=== PATIENT | male | born 1945 | race Caucasian/White ===

== ENCOUNTER 2021-10-31 16:24 | Emergency (ER) | payer MEDICARE, SELFPAY ==
[2021-10-31 16:51] VITALS: BP 149/97; PULSE 82; RESP 18; TEMP 37.7; O2SAT 97; BMI 28.5
--- NOTE | 2021-10-31 17:09 | ED.ABDPAIN ---
HPI - Abdominal Pain General Time Seen by Provider: 17:09 Date Seen: 10/31/21 Chief Complaint: Abdominal Pain Stated Complaint: LOWER LEFT ABDOMINAL PAIN Time Seen by Provider: 10/31/21 17:09 Source: patient, RN notes reviewed and old records reviewed Mode of arrival: ambulatory Limitations: no limitations History of Present Illness HPI narrative: Patient is a very pleasant 76-year-old male with history of polyp removal, most recent colonoscopy 2019, hypertension who comes to the emergency room with left lower quadrant pain. Patient notes the onset of this last evening. It is associated with mild nausea but no vomiting and no change in stools. Patient notes the pain definitely increase if he presses over this area. He does note that movement increases the discomfort as well. He has not taken any medications at this point. He denies fever or chills. He does know that he has a history of diverticulosis. No fever chills or COVID symptoms. Upon further discussion he also notes that he has had discomfort in his left low back and flank for approximately 1 week. He thought this was secondary to back problems as he has dealt with this for many years. MD elicited complaint: abdominal pain Pertinent past history: gastrointestinal bleeding (History of duodenal ulcer with hemorrhage) Onset (ago): hour(s) Pain Consistency: constant (Becoming constant.) Location: LLQ Severity: moderate Related Data Home Medications Medication Instructions Recorded Confirmed doxazosin 4 mg tablet 4 mg PO QDAY 08/02/21 10/31/21 losartan 50 mg tablet 50 mg PO QDAY 08/02/21 10/31/21 omeprazole 40 mg capsule,delayed 40 mg PO QDAY 08/02/21 10/31/21 release simvastatin 20 mg tablet 20 mg PO QDAY 08/02/21 10/31/21 Previous Rx's Medication Instructions Recorded ciprofloxacin HCl 500 mg tablet 500 mg PO BID #14 tabs 10/31/21 (Cipro) metronidazole 500 mg tablet 500 mg PO Q8H 7 days #21 tabs 10/31/21 Allergies Allergy/AdvReac Type Severity Reaction Status Date / Time clindamycin Allergy Mild rash Verified 08/06/21 11:14 Review of Systems Status of ROS Reports: 10 or more systems reviewed and unremarkable except as noted in History and below Const Denies: fever, chills or change in weight Eyes Denies: change in vision ENMT Denies: throat pain or difficulty swallowing Cardio Denies: chest pain or shortness of breath with exertion Resp Denies: shortness of breath or cough GI Reports: abdominal pain and nausea; Denies: vomiting, diarrhea, constipation, difficulty swallowing or blood in stool Denies: painful urination, urinary frequency, urinary urgency or blood in urine Musculo Reports: back pain; Denies: extremity pain Integ/Breast Denies: rash Neuro Denies: headache, numbness in extremities or weakness in extremities Endo Denies: excessive urination Pascual/Lymph Denies: easy bruising PFSH PFSH Social History Smoking Status: Never smoker Do you use any of these nicotine containing products: None Second hand tobacco smoke exposure: No How often do you have a drink containing alcohol: monthly or less How often do you have six or more drinks on one occasion: Never AUDIT-C Alcohol total score: 1 Non-prescribed substance use: denies use Exam Narrative: Exam Narrative: History of duodenal ulcer w/ hemorrhage. Abstracted [place] record. BPH (benign prostatic hyperplasia) w/ LUTS. Managed w/ doxazosin. Abstracted [place] record. Essential hypertension Uncontrolled in past. See scanned 03/29/18 [place] ED note. Hyperlipidemia Abstracted [place] record. Pulmonary nodule See scanned CT Chest. Tiny L upper lobe benign process. Abstracted [place] record. Allergic rhinitis Abstracted [place] record. GERD (gastroesophageal reflux disease) Abstracted [place] record. History of adenomatous polyp of colon 08/05/18 & prior. 3Y repeat surveillance. See scanned [place] report. Dysphonia See scanned [place] Videostroboscopy note. MORENITA (obstructive sleep apnea) Does not use CPAP. See scanned 07/24/05 [place] Sleep Study. Const: Vital Signs, click to edit/add: Vital Signs - 24 hr 10/31/21 16:51 Temperature 100 F H Pulse Rate [Pulse Oximeter] 82 Respiratory Rate 18 Blood Pressure [Ri ght Upper Arm] 149/97 H Pulse Oximetry 97 Oxygen Delivery Me thod Room Air Documenting provider has reviewed patient's vital signs: yes Common normals: no apparent distress, average body habitus, oriented x3, no limitations, healthy appearing and alert General appearance: cooperative, comfortable and well kempt HENMT: Common normals: normocephalic and head/scalp atraumatic Head and scalp: normocephalic and atraumatic Mouth: oral and palatal mucosa normal Throat: posterior oropharynx normal Eye: Common normals: PERRL General eye: normal appearance of both eyes Pupil: PERRL Neck & C-Spine: Common normals: full ROM and supple Resp: Common normals: normal respiratory effort and clear to auscultation bilaterally Effort & inspection: able to speak in complete sentences Auscultation: clear to auscultation bilaterally Cardio: Common normals: regular rate and regular rhythm Rate: regular rate Rhythm: regular rhythm GI: Common normals: soft to palpation Palpation: soft and tender Details: LLQ; no mass : Common normals: no CVA tenderness Bladder/kidney exam: no CVA tenderness Back & Pelvis: Common normals: no CVA tenderness Extremity: Common normals: normal to inspection Neuro: Common normals: oriented x3 Sensorium/orientation: alert Speech: speech normal Psych: Common normals: mental status grossly normal and thought process normal Appearance: well kempt Thought process: normal thought process Skin: Common normals: no rashes or lesions noted General skin exam: no rashes or lesions noted Course Course Hospital Course: Patient notes that since last evening he is experiencing left lower quadrant pain. Differential diagnosis does include hernia, kidney stone, diverticulitis, colitis, UTI. We will obtain CBC, comprehensive panel, CRP, urinalysis. Will plan on CT but will await urinalysis to ascertain if the use of contrast or not is appropriate. Reevaluation(s) Reevaluation #1: Patient notes that he is feeling better after Toradol. He is informed that he has a normal white count but an elevated CRP and that his urine is reassuring. We will proceed with the abdominal CT with contrast. Vital Signs Vital signs: Initial Vital Signs Temperature 100 F H 10/31/21 16:51 Temperature Source Temporal Artery Scan 10/31/21 16:51 Pulse Rate 82 10/31/21 16:51 Respiratory Rate 18 10/31/21 16:51 Blood Pressure 149/97 H 10/31/21 16:51 Blood Pressure Mean 114 10/31/21 16:51 Blood Pressure Position Supine 10/31/21 16:51 Pulse Oximetry 97 10/31/21 16:51 Oxygen Delivery Method 10/31/21 16:51 Vital Signs Temperature 100 F H 10/31/21 16:51 Pulse Rate 82 10/31/21 16:51 Respiratory Rate 18 10/31/21 16:51 Blood Pressure 149/97 H 10/31/21 16:51 Pulse Oximetry 97 10/31/21 16:51 Oxygen Delivery Method 10/31/21 16:51 Temperature 100 F H 10/31/21 16:51 Pulse Rate 82 10/31/21 16:51 Respiratory Rate 18 10/31/21 16:51 Blood Pressure 149/97 H 10/31/21 16:51 Pulse Oximetry 97 10/31/21 16:51 Oxygen Delivery Method 10/31/21 16:51 MDM - Abdominal Pain MDM Narrative Medical decision making narrative: 1. Diverticulitis-CT confirmed diverticulitis without evidence of perforation or fluid collection. Patient be treated Cipro 500 mg p.o. b.i.d. and Flagyl 500 mg p.o. t.i.d.. First dose of both medications given here tonight as are instant meds doses not have Flagyl. Recommend bland foods and recheck with primary clinic nearing the end of antibiotic regimen for 7 days. If patient has ongoing pain may wish to extend that to 10-14 days of antibiotics. 2. Abdominal pain-very responsive to Toradol. Patient's pain is coming back at this time. Will suggest the use of ibuprofen as needed at home. Will also give him small amount of Vicodin 5/325, 1-2 tabs p.o. q.4-6 hours p.r.n. number 12 with no refills out of instant meds. Suggest the use of a stool softener as this is a constipating medication. 3. Disposition-home with . Patient is able to take p.o. without difficulty. Return to the ER for further evaluation for vomiting, fever, increasing pain and as needed. Medical Records Attestation: I reviewed the patient's medical records. Lab Data Attestation: I reviewed the patient's lab results. Labs: Lab Results 10/31/21 10/31/21 10/31/21 Range/Units 17:10 17:42 17:42 WBC 8.62 (4.50-11.00) K/uL RBC 4.65 (4.30-5.90) m/uL Hgb 13.6 (13.5-17.5) gm/dL Hct 40.5 (37.0-53.0) % MCV 87 (80-100) fL MCH 29 (26-34) pg MCHC 34 (32-36) gm/dL RDW Coeff of Orion 13.0 (11.5-15.5) % Plt Count 140 (140-440) K/uL Neut % (Auto) 75.9 H (42.0-72.0) % Lymph % (Auto) 14.3 L (20-44) % [place] % (Auto) 8.9 (0.0-11.0) % Eos % (Auto) 0.5 (0.0-7.0) % Baso % (Auto) 0.3 (0.0-3.0) % Neut # (Auto) 6.50 (1.7-7.0) K/uL Lymph # (Auto) 1.20 (0.90-2.90) K/uL [place] # (Auto) 0.80 (0.00-0.90) K/UL Eos # (Auto) 0.04 (0.00-0.50) K/uL Baso # (Auto) 0.03 (0.00-0.30) K/uL Abs Immat Gran (auto) 0.01 (0.00-0.30) K/uL Sodium 137 (135-149) mmol/L Potassium 3.8 (3.6-5.1) mmol/L Chloride 104 (96-114) mmol/L Carbon Dioxide 24 (20-32) mmol/L BUN 13 (7-30) mg/dL Creatinine 1.1 (0.5-1.5) mg/dL Estimated Creat Clear 57.13 Estimated GFR 70 ml/min Glucose 101 (60-115) mg/dL Calcium 9.1 (8.4-10.6) mg/dL Total Bilirubin 0.7 (0.1-1.5) mg/dL AST 27 (12-35) U/L ALT 21 (4-50) U/L Alkaline Phosphatase 118 (40-150) U/L C-Reactive Protein 3.2 H (0.5-1.0) mg/dL Total Protein 7.8 (6.0-8.3) g/dL Albumin 4.7 (3.3-5.0) g/dL Urine Color Yellow (Yellow) Urine Appearance Clear (Clear) Urine pH 5.5 (5.0-8.5) Ur Specific [place] 1.010 (1.000-1.030) Urine Protein Negative (Negative) Urine Glucose (UA) Negative (Negative) Urine Ketones Negative (Negative) Urine Blood 1+ A (Negative) Urine Nitrite Negative (Negative) Urine Bilirubin Negative (Negative) Urine Urobilinogen 0.2 (0.2-1.0) Ur Leukocyte Esterase Negative (Negative) Urine RBC 2-5 A (0-2) Urine WBC 0-2 (0-5) Ur Squamous Epith Cells None (None-Few) Urine Bacteria None (None) Imaging Data CT scan - abdomen: Attestation: I have reviewed the pertinent imaging results. My impression: Thickening of the sigmoid colon. No free air. Radiologist's impression: ?Diverticulitis of the distal descending and proximal sigmoid colon. No drainable fluid collection or extraluminal air. Discharge Plan Discharge Clinical Impression: Diverticulitis Patient Disposition: Home, Self-Care Condition: Improved Additional Instructions: For pain: You may use ibuprofen as needed. For pain not relieved by ibuprofen you may use [place] also known as hydrocodone or Vicodin. This may cause constipation so you may want to take it with a stool softener. For antibiotics we will have a use Flagyl 500 mg 3 times a day. Cipro 500 mg twice a day. Return to the emergency room for worsening symptoms. Follow up with primary MD or 1 of his partners for recheck at the end of your antibiotic dosing. Make sure to schedule for colonoscopy in the near future to have this area checked out. Prescriptions: New metronidazole 500 mg tablet 500 mg PO Q8H 7 Days Qty: 21 0RF ciprofloxacin HCl [Cipro] 500 mg tablet 500 mg PO BID Qty: 14 0RF No Action losartan 50 mg tablet 50 mg PO QDAY omeprazole 40 mg capsule,delayed release(DR/EC) 40 mg PO QDAY doxazosin 4 mg tablet 4 mg PO QDAY simvastatin 20 mg tablet 20 mg PO QDAY Follow Up/Referrals: Mauri Aragon MD [Primary Care Provider] - Stand Alone Forms: [facility] Info Instructions
[2021-10-31] MEDS: KETOROLAC 15 MG/ML inj IVP (17:46)
[2021-10-31] MEDS: 0.9 % SODIUM CHLORIDE 1000 ml 1,000 ML IV (17:46)
[2021-10-31 17:54] LABS: Basophils Absolute Auto 0.03 K/uL (0.00-0.30); Basophils Percent Auto 0.3 % (0.0-3.0); Eosinophils Absolute Auto 0.04 K/uL (0.00-0.50); Eosinophils Percent Auto 0.5 % (0.0-7.0); Hematocrit 40.5 % (37.0-53.0); Hemoglobin* 13.6 gm/dL (13.5-17.5); Immature Granulocytes Abs Auto 0.01 K/uL (0.00-0.30); Lymphocytes Percent Auto 14.3 % (20-44); Mean Corpuscular HGB Conc 34 gm/dL (32-36); Mean Corpuscular Hemoglobin 29 pg (26-34); Mean Corpuscular Volume 87 fL (80-100); Monocytes Percent Auto 8.9 % (0.0-11.0); Neutrophils Percent Auto 75.9 % (42.0-72.0); Platelet Count* 140 K/uL (140-440); Red Blood Count 4.65 m/uL (4.30-5.90); White Blood Count* 8.62 K/uL (4.50-11.00)
[2021-10-31 18:04] LABS: Appearance Urine Clear (Clear); Bilirubin Urine Negative (Negative); Blood Urine 1+ (Negative); Color Urine Yellow (Yellow); Glucose Urine Negative (Negative); Ketones Urine Negative (Negative); Leukocyte Esterase Urine Negative (Negative); Nitrite Urine Negative (Negative); Protein Urine Negative (Negative); Urobilinogen Urine 0.2 (0.2-1.0); pH Urine 5.5 (5.0-8.5)
[2021-10-31 18:09] LABS: Albumin* 4.7 g/dL (3.3-5.0); Chloride* 104 mmol/L (96-114)
[2021-10-31 18:10] LABS: Potassium* 3.8 mmol/L (3.6-5.1); Slide Review Reflex No; Sodium* 137 mmol/L (135-149)
[2021-10-31 18:12] LABS: Creatinine* 1.1 mg/dL (0.5-1.5); Est. Creatinine Clearance* 57.13; Estimated Glomerular Filt Rate 70 ml/min
[2021-10-31 18:13] LABS: Alanine Aminotransferase* 21 U/L (4-50); Alkaline Phosphatase* 118 U/L (40-150); Aspartate Amino Transferase* 27 U/L (12-35); Bilirubin Total* 0.7 mg/dL (0.1-1.5); Blood Urea Nitrogen* 13 mg/dL (7-30); Calcium* 9.1 mg/dL (8.4-10.6); Carbon Dioxide* 24 mmol/L (20-32); Glucose* 101 mg/dL (60-115); Total Protein* 7.8 g/dL (6.0-8.3)
[2021-10-31 18:15] LABS: WBC Urine 0-2 (0-5)
[2021-10-31 18:16] LABS: C Reactive Protein* 3.2 mg/dL (0.5-1.0)
--- NOTE | 2021-10-31 18:22 | CRLHL7_ITS ---
For Patients: As a result of the Century Cures Act, medical imaging exams and procedure reports are released immediately into your electronic medical record. You may view this report before your referring provider. If you have questions, please contact your health care provider. INDICATION: Left lower quadrant pain. TECHNIQUE: CT abdomen and pelvis acquired with 95 mL Isovue 370 IV contrast. Coronal and sagittal reformats were generated. COMPARISON: None. FINDINGS: Lower chest: Linear bibasilar opacities are suggestive of scarring. Small sliding hiatal hernia. Liver: Mildly decreased attenuation could indicate steatosis. Gallbladder and bile ducts: Unremarkable. No stones or inflammation. No biliary dilation. Spleen: Unremarkable. Splenule in the hilum. Pancreas: Unremarkable. Adrenal glands: Unremarkable. No nodules. Kidneys and Ureters: Unremarkable. No suspicious masses, stones, or hydronephrosis. Lymph Nodes and Retroperitoneum: Unremarkable. Vasculature: Small amount of scattered atherosclerotic calcifications. No aneurysmal dilation. GI tract: Numerous diverticula project from the colon. A short segment of distal descending and proximal sigmoid colon shows mucosal thickening, with adjacent mesenteric stranding. Bowel loops are normal in caliber. Normal appendix. Peritoneum/Abdominal Wall: Unremarkable. No mass or infiltration. No free air or free fluid. Fat containing left inguinal hernia. Pelvic Viscera: Unremarkable. Bladder: Unremarkable. 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 Multilevel degenerative changes. No aggressive appearing lytic or blastic lesions. IMPRESSION: 1. Diverticulitis of the distal descending and proximal sigmoid colon. No drainable fluid collection or extraluminal air. 2. Chronic changes as above. Please note that all CT scans at this facility use dose modulation, iterative reconstruction, and/or weight-based dosing when appropriate to reduce radiation dose to as low as reasonably achievable. Dictated by Hugo So MD @ 10/31/2021 7:40:12 PM (Electronically Signed)
--- NOTE | 2021-10-31 18:24 | ED.NURSE ---
after given the toradol 15 mg IVP patient is feeling better rated 1/10 scale if no pressure to abdomen and if pressure to LLQ would rate 3/10 scale pain is much better.
[2021-10-31] MEDS: CIPROFLOXACIN 500 MG TABLET PO (20:09)
[2021-10-31] MEDS: metroNIDAZOLE 500 MG TABLET PO (20:09)
[2021-10-31 20:14] VITALS: BP 136/88; PULSE 76; RESP 16; TEMP 37.2
--- OUTSIDE RECORDS SUMMARY | 2021-11-04 10:34 | XMS_ITS | Encounter Summary ---
:1945 Author Organization [facility] Address Formerly [facility] [place] [address] Care Team Providers Name Role Phone Raghavendra Deras MD Primary Care Provider Unavailable Raghavendra Deras MD Unavailable Unavailable Reason for Visit Reason Onset Date Comments Refill Request 03/16/2019 Encounter Details Date Type Department Care Team Description 03/16/2019 MyC Refill [facility] Raghavendra Deras Ra, MD Refill Request [address] [phone] Social History Tobacco Use Types Packs/Day Years Used Date Former Smoker Cigarettes 0.5 20 Quit: 02/05/18 85 Smokeless Tobacco: Never Used Alcohol Use Standard Drinks/Week Comments Yes 1.7 (1 standard drink = 0.6 oz pure alco hol) occasional Alcohol Habits Answer Date Recorded How often do you have a drink containing alcohol? Not asked How many drinks containing alcohol do you have on a typical Not asked day when you are drinking? How often do you have six or more drinks on one occasion? 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
--- OUTSIDE RECORDS SUMMARY | 2021-11-04 10:34 | XMS_ITS | Encounter Summary ---
:1945 Author Organization [facility] Address Pending sale to [facility] 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 losartan (COZAAR) 50 MG tablet [Pharmacy Med Name: LOSARTAN POTASSIUM 50 MG Tablet] Last Written Prescription Date: 04/15/2018 Last Fill Quantity: 90 tablet, # refills: 1 Last office visit: 05/13/2018 with prescribing provider: Braeden Future Office Visit: 90 tablet 1 Sig: TAKE 1 TABLET EVERY DAY Angiotensin-II Receptors Failed - 09/26/2018 4:20 PM Failed - Last blood pressure under 140/90 in past 12 months BP Readings from Last 3 Encounters: 09/04/18 (!) 140/82 08/05/18 104/69 05/13/18 112/72 Passed - Recent (12 mo) or future (30 days) visit within the authorizing provider's specialty Patient had office visit in the last 12 months or has a visit in the next 30 days with authorizing provider or within the authorizing provider's specialty. See Patient Info tab in inbasket, or Choose Columns in Meds & Orders section of the refill encounter. Passed - Medication is active on med list Passed - Patient is age 18 or older Passed - Normal serum creatinine on file in past 12 months Recent Labs Lab Test 05/13/18 1532 05/26/16 1446 CR 1.12 < > -- CREAT -- -- 1.0 < > = values in this interval not displayed. Passed - Normal serum potassium on file in past 12 months Recent Labs Lab Test 05/13/18 1532 POTASSIUM 4.2 documented in this encounter Plan of Treatment Not on filedocumented as of this encounter Visit Diagnoses Diagnosis Essential hypertension Unspecified essential hypertension documented in this encounter Care Teams Marketing Agent Relationship Specialty Start Date End Date Raghavendra Deras MD PCP - General Family Practice 10/07/13 Raghavendra Deras MD Assigned PCP 01/23/16 05/14/21 documented as of this encounter
--- OUTSIDE RECORDS SUMMARY | 2021-11-04 10:34 | XMS_ITS | Encounter Summary ---
:1945 Author Organization [place] Address [address] [facility] 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
--- OUTSIDE RECORDS SUMMARY | 2021-11-04 10:34 | XMS_ITS | Encounter Summary ---
:1945 Author Organization [place] Address [address] 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
--- OUTSIDE RECORDS SUMMARY | 2021-11-04 10:34 | XMS_ITS | Encounter Summary ---
:1945 Author Organization [facility] Address [address] [place] [address]. 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 Initial BP: There were no vitals taken for this visit. Data Unavailable K SANDER documented in this encounter Plan of Treatment Not on filedocumented as of this encounter Visit Diagnoses Diagnosis BP check - Primary Screening for hypertension documented in this encounter Care Teams Hand Thermal Cutter Relationship Specialty Start Date End Date Raghavendra Deras MD PCP - General Family Practice 10/07/13 Raghavendra Deras MD Assigned PCP 01/23/16 05/14/21 documented as of this encounter
--- OUTSIDE RECORDS SUMMARY | 2021-11-04 10:34 | XMS_ITS | Encounter Summary ---
:1945 Author Organization [place] Address [address] [facility] [address] Care Team Providers Name Role Phone Raghavendra Deras MD Primary Care Provider Unavailable Raghavendra Deras MD Unavailable Unavailable Reason for Visit Auth/Cert Specialty Diagnoses / Procedures Referred By Contact Refer red To Contact Gastroenterology Diagnoses PERSONAL HISTORY OF POLYPS Endoscopy Procedures COLONOSCOPY [address] [place] [phone] Phone: Referral ID Status Reason Start Date Expiration Date Visits Requ ested Visits Authorized [id number] 1 1 Encounter Details Date Type Department Care Team Description 08/05/2018 Surgery [facility] Arthur Fajardo MD COLONOSCOPY, FLEXIBLE, [facility] Endoscopy COLON RECTAL SURG WITH LESION REMOVAL [address] [facility] [address] [place] [place] [phone] [address] [phone] [address] [place] [id number] (Wo rk) Surgery Details Date/Time Status Location OR Service Patient Class Case Case Trauma Class Type Case? 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 documented as of this encounter Last Filed Vital Signs Vital Sign Reading Time Taken Comments Blood Pressure 135/66 08/05/2018 11:23 AM CDT Pulse 67 08/05/2018 11:23 AM CDT Temperature - - Respiratory Rate 18 08/05/2018 11:23 AM CDT Oxygen Saturation 97% 08/05/2018 11:23 AM CDT Inhaled Oxygen Concentration - - Weight 90.7 kg (200 lb) 08/05/2018 11:23 AM CDT Height 175.3 cm (5' 9) 08/05/2018 11:23 AM CDT Body Mass Index 29.53 08/05/2018 11:23 AM CDT documented in this encounter Medications at Time of Discharge Medication Sig Dispensed Refills Start Date End Date doxazosin (CARDURA) 4 MG Take 1 tablet (4 90 tablet 3 06/14 tabletIndications: Essential mg) by mouth At hypertension Bedtime fish oil-omega-3 fatty acids Take 2 capsules 90 capsule 0 1000 MG capsule (2 g) by mouth daily PT IS NOW TAKING 1 TAB PER DAY hydrochlorothiazide Take 1 tablet 30 tablet 0 05/13/2018 (HYDRODIURIL) 12.5 MG (12.5 mg) by tabletIndications: Essential mouth daily hypertension Multiple Vitamins-Minerals Take 1 tablet by 0 (CENTRUM SILVER ULTRA MENS mouth daily PO) omeprazole (PRILOSEC) 40 MG Take 1 capsule 90 capsule 2 07/07 capsuleIndications: (40 mg) by mouth History of peptic ulcer daily disease, Gastroesophageal reflux disease, esophagitis presence not specified losartan (COZAAR) 50 MG Take 1 tablet 90 tablet 1 9 09/26/2018 tabletIndications: Essential (50 mg) by mouth hypertension daily simvastatin (ZOCOR) 20 MG Take 1 tablet 90 tablet 3 2 019 03/17/2019 tabletIndications: (20 mg) by mouth Hyperlipidemia LDL goal <130 At Bedtime documented as of this encounter H&P Notes Arthur Fajardo MD - 08/05/2018 11:57 AM CDT Pre-Endoscopy History and Physical Lo Neumann Date of : 1945 Age: [age] year old Date of Procedure: 08/05/2018 Primary care provider: Raghavendra Deras Type of Endoscopy: colonoscopy Reason for Procedure: screening Type of Anesthesia Anticipated: Moderate Sedation HPI: Lo is a 73 year old male who will be undergoing the above procedure. A history and physical has been performed. The patient's medications and allergies have been reviewed. The risks and benefits of the procedure including the risk of bleeding, perforation, and missed lesions as well as the sedation options and risks were discussed with the patient. All questions were answered and informed consent was obtained. Allergies Allergen Reactions ??? Mometasone Furoate Monohydrate gets bloody noses from Nasonex ??? Quinazolines get bloody noses from Flomax No current facility-administered medications for this encounter. Medications Prior to Admission Medication Sig Dispense Refill Last Dose ??? doxazosin (CARDURA) 4 MG tablet Take 1 tablet (4 mg) by mouth At Bedtime 90 tablet 3 08/04/2018 at Unknown time ??? fish oil-omega-3 fatty acids 1000 MG capsule Take 2 capsules (2 g) by mouth daily PT IS NOW TAKING 1 TAB PER DAY 90 capsule 08/04/2018 at Unknown time ??? hydrochlorothiazide (HYDRODIURIL) 12.5 MG tablet Take 1 tablet (12.5 mg) by mouth daily 30 tablet 0 08/04/2018 at Unknown time ??? losartan (COZAAR) 50 MG tablet Take 1 tablet (50 mg) by mouth daily 90 tablet 1 08/05/2018 at Unknown time ??? Multiple Vitamins-Minerals (CENTRUM SILVER ULTRA MENS PO) Take 1 tablet by mouth daily Past Weekat Unknown time ??? omeprazole (PRILOSEC) [address] capsule Take 1 capsule (40 mg) by mouth daily 90 capsule 2 08/04/2018 at Unknown time ??? simvastatin (ZOCOR) 20 MG tablet Take 1 tablet (20 mg) by mouth At Bedtime 90 tablet 3 08/04/2018at Unknown time Patient Active Problem List Diagnosis ??? Actinic keratosis ??? Allergic rhinitis ??? Esophageal reflux ??? SCC (squamous cell carcinoma), face ??? History of peptic ulcer disease ??? Essential hypertension ??? Advanced directives, counseling/discussion ??? Adenomatous polyp of colon ??? Benign prostatic hyperplasia with lower urinary tract symptoms ? ? Hyperlipidemia LDL goal <130 Past Medical History: Diagnosis Date ??? Acute duodenal ulcer with hemorrhage, without mention of obstruction 1997 ??? Arthritis ??? BPH (benign prostatic hyperplasia) ??? Essential hypertension, benign 12/30/2002 ? ? Hyperlipidemia LDL goal < 130 04/15/2014 ? ? Hypertension goal BP (blood pressure) < 140/90 06/24/2010 ??? Pulmonary nodule CT reassuring 2008 ??? SCC (squamous cell carcinoma), face 03/16/2008 Past Surgical History: Procedure Laterality Date ??? COLONOSCOPY 06/05/2013 Procedure: COLONOSCOPY; Surgeon: Matthew Richardson MD; Location: [facility] ??? [facility] COLONOSCOPY THRU STOMA, DIAGNOSTIC 2002 Social History Tobacco Use ??? Smoking status: Former Smoker Packs/day: 0.50 Years: 20.00 Pack years: 10.00 Types: Cigarettes Last attempt to quit: 02/06/1984 Years since quittin.5 ??? Smokeless tobacco: Never Used Substance Use Topics ??? Alcohol use: Yes Alcohol/week: 1.0 oz Comment: occasional Family History Problem Relation Age of Onset ??? Diabetes Maternal Grandmother ??? Cerebrovascular Disease Maternal Grandmother older, 70's or 80's ??? Prostate Cancer Paternal Grandfather not sure ??? Heart Disease Brother stent - 66 ??? Prostate Cancer Brother no cancer, but a produre due reduce the prostate ??? Cancer Sister bone caner/lung cancer ??? Family History Negative Mother ??? Family History Negative Father ??? C.A.D. Maternal Uncle [place] ??? Cancer - colorectal Maternal Uncle ??? Prostate Cancer Other Cousin PHYSICAL EXAM: BP 135/66 Pulse 67 Resp 18 Ht 1.753 m (5' 9) Wt 90.7 kg (200 lb) SpO2 97% BMI 29.53 kg/m?? Estimated body mass index is 29.53 kg/m?? as calculated from the following: Height as of this encounter: 1.753 m (5' 9). Weight as of this encounter: 90.7 kg (200 lb). Mental status - alert and oriented RESP: lungs clear CV: RRR AIRWAY EXAM: Mallampatti Class II (visualization of the soft palate, fauces, and uvula) IMPRESSION ASA Class 2 - Mild systemic disease Signed Electronically by: Arthur Fajardo August 05, 2018 Colorectal Surgery [phone] (office) [phone] (pager) [email or web address] documented in this encounter Plan of Treatment Not on filedocumented as of this encounter Procedures Procedure Name Priority Date/Time Associated Comments Diagnosis SURGICAL PATHOLOGY Routine 08/05/2018 12:05 Resul ts for this EXAM PM CDT procedure are i n the results section. COLONOSCOPY, 08/05/2018 11:53 PERSONAL HISTORY OF FLEXIBLE, WITH LESION AM CDT POLYPS REMOVAL USING SNARE COLONOSCOPY Routine 08/05/2018 11:51 Results for this AM CDT procedure are i n the results section. documented in this encounter Results Surgical pathology exam (08/05/2018 12:05 PM CDT) Component Value Ref Test Analysis Performed At [facility] Range Method Time Signature Copath Report Patient Name: LO NEUMANN MR#: [id number] Specimen #: [id number] Collected: 08/05/2018 Received: 08/05/2018 Reported: 08/06/2018 15:02 Ordering Phy(s): ARTHUR FAJARDO For improved result formatting, select 'View Enhanced Report Format' under Linked Documents section. SPECIMEN(S): A: Colon polyp, ascending B: Rectal polyp FINAL DIAGNOSIS: A: Colon, ascending, polypectomy - Tubular adenomas, no evidence of high-grade dysplasia or i nvasive malignancy B: Rectum, polypectomy - Tubular adenoma - No evidence of high-grade dysplasia or invasive malignancy Electronically signed out by: Yunior Parikh M.D. CLINICAL HISTORY: Personal history of polyps GROSS: A: The specimen is received in formalin with proper patient identification labeled ascending colon polyps x2. ??The specimen consists of two purvis tissue fragments william suring up to 0.2 cm each. ??The specimen is entirely submitted in one cassette. B: The specimen is received in formalin with proper patient identification labeled rectum polyp. ??The specimen consists of purvis polyp measuring up to 0.3 cm. ??The specimen is entirely submitted in one cassette. (Dictated by: Alireza Gordon 08/05/2018 02:23 PM) MICROSCOPIC: Felicity Galeana Microscopic performed The technical component of this testing was completed at the [facility], with the professional compo nent performed at the [facility], [address] [place] [address] ??[phone] ([phone]) CPT Codes: A: 88595-VW6 B: 86597-GM4 COLLECTION SITE: Client: [facility] Location: [place] (S) Specimen (Source) Anatomical Collection Method Collection Time Re ceived Time Location / / Volume Laterality Polyp LARGE INTESTINE 08/05/2018 12:05 (morphologic PART / Unknown PM CDT abnormality) Comment: Cold snare Polyp (morphologic RECTUM STRUCTURE / Unknown 08/06/19 19 12:11 PM CDT abnormality) Comment: Cold snare Arthur MOLINA - SOHAIL Performing Organization Address City/State/ZIP Code Phon e Number [place] COLONOSCOPY (08/05/2018 11:51 AM CDT) Component Value Ref Test Analysis Performed At [facility] Range Method Time Signature COLONOSCOPY [facility] RADIOLOGY [facility] Endoscopy Department RESULTS Patient Name: Lo Neumann ?Procedure Date: 08/05 11:51 AM ? Accou nt Number: [id number] Date of : 1945 ?Admit Type: Out patient Age: 73 ? Room: 1 ? Note Status: Finalized ?Attending MD: Arthur Fajardo MD Total Sedation Time: ?I nstrument Name: [id number] AdultColonoscope Procedure: ?Colonoscopy Indications: ?High ri sk colon cancer surveillance: Personal ?history of colonic po lyps Providers: ?Arthur Fajardo MD, Alana Jose RN Referring MD: ? Raghavendra Deras MD Medicines: ?Midazolam 2 mg IV, Fentanyl 100 micrograms IV. The ? provided 15 minutes of 1:1 continuous bedside ?monitoring. Complications: ?No immediate complications. Procedure: ?Pre-Anesthesia Assessment: ?- Prior to the procedure, a History and Physical ?was performed, and patient medications and ?allergies were reviewed. The patient is competent. ?The risks and benefits of the procedure and the ?sedation options and risks were discussed with the ?patient. All questions were answered and informed ?consent was obtained. Patient identification and ?proposed procedure were verified by the physician ?in the endoscopy suite. Mental Status Examination: ?alert and oriented. Airway Examination: normal ?oropharyngeal airway and neck mobility. Respiratory ?Examination: clear to auscultation. CV Examination: ?normal. Prophylactic Antibiotics: The patient does ?not require prophylactic antibiotics. Prior ?Anticoagulants: The patient has taken no previous ?anticoagulant or antiplatelet agents. ASA Grade ?Assessment: II - A patient with mild systemic ?disease. After reviewing the risks and benefits, ?the patient was deemed in satisfactory condition to ?undergo the procedure. The anesthesia plan was to ?use moderate sedation / analgesia (conscious ?sedation). Immediately prior to administration of ?medications, the patient was re-assessed for ?adequacy to receive sedatives. The heart rate, ?respiratory rate, oxygen saturations, blood ?pressure, adequacy of pulmonary ventilation, and ?response to care were monitored throughout the ?procedure. The physical status of the patient was ?re-assessed after the procedure. ?After obtaining informed consent, the colonoscope ?was passed under direct vision. Throughout the ?procedure, the patient's blood pressure, pulse, and ?oxygen saturations were monitored continuously. The ?Colonoscope was introduced through the anus and ?advanced to the cecum, identified by appendiceal ?orifice and ileocecal valve. The colonoscopy was ?performed without difficulty. The patient tolerated ?the procedure well. The quality of the bowel ?preparation was excellent and adequate to identify ?polyps. ? Findings: ? The perianal and digital rectal examinations were nor mal. Pertinent ? negatives include normal sphincte r tone and no palpable rectal lesions. ? Two sessile polyps were found in the ascending colon. The polyps were 3 ? to 4 mm in size. These polyps wer e removed with a cold snare. Resection ? and retrieval were complete. ? A 4 mm polyp was found in the rectum. The polyp was pedunculated. The ? polyp was removed with a cold snare. Resection and re trieval were ? complete. ? Multiple small and large-mouthed divertic peyton were found in the sigmoid ? colon. There was no evidence of diverticular bleeding . ? The exam was otherwise without abnormality on d irect and retroflexion ? views. ? Impression: ? - Two 3 to 4 mm polyps in the ascending colon, ?removed with a cold snare. Resected and retrieved. ?- One 4 mm polyp (adenomatous) in the rectum, ?removed with a cold snare. Resected and retrieved. ?- Diverticulosis in the sigmoid colon. There was no ?evidence of diverticu lar bleeding. ?- The examination was otherwise normal on direct ?and retroflexion view s. Recommendation: ? - Patient has a contact num jenna available for ?emergencies. The signs and symptoms of potential ?delayed complications were discussed with the ?patient. Return to normal activities tomorrow. ?Written discharge instructions were provided to the ?patient. ?- Resume previous t. ?- Continue present me dications. ?- Await pathology res ults. ?- Repeat colonoscopy in 3 years for surveillance. ? Procedure Code(s): ? --- Professional --- ? 87255, Colonoscopy, flexible; with removal of tumor (s), polyp(s), or ? other lesion(s) by snare technique Diagnosis Code(s): ? --- Professional --- ? K57.30, Diverticulosi s of large intestine without perforation or abscess ? without bleeding ? D12.8, Benign neoplasm of rectum ? D12.2, Benign neoplasm of ascending colon ? Z86.010, Personal history of colonic polyps CPT copyright 2017 [employer]. All rights reserved. The codes documented in this report are prelimin sanaz and upon pre coder review may be revised to meet current compliance requirements. Arthur Fajardo MD 08/05/2018 12:14:14 PM I was physically present for the entire viewing portion of t he exam. Arthur Fajardo MD Number of Addenda: 0 Note Initiated On: 08/05/2018 11:51 AM MRN: ?[id number] Procedure Date: ? 08/05/2018 11:51:36 AM Scope Withdrawal Time: 0 hours 8 minutes 2 seconds Total Procedure Duration: 0 hours 9 minutes 58 seconds Estimated Blood Loss: ? Scope In: 11:58:46 AM Scope Out: 12:08:44 PM Specimen (Source) Anatomical Collection Method Collection Time Re ceived Time Location / / Volume Laterality 08/05/2018 11:51 AM CDT Raghavendra Deras MD PROCEDURES Performing Organization Address City/State/ZIP Code Phon e Number RADIOLOGY RESULTS documented in this encounter Visit Diagnoses Not on filedocumented in this encounter Administered Medications Inactive Administered Medications - up to 3 most recent administrations Medication Order MAR Action Action Date Dose Rate Site diphenhydrAMINE (BENADRYL) capsule 25 mg 25 mg, Oral, EVERY 4 HOURS PRN, itching, Starting on M on 08/05/18 at 1246, Post-procedure diphenhydrAMINE (BENADRYL) injection 25 mg 25 mg, Intravenous, EVERY 4 HOURS PRN, i tching, Starting on 08/05/18 at 1246, Use only if patient cannot take oral. For ordered IV doses 1-50 mg, give IV Push undiluted. Give each 25mg over a minimum of 1 minute. Extend in non-emergency, Post-procedure fentaNYL (PF) (SUBLIMAZE) injection Given 08/05/2018 11:57 AM CDT 100 mcg PRN, Administer over 3-5 Minutes, Starting on Sun08/05/18 at 1157, Intra-procedure lidocaine (LMX4) cream Topical, EVERY 1 HOUR PRN, pain, with VA D insertion or accessing implanted port., Starting on Sun08/05/18 at 1211, Do NOT g deepa if patient has a history of allergy to any local anesthetic or any anupam prod uct. Apply at least 30 minutes prior to VAD insertion or port access. In divided dos es as needed for size of site for insertion with MAX Dose: 2.5 g (?? of 5 g tube), Pre-procedure lidocaine 1 % 0.1-1 mL 0.1-1 mL, Other, EVERY 1 HOUR PRN, mild pain with VAD insertion., Starting on Sun08/05/18 at 1211, Do NOT give if patient has a history o f allergy to any local anesthetic or any anupam product. MAX dose 1 mL subcu taneous OR intradermal in divided doses as needed for VAD insertion., Pre-proced ure midazolam (VERSED) injection Given 08/05/2018 11:59 AM CDT 1 mg Administer over 2 Minutes, PRN, Starting on Sun08/05/18 at 1157, Intra-procedure Given 08/05/2018 11:57 AM CDT 1 mg ondansetron (ZOFRAN) injection 4 mg 4 mg, Intravenous, ONCE PRN, nausea, vomiting, Adminis ter over 2-5 Minutes, Starting on Sun08/05/18 at 1211, For 1 do se, Give in ENDO pre procedure prep area. Irritant. For ordered IV doses 0.1-4 mg, give IV Push undiluted over 2-5 minutes., Pre-procedure ondansetron (ZOFRAN) injection 4 mg 4 mg, Intravenous, EVERY 6 HOURS PRN, nausea, vomiting , Administer over 2-5 Minutes, Starting on Sun08/05/18 at 1246, This is Step 1 of nausea and vomiting management. If nausea not resolved in 15 minutes, go t o Step 2 prochlorperazine (COMPAZINE). Irritant. For ordered IV do ses 0.1-4 mg, give IV Push undiluted over 2-5 minutes., Post-procedure ondansetron (ZOFRAN-ODT) ODT tab 4 mg 4 mg, Oral, EVERY 6 HOURS PRN, nausea, v omiting, Starting on Sun08/05/18 at 1246, This is Step 1 of nausea and vomiting management. If n ausea not resolved in 15 minutes, go to Step 2 prochlorperazine (COMPAZINE). Do not push through foil backing. Peel back foil and gently remove. Place on to ngue immediately. Administration with liquid unnecessary W ith dry hands, peel back foil backing and gently remove tablet; do not push oral d isintegrating tablet through foil backing; administer immediately on tongue and oral disintegrati ng tablet dissolves in seconds; then swallow with saliva; liquid not required ., Post-procedure prochlorperazine (COMPAZINE) injection 5 mg 5 mg, Intravenous, EVERY 6 HOURS PRN, nausea, vomiting , Administer over 1-2 Minutes, Starting on Sun08/05/18 at 1246, This is Step 2 of nausea and vomiting management. If nausea not resolved in 15 minutes, give metoclopramide (REGLAN) if ordered (step 3 of nausea and vomiting m anagement) For ordered IV doses 0.1-10 mg, give IV Push undiluted. Each 5mg over 1 minute., Post- procedure prochlorperazine (COMPAZINE) tablet 5 mg 5 mg, Oral, EVERY 6 HOURS PRN, nausea, v omiting, Starting on Sun08/05/18 at 1246, This is Step 2 of nausea and vomiting management. If n ausea not resolved in 15 minutes, give metoclopramide (REGLAN) if ordered (step 3 of nausea and vomiting management), Post-procedure simethicone 133mg/2mL oral suspension Given 08/05/2018 12:02 PM CDT 1 mL PRN, Starting on Sun08/05/18 at 1202, Intra-procedure sodium chloride (PF) 0.9% PF flush 3 mL 3 mL, Intracatheter, EVERY 1 MIN PRN, li ne flush, for peripheral IV flush post IV meds, Starting on Sun08/05/18 at 1211, Pre-procedure sodium chloride (PF) 0.9% PF flush 3 mL 3 mL, Intracatheter, EVERY 8 HOURS, Firs t dose on Sun08/05/18 at 1215, And Q1H PRN, to lock peripheral IV dormant line., Pre-procedure documented in this encounter Active and Recently Administered Medications Times are shown in CDT. Scheduled Medication Order 08/03/2018 08/04/2018 08/05/2018 0.9% sodium chloride BOLUS 1300 (Canceled Entry - Provider: Orders Generic Provider - Comment: Automatically canceled at discontinue of medication order) Intravenous, 250 mL, ONCE, at 250 mL/hr, Administer over 1 Hours, Sun08/05/18 at 1300, For 1 dose, If systolic blood pressure less than 100 or patient has a headache, Post-procedure sodium chloride (PF) 0.9% PF flush 3 mL 1215 (Canceled Entry - Provider: Orders Generic Provider - Comment: Automatically canceled at discontinue of medication order) 3 mL, Intracatheter, EVERY 8 HOURS, Firs t dose on Sun08/05/18 at 1215, And Q1H PRN, to lock peripheral IV dormant line., Pre-procedure PRN Medication Order 08/03/2018 08/04/2018 08/05/2018 diphenhydrAMINE (BENADRYL) capsule 25 mg(Linked Group 1) 25 mg, Oral, EVERY 4 HOURS PRN, itching, Starting Sun08/05/18 at 1246, Post-procedure diphenhydrAMINE (BENADRYL) injection 25 mg(Linked Group 1) 25 mg, Intravenous, EVERY 4 HOURS PRN, i tching, Starting Sun08/05/18 at 1246, Use only if patient cannot take oral. For ordered IV doses 1-50 mg, give IV Push undiluted. Give each 25mg over a minimum of 1 minute. Extend in non-emergency, Post-procedure fentaNYL (PF) (SUBLIMAZE) injection 1157 (Given - Provider: Alana Jose RN) Administer over 3-5 Minutes, PRN, Starting Sun08/05/18 at 115 7, Intra-procedure flumazenil (ROMAZICON) injection 0.2 mg 0.2 mg, Intravenous, EVERY 1 MIN PRN, be nzodiazepine reversal, over sedation, Administer over 1 Minutes, Starting Sun08/05/18 at 1246, For 12 hours, Give over 15 seconds. If inadequate response after 45 seconds, may repeat up to a MAX total do se of 1 mg. Continue monitoring until discharge criteria are met for a minimum of 2 hours Irritant. For ordered IV doses 0.1-1 mg, give IV Push undiluted. Administer each 0.2mg over 15 seconds., Post-procedure lidocaine (LMX4) cream Topical, EVERY 1 HOUR PRN, pain, with VA D insertion or accessing implanted port., Starting Sun08/05/18 at 1211, Do NOT give if patient has a history of allergy to any local anesthetic or any anupam prod uct. Apply at least 30 minutes prior to VAD insertion or port access. In divided doses as needed for size of site for insertion with MAX Dose: 2.5 g (?? of 5 g tube), Pre-procedure lidocaine 1 % 0.1-1 mL 0.1-1 mL, Other, EVERY 1 HOUR PRN, mild pain with VAD insertion., Starting Sun08/05/18 at 1211, Do NOT give if patient has a history of allergy to any local anesthetic or any anupam product. MAX dose 1 mL subcutaneous OR intradermal in divide d doses as needed for VAD insertion., Pre-procedure May continue current IV fluid if patient has IV fluids infusing until discharge. CONTINUOUS PRN, Starting Sun08/05/18 at 1 246, Until Sun08/05/18 at 1447, Post-procedure midazolam (VERSED) injection 115 7 (Given - Provider: Alana Jose, RN)1159 (Given - Provider: Alana Jose RN) Administer over 2 Minutes, PRN, Starting Sun08/05/18 at 1157, Int ra-procedure naloxone (NARCAN) injection 0.1-0.4 mg 0.1-0.4 mg, Intravenous, EVERY 2 MIN PRN , opioid reversal, Starting Sun08/05/18 at 1246, For 24 hours, For apnea or imminent respiratory arrest: give 0.4 mg IV undiluted Q 2 minutes PRN until desired deg ree of reversal is obtained, stop opioid and notify provider. Continue monitoring until discharge criteria are met for a minimum of 2 hours. For severe sedation, decrease in respiratory depth, quality o r Respiratory Rate less than 8: give 0.1 mg IV Q 2 minutes x 3 doses, stop opioid and notify provider. Try to minimize reversal of analgesia especially in end-of-life patients. Continue monitoring until discharge criteria are met for a minimu m of 2 hours For ordered IV doses 0.1- 2mg give IVP. Give each 0.4mg over 15 seconds in emergency situations. For non- emergent situations further dilute in 9mL of NS to facilitate titration of response., Post-procedure ondansetron (ZOFRAN) injection 4 mg 4 mg, Intravenous, ONCE PRN, nausea, vom iting, Administer over 2-5 Minutes, Starting 08/05/18 at 1211, For 1 dose, Give in ENDO pre procedure prep area. Irritant. For ordered IV doses 0.1-4 mg, give I V Push undiluted over 2-5 minutes., Pre-procedure ondansetron (ZOFRAN) injection 4 mg(Linked Group 2) 4 mg, Intravenous, EVERY 6 HOURS PRN, na usea, vomiting, Administer over 2-5 Minutes, Starting Sun08/05/18 at 1246, This is Step 1 of nausea and vomiting management. If nausea not resolved in 15 minutes, go to Step 2 prochlorperazine (COMPAZINE ). Irritant. For ordered IV doses 0.1-4 mg, give IV Push undiluted over 2-5 minutes., Post-procedure ondansetron (ZOFRAN-ODT) ODT tab 4 mg(Linked Group 2) 4 mg, Oral, EVERY 6 HOURS PRN, nausea, v omiting, Starting 08/05/18 at 1246, This is Step 1 of nausea and vomiting management. If nausea not resolved in 15 minutes, go to Step 2 prochlorperazine (DAVID ZINE). Do not push through foil backing. Peel back foil and gently remove. Place on tongue immediately. Administration with liquid unnecessary With dry hands, peel back foil backing and gently remove ta blet; do not push oral disintegrating ta blet through foil backing; administer immediately on tongue and oral disintegrating tablet dissolves in seconds; then swallow with saliva; liquid not required., Post-procedure prochlorperazine (COMPAZINE) injection 5 mg(Linked Group 3) 5 mg, Intravenous, EVERY 6 HOURS PRN, na usea, vomiting, Administer over 1-2 Minutes, Starting 08/05/18 at 1246, This is Step 2 of nausea and vomiting management. If nausea not resolved in 15 minutes, give metoclopramide (REGLAN) if ordered (step 3 of nausea and vomiting management) For ordered IV doses 0.1-10 mg, give IV Push undiluted. Each 5mg over 1 minute., Post-procedure prochlorperazine (COMPAZINE) tablet 5 mg(Linked Group 3) 5 mg, Oral, EVERY 6 HOURS PRN, nausea, v omiting, Starting 08/05/18 at 1246, This is Step 2 of nausea and vomiting management. If nausea not resolved in 15 minutes, give metoclopramide (REGLAN) if orde red (step 3 of nausea and vomiting management), Post-procedure simethicone 133mg/2mL oral suspension 1202 (Given - Provider: Arthur Fajardo MD - Comment: in scope) PRN, Starting 08/05/18 at 1202, Intra-procedure sodium chloride (PF) 0.9% PF flush 3 mL 3 mL, Intracatheter, EVERY 1 MIN PRN, li ne flush, for peripheral IV flush post IV meds, Starting 08/05/18 at 1211, Pre-procedure sodium chloride (PF) 0.9% PF flush 3 mL 3 mL, Intravenous, EVERY 1 MIN PRN, line flush, after medication administration. For peripheral IV flush post IV meds, Starting 08/05/18 at 1246, Post-procedure Linked Groups Order Group 1: diphenhydrAMINE (BENADRYL) injection 25 mgJump to med 25 mg, Intravenous, EVERY 4 HOURS PRN, i tching, Starting 08/05/18 at 1246
Use only if patient cannot take oral. For ordered IV doses 1-50 mg, give IV Push undiluted. Give each 25mg o gwendolyn a minimum of 1 minute. Extend in non -emergency
Post-procedure Or diphenhydrAMINE (BENADRYL) capsule 25 mgJump to med 25 mg, Oral, EVERY 4 HOURS PRN, itching, Starting 08/05/18 at 1246, Post-procedure Group 2: ondansetron (ZOFRAN-ODT) ODT tab 4 mgJump to med 4 mg, Oral, EVERY 6 HOURS PRN, nausea, v omiting, Starting 08/05/18 at 1246
This is Step 1 of nausea and vomiting management. If nausea not resolved in 15 minutes, go to Manish p 2 prochlorperazine (COMPAZINE). Do not push through foil backing. Peel back foil and gently remove. Place on tongue immediately. Administration with liquid unnecessary With dry hands, peel ba ck foil backing and gently remove tablet ; do not push oral disintegrating tablet through foil backing; administer immediately on tongue and oral disintegrating tablet dissolves in seconds; then swallow with saliva; liquid not required.
Pos t-procedure Or ondansetron (ZOFRAN) injection 4 mgJump to med 4 mg, Intravenous, EVERY 6 HOURS PRN, na usea, vomiting, Administer over 2-5 Minutes, Starting Sun08/05/18 at 1246
This is Step 1 of nausea and vomiting management. If nausea n ot resolved in 15 minutes, go to Step 2 prochlorperazine (COMPAZINE). Irritant. For ordered IV doses 0.1-4 mg, give IV Push undiluted over 2-5 minutes.
Post-procedure Group 3: prochlorperazine (COMPAZINE) injection 5 mgJump to med 5 mg, Intravenous, EVERY 6 HOURS PRN, na usea, vomiting, Administer over 1-2 Minutes, Starting 08/05/18 at 1246
This is Step 2 of nausea and vomiting management. If nausea not resolv ed in 15 minutes, give metoclopramide (R EGLAN) if ordered (step 3 of nausea and vomiting management) For ordered IV doses 0.1-10 mg, give IV Push undiluted. Each 5mg over 1 minute.
Post-procedure Or prochlorperazine (COMPAZINE) tablet 5 mgJump to med 5 mg, Oral, EVERY 6 HOURS PRN, nausea, v omiting, Starting 08/05/18 at 1246
This is Step 2 of nausea and vomiting management. If nausea not resolved in 15 minutes, give metoclopramid e (REGLAN) if ordered (step 3 of nausea and vomiting management)
Post-procedure documented in this encounter Care Teams Perinatal Director Relationship Specialty Start Date End Date Raghavendra Deras MD PCP - General Family Practice 10/07/13 Raghavendra Deras MD Assigned PCP 01/23/16 05/14/21 documented as of this encounter
--- OUTSIDE RECORDS SUMMARY | 2021-11-04 10:34 | XMS_ITS | Encounter Summary ---
:1945 Author Organization [place] Address [address] [facility] [place] [address] Care Team Providers Name Role Phone Raghavendra Deras MD Primary Care Provider Unavailable Raghavendra Deras MD Unavailable Unavailable Reason for Visit Auth/Cert Specialty Diagnoses / Procedures Referred By Contact Refer red To Contact Gastroenterology Diagnoses PERSONAL HISTORY OF POLYPS Sh Endoscopy Procedures COLONOSCOPY [address] [place] [phone] Phone: Referral ID Status Reason Start Date Expiration Date Visits Requ ested Visits Authorized [id number] 1 1 Encounter Details Date Type Department Care Team Description 08/05/2018 Hospital Encounter [facility] Gerry Fajardo MD [facility] Endoscopy COLON RECTAL SURG [address] [place] [id number] [address] [phone] [place] [address] [place] [id number] (Wo rk) Social History Tobacco Use Types Packs/Day Years [...] at Date Recorded 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 C.A.D. Maternal Uncle [place] ??? Cancer - colorectal Maternal Uncle ??? [...] Arthur Fajardo August 05, 2018 Colorectal Surgery [phone] (office) [phone] (pager) [email or web address] documented in this encounter Plan [...] Component Value Ref Test Analysis Performed At [facility] Method Time Signature Copath Report Patient Name: LO NEUMANN MR#: [id number] Specimen #: [id number] Collected: 08/05/2018 Received: 08/05/2018 Reported: 08/06/2018 15:02 [...] by: Alireza Gordon 08/05/2018 02:23 PM) MICROSCOPIC: A, B. Microscopic performed The technical component of this testing was completed at the [facility], with the professional compo nent performed at the [facility], [address] [place] [address] ??[phone] ([phone]) CPT Codes: A: 97734-XD9 B: 44745-TA2 COLLECTION SITE: Client: [facility] Location: [place] (S) Specimen (Source) Anatomical Collection Method Collection Time Re ceived Time Location / / Volume Laterality Polyp LARGE INTESTINE 08/05/2018 12:05 (morphologic PART / Unknown PM CDT abnormality) Comment: Cold snare Polyp (morphologic RECTUM STRUCTURE / Unknown 08/06/19 19 12:11 PM CDT abnormality) Comment: Cold snare Arthur SAUCEDA Performing Organization Address City/State/ZIP Code Phon e Number [place] COLONOSCOPY (08/05/2018 11:51 AM CDT) Component Value Ref Test Analysis Performed At [facility] Method Time Signature COLONOSCOPY [facility] RADIOLOGY [facility] Endoscopy Department RESULTS Patient Name: Lo Neumann ?Procedure Date: 08/05 11:51 AM ? Accou nt Number: [id number] Date of : 1945 ?Admit Type: Out patient Age: 73 ? Room: 1 ? Note Status: Finalized ?Attending MD: Arthur Fajardo MD Total Sedation Time: ?I nstrument Name: Nathaniel -[id number] AdultColonoscope Procedure: ?Colonoscopy Indications: ?High ri sk colon cancer surveillance: Personal ?history of colonic po lyps Providers: ?Arthur Fajardo MD, Alana Jose RN Referring MD: ? Raghavendra Deras MD Medicines: ?Midazolam 2 mg IV, Fentanyl 100 micrograms IV. The ?MD provided 15 minutes of 1:1 continuous bedside [...] Procedure Code(s): ? --- Professional --- ? 82681, Colonoscopy, flexible; with removal of tumor (s), polyp(s), or ? other lesion(s) by snare technique Diagnosis Code(s): ? --- Professional --- ? K57.30, Diverticulosi s of large intestine without perforation or abscess ? without bleeding ? D12.8, Benign neoplasm of rectum ? D12.2, Benign neoplasm of ascending colon ? Z86.010, Personal history of colonic polyps CPT copyright 2017 [employer]. All rights reserved. The codes documented in this report are prelimin sanaz and upon filler sifter machine review may be revised to meet current compliance requirements. Arthur Fajardo MD 08/05/2018 12:14:14 PM I was physically present for the entire viewing portion of t he exam. Arthur Fajardo MD Number of Addenda: 0 Note Initiated On: 08/05/2018 11:51 AM MRN: ?[id number] Procedure Date: ? 08/05/2018 11:51:36 AM Scope [...] 4 HOURS PRN, i tching, Starting on Sun08/05/18 at 1246, Use only if patient [...] (SUBLIMAZE) injection 1157 (Given - Provider: Alana Jose, RN) Administer over 3-5 Minutes, PRN, Starting [...] Alana Jose, RN)1159 (Given - Provider: Alana Jose, RN) Administer over 2 Minutes, PRN, Starting [...] usea, vomiting, Administer over 2-5 Minutes, Starting 08/05/18 at 1246, This is [...] peripheral IV flush post IV meds, Starting Sun08/05/18 at 1246, Post-procedure Linked Groups Order Group [...] usea, vomiting, Administer over 2-5 Minutes, Starting 08/05/18 at 1246
This is [...]
Post-procedure documented in this encounter Care Teams Elementary Vocal Music Teacher Relationship Specialty Start Date End Date Raghavendra Deras MD PCP - General Family Practice 10/07/13 Raghavendra Deras MD Assigned PCP 01/23/16 05/14/21 documented as of this encounter
--- OUTSIDE RECORDS SUMMARY | 2021-11-04 10:34 | XMS_ITS | Encounter Summary ---
:1945 Author Organization [place] Address [address] [facility] 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 We just got our shipment in and would like to know if they would like to come in now to get it. 1st shot was done 05/13 so he can come in anytime. Ariella Davidson Tool Technician documented in this encounter Plan of Treatment Not on filedocumented as of this encounter Visit Diagnoses Not on filedocumented in this encounter Care Teams Resource Efficiency Manager Relationship Specialty Start Date End Date Raghavendra Deras MD PCP - General Family Practice 10/07/13 Raghavendra Deras MD Assigned PCP 01/23/16 05/14/21 documented as of this encounter
--- OUTSIDE RECORDS SUMMARY | 2021-11-04 10:34 | XMS_ITS | Encounter Summary ---
:1945 Author Organization [place] Address [facility] 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 Myriam Barrett RN, BSN LSTERY SEWER documented in this encounter Plan of Treatment Not on filedocumented as of this encounter Visit Diagnoses Diagnosis Hyperlipidemia LDL goal <130 Other and unspecified hyperlipidemia documented in this encounter Care Teams Ditcher Relationship Specialty Start Date End Date Raghavendra Deras MD PCP - General Family Practice 10/07/13 Raghavendra Deras MD Assigned PCP 01/23/16 05/14/21 documented as of this encounter
--- OUTSIDE RECORDS SUMMARY | 2021-11-04 10:34 | XMS_ITS | Encounter Summary ---
:1945 Author Organization [place] Address [address] 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
--- OUTSIDE RECORDS SUMMARY | 2021-11-04 10:34 | XMS_ITS | Clinical Summary ---
:1945 Author Organization [place] Address [facility] [place] [address] Care Team Providers Name Role Phone Raghavnedra Deras MD Primary Care Provider Unavailable Allergies Active Allergy Reactions Severity Noted Date Comments Mometasone Furoate Monohydrate 06/11/2000 gets bloody noses from Nasonex Quinazolines 06/11/2000 get bloody nose s from Flomax Medications Medication Sig Dispensed Refills Start Date End Date Status Multiple Take 1 tablet 0 Active Vitamins-Minerals by mouth daily (CENTRUM SILVER ULTRA MENS PO) fish oil-omega-3 fatty Take 2 90 capsule 0 10/07/2013 Active acids 1000 MG capsule capsules (2 g) by mouth daily PT IS NOW TAKING 1 TAB PER DAY hydrochlorothiazide Take 1 tablet 30 tablet 0 05/13/2018 Active (HYDRODIURIL) 12.5 MG (12.5 mg) by tabletIndications: mouth daily Essential hypertension doxazosin (CARDURA) 4 MG Take 1 tablet 90 tablet 3 06/14/2018 Active tabletIndications: (4 mg) by Essential hypertension mouth At Bedtime omeprazole (PRILOSEC) 40 Take 1 capsule 90 capsule [address] capsuleIndications: (40 mg) by History of peptic ulcer mouth daily disease, Gastroesophageal reflux disease, esophagitis presence not specified losartan (COZAAR) 50 MG TAKE 1 TABLET 90 tablet 1 09/27/2018 Active tabletIndications: EVERY DAY Essential hypertension simvastatin (ZOCOR) 20 MG TAKE 1 TABLET 90 tablet 0 03/17/2019 Active tabletIndications: AT BEDTIME Hyperlipidemia LDL goal <130 Active Problems Patient Care Coordination Note Formatting of this note might be differe nt from the original. [email or web address] Problem Noted Date Hyperlipidemia LDL goal <130 01/12/2016 Benign prostatic hyperplasia with lower urinary tract symptoms 10/01/2014 Advanced directives, counseling/discussion 07/08/2010 Overview: Formatting of this note is dif ferent from the original. Advance Directive Problem List Overview: Name Relationship Phone Primary Health Care Agent Karen Ferro iejayson [phone] Alternative Health Care Agent Discussed advance care planning with rafal suarez; information given to patient to review. 07/08/2010 07/18/10 Left message for patient to call back to arrange facilitation if desired for completion of Advanced Care Directive. Rosibel Steele LPN/Advanced Healthcare Planning Tab Cutting Machine Operator Advance Care Planning 01/12/2016: ACP Rev iew of Chart / Resources Provided: Reviewed chart for advance care plan. Terry Neumann has no plan or code status on file. Discussed available resources an d provided with information. Confirmed c ode status reflects current choices pending further ACP discussions. Confirmed/documented legally designated decision makers. Added by Fatemeh Camacho, MINDY Essential hypertension 06/24/2010 History of peptic ulcer disease 03/21/2010 SCC (squamous cell carcinoma), face 03/16/2008 Overview: Right neck Adenomatous polyp of colon 02/05/2002 Allergic rhinitis Actinic keratosis Esophageal reflux Overview: Hx of ulcer Resolved Problems Problem Noted Date Resolved Date Acute left-sided low back pain without sciatica 10/08/2015 01/06/2016 Hyperlipidemia with target LDL less than 130 04/15/2014 01/12/2016 Gastroenteritis 01/10/2013 01/12/2016 Low back pain 04/03/2012 04/17/2012 Overview: Diagnosis updated by automated process. Provider to review and confirm. Thumb pain 01/22/2012 02/22/2012 Neck pain 01/15/2012 02/14/2012 Hyperlipidemia LDL goal <130 12/05/2009 04/15/2014 Hypertension 04/30/2009 06/24/2010 MORENITA (obstructive sleep apnea) 04/30/2009 03/20/2018 Overview: Unable to tolerate LIPOMA SKIN- trunk & legs 08/05/2004 07/04/2006 Essential hypertension, benign 12/30/2002 0 Trigger finger, acquired 08/11/2002 07/04/2006 Overview: Problem list name updated by automated p rocess. Provider to review Bunion 09/26/2000 07/04/2006 Acute duodenal ulcer with hemorrhage Overview: Problem list name updated by automated p rocess. Provider to review Hypertrophy of prostate without urinary obstruction 01/12/2016 Immunizations Name Administration Dates Next Due Influenza Vaccine IM > 6 months Valent IIV4 01/01/2018 (Alfuria,Fluzone) Influenza Vaccine, 6+MO IM (QUADRIVALENT 09/26/2016 W/PRESERVATIVES) Pneumo Conj 13-V (2010&after) 10/01/2014 Pneumococcal 23 valent 07/08/2010 TD (ADULT, 7+) 04/13/1998 04/13/2008 TDAP Vaccine (Adacel) 09/04/2018 TDAP Vaccine (Boostrix) 10/19/2008 Zoster vaccine recombinant adjuvanted (SHINGRIX) 05/13/2018 Zoster vaccine, live 01/18/2016 Family History Medical History Relation Comments Heart Disease Brother stent - 66 Prostate Cancer Brother no cancer, but a pro dure due reduce the prostate Family History Negative Father Cerebrovascular Disease Maternal Grandmother older, 70's or 80's Diabetes Maternal Grandmother C.A.D. Maternal Uncle [place] Cancer - colorectal Maternal Uncle Family History Negative Mother Prostate Cancer Other Cousin Prostate Cancer Paternal Grandfather not sure Cancer Sister 1 bone caner/lung canc er Relation Status Comments Brother Alive Father (Age 84) Renal failure Maternal Grandfather Maternal Grandmother Maternal Uncle Mother Other Paternal Grandfather Paternal Grandmother Sister 1 Sister 2 Alive Social History Tobacco Use Types Packs/Day Years Used Date Former Smoker Cigarettes 0.5 20 Quit: 02/05/18 85 Smokeless Tobacco: Never Used Tobacco Cessation: Counseling Given: No Alcohol Use Standard Drinks/Week Comments Yes 1.7 [...] at Date Recorded 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 Last Filed Vital Signs Vital Sign Reading Time Taken Comments Blood Pressure 144/82 03/19/2019 9:57 AM 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 Pulse 74 09/04/2018 8:59 PM CDT Temperature 36.9 ??C (98.4 ??F) 09/04/2018 8:59 PM CDT Respiratory Rate 16 09/04/2018 8:59 PM CDT Oxygen Saturation 96% 09/04/2018 8:59 PM CDT Inhaled Oxygen Concentration - - Weight 94.3 kg (208 lb) 09/04/2018 8:59 PM CDT Height 175.3 cm (5' 9) 09/04/2018 8:59 PM CDT Body Mass Index 30.72 09/04/2018 8:59 PM CDT Plan of Treatment Health Maintenance Due Date Last Done Comments ANNUAL REVIEW OF HM ORDERS 1945 CT COLONOGRAPHY 1945 FIT-DNA (Cologuard) 1945 FLEX SIG 1945 COVID-19 Vaccine (#1) 1945 LUNG CANCER SCREENING 03/20/2009 03/20/2008, 04/11/2007, 01/14/2007, Additional history exists FIT 08/20/2013 08/20/2012 FALL RISK ASSESSMENT 03/19/2019 03/19/2018, 01/09/2018, 01/12/2016, Additional history exists LIPID 03/19/2019 03/19/2018, 01/31/2017, 01/12/2016, Additional history exists MEDICARE ANNUAL WELLNESS 03/19/2019 03/19/2018, 03/19/2018, VISIT 01/31/2017, Additional history exists ADVANCE CARE PLANNING 01/11/2021 01/12/2016, 07/08/2010, 07/08/2010 PHQ-2 (once per calendar 02/05/2021 03/19/2018, 01/31/2017, year) 01/12/2016 COLONOSCOPY 08/06/2023 08/05/2018, 06/05/2013, 06/05/2013, Additional history exists COLORECTAL CANCER 08/06/2023 SCREENING DTAP/TDAP/TD IMMUNIZATION 09/04/2028 09/04/2018, 10/19/2008 , (4 - Td or Tdap) 04/13/1998 Pneumococcal Vaccine: 65+ Completed 10/01/2014, 07/08/2010 Years HEPATITIS C SCREENING Completed 01/12/2016 ZOSTER IMMUNIZATION Completed 10/16/2018, 05/13/2018, 01/18/2016 INFLUENZA VACCINE Discontinued 12/05/2018, 01/01/2018, 09/26/2016 HEPATITIS B IMMUNIZATION Aged Out No long er eligible based on patient 's age to complete this topic IPV IMMUNIZATION Aged Out No longer eligi ble based on patient 's age to complete this topic MENINGITIS IMMUNIZATION Aged Out No longe r eligible based on patient 's age to complete this topic Insurance Payer Benefit Plan / Subscriber ID Effective Dates Phone Addre ss Type Group HUMANA HUMANA MEDICARE [id number] [facility] [phone] [address] [address] Medicare [place]ANT[place] [address] Replaced by [facility] [place]-[phone] ([address]) [address] [phone] [address] (Work) [phone] Greta Neumann Personal/Family Self 1945 Replaced by [facility] [place]-[phone] ([address]) [place] [id number] Greta Neumann Medicare Self 1945 Replaced by [facility] [phone] (Home) [place] [phone] Advance Directives For more information, please contact: [phone] Latest Code Status on File Code Status Date Activated Date Inactivated Comments Full Code 01/10/2013 6:23 AM 01/10/2013 10:37 PM Care Teams Social Service Director Relationship Specialty Start Date End Date Raghavendra Deras MD PCP - General Family Practice 10/07/13
--- OUTSIDE RECORDS SUMMARY | 2021-11-04 10:34 | XMS_ITS | Encounter Summary ---
:1945 Author Organization [place] Address [address] [facility] 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
--- OUTSIDE RECORDS SUMMARY | 2021-11-04 10:34 | XMS_ITS | Encounter Summary ---
:1945 Author Organization [place] Address [facility]0 [facility] [place] [address] Care Team Providers Name Role Phone Raghavendra Deras MD Primary Care Provider Unavailable Raghavendra Deras MD Unavailable Unavailable Encounter Details Date Type Department Care Team Description 03/04/[address] 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
--- OUTSIDE RECORDS SUMMARY | 2021-11-04 10:35 | XMS_ITS | Encounter Summary ---
:1945 Author Organization [place] Address [address] [facility] [place] [address] Care Team Providers Name Role Phone Raghavendra Deras MD Primary Care Provider Unavailable Raghavendra Deras MD Unavailable Unavailable Reason for Visit Rehab Therapy Integrated Services - Closed Specialty Diagnoses / Procedures Referred By Contact Refer red To Contact Diagnoses Hoarseness R49.0 [facility] Procedures [facility] [address] [place] [phone] Phone: Fax: Referral ID Status Reason Start Date Expiration Date Visits Requ ested Visits Authorized [id number] Closed 04/05/2018 02/04/2019 365 365 Encounter Details Date Type Department Care Team Description 04/10/2018 Hospital Encounter [facility] Mckay Aguilar MD [facility] [address] [place] [id number] Rehabilitation Jyoti Blevins, PLATE FITTER [address] [place], [place] [id number] [address] [place] [address] [address] [place] [phone] Social History Tobacco Use Types Packs/Day Years [...] at Date Recorded Male 01/15/2018 11:39 PM REHAB NURSE documented as of this encounter Medications at Time of Discharge Medication Sig Dispensed Refills Start Date End Date fish oil-omega-3 fatty Take 2 capsules 90 capsule 0 10/08/19 14 acids 1000 MG capsule (2 g) by mouth daily PT IS NOW TAKING 1 TAB PER DAY Multiple Vitamins-Minerals Take 1 tablet by 0 (CENTRUM SILVER ULTRA MENS mouth daily PO) albuterol (PROAIR Inhale 2 puffs 1 Inhaler 0 03/27/201802/2018 HFA/PROVENTIL HFA/VENTOLIN into the lungs HFA) 108 (90 Base) MCG/ACT every 6 hours as inhalerIndications: Acute needed for bronchitis, unspecified shortness of organism breath / dyspnea or wheezing doxazosin (CARDURA) 8 MG Take 1 tablet (8 90 tablet 3 03/1904/15/2018 tabletIndications: Benign mg) by mouth At prostatic hyperplasia with Bedtime nocturia fluticasone (FLONASE) 50 [place] 1-2 sprays 1 Bottle 3 01/1108/05/2018 MCG/ACT sprayIndications: into both Seasonal allergic rhinitis, nostrils daily unspecified allergic rhinitis trigger hydrochlorothiazide Take 1 tablet (25 30 tablet 1 9 04/15/2018 (HYDRODIURIL) 25 MG mg) by mouth tabletIndications: daily Essential hypertension losartan (COZAAR) 25 MG Take 2 tablets 90 tablet 3 04/02/19 19 04/15/2018 tabletIndications: (50 mg) by mouth Essential hypertension daily omeprazole (PRILOSEC) 20 MG Take 1 capsule 90 capsule 3 03/0807/31/2018 capsuleIndications: (20 mg) by mouth History of peptic ulcer daily disease, Gastroesophageal reflux disease, esophagitis presence not specified simvastatin (ZOCOR) 20 MG Take 1 tablet (20 90 tablet 3 01/201903/17/2019 tabletIndications: mg) by mouth At Hyperlipidemia LDL goal Bedtime <130 documented as of this encounter Progress Notes Jyoti Robert, PLATE FITTER - 04/10/2018 11:59 PM CST Images from the original note were not included. [facility] PLATE FITTER Voice Evaluation with Videostroboscopy 04/10/18 1115 General Information Type Of Visit Initial Start Of Care Date 04/10/18 Referring Physician Mckay Aguilar MD (ENT) Orders Evaluate And Treat;Other (Videostroboscopy) Medical Diagnosis Dysphonia Onset Of Illness/injury Or Date Of Surgery 03/07/18 (order date) Precautions/Limitations no known precautions/limitations Hearing WFL for 1:1 conversation in session Surgical/Medical history reviewed Yes Pertinent History Of Current Problem 73yo male presenting with 1+ year of dysphonia. Pt reports thathe had a chronic cough with talking for 1-2 years prior to onset of dysphonia, noting that the coughwent away on its own and shortly afterward he began developing hoarseness. Voice quality is raspy and variable, typically improving somewhat with voice use. He has some extra effort and strain to produce voice, but no discomfort or soreness. Pt reports that his voice quality was almost a whisper a fewmonths ago, possibly due to uncontrolled allergies, but that his voice has improved somewhat since that time. He occasionally has throat dryness. He denies swallowing or breathing difficulty. PMH significant for reflux (well managed with medications), HTN, skin CA, recent bronchitis. Prior Level of Functioning No previous problems. Patient Role/employment History Retired General Observations Pt reports that today is a typical voice day for the morning, noting that his voice typically sounds worse in the mornings. He notes that he is still recovering from bronchitis, with some continued productive coughing and throat clearing. Patient/family Goals To improve his voice as much as possible Personal Rating / Voice Use Rating Describe the amount of typical non-work voice use Moderate Describe the intensity of typical non-work voice use Moderate Comments Vocal demands consist primarily of conversational speech. People frequently have difficultyhearing him because of his voice, especially in background noise. He sometimes feels that he has to strain to produce voice. Voice quality is occasionally unpredictable. Voice problems are occasionally upsetting and make him feel handicapped. VHI-10: . Evaluation Results Voice Observations COUGH/THROAT CLEAR: intermittent throat clearing and brief coughs observed throughout the session, mostly productive and likely residual from recent bronchitis. Voice Profile during conversation, 1 min monologue and paragraph reading Voice Quality Raspy;Airy Voice quality comments SPEECH: Consistent moderate strain, consistent mild breathiness, and consistent but variable mild to mild-moderate roughness with occasional bursts of secretion noise. SINGING: consistent with speech at lower pitches, with less breathiness and roughness at higher pitches. VOWEL P ROLONGATION: comfortable pitch /a/: Bb2, breathy and rough with strain at end of prolongation; high pitch /a/: C#3, breathy and mildly rough, with less strain; low pitch /a/: F#2, increased breathiness, roughness, and strain. THERAPY PROBES: good improvement in voice quality with diaphragmatic engagement and semi-occluded vocal tract probes. Voice quality severity rating continuum (1=Severe, 7=WNL) 4 (CAPE-V Overall Severity: 43/100) Breath control Irregular Breath Control comments Appropriate abdominal muscle use pattern, with frequent inspirations and poor breath flow with phonation. Poor respiratory/phonatory coordination. Breath control severity rating continuum (1=Severe, 7=WNL) 5 Voice Use / Effort Pinched / squeezed larynx;Throat push Voice Use / Effort comments Pt rates his current phonatory effort for speech as 3-4/10 (10 is maximum effort). Voice use / Effort severity rating continuum (1=Severe, 7=WNL) 5 Fundamental frequency (Hz) (Centered around C3) Pitch / Frequency comments Increased dysphonia at lower pitches. Pitch / Frequency severity rating continuum (1=Severe, 7=WNL) 6 Volume comments Volume for conversational speech is WFL and appropriate. A whisper is normal. Soft phonation is mildly strained and rough. Loud phonation is less rough, breathy, and strained with good volume increase. Volume severity rating continuum (1=Severe, 7=WNL) 6 Neuromuscular Control WNL Neuromuscular Control severity rating continuum (1=Severe, 7=WNL) 7 Resonance WNL Resonance severity rating continuum (1=Severe, 7=WNL) 7 Comments Moderate dysphonia characterized by strain, roughness, breathiness, poor respiratory/phonatory coordination, increased dysphonia at lower pitches, and tight laryngeal musculature during phonation. Adduction /Abduction Function Laryngeal diadokinetic speed (Mildly slow) Laryngeal diadokinetic strength Sluggish (Breathy and strained) Laryngeal diadokinetic consistency Regular Adduction / Abduction function scale Age 66+, norm per sec: 4 Function of Lengtheners / Shorteners (CT and TA Muscles) Pitch glides Lower pitches more dysphonic (Lowest: F#2; Highest: F#4) Videostroboscopy / Endoscopy Scope Serial Number [employer]ax [id number] Tissue description Red medial aspect of arytenoid cartilages;Interarytenoid cobblestoning;Smooth pink larynx tissues;White vocal fold tissues;Inflamed Comment Areas of erythema observed on the medial aspect of the arytenoids and superior aspect of thetrue vocal folds, may be secondary to coughing from recent bronchitis. Vocal processes are prominentat times, with a suble spindle shape glottic gap. Fullness of the right vocal fold is also observed which is at once diffuse and somewhat more prominant at the anterior 1/3 junction of the vocal folds,resulting in a subtle hourglass configuration of glottic closure. No specific lesions observed. Laryngeal movements Adduction / abduction full range of motion (ROM);Lengthening / shortening of true vocal folds (TFV) full ROM Vibratory characteristics Full mucosal wave right;Full mucosal wave left (Occasional mildly open phase predominant) Vocal fold edges Smooth Glottal closure characteristics Hourglass shape;Spindle gap (Mild) Supraglottic activity Anterior-posterior compression;Medial-lateral compression (Mild-moderate, improves with probes) Other observations Flexible laryngoscopy with videostroboscopy completed following application of topical anesthetic (3% Lidocaine HCL, 0.25% Phenylephrine HCL) and after obtaining informed verbal consent. Scope was inserted via the left nostril. Pt tolerated the procedure well. General Therapy Interventions Planned Therapy Interventions Voice Voice Breath flow to sound flow;Voice quality/pitch or volume tasks;Resonant voice techniques;Larynxstrengthening;Larynx and TVF flexibility;Larynx movement/coordination Impressions and Recommendations Communication Diagnosis Dysphonia Summary Mr. Montero presents with moderate dysphonia characterized by strain, roughness, breathiness, poor respiratory/phonatory coordination, increased dysphonia at lower pitches, and tight laryngeal musculature during phonation. Based on today's evaluation and videostroboscopy, dysphonia is accounted for by a combination of true vocal fold edema with resulting aberrations in vibratory characteristics and mucosal wave, poor glottic closure, laryngeal irritation, and supraglottic hyperfunction. Recommendations A course of skilled speech therapy is recommended in order to optimize vocal technique, improve voice quality, and promote reduced laryngeal effort and irritation so that patient is able to meet his vocal demands. Frequency and Duration 1x/week for 7 weeks with 2-3 monthly follow-ups Prognosis Good with intervention Risks and Benefits of Treatment have been explained. Yes Patient & /or Caregiver in agreement with plan of care Yes Patient Education PLATE FITTER provided education regarding evaluation and videostroboscopy findings and treatment options. Pt verbalized understanding. Educational Assessment Barriers to Learning No barriers Preferred Learning Style Listening;Reading;Demonstration;Pictures / Video Voice Goals Voice Goals 1;2;3;4 Voice Goal 1 Goal Identifier Generalization Goal Description Patient will report a week of typical activities in which dysphonia and effort do not exceed a level of 2 out of 10, 90% of the time, so that patient is able to meet his vocal demands. Target Date 10/11/18 Voice Goal 2 Goal Identifier Voice quality Goal Description In a 20-minute speech task, patient will demonstrate roughness, breathiness, and strain that do not exceed a level of 2 out of 10, 90% of the time by PLATE FITTER judgment, so that patient is able to meet his voice quality demands. Target Date 10/11/18 Voice Goal 3 Goal Identifier Vocal function Goal Description In order to improve laryngeal strength, flexibility, and coordination for daily vocal tasks, patient will extend average maximum phonation time in exercise 4 of modified Vocal FunctionExercises to 15 seconds without strain when given min assist. Target Date 10/11/18 Voice Goal 4 Goal Identifier Hygiene Goal Description Patient will learn, demonstrate, and implement use of 2-3 vocal hygiene strategies (e.g. hydration, nasal lavage, alternative cough/throat clear techniques), to promote reduced laryngeal irritation. Target Date 07/11/18 Total Session Time Voice Minutes (67134) 35 Laryngoscopy W/Stroboscopy Minutes (11406) 30 Total Evaluation Time 65 Thank you for the referral of this patient. Jyoti Luo B.A. (lissette)Leo, [facility]-PLATE FITTER Speech-Language Pathologist Certificate of Vocology [facility] [phone] documented in this encounter Miscellaneous Notes Addendum Note - Jyoti Robert SLP - 04/10/2018 11:59 PM REHAB NURSE Encounter addended by: Jyoti Luo SLP on: 04/23/2018 8:59 AM Actions taken: Sign clinical note, Flowsheet accepted Addendum Note - Jyoti Robert SLP - 04/10/2018 11:59 PM REHAB NURSE Encounter addended by: Jyoti Luo SLP on: 05/01/2019 9:33 AM Actions taken: Episode resolved documented in this encounter Plan of Treatment Not on filedocumented as of this encounter Visit Diagnoses Not on filedocumented in this encounter Care Teams Emergency Room Registered Nurse Relationship Specialty Start Date End Date Raghavendra Deras MD PCP - General Family Practice 10/07/13 Raghavendra Deras MD Assigned PCP 01/23/16 05/14/21 documented as of this encounter
--- OUTSIDE RECORDS SUMMARY | 2021-11-04 10:35 | XMS_ITS | Encounter Summary ---
:1945 Author Organization [place] Address [address] [facility] [place] [address] Care Team Providers Name Role Phone Raghavendra Deras MD Primary Care Provider Unavailable Raghavendra Deras MD Unavailable Unavailable Raghavendra Deras MD Unavailable Unavailable Encounter Details Date Type Department Care Team Description 02/07/2018 Therapy Visit [facility] Naya Faust Midl ine low back Rehabilitation Services PT pain without [place] [address] sciatica (Primary [address]) [place] [address] [id number] Social History Tobacco Use Types Packs/Day Years [...] at Date Recorded Male 01/15/2018 11:39 PM ANESTHESIOLOGY PHYSICIAN documented as of this encounter Progress Notes Naya Faust, PT - 02/07/2018 1:00 PM CST Subjective: HPI Objective: System Physical Exam General ROS Assessment/Plan: DISCHARGE REPORT Progress reporting period is from 01/16/2018 to 02/07/2018. SUBJECTIVE Subjective: Patient reports some sore days if he does too many exercises, or sometimes wakes with sore back Current Pain level: 2/10 Initial Pain level: 5/10 Changes in function: Yes, see goal flow sheet for change in function OBJECTIVE Objective: Reviewed all exercises and decreased ROM with prone extension exercises. Right hip was tight therefore added home stretches and manual hip mobilizations ASSESSMENT/PLAN STG/LTGs have been met or progress has been made towards goals: Yes (See Goal flow sheet completed today.) Assessment of Progress: The patient's condition is improving. The patient's condition has potential to improve. Self Management Plans: Patient is independent in a home treatment program. Patient is independent in self management of symptoms. Terry continues to require the following intervention to meet STG and LTG's: PT intervention is no longer required to meet STG/LTG. Recommendations: This patient is ready to be discharged from therapy and continue their home treatment program. Please refer to the daily flowsheet for treatment today, total treatment time and time spent performing 1:1 timed codes. THESIOLOGY PHYSICIAN documented in this encounter Miscellaneous Notes Addendum Note - Naya Faust PT - 02/07/2018 1:00 PM ANESTHESIOLOGY PHYSICIAN Addended by: NAYA FAUST on: 03/27/2018 12:04 PM Modules accepted: Orders THESIOLOGY PHYSICIAN documented in this encounter Plan of Treatment Not on filedocumented as of this encounter Procedures Procedure Name Priority Date/Time Associated Diagnosis Comme nts ZC MANUAL THER Routine 02/07/2018 3:42 PM Midline low back pa in TECH,1+REGIONS,EA 15 MIN ANESTHESIOLOGY PHYSICIAN without sciatica ZZC THERAPEUTIC Routine 02/07/2018 3:42 PM Midline low back pa in EXERCISES ANESTHESIOLOGY PHYSICIAN without sciatica documented in this encounter Visit Diagnoses Diagnosis Midline low back pain without sciatica - Primary documented in this encounter Care Teams Maintenance Representative Relationship Specialty Start Date End Date Raghavendra Deras MD PCP - General Family Practice 10/07/13 Raghavendra Deras MD PCP - Assigned PCP 01/23/16 04/09/18 Raghavendra Deras MD Assigned PCP 01/23/16 05/14/21 documented as of this encounter
--- OUTSIDE RECORDS SUMMARY | 2021-11-04 10:35 | XMS_ITS | Encounter Summary ---
:1945 Author Organization [place] Address [facility] [place] [address] Care Team Providers Name Role Phone Raghavendra Deras MD Primary Care Provider Unavailable Raghavendra Deras MD Unavailable Unavailable Raghavendra Deras MD Unavailable Unavailable Reason for Visit Diagnostic Imaging XR - Closed Specialty Diagnoses / Procedures Referred By Contact Refer red To Contact Diagnoses Cough Raghavendra Deras MD Procedures XR Chest 2 Views [address] [place] [address] Referral ID Status Reason Start Date Expiration Date Visits Requ ested Visits Authorized [id number] Closed 03/27/2018 03/27/2019 1 1 Encounter Details Date Type Department Care Team Description 03/27/2018 Ancillary Procedure [facility] Raghavendra Deras Ra y, [facility] [address] [place] [phone] Social History Tobacco Use Types Packs/Day Years [...] at Date Recorded Male 01/15/2018 11:39 PM ENGLISH LANGUAGE LEARNER TUTOR documented as of this encounter Plan of Treatment Not on filedocumented as of this encounter Procedures Procedure Name Priority Date/Time Associated Diagnosis Comme nts XR CHEST 2 VIEWS Routine 03/27/2018 2:27 PM Cough Resul ts for this ENGLISH LANGUAGE LEARNER TUTOR procedure are i n the results section. documented in this encounter Results XR Chest 2 Views (03/27/2018 2:27 PM ENGLISH LANGUAGE LEARNER TUTOR) Anatomical Region Laterality Modality Chest Computed Radiography Specimen (Source) Anatomical Location Collection Method / Collectio n Time Received Time / Laterality Volume Impressions 03/27/2018 2:35 PM ENGLISH LANGUAGE LEARNER TUTOR IMPRESSION: Negative. VAHE GILLIAM MD Narrative 03/27/2018 2:35 PM ENGLISH LANGUAGE LEARNER TUTOR XR CHEST 2 VW 03/27/2018 2:34 PM HISTORY: Cough, bilateral wheezing; Coug h Procedure Note Vahe Gilliam MD - 03/27/2018Formatt ing of this note might be different from the original. XR CHEST 2 VW 03/27/2018 2:34 PM HISTORY: Cough, bilateral wheezing; Coug h IMPRESSION: Negative. VAHE GILLIAM MD Raghavendra Deras MD IMG DIAGNOSTIC IMAGING ORDER MICHELLE documented in this encounter Visit Diagnoses Not on filedocumented in this encounter Care Teams Broiler Chef Or Cook Relationship Specialty Start Date End Date Raghavendra Deras MD PCP - General Family Practice 10/07/13 Raghavendra Deras MD PCP - Assigned PCP 01/23/16 04/09/18 Raghavendra Deras MD Assigned PCP 01/23/16 05/14/21 documented as of this encounter
--- OUTSIDE RECORDS SUMMARY | 2021-11-04 10:35 | XMS_ITS | Encounter Summary ---
:1945 Author Organization [place] Address [facility] 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 documented as of this encounter Last Filed Vital Signs Vital Sign Reading Time Taken Comments Blood Pressure 168/88 04/02/2018 11:58 AM DIRECTOR MBA Pulse 92 04/02/2018 11:03 AM DIRECTOR MBA Temperature 37 ??C (98.6 ??F) 04/02/2018 11:03 AM DIRECTOR MBA Respiratory Rate 18 04/02/2018 11:03 AM DIRECTOR MBA Oxygen Saturation 96% 04/02/2018 11:03 AM DIRECTOR MBA Inhaled Oxygen Concentration - - Weight 96.6 kg (213 lb) 04/02/2018 11:03 AM DIRECTOR MBA Height 175.3 cm (5' 9) 04/02/2018 11:03 AM DIRECTOR MBA Body Mass Index 31.45 04/02/2018 11:03 AM DIRECTOR MBA documented in this encounter Progress Notes Raghavendra Deras MD - 04/02/2018 11:00 AM CST SUBJECTIVE: Terry Montero is a 72 year old male who presents to clinic today for the following health issues: Patient here for follow-up of emergency room visit on 03/29/2018 due to uncontrolled hypertension andatypical chest pain. The workup in the emergency room was unremarkable, including EKG and chest x-ray. His blood pressure is uncontrolled with the losartan and doxazosin. Denies chest pain, heart palpit ations, peripheral edema, shortness of breath, lightheadedness, or vision changes. Patient with recent history of acute bronchitis, treated with the albuterol inhaler. He continues tohave a cough. Patient is not using any OTC cold medications. Problem list and histories reviewed & adjusted, as indicated. Additional history: as documented Patient Active Problem List Diagnosis ??? Actinic keratosis ??? Allergic rhinitis ??? Esophageal reflux ??? SCC (squamous cell carcinoma), face ??? History of peptic ulcer disease ??? Essential hypertension ??? Advanced directives, counseling/discussion ??? Adenomatous polyp of colon ??? Benign prostatic hyperplasia with lower urinary tract symptoms ? ? Hyperlipidemia LDL goal <130 Past Surgical History: Procedure Laterality Date ??? COLONOSCOPY 06/05/2013 Procedure: COLONOSCOPY; Surgeon: Matthew Rihcardson MD; Location: [facility] ??? HC COLONOSCOPY THRU STOMA, DIAGNOSTIC 2002 Social History Tobacco Use ??? Smoking status: Former Smoker Packs/day: 0.50 Years: 20.00 Pack years: 10.00 Types: Cigarettes Last attempt to quit: 02/06/1984 Years since quittin.1 ??? Smokeless tobacco: Never Used Substance Use [...] History Negative Father ??? C.A.D. Maternal Uncle [place] ??? Cancer - colorectal Maternal Uncle ??? Prostate Cancer Other Cousin Reviewed and updated as needed this visit by clinical staff Tobacco Allergies Meds Reviewed and updated as needed this visit by Provider ROS: RESP: POSITIVE for cough, NEGATIVE for SOB CV: POSITIVE for Hx of Hypertension, NEGATIVE for chest pain, palpitations or peripheral edema This document serves as a record of the services and decisions personally performed and made by Raghavendra Deras MD. It was created on his behalf by Radha Mobley, a trained medical laboratory assistant. The creation of this document is based on the provider's statements to the medical laboratory assistant. Radha Mobley 11:51 AM April 02, 2018 OBJECTIVE: BP 168/88 (BP Location: Right arm, Patient Position: Chair) Pulse 92 Temp 98.6 ??F (37 ??C) (Oral) Resp 18 Ht 1.753 m (5' 9) Wt 96.6 kg (213 lb) SpO2 96% BMI 31.45 kg/m?? Body mass index is 31.45 kg/m??. GENERAL: healthy, alert and no distress RESP: lungs clear to auscultation - no rales, rhonchi or wheezes CV: regular rate and rhythm, normal S1 S2, no S3 or S4, no murmur, click or rub, no peripheral edemaand peripheral pulses strong ASSESSMENT/PLAN: 1. Essential hypertension Unclear of etiology of rising blood pressure which was well controlled at his recent physical. Agreewith increasing losartan to 50 mg though he is still not controlled and I would increase regimen with adding hydrochlorothiazide 25 mg daily which he has previously been on in the past. Unclear if thisis just recent illness that is raising blood pressure or other issue. Recommend nurse recheck blood pressure in 3 days. - hydrochlorothiazide (HYDRODIURIL) 25 MG tablet; Take 1 tablet (25 mg) by mouth daily Dispense: 30 tablet; Refill: 1 - losartan (COZAAR) 25 MG tablet; Take 2 tablets (50 mg) by mouth daily Dispense: 90 tablet; Refill:3 The information in this document, created by the medical laboratory assistant for me, accurately reflects the services I personally performed and the decisions made by me. I have reviewed and approved this document for accuracy prior to leaving the patient care area. April 02, 2018 12:05 PM Raghavendra Deras MD [facility] MBA documented in this encounter Plan of Treatment Not on filedocumented as of this encounter Visit Diagnoses Diagnosis Essential hypertension - Primary Unspecified essential hypertension documented in this encounter Care Teams Handle Lathe Operator Relationship Specialty Start Date End Date Raghavendra Deras MD PCP - General Family Practice 10/07/13 Raghavendra Deras MD PCP - Assigned PCP 01/23/16 04/09/18 Raghavendra Deras MD Assigned PCP 01/23/16 05/14/21 documented as of this encounter
--- OUTSIDE RECORDS SUMMARY | 2021-11-04 10:35 | XMS_ITS | Encounter Summary ---
:1945 Author Organization [place] Address [facility] [place] [address] Care Team Providers Name Role Phone Raghavendra Deras MD Primary Care Provider Unavailable Raghavendra Deras MD Unavailable Unavailable Raghavendra Deras MD Unavailable Unavailable Reason for Visit Reason Comments Medication Refill omeprazole (PRILOSEC) 40 MG capsule Encounter Details Date Type Department Care Team Description 02/07/2018 Refill [facility] Raghavendra Deras Ra, Medication Refill Candy SALDIVAR (omeprazole (PRILOSEC) [id number] [facility] 40 MG capsule ) [place] [address] Social History Tobacco Use [...] at Date Recorded Male 01/15/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 omeprazole (PRILOSEC) [address] capsule [Pharmacy Med Name: OMEPRAZOLE 40 MG Capsule Delayed Release] Last Written Prescription Date: 01/31/2017 Last Fill Quantity: 90, # refills: 3 Last office visit: 01/09/2018 with prescribing provider: 01/09/2018 Future Office Visit: 90 capsule 3 Sig: TAKE 1 CAPSULE (40 MG) BY MOUTH DAILY TAKE 30-60 MINUTES BEFORE A MEAL. PPI Protocol Passed - 02/07/2018 3:42 PM Passed - Not on Clopidogrel (unless Pantoprazole ordered) Passed - No diagnosis of osteoporosis on record Passed - Recent (12 mo) or future (30 days) visit within the authorizing provider's specialty Patient had office visit in the last 12 months or has a visit in the next 30 days with authorizing provider or within the authorizing provider's specialty. See Patient Info tab in inbasket, or Choose Columns in Meds & Orders section of the refill encounter. Passed - Patient is age 18 or older IT CONTROL OFFICER documented in this encounter Plan of Treatment Not on filedocumented as of this encounter Visit Diagnoses Diagnosis History of peptic ulcer disease Personal history of peptic ulcer disease documented in this encounter Care Teams Tar Pot Worker Relationship Specialty Start Date End Date Raghavendra Deras MD PCP - General Family Practice 10/07/13 Raghavendra Deras MD PCP - Assigned PCP 01/23/16 04/09/18 Raghavendra Deras MD Assigned PCP 01/23/16 05/14/21 documented as of this encounter
--- OUTSIDE RECORDS SUMMARY | 2021-11-04 10:35 | XMS_ITS | Encounter Summary ---
:1945 Author Organization [place] Address [facility] [place] [address] Care Team Providers Name Role Phone Raghavendra Deras MD Primary Care Provider Unavailable Raghavendra Deras MD Unavailable Unavailable Raghavendra Deras MD Unavailable Unavailable Reason for Visit Diagnostic Imaging XR - Closed Specialty Diagnoses / Procedures Referred By Contact Refer red To Contact Diagnoses Midline low back pain without sciatica, unspecified chronicity Raghavendra Deras MD Procedures XR Lumbar Spine 2/3 Views [id number] [place] [address] Referral ID Status Reason Start Date Expiration Date Visits Requ ested Visits Authorized [id number] Closed 01/09/2018 01/09/2019 1 1 Encounter Details Date Type Department Care Team Description 01/09/2018 Radiant Appointment [facility] Raghavendra Deras low back Clinic Candy Alan MD pain without [address] sciatica, [place] unspecified [id number] chronicity [phone] Social History Tobacco Use Types Packs/Day Years [...] at Date Recorded Male 01/15/2018 11:39 PM CONSTRUCTION GRIP documented as of this encounter Plan of Treatment Not on filedocumented as of this encounter Procedures Procedure Name Priority Date/Time Associated Diagnosis Comme nts XR LUMBAR SPINE 2/3 Routine 01/09/2018 11:11 AM Midline low ba ck Results for this VIEWS CONSTRUCTION GRIP pain without procedure are i n sciatica, the results unspecified section. chronicity documented in this encounter Results XR Lumbar Spine 2/3 Views (01/09/2018 11:11 AM CONSTRUCTION GRIP) Anatomical Region Laterality Modality Spine, T-spine, L-spine, Abdomen/Pelvis Computed Radiography Specimen (Source) Anatomical Location Collection Method / Collectio n Time Received Time / Laterality Volume Impressions 01/10/2018 7:37 AM CONSTRUCTION GRIP IMPRESSION: Degenerative change, stable in comparison with 2016. AWAIS PRATHER MD Narrative 01/10/2018 7:37 AM CONSTRUCTION GRIP XR LUMBAR SPINE 2-3 VIEWS 01/09/2018 11:11 AM HISTORY: Ongoing back pain. COMPARISON: 10/06/2015 FINDINGS: Anterolisthesis at L5-S1 appea rs stable in comparison with 2016. Alignment is otherwise anatomic. V ertebral body heights and disc spaces are otherwise preserved. Small ma rginal osteophytes in the mid lumbar spine reflect mild degenerative c hange. Procedure Note Awais Prather MD - 01/10/2018For matting of this note might be different from the original. XR LUMBAR SPINE 2-3 VIEWS 01/09/2018 11:1 1 AM HISTORY: Ongoing back pain. COMPARISON: 10/06/2015 FINDINGS: Anterolisthesis at L5-S1 appea rs stable in comparison with 2016. Alignment is otherwise anatomic. V ertebral body heights and disc spaces are otherwise preserved. Small ma rginal osteophytes in the mid lumbar spine reflect mild degenerative c hange. IMPRESSION: Degenerative change, stable in comparison with 2016. AWAIS PRATHER MD Raghavendra Deras MD IMG DIAGNOSTIC IMAGING ORDER MICHELLE documented in this encounter Visit Diagnoses Diagnosis Midline low back pain without sciatica, unspecified chronicity documented in this encounter Care Teams Pot Operator Relationship Specialty Start Date End Date Raghavendra Deras MD PCP - General Family Practice 10/07/13 Raghavendra Deras MD PCP - Assigned PCP 01/23/16 04/09/18 Raghavendra Deras MD Assigned PCP 01/23/16 05/14/21 documented as of this encounter
--- OUTSIDE RECORDS SUMMARY | 2021-11-04 10:35 | XMS_ITS | Encounter Summary ---
:1945 Author Organization [place] Address [address] [facility] [place] [address] Care Team Providers Name Role Phone Raghavendra Deras MD Primary Care Provider Unavailable Raghavendra Deras MD Unavailable Unavailable Raghavendra Deras MD Unavailable Unavailable Reason for Visit Reason Comments Hypertension Encounter Details Date Type Department Care Team Description 03/29/2018 Emergency [facility] Mary Weber MD Hypertension, unspecified type; [facility] Emergency Dep t EMERGENCY PHYSICIANS Atypical chest pain [address] [place], [place] [address] [facility] [id number] [place], [place] [id number] (Wo rk) Social History Tobacco Use Types [...] at Date Recorded Male 01/15/2018 11:39 PM WELDER EXPERIMENTAL documented as of this encounter Last Filed Vital Signs Vital Sign Reading Time Taken Comments Blood Pressure 177/96 03/29/2018 4:15 PM WELDER EXPERIMENTAL Pulse 70 03/29/2018 4:15 PM WELDER EXPERIMENTAL Temperature 37.1 ??C (98.8 ??F) 03/29/2018 2:45 PM WELDER EXPERIMENTAL Respiratory Rate 16 03/29/2018 4:15 PM WELDER EXPERIMENTAL Oxygen Saturation 95% 03/29/2018 4:15 PM WELDER EXPERIMENTAL Inhaled Oxygen Concentration - - Weight - - Height - - Body Mass Index - - documented in this encounter Discharge Instructions Discharge InstructionsTiffany Anaya RN - 03/29/2018 4:06 PM CST Return to the ED for any changing or worsening symptoms, recurrent chest pain, shortness of breath, nausea or vomiting, sweaty sensation, new concerns. Check your pressure 3 times a day tomorrow and Sunday and record these results. Bring them to your primary care office on Sunday for recheck. Continueyour daily medications as prescribed. Discharge Instructions Hypertension - High Blood Pressure During you visit to the Emergency Department, your blood pressure was higher than the recommended blood pressure. This may be related to stress, pain, medication or other temporary conditions. In thesecases, your blood pressure may return to normal on its own. If you have a history of high blood pressure, you may need to have your doctor adjust your medications. Sometimes, your high measurement heremay indicate that you have developed high blood pressure that will stay high unless it is treated. Sudden very high blood pressure can cause problems, but usually high blood pressure causes problems over months to years. Blood pressure is almost never lowered in the Emergency Department, because studies have shown that lowering blood pressure too quickly is much more dangerous than leaving it alone. You need to follow up with your doctor in 1-3 days to get your blood pressure rechecked. Return to the Emergency Department if you start to have: ??? A severe headache. ??? Chest pain. ??? Shortness of breath. ??? Weakness or numbness that affects one part of the body. ??? Confusion. ??? Vision changes. ??? Significant swelling of legs and/or eyes. ??? A reaction to any medication started in the Emergency Department. What can I do to help myself? Avoid alcohol. ??? Take any blood pressure medicine that you are prescribed. ??? Get a good night???s sleep. ??? Lower your salt intake. ??? Exercise. ??? Lose weight. ??? Manage stress. If blood pressure medication was started in the Emergency Department: ??? The medicine may not have an immediate effect. The body and brain determine what blood pressure you have. The medicine???s job is to retrain the body???s ???thermostat?? to a lower blood pressure. ??? You will need to follow up with your doctor to see how this medicine is working for you. If you were given a prescription for medicine here today, be sure to read all of the information (including the package insert) that comes with your prescription. This will include important information about the medicine, its side effects, and any warnings that you need to know about. The pharmacist who fills the prescription can provide more information and answer questions you may have about the medicine. If you have questions or concerns that the pharmacist cannot address, please call or return to the Emergency Department. Remember that you can always come back to the Emergency Department if you are not able to see your regular doctor in the amount of time listed above, if you get any new symptoms, or if there is anything that worries you. ER EXPERIMENTAL documented in this encounter Medications at Time of Discharge Medication Sig Dispensed Refills Start Date End Date fish oil-omega-3 fatty Take 2 capsules (2 90 capsule 0 10/07 acids 1000 MG capsule g) by mouth daily PT IS NOW [...] hyperplasia with Bedtime nocturia fluticasone (FLONASE) [address] 1-2 sprays 1 Bottle 3 01/1108/05/2018 MCG/ACT sprayIndications: into both nostrils Seasonal allergic daily rhinitis, unspecified allergic rhinitis trigger losartan (COZAAR) 25 MG TAKE 1 TABLET 90 tablet 3 9 04/02/2018 tabletIndications: EVERY DAY Essential hypertension omeprazole (PRILOSEC) 20 Take 1 capsule (20 90 capsule 3 01/201907/31/[address] capsuleIndications: mg) by mouth daily History of peptic ulcer disease, Gastroesophageal reflux disease, esophagitis presence not specified simvastatin (ZOCOR) 20 MG Take 1 tablet (20 90 tablet 3 01/201903/17/2019 tabletIndications: mg) by mouth At Hyperlipidemia LDL goal Bedtime <130 documented as of this encounter ED Notes Tiffany Anaya RN - 03/29/2018 2:57 PM CST Pt to radiology ER EXPERIMENTAL Nunu French RN - 03/29/2018 1:36 PM CST Was seen 2 days ago and diagnosed with bronchiolitis. Pain in right upper chest today for about 20 seconds. Pain free now. Cough has improved since. Patient has been taking BP at home and having high readings. ER EXPERIMENTAL Ebony Armstrong PA - 03/29/2018 1:19 PM CST History Chief Complaint: Hypertension HPI Terry Montero is a 72 year old male who presents with hypertension and chest pain. Details ofthe patient's history can be noted in the HPI. The patient states that for the past few days he has had a persistent cough. He presented to his primary care office on 03/27 and an x-ray was completed. This returned showing no signs of pneumonia, results below. He was diagnosed with bronchitis and placed on albuterol inhaler. At his doctor's office, his blood pressure was at normal range. For the past 2 days he has been checking his blood pressure on his home monitor. He notes that it has gradually increased throughout the time. Readings were as high as 160/90. He went back to his clinic yesterday, 03/28/18 for a RN visit for BP check. Pressures were elevated and a provider that was not his primary advised to double his dose of losartan. He has not started this as he wishes to talk to his primary before completing this. He called his primary today and as he was doing so, had a 10-second episode of left sided chest pain that was sharp and nonradiating in nature. He denies any associated shortness of breath, diaphoresis, nausea or vomiting, left arm involvement. He was at rest when the symptoms began. It was not pleuritic. It has since resolved and he has not had any additional episodes of pain. This happened at approximately 1230. After calling and nurse triage line, they suggested that he come to the ED for further evaluation. He states that he has a history of hypertension and borderline hyperlipidemia. He takes medications for both. He has never had a cardiac event in the past. He had a stress test completed 10 years ago which was normal. He has no significant family history for cardiac disease. Denies any prior history of DVT or PE, no clotting disorder, no calf pain or swelling, no recent travel, no hospitalizations or surgeries. No recent medication changes. However, the patient has been using the albuterol inhaler approximately every 6 hours. He notes that his cough has improved. Hehas not had any fevers, cough has not been productive, no nasal congestion, no nausea or vomiting, no urinary complaints. Patient does not have a history of kidney disorder. The patient is chest pain free here, no other symptoms noted. Chest Xray 03/27/18 HISTORY: Cough, bilateral wheezing; Cough IMPRESSION: Negative. VAHE HOPSON MD Allergies: Mometasone furoate monohydrate Quinazolines Medications: Albuterol inhaler Cardura Losartan Prilosec Simvastatin Past Medical History: Arthitis BPH HTN Hyperlipidemia Past Surgical History: The patient does not have any pertinent past surgical history. Family History: Cancer Heart disease Prostate cancer Social History: Former smoker. Positive for alcohol use. Comment: 1 oz per week. Presents the ED by himself PCP: Raghavendra Deras Review of Systems Constitutional: Negative for fever. Respiratory: Negative for shortness of breath. Cardiovascular: Positive for chest pain. Negative for palpitations and leg swelling. Gastrointestinal: Negative for abdominal pain, nausea and vomiting. Skin: Negative for rash. Neurological: Negative for dizziness, weakness, numbness and headaches. All other systems reviewed and are negative. Physical Exam Patient Vitals for the past 24 hrs: BP Temp Temp src Pulse Heart Rate Resp SpO2 03/29/18 1615 (!) 177/96 -- -- 70 68 16 95 % 03/29/18 1600 (!) 179/111 -- -- 71 69 17 97 % 03/29/18 1530 (!) 165/94 -- -- 69 73 -- 95 % 03/29/18 1515 (!) 175/94 -- -- 68 70 18 94 % 03/29/18 1445 (!) 194/114 98.8 ??F (37.1 ??C) Oral 75 68 (!) 5 97 % 03/29/18 1420 (!) 198/115 -- -- 74 74 15 -- 03/29/18 1338 (!) 200/119 -- -- -- -- -- -- Physical Exam General: Well appearing, well nourished. Mildly anxious appearing. Skin: Good turgor, no rash, no unusual bruising or prominent lesions. HEENT: Head: Normocephalic, atraumatic, no visible masses. Eyes: Conjunctiva clear. Throat/pharynx: Mucous membranes moist, no mucosal lesions. Neck: Supple, without lymphadenopathy. Cardiac: Normal rate and regular rhythm, no murmur or gallop. Lungs: Clear to auscultation. Abdomen: Abdomen soft, non-tender. No rebound tenderness of guarding. Musculoskeletal: Normal gait and station. No calf tenderness or swelling. Neurologic: Oriented x 3. GCS: 15. Normal sensation throughout bilateral lower extremities. Normal finger to nose and rapid hand movements. Psychiatric: Intact recent and remote memory, judgment and insight, normal mood and affect. Emergency Department Course ECG: Indication: HTN Time: 1345 Vent. Rate 73 bpm. AL interval 138. QRS duration 96. QT/QTc 394/434. P-R-T axis -16 -8 13. Normal sinus rhythm. Minimal voltage criteria for LVH, may be normal variant. Borderline ECG. Read time: [address] Weber. Imaging: XR Chest 2 Views Final Result IMPRESSION: No acute cardiopulmonary abnormality. EDGARDO PRATHER MD Laboratory: Labs Ordered and Resulted from Time of ED Arrival Up to the Time of Departure from the ED CBC WITH PLATELETS DIFFERENTIAL COMPREHENSIVE METABOLIC PANEL LIPASE TROPONIN I PERIPHERAL IV CATHETER CARDIAC CONTINUOUS MONITORING Procedures: None Interventions: None Emergency Department Course: Past medical records, nursing notes, and vitals reviewed. I performed an exam of the patient and obtained history, as documented above. 1530 I reevaluated the patient and updated him as to the results of his workup thus far. The patientcontinues to feel well. No additional episodes of chest pain. Blood pressures have decreased. Treatment plan discussed. All questions answered prior to discharge. Patient in agreement with discharge and the treatment plan. Impression & Plan Medical Decision Making: Terry Montero is a 72 year old male who presented the ED today for evaluation of elevated blood pressure and momentary chest discomfort. Details the patient's history can be noted in the HPI. Patient does have a history of hypertension. It was my greatest suspicion that due to the patient's recent illness, use of albuterol, age-related changes, that these caused increase in his underlying hypertension. Due to the patient's episode of chest discomfort, workup for cardiac pathology was completed here today. Differentials considered included ACS, PE, costochondritis, dissection, pneumothorax, gastritis, gallbladder pathology, pericarditis, myocarditis, etc. Workup here today was largely unremarkable. Normal ECG. Troponin within normal limits. Patient's heart score is 3, low risk. Patient's story of chest pain was not significantly concerning here today his pain lasted 10 seconds, there is noassociated symptoms, no recurrence of the pain since initial event. Patient is also low risk for PE.Patient was not tachycardic or hypoxic, pain was not pleuritic, he has no other risk factors. I do not feel that additional workup for PE was necessary. Throughout the patient's stay, blood pressure decreased. The patient has no other signs on workup orexam here today for signs of end-organ dysfunction. There are also no signs of hypertensive emergency or urgency. Again, I suspect that his recent illness and albuterol inhaler are contributing to the increase in blood pressure. He has been taking albuterol consistently every 6 hours. As his cough hasimproved, I advised him to avoid using this for the weekend if possible. He will take his blood pressure 3 times a day for Sunday and Sunday. He will then follow-up with his primary care provider on Sunday for recheck, and bring his blood pressure readings from the weekend. Due to his persistently el evated pressures, he will also double his losartan, now taking 50 mg/day. The patient will return tot ED for any recurrence or worsening chest pain, shortness of breath, diaphoresis, nausea or vomiting, abdominal pain, new concerns. Follow-up with primary on Sunday for recheck. All questions were an swered per the patient's discharge. He appears well here and is vitally stable, wishing to be discharged. He was in agreement with the treatment plan as stated above. Diagnosis: ICD-10-CM 1. Hypertension, unspecified type I10 2. Atypical chest pain R07.89 Discharge Medications: None ION Reagan This was created at least in part with a voice recognition software. Mistakes/typos may be present. Ebony Armstrong PA 03/30/18 1329 ER EXPERIMENTAL Mary Weber MD - 03/29/2018 1:19 PM CST Emergency Department Attending Supervision Note 03/29/2018 3:36 PM I evaluated this patient in conjunction with ION Sommer. Briefly, the patient presented with hypertension. He is on losartan for HTN and was told to monitor BP. It was elevated to 160s systolic yesterday and he was told to take an extra dose of losartan. Today it was still elevated at home prompting his concern. He then developed left upper chest pain lasting <30 seconds and was told to come to the ER for evaluation. Chest pain resolved spontaneously and he has had no recurrence. He is being treated for bronchitis with albuterol and is very concerned his HTN is related to this medication. He denies current chest pain. He never had headache, vision changes, or confusion. On my exam, patient appears well. He is moderately hypertensive to 170s systolic/90s diastolic, improved without intervention from 200/119 upon arrival. Results: Patient's EKG is reassuring without acute ST change arrhythmia. CBC, BMP, and lipase unremarkable. See details in results review. Undetectable troponin. Negative CXR. ED course: As above patient had no recurrence of chest pain and no other symptoms. His BP, while still elevated, improved spontaneously while in the ER. There is no evidence of end organ damage relatedto this HTN without kidney injury or NSTEMI and, without headache, vision changes, or confusion there is no indication for brain imaging. Workup today is unremarkable including EKG. Patient's CP is unlikely to be due to worrisome pathology, lasting only seconds. It is unlikely to be cardiac in etiology and not consistent with angina, PE, or aortic dissection. I find it unlikely that HTN is related toalbuterol though I have discussed he can use this medication as needed rather than scheduled if thisis concerning to him. I have recommended continued monitoring of BP and follow up with PCP. I believe it to be reasonable to take an additional dose of losartan should he remain hypertensive. APC and Molina discussed with patient follow up and return precautions and answered all the his questions. He v erbalized understanding and is amenable to discharge with primary follow up. My impression is: 1. Uncontrolled hypertension 2. Atypical chest pain, resolved Diagnosis ICD-10-CM 1. Hypertension, unspecified type I10 2. Atypical chest pain R07.89 Mary Weber MD 04/01/182033 ER EXPERIMENTAL documented in this encounter Plan of Treatment Not on filedocumented as of this encounter Procedures Procedure Name Priority Date/Time Associated Comments Diagnosis XR CHEST 2 VIEWS STAT 03/29/2018 2:57 PM Resul ts for this WELDER EXPERIMENTAL procedure are i n the results section. CBC WITH PLATELETS & STAT 03/29/2018 2:40 PM R esults for this DIFFERENTIAL WELDER EXPERIMENTAL procedure are i n the results section. TROPONIN I STAT 03/29/2018 2:40 PM Results f or this WELDER EXPERIMENTAL procedure are i n the results section. LIPASE STAT 03/29/2018 2:40 PM Results f or this WELDER EXPERIMENTAL procedure are i n the results section. COMPREHENSIVE STAT 03/29/2018 2:40 PM Results for this METABOLIC PANEL WELDER EXPERIMENTAL procedure ar e in the results section. EKG 12-LEAD, TRACING STAT 03/29/2018 1:45 PM R esults for this ONLY WELDER EXPERIMENTAL procedure are i n the results section. documented in this encounter Results XR Chest 2 Views (03/29/2018 2:57 PM WELDER EXPERIMENTAL) Anatomical Region Laterality Modality Chest Digital Radiography Specimen (Source) Anatomical Location Collection Method / Collectio n Time Received Time / Laterality Volume Impressions 03/29/2018 2:59 PM WELDER EXPERIMENTAL IMPRESSION: No acute cardiopulmonary abnormality. EDGARDO PRATHER MD Narrative 03/29/2018 2:59 PM WELDER EXPERIMENTAL XR CHEST 2 VW 03/29/2018 2:57 PM HISTORY: Chest pain, HTN COMPARISON: 03/27/2018 FINDINGS: No airspace consolidation, ple ural effusion or pneumothorax. Normal heart size. Procedure Note Edgardo Prather MD - 03/29/2018For matting of this note might be different from the original. XR CHEST 2 VW 03/29/2018 2:57 PM HISTORY: Chest pain, HTN COMPARISON: 03/27/2018 FINDINGS: No airspace consolidation, ple ural effusion or pneumothorax. Normal heart size. IMPRESSION: No acute cardiopulmonary abn ormality. EDGARDO PRATHER MD Ebony [facility] IMG DIAGNOSTIC IMAGING ORDER MICHELLE Troponin I (03/29/2018 2:40 PM WELDER EXPERIMENTAL) athologist Signature Troponin I ES <0.015 0.000 - 03/29/2018 [facility] 0.045 ug/L 3:16 PM [facility] Comment: The 99th percentile for upper reference range is 0.045 ug/L. ??Troponin values in the range of 0.045 - 0.120 ug/L may b e associated with risks of adverse clinical events. Specimen Anatomical Collection Method Collection Time Receive d Time (Source) Location / / Volume Laterality Blood specimen 03/29/2018 2:40 PM 019 2:47 (specimen) WELDER EXPERIMENTAL PM WELDER EXPERIMENTAL Ebony [facility] LAB - BLOOD ORDERABLES Performing Organization Address City/State/ZIP Code Phon e Number M [facility] [address] [address] [facility] [address] [phone] Lipase (03/29/2018 2:40 PM WELDER EXPERIMENTAL) athologist Signature Lipase 192 73 - 393 03/29/2018 [facility] U/L 3:14 PM [facility] Specimen Anatomical Collection Method Collection Time Receive d Time (Source) Location / / Volume Laterality Blood specimen 03/29/2018 2:40 PM 019 2:47 (specimen) WELDER EXPERIMENTAL PM WELDER EXPERIMENTAL Ebony LEM[facility] LAB - BLOOD ORDERABLES Performing Organization Address City/State/ZIP Code Phon e Number M [facility] [address] [place], [place] [address] [facility] [address] [place], [place] [address] [place] [address] Comprehensive metabolic panel (03/29/2018 2:40 PM WELDER EXPERIMENTAL) athologist Signature Sodium 140 133 - 144 03/29/2018 [facility] mmol/L 3:06 PM [facility] Potassium 4.0 3.4 - 5.3 03/29/2018 [facility] mmol/L 3:06 PM [facility] Chloride 109 94 - 109 03/29/2018 [facility] mmol/L 3:06 PM [facility] Carbon Dioxide 25 20 - 32 03/29/2018 [place] mmol/L 3:11 PM [facility] Anion Gap 6 3 - 14 03/29/2018 [facility] mmol/L 3:11 PM [facility] Glucose 85 70 - 99 03/29/2018 [place] mg/dL 3:11 PM [facility] Urea Nitrogen 13 7 - 30 03/29/2018 [place] mg/dL 3:11 PM [facility] Creatinine 0.98 0.66 - 03/29/2018 [facility] 1.25 mg/dL 3:11 PM [facility] GFR Estimate 76 >60 03/29/2018 [place] mL/min/{1. 3:11 PM [facility] 73_m2} HOSPITAL Comment: Non GFR Calc Starting 01/22/2018, serum creatinine ba sed estimated GFR (eGFR) will be calculated using the Chronic Kidney Dise [facility] Epidemiology Collaboration (CKD-EPI) equation. GFR Estimate If 88 >60 mL/min/{1.73_m2} 03/29/2018 3: [address] [facility] Comment: GFR Calc Starting 01/22/2018, serum creatinine ba sed estimated GFR (eGFR) will be calculated using the Chronic Kidney Dise [facility] Epidemiology Collaboration (CKD-EPI) equation. Calcium 8.6 8.5 - 10.1 mg/dL 03/29/2018 3:11 PM [facility] Bilirubin Total 0.4 0.2 - 1.3 mg/dL 03/29/2018 3:14 PM [facility] Albumin 4.0 3.4 - 5.0 g/dL 03/29/2018 3:[address] [facility] Protein Total 7.8 6.8 - 8.8 g/dL 03/29/2018 3:14 PM [facility] Alkaline Phosphatase 128 40 - 150 U/L 03/29/2018 3:14 PM [facility] ALT 39 0 - 70 U/L 03/29/2018 3:14 PM [facility] AST 30 0 - 45 U/L 03/29/2018 3:14 PM [facility] Specimen Anatomical Collection Method Collection Time Receive d Time (Source) Location / / Volume Laterality Blood specimen 03/29/2018 2:40 PM 019 2:47 (specimen) WELDER EXPERIMENTAL PM WELDER EXPERIMENTAL Ebony LEM[facility] LAB - BLOOD ORDERABLES Performing Organization Address City/State/ZIP Code Phon e Number M [facility] [address] [address] [facility] [address] [phone] CBC with platelets differential (03/29/2018 2:40 PM WELDER EXPERIMENTAL) [facility] Method Time Signature WBC 4.9 4.0 - 03/29/2018 [facility] 11.0 2:53 PM [facility] 10e9/L [facility] RBC Count 4.63 4.4 - 5.9 03/29/2018 [facility] 10e12/L 2:53 PM [facility] Hemoglobin 13.4 13.3 - 03/29/2018 [facility] 17.7 g/dL 2:53 PM [facility] Hematocrit 40.7 40.0 - 03/29/2018 [facility] 53.0 % 2:53 PM [facility] MCV 88 78 - 100 03/29/2018 [facility] fl 2:53 PM [facility] MCH 28.9 26.5 - 03/29/2018 [facility] 33.0 pg 2:53 PM [facility] 32.9 31.5 - 03/29/2018 [facility] 36.5 g/dL 2:53 PM [facility] RDW 13.2 10.0 - 03/29/2018 [facility] 15.0 % 2:53 PM [facility] Platelet Count 168 150 - 450 03/29/2018 [facility] 10e9/L 2:53 PM [facility] Diff Method Automated 03/29/2018 [facility] Method 2:53 PM [facility] % Neutrophils 60.5 % 03/29/2018 [facility] 2:53 PM [facility] % Lymphocytes 31.4 % 03/29/2018 [facility] 2:53 PM [facility] % Monocytes 6.3 % 03/29/2018 [facility] 2:53 PM [facility] % Eosinophils 0.8 % 03/29/2018 [facility] 2:53 PM [facility] % Basophils 0.8 % 03/29/2018 [facility] 2:53 PM [facility] % Immature 0.2 % 03/29/2018 [facility] Granulocytes 2:53 PM [facility] Nucleated RBCs 0 0 /100 03/29/2018 [facility] 2:53 PM [facility] Absolute 3.0 1.6 - 8.3 03/29/2018 [facility] Neutrophil 10e9/L 2:53 PM [facility] Absolute 1.5 0.8 - 5.3 03/29/2018 [facility] Lymphocytes 10e9/L 2:53 PM [facility] Absolute 0.3 0.0 - 1.3 03/29/2018 [facility] Monocytes 10e9/L 2:53 PM [facility] Absolute 0.0 0.0 - 0.7 03/29/2018 [facility] Eosinophils 10e9/L 2:53 PM [facility] Absolute 0.0 0.0 - 0.2 03/29/2018 [facility] Basophils 10e9/L 2:53 PM [facility] Abs Immature 0.0 0 - 0.4 03/29/2018 [facility] Granulocytes 10e9/L 2:53 PM [facility] Absolute 0.0 03/29/2018 [facility] Nucleated RBC 2:53 PM [facility] Specimen Anatomical Collection Method Collection Time Receive d Time (Source) Location / / Volume Laterality Blood specimen 03/29/2018 2:40 PM 019 2:47 (specimen) WELDER EXPERIMENTAL PM [facility] - BLOOD ORDERABLES Performing Organization Address City/State/ZIP Code Phon e Number [facility] [address], [place] [address] [facility] [address], [place] [address] [facility] [phone] EKG 12 lead (03/29/2018 1:45 PM WELDER EXPERIMENTAL) [place] gist Method Time Signature Interpretation ECG Click View RADIOLOGY Image link RESULTS to view waveform and result Specimen (Source) Anatomical Collection Method Collection Time Re ceived Time Location / / Volume Laterality 03/29/2018 1:45 PM WELDER EXPERIMENTAL Mary Weber MD ECG ORDERABLES Performing Organization Address City/State/ZIP Code Phon e Number RADIOLOGY RESULTS documented in this encounter Visit Diagnoses Diagnosis Hypertension, unspecified type Atypical chest pain Other chest pain documented in this encounter Care Teams End Polisher Relationship Specialty Start Date End Date Raghavendra Deras MD PCP - General Family Practice 10/07/13 Raghavendra Deras MD PCP - Assigned PCP 01/23/16 04/09/18 Raghavendra Deras MD Assigned PCP 01/23/16 05/14/21 documented as of this encounter
--- OUTSIDE RECORDS SUMMARY | 2021-11-04 10:35 | XMS_ITS | Encounter Summary ---
:1945 Author Organization [place] Address [address] [facility] [place] [address] Care Team Providers Name Role Phone Raghavendra Deras MD Primary Care Provider Unavailable Raghavendra Deras MD Unavailable Unavailable Raghavendra Deras MD Unavailable Unavailable Reason for Referral Diagnostic Procedure Outpatient - Closed Specialty Diagnoses / Procedures Referred By Contact Refer red To Contact Diagnoses Colon cancer screening Raghavendra Deras MD [facility] [address] [place] [address] [address] [place] [address] Phone: Fax: Referral ID Status Reason Start Date Expiration Date Visits Requ ested Visits Authorized [id number] Closed 03/19/2018 03/19/2019 1 1 D SPEC Reason for Visit Reason Comments Wellness Visit Encounter Details Date Type Department Care Team Description 03/19/2018 Office Visit [facility] BraedenRaghavendra g eneral medical examination at a health care facility (Primary Dx); Clinic Candy Alan MD History of peptic ulcer dise ase; [address] [facility] Gastroesophageal reflux dise ase, esophagitis presence not specified; [place], [place] Essential hype rtension; [id number] Hyperlipidemia LDL goal <130 ; [phone] Hypertension go al BP (blood pressure) < 140/90; Benign prostati c hyperplasia with nocturia; Colon cancer sc reening Social History Tobacco Use Types Packs/Day Years [...] Date Recorded Male 01/15/2018 11:39 PM FIELD SPEC documented as of this encounter Last Filed Vital Signs Vital Sign Reading Time Taken Comments Blood Pressure 132/82 03/19/2018 10:01 AM FIELD SPEC Pulse 95 03/19/2018 10:01 AM FIELD SPEC Temperature 36.7 ??C (98.1 ??F) 03/19/2018 10:01 AM FIELD SPEC Respiratory Rate - - Oxygen Saturation 95% 03/19/2018 10:01 AM FIELD SPEC Inhaled Oxygen Concentration - - Weight 97.5 kg (215 lb) 03/19/2018 10:01 AM FIELD SPEC Height 175.3 cm (5' 9) 03/19/2018 10:01 AM FIELD SPEC Body Mass Index 31.75 03/19/2018 10:01 AM FIELD SPEC documented in this encounter Patient Instructions Patient Fatemeh Tubbs CMA - 03/19/2018 10:00 AM CST Preventive Health Recommendations: See your health care provider every year to ?? Review health changes. ?? Discuss preventive care. ?? Review your medicines if your doctor has prescribed any. ??? Talk with your health care provider about whether you should have a test to screen for prostate cancer (PSA). ??? Every 3 years, have a diabetes test (fasting glucose). If you are at risk for diabetes, you should have this test more often. ??? Every 5 years, have a cholesterol test. Have this test more often if you are at risk for high cholesterol or heart disease. ??? Every 10 years, have a colonoscopy. Or, have a yearly FIT test (stool test). These exams will check for colon cancer. ??? Talk to with your health care provider about screening for Abdominal Aortic Aneurysm if you havea family history of AAA or have a history of smoking. Shots: ??? Get a flu shot each year. ??? Get a tetanus shot every 10 years. ??? Talk to your doctor about your pneumonia vaccines. There are now two you should receive - Pneumovax (PPSV 23) and Prevnar (PCV 13). ??? Talk to your pharmacist about a shingles vaccine. ??? Talk to your doctor about the hepatitis B vaccine. Nutrition: ??? Eat at least 5 servings of fruits and vegetables each day. ??? Eat whole-grain bread, whole-wheat pasta and brown rice instead of white grains and rice. ??? Get adequate Calcium and Vitamin D. Lifestyle ??? Exercise for at least 150 minutes a week (30 minutes a day, 5 days a week). This will help you control your weight and prevent disease. ??? Limit alcohol to one drink per day. ??? No smoking. ??? Wear sunscreen to prevent skin cancer. ??? See your dentist every six months for an exam and cleaning. ??? See your eye doctor every 1 to 2 years to screen for conditions such as glaucoma, macular degeneration and cataracts. Personalized Prevention Plan You are due for the preventive services outlined below. Your care team is available to assist you inscheduling these services. If you have already completed any of these items, please share that information with your care team to update in your medical record. Health Maintenance Due Topic Date Due ??? Zoster (Shingles) Vaccine (2 of 3) 03/14/2016 ??? Cholesterol Lab - yearly 01/31/2018 D SPEC documented in this encounter Progress Notes Raghavendra Deras MD - 03/19/2018 10:00 AM CST SUBJECTIVE: Terry Montero is a 72 year old male who presents for Preventive Visit. Are you in the first 12 months of your Medicare coverage? No Annual Wellness Visit In general, how would you rate your overall health? Good Frequency of exercise: 2-3 days/week Duration of exercise: 15-30 minutes Do you usually eat at least 4 servings of fruit and vegetables a day, include whole grains & fiber and avoid regularly eating high fat or junk foods? No Taking medications regularly: Yes Medication side effects: Other Ability to successfully perform activities of daily living: No assistance needed Home Safety: No safety concerns identified Hearing Impairment: No hearing concerns In the past 6 months, have you been bothered by leaking of urine? No In general, how would you rate your overall mental or emotional health? Excellent PHQ-2 Total Score: 0 Additional concerns today: Yes Patient with ongoing raspy voice for the past year. On exam, ENT found mild thickening of the vocal cords. He was scheduled for a videostroboscopy and referred to speech therapy. History of hypertension. Controlled with losartan and doxazosin. Denies chest pain, heart palpitations, peripheral edema, shortness of breath, lightheadedness, or vision changes. History of hyperlipidemia, on statin. Patient is concerned the statin is causing abdominal pain. Denies myalgias. History of GERD and peptic ulcer disease. Managed with daily omeprazole. Has breakthrough symptoms while off of the medication. Patient is concerned about potential side effects including low bone density. Patient reports right knee pain. He thinks the pain is related to arthritis. Patient takes ibuprofenas needed. History of BPH with LUTS. Managed with doxazosin. He continues to have urinary frequency and nocturia X2-3. Do you feel safe in your environment? Yes Do you have a Health Care Directive? No: Advance care planning was reviewed with patient; patient declined at this time. Fall risk Cognitive Screening 1) Repeat 3 items (Leader, Season, Table) 2) Clock draw: NORMAL 3) 3 item recall: Recalls 3 objects Results: 3 items recalled: COGNITIVE IMPAIRMENT LESS LIKELY Mini-CogTM Copyright Murali Lenz. Licensed by the author for use in [facility]; reprintedwith permission (sherif@[facility]). All rights reserved. Do you have sleep apnea, excessive snoring or daytime drowsiness?: no Reviewed and updated as needed this visit by clinical staff Tobacco Allergies Meds Med Hx Surg Hx Fam Hx Soc Hx Reviewed and updated as needed this visit by Provider Social History Tobacco Use ??? Smoking status: Former Smoker Packs/day: 0.50 Years: 20.00 Pack years: 10.00 Types: Cigarettes Last attempt to quit: 02/06/1984 Years since quittin.1 ??? Smokeless tobacco: Never Used Substance Use Topics ??? Alcohol use: Yes Alcohol/week: 1.0 oz Comment: occasional Alcohol Use 03/18/2018 If you drink alcohol do you typically have greater than 3 drinks per day OR greater than 7 drinks per week? No No flowsheet data found. Current providers sharing in care for this patient include: Patient Care Team: Raghavendra Deras MD as PCP - General (Family Practice) Raghavendra Deras MD as PCP - Assigned PCP The following health maintenance items are reviewed in Epic and correct as of today: Health Maintenance Topic Date Due ??? ZOSTER IMMUNIZATION (2 of 3) 03/14/2016 ??? LIPID MONITORING Q1 YEAR 01/31/2018 ??? COLONOSCOPY Q5 YR 06/05/2018 ??? DTAP/TDAP/TD IMMUNIZATION (3 - Td) 10/19/2018 ??? FALL RISK ASSESSMENT 01/09/2019 ??? PHQ-2 Q1 YR 03/19/2019 ??? ADVANCE DIRECTIVE PLANNING Q5 YRS 01/11/2021 ??? AORTIC ANEURYSM SCREENING (SYSTEM ASSIGNED) Completed ??? HEPATITIS C SCREENING Completed ??? IPV IMMUNIZATION Aged Out ??? MENINGITIS IMMUNIZATION Aged Out Patient Active Problem List Diagnosis ??? Actinic keratosis ??? Allergic rhinitis ??? Esophageal reflux ??? SCC (squamous cell carcinoma), face ??? MORENITA (obstructive sleep apnea) ??? History of peptic ulcer disease ??? [...] History Negative Father ??? C.A.D. Maternal Uncle [place] ??? Cancer - colorectal Maternal Uncle ??? Prostate Cancer Other Cousin Review of Systems HENT: Positive for congestion. Gastrointestinal: Positive for abdominal pain. CONSTITUTIONAL: NEGATIVE for fever, chills, change in weight INTEGUMENTARY/SKIN: NEGATIVE for worrisome rashes, moles or lesions EYES: NEGATIVE for vision changes or irritation ENT/MOUTH: NEGATIVE for ear, mouth and throat problems RESP: NEGATIVE for significant cough or SOB CV: NEGATIVE for chest pain, palpitations or peripheral edema GI: POSITIVE for Hx of GERD and abdominal pain as noted above NEGATIVE for nausea or change in bowelhabits : POSITIVE for frequency and nocturia NEGATIVE for dysuria or hematuria MUSCULOSKELETAL: POSITIVE for knee pain as noted above NEURO: NEGATIVE for weakness, dizziness or paresthesias PSYCHIATRIC: NEGATIVE for changes in mood or affect This document serves as a record of the services and decisions personally performed and made by Raghavendra Deras MD. It was created on his behalf by Radha Mobley, a trained medical superintendent. The creation of this document is based on the provider's statements to the medical superintendent. Radha Mobley 10:08 AM March 19, 2018 OBJECTIVE: BP 132/82 (BP Location: Right arm, Patient Position: Chair, Cuff Size: Adult Regular) Pulse 95 Temp 98.1 ??F (36.7 ??C) (Oral) Ht 1.753 m (5' 9) Wt 97.5 kg (215 lb) SpO2 95% BMI 31.75 kg/m?? Estimated body mass index is 31.75 kg/m?? as calculated from the following: Height as of this encounter: 1.753 m (5' 9). Weight as of this encounter: 97.5 kg (215 lb). Physical Exam GENERAL: healthy, alert and no distress EYES: Eyes grossly normal to inspection, PERRL and conjunctivae and sclerae normal HENT: ear canals and TM's normal, nose and mouth without ulcers or lesions NECK: no adenopathy, no asymmetry, masses, or scars and thyroid normal to palpation RESP: lungs clear to auscultation - no rales, rhonchi or wheezes CV: regular rate and rhythm, normal S1 S2, no S3 or S4, no murmur, click or rub, no peripheral edemaand peripheral pulses strong ABDOMEN: soft, nontender, no hepatosplenomegaly, no masses and bowel sounds normal (male): normal male genitalia without lesions or urethral discharge, no hernia MS: no gross musculoskeletal defects noted, no edema SKIN: no suspicious lesions or rashes NEURO: Normal strength and tone, mentation intact and speech normal PSYCH: mentation appears normal, affect normal/bright Diagnostic Test Results: No results found for this or any previous visit (from the past 24 hour(s)). ASSESSMENT / PLAN: 1. Routine general medical examination at a health care facility 2. History of peptic ulcer disease - omeprazole (PRILOSEC) [address] capsule; Take 1 capsule (20 mg) by mouth daily Dispense: 90 capsule; Refill: 3 3. Gastroesophageal reflux disease, esophagitis presence not specified - omeprazole (PRILOSEC) [address] capsule; Take 1 capsule (20 mg) by mouth daily Dispense: 90 capsule; Refill: 3 - Vitamin B12 - Magnesium 4. Essential hypertension - Basic metabolic panel - losartan (COZAAR) 25 MG tablet; TAKE 1 TABLET EVERY DAY Dispense: 90 tablet; Refill: 3 5. Hyperlipidemia LDL goal <130 - Lipid panel reflex to direct LDL Fasting - ALT - simvastatin (ZOCOR) 20 MG tablet; Take 1 tablet (20 mg) by mouth At Bedtime Dispense: 90 tablet; Refill: 3 6. Hypertension goal BP (blood pressure) < 140/90 7. Benign prostatic hyperplasia with nocturia - doxazosin (CARDURA) 8 MG tablet; Take 1 tablet (8 mg) by mouth At Bedtime Dispense: 90 tablet; Refill: 3 8. Colon cancer screening - GASTROENTEROLOGY ADULT REF PROCEDURE ONLY Mayur Crump ; No Provider Preference End of Life Planning: Patient currently has an advanced directive: No. I have verified the patient's ablity to prepare an advanced directive/make health care decisions. Patient declined at this time. COUNSELING: Reviewed preventive health counseling, as reflected in patient instructions BP Readings from Last 1 Encounters: 03/19/18 132/82 Estimated body mass index is 31.75 kg/m?? as calculated from the following: Height as of this encounter: 1.753 m (5' 9). Weight as of this encounter: 97.5 kg (215 lb). Weight management plan: Discussed healthy diet and exercise guidelines reports that he quit smoking about 34 years ago. His smoking use included cigarettes. He has a 10.00 pack-year smoking history. he has never used smokeless tobacco. Appropriate preventive services were discussed with this patient, including applicable screening as appropriate for cardiovascular disease, diabetes, osteopenia/osteoporosis, and glaucoma. As appropriate for age/gender, discussed screening for colorectal cancer, prostate cancer, breast cancer, and cervical cancer. Checklist reviewing preventive services available has been given to the patient. Reviewed patients plan of care and provided an AVS. The Basic Care Plan (routine screening as documented in Health Maintenance) for Terry meets the Care Plan requirement. This Care Plan has been established and reviewed with the Patient. Counseling Resources: ATP IV Guidelines Pooled Cohorts Equation Calculator Breast Cancer Risk Calculator FRAX Risk Assessment ICSI Preventive Guidelines Dietary Guidelines for Americans, 2009 USDA's MyPlate ASA Prophylaxis Lung CA Screening The information in this document, created by the medical superintendent for me, accurately reflects the services I personally performed and the decisions made by me. I have reviewed and approved this document for accuracy prior to leaving the patient care area. March 19, 2018 10:41 AM Raghavendra Deras MD [facility] D SPEC documented in this encounter Plan of Treatment Scheduled Referrals Name Type Priority Associated Diagnoses Order S [facility] GASTROENTEROLOGY ADULT REF Referral Routine Colon cancer O rdered: 03/19/2018 PROCEDURE ONLY [place] screening Director Financial Services ; No Provider Preference documented as of this encounter Procedures Procedure Name Priority Date/Time Associated Diagnosis Comme nts MAGNESIUM Routine 03/19/2018 10:43 Gastroesophageal reflux Results for this AM FIELD SPEC disease, esophagitis procedu re are in presence not specified the r esults section. LIPID REFLEX TO Routine 03/19/2018 10:43 Hyperlipidemia LDL go al Results for this DIRECT LDL PANEL AM FIELD SPEC <130 procedure a re in the results section. ALT Routine 03/19/2018 10:43 Hyperlipidemia LDL goal Results for this AM FIELD SPEC <130 procedure are i n the results section. VITAMIN B12 Routine 03/19/2018 10:43 Gastroesophageal reflux Results for this AM FIELD SPEC disease, esophagitis procedu re are in presence not specified the r esults section. BASIC METABOLIC Routine 03/19/2018 10:43 Essential hypertensio n Results for this PANEL AM FIELD SPEC procedure are i n the results section. documented in this encounter Results Magnesium (03/19/2018 10:43 AM FIELD SPEC) athologist Signature Magnesium 2.1 1.6 - 2.3 03/20/2018 [facility] mg/dL 9:57 AM FIELD SPEC [facility] Specimen Anatomical Collection Method Collection Time Receive d Time (Source) Location / / Volume Laterality Blood specimen 03/19/2018 10:43 9 (specimen) AM FIELD SPEC 10:44 AM FIELD SPEC Raghavendra Deras MD LAB - BLOOD ORDERABLES Performing Organization Address City/[facility]/ZIP Code Phon e Number [facility] [address], [place] [address] Vitamin B12 (03/19/2018 10:43 AM FIELD SPEC) athologist Signature Vitamin B12 592 193 - 986 03/19/2018 [facility] pg/mL 6:24 PM [facility] Specimen Anatomical Collection Method Collection Time Receive d Time (Source) Location / / Volume Laterality Blood specimen 03/19/2018 10:43 9 (specimen) AM FIELD SPEC 10:44 AM FIELD SPEC Raghavendra Deras MD LAB - BLOOD ORDERABLES Performing Organization Address City/State/ZIP Code Phon e Number [facility] [address] [place] [address] [facility] ALT (03/19/2018 10:43 AM FIELD SPEC) athologist Signature ALT 41 0 - 70 U/L 03/20/2018 [facility] 9:[address] [facility] Specimen Anatomical Collection Method Collection Time Receive d Time (Source) Location / / Volume Laterality Blood specimen 03/19/2018 10:43 9 (specimen) AM FIELD SPEC 10:44 AM FIELD SPEC Raghavendra Deras MD LAB - BLOOD ORDERABLES Performing Organization Address City/State/ZIP Code Phon e Number [facility] [address] [place] [address] Basic metabolic panel (03/19/2018 10:43 AM FIELD SPEC) athologist Signature Sodium 140 133 - 144 03/20/2018 [facility] mmol/L 9:46 AM [facility] Potassium 4.0 3.4 - 5.3 03/20/2018 [facility] mmol/L 9:46 AM [facility] Chloride 109 94 - 109 03/20/2018 [facility] mmol/L 9:46 AM [facility] Carbon Dioxide 26 20 - 32 03/20/2018 [facility] mmol/L 9:57 AM [facility] Anion Gap 5 3 - 14 03/20/2018 [facility] mmol/L 9:57 AM [facility] Glucose 97 70 - 99 03/20/2018 [facility] mg/dL 9:57 AM [facility] Urea Nitrogen 12 7 - 30 03/20/2018 [facility] mg/dL 9:57 AM [facility] Creatinine 1.00 0.66 - 03/20/2018 [facility] 1.25 mg/dL 9:57 AM [facility] GFR Estimate 74 >60 03/20/2018 [place] mL/min/{1. 9:57 AM [facility] 73_m2} [facility] Comment: Non GFR Calc Starting 01/22/2018, serum creatinine ba sed estimated GFR (eGFR) will be calculated using the Chronic Kidney Dise [facility] Epidemiology Collaboration (CKD-EPI) equation. GFR Estimate If 86 >60 mL/min/{1.73_m2} 03/20/2018 9: 57 AM [facility] Comment: GFR Calc Starting 01/22/2018, serum creatinine ba sed estimated GFR (eGFR) will be calculated using the Chronic Kidney Dise [facility] Epidemiology Collaboration (CKD-EPI) equation. Calcium 8.9 8.5 - 10.1 mg/dL 03/20/2018 9:57 AM [facility] Specimen Anatomical Collection Method Collection Time Receive d Time (Source) Location / / Volume Laterality Blood specimen 03/19/2018 10:43 9 (specimen) AM FIELD SPEC 10:44 AM FIELD SPEC Raghavendra Ray Braeden MD LAB - BLOOD ORDERABLES Performing Organization Address City/[facility]/ZIP Code Phon e Number [facility] [address] [place] [phone] Lipid panel reflex to direct LDL Fasting (03/19/2018 10:43 AM FIELD SPEC) [facility] gist Method Time Signature Cholesterol 150 <200 03/20/2018 [facility] mg/dL 9:57 AM FIELD SPEC [facility] Triglycerides 144 <150 03/20/2018 [facility] mg/dL 9:57 AM FIELD SPEC [facility] HDL Cholesterol 47 >39 mg/dL 03/20/2018 [facility] 9:57 AM [facility] LDL Cholesterol 74 <100 03/20/2018 [place] Calculated mg/dL 9:57 AM [facility] Comment: Desirable: <100 mg/dl Non HDL Cholesterol 103 <130 mg/dL 03/20/2018 9:[address] [facility] Specimen Anatomical Collection Method Collection Time Receive d Time (Source) Location / / Volume Laterality Blood specimen 03/19/2018 10:43 9 (specimen) AM FIELD SPEC 10:44 AM FIELD SPEC Raghavendra Deras MD LAB - BLOOD ORDERABLES Performing Organization Address City/[facility]/ZIP Code Phon e Number [facility] [address] [place] [phone] documented in this encounter Visit Diagnoses Diagnosis Routine general medical examination at a health care facility - Primary History of peptic ulcer disease Personal history of peptic ulcer disease Gastroesophageal reflux disease, esophag itis presence not specified Essential hypertension Unspecified essential hypertension Hyperlipidemia LDL goal <130 Other and unspecified hyperlipidemia Hypertension goal BP (blood pressure) < 140/90 Unspecified essential hypertension Benign prostatic hyperplasia with noctur ia Colon cancer screening Special screening for malignant neoplasm s, colon documented in this encounter Care Teams Bill Board Poster Relationship Specialty Start Date End Date Raghavendra Deras MD PCP - General Family Practice 10/07/13 Raghavendra Deras MD PCP - Assigned PCP 01/23/16 04/09/18 Raghavendra Deras MD Assigned PCP 01/23/16 05/14/21 documented as of this encounter
--- OUTSIDE RECORDS SUMMARY | 2021-11-04 10:35 | XMS_ITS | Encounter Summary ---
:1945 Author Organization [place] Address [address] [facility] 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
--- OUTSIDE RECORDS SUMMARY | 2021-11-04 10:35 | XMS_ITS | Encounter Summary ---
:1945 Author Organization [place] Address [facility] 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 documented as of this encounter Last Filed Vital Signs Vital Sign Reading Time Taken Comments Blood Pressure 132/84 04/05/2018 3:43 PM SHOE TREER Pulse 80 04/05/2018 3:43 PM SHOE TREER Temperature - - Respiratory Rate - - Oxygen Saturation - - Inhaled Oxygen Concentration - - Weight - - Height - - Body Mass Index - - documented in this encounter Plan of Treatment Not on filedocumented as of this encounter Visit Diagnoses Diagnosis BP check - Primary Screening for hypertension documented in this encounter Care Teams Solids Control Technician Relationship Specialty Start Date End Date Raghavendra Deras MD PCP - General Family Practice 10/07/13 Raghavendra Deras MD PCP - Assigned PCP 01/23/16 04/09/18 Raghavendra Deras MD Assigned PCP 01/23/16 05/14/21 documented as of this encounter
--- OUTSIDE RECORDS SUMMARY | 2021-11-04 10:35 | XMS_ITS | Encounter Summary ---
:1945 Author Organization [place] Address [facility] 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 For corrected amounts Janny Rodriguez, RN OLOGIC AIDE Telephone Encounter - Ariella Davidson - 02/08/2018 11:34 AM CST [email or web address] message was sent to patient on 02/07/18. Ariella Davidson Sas Clinical Programmer OLOGIC AIDE Telephone Encounter - Myriam Barrett RN - 02/07/2018 2:59 PM CST Pt due for a wellness visit and labs. Please advise on how to proceed with request for mail order and local pharmacy Pt was seen for an acute issue only Myriam Barrett RN, BSN OLOGIC AIDE Telephone Encounter - Mag Garcia - 02/07/2018 11:15 AM CST Requested Prescriptions Pending Prescriptions Disp Refills ??? doxazosin (CARDURA) 8 MG tablet 45 tablet 3 Sig: Take 0.5 tablets (4 mg) by mouth At Bedtime There is no refill protocol information for this order Last Written Prescription Date: 01/31/17-pt wants to change from 8mg to 4 mg-no longer needs to cut in half, pt will also need 1 week prescription sent to [facility] in [place] as mail order wont arrivebefore he runs out. Last Fill Quantity: 45, # refills: 3 Last office visit: 01/09/2018 with prescribing provider: Dr Deras Future Office Visit: Requested Prescriptions Pending Prescriptions Disp Refills ??? doxazosin (CARDURA) 8 MG tablet 45 tablet 3 Sig: Take 0.5 tablets (4 mg) by mouth At Bedtime Alpha Blockers Passed - 02/07/2018 11:19 AM Passed - Blood pressure under 140/90 in past 12 months BP Readings from Last 3 Encounters: 01/09/18 124/74 07/07/17 142/90 02/12/17 136/82 Passed - Recent (12 mo) or future (30 days) visit within the authorizing provider's specialty Patient had office visit in the last 12 months or has a visit in the next 30 days with authorizing provider or within the authorizing provider's specialty. See Patient Info tab in inbasket, or Choose Columns in Meds & Orders section of the refill encounter. Passed - Patient does not have Tadalafil, Vardenafil, or Sildenafil on their medication list Passed - Patient is 18 years of age or older OLOGIC AIDE Addendum Note - Janny Rodriguez RN - 02/07/2018 11:11 AM HISTOLOGIC AIDE Addended by: JANNY RODRIGUEZ on: 02/09/2018 10:57 AM Modules accepted: Orders OLOGIC AIDE documented in this encounter Plan of Treatment Not on filedocumented as of this encounter Visit Diagnoses Diagnosis Hypertension goal BP (blood pressure) < 140/90 Unspecified essential hypertension documented in this encounter Care Teams Manager Image Relationship Specialty Start Date End Date Raghavendra Deras MD PCP - General Family Practice 10/07/13 Raghavendra Deras MD PCP - Assigned PCP 01/23/16 04/09/18 Raghavendra Deras MD Assigned PCP 01/23/16 05/14/21 documented as of this encounter
--- OUTSIDE RECORDS SUMMARY | 2021-11-04 10:35 | XMS_ITS | Encounter Summary ---
:1945 Author Organization [place] Address [facility]0 [facility] 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
--- OUTSIDE RECORDS SUMMARY | 2021-11-04 10:35 | XMS_ITS | Encounter Summary ---
:1945 Author Organization [place] Address [facility] [place] [address] Care Team Providers Name Role Phone Raghavendra Deras MD Primary Care Provider Unavailable Raghavendra Deras MD Unavailable Unavailable Reason for Visit Reason Comments Hypertension Encounter Details Date Type Department Care Team Description 04/15/[address] 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 documented as of this encounter Last Filed Vital Signs Vital Sign Reading Time Taken Comments Blood Pressure 126/70 04/15/2018 10:03 AM CDT Pulse 60 04/15/2018 10:03 AM CDT Temperature 37 ??C (98.6 ??F) 04/15/2018 10:03 AM CDT Respiratory Rate 16 04/15/2018 10:03 AM CDT Oxygen Saturation 96% 04/15/2018 10:03 AM CDT Inhaled Oxygen Concentration - - Weight 95.7 kg (211 lb) 04/15/2018 10:03 AM CDT Height 175.3 cm (5' 9) 04/15/2018 10:03 AM CDT Body Mass Index 31.16 04/15/2018 10:03 AM CDT documented in this encounter Progress Notes Raghavendra Deras MD - 04/15/2018 10:00 AM CDT SUBJECTIVE: Terry Montero is a 72 year old male who presents to clinic today for the following health issues: Patient here for follow-up of hypertension. Well controlled with losartan, hydrochlorothiazide, and doxazosin. Denies chest pain, heart palpitations, peripheral edema, shortness of breath, lightheadedness, or vision changes. BP Readings from Last 3 Encounters: 04/15/18 126/70 04/05/18 132/84 04/02/18 168/88 Problem list and histories reviewed & adjusted, [...] Last attempt to quit: 02/06/1984 Years since quittin.2 ??? Smokeless tobacco: Never Used Substance Use [...] History Negative Father ??? C.A.D. Maternal Uncle MD ??? Cancer - colorectal Maternal Uncle ??? Prostate Cancer Other Cousin Reviewed and updated as needed this visit by clinical staff Tobacco Allergies Meds Med Hx Surg Hx Fam Hx Soc Hx Reviewed and updated as needed this visit by Provider ROS: RESP: NEGATIVE for significant cough or SOB CV: NEGATIVE for chest pain, palpitations or peripheral edema This document serves as a record of the services and decisions personally performed and made by Raghavendra Deras MD. It was created on his behalf by Rdaha Mobley, a trained paramedical aide. The creation of this document is based on the provider's statements to the paramedical aide. Radha Mobley 10:17 AM April 15, 2018 OBJECTIVE: BP 126/70 (BP Location: Right arm, Patient Position: Chair, Cuff Size: Adult Regular) Pulse 60 Temp 98.6 ??F (37 ??C) (Oral) Resp 16 Ht 1.753 m (5' 9) Wt 95.7 kg (211 lb) SpO2 96% BMI 31.16 kg/m?? Body mass index is 31.16 kg/m??. GENERAL: healthy, alert and no distress ASSESSMENT/PLAN: 1. Essential hypertension Most recent blood pressures have been very good. Continue current medications below. If he has lowerblood pressures at home then we could consider decreasing hydrochlorothiazide to 12.5 mg daily. Follow-up in 1 year for medication check. - doxazosin (CARDURA) 4 MG tablet; Take 1 tablet (4 mg) by mouth At Bedtime Dispense: 90 tablet; Refill: 3 - hydrochlorothiazide (HYDRODIURIL) 25 MG tablet; Take 1 tablet (25 mg) by mouth daily Dispense: 90 tablet; Refill: 1 - losartan (COZAAR) 50 MG tablet; Take 1 tablet (50 mg) by mouth daily Dispense: 90 tablet; Refill: 1 The information in this document, created by the paramedical aide for me, accurately reflects the services I personally performed and the decisions made by me. I have reviewed and approved this document for accuracy prior to leaving the patient care area. April 15, 2018 10:30 AM Raghavendra Deras MD [facility] documented in this encounter Plan of Treatment Not on filedocumented as of this encounter Visit Diagnoses Diagnosis Essential hypertension Unspecified essential hypertension documented in this encounter Care Teams Alley Tender Relationship Specialty Start Date End Date Raghavendra Deras MD PCP - General Family Practice 10/07/13 Raghavendra Deras MD Assigned PCP 01/23/16 05/14/21 documented as of this encounter
--- OUTSIDE RECORDS SUMMARY | 2021-11-04 10:35 | XMS_ITS | Encounter Summary ---
:1945 Author Organization [place] Address [address] [facility] [place] [address] Care Team Providers Name Role Phone Raghavendra Deras MD Primary Care Provider Unavailable Raghavendra Deras MD Unavailable Unavailable Raghavendra Deras MD Unavailable Unavailable Encounter Details Date Type Department Care Team Description 01/24/2018 Therapy Visit [facility] N[facility] Faust Bila teral low back Rehabilitation Services PT pain without Rea [address] sciatica (Primary 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 encounter Plan of Treatment Not on filedocumented as of this encounter Procedures Procedure Name Priority Date/Time Associated Diagnosis Comme nts [facility] NEUROMUSCULAR Routine 01/24/2018 1:58 PM Bilateral low jaciel k RE-EDUCATION BENDER HELPER pain without sciatica [facility] THERAPEUTIC EXERCISES Routine 01/24/2018 1:58 PM Bilateral low back BENDER HELPER pain without sciatica documented in this encounter Visit Diagnoses Diagnosis Bilateral low back pain without sciatica - Primary documented in this encounter Care Teams Personal Care Worker Relationship Specialty Start Date End Date Raghavendra Deras MD PCP - General Family Practice 10/07/13 Raghavendra Deras MD PCP - Assigned PCP 01/23/16 04/09/18 Raghavendra Deras MD Assigned PCP 01/23/16 05/14/21 documented as of this encounter
--- OUTSIDE RECORDS SUMMARY | 2021-11-04 10:35 | XMS_ITS | Encounter Summary ---
:1945 Author Organization [place] Address [facility] 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 Patient denies any HTn symptoms. Pt rechecked his BP with his home monitor on left arm and got 179/110 initially and then 162/101. MA got 160/90 and informed patient that his machine mostly likely not reading accurately. Dr Cueto recommended doubling losartan for the next week and recheck BP. Pt informed and will take losartan 50mg and scheduled a BP check next week. Myriam Barrett RN, BSN STOP CHECKER documented in this encounter Plan of Treatment Not on filedocumented as of this encounter Visit Diagnoses Diagnosis BP check - Primary Screening for hypertension documented in this encounter Care Teams Internal Sales Engineer Relationship Specialty Start Date End Date Raghavendra Deras MD PCP - General Family Practice 10/07/13 Raghavendra Deras MD PCP - Assigned PCP 01/23/16 04/09/18 Raghavendra Deras MD Assigned PCP 01/23/16 05/14/21 documented as of this encounter
--- OUTSIDE RECORDS SUMMARY | 2021-11-04 10:35 | XMS_ITS | Encounter Summary ---
:1945 Author Organization [place] Address [facility] 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 Ariella Davidson Crime Scene Analyst TH ADMINISTRATOR Telephone Encounter - Myriam Barrett RN - 02/07/2018 7:32 AM CST Routing refill request to provider for review/approval because: Labs not current: CR (thi was last ordered by a different provider) Myriam Barrett RN, BSN TH ADMINISTRATOR Telephone Encounter - Wade Wiggins - 02/07/2018 7:09 AM CST Requested Prescriptions Pending Prescriptions Disp Refills ??? losartan (COZAAR) 25 MG tablet [Pharmacy Med Name: LOSARTAN POTASSIUM 25 MG Tablet] 90 tablet 3 Last Written Prescription Date: 01/31/2017 Last Fill Quantity: 90 TABLET, # refills: 3 Last office visit: 01/09/2018 with prescribing provider: 01/09/2018 Future Office Visit: Sig: TAKE 1 TABLET EVERY DAY Angiotensin-II Receptors Failed - 02/07/2018 6:39 AM Failed - Normal serum creatinine on file in past 12 months Recent Labs Lab Test 02/09/17 0917 05/26/16 1446 CR 1.30* < > -- CREAT -- -- 1.0 < > = values in this interval not displayed. Passed - Blood pressure under 140/90 in [...] 18 or older Passed - Normal serum potassium on file in past 12 months Recent Labs Lab Test 02/09/17 0917 POTASSIUM 3.5 Wade Wiggins XRT TH ADMINISTRATOR documented in this encounter Plan of Treatment Not on filedocumented as of this encounter Visit Diagnoses Diagnosis Hypertension goal BP (blood pressure) < 140/90 Unspecified essential hypertension documented in this encounter Care Teams Certified Professional Ergonomist Relationship Specialty Start Date End Date Raghavendra Deras MD PCP - General Family Practice 10/07/13 Raghavendra Deras MD PCP - Assigned PCP 01/23/16 04/09/18 Raghavendra Deras MD Assigned PCP 01/23/16 05/14/21 documented as of this encounter
--- OUTSIDE RECORDS SUMMARY | 2021-11-04 10:35 | XMS_ITS | Encounter Summary ---
:1945 Author Organization [place] Address [facility] 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
--- OUTSIDE RECORDS SUMMARY | 2021-11-04 10:35 | XMS_ITS | Encounter Summary ---
:1945 Author Organization [place] Address [address] [facility] [place] [address] Care Team Providers Name Role Phone Raghavendra Deras MD Primary Care Provider Unavailable Raghavendra Deras MD Unavailable Unavailable Raghavendra Deras MD Unavailable Unavailable Reason for Visit [facility] Physical Therapy - Closed Specialty Diagnoses / Procedures Referred By Contact Refer red To Contact Diagnoses Midline low back pain without sciatica, [place] [address] [place] [address] Referral ID Status Reason Start Date Expiration Date Visits Requ ested Visits Authorized [id number] Closed 01/09/2018 01/09/2019 1 1 Encounter Details Date Type Department Care Team Description 01/16/2018 Therapy Visit [facility] Raghavendra Deras MD Bilateral low back pain without sciatica (Primary Dx); Rehabilitation Services Naya Faust, PT [address] 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 Terry Montero is a 72 year old male with a lumbar (mid lumbar pain, L>R) condition. This is a new condition Patient has chief complaint of intermittent low lumbar pain which started approximately 12/17/2017. Patient reports pain: Mid lumbar spine. Radiates to: No radiation. Pain is described as sharp and isintermittent and reported as 5/10. Worse during: no pattern. Symptoms are exacerbated by sitting, bending and lying down (rolling in bed ) and relieved by activity/movement. Since onset symptoms are gradually improving. Special tests: X-ray (no changes in x-ray from 2 years ago). Previous treatment includes physical therapy (low back pain 2 years ago). There was significant improvement following previous treatment. General health as reported by patient is good. Pertinent medical history includes: High blood pressure. Medical allergies: no. Other surgeries include: Cancer surgery (skin). Current medications: High blood pressure medication. Current occupation is retired. Primary job tasks include: Driving and lifting. Barriers include: None as reported by the patient. Red flags: None as reported by the patient. Objective: Standing Alignment: Lumbar deviations alignment: slumped sitting posture. Lumbar/SI Evaluation ROM: AROM Lumbar: Flexion: To ankles Ext: 70% Side Bend: Left: 75% Right: 75% Rotation: Left: 60% pain Right: 80% Side [place]: Left: Right: Strength: lumbar=4/5; core strength=4+/5 Lumbar Myotomes: normal Lumbar Dermtomes: normal Neural Tension/Mobility: Lumbar: Normal Lumbar Palpation: Tenderness present at Left: Vertebral Tenderness not present at Left: Erector Spinae Tenderness present at Right: Vertebral Tenderness not present at Right: Erector Spinae Lumbar Provocation: Left positive with: PROM hip Right positive with: PROM hip General ROS Assessment/Plan: Patient is a 72 year old male with lumbar complaints. Patient has the following significant findings with corresponding treatment plan. Diagnosis 1: Low back pain Pain - education Decreased ROM/flexibility - manual therapy, therapeutic exercise and home program Decreased strength - therapeutic exercise, therapeutic activities and home program Impaired posture - neuro re-education and home program Therapy Evaluation Codes: 1) History comprised of: Personal factors that impact the plan of care: None. Comorbidity factors that impact the plan of care are: None. Medications impacting care: None. 2) Examination of Body Systems comprised of: Body structures and functions that impact the plan of care: Lumbar spine. Activity limitations that impact the plan of care are: Sitting and Sleeping. 3) Clinical presentation characteristics are: Stable/Uncomplicated. 4) Decision-Making Low complexity using standardized patient assessment instrument and/or measureable assessment of functional outcome. Cumulative Therapy Evaluation is: Low complexity. Previous and current functional limitations: (See Goal Flow Sheet for this information) Short term and detention goals: (See Goal Flow Sheet for this information) Communication ability: Patient appears to be able to clearly communicate and understand verbal and written communication and follow directions correctly. Treatment Explanation - The following has been discussed with the patient: RX ordered/plan of care Anticipated outcomes Possible risks and side effects This patient would benefit from PT intervention to resume normal activities. Rehab potential is excellent. Frequency: 1 X week, once daily Duration: for 4 weeks Discharge Plan: Achieve all LTG. Independent in home treatment program. Reach maximal therapeutic benefit. Please refer to the daily flowsheet for treatment today, total treatment time and time spent performing 1:1 timed codes. OR BIOSTATISTICIAN Pily Bell - 01/16/2018 10:50 AM CST [facility] Initial Evaluation Subjective: Pertinent medical history includes: High blood pressure and osteoarthritis. Current medications: High blood pressure medication. Current occupation is retired. Primary job tasks include: Lifting and prolonged sitting (computer work, carrying, pushing, pullling). Objective: System Physical Exam General ROS Assessment/Plan: OR BIOSTATISTICIAN documented in this encounter Plan of Treatment Not on filedocumented as of this encounter Procedures Procedure Name Priority Date/Time Associated Diagnosis [facility] NEUROMUSCULAR Routine 01/16/2018 12:31 PM Midline low back pain RE-EDUCATION SENIOR BIOSTATISTICIAN without sciatica, unspecified chronicity [facility] THERAPEUTIC EXERCISES Routine 01/16/2018 12:31 PM Midline low back pain SENIOR BIOSTATISTICIAN without sciatica, unspecified chronicity documented in this encounter Visit Diagnoses Diagnosis Midline low back pain without sciatica, unspecified chronicity documented in this encounter Care Teams Doctor Of Dental Medicine Relationship Specialty Start Date End Date Raghavendra Deras MD PCP - General Family Practice 10/07/13 Raghavendra Deras MD PCP - Assigned PCP 01/23/16 04/09/18 Raghavendra Deras MD Assigned PCP 01/23/16 05/14/21 documented as of this encounter
--- OUTSIDE RECORDS SUMMARY | 2021-11-04 10:35 | XMS_ITS | Encounter Summary ---
:1945 Author Organization [place] Address [facility] [facility] 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
--- OUTSIDE RECORDS SUMMARY | 2021-11-04 10:35 | XMS_ITS | Encounter Summary ---
:1945 Author Organization [place] Address [facility] 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
--- OUTSIDE RECORDS SUMMARY | 2021-11-04 10:35 | XMS_ITS | Encounter Summary ---
:1945 Author Organization [place] Address [facility] [place] [address] Care Team Providers Name Role Phone Raghavendra Deras MD Primary Care Provider Unavailable Raghavendra Deras MD Unavailable Unavailable Raghavendra Deras MD Unavailable Unavailable Reason for Referral Diagnostic Imaging XR - Closed Specialty Diagnoses / Procedures Referred By Contact Refer red To Contact Diagnoses Cough Raghavendra Deras MD Procedures XR Chest 2 Views [address] [place] [address] Referral ID Status Reason Start Date Expiration Date Visits Requ ested Visits Authorized [id number] Closed 03/27/2018 03/27/2019 1 1 EMENT MACHINE MECHANIC Reason for Visit Reason Comments Fever Encounter Details Date Type Department Care Team Description 03/27/2018 Office Visit [facility] Raghavendra Deras bro nchitis, unspecified organism (Primary Dx); Clinic Candy Alan MD Cough [id number] [place] [address] Social History Tobacco Use Types [...] at Date Recorded Male 01/15/2018 11:39 PM AMUSEMENT MACHINE MECHANIC documented as of this encounter Last Filed Vital Signs Vital Sign Reading Time Taken Comments Blood Pressure 144/90 03/27/2018 1:50 PM AMUSEMENT MACHINE MECHANIC Pulse 99 03/27/2018 1:50 PM AMUSEMENT MACHINE MECHANIC Temperature 37.4 ??C (99.4 ??F) 03/27/2018 1:50 PM AMUSEMENT MACHINE MECHANIC Respiratory Rate 19 03/27/2018 1:50 PM AMUSEMENT MACHINE MECHANIC Oxygen Saturation 96% 03/27/2018 1:50 PM AMUSEMENT MACHINE MECHANIC Inhaled Oxygen Concentration - - Weight 97.5 kg (215 lb) 03/27/2018 1:50 PM AMUSEMENT MACHINE MECHANIC Height 175.3 cm (5' 9) 03/27/2018 1:50 PM AMUSEMENT MACHINE MECHANIC Body Mass Index 31.75 03/27/2018 1:50 PM AMUSEMENT MACHINE MECHANIC documented in this encounter Patient Instructions Patient InstructionsQuade, Raghavendra Alan MD - 03/27/2018 1:40 PM CST Images from the original note were not included. Patient Education Acute Bronchitis Your healthcare provider has told you that you have acute bronchitis. Bronchitis is infection or inflammation of the bronchial tubes (airways in the lungs). Normally, air moves easily in and out of theairways. Bronchitis narrows the airways, making it harder for air to flow in and out of the lungs. This causes symptoms such as shortness of breath, coughing up yellow or green mucus, and wheezing. Bronchitis can be acute or chronic. Acute means the condition comes on quickly and goes away in a short time, usually within 3 to 10 days. Chronic means a condition lasts a long time and often comes back. What causes acute bronchitis? Acute bronchitis almost always starts as a viral respiratory infection, such as a cold or the flu. Certain factors make it more likely for a cold or flu to turn into bronchitis. These include being very young, being elderly, having a heart or lung problem, or having a weak immune system. Cigarette smoking also makes bronchitis more likely. When bronchitis develops, the airways become swollen. The airways may also become infected with bacteria. This is known as a secondary infection. Diagnosing acute bronchitis Your healthcare provider will examine you and ask about your symptoms and health history. You may also have a sputum culture to test the fluid in your lungs. Chest X-rays may be done to look for infection in the lungs. Treating acute bronchitis Bronchitis usually clears up as the cold or flu goes away. You can help feel better faster by doing the following: ?? Take medicine as directed. You may be told to take ibuprofen or other xilh-omp-nbbaacx medicines.These help relieve inflammation in your bronchial tubes. Your healthcare provider may prescribe an inhaler to help open up the bronchial tubes. Most of the time,??acute bronchitis??is caused by a viral infection. Antibiotics are usually not prescribed for viral infections. ?? Drink plenty of fluids, such as water, juice, or warm soup. Fluids loosen mucus so that you can cough it up. This helps you breathe more easily. Fluids also prevent dehydration. ?? Make sure you get plenty of rest. ?? Do not smoke. Do not allow anyone else to smoke in your home. Recovery and follow-up Follow up with your doctor as you are told. You will likely feel better in a week or two. But a dry cough can linger beyond that time. Let your doctor know if you still have symptoms (other than a dry cough) after 2 weeks, or if you???re prone to getting bronchial infections. Take steps to protect yourself from future infections. These steps include stopping smoking and avoiding tobacco smoke, washing your hands often, and getting a yearly flu shot. When to call your healthcare provider Call the healthcare provider if you have any of the following: ?? Fever of 100.4??F (38.0??C) or higher, or as advised ?? Symptoms that get worse, or new symptoms ?? Trouble breathing ?? Symptoms that don???t start to improve within a week, or within 3 days of taking antibiotics Date Last Reviewed: 01/06/2016 ?? [id number] [employer]. [address] [place] [address], [place] [address]. All rights reserved. This information is not intended as a substitute for professional medical care. Always follow your healthcare professional's instructions. EMENT MACHINE MECHANIC documented in this encounter Progress Notes Raghavendra Deras MD - 03/27/2018 1:40 PM CST SUBJECTIVE: Terry Montero is a 72 year old male who presents to clinic today for the following health issues: Patient presents to the clinic with his . Patient reports a productive cough for the past week. He also reports nasal drainage and a sore throat. Yesterday, his ribs were irritated from coughing. He is taking Nyquil at night. Denies fever, sinus pain, ear pain. History of hypertension. Unontrolled today with losartan and doxazosin. Denies chest pain, heart palpitations, peripheral edema, shortness of breath, lightheadedness, or vision changes. Problem list and histories reviewed & adjusted, [...] ??? COLONOSCOPY 06/05/2013 Procedure: COLONOSCOPY; Surgeon: Matthew Richarsdon MD; Location: [facility] ??? HC COLONOSCOPY [...] History Negative Father ??? C.A.D. Maternal Uncle [place] ??? Cancer - colorectal Maternal Uncle ??? Prostate Cancer Other Cousin Reviewed and updated as needed this visit by clinical staff Tobacco Allergies Meds Med Hx Surg Hx Fam Hx Soc Hx Reviewed and updated as needed this visit by Provider ROS: CONSTITUTIONAL: NEGATIVE for fever ENT/MOUTH: as noted above RESP: as noted above CV: NEGATIVE for chest pain, palpitations or peripheral edema MUSCULOSKELETAL: as noted above This document serves as a record of the services and decisions personally performed and made by Raghavendra Deras MD. It was created on his behalf by Radha Mobley, a trained medical coding specialist. The creation of this document is based on the provider's statements to the medical coding specialist. Radha Mobley 2:00 PM March 27, 2018 OBJECTIVE: BP 144/90 (BP Location: Right arm, Patient Position: Chair, Cuff Size: Adult Regular) Pulse 99 Temp 99.4 ??F (37.4 ??C) (Oral) Resp 19 Ht 1.753 m (5' 9) Wt 97.5 kg (215 lb) SpO2 96% BMI 31.75 kg/m?? Body mass index is 31.75 kg/m??. GENERAL: healthy, alert and no distress EYES: Eyes grossly normal to inspection, PERRL and conjunctivae and sclerae normal HENT: ear canals and TM's normal, nose and mouth without ulcers or lesions NECK: no adenopathy, no asymmetry, masses, or scars and thyroid normal to palpation RESP: Coarse breath sounds throughout with wheezing CV: regular rate and rhythm, normal S1 S2, no S3 or S4, no murmur, click or rub, no peripheral edemaand peripheral pulses strong X-ray chest ordered and interpreted in the office today. X-ray shows: clear. Radiology read pending. ASSESSMENT/PLAN: 1. Acute bronchitis, unspecified organism Discussed etiology and natural course of bronchitis and that most do not improve with antibiotics. Symptomatic management for bronchitis - albuterol inhaler for cough, acetaminophen or ibuprofen for pain or fever, use robitussin for cough. Return if worsening or develops fever. As his has a mild early pneumonia he will call back if he has fever or worsening symptoms. - albuterol (PROAIR HFA/PROVENTIL HFA/VENTOLIN HFA) 108 (90 Base) MCG/ACT inhaler; Inhale 2 puffs into the lungs every 6 hours as needed for shortness of breath / dyspnea or wheezing Dispense: 1 Inhaler; Refill: 0 2. Cough - XR Chest 2 Views The information in this document, created by the medical coding specialist for me, accurately reflects the services I personally performed and the decisions made by me. I have reviewed and approved this document for accuracy prior to leaving the patient care area. March 27, 2018 3:07 PM Raghavendra Deras MD [facility] EMENT MACHINE MECHANIC documented in this encounter Plan of Treatment Not on filedocumented as of this encounter Procedures Procedure Name Priority Date/Time Associated Diagnosis Comme nts XR CHEST 2 VIEWS Routine 03/27/2018 2:27 PM Cough Resul ts for this AMUSEMENT MACHINE MECHANIC procedure are i n the results section. documented in this encounter Results XR Chest 2 Views (03/27/2018 2:27 PM AMUSEMENT MACHINE MECHANIC) Anatomical Region Laterality Modality Chest Computed Radiography Specimen (Source) Anatomical Location Collection Method / Collectio n Time Received Time / Laterality Volume Impressions 03/27/2018 2:35 PM AMUSEMENT MACHINE MECHANIC IMPRESSION: Negative. VAHE GILLIAM MD Narrative 03/27/2018 2:35 PM AMUSEMENT MACHINE MECHANIC XR CHEST 2 VW 03/27/2018 2:34 PM HISTORY: Cough, bilateral wheezing; Coug h Procedure Note Vahe Gilliam MD - 03/27/2018Formatt ing of this note might be different from the original. XR CHEST 2 VW 03/27/2018 2:34 PM HISTORY: Cough, bilateral wheezing; Coug h IMPRESSION: Negative. VAHE GILLIAM MD Raghavendra Deras MD IMG DIAGNOSTIC IMAGING ORDER MICHELLE documented in this encounter Visit Diagnoses Diagnosis Acute bronchitis, unspecified organism - Primary Cough documented in this encounter Care Teams Industrial Truck Driver Relationship Specialty Start Date End Date Raghavendra Deras MD PCP - General Family Practice 10/07/13 Raghavendra Deras MD PCP - Assigned PCP 01/23/16 04/09/18 Raghavendra Deras MD Assigned PCP 01/23/16 05/14/21 documented as of this encounter
--- OUTSIDE RECORDS SUMMARY | 2021-11-04 10:35 | XMS_ITS | Encounter Summary ---
:1945 Author Organization [place] Address [facility] [place] [address] Care Team Providers Name Role Phone Raghavendra Deras MD Primary Care Provider Unavailable Raghavendra Deras MD Unavailable Unavailable Raghavendra Deras MD Unavailable Unavailable Encounter Details Date Type Department Care Team Description 03/28/2018 Travel Social History Tobacco Use Types Packs/Day [...] Date Recorded Male 01/15/2018 11:39 PM DIRECTOR SYSTEMS documented as of this encounter Plan of Treatment Not on filedocumented as of this encounter Visit Diagnoses Not on filedocumented in this encounter Care Teams Cabin Furnishings Installer Relationship Specialty Start Date End Date Raghavendra Deras MD PCP - General Family Practice 10/07/13 Raghavendra Deras MD PCP - Assigned PCP 01/23/16 04/09/18 Raghavendra Deras MD Assigned PCP 01/23/16 05/14/21 documented as of this encounter
--- OUTSIDE RECORDS SUMMARY | 2021-11-04 10:35 | XMS_ITS | Encounter Summary ---
:1945 Author Organization [place] Address [address] [place] [address] Care Team Providers Name Role Phone Raghavendra Deras MD Primary Care Provider Unavailable Raghavendra Deras MD Unavailable Unavailable Raghavendra Deras MD Unavailable Unavailable Reason for Visit Reason Onset Date Comments Nurse Advice Line 03/29/2018 BP Encounter Details Date Type Department Care Team Description 03/29/2018 Telephone [facility] Raghavendra Deras Nurs e Advice Line (BP) Clinic [facility] [address] [place] [address] Social History Tobacco Use Types [...] at Date Recorded Male 01/15/2018 11:39 PM CLAY PUDDLER documented as of this encounter Miscellaneous Notes Telephone Encounter - Myriam Barrett RN - 03/29/2018 11:41 AM CST Pt called back to talk about chest pain that he had just a little bit ago. Pt has been having elevated blood pressure readings and now chest pain. Advised that he be evaluated in the ED with onset of chest pain. Pt expressed understanding and acceptance of the plan. Pt had no further questions at this time. Advised can call back to clinic at any time with concerns. Myriam Barrett RN, BSN PUDDLER Telephone Encounter - Barbie Amaro - 03/29/2018 11:28 AM CST BP was high during his visit earlier in the week. Checked from home and his BP is still high and would like to talk to a nurse. Barbie Amaro [facility] - TC/FD 03/29/2018 11:29 AM PUDDLER documented in this encounter Plan of Treatment Not on filedocumented as of this encounter Visit Diagnoses Not on filedocumented in this encounter Care Teams Serology Teacher Relationship Specialty Start Date End Date Raghavendra Deras MD PCP - General Family Practice 10/07/13 Raghavendra Deras MD PCP - Assigned PCP 01/23/16 04/09/18 Raghavendra Deras MD Assigned PCP 01/23/16 05/14/21 documented as of this encounter
--- OUTSIDE RECORDS SUMMARY | 2021-11-04 10:35 | XMS_ITS | Encounter Summary ---
:1945 Author Organization [place] Address [facility] [place] [address] Care Team Providers Name Role Phone Raghavendra Deras MD Primary Care Provider Unavailable Raghavendra Deras MD Unavailable Unavailable Raghavendra Deras MD Unavailable Unavailable Encounter Details Date Type Department Care Team Description 04/05/2018 Travel Social History Tobacco Use Types Packs/Day [...] at Date Recorded Male 01/15/2018 11:39 PM BMET documented as of this encounter Plan of Treatment Not on filedocumented as of this encounter Visit Diagnoses Not on filedocumented in this encounter Care Teams Woodenware Assembler Relationship Specialty Start Date End Date Raghavendra Deras MD PCP - General Family Practice 10/07/13 Raghavendra Deras MD PCP - Assigned PCP 01/23/16 04/09/18 Raghavendra Deras MD Assigned PCP 01/23/16 05/14/21 documented as of this encounter
--- OUTSIDE RECORDS SUMMARY | 2021-11-04 10:36 | XMS_ITS | Encounter Summary ---
:1945 Author Organization [place] Address 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 States he will call back to schedule when he has his calendar. Myriam Barrett RN, BSN OIDERY WORKER Telephone Encounter - Wade Wiggins - 01/22/2017 1:17 PM CST KALA 11/01/2016 OIDERY WORKER Telephone Encounter - Janny Rodriguez RN - 01/22/2017 1:14 PM CST LM needs yearly PX Janny Rodriguez RN OIDERY WORKER documented in this encounter Plan of Treatment Not on filedocumented as of this encounter Visit Diagnoses Diagnosis Hypertension goal BP (blood pressure) < 140/90 Unspecified essential hypertension documented in this encounter Care Teams Optical Effects Camera Operator Relationship Specialty Start Date End Date Raghavendra Deras MD PCP - General Family Practice 10/07/13 Raghavendra Deras MD PCP - Assigned PCP 01/23/16 04/09/18 Raghavendra Deras MD Assigned PCP 01/23/16 05/14/21 documented as of this encounter
--- OUTSIDE RECORDS SUMMARY | 2021-11-04 10:36 | XMS_ITS | Encounter Summary ---
:1945 Author Organization [place] Address [address] [place] [address] Care Team Providers Name Role Phone Raghavendra Deras MD Primary Care Provider Unavailable Reason for Visit SOTO Physical Therapy (Routine) - Closed Specialty Diagnoses / Procedures Referred By Contact Refer red To Contact Artis Thrasher DO [facility] [address] [place] [address] [place] [address] [facility] [address] [place], [place] [address] Phone: Fax: Referral ID Status Reason Start Date Expiration Date Visits Requ ested Visits Authorized SOTO/HP/LBP Closed 10/06/2015 02/05/2016 20 18 Encounter Details Date Type Department Care Team Description 10/08/2015 Therapy Visit [facility] Vernon Steel, Acute left-sided low Rehabilitation Services PT back pain without [facility] sci[facility]a (Primary [id number] [facility]IC[facility] Dx) [place] [address] [address] [place], [place] [phone] Social History Tobacco Use Types Packs/Day Years [...] at Date Recorded Male 01/15/2018 11:39 PM RIPSAW OPERATOR documented as of this encounter Progress Notes Vernon Steel, PT - 01/06/2016 2:46 PM CST Subjective: HPI Oswestry Score: 4 % Objective: System Physical Exam General ROS Assessment/Plan: DISCHARGE REPORT Progress reporting period is from 10/08/15 to 01/06/16 (1 visit). SUBJECTIVE Subjective changes noted by patient: Carlos did not attend further PT following his initial visit on 10/08/15. His current status is unknown. Current pain level is Current Pain level: 2/10. Previous pain level was NA . Changes in function: Unknown. Adverse reaction to treatment or activity: None OBJECTIVE Changes noted in objective findings: Patient has failed to return to therapy so current objective findings are unknown. ASSESSMENT/PLAN Updated problem list and treatment plan: Diagnosis 1: LBP STG/LTGs have been met or progress has been made towards goals: Unknown. Assessment of Progress: The patient has not returned to therapy. Current status is unknown. Self Management Plans: Patient has been instructed in a home treatment program. Terry continues to require the following intervention to meet STG and LTG's: PT intervention is no longer required to meet STG/LTG. Recommendations: This patient is ready to be discharged from therapy and continue their home treatment program. Please refer to the daily flowsheet for treatment today, total treatment time and time spent performing 1:1 timed codes. AW OPERATOR Isidra Gerber PTA - 10/12/2015 8:55 AM CDT Subjective: Pertinent medical history includes: High blood pressure, cancer and implanted device (enlarged prostate, acid reflux). Other surgeries include: Cancer surgery (skin). Current medications: Anti-inflammatory and high blood pressure medication. Current occupation is retired. Employment tasks: normal daily. Objective: System Physical Exam General ROS Assessment/Plan: Vernon Steel, PT - 10/08/2015 4:00 PM CDT Subjective: Pt reports an insidious onset of left LBP 2-3 weeks ago. The pain was severe and constant for a fewdays, but is now 95% better. He currently reports intermittent LBP with transitional movmements, bending, prolonged sitting, standing, and twisting. 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 Patient reports pain: Lumbar spine left. Radiates to: No radiation. Pain is described as sharp (tightness) and is intermittent Associated symptoms: Loss of motion/stiffness. Pain is the same all the time. Symptoms are exacerbated by bending, twisting, lifting and standing (transitional movements) and relieved by heat. Since onset symptoms are gradually improving. Special tests: X-ray. Previous treatment includes physical therapy (2013). There was significant improvement following previous treatment. Barriers include: None as reported by the patient. Red flags: None as reported by the patient. Objective: Standing Alignment: Lumbar: Lordosis decr Lumbar/SI Evaluation Lumbar Myotomes: normal Lumbar Palpation: Palpation (lumbar): Hypertonic left> right QL, PVM's. Natasha Lumbar Evaluation Posture: Sitting: fair Standing: fair Lordosis: Reduced Lateral Shift: no Correction of Posture: no effect Movement Loss: Flexion (Flex): pain and min Extension (EXT): pain and min Side [place] R (SG R): nil and pain Side [place] L (SG L): nil and pain Test Movements: MILI: During: increases After: no worse Repeat MILI: During: increases After: worse EIL: During: no effect After: no worse Repeat EIL: During: decreases After: better Mechanical Response: IncROM Conclusion: derangement Principle of Treatment: Extension: with back stabilization ROS Assessment/Plan: Patient is a 70 year old male with lumbar complaints. Patient has the following significant findings with corresponding treatment plan. Diagnosis 1: Lumbar derangement Pain - hot/cold therapy, self management, education and home program Decreased ROM/flexibility - therapeutic exercise and home program Decreased strength - therapeutic exercise, therapeutic activities and home program Previous and current functional limitations: (See Goal Flow Sheet for this information) Short term and [facility] goals: (See Goal Flow Sheet for this [...] to resume normal activities. Rehab potential is good. Frequency: 1 X week, once daily Duration: 1-4 visits Discharge Plan: Achieve all LTG. Independent in home treatment program. Reach maximal therapeutic benefit. Please refer to the daily flowsheet for treatment today, total treatment time and time spent performing 1:1 timed codes. documented in this encounter Miscellaneous Notes Addendum Note - Vernon Steel PT - 01/06/2016 2:50 PM RIPSAW OPERATOR Addended by: VERNON STEEL on: 01/06/2016 02:50 PM Modules accepted: Orders AW OPERATOR documented in this encounter Plan of Treatment Not on filedocumented as of this encounter Procedures Procedure Name Priority Date/Time Associated Diagnosis Comme [facility] THERAPEUTIC Routine 10/08/2015 4:11 PM Acute left-sided lo w EXERCISES CDT back pain without sciatica documented in this encounter Visit Diagnoses Diagnosis Acute left-sided low back pain without s ciatica - Primary documented in this encounter Care Teams Line Tender Flakeboard Relationship Specialty Start Date End Date Raghavendra Deras MD PCP - General Family Practice 10/07/13 documented as of this encounter
--- OUTSIDE RECORDS SUMMARY | 2021-11-04 10:36 | XMS_ITS | Encounter Summary ---
:1945 Author Organization [place] Address [facility] 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 documented as of this encounter Last Filed Vital Signs Vital Sign Reading Time Taken Comments Blood Pressure 115/80 04/05/2015 2:40 PM FURNITURE SHAMPOOER Pulse 74 04/05/2015 2:40 PM FURNITURE SHAMPOOER Temperature 36.4 ??C (97.5 ??F) 04/05/2015 2:40 PM FURNITURE SHAMPOOER Respiratory Rate 16 04/05/2015 2:40 PM FURNITURE SHAMPOOER Oxygen Saturation 96% 04/05/2015 2:40 PM FURNITURE SHAMPOOER Inhaled Oxygen Concentration - - Weight 93.8 kg (206 lb 14.4 oz) 04/05/2015 2:40 PM FURNITURE SHAMPOOER Height 175.3 cm (5' 9) 04/05/2015 2:40 PM FURNITURE SHAMPOOER Body Mass Index 30.55 04/05/2015 2:40 PM FURNITURE SHAMPOOER documented in this encounter Progress Notes Tyler Calderon MD - 04/05/2015 2:34 PM CST SUBJECTIVE: Terry Montero is a 69 year old male who presents to clinic today for the following health issues: Patient states that he thinks he may have banged his right hand on something on Sunday morning. Patient sates that he is unable to use the hand at all PROBLEMS TO ADD ON... Problem list and histories reviewed & adjusted, as indicated. Additional history: as documented Patient Active Problem List Diagnosis ??? Actinic keratosis ??? Allergic rhinitis ??? Hypertrophy of prostate without urinary obstruction ??? ESOPHAGEAL REFLUX ??? SCC (squamous cell carcinoma), face ??? MORENITA (Obstructive Sleep Apnea) ??? History of peptic ulcer disease ? ? Hypertension goal BP (blood pressure) < 140/90 ??? Advanced directives, counseling/discussion ??? Gastroenteritis ??? Adenomatous polyp of colon ??? Hyperlipidemia with target LDL less than 130 ??? Benign prostatic hypertrophy with lower urinary tract symptoms (LUTS) Past Surgical History Procedure Laterality Date ??? Hc colonoscopy thru stoma, diagnostic 2002 ??? Colonoscopy 06/05/2013 Procedure: COLONOSCOPY; Surgeon: Matthew Richardson MD; Location: GI History Substance Use Topics ??? Smoking status: Former Smoker -- 0.50 packs/day for 20 years Types: Cigarettes Quit date: 02/06/1984 ??? Smokeless tobacco: Never Used ??? Alcohol Use: 1.0 oz/week Comment: occasional Family History Problem Relation Age of Onset ??? Diabetes Maternal Grandmother ??? C.A.D. Maternal Uncle MD ??? Cancer - colorectal Maternal Uncle ??? Prostate Cancer Other Cousin ??? Heart Disease Brother stent - 66 ??? Prostate Cancer Brother no cancer, but a produre due reduce the prostate ??? Cancer Sister bone caner/lung cancer ??? Prostate Cancer Paternal Grandfather not sure ??? Cerebrovascular Accident Maternal Grandmother older, 70's or 80's ROS: Constitutional, HEENT, cardiovascular, pulmonary, gi and gu systems are negative, except as otherwise noted. OBJECTIVE: BP 115/80 mmHg Pulse 74 Temp(Src) 97.5 ??F (36.4 ??C) (Oral) Resp 16 Ht 5' 9 (1.753 m) Wt206 lb 14.4 oz (93.849 kg) BMI 30.54 kg/m2 SpO2 96% Body mass index is 30.54 kg/(m^2). GENERAL: healthy, alert and no distress NECK: no adenopathy, no asymmetry, masses, or scars and thyroid normal to palpation RESP: lungs clear to auscultation - no rales, rhonchi or wheezes CV: regular rate and rhythm, normal S1 S2, no S3 or S4, no murmur, click or rub, no peripheral edemaand peripheral pulses strong ABDOMEN: soft, nontender, no hepatosplenomegaly, no masses and bowel sounds normal MS: The affected hand on the right shows hypo-thenar swelling and tenderness. There are no skin changes other than the swelling there is no redness or erythema pain is located to one small spot cord that toward the center of the palm. He cannot fully extend his fingers. Diagnostic Test Results: none ASSESSMENT/PLAN: ICD-10-CM 1. Pain of right upper extremity M79.601 Lipid panel reflex to direct LDL HYDROcodone-acetaminophen (NORCO) 5-325 MG per tablet predniSONE (DELTASONE) 20 MG tablet 2. Mixed hyperlipidemia E78.2 Lipid panel reflex to direct LDL HYDROcodone-acetaminophen (NORCO) 5-325 MG per tablet He appears to have swelling of the hypo-thenar muscle could be a tendinitis under the area or inflammatory process of the muscle. It does not appear to be systemic. I do not feel that this is an infection. He does relates no history of overuse and no injury. Has had bursitis in the past See the above medications which do include prednisone. I suspect that he should improve tomorrow with the high-dose medication that he was given and his pain should be relieved significantly. If he arises tomorrow and there is significant swelling that has increased he should be seen [facility] Tyler Calderon MD [facility] ITURE SHAMPOOER documented in this encounter Nursing Notes Gladys Montesinos MA - 04/05/2015 2:40 PM CST Chief Complaint Patient presents with ??? Trauma Right hand Initial BP 115/80 mmHg Pulse 74 Temp(Src) 97.5 ??F (36.4 ??C) (Oral) Resp 16 Ht 5' 9 (1.753m) Wt 206 lb 14.4 oz (93.849 kg) BMI 30.54 kg/m2 SpO2 96% Estimated body mass index is 30.54 kg/(m^2) as calculated from the following: Height as of this encounter: 5' 9 (1.753 m). Weight as of this encounter: 206 lb 14.4 oz (93.849 kg). BP completed using cuff size: large rt arm Gladys Montesinos MA Health Maintenance has been reviewed. ITURE SHAMPOOER documented in this encounter Miscellaneous Notes Addendum Note - Dwain Catalan - 04/05/2015 5:13 PM FURNITURE SHAMPOOER Addended by: DWAIN CATALAN on: 04/05/2015 05:13 PM Modules accepted: Orders ITURE SHAMPOOER documented in this encounter Plan of Treatment Not on filedocumented as of this encounter Visit Diagnoses Diagnosis Pain of right upper extremity - Primary Mixed hyperlipidemia documented in this encounter Care Teams Post Acute Care Nurse Relationship Specialty Start Date End Date Raghavendra Deras MD PCP - General Family Practice 10/07/13 documented as of this encounter
--- OUTSIDE RECORDS SUMMARY | 2021-11-04 10:36 | XMS_ITS | Encounter Summary ---
:1945 Author Organization [place] Address [address] [facility] [place] [address] Care Team Providers Name Role Phone Raghavendra Deras MD Primary Care Provider Unavailable Raghavendra Deras MD Unavailable Unavailable Raghavendra Deras MD Unavailable Unavailable Reason for Visit Reason Comments Urgent Care URI Cough x1 week- severe cough, coughing up phlegm, nasal discharge, having lateral abdominal soreness f rom coughing, sinus pain and pressure, low grade fever Encounter Details Date Type Department Care Team Description 07/07/2017 Office Visit [facility] Urgent Tyler Calderon, Cough (Primary Dx) Care Candy SALDIVAR [address] 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 Afrin Nasal Reg 2. Flonase 3. Kyree AC 4. Omnicef documented in this encounter Progress Notes Tyler Calderon MD - 07/07/2017 10:20 AM CDT Tyler Calderon MD - 07/07/2017 10:20 AM CDT SUBJECTIVE: Terry Montero is a 72 year old male presenting with a chief complaint of Chief Complaint Patient presents with ??? Urgent Care ??? URI Cough x1 week- severe cough, coughing up phlegm, nasal discharge, having lateral abdominal sorenessfrom coughing, sinus pain and pressure, low grade fever Now with nausea and diarrhea. No fever and no chills. Cough so bad that his ribs hurt. He is an established patient of [facility]. Review of Systems Past Medical History: Diagnosis Date ??? Acute duodenal ulcer with hemorrhage, without mention of obstruction 1997 ??? Arthritis ??? BPH (benign prostatic hyperplasia) ??? Essential hypertension, benign 12/30/2002 ? ? Hyperlipidemia LDL goal < 130 04/15/2014 ? ? Hypertension goal BP (blood pressure) < 140/90 06/24/2010 ??? Pulmonary nodule CT reassuring 2008 ??? SCC (squamous cell carcinoma), face 03/16/2008 Family History Problem Relation Age of Onset ??? DIABETES Maternal Grandmother ??? CEREBROVASCULAR DISEASE Maternal Grandmother older, 70's or 80's ??? Prostate Cancer Paternal Grandfather not sure ??? HEART DISEASE Brother stent - 66 ??? Prostate Cancer Brother no cancer, but a produre due reduce the prostate ??? CANCER Sister bone caner/lung cancer ??? Family History Negative Mother ??? Family History Negative Father ??? C.A.D. Maternal Uncle [place] ??? Cancer - colorectal Maternal Uncle ??? Prostate Cancer Other Cousin Current Outpatient Prescriptions Medication Sig Dispense Refill ??? cefdinir (OMNICEF) 300 MG capsule Take 1 capsule (300 mg) by mouth 2 times daily 20 capsule 0 ??? doxazosin (CARDURA) 8 MG tablet Take 0.5 tablets (4 mg) by mouth At Bedtime 45 tablet 3 ??? fish oil-omega-3 fatty acids 1000 MG capsule Take 2 capsules (2 g) by mouth daily PT IS NOW TAKING 1 TAB PER DAY 90 capsule ??? fluticasone (FLONASE) 50 MCG/ACT spray Points 1-2 sprays into both nostrils daily 1 Bottle 3 ??? guaiFENesin-codeine (ROBITUSSIN AC) 100-10 MG/5ML SOLN solution Take 5 mLs by mouth every 4 hours as needed for cough 120 mL 0 ??? losartan (COZAAR) 25 MG tablet Take 1 tablet (25 mg) by mouth daily 90 tablet 3 ??? Multiple Vitamins-Minerals (CENTRUM SILVER ULTRA MENS PO) Take 1 tablet by mouth daily ??? omeprazole (PRILOSEC) 40 MG capsule Take 1 capsule (40 mg) by mouth daily Take 30-60 minutes before a meal. 90 capsule 3 ??? simvastatin (ZOCOR) 40 MG tablet Take 0.5 tablets (20 mg) by mouth At Bedtime 45 tablet 3 Social History Substance Use Topics ??? Smoking status: Former Smoker Packs/day: 0.50 Years: 20.00 Types: Cigarettes Quit date: 02/06/1984 ??? Smokeless tobacco: Never Used ??? Alcohol use 1.0 oz/week Comment: occasional OBJECTIVE BP 142/90 (BP Location: Right arm, Patient Position: Chair, Cuff Size: Adult Regular) Pulse 96 Temp 98.6 ??F (37 ??C) (Oral) Wt 208 lb (94.3 kg) SpO2 97% BMI 30.72 kg/m2 Physical Exam Constitutional: He appears well-developed. HENT: Tympanic membranes are clear inferior turbinates are enlarged bilaterally with drainage. Oropharynx is erythematous. Eyes: Pupils are equal, round, and reactive to light. Neck: Normal range of motion. Cardiovascular: Normal rate and regular rhythm. Pulmonary/Chest: Effort normal. Abdominal: Soft. Musculoskeletal: Normal range of motion. Lymphadenopathy: He has cervical adenopathy. Neurological: He is alert. Skin: Skin is warm. Nursing note and vitals reviewed. Labs: No results found for this or any previous visit (from the past 24 hour(s)). X-Ray was not done. ASSESSMENT: ICD-10-CM 1. Cough R05 guaiFENesin-codeine (ROBITUSSIN AC) 100-10 MG/5ML SOLN solution cefdinir (OMNICEF) 300 MG capsule 2. Diarrhea 3. Cough 4. Rib pain. 72-year-old male with what appears to be sinusitis, bronchitis and probably some gastroenteritis caused by this respiratory infection he had it for a week and was doing a little bit better then all of a sudden seemed to get worse over the last 1-2 days. In addition he is coughing so much that he is having severe rib pain bilaterally in the lower ribs. Auscultation of his lungs today did reveal that he is moving air well but there is coarse breath sounds bilaterally. Medical Decision Making: Differential Diagnosis: URI Adult/Peds: Allergic rhinitis, Bronchospasm, Croup, Pneumonia, Sinusitis, Strep pharyngitis, Viral pharyngitis, Viral syndrome and Viral upper respiratory illness Serious Comorbid Conditions: Adult: None PLAN: URI Adult: Tylenol and Ibuprofen Followup: If not improving or if condition worsens, follow up with your Primary Care Provider Patient Instructions 1. Afrin Nasal Reg 2. Flonase 3. Kyree AC 4. Omnicef documented in this encounter Plan of Treatment Not on filedocumented as of this encounter Visit Diagnoses Diagnosis Cough - Primary documented in this encounter Care Teams Legal Officer Relationship Specialty Start Date End Date Braeden, Raghavendra Ray, MD PCP - General Family Practice 10/07/13 Raghavendra Deras MD PCP - Assigned PCP 01/23/16 04/09/18 Raghavendra Deras MD Assigned PCP 01/23/16 05/14/21 documented as of this encounter
--- OUTSIDE RECORDS SUMMARY | 2021-11-04 10:36 | XMS_ITS | Encounter Summary ---
:1945 Author Organization [place] Address [facility] 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 Few RBC in urine but normal CT abdomen fairly recently. Recheck urine in 1 month. Call if any further abdominal symptoms. documented in this encounter Plan of Treatment Not on filedocumented as of this encounter Visit Diagnoses Diagnosis Microscopic hematuria - Primary documented in this encounter Care Teams Director Group Sales Relationship Specialty Start Date End Date Raghavendra Deras MD PCP - General Family Practice 10/07/13 Raghavendra Deras MD PCP - Assigned PCP 01/23/16 04/09/18 Raghavendra Deras MD Assigned PCP 01/23/16 05/14/21 documented as of this encounter
--- OUTSIDE RECORDS SUMMARY | 2021-11-04 10:36 | XMS_ITS | Encounter Summary ---
:1945 Author Organization [place] Address [facility] [facility] 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 documented as of this encounter Last Filed Vital Signs Vital Sign Reading Time Taken Comments Blood Pressure 136/82 02/12/2017 2:48 PM MAT REPAIRER Pulse 74 02/12/2017 2:48 PM MAT REPAIRER Temperature 37 ??C (98.6 ??F) 02/12/2017 2:48 PM MAT REPAIRER Respiratory Rate - - Oxygen Saturation - - Inhaled Oxygen Concentration - - Weight 93.4 kg (206 lb) 02/12/2017 2:48 PM MAT REPAIRER Height 175.3 cm (5' 9) 02/12/2017 2:48 PM MAT REPAIRER Body Mass Index 30.42 02/12/2017 2:48 PM MAT REPAIRER documented in this encounter Progress Notes Raghavendra Deras MD - 02/12/2017 2:40 PM CST SUBJECTIVE: Terry Montero is a 71 year old male who presents to clinic today for the following health issues: Patient here for ER follow-up 02/09/2017. He reports improvement. The last time he vomited was Sunday and the last time he had diarrhea was three days ago. He has abdominal pain when standing up and walking around. Eating jam and toast relieves the abdominal pain. He has been drinking Gatorade. Patient reports having similar symptoms in the past. Denies blood in stools, urinary symptoms. CT ABDOMEN AND PELVIS WITH CONTRAST 02/09/2017 IMPRESSION: 1. No acute findings in abdomen or pelvis. 2. Sigmoid diverticulosis without evidence of diverticulitis. 3. Mildly enlarged prostate, unchanged. Problem list and histories reviewed & adjusted, as indicated. Additional history: as documented Patient Active Problem List Diagnosis ??? Actinic keratosis ??? Allergic rhinitis ??? Esophageal reflux ??? SCC (squamous cell carcinoma), face ??? MORENITA (obstructive sleep apnea) ??? History of peptic ulcer disease ? ? Hypertension goal BP (blood pressure) < 140/90 ??? Advanced directives, counseling/discussion ??? Adenomatous polyp of colon ??? Benign prostatic hypertrophy with lower urinary tract symptoms (LUTS) ? ? Hyperlipidemia LDL goal <130 Past Surgical History: Procedure Laterality Date ??? COLONOSCOPY 06/05/2013 Procedure: COLONOSCOPY; Surgeon: Matthew Richardson MD; Location: [facility] ??? HC COLONOSCOPY THRU STOMA, DIAGNOSTIC 2002 Social History Substance Use Topics ??? Smoking status: Former Smoker Packs/day: 0.50 Years: 20.00 Types: Cigarettes Quit date: 02/06/1984 ??? Smokeless tobacco: Never Used ??? Alcohol use 1.0 oz/week Comment: occasional Family History Problem [...] History Negative Father ??? C.A.D. Maternal Uncle [place] ??? Cancer - colorectal Maternal Uncle ??? Prostate Cancer Other Cousin Reviewed and updated as needed this visit by clinical staffTobacco Allergies Meds Med Hx Surg Hx Fam Hx Soc Hx Reviewed and updated as needed this visit by Provider ROS: GI: as above : negative for dysuria, hematuria, decreased urinary stream This document serves as a record of the services and decisions personally performed and made by Raghavendra Deras MD. It was created on his behalf by Radha Mobley, a trained back office medical assistant. The creation of this document is based on the provider's statements to the back office medical assistant. Radha Mobley 3:11 PM February 12, 2017 OBJECTIVE: BP 136/82 (BP Location: Right arm, Patient Position: Chair, Cuff Size: Adult Regular) Pulse 74 Temp 98.6 ??F (37 ??C) (Oral) Ht 1.753 m (5' 9) Wt 93.4 kg (206 lb) BMI 30.42 kg/m2 Body mass index is 30.42 kg/(m^2). GENERAL: healthy, alert and no distress ABDOMEN: soft, nontender, no hepatosplenomegaly, no masses and bowel sounds normal ASSESSMENT/PLAN: 1. Abdominal pain, generalized Improved at this time. No issues noted on labs or imaging. Follow-up if further symptoms occur. The information in this document, created by the back office medical assistant for me, accurately reflects the services I personally performed and the decisions made by me. I have reviewed and approved this document for accuracy prior to leaving the patient care area. February 12, 2017 3:35 PM Raghavendra Deras MD [facility] REPAIRER documented in this encounter Nursing Notes Fatemeh Camacho, MINDY - 02/12/2017 2:40 PM CST Chief Complaint Patient presents with ??? ER F/U Initial BP 136/82 (BP Location: Right arm, Patient Position: Chair, Cuff Size: Adult Regular) Pulse 74 Temp 98.6 ??F (37 ??C) (Oral) Ht 5' 9 (1.753 m) Wt 206 lb (93.4 kg) BMI 30.42 kg/m2 Estimated body mass index is 30.42 kg/(m^2) as calculated from the following: Height as of this encounter: 5' 9 (1.753 m). Weight as of this encounter: 206 lb (93.4 kg). Medication Reconciliation: complete Health Maintenance addressed: NONE n/a Fatemeh Camacho CMA REPAIRER documented in this encounter Plan of Treatment Not on filedocumented as of this encounter Visit Diagnoses Diagnosis Abdominal pain, generalized - Primary documented in this encounter Care Teams Veneer Sheet Repairer Relationship Specialty Start Date End Date Raghavendra Deras MD PCP - General Family Practice 10/07/13 Raghavendra Deras MD PCP - Assigned PCP 01/23/16 04/09/18 Raghavendra Deras MD Assigned PCP 01/23/16 05/14/21 documented as of this encounter
--- OUTSIDE RECORDS SUMMARY | 2021-11-04 10:36 | XMS_ITS | Encounter Summary ---
:1945 Author Organization [place] Address [address] [facility] 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 documented in this encounter Results XR Lumbar Spine G/E 4 Views (10/06/2015 11:34 AM CDT) Anatomical Region Laterality Modality Spine Computed Radiography Specimen (Source) Anatomical Location Collection Method / Collectio n Time Received Time / Laterality Volume Impressions 10/06/2015 11:42 AM CDT IMPRESSION: L5-S1 1.0 cm grade 1-2 spondylolisthesis, most likely on the basis of bilateral L5 pars interarti cularis defects. The degree of spondylolisthesis is minimally if at all changed with flexion and extension. Mild to moderate degenerative loss of disc height is noted at L5-S1. Disc heights in the remainder of the lumbar spine appear within normal limits with mild anterior spurring noted in the mid lumbar spine. Vertebral body heights maurice ear within normal limits. ELIZABETH PIRES MD Narrative 10/06/2015 11:42 AM CDT XR LUMBAR SPINE G/E 4 VW 10/06/2015 11:34 AM HISTORY: Low back pain Procedure Note Trixie Pires MD - 10/06/2015Formatt ing of this note might be different from the original. XR LUMBAR SPINE G/E 4 VW 10/06/2015 11:34 AM HISTORY: Low back pain IMPRESSION: L5-S1 1.0 cm grade 1-2 spond ylolisthesis, most likely on the basis of bilateral L5 pars interarti cularis defects. The degree of spondylolisthesis is minimally if at all changed with flexion and extension. Mild to moderate degenerative loss of disc height is noted at L5-S1. Disc heights in the remainder of the lumbar spine appear within normal limits with mild anterior spurring noted in the mid lumbar spine. Vertebral body heights maurice ear within normal limits. ELIZABETH PIRES MD Artis Thrasher DO [facility] MICHELLE documented in this encounter Visit Diagnoses Diagnosis Chronic left-sided low back pain without sciatica documented in this encounter Care Teams Health Education Specialist Relationship Specialty Start Date End Date Raghavendra Deras MD PCP - General Family Practice 10/07/13 documented as of this encounter
--- OUTSIDE RECORDS SUMMARY | 2021-11-04 10:36 | XMS_ITS | Encounter Summary ---
:1945 Author Organization [place] Address [address] [facility] [place] [address] Care Team Providers Name Role Phone Raghavendra Deras MD Primary Care Provider Unavailable Raghavendra Deras MD Unavailable Unavailable Raghavendra Deras MD Unavailable Unavailable Reason for Visit Reason Comments Abdominal Pain Nausea, Vomiting, & Diarrhea Encounter Details Date Type Department Care Team Description 02/09/2017 Emergency [facility] Dillan Faulkner V omiting and diarrhea; [facility] Emergency Dep t Abdominal pain, generalized [address] [facility] [place], [place] [id number] [id number] [facility] [phone] [place], [place] [address] (Wo rk) Social History Tobacco Use Types [...] at Date Recorded Male 01/15/2018 11:39 PM CONTRACT ADMINISTRATIVE ASSISTANT documented as of this encounter Last Filed Vital Signs Vital Sign Reading Time Taken Comments Blood Pressure 109/78 02/09/2017 1:51 PM CONTRACT ADMINISTRATIVE ASSISTANT Pulse - - Temperature 36.6 ??C (97.9 ??F) 02/09/2017 8:46 AM CONTRACT ADMINISTRATIVE ASSISTANT Respiratory Rate 18 02/09/2017 8:46 AM CONTRACT ADMINISTRATIVE ASSISTANT Oxygen Saturation 98% 02/09/2017 1:51 PM CONTRACT ADMINISTRATIVE ASSISTANT Inhaled Oxygen Concentration - - Weight 90.7 kg (200 lb) 02/09/2017 8:46 AM CONTRACT ADMINISTRATIVE ASSISTANT Height 175.3 cm (5' 9) 02/09/2017 8:46 AM CONTRACT ADMINISTRATIVE ASSISTANT Body Mass Index 29.53 02/09/2017 8:46 AM CONTRACT ADMINISTRATIVE ASSISTANT documented in this encounter Discharge Instructions Discharge InstructionsAniya Caputo PA-C - 02/09/2017 12:50 PM CONTRACT ADMINISTRATIVE ASSISTANT *Drink plenty of fluids and advance diet slowly. *Take medications as prescribed. Zofran for nausea. [place] for abdominal pain. Continue your current medications. *Follow-up with your doctor for a recheck in 2-3 days. *Return if you are unable to keep fluids down, develop severe abdominal pain, faint or feel like youwill faint or become worse in any way. Discharge Instructions Gastroenteritis You have been seen today for vomiting and diarrhea, called gastroenteritis or the stomach flu. This is usually caused by a virus, but some bacteria, parasites, medicines or other medical conditions cancause similar symptoms. At this time your doctor does not find that your vomiting and diarrhea is a sign of anything dangerous or life-threatening. However, sometimes the signs of serious illness do not show up right away. If you have new or worse symptoms, you may need to be seen again in the emergency department or by your primary doctor. Remember that serious problems like appendicitis can look like gastroenteritis at first. Return to the Emergency Department if: ??? You keep throwing up and you are not able to keep liquids down. ??? You feel you are getting dehydrated, such as being very thirsty, not urinating at least every 8-12 hours, or feeling faint or lightheaded. ??? You develop a new fever, or your fever continues for more than 2 days. ??? You have belly pain that seems worse than cramps, is in one spot, or is getting worse over time. ??? You have blood in your vomit or in your diarrhea. ??? You feel very weak ??? You are not starting to improve within 24 hours of your visit here What can I do to help myself? The most important thing to do is to drink clear liquids. If you have been vomiting a lot, it isbest to have only small, frequent sips of liquids. Drinking too much at once may cause more vomiting. If you are vomiting often, you must replace minerals, sodium and potassium lost with your illness. Pedialyte?? and sports drinks can help you replace these minerals. You can also drink clear liquids such as water, weak tea, apple juice, and 7-up. Avoid acid liquids (orange), caffeine (coffee) or alcohol. Do not drink milk until you no longer have diarrhea. ??? After liquids are staying down, you may start eating mild foods. Soda crackers, toast, plain noodles, gelatin, applesauce and bananas are good first choices. Avoid foods that have acid, are spicy, fatty or fibrous (such as meats, coarse grains, vegetables). You may start eating these foods again in about 3 days when you are better. ??? Sometimes treatment includes prescription medicine to prevent nausea and vomiting and to preventdiarrhea. If your doctor prescribes these for you, take them as directed. ??? Nonprescription medicine is available for the treatment of diarrhea and can be very effective. If you use it, make sure you use the dose recommended on the package. Avoid Lomotil. Check with your healthcare provider before you use any medicine for diarrhea. ??? Don???t take ibuprofen, or other nonsteroidal anti-inflammatory medicines without checking with your healthcare provider. Remember that you can always come back to the Emergency Department if you are not able to see your regular doctor in the amount of time listed above, if you get any new symptoms, or if there is anything that worries you. Opioid Medication Information You have been given a prescription for an opioid (narcotic) pain medicine and/or have received a pain medicine while here in the Emergency Department. These medicines can make you drowsy or impaired. You must not drive, operate dangerous equipment, or engage in any other dangerous activities while taking these medications. If you drive while taking these medications, you could be arrested for drivingunder the influence (DUI). Do not drink any alcohol while you are taking these medications. Opioid pain medications can cause addiction. If you have a history of chemical dependency of any type, you are at a higher risk of becoming addicted to pain medications. Only take these prescribed medications to treat your pain when all other options have been tried. Take it for as short a time and asfew doses as possible. Store your pain pills in a secure place, as they are frequently stolen and provide a dangerous opportunity for children or visitors in your house to start abusing these powerful medications. We will not replace any lost or stolen medicine. If you do not finish your medication, please dispose of the remaining medication as recommended by your pharmacist. The [place] [employer] has additional information on medication disposal: https://www .bioinformatics software engineer.[facility].ak.us/living-green/qfewykky-wnkkxhaz-ksoaggowwdl. Many prescription pain medications contain Tylenol?? (acetaminophen), including Vicodin??, Tylenol #3??, [place]??, Lortab??, and Percocet??. You should not take any extra pills of Tylenol?? if you are using these prescription medications or you can get very sick. Do not ever take more than 3000 mg of acetaminophen in any 24 hour period. All opioids tend to cause constipation. Drink plenty of water and eat foods that have a lot of fiber, such as fruits, vegetables, prune juice, apple juice and high fiber cereal. Take a laxative if you don???t move your bowels at least every other day. Miralax??, Milk of Magnesia, Colace??, or Senna?? can be used to keep you regular. RACT ADMINISTRATIVE ASSISTANT documented in this encounter Medications at Time of Discharge Medication Sig Dispensed Refills Start Date End Date fish oil-omega-3 fatty Take 2 capsules (2 90 capsule 0 10/07 acids 1000 MG capsule g) by mouth daily PT IS NOW TAKING 1 TAB PER DAY Multiple Take 1 tablet by 0 Vitamins-Minerals mouth daily (CENTRUM SILVER ULTRA MENS PO) ondansetron (ZOFRAN ODT) Take 1 tablet (4 10 tablet 0 02/0902/12/2017 4 MG ODT tab mg) by mouth every 8 hours as needed for nausea doxazosin (CARDURA) 8 MG Take 0.5 tablets (4 45 tablet 3 02/08/2018 tabletIndications: mg) by mouth At Hypertension goal BP Bedtime (blood pressure) < 140/90 fluticasone (FLONASE) 50 [place] 1-2 sprays 1 Bottle 3 01/1108/05/2018 MCG/ACT sprayIndications: into both nostrils Seasonal allergic daily rhinitis, unspecified allergic rhinitis trigger HYDROcodone-acetaminophen Take 1 tablet by 10 tablet 0 06/201702/12/2017 (NORCO) 5-325 MG per mouth every 4 hours tablet as needed for moderate to severe pain losartan (COZAAR) 25 MG Take 1 tablet (25 90 tablet 3 01/3102/07/2018 tabletIndications: mg) by mouth daily Hypertension goal BP (blood pressure) < 140/90 omeprazole (PRILOSEC) 40 Take 1 capsule (40 90 capsule 3 02/07/2018 MG capsuleIndications: mg) by mouth daily History of peptic ulcer Take 30-60 minutes disease before a meal. simvastatin (ZOCOR) 40 MG Take 0.5 tablets 45 tablet 3 01/0603/19/2018 tabletIndications: (20 mg) by mouth At Hyperlipidemia LDL goal Bedtime <130 documented as of this encounter ED Notes Dalia Manuel RN - 02/09/2017 2:12 PM CST Patient stated felt dizzy upon getting up at bedside, was walking around the room and became nauseous. Vomited small amount. States feels better after being up for a while. Oral zofran provided along with water given per PA request. Patient sitting at bedside. Ailyn Mccollum RN - 02/09/2017 8:48 AM CST A&Ox4. ABC's intact. Pt c/o N/V/D and abdominal pain since Sunday. 2 other family members also had similar symptoms. Pain 10/10. Took Tylenol 500mg AUTOMOTIVE UPHOLSTERER. Aniya Apple PA-C - 02/09/2017 8:38 AM CST History Chief Complaint: Abdominal pain, nausea, vomiting, and diarrhea [place] Montero is a 71 year old male with a history of GERD who presents with abdominal pain, nausea, vomiting, and diarrhea. The patient reports that he began experiencing severe abdominal pain in the setting of nausea, vomiting, and diarrhea two days ago, beginning at 2100 in the evening. He has experienced chills intermittently as well. He notes that two other family members have had similarsymptoms to a lesser degree. Abdominal pain seemed to subside until last night when it returned. Pain localized to his lower abdomen described. He has taken tylenol for his pain with no symptomatic relief. Of note the patient was seen in October of this year for similar abdominal pain and was admitted over night, ultimately being diagnosed with gastroenteritis. He denies having any history of abdominal surgery. The patient denies having had any recorded fevers. Allergies: Mometasone furoate monohydrate Quinazolines Medications: Zocor Cardura Omeprazole Losartan Flonase Past Medical History: GERD Acute duodenal ulcer with hemorrhage Arthritis Hypertension Hyperlipidemia Pulmonary nodule Squamous cell carcinoma face Past Surgical History: Colonoscopy Family History: Heart disease Prostate cancer Social History: The patient was accompanied to the ED by his . Smoking Status: Former Smokeless Tobacco: No Alcohol Use: Yes Marital Status: [2] Review of Systems Constitutional: Positive for chills. Negative for fever. Gastrointestinal: Positive for abdominal pain, diarrhea, nausea and vomiting. All other systems reviewed and are negative. Physical Exam Vitals: Patient Vitals for the past 24 hrs: BP Temp Temp src Heart Rate Resp SpO2 Height Weight 02/09/17 1243 - - - - - 100 % - - 02/09/17 1202 135/82 - - - - 96 % - - 02/09/17 1059 - - - - - 97 % - - 02/09/17 1053 135/88 - - - - - - - 02/09/17 1042 - - - - - 94 % - - 02/09/17 1016 144/85 - - - - 96 % - - 02/09/17 1000 - - - - - 96 % - - 02/09/17 0952 131/89 - - - - 99 % - - 02/09/17 0941 - - - - - 99 % - - 02/09/17 0908 140/84 - - - - - - - 02/09/17 0906 - - - - - 98 % - - 02/09/17 0846 (!) 127/101 97.9 ??F (36.6 ??C) Temporal 85 18 99 % 1.753 m (5' 9) 90.7 kg (200 lb) Physical Exam General: Alert, interactive in mild distress. Head: Scalp is atraumatic. Eyes: EOM intact. The pupils are equal, round, and reactive to light. No scleral icterus. ENT: Ears: The external ears are normal. Nose: The external nose is normal. Throat: The oropharynx is normal. Mucus membranes are dry. Neck: Normal range of motion. There is no rigidity. CV: Regular rate and rhythm. No murmur. 2+ radial and DP pulses Resp: Breath sounds are clear bilaterally. Non-labored, no retractions or accessory muscle use. GI: Abdomen is soft, no distension, tenderness to epigastric area. No rebound or guarding. Negative Morrison's sign. No McBurney's point tenderness. MS: Normal strength in all 4 extremities. Skin: Warm and dry, No rash or lesions noted. Neuro: Strength 5/5 x4. Sensation intact in all 4 extremities. GCS: 15 Psych: Awake. Alert. Appropriate interactions. Emergency Department Course Imaging: Radiology findings were communicated with the patient who voiced understanding of the findings. CT abdomen pelvis w contrast: IMPRESSION: 1. No acute findings in abdomen or pelvis. 2. Sigmoid diverticulosis without evidence of diverticulitis. 3. Mildly enlarged prostate, unchanged. Reading per radiology. Laboratory: Laboratory findings were communicated with the patient who voiced understanding of the findings. CBC: Lymphocytes: 0.7(L), o/w WNL (WBC 7.1, HGB 14.9, PLT 164) CMP: Glucose: 114(H), BUN: 31(H), Creatinine: 1.30(H), GFR: 54(L), o/w WNL Interventions: 0924 Normal Saline 1000 mL IV 0925 Zofran 4 mg IV 1015 Morphine 4 mg IV 1200 [place] 5-325 mg 2 tablets oral 1205 Zofran 4 mg IV Emergency Department Course: Nursing notes and vitals reviewed. I performed an exam of the patient as documented above. IV was inserted and blood was drawn for laboratory testing, results above. Supervising provider, Dr. Faulkner, also interviewed and examined the patient at bedside and agreeswith the plan. The patient was sent for a CT while in the emergency department, results above. 1149 I rechecked with the patient. Repeat abdominal exam benign without marked tenderness. 1258: I personally reviewed the laboratory results with the patient and daughter and answered all related questions prior to discharge. Impression & Plan Medical Decision Making: Terry Montero is a 71 year old male who presents with 2 days of nausea, vomiting, diarrhea, and abdominal pain. Patient reports today worsening lower abdominal pain that waxed and waved in severity. On exam has epigastric tenderness. No rebound or guarding. Vitals normal on arrival. I considered a broad differential diagnosis for this patient including viral gastroenteritis, bacterial infection of the large intestine including c diff, bowel obstruction, intra-abdominal infection such as colitis, food poisoning, cholecystitis, appendicitis, diverticulitis, etc. There are no signs of worrisome intra-abdominal emergencies detected during the visit today. CT showed diverticulosis without acute infection, no other acute findings. On initial eval, patient had mild epigastric tenderness, though on repeat had a completely benign abdominal exam without rebound, guarding, or marked tenderness to palpation. Patient passed PO challenge and supportive outpatient management is indicated. Recommended drinking plenty fluids and eating a bland diet throughout the day. Return precautions discussed including blood in stool, increasing pain, or fevers more than 101. Feels much improved after interventions in ED. Discharged home with short course of [place] for pain and Zofran. Opioid precautions discussed and handout given. All questions/concerns addressed prior to discharge home. Diagnosis: ICD-10-CM 1. Vomiting and diarrhea R11.10 R19.7 2. Abdominal pain, generalized R10.84 Disposition: Discharge to home Discharge Medications: New Prescriptions HYDROCODONE-ACETAMINOPHEN (NORCO) 5-325 MG PER TABLET Take 1 tablet by mouth every 4 hours as needed for moderate to severe pain ONDANSETRON (ZOFRAN ODT) 4 MG ODT TAB Take 1 tablet (4 mg) by mouth every 8 hours as needed for nausea Scribe Disclosure: Jermaine Miles, am serving as a scribe at 9:10 AM on 02/09/2017 to document services personally performed by Aniya Caputo PA-C based on my observations and the provider's statements to me. [facility] EMERGENCY DEPARTMENT Aniya Caputo PA-C 02/09/17 1308 RACT ADMINISTRATIVE ASSISTANT Associated attestation - Dillan Faulkner MD - 02/09/2017 3:53 PM CONTRACT ADMINISTRATIVE ASSISTANT The documentation recorded by the scribe accurately reflects the services I personally performed andthe decisions made by me. Emergency Department Attending Supervision Note 07/03/2015 8:44 AM I evaluated this patient with Patito NOEL. Briefly, the patient presented with vomiting and diarrhea abdominal pain. There have been sick contacts with his pain appeared to recur, concerning for possible alternative etiology to gastroenteritis.He does have a night abdominal exam. Given advanced age and the above, CT was performed and is negative. On recheck is feeling significant better. He is tolerating p.o.'s without difficulty and has improved pain. Plan primary care follow-up in 2-3 days and strict return precautions for worse pain, fever, vomiting, or any other concerns. In summary, my impression is: Visit Diagnosis, Associated Orders, and Comments ICD-10-CM 1. Vomiting and diarrhea R11.10 R19.7 2. Abdominal pain, generalized R10.84 Dillan Faulkner MD [facility] Emergency Department documented in this encounter Plan of Treatment Not on filedocumented as of this encounter Procedures Procedure Name Priority Date/Time Associated Comments Diagnosis CT ABDOMEN PELVIS W STAT 02/09/2017 11:29 Resu lts for this CONTRAST AM CONTRACT ADMINISTRATIVE ASSISTANT procedure are i n the results section. CBC WITH PLATELETS & STAT 02/09/2017 9:17 AM R esults for this DIFFERENTIAL CONTRACT ADMINISTRATIVE ASSISTANT procedure are i n the results section. COMPREHENSIVE STAT 02/09/2017 9:17 AM Results for this METABOLIC PANEL CONTRACT ADMINISTRATIVE ASSISTANT procedure ar e in the results section. documented in this encounter Results CT Abdomen Pelvis w Contrast (02/09/2017 11:29 AM CONTRACT ADMINISTRATIVE ASSISTANT) Anatomical Region Laterality Modality Abdomen/Pelvis, SUBRAD CT BODY, UMP CT ABDOMEN PELVIS, Computed Tomography RAD CT Specimen (Source) Anatomical Location Collection Method / Collectio n Time Received Time / Laterality Volume Impressions 02/09/2017 11:47 AM CONTRACT ADMINISTRATIVE ASSISTANT IMPRESSION: 1. No acute findings in abdomen or pelvi s. 2. Sigmoid diverticulosis without eviden ce of diverticulitis. 3. Mildly enlarged prostate, unchanged. ELLY TRACY DO Narrative 02/09/2017 11:47 AM CONTRACT ADMINISTRATIVE ASSISTANT CT ABDOMEN AND PELVIS WITH CONTRAST ?? 02/09/2017 11:29 AM HISTORY: Diffuse abdominal pain, vomitin g. TECHNIQUE: ??CT abdomen and pelvis with 100 mL Isovue-370 IV. Radiation dose for this scan was reduced using aut omated exposure control, adjustment of the mA and/or kV according to patient size, or iterative reconstruction technique. COMPARISON: 05/26/2016. FINDINGS: Lung bases: Lung bases are clear. No ple ural effusion or pericardial effusion. Abdomen: Small splenule. The spleen, kid neys, adrenal glands, liver, gallbladder and pancreas show no focal a bnormality. No intrahepatic or extrahepatic biliary dilatation. No intr aperitoneal free air or free fluid. Hepatic and portal veins are thompson nt. Small and large bowel are normal in cricket jenna without evidence of obstruction. Sigmoid diverticulosis with out evidence of diverticulitis. The appendix is normal. Bladder is normal. Prostate is enlarged with central calcification. No abdominal or pelvic lymphadenopathy. No abdominal aortic ane urysm. Bones: No suspicious bony lesions. No ch evaristo in bilateral L5 spondylolysis. Procedure Note Elly Tracy, - 2017 CT ABDOMEN AND PELVIS WITH CONTRAST 2017 11:29 AM HISTORY: Diffuse abdominal pain, vomitin g. TECHNIQUE: CT abdomen and pelvis with 10 0 mL Isovue-370 IV. Radiation dose for this scan was reduced using aut omated exposure control, adjustment of the mA and/or kV according to patient size, or iterative reconstruction technique. COMPARISON: 05/26/2016. FINDINGS: Lung bases: Lung bases are clear. No ple ural effusion or pericardial effusion. Abdomen: Small splenule. The spleen, kid neys, adrenal glands, liver, gallbladder and pancreas show no focal a bnormality. No intrahepatic or extrahepatic biliary dilatation. No intr aperitoneal free air or free fluid. Hepatic and portal veins are thompson nt. Small and large bowel are normal in cricket jenna without evidence of obstruction. Sigmoid diverticulosis with out evidence of diverticulitis. The appendix is normal. Bladder is normal. Prostate is enlarged with central calcification. No abdominal or pelvic lymphadenopathy. No abdominal aortic ane urysm. Bones: No suspicious bony lesions. No ch evaristo in bilateral L5 spondylolysis. IMPRESSION: 1. No acute findings in abdomen or pelvi s. 2. Sigmoid diverticulosis without eviden ce of diverticulitis. 3. Mildly enlarged prostate, unchanged. ELLY TRACY DO Dillan Faulkner MD IMG CT ORDERABLES (ABNORMAL) Comprehensive metabolic panel (02/09/2017 9:17 AM [facility]) Analysis Performed At Patho logist Time Signature Sodium 139 133 - 144 02/09/2017 [facility] mmol/L 10:03 AM [facility] Potassium 3.5 3.4 - 5.3 02/09/2017 [facility] mmol/L 10:03 AM [facility] Chloride 106 94 - 109 02/09/2017 [facility] mmol/L 10:03 AM [facility] Carbon Dioxide 24 20 - 32 02/09/[facility] mmol/L 10:03 AM [facility] Anion Gap 9 3 - 14 02/09/2017 [facility] mmol/L 10:03 AM [facility] Glucose 114 (H) 70 - 99 02/09/2017 [facility] mg/dL 10:03 AM [facility] Urea Nitrogen 31 (H) 7 - 30 02/09/2017 [facility] mg/dL 10:03 AM [facility] Creatinine 1.30 (H) 0.66 - 02/09/2017 [facility] 1.25 mg/dL 10:03 AM [facility] GFR Estimate 54 (L) >60 02/09/2017 [facility] mL/min/1.7 10:[address] Comment: Non GFR Calc GFR Estimate If 66 >60 mL/min/1.7m2 02/09/2017 10:[address] [facility] Comment: GFR Calc Calcium 9.0 8.5 - 10.1 mg/dL 02/09/2017 10:03 AM LEANDRA BENAVIDES [facility] Bilirubin Total 1.1 0.2 - 1.3 mg/dL 02/09/2017 10:03 A [facility] Albumin 4.1 3.4 - 5.0 g/dL 02/09/2017 10:03 AM YULIANA IEPatience [facility] Protein Total 7.8 6.8 - 8.8 g/dL 02/09/2017 10:03 AM [facility] Alkaline Phosphatase 108 40 - 150 U/L 02/09/2017 10:03 AM [facility] ALT 56 0 - 70 U/L 02/09/2017 10:03 AM [facility] AST 42 0 - 45 U/L 02/09/2017 10:03 AM [facility] Specimen Anatomical Collection Method Collection Time Receive d Time (Source) Location / / Volume Laterality Blood specimen 02/09/2017 9:17 AM 018 9:33 (specimen) CONTRACT ADMINISTRATIVE ASSISTANT [facility] Aniya Carrasquillo PA-C LAB - BLOOD ORDERABLES Performing Organization Address City/State/ZIP Code Phon e Number M [place] [address] [place] [address] [facility] [address] [phone] (ABNORMAL) CBC + differential (02/09/2017 9:17 AM [facility]) [employer] gist Method Time Signature WBC 7.1 4.0 - 02/09/2017 [facility] 11.0 9:38 AM [facility] 10e9/L [facility] RBC Count 5.05 4.4 - 5.9 02/09/2017 [facility] 10e12/L 9:38 AM [facility] Hemoglobin 14.9 13.3 - 02/09/2017 [facility] 17.7 g/dL 9:38 AM [facility] Hematocrit 44.1 40.0 - 02/09/2017 [facility] 53.0 % 9:38 AM [facility] MCV 87 78 - 100 02/09/2017 [facility] fl 9:38 AM [facility] MCH 29.5 26.5 - 02/09/2017 [facility] 33.0 pg 9:38 AM [facility] MCHC 33.8 31.5 - 02/09/2017 [facility] 36.5 g/dL 9:38 AM [facility] RDW 13.2 10.0 - 02/09/2017 [facility] 15.0 % 9:38 AM [facility] Platelet Count 164 150 - 450 02/09/2017 [facility] 10e9/L 9:38 AM [facility] Diff Method Automated 02/09/2017 [facility] Method 9:38 AM [facility] % Neutrophils 76.7 % 02/09/2017 [facility] 9:38 AM [facility] % Lymphocytes 9.4 % 02/09/2017 [facility] 9:38 AM [facility] % Monocytes 12.4 % 02/09/2017 [facility] 9:38 AM [facility] % Eosinophils 0.8 % 02/09/2017 [facility] 9:38 AM [facility] % Basophils 0.1 % 02/09/2017 [facility] 9:38 AM [facility] % Immature 0.6 % 02/09/2017 [facility] Granulocytes 9:38 AM [facility] Nucleated RBCs 0 0 /100 02/09/2017 [facility] 9:38 AM [facility] Absolute 5.5 1.6 - 8.3 02/09/2017 [facility] Neutrophil 10e9/L 9:38 AM [facility] Absolute 0.7 (L) 0.8 - 5.3 02/09/2017 [facility] Lymphocytes 10e9/L 9:38 AM [facility] Absolute 0.9 0.0 - 1.3 02/09/2017 [facility] Monocytes 10e9/L 9:38 AM [facility] Absolute 0.1 0.0 - 0.7 02/09/2017 [facility] Eosinophils 10e9/L 9:38 AM [facility] Absolute 0.0 0.0 - 0.2 02/09/2017 [facility] Basophils 10e9/L 9:38 AM [facility] Abs Immature 0.0 0 - 0.4 02/09/2017 [facility] Granulocytes 10e9/L 9:38 AM [facility] Absolute 0.0 02/09/2017 [facility] Nucleated RBC 9:38 AM [facility] Specimen Anatomical Collection Method Collection Time Receive d Time (Source) Location / / Volume Laterality Blood specimen 02/09/2017 9:17 AM 018 9:33 (specimen) CONTRACT ADMINISTRATIVE ASSISTANT AM CONTRACT ADMINISTRATIVE ASSISTANT Aniya Carrasquillo PA-C LAB - BLOOD ORDERABLES Performing Organization Address City/State/ZIP Code Phon e Number M [facility] [address], [place] [address] [facility] [address], [place] [address] [facility] [phone] documented in this encounter Visit Diagnoses Diagnosis Vomiting and diarrhea Vomiting alone Abdominal pain, generalized documented in this encounter Administered Medications Inactive Administered Medications - up to 3 most recent administrations Medication Order MAR Action Action Date Dose Rate Site 0.9% sodium chloride BOLUS New Bag 02/09/2017 9:24 AM CONTRACT ADMINISTRATIVE ASSISTANT 1,000 mLs 999 mL/hr Intravenous, 1,000 mL, ONCE, On Sun02/09/17 at 0917, For 1 dose 0.9% sodium chloride BOLUS New Bag 02/09/2017 11:23 AM CONTRACT ADMINISTRATIVE ASSISTANT 65 mLs Intravenous, 1,000 mL, ONCE, On Sun02/09/17 at 1123, For 1 dose HYDROcodone-acetaminophen (NORCO) 5-325 Given 02/09/2017 12: 00 PM CONTRACT ADMINISTRATIVE ASSISTANT 2 tablets MG per tablet 2 tablet 2 tablet, Oral, ONCE, On Sun02/09/17 at 1154, For 1 dose, Maximum acetaminophen dose from all sources= 75 mg/kg/day not to exceed 4 grams iopamidol (ISOVUE-370) solution 500 mL Given 02/09/2017 11:23 AM CONTRACT ADMINISTRATIVE ASSISTANT 100 mLs 500 mL, Intravenous, ONCE, On Sun02/09/17 at 1123, For 1 dose morphine (PF) injection 4 mg Given 02/09/2017 10:53 AM CONTRACT ADMINISTRATIVE ASSISTANT 4 mg 4 mg, Intravenous, EVERY 15 MIN PRN, moderate to severe pain, Starting on Sun02/09/17 at 0931, For 3 doses, For ordered doses up to 15 mg give IV Push undiluted over 4-5 minutes. Given 02/09/2017 10:15 AM CONTRACT ADMINISTRATIVE ASSISTANT 4 mg Given 02/09/2017 9:51 AM CONTRACT ADMINISTRATIVE ASSISTANT 4 mg ondansetron (ZOFRAN) 2 MG/ML injection Starting on Sun02/09/17 at 1203, For 1 dose, Analia Flores : cabinet override Irritant. For ordered doses up to 4 mg, give IV Push undiluted over 2-5 minutes. ondansetron (ZOFRAN) injection 4 mg Given 02/09/2017 9:25 AM CONTRACT ADMINISTRATIVE ASSISTANT 4 mg 4 mg, Intravenous, ONCE, Administer over 2-5 Minutes, On Sun02/09/17 at 0917, For 1 dose, Irritant. For ordered doses up to 4 mg, give IV Push undiluted over 2-5 minutes. ondansetron (ZOFRAN) injection 4 mg Given 02/09/2017 12:05 PM CONTRACT ADMINISTRATIVE ASSISTANT 4 mg 4 mg, Intravenous, EVERY 30 MIN PRN, nausea, vomiting, Administer over 2-5 Minutes, Starting on Sun02/09/17 at 1204, For 3 doses, May repeat in 30 minutes as needed, up to 3 doses. Irritant. For ordered doses up to 4 mg, give IV Push undiluted over 2-5 minutes. ondansetron (ZOFRAN-ODT) ODT tab 4 mg Given 02/09/2017 2:05 PM CONTRACT ADMINISTRATIVE ASSISTANT 4 mg 4 mg, Oral, ONCE, On Sun02/09/17 at 1354, For 1 dose, With dry hands, peel back foil backing and gently remove tablet; do not push oral disintegrating tablet through foil backing; administer immediately on tongue and oral disintegrating tablet dissolves in seconds; then swallow with saliva; liquid not required. documented in this encounter Active and Recently Administered Medications Times are shown in CONTRACT ADMINISTRATIVE ASSISTANT. Scheduled Medication Order 02/07/2017 02/08/2017 02/09/2017 0.9% sodium chloride BOLUS (COMPLETED) 0924 (New Bag - Provider: Dalia Manuel RN)1009 (Stopped - Provider: Dalia Manuel RN) Intravenous, 1,000 mL, ONCE, Sun02/09/17 at 0917, For 1 dose 0.9% sodium chloride BOLUS (COMPLETED) 1123 (New Bag - Provider: Laura Cherry - Comment: bulk)1127 (Stopped - Provider: Laura Cherry) Intravenous, 1,000 mL, ONCE, Sun02/09/17 at 1123, For 1 dose HYDROcodone-acetaminophen (NORCO) 5-325 MG per tablet 2 tablet ( COMPLETED) 1200 (Given - Provider: Dalia Manuel RN) 2 tablet, Oral, ONCE, Sun02/09/17 at 1154 , For 1 dose, Maximum acetaminophen dose from all sources= 75 mg/kg/day not to exceed 4 grams iopamidol (ISOVUE-370) solution 500 mL (COMPLETED) 1123 (Given - Provider: Laura Cherry - Comment: bulk) 500 mL, Intravenous, ONCE, 02/09/17 at 1123, For 1 dose ondansetron (ZOFRAN) injection 4 mg (COMPLETED) 0925 (Given - Provider: Dalia Manuel RN) 4 mg, Intravenous, ONCE, Administer over 2-5 Minutes, Sun02/09/17 at 0917, For 1 dose, Irritant. For ordered doses up to 4 mg, give IV Push undiluted over 2-5 minutes. ondansetron (ZOFRAN-ODT) ODT tab 4 mg (COMPLETED) 1405 (Given - Provider: Dalia Manuel RN) 4 mg, Oral, ONCE, Sun02/09/17 at 1354, Fo r 1 dose, With dry hands, peel back foil backing and gently remove tablet; do not push oral disintegrating tablet through foil backing; administer immediately on tongue and oral disintegrating tablet di ssolves in seconds; then swallow with saliva; liquid not required. PRN Medication Order 02/07/2017 02/08/2017 02/09/2017 morphine (PF) injection 4 mg (COMPLETED) 0951 (Given - Provider: Dalia Manuel RN)1015 (Given - Provider: Dalia Manuel, ALVERTO)1053 (Given - Provider: Dalia Manuel, ALVERTO) 4 mg, Intravenous, EVERY 15 MIN PRN, mod erate to severe pain, Starting Sun02/09/17 at 0931, For 3 doses, For ordered doses up to 15 mg give IV Push undiluted over 4-5 minutes. ondansetron (ZOFRAN) injection 4 mg 1205 (Given - Provider: Dalia Manuel RN) 4 mg, Intravenous, EVERY 30 MIN PRN, suha sea, vomiting, Administer over 2-5 Minutes, Starting 02/09/17 at 1204, For 3 doses, May repeat in 30 minutes as needed, up to 3 doses. Irritant. For ordered dos es up to 4 mg, give IV Push undiluted over 2-5 minutes. documented in this encounter Care Teams Modeling Instructor Relationship Specialty Start Date End Date Raghavendra Deras MD PCP - General Family Practice 10/07/13 Raghavendra Deras MD PCP - Assigned PCP 01/23/16 04/09/18 Raghavendra Deras MD Assigned PCP 01/23/16 05/14/21 documented as of this encounter
--- OUTSIDE RECORDS SUMMARY | 2021-11-04 10:36 | XMS_ITS | Encounter Summary ---
:1945 Author Organization [place] Address [facility] [place] [address] Care Team Providers Name Role Phone Raghavendra Deras MD Primary Care Provider Unavailable Raghavendra Deras MD Unavailable Unavailable Raghavendra Deras MD Unavailable Unavailable Reason for Referral Consultation - Closed Specialty Diagnoses / Procedures Referred By Contact Refer red To Contact Diagnoses Hoarseness of voice Raghavendra Deras MD MULTIPLE LOCATIONS [address] [place] [address] Referral ID Status Reason Start Date Expiration Date Visits Requ ested Visits Authorized [id number] Closed 01/09/2018 01/09/2019 1 1 AM Physical Therapy - Closed Specialty Diagnoses / Procedures Referred By Contact Refer red To Contact Diagnoses Midline low back pain without sciatica, [place] [address] [place] [address] Referral ID Status Reason Start Date Expiration Date Visits Requ ested Visits Authorized [id number] Closed 01/09/2018 01/09/2019 1 1 MAKER PAPERBOARD Diagnostic Imaging XR - Closed Specialty Diagnoses / Procedures Referred By Contact Refer red To Contact Diagnoses Midline low back pain without sciatica, unspecified chronicity Raghavendra Deras MD Procedures XR Lumbar Spine 2/3 Views [address] [place] [address] Referral ID Status Reason Start Date Expiration Date Visits Requ ested Visits Authorized [id number] Closed 01/09/2018 01/09/2019 1 1 MAKER PAPERBOARD Reason for Visit Reason Comments Pain neck pain is new and back pa in is chronic, have sharp pain, taking Ibuprofen Encounter Details Date Type Department Care Team Description 01/09/2018 Office Visit [facility] [place] Raghavendra Midline l ow back pain without sciatica, unspecified chronicity (Primary Dx); Clinic Candy Alan MD Hoarseness of voice [address] [place] [address] Social History Tobacco Use Types [...] at Date Recorded Male 01/15/2018 11:39 PM BOX MAKER PAPERBOARD documented as of this encounter Last Filed Vital Signs Vital Sign Reading Time Taken Comments Blood Pressure 124/74 01/09/2018 10:41 AM BOX MAKER PAPERBOARD Pulse 69 01/09/2018 10:41 AM BOX MAKER PAPERBOARD Temperature 36.6 ??C (97.9 ??F) 01/09/2018 10:41 AM BOX MAKER PAPERBOARD Respiratory Rate 16 01/09/2018 10:41 AM BOX MAKER PAPERBOARD Oxygen Saturation 96% 01/09/2018 10:41 AM BOX MAKER PAPERBOARD Inhaled Oxygen Concentration - - Weight 95.7 kg (211 lb) 01/09/2018 10:41 AM BOX MAKER PAPERBOARD Height 175.3 cm (5' 9) 01/09/2018 10:41 AM BOX MAKER PAPERBOARD Body Mass Index 31.16 01/09/2018 10:41 AM BOX MAKER PAPERBOARD documented in this encounter Progress Notes Raghavendra Deras MD - 01/09/2018 10:40 AM CST SUBJECTIVE: Terry Motnero is a 72 year old male who presents to clinic today for the following health issues: Patient with history of spondylolisthesis. He reports intermittent low back pain, which started . Occasionally, he feels an electric shock lasting for seconds located at that same area. He has concerns because his sister due to bone cancer and initially had symptoms of low back pain. Patient takes ibuprofen occasionally. Denies radiating leg pain or numbness. XR LUMBAR SPINE G/E 4 VW 10/06/2015 11:34 AM IMPRESSION: L5-S1 1.0 cm grade 1-2 spondylolisthesis, most likely on the basis of bilateral L5 pars interarticularis defects. The degree of spondylolisthesis is minimally if at all changed with flexion and extension. Mild to moderate degenerative loss of disc height is noted at L5-S1. Disc heights in the remainder of the lumbar spine appear within normal limits with mild anterior spurring noted in the mid lumbar spine. Vertebral body heights appear within normal limits. Patient reports his voice has changed and consistently sounded raspy for the past year. Denies difficulties swallowing. Former smoker. Esophageal reflux is well controlled with Prilosec. History of allergic rhinitis. Problem list and histories reviewed & adjusted, [...] this visit by clinical staff Tobacco Allergies Med Hx Surg Hx Fam Hx Soc Hx Reviewed and updated as needed this visit by Provider ROS: ENT/MOUTH: as noted above MUSCULOSKELETAL: as noted above NEURO: as noted above This document serves as a record of the services and decisions personally performed and made by Raghavendra Deras MD. It was created on his behalf by Radha Mobley, a trained medical insurance coder. The creation of this document is based on the provider's statements to the medical insurance coder. Radha Mobley 10:51 AM January 09, 2018 OBJECTIVE: BP 124/74 (BP Location: Right arm, Patient Position: Chair, Cuff Size: Adult Regular) Pulse 69 Temp 97.9 ??F (36.6 ??C) (Oral) Resp 16 Ht 1.753 m (5' 9) Wt 95.7 kg (211 lb) SpO2 96% BMI 31.16 kg/m2 Body mass index is 31.16 kg/(m^2). GENERAL: healthy, alert and no distress MS: normal back exam: no tenderness to palpation, negative straight leg raise X-ray lumbar spine ordered and interpreted in the office today. X-ray shows: Mild degenerative changes, spondylolisthesis stable from prior. Radiology read pending. ASSESSMENT/PLAN: 1. Midline low back pain without sciatica, unspecified chronicity Conservative treatment for non-specific low back pain without radiculopathy. Discussed active recovery - maintain routine activity with attention to correct posture; stop aggravating activities. [id number] pain medications for short term symptom control - NSAIDs or tylenol. Cold packs or heat based upon your preference. Return if not improving or if new symptoms of radiculopathy past knee or fever. Consider PT with [facility]. - XR Lumbar Spine 2/3 Views; Future - [facility] PT, HAND, AND CHIROPRACTIC REFERRAL; Future 2. Hoarseness of voice Persistent voice hoarseness possibly from postnasal drainage/allergy or potentially from reflux. As this has not changed to recommend ENT for laryngoscope. - OTOLARYNGOLOGY REFERRAL The information in this document, created by the medical insurance coder for me, accurately reflects the services I personally performed and the decisions made by me. I have reviewed and approved this document for accuracy prior to leaving the patient care area. January 09, 2018 11:33 AM Raghavendra Deras MD [facility] MAKER PAPERBOARD documented in this encounter Plan of Treatment Scheduled Referrals Name Type Priority Associated Diagnoses Order S chedule [facility] PT, HAND, AND Referral Routine Midline low back pain 1 Occurrences CHIROPRACTIC REFERRAL without sciatica, s tarting 01/09/2018 unspecified until 9 chronicity OTOLARYNGOLOGY REFERRAL Referral Routine Hoarseness of voi ce Ordered: 01/09/2018 documented as of this encounter Results XR Lumbar Spine 2/3 Views (01/09/2018 11:11 AM BOX MAKER PAPERBOARD) Anatomical Region Laterality Modality Spine, T-spine, L-spine, Abdomen/Pelvis Computed Radiography Specimen (Source) Anatomical Location Collection Method / Collectio n Time Received Time / Laterality Volume Impressions 01/10/2018 7:37 AM BOX MAKER PAPERBOARD IMPRESSION: Degenerative change, stable in comparison with 2016. AWAIS PRATHER MD Narrative 01/10/2018 7:37 AM BOX MAKER PAPERBOARD XR LUMBAR SPINE 2-3 VIEWS 01/09/2018 11:11 [...] low back pain without sciatica, unspecified chronicity - Primary Hoarseness of voice Dysphonia Midline low back pain without sciatica, unspecified chronicity documented in this encounter Care Teams Punch Machine Hand Relationship Specialty Start Date End Date Raghavendra Deras MD PCP - General Family Practice 10/07/13 Raghavendra Deras MD PCP - Assigned PCP 01/23/16 04/09/18 Raghavendra Deras MD Assigned PCP 01/23/16 05/14/21 documented as of this encounter
--- OUTSIDE RECORDS SUMMARY | 2021-11-04 10:36 | XMS_ITS | Encounter Summary ---
:1945 Author Organization [place] Address [facility] 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 Mryiam Barrett RN, BSN Telephone Encounter - Wade Wiggins - 11/05/2015 2:17 PM CDT Pending Prescriptions: Disp Refills simvastatin (ZOCOR) 40 MG tablet 45 tab*4 Sig: Take 0.5 tablets (20 mg) by mouth At Bedtime omeprazole (PRILOSEC) 40 MG capsule 90 cap*4 Sig: Take 1 capsule (40 mg) by mouth daily Take 30-60 minutes before a meal. hydrochlorothiazide (HYDRODIURIL) 25 MG t*90 tab*4 Sig: Take 1 tablet (25 mg) by mouth daily doxazosin (CARDURA) 8 MG tablet 45 tab*4 Sig: Take 0.5 tablets (4 mg) by mouth At Bedtime Simvastatin Last Written Prescription Date: 10/01/2014 Last Fill Quantity: 45, # refills: 4 Last Office Visit with [facility] or Health prescribing provider: 03/11/2015 CHOL 150 11/13/2013 HDL 58 11/13/2013 LDL 70 11/13/2013 TRIG 111 11/13/2013 CHOLHDLRATIO 2.6 11/13/2013 Omeprazole Last Written Prescription Date: 10/01/2014 Last Fill Quantity: 90, # refills: 4 Last Office Visit with [facility], [facility] or Health prescribing provider: Hydrochlorothiazide Last Written Prescription Date: 10/01/2014 Last Fill Quantity: 90, # refills: 4 Last Office Visit with [facility], [facility] or Health prescribing provider: POTASSIUM Date Value Ref Range Status 10/01/2014 3.5 3.4 - 5.3 mmol/L Final CREATININE Date Value Ref Range Status 10/01/2014 0.92 0.66 - 1.25 mg/dL Final BP Readings from Last 3 Encounters: 10/06/15 118/68 04/05/15 115/80 03/11/15 151/88 Doxazosin Last Written Prescription Date: 10/01/2014 Last Fill Quantity: 45, # refills: 4 Last Office Visit with [facility], [facility] or Health prescribing provider: Future Office Visit: BP Readings from Last 3 Encounters: 10/06/15 118/68 04/05/15 115/80 03/11/15 151/88 Wade Wiggins XRT documented in this encounter Plan of Treatment Not on filedocumented as of this encounter Visit Diagnoses Diagnosis Hyperlipidemia LDL goal <130 - Primary Other and unspecified hyperlipidemia History of peptic ulcer disease Personal history of peptic ulcer disease Hypertension goal BP (blood pressure) < 140/90 Unspecified essential hypertension documented in this encounter Care Teams Ditch Repairer Relationship Specialty Start Date End Date Raghavendra Deras MD PCP - General Family Practice 10/07/13 documented as of this encounter
--- OUTSIDE RECORDS SUMMARY | 2021-11-04 10:36 | XMS_ITS | Encounter Summary ---
:1945 Author Organization [place] Address [facility] [address] Care Team Providers Name Role Phone Raghavendra Deras MD Primary Care Provider Unavailable Reason for Visit Reason Onset Date Comments URI 04/07/2015 Encounter Details Date Type Department Care Team Description 04/07/[address] 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 If develops fever, worsening cough, SOB or other respiratory symptoms be seen in clinic. Pt expressed understanding and acceptance of the plan. Pt had no further questions at this time. Advised can call back to clinic at any time with concerns. Janny Rodriguez, RN ER ROLLER documented in this encounter Plan of Treatment Not on filedocumented as of this encounter Visit Diagnoses Not on filedocumented in this encounter Care Teams Cook House Supervisor Relationship Specialty Start Date End Date Raghavendra Deras MD PCP - General Family Practice 10/07/13 documented as of this encounter
--- OUTSIDE RECORDS SUMMARY | 2021-11-04 10:36 | XMS_ITS | Encounter Summary ---
:1945 Author Organization [place] Address [address] [facility] [place] [address] Care Team Providers Name Role Phone Raghavendra Deras MD Primary Care Provider Unavailable Reason for Visit Reason Comments Wellness Visit Encounter Details Date Type Department Care Team Description 01/12/2016 Office Visit [facility] Raghavendra Deras Encounter for routine adult health examination without abnormal findings (Primary Dx); Clinic Candy Alan MD Hypertension goal BP (blood pressure) < 140/90; [id number] [facility] Chronic cough; [place], [place] Benign non-nod ular prostatic hyperplasia with lower urinary tract symptoms; [id number] History of peptic ulcer dise ase; [phone] MORENITA (obstructiv e sleep apnea); Advanced direct julian, counseling/discussion; Hyperlipidemia LDL goal <130; Seasonal allerg ic rhinitis, unspecified allergic rhinitis trigger; Gastroesophagea l reflux disease, esophagitis presence not specified; Need for hepati tis C screening test; Screening for p rostate cancer Social History Tobacco Use Types Packs/Day Years [...] at Date Recorded Male 01/15/2018 11:39 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 documented as of this encounter Last Filed Vital Signs Vital Sign Reading Time Taken Comments Blood Pressure 120/68 01/12/2016 9:38 AM HVAC FIELD SERVICE TECHNICIAN Pulse 67 01/12/2016 9:38 AM HVAC FIELD SERVICE TECHNICIAN Temperature 36.6 ??C (97.9 ??F) 01/12/2016 9:38 AM HVAC FIELD SERVICE TECHNICIAN Respiratory Rate - - Oxygen Saturation - - Inhaled Oxygen Concentration - - Weight 96.4 kg (212 lb 8 oz) 01/12/2016 9:38 AM HVAC FIELD SERVICE TECHNICIAN Height 175.3 cm (5' 9) 01/12/2016 9:38 AM HVAC FIELD SERVICE TECHNICIAN Body Mass Index 31.38 01/12/2016 9:38 AM HVAC FIELD SERVICE TECHNICIAN documented in this encounter Patient Instructions Patient InstructionsFatemeh Camacho CMA - 01/12/2016 9:37 AM CST Preventive Health Recommendations: Male Ages 65 and over Yearly exam: ?? See your health care provider every year in order to o Review health changes. o Discuss preventive care. o Review your medicines if your doctor has [...] Prevnar (PCV 13). ??? Talk to your doctor about a shingles vaccine. ??? Talk to your doctor about the hepatitis B vaccine. Nutrition: ??? Eat at least 5 servings of fruits and vegetables each day. ??? Eat whole-grain bread, whole-wheat pasta and brown rice instead of white grains and rice. ??? Talk to your doctor about Calcium and Vitamin D. Lifestyle ??? Exercise [...] such as glaucoma, macular degeneration and cataracts. FIELD SERVICE TECHNICIAN documented in this encounter Progress Notes Raghavendra Deras MD - 01/12/2016 9:37 AM CST SUBJECTIVE: Terry Montero is a 70 year old male who presents for Preventive Visit. Are you in the first 12 months of your Medicare Part B coverage? No Healthy Habits: Answers for HPI/ROS submitted by the patient on 01/12/2016 Annual Exam: Getting at least 3 servings of Calcium per day:: Yes Bi-annual eye exam:: Yes Dental care twice a year:: Yes Sleep apnea or symptoms of sleep apnea:: Excessive snoring Diet:: Regular (no restrictions) Frequency of exercise:: 2-3 days/week Duration of exercise:: 30-45 minutes Taking medications regularly:: Yes Medication side effects:: Not applicable Additional concerns today:: YES PHQ-2 Depressed: Not at all, Not at all PHQ-2 Score: 0 COGNITIVE SCREEN 1) Repeat 3 items (Banana, [place], Chair) 2) Clock draw: NORMAL 3) 3 item recall: Recalls 2 objects Results: NORMAL clock, 1-2 items recalled: COGNITIVE IMPAIRMENT LESS LIKELY Mini-CogTM Copyright Murali Lenz. Licensed by the author for use in [place] [employer]; reprintedwith permission ([email or web address]). All rights reserved. Patient with history of GERD with previous peptic ulcer disease and bleeding ulcer. Stable on PPI. History of hypertension currently well controlled. Denies shortness or breath, chest pain, headache,vision change, or lower extremity edema. Having very frequent urination during the day and patient on diuretic. History of BPH with LUTS stable on doxazosin. History of hyperlipidemia on statin, denies myalgias. Patient with ongoing cough intermittently that seems seasonal. Has had allergic rhinitis in the past. All Histories reviewed and updated in [facility] as appropriate. Social History Substance Use Topics ??? Smoking status: Former Smoker -- 0.50 packs/day for 20 years Types: Cigarettes Quit date: 02/06/1984 ??? Smokeless tobacco: Never Used ??? Alcohol Use: 1.0 oz/week Comment: occasional The patient does not drink >3 drinks per day nor >7 drinks per week. Today's PHQ-2 Score: PHQ-2 (??1999 Pfizer) 01/12/2016 04/13/2014 Q1: Little interest or pleasure in doing things - - Q2: Feeling down, depressed or hopeless - - PHQ-2 Score - - Little interest or pleasure in doing things Not at all Not at all Feeling down, depressed or hopeless Not at all Not at all PHQ-2 Score 0 0 Do you feel safe in your environment - Yes Do you have a Health Care Directive?: No: Advance care planning reviewed with patient; information given to patient to review. Current providers sharing in care for this patient include: Patient Care Team: Raghavendra Deras MD as PCP - General (Family Practice) ?? Hearing impairment: No ?? Ability to successfully perform activities of daily living: Yes, no assistance needed ?? Fall risk: Fallen 2 or more times in the past year?: No Any fall with injury in the past year?: No ?? Home safety: none identified The following health maintenance items are reviewed in [facility] and correct as of today: Health Maintenance Topic Date Due ??? HEPATITIS C SCREENING 04/23/1963 ??? LIPID MONITORING Q1 YEAR( NO INBASKET) 11/13/2014 ??? FALL RISK ASSESSMENT 10/02/2015 ??? COLONOSCOPY Q5 YR INBAInfobloxET MESSAGE 06/05/2018 ??? TETANUS IMMUNIZATION (SYSTEM ASSIGNED) 10/19/2018 ??? ADVANCE DIRECTIVE PLANNING Q5 YRS (NO INBASKET) 01/11/2021 ??? PNEUMOCOCCAL Completed ??? AORTIC ANEURYSM SCREENING (SYSTEM ASSIGNED) Completed ROS: Constitutional, HEENT, cardiovascular, pulmonary, gi and gu systems are negative, except as otherwise noted. Problem list, Medication list, Allergies, and Medical/Social/Surgical histories reviewed in [facility] andupdated as appropriate. OBJECTIVE: BP 120/68 mmHg Pulse 67 Temp(Src) 97.9 ??F (36.6 ??C) (Oral) Ht 5' 9 (1.753 m) Wt 212 lb 8 oz (96.389 kg) BMI 31.37 kg/m2 Estimated body mass index is 31.37 kg/(m^2) as calculated from the following: Height as of this encounter: 5' 9 (1.753 m). Weight as of this encounter: 212 lb 8 oz (96.389 kg). EXAM: GENERAL: healthy, alert and no distress EYES: [...] without lesions or urethral discharge, no hernia RECTAL: normal sphincter tone, no rectal masses, prostate 2+ enlarged, smooth, nontender without nodules or masses MS: no gross musculoskeletal defects noted, no edema SKIN: no suspicious lesions or rashes NEURO: Normal strength and tone, mentation intact and speech normal PSYCH: mentation appears normal, affect normal/bright ASSESSMENT / PLAN: 1. Encounter for routine adult health examination without abnormal findings 2. Hypertension goal BP (blood pressure) < 140/90 Discussed stopping HCTZ with urinary symptoms and consider other medication. Had swelling with amlodipine, was tried on lisinopril in the past but stopped possibly secondary to cough but he is unsure. Discussed trial of losartan along with doxazosin for blood pressure. Recheck blood pressure in 2 weeks or check at home. - doxazosin (CARDURA) 8 MG tablet; Take 0.5 tablets (4 mg) by mouth At Bedtime Dispense: 45 tablet; Refill: 3 - Basic metabolic panel - losartan (COZAAR) 25 MG tablet; Take 1 tablet (25 mg) by mouth daily Dispense: 90 tablet; Refill: 3 3. Chronic cough Discussed common causes of chronic cough including postnasal drip, allergies, asthma, laryngopharyngeal reflux, as well as other potential causes. Discussed using OTC cetirizine and fluticasone nasal spray initially, recheck in 1 month if not improving. 4. Benign non-nodular prostatic hyperplasia with lower urinary tract symptoms - UA reflex to Microscopic and Culture 5. History of peptic ulcer disease - omeprazole (PRILOSEC) 40 MG capsule; Take 1 capsule (40 mg) by mouth daily Take 30-60 minutes before a meal. Dispense: 90 capsule; Refill: 3 6. MORENITA (obstructive sleep apnea) 7. Advanced directives, counseling/discussion 8. Hyperlipidemia LDL goal <130 - simvastatin (ZOCOR) 40 MG tablet; Take 0.5 tablets (20 mg) by mouth At Bedtime Dispense: 45 tablet; Refill: 3 - Lipid panel reflex to direct LDL 9. Seasonal allergic rhinitis, unspecified allergic rhinitis trigger - fluticasone (FLONASE) 50 MCG/ACT spray; [place] 1-2 sprays into both nostrils daily Dispense: 1 Bottle; Refill: 3 10. Gastroesophageal reflux disease, esophagitis presence not specified 11. Need for hepatitis C screening test - Hepatitis C antibody 12. Screening for prostate cancer Discussed risk and benefit of prostate cancer screening with PSA testing including benefit of early detection and risk of unnecessary biopsy and patient anxiety and complications of treatment on cancerthat may not have affected patient's health. Patient desires PSA testing at this time. Continue annual digital rectal exam for screening. - Prostate spec antigen screen End of Life Planning: Patient currently has an advanced directive: No. I have verified the patient's ablity to prepare an advanced directive/make health care decisions. Literature was provided to assist patient in preparingan advanced directive. COUNSELING: Reviewed preventive health counseling, as reflected in patient instructions Special attention given to: Regular exercise Healthy diet/nutrition Colon cancer screening Prostate cancer screening Discussed risk and benefit of prostate cancer screening with PSA testing including benefit of early detection and risk of unnecessary biopsy and patient anxiety and complications of treatment on cancerthat may not have affected patient's health. Patient desires PSA testing at this time. Continue annual digital rectal exam for screening. Estimated body mass index is 31.37 kg/(m^2) as calculated from the following: Height as of this encounter: 5' 9 (1.753 m). Weight as of this encounter: 212 lb 8 oz (96.389 kg). Weight management plan: Discussed healthy diet and exercise guidelines and patient will follow up in12 months in clinic to re-evaluate. reports that he quit smoking about 31 years ago. His smoking use included Cigarettes. He has a 10 pack-year smoking history. He has never used smokeless tobacco. Appropriate preventive [...] USDA's MyPlate ASA Prophylaxis Lung CA Screening Raghavendra Deras MD [facility] FIELD SERVICE TECHNICIAN documented in this encounter Nursing Notes Fatemeh Camacho CMA - 01/12/2016 9:42 AM CST Chief Complaint Patient presents with ??? Wellness Visit Initial BP 120/68 mmHg Pulse 67 Temp(Src) 97.9 ??F (36.6 ??C) (Oral) Ht 5' 9 (1.753 m) Wt 212 lb 8 oz (96.389 kg) BMI 31.37 kg/m2 Estimated body mass index is 31.37 kg/(m^2) as calculated from the following: Height as of this encounter: 5' 9 (1.753 m). Weight as of this encounter: 212 lb 8 oz (96.389 kg). Fatemeh Camacho CMA Health Maintenance- Reviewed. FIELD SERVICE TECHNICIAN documented in this encounter Plan of Treatment Not on filedocumented as of this encounter Procedures Procedure Name Priority Date/Time Associated Diagnosis Comme nts URINE MICROSCOPIC Routine 01/12/2016 10:16 Encounter for [place] ne Results for this AM HVAC FIELD SERVICE TECHNICIAN adult health procedure are i n examination without the resu lts abnormal findings section. UA MACROSCOPIC WITH Routine 01/12/2016 10:16 Benign non-nodula r Results for this REFLEX TO AM HVAC FIELD SERVICE TECHNICIAN prostatic hyperplasia proced ure are in MICROSCOPIC AND with lower urinary the re sults CULTURE tract symptoms section. PROSTATE SPECIFIC Routine 01/12/2016 10:16 Screening for prost ate Results for this ANTIGEN SCREEN AM HVAC FIELD SERVICE TECHNICIAN cancer procedure are in the results section. LIPID REFLEX TO Routine 01/12/2016 10:16 Hyperlipidemia LDL Re sults for this DIRECT LDL PANEL AM HVAC FIELD SERVICE TECHNICIAN goal <130 procedure a re in the results section. HEPATITIS C ANTIBODY Routine 01/12/2016 10:16 Need for hepatit is C Results for this AM HVAC FIELD SERVICE TECHNICIAN screening test procedure are in the results section. BASIC METABOLIC Routine 01/12/2016 10:16 Hypertension goal BP Results for this PANEL AM HVAC FIELD SERVICE TECHNICIAN (blood pressure) < procedure are in 140/90 the results section. documented in this encounter Results (ABNORMAL) Urine Microscopic (01/12/2016 10:16 AM HVAC FIELD SERVICE TECHNICIAN) [facility] Method Time Signature WBC Urine O - 2 0 - 2 [place] /HPF [facility] RBC Urine 2-5 (A) 0 - 2 [place] /HPF [facility] Squamous Few FEW /LPF [place] Epithelial /LPF [facility] Urine [place] Bacteria Urine Few (A) NEG /HPF [facility] Mucous Urine Present (A) NEG /LPF [facility] Specimen Anatomical Collection Method Collection Time Receive d Time (Source) Location / / Volume Laterality 01/12/2016 10:16 01/12/2016 AM HVAC FIELD SERVICE TECHNICIAN 10:21 AM HVAC FIELD SERVICE TECHNICIAN Raghavendra Deras MD LAB - URINE ORDERABLES Performing Organization Address City/State/ZIP Code Phon e Number [facility] [id number] [place] [address] (ABNORMAL) UA reflex to Microscopic and Culture (01/12/2016 10:16 AM HVAC FIELD SERVICE TECHNICIAN) [facility] gist Method Time Signature Color Urine Yellow [facility] Appearance Urine Clear [facility] Glucose Urine Negative NEG mg/dL [facility] Bilirubin Urine Negative NEG [facility] Ketones Urine Negative NEG mg/dL [facility] Specific [place] 1.025 1.003 - [place] Urine 1.035 [facility] Blood Urine Trace (A) NEG [facility] pH Urine 7.0 5.0 - 7.0 [place] pH [facility] Protein Albumin Negative NEG mg/dL [place] Urine [facility] Urobilinogen 0.2 0.2 - 1.0 [place] Urine EU/dL [facility] Nitrite Urine Negative NEG [facility] Leukocyte Negative NEG [place] Esterase Urine [facility] Source Midstream [place] Urine [facility] Specimen Anatomical Collection Method Collection Time Receive d Time (Source) Location / / Volume Laterality Urine specimen 01/12/2016 10:16 6 (specimen) AM HVAC FIELD SERVICE TECHNICIAN 10:21 AM HVAC FIELD SERVICE TECHNICIAN Raghavendra Deras MD LAB - URINE ORDERABLES Performing Organization Address City/[facility]/ZIP Code Phon e Number [facility] [id number] [place] [address] Prostate spec antigen screen (01/12/2016 10:16 AM HVAC FIELD SERVICE TECHNICIAN) P athologist Signature PSA 0.64 0 - 4 ug/L [facility] Comment: Assay Method: Chemiluminescence using Siemens Dumont analyzer Specimen Anatomical Collection Method Collection Time Receive d Time (Source) Location / / Volume Laterality Blood specimen 01/12/2016 10:16 6 (specimen) AM HVAC FIELD SERVICE TECHNICIAN 10:21 AM HVAC FIELD SERVICE TECHNICIAN Raghavendra Deras MD LAB - BLOOD ORDERABLES Performing Organization Address City/[facility]/ZIP Code Phon e Number [facility] [address] [place] [address] H[facility] [address] [place] [address], U [phone] Hepatitis C antibody (01/12/2016 10:16 AM HVAC FIELD SERVICE TECHNICIAN) Component Value Ref Test Analysis Performed At [facility] Range Method Time Signature Hepatitis C Nonreactive NR [facility] Antibody Assay performance character istics have not been established for newborns, [place] [facility] infants, and children [facility] Specimen Anatomical Collection Method Collection Time Receive d Time (Source) Location / / Volume Laterality Blood specimen 01/12/2016 10:16 6 (specimen) AM HVAC FIELD SERVICE TECHNICIAN 10:21 AM HVAC FIELD SERVICE TECHNICIAN Raghavendra Deras MD LAB - BLOOD ORDERABLES Performing Organization Address City/State/ZIP Code Phon e Number [facility] [address] [place] [address] [facility] (ABNORMAL) Lipid panel reflex to direct LDL (01/12/2016 10:16 AM HVAC FIELD SERVICE TECHNICIAN) Analysis Performed At [facility] logist Time Signature Cholesterol 154 <200 mg/dL [facility] Triglycerides 182 (H) <150 mg/dL [facility] Comment: Borderline high: ??150-199 mg/dl High: ? 200-499 mg/dl Very high: ? >499 mg/dl HDL Cholesterol 44 >39 mg/dL [place] [facility] LDL Cholesterol Calculated 74 <100 mg/dL [facility] Comment: Desirable: <100 mg/dl Non HDL Cholesterol 110 <130 mg/dL [facility] Specimen Anatomical Collection Method Collection Time Receive d Time (Source) Location / / Volume Laterality Blood specimen 01/12/2016 10:16 6 (specimen) AM HVAC FIELD SERVICE TECHNICIAN 10:21 AM HVAC FIELD SERVICE TECHNICIAN Raghavendra Deras MD LAB - BLOOD ORDERABLES Performing Organization Address City/[facility]/ZIP Code Phon e Number [facility] [address] [place] [address] (ABNORMAL) Basic metabolic panel (01/12/2016 10:16 AM HVAC FIELD SERVICE TECHNICIAN) [facility] gist Method Time Signature Sodium 143 133 - 144 [place] mmol/L [facility] Potassium 3.6 3.4 - 5.3 [place] mmol/L [facility] Chloride 106 94 - 109 [place] mmol/L [facility] Carbon Dioxide 29 20 - 32 [place] mmol/L [facility] Anion Gap 8 3 - 14 [place] mmol/L [facility] Glucose 103 (H) 70 - 99 [place] mg/dL [facility] Urea Nitrogen 20 7 - 30 [place] mg/dL [facility] Creatinine 1.12 0.66 - [place] 1.25 mg/dL [facility] GFR Estimate 65 >60 [place] mL/min/1.7 CLINICS m2 [facility] Comment: Non GFR Calc GFR Estimate If Black 78 >60 mL/min/1.7m2 F [facility] Comment: GFR Calc Calcium 9.2 8.5 - 10.1 mg/dL [place] [facility] ICS [facility] Specimen Anatomical Collection Method Collection Time Receive d Time (Source) Location / / Volume Laterality Blood specimen 01/12/2016 10:16 6 (specimen) AM HVAC FIELD SERVICE TECHNICIAN 10:21 AM HVAC FIELD SERVICE TECHNICIAN Raghavendra Deras MD LAB - BLOOD ORDERABLES Performing Organization Address City/State/ZIP Code Phon e Number [facility] [address] [place] [address] documented in this encounter Visit Diagnoses Diagnosis Encounter for routine adult health exami nation without abnormal findings - Primary Hypertension goal BP (blood pressure) < 140/90 Unspecified essential hypertension Chronic cough Cough Benign non-nodular prostatic hyperplasia with lower urinary tract symptoms History of peptic ulcer disease Personal history of peptic ulcer disease MORENITA (obstructive sleep apnea) Obstructive sleep apnea (adult) (pediatr ic) Advanced directives, counseling/discussi on Other specified counseling Hyperlipidemia LDL goal <130 Other and unspecified hyperlipidemia Seasonal allergic rhinitis, unspecified allergic rhinitis trigger Gastroesophageal reflux disease, esophag itis presence not specified Need for hepatitis C screening test Special screening examination for other specified viral diseases Screening for prostate cancer Special screening for malignant neoplasm of prostate documented in this encounter Care Teams Washcoat Wiper Relationship Specialty Start Date End Date Raghavendra Deras MD PCP - General Family Practice 10/07/13 documented as of this encounter
--- OUTSIDE RECORDS SUMMARY | 2021-11-04 10:36 | XMS_ITS | Encounter Summary ---
:1945 Author Organization [place] Address [facility] [place] [address] Care Team Providers Name Role Phone Raghavendra Deras MD Primary Care Provider Unavailable Raghavendra Deras MD Unavailable Unavailable Raghavendra Deras MD Unavailable Unavailable Reason for Visit Reason Onset Date Comments CT Results 06/01/2016 Encounter Details Date Type Department Care Team Description 06/01/[address] 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 No cause for abdominal symptoms noted, which is reassuring. I would have him take fiber supplement daily to help with possible irritable bowel symptoms. If any blood in stool or black stool or other GI symptoms we could consider repeat colonoscopy. IMPRESSION: 1. Colonic diverticulosis, without convincing evidence for diverticulitis. 2. Mild prostatic enlargement. 3. No definite cause for abdominal pain is identified. Telephone Encounter - Myriam Barrett RN - 06/01/2016 4:25 PM CDT Please advise Myriam Barrett RN, BSN Telephone Encounter - Letitia Muhammad - 06/01/2016 4:22 PM CDT Pt calling to check status of CT results, read pt impression from Dr. Morillo. Pt would like call ormychart message from Dr. Deras to further explain results and treatment plan if any. Pt's Number: [phone] Bhavin Muhammad Insurance Agency Sales Manager 06/01/16 documented in this encounter Plan of Treatment Not on filedocumented as of this encounter Visit Diagnoses Not on filedocumented in this encounter Care Teams Offset Printer Relationship Specialty Start Date End Date Raghavendra Deras MD PCP - General Family Practice 10/07/13 Raghavendra Deras MD PCP - Assigned PCP 01/23/16 04/09/18 Raghavendra Deras MD Assigned PCP 01/23/16 05/14/21 documented as of this encounter
--- OUTSIDE RECORDS SUMMARY | 2021-11-04 10:36 | XMS_ITS | Encounter Summary ---
:1945 Author Organization [place] Address [facility] [place] [address] Care Team Providers Name Role Phone Raghavendra Deras MD Primary Care Provider Unavailable Raghavendra Deras MD Unavailable Unavailable Raghavendra Deras MD Unavailable Unavailable Reason for Visit (Routine) - Closed Specialty Diagnoses / Procedures Referred By Contact Refer red To Contact Radiology / Radiology. Diagnoses Epic Order, sb pt. 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 documented as of this encounter Medications at Time of Discharge Medication Sig Dispensed Refills Start Date End Date fish oil-omega-3 fatty Take 2 capsules (2 90 capsule 0 10/07 acids 1000 MG capsule g) by mouth daily PT IS NOW TAKING 1 TAB PER DAY Multiple Take 1 tablet by 0 Vitamins-Minerals mouth daily (CENTRUM SILVER ULTRA MENS PO) doxazosin (CARDURA) 8 MG Take 0.5 tablets (4 45 tablet 3 11/08/2016 tabletIndications: mg) by mouth At Hypertension goal BP Bedtime (blood pressure) < 140/90 fluticasone (FLONASE) 50 [place] 1-2 sprays 1 Bottle 3 01/1108/05/2018 MCG/ACT sprayIndications: into both nostrils Seasonal allergic daily rhinitis, unspecified allergic rhinitis trigger losartan (COZAAR) 25 MG Take 1 tablet (25 90 tablet 3 01/1101/22/2017 tabletIndications: mg) by mouth daily Hypertension goal BP (blood pressure) < 140/90 omeprazole (PRILOSEC) 40 Take 1 capsule (40 90 capsule 3 08/201511/08/2016 MG capsuleIndications: mg) by mouth daily History of peptic ulcer Take 30-60 minutes disease before a meal. simvastatin (ZOCOR) 40 MG Take 0.5 tablets 45 tablet 3 08/201501/31/2017 tabletIndications: (20 mg) by mouth At Hyperlipidemia LDL goal Bedtime <130 documented as of this encounter Plan of Treatment Not on filedocumented as of this encounter Procedures Procedure Name Priority Date/Time Associated Diagnosis Comme nts CT ABDOMEN PELVIS W Routine 05/26/2016 3:03 PM Abdominal pain, Results for this CONTRAST CDT generalized procedure are i n the results section. ISTAT CREATININE Routine 05/26/2016 2:46 PM Abdominal pain, Re sults for this POCT CDT generalized procedure are i n the results section. documented in this encounter Results CT Abdomen Pelvis w Contrast (05/26/2016 3:03 PM CDT) Anatomical Region Laterality Modality Abdomen/Pelvis, SUBRAD CT BODY, UMP CT ABDOMEN PELVIS Computed Tomography Specimen (Source) Anatomical Location Collection Method / Collectio n Time Received Time / Laterality Volume Impressions 05/26/2016 3:57 PM CDT IMPRESSION: 1. Colonic diverticulosis, without convi ncing evidence for diverticulitis. 2. Mild prostatic enlargement. 3. No definite cause for abdominal pain is identified. TONY MORILLO MD Narrative 05/26/2016 3:[address] ABDOMEN AND PELVIS WITH CONTRAST ?? 05/26/2016 3:03 PM HISTORY: Generalized abdominal pain. TECHNIQUE: 100mL Isovue-370 IV were admi nistered. After contrast administration, volumetric helical secti ons were acquired from the lung bases to the ischial tuberosities. Coronal images were also reconstructed. Radiation dose for this s can was reduced using automated exposure control, adjustment o f the mA and/or kV according to patient size, or iterative reconstruc tion technique. COMPARISON: CT of the abdomen and pelvis performed 05/26/2016. FINDINGS: Colonic diverticulosis, withou t convincing evidence for diverticulitis. No bowel obstruction. Un remarkable appendix. No free fluid in the pelvis. Mild prostatic enla rgement and central calcification. Mild atherosclerotic aort oiliac calcification. The liver, gallbladder, spleen, adrenal glan ds, pancreas, and kidneys are unremarkable. No hydronephrosis. ??The v isualized lung bases are clear. 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 Procedure Note Tony Morillo MD - 05/26/2016Forma tting of this note might be different from the original. CT ABDOMEN AND PELVIS WITH CONTRAST 05/26 3:03 PM HISTORY: Generalized abdominal pain. TECHNIQUE: 100mL Isovue-370 IV were admi nistered. After contrast administration, volumetric helical secti ons were acquired from the lung bases to the ischial tuberosities. Coronal images were also reconstructed. Radiation dose for this s can was reduced using automated exposure control, adjustment o f the mA and/or kV according to patient size, or iterative reconstruc tion technique. COMPARISON: CT of the abdomen and pelvis performed 05/26/2016. FINDINGS: Colonic diverticulosis, withou t convincing evidence for diverticulitis. No bowel obstruction. Un remarkable appendix. No free fluid in the pelvis. Mild prostatic enla rgement and central calcification. Mild atherosclerotic aort oiliac calcification. The liver, gallbladder, spleen, adrenal glan ds, pancreas, and kidneys are unremarkable. No hydronephrosis. The vis ualized lung bases are clear. 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 IMPRESSION: 1. Colonic diverticulosis, without convi ncing evidence for diverticulitis. 2. Mild prostatic enlargement. 3. No definite cause for abdominal pain is identified. TONY MORILLO MD Raghavendra Deras MD IMG CT ORDERABLES Creatinine POCT (05/26/2016 2:46 PM CDT) P athologist Signature Creatinine 1.0 0.66 - POINT OF CARE 1.25 mg/dL TEST, HANDHELD METER GFR Estimate 74 >60 POINT OF CARE mL/min/1.7 TEST, HANDHELD m2 METER GFR Estimate If 89 >60 POINT OF CARE Black mL/min/1.7 TEST, HANDHELD m2 METER Specimen Anatomical Collection Method Collection Time Receive d Time (Source) Location / / Volume Laterality 05/26/2016 2:46 PM 7 2:50 CDT PM CDT Raghavendra Deras MD LAB - BEAKER POCT Performing Organization Address City/State/ZIP Code Phon e Number [place] POINT OF CARE TEST, HANDHELD METER POINT OF CARE TEST, HANDHELD METER documented in this encounter Visit Diagnoses Diagnosis Abdominal pain, generalized documented in this encounter Administered Medications Inactive Administered Medications - up to 3 most recent administrations Medication Order MAR Action Action Date Dose Rate Site 0.9% sodium chloride BOLUS New Bag 05/26/2016 2:46 PM CDT 65 mLs Intravenous, 1,000 mL, ONCE, On Sun05/26/16 at 1500, For 1 dose iopamidol (ISOVUE-370) solution 500 mL Given 05/26/2016 2:46 PM CDT 100 mLs 500 mL, Intravenous, ONCE, On Sun05/26/16 at 1500, For 1 dose documented in this encounter Care Teams Project Buyer Relationship Specialty Start Date End Date Raghavendra Deras MD PCP - General Family Practice 10/07/13 Raghavendra Deras MD PCP - Assigned PCP 01/23/16 04/09/18 Raghavendra Deras MD Assigned PCP 01/23/16 05/14/21 documented as of this encounter
--- OUTSIDE RECORDS SUMMARY | 2021-11-04 10:36 | XMS_ITS | Encounter Summary ---
:1945 Author Organization [place] Address [facility] 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 Pulse today 83. meds reviewed. Pt states feeling good. Energy level is good. Pt to record home readings over the weekend and come in again early next week for nurseonly check. Pt agreed. Phoenix Dubois CMA IRATORY DIRECTOR documented in this encounter Plan of Treatment Not on filedocumented as of this encounter Visit Diagnoses Diagnosis BP check - Primary Screening for hypertension documented in this encounter Care Teams Veterans Rehabilitation Counselor Relationship Specialty Start Date End Date Raghavendra Deras MD PCP - General Family Practice 10/07/13 Raghavendra Deras MD PCP - Assigned PCP 01/23/16 04/09/18 Raghavendra Deras MD Assigned PCP 01/23/16 05/14/21 documented as of this encounter
--- OUTSIDE RECORDS SUMMARY | 2021-11-04 10:36 | XMS_ITS | Encounter Summary ---
:1945 Author Organization [place] Address [facility] [place] [address] Care Team Providers Name Role Phone Raghavendra Deras MD Primary Care Provider Unavailable Raghavendra Deras MD Unavailable Unavailable Raghavendra Deras MD Unavailable Unavailable Reason for Visit Reason Onset Date Comments Nurse Advice Line 03/23/2016 Encounter Details Date Type Department Care Team Description 03/23/[address] 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 Per DR Deras this might not be from the medication but could be viral or seasonal due to weather. Recommends pt continue for a couple more months and if still having the symptoms or if it gets worse he will need to follow up in the clinic. Pt informed Pt expressed understanding and acceptance of the plan. Pt had no further questions at this time. Advised can call back to clinic at any time with concerns. Myriam Barrett RN, BSN EILLANCE OPERATOR Telephone Encounter - Raghavendra Deras MD - 03/24/2016 11:08 AM CST Hydrochlorothiazide was stopped as this theoretically could have worsened urinary frequency issues. If he has not noticed a change in urinary habits then we could have him go back on that. BP Readings from Last 1 Encounters: 01/12/16 120/68 EILLANCE OPERATOR Telephone Encounter - Myriam Barrett RN - 03/23/2016 4:28 PM CST Pt calling with concerns about voice hoarseness as a side effect from his losartan. He is wondering if he should stop this medication and go back to the HCTZ but states that he read the hoarseness could be a side effect from that as well. He is going on vacation next week and is wondering if she should continue with losartan as he needs a refill or change. Please advise Myriam Barrett RN, BSN EILLANCE OPERATOR documented in this encounter Plan of Treatment Not on filedocumented as of this encounter Visit Diagnoses Diagnosis Hypertension goal BP (blood pressure) < 140/90 Unspecified essential hypertension documented in this encounter Care Teams Flavor Tank Tender Relationship Specialty Start Date End Date Raghavendra Deras MD PCP - General Family Practice 10/07/13 Raghavendra Deras MD PCP - Assigned PCP 01/23/16 04/09/18 Raghavendra Deras MD Assigned PCP 01/23/16 05/14/21 documented as of this encounter
--- OUTSIDE RECORDS SUMMARY | 2021-11-04 10:36 | XMS_ITS | Encounter Summary ---
:1945 Author Organization [place] Address [facility] 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 Informed patient that he should be see in the ER with that severe of abdominal pain and severe diarrhea as the clinic level doesn't have the capability of doing advanced imaging ifneeded. Pt expressed understanding and acceptance of the plan. Pt had no further questions at this time. Advised can call back to clinic at any time with concerns. Myriam Barrett RN, BSN NSION ASSOCIATE documented in this encounter Plan of Treatment Not on filedocumented as of this encounter Visit Diagnoses Not on filedocumented in this encounter Care Teams Project Asst Relationship Specialty Start Date End Date Raghavendra Deras MD PCP - General Family Practice 10/07/13 Raghavendra Deras MD PCP - Assigned PCP 01/23/16 04/09/18 Raghavendra Deras MD Assigned PCP 01/23/16 05/14/21 documented as of this encounter
--- OUTSIDE RECORDS SUMMARY | 2021-11-04 10:36 | XMS_ITS | Encounter Summary ---
:1945 Author Organization [place] Address [facility] 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 Myriam Barrett RN, BSN Telephone Encounter - Wade Wiggins - 11/08/2016 7:05 AM CDT Pending Prescriptions: Disp Refills doxazosin (CARDURA) 8 MG tablet 45 tab*3 Sig: Take 0.5 tablets (4 mg) by mouth At Bedtime omeprazole (PRILOSEC) 40 MG capsule 90 cap*3 Sig: Take 1 capsule (40 mg) by mouth daily Take 30-60 minutes before a meal. Doxazosin Last Written Prescription Date: 01/12/2016 Last Fill Quantity: 45, # refills: 3 Last Office Visit with [facility], [facility] or [facility] prescribing provider: 11/01/2016 Potassium Date Value Ref Range Status 01/12/2016 3.6 3.4 - 5.3 mmol/L Final Creatinine Date Value Ref Range Status 01/12/2016 1.12 0.66 - 1.25 mg/dL Final BP Readings from Last 3 Encounters: 11/01/16 120/72 05/22/16 120/70 04/20/16 130/80 Omeprazole Last Written Prescription Date: 01/12/2016 Last Fill Quantity: 90, # refills: 3 Last Office Visit with [facility] or [facility] prescribing provider: Wade Wiggins XRT documented in this encounter Plan of Treatment Not on filedocumented as of this encounter Visit Diagnoses Diagnosis Hypertension goal BP (blood pressure) < 140/90 Unspecified essential hypertension History of peptic ulcer disease Personal history of peptic ulcer disease documented in this encounter Care Teams Scroll Machine Operator Relationship Specialty Start Date End Date Raghavendra Deras MD PCP - General Family Practice 10/07/13 Raghavendra Deras MD PCP - Assigned PCP 01/23/16 04/09/18 Raghavendra Deras MD Assigned PCP 01/23/16 05/14/21 documented as of this encounter
--- OUTSIDE RECORDS SUMMARY | 2021-11-04 10:36 | XMS_ITS | Encounter Summary ---
:1945 Author Organization [place] Address [address] 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 as of 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 encounter Last Filed Vital Signs Vital Sign Reading Time Taken Comments Blood Pressure 120/70 05/22/2016 11:14 AM CDT Pulse 68 05/22/2016 11:14 AM CDT Temperature 36.8 ??C (98.3 ??F) 05/22/2016 11:14 AM CDT Respiratory Rate - - Oxygen Saturation 96% 05/22/2016 11:14 AM CDT Inhaled Oxygen Concentration - - Weight 93.7 kg (206 lb 9.6 oz) 05/22/2016 11:14 AM CDT Height 175.3 cm (5' 9) 05/22/2016 11:14 AM CDT Body Mass Index 30.51 05/22/2016 11:14 AM CDT documented in this encounter Progress Notes Raghavendra Deras MD - 05/22/2016 11:15 AM CDT SUBJECTIVE: Terry Montero is a 71 year old male who presents to clinic today for the following health issues: Patient presents with: RECHECK: abdominal pain/discomfort Patient here for follow up of abdominal issues. Continues to have lower abdominal pain primarily in the left lower quadrant. This is relieved somewhat with bowel movements at times. Denies worsening pain with meals. No alleviating factors. Denies fever, sweats, or chills. Denies urinary symptoms. No he matochezia or melena. No previous similar abdominal pain. See previous notes for further detail. Discussed further imaging if not improving with ongoing abdominal pain. ROS: CONSTITUTIONAL: no fever or unexpected weight loss GI: As noted above OBJECTIVE: BP 120/70 (BP Location: Right arm, Patient Position: Chair, Cuff Size: Adult Large) Pulse 68 Temp 98.3 ??F (36.8 ??C) (Oral) Ht 5' 9 (1.753 m) Wt 206 lb 9.6 oz (93.7 kg) SpO2 96% BMI 30.51kg/m2Body mass index is 30.51 kg/(m^2). GENERAL APPEARANCE: healthy, alert and no distress ABDOMEN: soft, nontender, without hepatosplenomegaly or masses and bowel sounds normal ASSESSMENT/PLAN: 1. Abdominal pain, generalized Recommend imaging with ongoing abdominal pain with unclear etiology. Possibly secondary to irritablebowel but would need to rule out structural cause and consider repeat colonoscopy if ongoing pain. - CT Abdomen Pelvis w Contrast; Future - UA reflex to Microscopic and Culture Raghavendra Deras MD [facility] documented in this encounter Nursing Notes Ivone Burrell - 05/22/2016 11:15 AM CDT Chief Complaint Patient presents with ??? RECHECK abdominal pain/discomfort Initial BP 120/70 (BP Location: Right arm, Patient Position: Chair, Cuff Size: Adult Large) Pulse 68 Temp 98.3 ??F (36.8 ??C) (Oral) Ht 5' 9 (1.753 m) Wt 206 lb 9.6 oz (93.7 kg) SpO2 96% BMI 30.51 kg/m2 Estimated body mass index is 30.51 kg/(m^2) as calculated from the following: Height as of this encounter: 5' 9 (1.753 m). Weight as of this encounter: 206 lb 9.6 oz (93.7 kg). Medication Reconciliation: CELESTINO Adamson documented in this encounter Plan of Treatment Not on filedocumented as of this encounter Procedures Procedure Name Priority Date/Time Associated Diagnosis Comme nts UA MACROSCOPIC WITH Routine 05/22/2016 11:55 Abdominal pain, R esults for this REFLEX TO AM CDT generalized procedure are i n MICROSCOPIC AND the results CULTURE section. documented in this encounter Results CT [...] MD Raghavendra Deras MD IMG CT ORDERABLES UA reflex to Microscopic and Culture (05/22/2016 11:55 AM CDT) [facility] Method Time Signature Color Urine Yellow [facility] Appearance Urine Clear [facility] Glucose Urine Negative NEG mg/dL [facility] Bilirubin Urine Negative NEG [facility] Ketones Urine Negative NEG mg/dL [facility] Specific [place] 1.015 1.003 - [place] Urine 1.035 [facility] Blood Urine Negative NEG [facility] pH Urine 5.5 5.0 - 7.0 [place] pH [facility] Protein Albumin Negative NEG mg/dL [facility] Urobilinogen 0.2 0.2 - 1.0 [place] Urine EU/dL [facility] Nitrite Urine Negative NEG [facility] Leukocyte Negative NEG [place] Esterase Urine [facility] Source Midstream [place] Urine [facility] Specimen Anatomical Collection Method Collection Time Receive d Time (Source) Location / / Volume Laterality Urine specimen 05/22/2016 11:55 7 (specimen) AM CDT 12:00 PM CDT Raghavendra Deras MD LAB - URINE ORDERABLES Performing Organization Address City/State/ZIP Code Phon e Number [facility] [id number] [place] [address] documented in this encounter Visit Diagnoses Diagnosis Abdominal pain, generalized - Primary Abdominal pain, generalized documented in this encounter Care Teams Director Of Institutional Giving Relationship Specialty Start Date End Date Raghavendra Deras MD PCP - General Family Practice 10/07/13 Raghavendra Deras MD PCP - Assigned PCP 01/23/16 04/09/18 Raghavendra Deras MD Assigned PCP 01/23/16 05/14/21 documented as of this encounter
--- OUTSIDE RECORDS SUMMARY | 2021-11-04 10:36 | XMS_ITS | Encounter Summary ---
:1945 Author Organization [place] Address [facility] 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 Janny Rodriguez RN documented in this encounter Plan of Treatment Not on filedocumented as of this encounter Visit Diagnoses Diagnosis History of peptic ulcer disease Personal history of peptic ulcer disease Hypertension goal BP (blood pressure) < 140/90 Unspecified essential hypertension documented in this encounter Care Teams Human Resources Coordinator Relationship Specialty Start Date End Date Raghavendra Deras MD PCP - General Family Practice 10/07/13 Raghavendra Deras MD PCP - Assigned PCP 01/23/16 04/09/18 Raghavendra Deras MD Assigned PCP 01/23/16 05/14/21 documented as of this encounter
--- OUTSIDE RECORDS SUMMARY | 2021-11-04 10:36 | XMS_ITS | Encounter Summary ---
:1945 Author Organization [place] Address [address] [facility] 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 Today it's been watery diarrhea almost every hour Pt has been doing water since last night. Advised clear liquids for the next 12-24 hours, avoid anything red. Then advance diet as tolerated dry toast, crackers, and BRAT diet. Progress to regular diet as tolerated. No dairy for 24 hours. No citrus, raw fruit/vegtables, or fried/spicy foods for 2-5 days. Be seen if symptoms do not improve or worsen. Pt expressed understanding and acceptance of the plan. Pt had no further questions at this time. Advised can call back to clinic at any time with concerns. Janny Rodriguez, RN RAMMER ANALYST Telephone Encounter - Ariella Davidson - 02/08/2017 2:06 PM CST Patient believes he has food poisoning and would like to speak with a nurse. Please call him at [phone]. Ariella Davidson Nurse'S Companion RAMMER ANALYST documented in this encounter Plan of Treatment Not on filedocumented as of this encounter Visit Diagnoses Not on filedocumented in this encounter Care Teams Flight Manager Relationship Specialty Start Date End Date Raghavendra Deras MD PCP - General Family Practice 10/07/13 Raghavendra Deras MD PCP - Assigned PCP 01/23/16 04/09/18 Raghavendra Deras MD Assigned PCP 01/23/16 05/14/21 documented as of this encounter
--- OUTSIDE RECORDS SUMMARY | 2021-11-04 10:36 | XMS_ITS | Encounter Summary ---
:1945 Author Organization [place] Address [facility] 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 Is the person to be vaccinated sick today? No 2. Does the person to be vaccinated have an allergy to a component of the vaccine? No Egg Allergy Algorithm Link 3. Has the person to be vaccinated ever had a serious reaction to influenza vaccine in the past? No 4. Has the person to be vaccinated ever had Guillain-Gonzalez?? syndrome? No Form completed by Phoenix Dubois CMA Injectable Influenza Immunization Documentation 1. Is the person to be vaccinated sick today? No 2. Does the person to be vaccinated have an allergy to a component of the vaccine? No Egg Allergy Algorithm Link 3. Has the person to be vaccinated ever had a serious reaction to influenza vaccine in the past? No 4. Has the person to be vaccinated ever had Guillain-Gonzalez?? syndrome? No Form completed by Phoenix Dubois CMA TICE SPECIALIST documented in this encounter Plan of Treatment Not on filedocumented as of this encounter Visit Diagnoses Diagnosis Need for prophylactic vaccination and in oculation against influenza - Primary documented in this encounter Care Teams Grinder Machine Setter Relationship Specialty Start Date End Date Raghavendra Deras MD PCP - General Family Practice 10/07/13 Raghavendra Deras MD PCP - Assigned PCP 01/23/16 04/09/18 Raghavendra Deras MD Assigned PCP 01/23/16 05/14/21 documented as of this encounter
--- OUTSIDE RECORDS SUMMARY | 2021-11-04 10:36 | XMS_ITS | Encounter Summary ---
:1945 Author Organization [place] Address [address] [facility] [place] [address] Care Team Providers Name Role Phone Raghavendra Deras MD Primary Care Provider Unavailable Raghavendra Deras MD Unavailable Unavailable Raghavendra Deras MD Unavailable Unavailable Reason for Referral Consultation - Closed Specialty Diagnoses / Procedures Referred By Contact Refer red To Contact Diagnoses Hoarseness of voice Raghavendra Deras MD [facility] [address] [address] [place] [address] [place], [place] [phone] Phone: Fax: Referral ID Status Reason Start Date Expiration Date Visits Requ ested Visits Authorized [id number] Closed 01/31/2017 01/31/2018 1 1 EE SHOP MANAGER Reason for Visit Reason Comments Wellness Visit Encounter Details Date Type Department Care Team Description 01/31/2017 Office Visit [facility] Raghavendra Deras g eneral medical examination at a health care facility (Primary Dx); Clinic Candy Alan MD Hyperlipidemia LDL goal <130 ; [address] [address] Hypertension goal BP (blood pressure) < 140/90; [place], [place] History of pep tic ulcer disease; [address] MORENITA (obstructive sleep apnea ); [phone] Hoarseness of v oice Social History Tobacco Use Types Packs/Day Years [...] at Date Recorded Male 01/15/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 documented as of this encounter Last Filed Vital Signs Vital Sign Reading Time Taken Comments Blood Pressure 148/90 01/31/2017 11:02 AM COFFEE SHOP MANAGER Pulse 71 01/31/2017 10:42 AM COFFEE SHOP MANAGER Temperature 36.8 ??C (98.2 ??F) 01/31/2017 10:42 AM COFFEE SHOP MANAGER Respiratory Rate - - Oxygen Saturation 98% 01/31/2017 10:42 AM COFFEE SHOP MANAGER Inhaled Oxygen Concentration - - Weight 95.8 kg (211 lb 4.8 oz) 01/31/2017 10:42 AM COFFEE SHOP MANAGER Height 175.3 cm (5' 9) 01/31/2017 10:42 AM COFFEE SHOP MANAGER Body Mass Index 31.2 01/31/2017 10:42 AM COFFEE SHOP MANAGER documented in this encounter Patient Instructions Patient InstructionsFatemeh Camacho CMA - 01/31/2017 10:43 AM CST Preventive Health Recommendations: Male Ages [...] such as glaucoma, macular degeneration and cataracts. EE SHOP MANAGER documented in this encounter Progress Notes Fatemeh Camacho CMA - 01/31/2017 10:40 AM CST SUBJECTIVE: Terry Montero is a 71 year old male who presents for Preventive Visit. Annual Exam: Getting at least 3 servings of Calcium per day:: Yes Bi-annual eye exam:: Yes Dental care twice a year:: Yes Sleep apnea or symptoms of sleep apnea:: None Diet:: Regular (no restrictions) Frequency of exercise:: 2-3 days/week Taking medications regularly:: Yes Additional concerns today:: YES Activities of Daily Living: no assistance needed Home safety: no safety concerns identified Hearing Impairment:: no hearing concerns PHQ-2 Score: 0 Duration of exercise:: 15-30 minutes Patient reports his voice has changed and consistently sounded raspy for the past six months. Deniesdifficulties swallowing. Former smoker. Esophageal reflux is well controlled with Prilosec. History of allergic rhinitis. Patient does not use Flonase regularly. Patient currently has a cold. COGNITIVE SCREEN 1) Repeat 3 items (Banana, [place], Chair) 2) Clock draw: NORMAL 3) 3 item recall: Recalls 3 objects Results: 3 items recalled: COGNITIVE IMPAIRMENT LESS LIKELY Mini-CogTM Copyright Murali Lenz. Licensed by the author for use in [facility]; reprintedwith permission (sherif@[facility]). All rights reserved. Reviewed and updated as needed this visit by clinical staffTobacco Allergies Meds Med Hx Surg Hx Fam Hx Soc Hx Reviewed and updated as needed this visit by Provider Tobacco Social History Substance Use Topics ??? Smoking status: Former Smoker Packs/day: 0.50 Years: 20.00 Types: Cigarettes Quit date: 02/06/1984 ??? Smokeless tobacco: Never Used ??? Alcohol use 1.0 oz/week Comment: occasional If you drink alcohol do you typically have >3 drinks per day or >7 drinks per week? No Today's PHQ-2 Score: PHQ-2 (??1998 Pfizer) 01/25/2017 01/12/2016 Q1: Little interest or pleasure in doing things 0 - Q2: Feeling down, depressed or hopeless 0 - PHQ-2 Score 0 - Q1: Little interest or pleasure in doing things Not at all Not at all Q2: Feeling down, depressed or hopeless Not at all Not at all PHQ-2 Score 0 0 Do you have a Health Care Directive?: No: Advance care planning was reviewed with patient; patient declined at this time. Current providers sharing in care for this patient include: Patient Care Team: Raghavendra Deras MD as PCP - General (Family Practice) The following health maintenance items are reviewed in [facility] and correct as of today: Health Maintenance Topic Date Due ??? LIPID MONITORING Q1 YEAR 01/11/2017 ??? FALL RISK ASSESSMENT 01/11/2017 ??? COLONOSCOPY Q5 YR 06/05/2018 ??? TETANUS IMMUNIZATION (SYSTEM ASSIGNED) 10/19/2018 ??? ADVANCE DIRECTIVE PLANNING Q5 YRS 01/11/2021 ??? PNEUMOCOCCAL Completed ??? AORTIC ANEURYSM SCREENING (SYSTEM ASSIGNED) Completed ??? HEPATITIS C SCREENING Completed Patient Active Problem List Diagnosis ??? Actinic [...] History Negative Father ??? C.A.D. Maternal Uncle [place] ??? Cancer - colorectal Maternal Uncle ??? Prostate Cancer Other Cousin ROS: C: NEGATIVE for fever, chills, change in weight I: NEGATIVE for worrisome rashes, moles or lesions E: NEGATIVE for vision changes or irritation E/M: as above R: NEGATIVE for significant cough or SOB CV: NEGATIVE for chest pain, palpitations or peripheral edema GI: NEGATIVE for nausea, abdominal pain, heartburn, or change in bowel habits : NEGATIVE for frequency, dysuria, or hematuria M: NEGATIVE for significant arthralgias or myalgia N: NEGATIVE for weakness, dizziness or paresthesias P: NEGATIVE for changes in mood or affect This document serves as a record of the services and decisions personally performed and made by Raghavendra Deras MD. It was created on his behalf by Radha Mobley, a trained medical aides teacher. The creation of this document is based on the provider's statements to the medical aides teacher. Radha Mobley 10:59 AM January 31, 2017 OBJECTIVE: BP 148/90 Pulse 71 Temp 98.2 ??F (36.8 ??C) (Oral) Ht 1.753 m (5' 9) Wt 95.8 kg (211 lb 4.8oz) SpO2 98% BMI 31.2 kg/m2 Estimated body mass index is 31.2 kg/(m^2) as calculated from the following: Height as of this encounter: 1.753 m (5' 9). Weight as of this encounter: 95.8 kg (211 lb 4.8 oz). EXAM: GENERAL: healthy, alert and no distress [...] normal, affect normal/bright ASSESSMENT / PLAN: 1. Routine general medical examination at a health care facility 2. Hyperlipidemia LDL goal <130 - simvastatin (ZOCOR) 40 MG tablet; Take 0.5 tablets (20 mg) by mouth At Bedtime Dispense: 45 tablet; Refill: 3 - Lipid panel reflex to direct LDL Fasting 3. Hypertension goal BP (blood pressure) < 140/90 - doxazosin (CARDURA) 8 MG tablet; Take 0.5 tablets (4 mg) by mouth At Bedtime Dispense: 45 tablet; Refill: 3 - losartan (COZAAR) 25 MG tablet; Take 1 tablet (25 mg) by mouth daily Dispense: 90 tablet; Refill: 3 - UA reflex to Microscopic and Culture - Basic metabolic panel 4. History of peptic ulcer disease - omeprazole (PRILOSEC) 40 MG capsule; Take 1 capsule (40 mg) by mouth daily Take 30-60 minutes before a meal. Dispense: 90 capsule; Refill: 3 5. MORENITA (obstructive sleep apnea) 6. Hoarseness of voice - OTOLARYNGOLOGY REFERRAL End of Life Planning: Patient currently has an advanced directive: No. I have verified the patient's ablity to prepare an advanced directive/make health care decisions. Patient declined at this time COUNSELING: Reviewed preventive health counseling, as reflected in patient instructions Special attention given to: Regular exercise Healthy diet/nutrition Estimated body mass index is 31.2 kg/(m^2) as calculated from the following: Height as of this encounter: 1.753 m (5' 9). Weight as of this encounter: 95.8 kg (211 lb 4.8 oz). Weight management plan: Discussed healthy diet and exercise guidelines and patient will follow up in12 months in clinic to re-evaluate. reports that he quit smoking about 33 years ago. His smoking use included Cigarettes. He has a 10.00 pack-year smoking history. He has never used [...] in this document, created by the medical aides teacher for me, accurately reflects the services I personally performed and the decisions made by me. I have reviewed and approved this document for accuracy prior to leaving the patient care area. January 31, 2017 11:44 AM Raghavendra Deras MD [facility] EE SHOP MANAGER documented in this encounter Nursing Notes Fatemeh Camacho CMA - 01/31/2017 10:40 AM CST Chief Complaint Patient presents with ??? Wellness Visit Initial BP 154/80 (BP Location: Right arm, Patient Position: Chair, Cuff Size: Adult Regular) Pulse 71 Temp 98.2 ??F (36.8 ??C) (Oral) Ht 5' 9 (1.753 m) Wt 211 lb 4.8 oz (95.8 kg) SpO2 98% BMI 31.2 kg/m2 Estimated body mass index is 31.2 kg/(m^2) as calculated from the following: Height as of this encounter: 5' 9 (1.753 m). Weight as of this encounter: 211 lb 4.8 oz (95.8 kg). Medication Reconciliation: complete Health Maintenance addressed: NONE n/a Fatemeh Camacho CMA EE SHOP MANAGER documented in this encounter Plan of Treatment Scheduled Referrals Name Type Priority Associated Diagnoses Order S chedule OTOLARYNGOLOGY REFERRAL Referral Routine Hoarseness of voi ce Ordered: 01/31/2017 documented as of this encounter Procedures Procedure Name Priority Date/Time Associated Diagnosis Comme nts UA MACROSCOPIC WITH Routine 01/31/2017 11:30 Hypertension goal BP Results for this REFLEX TO AM COFFEE SHOP MANAGER (blood pressure) < procedure are in MICROSCOPIC AND 140/90 the results CULTURE section. LIPID REFLEX TO Routine 01/31/2017 11:21 Hyperlipidemia LDL Re sults for this DIRECT LDL PANEL AM COFFEE SHOP MANAGER goal <130 procedure a re in the results section. BASIC METABOLIC Routine 01/31/2017 11:21 Hypertension goal BP Results for this PANEL AM COFFEE SHOP MANAGER (blood pressure) < procedure are in 140/90 the results section. documented in this encounter Results UA reflex to Microscopic and Culture (01/31/2017 11:30 AM COFFEE SHOP MANAGER) [facility] Method Time Signature Color Urine Yellow 01/31/2017 [place] 11:34 AM [facility] Appearance Urine Clear 01/31/2017 [place] 11:34 AM [facility] Glucose Urine Negative NEG^Negat 01/31/2017 [place]a mg/dL 11:34 AM [facility] Bilirubin Urine Negative NEG^Negat 01/31/2017 [place] 11:34 AM [facility] Ketones Urine Negative NEG^Negat 01/31/2017 [place] deepa mg/dL 11:34 AM [facility] Specific [place] 1.015 1.003 - 01/31/2017 [place] Urine 1.035 11:34 AM [facility] Blood Urine Negative NEG^Negat 01/31/2017 [place] 11:34 AM [facility] pH Urine 7.0 5.0 - 7.0 01/31/2017 [place] pH 11:34 AM [facility] Protein Albumin Negative NEG^Negat 01/31/2017 [place] Urine deepa mg/dL 11:34 AM [facility] Urobilinogen 0.2 0.2 - 1.0 01/31/2017 [place] Urine EU/dL 11:34 AM [facility] Nitrite Urine Negative NEG^Negat 01/31/2017 [place] 11:34 AM [facility] Leukocyte Negative NEG^Negat 01/31/2017 [place] Esterase Urine [place]a 11:34 AM [facility] Source Midstream 01/31/2017 [place] Urine 11:34 AM [facility] Specimen (Source) Anatomical Collection Method Collection Time Re ceived Time Location / / Volume Laterality Examination of 01/31/2017 11:30 7 midstream urine AM COFFEE SHOP MANAGER 11:31 AM COFFEE SHOP MANAGER specimen (procedure) Raghavendra Deras MD LAB - URINE ORDERABLES Performing Organization Address City/State/ZIP Code Phon e Number [facility] [id number] [place] [address] Basic metabolic panel (01/31/2017 11:21 AM COFFEE SHOP MANAGER) P athologist Signature Sodium 143 133 - 144 02/01/2017 [facility] mmol/L 9:07 AM [facility] Potassium 4.4 3.4 - 5.3 02/01/2017 [facility] mmol/L 9:07 AM [facility] [place] Chloride 108 94 - 109 02/01/2017 [facility] mmol/L 9:07 AM [facility] Carbon Dioxide 27 20 - 32 02/01/2017 [place] [facility] mmol/L 9:07 AM [facility] Anion Gap 8 3 - 14 02/01/2017 [facility] mmol/L 9:07 AM [facility] Glucose 85 70 - 99 02/01/2017 [facility] mg/dL 9:07 AM [facility] Comment: Fasting specimen Urea Nitrogen 11 7 - 30 mg/dL 02/01/2017 9:07 AM [facility] Creatinine 0.98 0.66 - 1.25 mg/dL 02/01/2017 9:07 AM CS T [facility] GFR Estimate 75 >60 mL/min/1.7m2 02/01/2017 9:[address] [facility] Comment: Non GFR Calc GFR Estimate If >90 >60 mL/min/1.7m2 02/01/2017 9:07 A M [facility] Black [facility] Comment: GFR Calc Calcium 8.9 8.5 - 10.1 mg/dL 02/01/2017 9:07 AM [facility] Specimen Anatomical Collection Method Collection Time Receive d Time (Source) Location / / Volume Laterality Blood specimen 01/31/2017 11:21 7 (specimen) AM COFFEE SHOP MANAGER 11:22 AM COFFEE SHOP MANAGER Raghavendra Deras MD LAB - BLOOD ORDERABLES Performing Organization Address City/State/ZIP Code Phon e Number [facility] [address] [place] [address] (ABNORMAL) Lipid panel reflex to direct LDL Fasting (01/31/2017 11:21 AM COFFEE SHOP MANAGER) Analysis Performed At Patho logist Time Signature Cholesterol 149 <200 mg/dL 02/01/2017 [place] 9:07 AM [facility] Triglycerides 171 (H) <150 mg/dL 02/01/2017 [place] 9:10 AM [facility] Comment: Borderline high: ??150-199 mg/dl High: ? 200-499 mg/dl Very high: ? >499 mg/dl Fasting specimen HDL Cholesterol 49 >39 mg/dL 02/01/2017 9:10 AM [facility] LDL Cholesterol 66 <100 mg/dL 02/01/2017 9:10 AM [facility] Comment: Desirable: <100 mg/dl Non HDL Cholesterol 100 <130 mg/dL 02/01/2017 9:10 AM [facility] Specimen Anatomical Collection Method Collection Time Receive d Time (Source) Location / / Volume Laterality Blood specimen 01/31/2017 11:21 7 (specimen) AM COFFEE SHOP MANAGER 11:22 AM COFFEE SHOP MANAGER Raghavendra Deras MD LAB - BLOOD ORDERABLES Performing Organization Address City/State/ZIP Code Phon e Number M [facility] [address] [place] [address] [facility] [address] [place], [place] [address] [facility] [address] [address], [place] [phone] documented in this encounter Visit Diagnoses Diagnosis Routine general medical examination at a health care facility - Primary Hyperlipidemia LDL goal <130 Other and unspecified hyperlipidemia Hypertension goal BP (blood pressure) < 140/90 Unspecified essential hypertension History of peptic ulcer disease Personal history of peptic ulcer disease MORENITA (obstructive sleep apnea) Obstructive sleep apnea (adult) (pediatr ic) Hoarseness of voice Dysphonia documented in this encounter Care Teams Bounty Hunter Relationship Specialty Start Date End Date Raghavendra Deras MD PCP - General Family Practice 10/07/13 Raghavendra Deras MD PCP - Assigned PCP 01/23/16 04/09/18 Raghavendra Deras MD Assigned PCP 01/23/16 05/14/21 documented as of this encounter
--- OUTSIDE RECORDS SUMMARY | 2021-11-04 10:36 | XMS_ITS | Encounter Summary ---
:1945 Author Organization [place] Address [facility] 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 documented as of this encounter Last Filed Vital Signs Vital Sign Reading Time Taken Comments Blood Pressure 151/88 03/11/2015 3:27 PM MICROWAVE ENGINEER Pulse 68 03/11/2015 3:27 PM MICROWAVE ENGINEER Temperature 36.8 ??C (98.2 ??F) 03/11/2015 3:27 PM MICROWAVE ENGINEER Respiratory Rate - - Oxygen Saturation - - Inhaled Oxygen Concentration - - Weight 92.5 kg (204 lb) 03/11/2015 3:27 PM MICROWAVE ENGINEER Height 175.3 cm (5' 9) 03/11/2015 3:27 PM MICROWAVE ENGINEER Body Mass Index 30.13 03/11/2015 3:27 PM MICROWAVE ENGINEER documented in this encounter Patient Instructions Patient InstructionsElly Cueto MD - 03/11/2015 3:51 PM CST Images from the original note were not included. Coricidin for cough Rib Contusion A rib contusion is a bruise to one or more rib bones. It may cause pain, tenderness, swelling and a purplish discoloration. There may be a sharp pain while breathing You will be assessed for other injuries. You will likely be given medication for pain. Rib contusions heal on their own, without further treatment. However, pain may take weeks to months to go away.?? Note that a small crack (fracture) in the rib may cause the same symptoms as a rib contusion. The small crack may not be seen on a chest x-ray. However, the two conditions are managed in the same way. Home care ?? Rest. Avoid heavy lifting, strenuous exertion, or any activity that causes pain. ?? Ice the area to reduce pain and swelling. Put ice cubes in a plastic bag or use a cold pack. (Wrap the cold source in a thin towel. Do not place it directly on your skin.) Ice the injured area for 20 minutes every 1-2 hours the first day. Continue with ice packs 3-4 times a day for the next two days, then as needed for the relief of pain and swelling. ?? Take any prescribed pain medication. If none was prescribed, take acetaminophen,??ibuprofen,??or naproxen??to control pain. Follow-up care Follow up with your healthcare provider during the next week or as directed. When to seek medical advice Call your healthcare provider for any of the following: ?? Shortness of breath or trouble breathing ?? Increasing chest pain with breathing ?? Coughing ?? Dizziness, weakness, or fainting ?? New or worsening??pain ?? Fever of 100.4??F (38??C) or higher, or as directed by your healthcare provider ?? [id number] [employer]. [address] [place] [address], [place] [address]. All rights reserved. This information is not intended as a substitute for professional medical care. Always follow your healthcare professional's instructions. OWAVE ENGINEER documented in this encounter Progress Notes Elly Cueto MD - 03/11/2015 3:22 PM CST SUBJECTIVE: Terry Montero is a 69 year old male who presents to clinic today for the following health issues: Musculoskeletal problem/pain ?? Duration: 2 days ago ?? Description Location: left side rib area ?? Intensity: 10/10 with a cough ?? Accompanying signs and symptoms: none ?? History Previous similar problem: no Previous evaluation: none ?? Precipitating or alleviating factors: Trauma or overuse: YES fall on the ice. Aggravating factors include: coughing ?? Therapies tried and outcome: ice Slipped on the ice 2 days ago, hit his left hip and left rib area. Did not strike his head. Since then, he's had pain in his left ribs but not the left hip. He hasn't noted any bruising or swelling in the left rib area. He's not able to reproduce the pain with pushing on his ribs. However, he notes a chronic cough that kicks up every couple weeks. This is occurring currently, and - when he coughs - he has extreme pain in his left ribs. No dyspnea. No pain with deep breathing. He has taken 4-5 tabs of ibuprofen daily, which helps some. He has also used ice. Problem list and histories reviewed & adjusted, as indicated. Additional history: none Patient Active Problem List Diagnosis ??? Actinic [...] Diabetes Maternal Grandmother ??? C.A.D. Maternal Uncle [place] ??? Cancer - colorectal Maternal Uncle ??? Prostate Cancer Other Cousin ??? Heart Disease Brother stent - 66 ??? Prostate Cancer Brother no cancer, but a produre due reduce the prostate ??? Cancer Sister bone caner/lung cancer ??? Prostate Cancer Paternal Grandfather not sure ??? Cerebrovascular Accident Maternal Grandmother older, 70's or 80's Current Outpatient Prescriptions Medication Sig Dispense Refill ??? hydrochlorothiazide (HYDRODIURIL) 25 MG tablet Take 1 tablet (25 mg) by mouth daily 90 tablet 4 ??? simvastatin (ZOCOR) 40 MG tablet Take 0.5 tablets (20 mg) by mouth At Bedtime 45 tablet 4 ??? doxazosin (CARDURA) 8 MG tablet Take 0.5 tablets (4 mg) by mouth At Bedtime 45 tablet 4 ??? omeprazole (PRILOSEC) 40 MG capsule Take 1 capsule (40 mg) by mouth daily Take 30-60 minutes before a meal. 90 capsule 4 ??? fluticasone (FLONASE) 50 MCG/ACT nasal spray [place] 1-2 sprays into both nostrils daily 1 [id number] ??? fish oil-omega-3 fatty acids 1000 MG capsule Take 2 capsules (2 g) by mouth daily PT IS NOW TAKING 1 TAB PER DAY 90 capsule ??? Multiple Vitamins-Minerals (CENTRUM SILVER ULTRA MENS PO) Take 1 tablet by mouth daily ROS: Constitutional, HEENT, cardiovascular, pulmonary, gi and gu systems are negative, except as otherwise noted. OBJECTIVE: BP 151/88 mmHg Pulse 68 Temp(Src) 98.2 ??F (36.8 ??C) (Oral) Ht 5' 9 (1.753 m) Wt 204 lb (92.534 kg) BMI 30.11 kg/m2 Body mass index is 30.11 kg/(m^2). GENERAL: healthy, alert and no distress RESP: symmetric lung sounds, good air entry, no pain with deep inspiration, lungs clear to auscultation - no rales, rhonchi or wheezes CV: regular rate and rhythm, normal S1 S2, no S3 or S4, no murmur, click or rub MS: left chest with no bruising or swelling, not able to reproduce significant pain with palpation, negative rib squeeze Diagnostic Test Results: none ASSESSMENT/PLAN: 1. Contusion of rib, left, initial encounter: Exam is not consistent with rib fracture. Advised appropriate use of ibuprofen with hx of HTN, BPH on Cardura. Advised heat. Advised safe anti-tussives, which will in turn help rib pain. 2. Hypertension goal BP (blood pressure) < 140/90: Elevated today, likely related to pain. Previous BPs have been well within range. Advised follow up in 2 weeks for rib check, or sooner if symptoms are not improving. Elly Cueto MD [facility] OWAVE ENGINEER documented in this encounter Nursing Notes Phoenix Dubois CMA - 03/11/2015 3:29 PM CST Chief Complaint Patient presents with ??? Musculoskeletal Problem Initial BP 151/88 mmHg Pulse 68 Temp(Src) 98.2 ??F (36.8 ??C) (Oral) Ht 5' 9 (1.753 m) Wt 204 lb (92.534 kg) BMI 30.11 kg/m2 Estimated body mass index is 30.11 kg/(m^2) as calculated from the following: Height as of this encounter: 5' 9 (1.753 m). Weight as of this encounter: 204 lb (92.534 kg). BP completed using cuff size: temo Dubois CMA OWAVE ENGINEER documented in this encounter Plan of Treatment Not on filedocumented as of this encounter Visit Diagnoses Diagnosis Contusion of rib, left, initial encounte r - Primary Hypertension goal BP (blood pressure) < 140/90 Unspecified essential hypertension documented in this encounter Care Teams Glass Tube Bender Relationship Specialty Start Date End Date Raghavendra Deras MD PCP - General Family Practice 10/07/13 documented as of this encounter
--- OUTSIDE RECORDS SUMMARY | 2021-11-04 10:36 | XMS_ITS | Encounter Summary ---
:1945 Author Organization [place] Address [address] [facility] 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 documented as of this encounter Last Filed Vital Signs Vital Sign Reading Time Taken Comments Blood Pressure 130/80 04/20/2016 10:46 AM CDT Pulse 70 04/20/2016 10:46 AM CDT Temperature 36.9 ??C (98.4 ??F) 04/20/2016 10:46 AM CDT Respiratory Rate - - Oxygen Saturation 95% 04/20/2016 10:46 AM CDT Inhaled Oxygen Concentration - - Weight 92.7 kg (204 lb 6.4 oz) 04/20/2016 10:46 AM CDT Height 175.3 cm (5' 9) 04/20/2016 10:46 AM CDT Body Mass Index 30.18 04/20/2016 10:46 AM CDT documented in this encounter Progress Notes Raghavendra Deras MD - 04/20/2016 10:45 AM CDT SUBJECTIVE: Terry Montero is a 70 year old male who presents to clinic today for the following health issues: Patient presents with: Abdominal Pain: cramping Patient with ongoing left lower abdominal pain over about 1 month duration. Denies any fever, sweats, or chills. Denies significant diarrhea or constipation. No hematochezia or melena. No nausea or vomiting. Pain will be several minutes at a time with discomfort but some dull aching throughout the day. No other health changes. Patient does have history of diverticulosis without diverticulitis in the past. Patient Active Problem List Diagnosis ??? Actinic [...] ? Hyperlipidemia LDL goal <130 Past Surgical History Procedure Laterality Date ??? Hc colonoscopy thru stoma, diagnostic 2002 ??? Colonoscopy 06/05/2013 Procedure: COLONOSCOPY; Surgeon: Matthew Richardson MD; Location: GI Social History Substance Use Topics ??? Smoking [...] History Negative Father ??? C.A.D. Maternal Uncle [place] ??? Cancer - colorectal Maternal Uncle ??? Prostate Cancer Other Cousin ROS: CONSTITUTIONAL:NEGATIVE for fever, chills, change in weight GI: as above OBJECTIVE: BP 130/80 (BP Location: Right arm, Patient Position: Chair, Cuff Size: Adult Large) Pulse 70 Temp 98.4 ??F (36.9 ??C) (Oral) Ht 5' 9 (1.753 m) Wt 204 lb 6.4 oz (92.7 kg) SpO2 95% BMI 30.18 kg/m2Body mass index is 30.18 kg/(m^2). GENERAL APPEARANCE: healthy, alert and no distress ABDOMEN: soft, nontender, without hepatosplenomegaly or masses and bowel sounds normal ASSESSMENT/PLAN: 1. Abdominal pain, left lower quadrant Check labs below. If not improving consider CT abdomen/pelvis to rule out diverticulitis or potentially colitis versus other. - UA reflex to Microscopic and Culture - CBC with platelets differential - Tissue transglutaminase antibody IgA - Erythrocyte sedimentation rate auto - CRP inflammation - Urine Microscopic Raghavendra Deras MD [facility] documented in this encounter Nursing Notes Yanelis Kessler, REHABILITATION TECH - 04/20/2016 10:45 AM CDT Chief Complaint Patient presents with ??? Abdominal Pain cramping Initial BP 130/80 (BP Location: Right arm, Patient Position: Chair, Cuff Size: Adult Large) Pulse 70Temp 98.4 ??F (36.9 ??C) (Oral) Ht 5' 9 (1.753 m) Wt 204 lb 6.4 oz (92.7 kg) SpO2 95% BMI 30.18 kg/m2 Estimated body mass index is 30.18 kg/(m^2) as calculated from the following: Height as of this encounter: 5' 9 (1.753 m). Weight as of this encounter: 204 lb 6.4 oz (92.7 kg). Medication Reconciliation: complete Yanelis Kessler CMA documented in this encounter Plan of Treatment Not on filedocumented as of this encounter Procedures Procedure Name Priority Date/Time Associated Comments Diagnosis URINE MICROSCOPIC Routine 04/20/2016 11:07 Abdominal pain, Res ults for this AM CDT left lower procedure are i n quadrant the results section. UA MACROSCOPIC WITH Routine 04/20/2016 11:07 Abdominal pain, R esults for this REFLEX TO MICROSCOPIC AM CDT left lower proced ure are in AND CULTURE quadrant the results section. CBC WITH PLATELETS & Routine 04/20/2016 11:07 Abdominal pain, Results for this DIFFERENTIAL AM CDT left lower procedure are i n quadrant the results section. TISSUE TRANSGLUTAMINASE Routine 04/20/2016 11:07 Abdominal bruce n, Results for this ANTIBODY IGA AM CDT left lower procedure are i n quadrant the results section. ERYTHROCYTE Routine 04/20/2016 11:07 Abdominal pain, Results for this SEDIMENTATION RATE AUTO AM CDT left lower proc edure are in quadrant the results section. CRP INFLAMMATION Routine 04/20/2016 11:07 Abdominal pain, Resu lts for this AM CDT left lower procedure are i n quadrant the results section. documented in this encounter Results (ABNORMAL) Urine Microscopic (04/20/2016 11:07 AM CDT) [facility] gist Method Time Signature WBC Urine O - 2 0 - 2 [place] /HPF [facility] RBC Urine 2-5 (A) 0 - 2 [place] /HPF [facility] Bacteria Urine Few (A) NEG /HPF [facility] Mucous Urine Present (A) NEG /LPF [facility] Specimen Anatomical Collection Method Collection Time Receive d Time (Source) Location / / Volume Laterality 04/20/2016 11:07 04/20/2016 AM CDT 11:12 AM CDT Raghavendra Deras MD LAB - URINE ORDERABLES Performing Organization Address City/State/ZIP Code Phon e Number [facility] [id number] [place] [address] CRP inflammation (04/20/2016 11:07 AM CDT) Analysis Performed At Patho logist Time Signature CRP Inflammation 3.5 0.0 - 8.0 [facility] mg/L [facility] Specimen Anatomical Collection Method Collection Time Receive d Time (Source) Location / / Volume Laterality Blood specimen 04/20/2016 11:07 7 (specimen) AM CDT 11:12 AM CDT Raghavendra Deras MD LAB - BLOOD ORDERABLES Performing Organization Address City/[facility]/ZIP Code Phon e Number [facility] [address] [place], [place] [id number] [place] [address] Erythrocyte sedimentation rate auto (04/20/2016 11:07 AM CDT) athologist Signature Sed Rate 13 0 - 20 mm/h [facility] Specimen Anatomical Collection Method Collection Time Receive d Time (Source) Location / / Volume Laterality Blood specimen 04/20/2016 11:07 7 (specimen) AM CDT 11:12 AM CDT Raghavendra Deras MD LAB - BLOOD ORDERABLES Performing Organization Address City/[facility]/ZIP Code Phon e Number [facility] [id number] [place] [address] Tissue transglutaminase antibody IgA (04/20/2016 11:07 AM CDT) [facility] Method Time Signature Tissue 1 <7 U/mL [facility] Transglutaminase [facility] Comment: Negative The tTG-IgA assay has limited utility f or patients with decreased levels of IgA. Screening for celiac disease shoul d include IgA testing to rule out selective IgA deficiency and to guide s election and interpretation of serological testing. tTG-IgG testing ma y be positive in celiac disease patients with IgA deficiency. Specimen Anatomical Collection Method Collection Time Receive d Time (Source) Location / / Volume Laterality Blood specimen 04/20/2016 11:07 7 (specimen) AM CDT 11:12 AM CDT Raghavendra Deras MD LAB - BLOOD ORDERABLES Performing Organization Address City/[facility]/ZIP Code Phon e Number [facility] [address] [place] [address] [facility] (ABNORMAL) CBC with platelets differential (04/20/2016 11:07 AM CDT) [facility] Method Time Signature WBC 4.3 4.0 - [place] 11.0 [facility] 10e9/L [facility] RBC Count 4.53 4.4 - 5.9 [place] 10e12/L [facility] Hemoglobin 13.3 13.3 - [place] 17.7 g/dL [facility] Hematocrit 39.4 (L) 40.0 - [place] 53.0 % [facility] MCV 87 78 - 100 [place] fl [facility] MCH 29.4 26.5 - [place] 33.0 pg [facility] MCHC 33.8 31.5 - [place] 36.5 g/dL [facility] RDW 13.4 10.0 - [place] 15.0 % [facility] Platelet Count 154 150 - 450 [place] 10e9/L [facility] Diff Method Automated [facility] % Neutrophils 66.0 % [facility] % Lymphocytes 24.0 % [facility] % Monocytes 8.3 % [facility] % Eosinophils 1.2 % [facility] % Basophils 0.5 % [facility] Absolute 2.9 1.6 - 8.3 [place] Neutrophil 10e9/L [facility] Absolute 1.0 0.8 - 5.3 [place] Lymphocytes 10e9/L [facility] Absolute 0.4 0.0 - 1.3 [place] Monocytes 10e9/L [facility] Absolute 0.1 0.0 - 0.7 [place] Eosinophils 10e9/L [facility] Absolute 0.0 0.0 - 0.2 [place] Basophils 10e9/L [facility] Specimen Anatomical Collection Method Collection Time Receive d Time (Source) Location / / Volume Laterality Blood specimen 04/20/2016 11:07 7 (specimen) AM CDT 11:12 AM CDT Raghavendra Deras MD LAB - BLOOD ORDERABLES Performing Organization Address City/State/ZIP Code Phon e Number [facility] [id number] [place] [address] (ABNORMAL) UA reflex to Microscopic and Culture (04/20/2016 11:07 AM CDT) [facility] Method Time Signature Color Urine Yellow [facility] Appearance Urine Clear [facility] Glucose Urine Negative NEG mg/dL [facility] Bilirubin Urine Negative NEG [facility] Ketones Urine Negative NEG mg/dL [facility] Specific [place] 1.015 1.003 - [place] Urine 1.035 [facility] Blood Urine Trace (A) NEG [facility] pH Urine 6.5 5.0 - 7.0 [place] pH [facility] Protein Albumin Negative NEG mg/dL [place] Urine [facility] Urobilinogen 0.2 0.2 - 1.0 [place] Urine EU/dL [facility] Nitrite Urine Negative NEG [facility] Leukocyte Negative NEG [place] Esterase Urine [facility] Source Midstream [place] Urine [facility] Specimen Anatomical Collection Method Collection Time Receive d Time (Source) Location / / Volume Laterality Urine specimen 04/20/2016 11:07 7 (specimen) AM CDT 11:12 AM CDT Raghavendra Deras MD LAB - URINE ORDERABLES Performing Organization Address City/State/ZIP Code Phon e Number [facility] [id number] [place] [address] documented in this encounter Visit Diagnoses Diagnosis Abdominal pain, left lower quadrant - Pr imary documented in this encounter Care Teams Branch Manager Trainee Relationship Specialty Start Date End Date Raghavendra Deras MD PCP - General Family Practice 10/07/13 Raghavendra Deras MD PCP - Assigned PCP 01/23/16 04/09/18 Raghavendra Deras MD Assigned PCP 01/23/16 05/14/21 documented as of this encounter
--- OUTSIDE RECORDS SUMMARY | 2021-11-04 10:36 | XMS_ITS | Encounter Summary ---
:1945 Author Organization [place] Address [address] [facility] [place] [address] Care Team Providers Name Role Phone Raghavendra Deras MD Primary Care Provider Unavailable Raghavendra Deras MD Unavailable Unavailable Raghavendra Deras MD Unavailable Unavailable Reason for Visit Reason Comments Hoarse Ear Problem Left Encounter Details Date Type Department Care Team Description 11/01/2016 Office Visit [facility] Raghavendra Deras Viral URI (Primary Dx); Clinic Candy Alan MD PND (post-nasal drip); [id number] [facility] Trauma of ear canal, [place] [address] Social History Tobacco Use Types [...] at Date Recorded 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 documented as of this encounter Last Filed Vital Signs Vital Sign Reading Time Taken Comments Blood Pressure 120/72 11/01/2016 1:46 PM CDT Pulse 64 11/01/2016 1:46 PM CDT Temperature 37.1 ??C (98.7 ??F) 11/01/2016 1:46 PM CDT Respiratory Rate 18 11/01/2016 1:46 PM CDT Oxygen Saturation 95% 11/01/2016 1:46 PM CDT Inhaled Oxygen Concentration - - Weight 92.2 kg (203 lb 4.8 oz) 11/01/2016 1:46 PM CDT Height 175.3 cm (5' 9) 11/01/2016 1:46 PM CDT Body Mass Index 30.02 11/01/2016 1:46 PM CDT documented in this encounter Patient Instructions Patient InstructionsRaghavendra Deras MD - 11/01/2016 1:45 PM CDT Flonase Claritin documented in this encounter Progress Notes Raghavendra Deras MD - 11/01/2016 1:45 PM CDT SUBJECTIVE: Terry Montero is a 71 year old male who presents to clinic today for the following health issues: Patient presents with: Hoarse Ear Problem: Left Patient with nasal drainage and clearing throat in the morning over the past 3 weeks. He has had a change in his voice with hoarse voice and more quiet voice over that time. Denies significant sore throat. Denies ear pain but had blood from the left ear canal today. Denies fever. Denies significant sinus pain or bloody nasal drainage. History of allergic rhinitis and just getting back on Flonase and Claritin. ROS: CONSTITUTIONAL: No fever ENT/MOUTH: As noted above OBJECTIVE: BP 120/72 (BP Location: Right arm, Patient Position: Chair, Cuff Size: Adult Regular) Pulse 64 Temp 98.7 ??F (37.1 ??C) (Oral) Resp 18 Ht 5' 9 (1.753 m) Wt 203 lb 4.8 oz (92.2 kg) SpO2 95% BMI 30.02 kg/m2Body mass index is 30.02 kg/(m^2). GENERAL APPEARANCE: healthy, alert and no distress EYES: Eyes grossly normal to inspection and conjunctivae and sclerae normal HENT: Right canal and TM normal, left canal with trauma to skin and bleeding in canal, TM normal NECK: no adenopathy RESP: lungs clear to auscultation - no rales, rhonchi or wheezes ASSESSMENT/PLAN: 1. Viral URI Symptomatic management for viral upper respiratory illness. Acetaminophen or ibuprofen for pain or fever. Use robitussin DM for cough. Return if worsening. 2. PND (post-nasal drip) Discussed PND issues can occur for weeks after a viral illness or with allergies. Recommend using robitussin for cough, nasal saline spray, consider antihistamine or intranasal corticosteroid spray if history of allergies. Return if worsening or develops fever or SOB or cough not improving in 2 weeks. 3. Trauma of ear canal, initial encounter Raghavendra Deras MD [facility] documented in this encounter Nursing Notes Fatemeh Camacho CMA - 11/01/2016 1:45 PM CDT Chief Complaint Patient presents with ??? Hoarse ??? Ear Problem Left Initial BP 120/72 (BP Location: Right arm, Patient Position: Chair, Cuff Size: Adult Regular) Pulse 64 Temp 98.7 ??F (37.1 ??C) (Oral) Resp 18 Ht 5' 9 (1.753 m) Wt 203 lb 4.8 oz (92.2 kg) SpO2 95% BMI 30.02 kg/m2 Estimated body mass index is 30.02 kg/(m^2) as calculated from the following: Height as of this encounter: 5' 9 (1.753 m). Weight as of this encounter: 203 lb 4.8 oz (92.2 kg). Medication Reconciliation: complete Fatemeh Camacho CMA Health Maintenance- Has Been Reviewed. documented in this encounter Plan of Treatment Not on filedocumented as of this encounter Visit Diagnoses Diagnosis Viral URI - Primary Acute upper respiratory infections of un specified site PND (post-nasal drip) Postnasal drip Trauma of ear canal, initial encounter documented in this encounter Care Teams Carpet Binder Relationship Specialty Start Date End Date Raghavendra Deras MD PCP - General Family Practice 10/07/13 Raghavendra Deras MD PCP - Assigned PCP 01/23/16 04/09/18 Raghavendra Deras MD Assigned PCP 01/23/16 05/14/21 documented as of this encounter
--- OUTSIDE RECORDS SUMMARY | 2021-11-04 10:36 | XMS_ITS | Encounter Summary ---
:1945 Author Organization [place] Address [address] [facility] [place] [address] Care Team Providers Name Role Phone Raghavendra Deras MD Primary Care Provider Unavailable Reason for Referral SOTO Physical Therapy - Closed Specialty Diagnoses / Procedures Referred By Contact Refer red To Contact Diagnoses Chronic left-sided low back pain without sciatica Artis Thrasher DO [facility] [address] [place] [address] [address] [facility] [place] [address] Phone: [phone] Referral ID Status Reason Start Date Expiration Date Visits Requ ested Visits Authorized [id number] Closed 10/08/2015 10/07/2016 1 1 Reason for Visit Reason Comments Musculoskeletal Problem low back pain Encounter Details Date Type Department Care Team Description [facility] ft-sided low back pain without sciatica (Primary Dx); Sports Medicine DO Javier Spondylolisthesis of lumbar region; Clinic [place] [address] [place] [address] Lumbar degenerative disc disease [address] [place], [place] [phone] [place] [address] Social History Tobacco Use Types [...] at Date Recorded 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 Left low back pain without radiation 2. Lumbar spondylolisthesis Activity modification as discussed Physical therapy: [facility] - [phone] Topical Treatments: Ice or heat Over the counter medication: Acetaminophen (Tylenol) maximum of 3000 mg per day Follow-up as needed for further evaluation/medical care. Instructed to follow-up if change of symptoms arise (sooner if needed; call direct clinic number [[phone]] at any time with questions or concerns). documented in this encounter Progress Notes Artis Thrasher DO - 10/06/2015 10:46 AM CDT [facility] Visit s Oct 06, 2015 Subjective: Terry Montero is a 70 year old male who is seen as self referral for evaluation of low back pain. Symptoms began 2 weeks ago. Reports insidious onset without acute precipitating event. Reports aching and sharp left-sided low back pain with radiation absent. Symptoms are generally worse with daily activities and with lying on his stomach and better with bending forward. Other treatment has consisted of ice, heat, and Ibuprofen with good relief. Has not been completing home exercise program as previously prescribed during formal physical therapy. Associated symptoms include denies any bowel/bladder dysfunction or saddle anesthesia. Denies any weakness/numbness/tingling of the lower extremities. Patient's past medical, surgical, social, and family histories are reviewed today. There are no significant contributory medical issues Past Medical History Diagnosis Date ??? Essential hypertension, benign 12/30/2002 ??? Acute duodenal ulcer with hemorrhage, without mention of obstruction 1997 ??? Pulmonary nodule CT reassuring 2008 ??? Arthritis ??? SCC (squamous cell carcinoma), face 03/16/2008 ? ? Hypertension goal BP (blood pressure) < 140/90 06/24/2010 ? ? Hyperlipidemia LDL goal < 130 04/15/2014 Review of Systems: Constitutional: NEGATIVE for fever, chills, or change in weight Skin: NEGATIVE for worrisome rashes, moles or lesions Neuro: NEGATIVE for weakness of the lower extermities MSK: see HPI Additional 10 point ROS is negative other than symptoms noted above and in HPI Objective: BP 118/68 mmHg Ht 5' 9 (1.753 m) Wt 206 lb (93.441 kg) BMI 30.41 kg/m2 General: healthy, alert, obese, and in no distress Skin: no suspicious lesions or rashes Psych: mentation appears normal and affect normal/bright HEENT: no scleral icterus CV: no pedal edema Resp: normal respiratory effort without conversational dyspnea Neuro: sensory exam is within normal limits. Motor strength as noted below Lymph: no palpable lymphadenopathy MSK: THORACIC/LUMBAR SPINE Inspection: No redness, swelling, overlying skin change, or gross deformity/asymmetry Palpation: Tender about the paralumbar musculature (left) No tenderness over the lumbar spinous processes, lumbar facet joints, paralumbar musculature (rightl), SI joints (bilateral), or sciatic notches (bilateral) Range of Motion: Lumbar flexion limited slightly by pain Lumbar extension limited slightly by pain Strength: Quadriceps/hamstrings - 5/5 Dorsiflexion/plantarflexion/great toe extension - 5/5 Special Tests: Positive: ALEXANDER - posterior (left) Negative: Facet compression test (bilateral), straight leg raise (left), and Gaenslen's (left) Imaging: Lumbar spine x-rays were ordered, independent visualization of images was performed, and interpretedin the office today Impression: 1. L5-S1 1.0 cm grade 1-2 spondylolisthesis, most likely on the basis of bilateral L5 pars interarticularis defects. 2. Degree of spondylolisthesis is minimally if at all changed with flexion and extension. 3. Mild to moderate degenerative loss of disc height is noted at L5-S1. 4. Disc heights in the remainder of the lumbar spine appear within normal limits with mild anterior spurring noted in the mid lumbar spine. 5. Vertebral body heights appear within normal limits. ASSESSMENT: 1. Acute left low back without radiation 2. Lumbar spondylolisthesis 3. Lumbar degenerative disc disease PLAN: 1. Acetaminophen/Ibuprofen/ice/heat as needed for improved pain control. 2. Activity modification as discussed, including limitation of activities that cause pain/discomfort. 3. Formal physical therapy - exercises to include abdominal strengthening, lumbar spine strengthening/stabilization/endurance/motor control, and muscle- length balancing with avoidance of extension activities with use of modalities as needed with home exercise prescription. 4. Follow-up as needed for further evaluation/medical care. Instructed to follow-up if change of symptoms arise. Patient's conditions were thoroughly discussed during today's visit with greater than 50% of the visit spent counseling the patient with total time spent [id number] with the patient being 15 minutes. Artis Thrasher DO, [facility] Disclaimer: This note consists of symbols derived from keyboarding, dictation and/or voice recognition software. As a result, there may be errors in the script that have gone undetected. Please consider this when interpreting information found in this chart. This document serves as a record of the services and decisions personally performed and made by Shreyas Thrasher DO. It was created on his behalf by Cornell Montejo, a trained emergency medical service manager. The creation ofthis record is based on the provider's personal observations and the statements of the patient. Thisdocument has been checked and approved by the attending provider. Cornell Montejo 11:04 AM October 06, 2015 documented in this encounter Nursing Notes Raffi Steele ATC - 10/06/2015 10:49 AM CDT Chief Complaint Patient presents with ??? Musculoskeletal Problem low back pain Initial BP 118/68 mmHg Ht 5' 9 (1.753 m) Wt 206 lb (93.441 kg) BMI 30.41 kg/m2 Estimated bodymass index is 30.41 kg/(m^2) as calculated from the following: Height as of this encounter: 5' 9 (1.753 m). Weight as of this encounter: 206 lb (93.441 kg). BP completed using cuff size: kenzie Steele ATC/R documented in this encounter Plan of Treatment Scheduled Referrals Name Type Priority Associated Diagnoses Order S chedule SOTO PT, HAND, AND Referral Routine Chronic left-sided low Ordered: 10/08/2015 CHIROPRACTIC REFERRAL back pain without sciatica documented as of this encounter Results XR Lumbar Spine G/E [...] limits. ELIZABETH PIRES MD Artis Thrasher DO [facility] ORDER MICHELLE documented in this encounter Visit Diagnoses Diagnosis Chronic left-sided low back pain without sciatica - Primary Spondylolisthesis of lumbar region Acquired spondylolisthesis Lumbar degenerative disc disease Degeneration of lumbar or lumbosacral in tervertebral disc Chronic left-sided low back pain without sciatica documented in this encounter Care Teams Office Services Coordinator Relationship Specialty Start Date End Date Raghavendra Deras MD PCP - General Family Practice 10/07/13 documented as of this encounter
--- OUTSIDE RECORDS SUMMARY | 2021-11-04 10:37 | XMS_ITS | Encounter Summary ---
:1945 Author Organization [place] Address [facility] [facility] [place] [address] Care Team Providers Name Role Phone Nasir Velazquez MD Primary Care Provider [phone] Reason for Referral Diagnostic Procedure Outpatient - Closed Specialty Diagnoses / Procedures Referred By Contact Refer red To Contact Diagnoses Special screening for malignant neoplasms, colon Nasir Velazquez [facility] [address] [place], [place] [phone] Fax: Referral ID Status Reason Start Date Expiration Date Visits Requ ested Visits Authorized [id number] Closed 04/23/2013 10/20/2013 1 1 Reason for Visit Reason Comments Recheck Medication Encounter Details Date Type Department Care Team Description 04/23/[address] [facility] Nasir Velazquez l screening for malignant neoplasms, colon (Primary Dx); Clinic Candy Chow MD Adenomatous polyp of colon; [address] [facility] Esophageal reflux; [place], [place] CLINIC Hypertension goal BP (blood pressure) < 140/90 [id number] [address] [facility] [phone] [place] [address] Social History Tobacco Use Types Packs/Day Years Used Date Former Smoker Quit: 02/05/18 85 Smokeless Tobacco: Never Used Alcohol Use Standard Drinks/Week Comments Yes 1.7 (1 standard drink = 0.6 oz pure alco hol) moderate Alcohol Habits Answer Date Recorded How often do you have a drink containing alcohol? Not asked How many drinks containing alcohol do you have on a typical Not asked day when you are drinking? How often do you have six or more drinks on one occasion? 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 documented as of this encounter Last Filed Vital Signs Vital Sign Reading Time Taken Comments Blood Pressure 119/78 04/23/2013 11:00 AM CDT Pulse 71 04/23/2013 11:00 AM CDT Temperature 36.7 ??C (98 ??F) 04/23/2013 11:00 AM CDT Respiratory Rate - - Oxygen Saturation 96% 04/23/2013 11:00 AM CDT Inhaled Oxygen Concentration - - Weight 91.6 kg (202 lb) 04/23/2013 11:00 AM CDT Height 175.3 cm (5' 9) 04/23/2013 11:00 AM CDT Body Mass Index 29.83 04/23/2013 11:00 AM CDT documented in this encounter Patient Instructions Patient InstructionsNasir Velazquez MD - 04/23/2013 11:56 AM CDT Increase pantoprazole to 80mg daily. If no improvement in symptoms over the next 1-2 weeks, then call for prescription for omeprazole. documented in this encounter Progress Notes Nasir Velazquez MD - 04/23/2013 10:51 AM CDT SUBJECTIVE: Terry Montero is a 68 year old male who presents to clinic today for the following health issues: Hypertension Follow-up ?? Outpatient blood pressures are not being checked. ?? Low Salt Diet: low salt ?? Amount of exercise or physical activity: daily ?? Problems taking medications regularly: No ?? Medication side effects: none ?? Diet: low salt History Substance Use Topics ??? Smoking status: Former Smoker Quit date: 02/06/1984 ??? Smokeless tobacco: Never Used ??? Alcohol Use: 1.0 oz/week Comment: moderate GERD/Heartburn. ?? Duration: chronic issue ?? Description (location/character/radiation): stomach ?? Intensity: moderate ?? Accompanying signs and symptoms: food getting stuck: no nausea/vomiting/blood: no abdominal pain: YES black/tarry or bloody stools: no: ?? History (similar episodes/previous evaluation): pt states chronic issue ?? Precipitating or alleviating factors: worse with no particular food or drink. current NSAID/Aspirin use: no ?? Therapies tried and outcome: Omeprazole (Prilosec) and Protonix. Pt states 40 mg omeprazole worksbest. 3. chest pain- patient reports occasional left sided chest pain. Last only a few seconds. He has no radiation of the pain, no diaphoresis, no dyspnea, and no nausea or vomiting associated with the pain. It is not made worse by exertion. Problems list, allergies, social and family history, and past medical history, are all reviewed and updated in [facility]. Current Outpatient Prescriptions Medication Sig ??? fish oil-omega-3 fatty acids (FISH OIL) 1000 MG capsule Take 2 g by mouth daily ??? pantoprazole (PROTONIX) 40 MG enteric coated tablet Take 2 tablets (80 mg) by mouth daily Take 30-60 minutes before a meal. ??? Multiple Vitamins-Minerals (CENTRUM SILVER ULTRA MENS PO) Take 1 tablet by mouth daily ??? ibuprofen (ADVIL,MOTRIN) 600 MG tablet Take 1 tablet (600 mg) by mouth every 6 hours as needed for pain ??? hydrochlorothiazide (HYDRODIURIL) 25 MG tablet Take 1 tablet by mouth daily. ??? doxazosin (CARDURA) 4 MG tablet Take 1 tablet by mouth At Bedtime. ??? simvastatin (ZOCOR) 40 MG tablet Take 0.5 tablets by mouth At Bedtime. OBJECTIVE: BP 119/78 Pulse 71 Temp 98 ??F (36.7 ??C) (Oral) Ht 5' 9 (1.753 m) Wt 202 lb (91.627 kg) BMI 29.82 kg/m2 SpO2 96% GENERAL APPEARANCE: healthy, alert and no distress NECK: no adenopathy, no asymmetry, masses, or scars and thyroid normal to palpation. No carotid bruits. RESP: lungs clear to auscultation - no rales, rhonchi or wheezes CV: regular rates and rhythm, normal S1 S2, no S3 or S4 and no murmur, click or rub - ABD: soft, nontender, no hepatosplenomegaly. No abdominal bruits. EXT: No cyanosis, clubbing, swelling or edema in lower extremities. Assessment/Plan: V76.51 Special screening for malignant neoplasms, colon (primary encounter diagnosis) Comment: Plan: GASTROENTEROLOGY ADULT REFERRAL +/- PROCEDURE Due for colonoscopy -- last was clean but 10 years ago had adenomatous polyp of colon. 211.3 Adenomatous polyp of colon Comment: Plan: as above 401.9 Hypertension goal BP (blood pressure) < 140/90 Comment: Plan: well controlled, continue current regimen. Due for recheck of creatinine in June. Creatinine Date Value Range Status 01/10/2013 1.23 0.66 - 1.25 mg/dL Final ] 530.81 Esophageal reflux Comment: Plan: pantoprazole (PROTONIX) 40 MG enteric coated tablet patient did not feel that pantoprazole controls symptoms as well as omeprazole. If not improved on 80mg of pantoprazole, then change back to omeprazole. If still symptomatic, then would recommend EGD. Patient Instructions Increase pantoprazole to 80mg daily. If no improvement in symptoms over the next 1-2 weeks, then call for prescription for omeprazole. documented in this encounter Nursing Notes 04/23/2013 11:00 AM CDT >> Phoenix Dubois CMA SunApr 23, 2013 11:04 AM Patient presents with: Recheck Medication Initial BP 119/78 Pulse 71 Temp 98 ??F (36.7 ??C) (Oral) Ht 5' 9 (1.753 m) Wt 202 lb (91.627 kg) BMI 29.82 kg/m2 SpO2 96% Estimated Body mass index is 29.82 kg/(m^2) as calculated from thefollowing: Height as of this encounter: 5' 9(1.753 m). Weight as of this encounter: 202 lb(91.627 kg). BP completed using cuff size: large Health maintenance- colonoscopy due and order pending. Phoenix Dubois CMA documented in this encounter Plan of Treatment Scheduled Referrals Name Type Priority Associated Diagnoses Order S [facility] GASTROENTEROLOGY ADULT Referral Routine Special screening for Ordered: 04/23/2013 REFERRAL +/- PROCEDURE malignant neoplasm s, colon documented as of this encounter Visit Diagnoses Diagnosis Special screening for malignant neoplasm s, colon - Primary Adenomatous polyp of colon Benign neoplasm of colon Esophageal reflux Hypertension goal BP (blood pressure) < 140/90 Unspecified essential hypertension documented in this encounter Care Teams Flux Core Welder Relationship Specialty Start Date End Date Nasir Velazquez MD PCP - General 02/18/99 10/06/13 [place] [id number] [place] [address] documented as of this encounter
--- OUTSIDE RECORDS SUMMARY | 2021-11-04 10:37 | XMS_ITS | Encounter Summary ---
:1945 Author Organization [place] Address [address] [facility] [place] [address] Care Team Providers Name Role Phone Raghavendra Deras MD Primary Care Provider Unavailable Reason for Visit Reason Comments Urgent Care Hand Injury left hand ring finger. cut o n window glass about 30 min ago Encounter Details Date Type Department Care Team Description 11/23/[address] 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 Happened today accident at home. OBJECTIVE: Blood pressure 127/81, pulse 72, resp. rate 16, SpO2 100 %. Skin; finger lt hand ring lateral medial aspect of the finger . There is a laceration 2 cm . It is well approximated. ASSESSMENT: 1. Laceration; PLAN: 1. Taken to the procedure room there the area was cleaned. Steri strips were placed. Wound closed. Dressing placed. 2. Told to keep clean and dry and strips would fall off. documented in this encounter Plan of Treatment Not on filedocumented as of this encounter Visit Diagnoses Diagnosis Laceration of finger, initial encounter - Primary documented in this encounter Care Teams Kiln Burner Relationship Specialty Start Date End Date Raghavendra Deras MD PCP - General Family Practice 10/07/13 documented as of this encounter
--- OUTSIDE RECORDS SUMMARY | 2021-11-04 10:37 | XMS_ITS | Encounter Summary ---
:1945 Author Organization [place] Address [facility] [place] [address] Care Team Providers Name Role Phone Nasir Velazquez MD Primary Care Provider [phone] Reason for Visit Reason Comments ER F/U Encounter Details Date Type Department Care Team Description 01/15/[address] [facility] Nasir Velazquez Abdomi nal pain, other specified site (Primary Dx); Clinic [place] MD Geraldo Gastroenteritis [address] 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 documented as of this encounter Last Filed Vital Signs Vital Sign Reading Time Taken Comments Blood Pressure 130/86 01/15/2013 11:15 AM EXTRUSION SUPERVISOR Pulse 71 01/15/2013 11:15 AM EXTRUSION SUPERVISOR Temperature 37.1 ??C (98.7 ??F) 01/15/2013 11:15 AM EXTRUSION SUPERVISOR Respiratory Rate - - Oxygen Saturation 95% 01/15/2013 11:15 AM EXTRUSION SUPERVISOR Inhaled Oxygen Concentration - - Weight 90.7 kg (200 lb) 01/15/2013 11:15 AM EXTRUSION SUPERVISOR Height 175.3 cm (5' 9) 01/15/2013 11:15 AM EXTRUSION SUPERVISOR Body Mass Index 29.53 01/15/2013 11:15 AM EXTRUSION SUPERVISOR documented in this encounter Progress Notes Nasir Velazquez MD - 01/15/2013 11:07 AM CST SUBJECTIVE: Terry Montero is a 67 year old male who presents to clinic today for the following health issues: ED/UC Followup: Facility: [facility] Date of visit: 01-09-13 Reason for visit: abdominal pain Current Status: no cramping since. hydrate control tender. symptoms most consistent with viral gastroenteritis vs food poisoning. Improving, has tolerated full diet recently. Problems list, allergies, social and family history, and past medical history, are all reviewed and updated in [facility]. Current Outpatient Prescriptions Medication Status Sig ??? [place]-3 Fatty Acids (FISH OIL PO) Active Take 300 mg by mouth daily ??? Multiple Vitamins-Minerals (CENTRUM SILVER ULTRA MENS PO) Active Take 1 tablet by mouth daily ??? ibuprofen (ADVIL,MOTRIN) 600 MG tablet Active Take 1 tablet (600 mg) by mouth every 6 hours as needed for pain ??? HYDROcodone-acetaminophen (NORCO) 5-325 MG per tablet Active Take 1-2 tablets by mouth every 4 hours as needed for pain ??? hydrochlorothiazide (HYDRODIURIL) 25 MG tablet Active Take 1 tablet by mouth daily. ??? doxazosin (CARDURA) 4 MG tablet Active Take 1 tablet by mouth At Bedtime. ??? simvastatin (ZOCOR) 40 MG tablet Active Take 0.5 tablets by mouth At Bedtime. ??? pantoprazole (PROTONIX) 40 MG enteric coated tablet Active Take 1 tablet (40 mg) by mouth daily Take 30-60 minutes before a meal. OBJECTIVE: BP 130/86 Pulse 71 Temp 98.7 ??F (37.1 ??C) (Oral) Ht 5' 9 (1.753 m) Wt 200 lb (90.719 kg) BMI 29.53 kg/m2 SpO2 95% GENERAL APPEARANCE: healthy, alert and no distress CV: regular rate and rhythm, normal S1 S2. no murmur, rub or gallop. RESP: Chest is clear, no wheezing or rales. GI: Abdomen reveals mild tenderness in the epigastric area, without rebound, guarding, mass or organomegaly. Abdomen is soft and bowel sounds are normal. Assessment/Plan: 789.09 Abdominal pain, other specified site (primary encounter diagnosis) Comment: Plan: 558.9 Gastroenteritis Comment: Plan: follow up hospitalization. symptoms continue to improve, though still some residual tenderness. As long as he completely recovers, I don't feel that further workup is needed at this time. follow up PRN. USION SUPERVISOR documented in this encounter Nursing Notes 01/15/2013 11:00 AM CST >> PHOENIX DUBOIS Wed Jan 15, 2013 11:16 AM Patient presents with: ER F/U Initial BP 130/86 Pulse 71 Temp 98.7 ??F (37.1 ??C) (Oral) Ht 5' 9 (1.753 m) Wt 200 lb (90.719 kg) BMI 29.53 kg/m2 SpO2 95% Estimated Body mass index is 29.53 kg/(m^2) as calculated from the following: Height as of this encounter: 5' 9(1.753 m). Weight as of this encounter: 200 lb(90.719 kg). BP completed using cuff size: large Phoenix Dubois PLANT CONTROLLER documented in this encounter Plan of Treatment Not on filedocumented as of this encounter Visit Diagnoses Diagnosis Abdominal pain, other specified site - P rimary Gastroenteritis Other and unspecified noninfectious dee roenteritis and colitis documented in this encounter Care Teams Tool Clerk Relationship Specialty Start Date End Date Nasir Velazquez MD PCP - General 02/18/99 10/06/13 [id number] [place] [address] documented as of this encounter
--- OUTSIDE RECORDS SUMMARY | 2021-11-04 10:37 | XMS_ITS | Encounter Summary ---
:1945 Author Organization [facility] Address [address] [facility] [place] [address] Care Team Providers Name Role Phone Nasir Velazquez MD Primary Care Provider [phone] Reason for Visit Reason Comments Abdominal Pain Encounter Details Date Type Department Care Team Description 01/09/2013 Emergency [facility] Mckay Lizama Abdomina l pain, other [facility] t MD [place] specified site [address] [facility] EMERGENCY PHYSICIANS (Primary Dx) [place], [place] [address] [address] [facility] [phone] [place], [place] [address] (Wo rk) Social History [...] at Date Recorded Male 01/15/2018 11:39 PM WELL SERVICE FLOORPERSON documented as of this encounter Last Filed Vital Signs Vital Sign Reading Time Taken Comments Blood Pressure 141/84 01/09/2013 8:15 PM WELL SERVICE FLOORPERSON Pulse - - Temperature 36.2 ??C (97.1 ??F) 01/09/2013 5:34 PM WELL SERVICE FLOORPERSON Respiratory Rate 18 01/09/2013 6:30 PM WELL SERVICE FLOORPERSON Oxygen Saturation 97% 01/09/2013 7:00 PM WELL SERVICE FLOORPERSON Inhaled Oxygen Concentration - - Weight - - Height - - Body Mass Index - - documented in this encounter Discharge Instructions Discharge InstructionsMckay Lizama MD - 01/09/2013 8:24 PM WELL SERVICE FLOORPERSON Discharge Instructions Abdominal Pain Abdominal pain can be caused by many things. Your evaluation today does not show the exact cause foryour pain. Your doctor today has decided that it is unlikely your pain is due to a life threatening problem, or a problem requiring surgery or hospital admission. Sometimes those problems cannot be found right away, so it is very important that you follow up as directed. Sometimes only the changes which occur over time allow the cause of your pain to be found. Return to the Emergency Department for a recheck in 8-12 hours if your pain continues. If your pain gets worse, changes in location, or feels different, return to the Emergency Department right away. ADULTS: Return to the Emergency Department right away if: You get an oral temperature above 102oF or as directed by your doctor. You have blood in your stools (bright red or black, tarry stools). You keep throwing up or can???t drink liquids. You see blood when you throw up. You can???t have a bowel movement or you can???t pass gas. Your stomach gets bloated or bigger. Your skin or the whites of your eyes look yellow. You faint. You have bloody, frequent or painful urination. You have new symptoms or anything that worries you. CHILDREN: Return to the Emergency Department right away if your child has any of the above-listed symptoms or the following: Pushes your hand away or screams/cries when his/her belly is touched. You notice your child is very fussy or weak. Your child is very tired and is too tired to eat or drink. Your child is dehydrated. Signs of dehydration can be: o Your has had no wet diapers in 4-5 hours. o Your older child has not passed urine in 6-8 hours. o Your or child starts to have dry mouth and lips, or no saliva or tears. WOMEN: Return to the Emergency Department right away if you have any of the above-listed symptoms or the following: You have bleeding, leaking fluid or passing tissue from the vagina You have worse pain or cramping, or pain in your shoulder or back. You have vomiting that will not stop. You have painful or bloody urination. You have a temperature of 100oF or more. Your baby is not moving as much as usual. You faint. You get a bad headache with or without eye problems and abdominal pain. You have a convulsion or seizure. You have unusual discharge from your vagina and abdominal pain. Abdominal pain is pretty common during . Your pain may or may not be related to your . You should follow-up closely with your OB doctor so they can evaluate you and your baby. Until you follow-up with your regular doctor, do the following: Avoid sex and do not put anything in your vagina. Drink clear fluids. Only take medications approved by your doctor. MORE INFORMATION: Appendicitis: A possible cause of abdominal pain in any person who still has their appendix is acuteappendicitis. Appendicitis is often hard to diagnose. Testing does not always rule out early appendicitis or other causes of abdominal pain. Close follow-up with your doctor and re-evaluations may be needed to figure out the reason for your abdominal pain. Follow-up: It is very important that you make an appointment with your clinic and go to the appointment. If you do not follow-up with your primary doctor, it may result in missing an important development which could result in permanent injury or disability and/or lasting pain. If there is any problemkeeping your appointment, call your doctor or return to the Emergency Department. Medications: Take your medications as directed by your doctor today. Before using [id number] medications, ask your doctor and make sure to take the medications as directed. If you have any questions about medications, ask your doctor. Diet: Resume your normal diet as much as possible, but do not eat fried, fatty or spicy foods while you have pain. Do not drink alcohol or have caffeine. Do not smoke tobacco. Remember that you can always come back to the Emergency Department if you are not able to see your normal doctor in the amount of time listed above, if you get any new symptoms, or if there is anythingthat worries you. SERVICE FLOORPERSON documented in this encounter Medications at Time of Discharge Medication Sig Dispensed Refills Start Date End Date ondansetron (ZOFRAN ODT) 4 Take 1 tablet (4 10 tablet 0 06/201201/12/2013 MG disintegrating tablet mg) by mouth every 8 hours as needed for nausea doxazosin (CARDURA) 4 MG Take 1 tablet by 90 tablet 3 08/0710/07/2013 tabletIndications: mouth At Hypertrophy of prostate Bedtime. without urinary obstruction and other lower urinary tract symptoms (LUTS) fish oil-omega-3 fatty Take 1 capsule 180 capsule 4 08/12/19 11 01/10/2013 acids (FISH OIL) 1000 MG by mouth 2 times capsuleIndications: daily. Hyperlipidemia LDL goal <130 fluticasone (FLONASE) 50 [place] 1-2 sprays 1 Package 3 03/2101/10/2013 MCG/ACT nasal into both sprayIndications: Chronic nostrils daily rhinitis as needed for rhinitis. Glucosamine HCl 1000 MG Take by mouth 2 0 01/15/2013 TABS times daily. hydrochlorothiazide Take 1 tablet by 90 tablet 3 08/07/2012 10/07/2013 (HYDRODIURIL) 25 MG mouth daily. tabletIndications: Hypertension goal BP (blood pressure) < 140/90 HYDROcodone-acetaminophen Take 1-2 tablets 15 tablet 0 06/201204/23/2013 (NORCO) 5-325 MG per tablet by mouth every 4 hours as needed for pain ibuprofen (ADVIL,MOTRIN) Take 1 tablet 30 tablet 1 01/10/20 13 10/07/2013 600 MG tablet (600 mg) by mouth every 6 hours as needed for pain Multiple Vitamin (ONE-A-DAY Take 1 tablet by 30 tablet 11 01/10/2013 MENS) TABSIndications: mouth daily. Preventative health care omeprazole (PRILOSEC) 40 MG Take 1 capsule 90 capsule 3 04/201201/16/2013 capsuleIndications: by mouth daily. Esophageal reflux simvastatin (ZOCOR) 40 MG Take 0.5 tablets 45 tablet 4 04/201209/08/2013 tabletIndications: by mouth At Hyperlipidemia LDL goal Bedtime. <130 documented as of this encounter ED Notes Keily Cates RN - 01/09/2013 7:56 PM CST Bladder scan 214ml post void. SERVICE FLOORPERSON Mckay Lizama MD - 01/09/2013 5:38 PM CST History Chief Complaint:' Abdominal Pain HPI Terry Montero is a 67 year old male who presents with his for evaluation of abdominal pain. He reports experiencing intermittent abdominal pain since last night which acutely worsened this afternoon to 9/10 severity. He states the pain is cramping-like in nature with episodes occuring every 2-3 minutes and lasting for approximately 5 seconds. The pain has no exacerbating or alleviating factors. He has not taken anything for his pain yet. His last bowel movement was 2-3 hours ago and was normal with no diarrhea or blood in stool. He denies chills, diaphoresis, fever, chest pain, nausea, vomiting, urinary symptoms, testicular pain or scrotal swelling, or back pain. Allergies: Mometasone Furoate Monohydrate Quinazolines Medications: Hydrochlorothiazide Omeprazole Doxazosin Simvastatin Fluticasone Glucosamine Fish oil Multivitamin Past Medical History: Hypertension Acute duodenal ulcer with hemorrhage Hyperlipidemia GERD Pulmonary nodule Past Surgical History: Colonoscopy Family History: Heart complications - Brothers Cancer - Sister, Brother Social History: The patient was accompanied to the ED by his . Smoking Status: Former Smoker - Quit date 02/06/1984 Smokeless Tobacco: Never Used Alcohol Use: Yes - moderately Marital Status: Review of Systems Constitutional: Negative for fever, chills and diaphoresis. Cardiovascular: Negative for chest pain. Gastrointestinal: Positive for abdominal pain. Negative for nausea, vomiting, diarrhea, constipationand blood in stool. Genitourinary: Negative for dysuria, urgency, frequency, hematuria, scrotal swelling, difficulty urinating and testicular pain. Musculoskeletal: Negative for back pain. All other systems reviewed and are negative. Physical Exam First Vitals: BP: 183/94 mmHg Heart Rate: 76 Temp: 97.1 ??F (36.2 ??C) Resp: 18 SpO2: 97 % Physical Exam Nursing note and vitals reviewed. Constitutional: He is oriented to person, place, and time. He appears well-developed. HENT: Head: Normocephalic and atraumatic. Right Ear: External ear normal. Mouth/Throat: Oropharynx is clear and moist. Eyes: Conjunctivae normal and EOM are normal. Pupils are equal, round, and reactive to light. Neck: Normal range of motion. Neck supple. No JVD present. Cardiovascular: Normal rate, regular rhythm and normal heart sounds. Pulmonary/Chest: Effort normal and breath sounds normal. Abdominal: Soft. Bowel sounds are normal. He exhibits no distension. There is no hepatosplenomegaly.There is generalized tenderness. There is no rebound and no CVA tenderness. No hernia. Musculoskeletal: Normal range of motion. Lymphadenopathy: He has no cervical adenopathy. Neurological: He is alert and oriented to person, place, and time. He displays normal reflexes. No cranial nerve deficit. He exhibits normal muscle tone. Coordination normal. Skin: Skin is warm and dry. Psychiatric: He has a normal mood and affect. His behavior is normal. Judgment normal. Emergency Department Course Imaging: Radiographic findings were communicated with the patient and his who voiced understanding of the findings. CT Abdomen Pelvis w contrast: Colonic diverticulosis with no evidence of diverticulitis. Per radiology. Laboratory: CBC: All WNL (WBC 8.0, HGB 13.6, PLT 168) BMP: Potassium 3.3 low, o/w WNL (Creatinine 1.02) Hepatic panel: All WNL Lactic acid: 0.9 Lipase: 159 CRP inflammation: 8.4 high UA: All negative Interventions: 1757 NS 1000 mL IV 1758 Zofran 4 mg IV 1759 Toradol 15 mg IV 1800 Morphine 4 mg IV 1920 NS 64 mL IV 1921 Isovue 94 mL IV Emergency Department Course: 5:40 PM: Nursing notes and vitals reviewed. I performed an exam of the patient as documented above. IV inserted and blood drawn. The patient was placed on continuous blood pressure monitoring and pulse oximetry. The patient provided a urine sample here in the emergency department. This was sent for laboratory testing, findings above. The patient was sent for an abdomen/pelvis CT scan while in the emergency department, results above. The patient reported good relief after the above interventions. The patient was discharged with prescriptions for Ibuprofen, [place], and Zofran. Findings and plan explained to the Patient and spouse. Patient discharged home, status improved, with instructions regarding supportive care, medications, and reasons to return as well as the importance of close follow-up was reviewed. Impression & Plan Medical Decision Making: The patient presents with abdominal pain. The description of pain is cramp-like due to colicky pain.The pain is atypical. Due to his age, however, extensive evaluation was undertaken for abdominal pain including CT which shows no signs of bowel obstruction, no signs of renal colic, no signs of colitis or diverticulitis. The patient was discussed the results of the CT and the patient was offered medication for pain as a bridge to followup with his regular doctor. No clear cause for abdominal pain was found. The patient did retain about 200 ccs of urine after urinalysis and I wonder about bladder spasm ad urinary retention. The patient was recommended followup with his primary doctor to start and possible referral to urology as needed Discharge diagnosis: 1. Abdominal pain of unclear etiology ITiffanie, am serving as a scribe on 01/09/2013 at 5:40 PM to personally document services performed by Dr. Lizama based on my observations and the provider's statements to me. Mckay Lizama MD 01/12/13 1417 SERVICE FLOORPERSON documented in this encounter Miscellaneous Notes Initial Assessments - Bebeto, Non-Provider - 01/15/2013 1:12 PM CST SERVICE FLOORPERSON documented in this encounter Plan of Treatment Not on filedocumented as of this encounter Procedures Procedure Name Priority Date/Time Associated Comments Diagnosis ROUTINE UA WITH STAT 01/09/2013 7:33 PM Result s for this MICROSCOPIC WELL SERVICE FLOORPERSON procedure are i n the results section. CT ABDOMEN PELVIS W STAT 01/09/2013 7:23 PM Re sults for this CONTRAST WELL SERVICE FLOORPERSON procedure are i n the results section. CBC WITH PLATELETS & STAT 01/09/2013 5:55 PM R esults for this DIFFERENTIAL WELL SERVICE FLOORPERSON procedure are i n the results section. LIPASE STAT 01/09/2013 5:55 PM Results f or this WELL SERVICE FLOORPERSON procedure are i n the results section. LACTIC ACID STAT 01/09/2013 5:55 PM Results f or this WELL SERVICE FLOORPERSON procedure are i n the results section. HEPATIC FUNCTION STAT 01/09/2013 5:55 PM Resul ts for this PANEL WELL SERVICE FLOORPERSON procedure are i n the results section. CRP INFLAMMATION STAT 01/09/2013 5:55 PM Resul ts for this WELL SERVICE FLOORPERSON procedure are i n the results section. BASIC METABOLIC PANEL STAT 01/09/2013 5:55 PM Results for this WELL SERVICE FLOORPERSON procedure are i n the results section. documented in this encounter Results UA with Microscopic (01/09/2013 7:33 PM WELL SERVICE FLOORPERSON) [facility] Method Time Signature Color Urine Light Yellow [facility] Appearance Urine Clear [facility] Glucose Urine Negative NEG mg/dL [facility] Bilirubin Urine Negative NEG [facility] Ketones Urine Negative NEG mg/dL [facility] Specific [place] 1.018 1.003 - [place] Urine 1.035 [facility] Blood Urine Negative NEG [facility] pH Urine 6.5 5.0 - 7.0 [place] pH [facility] Protein Albumin Negative NEG mg/dL [facility] Urobilinogen Normal 0.0 - 2.0 [place] mg/dL mg/dL [facility] Nitrite Urine Negative NEG [facility] Leukocyte Negative NEG [place] Esterase Urine [facility] Source Midstream [facility] WBC Urine <1 0 - 2 [facility] RBC Urine 2 0 - 2 [facility] Specimen Anatomical Collection Method Collection Time Receive d Time (Source) Location / / Volume Laterality Urine specimen URINE SPECIMEN 01/09/2013 7:33 PM 01/09 7:35 (specimen) OBTAINED BY CLEAN WELL SERVICE FLOORPERSON PM WELL SERVICE FLOORPERSON CATCH PROCEDURE / Unknown Mckay Lizama MD LAB - URINE ORDERABLES Performing Organization Address City/State/ZIP Code Phon e Number [facility] [address], [place] [address] [facility] [address] Abdomen Pelvis w Contrast (01/09/2013 7:23 PM WELL SERVICE FLOORPERSON) Anatomical Region Laterality Modality Abdomen/Pelvis, SUBRAD CT BODY, UMP CT ABDOMEN PELVIS Computed Tomography Specimen (Source) Anatomical Location Collection Method / Collectio n Time Received Time / Laterality Volume Impressions 01/09/2013 7:40 PM WELL SERVICE FLOORPERSON IMPRESSION: Colonic diverticulosis with no evidence of diverticulitis. ?? LC JIMÉNEZ MD Narrative 01/09/2013 7:40 [address]ICE FLOORPERSON [address] ABDOMEN AND PELVIS WITH CONTRAST ??01/09/2013 7:23 PM HISTORY: Abdominal pain. COMPARISON: None. TECHNIQUE: Routine transverse CT imaging of the abdomen and pelvis was performed following the uneventful admin istration of oral and 94 mL Isovue 370 intravenous contrast. FINDINGS: The visualized lung bases are clear. The liver, spleen, pancreas, gallbladder, adrenal glands, k idneys, and bladder are normal. No enlarged lymph node or other abnormal mass is demonstrated. No free fluid is seen. No free intraperi toneal gas is identified. There are numerous diverticula throughou t the colon, especially the sigmoid colon. There is no evidence of d iverticulitis or other gastrointestinal tract pathology. There is a normal-appearing appendix. There is mild calcification in the vascular structures. There are degenerative changes of the sp ine. The osseous structures are otherwise unremarkable. No abdominal or pelvic wall pathology is demonstrated. Procedure Note Lc Jiménez MD - 01/09/2013Fo rmatting of this note might be different from the original. CT ABDOMEN AND PELVIS WITH CONTRAST 01/09 7:23 PM HISTORY: Abdominal pain. COMPARISON: None. TECHNIQUE: Routine transverse CT imaging of the abdomen and pelvis was performed following the uneventful admin istration of oral and 94 mL Isovue 370 intravenous contrast. FINDINGS: The visualized lung bases are clear. The liver, spleen, pancreas, gallbladder, adrenal glands, k idneys, and bladder are normal. No enlarged lymph node or other abnormal mass is demonstrated. No free fluid is seen. No free intraperi toneal gas is identified. There are numerous diverticula throughou t the colon, especially the sigmoid colon. There is no evidence of d iverticulitis or other gastrointestinal tract pathology. There is a normal-appearing appendix. There is mild calcification in the vascular structures. There are degenerative changes of the sp ine. The osseous structures are otherwise unremarkable. No abdominal or pelvic wall pathology is demonstrated. IMPRESSION IMPRESSION: Colonic diverticulosis with no evidence of diverticulitis. LC JIMÉNEZ MD Mckay Lizama MD IMG CT ORDERABLES (ABNORMAL) CRP inflammation (01/09/2013 5:55 PM WELL SERVICE FLOORPERSON) Patholo gist Method Time Signature CRP Inflammation 8.4 (H) 0.0 - 8.0 [place] mg/L [facility] Specimen Anatomical Collection Method Collection Time Receive d Time (Source) Location / / Volume Laterality Blood specimen 01/09/2013 5:55 PM 013 6:03 (specimen) WELL SERVICE FLOORPERSON PM WELL SERVICE FLOORPERSON Mckay Lizama MD LAB - BLOOD ORDERABLES Performing Organization Address City/[facility]/ZIP Code Phon e Number [facility] [address], [place] [phone] LAB Lipase (01/09/2013 5:55 PM WELL SERVICE FLOORPERSON) athologist Signature Lipase 159 20 - 250 [facility] U/L [facility] Specimen Anatomical Collection Method Collection Time Receive d Time (Source) Location / / Volume Laterality Blood specimen 01/09/2013 5:55 PM 013 6:03 (specimen) WELL SERVICE FLOORPERSON PM WELL SERVICE FLOORPERSON Mckay Lizama MD LAB - BLOOD ORDERABLES Performing Organization Address City/[facility]/ZIP [facility] Phon e Number [facility] [address], [place] [address] [phone] [place] [address] LAB Lactic acid (01/09/2013 5:55 PM WELL SERVICE FLOORPERSON) athologist Signature Lactic Acid 0.9 0.7 - 2.1 [place] mmol/L [facility] Specimen Anatomical Collection Method Collection Time Receive d Time (Source) Location / / Volume Laterality Blood specimen 01/09/2013 5:55 PM 013 6:03 (specimen) WELL SERVICE FLOORPERSON PM WELL SERVICE FLOORPERSON Mckay Lizama MD LAB - BLOOD ORDERABLES Performing Organization Address City/[facility] Phon e Number [facility] [address], [place] [address] [phone] [place] [address] LAB Hepatic panel (01/09/2013 5:55 PM WELL SERVICE FLOORPERSON) athologist Signature Bilirubin 0.0 0.0 - 0.3 [place] Conjugated mg/dL [facility] Bilirubin Delta 0.1 0.0 - 0.4 [place] mg/dL [facility] Bilirubin Total 0.7 0.2 - 1.3 [place] mg/dL [facility] Albumin 4.5 3.3 - 4.9 [place] g/dL [facility] Protein Total 7.8 6.8 - 8.8 [place] g/dL [facility] Alkaline 102 40 - 150 [place] Phosphatase U/L [facility] ALT 49 0 - 70 U/L [facility] AST 34 0 - 45 U/L [facility] Specimen Anatomical Collection Method Collection Time Receive d Time (Source) Location / / Volume Laterality Blood specimen 01/09/2013 5:55 PM 013 6:03 (specimen) WELL SERVICE FLOORPERSON PM WELL SERVICE FLOORPERSON Mckay Lizama MD LAB - BLOOD ORDERABLES Performing Organization Address City/State/ZIP Code Phon e Number [facility] [address], [place] [address] [facility] (ABNORMAL) Basic metabolic panel (01/09/2013 5:55 PM WELL SERVICE FLOORPERSON) P athologist Signature Sodium 138 133 - 144 [place] mmol/L [facility] Potassium 3.3 (L) 3.4 - 5.3 [place] mmol/L [facility] Chloride 100 94 - 109 [place] mmol/L [facility] Carbon Dioxide 28 20 - 32 [place] mmol/L [facility] Anion Gap 11 6 - 17 [place] mmol/L [facility] Glucose 96 60 - 99 [place] mg/dL [facility] Urea Nitrogen 15 7 - 30 [place] mg/dL [facility] Creatinine 1.02 0.66 - [facility] 1.25 mg/dL [facility] GFR Estimate 73 >60 [place] mL/min/[address] [place] [address] LAB GFR Estimate If 88 >60 [place] Black mL/min/1.[address] [place] [address] LAB Calcium 9.3 8.5 - 10.4 [place] mg/dL [facility] Specimen Anatomical Collection Method Collection Time Receive d Time (Source) Location / / Volume Laterality Blood specimen 01/09/2013 5:55 PM 013 6:03 (specimen) WELL SERVICE FLOORPERSON PM WELL SERVICE FLOORPERSON Mckay Lizama MD LAB - BLOOD ORDERABLES Performing Organization Address City/State/ZIP Code Phon e Number [facility] [address] [place], [place] [address] [facility] (ABNORMAL) CBC with platelets differential (01/09/2013 5:55 PM WELL SERVICE FLOORPERSON) [facility] gist Method Time Signature WBC 8.0 4.0 - [place] 11.0 [facility] 10e9[facility] RBC Count 4.61 4.4 - 5.9 [place] 10e12/L [facility] Hemoglobin 13.6 13.3 - [place] 17.7 g/dL [facility] Hematocrit 39.4 (L) 40.0 - [place] 53.0 % [facility] MCV 86 78 - 100 [place] fl [facility] MCH 29.5 26.5 - [place] 33.0 pg [facility] MCHC 34.5 31.5 - [place] 36.5 g/dL [facility] RDW 13.4 10.0 - [place] 15.0 % [facility] Platelet Count 168 150 - 450 [place] 10e9[facility] Diff Method Automated [facility] % Neutrophils 74.1 % [facility] % Lymphocytes 17.2 % [facility] % Monocytes 7.5 % [facility] % Eosinophils 0.6 % [facility] % Basophils 0.3 % [facility] % Immature 0.3 % [place] Granulocytes [facility] Absolute 5.9 1.6 - 8.3 [place] Neutrophil 10e9/L [facility] Absolute 1.4 0.8 - 5.3 [place] Lymphocytes 10e9/L [facility] Absolute 0.6 0.0 - 1.3 [place] Monocytes 10e9/[facility] Absolute 0.1 0.0 - 0.7 [place] Eosinophils [address] [place] [address] LAB Absolute 0.0 0.0 - 0.2 [place] Basophils [address] [place] [address] LAB Abs Immature 0.0 0 - 0.4 [place] Granulocytes [address] [place] [address] LAB Specimen Anatomical Collection Method Collection Time Receive d Time (Source) Location / / Volume Laterality Blood specimen 01/09/2013 5:55 PM 013 6:03 (specimen) WELL SERVICE FLOORPERSON PM WELL SERVICE FLOORPERSON Mkcay Lziama MD LAB - BLOOD ORDERABLES Performing Organization Address City/State/ZIP Code Phon e Number [facility] [address] [place], [place] [address] [facility] documented in this encounter Visit Diagnoses Diagnosis Abdominal pain, other specified site - P rimary documented in this encounter Administered Medications Inactive Administered Medications - up to 3 most recent administrations Medication Order MAR Action Action Date Dose Rate Site iohexol (OMNIPAQUE) 140 mg/mL Given 01/09/2013 6:39 PM WELL SERVICE FLOORPERSON 25 mL s solution 25 mL 25 mL, Oral, EVERY 30 MIN, First dose on Jenn 01/09/13 at 1800, For 2 doses Given 01/09/2013 5:52 PM WELL SERVICE FLOORPERSON 25 mLs iopamidol (ISOVUE-370) 76% solution 500 mL Given 01/09/2013 7:21 PM WELL SERVICE FLOORPERSON 94 mLs 500 mL, Intravenous, ONCE, On Jenn 01/09/13 at 1915, For 1 dose ketorolac (TORADOL) injection 15 mg Given 01/09/2013 5:59 PM WELL SERVICE FLOORPERSON 15 mg 15 mg, Intravenous, ONCE, On Jenn 01/09/13 at 1800, For 1 dose, Do not give within 6 hours of Ibuprofen. 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 sodium chloride 0.9 % BOLUS New Bag 01/09/2013 5:57 PM WELL SERVICE FLOORPERSON 1,000 m Ls 1000 mL/hr 1,000 mL Intravenous, 1,000 mL, ONCE, at 1,000 mL/hr, Administer over 1 Hours, On Jenn 01/09/13 at 1800, For 1 dose sodium chloride 0.9 % BOLUS 1,000 mL New Bag 01/09/2013 7:20 PM WELL SERVICE FLOORPERSON 64 mLs Intravenous, 1,000 mL, ONCE, On Jenn 01/09/13 at 1915, For 1 dose documented in this encounter Active and Recently Administered Medications Times are shown in WELL SERVICE FLOORPERSON. Scheduled Medication Order 01/07/2013 01/08/2013 01/09/2013 iohexol (OMNIPAQUE) 140 mg/mL solution 25 mL (COMPLETED) 175 (Given - Provider: Janel Devi RN)183 (Given - Provider: Janel Devi RN) 25 mL, Oral, EVERY 30 MIN, First dose on Jenn 01/09/13 at 1800, Fo r 2 doses iopamidol (ISOVUE-370) 76% solution 500 mL (COMPLETED) 192 (Given - Provider: Arin Pandya - Comment: bulk) 500 mL, Intravenous, ONCE, Jenn 01/09/13 at 1915, For 1 dose ketorolac (TORADOL) injection 15 mg (COMPLETED) 175 (Given - Provider: Janel Devi RN) 15 mg, Intravenous, ONCE, Jenn 01/09/13 at 1800, For 1 dose, Do not give within 6 hours of Ibuprofen. sodium chloride 0.9 % BOLUS 1,000 mL (COMPLETED) 175 (New Bag - Provider: Janel Devi RN)191 (Stopped - Provider: Janel Devi RN) Intravenous, 1,000 mL, ONCE, at 1,000 mL /hr, for 1 Hours, Jenn 01/09/13 at 1800, For 1 dose sodium chloride 0.9 % BOLUS 1,000 mL (COMPLETED) 192 (New Bag - Provider: Arin Pandya - Comment: bulk)192 (Stopped - Provider: Arin Pandya) Intravenous, 1,000 mL, ONCE, Jenn 13 at 1915, For 1 dose PRN Medication Order 01/07/2013 01/08/2013 01/09/2013 morphine (PF) injection 4 mg (CANCELED) 1800 (Given - Provider: Janel Devi RN) 4 mg, Intravenous, EVERY 15 MIN PRN, mod erate to severe pain, Starting Jenn 12/5/13 at 1745, For 3 doses ondansetron (ZOFRAN) injection 4 mg (CANCELED) 1758 (Given - Provider: Janel Rouse V, RN) 4 mg, Intravenous, EVERY 30 MIN PRN, suha sea, vomiting, for 2 Minutes, Starting Jenn 01/09/13 at 1745, For 3 doses, May repeat in 30 minutes as needed, up to 3 doses. documented in this encounter Care Teams Electronics Engineer Relationship Specialty Start Date End Date Nasir Velazquez MD PCP - General 02/18/99 10/06/13 [facility] [address] [place] [address] documented as of this encounter
--- OUTSIDE RECORDS SUMMARY | 2021-11-04 10:37 | XMS_ITS | Encounter Summary ---
:1945 Author Organization [facility] Address [address] [facility] [place] [address] Care Team Providers Name Role Phone Raghavendra Deras MD Primary Care Provider Unavailable Reason for Visit Reason Comments Edema swollen ankles x 4-6 weeks Refill Request would like [facility] Encounter Details Date Type Department Care Team Description 10/01/2014 Office Visit [facility] Raghavendra Deras Hypertens ion goal BP (blood pressure) < 140/90 (Primary Dx); Clinic Candy Alan MD Hyperlipidemia LDL goal <130 ; [id number] [facility] History of peptic ulcer dise ase; [place], [place] Benign prostat ic hypertrophy with lower urinary tract symptoms (LUTS); [id number] Need for vaccination against Streptococcus pneumoniae [phone] Social History Tobacco Use Types Packs/Day Years [...] at Date Recorded 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[employer] documented as of this encounter Last Filed Vital Signs Vital Sign Reading Time Taken Comments Blood Pressure 122/74 10/01/2014 10:48 AM CDT Pulse 61 10/01/2014 10:48 AM CDT Temperature 36.8 ??C (98.2 ??F) 10/01/2014 10:48 AM CDT Respiratory Rate - - Oxygen Saturation 97% 10/01/2014 10:48 AM CDT Inhaled Oxygen Concentration - - Weight 91.2 kg (201 lb) 10/01/2014 10:48 AM CDT Height 175.3 cm (5' 9) 10/01/2014 10:48 AM CDT Body Mass Index 29.68 10/01/2014 10:48 AM CDT documented in this encounter Progress Notes Raghavendra Deras MD - 10/12/2014 10:19 AM CDT SUBJECTIVE: Terry Montero is a 69 year old male who presents to clinic today for the following health issues: Patient presents with: Edema: swollen ankles x 4-6 weeks Refill Request: would like [facility] Patient here for recheck on medications. He is otherwise doing well. Has had increase in peripheral edema bilaterally on amlodipine which has worsened in the last few months with the hot weather. Bloodpressure is controlled when checked outside of clinic. Denies shortness or breath, chest pain, headache, vision change, or lower extremity edema. History of LUTS symptoms that are stable and improved with doxazosin. Denies any dysuria, hematuria,or groin pain. [facility] PSA Date Value Ref Range Status 12/31/2002 0.4 <0R=4.0 NG/ML Final Comment: PSA VALUES FROM DIFFERENT ASSAY METHODS CANNOT BE USED INTERCHANGEABLY. THIS ASSAY WAS PERFORMED USING THE COREY CHEMILUMINESCENT METHOD. PSA Date Value Ref Range Status 04/15/2014 0.85 0 - 4 ug/L Final History of peptic ulcer disease on PPI with previous issues. Denies any epigastric pain, hematochezia, or melena. Patient Active Problem List Diagnosis ??? Actinic keratosis ??? ALLERGIC RHINITIS NOS ??? HYPERTROPHY of PROSTATE ??? ESOPHAGEAL REFLUX ??? SCC (squamous cell carcinoma), face ??? MORENITA (Obstructive Sleep Apnea) ??? History of peptic ulcer disease ? ? Hypertension goal BP (blood pressure) < 140/90 ??? Advanced directives, counseling/discussion ??? Gastroenteritis ??? Adenomatous polyp of colon ? ? Hyperlipidemia LDL goal < 130 ??? Benign prostatic hypertrophy with lower [...] Diabetes Maternal Grandmother ??? C.A.D. Maternal Uncle [place] ??? Cancer - colorectal Maternal Uncle ??? Prostate Cancer Other Cousin ??? Heart Disease Brother stent - 66 ??? Prostate Cancer Brother no cancer, but a produre due reduce the prostate ??? Cancer Sister bone caner/lung cancer ??? Prostate Cancer Paternal Grandfather not sure ??? Cerebrovascular Accident Maternal Grandmother older, 70's or 80's ROS: CV: NEGATIVE for chest pain, palpitations or peripheral edema GI: NEGATIVE for nausea, abdominal pain, heartburn, or change in bowel habits OBJECTIVE: BP 122/74 mmHg Pulse 61 Temp(Src) 98.2 ??F (36.8 ??C) (Oral) Ht 5' 9 (1.753 m) Wt 201 lb (91.173 kg) BMI 29.67 kg/m2 SpO2 97%Body mass index is 29.67 kg/(m^2). GENERAL APPEARANCE: healthy, alert and no distress RESP: lungs clear to auscultation - no rales, rhonchi or wheezes CV: regular rates and rhythm, normal S1 S2, no S3 or S4, no murmur, click or rub and pitting B/L LE edema to mid kirby 1+ ASSESSMENT/PLAN: 1. Hypertension goal BP (blood pressure) < 140/90 Currently well controlled. Recommend change medication from amlodipine as he is having significant peripheral edema. Patient previously did well with diuretic. Has BPH with urinary symptoms but states this did not significantly alter the symptoms in the past that he remembers. Will try diuretic again as this will improve swelling and hopefully control blood pressure. Recommend recheck blood pressure in 1 month with nurse blood pressure check. - hydrochlorothiazide (HYDRODIURIL) 25 MG tablet; Take 1 tablet (25 mg) by mouth daily Dispense: 90 tablet; Refill: 4 - doxazosin (CARDURA) 8 MG tablet; Take 0.5 tablets (4 mg) by mouth At Bedtime Dispense: 45 tablet; Refill: 4 2. Hyperlipidemia LDL goal <130 Continue statin. Patient elects to continue half tab daily as it is cost effective for him. - simvastatin (ZOCOR) 40 MG tablet; Take 0.5 tablets (20 mg) by mouth At Bedtime Dispense: 45 tablet; Refill: 4 3. History of peptic ulcer disease - omeprazole (PRILOSEC) 40 MG capsule; Take 1 capsule (40 mg) by mouth daily Take 30-60 minutes before a meal. Dispense: 90 capsule; Refill: 4 4. Benign prostatic hypertrophy with lower urinary tract symptoms (LUTS) - UA reflex to Microscopic and Culture - Basic metabolic panel 5. Need for vaccination against Streptococcus pneumoniae - PNEUMOCOCCAL CONJ VACCINE 13 VALENT IM Raghavendra Deras MD [facility] documented in this encounter Nursing Notes Raudel Garcia CMA - 10/01/2014 10:49 AM CDT Chief Complaint Patient presents with ??? Edema swollen ankles x 4-6 weeks ??? Refill Request would like [facility] Initial BP 122/74 mmHg Pulse 61 Temp(Src) 98.2 ??F (36.8 ??C) (Oral) Ht 5' 9 (1.753 m) Wt 201 lb (91.173 kg) BMI 29.67 kg/m2 SpO2 97% Estimated body mass index is 29.67 kg/(m^2) as calculated from the following: Height as of this encounter: 5' 9 (1.753 m). Weight as of this encounter: 201 lb (91.173 kg). BP completed using cuff size: kenzie Garcia CMA documented in this encounter Plan of Treatment Not on filedocumented as of this encounter Procedures Procedure Name Priority Date/Time Associated Diagnosis Comme nts UA MACROSCOPIC WITH Routine 10/01/2014 11:49 Benign prostatic Results for this REFLEX TO AM CDT hypertrophy with procedure a re in MICROSCOPIC AND lower urinary tract the r esults CULTURE symptoms (LUTS) section. BASIC METABOLIC Routine 10/01/2014 11:49 Benign prostatic Resu lts for this PANEL AM CDT hypertrophy with procedure a re in lower urinary tract the resu lts symptoms (LUTS) section. documented in this encounter Results (ABNORMAL) Basic metabolic panel (10/01/2014 11:49 AM CDT) [facility] Method Time Signature Sodium 141 133 - 144 [place] mmol/L [facility] Potassium 3.5 3.4 - 5.3 [place] mmol/L [facility] Chloride 106 94 - 109 [place] mmol/L [facility] Carbon Dioxide 24 20 - 32 [place] mmol/L [facility] Anion Gap 11 3 - 14 [place] mmol/L [facility] Glucose 119 (H) 70 - 99 [place] mg/dL [facility] Urea Nitrogen 15 7 - 30 [place] mg/dL [facility] Creatinine 0.92 0.66 - [place] 1.25 mg/dL [facility] GFR Estimate 81 >60 [place] mL/min/1.7 CLINICS m2 [facility] Comment: Non GFR Calc GFR Estimate If >90 >60 mL/min/1.7m2 [facility] Black GFR Calc BLOO [facility] Calcium 9.2 8.5 - 10.1 mg/dL [place] CLIN ICS [facility] Specimen Anatomical Collection Method Collection Time Receive d Time (Source) Location / / Volume Laterality Blood specimen 10/01/2014 11:49 5 (specimen) AM CDT 11:50 AM CDT Raghavendra Deras MD LAB - BLOOD ORDERABLES Performing Organization Address City/State/ZIP Code Phon e Number [facility] [address] [place] [address] UA reflex to Microscopic and Culture (10/01/2014 11:49 AM CDT) [facility] Method Time Signature Color Urine Yellow [facility] Appearance Urine Clear [facility] Glucose Urine Negative NEG mg/dL [facility] Bilirubin Urine Negative NEG [facility] Ketones Urine Negative NEG mg/dL [facility] Specific [place] 1.020 1.003 - [place] Urine 1.035 [facility] Blood Urine Negative NEG [facility] pH Urine 6.0 5.0 - 7.0 [place] pH [facility] Protein Albumin Negative NEG mg/dL [facility] Urobilinogen 0.2 0.2 - 1.0 [place] Urine EU/dL [facility] Nitrite Urine Negative NEG [facility] Leukocyte Negative NEG [place] Esterase Urine [facility] Source Midstream [place] Urine [facility] Specimen Anatomical Collection Method Collection Time Receive d Time (Source) Location / / Volume Laterality Urine specimen 10/01/2014 11:49 5 (specimen) AM CDT 11:50 AM CDT Raghavendra Deras MD LAB - URINE ORDERABLES Performing Organization Address City/State/ZIP Code Phon e Number [facility] [id number] [place] [address] documented in this encounter Visit Diagnoses Diagnosis Hypertension goal BP (blood pressure) < 140/90 - Primary Unspecified essential hypertension Hyperlipidemia LDL goal <130 Other and unspecified hyperlipidemia History of peptic ulcer disease Personal history of peptic ulcer disease Benign prostatic hypertrophy with lower urinary tract symptoms (LUTS) Hypertrophy of prostate with urinary obs truction and other lower urinary tract symptoms (LUTS) Need for vaccination against Streptococc us pneumoniae Need for prophylactic vaccination agains t streptococcus pneumoniae (pneumococcus) documented in this encounter Care Teams Chairman Emeritus Relationship Specialty Start Date End Date Raghavendra Deras MD PCP - General Family Practice 10/07/13 documented as of this encounter
--- OUTSIDE RECORDS SUMMARY | 2021-11-04 10:37 | XMS_ITS | Encounter Summary ---
:1945 Author Organization [place] Address [address] [facility] [place] [address] Care Team Providers Name Role Phone Nasir Velazquez MD Primary Care Provider [phone] Reason for Visit Reason Onset Date Comments Panel Management 05/09/2013 GI Dispatcher Ship Pilot- Colono scopy Encounter Details Date Type Department Care Team Description 05/09/2013 Telephone [facility] Nasir Velazquez Panel Management ([facility] [place] MD Alisia Chow- [id number] [facility] Colonoscopy) [place] [address] [place] [phone] [facility] [phone] [place] [address] (Wo rk) Social History Tobacco Use Types [...] at Date Recorded 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 Unable to reach patient. Not scheduled. documented in this encounter Plan of Treatment Not on filedocumented as of this encounter Visit Diagnoses Not on filedocumented in this encounter Care Teams Forging Die Finisher Relationship Specialty Start Date End Date Nasir Velazquez MD PCP - General 02/18/99 10/06/13 [facility] [address] [place] [address] documented as of this encounter
--- OUTSIDE RECORDS SUMMARY | 2021-11-04 10:37 | XMS_ITS | Encounter Summary ---
:1945 Author Organization [facility] Address [address] [facility] [place] [address] Care Team Providers Name Role Phone Raghavendra Deras MD Primary Care Provider Unavailable Reason for Visit Reason Comments Physical Pre Visit Planning - Done Encounter Details Date Type Department Care Team Description 04/15/2014 Office Visit [facility] Raghavendra Deras Routine g eneral medical examination at a health care facility (Primary Dx); Clinic Candy Alan MD Hypertension goal BP (blood pressure) < 140/90; [address] [facility] Hyperlipidemia LDL goal < 13 0; [place], [place] History of ane jolynn; [id number] Adenomatous polyp of colon; [phone] HYPERTROPHY of PROSTATE ; Special screeni ng for malignant neoplasm of prostate Social History Tobacco Use Types Packs/Day Years [...] at Date Recorded 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 Last Filed Vital Signs Vital Sign Reading Time Taken Comments Blood Pressure 130/80 04/15/2014 9:08 AM CDT Pulse 72 04/15/2014 9:08 AM CDT Temperature 36.8 ??C (98.3 ??F) 04/15/2014 9:08 AM CDT Respiratory Rate 16 04/15/2014 9:08 AM CDT Oxygen Saturation 95% 04/15/2014 9:08 AM CDT Inhaled Oxygen Concentration - - Weight 91.7 kg (202 lb 2 oz) 04/15/2014 9:08 AM CDT Height 175.3 cm (5' 9) 04/15/2014 9:08 AM CDT Body Mass Index 29.85 04/15/2014 9:08 AM CDT documented in this encounter Patient Instructions Patient InstructionsQuade, Raghavendra Alan MD - 04/15/2014 9:54 AM CDT Preventive Health Recommendations: Male Ages 65 and [...] a tetanus shot every 10 years. ??? Get a one-time shot to prevent pneumonia (Pneumovax). ??? Talk to your doctor about a shingles vaccine. ??? Talk to your doctor about the hepatitis B vaccine. Nutrition: ??? Eat at least 5 servings of fruits and vegetables each day. ??? Eat whole-grain bread, whole-wheat pasta and brown rice instead of white grains and rice. ??? For bone health: Eat calcium-rich foods or take calcium pills (500 to 600 mg) twice a day with food. Also take vitamin D (1000 IU) each day. Lifestyle ??? Exercise for at least 150 [...] screen for conditions such as glaucoma, macular degeneration, cataracts, etc??? documented in this encounter Progress Notes Raghavendra Deras MD - 04/14/2014 11:23 AM CDT SUBJECTIVE: CC: Terry Montero is an 68 year old male who presents for preventative health visit. Physical Annual: Getting at least 3 servings of Calcium per day:: Yes Bi-annual eye exam:: Yes Dental care twice a year:: Yes Sleep apnea or symptoms of sleep apnea:: Excessive snoring Diet:: Regular (no restrictions) Frequency of exercise:: 2-3 days/week Duration of exercise:: 15-30 minutes Taking medications regularly:: Yes Medication side effects:: None Additional concerns today:: YES Today's PHQ-2 Score: Abuse: Current or Past(Physical, Sexual or Emotional)- No Do you feel safe in your environment - Yes History Substance Use Topics ??? Smoking status: Former Smoker -- 0.50 packs/day for 20 years Types: Cigarettes Quit date: 02/06/1984 ??? Smokeless tobacco: Never Used ??? Alcohol Use: 1.0 oz/week Comment: occasional The patient does not drink >3 drinks per day nor >7 drinks per week. Last PSA: San[facility] PSA Date Value Ref Range Status 12/31/2002 0.4 <0R=4.0 NG/ML Final PSA VALUES FROM DIFFERENT ASSAY METHODS CANNOT BE USED INTERCHANGEABLY. THIS ASSAY WAS PERFORMED USING THE COREY CHEMILUMINESCENT METHOD. PSA Date Value Ref Range Status 08/07/2012 0.52 0 - 4 ug/L Final Recent Labs Lab Test 11/13/13 0956 08/02/12 1025 CHOL 150 164 HDL 58 40 LDL 70 82 TRIG 111 209* CHOLHDLRATIO 2.6 4.1 Reviewed orders with patient. Reviewed health maintenance and updated orders accordingly - Yes All Histories reviewed and updated in [facility]. Past Medical History Diagnosis Date ??? Essential hypertension, benign 12/30/2002 ??? Acute duodenal ulcer with hemorrhage, without mention of obstruction 1997 ??? Pulmonary nodule CT reassuring 2008 ??? Arthritis ??? SCC (squamous cell carcinoma), face 03/16/2008 ? ? Hypertension goal BP (blood pressure) < 140/90 06/24/2010 ? ? Hyperlipidemia LDL goal < 130 04/15/2014 Past Surgical History Procedure Laterality Date ??? Hc colonoscopy thru stoma, diagnostic 2002 ??? Colonoscopy 06/05/2013 Procedure: COLONOSCOPY; Surgeon: Matthew Richardson MD; Location: GI ROS: C: NEGATIVE for fever, chills, change in weight I: NEGATIVE for worrisome rashes, moles or lesions E: NEGATIVE for vision changes or irritation ENT: NEGATIVE for ear, mouth and throat problems R: NEGATIVE for significant cough or SOB CV: NEGATIVE for chest pain, palpitations or peripheral edema GI: NEGATIVE for nausea, abdominal pain, heartburn, or change in bowel habits male: negative for dysuria, hematuria, decreased urinary stream, erectile dysfunction, urethral discharge M: NEGATIVE for significant arthralgias or myalgia N: NEGATIVE for weakness, dizziness or paresthesias P: NEGATIVE for changes in mood or affect Problem list, Medication list, Allergies, and Medical/Social/Surgical histories reviewed in [facility] andupdated as appropriate. OBJECTIVE: BP 130/80 Pulse 72 Temp(Src) 98.3 ??F (36.8 ??C) (Oral) Resp 16 Ht 5' 9 (1.753 m) Wt 202 lb 2 oz (91.683 kg) BMI 29.83 kg/m2 SpO2 95% GENERAL APPEARANCE: healthy, alert and no distress EYES: Eyes grossly normal to inspection, PERRL and conjunctivae and sclerae normal HENT: ear canals and TM's normal, nose and mouth without ulcers or lesions, oropharynx clear and oral mucous membranes moist NECK: no adenopathy, no asymmetry, masses, or scars and thyroid normal to palpation RESP: lungs clear to auscultation - no rales, rhonchi or wheezes CV: regular rates and rhythm, normal S1 S2, no S3 or S4, no murmur, click or rub, no peripheral edema and peripheral pulses strong ABDOMEN: soft, nontender, no hepatosplenomegaly, no masses and bowel sounds normal (male): normal male genitalia without lesions or urethral discharge, no hernia RECTAL: deferred MS: no musculoskeletal defects are noted and gait is age appropriate without ataxia SKIN: no suspicious lesions or rashes NEURO: Normal strength and tone, sensory exam grossly normal, mentation intact and speech normal PSYCH: mentation appears normal and affect normal/bright ASSESSMENT/PLAN: 1. Routine general medical examination at a health care facility 2. Hypertension goal BP (blood pressure) < 140/90 - amLODIPine (NORVASC) 10 MG tablet; Take 1 tablet (10 mg) by mouth daily Dispense: 90 tablet; Refill: 1 - Basic metabolic panel 3. Hyperlipidemia LDL goal < 130 4. History of anemia - CBC with platelets - Ferritin 5. Adenomatous polyp of colon 6. HYPERTROPHY of PROSTATE - Prostate spec antigen screen 7. Special screening for malignant neoplasm of prostate Discussed risk and benefit of prostate cancer screening with PSA testing including benefit of early detection and risk of unnecessary biopsy and patient anxiety and complications of treatment on cancerthat may not have affected patient's health. Patient desires PSA testing at this time. Continue annual digital rectal exam for screening. - Prostate spec antigen screen Counseling Resources: ATP IV Guidelines Pooled Cohorts Equation Calculator FRAX Risk Assessment ICSI Preventive Guidelines Dietary Guidelines for Americans, 2010 USDA's MyPlate regular exercise healthy diet/nutrition vision screening hearing screening prostate cancer screening reports that he quit smoking about 30 years ago. His smoking use included Cigarettes. He has a 10 pack-year smoking history. He has never used smokeless tobacco. Estimated body mass index is 29.83 kg/(m^2) as calculated from the following: Height as of this encounter: 5' 9 (1.753 m). Weight as of this encounter: 202 lb 2 oz (91.683 kg). Weight management plan: Established an exercise regimen with the patient. Activity goal: 30 minutes 5 days a week. New exercise routine: walking. Diet regimen was discussed and plan is self-directed dieting: reduce calories. Raghavendra Deras MD [employer] Answers for HPI/ROS submitted by the patient on 04/13/2014 PHQ-2 Depressed: Not at all, Not at all PHQ-2 Score: 0 documented in this encounter Nursing Notes Pablo Leon MA - 04/15/2014 9:09 AM CDT Chief Complaint Patient presents with ??? Physical ??? Pre Visit Planning - Done Initial BP 130/80 Pulse 72 Temp(Src) 98.3 ??F (36.8 ??C) (Oral) Resp 16 Ht 5' 9 (1.753 m) Wt 202 lb 2 oz (91.683 kg) BMI 29.83 kg/m2 SpO2 95% Estimated body mass index is 29.83 kg/(m^2) as calculated from the following: Height as of this encounter: 5' 9 (1.753 m). Weight as of this encounter: 202 lb 2 oz (91.683 kg). 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 PROSTATE FERRITIN Routine 04/15/2014 10:07 History of anemia Result s for this AM CDT procedure are i n the results section. BASIC METABOLIC Routine 04/15/2014 10:07 Hypertension goal BP Results for this PANEL AM CDT (blood pressure) < procedure are in 140/90 the results section. CBC WITH PLATELETS Routine 04/15/2014 10:07 History of anemia Results for this AM CDT procedure are i n the results section. documented in this encounter Results Prostate spec antigen screen (04/15/2014 10:07 AM CDT) P athologist Signature PSA 0.85 0 - 4 ug/L [facility] Specimen Anatomical Collection Method Collection Time Receive d Time (Source) Location / / Volume Laterality Blood specimen 04/15/2014 10:07 5 (specimen) AM CDT 10:08 AM CDT Raghavendra Deras MD LAB - BLOOD ORDERABLES Performing Organization Address City/[facility]/ZIP Code Phon e Number [facility] [address] [place] [address] Ferritin (04/15/2014 10:07 AM CDT) athologist Signature Ferritin 117 26 - 388 [facility] ng/mL [facility] Specimen Anatomical Collection Method Collection Time Receive d Time (Source) Location / / Volume Laterality Blood specimen 04/15/2014 10:07 5 (specimen) AM CDT 10:08 AM CDT Raghavendra Deras MD LAB - BLOOD ORDERABLES Performing Organization Address City/[facility] Code Phon e Number [facility] [address] [place] [address] Basic metabolic panel (04/15/2014 10:07 AM CDT) athologist Signature Sodium 140 133 - 144 [place] mmol/L [facility] Potassium 3.6 3.4 - 5.3 [place] mmol/L [facility] Chloride 106 94 - 109 [place] mmol/L [facility] Carbon Dioxide 28 20 - 32 [place] mmol/L [facility] Anion Gap 6 3 - 14 [place] mmol/L [facility] Glucose 96 70 - 99 [place] mg/dL [facility] Comment: Effective 09/03/2013, the reference range for this assay has changed to reflect new instrumentation/methodology. Urea Nitrogen 16 7 - 30 mg/dL [facility] Comment: Effective 09/03/2013, the reference range for this assay has changed to reflect new instrumentation/methodology. Creatinine 0.97 0.66 - 1.25 mg/dL [facility] GFR Estimate 77 >60 mL/min/1.7m2 [facility] Comment: Non GFR Calc GFR Estimate If Black >90 >60 mL/min/1.7m2 [facility] GFR Calc HOSP ITAL Calcium 8.9 8.5 - 10.1 mg/dL [facility] Comment: Effective 09/03/2013, the reference range for this assay has changed to reflect new instrumentation/methodology. Specimen Anatomical Collection Method Collection Time Receive d Time (Source) Location / / Volume Laterality Blood specimen 04/15/2014 10:07 5 (specimen) AM CDT 10:08 AM CDT Raghavendra Deras MD LAB - BLOOD ORDERABLES Performing Organization Address City/[facility]/ZIP Code Phon e Number [facility] [address] [phone] [facility] [address] [phone] (ABNORMAL) CBC with platelets (04/15/2014 10:07 AM CDT) Analysis Performed At Patho logist Time Signature WBC 5.3 4.0 - 11.0 [place] 10e9/L [facility] RBC Count 4.56 4.4 - 5.9 [place] 10e12/L [facility] Hemoglobin 13.3 13.3 - [place] 17.7 g/dL [facility] Hematocrit 38.6 (L) 40.0 - [place] 53.0 % [facility] MCV 85 78 - 100 [facility] MCH 29.2 26.5 - [place] 33.0 pg [facility] MCHC 34.5 31.5 - [place] 36.5 g/dL [facility] RDW 13.0 10.0 - [place] 15.0 % [facility] Platelet Count 147 (L) 150 - 450 [place] 10e9/L [facility] Specimen Anatomical Collection Method Collection Time Receive d Time (Source) Location / / Volume Laterality Blood specimen 04/15/2014 10:07 5 (specimen) AM CDT 10:08 AM CDT Raghavendra Deras MD LAB - BLOOD ORDERABLES Performing Organization Address City/[facility]/ZIP Code Phon e Number [employer] [id number] [place] [address] documented in this encounter Visit Diagnoses Diagnosis Routine general medical examination at a health care facility - Primary Hypertension goal BP (blood pressure) < 140/90 Unspecified essential hypertension Hyperlipidemia LDL goal < 130 Other and unspecified hyperlipidemia History of anemia Personal history of diseases of blood an d blood-forming organs Adenomatous polyp of colon Benign neoplasm of colon HYPERTROPHY of PROSTATE Hypertrophy of prostate without urinary obstruction and other lower urinary tract symptoms (LUTS) Special screening for malignant neoplasm of prostate Special screening for malignant neoplasm of prostate documented in this encounter Care Teams Shot Bagger Relationship Specialty Start Date End Date Raghavendra Deras MD PCP - General Family Practice 10/07/13 documented as of this encounter
--- OUTSIDE RECORDS SUMMARY | 2021-11-04 10:37 | XMS_ITS | Encounter Summary ---
:1945 Author Organization [place] Address [facility] 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 Last Filed Vital Signs Vital Sign Reading Time Taken Comments Blood Pressure 130/70 05/22/2014 2:59 PM CDT Pulse 77 05/22/2014 2:59 PM CDT Temperature 36.9 ??C (98.5 ??F) 05/22/2014 2:59 PM CDT Respiratory Rate 16 05/22/2014 2:59 PM CDT Oxygen Saturation 96% 05/22/2014 2:59 PM CDT Inhaled Oxygen Concentration - - Weight 91.5 kg (201 lb 11.2 oz) 05/22/2014 2:59 PM CDT Height 175.3 cm (5' 9) 05/22/2014 2:59 PM CDT Body Mass Index 29.79 05/22/2014 2:59 PM CDT documented in this encounter Patient Instructions Patient InstructionsAnnette Rodarte, SHANNA WINDOW AND DOOR INSTALLER - 05/22/2014 3:22 PM CDT Images from the original note were not included. Nasal Allergy Nasal Allergy, also called ???Allergic Rhinitis?? occurs after exposure to pollen, molds, mildew, animal ???dander?? (scales from animal skin, hair and feathers), dust, smoke and fumes. (These are called ???allergens?? ). When pollen causes a nasal allergy it is commonly called ???Hay Fever?? . When these particles contact the lining of the nose, eyes, eyelids, sinuses or throat, they cause the cells to release a chemical called ?? histamine?? . Histamine may cause a watery discharge from theeyes or nose. It may also cause violent sneezing, nasal congestion, itching of the eyes, nose, throat and mouth. Prevention: Nasal allergy cannot be cured but symptoms can be reduced. Avoid or reduce exposure to the allergen when possible, by the following measures: POLLEN ?? Stay indoors on hot windy days during pollen season ?? Keep windows and doors closed ?? Use an air conditioner with an electrostatic filter DUST, MOLD & MILDEW Follow these measures, especially in the bedroom: ?? When cleaning use vacuum review trainer, oiled mops and damp cloths; don???t stir up the dust. ?? Once a week clean the villatoro, woodwork and floors with a damp mop and vacuum carpets. ?? Once a year clean the bed frame and springs (do this outside). ?? Cover the box springs with plastic. Do not use mattress pads. ?? Remove stuffed chairs and rugs from the bedroom. ?? Discard old moldy books, furniture and bedding. ?? Use synthetic fabrics for furniture, curtains and bedding. Avoid quilts, comforters, and stuffed toys. ANIMAL DANDER ?? Remove all indoor pets (except fish and reptiles). ?? Avoid all contact with furry animals. ?? Avoid down-stuffed pillows and coats. ?? Some persons are also sensitive to wool and should avoid it. OTHER IRRITANTS ?? Do not smoke and avoid the smoke of others. ?? Some persons are sensitive to cosmetic powder, baby powder and powdered laundry detergents. Therefore, these powders should be avoided. Home Care: ?? DECONGESTANT pills and sprays (Sudafed, NeoSynephrine, Afrin), reduce tissue swelling and watery discharge. Overuse of nasal decongestant sprays may make symptoms worse. Do not use these more often than recommended. ?? ANTIHISTAMINES block the release of histamine during the allergic response. Antihistamines are more effective when taken BEFORE symptoms develop. Unless a prescription antihistamine was prescribed, you may take CLARITIN (loratadine). (Claritin is an pjrv-tbb-smcmzee antihistamine that does not cause drowsiness.) ?? STEROID nasal sprays (Beconase, Vancenase, Nasalide) or oral steroids (Prednisone) may also be prescribed for more severe symptoms. These help to reduce the local inflammation which adds to the allergic response. ?? If you have ASTHMA, pollen season may make your asthma symptoms worse. It is important that you use your asthma medicines as directed during this time to prevent or treat attacks. Some persons with asthma have a worsening of their asthma symptoms when taking antihistamines. If you notice this, stopthe antihistamines and notify your doctor. Follow Up with your doctor or as directed by our staff if your symptoms are not improving with the treatment advised. Get Prompt Medical Attention if any of the following occur: ?? Facial or sinus pain or colored drainage from the nose ?? Severe headache or ear pain ?? Fever of 100.4??F (38??C) or higher, or as directed by your healthcare provider ?? Wheezing or trouble breathing (If you already know you have asthma, return if your asthma symptoms do not respond to the usual doses of your medicine) ?? Cough with lots of colored sputum (mucus) ?? [id number] [employer]. [address] [place] [address], [place] [address]. All rights reserved. This information is not intended as a substitute for professional medical care. Always follow your healthcare professional's instructions. Patient Education ?? Fluticasone Furoate Nasal spray, suspension ?? Fluticasone Propionate Inhalation powder ?? Fluticasone Propionate Nasal spray, solution ?? Fluticasone Propionate Pressurized inhalation, suspension ?? Fluticasone Propionate Topical cream ?? Fluticasone Propionate Topical lotion ?? Fluticasone Propionate Topical ointment Fluticasone Propionate Nasal spray, solution What is this medicine? FLUTICASONE (floo TIK a sone) is a corticosteroid. It helps decrease inflammation in your nose. Thismedicine is used to treat the symptoms of allergies like sneezing, itching, and runny or stuffy nose. This medicine may be used for other purposes; ask your health care provider or pharmacist if you have questions. What should I tell my health care provider before I take this medicine? They need to know if you have any of these conditions: ?? infection, like tuberculosis, herpes, or fungal infection ?? recent surgery on nose or sinuses ?? taking corticosteroid by mouth ?? an unusual or allergic reaction to fluticasone, steroids, other medicines, foods, dyes, or preservatives ?? or trying to get ?? breast-feeding How should I use this medicine? This medicine is for use in the nose. Follow the directions on your prescription label. This medicine works best if used regularly. Do not use more often than directed. Make sure that you are using your nasal spray correctly. Ask you doctor or health care provider if you have any questions. Talk to your picture copyist regarding the use of this medicine in children. While this drug may be prescribed for children as young as 4 years old for selected conditions, precautions do apply. Overdosage: If you think you have taken too much of this medicine contact a poison control center [facility] room at once. NOTE: This medicine is only for you. Do not share this medicine with others. What if I miss a dose? If you miss a dose, use it as soon as you remember. If it is almost time for your next dose, use only that dose and continue with your regular schedule. Do not use double or extra doses. What may interact with this medicine? ?? ketoconazole ?? metyrapone ?? some medicines for HIV ?? vaccines This list may not describe all possible interactions. Give your health care provider a list of all the medicines, herbs, non-prescription drugs, or dietary supplements you use. Also tell them if you smoke, drink alcohol, or use illegal drugs. Some items may interact with your medicine. What should I watch for while using this medicine? Visit your doctor or health resident care provider for regular checks on your progress. Some symptoms mayimprove within 12 hours after starting use. Check with your doctor or health resident care provider if there is no improvement in your condition after 3 weeks of use. Do not come in contact with people who have chickenpox or the measles while you are taking this medicine. If you do, call your doctor right away. What side effects may I notice from receiving this medicine? Side effects that you should report to your doctor or health resident care provider as soon as possible: ?? allergic reactions like skin rash, itching or hives, swelling of the face, lips, or tongue ?? changes in vision ?? flu-like symptoms ?? white patches or sores in the mouth or nose Side effects that usually do not require medical attention (report to your doctor or health resident care provider if they continue or are bothersome): ?? burning or irritation inside the nose or throat ?? cough ?? headache ?? nosebleed ?? unusual taste or smell This list may not describe all possible side effects. Call your doctor for medical advice about sideeffects. You may report side effects to FDA at 7-021-DBH-9835. Where should I keep my medicine? Keep out of the reach of children. Store at room temperature between 15 and 30 degrees C (59 and 86 degrees F). Throw away any unused medicine after the expiration date. NOTE:This sheet is a summary. It may not cover all possible information. If you have questions aboutthis medicine, talk to your doctor, pharmacist, or health care provider. Copyright?? 2014 [employer] documented in this encounter Progress Notes Annette Rodarte APRN CNP - 05/22/2014 2:52 PM CDT Images from the original note were not included. SUBJECTIVE: Terry Montero is a 69 year old male who presents to clinic today for the following health issues: . Acute Illness Acute illness concerns?- Cough Onset: one week ago ?? Fever: no ?? Chills/Sweats: no ?? Headache (location?): no ?? Sinus Pressure:YES ?? Conjunctivitis: YES: bilateral ?? Ear Pain: no ?? Rhinorrhea: YES ?? Congestion: YES ?? Sore Throat: no ?? Cough: YES-productive of green sputum ?? Wheeze: no ?? Decreased Appetite: no ?? Nausea: no ?? Vomiting: no ?? Diarrhea: YES ?? Dysuria/Freq.: no ?? Fatigue/Achiness: YES ?? Sick/Strep Exposure: no Therapies Tried and outcome: Leanna seltzer cough and cold plus - didn't help Problem list and histories reviewed & adjusted, [...] ? ? Hyperlipidemia LDL goal < 130 Past Surgical History Procedure Laterality Date ??? [...] Diabetes Maternal Grandmother ??? C.A.D. Maternal Uncle [place] ??? Cancer - Colorectal Maternal Uncle ??? Cancer - Prostate Other Cousin ??? Heart Brother stent - 66 ??? Cancer - Prostate Brother no cancer, but a produre due reduce the prostate ??? Cancer Sister bone caner/lung cancer ??? Cancer - Prostate Paternal Grandfather not sure ??? Stroke Maternal Grandmother older, 70's or 80's ROS: Constitutional, HEENT, cardiovascular, pulmonary, gi and gu systems are negative, except as otherwise noted. OBJECTIVE: BP 130/70 Pulse 77 Temp(Src) 98.5 ??F (36.9 ??C) (Oral) Resp 16 Ht 5' 9 (1.753 m) Wt 201 lb 11.2 oz (91.491 kg) BMI 29.77 kg/m2 SpO2 96% Body mass index is 29.77 kg/(m^2). GENERAL: healthy, alert and no distress EYES: Eyes grossly normal to inspection HENT: normal cephalic/atraumatic, ear canals and TM's normal, nose and mouth without ulcers or lesions, nasal mucosa edematous , rhinorrhea clear, oropharynx clear, oral mucous membranes moist and sinuses: not tender NECK: no adenopathy, no asymmetry, masses, or scars and thyroid normal to palpation RESP: lungs clear to auscultation - no rales, rhonchi or wheezes CV: regular rate and rhythm, normal S1 S2, no S3 or S4, no murmur, click or rub, no peripheral edemaand peripheral pulses strong SKIN: no suspicious lesions or rashes Diagnostic Test Results: none ASSESSMENT/PLAN: ICD-9-CM 1. Seasonal allergic rhinitis 477.9 fluticasone (FLONASE) 50 MCG/ACT nasal spray Patient Instructions Nasal Allergy Nasal Allergy, also called ???Allergic Rhinitis?? occurs after exposure to pollen, molds, mildew, animal ???dander?? (scales from animal skin, hair and feathers), dust, smoke and fumes. (These are called ???allergens?? ). When pollen causes a nasal allergy it is commonly called ???Hay Fever?? . When these particles contact the lining of the nose, eyes, eyelids, sinuses or throat, they cause the cells to release a chemical called ?? histamine?? . Histamine may cause a watery discharge from theeyes or nose. It may also cause violent sneezing, nasal congestion, itching of the eyes, nose, throat and mouth. Prevention: Nasal allergy cannot be cured but symptoms can be reduced. Avoid or reduce exposure to the allergen when possible, by the following measures: POLLEN ?? Stay indoors on hot windy days during pollen season ?? Keep windows and doors closed ?? Use an air conditioner with an electrostatic filter DUST, MOLD & MILDEW Follow these measures, especially in the bedroom: ?? When cleaning use vacuum review trainer, oiled mops and damp cloths; don???t stir up the dust. ?? Once a week clean the villatoro, woodwork and floors with a damp mop and vacuum carpets. ?? Once a year clean the bed frame and springs (do this outside). ?? Cover the box springs with plastic. Do not use mattress pads. ?? Remove stuffed chairs and rugs from the bedroom. ?? Discard old moldy books, furniture and bedding. ?? Use synthetic fabrics for furniture, curtains and bedding. Avoid quilts, comforters, and stuffed toys. ANIMAL DANDER ?? Remove all indoor pets (except fish and reptiles). ?? Avoid all contact with furry animals. ?? Avoid down-stuffed pillows and coats. ?? Some persons are also sensitive to wool and should avoid it. OTHER IRRITANTS ?? Do not smoke and avoid the smoke of others. ?? Some persons are sensitive to cosmetic powder, baby powder and powdered laundry detergents. Therefore, these powders should be avoided. Home Care: ?? DECONGESTANT pills and sprays (Sudafed, NeoSynephrine, Afrin), reduce tissue swelling and watery discharge. Overuse of nasal decongestant sprays may make symptoms worse. Do not use these more often than recommended. ?? ANTIHISTAMINES block the release of histamine during the allergic response. Antihistamines are more effective when taken BEFORE symptoms develop. Unless a prescription antihistamine was prescribed, you may take CLARITIN (loratadine). (Claritin is an yxrk-een-bdrglxs antihistamine that does not cause drowsiness.) ?? STEROID nasal sprays (Beconase, Vancenase, Nasalide) or oral steroids (Prednisone) may also be prescribed for more severe symptoms. These help to reduce the local inflammation which adds to the allergic response. ?? If you have ASTHMA, pollen season may make your asthma symptoms worse. It is important that you use your asthma medicines as directed during this time to prevent or treat attacks. Some persons with asthma have a worsening of their asthma symptoms when taking antihistamines. If you notice this, stopthe antihistamines and notify your doctor. Follow Up with your doctor or as directed by our staff if your symptoms are not improving with the treatment advised. Get Prompt Medical Attention if any of the following occur: ?? Facial or sinus pain or colored drainage from the nose ?? Severe headache or ear pain ?? Fever of 100.4??F (38??C) or higher, or as directed by your healthcare provider ?? Wheezing or trouble breathing (If you already know you have asthma, return if your asthma symptoms do not respond to the usual doses of your medicine) ?? Cough with lots of colored sputum (mucus) ?? [id number] [employer]. [address] [place] [address]. All rights reserved. This information is not intended as a substitute for professional medical care. Always follow your healthcare professional's instructions. Patient Education ?? Fluticasone Furoate Nasal spray, suspension ?? Fluticasone Propionate Inhalation powder ?? Fluticasone Propionate Nasal spray, solution ?? Fluticasone Propionate Pressurized inhalation, suspension ?? Fluticasone Propionate Topical cream ?? Fluticasone Propionate Topical lotion ?? Fluticasone Propionate Topical ointment Fluticasone Propionate Nasal spray, solution What is this medicine? FLUTICASONE (floo TIK a sone) is a corticosteroid. It helps decrease inflammation in your nose. Thismedicine is used to treat the symptoms of allergies like sneezing, itching, and runny or stuffy nose. This medicine may be used for other purposes; ask your health care provider or pharmacist if you have questions. What should I tell my health care provider before I take this medicine? They need to know if you have any of these conditions: ?? infection, like tuberculosis, herpes, or fungal infection ?? recent surgery on nose or sinuses ?? taking corticosteroid by mouth ?? an unusual or allergic reaction to fluticasone, steroids, other medicines, foods, dyes, or preservatives ?? or trying to get ?? breast-feeding How should I use this medicine? This medicine is for use in the nose. Follow the directions on your prescription label. This medicine works best if used regularly. Do not use more often than directed. Make sure that you are using your nasal spray correctly. Ask you doctor or health care provider if you have any questions. Talk to your picture copyist regarding the use of this medicine in children. While this drug may be prescribed for children as young as 4 years old for selected conditions, precautions do apply. Overdosage: If you think you have taken too much of this medicine contact a poison control center [facility] room at once. NOTE: This medicine is only for you. Do not share this medicine with others. What if I miss a dose? If you miss a dose, use it as soon as you remember. If it is almost time for your next dose, use only that dose and continue with your regular schedule. Do not use double or extra doses. What may interact with this medicine? ?? ketoconazole ?? metyrapone ?? some medicines for HIV ?? vaccines This list may not describe all possible interactions. Give your health care provider a list of all the medicines, herbs, non-prescription drugs, or dietary supplements you use. Also tell them if you smoke, drink alcohol, or use illegal drugs. Some items may interact with your medicine. What should I watch for while using this medicine? Visit your doctor or health resident care provider for regular checks on your progress. Some symptoms mayimprove within 12 hours after starting use. Check with your doctor or health resident care provider if there is no improvement in your condition after 3 weeks of use. Do not come in contact with people who have chickenpox or the measles while you are taking this medicine. If you do, call your doctor right away. What side effects may I notice from receiving this medicine? Side effects that you should report to your doctor or health resident care provider as soon as possible: ?? allergic reactions like skin rash, itching or hives, swelling of the face, lips, or tongue ?? changes in vision ?? flu-like symptoms ?? white patches or sores in the mouth or nose Side effects that usually do not require medical attention (report to your doctor or health resident care provider if they continue or are bothersome): ?? burning or irritation inside the nose or throat ?? cough ?? headache ?? nosebleed ?? unusual taste or smell This list may not describe all possible side effects. Call your doctor for medical advice about sideeffects. You may report side effects to FDA at 7-732-GDL-6432. Where should I keep my medicine? Keep out of the reach of children. Store at room temperature between 15 and 30 degrees C (59 and 86 degrees F). Throw away any unused medicine after the expiration date. NOTE:This sheet is a summary. It may not cover all possible information. If you have questions aboutthis medicine, talk to your doctor, pharmacist, or health care provider. Copyright?? 2014 [employer] Annette Rodarte APRN CNP [facility] documented in this encounter Nursing Notes Ban Flaherty CMA - 05/22/2014 3:04 PM CDT Chief Complaint Patient presents with ??? Cough Initial BP 130/70 Pulse 77 Temp(Src) 98.5 ??F (36.9 ??C) (Oral) Resp 16 Ht 5' 9 (1.753 m) Wt 201 lb 11.2 oz (91.491 kg) BMI 29.77 kg/m2 SpO2 96% Estimated body mass index is 29.77 kg/(m^2) as calculated from the following: Height as of this encounter: 5' 9 (1.753 m). Weight as of this encounter: 201 lb 11.2 oz (91.491 kg). BP completed using cuff size: regular, rt documented in this encounter Plan of Treatment Not on filedocumented as of this encounter Visit Diagnoses Diagnosis Seasonal allergic rhinitis - Primary Allergic rhinitis, cause unspecified documented in this encounter Care Teams Shop Tailor Apprentice Relationship Specialty Start Date End Date Raghavendra Deras MD PCP - General Family Practice 10/07/13 documented as of this encounter
--- OUTSIDE RECORDS SUMMARY | 2021-11-04 10:37 | XMS_ITS | Encounter Summary ---
:1945 Author Organization [place] Address [facility] 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
--- OUTSIDE RECORDS SUMMARY | 2021-11-04 10:37 | XMS_ITS | Encounter Summary ---
:1945 Author Organization [facility] Address [address] [facility] [place] [address] Care Team Providers Name Role Phone Nasir Velazquez MD Primary Care Provider [phone] Reason for Visit Reason Comments Abdominal Pain Auth/Cert - Closed Specialty Diagnoses / Procedures Referred By Contact Refer red To Contact Med Surg Diagnoses Nausea with vomiting [id number] [facility] Observation Dept [address] [place], [place] [phone] Phone: Referral ID Status Reason Start Date Expiration Date Visits Requ ested Visits Authorized Closed 01/10/2013 07/09/2013 Encounter Details Date Type Department Care Team Description 01/10/2013 Emergency [facility] Preston Paulson MD [facility] [address] [place] [address] Nausea with vomiting (Primary Dx); [facility] Aftab Lomeli MD [address] [place] [address] Abdominal pain, generalized; Dept Hypokalemia; [address] HYPERTROPHY of PROSTATE ; [place], [place] Esophageal re flux; [id number] Hyperlipidemia LDL goal <130 Social History Tobacco Use Types Packs/Day Years [...] at Date Recorded Male 01/15/2018 11:39 PM CHIEF CREATIVE OFFICER documented as of this encounter Last Filed Vital Signs Vital Sign Reading Time Taken Comments Blood Pressure 130/71 01/10/2013 8:27 PM CHIEF CREATIVE OFFICER Pulse 69 01/10/2013 8:27 PM CHIEF CREATIVE OFFICER Temperature 35.8 ??C (96.5 ??F) 01/10/2013 8:22 PM CHIEF CREATIVE OFFICER Respiratory Rate 16 01/10/2013 8:27 PM CHIEF CREATIVE OFFICER Oxygen Saturation 96% 01/10/2013 8:27 PM CHIEF CREATIVE OFFICER Inhaled Oxygen Concentration - - Weight 96 kg (211 lb 10.3 oz) 01/10/2013 6:16 AM CHIEF CREATIVE OFFICER Height 175.3 cm (5' 9.02) 01/10/2013 6:16 AM CHIEF CREATIVE OFFICER Body Mass Index 31.24 01/10/2013 6:16 AM CHIEF CREATIVE OFFICER documented in this encounter Discharge Summaries Deedee Poole PA-C - 01/10/2013 4:19 PM CST [facility] Discharge Summary Terry Montero Date of : 1945 Age: [age] year old Date of Admission: 01/10/2013 Date of Discharge: 01/10/2013 Admitting Physician: Aftab Givens MD Discharge Physician: Deedee Poole PA-C Discharging Service: Hospitalist Primary Provider: Nasir Velazquez Primary Care Physician Primary Discharge Diagnoses: Terry Montero was admitted on 01/10/2013 for concerns of nausea, vomiting and diarrhea. Consistent with acute gastroenteritis. 1. Acute Gastroenteritis: suspect viral causes, symptoms improved with anti- emetics & pain meds prn. Secondary Discharge Diagnoses: Past Medical History Diagnosis Date ??? Essential hypertension, benign 12/30/2002 ??? Acute duodenal ulcer with hemorrhage, without mention of obstruction 1997 ??? Pulmonary nodule CT reassuring 2008 Code Status: Full Code Brief Hospital Summary: Summary of Visit Brief summary of hospitalization Comments: Terry Montero is a relatively healthy 67-year-old man who presented to the emergency room twice on 01/10/2013 with diffuse abdominal pain and recurrent vomiting, he had a negative workup includinga CT scan of the abdomen, CBC, liver function tests, lipase, urinalysis. Patient was admitted to theobservation unit for further management. Abdominal pain nausea and vomiting likely from viral gastritis; no evidence of pancreatitis, no bowel ischemia with normal lactate and no risk factor, unlikely it is biliary pain with normal liver function test and no tenderness on exam, no evidence of aortic aneurysm. Record shows history of peptic ulcer with bleed however patient reports only GERD, either way there is no evidence of GI bleed. Patient was treated with IVF, mild hypokalemia was corrected withoral replacement, symptoms improved with anti-emetics and pain medications as needed. Patient was discharged home in stable condition with prescription for pain & anti-emetic medications. Significant Lab During Hospitalization: Lab 01/10/13 0400 01/09/13 1755 WBC 6.5 8.0 HGB 13.0* 13.6 HCT 37.7* 39.4* MCV 86 86 PLT 150 168 Lab 01/10/13 0714 01/10/13 0400 01/09/13 1755 NA -- 139 138 POTASSIUM 3.4 3.0* 3.3* CHLORIDE -- 100 100 CO2 -- 26 28 ANIONGAP -- 13 11 GLC -- 127* 96 BUN -- 16 15 CR -- 1.23 1.02 GFRESTIMATED -- 59* 73 GFRESTBLACK -- 71 88 LION -- 9.2 9.3 MAG -- -- -- PHOS -- -- -- PROTTOTAL -- -- 7.8 ALBUMIN -- -- 4.5 BILITOTAL -- -- 0.7 ALKPHOS -- -- 102 AST -- -- 34 ALT -- -- 49 Significant Imaging During Hospitalization: Recent Results (from the past 48 hour(s)) -CT ABDOMEN PELVIS W CONTRAST Narrative: CT ABDOMEN AND PELVIS WITH CONTRAST 01/09/2013 7:23 PM HISTORY: Abdominal pain. COMPARISON: None. TECHNIQUE: Routine transverse CT imaging of the abdomen and pelvis was performed following the uneventful administration of oral and 94 mL Isovue 370 intravenous contrast. FINDINGS: The visualized lung bases are clear. The liver, spleen, pancreas, gallbladder, adrenal glands, kidneys, and bladder are normal. No enlarged lymph node or other abnormal mass is demonstrated. No free fluid is seen. No free intraperitoneal gas is identified. There are numerous diverticula throughout the colon, especially the sigmoid colon. There is no evidence of diverticulitis or other gastrointestinal tract pathology. There is a normal-appearing appendix. There is mild calcification in the vascular structures. There are degenerative changes of the spine. The osseous structures are otherwise unremarkable. No abdominal or pelvic wall pathology is demonstrated. Impression: IMPRESSION: Colonic diverticulosis with no evidence of diverticulitis. LC ANGEL MD Pending Results: Unresulted Labs Ordered in the Past 30 Days of this Admission No orders found from 12/12/2012 to 01/11/2013. Consultations This Hospital Stay: No consultations were requested during this admission Discharge Instructions and Follow-Up: Follow-Up Appointment Instructions Follow-up and recommended labs and tests Comments: Follow up with primary care provider in 3 days if symptoms have not resolved. No follow up labs or test are needed. Discharge Disposition: Discharged to home Discharge Medications: Current Discharge Medication List CONTINUE these medications which have NOT CHANGED Details Holladay-3 Fatty Acids (FISH OIL PO) Take 300 mg by mouth daily Multiple Vitamins-Minerals (CENTRUM SILVER ULTRA MENS PO) Take 1 tablet by mouth daily ibuprofen (ADVIL,MOTRIN) 600 MG tablet Take 1 tablet (600 mg) by mouth every 6 hours as needed for pain Qty: 30 tablet, Refills: 1 HYDROcodone-acetaminophen (NORCO) 5-325 MG per tablet Take 1-2 tablets by mouth every 4 hours as needed for pain Qty: 15 tablet, Refills: 0 ondansetron (ZOFRAN ODT) 4 MG disintegrating tablet Take 1 tablet (4 mg) by mouth every 8 hours as needed for nausea Qty: 10 tablet, Refills: 0 hydrochlorothiazide (HYDRODIURIL) 25 MG tablet Take 1 tablet by mouth daily. Qty: 90 tablet, Refills: 3 Associated Diagnoses: Hypertension goal BP (blood pressure) < 140/90 omeprazole (PRILOSEC) 40 MG capsule Take 1 capsule by mouth daily. Qty: 90 capsule, Refills: 3 Associated Diagnoses: Esophageal reflux doxazosin (CARDURA) 4 MG tablet Take 1 tablet by mouth At Bedtime. Qty: 90 tablet, Refills: 3 Associated Diagnoses: Hypertrophy of prostate without urinary obstruction and other lower urinary tract symptoms (LUTS) simvastatin (ZOCOR) 40 MG tablet Take 0.5 tablets by mouth At Bedtime. Qty: 45 tablet, Refills: 4 Associated Diagnoses: Hyperlipidemia LDL goal <130 Glucosamine HCl 1000 MG TABS Take by mouth 2 times daily. Allergies: Allergies Allergen Reactions ??? Mometasone Furoate Monohydrate gets bloody noses from Nasonex ??? Quinazolines get bloody noses from Flomax Condition and Physical on Discharge: Discharge condition: Stable Vitals: Blood pressure 142/80, pulse 60, temperature 97 ??F (36.1 ??C), temperature source Oral, resp. rate 16, height 1.753 m (5' 9.02), weight 96 kg (211 lb 10.3 oz), SpO2 96.00%. 211 lbs 10.27 oz GENERAL: Comfortable, no acute distress PSYCH: pleasant, oriented. HEENT: Normal conjunctiva, normal hearing, nasal mucosa and Oropharynx are normal. HEART: Normal S1, S2 with no murmur, no pericardial rub, gallops or S3 or S4. LUNGS: Clear to auscultation, normal Respiratory effort. No wheezing, rales or ronchi. ABDOMEN: Soft, normal bowel sounds. Non-tender, non distended. EXTREMITIES: No pedal edema, +2 pulses bilateral and equal. SKIN: Dry to touch, No rash, wound or ulcerations. NEUROLOGIC: CN II-XII intact, BL 5/5 symmetric upper and lower extremity strength, sensation is intact with no focal deficits. Deedee Poole PA-C F CREATIVE OFFICER Charlie Alexander MD - 01/10/2013 4:19 PM CST Patient seen and examined by me independently .Medical records reviewed and plan of care was discussed with Deedee Poole PA-C I agree with discharge summary F CREATIVE OFFICER documented in this encounter Medications at Time of Discharge Medication Sig Dispensed Refills Start Date End Date Multiple Vitamins-Minerals Take 1 tablet by 0 (CENTRUM SILVER ULTRA MENS mouth daily PO) ondansetron (ZOFRAN ODT) 4 Take 1 tablet (4 10 tablet 0 06/201201/12/2013 MG disintegrating tablet mg) by mouth every 8 hours as needed for nausea doxazosin (CARDURA) 4 MG Take 1 tablet by 90 tablet 3 08/0710/07/2013 tabletIndications: mouth At Hypertrophy of prostate Bedtime. without urinary obstruction and other lower urinary tract symptoms (LUTS) Glucosamine HCl 1000 MG TABS Take by mouth 2 0 01/15/2013 times daily. hydrochlorothiazide Take 1 tablet by 90 tablet 3 08/07/2012 10/07/2013 (HYDRODIURIL) 25 MG mouth daily. tabletIndications: Hypertension goal BP (blood pressure) < 140/90 HYDROcodone-acetaminophen Take 1-2 tablets 15 tablet 0 06/201204/23/2013 (NORCO) 5-325 MG per tablet by mouth every 4 hours as needed for pain ibuprofen (ADVIL,MOTRIN) 600 Take 1 tablet 30 tablet 1 06/201210/07/2013 MG tablet (600 mg) by mouth every 6 hours as needed for pain Holladay-3 Fatty Acids (FISH Take 300 mg by 0 04/23/2013 OIL PO) mouth daily omeprazole (PRILOSEC) 40 MG Take 1 capsule 90 capsule 3 04/201201/16/2013 capsuleIndications: by mouth daily. Esophageal reflux oxyCODONE (ROXICODONE) 5 MG Take 1-2 tablets 15 tablet 0 01/15/2013 immediate release (5-10 mg) by tabletIndications: Abdominal mouth every 4 pain, generalized hours as needed Take 1-2 tablets (5-10 mg) by mouth every 4 hours as needed for moderate to severe pain simvastatin (ZOCOR) 40 MG Take 0.5 tablets 45 tablet 4 04/201209/08/2013 tabletIndications: by mouth At Hyperlipidemia LDL goal <130 Bedtime. documented as of this encounter Progress Notes Charlie Alexander MD - 01/10/2013 12:48 PM CST Patient seen and examined.Medical records reviewed and plan of care from the previous attending physician earlier today was discussed with the patient and ION Adamson Patient has intermittent abdominal pain but no diarrhea or flu like symptoms Studies reviewed and was unremarkable for acute pathology Plan to monitor him closely ADAT Pain medication-oral.iv May discharge later today or in am if he improves May need re-imaging if symptoms get worse F CREATIVE OFFICER Ivone Montero CM - 01/10/2013 9:30 AM CST Care Transitions Assessment: Spoke with the patient at the bedside. Confirmed demographics and that Dr. Velazquez is pts PCP. Pt agreeable for d/c appt facilitation. Appt scheduled for 01/15 at 1100. Pt updated and denies any further needs for discharge. Ivone Montero RN, BSN Care Callisthenics Instructor [phone] F CREATIVE OFFICER Snow Allen PA-C - 01/10/2013 9:20 AM CST Patient seen and examined. Abdominal pain mostly resolved. He is no longer nauseous and is requesting PO trial. No diarrhea. Potassium has been replaced and is now 3.4. Abdominal exam benign. Will decrease rate of IVF to 75cc/hr, start clear liquids and PO analgesics. Switch IV analgesic to morphine PRN as dilaudid caused nausea. Snow Allen PA-C F CREATIVE OFFICER documented in this encounter H&P Notes Aftab Givens MD - 01/10/2013 6:24 AM CST [facility] Hospitalist Admission Note Name: Terry Montero Date of : 1945 Age: [age] year old Date of admission: 01/10/2013 Primary care provider: Nasir Velazquez Assessment and Plan: Relatively healthy 67-year-old man who presented to the emergency room twice last evening with diffuse abdominal pain and recurrent vomiting, he had a negative workup including a CT scan of the abdomen, CBC, liver function tests, lipase, urinalysis. At this stage it is prudent to manage patient's symptom under observation and do a serial abdominal exam and if needed repeat a CBC 1. Abdominal pain nausea and vomiting likely from viral gastritis, there is no evidence of pancreatitis, there is no bowel ischemia with normal lactate and no risk factor, unlikely it is biliary pain with normal liver function test and no tenderness on exam, no evidence of aortic aneurysm 2. Record shows history of peptic ulcer with bleed however patient reports only GERD, anyway at thisstage there is no evidence of bleeding 3. Hypokalemia Keep on observation IV fluid and electrolyte replacement IV antiemetic and morphine if needed intravenously for pain Serial abdominal exam Depending on symptom control likely can be home in the next 24 hours Chief Complaint: Abdominal pain and vomiting for last 24 hours History of Present Illness: Terry Montero is a 67 year old male who presents with Abdominal Pain this is his second visit tonight to the emergency room he was diagnosed with viral gastritis earlier and sent home with Vicodin, he vomited at home and felt that he cannot control his symptom at home taken back to the emergency room. Symptoms started the night before last with nausea and recurrent vomiting, diffuse abdominal pain mostly in the epigastrium. His is not sick his only one sick at home and he does not suspect any food poisoning. He has not had any previous abdominal surgery nor history of pancreatitis. He denies any fever chills, lightheadedness, he denies any chest pain or shortness of breath, he did have a normal bowel movement during the day, denies any bleeding in the vomitus any melena or blood in stool. Rest of the review of systems negative Past Medical History: Past Medical History Diagnosis Date ??? Essential hypertension, benign 12/30/2002 ??? Acute duodenal ulcer with hemorrhage, without mention of obstruction 1997 ??? Pulmonary nodule CT reassuring 2008 BPH Past Surgical History: Past Surgical History Procedure Date ??? Hc colonoscopy thru stoma, diagnostic 2002 Social History: History Substance Use Topics ??? Smoking status: Former Smoker Quit date: 02/06/1984 ??? Smokeless tobacco: Never Used ??? Alcohol Use: 1.0 oz/week Comment: moderate Patient lives with his , he is retired he used to work for [employer] in the [email or web address] Family History: Family History Problem Relation Age of Onset ??? Diabetes Maternal Grandmother ??? Stroke Maternal Grandmother in old age ??? C.A.D. Maternal Uncle [place] ??? Colon CA Maternal Uncle ??? Prostatic CA Paternal Grandfather 84 ??? Prostatic CA Other Cousin ??? Heart Brother stent - 66 ??? Prostatic CA Brother no cancer, but a produre due reduce the prostate ??? Cancer Sister bone caner/lung cancer Allergies: Allergies Allergen Reactions ??? Mometasone Furoate Monohydrate gets bloody noses from Nasonex ??? Quinazolines get bloody noses from Flomax Medications: Prior to Admission medications Medication Sig Last Dose Taking? Auth Provider ibuprofen (ADVIL,MOTRIN) 600 MG tablet Take 1 tablet (600 mg) by mouth every 6 hours as needed for pain Yes Mckay Lizama MD HYDROcodone-acetaminophen (NORCO) 5-325 MG per tablet Take 1-2 tablets by mouth every 4 hours as needed for pain Yes Mckay Lizama MD ondansetron (ZOFRAN ODT) 4 MG disintegrating tablet Take 1 tablet (4 mg) by mouth every 8 hours as needed for nausea Yes Mckay Lizama MD hydrochlorothiazide (HYDRODIURIL) 25 MG tablet Take 1 tablet by mouth daily. Yes Nasir Velazquez MD omeprazole (PRILOSEC) 40 MG capsule Take 1 capsule by mouth daily. Yes Nasir Velazquez MD doxazosin (CARDURA) 4 MG tablet Take 1 tablet by mouth At Bedtime. Yes Nasir Velazquez MD simvastatin (ZOCOR) 40 MG tablet Take 0.5 tablets by mouth At Bedtime. Yes Nasir Velazquez MD Glucosamine HCl 1000 MG TABS Take by mouth 2 times daily. Yes Reported, Patient fish oil-omega-3 fatty acids (FISH OIL) 1000 MG capsule Take 1 capsule by mouth 2 times daily. Yes Nasir Velazquez MD Multiple Vitamin (ONE-A-DAY MENS) TABS Take 1 tablet by mouth daily. Yes Nasir Velazquez MD Review of Systems: A Comprehensive greater than 10 system review of systems was carried out. Pertinent positives and negatives are noted. Otherwise negative for contributory information. Physical Exam: Blood pressure 128/68, temperature 95.8 ??F (35.4 ??C), temperature source Oral, resp. rate 20, height 1.753 m (5' 9.02), weight 96 kg (211 lb 10.3 oz), SpO2 95.00%. Wt Readings from Last 1 Encounters: 01/10/13 96 kg (211 lb 10.3 oz) EXAM: General Appearance: Comfortable. NAD HEENT: Normal HEENT exam. PERRLA, Normal Conjunctiva Psychiatric: mentation appears normal, affect normal and patient appearance is normal Neck: Neck supple. No adenopathy. Thyroid symmetric, normal size Lungs: Normal effort. Breath sounds clear to auscultation. No wheezes, rhonchi or decreased breath sounds. Heart: Regular rhythm. S1 normal and S2 normal. No murmur or friction rub. No edema Chest: symmetric chest wall expansion. No chest wall tenderness. Skin: Warm and dry. No rash or ulceration. Abdomen: Bowel sounds are normal. There is mild diffuse abdominal tenderness. There is no splenomegaly. There is no hepatomegaly. Neuro: non focal with normal sensation, motor power and reflexes. Data: Imaging: CT scan of the abdomen done earlier in the emergency room showed evidence of diverticulosiswith no diverticulitis NA 139 01/10/2013 CHLORIDE 100 01/10/2013 BUN 16 01/10/2013 BUN 14 08/14/2003 POTASSIUM 3.0 01/10/2013 CO2 26 01/10/2013 CR 1.23 01/10/2013 Lab Results Component Value Date WBC 6.5 01/10/2013 HGB 13.0* 01/10/2013 HCT 37.7* 01/10/2013 MCV 86 01/10/2013 PLT 150 01/10/2013 F CREATIVE OFFICER documented in this encounter ED Notes Kae Snow RN - 01/10/2013 2:42 PM CST Up walking the halls. States nausea improved with ambulating. Wants to try eating in a few hours andthen go home F CREATIVE OFFICER Volodymyr Paulson MD - 01/10/2013 4:03 AM CST History Chief Complaint: Abdominal Pain HPI Terry Montero is a 67 year old male who presents for the second time in 24 hours for evaluation of abdominal pain. The patient reports that two nights ago he developed mild lower abdominal pain,and yesterday afternoon his pain became intermittently severe occurring every couple of minutes, prompting him to come to the ED last night. He was discharged after having a normal CT scan with a prescription for Vicodin and Zofran. He continues that his abdominal pain returned has become constant, not alleviated with his prescribed Vicodin most recently taken 1 hour ago, prompting him to return to the ED. The pain is primarily periumbilical, cramping and non-radiating. Here, the patient states thathe vomited just prior to arrival. The pain has no exacerbating or alleviating factors. He denies diarrhea, bloody stools, fevers or chills, dysuria, frequency, or any other complaints. Allergies: Mometasone Furoate Monohydrate Quinazolines Medications: Advil Vicodin Zofran Hydrochlorothiazide Omeprazole Doxazosin Simvastatin Fluticasone Glucosamine Fish oil Multivitamin Past Medical History: Hypertension Acute duodenal ulcer with hemorrhage Hyperlipidemia GERD Pulmonary nodule Past Surgical History: Colonoscopy Family History: The patient reports a maternal history of diabetes, stroke, and GA. The patient reports a paternal history of prostatic caner. The patient denies any other relevant family history. Social History: The patient is . The patient is a former smoker, quitting in 1984, and reports moderate alcohol use. Review of Systems Constitutional: Negative for fever and chills. Respiratory: Negative for shortness of breath. Cardiovascular: Negative for chest pain. Gastrointestinal: Positive for nausea, vomiting and abdominal pain (lower). Negative for diarrhea. Genitourinary: Negative for dysuria and frequency. All other systems reviewed and are negative. Physical Exam First Vitals: BP: 133/81 mmHg Heart Rate: 59 Resp: 20 Height: 175.3 cm (5' 9) Weight: 90.719 kg (200 lb) Physical Exam Constitutional: Non-toxic appearance. Pleasant, mildly ill appearing male. HENT: Mouth/Throat: Oropharynx is clear and moist. Eyes: Conjunctivae normal are normal. Neck: Trachea normal. Neck supple. Cardiovascular: Normal rate, regular rhythm and normal heart sounds. No murmur heard. Pulmonary/Chest: Effort normal and breath sounds normal. No respiratory distress. Abdominal: Soft. Normal appearance. He exhibits no distension. There is no rebound, no guarding and no CVA tenderness. Mild umbilical tenderness. No rebound or guarding. No pulsatile mass. Musculoskeletal: No gross deformity to all four extremities. Lymphadenopathy: He has no cervical adenopathy. Neurological: He is alert. He exhibits normal muscle tone. Skin: Skin is warm, dry and intact. Psychiatric: He has a normal mood and affect. His speech is normal and behavior is normal. Emergency Department Course Laboratory: CBC: HGB 13.0 (low), HCT 37.7 (low), o/w WNL (WBC 6.5, PLT 150) Lactic acid: 1.1 BMP: Potassium 3.0 (low), Glucose 127 (high), GFR estimate 59 (low), o/w WNL (Creatinine 1.23) ED Interventions: Normal Saline 1L IV injection Dilaudid 1mg IV injection Zofran 4mg IV injection Reglan 10 mg IV injection K-dur 40mEq tablet PO Morphine 4mg IV injection Emergency Department Course: I examined the patient. Plan of care discussed. The patient agrees with this plan. IV inserted and blood drawn. The patient was placed on continuous pulse oximetry and cardiac monitoring. 5:23 AM I discussed the patient with the admitting hospitalist, Dr. Givens. Findings and plan explained to the Patient who consents to admission. [facility] for further observation, evaluation, and treatment. Impression & Plan Medical Decision Making: Terry Montero is a 67 year old male who presents to the emergency department with abdominal pain and vomiting after recent negative CT scan. Clinically the patient appears well but did have significant recurrent vomiting in the emergency department, and abdominal pain requiring morphine. The patient has no developing leukocytosis to signal developing significant intra-abdominal abscess. He hasno significant electrolyte disturbance other than mild hypokalemia with no significant evidence of intravascular volume depletion. Lactic is not elevated and other than advanced age, he does not have risk factors for mesenteric ischemia. I feel that his symptoms are most likely secondary to an enteritis and likely viral in nature. The patient's symptoms did improve in the ED, but did require recurrent anti emetics and analgesics. The patient feels uncomfortable going home. The patient will be admitted to the observation unit for further symptomatic treatment of suspected viral enteritis. Diagnosis: 1. Abdominal pain 2. Hypokalemia 3. Vomiting I Alfredo Beal, am serving as a scribe at 4:03 AM on 01/10/2013 to document services personally performed by Volodymyr Paulson MD, based on my observations and the provider's statements to me. Volodymyr Paulson MD 01/10/13 0528 F CREATIVE OFFICER Nunu Carmen RN - 01/10/2013 3:56 AM CST Pt was seen earlier return of lower abdominal pain 11/14. F CREATIVE OFFICER documented in this encounter Miscellaneous Notes Plan of Care - Pablo Dias RN - 01/10/2013 8:00 PM CST Problem: IP GENERAL POC-ADULT,OB,BEHAVIORAL FVCPM Goal: Individualization/Patient-Specific Goal (Adult,OB,Behavioral The patient and/or their outside medical sales representative will achieve their patient-specific goals related to the plan of care. The patient-specific goals include: 1. Decrease Nausea, vomiting and abd pain 2. Tolerate PO intake Outcome: Improving PRIMARY DIAGNOSIS: GASTROENTERITIS Primary Symptoms: nausea, ab pain OUTPATIENT/OBSERVATION GOALS TO BE MET BEFORE DISCHARGE: 1. No orthostatic symptoms (BP decrease or HR increase with patient upright): Yes 2. Documented urine output: Yes 3. Tolerating PO fluid: Yes 4. Nausea/Vomiting/Diarrhea (if present) symptoms improved: Yes Please review provider orders for any additional goals. Goal: Discharge Planning (Adult, OB, Behavioral, Peds) Pt. Ate oatmeal, pudding, and toast. Pt. Waited to tolerate food prior to discharge. Pt. Able to tolerate food. Pt. Will go home with oxycodone prescription. F CREATIVE OFFICER Plan of Care - Pablo Dias RN - 01/10/2013 6:50 PM CST Problem: IP GENERAL POC-ADULT,OB,BEHAVIORAL [facility]CPM Goal: Individualization/Patient-Specific Goal (Adult,OB,Behavioral The patient and/or their outside medical sales representative will achieve their patient-specific goals related to the plan of care. The patient-specific goals include: 1. Decrease Nausea, vomiting and abd pain 2. Tolerate PO intake Outcome: Improving PRIMARY DIAGNOSIS: GASTRO ENTERITIS Primary Symptoms: nausea, abdominal pain OUTPATIENT/OBSERVATION GOALS TO BE MET BEFORE DISCHARGE: 1. No orthostatic symptoms (BP decrease or HR increase with patient upright): Yes 2. Documented urine output: Yes 3. Tolerating PO fluid: Yes 4. Nausea/Vomiting/Diarrhea (if present) symptoms improved: Yes Pt. Expressed interest in trying more solid food prior to discharge. Pt. Thinks nausea related to pain medication, but wants to ensure he does not have anymore abdominal pain Please review provider orders for any additional goals. F CREATIVE OFFICER Plan of Care - Lynette Arshad RN - 01/10/2013 12:41 PM CST Problem: IP GENERAL POC-ADULT,OB,BEHAVIORAL [facility]CPM Goal: Discharge Planning (Adult, OB, Behavioral, Peds) .PRIMARY DIAGNOSIS: GASTROENTERITIS Primary Symptoms: nausea OUTPATIENT/OBSERVATION GOALS TO BE MET BEFORE DISCHARGE: 1. No orthostatic symptoms (BP decrease or HR increase with patient upright): Yes 2. Documented urine output: Yes 3. Tolerating PO fluid: No 4. Nausea/Vomiting/Diarrhea (if present) symptoms improved: No Please review provider orders for any additional goals. F CREATIVE OFFICER Pharmacy-Admission Medication History - Chelsie Patino RPH - 01/10/2013 9:14 AM CST Admission medication history interview status for this observation patient is complete. See [facility] admission navigator for allergy information, prior to admission medications and immunization status. Medication history interview source(s): Patient Medication history resources (including written lists, pill bottles, clinic record): None Primary pharmacy: [facility] in [place], Changes made to SECURITY SYSTEMS MANAGER medication list: Added: none Deleted: no longer taking glucosamine Changed: updated doses/directions for all SECURITY SYSTEMS MANAGER medications Actions taken by pharmacist (provider contacted, etc): None Home medications brought in with patient: Patient does not currently have any home medications with him, except the prescriptions for [place], Zofran, and Motrin which were filled here yesterday after patient's ED visit. Prior to Admission medications Medication Sig Last Dose Taking? Auth Provider [place]-3 Fatty Acids (FISH OIL PO) Take 300 mg by mouth daily 01/09/2013 at PM Yes Dummy, Bfp User Multiple Vitamins-Minerals (CENTRUM SILVER ULTRA MENS PO) Take 1 tablet by mouth daily 01/09/2013 at AM Yes Dummy, Bfp User ibuprofen (ADVIL,MOTRIN) 600 MG tablet Take 1 tablet (600 mg) by mouth every 6 hours as needed for pain 01/09/2013 at PM Yes Mckay Lizama MD HYDROcodone-acetaminophen (NORCO) 5-325 MG per tablet Take 1-2 tablets by mouth every 4 hours as needed for pain ER visit 01/09/13 Yes Mckay Lizama MD ondansetron (ZOFRAN ODT) 4 MG disintegrating tablet Take 1 tablet (4 mg) by mouth every 8 hours as needed for nausea ER visit 01/09/13 Yes Mckay Lizama MD hydrochlorothiazide (HYDRODIURIL) 25 MG tablet Take 1 tablet by mouth daily. 01/09/2013 at AM Yes Nasir Velazquez MD omeprazole (PRILOSEC) 40 MG capsule Take 1 capsule by mouth daily. 01/09/2013 at PM Yes Nasir Velazquez MD doxazosin (CARDURA) 4 MG tablet Take 1 tablet by mouth At Bedtime. 01/09/2013 at PM Yes Nasir Velazquez MD simvastatin (ZOCOR) 40 MG tablet Take 0.5 tablets by mouth At Bedtime. 01/09/2013 at PM Yes Nasir Velazquez MD Glucosamine HCl 1000 MG TABS Take by mouth 2 times daily. More than a month No Reported, Patient F CREATIVE OFFICER Plan of Lynette Liang RN - 01/10/2013 8:58 AM CST Problem: IP GENERAL POC-ADULT,OB,BEHAVIORAL [facility]CPM Goal: Discharge Planning (Adult, OB, Behavioral, Peds) PRIMARY DIAGNOSIS: GASTROENTERITIS Primary Symptoms: nausea OUTPATIENT/OBSERVATION GOALS TO BE MET BEFORE DISCHARGE: 1. No orthostatic symptoms (BP decrease or HR increase with patient upright): No 2. Documented urine output: Yes 3. Tolerating PO fluid: No 4. Nausea/Vomiting/Diarrhea (if present) symptoms improved: No Please review provider orders for any additional goals. F CREATIVE OFFICER Plan of Lynette Liang RN - 01/10/2013 8:11 AM CST Problem: IP GENERAL POC-ADULT,OB,BEHAVIORAL [facility]VCPM Goal: Discharge Planning (Adult, OB, Behavioral, Peds) PRIMARY DIAGNOSIS: GASTROENTERITIS Primary Symptoms: nausea OUTPATIENT/OBSERVATION GOALS TO BE MET BEFORE DISCHARGE: 1. No orthostatic symptoms (BP decrease or HR increase with patient upright): Yes 2. Documented urine output: Yes 3. Tolerating PO fluid: No 4. Nausea/Vomiting/Diarrhea (if present) symptoms improved: no Please review provider orders for any additional goals. F CREATIVE OFFICER Plan of [place] - Suze Carranza RN - 01/10/2013 7:09 AM CST Problem: IP GENERAL POC-ADULT,OB,BEHAVIORAL [facility]VCPM Goal: Discharge Planning (Adult, OB, Behavioral, Peds) PRIMARY DIAGNOSIS: GASTROENTERITIS Primary Symptoms: nausea and vomiting OUTPATIENT/OBSERVATION GOALS TO BE MET BEFORE DISCHARGE: 1. No orthostatic symptoms (BP decrease or HR increase with patient upright): Yes 2. Documented urine output: Yes 3. Tolerating PO fluid: Yes 4. Nausea/Vomiting/Diarrhea (if present) symptoms improved: No Please review provider orders for any additional goals. F CREATIVE OFFICER documented in this encounter Plan of Treatment Not on filedocumented as of this encounter Procedures Procedure Name Priority Date/Time Associated Diagnosis Comme nts POTASSIUM STAT 01/10/2013 7:14 AM Results f or this CHIEF CREATIVE OFFICER procedure are i n the results section. LACTIC ACID STAT 01/10/2013 4:00 AM Results f or this CHIEF CREATIVE OFFICER procedure are i n the results section. BASIC METABOLIC Routine 01/10/2013 4:00 AM Result s for this PANEL CHIEF CREATIVE OFFICER procedure are i n the results section. CBC WITH PLATELETS STAT 01/10/2013 4:00 AM Res ults for this CHIEF CREATIVE OFFICER procedure are i n the results section. documented in this encounter Results Potassium (01/10/2013 7:14 AM CHIEF CREATIVE OFFICER) athologist Signature Potassium 3.4 3.4 - 5.3 [facility] mmol/L [facility] Specimen Anatomical Collection Method Collection Time Receive d Time (Source) Location / / Volume Laterality Blood specimen 01/10/2013 7:14 AM 013 7:20 (specimen) CHIEF CREATIVE OFFICER AM CHIEF CREATIVE OFFICER Charlie Alexander MD LAB - BLOOD ORDERABLES Performing Organization Address City/State/ZIP Code Phon e Number M [place] [id number] [address] [facility] (ABNORMAL) Basic metabolic panel (01/10/2013 4:00 AM CHIEF CREATIVE OFFICER) athologist Signature Sodium 139 133 - 144 [place] mmol/L [facility] Potassium 3.0 (L) 3.4 - 5.3 [place] mmol/L [facility] Chloride 100 94 - 109 [place] mmol/L [facility] Carbon Dioxide 26 20 - 32 [place] mmol/L [facility] Anion Gap 13 6 - 17 [place] mmol/L [facility] Glucose 127 (H) 60 - 99 [place] mg/dL [facility] Urea Nitrogen 16 7 - 30 [place] mg/dL [facility] Creatinine 1.23 0.66 [facility] 1.25 mg/dL [facility] GFR Estimate 59 (L) >60 [place] mL/min/1.7 [facility] m2 [facility] GFR Estimate If 71 >60 [place] Black mL/min/1.[address] LAB Calcium 9.2 8.5 - 10.4 [place] mg/dL [facility] Specimen Anatomical Collection Method Collection Time Receive d Time (Source) Location / / Volume Laterality 01/10/2013 4:00 AM 3 4:13 CHIEF CREATIVE OFFICER AM CHIEF CREATIVE OFFICER Volodymyr Paulson MD LAB - BLOOD ORDERABLES Performing Organization Address City/[facility]/ZIP Code Phon e Number M [facility] [address] [place], [place] [address] [facility] (ABNORMAL) CBC (platelets, no diff) (01/10/2013 4:00 AM CHIEF CREATIVE OFFICER) Analysis Performed At Patho logist Time Signature WBC 6.5 4.0 - 11.0 [place] 10e9/L [facility] RBC Count 4.40 4.4 - 5.9 [place] 10e12/L [facility] Hemoglobin 13.0 (L) 13.3 - [place] 17.7 g/dL [facility] Hematocrit 37.7 (L) 40.0 - [place] 53.0 % [facility] MCV 86 78 - 100 [facility] MCH 29.5 26.5 - [place] 33.0 pg [facility] MCHC 34.5 31.5 - [place] 36.5 g/dL [facility] RDW 13.5 10.0 - [place] 15.0 % [facility] Platelet Count 150 150 - 450 [place] 10e9L [facility] Specimen Anatomical Collection Method Collection Time Receive d Time (Source) Location / / Volume Laterality Blood specimen 01/10/2013 4:00 AM 013 4:13 (specimen) CHIEF CREATIVE OFFICER AM CHIEF CREATIVE OFFICER Volodymyr Paulson MD LAB - BLOOD ORDERABLES Performing Organization Address City/[facility]/ZIP Code Phon e Number [facility] [address], [place] [address] [facility] Lactic acid (01/10/2013 4:00 AM CHIEF CREATIVE OFFICER) P athologist Signature Lactic Acid 1.1 0.7 - 2.1 [place] mmol/L [facility] Specimen Anatomical Collection Method Collection Time Receive d Time (Source) Location / / Volume Laterality Blood specimen 01/10/2013 4:00 AM 013 4:13 (specimen) CHIEF CREATIVE OFFICER AM CHIEF CREATIVE OFFICER Volodymyr Paulson MD LAB - BLOOD ORDERABLES Performing Organization Address City/State/ZIP Code Phon e Number M [facility] [address] [place], [place] [address] [facility] documented in this encounter Visit Diagnoses Diagnosis Nausea with vomiting - Primary Abdominal pain, generalized Hypokalemia Hypopotassemia HYPERTROPHY of PROSTATE Hypertrophy of prostate without urinary obstruction and other lower urinary tract symptoms (LUTS) Esophageal reflux Hyperlipidemia LDL goal <130 Other and unspecified hyperlipidemia Gastroenteritis Other and unspecified noninfectious dee roenteritis and colitis documented in this encounter Administered Medications Inactive Administered Medications - up to 3 most recent administrations Medication Order MAR Action Action Date Dose Rate Site dextrose 5 % and 0.45 % NaCl + New Bag 01/10/2013 5:30 PM CHIEF CREATIVE OFFICER 75 mL/hr KCl 20 mEq/L at 75 mL/hr, Intravenous, CONTINUOUS, Change to saline lock when PO well tolerated., Starting on Sun01/10/13 at 0630, Until Sun01/10/13 at 2237 Rate/Dose Change 01/10/2013 10:16 AM CHIEF CREATIVE OFFICER 75 mL/hr Rate/Dose Verify 01/10/2013 7:31 AM CHIEF CREATIVE OFFICER 125 mL/hr HYDROmorphone (PF) (DILAUDID) injection 0.5 Given 01/10/2013 4:16 AM CHIEF CREATIVE OFFICER 0.5 mg mg 0.5 mg, Intravenous, ONCE, On Sun01/10/13 at 0415, For 1 dose metoclopramide (REGLAN) injection 10 mg Given 01/10/2013 4:30 AM CHIEF CREATIVE OFFICER 10 mg 10 mg, Intravenous, ONCE, On Sun01/10/13 at 0430, For 1 dose, Avoid use if patient has full bowel obstruction or perforation. morphine (PF) injection 4 mg Given 01/10/2013 5:09 AM CHIEF CREATIVE OFFICER 4 mg 4 mg, Intravenous, ONCE, On Sun01/10/13 at 0515, For 1 dose omeprazole (priLOSEC) capsule 40 mg Given 01/10/2013 12:35 PM CHIEF CREATIVE OFFICER 40 mg 40 mg, Oral, DAILY, First dose on Sun01/10/13 at 0800 ondansetron (ZOFRAN) injection 4 mg Given 01/10/2013 4:16 AM CHIEF CREATIVE OFFICER 4 mg 4 mg, Intravenous, ONCE, Administer over 2-5 Minutes, On Sun01/10/13 at 0415, For 1 dose potassium chloride SA (K-DUR,KLOR-CON M) CR Given 01/10/2013 5:07 AM CHIEF CREATIVE OFFICER 40 mEq tablet 40 mEq 40 mEq, Oral, ONCE, On Sun01/10/13 at 0500, For 1 dose, DO NOT CRUSH. sodium chloride (PF) 0.9% PF flush 3 mL Given 01/10/2013 6:49 AM CHIEF CREATIVE OFFICER 3 mLs 3 mL, Intravenous, EVERY 8 HOURS, First dose on Sun01/10/13 at 0630, And Q1H PRN, to lock peripheral IV dormant line. sodium chloride 0.9 % BOLUS New Bag 01/10/2013 4:15 AM CHIEF CREATIVE OFFICER 1,000 m Ls 1000 mL/hr 1,000 mL Intravenous, 1,000 mL, ONCE, at 1,000 mL/hr, Administer over 1 Hours, On Sun01/10/13 at 0415, For 1 dose documented in this encounter Active and Recently Administered Medications Times are shown in CHIEF CREATIVE OFFICER. Scheduled Medication Order 01/08/2013 01/09/2013 01/10/2013 HYDROmorphone (PF) (DILAUDID) injection 0.5 mg (COMPLETED) 0416 (Given - Provider: Ally Leon RN) 0.5 mg, Intravenous, ONCE, 1 dose, Sun01/10/13 at 0415 metoclopramide (REGLAN) injection 10 mg (COMPLETED) 0430 (Given - Provider: Ally Leon RN) 10 mg, Intravenous, ONCE, Sun01/10/13 at 0430, For 1 dose, Avoid use if patient has full bowel obstruction or perforation. morphine (PF) injection 4 mg (COMPLETED) 0509 (Given - Provider: Ally Leon RN) 4 mg, Intravenous, ONCE, Sun01/10/13 at 0515, For 1 dose omeprazole (priLOSEC) capsule 40 mg (CANCELED) 1016 (Not Given - Provider: Lynette Arshad RN - Reason: Patient/family refused - Comment: wants to wait and may ask for this med later.)1235 (Given - Provider: Lynette Arshad RN) 40 mg, Oral, DAILY, First dose on Sun01/10/13 at 0800 ondansetron (ZOFRAN) injection 4 mg (COMPLETED) 0416 (Given - Provider: Ally Leon, ALVERTO) 4 mg, Intravenous, ONCE, for 2 Minutes, Sun01/10/13 at 0415, For 1 dose potassium chloride SA (K-DUR,KLOR-CON M) CR tablet 40 mEq (COMPL ETED) 0507 (Given - Provider: Ally Leon, RN) 40 mEq, Oral, ONCE, Sun01/10/13 at 0500, For 1 dose, DO NOT THIEN H. sodium chloride (PF) 0.9% PF flush 3 mL (CANCELED) 0649 (Given - Provider: Suze Carranza RN)1427 (Not Given - Provider: Lynette Arshad RN - Reason: IV Infusing) 3 mL, Intravenous, EVERY 8 HOURS, First dose on Sun01/10/13 at 0630, And Q1H PRN, to lock peripheral IV dormant line. sodium chloride 0.9 % BOLUS 1,000 mL (COMPLETED) 041 (New Bag - Provider: Ally Leon RN) Intravenous, 1,000 mL, ONCE, at 1,000 mL /hr, for 1 Hours, Sun01/10/13 at 0415, For 1 dose Continuous Medication Order 01/08/2013 01/09/2013 01/10/2013 dextrose 5 % and 0.45 % NaCl + KCl 20 mEq/L (CANCELED) 0657 (Started - Provider: Suze Carranza RN)0731 (Rate/Dose Verify - Provider: Lynette Arshad RN)1016 (Rate/Dose Change - Provider: Lynette Arshad, ALVERTO)1730 (New Bag - Provider: George Lantigua, RN)1823 (Stopped - Provider: Pablo Dias, RN) at 75 mL/hr, Intravenous, CONTINUOUS, Ch evaristo to saline lock when PO well tolerated. PRN Medication Order 01/08/2013 01/09/2013 01/10/2013 oxyCODONE (ROXICODONE) immediate release tablet 5-10 mg 5-10 mg, Oral, EVERY 3 HOURS PRN, modera te to severe pain, Starting Sun01/10/13 at 0621 documented in this encounter Care Teams Siebel Consultant Relationship Specialty Start Date End Date Nasir Velazquez MD PCP - General 02/18/99 10/06/13 [place] [id number] [place] [address] documented as of this encounter
--- OUTSIDE RECORDS SUMMARY | 2021-11-04 10:37 | XMS_ITS | Encounter Summary ---
:1945 Author Organization [place] Address [address] [place] [address] Care Team Providers Name Role Phone Sctotie Nicole MD Primary Care Provider [phone] Reason for Visit Auth/Cert - Closed Specialty Diagnoses / Procedures Referred By Contact Refer red To Contact Gastroenterology Diagnoses HX OF POLYPS Rh Endoscopy Procedures COLONOSCOPY [address] [place] [address] Phone: Fax: Referral ID Status Reason Start Date Expiration Date Visits Requ ested Visits Authorized [id number] Closed 1 1 Encounter Details Date Type Department Care Team Description 06/05/2013 Hospital Encounter [facility] Matthew Richardson , Endoscopy [facility] [address] [place], [place] GASTROINTESTINAL [phone] [phone] [place], [place] [id number] (Wo rk) Social History Tobacco Use Types [...] at Date Recorded 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 Understanding Diverticulosis and Diverticulitis Pouches or diverticula usually occur in the lower part of the colon called the sigmoid. Diverticulitis occurs when the pouches become inflamed. The colon (large intestine) is the last part of the digestive tract. It absorbs water from stool andchanges it from a liquid to a solid. In certain cases, small pouches called diverticula can form in the colon wall. This condition is called diverticulosis. The pouches can become infected. If this happens, it becomes a more serious problem called diverticulitis. These problems can be painful. But they can be managed. Managing Your Condition Diet changes or taking medications are often tried first. These may be enough to bring relief. If the case is bad, surgery may be done. You and your doctor can discuss the plan that is best for you. If You Have Diverticulosis Diet changes are often enough to control symptoms. The main changes are adding fiber (roughage) and drinking more water. Fiber absorbs water as it travels through your colon. This helps your stool staysoft and move smoothly. Water helps this process. If needed, you may be told to take [id number] stool softeners. To help relieve pain, antispasmodic medications may be prescribed. If You Have Diverticulitis Treatment depends on how bad your symptoms are. For mild symptoms: You may be put on a liquid diet for a short time. You may also be prescribed antibiotics. If these two steps relieve your symptoms, you may then be prescribed a high-fiber diet. If you still have symptoms, your doctor will discuss further treatment options with you. For severe symptoms: You may need to be admitted to the hospital. There, you can be given IV antibiotics and fluids. Once symptoms are under control, the above treatments may be tried. If these don???tcontrol your condition, your doctor may discuss the option of having surgery with you. [place] to Colon Health Help keep your colon healthy with a diet that includes plenty of high-fiber fruits, vegetables, and whole grains. Drink plenty of liquids like water and juice. Your doctor may also recommend avoiding seeds and nuts. ?? [id number] [facility], [address] [place] [address]. All rights reserved. This information is not intended as a substitute for professional medical care. Always follow your healthcare professional's instructions. documented in this encounter Medications at Time of Discharge Medication Sig Dispensed Refills Start Date End Date Multiple Vitamins-Minerals Take 1 tablet by 0 (CENTRUM SILVER ULTRA MENS mouth daily PO) doxazosin (CARDURA) 4 MG Take 1 tablet by 90 tablet 3 08/0710/07/2013 tabletIndications: mouth At Hypertrophy of prostate Bedtime. without urinary obstruction and other lower urinary tract symptoms (LUTS) doxazosin (CARDURA) 8 MG Take 0.5 tablets 45 tablet 3 05/0910/07/2013 tabletIndications: (4 mg) by mouth Hypertrophy of prostate At Bedtime without urinary obstruction and other lower urinary tract symptoms (LUTS) fish oil-omega-3 fatty acids Take 2 g by 0 10/07/2013 (FISH OIL) 1000 MG capsule mouth daily hydrochlorothiazide Take 1 tablet by 90 tablet 3 08/07/2012 10/07/2013 (HYDRODIURIL) 25 MG mouth daily. tabletIndications: Hypertension goal BP (blood pressure) < 140/90 ibuprofen (ADVIL,MOTRIN) 600 Take 1 tablet 30 tablet 1 12/06/201210/07/2013 MG tablet (600 mg) by mouth every 6 hours as needed for pain omeprazole (PRILOSEC) 40 MG Take 1 capsule 90 capsule 4 05/0610/07/2013 capsuleIndications: (40 mg) by mouth Esophageal reflux daily Take 30-60 minutes before a meal. simvastatin (ZOCOR) 40 MG Take 0.5 tablets 45 tablet 4 04/201209/08/2013 tabletIndications: by mouth At Hyperlipidemia LDL goal <130 Bedtime. documented as of this encounter H&P Notes Matthew Richardson MD - 06/05/2013 9:16 AM CDT Pre-Endoscopy History and Physical Terry Montero Date of : 1945 Age: [age] year old Date of Procedure: 06/05/2013 Primary care provider: Scottie Nicole Type of Endoscopy: Colonoscopy with possible biopsy, possible polypectomy Reason for Procedure: screen Type of Anesthesia Anticipated: Conscious Sedation HPI: Terry is a 68 year old male who will be undergoing the above procedure. A history and physical has been performed. The patient's medications and allergies have been reviewed. The risks and benefits of the procedure and the sedation options and risks were discussed with thepatient. All questions were answered and informed consent was obtained. He denies a personal or family history of anesthesia complications or bleeding disorders. Patient Active Problem List Diagnosis ??? Actinic keratosis ??? ALLERGIC RHINITIS NOS ??? HYPERTROPHY of PROSTATE ??? ESOPHAGEAL REFLUX ??? SCC (Squamous Cell Carcinoma), Face ??? MORENITA (Obstructive Sleep Apnea) ? ? HYPERLIPIDEMIA LDL GOAL <130 ??? History of peptic ulcer disease ? ? Hypertension goal BP (blood pressure) < 140/90 ??? Advanced directives, counseling/discussion ??? Gastroenteritis ??? Adenomatous polyp of colon Past Medical History Diagnosis Date ??? Essential hypertension, benign 12/30/2002 ??? Acute duodenal ulcer with hemorrhage, without mention of obstruction 1997 ??? Pulmonary nodule CT reassuring 2008 Past Surgical History Procedure Laterality Date ??? Hc colonoscopy thru stoma, diagnostic 2002 History Substance Use Topics ??? Smoking status: Former Smoker Quit date: 02/06/1984 ??? Smokeless tobacco: Never Used ??? Alcohol Use: 1.0 oz/week Comment: moderate Family History Problem Relation Age of Onset ??? Diabetes Maternal Grandmother ??? Stroke Maternal Grandmother in old age ??? C.A.D. Maternal Uncle [place] ??? Colon CA Maternal Uncle ??? Prostatic CA Paternal Grandfather 84 ??? Prostatic CA Other Cousin ??? Heart Brother stent - 66 ??? Prostatic CA Brother no cancer, but a produre due reduce the prostate ??? Cancer Sister bone caner/lung cancer Prior to Admission medications Medication Sig Start Date End Date Taking? Authorizing Provider omeprazole (PRILOSEC) 40 MG capsule Take 1 capsule (40 mg) by mouth daily Take 30-60 minutes before a meal. 05/16/13 Yes Scottie Nicole MD doxazosin (CARDURA) 8 MG tablet Take 0.5 tablets (4 mg) by mouth At Bedtime 05/09/13 Yes Marlene Carreno MD fish oil-omega-3 fatty acids (FISH OIL) 1000 MG capsule Take 2 g by mouth daily Yes Reported, Patient Multiple Vitamins-Minerals (CENTRUM SILVER ULTRA MENS PO) Take 1 tablet by mouth daily Yes Dummy, Bfp User hydrochlorothiazide (HYDRODIURIL) 25 MG tablet Take 1 tablet by mouth daily. 08/07/12 Yes Scottie Nicole MD doxazosin (CARDURA) 4 MG tablet Take 1 tablet by mouth At Bedtime. 08/07/12 Yes Scottie Nicole MD simvastatin (ZOCOR) 40 MG tablet Take 0.5 tablets by mouth At Bedtime. 08/07/12 Yes Scottie Nicole MD ibuprofen (ADVIL,MOTRIN) 600 MG tablet Take 1 tablet (600 mg) by mouth every 6 hours as needed for pain 01/09/13 Mckay Lizama MD Allergies Allergen Reactions ??? Mometasone Furoate Monohydrate gets bloody noses from Nasonex ??? Quinazolines get bloody noses from Flomax REVIEW OF SYSTEMS: 5 point ROS negative except as noted above in HPI, including Gen., Resp., CV, GI & system review. PHYSICAL EXAM: Ht 1.753 m (5' 9) Wt 88.451 kg (195 lb) BMI 28.78 kg/m2 Estimated body mass index is 28.78 kg/(m^2) as calculated from the following: Height as of this encounter: 1.753 m (5' 9). Weight as of this encounter: 88.451 kg (195 lb). GENERAL APPEARANCE: alert, and oriented MENTAL STATUS: alert AIRWAY EXAM: Mallampatti Class I (visualization of the soft palate, fauces, uvula, anterior and posterior pillars) RESP: lungs clear to auscultation - no rales, rhonchi or wheezes CV: regular rates and rhythm DIAGNOSTICS: Not indicated IMPRESSION ASA Class 1 - Healthy patient, no medical problems PLAN: Plan for Colonoscopy with possible biopsy, possible polypectomy. We discussed the risks, benefits and alternatives and the patient wished to proceed. The above has been forwarded to the consulting provider. Signed Electronically by: Matthew Richardson MD June 05, 2013 documented in this encounter Plan of Treatment Not on filedocumented as of this encounter Procedures Procedure Name Priority Date/Time Associated Diagnosis Comme nts COLONOSCOPY Routine 06/05/2013 9:28 AM Results f or this CDT procedure are i n the results section . COLONOSCOPY 06/05/2013 9:22 AM screen CDT Special Needs DR. SCOTTIE NICOLE documented in this encounter Results COLONOSCOPY (06/05/2013 9:28 AM CDT) [facility] Method Time Signature COLONOSCOPY [facility] RAD IOLOGY RESULTS Patient Name: Terry sher ?Procedure Date: 06/05/2013 9:28:52 AM ? Date of : 1945 ?Admit Type: Outpatient ? Age: 68 ? Gender: Male ? Attending MD: Matthew Quarles MD ? Procedure: ?Colonoscopy Indications: ?High ri sk colon cancer surveillance: Personal ?history of colonic po lyps Providers: ?Matthew Richardson MD Referring : ? Scottie Nicole MD Medicines: ?Midazolam 2 mg IV, Fentanyl 100 micrograms IV Complications: ?No immediate complications Procedure: ?Pre-Anesthesia Assessment: ?- Prior to the procedure, a History and Physical ?was performed, and patient medications and ?allergies were reviewed. The patient is competent. ?The risks and benefits of the procedure and the ?sedation options and risks were discussed with the ?patient. All questions were answered and informed ?consent was obtained. Patient identification and ?proposed procedure were verified by in the ?procedure room. Mental Status Examination: alert ?and oriented. Airway Examination: normal ?oropharyngeal airway and [...] and ?oxygen saturations were monitored continuously. The ?PCF-[id number] [id number] was introduced through the anus ?and advanced to the cecum, identified by ?appendiceal orifice & ileocecal valve. The ?colonoscopy was performed without difficulty. The ?patient tolerated the procedure well. The quality ?of the bowel preparat ion was good. ? Findings: ? The perianal and digi cristo rectal examinations were normal. Multiple small ? and large-mouthed diverticula wer e found in the sigmoid colon. The exam ? was otherwise without abnormality.The retroflexed v iew of the distal ? rectum was normal and showed no anal or rectal abnorm alities. ? Impression: ? - Diverticulosis sigmoid co gaye. ?- The examination was otherwise normal. Recommendation: ? - Repeat colonoscopy in 5 years for surveillance. ? Electronically signed by Matthew Richardson MD Matthew Richardson MD Signed Date: 06/05/2013 9:42:18 AM Number of Addenda: 0 I was physically present for the entire viewing portion of t he exam. Note Initiated On: 06/05/2013 9:28:52 AM Scope Withdrawal Time: 0 hours 5 minutes 49 seconds Scope Withdrawal Time: 0 hours 5 minutes 49 seconds Total Procedure Duration: 0 hours 7 minutes 55 seconds Total Procedure Duration: 0 hours 7 minutes 55 seconds Specimen (Source) Anatomical Collection Method Collection Time Re ceived Time Location / / Volume Laterality 06/05/2013 9:28 AM CDT Scottie Nicole MD PROCEDURES Performing Organization Address City/State/ZIP Code Phon e Number RADIOLOGY RESULTS documented in this encounter Visit Diagnoses Not on filedocumented in this encounter Active and Recently Administered Medications Times are shown in CDT. PRN Medication Order 06/03/2013 06/04/2013 06/05/2013 fentaNYL (SUBLIMAZE) injection (CANCELED) 0927 (Given - Provider: Matthew Richardson MD) PRN, Starting [facility] 06/05/13 at 0927, moderate to severe pain, Intra -procedure midazolam (VERSED) injection (CANCELED) 0927 (Given - Provider: Matthew Richardson MD) PRN, Starting [facility] 06/05/13 at 0927, anxiety, Intra-procedure documented in this encounter Care Teams Biomass Production Manager Relationship Specialty Start Date End Date Scottie Nicole MD PCP - General 02/18/99 10/06/13 [place] [id number] [place] [address] documented as of this encounter
--- OUTSIDE RECORDS SUMMARY | 2021-11-04 10:37 | XMS_ITS | Encounter Summary ---
:1945 Author Organization [place] Address [address] [facility] 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 Triage Note: Guideline Title: Abrasions, Lacerations, Puncture Wounds Recommended Disposition: See Provider within 4 hours Original Inclination: Wanted to speak with a nurse Override Disposition: Intended Action: Go to Urgent Care Center Physician Contacted: No Laceration longer than 1 in (2.5 cm) or deeper than 1/2 in (1.25 cm) ? YES Tetanus immunization not up to date ? NO Human bite OR animal bite ? NO Wound not healed after 14 days ? NO Prolonged bleeding from minor cuts, nicks, etc. ? NO New or worsening signs and symptoms that may indicate shock ? NO Injury to eye other than laceration or abrasion on skin around eye ? NO Bleeding not controlled with 10 minutes of direct pressure or controlled with pressure but starts again when pressure released ? NO Injury of finger/fingernail, including amputation, other than abrasion, laceration or puncture wound ? NO Injury of toe/toenail, including amputation, other than abrasion, laceration or puncture wound ? NO Wound is on or near joint AND gapes when joint is bent ? NO Grossly dirty wound or unable to clean ? NO New onset numbness/tingling, weakness/paralysis, or inability to purposely move at or below the site of injury ? NO Accidental needle stick (not known to be unused) ? NO Blood spurting from wound despite firm pressure or large amount of blood loss (such as soaked hand towel) ? NO Tika of fish hook is embedded in skin (follows unsuccessful removal attempt) ? NO New onset of swollen glands nearest to recent laceration/puncture wound ? NO Penetrating full thickness injury (an injury that passes through the skin layers of epidermis and dermis and penetrates into the underlying subcutaneous tissue) ? NO Head injury with associated laceration(s) ? NO New signs and symptoms of local infection ? NO Any signs and symptoms of worsening soft tissue infection ? NO Obvious new deformity (bone is visibly out of place or misshapen) ? NO Unbearable pain since injury ? NO Severe traumatic injury likely to cause damage to underlying structures/organs of torso, head, neck or face or a complete/partial amputation of an extremity (other than single finger or toe) ? NO Known or suspected foreign body imbedded or impaled deep in wound ? NO Laceration 1/2 inch (1.25cm) or longer on scalp, face, lip vermillon border or goes all the way through the lip or cheek ? NO Wound is jagged, irregular, has missing skin, or there is visible muscle or fat. ? NO Any full thickness puncture wound (passes through the skin layers of epidermis and dermis and penetrates into the underlying subcutaneous tissue) OR a puncture wound where the bottom of wound is not visible (even when wound edges are ) ? NO Four or more lacerations ? NO Physician Instructions: Care Advice: Another adult should drive. Support injured part in position of comfort to reduce pain and prevent further damage avoid unnecessary movement. Thoroughly wash hands with soap and water before and after touching the site. Go to ED immediately if unable to control bleeding with 10 minutes of direct pressure or if foreign body deep in the wound. While in transit, if bleeding cannot be controlled after 10 minutes of firm pressure, elevate the injured part, if possible, and apply firm pressure with flat fingers to the artery between the heart and the affected area. IMMEDIATE ACTION CAUTIONS HEALTH PROMOTION / MAINTENANCE Write down provider's name. List or place the following in a bag for transport with the patient: current prescription and/or nonprescription medications alternative treatments, therapies and medications and street drugs. Tetanus immunization must be given as soon as possible after injury, usually within 72 hours, IF: - immunization status is unknown, never immunized, or fewer than 3 doses given, - it has been 10 years or more since last immunization - OR if it has been 5 years or more since last booster, AND wound is a deep, is a puncture wound, or is a tetanus-prone wound. Keep an up-to-date record of your immunizations so unnecessary repeat doses are not given. Injuries from high pressurized tools need to be medically evaluated. Initially symptoms may be minimal but over time may cause severe pain, swelling and discoloration of tissue. Control Bleeding: - Cover wound with a clean cloth and apply firm pressure to control bleeding. - If bleeding continues through dressing, add more material. - DO NOT remove old dressing. - Continue to apply direct pressure. DO NOT remove impaling objects until injury is medically evaluated. - If there is an object in a bleeding wound, apply pressure around the area not directly over it. Cleanse wound by flushing with cool water or normal saline, if available, and let it bleed to remove as much foreign material as possible. Do not use hydrogen peroxide, iodine or rubbing alcohol when cleaning the wound as these products may cause more tissue damage. documented in this encounter Plan of Treatment Not on filedocumented as of this encounter Visit Diagnoses Not on filedocumented in this encounter Care Teams Demolition Expert Relationship Specialty Start Date End Date Raghavendra Deras MD PCP - General Family Practice 10/07/13 documented as of this encounter
--- OUTSIDE RECORDS SUMMARY | 2021-11-04 10:37 | XMS_ITS | Encounter Summary ---
:1945 Author Organization [place] Address [address] [facility] [place] [address] Care Team Providers Name Role Phone Raghavendra Deras MD Primary Care Provider Unavailable Reason for Visit Reason Comments Refill Request on BP medication, PT is not FASTING Encounter Details Date Type Department Care Team Description 10/07/2013 Office Visit [facility] Raghavendra Deras Hypertens ion goal BP (blood pressure) < 140/90 (Primary Dx); Clinic Candy Alan MD Hyperlipidemia LDL goal <130 ; [id number] [facility] At risk for falling; [place], [place] Esophageal ref [facility] [id number] Social History Tobacco Use Types Packs/Day Years [...] at Date Recorded 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 Last Filed Vital Signs Vital Sign Reading Time Taken Comments Blood Pressure 128/72 10/07/2013 3:21 PM CDT Pulse 68 10/07/2013 3:21 PM CDT Temperature 36.7 ??C (98.1 ??F) 10/07/2013 3:21 PM CDT Respiratory Rate - - Oxygen Saturation 96% 10/07/2013 3:21 PM CDT Inhaled Oxygen Concentration - - Weight 88 kg (194 lb) 10/07/2013 3:21 PM CDT Height 175.3 cm (5' 9) 10/07/2013 3:21 PM CDT Body Mass Index 28.65 10/07/2013 3:21 PM CDT documented in this encounter Progress Notes Raghavendra Deras MD - 10/12/2013 9:02 PM CDT SUBJECTIVE: Terry Montero is a 68 year old male who presents to clinic today for the following health issues: Hyperlipidemia Follow-Up ?? Rate your low fat/cholesterol diet?: good ?? Taking statin? Yes, no muscle aches from statin ?? Other lipid medications/supplements?: none Hypertension Follow-up ?? Outpatient blood pressures are not being checked. ?? Low Salt Diet: no added salt History Substance Use Topics ??? Smoking status: Former Smoker Quit date: 02/06/1984 ??? Smokeless tobacco: Never Used ??? Alcohol Use: 1.0 oz/week Comment: moderate Problem list and histories reviewed & adjusted, as indicated. Additional history: as documented. History of GERD with peptic ulcer in the past as well. Doing wellon PPI. History of obstructive sleep apnea. Patient Active Problem List Diagnosis ??? Actinic keratosis ??? ALLERGIC RHINITIS NOS ??? HYPERTROPHY of PROSTATE ??? ESOPHAGEAL REFLUX ??? SCC (squamous cell carcinoma), face ??? MORENITA (Obstructive Sleep Apnea) ? ? HYPERLIPIDEMIA LDL GOAL <130 ??? History of peptic ulcer disease ? ? Hypertension goal BP (blood pressure) < 140/90 ??? Advanced directives, counseling/discussion ??? Gastroenteritis ??? Adenomatous polyp of colon Past Surgical History Procedure Laterality Date ??? [...] in old age ??? C.A.D. Maternal Uncle [place] ??? Colon CA Maternal Uncle ??? Prostatic CA Paternal Grandfather 84 ??? Prostatic CA Other Cousin ??? Heart Brother stent - 66 ??? Prostatic CA Brother no cancer, but a produre due reduce the prostate ??? Cancer Sister bone caner/lung cancer ROS: RESP:NEGATIVE for significant cough or SOB CV: NEGATIVE for chest pain, palpitations or peripheral edema OBJECTIVE: BP 128/72 Pulse 68 Temp(Src) 98.1 ??F (36.7 ??C) (Oral) Ht 5' 9 (1.753 m) Wt 194 lb (87.998kg) BMI 28.64 kg/m2 SpO2 96% Body mass index is 28.64 kg/(m^2). GENERAL APPEARANCE: alert and no distress RESP: lungs clear to auscultation - no rales, rhonchi or wheezes CV: regular rates and rhythm and no murmur, click or rub MS: no edema ASSESSMENT/PLAN: (401.9) Hypertension goal BP (blood pressure) < 140/90 (primary encounter diagnosis) Comment: Plan: hydrochlorothiazide (HYDRODIURIL) 25 MG tablet, Basic metabolic panel Continue current medications. (272.4) Hyperlipidemia LDL goal <130 Comment: Plan: simvastatin (ZOCOR) 40 MG tablet, Lipid panel reflex to direct LDL Controlled, continue statin. (V15.88) At risk for falling Comment: Plan: (530.81) Esophageal reflux Comment: Plan: omeprazole (PRILOSEC) 40 MG capsule Continue PPI. Raghavendra Deras MD [facility] documented in this encounter Nursing Notes Raudel Garcia, RN PATIENT SERVICES - 10/07/2013 3:24 PM CDT Chief Complaint Patient presents with ??? Refill Request on BP medication, PT is not FASTING Initial BP 128/72 Pulse 68 Temp(Src) 98.1 ??F (36.7 ??C) (Oral) Ht 5' 9 (1.753 m) Wt 194 lb(87.998 kg) BMI 28.64 kg/m2 SpO2 96% Estimated body mass index is 28.64 kg/(m^2) as calculated from the following: Height as of this encounter: 5' 9 (1.753 m). Weight as of this encounter: 194 lb (87.998 kg). BP completed using cuff size: temo Garcia CMA documented in this encounter Plan of Treatment Not on filedocumented as of this encounter Visit Diagnoses Diagnosis Hypertension goal BP (blood pressure) < 140/90 - Primary Unspecified essential hypertension Hyperlipidemia LDL goal <130 Other and unspecified hyperlipidemia At risk for falling Personal history of fall Esophageal reflux documented in this encounter Care Teams Resp Therapist Relationship Specialty Start Date End Date Raghavendra Deras MD PCP - General Family Practice 10/07/13 documented as of this encounter
--- OUTSIDE RECORDS SUMMARY | 2021-11-04 10:37 | XMS_ITS | Encounter Summary ---
:1945 Author Organization [place] Address [address] [place] [address] Care Team Providers Name Role Phone Nasir Velazquez MD Primary Care Provider [phone] Reason for Visit Reason Comments Physical labs done last week. Encounter Details Date Type Department Care Team Description 08/07/2012 Office Visit [facility] Nasir Velazquez Hypert ension goal BP (blood pressure) < 140/90 (Primary Dx); Clinic [place] MD Geraldo Esophageal reflux; [address] [facility] NIC[place]Y HYPERTROPHY of PROSTATE ; [place], [place] CLINIC Routine general medical examination at a health care facility; [id number] Anemia; [phone] Special screening for malignant neoplasm of prostate; [place], [place] Hyperlipid emia LDL goal <130; [address] Trochanteric bursitis Social History Tobacco Use Types Packs/Day Years [...] at Date Recorded 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 Last Filed Vital Signs Vital Sign Reading Time Taken Comments Blood Pressure 137/79 08/07/2012 10:39 AM CDT Pulse 68 08/07/2012 10:39 AM CDT Temperature 36.6 ??C (97.9 ??F) 08/07/2012 10:39 AM CDT Respiratory Rate - - Oxygen Saturation 97% 08/07/2012 10:39 AM CDT Inhaled Oxygen Concentration - - Weight 88.6 kg (195 lb 5 oz) 08/07/2012 10:39 AM CDT Height 174 cm (5' 8.5) 08/07/2012 10:39 AM CDT Body Mass Index 29.27 08/07/2012 10:39 AM CDT documented in this encounter Patient Instructions Patient InstructionsPhoenix Dubois - 08/07/2012 10:49 AM CDT Preventive Health Recommendations: Male Ages 65 and over Yearly exam: ?? See your health care provider every year in order to o Review health changes. o Discuss preventive care. o Review your medicines if your doctor has prescribed any. Talk with your health care provider about whether you should have a test to screen for prostate cancer (PSA). Every 3 years, have a diabetes test (fasting glucose). If you are at risk for diabetes, you should have this test more often. Every 5 years, have a cholesterol test. Have this test more often if you are at risk for high cholesterol or heart disease. Every 10 years, have a colonoscopy. Or, have a yearly FIT test (stool test). These exams will checkfor colon cancer. Shots: Get a flu shot each year. Get a tetanus shot every 10 years. Get a one-time shot to prevent pneumonia (Pneumovax). Talk to your doctor about a shingles vaccine. Nutrition: Eat at least 5 servings of fruits and vegetables each day. Eat whole-grain bread, whole-wheat pasta and brown rice instead of white grains and rice. For bone health: Eat calcium-rich foods or take calcium pills (500 to 600 mg) twice a day with food. Also take vitamin D (1000 IU) each day. Lifestyle Exercise for at least 150 minutes a week (30 minutes a day, 5 days a week). This will help you control your weight and prevent disease. Limit alcohol to one drink per day. No smoking. Wear sunscreen to prevent skin cancer. See your dentist every six months for an exam and cleaning. See your eye doctor every 1 to 2 years. documented in this encounter Progress Notes Nasir Velazquez MD - 08/09/2012 11:20 AM CDT Quick Note: Your recent lab tests were reassuring, but did not show any clear cause for your anemia. You do nothave iron deficiency anemia. As your hemoglobin has been stable for the past several years, I would not recommend further workup at this time, as long as the stool test comes back negative. Your PSA level, a screening test for prostate cancer, was normal. There is considerable controversyregarding the decision to screen asymptomatic men for prostate cancer. I usually recommend that the decision to screen be made on a [id number] basis once yearly. Please contact the clinic if you have further questions or concerns. Sincerely, Nasir Velazquez MD Nasir Velazquez MD - 08/07/2012 10:49 AM CDT SUBJECTIVE: CC: Terry Montero is an 67 year old male who presents for preventative health visit. Healthy Habits: ?? Do you get at least three servings of calcium containing foods daily (dairy, green leafy vegetables, etc.)? yes ?? Amount of exercise or daily activities, outside of work: 2-3 day(s) per week ?? Problems taking medications regularly No ?? Medication side effects: No ?? Have you had an eye exam in the past two years? yes ?? Do you see a dentist twice per year? yes ?? Do you have sleep apnea, excessive snoring or daytime drowsiness? Possible apnea Other concerns to address: Iron levels. Hyperlipidemia Follow-Up ?? Following low fat/cholesterol diet?: good ?? Taking statin? No ?? Taking Niaspan/niacin? No ?? Other medications/supplements?: Fish oil/[place] 3, dose 1000mg without side effects Hypertension Follow-up ?? Outpatient blood pressures are not being checked. ?? Low Salt Diet: no added salt ?? History Substance Use Topics ??? Smoking status: Former Smoker Quit date: 02/06/1984 ??? Smokeless tobacco: Never Used ??? Alcohol Use: 1.0 oz/week moderate Problem list and histories reviewed & adjusted, as indicated. Additional history: as documented Today's PHQ-2 Score: 0 Abuse: Current or Past(Physical, Sexual or Emotional)- No Do you feel safe in your environment - Yes History Substance Use Topics ??? Smoking status: Former Smoker Quit date: 02/06/1984 ??? Smokeless tobacco: Never Used ??? Alcohol Use: 1.0 oz/week moderate The patient does not drink >3 drinks per day nor >7 drinks per week. Last PSA: [employer] PSA Date Value Range Status 12/31/2002 0.4 <0R=4.0 NG/ML Final PSA VALUES FROM DIFFERENT ASSAY METHODS CANNOT BE USED INTERCHANGEABLY. THIS ASSAY WAS PERFORMED USING THE [employer] CHEMILUMINESCENT METHOD. PSA Date Value Range Status 06/30/2010 0.59 0 - 4 ug/L Final Recent Labs Lab Test 08/02/12 1025 06/06/11 1115 CHOL 164 187 HDL 40 43 LDL 82 98 TRIG 209* 232* CHOLHDLRATIO 4.1 4.3 Reviewed orders with patient. Reviewed health maintenance and updated orders accordingly - Yes All Histories reviewed and updated in [facility]. ROS: C: NEGATIVE for fever, chills, change [...] list, Allergies, and Medical/Social/Surgical histories reviewed in [facility] andupdated as appropriate. OBJECTIVE: BP 137/79 Pulse 68 Temp 97.9 ??F (36.6 ??C) (Oral) Ht 5' 8.5 (1.74 m) Wt 195 lb 5 oz (88.593 kg) BMI 29.27 kg/m2 SpO2 97% Estimated Body mass index is 29.27 kg/(m^2) as calculated from thefollowing: Height as of this encounter: 5' 8.5(1.74 m). Weight as of this encounter: 195 lb 5 oz(88.593 kg). GENERAL APPEARANCE: healthy, alert and no distress [...] normal sphincter tone, no rectal masses, prostate of normal size, smooth, nontender without nodules or masses MS: no musculoskeletal defects are noted and gait is age appropriate without ataxia SKIN: no suspicious lesions or rashes NEURO: Normal strength and tone, sensory exam grossly normal, mentation intact and speech normal PSYCH: mentation appears normal and affect normal/bright ATP III Guidelines FRAX Risk Assessment ICSI Preventive Guidelines ASSESSMENT/PLAN: 401.9 Hypertension goal BP (blood pressure) < 140/90 (primary encounter diagnosis) Comment: Plan: hydrochlorothiazide (HYDRODIURIL) 25 MG tablet 530.81 Esophageal reflux Comment: Plan: omeprazole (PRILOSEC) 40 MG capsule 600.00 HYPERTROPHY of PROSTATE Comment: Plan: doxazosin (CARDURA) 4 MG tablet, Prostate spec antigen screen V70.0 Routine general medical examination at a health care facility Comment: Plan: Discussed diet and aerobic exercise. See other preventative health recommendations in orders. 285.9 Anemia Comment: Plan: RETICULOCYTE COUNT, Vitamin B12, Folate, Ferritin, Iron and iron binding capacity, Fecal colorectal cancer screen FIT, CBC WITH PLATELETS DIFFERENTIAL, HCL TECH SLIDE REVIEW NO CHARGE I will contact the patient regarding his results and determine the follow up plan at that time. V76.44 Special screening for malignant neoplasm of prostate Comment: Plan: Prostate spec antigen screen 272.4 Hyperlipidemia LDL goal <130 Comment: Plan: simvastatin (ZOCOR) 40 MG tablet 726.5 Trochanteric bursitis Comment: Plan: Handout given with care instructions.. Call for referral to Physical Therapy if not improving. Counseling: Dietary Guidelines for Americans, 2010 USDA's MyPlate regular exercise healthy diet/nutrition vision screening hearing screening prostate cancer screening reports that he quit smoking about 28 years ago. He has never used smokeless tobacco. Estimated Body mass index is 29.27 kg/(m^2) as calculated from the following: Height as of this encounter: 5' 8.5(1.74 m). Weight as of this encounter: 195 lb 5 oz(88.593 kg). Weight management plan: Current exercise routine: walking. Diet regimen was discussed and plan is self-directed dieting: reduce calories, reduce portions, reduce carbs, increase fruits/vegetables and avoid sweets. Nasir Velazquez MD [facility] documented in this encounter Nursing Notes 08/07/2012 10:30 AM CDT >> PHOENIX DUBOIS Wed Aug 07, 2012 10:49 AM Patient presents with: Physical - labs done last week. Initial BP 137/79 Pulse 68 Temp 97.9 ??F (36.6 ??C) (Oral) Ht 5' 8.5 (1.74 m) Wt 195 lb 5 oz (88.593 kg) BMI 29.27 kg/m2 SpO2 97% Estimated Body mass index is 29.27 kg/(m^2) as calculated from the following: Height as of this encounter: 5' 8.5(1.74 m). Weight as of this encounter: 195 lb 5 oz(88.593 kg). BP completed using cuff size: large Health maintenance- up to date Phoenix Dubois HUMAN RESOURCES SUPERVISOR q documented in this encounter Plan of Treatment Scheduled Orders Name Type Priority Associated Diagnoses Order S chedule HCL TECH SLIDE REVIEW NO Lab Routine Anemia Ord ered: 08/07/2012 CHARGE documented as of this encounter Procedures Procedure Name Priority Date/Time Associated Diagnosis Comme nts CBC WITH PLATELETS & Routine 08/07/2012 11:45 Anemia Res ults for this DIFFERENTIAL AM CDT procedure are i n the results section. RETICULOCYTE COUNT Routine 08/07/2012 11:45 Anemia Resul ts for this AM CDT procedure are i n the results section. PROSTATE SPECIFIC Routine 08/07/2012 11:45 HYPERTROPHY of Resu lts for this ANTIGEN SCREEN AM CDT PROSTATE procedure are in Special screening the result s for malignant section. neoplasm of prostate IRON AND IRON BINDING Routine 08/07/2012 11:45 Anemia Re sults for this CAPACITY AM CDT procedure are i n the results section. FOLATE Routine 08/07/2012 11:45 Anemia Results for this AM CDT procedure are i n the results section. FERRITIN Routine 08/07/2012 11:45 Anemia Results for this AM CDT procedure are i n the results section. VITAMIN B12 Routine 08/07/2012 11:45 Anemia Results for this AM CDT procedure are i n the results section. documented in this encounter Results (ABNORMAL) CBC WITH PLATELETS DIFFERENTIAL (08/07/2012 11:45 AM CDT) [facility] gist Method Time Signature WBC Mycobiotic 4.0 - [place] Slant 11.0 [place] 10e9/L CLINIC LAB RBC Count 4.38 (L) 4.4 - 5.9 [place] 10e12/L [facility] Hemoglobin 13.1 (L) 13.3 - [place] 17.7 g/dL [facility] Comment: SLIDE REVIEW PERFORMED. RBC'S SHOWED SLI GHT ANISOCYTOSIS.PLATELETS ANF WBC'S LOOKED NORMAL. ??K.K. Hematocrit 37.4 (L) 40.0 - 53.0 % [facility] MCV 85 78 - 100 fl [facility] MCH 29.9 26.5 - 33.0 pg [facility] MCHC 35.0 31.5 - 36.5 g/dL [facility] RDW 13.1 10.0 - 15.0 % [facility] Platelet Count 156 150 - 450 10e9/L [facility] Diff Method Automated Method [facility] % Neutrophils 53.3 % [facility] % Lymphocytes 35.4 % [facility] % Monocytes 9.6 % [facility] % Eosinophils 1.3 % [facility] % Basophils 0.4 % [facility] Absolute Neutrophil 2.4 1.6 - 8.3 10e9/L [place]AN[place]IEW [facility] Absolute Lymphocytes 1.6 0.8 - 5.3 10e9/L [facility] Absolute Monocytes 0.4 0.0 - 1.3 10e9/L [facility] Absolute Eosinophils 0.1 0.0 - 0.7 10e9/L [facility] Absolute Basophils 0.0 0.0 - 0.2 10e9/L [facility] Specimen Anatomical Collection Method Collection Time Receive d Time (Source) Location / / Volume Laterality Blood specimen 08/07/2012 11:45 3 (specimen) AM CDT 12:21 PM CDT Nasir Velazquez MD LAB - BLOOD ORDERABLES Performing Organization Address City/State/[facility] Code Phon e Number [facility] [id number] [facility] [place] [address] [facility] [address] [place], [place] [address] Prostate spec antigen screen (08/07/2012 11:45 AM CDT) P athologist Signature PSA 0.52 0 - 4 ug/L [facility] Specimen Anatomical Collection Method Collection Time Receive d Time (Source) Location / / Volume Laterality Blood specimen 08/07/2012 11:45 3 (specimen) AM CDT 11:47 AM CDT Nasir Velazquez MD LAB - BLOOD ORDERABLES Performing Organization Address City/[facility] Code Phon e Number [facility] [address] [place] [address] [facility] [address] [place] [address] Iron and iron binding capacity (08/07/2012 11:45 AM CDT) athologist Signature Iron 57 35 - 180 [place] ug/dL [facility] Iron Binding 301 240 - 430 [place] Cap ug/dL [facility] Iron Saturation 19 15 - 46 % [place] Index [facility] Specimen Anatomical Collection Method Collection Time Receive d Time (Source) Location / / Volume Laterality Blood specimen 08/07/2012 11:45 3 (specimen) AM CDT 11:47 AM CDT Nasir Velazquez MD LAB - BLOOD ORDERABLES Performing Organization Address [facility] Phon e Number [facility] [address] [place] [id number] [facility] [address] [place] [address] Ferritin (08/07/2012 11:45 AM CDT) athologist Signature Ferritin 116 20 - 300 [facility] ng/mL CLINIC LAB Specimen Anatomical Collection Method Collection Time Receive d Time (Source) Location / / Volume Laterality Blood specimen 08/07/2012 11:45 3 (specimen) AM CDT 11:47 AM CDT Nasir Velazquez MD LAB - BLOOD ORDERABLES Performing Organization Address [facility] Phon e Number [facility] [address] [place] [address] [facility] [address] [place] [address] Folate (08/07/2012 11:45 AM CDT) athologist Signature Folate >24.0 >3.3 ng/mL [facility] Interp: ??>5.4 ng/mL = Normal CAMPUS LABS Specimen Anatomical Collection Method Collection Time Receive d Time (Source) Location / / Volume Laterality Blood specimen 08/07/2012 11:45 3 (specimen) AM CDT 11:47 AM CDT Nasir Velazquez MD LAB - BLOOD ORDERABLES Performing Organization Address City/[facility] Code Phon e Number [facility] [address] [place] [address] [facility] Vitamin B12 (08/07/2012 11:45 AM CDT) P athologist Signature Vitamin B12 647 >210 pg/mL [facility] Comment: Interp: [phone] = Normal Specimen Anatomical Collection Method Collection Time Receive d Time (Source) Location / / Volume Laterality Blood specimen 08/07/2012 11:45 3 (specimen) AM CDT 11:47 AM CDT Nasir Velazquez MD LAB - BLOOD ORDERABLES Performing Organization Address City/State/ZIP Code Phon e Number [facility] [address] [place] [address] [facility] RETICULOCYTE COUNT (08/07/2012 11:45 AM CDT) Patholo gist Method Time Signature % Retic 0.9 0.5 - 2.0 [place] % [facility] Absolute 39.6 25 - 95 [place] Retic 10e9/L [facility] Retic Method Automated [facility] Specimen Anatomical Collection Method Collection Time Receive d Time (Source) Location / / Volume Laterality Blood specimen 08/07/2012 11:45 3 (specimen) AM CDT 11:47 AM CDT Nasir Velazquez MD LAB - BLOOD ORDERABLES Performing Organization Address City/State/ZIP Code Phon e Number [place] [address] [address] [place], [place] [address] [facility] documented in this encounter Visit Diagnoses Diagnosis Hypertension goal BP (blood pressure) < 140/90 - Primary Unspecified essential hypertension Esophageal reflux HYPERTROPHY of PROSTATE Hypertrophy of prostate without urinary obstruction and other lower urinary tract symptoms (LUTS) Routine general medical examination at a health care facility Anemia Anemia, unspecified Special screening for malignant neoplasm of prostate Hyperlipidemia LDL goal <130 Other and unspecified hyperlipidemia Trochanteric bursitis Enthesopathy of hip region documented in this encounter Care Teams Co Supervisor Grounds And Landscape Relationship Specialty Start Date End Date Nasir Velazquez MD PCP - General 02/18/99 10/06/[address] [facility] [address] [place] [address] documented as of this encounter
--- OUTSIDE RECORDS SUMMARY | 2021-11-04 10:37 | XMS_ITS | Encounter Summary ---
:1945 Author Organization [place] Address [facility] 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 LIPID REFLEX TO Routine 08/02/2012 10:25 Hyperlipidemia LDL Re sults for this DIRECT LDL PANEL AM CDT goal <130 procedure a re in the results section. BASIC METABOLIC Routine 08/02/2012 10:25 Hypertension goal BP Results for this PANEL AM CDT (blood pressure) < procedure are in 140/90 the results section. CBC WITH PLATELETS Routine 08/02/2012 10:25 Hypertension goal BP Results for this AM CDT (blood pressure) < procedure are in 140/90 the results section. documented in this encounter Results Microalbumin quantitative random urine (08/02/2012 10:31 AM CDT) Component Value Ref Test Analysis Performed At Patholo gist Range Method Time Signature Creatinine 143 mg/dL [facility] Urine [facility] Albumin Urine <5 mg/L [facility] mg/L Urine Microalbumin lowest re portable value has been changed from 2 mg/L to 5 [facility] mg/L due to a methodology change on May. [place] [facility] Albumin Urine Unable to 0 - 17 [facility] mg/g Cr calculate mg/g Cr [facility] Specimen Anatomical Collection Method Collection Time Receive d Time (Source) Location / / Volume Laterality Urine specimen 08/02/2012 10:31 3 (specimen) AM CDT 10:32 AM CDT Nasir Velazquez MD LAB - URINE ORDERABLES Performing Organization Address City/State/ZIP Code Phon e Number [facility] [address] [place], [place] [id number] [place] [address] LABS (ABNORMAL) Lipid panel reflex to direct LDL (08/02/2012 10:25 AM CDT) P athologist Signature Cholesterol 164 0 - 200 [facility] [place] mg/dL CLINIC LAB Comment: LDL Cholesterol is the primary guide to therapy. The NCEP recommends further evaluation of: patients with cholesterol greater than 200 mg/dL if additional risk facto rs are present, cholesterol greater than 240 mg/dL, triglycerides greater than 1 50 mg/dL, or HDL less than 40 mg/dL. Triglycerides 209 (H) 0 - 150 mg/dL [facility] [place] [facility] HDL Cholesterol 40 40 - 110 mg/dL [facility] [place] [facility] LDL Cholesterol Calculated 82 0 - 129 mg/dL [facility] Comment: LDL Cholesterol is the primary guide to therapy: LDL-cholesterol goal in high risk patients is <100 mg/dL and in very high risk patients is <70 mg/dL. VLDL-Cholesterol 42 (H) 0 - 30 mg/dL [facility] Cholesterol/HDL Ratio 4.1 0.0 - 5.0 [facility] Specimen Anatomical Collection Method Collection Time Receive d Time (Source) Location / / Volume Laterality Blood specimen 08/02/2012 10: 3 (specimen) AM CDT 10:26 AM CDT Nasir Velazquez MD LAB - BLOOD ORDERABLES Performing Organization Address City/[facility] Code Phon e Number [facility] [place] [address] [place] [address] [phone] [facility] [address] [facility] [place] [address] Basic metabolic panel (08/02/2012 10:25 AM CDT) P athologist Signature Sodium 142 133 - 144 [place] mmol/L [facility]INIC [facility] Potassium 3.7 3.4 - 5.3 [facility] [place] mmol/L [facility] Chloride 103 94 - 109 [facility] [place] mmol/L [facility] Carbon Dioxide 26 20 - 32 [facility] [place] mmol/L [facility] Anion Gap 13 6 - 17 [facility] [place] mmol/L [facility] Glucose 94 60 - 99 [facility] [place] mg/dL [facility]INIC LAB Urea Nitrogen 19 7 - 30 [facility] [place] mg/dL [facility] LAB Creatinine 1.02 0.66 - [facility] [place] 1.25 mg/dL CLINIC LAB GFR Estimate 73 >60 [facility] [place] mL/min/1.7 CLINIC LAB m2 GFR Estimate If 88 >60 [facility] Black mL/min/1.7 [facility] m2 Calcium 9.2 8.5 - 10.4 [facility] [place] mg/dL CLINIC LAB Specimen Anatomical Collection Method Collection Time Receive d Time (Source) Location / / Volume Laterality Blood specimen 08/02/2012 10: 3 (specimen) AM CDT 10:26 AM CDT Nasir Velazquez MD LAB - BLOOD ORDERABLES Performing Organization Address City/[facility]/ZIP [facility] Phon e Number [facility] [address] [facility] [place] [address] [phone] [facility] [address] [facility] [place] [address] [phone] (ABNORMAL) CBC with platelets (08/02/2012 10:25 AM CDT) Analysis Performed At Patho logist Time Signature WBC 5.2 4.0 - 11.0 D LO 10e9/L [facility] RBC Count 4.45 4.4 - 5.9 D LO 10e12/L [facility] Hemoglobin 13.2 (L) 13.3 - D LO 17.7 g/dL [facility] Hematocrit 38.1 (L) 40.0 - D LO 53.0 % [facility] MCV 86 78 - 100 [facility] LAB MCH 29.7 26.5 - D LO 33.0 pg [facility] MCHC 34.6 31.5 - D LO 36.5 g/dL [facility] RDW 13.2 10.0 - D LO 15.0 % [facility] Platelet Count 159 150 - 450 D LO 10e9/L [facility] Specimen Anatomical Collection Method Collection Time Receive d Time (Source) Location / / Volume Laterality Blood specimen 08/02/2012 10:25 3 (specimen) AM CDT 10:26 AM CDT Nasir Velazquez MD LAB - BLOOD ORDERABLES Performing Organization Address City/State/ZIP Code Phon e Number [facility] [address] [facility] [address] [facility] [address] [place], [place] [address] documented in this encounter Visit Diagnoses Diagnosis Hypertension goal BP (blood pressure) < 140/90 Unspecified essential hypertension Hyperlipidemia LDL goal <130 Other and unspecified hyperlipidemia documented in this encounter Care Teams Allergy Physician Relationship Specialty Start Date End Date Nasir Velazquez MD PCP - General 02/18/99 10/06/13 [facility] [address] [place] [address] documented as of this encounter
--- OUTSIDE RECORDS SUMMARY | 2021-11-04 10:37 | XMS_ITS | Encounter Summary ---
:1945 Author Organization [place] Address [address] [facility] [place] [address] Care Team Providers Name Role Phone Scottie Nicole MD Primary Care Provider [phone] Reason for Visit Auth/Cert - Closed Specialty Diagnoses / Procedures Referred By Contact Refer red To Contact Gastroenterology Diagnoses HX OF POLYPS Rh Endoscopy Procedures COLONOSCOPY [address] [place] [address] Phone: Fax: Referral ID Status Reason Start Date Expiration Date Visits Requ ested Visits Authorized [id number] Closed 1 1 Encounter Details Date Type Department Care Team Description 06/05/2013 Surgery [facility] Matthew Dubose MD COLONOSCOPY Alfred [facility] [address] [facility] [address] [place] [address] [place], [place] [address] [phone] (Wo rk) Surgery Details Date/Time Status Location OR Service Patient Class Case Case Trauma Class Type Case? 06/05/13 9:00 Posted GI GI A Gastroenterology Outpatient AM Panel 1 Procedure LRB Anes Op Region Wound Class Commen ts COLONOSCOPY N/A Conscious Sedation Rectum II-Clean Contami nated COLONOSCOPY Surgeon Surgeon Role Service Panel Matthew Richardson MD Primary Gastroenterology [address] 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 To help relieve pain, antispasmodic [...] the option of having surgery with you. [place] [facility] Help keep your colon healthy with a diet that includes plenty of high-fiber fruits, vegetables, and whole grains. Drink plenty of liquids like water and juice. Your doctor may also recommend avoiding seeds and nuts. ?? [phone] Formerly [facility], [address] [place] [address], [place] [address]. All rights reserved. This information is not [...] in old age ??? C.A.D. Maternal Uncle [place] ??? Colon [place] Maternal Uncle ??? Prostatic [...] encounter Results COLONOSCOPY (06/05/2013 9:28 AM CDT) [facility] Method Time Signature COLONOSCOPY [facility] RAD IOLOGY RESULTS Patient Name: Terry sher [...] ?oxygen saturations were monitored continuously. The ?[id number] was introduced through the anus ?and advanced [...] MAR Action Action Date Dose Rate Site fentaNYL (SUBLIMAZE) injection Given 06/05/2013 9:27 AM CDT 100 mcg PRN, moderate to severe pain, Starting on Jenn 06/05/13 at 0927, Intra-procedure midazolam (VERSED) injection Given 06/05/2013 9:27 AM CDT 2 mg PRN, anxiety, Starting on Jenn 06/05/13 at 0927, Intra-procedure documented in this encounter Active and Recently Administered Medications Times are shown in CDT. PRN Medication Order 06/03/2013 06/04/2013 06/05/2013 fentaNYL (SUBLIMAZE) injection (CANCELED) 09 (Given - Provider: Matthew Richardson MD) PRN, Starting Jenn 06/05/13 at 0927, moderate to severe pain, Intra -procedure midazolam (VERSED) injection (CANCELED) 926 (Given - Provider: Matthew Richardson MD) PRN, Starting Jenn 06/05/13 at 0927, anxiety, Intra-procedure documented in this encounter Care Teams Strip Winder Relationship Specialty Start Date End Date Scottie Nicole MD PCP - General 02/18/99 10/06/[address] [address] documented as of this encounter
--- OUTSIDE RECORDS SUMMARY | 2021-11-04 10:37 | XMS_ITS | Encounter Summary ---
:1945 Author Organization [place] Address [facility] 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 ajc Telephone Encounter - Ricky Barnhart RN - 10/07/2013 11:28 AM CDT Carlos requests hctz refills without visit. RN cannot refill PSO, last BMP >6 mos. When is next HTN visit/labs due? BP Readings from Last 2 Encounters: 08/21/13 138/84 06/05/13 107/64 CR 1.23 01/10/2013 POTASSIUM 3.4 01/10/2013 Ricky Barnhart RN Telephone Encounter - Janny Rodriguez RN - 10/07/2013 11:03 AM CDT LM for call back. Pt needs f/u in clinic. He has not returned calls or read my chart. Will send f/u letter today. BP Readings from Last 1 Encounters: 08/21/13 138/84 Potassium Date Value Range Status 01/10/2013 3.4 3.4 - 5.3 mmol/L Final ] Creatinine Date Value Range Status 01/10/2013 1.23 0.66 - 1.25 mg/dL Final OK for 30 day refill? Janny Rodriguez RN Telephone Encounter - Janny Rodriguez RN - 10/02/2013 4:13 PM CDT Request from [facility] to refill HCTZ pt needs appt to est care and labs. LM for call back. KALA 08/21/13 Last refill 07/13/13 # 90 Janny Rodriguez RN documented in this encounter Plan of Treatment Not on filedocumented as of this encounter Visit Diagnoses Diagnosis Hypertension goal BP (blood pressure) < 140/90 Unspecified essential hypertension documented in this encounter Care Teams Housekeeping Attendant Relationship Specialty Start Date End Date Nasir Velazquez MD PCP - General 02/18/99 10/06/13 [facility] [address] [place] [address] Raghavendra Deras MD PCP - General Family Practice 10/07/13 documented as of this encounter
--- OUTSIDE RECORDS SUMMARY | 2021-11-04 10:37 | XMS_ITS | Encounter Summary ---
:1945 Author Organization [place] Address [address] [place] [address]. [place] [address] Care Team Providers Name Role Phone Nasir Velazquez MD Primary Care Provider [phone] Reason for Visit Reason Onset Date Comments Refill Request 09/08/2013 simvastatin Encounter Details Date Type Department Care Team Description 09/08/2013 [facility] - [place] [facility], Refill Request 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 One time refill as pt needs to est care and labs. Marya burgosrandal KALA: 08/21/13 Myriam Barrett RN BP Readings from Last 1 Encounters: 08/21/13 138/84 Recent Labs Lab Test 08/02/12 1025 06/06/11 1115 CHOL 164 187 HDL 40 43 LDL 82 98 TRIG 209* 232* CHOLHDLRATIO 4.1 4.3 AST 34 01/09/2013 ALT 49 01/09/2013 -OV every 6 months -FLP, AST &/or ALT every 6 months if LDL >100 -FLP, AST &/or ALT every 12 months if LDL <100 -Repeat labs 6-8wks after dosage change -May do RF's until date of scheduled future orders Category: Cholesterol/Statin documented in this encounter Plan of Treatment Not on filedocumented as of this encounter Visit Diagnoses Diagnosis Hyperlipidemia LDL goal <130 Other and unspecified hyperlipidemia documented in this encounter Care Teams Benefits Analyst Relationship Specialty Start Date End Date Nasir Velazquez MD PCP - General 02/18/99 10/06/[address] [address] documented as of this encounter
--- OUTSIDE RECORDS SUMMARY | 2021-11-04 10:37 | XMS_ITS | Encounter Summary ---
:1945 Author Organization [place] Address [facility] 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 Pt in for BP check, brought his machine in to compare. I took his bp after 8 minutes of rest in the room. My machine was at 134/76 p-63. His machine was reading high, in the 140's over 90's. Did his Bp without a machine and got 130/80. Pt may have to send in his machine for calibration. Pt states no symptoms at this time and also states he has yet to start the amlodipine as his numbers at home are mostly in normal range. Pt can be reached at [phone] for further plan. [place] Dubois CMA documented in this encounter Plan of Treatment Not on filedocumented as of this encounter Visit Diagnoses Diagnosis BP check - Primary Screening for hypertension documented in this encounter Care Teams Cartography Supervisor Relationship Specialty Start Date End Date Raghavendra Deras MD PCP - General Family Practice 10/07/13 documented as of this encounter
--- OUTSIDE RECORDS SUMMARY | 2021-11-04 10:37 | XMS_ITS | Encounter Summary ---
:1945 Author Organization [place] Address [facility] 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 BASIC METABOLIC Routine 11/13/2013 9:56 AM Hypertension goal B P Results for this PANEL CDT (blood pressure) < procedure are in 140/90 the results section. documented in this encounter Results (ABNORMAL) Basic metabolic panel (11/13/2013 9:56 AM CDT) P athologist Signature Sodium 141 133 - 144 [place] mmol/L [facility] Potassium 3.6 3.4 - 5.3 [place] mmol/L [facility] Chloride 107 94 - 109 [place] mmol/L [facility] Carbon Dioxide 27 20 - 32 [place] mmol/L [facility] Anion Gap 7 6 - 17 [place] mmol/L [facility] Glucose 100 (H) 70 - 99 [place] mg/dL [facility] Comment: Effective 09/03/2013, the reference range for this assay has changed to reflect new instrumentation/methodology. Urea Nitrogen 16 7 - 30 mg/dL [facility] Comment: Effective 09/03/2013, the reference range for this assay has changed to reflect new instrumentation/methodology. Creatinine 1.04 0.66 - 1.25 mg/dL [facility] GFR Estimate 71 >60 mL/min/1.7m2 [facility] Comment: Non GFR Calc GFR Estimate If Black 86 >60 mL/min/1.7m2 [facility] Comment: GFR Calc Calcium 9.3 8.5 - 10.1 mg/dL [facility] Comment: Effective 09/03/2013, the reference range for this assay has changed to reflect new instrumentation/methodology. Specimen Anatomical Collection Method Collection Time Receive d Time (Source) Location / / Volume Laterality Blood specimen 11/13/2013 9:56 AM 014 9:57 (specimen) CDT AM CDT Raghavendra Deras MD LAB - BLOOD ORDERABLES Performing Organization Address City/State/ZIP Code Phon e Number [facility] [address] [phone] [facility] Lipid panel reflex to direct LDL (11/13/2013 9:56 AM CDT) athologist Signature Cholesterol 150 <200 mg/dL [facility] Comment: LDL Cholesterol is the primary guide to therapy. The NCEP recommends further evaluation of: patients with cholesterol greater than 200 mg/dL if additional risk facto rs are present, cholesterol greater than 240 mg/dL, triglycerides greater than 1 50 mg/dL, or HDL less than 40 mg/dL. Triglycerides 111 0 - 150 mg/dL [facility] Comment: Fasting specimen HDL Cholesterol 58 >40 mg/dL [facility] LDL Cholesterol Calculated 70 0 - 129 mg/dL [facility] Comment: LDL Cholesterol is the primary guide to therapy: LDL-cholesterol goal in high risk patients is <100 mg/dL and in very high risk patients is <70 mg/dL. VLDL-Cholesterol 22 0 - 30 mg/dL [facility] Cholesterol/HDL Ratio 2.6 0.0 - 5.0 [facility] Specimen Anatomical Collection Method Collection Time Receive d Time (Source) Location / / Volume Laterality Blood specimen 11/13/2013 9:56 AM 014 9:57 (specimen) CDT AM CDT Raghavendra Deras MD LAB - BLOOD ORDERABLES Performing Organization Address City/State/ZIP Code Phon e Number [facility] [address] [address] [facility] documented in this encounter Visit Diagnoses Diagnosis Hyperlipidemia LDL goal <130 Other and unspecified hyperlipidemia Hypertension goal BP (blood pressure) < 140/90 Unspecified essential hypertension documented in this encounter Care Teams District Adviser Relationship Specialty Start Date End Date Raghavendra Deras MD PCP - General Family Practice 10/07/13 documented as of this encounter
--- OUTSIDE RECORDS SUMMARY | 2021-11-04 10:37 | XMS_ITS | Encounter Summary ---
:1945 Author Organization [place] Address [facility] 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 Current recommendations are to repeatthe stool test once yearly to improve your chance of detecting colon cancer early. Please contact the clinic if you have further questions or concerns. Sincerely, Nasir Velazquez MD documented in this encounter Plan of Treatment Not on filedocumented as of this encounter Procedures Procedure Name Priority Date/Time Associated Comments Diagnosis FECAL COLORECTAL Routine 08/20/2012 10:20 AM Anemia Resu lts for this CANCER SCREEN FIT CDT procedure are in the results section. documented in this encounter Results Fecal colorectal cancer screen FIT (08/20/2012 10:20 AM CDT) Analysis Performed At Patho logist Time Signature Occult Blood Negative NEG [facility] Specimen Anatomical Collection Method Collection Time Receive d Time (Source) Location / / Volume Laterality Stool specimen 08/20/2012 10:20 3 (specimen) AM CDT 10:21 AM CDT Nasir Velazquez MD LAB - STOOLS ORDERABLES Performing Organization Address City/State/ZIP Code Phon e Number [facility] [address] LABS documented in this encounter Visit Diagnoses Diagnosis Anemia Anemia, unspecified documented in this encounter Care Teams Licensing Worker Relationship Specialty Start Date End Date Nasir Velazquez MD PCP - General 02/18/99 10/06/13 [place] [id number] [place] [address] documented as of this encounter
--- OUTSIDE RECORDS SUMMARY | 2021-11-04 10:37 | XMS_ITS | Encounter Summary ---
:1945 Author Organization [place] Address [facility] 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 Reports abdominal pain, spasms every 2 minutes at umbilicus since lastevening. Symptoms progressively worsening. Denies fever, vomiting, diarrhea, blood in stool. Pain rated 9. We advised eval in ER. Pt agrees to plan, spouse will drive him there now. Ricky Barnhart, RN ORATOR TYPIST documented in this encounter Plan of Treatment Not on filedocumented as of this encounter Visit Diagnoses Not on filedocumented in this encounter Care Teams Information Consultant Relationship Specialty Start Date End Date Nasir Velazquez MD PCP - General 02/18/99 10/06/[address] [address] documented as of this encounter
--- OUTSIDE RECORDS SUMMARY | 2021-11-04 10:37 | XMS_ITS | Encounter Summary ---
:1945 Author Organization [place] Address [facility] 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 Martha Dias Job Analysis Manager Telephone Encounter - Ariella Davidson - 04/21/2014 2:04 PM CDT LVM asking patient to call the clinic, please inform him the message below. Ariella Davidson Job Analysis Manager Telephone Encounter - Raghavendra Deras MD - 04/21/2014 12:56 PM CDT Continue current meds. Follow-up annually or as needed. Telephone Encounter - [place] Dubois CMA - 04/21/2014 9:35 AM CDT BP Readings from Last 3 [...] normal range. Pt can be reached at [phone] for further plan. [place] Dubois CMA documented in this encounter Plan of Treatment Not on filedocumented as of this encounter Visit Diagnoses Not on filedocumented in this encounter Care Teams [employer] Principal Relationship Specialty Start Date End Date Raghavendra Deras MD PCP - General Family Practice 10/07/13 documented as of this encounter
--- OUTSIDE RECORDS SUMMARY | 2021-11-04 10:38 | XMS_ITS | Encounter Summary ---
:1945 Author Organization [place] Address [facility] 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 Thanks! Telephone Encounter - Martha Dias - 07/30/2012 3:59 PM CDT Could you please place future lab orders for patient? Patient scheduled future lab and px. Thanks! Martha Dias Plate Finisher documented in this encounter Plan of Treatment Not on filedocumented as of this encounter Visit Diagnoses Diagnosis Hyperlipidemia LDL goal <130 - Primary Other and unspecified hyperlipidemia Hypertension goal BP (blood pressure) < 140/90 Unspecified essential hypertension documented in this encounter Care Teams Trim Stencil Maker Relationship Specialty Start Date End Date Nasir Velazquez MD PCP - General 02/18/99 10/06/13 [place] [id number] [place] [address] documented as of this encounter
--- OUTSIDE RECORDS SUMMARY | 2021-11-04 10:38 | XMS_ITS | Encounter Summary ---
:1945 Author Organization [place] Address [facility] [place] [address] Care Team Providers Name Role Phone Nasir Velazquez MD Primary Care Provider [phone] Encounter Details Date Type Department Care Team Description 03/14/2012 Medical [place] [facility] Tony Brizuela Home Medical Correspondence And Orthopedic MD Geoff Equipment Order Care [facility] [id number] [facility] [address] [facility] [address] [place] [phone] Social History Tobacco Use Types Packs/Day Years [...] at Date Recorded Male 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
--- OUTSIDE RECORDS SUMMARY | 2021-11-04 10:38 | XMS_ITS | Encounter Summary ---
:1945 Author Organization [place] Address [address] [facility] [place] [address] Care Team Providers Name Role Phone Nasir Velazquez MD Primary Care Provider [phone] Reason for Visit Reason Onset Date Comments Physical Pre Visit Planning - Done 06/29/10 HJ Erroneous encounter-disregard 07/05/2010 Encounter Details Date Type Department Care Team Description 07/01/2010 Office Visit [facility] Nasir Velazquez general medical examination at a health care facility (Primary Dx); Clinic [place] MD Geraldo ERRONEOUS ENCOUNTER--DISREGARD [address] [place], [place] CLINIC [address] [address] [facility] [phone] [place] [address] (Wo rk) Social History Tobacco [...] at Date Recorded Male 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 Please disregard. documented in this encounter Plan of Treatment Not on filedocumented as of this encounter Visit Diagnoses Diagnosis Routine general medical examination at a [facility] care facility - Primary ERRONEOUS ENCOUNTER--DISREGARD documented in this encounter Care Teams Double Reamer Operator Relationship Specialty Start Date End Date Nasir Velazquez MD PCP - General 02/18/99 10/06/[address] [address] documented as of this encounter
--- OUTSIDE RECORDS SUMMARY | 2021-11-04 10:38 | XMS_ITS | Encounter Summary ---
:1945 Author Organization [place] Address [facility] 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 Can you refill? Last OV:08/24/11 Last Refill:08/24/11 doxazosin (CARDURA) 4 MG tablet Allergy/Contraindication:Quinazolines Take 1 tablet by mouth At Bedtime., 4 mg, Oral, AT BEDTIME starting 09/27/2011, Disp-90 tablet, R-2, E-Prescribe hydrochlorothiazide (HYDRODIURIL) 25 MG tablet Take 1 tablet by mouth daily., 25 mg, Oral, DAILY starting 09/27/2011, Disp-90 tablet, R-4, E-Prescribe omeprazole (PRILOSEC) 40 MG capsule Take 1 capsule by mouth daily., 40 mg, Oral, DAILY starting 09/27/2011, Disp-90 capsule, R-4, E-Prescribe documented in this encounter Plan of Treatment Not on filedocumented as of this encounter Visit Diagnoses Diagnosis Esophageal reflux - Primary Hypertension goal BP (blood pressure) < 140/90 Unspecified essential hypertension HYPERTROPHY of PROSTATE Hypertrophy of prostate without urinary obstruction and other lower urinary tract symptoms (LUTS) documented in this encounter Care Teams Head Of Strategy Relationship Specialty Start Date End Date Nasir Velazquez MD PCP - General 02/18/99 10/06/13 [facility] [address] [place] [address] documented as of this encounter
--- OUTSIDE RECORDS SUMMARY | 2021-11-04 10:38 | XMS_ITS | Encounter Summary ---
:1945 Author Organization [place] Address [address] [facility] [place] [address] Care Team Providers Name Role Phone Nasir Velazquez MD Primary Care Provider Reason for Visit Referral not Required - Closed Specialty Diagnoses / Procedures Referred By Contact Refer red To Contact Diagnoses Back injury Nasir Velazquez, [facility] [address] [facility] [address] [place] [address] [place], [place] [address] Phone: [phone] Referral ID Status Reason Start Date Expiration Date Visits Requ ested Visits Authorized [id number] Closed 04/02/2012 09/29/2012 1 1 Encounter Details Date Type Department Care Team Description 04/03/2012 Therapy Visit [facility] Vernon Steel, LBP ( low back pain) Rehabilitation Services PT (Primary Dx) [address] ATHLETIC MEDICINE [place], [place] [id number] [place] [address] [place], [place] [phone] [address] Social History Tobacco Use Types Packs/Day [...] at Date Recorded Male 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 Medical allergies: yes (Flucatazone nasal spray). Current medications: High blood pressure medication and other (Enlarged Prostate, Reflux, Cholesterol). Current occupation is Retired. Barriers include: None as reported by patient. Red flags: None as reported by patient. Objective: System Physical Exam General ROS Assessment/Plan: Please refer to the daily flowsheet for treatment today, total treatment time and time spent performing 1:1 timed codes. NISTRATIVE OFFICE SPECIALIST [place], PT - 04/03/2012 3:42 PM CST Subjective: Terry Montero is a 66 year old male with a lumbar condition. Condition occurred with: Bending. Condition occurred: at home. Pt experienced sudden onset of left LBP as he was bending over a sink on 03/31/12. The pain has slightly improved since then. . Patient reports pain: Lumbar spine left. Radiates to: No radiation. Pain is described as sharp and is constant and reported as 9/10 (Range from 6-9/10). Pain is the same all the time. Symptoms are exacerbated by bending and lifting (transitional movements) and relieved by NSAID's and ice. Since onset symptoms are gradually improving. General health as reported by patient is good. Objective: Standing Alignment: Lumbar: Lordosis decr Pelvic: Normal Lumbar/SI Evaluation ROM: AROM Lumbar: Flexion: 75% with increased LBP Ext: 50% with no effect Side Bend: Left: 25% with increased LBP Right: 75% with no effect Rotation: Left: Right: Side [place]: Left: Right: Lumbar Myotomes: not assessed Lumbar DTR's: not assessed Lumbar Dermtomes: not assessed Neural Tension/Mobility: Lumbar: Normal Lumbar Palpation: Palpation (lumbar): Tender left L3-L5. General ROS Assessment/Plan: Patient is a 66 year old male with lumbar complaints. Patient has the following significant findings with corresponding treatment plan. 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 Independent in home treatment program. Reach maximal therapeutic benefit. Please refer to the daily flowsheet for treatment today, total treatment time and time spent performing 1:1 timed codes. NISTRATIVE OFFICE SPECIALIST documented in this encounter Plan of Treatment Not on filedocumented as of this encounter Procedures Procedure Name Priority Date/Time Associated Diagnosis Comme [facility] ZZ THERAPEUTIC Routine 04/03/2012 3:52 PM ADMINISTRATIVE OFFICE SPECIALIST LBP (low back p ain) EXERCISES documented in this encounter Visit Diagnoses Diagnosis LBP (low back pain) - Primary Lumbago documented in this encounter Care Teams Hydrotreater Operator Relationship Specialty Start Date End Date Nasir Velazquez MD PCP - General 02/18/99 10/06/13 [facility] [address] [place] [address] documented as of this encounter
--- OUTSIDE RECORDS SUMMARY | 2021-11-04 10:38 | XMS_ITS | Encounter Summary ---
:1945 Author Organization [place] Address [facility] [place] [address] Care Team Providers Name Role Phone Nasir Velazquez MD Primary Care Provider [phone] Reason for Visit SOTO Physical Therapy (Routine) - Closed Specialty Diagnoses / Procedures Referred By Contact Refer red To Contact Tony Brizuela MD ZZ [facility] [address] [place], [place] [phone] [place] [address] Phone: Fax: Referral ID Status Reason Start Date Expiration Date Visits V isits Requested Authorized SOTO/HP/SPINE Closed 01/15/2012 02/05/2012 10 8 Encounter Details Date Type Department Care Team Description 01/15/2012 Therapy Visit [place] for Enrique Blum PT Neck pain (Primary Athletic Medicine - SOTO SHANEL LE Dx) [facility] [phone] [place] [facility] [address] 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 Medical allergies: yes (nasal spray - Flonase). Other surgeries include: None reported. Current medications: High blood pressure medication. Current occupation is Retired . Barriers include: None as reported by patient. Objective: System Physical Exam General ROS Assessment/Plan: GN AGENT Enrique Blum, PT - 01/15/2012 9:59 AM CST Subjective: Terry Montero is a 66 year old male with a cervical spine condition. This is a chronic condition Terry notes many years of progressive neck pain and arthritic change. Recently sought MD 01/2012 to address the pain. Primarily left sided pain along the top of the shoulder. He denies any head, face, upper or lower arm pains. He denies any left ar or hand paraesthesias, some left thumb arthritis. Denies positive cough/sneeze/vision changes/swallow pain. He has a history of trying an over the door weighted traction bag with temporary relief.. and is constant Pain Scale: 7/10 worst, 2/10 baseline, occasionally gets to 0/10 but not lasting. Pain is worse during the day. Symptoms are exacerbated by rotating head and sitting and relieved by NSAID's. Objective: Flexibility/Screens: Positive screens: Cervical (mild forward head position. notes Sx relief with trial of manual and mechanical cervical traction) Spine: Decreased left spine flexibility: Upper Trap Decreased right spine flexibility: Upper Trap Cervical/Thoracic Evaluation AROM: AROM Cervical: Flexion: NL Extension: 75% Rotation: Left: 75% Right: 75% Side Bend: Left: 75% Right: 75% Headaches: none Cervical Myotomes: C1-2 (Neck Flex): Left: 5 Right: 5 C3 (neck side bend): Left: 5 Right: 5 C4 (shrug): Left: 5 Right: 5 C5 (Deltoid): Left: 5 Right: 5 C6 (Biceps): Left: 5 Right: 5 C7 (Triceps): Left: 5 Right: 5 C8 (Thumb Ext): Left: 5 Right: 5 T1 (Intrinsics): Left: 5 Right: 5 DTR's: C5 (Biceps): Left: 2 Right: 2 C6 (Brachioradialis): Left: 2 Right: 2 C7 (Triceps): Left: 2 Right: 2 Cervical Dermatomes: C5 left: Normal-light touch C5 right: Normal-light touch C6 left: Normal-light touch C6 right: Normal-light touch C7 left: Normal-light touch C7 right: Normal-light touch C8 left: Normal-light touch C8 right: Normal-light touch T1 left: Normal-light touch T1 right: Normal-light touch Cervical Palpation: Tenderness present at Left: Upper Trap and Erector Spinae Cervical Stability/Joint Clearing: Left positive at:Provocation (spurlings positive bilaterally) Right positive at: Provocation General ROS Assessment/Plan: Patient is a 66 year old male with cervical complaints. Patient has the following significant findings with corresponding treatment plan. Diagnosis 1: DJD Pain - hot/cold therapy, mechanical traction, manual therapy, education and home program, Issue andinstruct home traction Decreased ROM/flexibility - manual therapy and therapeutic exercise Decreased joint mobility - manual therapy and therapeutic exercise Impaired muscle performance - neuro re-education Decreased function - therapeutic activities Impaired posture - neuro re-education Previous and current functional limitations: (See Goal Flow Sheet for this information) Short term and correction goals: (See Goal Flow Sheet for this [...] 1 X week, once daily Duration: for 6 weeks Discharge Plan: Achieve all LTG. Independent in home treatment program. Reach maximal therapeutic benefit. Please refer to the daily flowsheet for treatment today, total treatment time and time spent performing 1:1 timed codes. GN AGENT documented in this encounter Plan of Treatment Not on filedocumented as of this encounter Procedures Procedure Name Priority Date/Time Associated Diagnosis Comme nts ZZC MECHANICAL TRACTION Routine 01/15/2012 8:21 PM DESIGN AGENT Neck pa in THERAPY documented in this encounter Visit Diagnoses Diagnosis Neck pain - Primary Cervicalgia documented in this encounter Care Teams Millstone Cleaner Relationship Specialty Start Date End Date Nasir Velazquez MD PCP - General 02/18/99 10/06/[address] [address] documented as of this encounter
--- OUTSIDE RECORDS SUMMARY | 2021-11-04 10:38 | XMS_ITS | Encounter Summary ---
:1945 Author Organization [place] Address [facility] [place] [address] Care Team Providers Name Role Phone Nasir Velazquez MD Primary Care Provider Reason for Referral Specialty Diagnoses / Procedures Referred By Contact Refer red To Contact Nasir Velazquez And MD zarina [facility] [address] [place], [place] [address] Referral ID Status Reason Start Date Expiration Date Visits Requ ested Visits Authorized Reason for Visit Reason Comments Physical pt Pre Visit Planning - Done 07/01/10 HJ Encounter Details Date Type Department Care Team Description 07/08/2010 Office Visit [facility] Nasir Velazquez general medical examination at a health care facility (Primary Dx); Clinic Candy Chow MD HYPERTROPHY of PROSTATE ; [address] [facility] SHAHEED NUÑEZ ESOPHAGEAL REFLUX; [place], [place] CLINIC Vaccin strep pneumoniae; [id number] [place] [address] [place] Hypertension goal BP (blood pressure) < 140/90; [phone] Trochanteric bursitis; [place], [place] Advance ca re planning; [address] Hyperlipidemia LDL goal <130 Social History Tobacco [...] at Date Recorded 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 documented as of this encounter Last Filed Vital Signs Vital Sign Reading Time Taken Comments Blood Pressure 134/84 07/08/2010 10:37 AM CDT Pulse 61 07/08/2010 10:37 AM CDT Temperature 36.8 ??C (98.3 ??F) 07/08/2010 10:37 AM CDT Respiratory Rate - - Oxygen Saturation 96% 07/08/2010 10:37 AM CDT Inhaled Oxygen Concentration - - Weight 87.3 kg (192 lb 6 oz) 07/08/2010 10:37 AM CDT Height 174.6 cm (5' 8.75) 07/08/2010 10:37 AM CDT shoe s off Body Mass Index 28.62 07/08/2010 10:37 AM CDT documented in this encounter Progress Notes Pily Colmenares - 07/01/2010 2:01 PM CDT CC: Terry Montero is an 65 year old male who presents for preventative health visit. Besides routine health maintenance, he would like to discuss left hip pain when laying down. Healthy Habits: Do you get at least three servings of calcium containing foods daily (dairy, green leafy vegetables,etc.)? yes Outside of work or daily activities, how many days per week do you exercise for 30 minutes or longer? 0 Estimated Body mass index is 28.62 kg/(m^2) as calculated from the following: Height as of this encounter: 5' 8.75[shoes off[(1.746 m). Weight as of this encounter: 192 lb 6 oz(87.261 kg). Have you had an eye exam in the past two years? yes Do you see a dentist twice per year? yes Staff Signature Pily Leon PHQ-2 Over the last two weeks- Have you been bothered by little interest or pleasure in doing things? No Over the last two weeks- Have you been feeling down, depressed, or hopeless? No ABUSE: Current or Past(Physical, Sexual or Emotional)- No Do you feel safe in your environment - Yes History Substance Use Topics ??? Smoking status: Former Smoker Quit date: 02/06/1984 ??? Smokeless tobacco: Never Used ??? Alcohol Use: 1.0 oz/week moderate The patient does not drink >3 drinks per day nor >7 drinks per week. Reviewed orders with patient. Reviewed health maintenance and updated orders accordingly - Yes Staff Signature Phoenix Dubois CMA All Histories reviewed and updated in [facility]. ROS: C: NEGATIVE for fever, chills, change [...] discharge M: NEGATIVE for significant arthralgias or myalgia. Hip pain when laying on that side - consistent with trochanteric bursitis N: NEGATIVE for weakness, dizziness or paresthesias P: NEGATIVE for changes in mood or affect OBJECTIVE: BP 134/84 Pulse 61 Temp(Src) 98.3 ??F (36.8 ??C) (Oral) Ht 5' 8.75 (1.746 m) Wt 192 lb 6 oz(87.261 kg) BMI 28.62 kg/m2 SpO2 96% GENERAL APPEARANCE: health, alert and no distress EYES: Eyes grossly [...] PSYCH: mentation appears normal and affect normal/bright COUNSELING: regular exercise weight management healthy diet/nutrition vision screening hearing screening prostate cancer screening Obesity Action Plan: Current exercise routine: cardiovascular workout on exercise equipment. Established an exercise regimen with the patient. Diet regimen was discussed. self-directed dieting ATP III Guidelines ICSI Preventive Guidelines ASSESSMENT/PLAN: V70.0 Routine general medical examination at a health care facility (primary encounter diagnosis) Comment: Plan: Discussed diet and aerobic exercise. See other preventative health recommendations in orders. 272.2 Mixed hyperlipidemia Comment: Plan: simvastatin (ZOCOR) 40 MG tablet, fish oil-omega-3 fatty acids (FISH OIL) 1000 MG capsule Recent Labs Lab Test 06/30/10 0901 06/30/09 1021 ??? CHOL 164 185 ??? HDL 40 35* ??? LDL 87 108 ??? TRIG 187* 212* ??? CHOLHDLRATIO 4.2 5.3* LDL at goal. continue current regimen. recheck 12 months. 600.00 HYPERTROPHY of PROSTATE Comment: Plan: doxazosin (CARDURA) 4 MG tablet 401.9AH Hypertension Comment: Plan: hydrochlorothiazide (HYDRODIURIL) 25 MG tablet BP Readings from Last 3 Encounters: 07/08/10 134/84 07/01/10 142/90 04/30/09 124/78 well controlled, continue current regimen. recheck 6 months 530.81 ESOPHAGEAL REFLUX Comment: Plan: omeprazole (PRILOSEC) 40 MG capsule V03.82 Vaccin strep pneumoniae Comment: Plan: PNEUMOCOCCAL VACCINE,ADULT,SQ OR IM V65.49AK Advance care planning Comment: Plan: HONORING CHOICES REFERRAL documented in this encounter Nursing Notes 07/08/2010 10:30 AM CDT >> [place] Jul 08, 2010 10:43 AM Patient presents with: Physical - pt Pre Visit Planning - Done - 07/01/10 HJ Initial BP 134/84 Pulse 61 Temp(Src) 98.3 ??F (36.8 ??C) (Oral) Ht 5' 8.75 (1.746 m) Wt 192lb 6 oz (87.261 kg) BMI 28.62 kg/m2 SpO2 96% Estimated Body mass index is 28.62 kg/(m^2) as calculated from the following: Height as of this encounter: 5' 8.75[shoes off[(1.746 m). Weight as of this encounter: 192 lb 6 oz(87.261 kg).. BP completed using cuff size: large Health maintenance- pneumovax, and ad. Phoenix Dubois CMA documented in this encounter Plan of Treatment Scheduled Referrals Name Type Priority Associated Diagnoses Order S chedujudi HONORING CHOICES REFERRAL Referral Routine Advance care pl anning Ordered: 07/08/2010 documented as of this encounter Visit Diagnoses Diagnosis Routine general medical examination at a health care facility - Primary HYPERTROPHY of PROSTATE Hypertrophy of prostate without urinary obstruction and other lower urinary tract symptoms (LUTS) Esophageal reflux Need for prophylactic vaccination agains t Streptococcus pneumoniae (pneumococcus) Need for prophylactic vaccination agains t streptococcus pneumoniae (pneumococcus) Hypertension goal BP (blood pressure) < 140/90 Unspecified essential hypertension Trochanteric bursitis Enthesopathy of hip region Advance care planning Other specified counseling Hyperlipidemia LDL goal <130 Other and unspecified hyperlipidemia documented in this encounter Care Teams Package Liner Relationship Specialty Start Date End Date Nasir Velazquez MD PCP - General 02/18/99 10/06/13 [facility] [address] [place] [address] documented as of this encounter
--- OUTSIDE RECORDS SUMMARY | 2021-11-04 10:38 | XMS_ITS | Encounter Summary ---
:1945 Author Organization [place] Address [address] [facility] 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 Poly Ibrahim RN. Telephone Encounter - Martha Dias - 08/10/2010 11:39 AM CDT Patient needs all refills from 07/08/2010 sent to [facility]. Patient can be reached at [phone]. Martha Dias Line Up Machine Operator documented in this encounter Plan of Treatment Not on filedocumented as of this encounter Visit Diagnoses Diagnosis HYPERTROPHY of PROSTATE Hypertrophy of prostate without urinary obstruction and other lower urinary tract symptoms (LUTS) Hypertension goal BP (blood pressure) < 140/90 Unspecified essential hypertension Esophageal reflux Hyperlipidemia LDL goal <130 Other and unspecified hyperlipidemia Preventative health care Routine general medical examination at a health care facility documented in this encounter Care Teams Candy Catcher Relationship Specialty Start Date End Date Nasir Velazquez MD PCP - General 02/18/99 10/06/13 [place] [id number] [place] [address] documented as of this encounter
--- OUTSIDE RECORDS SUMMARY | 2021-11-04 10:38 | XMS_ITS | Encounter Summary ---
:1945 Author Organization [place] Address [facility] [place] [address] Care Team Providers Name Role Phone Nasir Velazquez MD Primary Care Provider [phone] Reason for Referral - Closed Specialty Diagnoses / Procedures Referred By Contact Refer red To Contact Diagnoses Pain of left thumb Tony Brizuela MD [facility] [place] [address] [facility] [address] [place], [place] [phone] Referral ID Status Reason Start Date Expiration Date Visits Requ ested Visits Authorized [id number] Closed 01/12/2012 07/10/2012 1 1 CTOR OF CATERING SALES - Closed Specialty Diagnoses / Procedures Referred By Contact Refer red To Contact Diagnoses Neck pain Tony Brizuela MD [facility] [address] [facility] [address] [place], [place] [phone] Referral ID Status Reason Start Date Expiration Date Visits Requ ested Visits Authorized [id number] Closed 01/12/2012 07/10/2012 1 1 CTOR OF CATERING SALES Reason for Visit Reason Comments Musculoskeletal Problem left hand pain Encounter Details Date Type Department Care Team Description 01/12/2012 Office Visit Ef[facility] Lee And Tony Brizuela Neck pain (Primary Dx); Orthopedic Care Stew Tellez MD Pain of left thumb [place] [facility] [address] [facility] [address] [place] [address] [address] [place], [place] [id number] [place] [address] [phone] (Wo rk) Social History Tobacco Use Types [...] Date Recorded 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 documented as of this encounter Last Filed Vital Signs Vital Sign Reading Time Taken Comments Blood Pressure 132/82 01/12/2012 12:55 PM DIRECTOR OF CATERING SALES Pulse - - Temperature - - Respiratory Rate - - Oxygen Saturation - - Inhaled Oxygen Concentration - - Weight 88.9 kg (196 lb) 01/12/2012 12:55 PM DIRECTOR OF CATERING SALES Height 176.5 cm (5' 9.5) 01/12/2012 12:55 PM DIRECTOR OF CATERING SALES Body Mass Index 28.53 01/12/2012 12:55 PM DIRECTOR OF CATERING SALES documented in this encounter Patient Instructions Patient InstructionsClem Fan - 01/12/2012 1:15 PM CST Please call [facility], to schedule your appointment if you have not heard from them in two business days Arrive 15 minutes early. If you need to cancel or change the appointment please call [facility], Please follow up in clinic as needed *Follow up as needed or as discussed with your care provider *See Chart Note for specific details CTOR OF CATERING SALES documented in this encounter Progress Notes Tony Brizuela MD - 01/12/2012 12:56 PM CST HISTORY OF PRESENT ILLNESS: Terry Montero is a 66 year old male who is seen in consultation at the request of Dr. Velazquezfor left hand pain. Present symptoms: Pt has pain in his thumb with ADLs. He states he has some weakens with his thumb when grabbing items. Treatments tried to this point: nothing. Orthopedic PMH: surgery for left trigger thumb [address] 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 Past Medical History Diagnosis Date ??? Essential hypertension, benign 12/30/2002 ??? Acute duodenal ulcer with hemorrhage, without mention of obstruction 1997 ??? Pulmonary nodule CT reassuring 2008 Past Surgical History Procedure Date ??? Hc colonoscopy thru stoma, diagnostic 2002 Family History Problem Relation Age of Onset ??? Diabetes Maternal Grandmother ??? Stroke Maternal Grandmother in old age ??? C.A.D. Maternal Uncle [place] ??? Colon CA Maternal Uncle ??? Prostatic CA Paternal Grandfather 84 ??? Prostatic CA Other Cousin ??? Heart Brother stent - 66 ??? Prostatic CA Brother no cancer, but a produre due reduce the prostate History Social History ??? Marital Status: Spouse Name: Karen Number of Children: 1 ??? Years of Education: 15 Occupational History ??? [employer],[address] [place] [address] Social History Main Topics ??? Smoking status: Former Smoker Quit date: 02/06/1984 ??? Smokeless tobacco: Never Used ??? Alcohol Use: 1.0 oz/week moderate ??? Drug Use: No ??? Sexually Active: Yes -- Female partner(s) Other Topics Concern ??? Exercise No ??? Seat Belt Yes ??? Parent/Sibling W/ Cabg, Mi Or Angioplasty Before 65f 55m? No Social History Narrative ??? No narrative on file Current Outpatient Prescriptions Medication Sig ??? hydrochlorothiazide (HYDRODIURIL) 25 MG tablet Take 1 tablet by mouth daily. ??? omeprazole (PRILOSEC) 40 MG capsule Take 1 capsule by mouth daily. ??? doxazosin (CARDURA) 4 MG tablet Take 1 tablet by mouth At Bedtime. ??? simvastatin (ZOCOR) 40 MG tablet Take 0.5 tablets by mouth At Bedtime. ??? fluticasone (FLONASE) 50 MCG/ACT nasal spray 1-2 sprays by Both Nostrils route daily. ??? fish oil-omega-3 fatty acids (FISH OIL) 1000 MG capsule Take 1 capsule by mouth 2 times daily. ??? Multiple Vitamin (ONE-A-DAY MENS) TABS Take 1 tablet by mouth daily. Allergies Allergen Reactions ??? Mometasone Furoate Monohydrate gets bloody noses from Nasonex ??? Quinazolines get bloody noses from Flomax REVIEW OF SYSTEMS: CONSTITUTIONAL: NEGATIVE for fever, chills, change in weight INTEGUMENTARY/SKIN: NEGATIVE for worrisome rashes, moles or lesions EYES: NEGATIVE for vision changes or irritation ENT/MOUTH: NEGATIVE for ear, mouth and throat problems RESP: NEGATIVE for significant cough or SOB BREAST: NEGATIVE for masses, tenderness or discharge CV: NEGATIVE for chest pain, palpitations or peripheral edema GI: NEGATIVE for nausea, abdominal pain, heartburn, or change in bowel habits : Negative MUSCULOSKELETAL: See HPI above NEURO: NEGATIVE for weakness, dizziness or paresthesias ENDOCRINE: NEGATIVE for temperature intolerance, skin/hair changes HEME/ALLERGY/IMMUNE: NEGATIVE for bleeding problems PSYCHIATRIC: NEGATIVE for changes in mood or affect PHYSICAL EXAM: BP 132/82 Ht 5' 9.5 (1.765 m) Wt 196 lb (88.905 kg) BMI 28.53 kg/m2 Body mass index is 28.53 kg/(m^2). GENERAL APPEARANCE: healthy, alert and no distress SKIN: no suspicious lesions or rashes NEURO: Normal strength and tone, mentation intact and speech normal VASCULAR: Good pulses, and capillary refill LYMPH: no lymphadenopathy PSYCH: mentation appears normal and affect normal/bright MSK: Examination of his neck and shoulder girdle musculature reveals no asymmetry or atrophy to the muscle masses. He has a normal fluid motion to the cervical spine. He has normal motion to the shoulder elbow wrist and fingers. His thumb has slight prominence to the MCP joint. He has 5/5 manual muscle testing and reflexes are symmetric. There is no atrophy or asymmetry to the hand or arm musculature. 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 We'll treat the thumb arthritis symptomatically with nonsteroidal anti-inflammatories and possibly the use of glucosamine and sent him for some therapy. Imaging Interpretation: None today James Brizuela MD Department of Orthopedic Surgery CTOR OF CATERING SALES documented in this encounter Nursing Notes 01/12/2012 1:00 PM CST >> CLEM FAN SunJan 12, 2012 12:59 PM Patient presents with: Musculoskeletal Problem - left hand pain Initial BP 132/82 Ht 5' 9.5 (1.765 m) Wt 196 lb (88.905 kg) BMI 28.53 kg/m2 Estimated Body mass index is 28.53 kg/(m^2) as calculated from the following: Height as of this encounter: 5' 9.5(1.765 m). Weight as of this encounter: 196 lb(88.905 kg).. BP completed using cuff size: regular Julisa ArriazaEd, ATC documented in this encounter Plan of Treatment Scheduled Referrals Name Type Priority Associated Diagnoses Order S chedule SOTO PT, HAND, AND Referral Routine Neck pain Ordered: 1 03/14/2011 CHIROPRACTIC REFERRAL SOTO PT, HAND, AND Referral Routine Pain of left thumb Orde red: 01/12/2012 CHIROPRACTIC REFERRAL documented as of this encounter Visit Diagnoses Diagnosis Neck pain - Primary Cervicalgia Pain of left thumb Pain in limb documented in this encounter Care Teams Crop And Soil Technician Relationship Specialty Start Date End Date Nasir Velazquez MD PCP - General 02/18/99 10/06/13 [facility] [address] [place] [address] documented as of this encounter
--- OUTSIDE RECORDS SUMMARY | 2021-11-04 10:38 | XMS_ITS | Encounter Summary ---
:1945 Author Organization [place] Address [facility], [id number] [facility] [place] [address] Care Team Providers Name Role Phone Nasir Velazquez MD Primary Care Provider [phone] Reason for Visit SOTO Physical Therapy (Routine) - Closed Specialty Diagnoses / Procedures Referred By Contact Refer red To Contact Tony Brizuela MD [facility] [address] [place], [place] [phone] [place] [address] Phone: Fax: Referral ID Status Reason Start Date Expiration Date Visits V isits Requested Authorized SOTO/HP/SPINE Closed 02/12/2012 02/04/2013 20 18 Encounter Details Date Type Department Care Team Description 02/14/2012 Therapy Visit [place] for Enrique Blum PT Neck pain (Primary Athletic Medicine - SOTO SHANEL LE Dx) [facility] [address] [facility] [address] 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 SUBJECTIVE Subjective changes noted by patient: Terry notes benefit of traction, researched cost burden of ahome Tx unit and wishes to proceed with issuing it. Changes in function: Yes (See Goal flowsheet attached for changes in current functional level) Adverse reaction to treatment or activity: None OBJECTIVE Changes noted in objective findings: None ASSESSMENT/PLAN Updated problem list and treatment plan: Diagnosis 1: Neck pain STG/LTGs have been met or progress has been made towards goals: Yes (See Goal flow sheet completed today.) Assessment of Progress: The patient's condition has potential to improve. Self Management Plans: Patient is independent in a home treatment program. Terry continues to require the following intervention to meet STG and LTG's: PT intervention is no longer required to meet STG/LTG. Recommendations: This patient is ready to be discharged from therapy and continue their home treatment program. Continue with HEP Please refer to the daily flowsheet for treatment today, total treatment time and time spent performing 1:1 timed codes. POLISHER HAND documented in this encounter Plan of Treatment Not on filedocumented as of this encounter Procedures Procedure Name Priority Date/Time Associated Diagnosis Comme [facility] THERAPEUTIC Routine 02/14/2012 2:12 PM LENS POLISHER HAND Neck pain ACTIVITIES documented in this encounter Visit Diagnoses Diagnosis Neck pain - Primary Cervicalgia documented in this encounter Care Teams Trust Administrative Assistant Relationship Specialty Start Date End Date Nasir Velazquez MD PCP - General 02/18/99 10[facility]06/13 [facility] [address] [place] [address] documented as of this encounter
--- OUTSIDE RECORDS SUMMARY | 2021-11-04 10:38 | XMS_ITS | Encounter Summary ---
:1945 Author Organization [place] Address [facility] [place] [address] Care Team Providers Name Role Phone Nasir Velazquez MD Primary Care Provider [phone] Reason for Visit Auth/Cert - Closed Specialty Diagnoses / Procedures Referred By Contact Refer red To Contact Radiology Rh Xray [address] [place], [place] [address] Phone: Fax: Referral ID Status Reason Start Date Expiration Date Visits Requ ested Visits Authorized [id number] Closed 06/13/2011 12/10/2011 1 1 Encounter Details Date Type Department Care Team Description 06/14/2011 Hospital Encounter [facility] [place], Arth[facility] DPM [address] [facility] [address] [address] [place], [place] [id number] (Wo rk) Social History Tobacco Use Types [...] at Date Recorded Male 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 Last Filed Vital Signs Vital Sign Reading Time Taken Comments Blood Pressure 135/84 06/14/2011 10:48 AM CDT Pulse 68 06/14/2011 10:48 AM CDT Temperature - - Respiratory Rate - - Oxygen Saturation - - Inhaled Oxygen Concentration - - Weight - - Height - - Body Mass Index - - documented in this encounter Discharge Instructions Discharge InstructionsErnie Lott RN - 06/14/2011 11:25 AM CDT Verbal and written instructions given and pt verbalized understanding documented in this encounter Medications at Time of Discharge Medication Sig Dispensed Refills Start Date End Date doxazosin (CARDURA) 4 MG Take 1 tablet by 90 tablet 4 08/1108/24/2011 tabletIndications: mouth At Hypertrophy of prostate Bedtime. without urinary obstruction and other lower urinary tract symptoms (LUTS) fish oil-omega-3 fatty Take 1 capsule 180 capsule 4 08/12/19 11 01/10/2013 acids (FISH OIL) 1000 MG by mouth 2 times capsuleIndications: daily. Hyperlipidemia LDL goal <130 fluticasone (FLONASE) 50 1-2 sprays by 1 Package 3 06/06/19 12 03/21/2012 MCG/ACT nasal Both Nostrils sprayIndications: Chronic route daily. rhinitis hydrochlorothiazide Take 1 tablet by 90 tablet 4 08/11/2010 09/27/2011 (HYDRODIURIL) 25 MG mouth daily. tabletIndications: Hypertension goal BP (blood pressure) < 140/90 Multiple Vitamin (ONE-A-DAY Take 1 tablet by 30 tablet 11 01/10/2013 MENS) TABSIndications: mouth daily. Preventative health care omeprazole (PRILOSEC) 40 MG Take 1 capsule 90 capsule 4 08/201009/27/2011 capsuleIndications: by mouth daily. Esophageal reflux simvastatin (ZOCOR) 40 MG Take 0.5 tablets 45 tablet 4 08/201008/18/2011 tabletIndications: by mouth At Hyperlipidemia LDL goal Bedtime. <130 documented as of this encounter Procedure Notes Kory Lang PA-C - 06/14/2011 11:19 AM CDT RADIOLOGY PROCEDURE NOTE Patient name: Terry Montero : 1945 Pre-procedure diagnosis: Bilateral foot pain Post-procedure diagnosis: Same Procedure Date/Time: June 14, 2011 11:19 AM Procedure: Bilateral 2nd and 3rd TMT joint steroid injection Estimated blood loss: None Specimen(s) collected with description: none The patient tolerated the procedure well with no immediate complications. See imaging dictation for procedural details and findings. Provider name: Kory Lang Button Breaker Operator(s):None documented in this encounter Plan of Treatment Not on filedocumented as of this encounter Procedures Procedure Name Priority Date/Time Associated Diagnosis Comme nts XR JOINT INJECTION Routine 06/14/2011 11:37 AM Re sults for this INTERMED RIGHT CDT procedure are in the results section. XR JOINT INJECTION Routine 06/14/2011 11:35 AM Arthralgia Re sults for this INTERMED RIGHT CDT procedure are in the results section. 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 PROCEDURE: The risks (including bleedin g, infection, and allergy to contrast and medications) and benefits of the procedure were explained to the patient and consent was obtained . 4 mL of 1% lidocaine was used for local anesthesia. Using steril e technique and fluoroscopic guidance, a #25 gauge needle was placed into the second TMT joints bilaterally using a dorsal approach. 0. 5 mL of Omnipaque 180 contrast was injected to confirm intraarticular location of the needle tips on each side. There was apparent communica tion from the 2nd TMT joints to the 3rd TMT joints. 40 mg of Kenalog an d 1 mL of Marcaine 0.5% was injected into each foot. No initial com plications. Total fluoro time: 39 seconds The patients pain level (0-10 scale) we re as follows: PRE INJECTION Right foot 3 Left foot 3 POST INJECTION Right foot 0 Left foot 0 IMPRESSION: Technically successful bila teral foot steroid/anesthetic injection with favorable initial pain r elief. Long-term results pending. [place] DPM IMG DIAGNOSTIC IMAGING ORDER MICHELLE X-ray Joint injection/aspiration intermediate (06/14/2011 11:35 AM CDT) Anatomical Region Laterality Modality Lower Extremity Right Other Specimen (Source) Anatomical Collection Method Collection Time Re ceived Time Location / / Volume Laterality 06/14/2011 11:35 AM CDT Impressions 06/14/2011 3:59 PM CDT JOINT INJECT/ASP INTERMEDIATE ??June 13 11:35:00 AM History: ??Midfoot arthralgia with secon d and third tarsometatarsal osteoarthritis. PROCEDURE: The risks (including bleeding , infection, and allergy to contrast and medications) and benefits o f the procedure were explained to the patient and consent was obtained. ??4 mL of 1% lidocaine was used for local anesthesia. Using sterile technique and fluoroscopic guidance, a #25 gauge needle was placed into the second TMT joints bilaterally using a dorsal approach. ??0 .5 mL of Omnipaque 180 contrast was injected to confirm intraarticular l ocation of the needle tips on each side. There was apparent communicat ion from the 2nd TMT joints to the 3rd TMT joints. ??40 mg of Kenalog a nd 1 mL of Marcaine 0.5% was injected into each foot. ??No initial co mplications. Total fluoro time: 39 seconds The patients pain level (0-10 scale) wer e as follows: PRE INJECTION ?? Right foot ?3 Left foot ? 3 POST INJECTION Right foot ?0 Left foot ? 0 IMPRESSION: ??Technically successful jane ateral foot steroid/anesthetic injection with favorable ??initial pain relief. ??Long-term results pending. [place] DPM [facility] DIAGNOSTIC IMAGING ORDER MICHELLE documented in this encounter Visit Diagnoses Diagnosis Arthralgia Pain in joint, site unspecified documented in this encounter Administered Medications Inactive Administered Medications - up to 3 most recent administrations Medication Order MAR Action Action Date Dose Rate Site bupivacaine (MARCAINE) 0.5 % injection Starting on Sun06/14/11 at 1056, For 1 dose, ERNIE LOTT: Cabinet Override BUPivacaine (MARCAINE) injection Given by Other 06/14/2011 12:14 PM C DT 10 mg 0.5% (PF) 20 mg (4 mL), INTRA-ARTICULAR, ONCE, On Sun06/14/11 at 1100, For 1 dose iopamidol ([id number]) 41% solution Given by Other 06/14/2011 12:15 PM CDT 1 mL 1 mL 1 mL, INTRA-ARTICULAR, ONCE, On Sun06/14/11 at 1100, For 1 dose Lidocaine 1% injection 5 mL Given by Other 06/14/2011 11:16 AM CDT 2 mLs 5 mL, Subcutaneous, ONCE, On Sun06/14/11 at 1100, For 1 dose triamcinolone acetonide (KENALOG-40) 40 MG/ML injection Starting on Sun06/14/11 at 1056, For 1 dose, ERNIE LOTT: Cabinet Override triamcinolone acetonide (KENALOG-40) Given by Other 06/14/2011 12:15 PM CDT 80 mg injection 80 mg 80 mg, INTRA-ARTICULAR, ONCE, On Sun06/14/11 at 1100, For 1 dose documented in this encounter Care Teams Maintenance Service Technician Relationship Specialty Start Date End Date Nasir Velazquez MD PCP - General 02/18/99 10/06/13 [facility] [address] [place] [address] documented as of this encounter
--- OUTSIDE RECORDS SUMMARY | 2021-11-04 10:38 | XMS_ITS | Encounter Summary ---
:1945 Author Organization [place] Address [address] 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 XR JOINT INJECTION Routine 07/13/2010 11:33 AM INTERMED RIGHT CDT XR JOINT INJECTION Routine 07/13/2010 11:32 AM Re sults for this INTERMED RIGHT CDT procedure are in the results section. XR JOINT INJECTION Routine 07/13/2010 11:32 AM INTERMED RIGHT CDT documented in this encounter Results X-ray Joint injection/aspiration intermediate (07/13/2010 11:33 AM CDT) Specimen (Source) Anatomical Collection Method Collection Time Re ceived Time Location / / Volume Laterality 07/13/2010 11:33 AM CDT Impressions RADIOLOGY RESULTS - 07/13/2010 2:39 PM C DT JOINT INJECT/ASP INTERMEDIATE ??Jul 13, 11:32:00 AM History: ??Left foot pain and osteoarthr itis. ?? PROCEDURE: The risks (including bleeding , infection, and allergy to contrast and medications) and benefits o f the procedure were explained to the patient and consent was obtained. ??Using sterile technique and fluoroscopic guidance, a #25 gauge needl e was placed into the bilateral second and third tarsometatars al joint using a dorsal approach. ??1 ml omnipaque 180 injected to confirm intraarticular location of the needle tip. ??40mg of Ke nalog and 1 mL Marcaine 0.5% were injected. ??No initial complication s. Fluoro: 1.32 minutes The patients pain level (0-10 scale) wer e as follows: PRE INJECTION ?? Right foot ?1 Left foot ? 1 POST INJECTION Right foot ?0 Left foot ? 0 IMPRESSION: ??Technically successful jane ateral second and third tarsometatarsal foot steroid/anesthetic injection with favorable initial pain relief. ??Long-term results pending. [place] DPM IMG DIAGNOSTIC IMAGING ORDER MICHELLE Performing Organization Address City/State/ZIP Code Phon e Number RADIOLOGY RESULTS X-ray Joint injection/aspiration intermediate (07/13/2010 11:32 AM CDT) Specimen (Source) Anatomical Collection Method Collection Time Re ceived Time Location / / Volume Laterality 07/13/2010 11:32 AM CDT Impressions RADIOLOGY RESULTS - 07/13/2010 2:39 PM C DT JOINT INJECT/ASP INTERMEDIATE ??Ar[place] 8, 2 011 11:32:00 AM History: ??Left foot pain and osteoarthr itis. ?? PROCEDURE: The risks (including bleeding , infection, and allergy to contrast and medications) and benefits o f the procedure were explained to the patient and consent was obtained. ??Using sterile technique and fluoroscopic guidance, a #25 gauge needl e was placed into the bilateral second and third tarsometatars al joint using a dorsal approach. ??1 ml omnipaque 180 injected to confirm intraarticular location of the needle tip. ??40mg of Ke nalog and 1 mL Marcaine 0.5% were injected. ??No initial complication s. Fluoro: 1.32 minutes The patients pain level (0-10 scale) wer e as follows: PRE INJECTION ?? Right foot ?1 Left foot ? 1 POST INJECTION Right foot ?0 Left foot ? 0 IMPRESSION: ??Technically successful jane ateral second and third tarsometatarsal foot steroid/anesthetic injection with favorable initial pain relief. ??Long-term results pending. [place] DPM IMG DIAGNOSTIC IMAGING ORDER MICHELLE Performing Organization Address City/State/ZIP Code Phon e Number RADIOLOGY RESULTS documented in this encounter Visit Diagnoses Not on filedocumented in this encounter Care Teams Live Study Manager Relationship Specialty Start Date End Date Nasir Velazquez MD PCP - General 02/18/99 10/06/13 [facility] [address] [place] [address] documented as of this encounter
--- OUTSIDE RECORDS SUMMARY | 2021-11-04 10:38 | XMS_ITS | Encounter Summary ---
:1945 Author Organization [place] Address [address] [facility] [place] [address] Care Team Providers Name Role Phone Nasir Velazquez MD Primary Care Provider [phone] Reason for Referral Referral not Required - Closed Specialty Diagnoses / Procedures Referred By Contact Refer red To Contact Diagnoses Hand pain Nasir Velazquez [facility] [address] [place] [address] [address] [facility] Phone: [phone] [place], [place] [address] Referral ID Status Reason Start Date Expiration Date Visits Requ ested Visits Authorized [id number] Closed 03/21/2012 09/17/2012 1 1 CONSULTANT Reason for Visit Reason Comments RECHECK right elbow. 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 documented as of this encounter Last Filed Vital Signs Vital Sign Reading Time Taken Comments Blood Pressure 137/84 03/21/2012 11:04 AM GIFT CONSULTANT Pulse 75 03/21/2012 11:04 AM GIFT CONSULTANT Temperature 36.7 ??C (98 ??F) 03/21/2012 11:04 AM GIFT CONSULTANT Respiratory Rate - - Oxygen Saturation 96% 03/21/2012 11:04 AM GIFT CONSULTANT Inhaled Oxygen Concentration - - Weight 93.1 kg (205 lb 3 oz) 03/21/2012 11:04 AM GIFT CONSULTANT Height 175.3 cm (5' 9) 03/21/2012 11:04 AM GIFT CONSULTANT Body Mass Index 30.3 03/21/2012 11:04 AM GIFT CONSULTANT documented in this encounter Patient Instructions Patient InstructionsNasir Velazquez MD - 03/21/2012 11:37 AM GIFT CONSULTANT If the elbow is not improving over the next several weeks (or worsening), call for referral to Sports Medicine or Orthopedics for drainage of the olecranon bursitis. For exercises: Stretching - do stretching exercises every day. Hold stretches for 15 seconds, then repeat x 5. Strengthening - do strengthening exercises every other day. Do exercises until muscle fatigue/burn. CONSULTANT documented in this encounter Progress Notes Nasir Velazquez MD - 03/30/2012 4:33 PM CST Terry Montero is a 66 year old male who presents for evaluation of: 1. olecranon bursitis - patient seen for olecranon bursitis 2 weeks ago. Has not resolved, however, he has not modified his activity, done exercises, or used elbow protection. He has no symptoms of erythema, warmth. Not painful or tender to palpation. Problems list, allergies, social and family history, and past medical history, are all reviewed and updated in [facility]. Current Outpatient Prescriptions Medication Sig ??? fluticasone (FLONASE) 50 MCG/ACT nasal spray [place] 1-2 sprays into both nostrils daily as neededfor rhinitis. ??? Glucosamine HCl 1000 MG TABS Take by mouth 2 times daily. ??? hydrochlorothiazide (HYDRODIURIL) 25 MG tablet Take 1 tablet by mouth daily. ??? omeprazole (PRILOSEC) 40 MG capsule Take 1 capsule by mouth daily. ??? doxazosin (CARDURA) 4 MG tablet Take 1 tablet by mouth At Bedtime. ??? simvastatin (ZOCOR) 40 MG tablet Take 0.5 tablets by mouth At Bedtime. ??? fish oil-omega-3 fatty acids (FISH OIL) 1000 MG capsule Take 1 capsule by mouth 2 times daily. ??? Multiple Vitamin (ONE-A-DAY MENS) TABS Take 1 tablet by mouth daily. OBJECTIVE: BP 137/84 Pulse 75 Temp(Src) 98 ??F (36.7 ??C) (Oral) Ht 5' 9 (1.753 m) Wt 205 lb 3 oz (93.072 kg) BMI 30.30 kg/m2 SpO2 96% GENERAL APPEARANCE: healthy, alert and no distress CV: regular rate and rhythm, normal S1 S2. no murmur, rub or gallop. RESP: Chest is clear, no wheezing or rales. MSK: olecranon bursitis over right elbow. No erythema, warmth. Nontender. Assessment/Plan: Olecranon bursitis (primary encounter diagnosis) Comment: Plan: recommended he start conservative cares, if still no improvement then referral to Sports Medicine or Orthopedics for drainage. Chronic rhinitis Comment: Plan: fluticasone (FLONASE) 50 MCG/ACT nasal spray well controlled, continue current regimen. Hand pain Comment: Plan: ORTHO ULTIMATE HOOPS REFEREE REFERRAL Ongoing issues with hand arthritis. patient saw Dr. Brizuela who recommended conservative therapy including NSAIDs and Physical Therapy. patient did not have relief with the therapy and would like a second opinion. Screening for AAA (abdominal aortic aneurysm) Comment: Plan: US abdominal aorta limited patient requested screening for AAA. Patient Instructions If the elbow is not improving over the next several weeks (or worsening), call for referral to Sports Medicine or Orthopedics for drainage of the olecranon bursitis. For exercises: Stretching - do stretching exercises every day. Hold stretches for 15 seconds, then repeat x 5. Strengthening - do strengthening exercises every other day. Do exercises until muscle fatigue/burn. CONSULTANT documented in this encounter Nursing Notes 03/21/2012 11:00 AM CST >> [facility] Mar 21, 2012 11:08 AM Patient presents with: RECHECK - right elbow. Initial BP 137/84 Pulse 75 Temp(Src) 98 ??F (36.7 ??C) (Oral) Ht 5' 9 (1.753 m) Wt 205 lb 3oz (93.072 kg) BMI 30.30 kg/m2 SpO2 96% Estimated Body mass index is 30.30 kg/(m^2) as calculated from the following: Height as of this encounter: 5' 9(1.753 m). Weight as of this encounter: 205 lb 3 oz(93.072 kg).. BP completed using cuff size: large Health maintenance- up to date [place] MINDY documented in this encounter Plan of Treatment Pending Results Name Type Priority Associated Diagnoses Date/Ti dc ORTHO ULTIMATE HOOPS REFEREE REFERRAL Referral Routine Hand pain 08/2012 documented as of this encounter Visit Diagnoses Diagnosis Olecranon bursitis - Primary Chronic rhinitis Hand pain Pain in limb Screening for AAA (abdominal aortic aneu rysm) Screening for other and unspecified card iovascular conditions documented in this encounter Care Teams Bariatric Coordinator Relationship Specialty Start Date End Date Nasir Velazquez MD PCP - General 02/18/99 10/06/13 [facility] [address] [place] [address] documented as of this encounter
--- OUTSIDE RECORDS SUMMARY | 2021-11-04 10:38 | XMS_ITS | Encounter Summary ---
:1945 Author Organization [place] Address [facility] 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 Velazquez today. Advised he was full and offered appt tomorrow pt asked if there was another MD he could see today What if it is infected, How will I know? Advised would have a fever and pain in that area with redness and heat to the area. Pt said no just a fluid sac Appt at 4:[address] Deras. Poly Ibrahim, RN. NESS DIRECTOR documented in this encounter Plan of Treatment Not on filedocumented as of this encounter Visit Diagnoses Not on filedocumented in this encounter Care Teams Audiology Assistant Relationship Specialty Start Date End Date Nasir Velazquez MD PCP - General 02/18/99 10/06/13 [place] [id number] [place] [address] documented as of this encounter
--- OUTSIDE RECORDS SUMMARY | 2021-11-04 10:38 | XMS_ITS | Encounter Summary ---
:1945 Author Organization [place] Address [address] [facility] [place] [address] Care Team Providers Name Role Phone Nasir Velazquez MD Primary Care Provider Reason for Visit Reason Comments Musculoskeletal Problem bilateral foot pain. pt had injections at [facility] November of 2008. Encounter Details Date Type Department Care Team Description 07/01/2010 Office Visit [facility] [place] (Primary Dx); Ludivina Ward DPM Pain in soft tissues of limb [address] [facility] [place] [address] E [phone] 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 Most painful upon rising in a.m. or after prolonged sitting. Denies history of recent trauma. Has tried changing shoewear and OTC inserts without much success. Pain persisitng over the past several yrs and significant pain reduction w/ pastinjection under image intensification @ [facility]. Pt is requesting a re-peat of injections. 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 Sensation to light touch is intact. Muscle strength and ROM is within normal limits. No sign of ulceration, infection, or drainage noted. Upon weightbearing there is an increase in the medial longitudinal arch. Pain upon palpation to the 2nd/3rd tarsometatarsal joints rt foot. X-rays were reviewed which show joint space narrowing and multiple osteophytes dorsally. 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 Recommended modifying activities, supportive shoes, ice, stretching, and not going barefoot. Schedule fluro guided injection 2nd/3rd TMTjoint w/ [facility]. Also discussed if injection fail to improve symptoms, pt may require surgical arthrodesis. documented in this encounter Nursing Notes 07/01/2010 11:15 AM CDT >> ANGELIA GRAFF SunJuly 01, 2010 11:35 AM Patient presents with: Musculoskeletal Problem - bilateral foot pain. pt had injections at [facility]. November of 2008. Initial BP 142/90 Estimated Body mass index is 28.81 kg/(m^2) as calculated from the following: Height as of 04/30/09: 5' 8.5(1.74 m). Weight as of 04/30/09: 192 lb 4 oz(87.204 kg). bp completed using cuff size: large right Angelia Graff CMA documented in this encounter Plan of Treatment Not on filedocumented as of this encounter Visit Diagnoses Diagnosis Arthralgia - Primary Pain in joint, site unspecified Pain in limb documented in this encounter Care Teams Ios Software Engineer Relationship Specialty Start Date End Date Nasir Velazquez MD PCP - General 02/18/99 10/06/[address] [address] documented as of this encounter
--- OUTSIDE RECORDS SUMMARY | 2021-11-04 10:38 | XMS_ITS | Encounter Summary ---
:1945 Author Organization [place] Address [facility] 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 KALA: 06/06/2011 Poly Ibrahim RN BP Readings from Last 1 Encounters: 06/14/11 135/84 -Encounter/OV: every 12 months -Max RF's until next office visit related to diagnosis: 12 months Category: Urinary Medications/BPH documented in this encounter Plan of Treatment Not on filedocumented as of this encounter Visit Diagnoses Diagnosis HYPERTROPHY of PROSTATE - Primary Hypertrophy of prostate without urinary obstruction and other lower urinary tract symptoms (LUTS) documented in this encounter Care Teams It Training Specialist Relationship Specialty Start Date End Date Nasir Velazquez MD PCP - General 02/18/99 10/06/13 [facility] [address] [place] [address] documented as of this encounter
--- OUTSIDE RECORDS SUMMARY | 2021-11-04 10:38 | XMS_ITS | Encounter Summary ---
:1945 Author Organization [place] Address [facility]. 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 documented as of this encounter Miscellaneous Notes Telephone Encounter - Janny Loya - 09/28/2011 10:00 AM CDT RF request for Cardura Ok per RN Protocol x 9 mos KALA 06/06/11 Janny Loya RN BP Readings from Last 1 Encounters: 06/14/11 135/84 Potassium Date Value Range Status 06/06/2011 3.9 3.4 - 5.3 mmol/L Final ] Creatinine Date Value Range Status 06/06/2011 1.02 0.66 - 1.25 mg/dL Final ] -OV every 6 months (review last provider visit notes) -BP <140/90 for Diabetics -BP <130/80 for Vascular Disease -K+ or Basic Metabolic, Creatinine every 6 months & after dosage change -Re-check BP 1-2 months after dosage change -If patient has diagnosis of BPH, may refill every 12 months Category: Hypertension/Alpha Blockers RF request for Hydrochlorothiazide Ok per RN Protocol x 9 mos Potassium Date Value Range Status 06/06/2011 3.9 3.4 - 5.3 mmol/L Final ] Creatinine Date Value Range Status 06/06/2011 1.02 0.66 - 1.25 mg/dL Final ] -OV every 6 months (review last provider visit notes) -BP <140/90 for Diabetics -BP <130/80 for Vascular Disease -K+ or Basic Metabolic, Creatinine every 6 months & after dosage change -Re-check BP 1-2 months after dosage change Category: Hypertension/Diuretics RF request for omeprazole Ok per RN protocol x 9 mos. -Encounter/OV: every 12 months -Max RF's until next office visit related to diagnosis: every 12 months Category: Gastrointestinal/Proton Pump Inhibitors Telephone Encounter - Martha Dias - 09/27/2011 2:21 PM CDT Refill request for: hydrochlorothiazide (HYDRODIURIL) 25 MG tablet 90 tablet 4 08/11/2010 Sig: Take 1 tablet by mouth daily. Class: Fax Route: Oral And Last fill: 08/11/2010 omeprazole (PRILOSEC) 40 MG capsule 90 capsule 4 08/11/2010 Sig: Take 1 capsule by mouth daily. Class:Fax Route: Oral Last refill: 08/11/2010 And doxazosin (CARDURA) 4 MG tablet 90 tablet 2 08/24/2011 Sig: Take 1 tablet by mouth At Bedtime. Class:Fax Route: Oral Last refill: 08/24/2011 Can you refill? Last OV:06/06/2011 Martha Dias Safety Spec Telephone Encounter - Martha Dias - 09/27/2011 2:20 PM CDT Message from Paktor: Original authorizing provider: MD Terry Grubbs would like a refill of the following medications: hydrochlorothiazide (HYDRODIURIL) 25 MG tablet [Nasir Velazquez MD] omeprazole (PRILOSEC) 40 MG capsule [Nasir Velazquez MD] doxazosin (CARDURA) 4 MG tablet [Nasir Velazquez MD] Preferred pharmacy: [facility] Comment: documented in this encounter Plan of Treatment Not on filedocumented as of this encounter Visit Diagnoses Diagnosis Hypertension goal BP (blood pressure) < 140/90 Unspecified essential hypertension Esophageal reflux HYPERTROPHY of PROSTATE Hypertrophy of prostate without urinary obstruction and other lower urinary tract symptoms (LUTS) documented in this encounter Care Teams Admitting Manager Relationship Specialty Start Date End Date Nasir Velazquez MD PCP - General 02/18/99 10/06/13 [facility] [address] [place] [address] documented as of this encounter
--- OUTSIDE RECORDS SUMMARY | 2021-11-04 10:38 | XMS_ITS | Encounter Summary ---
:1945 Author Organization [place] Address [address] [place] [address] Care Team Providers Name Role Phone Nasir Velazquez MD Primary Care Provider [phone] Reason for Visit SOTO Physical Therapy (Routine) - Closed Specialty Diagnoses / Procedures Referred By Contact Refer red To Contact Tony Brizuela MD [facility] [address] [facility] [address] [facility] [address] [place], [place] [phone] [place] [address] Phone: Fax: Referral ID Status Reason Start Date Expiration Date Visits V isits Requested Authorized SOTO/HP/SPINE Closed 02/12/2012 02/04/2013 20 18 Encounter Details Date Type Department Care Team Description 04/17/2012 Therapy Visit [facility] Vernon Steel, LBP ( low back pain) Rehabilitation Services PT (Primary Dx) [address] ATHLETIC MEDICINE [place], [place] [id number] [place] [address] [place], [place] [phone] Social History Tobacco Use Types Packs/Day [...] at Date Recorded 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 SUBJECTIVE Subjective changes noted by patient: Carlos reports no LBP presently. He does feel a weakness in his back occasionally, but is otherwise painfree and doing well. Current pain level is Current Pain level: 0/10. Previous pain level was Initial Pain level: 9/10. Changes in function: Yes (See Goal flowsheet attached for changes in current functional level) Adverse reaction to treatment or activity: None OBJECTIVE Changes noted in objective findings: Full ROM of the back without pain. ASSESSMENT/PLAN Updated problem list and treatment plan: Diagnosis 1: LBP STG/LTGs have been met or progress has been made towards goals: Yes (See Goal flow sheet completed today.) Assessment of Progress: The patient's condition is improving. Self Management Plans: Patient has been instructed [...] 1:1 timed codes. documented in this encounter Plan of Treatment Not on filedocumented as of this encounter Procedures Procedure Name Priority Date/Time Associated Diagnosis Comme [facility] THERAPEUTIC Routine 04/17/2012 2:44 PM CDT LBP (low back p ain) EXERCISES documented in this encounter Visit Diagnoses Diagnosis LBP (low back pain) - Primary Lumbago documented in this encounter Care Teams Biometrics Instructor Relationship Specialty Start Date End Date Nasir Velazquez MD PCP - General 02/18/99 10/06/13 [facility] [address] [place] [address] documented as of this encounter
--- OUTSIDE RECORDS SUMMARY | 2021-11-04 10:38 | XMS_ITS | Encounter Summary ---
:1945 Author Organization [place] Address [address] [facility] 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 documented as of this encounter Last Filed Vital Signs Vital Sign Reading Time Taken Comments Blood Pressure 130/86 03/05/2012 3:52 PM UNLOADER OPERATOR Pulse 75 03/05/2012 3:52 PM UNLOADER OPERATOR Temperature 37.2 ??C (98.9 ??F) 03/05/2012 3:52 PM UNLOADER OPERATOR Respiratory Rate - - Oxygen Saturation 96% 03/05/2012 3:52 PM UNLOADER OPERATOR Inhaled Oxygen Concentration - - Weight 92.1 kg (203 lb) 03/05/2012 3:52 PM UNLOADER OPERATOR Height 175.3 cm (5' 9) 03/05/2012 3:52 PM UNLOADER OPERATOR Body Mass Index 29.98 03/05/2012 3:52 PM UNLOADER OPERATOR documented in this encounter Progress Notes Raghavendra Deras MD - 03/05/2012 4:05 PM CST SUBJECTIVE: Terry Montero is a 66 year old male presenting for Elbow Pain Patient concerned of right elbow swelling over the past few hours. Denies any pain, redness, warmth.Swelling over the olecranon process. Denies any fever, sweats or chills. Denies any repetitive trauma. No history of gout but states his father has had gout and patient has had history of foot pain requiring injections. His foot pain is consistent with arthritis on x-ray, however. Patient reports that he quit smoking about 28 years ago. He has never used smokeless tobacco. Past medical and surgical history reviewed. Patient Active Problem List Diagnosis ??? Actinic keratosis ??? ALLERGIC RHINITIS NOS ??? HYPERTROPHY of PROSTATE ??? ESOPHAGEAL REFLUX ??? SCC (Squamous Cell Carcinoma), Face ??? MORENITA (Obstructive Sleep Apnea) ? ? HYPERLIPIDEMIA LDL GOAL <130 ??? History of peptic ulcer disease ? ? Hypertension goal BP (blood pressure) < 140/90 ??? Advanced directives, counseling/discussion Allergies Allergen Reactions ??? Mometasone Furoate Monohydrate gets bloody noses from Nasonex ??? Quinazolines get bloody noses from Flomax Review of systems: As above otherwise negative OBJECTIVE: BP 130/86 Pulse 75 Temp(Src) 98.9 ??F (37.2 ??C) (Oral) Ht 5' 9 (1.753 m) Wt 203 lb (92.08 kg) BMI 29.98 kg/m2 SpO2 96% GENERAL APPEARANCE: healthy, alert, no distress MS: Right elbow with significant swelling over olecranon process, non-tender, no warmth, no erythema, normal range of motion SKIN: Skin without any erythema ASSESSMENT/PLAN: Olecranon bursitis (primary encounter diagnosis) Comment: Plan: Discussed conservative management initially as this just occurred for him. Continue to watch for warmth, redness, or other signs of infection. Return if not improving with ice, NSAIDs, protectingelbow with an elbow pad. Return for aspiration and consideration of steroid injection if not improving. Consider testing for gout if not improving. ADER OPERATOR documented in this encounter Nursing Notes 03/05/2012 4:30 PM CST >> ALEXANDRIA GARCIA Zara Mar 05, 2012 3:55 PM Patient presents with: Elbow Pain - right elbow pain, appears has fluid Initial BP 130/86 Pulse 75 Temp(Src) 98.9 ??F (37.2 ??C) (Oral) Ht 5' 9 (1.753 m) Wt 203 lb(92.08 kg) BMI 29.98 kg/m2 SpO2 96% Estimated Body mass index is 29.98 kg/(m^2) as calculated from the following: Height as of this encounter: 5' 9(1.753 m). Weight as of this encounter: 203 lb(92.08 kg).. BP completed using cuff size: large Alexandria Garcia REAL ESTATE OFFICER documented in this encounter Plan of Treatment Not on filedocumented as of this encounter Visit Diagnoses Diagnosis Olecranon bursitis - Primary documented in this encounter Care Teams Mold Filler And Drainer Relationship Specialty Start Date End Date Nasir Velazquez MD PCP - General 02/18/99 10/06/13 [facility] [address] [place] [address] documented as of this encounter
--- OUTSIDE RECORDS SUMMARY | 2021-11-04 10:38 | XMS_ITS | Encounter Summary ---
:1945 Author Organization [place] Address [address] [facility] [place] [address] Care Team Providers Name Role Phone Nasir Velazquez MD Primary Care Provider [phone] Reason for Referral - Closed Specialty Diagnoses / Procedures Referred By Contact Refer red To Contact Diagnoses Hand pain Nasir Velazquez MD [facility] [address] [place], [place] [address] Referral ID Status Reason Start Date Expiration Date Visits Requ ested Visits Authorized [id number] Closed 06/06/2011 12/03/2011 1 1 Reason for Visit Reason Comments Physical pt is fasting for labs. Encounter Details Date Type Department Care Team Description 06/06/2011 Office Visit [facility] Nasir Velazquez general medical examination at a health care facility (Primary Dx); Clinic Candy Chow MD Hand pain; [address] [facility] [address] Chronic rhinitis; [place], [place] CLINIC SCC (squamous cell carcinoma), face; [id number] [address] MORENITA (obstructive sleep apnea ); [phone] Hyperlipidemia LDL goal <130; [place], [place] Hypertensi on goal BP (blood pressure) < 140/90; [id number] Screening for AAA (abdominal aortic aneu rysm) Social History Tobacco Use Types Packs/Day Years [...] at Date Recorded 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 documented as of this encounter Last Filed Vital Signs Vital Sign Reading Time Taken Comments Blood Pressure 116/76 06/06/2011 10:37 AM CDT Pulse 71 06/06/2011 10:37 AM CDT Temperature 37.5 ??C (99.5 ??F) 06/06/2011 10:37 AM CDT Respiratory Rate - - Oxygen Saturation 95% 06/06/2011 10:37 AM CDT Inhaled Oxygen Concentration - - Weight 89 kg (196 lb 5 oz) 06/06/2011 10:37 AM CDT Height 174.6 cm (5' 8.75) 06/06/2011 10:37 AM CDT Body Mass Index 29.2 06/06/2011 10:37 AM CDT documented in this encounter Patient Instructions Patient InstructionsPhoenix Dubois - 06/06/2011 10:43 AM CDT PREVENTIVE HEALTH RECOMMENDATIONS: Have a colonoscopy every 10 years, or have a yearly FIT test (stool test). These exams will check for colon cancer. Have a cholesterol test every 5 years, or more frequently if you are at risk for high cholesterol/heart disease. Have a diabetes test (fasting glucose) every three years. If you are at risk for diabetes, you should have this test more often. Talk with your health care provider about whether or not a prostate cancer screening test (PSA) is right for you. Vaccines: Get a flu shot each year. Get a tetanus shot every 10 years. Get a one-time shot to prevent pneumonia (Pneumovax). Talk to your doctor about a shingles vaccine. Eat at least 5 servings of fruits and vegetables daily. Eat whole-grain bread, whole-wheat pasta and brown rice instead of white grains and rice. For bone health: Eat calcium-rich foods or take calcium pills (500 to 600 mg) twice a day with food.Also take vitamin D (1000 IUs) each day. Exercise for at least 150 minutes a week (an average of 30 minutes a day, 5 days of the week). This will help you control your weight and prevent disease. Limit alcohol to one drink per day. No smoking. Wear sunscreen to prevent skin cancer. See your dentist twice a year for an exam and cleaning. See your eye doctor ever 1 to 2 years. documented in this encounter Progress Notes Nasir Velazquez MD - 06/06/2011 10:43 AM CDT SUBJECTIVE: CC: Terry Montero is an 66 year old male who presents for preventative health visit. Besides routine health maintenance, he would like to discuss 1. foot injections. Has had 2 previous injections - has an upcoming appointment with Dr. Martinez. 2. Left hand pain. Had trigger finger and tendon sheath surgery 3. Sinus problems a lot.. nasal congestion every morning. Year round. Tried nasal steroids and had nosebleeds. Healthy Habits: Do you get at least three servings of dairy daily (milk, cheese, yogurt, etc.)? yes Outside of work or daily activities, how many days per week do you exercise for 30 minutes or longer? 0 Dietary Guidelines for Americans, 2010 USDA's MyPlate Estimated Body mass index is 29.20 kg/(m^2) as calculated from the following: Height as of this encounter: 5' 8.75(1.746 m). Weight as of this encounter: 196 lb 5 oz(89.047 kg). Have you had an eye exam in the past two years? yes Do you see a dentist twice per year? yes Staff Signature Phoenix Dubois CMA Today's PHQ-2 Score: 0 Abuse: Current or Past(Physical, Sexual or Emotional)- No Do you feel safe in your environment - Yes History Substance Use Topics ??? Smoking status: Former Smoker Quit date: 02/06/1984 ??? Smokeless tobacco: Never Used ??? Alcohol Use: 1.0 oz/week moderate The patient does not drink >3 drinks per day nor >7 drinks per week. Last PSA: [place] PSA Date Value Range Status 12/31/2002 0.4 <0R=4.0- (NG/ML) Final PSA VALUES FROM DIFFERENT ASSAY METHODS CANNOT BE USED INTERCHANGEABLY. THIS ASSAY WAS PERFORMED USING THE COREY CHEMILUMINESCENT METHOD. PSA Date Value Range Status 06/30/2010 0.59 0-4 (ug/L) Final Last lipid profile: Total Cholesterol: Cholesterol Date Value Range Status 06/30/2010 164 0-200 (mg/dL) Final LDL Cholesterol is the primary guide to therapy. The NCEP recommends further evaluation of: patients with cholesterol greater than 200 mg/dL if additional risk factors are present, cholesterol greater than 240 mg/dL, triglycerides greater than 150 mg/dL, or HDL less than 40 mg/dL. LDL Cholesterol: LDL Cholesterol Calculated Date Value Range Status 06/30/2010 87 0-129 (mg/dL) Final LDL Cholesterol is the primary guide to therapy: LDL-cholesterol goal in high risk patients is <100 mg/dL and in very high risk patients is <70 mg/dL. HDL Cholesterol: HDL Cholesterol Date Value Range Status 06/30/2010 40 40-110 (mg/dL) Final Reviewed orders with patient. Reviewed health maintenance and updated orders accordingly - Yes Staff Signature Phoenix Dubois CMA All Histories reviewed and updated in [facility]. ROS: C: NEGATIVE for fever, chills, change [...] decreased urinary stream, erectile dysfunction, urethral discharge MUSCULOSKELETAL:left hand and thumb joint pain. Neck pain and stiffness. N: NEGATIVE for weakness, dizziness or paresthesias P: NEGATIVE for changes in mood or affect OBJECTIVE: BP 116/76 Pulse 71 Temp(Src) 99.5 ??F (37.5 ??C) (Oral) Ht 5' 8.75 (1.746 m) Wt 196 lb 5 oz(89.047 kg) BMI 29.20 kg/m2 SpO2 95% GENERAL APPEARANCE: health, alert and no distress [...] no masses and bowel sounds normal (male): deferred at patient request after discussing advantages/disadvantages of prostate cancer screening MS: no musculoskeletal defects are noted and gait is age appropriate without ataxia SKIN: no suspicious lesions or rashes NEURO: Normal strength and tone, sensory exam grossly normal, mentation intact and speech normal PSYCH: mentation appears normal and affect normal/bright ATP III Guidelines FRAX Risk Assessment ICSI Preventive Guidelines ASSESSMENT/PLAN: V70.0 Routine general medical examination at a health care facility (primary encounter diagnosis) Comment: Plan: Discussed diet and aerobic exercise. See other preventative health recommendations in orders. AAA screening ordered. 729.5AD Hand pain Comment: Plan: ORTHO LOTUS NOTES DEVELOPER REFERRAL Referral to hand orthopedics for further evaluation and management. We also discussed options for next pain management. I suspect that he has some neck arthritis as well as muscle spasm. I recommended physical therapy, he'll contact the clinic if he decides to pursue this. 472.0 Chronic rhinitis Comment: Plan: fluticasone (FLONASE) 50 MCG/ACT nasal spray Trial of fluticasone nasal spray. Patient did have problems with nosebleeds with Nasonex in the past. If this does not fix his problem or if he develops nosebleeds, I would have him see Otolaryngology 173.32B SCC (squamous cell carcinoma), face Comment: Plan: patient has followup with dermatology scheduled for tomorrow. 327.23H MORENITA (obstructive sleep apnea) Comment: Plan: patient does not use his CPAP machine, however, he has changed his sleeping position to side sleeping and does not feel he has continued issues. He has no daytime fatigue and his snoring has diminished. We did discuss alternative options for sleep apnea treatment. He will contact the clinic if he wishes to pursue further evaluation 272.4CK Hyperlipidemia LDL goal <130 Comment: Plan: Lipid panel reflex to direct LDL Recent Labs Lab Test 06/30/10 0901 06/30/09 1021 ??? CHOL 164 185 ??? HDL 40 35* ??? LDL 87 108 ??? TRIG 187* 212* ??? CHOLHDLRATIO 4.2 5.3* I will contact the patient regarding his results and determine the follow up plan at that time. 401.9BS Hypertension goal BP (blood pressure) < 140/90 Comment: Plan: CBC with platelets, Lipid panel reflex to direct LDL, Basic metabolic panel, Microalbumin quantitative random urine well controlled, continue current regimen. Counseling: Consider AAA screening for ages 65-75 and smoking history regular exercise healthy diet/nutrition vision screening hearing screening prostate cancer screening reports that he quit smoking about 27 years ago. He has never used smokeless tobacco. Body mass index is 29.20 kg/(m^2). Weight management plan: Current exercise routine: no regular exercise. Established an exercise regimen with the patient. and Diet regimen was discussed. self-directed dieting documented in this encounter Nursing Notes 06/06/2011 10:30 AM CDT >> PHOENIX Zuñiga June 06, 2011 10:43 AM Patient presents with: Physical - pt is fasting for labs. Initial BP 116/76 Pulse 71 Temp(Src) 99.5 ??F (37.5 ??C) (Oral) Ht 5' 8.75 (1.746 m) Wt 196lb 5 oz (89.047 kg) BMI 29.20 kg/m2 SpO2 95% Estimated Body mass index is 29.20 kg/(m^2) as calculated from the following: Height as of this encounter: 5' 8.75(1.746 m). Weight as of this encounter: 196 lb 5 oz(89.047 kg).. BP completed using cuff size: large Health maintenance- labs today. Phoenix Dubois CMA documented in this encounter Plan of Treatment Not on filedocumented as of this encounter Procedures Procedure Name Priority Date/Time Associated Diagnosis Comme nts ALBUMIN RANDOM URINE Routine 06/06/2011 11:20 Hypertension goa l BP Results for this QUANTITATIVE AM CDT (blood pressure) < procedure are in 140/90 the results section. LIPID REFLEX TO Routine 06/06/2011 11:15 Hyperlipidemia LDL Re sults for this DIRECT LDL PANEL AM CDT goal <130 procedure are in Hypertension goal BP the res ults (blood pressure) < section. 140/90 BASIC METABOLIC Routine 06/06/2011 11:15 Hypertension goal BP Results for this PANEL AM CDT (blood pressure) < procedure are in 140/90 the results section. CBC WITH PLATELETS Routine 06/06/2011 11:15 Hypertension goal BP Results for this AM CDT (blood pressure) < procedure are in 140/90 the results section. documented in this encounter Results Microalbumin quantitative random urine (06/06/2011 11:20 AM CDT) Component Value Ref Test Analysis Performed At Patholo gist Range Method Time Signature Creatinine 196 mg/dL [facility] Urine [facility] Albumin Urine <5 mg/L [facility] mg/L Urine Microalbumin lowest re portable value has been changed from 2 mg/L to 5 [facility] mg/L due to a methodology change on May. [facility] Albumin Urine Unable to 0 - 17 [facility] mg/g Cr calculate mg/g Cr [facility] Specimen Anatomical Collection Method Collection Time Receive d Time (Source) Location / / Volume Laterality Urine specimen 06/06/2011 11:20 2 (specimen) AM CDT 11:22 AM CDT Nasir Velazquez MD LAB - URINE ORDERABLES Performing Organization Address City/State/ZIP Code Phon e Number [facility] [address] [place], [place] [id number] [place] [address] LABS Basic metabolic panel (06/06/2011 11:15 AM CDT) P athologist Signature Sodium 142 133 - 144 [facility] [place] mmol/L CLINIC LAB Potassium 3.9 3.4 - 5.3 [facility] [place] mmol/L CL[facility]IC LAB Chloride 102 94 - 109 [facility] [place] mmol/L CLINIC LAB Carbon Dioxide 26 20 - 32 [facility] [place] mmol/L [facility]IC LAB Anion Gap 14 6 - 17 [facility] [place] mmol/L [facility]IC LAB Glucose 97 60 - 99 [facility] [place] mg/dL CLINIC LAB Urea Nitrogen 16 7 - 30 [facility] [place] mg/dL [facility] Creatinine 1.02 0.66 - [facility] 1.25 mg/dL CLINIC LAB GFR Estimate 73 >60 [facility] [place] mL/min/1.7 CLINIC LAB m2 GFR Estimate If 88 >60 [facility] Black mL/min/1.7 CLINIC LAB m2 Calcium 9.6 8.5 - 10.4 [facility] mg/dL CLINIC LAB Specimen Anatomical Collection Method Collection Time Receive d Time (Source) Location / / Volume Laterality Blood specimen 06/06/2011 11:15 2 (specimen) AM CDT 11:18 AM CDT Nasir Velazquez MD LAB - BLOOD ORDERABLES Performing Organization Address City/State/ZIP Code Phon e Number [facility] [address] [place] [address] [facility] (ABNORMAL) Lipid panel reflex to direct LDL (06/06/2011 11:15 AM CDT) athologist Signature Cholesterol 187 0 - 200 [facility] mg/dL CLINIC LAB Comment: LDL Cholesterol is the primary guide to therapy. The NCEP recommends further evaluation of: patients with cholesterol greater than 200 mg/dL if additional risk facto rs are present, cholesterol greater than 240 mg/dL, triglycerides greater than 1 50 mg/dL, or HDL less than 40 mg/dL. Triglycerides 232 (H) 0 - 150 mg/dL [facility] HDL Cholesterol 43 40 - 110 mg/dL [facility] LDL Cholesterol Calculated 98 0 - 129 mg/dL [facility] Comment: LDL Cholesterol is the primary guide to therapy: LDL-cholesterol goal in high risk patients is <100 mg/dL and in very high risk patients is <70 mg/dL. VLDL-Cholesterol 46 (H) 0 - 30 mg/dL [facility] Cholesterol/HDL Ratio 4.3 0.0 - 5.0 [facility] Specimen Anatomical Collection Method Collection Time Receive d Time (Source) Location / / Volume Laterality Blood specimen 06/06/2011 11:15 2 (specimen) AM CDT 11:18 AM CDT Nasir Velazquez MD LAB - BLOOD ORDERABLES Performing Organization Address City/[facility]/ZIP Code Phon e Number [facility] [address] [place] [address] [facility] (ABNORMAL) CBC with platelets (06/06/2011 11:15 AM CDT) Analysis Performed At Patho logist Time Signature WBC 5.6 4.0 - 11.0 [place] [facility] 10e9/L [facility] RBC Count 4.45 4.4 - 5.9 [place] 10e12/L [facility] Hemoglobin 12.9 (L) 13.3 - [facility] 17.7 g/dL [facility] Hematocrit 37.5 (L) 40.0 - [facility] 53.0 % [facility] MCV 84 78 - 100 [facility] MCH 29.0 26.5 - [place] [facility] 33.0 pg [facility] MCHC 34.4 31.5 - [facility] 36.5 g/dL [facility] RDW 12.9 10.0 - [place] [facility] 15.0 % [facility] Platelet Count 155 150 - 450 [place] 10e9/L [facility] Specimen Anatomical Collection Method Collection Time Receive d Time (Source) Location / / Volume Laterality Blood specimen 06/06/2011 11:15 2 (specimen) AM CDT 11:18 AM CDT Nasir Velazquez MD LAB - BLOOD ORDERABLES Performing Organization Address City/[facility]/ZIP Code Phon e Number [facility] [address] [place] [address] [facility] documented in this encounter Visit Diagnoses Diagnosis Routine general medical examination at a health care facility - Primary Hand pain Pain in limb Chronic rhinitis SCC (squamous cell carcinoma), face Squamous cell carcinoma of skin of other and unspecified parts of face MORENITA (obstructive sleep apnea) Obstructive sleep apnea (adult) (pediatr ic) Hyperlipidemia LDL goal <130 Other and unspecified hyperlipidemia Hypertension goal BP (blood pressure) < 140/90 Unspecified essential hypertension Screening for AAA (abdominal aortic aneu rysm) Screening for other and unspecified card iovascular conditions documented in this encounter Care Teams Flat Locker Relationship Specialty Start Date End Date Nasir Velazquez MD PCP - General 02/18/99 10/06/13 [facility] [address] [place] [address] documented as of this encounter
--- OUTSIDE RECORDS SUMMARY | 2021-11-04 10:38 | XMS_ITS | Encounter Summary ---
:1945 Author Organization [place] Address [facility] 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 documented in this encounter Results US abdominal aorta limited (03/26/2012 9:53 AM VARNISHER) Anatomical Region Laterality Modality Abdomen/Pelvis Other Specimen (Source) Anatomical Collection Method Collection Time Re ceived Time Location / / Volume Laterality 03/26/2012 9:53 AM VARNISHER Impressions 03/26/2012 11:34 AM VARNISHER IMPRESSION: Normal caliber abdominal aorta and common iliac arteries. No evidence of aneurysm. KEITH BOWERS MD Narrative 03/26/2012 11:34 AM VARNISHER ULTRASOUND AORTIC IMAGING ??03/26/2012 9: 53 AM HISTORY: ??Screening for abdominal aorti c aneurysm. FINDINGS: The abdominal aorta is of norm al caliber. The maximal suprarenal aorta diameter is 2.8 cm. The maximal infrarenal aortic diameter is 2.5 cm. The common iliac art eries are normal bilaterally measuring 1.3 cm on the right and 1.1 cm on the left. Procedure Note Keith Bowers MD - 03/26/2012Formatti ng of this note might be different from the original. ULTRASOUND AORTIC IMAGING 03/26/2012 9:53 AM HISTORY: Screening for abdominal aortic aneurysm. FINDINGS: The abdominal aorta is of norm al caliber. The maximal suprarenal aorta diameter is 2.8 cm. The maximal infrarenal aortic diameter is 2.5 cm. The common iliac art eries are normal bilaterally measuring 1.3 cm on the right and 1.1 cm on the left. IMPRESSION IMPRESSION: Normal caliber abdominal aor ta and common iliac arteries. No evidence of aneurysm. KEITH BOWERS MD Nasir Velazquez MD IMG US ORDERABLES documented in this encounter Visit Diagnoses Not on filedocumented in this encounter Care Teams Scallop Binder Relationship Specialty Start Date End Date Nasir Velazquez MD PCP - General 02/18/99 10/06/13 [place] [address] [place] [address] documented as of this encounter
--- OUTSIDE RECORDS SUMMARY | 2021-11-04 10:38 | XMS_ITS | Encounter Summary ---
:1945 Author Organization [place] Address [facility] [place] [address] Care Team Providers Name Role Phone Nasir Velazquez MD Primary Care Provider Reason for Visit (Routine) - Closed Specialty Diagnoses / Procedures Referred By Contact Refer red To Contact Radiology Diagnoses US AORTIC IMAGING Procedure Notes: Screening for abdominal aortic aneurysm. 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 without urinary obstruction and other lower urinary tract symptoms (LUTS) fish oil-omega-3 fatty Take 1 capsule 180 capsule 4 08/12/19 11 01/10/2013 acids (FISH OIL) 1000 MG by mouth 2 times capsuleIndications: daily. Hyperlipidemia LDL goal <130 fluticasone (FLONASE) 50 [place] 1-2 sprays 1 Package 3 03/2101/10/2013 MCG/ACT nasal into both sprayIndications: Chronic nostrils daily rhinitis as needed for rhinitis. Glucosamine HCl 1000 MG Take by mouth 2 0 01/15/2013 TABS times daily. hydrochlorothiazide Take 1 tablet by 90 tablet 3 09/27/2011 08/07/2012 (HYDRODIURIL) 25 MG mouth daily. tabletIndications: Hypertension goal BP (blood pressure) < 140/90 Multiple Vitamin (ONE-A-DAY Take 1 tablet by 30 tablet 11 01/10/2013 MENS) TABSIndications: mouth daily. Preventative health care omeprazole (PRILOSEC) 40 MG Take 1 capsule 90 capsule 3 09/0608/07/2012 capsuleIndications: by mouth daily. Esophageal reflux simvastatin (ZOCOR) 40 MG Take 0.5 tablets 45 tablet 2 08/0505/28/2012 tabletIndications: by mouth At Hyperlipidemia LDL goal Bedtime. <130 documented as of this encounter Plan of Treatment Not on filedocumented as of this encounter Visit Diagnoses Not on filedocumented in this encounter Care Teams Hoop Coiling Machine Operator Relationship Specialty Start Date End Date Nasir Velazquez MD PCP - General 02/18/99 10/06/13 [facility] [address] [place] [address] documented as of this encounter
--- OUTSIDE RECORDS SUMMARY | 2021-11-04 10:38 | XMS_ITS | Encounter Summary ---
:1945 Author Organization [facility] Address [address] [facility] 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 TSH WITH FREE T4 Routine 06/30/2010 9:01 Hypertension goal BP Results for this REFLEX AM CDT (blood pressure) < procedure are in 140/90 the results section. PROSTATE SPECIFIC Routine 06/30/2010 9:01 Special screening fo r Results for this ANTIGEN SCREEN AM CDT malignant neoplasm of proc edure are in prostate the results HYPERTROPHY of section. PROSTATE LIPID REFLEX TO Routine 06/30/2010 9:01 Hyperlipidemia LDL Res ults for this DIRECT LDL PANEL AM CDT goal <130 procedure a re in the results section. COMPREHENSIVE Routine 06/30/2010 9:01 Hyperlipidemia LDL Resul ts for this METABOLIC PANEL AM CDT goal <130 procedure are in Hypertension goal BP the res ults (blood pressure) < section. 140/90 CBC WITH PLATELETS Routine 06/30/2010 9:01 Hypertension goal B P Results for this AM CDT (blood pressure) < procedure are in 140/90 the results section. documented in this encounter Results Microalbumin quantitative random urine (06/30/2010 9:02 AM CDT) athologist Signature Creatinine 123 mg/dL [facility] Urine [facility] Albumin Urine 3 mg/L [facility] mg/L [facility] Albumin Urine 2.44 0 - 20 [facility] mg/g Cr mg/g Cr [facility] Specimen Anatomical Collection Method Collection Time Receive d Time (Source) Location / / Volume Laterality Urine specimen 06/30/2010 9:02 AM 011 9:03 (specimen) CDT AM CDT Nasir Velazquez MD LAB - URINE ORDERABLES Performing Organization Address City/State/ZIP Code Phon e Number [facility] [address] [place] [address] [facility] Prostate spec antigen screen (06/30/2010 9:01 AM CDT) athologist Signature PSA 0.59 0 - 4 ug/L [facility] Specimen Anatomical Collection Method Collection Time Receive d Time (Source) Location / / Volume Laterality Blood specimen 06/30/2010 9:01 AM 011 9:02 (specimen) CDT AM CDT Nasir Velazquez MD LAB - BLOOD ORDERABLES Performing Organization Address City/State/ZIP Code Phon e Number [facility] [address] [place] [address] [place] [facility] (ABNORMAL) Comprehensive metabolic panel (06/30/2010 9:01 AM CDT) P athologist Signature Sodium 144 133 - 144 [place] mmol/L [facility] Potassium 4.0 3.4 - 5.3 [place] mmol/L [facility] Chloride 103 94 - 109 [place] mmol/L [facility] Carbon Dioxide 31 20 - 32 [place] mmol/L [facility] Anion Gap 10 6 - 17 [place] mmol/L [facility] Glucose 100 (H) 60 - 99 [place] mg/dL [facility] Urea Nitrogen 17 7 - 30 [place] mg/dL [facility] Creatinine 1.05 0.66 - [place] 1.25 mg/dL [facility] GFR Estimate 71 >60 [place] mL/min/1.7 [facility] m2 LAB GFR Estimate If 86 >60 [place] Black mL/min/1.7 [facility] m2 LAB Calcium 9.3 8.5 - 10.4 [place] mg/dL [facility] Bilirubin Total 0.8 0.2 - 1.3 [place] mg/dL [facility] Albumin 4.2 3.3 - 4.9 [place] g/dL [facility] Comment: Reference range changed on 10/07. Protein Total 7.1 6.8 - 8.8 g/dL [facility] Comment: As of 07, reference range reflects plasma specimen type. Alkaline Phosphatase 100 40 - 150 U/L [facility] ALT 29 0 - 70 U/L [facility] AST 29 0 - 55 U/L [facility] Specimen Anatomical Collection Method Collection Time Receive d Time (Source) Location / / Volume Laterality Blood specimen 06/30/2010 9:01 AM 011 9:02 (specimen) CDT AM CDT Nasir Velazquez MD LAB - BLOOD ORDERABLES Performing Organization Address City/State/ZIP Code Phon e Number [facility] [address] [place] [address] [facility] TSH with free T4 reflex (06/30/2010 9:01 AM CDT) athologist Signature TSH 1.89 0.4 - 5.0 [facility] mU/L [facility] Specimen Anatomical Collection Method Collection Time Receive d Time (Source) Location / / Volume Laterality Blood specimen 06/30/2010 9:01 AM 011 9:02 (specimen) CDT AM CDT Nasir Velazquez MD LAB - BLOOD ORDERABLES Performing Organization Address City/[facility]/ZIP Code Phon e Number [facility] [address] [place] [address] [facility] LAB (ABNORMAL) Lipid panel reflex to direct LDL (06/30/2010 9:01 AM CDT) athologist Signature Cholesterol 164 0 - 200 [facility] mg/dL CLINIC LAB Comment: LDL Cholesterol is the primary guide to therapy. The NCEP recommends further evaluation of: patients with cholesterol greater than 200 mg/dL if additional risk facto rs are present, cholesterol greater than 240 mg/dL, triglycerides greater than 1 50 mg/dL, or HDL less than 40 mg/dL. Triglycerides 187 (H) 0 - 150 mg/dL [facility] HDL Cholesterol 40 40 - 110 mg/dL [facility] LDL Cholesterol Calculated 87 0 - 129 mg/dL [facility] Comment: LDL Cholesterol is the primary guide to therapy: LDL-cholesterol goal in high risk patients is <100 mg/dL and in very high risk patients is <70 mg/dL. VLDL-Cholesterol 37 (H) 0 - 30 mg/dL [facility] Cholesterol/HDL Ratio 4.2 0.0 - 5.0 [facility] Specimen Anatomical Collection Method Collection Time Receive d Time (Source) Location / / Volume Laterality Blood specimen 06/30/2010 9:01 AM 011 9:02 (specimen) CDT AM CDT Nasir Velazquez MD LAB - BLOOD ORDERABLES Performing Organization Address City/[facility]/ZIP Code Phon e Number [facility] [address] [place] [address] [facility] LAB (ABNORMAL) CBC with platelets (06/30/2010 9:01 AM CDT) Analysis Performed At Patho logist Time Signature WBC 5.2 4.0 - 11.0 [place] 10e9/L [facility] RBC Count 4.60 4.4 - 5.9 [place] 10e12/L [facility] Hemoglobin 13.3 13.3 - [place] 17.7 g/dL [facility] Hematocrit 38.9 (L) 40.0 - [place] 53.0 % [facility] MCV 85 78 - 100 [facility] LAB MCH 28.9 26.5 - [place] 33.0 pg [facility] MCHC 34.2 31.5 - [place] 36.5 g/dL [facility] RDW 13.1 10.0 - [place] 15.0 % [facility] Platelet Count 159 150 - 450 [place] 10e9/L [facility] Specimen Anatomical Collection Method Collection Time Receive d Time (Source) Location / / Volume Laterality Blood specimen 06/30/2010 9:01 AM 011 9:02 (specimen) CDT AM CDT Nasir Velazquez MD LAB - BLOOD ORDERABLES Performing Organization Address City/State/ZIP Code Phon e Number [facility] [address] [place] [address] [facility] documented in this encounter Visit Diagnoses Diagnosis Hypertension goal BP (blood pressure) < 140/90 Unspecified essential hypertension Hyperlipidemia LDL goal <130 Other and unspecified hyperlipidemia Special screening for malignant neoplasm of prostate HYPERTROPHY of PROSTATE Hypertrophy of prostate without urinary obstruction and other lower urinary tract symptoms (LUTS) documented in this encounter Care Teams Laboratory Veterinarian Relationship Specialty Start Date End Date Nasir Velazquez MD PCP - General 02/18/99 10/06/13 [facility] [address] [place] [address] documented as of this encounter
--- OUTSIDE RECORDS SUMMARY | 2021-11-04 10:38 | XMS_ITS | Encounter Summary ---
:1945 Author Organization [facility] Address [address] [facility] [place] [address] Care Team Providers Name Role Phone Nasir Velazquez MD Primary Care Provider [phone] Reason for Referral Referral not Required - Closed Specialty Diagnoses / Procedures Referred By Contact Refer red To Contact Diagnoses Back injury Nasir Velazquez, [facility] [address] [facility] AD[address] OFF[address] [place] [address] [place], [place] [address] Phone: [phone] Referral ID Status Reason Start Date Expiration Date Visits Requ ested Visits Authorized [id number] Closed 04/02/2012 09/29/2012 1 1 DDER TENDER Reason for Visit Reason Comments Back Pain Encounter Details Date Type Department Care Team Description 04/02/2012 Office Visit [facility] Nasir Velazquez Back i carlos ([facility] [place] [address] [place], [place] CLINIC [address] [address] [facility] [phone] [place] [address] (Wo rk) Social History Tobacco [...] at Date Recorded 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 documented as of this encounter Last Filed Vital Signs Vital Sign Reading Time Taken Comments Blood Pressure 115/70 04/02/2012 10:54 AM SHREDDER TENDER Pulse 68 04/02/2012 10:54 AM SHREDDER TENDER Temperature 36.7 ??C (98.1 ??F) 04/02/2012 10:54 AM SHREDDER TENDER Respiratory Rate - - Oxygen Saturation 95% 04/02/2012 10:54 AM SHREDDER TENDER Inhaled Oxygen Concentration - - Weight 93.2 kg (205 lb 6.4 oz) 04/02/2012 10:54 AM SHREDDER TENDER Height 175.3 cm (5' 9) 04/02/2012 10:54 AM SHREDDER TENDER Body Mass Index 30.33 04/02/2012 10:54 AM SHREDDER TENDER documented in this encounter Progress Notes Nasir Velazquez MD - 04/02/2012 10:19 AM CST SUBJECTIVE: Terry Montero is a 66 year old male who presents to clinic today for the following health issues: Back Pain ?? Duration: started on Sunday ?? Description (location/character/radiation): left lower back, started as he bent over the sink. Had immediate pain. No radiation of pain. He does feel that it has started to improve over the last 24 hours. ?? Intensity: severe ?? Accompanying signs and symptoms (weakness/fever/urinary symptoms): none ?? History (similar episodes/surgery/injury): yes ?? Precipitating or alleviating factors: walking ?? Therapies tried and outcome: ice pack and advil Patient reports a distant history of spondylolisthesis, diagnosed by a chiropractor over 20 years ago. He has had intermittent problems with low back pain over many years. He denies any radicular type symptoms including pain, weakness, numbness, tingling in the bilateral or lower extremities. Problem list and histories reviewed & adjusted, as indicated. Additional history: as documented ROS: C: NEGATIVE for fever, chills, change in weight E/M: NEGATIVE for ear, mouth and throat problems R: NEGATIVE for significant cough or SOB CV: NEGATIVE for chest pain, palpitations or peripheral edema Problem list, Medication list, Allergies, and Medical/Social/Surgical histories reviewed in EPIC andupdated as appropriate. OBJECTIVE: BP 115/70 Pulse 68 Temp(Src) 98.1 ??F (36.7 ??C) (Oral) Ht 5' 9 (1.753 m) Wt 205 lb 6.4 oz (93.169 kg) BMI 30.33 kg/m2 SpO2 95% Body mass index is 30.33 kg/(m^2). BACK: Lumbosacral spine area reveals local tenderness in the left paraspinal musculature.. Painful and reduced LS ROM noted. Straight leg raise is negative at 75 degrees on both sides. DTR's, motor strength and sensation normal, including heel and toe gait. Perifpheral pulses are palpable. Hips and knees have full range of motion without pain. No abdominal tenderness, mass or organomegaly. Diagnostic test results: none ASSESSMENT/PLAN: 959.19 Back injury (primary encounter diagnosis) Comment: Plan: SOTO PT, HAND, AND CHIROPRACTIC REFERRAL Acute muscular low back injury without evidence of nerve involvement. I recommended physical therapy given his recurrent episodes, for core strengthening and introduction to other recommended back exercises. Patient will call or return to clinic prn if these symptoms worsen or fail to improve as anticipated. Estimated Body mass index is 30.33 kg/(m^2) as calculated from the following: Height as of this encounter: 5' 9(1.753 m). Weight as of this encounter: 205 lb 6.4 oz(93.169 kg). Nasir Velazquez [facility] DDER TENDER documented in this encounter Nursing Notes 04/02/2012 10:45 AM CST >> BRANDT Zuñiga Apr 02, 2012 10:59 AM Patient presents with: Back Pain Initial BP 115/70 Pulse 68 Temp(Src) 98.1 ??F (36.7 ??C) (Oral) Ht 5' 9 (1.753 m) Wt 205 lb6.4 oz (93.169 kg) BMI 30.33 kg/m2 SpO2 95% Estimated Body mass index is 30.33 kg/(m^2) as calculated from the following: Height as of this encounter: 5' 9(1.753 m). Weight as of this encounter: 205 lb 6.4 oz(93.169 kg).. BP completed using cuff size: regular Brandt Manuel SMA documented in this encounter Plan of Treatment Scheduled Referrals Name Type Priority Associated Diagnoses Order S [place] SOTO PT, HAND, AND Referral Routine Back injury Ordered: 0 04/02/2012 CHIROPRACTIC REFERRAL documented as of this encounter Visit Diagnoses Diagnosis Back injury - Primary Other injury of other sites of trunk documented in this encounter Care Teams Dance Costume Designer Relationship Specialty Start Date End Date Nasir Velazquez MD PCP - General 02/18/99 10/06/[address] [address] documented as of this encounter
--- OUTSIDE RECORDS SUMMARY | 2021-11-04 10:38 | XMS_ITS | Encounter Summary ---
:1945 Author Organization [facility] Address [address] [facility] 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
--- OUTSIDE RECORDS SUMMARY | 2021-11-04 10:38 | XMS_ITS | Encounter Summary ---
:1945 Author Organization [facility] Address [facility] [facility] 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 documented as of this encounter Miscellaneous Notes Telephone Encounter - Poly Ibrahim - 08/18/2011 2:37 PM CDT RF request for Simvastatin Ok per RN protocol for 45 with 2 refills KALA:06/06/2011 Poly Ibrahim RN BP Readings from Last 1 Encounters: 06/14/11 135/84 Recent Labs Lab Test 06/06/11 1115 06/30/10 0901 CHOL 187 164 HDL 43 40 LDL 98 87 TRIG 232* 187* CHOLHDLRATIO 4.3 4.2 AST 29 06/30/2010 ALT 29 06/30/2010 -OV every 12 months -FLP every 6 months if LDL >100 -FLP every 12 months if LDL <100 -Repeat labs 6-8wks after dosage change -May do RF's until date of scheduled future orders Category: Cholesterol/Statin Telephone Encounter - Sharon Tan - 08/17/2011 4:13 PM CDT Patient is requesting a refill on medication Simvastatin patient would like a 90 day refill 40 mg 45tabs- patient stated that he has changed pharmacy's current information provided - thank you Sharon Gama [facility] Pharmacy line #[phone] documented in this encounter Plan of Treatment Not on filedocumented as of this encounter Visit Diagnoses Diagnosis Hyperlipidemia LDL goal <130 - Primary Other and unspecified hyperlipidemia documented in this encounter Care Teams Tele Rn Relationship Specialty Start Date End Date Nasir Velazquez MD PCP - General 02/18/99 10/06/13 [facility] [address] [place] [address] documented as of this encounter
--- OUTSIDE RECORDS SUMMARY | 2021-11-04 10:38 | XMS_ITS | Encounter Summary ---
:1945 Author Organization [place] Address [address] [facility] [place] [address] Care Team Providers Name Role Phone Nasir Velazquez MD Primary Care Provider [phone] Reason for Visit SOTO Occupational Therapy (Routine) - Closed Specialty Diagnoses / Procedures Referred By Contact Refer red To Contact Tony Brizuela MD [facility] [place] [facility] [address] [place] [address] [address] [place], [place] [phone] [address] [place] [address] Phone: Referral ID Status Reason Start Date Expiration Date Visits Requ ested Visits Authorized SOTO/HP/HAND Closed 01/15/2012 02/05/2012 10 8 Encounter Details Date Type Department Care Team Description 01/22/2012 Therapy Visit [facility], Emperatriz Thumb pain (Primary Center [facility]) [address] 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 Diagnosis: Left Thumb CMC/MCP joint pain DOI: 1 year ago: Date of Order: 01/12/12 Patient reports symptoms of pain of the left thumb MP which occurred due to gradual onset. Patient states he had a trigger thumb release performed on that thumb and has had pain ever since. Since onsetsymptoms are unchanged.?? Special tests:?? x-ray.?? Previous treatment: None.? General health asreported by patient is good.?? Pertinent medical history includes:?? skin cancer, high blood pressure, apnea, former smoker.?? Medical allergies: None. Surgical history: None.?? 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 None Prior functional level:?? None? Red flags:?? None QuickDASH Disability/Symptom Score: Functional Outcome Tool: SCORE Sum: 18 Count: 11 QuickDASH Disability/Symptom Score: 15.91 (A higher score indicates greater disability.) Objective: ROM: WFL Strength: N/T Edema: [x] None [] Mild [] Moderate [] Severe [] of affected part Scar: healed Sensation: [x] WNL throughout all nerve distributions; per patient report [] Decreased [] Median [] Ulnar [] Radial nerve distribution Pain: Per DASH Rating: [] None [] Mild [x] Moderate [] Severe [] Extreme Assessment: Patient presents with symptoms consistent with diagnosis of Left Thumb CMC/MCP Joint Pain, with conservative intervention. Patient's limitations or Problem List includes: Pain of the left thumb which interferes with the patient's ability to perform Recreational Activities and Career Placement Specialist as compared to previous level of function. Rehab Potential: Excellent - Return to full activity, no limitations Patient will benefit from skilled Occupational Therapy to increase stability of thumb and decrease pain to return to previous activity level and resume normal daily tasks and to reach their rehab potential. Barriers to Learning: No barrier Communication Issues: Patient appears to be able to clearly communicate and understand verbal and written communication and follow directions correctly. Treatment Explanation: The following has been discussed with the patient: RX ordered/plan of care Anticipated outcomes Possible risks and side effects Frequency: 1 X week, once daily Duration: for 1 visits Treatment Plan: Orthotic Fabrication: Static orthosis and Hand based orthosis Discharge Plan: Achieve all LTG. Independent in home treatment program. Reach maximal therapeutic benefit. Please refer to the daily flowsheet for treatment today, total treatment time and time spent performing 1:1 timed codes. RETE PIPE PLANT SUPERVISOR documented in this encounter Plan of Treatment Not on filedocumented as of this encounter Procedures Procedure Name Priority Date/Time Associated Diagnosis Comme nts HC APPLY FINGER SPLINT Routine 01/22/2012 11:13 AM CONCRETE PIPE PLANT SUPERVISOR Thumb p ain STATIC documented in this encounter Visit Diagnoses Diagnosis Thumb pain - Primary Pain in limb documented in this encounter Care Teams Corporate Strategy Associate Relationship Specialty Start Date End Date Nasir Velazquez MD PCP - General 02/18/99 10/06/13 [place] [place] [place] [address] documented as of this encounter
--- OUTSIDE RECORDS SUMMARY | 2021-11-04 10:38 | XMS_ITS | Encounter Summary ---
:1945 Author Organization [place] Address [facility] [place] [address] Care Team Providers Name Role Phone Nasir Velazquez MD Primary Care Provider [phone] Reason for Referral Specialty Diagnoses / Procedures Referred By Contact Refer red To Contact Pool Mays DPM [address] [facility] [address] [place] [address] Referral ID Status Reason Start Date Expiration Date Visits Requ ested Visits Authorized Reason for Visit Reason Comments RECHECK pt states he is going to hav e injections at [facility]. He would like to talk about it before he has the i njections. Encounter Details Date Type Department Care Team Description 06/09/[address] 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 Most painful upon rising in a.m. or after prolonged sitting. Denies history of recent trauma. Has tried changing shoewear and OTC inserts without much success. Pain persisiting over the past several yrs and significant pain reduction w/ past injection under image intensification @ [facility]. Pt is requesting a re-peat of injections - pt does receive about 4-5 months of pain relief from past injections. PMH, meds, all, PSH, PFH, and [...] to the 2nd/3rd tarsometatarsal joints rt foot. 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 Recommended modifying activities, supportive shoes, ice, stretching, and not going barefoot. Rx for [facility] and consider surgical arthrodesis in the fall. Re-peat injections today. documented in this encounter Nursing Notes 06/09/2011 11:00 AM CDT >> ANGELIA GRAFF Fri June 09, 2011 11:06 AM Patient presents with: RECHECK - pt states he is going to have injections at [facility]. He would like to talk about it before he has the injections. Initial There were no vitals taken for this visit. Angelia Graff CMA documented in this encounter Plan of Treatment Scheduled Referrals Name Type Priority Associated Diagnoses Order S chedule ORTHOTICS REFERRAL Referral Routine Pain in limb Ordered: 06/09/2011 Pes planus Arthralgia documented as of this encounter Procedures Procedure Name Priority Date/Time Associated Diagnosis Comme nts XR FOOT RIGHT G/E 3 Routine 06/09/2011 11:36 AM Pain in limb R esults for this VIEWS CDT procedure are i n the results section. XR FOOT LEFT G/E 3 Routine 06/09/2011 11:36 AM Pain in limb Re sults for this VIEWS CDT procedure are i n the results section. documented in this encounter Results X-ray lt Foot G/E 3 vws* (06/09/2011 11:36 AM CDT) Anatomical Region Laterality Modality Foot, Ankle Left Other Specimen (Source) Anatomical Collection Method Collection Time Re ceived Time Location / / Volume Laterality 06/09/2011 11:36 AM CDT Impressions 06/09/2011 12:22 PM CDT FOOT G/E 3 VIEWS LEFT * June 09, 2011 11:3 6:00 AM HISTORY: Pain. FINDINGS: Moderate degenerative change i nvolving the head of the first metatarsal. Moderate degenerative change first and second TMT joints. Exam otherwise negative. Pool Mays DPM [facility] IMAG[facility] ORDER MICHELLE X-ray rt Foot G/E 3 vws* (06/09/2011 11:36 AM CDT) Anatomical Region Laterality Modality Foot, Ankle Right Other Specimen (Source) Anatomical Collection Method Collection Time Re ceived Time Location / / Volume Laterality 06/09/2011 11:36 AM CDT Impressions 06/09/2011 12:23 PM CDT FOOT G/E 3 VIEWS RIGHT* June 09, 2011 11:3 6:00 AM HISTORY: Pain. FINDINGS: Hallux valgus deformity. Moder ate degenerative change head of the first metatarsal. Moderate degene rative change first and second TMT joints. No other findings. Pool Mays DPM [facility] DI[facility]NOSTIC IMAGING ORDER MICHELLE documented in this encounter Visit Diagnoses Diagnosis Pain in limb - Primary Pes planus Flat foot Arthralgia Pain in joint, site unspecified documented in this encounter Care Teams Yard Foreman Relationship Specialty Start Date End Date Nasir Velazquez MD PCP - General 02/18/99 10/06/13 [facility] [address] [place] [address] documented as of this encounter
--- OUTSIDE RECORDS SUMMARY | 2021-11-04 10:38 | XMS_ITS | Encounter Summary ---
:1945 Author Organization [place] Address Pending sale to [facility]0 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 Velazquez to fill KALA:03/2012 Labs due:06/2012 Poly Ibrahim RN BP Readings from Last 1 Encounters: 04/02/12 115/70 Recent Labs Lab Test 06/06/11 1115 06/30/10 0901 CHOL 187 164 HDL 43 40 LDL 98 87 TRIG 232* 187* CHOLHDLRATIO 4.3 4.2 AST 29 06/30/2010 ALT 29 06/30/2010 -OV every 12 months -FLP, AST &/or ALT every 6 months if LDL >100 -FLP, AST &/or ALT every 12 months if LDL <100 -Repeat labs 6-8wks after dosage change -May do RF's until date of scheduled future orders Category: Cholesterol/Statin Telephone Encounter - Martha Dias - 05/28/2012 8:45 AM CDT Refill request for: simvastatin (ZOCOR) 40 MG tablet 45 tablet 2 08/18/2011 Sig: Take 0.5 tablets by mouth At Bedtime. Class: E-Prescribe Route: Oral Can you refill? Last OV:06/06/2011 Last Refill:08/18/2011 Martha Dias Pillar Worker Telephone Encounter - Martha Dias - 05/28/2012 8:45 AM CDT Message from [employer]: Original authorizing provider: Nasir Velazquez MD, MD Terry Montero would like a refill of the following medications: simvastatin (ZOCOR) 40 MG tablet [Nasir Velazquez MD, MD] Preferred pharmacy: [facility], [id number] [place] [address] Comment: documented in this encounter Plan of Treatment Not on filedocumented as of this encounter Visit Diagnoses Diagnosis Hyperlipidemia LDL goal <130 - Primary Other and unspecified hyperlipidemia documented in this encounter Care Teams Hat Conditioner Relationship Specialty Start Date End Date Nasir Velazquez MD PCP - General 02/18/99 10/06/13 [facility] [address] [place] [address] documented as of this encounter
--- OUTSIDE RECORDS SUMMARY | 2021-11-04 10:39 | XMS_ITS | Encounter Summary ---
:1945 Author Organization [place] Address [address] [facility] 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 HC FLUORO GUIDE FOR Routine 11/11/2008 10:04 AM R esults for this NEEDLE PLACEMENT CDT procedure a re in BX/ASP/INJ/LOC DEV the resul ts section. documented in this encounter Results FLUOROSCOPIC GUIDANCE NEEDLE PLACEMENT (11/11/2008 10:05 AM CDT) Specimen (Source) Anatomical Collection Method Collection Time Re ceived Time Location / / Volume Laterality 11/11/2008 10:05 AM CDT Impressions RADIOLOGY RESULTS - 11/27/2008 1:53 PM C DT EXAM: Right second and third and left se cond tarsometatarsal Foot Injection with Steroid HISTORY: Right foot pain and osteoarthr itis. Right foot 2nd and 3rd tarsometatarsal joint injection. Left f oot 2nd tarsometatarsal joint injection 1 min 51 sec fluoro time, 1 c c of Omnipaque 180 used in each joint. PROCEDURE: The risks (including bleedin g, infection, and allergy to contrast and medications) and benefits of the procedure were explained to the patient and consent was obtained . Using sterile technique and fluoroscopic guidance, a #25 gauge need le was placed into the right second and third tarsometatarsal joint and the left second tarsometatarsal joint just using a dors al approach. A small amount of contrast was injected to confirm intraa rticular location of the needle tip. 40mg of Kenalog and 1 mL Marcaine 0.5% were injected within each foot. No initial complications. The patients pain level (0-10 scale) we re as follows: PRE INJECTION Right foot 3 Left foot 3 POST INJECTION Right foot 1 Left foot 0 IMPRESSION: Technically successful bila teral foot steroid/anesthetic injection with favorable initial pain r elief. Long-term results pending. Pool Mays DPM SPECIAL IMAGING STUDIES Performing Organization Address City/State/ZIP Code Phon e Number RADIOLOGY RESULTS FLUOROSCOPIC GUIDANCE NEEDLE PLACEMENT (11/11/2008 10:04 AM CDT) Specimen (Source) Anatomical Collection Method Collection Time Re ceived Time Location / / Volume Laterality 11/11/2008 10:04 AM CDT Impressions RADIOLOGY RESULTS - 11/11/2008 10:19 AM CDT EXAM: Right second and third and left se cond tarsometatarsal Foot Injection with Steroid HISTORY: Right foot pain and osteoarthri tis. ??Right foot 2nd and 3rd tarsometatarsal joint injection. Left fo ot 2nd tarsometatarsal joint injection 1 min 51 sec fluoro time, 1 cc of Omnipaque 180 used in each joint. PROCEDURE: The risks (including bleeding , infection, and allergy to contrast and medications) and benefits o f the procedure were explained to the patient and consent was obtained. ??Using sterile technique and fluoroscopic guidance, a #25 gauge needl e was placed into the right second and third tarsometatarsal joint a nd the left second tarsometatarsal joint just using a dorsa l approach. ??A small amount of contrast was injected to confirm intraar ticular location of the needle tip. ??40mg of Kenalog and 1 mL Marcaine 0.5% were injected ??within each foot. ??No initial complications. The patients pain level (0-10 scale) wer e as follows: PRE INJECTION ?? Right foot ?3 Left foot ? 3 POST INJECTION Right foot ?1 Left foot ? 0 IMPRESSION: ??Technically successful jane ateral foot steroid/anesthetic injection with favorable ??initial pain relief. ??Long-term results pending. Pool Mays DPM SPECIAL IMAGING STUDIES Performing Organization Address City/State/ZIP Code Phon e Number RADIOLOGY RESULTS documented in this encounter Visit Diagnoses Not on filedocumented in this encounter Care Teams Loft Worker Head Relationship Specialty Start Date End Date Nasir Velazquez MD PCP - General 02/18/99 10/06/13 [facility]3] [address] [place] [address] documented as of this encounter
--- OUTSIDE RECORDS SUMMARY | 2021-11-04 10:39 | XMS_ITS | Encounter Summary ---
:1945 Author Organization [place] Address [address] [facility] [place] [address] Care Team Providers Name Role Phone Nasir Velazquez MD Primary Care Provider Raghavendra Deras MD Primary Care Provider Unavailable Raghavendra Deras MD Unavailable Unavailable BraedenRaghavendra lang MD Unavailable Unavailable Reason for Visit Reason Onset Date Comments MyChart Communication 03/12/2009 Simvastatin and HC TZ Encounter Details Date Type Department Care Team Description [facility]/12[facility] MD Geraldo (Simvastatin and HCTZ) [address] [place], [place] CLINIC [address] [address] [facility] [phone] [place] [address] (Wo rk) Social History Tobacco Use Types Packs/Day Years Used Date Former Smoker Quit: 02/05/18 85 Alcohol Use Standard Drinks/Week Comments Yes 1.7 (1 standard drink = 0.6 oz pure alco hol) socially Sex Assigned at Date Recorded 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 Last refills 05/25/08 and last OV 10/19/08 with PCP.BP 146/80. FLP LDL 113, ALT WNL 10/19/08. K Cr WNL 10/19/08. Due for labs in April. Left note with refill to make appt. Per [facility] refill protocols, refills done. Selene Raymond RN CTOR OF PHYSICAL EDUCATION Telephone Encounter - Selene Raymond - 03/15/2009 11:05 AM DIRECTOR OF PHYSICAL EDUCATION Message from [email or web address]: Terry Montero would like a refill of the following medications: SIMVASTATIN 20 MG OR TABS [Nasir Velazquez MD] HYDROCHLOROTHIAZIDE 25 MG OR TABS [Nasir Velazquez MD] Preferred pharmacy: [facility] Comment: CTOR OF PHYSICAL EDUCATION documented in this encounter Plan of Treatment Not on filedocumented as of this encounter Visit Diagnoses Diagnosis Mixed hyperlipidemia Essential hypertension, benign documented in this encounter Care Teams Vat Overhauler Relationship Specialty Start Date End Date Nasir Velazquez MD PCP - General 02/18/99 10/06/13 [facility] [id number] [place] [address] Raghavendra Deras MD PCP - General Family Practice 10/07/13 Raghavendra Deras MD PCP - Assigned PCP 01/23/16 04/09/18 Raghavendra Deras MD Assigned PCP 01/23/16 05/14/21 documented as of this encounter
--- OUTSIDE RECORDS SUMMARY | 2021-11-04 10:39 | XMS_ITS | Encounter Summary ---
:1945 Author Organization [place] Address [facility] [place] [address] Care Team Providers Name Role Phone Nasir Velazquez MD Primary Care Provider [phone] Reason for Visit Reason Onset Date Comments Refill Request 12/04/2008 doxazosin Encounter Details Date Type Department Care Team Description 12/04/2008 Refill [facility] Nasir Velazquez Refill Request [facility] MD Geraldo (doxazosin) [address] [address] [facility] [phone] [place] [address] (Wo rk) Social History Tobacco Use Types Packs/Day Years Used Date Former Smoker Quit: 02/05/18 85 Alcohol Use Standard Drinks/Week Comments Yes 1.7 (1 standard drink = 0.6 oz pure alco hol) socially Sex Assigned at Date Recorded 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
--- OUTSIDE RECORDS SUMMARY | 2021-11-04 10:39 | XMS_ITS | Encounter Summary ---
:1945 Author Organization [place] Address [address] [place] [address] Care Team Providers Name Role Phone Nasir Velazquez MD Primary Care Provider [phone] Reason for Visit Reason Comments RECHECK review stress test results a nd recent labs. Encounter Details Date Type Department Care Team Description 04/30/2009 Office Visit [facility] Nasir Velazquez Hypert ension (Primary Dx); Clinic Candy Chow MD HYPERTROPHY of PROSTATE ; [address] [facility] Mixed Hyperlipidemia; [place], [place] CLINIC MORENITA (Obstructive Sleep Apnea); [address] [facility] Nasal Congestion [phone] [place] [address] Social History Tobacco Use Types Packs/Day Years Used Date Former Smoker Quit: 02/05/18 85 Alcohol Use Standard Drinks/Week Comments Yes 1.7 (1 standard drink = 0.6 oz pure alco hol) socially Sex Assigned at Date Recorded 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 documented as of this encounter Last Filed Vital Signs Vital Sign Reading Time Taken Comments Blood Pressure 124/78 04/30/2009 8:37 AM CDT Pulse 62 04/30/2009 8:37 AM CDT Temperature 36.7 ??C (98 ??F) 04/30/2009 8:37 AM CDT Respiratory Rate - - Oxygen Saturation 97% 04/30/2009 8:37 AM CDT Inhaled Oxygen Concentration - - Weight 87.2 kg (192 lb 4 oz) 04/30/2009 8:37 AM CDT Height 174 cm (5' 8.5) 04/30/2009 8:37 AM CDT Body Mass Index 28.81 04/30/2009 8:37 AM CDT documented in this encounter Progress Notes Nasir Velazquez - 04/30/2009 9:02 AM CDT Terry Montero is a 64 year old male who presents for evaluation of: 1. chest pain - saw [place] [facility], had a negative stress echocardiogram. Describes symptoms as a vibration in the chest. It has gradually improved since his original office visit. 2. nasal congestion - on awakening. Also with food, he gets rhinorrhea. Happens regularly. Present for 5-6 months. Resolves after he finishes eating. He received a referral to ENT at his last office visit and is wondering if he should go. 3. obstructive sleep apnea - evaluated 3 years ago. Snores, has apneic episodes. He tried 3 different CPAP machines, but did not tolerate it. This was 3 years ago. He now uses Breathe Right strips, sleeps on his side, and if he gets 8 hours of sleep, he feels well rested. 4. hypertension - patient started on Lisinopril last office visit after a blood pressure of 138/88. He took for a month and then stopped. His blood pressures have remained OK off of the Lisinopril. Problems list, allergies, social and family history, and past medical history, are all reviewed and updated in [facility]. Current outpatient prescriptions ordered prior to encounter: FISH OIL 1000 MG OR CAPS one capsule twice daily. LISINOPRIL 10 MG OR TABS ONE DAILY HYDROCHLOROTHIAZIDE 25 MG OR TABS 1 TAB PO QD (Once per day) SIMVASTATIN 20 MG OR TABS 1 TABLET AT BEDTIME DOXAZOSIN MESYLATE 4 MG OR TABS 1 TABLET DAILY OMEPRAZOLE 40 MG OR CPDR ONE DAILY OBJECTIVE: BP 124/78 Pulse 62 Temp(Src) 98 ??F (36.7 ??C) (Oral) Ht 5' 8.5 (1.74 m) Wt 192 lb 4 oz (87.204 kg) SpO2 97% GENERAL APPEARANCE: healthy, alert and no distress [...] swelling or edema in lower extremities. Assessment/Plan: 401.9AH Hypertension (primary encounter diagnosis) Plan: HYDROCHLOROTHIAZIDE 25 MG OR TABS Comment: well controlled. I explained that I would not have put patient on Lisinopril with only 1 blood pressure of 138/88, and all others well controlled. Stay off Lisinopril now as it is not needed. continue to recheck out of the office and if elevated, return to clinic again. Otherwise, follow up 6months. 600.00 HYPERTROPHY of PROSTATE Plan: DOXAZOSIN MESYLATE 4 MG OR TABS Comment: well controlled, continue current regimen 272.2 Mixed Hyperlipidemia Plan: Comment: he will continue to take fish oil for his elevated triglycerides. recheck in 2-3 months. 327.23H MORENITA (Obstructive Sleep Apnea) Plan: Comment: has snoring but no significant fatigue. Discussed signs and symptoms of uncontrolled obstructive sleep apnea. Patient will call or return to clinic prn if these symptoms worsen or fail to improve as anticipated. 478.19BE Nasal Congestion Plan: Comment: Gustatory rhinorrhea. Offered nasal Atrovent. He will contact the clinic if he decides to proceed with the medication. otherwise he can follow up with ENT. Spent greater than 50% of 25 minutes of ztda-lw-hesu time counseling patient and/or coordinating care regarding above issues. documented in this encounter Nursing Notes 04/30/2009 8:30 AM CDT >> [place] Apr 30, 2009 8:39 AM Patient presents with: RECHECK - review stress test results and recent labs. Initial BP 124/78 Pulse 62 Temp(Src) 98 ??F (36.7 ??C) (Oral) Ht 5' 8.5 (1.74 m) Wt 192 lb 4 oz (87.204 kg) SpO2 97% Estimated Body mass index is 28.81 kg/(m^2) as calculated from the following: Height as of this encounter: 5' 8.5(1.74 m). Weight as of this encounter: 192 lb 4 oz(87.204 kg).. BP completed using cuff size: large Phoenxi Dubois ENVIRONMENTAL COMPLIANCE MANAGER documented in this encounter Plan of Treatment Not on filedocumented as of this encounter Visit Diagnoses Diagnosis Hypertension - Primary Unspecified essential hypertension HYPERTROPHY of PROSTATE Hypertrophy of prostate without urinary obstruction and other lower urinary tract symptoms (LUTS) Mixed hyperlipidemia MORENITA (obstructive sleep apnea) Obstructive sleep apnea (adult) (pediatr ic) Nasal congestion Other diseases of nasal cavity and sinus es documented in this encounter Care Teams Erp Technical Lead Relationship Specialty Start Date End Date Nasir Velazquez MD PCP - General 02/18/99 10/06/13 [facility] [address] [place] [address] documented as of this encounter
--- OUTSIDE RECORDS SUMMARY | 2021-11-04 10:39 | XMS_ITS | Encounter Summary ---
:1945 Author Organization [place] Address [facility] 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 Andrew Kraus RN Recent Labs Lab Test 06/30/09 1021 04/23/09 0836 ??? CHOL 185 155 ??? HDL 35* 35* ??? LDL 108 76 ??? TRIG 212* 222* ??? CHOLHDLRATIO 5.3* 4.4 AST 33 10/19/2008 ALT 24 10/19/2008 Telephone Encounter - Andrew Kraus - 07/22/2009 11:02 AM CDT Message copied by ANDREW KRAUS on SunJul 22, 2009 11:02 AM ------ Message from: EDYTA MUNSON Created: SunJul 22, 2009 10:45 AM Regarding: Rx request/[place] Contact: Carlos needs a 30 day refill for Simvasatin sent to [facility] in [place] ([place]), jose alfredo. He would also need a 90 day refill for Simvasatin sent to the mail order. He can be reached at [phone]. DL 6-17@10:51am documented in this encounter Plan of Treatment Not on filedocumented as of this encounter Visit Diagnoses Diagnosis Mixed hyperlipidemia - Primary documented in this encounter Care Teams Metal Base Blocker Relationship Specialty Start Date End Date Nasir Velazquez MD PCP - General 02/18/99 10/06/[address] [address] documented as of this encounter
--- OUTSIDE RECORDS SUMMARY | 2021-11-04 10:39 | XMS_ITS | Encounter Summary ---
:1945 Author Organization [place] Address [address] [facility] [place] [address] Care Team Providers Name Role Phone Nasir Velazquez MD Primary Care Provider [phone] Reason for Visit Reason Onset Date Comments Foot Problems 11/04/2008 Seen today for rt fo ot pain Encounter Details Date Type Department Care Team Description 11/04/2008 Telephone [facility] Pool Mays, Velma t Problems (Seen Clinic [facility] today for rt foot pain) [address] [facility] [address] [address] [place], [place] [id number] (Wo rk) Social History Tobacco Use Types Packs/Day Years Used Date Former Smoker Quit: 02/05/18 85 Alcohol Use Standard Drinks/Week Comments Yes 1.7 (1 standard drink = 0.6 oz pure alco hol) socially Sex Assigned at Date Recorded Male 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 Placed order for X ray of left foot. He will go to [facility] tomorrow for the X ray. OnceDr. Mays had reviewed the X ray I will call the patient back. Pt may be reached at [phone] or [phone] Florecita Graff CMA Telephone Encounter - Florecita Graff - 11/05/2008 9:00 AM CDT LM for pt to call me. Florecita Graff CMA Telephone Encounter - Pool Mays - 11/04/2008 2:58 PM CDT Florecita, I would suggest having pt come in for future 3 view WB lt foot x-ray. Based on the findings, then possible injection @ [facility] Radiology. Telephone Encounter - Elly Jeffries - 11/04/2008 2:49 PM CDT Pt calling about appt today about rt foot pain, states he forgot to talk to you about left foot painas well. States it is similar, just not quite as severe. He said you talked about cortisone shot forrt foot and wonders if he should have in left as well. Please advise. documented in this encounter Plan of Treatment Not on filedocumented as of this encounter Visit Diagnoses Diagnosis Pain in the foot - Primary Pain in limb documented in this encounter Care Teams Staff Radiographer Relationship Specialty Start Date End Date Nasir Velazquez MD PCP - General 02/18/99 10/06/13 [facility] [address] [place] [address] documented as of this encounter
--- OUTSIDE RECORDS SUMMARY | 2021-11-04 10:39 | XMS_ITS | Encounter Summary ---
:1945 Author Organization [place] Address [facility] 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 Pt to come in next week to see Dr. Velazquez. Phoenix Dubois PATTERNMAKER APPRENTICE WOOD Initial BP 120/76 Pulse 64 Estimated Body mass index is 29.29 kg/(m^2) as calculated from the following: Height as of 03/24/09: 5' 8.5(1.74 m). Weight as of 03/24/09: 195 lb 8 oz(88.678 kg).. BP completed using cuff size: temo Dubois PATTERNMAKER APPRENTICE WOOD documented in this encounter Plan of Treatment Not on filedocumented as of this encounter Visit Diagnoses Diagnosis BP check - Primary Screening for hypertension documented in this encounter Care Teams Rn Procedure Relationship Specialty Start Date End Date Nasir Velazquez MD PCP - General 02/18/99 10/06/13 [facility] [address] [place] [address] documented as of this encounter
--- OUTSIDE RECORDS SUMMARY | 2021-11-04 10:39 | XMS_ITS | Encounter Summary ---
:1945 Author Organization [place] Address [address] [place] [address] Care Team Providers Name Role Phone Nasir Velazquez MD Primary Care Provider [phone] Encounter Details Date Type Department Care Team Description 03/26/2009 Orders Only [facility] Maximilian Garcia SIS NOT YET [facility] [place] PA-C DEFINED (Primary Dx) [address] [address] [place], [place] [phone] [address] Social History Tobacco Use Types Packs/Day Years Used Date Former Smoker Quit: 02/05/18 85 Alcohol Use Standard Drinks/Week Comments Yes 1.7 (1 standard drink = 0.6 oz pure alco hol) socially Sex Assigned at Date Recorded Male 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 documented in this encounter Results STRESS ECHO (METRO) (03/26/2009) Anatomical Region Laterality Modality Other Narrative This result has an attachment that is no t available. Maximilian Garcia PA-C SPECIAL IMAGING STUDIES documented in this encounter Visit Diagnoses Diagnosis DIAGNOSIS NOT YET DEFINED - Primary documented in this encounter Care Teams Chemistry Instructor Relationship Specialty Start Date End Date Nasir Velazquez MD PCP - General 02/18/99 10/06/13 [facility] [address] [place] [address] documented as of this encounter
--- OUTSIDE RECORDS SUMMARY | 2021-11-04 10:39 | XMS_ITS | Encounter Summary ---
:1945 Author Organization [place] Address [facility] [place] [address] Care Team Providers Name Role Phone Nasir Velazquez MD Primary Care Provider [phone] Reason for Visit Reason Onset Date Comments Erroneous encounter-disregard 03/17/2009 Encounter Details Date Type Department Care Team Description 03/17/2009 Telephone [facility] Nasir Velazquez [facility] MD Geraldo encounter-disregard [address] [place], [place] [address] [facility] [address] 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 INOMETER TESTER documented in this encounter Plan of Treatment Not on filedocumented as of this encounter Visit Diagnoses Not on filedocumented in this encounter Care Teams Hogshead Inspector Relationship Specialty Start Date End Date Nasir Velazquez MD PCP - General 02/18/99 10/06/13 [facility] [address] [place] [address] documented as of this encounter
--- OUTSIDE RECORDS SUMMARY | 2021-11-04 10:39 | XMS_ITS | Encounter Summary ---
:1945 Author Organization [place] Address [address] [facility] [place] [address] Care Team Providers Name Role Phone Nasir Velazquez MD Primary Care Provider [phone] Reason for Visit Reason Onset Date Comments Patient Request 09/13/2009 Omeprazole Encounter Details Date Type Department Care Team Description 09/13/[address] 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 Chelsie Clifford RN Last OV: 04/30/2009 Medication used for: 530.81 Esophageal Reflux BP Readings from Last 2 Encounters: 04/30/2009 124/78 04/23/2009 120/76 CR 1.02 10/19/2008 POTASSIUM 4.0 10/19/2008 Telephone Encounter - Yazmin Sanchez - 09/13/2009 11:28 AM CDT Supposedly, [facility] faxed an Rx request for Omeprazole. I show we didn't receive it. Carlos needs a refill sent to [facility] in [place] ([place]) by Sunday. Also, send to [facility]. Carlos can be reachedat [phone]. DL documented in this encounter Plan of Treatment Not on filedocumented as of this encounter Visit Diagnoses Diagnosis Esophageal reflux - Primary documented in this encounter Care Teams Political Anthropologist Relationship Specialty Start Date End Date Nasir Velazquez MD PCP - General 02/18/99 10/06/13 [facility] [address] [place] [address] documented as of this encounter
--- OUTSIDE RECORDS SUMMARY | 2021-11-04 10:39 | XMS_ITS | Encounter Summary ---
:1945 Author Organization [place] Address [facility] [place] [address] Care Team Providers Name Role Phone Nasir Velazquez MD Primary Care Provider [phone] Encounter Details Date Type Department Care Team Description 04/23/2009 Orders Only [facility] Clinic Mix ed Hyperlipidemia; [facility] Palpitation; [address] [facility] Screening PSA (Prostate Spec ific Antigen); [place] [address] HYPERTROPHY of PROSTATE [phone] Social History Tobacco Use Types Packs/Day Years Used Date Former Smoker Quit: 02/05/18 85 Alcohol Use Standard Drinks/Week Comments Yes 1.7 (1 standard drink = 0.6 oz pure alco hol) socially Sex Assigned at Date Recorded 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 documented in this encounter Plan of Treatment Not on filedocumented as of this encounter Procedures Procedure Name Priority Date/Time Associated Diagnosis Comme nts HCL LIPID PANEL, Routine 04/23/2009 8:36 AM Mixed Hyperlipidem ia Results for this REFLEX TO DIRECT CDT procedure a re in LDL the results section. HCL PROSTATE SPEC Routine 04/23/2009 8:36 AM Screening PSA (Pr ostate Results for this ANTIGEN,SCREEN CDT Specific Antigen ) procedure are in HYPERTROPHY of PROSTATE the results section. HCL TSH Routine 04/23/2009 8:36 AM Palpitation Results f or this CDT procedure are i n the results section. HCL T4 FREE Routine 04/23/2009 8:36 AM Palpitation Results f or this CDT procedure are i n the results section. documented in this encounter Results PROSTATE SPEC ANTIGEN,SCREEN (04/23/2009 8:36 AM CDT) athologist Signature PSA 0.49 0 - 4 ug/L [facility] Specimen Anatomical Collection Method Collection Time Receive d Time (Source) Location / / Volume Laterality 04/23/2009 8:36 AM 0 8:37 CDT AM CDT Kedar Maki PA-C LABORATORY Performing Organization Address City/[facility]/ZIP Code Phon e Number [facility] [address] [place] [address] [facility] T4, FREE, SERUM (04/23/2009 8:36 AM CDT) athologist Signature T4 Free 1.15 0.70 - 1.85 [facility] ng/dL [facility] Specimen Anatomical Collection Method Collection Time Receive d Time (Source) Location / / Volume Laterality 04/23/2009 8:36 AM 0 8:37 CDT AM CDT Kedar Maki PA-C LABORATORY Performing Organization Address City/[facility] Phon e Number [facility] [address] [place] [address] [facility] TSH- (04/23/2009 8:36 AM CDT) athologist Signature TSH 2.27 0.4 - 5.0 [facility] mU/L [facility] Specimen Anatomical Collection Method Collection Time Receive d Time (Source) Location / / Volume Laterality 04/23/2009 8:36 AM 0 8:37 CDT AM CDT Kedar Maki PA-C LABORATORY Performing Organization Address City/[facility]/ZIP Code Phon e Number [facility] [address] [place] [address] [facility] (ABNORMAL) LIPID PANEL, REFLEX TO DIRECT LDL (04/23/2009 8:36 AM CDT) athologist Signature Cholesterol 155 0 - 200 [facility] mg/dL CLINIC LAB Comment: LDL Cholesterol is the primary guide to therapy. The NCEP recommends further evaluation of: patients with cholesterol <200 mg/dL if additional risk factors are present, cholesterol >240 mg/dL, triglycerides >150 mg/dL, or HDL <40 mg/dL. Triglycerides 222 (H) 0 - 150 mg/dL [facility] HDL Cholesterol 35 (L) 40 - 110 mg/dL [facility] LDL Cholesterol Calculated 76 0 - 129 mg/dL [facility] Comment: LDL Cholesterol is the primary guide to therapy: LDL-cholesterol goal in high risk patients is <100 mg/dL and in very high risk patients is <70 mg/dL. VLDL-Cholesterol 44 (H) 0 - 30 mg/dL [facility] Cholesterol/HDL Ratio 4.4 0.0 - 5.0 [facility] Specimen Anatomical Collection Method Collection Time Receive d Time (Source) Location / / Volume Laterality 04/23/2009 8:36 AM 0 8:37 CDT AM CDT Kedar Maki PA-C LABORATORY Performing Organization Address City/State/ZIP Code Phon e Number [facility] [address] [place] [address] [facility] documented in this encounter Visit Diagnoses Diagnosis Mixed hyperlipidemia Palpitation Palpitations Screening PSA (prostate specific antigen ) Special screening for malignant neoplasm of prostate HYPERTROPHY of PROSTATE Hypertrophy of prostate without urinary obstruction and other lower urinary tract symptoms (LUTS) documented in this encounter Care Teams Log Marker Relationship Specialty Start Date End Date Nasir Velazquez MD PCP - General 02/18/99 10/06/13 [facility] [address] [place] [address] documented as of this encounter
--- OUTSIDE RECORDS SUMMARY | 2021-11-04 10:39 | XMS_ITS | Encounter Summary ---
:1945 Author Organization [place] Address [facility] [place] [address] Care Team Providers Name Role Phone Nasir Velazquez MD Primary Care Provider [phone] Reason for Visit Reason Onset Date Comments Refill Request 03/21/2010 Encounter Details Date Type Department Care Team Description 03/21/2010 MyC Refill [facility] [place]ir [place] [address] [place] [address] [facility] [phone] [facility] [address] [address] (Wo rk) Social History Tobacco Use Types Packs/Day Years Used Date Former Smoker Quit: 02/05/18 85 Alcohol Use Standard Drinks/Week Comments Yes 1.7 (1 standard drink = 0.6 oz pure alco hol) socially Sex Assigned at Date Recorded 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 Can you refill? Chelsie Clifford RN BP Readings from Last 2 Encounters: 04/30/2009 124/78 04/23/2009 120/76 CR 1.02 10/19/2008 POTASSIUM 4.0 10/19/2008 F DEVELOPMENT EDUCATOR Telephone Encounter - Chelsie Clifford - 03/21/2010 11:50 AM STAFF DEVELOPMENT EDUCATOR Message from [facility]: Terry Montero would like a refill of the following medications: HYDROCHLOROTHIAZIDE 25 MG OR TABS [Nasir Velazquez MD] Preferred pharmacy: [email or web address] Comment: 4 days left F DEVELOPMENT EDUCATOR documented in this encounter Plan of Treatment Not on filedocumented as of this encounter Visit Diagnoses Diagnosis Hypertension - Primary Unspecified essential hypertension Hyperlipidemia LDL goal <130 Other and unspecified hyperlipidemia documented in this encounter Care Teams Framer Relationship Specialty Start Date End Date Nasir Velazquez MD PCP - General 02/18/99 10/06/13 [facility] [address] [place] [address] documented as of this encounter
--- OUTSIDE RECORDS SUMMARY | 2021-11-04 10:39 | XMS_ITS | Encounter Summary ---
:1945 Author Organization [place] Address [facility] [place] [address] Care Team Providers Name Role Phone Nasir Velazquez MD Primary Care Provider [phone] Reason for Visit Reason Onset Date Comments Refill Request 06/23/2010 doxazosin (CARDURA) 4 MG tablet [[id number] Encounter Details Date Type Department Care Team Description 06/23/2010 Refill [facility] Nasir Velazquez Refill Request Clinic Candy Chow MD (doxazosin (CARDURA) 4 [address] [facility] MG tablet [[id number] ) [place], [place] [address] [facility] [address] [facility] [phone] [place] [address] (Wo rk) Social History Tobacco Use Types Packs/Day Years Used Date Former Smoker Quit: 02/05/18 85 Alcohol Use Standard Drinks/Week Comments Yes 1.7 (1 standard drink = 0.6 oz pure alco hol) socially Sex Assigned at Date Recorded Male 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 documented as of this encounter Miscellaneous Notes Telephone Encounter - Daniel Janny - 06/24/2010 1:09 PM CDT Refilled Cardura PSO for quanity of: 90 no RF patient has appointment scheduled for 07/01/10 Last Written: 12/20/2009 A Daniel, RN HYPERTENSION MEDS Last Office Visit R/T Diagnosis: 04/30/2009 Provider Notes: Recheck x 3 months BP Readings from Last 3 Encounters: 04/30/09 124/78 04/23/09 120/76 03/24/09 138/88 Potassium Date Value Range Status 10/19/2008 4.0 3.4-5.3 (mmol/L) Final ] Creatinine Date Value Range Status 10/19/2008 1.02 0.66-1.25 (mg/dL) Final New IDMS-traceable calibration beginning 06/06/07 ] LIZZ INHIBITORS Accupril, Altace, Capoten, Lotensin, Monopril, Prinivil/Zestril(lisinopril), Vasotec ANGIOTENSIN RECEPTOR BLOCKERS (ARB) Avapro, Atacand, Benicar, Cozaar, Diovan, Micardis LIZZ INHIBITOR/CALCIUM CHANNEL DIANA: Lotrel OV AND REFILLS Q 12 MTHS IF BP <140/90 OV AND REFILLS Q 6 MTHS IF BP >140/90 DM <140/90 Vascular Disease: <130/80 Tests: Annual K+and Creatinine If BP reviewed and plan is noted, can refill. Recheck BP and labs in 1-2 mths after dosage change If BP is still elevated and labs are abnormal, forward to provider. May substitute via therapeutic comparison chart: ANGIOTENSIN CONVERTING ENZYME INHIBITORS (LIZZ-1) BETA BLOCKERS Corgard, Inderal, Betapace (sotalol), Labetalol, Tenormin (atenolol), Toprol (metoprolol), Zebeta, Coreg OV AND REFILLS Q 12 MTHS IF BP <140/90 OV AND REFILLS Q 6 MTHS IF BP >140/90 DM <140/90 Vascular Disease: <130/80 If BP reviewed and plan is noted, can refill. Recheck BP and labs in 1-2 mths after dosage change If BP is still elevated and labs are abnormal, forward to provider CALCIUM CHANNEL BLOCKERS Calan/Verelan/IsoptinSR (verapamil) Cardizem/Dilacor/Cartia/Tiazac (diltiazem) Norvasc (amlodipine) Plendil, Procardia/Adalat, Sular OV AND REFILLS Q 12 MTHS IF BP <140/90 OV AND REFILLS Q 6 MTHS IF BP >140/90 DM <140/90 Vascular Disease: <130/80 Tests: Annual Creatinine If BP reviewed and plan is noted, can refill. Recheck BP and labs in 1-2 mths after dosage change If BP is still elevated and labs are abnormal, forward to provider. VASODILATORS (Apresoline) OV AND REFILLS Q 12 MTHS IF BP <140/90 OV AND REFILLS Q 6 MTHS IF BP >140/90 DM <140/90 Vascular Disease: <130/80 If BP reviewed and plan is noted, can refill. Recheck BP and labs in 1-2 mths after dosage change If BP is still elevated and labs are abnormal, forward to provider. ALPHA BLOCKERS Cardura, Hytrin, Minipress OV AND REFILLS Q 12 MTHS IF BP <140/90 OV AND REFILLS Q 6 MTHS IF BP >140/90 DM <140/90 Vascular Disease: <130/80 If BP reviewed and plan is noted, can refill. Recheck BP and labs in 1-2 mths after dosage change If BP is still elevated and labs are abnormal, forward to provider. CENTRAL ACTING ANTIADRENERGICS Catapres (Clonidine) TTS patch or pill OV AND REFILLS Q 12 MTHS IF BP <140/90 OV AND REFILLS Q 6 MTHS IF BP >140/90 DM <140/90 Vascular Disease: <130/80 If BP reviewed and plan is noted, can refill. Recheck BP and labs in 1-2 mths after dosage change If BP is still elevated and labs are abnormal, forward to provider. CALCIUM CHANNEL DIANA/STATIN COMBINATION Caduet BP Readings from Last 3 Encounters: 04/30/09 124/78 04/23/09 120/76 03/24/09 138/88 CHOL 185 06/30/2009 HDL 35 06/30/2009 LDL 108 06/30/2009 TRIG 212 06/30/2009 CHOLHDLRATIO 5.3 06/30/2009 ALT 24 10/19/2008 Creatinine Date Value Range Status 10/19/2008 1.02 0.66-1.25 (mg/dL) Final New IDMS-traceable calibration beginning 06/06/07 ] OV AND REFILLS Q 6MTHS IF BP AND LDL IN RANGE TESTS: FLP, ALT/AST, CREAT BP<140/90 BP vascular disease <130/90 LDL>100 every q 6mths and with dosage change: FLP and ALT/AST Or per future orders (May do refills until the date fo future orders scheduled) Review last provider visit notes. If BP is reviewed and a plan is noted, OK to refill. Recheck BP, FLP, ALT/AST, 6-8 wks after dosage change. If BP is still elevated and labs are abnormal, forward to provider. Telephone Encounter - Ariella Davidson - 06/23/2010 11:11 AM CDT Patient is requesting this Rx, he states he called [facility] and put in the request with them, last timehe did this he found out that we did not get any request from [facility]. He would like to make sure thistime the request get placed for him. Ariella Davidson Obgyn Specialist documented in this encounter Plan of Treatment Not on filedocumented as of this encounter Visit Diagnoses Diagnosis HYPERTROPHY of PROSTATE - Primary Hypertrophy of prostate without urinary obstruction and other lower urinary tract symptoms (LUTS) documented in this encounter Care Teams Sonar Technician Relationship Specialty Start Date End Date Nasir Velazquez MD PCP - General 02/18/99 10/06/13 [facility] [address] [place] [address] documented as of this encounter
--- OUTSIDE RECORDS SUMMARY | 2021-11-04 10:39 | XMS_ITS | Encounter Summary ---
:1945 Author Organization [place] Address [facility] 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 documented in this encounter Results (ABNORMAL) LIPID PANEL, REFLEX TO DIRECT LDL (06/30/2009 10:21 AM CDT) athologist Signature Cholesterol 185 0 - 200 [facility] Comment: LDL Cholesterol is the primary guide to therapy. The NCEP recommends further evaluation of: patients with cholesterol <200 mg/dL if additional risk factors are present, cholesterol >240 mg/dL, triglycerides >150 mg/dL, or HDL <40 mg/dL. Triglycerides 212 (H) 0 - 150 mg/dL [facility] HDL Cholesterol 35 (L) 40 - 110 mg/dL [facility] LDL Cholesterol Calculated 108 0 - 129 mg/dL [facility] Comment: LDL Cholesterol is the primary guide to therapy: LDL-cholesterol goal in high risk patients is <100 mg/dL and in very high risk patients is <70 mg/dL. VLDL-Cholesterol 42 (H) 0 - 30 mg/dL [facility] Cholesterol/HDL Ratio 5.3 (H) 0.0 - 5.0 [facility] Specimen Anatomical Collection Method Collection Time Receive d Time (Source) Location / / Volume Laterality 06/30/2009 10:21 06/30/2009 AM CDT 10:23 AM CDT Maximilian Garcia PA-C LABORATORY Performing Organization Address City/State/ZIP Code Phon e Number [facility] [address] [place] [address] [facility] documented in this encounter Visit Diagnoses Diagnosis Mixed hyperlipidemia documented in this encounter Care Teams Hand Mexican Food Maker Relationship Specialty Start Date End Date Nasir Velazquez MD PCP - General 02/18/99 10/06/13 [facility] [address] [place] [address] documented as of this encounter
--- OUTSIDE RECORDS SUMMARY | 2021-11-04 10:39 | XMS_ITS | Encounter Summary ---
:1945 Author Organization [place] Address [facility] [place] [address] Care Team Providers Name Role Phone Nasir Velazquez MD Primary Care Provider [phone] Reason for Visit Reason Onset Date Comments Orders 03/10/2009 [facility] Encounter Details Date Type Department Care Team Description 03/10/2009 Telephone [facility] Nasir Velazquez Orders ([facility] [place]) [place] [address] [place] [address] [facility] [phone] [place] [address] (Wo rk) Social History Tobacco Use Types Packs/Day Years Used Date Former Smoker Quit: 02/05/18 85 Alcohol Use Standard Drinks/Week Comments Yes 1.7 (1 standard drink = 0.6 oz pure alco hol) socially Sex Assigned at Date Recorded Male 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 Requires Doctor Signature. Form put in Dr. Velazquez's box to sign. Chelsie Clifford RN' SCANNER OPERATOR documented in this encounter Plan of Treatment Not on filedocumented as of this encounter Visit Diagnoses Not on filedocumented in this encounter Care Teams Aircraft Electrician Relationship Specialty Start Date End Date Nasir Velazquez MD PCP - General 02/18/99 10/06/13 [facility] [address] [place] [address] documented as of this encounter
--- OUTSIDE RECORDS SUMMARY | 2021-11-04 10:39 | XMS_ITS | Encounter Summary ---
:1945 Author Organization [place] Address [facility] [place] [address] Care Team Providers Name Role Phone Nasir Velazquez MD Primary Care Provider [phone] Reason for Visit Reason Onset Date Comments Refill Request 12/20/2009 Encounter Details Date Type Department Care Team Description 12/20/[address] 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 Sig: ??1 TABLET DAILY ? Class: ??Fax ? Route: ??Oral ? Order: ??[id number] ?? Pharmacy [facility] ?? Associated Diagnoses HYPERTROPHY of PROSTATE ?? Refill done. Chelsie Clifford RN NESS MANAGEMENT SPECIALIST Telephone Encounter - Chelsie Clifford - 12/20/2009 12:12 PM BUSINESS MANAGEMENT SPECIALIST Message from [facility]: Terry Montero would like a refill of the following medications: DOXAZOSIN MESYLATE 4 MG OR TABS [Nasir Velazquez MD] Preferred pharmacy: [facility] Comment: NESS MANAGEMENT SPECIALIST documented in this encounter Plan of Treatment Not on filedocumented as of this encounter Visit Diagnoses Diagnosis HYPERTROPHY of PROSTATE - Primary Hypertrophy of prostate without urinary obstruction and other lower urinary tract symptoms (LUTS) documented in this encounter Care Teams Tape Coater Relationship Specialty Start Date End Date Nasir Velazquez MD PCP - General 02/18/99 10/06/[address] [address] documented as of this encounter
--- OUTSIDE RECORDS SUMMARY | 2021-11-04 10:39 | XMS_ITS | Encounter Summary ---
:1945 Author Organization [place] Address [facility]0 [facility] 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 documented in this encounter Results LT X-RAY FOOT 3+ VW (11/06/2008 11:13 AM CDT) Anatomical Region Laterality Modality Other Specimen (Source) Anatomical Collection Method Collection Time Re ceived Time Location / / Volume Laterality 11/06/2008 11:13 AM CDT Impressions 11/07/2008 9:07 AM CDT FOOT THREE OR MORE VIEWS LEFT ??Nov 06 11:13:00 AM HISTORY: Pain in the foot. FINDINGS: There is hallux valgus deformi ty and mild degenerative changes at the first metatarsophalangeal joint. Pool Mays DPM GENERAL IMAGING documented in this encounter Visit Diagnoses Diagnosis Pain in the foot - Primary Pain in limb documented in this encounter Care Teams Grocery Clerk Selling Relationship Specialty Start Date End Date Nasir Velazquez MD PCP - General 02/18/99 10/06/13 [facility] [id number] [place] [address] documented as of this encounter
--- OUTSIDE RECORDS SUMMARY | 2021-11-04 10:39 | XMS_ITS | Encounter Summary ---
:1945 Author Organization [place] Address [address] [place] [address] Care Team Providers Name Role Phone Nasir Velazquez MD Primary Care Provider [phone] Raghavendra Deras MD Primary Care Provider Unavailable Encounter Details Date Type Department Care Team Description 03/26/2009 Historic Results [facility] Heart Unknown, [facility] [address] [place] [address] Social History Tobacco Use Types Packs/Day Years Used Date Former Smoker Quit: 02/05/18 85 Alcohol Use Standard Drinks/Week Comments Yes 1.7 (1 standard drink = 0.6 oz pure alco hol) socially Sex Assigned at Date Recorded Male 01/15/2018 11:39 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 Provider Scan CV ECHO ORDERABLES documented in this encounter Visit Diagnoses Not on filedocumented in this encounter Care Teams Credit Or Loans Officer Relationship Specialty Start Date End Date Nasir Velazquez MD PCP - General 02/18/99 10/06/13 [facility] [address] [place] [address] Raghavendra Deras MD PCP - General Family Practice 10/07/13 documented as of this encounter
--- OUTSIDE RECORDS SUMMARY | 2021-11-04 10:39 | XMS_ITS | Encounter Summary ---
:1945 Author Organization [place] Address [address] [facility] [place] [address] Care Team Providers Name Role Phone Nasir Velazquez MD Primary Care Provider [phone] Reason for Referral Office Workup No CT/MRI - Closed Specialty Diagnoses / Procedures Referred By Contact Refer red To Contact Diagnoses Chest pain [place]pitation [place], [facility] [address] [facility] [address] [place] [address] [address] [facility] Phone: [phone] [place] [address] Referral ID Status Reason Start Date Expiration Date Visits Requ ested Visits Authorized [id number] Closed 03/24/2009 02/04/2011 1 1 INE STRAP BUCKLER Reason for Visit Reason Comments Musculoskeletal Problem pt states that he has been h aving some spasms left chest area x 2-3 days. no chest pain. Encounter Details Date Type Department Care Team Description [facility] (Prostate Specific Antigen) (Primary Dx); Clinic Candy Conn PA-C Chest Pain; [address] [facility] Palpitation; [place], [place] HOSPITAL HYPERTROPHY of PROSTATE ; [address] [address] [facility]YPERTENSION; [phone] [place], [place] Mixed Hyperlip idemia [address] Social History Tobacco Use Types Packs/Day Years Used Date Former Smoker Quit: 02/05/18 85 Alcohol Use Standard Drinks/Week Comments Yes 1.7 (1 standard drink = 0.6 oz pure alco hol) socially Sex Assigned at Date Recorded Male 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 documented as of this encounter Last Filed Vital Signs Vital Sign Reading Time Taken Comments Blood Pressure 138/88 03/24/2009 11:48 AM MACHINE STRAP BUCKLER Pulse 67 03/24/2009 11:48 AM MACHINE STRAP BUCKLER Temperature 37.1 ??C (98.7 ??F) 03/24/2009 11:48 AM MACHINE STRAP BUCKLER Respiratory Rate - - Oxygen Saturation 96% 03/24/2009 11:48 AM MACHINE STRAP BUCKLER Inhaled Oxygen Concentration - - Weight 88.7 kg (195 lb 8 oz) 03/24/2009 11:48 AM MACHINE STRAP BUCKLER Height 174 cm (5' 8.5) 03/24/2009 11:48 AM MACHINE STRAP BUCKLER Body Mass Index 29.29 03/24/2009 11:48 AM MACHINE STRAP BUCKLER documented in this encounter Progress Notes Kedar Maki - 03/24/2009 12:05 PM CST SUBJECTIVE: Terry Montero is a 63 year old male patient in today for Chief Complaint: Pain in chest Onset: Past couple days Severity: Alleviating: nothing Aggravation: nothing Associated signs and symptoms: worse in afternoon when at work. No pain but a tingling in chest- left. Sometimes it feels like a flutter. Movement does not change symptoms. Episode lasts seconds- can be at rest or up and about. No shortness of breath. No rash on chest. Review Of Systems Skin: negative Eyes: negative Ears/Nose/Throat: negative Respiratory: No shortness of breath, dyspnea on exertion, cough, or hemoptysis Cardiovascular: as above Gastrointestinal: negative Genitourinary: negative Musculoskeletal: negative Neurologic: negative Psychiatric: negative Hematologic/Lymphatic/Immunologic: negative Endocrine: negative Past Medical History Diagnosis Date ??? Essential Hypertension, Benign 12/30/2002 ??? Acute Duodenal Ulcer with Hemorrhage, without Mention of Obstruction 1997 Past Surgical History Procedure Date ??? Colonoscopy 2002 Outpatient prescriptions marked as taking for the 03/24/09 encounter (Office Visit) with KEDAR MAKI M: HYDROCHLOROTHIAZIDE 25 MG OR TABS 1 TAB PO QD (Once per day) Disp: 30 Tab Rfl: 2 SIMVASTATIN 20 MG OR TABS 1 TABLET AT BEDTIME Disp: 30 Tab Rfl: 0 DOXAZOSIN MESYLATE 4 MG OR TABS 1 TABLET DAILY Disp: 3 months Rfl: 1 OMEPRAZOLE 40 MG OR CPDR ONE DAILY Disp: 3 months Rfl: 3 Allergies Allergen Reactions ??? Quinazolines get bloody noses from Flomax ??? Mometasone Furoate Monohydrate gets bloody noses from Nasonex OBJECTIVE Vitals: BP 138/88 Pulse 67 Temp(Src) 98.7 ??F (37.1 ??C) (Oral) Ht 5' 8.5 (1.74 m) Wt 195 lb 8 oz (88.678 kg) SpO2 96% BMI= Body mass index is 29.29 kg/(m^2). Exam: Constitutional: healthy, alert and no distress Head: Normocephalic. No masses, lesions, tenderness or abnormalities Neck: Neck supple. No adenopathy. Thyroid symmetric, normal size,, Carotids without bruits. ENT: ENT exam normal, no neck nodes or sinus tenderness Cardiovascular: PMI normal. No lifts, heaves, or thrills. RRR. No murmurs, clicks gallops or rub, Noedema or JVD. Respiratory: Percussion normal. Good diaphragmatic excursion. Lungs clear Gastrointestinal: Abdomen soft, non-tender. BS normal. No masses, organomegaly : Deferred Musculoskeletal: extremities normal- no gross deformities noted, gait normal and normal muscle tone Skin: no suspicious lesions or rashes Neurologic: Gait normal. Reflexes normal and symmetric. Sensation grossly WNL. Psychiatric: mentation appears normal. and affect normal/bright Unable to obtain ECG- due to machine - out of order. ASSESSMENT 1. Screening PSA (Prostate Specific Antigen) (V76.44C) PROSTATE SPEC ANTIGEN,SCREEN 2. Chest Pain (786.50F) CONSULT [facility] 3. Palpitation (785.1A) TSH-, T4, FREE, SERUM, CONSULT [facility] 4. HYPERTROPHY of PROSTATE (600.00) PROSTATE SPEC ANTIGEN,SCREEN 5. BENIGN HYPERTENSION (401.1) LISINOPRIL 10 MG OR TABS 6. Mixed Hyperlipidemia (272.2) LIPID PANEL, REFLEX TO DIRECT LDL PLAN Pt needs fasting labs- he will return for those. Will also check thyroid for complaints of palpitation and flutter in chest. Blood pressure not at goal. Will add lisinopril. Recheck in clinic in 2 weeks. INE STRAP BUCKLER documented in this encounter Nursing Notes 03/24/2009 11:30 AM CST >> [facility] Wed Mar 24, 2009 11:51 AM Patient presents with: Musculoskeletal Problem - pt states that he has been having some spasms left chest area x 2-3 days.no chest pain. Initial BP 138/88 Pulse 67 Temp(Src) 98.7 ??F (37.1 ??C) (Oral) Ht 5' 8.5 (1.74 m) Wt 195 lb 8 oz (88.678 kg) SpO2 96% Estimated Body mass index is 29.29 kg/(m^2) as calculated from the following: Height as of this encounter: 5' 8.5(1.74 m). Weight as of this encounter: 195 lb 8 oz(88.678 kg).. BP completed using cuff size: large [place] Dubois HYDRAULIC PLUMBER documented in this encounter Plan of Treatment Not on filedocumented as of this encounter Visit Diagnoses Diagnosis Screening PSA (prostate specific antigen ) - Primary Special screening for malignant neoplasm of prostate Chest pain Chest pain, unspecified Palpitation Palpitations HYPERTROPHY of PROSTATE Hypertrophy of prostate without urinary obstruction and other lower urinary tract symptoms (LUTS) BENIGN HYPERTENSION Essential hypertension, benign Mixed hyperlipidemia documented in this encounter Care Teams Tomographic Tech Relationship Specialty Start Date End Date Nasir Velazquez MD PCP - General 02/18/99 10/06/13 [facility] [address] [place] [address] documented as of this encounter
--- OUTSIDE RECORDS SUMMARY | 2021-11-04 10:40 | XMS_ITS | Encounter Summary ---
:1945 Author Organization [place] Address [address] [place] [address] Care Team Providers Name Role Phone Nasir Velazquez MD Primary Care Provider [phone] Reason for Visit Reason Comments Referral for CT of the chest. Blood Draw pt is fasting for lipids trini t. needs refills Encounter Details Date Type Department Care Team Description 03/16/2008 Office Visit [facility] Nasir Velazquez Mixed Hyperlipidemia (Primary Dx); Clinic Candy Chow MD Essential Hypertension, Benign; [address] [facility] Pulmonary Nodules; [place], [place] CLINIC Special Screening for Malignant Neoplasm of Prostate; [phone] [address] [facility] TDaP Vaccine [phone] [place] [address] Social History Tobacco Use Types Packs/Day Years Used Date Former Smoker Quit: 02/05/18 85 Alcohol Use Standard Drinks/Week Comments Yes 1.7 (1 standard drink = 0.6 oz pure alco hol) socially Sex Assigned at Date Recorded Male 01/15/2018 11:39 PM ACCOUNTANT 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 documented as of this encounter Last Filed Vital Signs Vital Sign Reading Time Taken Comments Blood Pressure 130/80 03/16/2008 10:45 AM ACCOUNTANT BUDGET Pulse 58 03/16/2008 10:45 AM ACCOUNTANT BUDGET Temperature 36.8 ??C (98.3 ??F) 03/16/2008 10:45 AM ACCOUNTANT BUDGET Respiratory Rate - - Oxygen Saturation 95% 03/16/2008 10:45 AM ACCOUNTANT BUDGET Inhaled Oxygen Concentration - - Weight 90.4 kg (199 lb 6 oz) 03/16/2008 10:45 AM ACCOUNTANT BUDGET Height 175.3 cm (5' 9) 03/16/2008 10:45 AM ACCOUNTANT BUDGET Body Mass Index 29.44 03/16/2008 10:45 AM ACCOUNTANT BUDGET documented in this encounter Progress Notes Nasir Velazquez - 03/16/2008 5:23 PM CST Terry Montero is a 62 year old male who presents for evaluation of: 1. hypertension - borderline control. Does not check blood pressures regularly at home. The patient is taking hypertensive medications compliantly without side effects. Denies chest pain, dyspnea, edema, or headaches. 2. pulmonary nodule - due for follow up CT scan. No current symptoms. 3. hyperlipidemia - He has been taking his statin cholesterol medication regularly without side effects such as myalgias or upper abdominal pain, nausea or jaundice. Problems list, allergies, social and family history, and past medical history, are all reviewed and updated in [facility]. Current outpatient prescriptions prior to encounter: DOXAZOSIN MESYLATE 4 MG OR TABS 1 TABLET DAILY OMEPRAZOLE 20 MG OR CPDR ONE DAILY OBJECTIVE: BP 130/80 Pulse 58 Temp (Src) 98.3 ??F (36.8 ??C) (Oral) Ht 5' 9 (1.753 m) Wt 199 lb 6 oz (90.436 kg) SpO2 95% GENERAL APPEARANCE: healthy, alert and [...] swelling or edema in lower extremities. Assessment/Plan: 272.2 Mixed Hyperlipidemia (primary encounter diagnosis) Comment: Plan: SIMVASTATIN 20 MG OR TABS, A.M.A. LIPID PANEL continue current regimen. I will contact the patient regarding his results and determine the followup plan at that time. 401.1 Essential Hypertension, Benign Comment: Plan: HYDROCHLOROTHIAZIDE 25 MG OR TABS, A.M.A. COMPREHENSIVE MET.PANEL, MICROALBUMIN (INC URINE CREAT) adequate control. continue current regimen. Patient will check blood pressures out of the office and return with results if elevated above discussed goals. 518.89CQ Pulmonary Nodules Comment: Plan: CT SCAN CHEST I will contact the patient regarding his results and determine the follow up plan at that time. V76.44 Special Screening for Malignant Neoplasm of Prostate Comment: Plan: PROSTATE SPEC ANTIGEN,SCREEN UNTANT BUDGET documented in this encounter Nursing Notes 03/16/2008 10:45 AM CST >> [facility] Mar 16, 2008 11:05 AM Patient presents with: Referral - for CT of the chest. Blood Draw - pt is fasting for lipids test. needs refills Terry Montero presents for as above. Initial BP 130/80 Pulse 58 Temp (Src) 98.3 ??F (36.8 ??C) (Oral) Ht 5' 9 (1.753 m) Wt 199 lb 6 oz (90.436 kg) SpO2 95% Body mass index is 29.44 kg/(m^2).. BP completed using cuff size: large Health maintenance- psa due after April. [place] Dubois CLOTH WINDING SUPERVISOR documented in this encounter Plan of Treatment Not on filedocumented as of this encounter Procedures Procedure Name Priority Date/Time Associated Diagnosis Comme nts HCL PROSTATE SPEC Routine 03/16/2008 11:33 Special Screening f or Results for this ANTIGEN,SCREEN AM ACCOUNTANT BUDGET Malignant Neoplasm of proc edure are in Prostate the results section. HCL COMPREHENSIVE Routine 03/16/2008 11:33 Essential Result s for this METABOLIC PANEL AM ACCOUNTANT BUDGET Hypertension, Benign proc edure are in the results section. HCL ALBUMIN URINE Routine 03/16/2008 11:33 Essential Result s for this (INC CREAT) AM ACCOUNTANT BUDGET Hypertension, Benign procedu re are in the results section. CL AFF A.M.A. LIPID Routine 03/16/2008 11:33 Mixed Hyperlipide jolynn Results for this PANEL AM ACCOUNTANT BUDGET procedure are i n the results section. documented in this encounter Results PROSTATE SPEC ANTIGEN,SCREEN (03/16/2008 11:33 AM ACCOUNTANT BUDGET) P athologist Signature PSA 0.39 0 - 4 ug/L [facility] Specimen Anatomical Collection Method Collection Time Receive d Time (Source) Location / / Volume Laterality 03/16/2008 11:33 03/16/2008 AM ACCOUNTANT BUDGET 11:35 AM ACCOUNTANT BUDGET Nasir Velazquez MD LABORATORY Performing Organization Address City/State/ZIP Code Phon e Number [facility] [address] [place] [address] [facility] MICROALBUMIN (INC URINE CREAT) (03/16/2008 11:33 AM ACCOUNTANT BUDGET) athologist Signature Creatinine 182 mg/dL [facility] Urine [facility] Albumin Urine 6 mg/L [facility] mg/L [facility] Albumin Urine 3.13 0 - 20 [facility] mg/g Cr mg/g Cr [facility] Specimen Anatomical Collection Method Collection Time Receive d Time (Source) Location / / Volume Laterality 03/16/2008 11:33 03/16/2008 AM ACCOUNTANT BUDGET 11:35 AM ACCOUNTANT BUDGET Nasir Velazquez MD LABORATORY Performing Organization Address City/State/ZIP Code Phon e Number [facility] [address] [place] [address] [facility] (ABNORMAL) A.M.A. COMPREHENSIVE MET.PANEL (03/16/2008 11:33 AM ACCOUNTANT BUDGET) athologist Signature Sodium 146 (H) 133 - 144 [place] mmol/L [facility] Potassium 4.1 3.4 - 5.3 [facility] mmol/L [facility] Chloride 108 94 - 109 [facility] mmol/L [facility] Carbon Dioxide 22 20 - 32 [place] mmol/L [facility] Anion Gap 16 6 - 17 [place] mmol/L [facility] Glucose 99 60 - 99 [facility] mg/dL [facility] Urea Nitrogen 19 7 - 30 [facility] mg/dL [facility] Creatinine 0.96 0.66 - [place] 1.25 mg/dL [facility] Comment: New IDMS-traceable calibration beginning 06/06/07 GFR Estimate 79 >60 mL/min/1.7m2 [place] E [facility] GFR Estimate If Black >90 >60 mL/min/1.7m2 [facility] Calcium 9.5 8.5 - 10.4 mg/dL [facility] Bilirubin Total 0.4 0.2 - 1.3 mg/dL [facility] Albumin 4.5 3.3 - 4.9 g/dL [facility] Comment: Reference range changed on 10/07. Protein Total 7.4 6.8 - 8.8 g/dL [place] [facility] Comment: As of 07, reference range reflects plasma specimen type. Alkaline Phosphatase 129 40 - 150 U/L [facility] ALT 36 0 - 70 U/L [facility] LAB AST 35 0 - 55 U/L [facility] LAB Specimen Anatomical Collection Method Collection Time Receive d Time (Source) Location / / Volume Laterality 03/16/2008 11:33 03/16/2008 AM ACCOUNTANT BUDGET 11:35 AM ACCOUNTANT BUDGET Nasir Velazquez MD LABORATORY Performing Organization Address City/State/ZIP Code Phon e Number [facility] [address] [place] [address] [facility] (ABNORMAL) A.M.A. LIPID PANEL (03/16/2008 11:33 AM ACCOUNTANT BUDGET) athologist Signature Cholesterol 183 0 - 200 [facility] mg/dL CLINIC LAB Comment: LDL Cholesterol is the primary guide to therapy: LDL-cholesterol goal in high risk patients is <100 mg/dL and in very high risk patients is <70 mg/dL. The NCEP recommends further evaluation of: patients with cholesterol <200 mg/dL if additional risk factors are present, cholesterol >240 mg/dL, triglycerides >150 mg/dL, or HDL <40 mg/dL. Triglycerides 178 (H) 0 - 150 mg/dL [facility] HDL Cholesterol 48 40 - 110 mg/dL [facility] LDL Cholesterol Calculated 99 0 - 129 mg/dL [facility] Comment: LDL Cholesterol is the primary guide to therapy: LDL-cholesterol goal in high risk patients is <100 mg/dL and in very high risk patients is <70 mg/dL. VLDL-Cholesterol 36 (H) 0 - 30 mg/dL [facility] Cholesterol/HDL Ratio 3.8 0.0 - 5.0 [facility] Specimen Anatomical Collection Method Collection Time Receive d Time (Source) Location / / Volume Laterality 03/16/2008 11:33 03/16/2008 AM ACCOUNTANT BUDGET 11:35 AM ACCOUNTANT BUDGET Nasir Velazquez MD LABORATORY Performing Organization Address City/State/ZIP Code Phon e Number [address] [address] [facility] documented in this encounter Visit Diagnoses Diagnosis Mixed hyperlipidemia - Primary Essential hypertension, benign Pulmonary nodules Other nonspecific abnormal finding of chidi ng field Special screening for malignant neoplasm of prostate Tdap vaccine Need for prophylactic vaccination with c ombined tdusyplymb-jtyughg-hisldjbzs (DTP) vaccine documented in this encounter Care Teams Graphic Design Assistant Relationship Specialty Start Date End Date Nasir Velazquez MD PCP - General 02/18/99 10/06/13 [facility] [address] [place] [address] documented as of this encounter
--- OUTSIDE RECORDS SUMMARY | 2021-11-04 10:40 | XMS_ITS | Encounter Summary ---
:1945 Author Organization [place] Address [facility] [place] [address] Care Team Providers Name Role Phone Nasir Velazquez MD Primary Care Provider [phone] Encounter Details Date Type Department Care Team Description 03/21/2006 Results [facility] [place] [address] [place] [address] [facility] [phone] [facility] [address] [address] (Wo rk) Social History Tobacco Use Types Packs/Day Years Used Date Former Smoker Quit: 02/05/18 85 Alcohol Use Standard Drinks/Week Comments Yes 1.7 (1 standard drink = 0.6 oz pure alco hol) socially Sex Assigned at Date Recorded Male 01/15/2018 11:39 PM 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 documented in this encounter Results ECHO HEART, FULL STRESS/REST (03/21/2006 10:13 AM SENIOR PRIVATE CLIENT ADVISOR) Component Value Ref Test Analysis Performed At [facility] Method Time Signature [facility] Interpretation Summary RESULTS ECHOCARDIOGRAPHIC RESULTS & IMPRESSIONS: ??THIS WAS A NORMAL STRESS ECHO AND STRESS EKG STUDY. ??Normal resting wall motion and no stress-induced wall motion abnorma lity. ??This test indicates a low probability of severe occlusive coronary artery disease. PatientHeight: 70 in PatientWeight: 192 lbs SystolicPressure: 132 mmHg DiastolicPressure: 78 mmHg HeartRate: 73 bpm BSA 2.1 m^2 Baseline The patient is in normal sinus rhythm. Normal baseline electrocardiogram. Stress Exercise was stopped due to fatigue. The resting phase of the study was normal. The patient exhibited no chest pain during exercise. No arrhythmia noted. This stress test was negative for inducible ischemia. A treadmill exercise test according to the Yunior protocol wa s performed. This was a normal stress echocardiogram. Normal resting wall motion and no stress-induced wall motion abnormality. Procedure Stress Echo Complete. Stress Results Protocol: ??Yunior Protocol Target HR: 136 bpm ?Maximum Predicted HR: 1 60 bpm Stage ?Duration(sec) ??HR(b pm) ?? BP ?DOSE ??Comment ? 180 ?104 ? 160/76 ? 180 ?126 ? 164/80 ? 180 ?142 ? 185/85 ? 90 ? 162 ? 185/85 ?max bp 185/85 - RPP 20674 ? 768 ?100 ? 135/75 ?RPP 52595 Stress Duration: 630 seconds ??Recovery Time: 768 seconds Maximum Stress HR: 162 bpm ?METS: ?? Interpreting Physician: ??Matthew Nava MD electronically signed on 03-21-2006 15:22:13 Specimen (Source) Anatomical Collection Method Collection Time Re ceived Time Location / / Volume Laterality 03/21/2006 10:13 AM SENIOR PRIVATE CLIENT ADVISOR Nasir Velazquez MD SPECIAL IMAGING STUDIES Performing Organization Address City/State/ZIP Code Phon e Number RADIOLOGY RESULTS documented in this encounter Visit Diagnoses Not on filedocumented in this encounter Care Teams Irrigation Service Technician Relationship Specialty Start Date End Date Nasir Velazquez MD PCP - General 02/18/99 10/06/13 [facility] [address] [place] [address] documented as of this encounter
--- OUTSIDE RECORDS SUMMARY | 2021-11-04 10:40 | XMS_ITS | Encounter Summary ---
:1945 Author Organization [place] Address [address] [facility] [place] [place] [address] Care Team Providers Name Role Phone Nasir Velazquez MD Primary Care Provider Raghavendra Deras MD Primary Care Provider Unavailable Encounter Details Date Type Department Care Team Description 03/21/2006 Historic Results [facility] Heart Unknown, 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 Provider Scan CV ECHO ORDERABLES documented in this encounter Visit Diagnoses Not on filedocumented in this encounter Care Teams Traffic Division Commanding Officer Relationship Specialty Start Date End Date Nasir Velazquez MD PCP - General 02/18/99 10/06/13 [facility] [address] [place] [address] Raghavendra Deras MD PCP - General Family Practice 10/07/13 documented as of this encounter
--- OUTSIDE RECORDS SUMMARY | 2021-11-04 10:40 | XMS_ITS | Encounter Summary ---
:1945 Author Organization [place] Address [address] [facility] 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 [facility] form filled out and faxed. He will come in 03/14 for follow up. ED FOOD RECONDITIONING INSPECTOR Telephone Encounter - Aniya Arce - 12/26/2005 11:59 AM CST [facility] Ph: . Phone: . . He states that he only pays $3 for 90 pills using [facility] and he pays $14 for 30 at [facility]. He will run out of meds before [facility] gets them to him. He does not want to pay $14 at [facility], is it ok to skip some pills inbetween? Call pt at home. Aniya Arce CMA Called for form from [facility], they will fax. ED FOOD RECONDITIONING INSPECTOR Telephone Encounter - Aniya Arce - 12/26/2005 11:43 AM CANNED FOOD RECONDITIONING INSPECTOR Staff Message copied by ANIYA ARCE on 12/26/2005 at 11:43 AM ------ Message from: EDYTA MUNSON Created: 12/26/2005 at 11:30 AM Regarding: Phone Message Contact: Terry asked for a refill for Hydrochlorothiazide on 12-18-[address] Murali Velazquez. He [facility]. He uses [facility]. He only has 2 pills left. He would like our clinic to call [facility]'s in , to explain what happened. Terry can be reached at [phone]. 12-26@11:29am ED FOOD RECONDITIONING INSPECTOR documented in this encounter Plan of Treatment Not on filedocumented as of this encounter Visit Diagnoses Not on filedocumented in this encounter Care Teams Therapeutic Consultant Relationship Specialty Start Date End Date Nasir Velazquez MD PCP - General 02/18/99 10/06/13 [place] [id number] [place] [address] documented as of this encounter
--- OUTSIDE RECORDS SUMMARY | 2021-11-04 10:40 | XMS_ITS | Encounter Summary ---
:1945 Author Organization [place] Address [address] [facility] [place] [address] Care Team Providers Name Role Phone Nasir Velazquez MD Primary Care Provider [phone] Reason for Visit Reason Comments Physical pt is fasting. review last w eeks chest x-rays Encounter Details Date Type Department Care Team Description 07/04/2006 Office Visit [facility] Nasir Velazquez MEDICAL EXAM (Primary Dx); Clinic Candy Chow MD OTHER LUNG DISEASE NEC; [address] [facility] BENIGN HYPERTENSION; [place], [place] CLINIC MIXED HYPERLIPIDEMIA [id number] [phone] [place] [address] Social History Tobacco Use Types Packs/Day Years Used Date Former Smoker Quit: 02/05/18 85 Alcohol Use Standard Drinks/Week Comments Yes 1.7 (1 standard drink = 0.6 oz pure alco hol) socially Sex Assigned at Date Recorded Male 01/15/2018 11:39 PM 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 documented as of this encounter Last Filed Vital Signs Vital Sign Reading Time Taken Comments Blood Pressure 110/80 07/04/2006 11:00 AM CDT Pulse 66 07/04/2006 11:00 AM CDT Temperature 37.1 ??C (98.8 ??F) 07/04/2006 11:00 AM CDT Respiratory Rate - - Oxygen Saturation - - Inhaled Oxygen Concentration - - Weight 84.1 kg (185 lb 7 oz) 07/04/2006 11:00 AM CDT Height 174.6 cm (5' 8.75) 07/04/2006 11:00 AM CDT Body Mass Index 27.58 07/04/2006 11:00 AM CDT documented in this encounter Progress Notes Marcus Nasir - 07/04/2006 8:32 PM CDT SUBJECTIVE: CC: Terry Montero is a 61 year old male who presents for routine medical examination HPI: 1. Recent CXR showed persistence of nodule seen [address] scan follow up recommended. 2. benign prostatic hypertrophy - symptoms are 99% controlled with Doxazosin, though he does admitto nocturia x 2. 3. hyperlipidemia wants to discuss recent labs. HISTORIES: PROBLEM LIST: Patient Active Problem List Diagnoses Code ??? 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 ALLERGIC RHINITIS NOS 477.9 ??? MIXED HYPERLIPIDEMIA 272.2 ??? HYPERTROPHY of PROSTATE 600.00 ??? ESOPHAGEAL REFLUX 530.81 ??? BENIGN HYPERTENSION 401.1 PAST MEDICAL HISTORY: Past Medical History Diagnosis Date ??? BENIGN HYPERTENSION 12/30/2002 ??? ACUTE DUODENAL ULCER W HEM 1997 PAST SURGICAL HISTORY: Past Surgical History Procedure Date ??? Colonoscopy 2002 CURRENT MEDICATIONS: Current outpatient prescriptions Medication Sig ??? DOXAZOSIN MESYLATE 4 MG OR TABS 1 TABLET DAILY ??? LIPITOR 10 MG OR TABS 1 tab PO QD (Once per day) ??? NEXIUM 40 MG OR CPDR 1 CAPSULE DAILY ??? ASPIRIN NOT PRESCRIBED (INTENTIONAL) due to exacerbation of heartburn. Hx of Duodenal ulcer ??? HYDROCHLOROTHIAZIDE 25 MG OR TABS 1 TAB PO QD (Once per day) ALLERGIES: Allergies Allergen Reactions ??? Quinazolines get bloody noses from Flomax ??? Mometasone Furoate Monohydrate gets bloody noses from Nasonex SOCIAL HISTORY: History Social History ??? Marital Status: Spouse Name: Karen Number of Children: 1 ??? Years of Education: 15 Occupational History ??? [employer],[address] [place] [address] Social History Main Topics ??? Tobacco Use: Quit Quit date: 02/06/1984 ??? Alcohol Use: 1.0 oz/week socially ??? Drug Use: No ??? Sexually Active: Yes -- Female partner(s) Other Topics Concern ??? Exercise No ??? Seat Belt Yes Social History Narrative ??? No narrative on file FAMILY HISTORY: Family History Problem Relation ??? Diabetes Maternal Grandmother ??? Stroke Maternal Grandmother in old age ??? C.A.D. Maternal Uncle [place] ??? Colon CA Maternal Uncle ??? Prostatic CA Paternal Grandfather 84 ??? Prostatic CA Other Cousin ??? Heart Brother stent - 66 HEALTH MAINTENANCE: Health Maintenance Topic Date Due ??? Psa q1 yr 01/01/2004 ??? Colonoscopy q5 yr. 11/29/2007 ??? Ldl q 5 yrs 03/13/2011 ??? Tetanus q10 yr 04/13/2008 REVIEW OF OUTSIDE RECORDS: NO REVIEW OF SYSTEMS: CONSTITUTIONAL:NEGATIVE for fever, chills, change in weight EYES: NEGATIVE for vision changes or irritation ENT/MOUTH: NEGATIVE for ear, mouth and throat problems RESP:NEGATIVE for significant cough or SOB CV: NEGATIVE for chest pain, palpitations or peripheral edema GI: NEGATIVE for nausea, abdominal pain, heartburn, or change in bowel habits :negative for dysuria, hematuria, decreased urinary stream, erectile dysfunction MUSCULOSKELATAL:NEGATIVE for significant arthralgias or myalgia INTEGUMENTARY/SKIN: NEGATIVE for worrisome rashes, moles or lesions NEURO: NEGATIVE for weakness, dizziness or paresthesias ENDOCRINE: NEGATIVE for temperature intolerance, skin/hair changes HEME/ALLERGY/IMMUNE: NEGATIVE for bleeding problems PSYCHIATRIC: NEGATIVE for changes in mood or affect EXAM: BP 110/80 Pulse 66 Temp (Src) 98.8 (Oral) Ht 5' 8.75 (1.75m) Wt 185 lbs 7.0 oz (84.1kg) GENERAL APPEARANCE: healthy, alert and no distress EXAM: EYES: Eyes grossly normal to inspection, PERRL and conjunctivae and sclerae normal HENT: ear canals and TM's normal and nose and mouth without ulcers or lesions NECK: no adenopathy, no asymmetry, masses, or scars and thyroid normal to palpation RESP: lungs clear to auscultation - no rales, rhonchi or wheezes CV: regular rates and rhythm, normal S1 S2, no S3 or S4 and no murmur, click or rub LYMPH: normal ant/post cervical and supraclavicular nodes ABD/GI: soft, nontender, without hepatosplenomegaly or masses and bowel sounds normal RECTAL EXAM: negative. Rectum is normal without masses. Prostate normal in size; non-tender, soft, symmetric without nodules. : testicles normal without atrophy or masses, no hernias and penis normal without urethral discharge MS: extremities normal- no gross deformities noted SKIN: no suspicious lesions or rashes NEURO: Normal strength and tone, mentation intact and speech normal PSYCH: mentation appears normal and affect normal/bright ASSESSMENT/PLAN V70.0 ROUTINE MEDICAL EXAM (primary encounter diagnosis) Note: Plan: PROSTATE SPEC ANTIGEN,SCREEN Discussed diet and aerobic exercise. Lipids: see below Tetanus: up to date Pneumovax: not indicated Colonoscopy: due 2007 PSA: drawn today 518.89 OTHER LUNG DISEASE NEC Note: Plan: CT SCAN CHEST Asymptomatic. I will contact the patient regarding his results and determine the follow up plan at that time. 401.1 BENIGN HYPERTENSION Note: Plan: A.M.A. BASIC METABOLIC PANEL blood pressure is well controlled on HCTZ. No symptoms or side effects. Check electrolytes. follow up prn 272.2 MIXED HYPERLIPIDEMIA Note: Plan: Lab Test 03/12/06 09/06/05 CHOL 161 143 HDL 39* 38* LDL 77 68 TRIG 228* 186* CHOLHDLRATIO 4.2 3.8 total cholesterol and LDL are well controlled. Discussed improved control of triglycerides with other medications. He would like to approach this through lifestyle improvements at this time. Check at least annually. documented in this encounter Nursing Notes 07/04/2006 11:00 AM CDT >> [place] DUBOIS 07/04/2006 11:10 am Terry Montero presents for as above. Initial BP 110/80 Pulse 66 Temp (Src) 98.8 (Oral) Ht 5' 8.75 (1.75m) Wt 185 lbs 7.0 oz (84.1kg) Body mass index is 27.59 kg/(m^2).. 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 HCL PROSTATE SPEC Routine 07/04/2006 11:50 Routine Medical Exa m Results for this ANTIGEN,SCREEN AM CDT procedure are in the results section. HCL BASIC METABOLIC Routine 07/04/2006 11:50 Benign Hypertensi on Results for this PANEL AM CDT procedure are i n the results section. documented in this encounter Results CT SCAN CHEST (07/09/2006 4:06 PM CDT) Anatomical Region Laterality Modality Other Specimen (Source) Anatomical Collection Method Collection Time Re ceived Time Location / / Volume Laterality 07/09/2006 4:06 PM CDT Impressions 07/09/2006 4:16 PM CDT EXAM: ??CT CHEST FOR NODULE HISTORY: ??Pulmonary nodule, solitary FINDINGS: 1. 4 mm nodule in the left upper lobe se en on image 19. This is indeterminate and followup in 6 months r ecommended. 2. The exam is otherwise negative. Nasir Velazquez MD SPECIAL IMAGING STUDIES PROSTATE SPEC ANTIGEN,SCREEN (07/04/2006 11:50 AM CDT) athologist Signature PSA 0.46 0 - 4 ug/L [facility] Specimen Anatomical Collection Method Collection Time Receive d Time (Source) Location / / Volume Laterality 07/04/2006 11:50 07/04/2006 AM CDT 11:52 AM CDT Nasir Velazquez MD LABORATORY Performing Organization Address City/State/ZIP Code Phon e Number [facility] [address] [place] [address] [facility] (ABNORMAL) A.M.A. BASIC METABOLIC PANEL (07/04/2006 11:50 AM CDT) P athologist Signature Sodium 143 133 - 144 [place] mmol/L [facility] Potassium 4.2 3.4 - 5.3 [place] mmol/L [facility] Chloride 101 94 - 109 [place] mmol/L [facility] Carbon Dioxide 31 20 - 32 [place] mmol/L [facility] Anion Gap 11 6 - 17 [place] mmol/L [facility] Glucose 100 (H) 60 - 99 [place] mg/dL [facility] Urea Nitrogen 16 7 - 30 [place] mg/dL [facility] Creatinine 1.10 0.80 - [place] 1.50 mg/dL [facility] GFR Estimate 72 >60 [place] mL/min/1.7 [facility] m2 LAB GFR Estimate If 88 >60 [place] Black mL/min/1.7 [facility] m2 LAB Calcium 9.5 8.5 - 10.4 [place] mg/dL [facility] Specimen Anatomical Collection Method Collection Time Receive d Time (Source) Location / / Volume Laterality 07/04/2006 11:50 07/04/2006 AM CDT 11:52 AM CDT Nasir Velazquez MD LABORATORY Performing Organization Address City/State/ZIP Code Phon e Number [facility] [address] [place] [address] [facility] documented in this encounter Visit Diagnoses Diagnosis Routine general medical examination at a health care facility - Primary Other diseases of lung, not elsewhere cl assified Essential hypertension, benign Mixed hyperlipidemia documented in this encounter Care Teams Ceramic Capacitor Processor Relationship Specialty Start Date End Date Nasir Velazqeuz MD PCP - General 02/18/99 10/06/13 [facility] [address] [place] [address] documented as of this encounter
--- OUTSIDE RECORDS SUMMARY | 2021-11-04 10:40 | XMS_ITS | Encounter Summary ---
:1945 Author Organization [place] Address [facility] [place] [address] Care Team Providers Name Role Phone Nasir Velazquez MD Primary Care Provider [phone] Encounter Details Date Type Department Care Team Description 03/10/2008 GI Procedure [facility] Nasir Velazquez [facility] MD Geral[address] [address] [place] [phone] [facility] [phone] [facility] [address] [address] (Wo rk) Social History Tobacco Use Types Packs/Day Years Used Date Former Smoker Quit: 02/05/18 85 Alcohol Use Standard Drinks/Week Comments Yes 1.7 (1 standard drink = 0.6 oz pure alco hol) socially Sex Assigned at Date Recorded Male 01/15/2018 11:39 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 documented in this encounter Results COLONOSCOPY (03/10/2008 9:05 AM BISQUE KILN DRAWER) [facility] Method Time Signature COLONOSCOPY Endoscopy RADIOLOGY RESULTS Patient Name: Terry sher ?Gender: M ? Procedure Date: 03/10/2008 9:0 5 AM ? Date of : 1945 ?Age: 62 ? Admit Type: Outpatient ? Attending MD: Wade Parsons MD ? Procedure: ? Colonoscopy Indications: ? Personal history of colonic polyps Providers: ? Wade Parsons MD Referring MD: ?Nasir Velazquez MD Medicines: ? Fe ntanyl 100 micrograms IV, Midazolam 2 mg IV, Atropine ? 0.6 mg IV Complications: ? No immediate complications Procedure: ? - Prior to the procedure, a History and Physical was ? performed, and patient medication allergies were ? reviewed. The patient is competent. The risks and ? benefits of the procedure and the sedation options and ? risks were discussed with the patient. All questions ? were answered and informed consent was obtained. Patient ? identification and proposed procedure were verified by ? the physician in the procedure room. Mental Status ? Examination: alert and oriented. Airway Examination: ? normal oropharyng eal airway and neck mobility. ? Respiratory Examination: clear to auscultation. CV ? Examination: normal. ASA Grade Assessment: I - A normal, ? healthy patient. After reviewing the risks and benefits, ? the patient was deemed in satisfactory condition to ? undergo the procedure. The anesthesia plan was to use ? moderate sedation / analgesia (conscious sedation). ? Immediately prior to administration of medications, the ? patient w as re-assessed for adequacy to receive ? sedatives. The heart rate, respiratory rate, oxygen ? saturations, blood pressure, adequacy of pulmonary ? ventilation, and response to care were monitored ? throughout the procedure. The physical status of the ? patient was re-assessed aft er the procedure. ? After obtaining informed consent, the colonoscope was ? passed under direct vision. Throughout the procedure, ? the patie nt's blood pressure, pulse, and oxygen ? saturations were monitored continuously. The [id number] ? #[id number] was introduced through the anus and advanced to ? the ileum. The colonoscopy was performed without ? difficulty. The patient tolerated the procedure well. ? The quality of the prep was e xcellent. ? Findings: ? The digital rectal exam was normal. Multi ple small-mouthed diverticula ? were found in the sigmoid colon. The rect um, descending colon, splenic ? flexure, transverse colon, hepatic flexure, ascending colon, cecum, ? ileocecal valve and ileum appeared normal . The retroflexed view of the ? anal verge was normal and showed no anal or rec cristo abnormalities. The ? terminal ileum appeared normal. ? Impression: ?- Diverticulosis sigmoid colon. ? - The rectum, descending colon, splenic flexure, ? transverse colon, hepatic flexure, ascending colon, ? cecum, ileocecal valve and terminal ileum are normal. ? - The terminal ileum is clair l. Recommendation: ?- Discharge patient to home (ambulat ory). ? - Repeat colonoscopy in 4 years for surveillance. ? - Return to primary care phys ician PRN. ? Yecenia Parsons M.D Wade Parsons MD Signed Date: 03/10/2008 9:40 AM Number of Addenda: 0 I was physically present for the entire viewing portion of t he exam. Note initiated on 03/10/2008 9:05 AM COLONOSCOPY RADIOLOGY RESULTS Specimen (Source) Anatomical Collection Method Collection Time Re ceived Time Location / / Volume Laterality 03/10/2008 9:05 AM BISQUE KILN DRAWER Nasir Velazquez MD PROCEDURES Performing Organization Address City/State/ZIP Code Phon e Number RADIOLOGY RESULTS documented in this encounter Visit Diagnoses Not on filedocumented in this encounter Care Teams Security System Administrator Relationship Specialty Start Date End Date Nasir Velazquez MD PCP - General 02/18/99 10/06/13 [facility] [address] [place] [address] documented as of this encounter
--- OUTSIDE RECORDS SUMMARY | 2021-11-04 10:40 | XMS_ITS | Encounter Summary ---
:1945 Author Organization [place] Address [address] [facility] [place] [address] Care Team Providers Name Role Phone Nasir Velazquez MD Primary Care Provider [phone] Reason for Visit Reason Comments URI fever, sick since this wknd, sinus and face pressure, developed cough, has chills, last night he coughe d and described pains in his chest. 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 documented as of this encounter Last Filed Vital Signs Vital Sign Reading Time Taken Comments Blood Pressure 112/71 03/26/2006 2:00 PM CHALK CUTTER Pulse 92 03/26/2006 2:00 PM CHALK CUTTER Temperature 37.4 ??C (99.3 ??F) 03/26/2006 2:00 PM CHALK CUTTER Respiratory Rate - - Oxygen Saturation 94% 03/26/2006 2:00 PM CHALK CUTTER Inhaled Oxygen Concentration - - Weight 88 kg (194 lb) 03/26/2006 2:00 PM CHALK CUTTER Height 177.8 cm (5' 10) 03/26/2006 2:00 PM CHALK CUTTER Body Mass Index 27.84 03/26/2006 2:00 PM CHALK CUTTER documented in this encounter Progress Notes Marlene Carreno - 03/26/2006 2:17 PM CST SUBJECTIVE: This is a 60 year old male with uri Sunday with headache and pain at nasal bridge, muscleaches, chills, last night chest hurts with coughing and deep breathing, last week had stress chest done and ekg done, ok, some fevers, some chills, cough-with some phlem, not a smoker, no sick exposures. Pt also reported it has been about week, heis having pain on left side of chest,more so with breathing deep and now with coughing for last few days. No gi issues. No skin rash, no jointaches Pt denies any heavy lifting,pushing ,pulling etc. Past Medical History Diagnosis Date ??? BENIGN HYPERTENSION 12/30/2002 ??? FLATUL/ERUCTAT/GAS PAIN 03/25/2002 Past Surgical History Procedure Date ??? No history of surgery ??? Eye exam established pt 2003 ??? Colonoscopy 2002 Current outpatient prescriptions Medication Sig ??? ROBITUSSIN A-C 10-100 MG/5ML OR SYRP ONE TO TWO TEASPOONS EVER 4 HOURS, NEEDED FOR COUGH ??? DOXAZOSIN MESYLATE 4 MG OR TABS 1 TABLET DAILY ??? LIPITOR 10 MG OR TABS 1 tab PO QD (Once per day) ??? NEXIUM 40 MG OR CPDR 1 CAPSULE DAILY ??? HYDROCHLOROTHIAZIDE 25 MG OR TABS 1 TAB PO QD (Once per day) ??? ASPIRIN NOT PRESCRIBED (INTENTIONAL) due to exacerbation of heartburn. Hx of Duodenal ulcer OBJECTIVE: Blood pressure 112/71, pulse 92, temperature 99.3, temperature source Oral, height 5' 10 (1.78 m), weight 194 lbs (88.0 kg), sao2 94%. EXAM: Constitutional: healthy, alert and no distress Head: Normocephalic. No masses, lesions, tenderness or abnormalities Neck: Neck supple. No adenopathy. Thyroid symmetric, normal size, ENT: jane TM-clear, nose with congestion, throat-clear Cardiovascular: negative Respiratory: negative Integument: no Rashes ASSESSMENT: This is a 60 year old male 786.2 COUGH (primary encounter diagnosis) Note: Plan: CHEST X-RAY 2 VW, ROBITUSSIN A-C 10-100 MG/5ML OR SYRP Pt's weight seems to be increased quite a bit since last visit, cxr-with pul edema, will await for rads report, i will notify pt with report, his lungs sounds clear, will not start lasix, check BNP.pthas phx of smoking. In regards to his other uri gymptoms, likely viral, we talked about possible flu, he has this for last 3 days, not a candidate for antiflu medication, pt was Offered flu testing, i recommend Supportive/symptomatic cares, push fluids and liquids. Follow up if no improvement and/or still having problems and/or any worsening Recommend HCM if not uptodate. Marlene Carreno MD K CUTTER documented in this encounter Nursing Notes 03/26/2006 2:00 PM CST >> ZACH DANIELSON 03/26/2006 2:04 pm Patient presents with: URI - fever, sick since this wknd, sinus and face pressure, developed cough, has chills, last nighthe coughed and described pains in his chest. Lo Gordon Winston presents for above. Initial BP 112/71 Pulse 92 Temp (Src) 99.3 (Oral) Ht 5' 10 (1.78m) Wt 194 lbs (88.0kg) SaO2 94% Body mass index is 27.84 kg/(m^2).. BP completed using cuff size: regular Zach Danielson documented in this encounter Plan of Treatment Not on filedocumented as of this encounter Procedures Procedure Name Priority Date/Time Associated Diagnosis Comme nts HCL NT-PROBNPBNP Routine 03/26/2006 2:38 PM Cough Resul ts for this CHALK CUTTER procedure are i n the results section. HC CHEST TWO VIEWS, Routine 03/26/2006 Cough Results for this FRONT/LAT procedure are i n the results section. documented in this encounter Results (ABNORMAL) N-TERMINAL PRO BNP (03/26/2006 2:38 PM CHALK CUTTER) P athologist Signature N-Terminal Pro 273 (H) 0.0 - [facility] Bnp 125.0 RARITAN pg/mL [facility] Comment: Reference ranges shown and results sienna ed as abnormal are for outpatient settings. Establishing a baseline value for each individual patient is useful for follow-up. Suggested inpatient cut points for confirming diagnosis of CHF are: ?>450 pg/mL (age less than 50) ?>900 pg/mL (age 50-75) ?>1800 pg/mL (greater than 75 yr s). An inpatient or emergency department NT -proBNP <300 pg/mL effectively rules out acute CHF, with 99% negative predictive value. Specimen Anatomical Collection Method Collection Time Receive d Time (Source) Location / / Volume Laterality 03/26/2006 2:38 PM 7 2:39 CHALK CUTTER PM CHALK CUTTER Marlene Carreno MD LABORATORY Performing Organization Address City/State/ZIP Code Phon e Number [facility] [address] [place], [place] [id number] [place] [address] LABS CHEST X-RAY 2 VW (03/26/2006) Anatomical Region Laterality Modality Other Impressions 03/26/2006 REPORT OF OUTSIDE FILMS FROM [facility] : ??45 PA AND LEFT LATERAL CHEST: ?? 03/26/06 FINDINGS: ??Possible slightly greater th an 1 cm nodule noted superimposed upon the anterior aspect le ft fifth rib. ??Recommend a repeat chest film, non-rotated and/or review of any old films. Thin cut CT could of course be obtained. ??Otherwise normal chest. CONCLUSION: ??Possible low density great er than 1 cm nodule superimposed upon the left fifth anterio r rib. ??Recommend review of any old films and/or follow up with a non-rotated PA chest or CT. Adam Higgins M.D./jude D/T: ??03/28/06 ?? Ordering MD/Provider Initial Interpretat ion: Normal/Negative. Electronically filed by Zach Danielson ??03/26/2006 ??5:01 PM Marlene Carreno MD GENERAL IMAGING documented in this encounter Visit Diagnoses Diagnosis Cough - Primary documented in this encounter Care Teams Panel Raiser Operator Relationship Specialty Start Date End Date Nasir Velazquez MD PCP - General 02/18/99 10/06/13 [facility] [address] [place] [address] documented as of this encounter
--- OUTSIDE RECORDS SUMMARY | 2021-11-04 10:40 | XMS_ITS | Encounter Summary ---
:1945 Author Organization [place] Address [facility] [place] [address] Care Team Providers Name Role Phone Nasir Velazquez MD Primary Care Provider [phone] Reason for Visit Reason Onset Date Comments Call Back 03/29/2006 Encounter Details Date Type Department Care Team Description 03/29/2006 Telephone [facility] Yecenia Carreno MD Call Back [address] [address] [place] [address] (Wo rk) Social History Tobacco Use Types Packs/Day Years Used Date Former Smoker Quit: 02/05/18 85 Alcohol Use Standard Drinks/Week Comments Yes 1.7 (1 standard drink = 0.6 oz pure alco hol) socially Sex Assigned at Date Recorded Male 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 pt to call me back in 3 months for repeat CXR for follow up. Marlene Carreno MD ICAL MEDICINE TEACHER Telephone Encounter - SilvinoJenay - 03/29/2006 10:24 AM CST Pt returned your call from yesterday. He can be reached at [phone] when you get a chance. Phoenix Dubois RADIO SCRIPT WRITER ICAL MEDICINE TEACHER documented in this encounter Plan of Treatment Not on filedocumented as of this encounter Visit Diagnoses Diagnosis Cough - Primary documented in this encounter Care Teams Logistics Specialist Relationship Specialty Start Date End Date Nasir Velazquez MD PCP - General 02/18/99 10/06/[address] [address] documented as of this encounter
--- OUTSIDE RECORDS SUMMARY | 2021-11-04 10:40 | XMS_ITS | Encounter Summary ---
:1945 Author Organization [place] Address [facility] [place] [address] Care Team Providers Name Role Phone Nasir Velazquez MD Primary Care Provider [phone] Reason for Visit Reason Onset Date Comments Refill Request 04/15/2007 several meds Encounter Details Date Type Department Care Team Description 04/15/2007 Refill [facility] Nasir Velazquez Refill Request (several [facility] [place] MD Geraldo meds) [address] [place], [place] [address] [facility] [address] [facility] [phone] [place] [address] (Wo rk) Social History Tobacco Use Types Packs/Day Years Used Date Former Smoker Quit: 02/05/18 85 Alcohol Use Standard Drinks/Week Comments Yes 1.7 (1 standard drink = 0.6 oz pure alco hol) socially Sex Assigned at Date Recorded Male 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 Sharri Tavera RN POTASSIUM 3.7 04/08/2007 CR 1.16 04/08/2007 Last 2 BP Readings: Date: BP: 04/08/2007 114/78 07/04/2006 110/80 Lab Test 04/08/07 03/12/06 CHOL 169 161 HDL 41 39* LDL 91 77 TRIG 188* 228* CHOLHDLRATIO 4.2 4.2 AST 31 09/06/2005 ALT 45 04/08/2007 Telephone Encounter - Zach Chan - 04/15/2007 1:53 PM CDT Staff Message copied by ZACH HAMILTON on 04/15/2007 at 1:53 PM ------ Message from: EDYTA MUNSON Created: 04/15/2007 at 1:26 PM Regarding: Rx's/Marcus Contact: Carlos needs his Rx's to go thru [facility], the fax is [phone]. The meds are Doxazosin, Hydrochlorothiazide, Omeprazole, Omeprazole, Simvastatin. Carlos can be reached at [phone]. DL 3-10@1:42pm documented in this encounter Plan of Treatment Not on filedocumented as of this encounter Visit Diagnoses Diagnosis HYPERTROPHY of PROSTATE Hypertrophy of prostate without urinary obstruction and other lower urinary tract symptoms (LUTS) Essential hypertension, benign Esophageal reflux Mixed hyperlipidemia documented in this encounter Care Teams Vice President Education Relationship Specialty Start Date End Date Nasir Velazquez MD PCP - General 02/18/99 10/06/13 [id number] [place] [address] documented as of this encounter
--- OUTSIDE RECORDS SUMMARY | 2021-11-04 10:40 | XMS_ITS | Encounter Summary ---
:1945 Author Organization [place] Address [address] [facility] 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 CL AFF A.M.A. LIPID Routine 09/06/2005 10:01 Mixed Hyper lipidemia Results for this PANEL AM CDT Benign Hypertension procedur e are in the results section. documented in this encounter Results A.M.A. COMPREHENSIVE MET.PANEL (09/06/2005 10:01 AM CDT) P athologist Signature Sodium 140 133 - 144 [facility] mmol/L [facility] Potassium 3.4 3.4 - 5.3 [facility] mmol/L [facility] Chloride 103 94 - 109 [facility] mmol/L [facility] Carbon Dioxide 28 20 - 32 [facility] mmol/L [facility] Anion Gap 9 6 - 17 [facility] mmol/L [facility] Glucose 105 60 - 110 [facility] mg[facility]dL [facility] Urea Nitrogen 17 7 - 30 [facility] mg/dL [facility] Creatinine 1.10 0.80 - [facility] 1.50 mg/dL [facility] GFR Estimate 73 >60 [facility] mL/min/1.7 [facility] m2 GFR Estimate If 88 >60 [facility] Black mL/min/1.7 [facility] m2 Calcium 9.0 8.5 - 10.4 [facility] mg/dL [facility] Bilirubin Total 0.4 0.2 - 1.3 [facility] mg/dL [facility] Albumin 4.2 3.2 - 4.5 [facility] g/dL [facility] Protein Total 7.5 6.0 - 8.2 [facility] g/dL [facility] Alkaline 120 40 - 150 [facility] Phosphatase U/L [facility] ALT 34 0 - 70 U/L [facility] AST 31 0 - 55 U/L [facility] Specimen Anatomical Collection Method Collection Time Receive d Time (Source) Location / / Volume Laterality 09/06/2005 10:01 09/06/2005 AM CDT 10:03 AM CDT Diogo Velazquez MD LABORATORY Performing Organization Address City/State/ZIP Code Phon e Number [facility] [address] [place] [address] [facility] (ABNORMAL) A.M.A. LIPID PANEL (09/06/2005 10:01 AM CDT) athologist Signature Cholesterol 143 0 - 200 [facility] mg/dL CLINIC LAB Comment: LDL Cholesterol is the primary guide to therapy: LDL-cholesterol goal in high risk patients is <100 mg/dL and in very high risk patients is <70 mg/dL. The NCEP recommends further evaluation of: patients with cholesterol <200 mg/dL if additional risk factors are present, cholesterol >240 mg/dL, triglycerides >150 mg/dL, or HDL <40 mg/dL. Triglycerides 186 (H) 0 - 150 mg/dL [facility] HDL Cholesterol 38 (L) 40 - 110 mg/dL [facility] LDL Cholesterol Calculated 68 0 - 129 mg/dL [facility] Comment: LDL Cholesterol is the primary guide to therapy: LDL-cholesterol goal in high risk patients is <100 mg/dL and in very high risk patients is <70 mg/dL. VLDL-Cholesterol 37 (H) 0 - 30 mg/dL [facility] Cholesterol/HDL Ratio 3.8 0.0 - 5.0 [facility] Specimen Anatomical Collection Method Collection Time Receive d Time (Source) Location / / Volume Laterality 09/06/2005 10:01 09/06/2005 AM CDT 10:03 AM CDT Diogo Velazquez MD LABORATORY Performing Organization Address City/State/ZIP Code Phon e Number [facility] [address] [place] [address] [facility] documented in this encounter Visit Diagnoses Diagnosis Mixed hyperlipidemia Essential hypertension, benign documented in this encounter Care Teams Screen Roller Relationship Specialty Start Date End Date Nasir Velazquez MD PCP - General 02/18/99 10/06/13 [facility] [address] [place] [address] documented as of this encounter
--- OUTSIDE RECORDS SUMMARY | 2021-11-04 10:40 | XMS_ITS | Encounter Summary ---
:1945 Author Organization [place] Address [facility] [place] [address] Care Team Providers Name Role Phone Nasir Velazquez MD Primary Care Provider [phone] Encounter Details Date Type Department Care Team Description 07/24/2005 Historic Fiber Technician INTERFACED REPORT Ingris Arroyo MD [facility] [address] [place], [place] [address] (Wo rk) Social History Tobacco Use Types Packs/Day Years Used Date Former Smoker Quit: 02/05/18 85 Alcohol Use Standard Drinks/Week Comments Yes 1.7 (1 standard drink = 0.6 oz pure alco hol) socially Sex Assigned at Date Recorded Male 01/15/2018 11:39 PM ART MANAGER documented as of this encounter Progress Notes Blayne Arroyo MD - 01/10/2011 10:49 PM ART MANAGER PRELIMINARY SLEEP STUDY INDICATIONS: Snoring, excessive daytime sleepiness. Lo Neumann's study represents split night study. During the diagnostic portion of the study, the patient slept 143 minutes. Sleep efficiency was 78%. Sleep latency 16 minutes. REM latency 63 minutes. Sleep architecture reveals fairly normal sleep stage distribution and moderate sleep fragmentation. During the diagnostic portion of the study, the patient was documented to have obstructive sleep apnea. Respiratory disturbance index 34. Apnea-hypopnea index 33. Saturation becki was 79%. Nasal CPAP was applied to eliminate obstructive events. CPAP was applied and titrated. effective pressure. Eventually patient went into REM sleep in the lateral position. It appears 13 cm was effective at this pressure. Unable to determine effective pressure in supine position in REM sleep. Of note, the hypoxia resolved with CPAP in place in REM and lateral position. There were no significant leg movements noted. Cardiac rhythm was normal sinus. AXIS A: Obstructive sleep apnea. AXIS B: Comprehensive polysomnography with CPAP titration. CLINICAL CORRELATION AND RECOMMENDATIONS: The patient's findings of obstructive sleep apnea warrant intervention. Further titration of the CPAP in the supine position may be necessary. Follow-up in the [facility]ordered [facility] to discuss these findings. BLAYNE ARROYO MD MT: tai Name: LO NEUMANN Account: [id number] : 1945 Visit Date: 07/24/2005 Document: [id number] cc: Diogo Velazquez MD MANAGER documented in this encounter Plan of Treatment Not on filedocumented as of this encounter Visit Diagnoses Not on filedocumented in this encounter Care Teams Tennis Coach Relationship Specialty Start Date End Date Nasir Velazquez MD PCP - General 02/18/99 10/06/13 [facility] [address] [place] [address] documented as of this encounter
--- OUTSIDE RECORDS SUMMARY | 2021-11-04 10:40 | XMS_ITS | Encounter Summary ---
:1945 Author Organization [place] Address [facility] [address] Care Team Providers Name Role Phone Nasir Velazquez MD Primary Care Provider [phone] Reason for Visit Reason Comments RECHECK F/U FROM LAB WORK Encounter Details Date Type Department Care Team Description 09/12/2005 Office Visit [facility] Nasir Velazquez HYPERT ROPHY of PROSTATE ; [facility] [place] MD Geraldo BENIGN HYPERTENSION; [address] [facility] MIXED HYPERLIPIDEMIA; [place], [place] CLINIC ESOPHAGEAL REFLUX [phone] [phone] [place] [address] (Wo rk) Social History Tobacco Use Types Packs/Day Years Used Date Former Smoker Quit: 02/05/18 85 Alcohol Use Standard Drinks/Week Comments Yes 1.7 (1 standard drink = 0.6 oz pure alco hol) socially Sex Assigned at Date Recorded Male 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 documented as of this encounter Last Filed Vital Signs Vital Sign Reading Time Taken Comments Blood Pressure 130/72 09/12/2005 3:30 PM CDT Pulse 69 09/12/2005 3:30 PM CDT Temperature 36.8 ??C (98.2 ??F) 09/12/2005 3:30 PM CDT Respiratory Rate - - Oxygen Saturation 97% 09/12/2005 3:30 PM CDT Inhaled Oxygen Concentration - - Weight 84.8 kg (187 lb) 09/12/2005 3:30 PM CDT Height 177.8 cm (5' 10) 09/12/2005 3:30 PM CDT Body Mass Index 26.83 09/12/2005 3:30 PM CDT documented in this encounter Progress Notes Nasir Velazquez - 09/22/2005 1:41 PM CDT Terry Montero is a 60 year old male who presents for evaluation of: 1. hyperlipidemia - discuss recent results. Lab Test 09/06/05 02/01/05 CHOL 143 165 HDL 38* 51 LDL 68 91 TRIG 186* 117 CHOLHDLRATIO 3.8 3.2 2. hypertension - currently well controlled on current regimen. OBJECTIVE: BP 130/72 Pulse 69 Temp (Src) 98.2 (Oral) Ht 5' 10 (1.78m) Wt 187 lbs (84.8kg) SaO2 97% GENERAL APPEARANCE: healthy, alert and no distress HENT: oropharynx is unremarkable, without tonsilar hypertrophy or erythema. NECK: no adenopathy, no asymmetry, masses, or scars and thyroid normal to palpation RESP: lungs clear to auscultation - no rales, rhonchi or wheezes CV: regular rates and rhythm, normal S1 S2, no S3 or S4 and no murmur, click or rub - Assessment/Plan: 600.00 HYPERTROPHY of PROSTATE Note: Plan: DOXAZOSIN MESYLATE 4 MG OR TABS well controlled, continue current regimen 401.1 BENIGN HYPERTENSION Note: Plan: HYDROCHLOROTHIAZIDE 25 MG OR TABS Generally well controlled. Will continue to work on diet and aerobic exercise, weight loss. Had extensive discussion regarding ASA therapy and risk of recurrent PUD. He has a fairly convincing story for PUD lingering for years prior to PrevPac treatment. See MyChart discussion following this visit. 272.2 MIXED HYPERLIPIDEMIA Note: Plan: LIPITOR 10 MG OR TABS most recent labs show excellent control except for his triglycerides. improvements in diet and aerobic exercise should help this as well. Recheck in 12 months. 530.81 ESOPHAGEAL REFLUX Note: Plan: NEXIUM 40 MG OR CPDR well controlled, continue current regimen. documented in this encounter Nursing Notes 09/12/2005 3:30 PM CDT >> ZACH DANIELSON 09/12/2005 3:37 pm Patient presents with: RECHECK - F/U FROM LAB WORK Terry Montero presents for above. Initial BP 130/72 Pulse 69 Temp (Src) 98.2 (Oral) Ht 5' 10 (1.78m) Wt 187 lbs (84.8kg) SaO2 97% Body mass index is 26.83 kg/(m^2).. BP completed using cuff size: regular Zach Danielson documented in this encounter Plan of Treatment Not on filedocumented as of this encounter Visit Diagnoses Diagnosis HYPERTROPHY of PROSTATE Hypertrophy of prostate without urinary obstruction and other lower urinary tract symptoms (LUTS) Essential hypertension, benign Mixed hyperlipidemia ESOPHAGEAL REFLUX Esophageal reflux documented in this encounter Care Teams Blasting Gang Miner Relationship Specialty Start Date End Date Nasir Velazquez MD PCP - General 02/18/99 10/06/[address] [address] documented as of this encounter
--- OUTSIDE RECORDS SUMMARY | 2021-11-04 10:40 | XMS_ITS | Encounter Summary ---
:1945 Author Organization [place] Address [facility] [address] Care Team Providers Name Role Phone Nasir Velazquez MD Primary Care Provider [phone] Reason for Visit Reason Onset Date Comments Orders 03/09/2006 Encounter Details Date Type Department Care Team Description 03/09/2006 Telephone [facility] [place] [address] [place] [address] [address] [facility] [phone] 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 VISION DIRECTOR Telephone Encounter - Phoenix Dubois - 03/09/2006 11:55 AM CST Pt called would like to have his cholesterol checked. Has an appt 03-12-06 may need new orders. Will schedule and appt to see you a few days after. Phoenix Dubois CMA VISION DIRECTOR documented in this encounter Plan of Treatment Not on filedocumented as of this encounter Visit Diagnoses Diagnosis Mixed hyperlipidemia - Primary documented in this encounter Care Teams Train Gate Attendant Relationship Specialty Start Date End Date Nasir Velazquez MD PCP - General 02/18/99 10/06/13 [facility] [address] [place] [address] documented as of this encounter
--- OUTSIDE RECORDS SUMMARY | 2021-11-04 10:40 | XMS_ITS | Encounter Summary ---
:1945 Author Organization [place] Address [address] [facility] [place] [address] Care Team Providers Name Role Phone Nasir Velazquez MD Primary Care Provider [phone] Encounter Details Date Type Department Care Team Description 08/11/[address] [facility] Lesa Velazquez 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
--- OUTSIDE RECORDS SUMMARY | 2021-11-04 10:40 | XMS_ITS | Encounter Summary ---
:1945 Author Organization [place] Address [facility] [place] [address] Care Team Providers Name Role Phone Nasir Velazquez MD Primary Care Provider [phone] Reason for Visit Reason Comments RECHECK Recheck lungs Encounter Details Date Type Department Care Team Description 06/25/2006 Office Visit [facility] Nasir Velazquez OTHER LUNG DISEASE Clinic [place] MD Geraldo NEC (Primary Dx) [address] [place], [place] CLINIC [address] [address] [facility] [phone] [place] [address] (Wo rk) Social History Tobacco Use Types Packs/Day Years Used Date Former Smoker Quit: 02/05/18 85 Alcohol Use Standard Drinks/Week Comments Yes 1.7 (1 standard drink = 0.6 oz pure alco hol) socially Sex Assigned at Date Recorded Male 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 follow up on nodule seen on CXR 3 months ago. He has no symptoms of lung disease or cancer. No cough, shortness of breath, weight loss, fatigue, night sweats. There has been no significant fever. OBJECTIVE: BP 128/80 Pulse 63 Temp (Src) 98.5 (Oral) Ht 5' 10 (1.78m) Wt 188 lbs (85.3kg) GENERAL APPEARANCE: healthy, alert and no distress HEENT: oropharynx is unremarkable, without erythema or tonsillar hypertrophy NECK: no adenopathy, no asymmetry or masses RESP: lungs clear to auscultation - no rales, rhonchi or wheezes CV: regular rates and rhythm, normal S1 S2, no S3 or S4 and no murmur, click or rub - CXR: negative. Will await Radiologist overread.. Assessment/Plan: 518.89 OTHER LUNG DISEASE NEC (primary encounter diagnosis) Note: Plan: CHEST X-RAY 2 VW No clinical evidence of cancer or lung disease. Will await Radiologist overread. Plan accordingly. documented in this encounter Nursing Notes 06/25/2006 3:00 PM CDT >> PHOENIX DUBOIS 06/25/2006 3:05 pm Terry Montero presents for as above. Initial BP 128/80 Pulse 63 Temp (Src) 98.5 (Oral) Ht 5' 10 (1.78m) Wt 188 lbs (85.3kg) Bodymass index is 26.98 kg/(m^2).. BP completed using cuff size: regular Phoenix Dubois MANUFACTURING TECHNOLOGY ANALYST documented in this encounter Plan of Treatment Not on filedocumented as of this encounter Procedures Procedure Name Priority Date/Time Associated Diagnosis Comme nts HC CHEST TWO VIEWS, Routine 06/25/2006 3:31 PM Other diseases of Results for this FRONT/LAT CDT lung, not elsewhere procedur e are in classified the results section. documented in this encounter Results CHEST X-RAY 2 VW (06/25/2006 3:31 PM CDT) Anatomical Region Laterality Modality Other Specimen (Source) Anatomical Collection Method Collection Time Re ceived Time Location / / Volume Laterality 06/25/2006 3:31 PM CDT Impressions 06/28/2006 10:47 AM CDT Addendum Begins ADDENDUM: ?Compared to prior film da esperanza 03/26/2006 the faint nodular opacity in the left lower lobe appears t o be superimposed over the posterior left 8th rib. Correlate with c hest CT for confirmation. Addendum Ends EXAM: ??CHEST TWO VIEW* HISTORY: ??OTHER LUNG DISEASE NEC, FINDINGS: Negative. Nasir Velazquez MD GENERAL IMAGING documented in this encounter Visit Diagnoses Diagnosis Other diseases of lung, not elsewhere cl assified - Primary documented in this encounter Care Teams Squeegeer And Former Relationship Specialty Start Date End Date Nasir Velazquez MD PCP - General 02/18/99 10/06/13 [facility] [address] [place] [address] documented as of this encounter
--- OUTSIDE RECORDS SUMMARY | 2021-11-04 10:40 | XMS_ITS | Encounter Summary ---
:1945 Author Organization [place] Address [address] [facility] [place] [address] Care Team Providers Name Role Phone Nasir Velazquez MD Primary Care Provider [phone] Reason for Visit Reason Comments Physical PX, discuss PSA, HX in famil y Encounter Details Date Type Department Care Team Description 04/08/2007 Office Visit [facility] Nasir Velazquez ROUTIN E MEDICAL EXAM (Primary Dx); Clinic Candy Chow MD BENIGN HYPERTENSION; [address] [facility] LEXCHAITANYA SCREENING MAL NEOP-PROSTATE; [place], [place] CLINIC MIXED HYPERLIPIDEMIA; [phone] [address] SCREENING-DIABETES MELLITUS; [phone] CERVICALGIA; [place], [place] OTHER LUNG DISEASE NEC; [address] HYPERTROPHY of PROSTATE ; [phone] (Wo rk) ESOPHAGEAL REFLUX Social History Tobacco Use Types Packs/Day Years Used Date Former Smoker Quit: 02/05/18 85 Alcohol Use Standard Drinks/Week Comments Yes 1.7 (1 standard drink = 0.6 oz pure alco hol) socially Sex Assigned at Date Recorded Male 01/15/2018 11:39 PM 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 documented as of this encounter Last Filed Vital Signs Vital Sign Reading Time Taken Comments Blood Pressure 114/78 04/08/2007 9:30 AM 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 Pulse 60 04/08/2007 9:30 AM 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 Temperature 36.7 ??C (98.1 ??F) 04/08/2007 9:30 AM 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 Respiratory Rate - - Oxygen Saturation 95% 04/08/2007 9:30 AM 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 Inhaled Oxygen Concentration - - Weight 87.5 kg (193 lb) 04/08/2007 9:30 AM 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 Height 175.3 cm (5' 9) 04/08/2007 9:30 AM 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 Body Mass Index 28.5 04/08/2007 9:30 AM 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 documented in this encounter Progress Notes Nasir Velazquez - 04/08/2007 9:49 AM CST SUBJECTIVE: CC: Terry Montero is a 61 year old male who presents for routine medical examination HPI: 1. follow up chest CT scan - needs repeat due to ground glass infiltrate seen on previous study HISTORIES: PROBLEM LIST: Patient Active Problem List [...] Years of Education: 15 Occupational History ??? [employer],[address] [place] [address] Social History Main Topics ??? Tobacco Use: [...] in old age ??? C.A.D. Maternal Uncle CT ??? Colon CA Maternal Uncle ??? Prostatic CA Paternal Grandfather 84 ??? Prostatic CA Other Cousin ??? Heart Brother stent - 66 ??? Prostatic CA Brother no cancer, but a produre due reduce the prostate HEALTH MAINTENANCE: Health Maintenance Topic Date Due ??? Colonoscopy q5 yr. 11/29/2007 ??? Ldl q 5 yrs 03/13/2011 ??? Psa q1 yr 07/06/2007 ??? Tetanus q10 yr 04/13/2008 REVIEW OF [...] changes in mood or affect EXAM: BP 114/78 Pulse 60 Temp (Src) 98.1 (Oral) Ht 5' 9 (1.75m) Wt 193 lbs (87.5kg) SaO2 95% GENERAL APPEARANCE: healthy, alert and no [...] nodes ABD/GI: soft, nontender, without hepatosplenomegaly or masses, bowel sounds normal and no hepatosplenomegaly or masses RECTAL EXAM: Rectum is normal without masses. Prostate normal in size; non- tender, soft, symmetric without nodules. : testicles normal without atrophy or masses, no hernias and penis normal without urethral discharge MS: extremities normal- no gross deformities noted SKIN: no suspicious lesions or rashes NEURO: Normal strength and tone, mentation intact and speech normal PSYCH: mentation appears normal and affect normal/bright ASSESSMENT/PLAN V70.0 ROUTINE MEDICAL EXAM (primary encounter diagnosis) Note: Plan: Discussed diet and aerobic exercise. See other preventative health recommendations in orders. 401.1 BENIGN HYPERTENSION Note: Plan: A.M.A. BASIC METABOLIC PANEL, MICROALBUMIN (INC URINE CREAT), CREATININE, URINE, HYDROCHLOROTHIAZIDE 25 MG OR TABS blood pressure adequately well controlled. continue current regimen V76.44 SCREENING MAL NEOP-PROSTATE Note: Plan: PROSTATE SPEC ANTIGEN,SCREEN 272.2 MIXED HYPERLIPIDEMIA Note: Plan: A.M.A. LIPID PANEL, ALANINE AMINO (ALT) (SGPT), SIMVASTATIN 20 MG OR TABS Change from Lipitor to simvastatin due to cost considerations. WIll have him recheck his cholesterol in 2 months after starting the simvastatin. V77.1 SCREENING-DIABETES MELLITUS Note: Plan: GLUCOSE 723.1 CERVICALGIA Note: Plan: X-RAY CERV SPINE 2 OR 3 VIEW history of abnormality at C4-C5 level. degenerative disc disease. He has not committed to doing hisexercises in the past- he plans to start now. Will refer to [facility] if his symptoms do not improve with home exercises within approximately 4 weeks. 518.89 OTHER LUNG DISEASE NEC Note: Plan: CT SCAN CHEST referral for CT scan given to follow up on past finding. 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 He will continue his doxazosin for the time being. 530.81 ESOPHAGEAL REFLUX Note: Plan: OMEPRAZOLE 20 MG OR CPDR Change from Nexium to omeprazole for cost reasons. Discussed medication use, dosing, and possible side effects. Patient will call if symptoms are not as well controlled. ION PLATE ROLLER HAND documented in this encounter Nursing Notes 04/08/2007 9:30 AM CST >> ALEXANDRIA GRACIA 04/08/2007 9:44 am Patient presents with: Physical - PX, discuss PSA, HX in family Terry Montero presents for as above. Initial BP 114/78 Pulse 60 Temp (Src) 98.1 (Oral) Ht 5' 9 (1.75m) Wt 193 lbs (87.5kg) SaO2 95% Body mass index is 28.49 kg/(m^2).. BP completed using cuff size: regular Alexandria Garcia DOUBLE SURFACE OPERATOR documented in this encounter Plan of Treatment Not on filedocumented as of this encounter Procedures Procedure Name Priority Date/Time Associated Diagnosis Comme nts HC CT THORAX W/O Routine 04/11/2007 11:12 Other diseases of chidi ng, Results for this CONT AM 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 not elsewhere procedure are in classified the results section. HC X-RAY CERV Routine 04/08/2007 10:22 Cervicalgia Results fo r this SPINE 2-3 VIEWS AM 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 procedure ar e in the results section. CREATININE, URINE Routine 04/08/2007 10:19 Benign Hypertension Results for this AM 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 procedure are i n the results section. HCL PROSTATE SPEC Routine 04/08/2007 10:19 Screening Mal Resul ts for this ANTIGEN,SCREEN AM 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 Neop-Prostate procedure ar e in the results section. HCL BASIC Routine 04/08/2007 10:19 Benign Hypertension Resu lts for this METABOLIC PANEL AM 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 procedure ar e in the results section. HCL ALBUMIN URINE Routine 04/08/2007 10:19 Benign Hypertension Results for this (INC CREAT) AM 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 procedure are i n the results section. HCL ALT Routine 04/08/2007 10:19 Mixed Hyperlipidemia Res ults for this AM 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 procedure are i n the results section. CL AFF A.M.A. Routine 04/08/2007 10:19 Mixed Hyperlipidemia Re sults for this LIPID PANEL AM 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 procedure are i n the results section. documented in this encounter Results CT SCAN CHEST (04/11/2007 11:12 AM 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) Anatomical Region Laterality Modality Other Specimen (Source) Anatomical Collection Method Collection Time Re ceived Time Location / / Volume Laterality 04/11/2007 11:12 AM 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 Impressions 04/11/2007 11:33 AM 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 CT CHEST FOR NODULE HISTORY: ??Pulmonary nodule. TECHNIQUE: Volumetric acquisition of CT images from the lung apices through the upper abdomen. COMPARISION: January 14, 2007. July 09, 2006. FINDINGS: ??Stable tiny nodule in the le ft upper lobe which appears to be postinflammatory. The ill-defined foc al area of ground glass infiltrate seen in the right upper lobe on the previous exam has resolved with a remaining 3 mm nodule at the site most likely granuloma associated with infection. Shari gs are otherwise clear. Coronary artery calcifications. Chest ot herwise unremarkable. IMPRESSION: Stable 3 mm nodule in the le ft upper lobe. Focal area of infiltrate seen in the right upper lobe on the previous exam has resolved with a resulting 3 mm nodule, m ost likely a small granuloma. Followup scan in 6 to 12 months recommen ded. Coronary artery calcifications. Nasir Velazquez MD SPECIAL IMAGING STUDIES X-RAY CERV SPINE 2 OR 3 VIEW (04/08/2007 10:22 AM 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) Anatomical Region Laterality Modality Other Specimen (Source) Anatomical Collection Method Collection Time Re ceived Time Location / / Volume Laterality 04/08/2007 10:22 AM 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 Impressions 04/08/2007 10:44 AM 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 CERVICAL SPINE 2-3 VW* HISTORY: Pain FINDINGS: Degenerative disc disease at t he C3 and C5 levels. Degenerative facet disease throughout th e cervical spine. Exam otherwise negative. Nasir Velazquez MD GENERAL IMAGING CREATININE, URINE (04/08/2007 10:19 AM 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) P athologist Signature Creatinine 191 mg/dL [facility] Urine [facility] Specimen Anatomical Collection Method Collection Time Receive d Time (Source) Location / / Volume Laterality 04/08/2007 10:19 04/08/2007 AM 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 10:21 AM 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 Nasir Velazquez MD LABORATORY Performing Organization Address City/State/ZIP Code Phon e Number [facility] [address] [place], [place] [id number] [place] [address] LABS MICROALBUMIN (INC URINE CREAT) (04/08/2007 10:19 AM 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) P athologist Signature Albumin Urine 6 mg/L [facility] mg/L [facility] Albumin Urine 3.09 0 - 20 [facility] mg/g Cr mg/g Cr [facility] Specimen Anatomical Collection Method Collection Time Receive d Time (Source) Location / / Volume Laterality 04/08/2007 10:19 04/08/2007 AM 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 10:21 AM 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 Nasir Velazquez MD LABORATORY Performing Organization Address City/State/ZIP Code Phon e Number [address] [address] [facility] LABS (ABNORMAL) A.M.A. BASIC METABOLIC PANEL (04/08/2007 10:19 AM 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) P athologist Signature Sodium 144 133 - 144 [facility] mmol/L [facility] Potassium 3.7 3.4 - 5.3 [facility] mmol/L [facility] Chloride 102 94 - 109 [facility] mmol/L [facility] Carbon Dioxide 30 20 - 32 [facility] mmol/L [facility] Anion Gap 11 6 - 17 [facility] mmol/L [facility] Glucose 101 (H) 60 - 99 [facility] mg/dL [facility] Urea Nitrogen 17 7 - 30 [facility] mg/dL [facility] Creatinine 1.16 0.80 - [facility] 1.50 mg/dL [facility] GFR Estimate 68 >60 [facility] mL/min/1.7 [facility] m2 LAB GFR Estimate If 82 >60 [facility] mL/min/1.7 [facility] m2 LAB Calcium 9.3 8.5 - 10.4 [facility] mg[facility] Specimen Anatomical Collection Method Collection Time Receive d Time (Source) Location / / Volume Laterality 04/08/2007 10:19 04/08/2007 AM 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 10:21 AM 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 Nasir Velazquez MD LABORATORY Performing Organization Address City/State/ZIP Code Phon e Number [facility] [address] [place] [address] [facility] PROSTATE SPEC ANTIGEN,SCREEN (04/08/2007 10:19 AM 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) P athologist Signature PSA 0.43 0 - 4 ug/L [facility] Specimen Anatomical Collection Method Collection Time Receive d Time (Source) Location / / Volume Laterality 04/08/2007 10:19 04/08/2007 AM 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 10:21 AM 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 Nasir Velazquez MD LABORATORY Performing Organization Address City/State/ZIP Code Phon e Number [facility] [address] [place] [address] [facility] ALANINE AMINO (ALT) (SGPT) (04/08/2007 10:19 AM 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) athologist Signature ALT 45 0 - 70 U/L [facility] Specimen Anatomical Collection Method Collection Time Receive d Time (Source) Location / / Volume Laterality 04/08/2007 10:19 04/08/2007 AM 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 10:21 AM 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 Nasir Velazquez MD LABORATORY Performing Organization Address City/[facility]/ZIP Code Phon e Number [address] [address] [facility] LAB (ABNORMAL) A.M.A. LIPID PANEL (04/08/2007 10:19 AM 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) athologist Signature Cholesterol 169 0 - 200 [facility] mg/dL CLINIC LAB Comment: LDL Cholesterol is the primary guide to therapy: LDL-cholesterol goal in high risk patients is <100 mg/dL and in very high risk patients is <70 mg/dL. The NCEP recommends further evaluation of: patients with cholesterol <200 mg/dL if additional risk factors are present, cholesterol >240 mg/dL, triglycerides >150 mg/dL, or HDL <40 mg/dL. Triglycerides 188 (H) 0 - 150 mg/dL [facility] HDL Cholesterol 41 40 - 110 mg/dL [facility] LDL Cholesterol Calculated 91 0 - 129 mg/dL [facility] Comment: LDL Cholesterol is the primary guide to therapy: LDL-cholesterol goal in high risk patients is <100 mg/dL and in very high risk patients is <70 mg/dL. VLDL-Cholesterol 38 (H) 0 - 30 mg/dL [facility] Cholesterol/HDL Ratio 4.2 0.0 - 5.0 [facility] Specimen Anatomical Collection Method Collection Time Receive d Time (Source) Location / / Volume Laterality 04/08/2007 10:19 04/08/2007 AM 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 10:21 AM 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 Nasir Velazquez MD LABORATORY Performing Organization Address City/State/ZIP Code Phon e Number [facility] [address] [place] [address] [facility] documented in this encounter Visit Diagnoses Diagnosis Routine general medical examination at a health care facility - Primary Essential hypertension, benign Special screening for malignant neoplasm of prostate Mixed hyperlipidemia Screening for diabetes mellitus Cervicalgia Other diseases of lung, not elsewhere cl assified HYPERTROPHY of PROSTATE Hypertrophy of prostate without urinary obstruction and other lower urinary tract symptoms (LUTS) Esophageal reflux documented in this encounter Care Teams Harness Cutter Relationship Specialty Start Date End Date Nasir Velazquez MD PCP - General 02/18/99 10/06/13 [facility] [address] [place] [address] documented as of this encounter
--- OUTSIDE RECORDS SUMMARY | 2021-11-04 10:40 | XMS_ITS | Encounter Summary ---
:1945 Author Organization [place] Address [facility] [place] [address] Care Team Providers Name Role Phone Nasir Velazquez MD Primary Care Provider [phone] Reason for Visit Reason Onset Date Comments Refill Request 09/04/2008 omeprazole Encounter Details Date Type Department Care Team Description 09/04/2008 Refill [facility] Nasir Velazquez Refill Request [facility] MD Geraldo (omeprazole) [address] [address] [facility] [phone] [place], [place] [id number] (Wo rk) Social History Tobacco Use Types Packs/Day Years Used Date Former Smoker Quit: 02/05/18 85 Alcohol Use Standard Drinks/Week Comments Yes 1.7 (1 standard drink = 0.6 oz pure alco hol) socially Sex Assigned at Date Recorded Male 01/15/2018 11:39 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
--- OUTSIDE RECORDS SUMMARY | 2021-11-04 10:40 | XMS_ITS | Encounter Summary ---
:1945 Author Organization [place] Address [facility] [place] [address] Care Team Providers Name Role Phone Nasir Velazquez MD Primary Care Provider [phone] Reason for Referral Specialty Diagnoses / Procedures Referred By Contact Refer red To Contact Pool Mays DPM [address] [place] [address] Referral ID Status Reason Start Date Expiration Date Visits Requ ested Visits Authorized Reason for Visit Reason Comments Musculoskeletal Problem right foot pain across top o f ankle. Sx for 2 years. 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 Velazquez w/ the c/c of rt foot pain. Most painful upon rising in a.m. or after prolonged sitting. Denies history of recent trauma. Has tried changing shoewear and OTC inserts without much success. Pain persisitng over the past 1-2 yrs. PMH, meds, all, PSH, PFH, and soc [...] Schedule fluro guided injection 2nd/3rd TMTjoint w/ Dr. Gilliam. Thank you for the consultation Copy sent documented in this encounter Nursing Notes 11/04/2008 11:00 AM CDT >> ANGELIA GRAFF Wed Nov 04, 2008 11:09 AM Patient presents with: Musculoskeletal Problem - right foot pain across top of ankle. Sx for 2 years. Angelia Graff CMA documented in this encounter Plan of Treatment Not on filedocumented as of this encounter Procedures Procedure Name Priority Date/Time Associated Diagnosis Comme [facility] RT X-RAY FOOT Routine 11/04/2008 11:21 AM Pain in limb Res ults for this 3+ VW CDT procedure are i n the results section. documented in this encounter Results RT X-RAY FOOT 3+ VW (11/04/2008 11:21 AM CDT) Anatomical Region Laterality Modality Other Specimen (Source) Anatomical Collection Method Collection Time Re ceived Time Location / / Volume Laterality 11/04/2008 11:21 AM CDT Impressions 11/05/2008 7:50 AM CDT FOOT G/E 3 VIEWS RIGHT* Nov 04, 2008 11: 21:00 AM HISTORY: Pain. FINDINGS: Prominent hallux valgus deform ity with mild degenerative change. Mild degenerative changes involv ing the midfoot. Exam otherwise negative. Pool Mays DPM GENERAL IMAGING documented in this encounter Visit Diagnoses Diagnosis Pain in limb - Primary Arthralgia Pain in joint, site unspecified Flat foot(734) Flat foot documented in this encounter Care Teams Assembler Utility Buildings Relationship Specialty Start Date End Date Nasir Velazquez MD PCP - General 02/18/99 10/06/13 [facility] [address] [place] [address] documented as of this encounter
--- OUTSIDE RECORDS SUMMARY | 2021-11-04 10:40 | XMS_ITS | Encounter Summary ---
:1945 Author Organization [place] Address [facility] [place] [address] Care Team Providers Name Role Phone Nasir Velazquez MD Primary Care Provider [phone] Reason for Visit Reason Onset Date Comments Refill Request 10/17/2007 Encounter Details Date Type Department Care Team Description 10/17/2007 Refill [facility] Nasir Velazquez, Refill Request Candy SALDIVAR [address] [place] [address] [facility] [phone] [facility] [address] [address] (Wo rk) Social History Tobacco Use Types Packs/Day Years Used Date Former Smoker Quit: 02/05/18 85 Alcohol Use Standard Drinks/Week Comments Yes 1.7 (1 standard drink = 0.6 oz pure alco hol) socially Sex Assigned at Date Recorded Male 01/15/2018 11:39 PM SHUCKER documented as of this encounter Miscellaneous Notes Telephone Encounter - Ling Tavera - 10/17/2007 9:21 AM CDT Rx filled per nursing protocol, to local pharm per pt request. Sharri Tavera RN documented in this encounter Plan of Treatment Not on filedocumented as of this encounter Visit Diagnoses Diagnosis Mixed hyperlipidemia Essential hypertension, benign documented in this encounter Care Teams Video Editing Intern Relationship Specialty Start Date End Date Nasir Velazquez MD PCP - General 02/18/99 10/06/13 [place] [address] [place] [address] documented as of this encounter
--- OUTSIDE RECORDS SUMMARY | 2021-11-04 10:40 | XMS_ITS | Encounter Summary ---
:1945 Author Organization [place] Address [address] [facility] [place] [address] Care Team Providers Name Role Phone Nasir Velazquez MD Primary Care Provider Reason for Referral - Closed Specialty Diagnoses / Procedures Referred By Contact Refer red To Contact Diagnoses Chest pain, unspecified Nasir Velazquez MD [facility] [address] [place], [place] [address] Referral ID Status Reason Start Date Expiration Date Visits Requ ested Visits Authorized [id number] Closed 03/18/2006 02/04/2011 1 1 SQUEAK FILLER Reason for Visit Reason Comments RECHECK lab f/u Pain pt complains of chest pain a dull ache left rib area Refill Request Sinus Problem sinus BARONE x 1 month Encounter Details Date Type Department Care Team Description 03/14/2006 Office Visit [facility] Nasir Velazquez HYPERT ROPHY of PROSTATE ; Clinic Candy Chow MD MIXED HYPERLIPIDEMIA; [address] [facility] ESOPHAGEAL REFLUX ; [place], [place] CLINIC CHEST PAIN NOS [address] [address] [facility] [phone] [place], [place] [id number] (Wo rk) Social History Tobacco Use Types Packs/Day Years Used Date Former Smoker Quit: 02/05/18 85 Alcohol Use Standard Drinks/Week Comments Yes 1.7 (1 standard drink = 0.6 oz pure alco hol) socially Sex Assigned at Date Recorded Male 01/15/2018 11:39 PM ANTISQUEAK FILLER documented as of this encounter Last Filed Vital Signs Vital Sign Reading Time Taken Comments Blood Pressure 120/74 03/14/2006 11:00 AM ANTISQUEAK FILLER Pulse 67 03/14/2006 11:00 AM ANTISQUEAK FILLER Temperature 36.5 ??C (97.7 ??F) 03/14/2006 11:00 AM ANTISQUEAK FILLER Respiratory Rate - - Oxygen Saturation 97% 03/14/2006 11:00 AM ANTISQUEAK FILLER Inhaled Oxygen Concentration - - Weight 84.8 kg (187 lb) 03/14/2006 11:00 AM ANTISQUEAK FILLER Height 177.8 cm (5' 10) 03/14/2006 11:00 AM ANTISQUEAK FILLER Body Mass Index 26.83 03/14/2006 11:00 AM ANTISQUEAK FILLER documented in this encounter Progress Notes Nasir Velazquez - 03/14/2006 11:39 AM CST Terry Montero is a 60 year old male who presents for evaluation of: 1. chest pain - happens when he is sleeping, in the left mid-axillary line or in the left upper quadrant. Describes the pain as a dull ache. Lasted approximately 1 minute. Has occurred approximately 6 times over the past month. He has no radiation of the pain, no diaphoresis, no dyspnea, and no nauseaor vomiting associated with the pain. It is not made worse by exertion. He last had a stress echocardiogram in 2002. 2. BPH - well controlled on Doxazosin. 3. Lipid - adequately controlled on Lipitor. Lab Test 03/12/06 09/06/05 CHOL 161 143 HDL 39* 38* LDL 77 68 TRIG 228* 186* CHOLHDLRATIO 4.2 3.8 OBJECTIVE: BP 120/74 Pulse 67 Temp (Src) 97.7 (Tympanic) Ht 5' 10 (1.78m) Wt 187 lbs [...] swelling or edema in lower extremities. Assessment/Plan: 600.00 HYPERTROPHY of PROSTATE Note: Plan: DOXAZOSIN MESYLATE 4 MG OR TABS well controlled, continue current regimen. 272.2 MIXED HYPERLIPIDEMIA Note: Plan: LIPITOR 10 MG OR TABS, ASPIRIN NOT PRESCRIBED (INTENTIONAL) Discussed ways to improve triglycerides with diet and aerobic exercise. LDL adequately controlled. Recheck in one year 530.81 ESOPHAGEAL REFLUX Note: Plan: NEXIUM 40 MG OR CPDR well controlled, continue current regimen 786.50 CHEST PAIN NOS Note: Plan: ELECTROCARDIOGRAM, COMP W/READ, CONSULT [facility] chest pain not typical angina, but given his heart risk factors, recurrent symptoms, and lack of other obvious explanation, I feel it is worthwhile to continue workup with a stress echocardiogram. Planfor the test to be performed sometime within the next few weeks. follow up after results return. Spent greater than 50% of 30 minutes counseling patient and/or coordinating care. SQUEAK FILLER documented in this encounter Nursing Notes 03/14/2006 11:00 AM CST >> PHOENIX DUBOIS 03/14/2006 11:09 am Terry Montero presents for as above. Initial BP 120/74 Pulse 67 Temp (Src) 97.7 (Tympanic) Ht 5' 10 (1.78m) Wt 187 lbs (84.8kg) SaO2 97% Body mass index is 26.83 kg/(m^2).. BP completed using cuff size: regular Phoenix Dubois CRIMINAL JUSTICE DEPARTMENT CHAIR documented in this encounter Plan of Treatment Not on filedocumented as of this encounter Procedures Procedure Name Priority Date/Time Associated Diagnosis Comme nts ZZC ELECTROCARDIOGRAM, Routine 03/14/2006 11:47 AM ANTISQUEAK FILLER Chest P ain Nos COMP W/READ documented in this encounter Results ELECTROCARDIOGRAM, COMP W/READ (03/14/2006 11:47 AM ANTISQUEAK FILLER) Narrative This result has an attachment that is no t available. Nasir Velazquez MD EKG TECHNICAL documented in this encounter Visit Diagnoses Diagnosis HYPERTROPHY of PROSTATE Hypertrophy of prostate without urinary obstruction and other lower urinary tract symptoms (LUTS) Mixed hyperlipidemia ESOPHAGEAL REFLUX Esophageal reflux Chest pain, unspecified documented in this encounter Care Teams Grooming Salon Manager Relationship Specialty Start Date End Date Nasir Velazquez MD PCP - General 02/18/99 10/06/13 [facility] [address] [place] [address] documented as of this encounter
--- OUTSIDE RECORDS SUMMARY | 2021-11-04 10:40 | XMS_ITS | Encounter Summary ---
:1945 Author Organization [place] Address [facility] [address] Care Team Providers Name Role Phone Scottie Velazquez MD Primary Care Provider [phone] Reason for Visit Reason Onset Date Comments Orders 01/08/2007 SEE NOTE Encounter Details Date Type Department Care Team Description 01/08/2007 Telephone [facility] Scottie Velazquez Orders (SEE NOTE) [place] [address] [place] [address] [facility] [phone] [place] [address] (Wo rk) Social History Tobacco Use Types Packs/Day Years Used Date Former Smoker Quit: 02/05/18 85 Alcohol Use Standard Drinks/Week Comments Yes 1.7 (1 standard drink = 0.6 oz pure alco hol) socially Sex Assigned at Date Recorded Male 01/15/2018 11:39 PM 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 AND FENDER MECHANIC APPRENTICE Telephone Encounter - Marlene Carreno - 01/10/2007 1:04 PM CST Done, let pt know Marlene Carreno MD AND FENDER MECHANIC APPRENTICE Telephone Encounter - Phoenix Dubois - 01/08/2007 4:57 PM CST Staff Message copied by PHOENIX DUBOIS on 01/08/2007 at 4:57 PM ------ Message from: EDYTA MUNSON Created: 01/08/2007 at 3:21 PM Regarding: Phone Message/[place] Contact: Carlos would like to get a CT for his chest. He can be reached at [phone] till 2:00pm. After 2:00pm his cell [phone].WILL SEND MESSAGE TO MARLENE AND SCOTTIE SINCE SCOTTIE IS OFF THE NEXT 2 [address] 12-4@3:22pm AND FENDER MECHANIC APPRENTICE documented in this encounter Plan of Treatment Not on filedocumented as of this encounter Procedures Procedure Name Priority Date/Time Associated Diagnosis Comme nts HC CT THORAX W/O Routine 01/14/2007 11:26 AM Other diseases of Results for this CONT BODY AND FENDER MECHANIC APPRENTICE lung, not elsewhere procedur e are in classified the results section. documented in this encounter Results CT SCAN CHEST (01/14/2007 11:26 AM BODY AND FENDER MECHANIC APPRENTICE) Anatomical Region Laterality Modality Other Specimen (Source) Anatomical Collection Method Collection Time Re ceived Time Location / / Volume Laterality 01/14/2007 11:26 AM BODY AND FENDER MECHANIC APPRENTICE Impressions 01/14/2007 1:30 PM BODY AND FENDER MECHANIC APPRENTICE EXAM: ??CT CHEST FOR NODULE ??Jan 14 11:26:00 AM HISTORY: ??Followup pulmonary nodule. TECHNIQUE: ??Scans obtained from the [facility] through the diaphragm without IV contrast. COMPARISON: ??07/09/2006. FINDINGS: ??No mediastinal or hilar keon opathy or mass. Coronary calcifications. Calcified paratracheal a nd right hilar lymph nodes. Upper abdomen is unremarkable. The small pleural based nodular density in the left upper lung anteriorly seen p reviously is again noted and is slightly smaller in size and now has a somewhat linear appearance. I feel this most likely is post inflamma tory in nature. There is however a new vague area of rounded grou ndglass infiltration in the right upper lobe on image 19 which was n ot present previously. While this could represent an inflammatory pro cess a neoplastic process such as bronchoalveolar carcinoma cannot be e xcluded. Followup study in 3 to 6 months is recommended for further e valuation of this area. No other significant intrapulmonary abnorma lity identified. IMPRESSION: ?? 1. Small nodular density in the left upp er lobe seen previously is again noted and is smaller in size and p robably is postinflammatory in nature. 2. New mildly nodular ground-glass infil tration in the right upper lobe. Recommend followup in 3 to 6 month s. 3. Remainder the scan is unchanged. Scottie Velazquez MD SPECIAL IMAGING STUDIES documented in this encounter Visit Diagnoses Diagnosis Other diseases of lung, not elsewhere cl assified - Primary documented in this encounter Care Teams Allopathic Doctor Relationship Specialty Start Date End Date Scottie Velazquez MD PCP - General 02/18/99 10/06/13 [address] [place] [address] documented as of this encounter
--- OUTSIDE RECORDS SUMMARY | 2021-11-04 10:40 | XMS_ITS | Encounter Summary ---
:1945 Author Organization [place] Address [facility] [place] [address] Care Team Providers Name Role Phone Nasir Velazquez MD Primary Care Provider [phone] Reason for Visit Reason Onset Date Comments Refill Request 08/11/2008 omperazole Encounter Details Date Type Department Care Team Description 08/11/2008 Refill [facility] Nasir Velazquez Refill Request Clinic Vardaman MD Geraldo (omperazole) [address] [place], [place] [address] [facility] [address] [facility] [phone] [place] [address] (Wo rk) Social History Tobacco Use Types Packs/Day Years Used Date Former Smoker Quit: 02/05/18 85 Alcohol Use Standard Drinks/Week Comments Yes 1.7 (1 standard drink = 0.6 oz pure alco hol) socially Sex Assigned at Date Recorded Male 01/15/2018 11:39 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 Andrew Kraus RN Telephone Encounter - Andrew Kraus - 08/11/2008 3:13 PM CDT Staff Message copied by ANDREW KRAUS on SunAug 11, 2008 3:13 PM ------ Message from: JULIET DUNCAN Created: SunAug 11, 2008 12:03 PM Regarding: sb/rx refill for OMEPRAZOLE 40 Contact: [facility] pharmacy is calling to see when the rx will be done, they state they are waiting on authorization. Case number for Alexis Bittar is [id number], please contact Alexis Bittar at [phone], apparently the patientonly has a couple of pills left. documented in this encounter Plan of Treatment Not on filedocumented as of this encounter Visit Diagnoses Not on filedocumented in this encounter Care Teams Machine Adjuster Leader Case Trim Relationship Specialty Start Date End Date Nasir Velazquez MD PCP - General 02/18/99 10/06/[address] [address] documented as of this encounter
--- OUTSIDE RECORDS SUMMARY | 2021-11-04 10:40 | XMS_ITS | Encounter Summary ---
:1945 Author Organization [place] Address [facility] [place] [address] Care Team Providers Name Role Phone Nasir Velazquez MD Primary Care Provider [phone] Reason for Visit Reason Onset Date Comments Refill Request 05/12/2008 Omperazole supply to local pharm Encounter Details Date Type Department Care Team Description 05/12/2008 Refill [facility] Nasir Velazquez Refill Request Clinic Altair MD [place]eraldo [place] [address] [facility] local pharm) [place], [place] [address] [facility] [address] [facility] [phone] [place] [address] (Wo rk) Social History Tobacco Use Types Packs/Day Years Used Date Former Smoker Quit: 02/05/18 85 Alcohol Use Standard Drinks/Week Comments Yes 1.7 (1 standard drink = 0.6 oz pure alco hol) socially Sex Assigned at Date Recorded Male 01/15/2018 11:39 PM BARKEEP documented as of this encounter Miscellaneous Notes Telephone Encounter - Chelsie Clifford - 05/12/2008 3:27 PM CDT 30day supply sent to [facility] per patient request. Chelsie Clifford RN documented in this encounter Plan of Treatment Not on filedocumented as of this encounter Visit Diagnoses Diagnosis Esophageal reflux - Primary documented in this encounter Care Teams Craniologist Relationship Specialty Start Date End Date Nasir Velazquez MD PCP - General 02/18/99 10/06/13 [facility] [address] [place] [address] documented as of this encounter
--- OUTSIDE RECORDS SUMMARY | 2021-11-04 10:40 | XMS_ITS | Encounter Summary ---
:1945 Author Organization [place] Address [address] [facility] [place] [address] Care Team Providers Name Role Phone Nasir Velazquez MD Primary Care Provider [phone] Encounter Details Date Type Department Care Team Description 03/20/2008 [facility] Results MD SHA[facility] [address] [facility] [address] (Wo rk) Social History Tobacco Use Types Packs/Day Years Used Date Former Smoker Quit: 02/05/18 85 Alcohol Use Standard Drinks/Week Comments Yes 1.7 (1 standard drink = 0.6 oz pure alco hol) socially Sex Assigned at Date Recorded Male 01/15/2018 11:39 PM DRILL RUNNER documented as of this encounter Plan of Treatment Not on filedocumented as of this encounter Procedures Procedure Name Priority Date/Time Associated Diagnosis Comme nts HC CT THORAX W/O Routine 03/20/2008 12:45 PM Resu lts for this CONT DRILL RUNNER procedure are i n the results section. documented in this encounter Results CT SCAN CHEST (03/20/2008 12:45 PM DRILL RUNNER) Specimen (Source) Anatomical Collection Method Collection Time Re ceived Time Location / / Volume Laterality 03/20/2008 12:45 PM DRILL RUNNER Impressions RADIOLOGY RESULTS - 03/22/2008 9:[address] CHEST FOR NODULE ??03/20/2008 12:45 PM HISTORY: Pulmonary nodules. Followup. TECHNIQUE: Volumetric helical acquisitio n was performed from the thoracic inlet through the upper abdomen without IV contrast. Coronal images were also reconstructed from the axial data. ?? COMPARISON: 04/11/2007 and 07/09/2006. FINDINGS: Tiny nodule in the left upper lobe laterally (series 3 image 17) is less prominent on today's exam, a nd has a postinflammatory appearance. Calcified right hilar and me diastinal lymph nodes. Calcified granuloma in the right upper l obe. The lungs are otherwise clear. No other pulmonary nodules are se en. No pleural or pericardial effusions. No adenopathy in the chest. C oronary artery calcifications. No aggressive appearing lesions are note d in the bony thorax. Limited views of the upper abdomen are unremarka ble. ?? IMPRESSION: 1. Previously noted tiny nodule in the l eft upper lobe laterally is less prominent on today's exam, and has a postinflammatory appearance. This finding is highly likely to be rela esperanza to a resolving benign process. 2. No new pulmonary nodules. Nasir Velazquez MD SPECIAL IMAGING STUDIES Performing Organization Address City/State/ZIP Code Phon e Number RADIOLOGY RESULTS documented in this encounter Visit Diagnoses Not on filedocumented in this encounter Care Teams Workforce Management Consultant Relationship Specialty Start Date End Date Nasir Velazquez MD PCP - General 02/18/99 10/06/13 [facility] [address] [place] [address] documented as of this encounter
--- OUTSIDE RECORDS SUMMARY | 2021-11-04 10:40 | XMS_ITS | Encounter Summary ---
:1945 Author Organization [place] Address [facility] [place] [place] [address] Care Team Providers Name Role Phone Nasir Velazquez MD Primary Care Provider [phone] Reason for Visit Reason Onset Date Comments Refill Request 08/06/2008 Omeperazole Encounter Details Date Type Department Care Team Description 08/06/2008 MyC Refill [facility] Nasir Velazquez Refill Request Clinic Candy Chow MD (Omeperazole) [address] [place], [place] CLINIC [address] [address] [facility] [phone] [place] [address] (Wo rk) Social History Tobacco Use Types Packs/Day Years Used Date Former Smoker Quit: 02/05/18 85 Alcohol Use Standard Drinks/Week Comments Yes 1.7 (1 standard drink = 0.6 oz pure alco hol) socially Sex Assigned at Date Recorded Male 01/15/2018 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 documented in this encounter Plan of Treatment Not on filedocumented as of this encounter Visit Diagnoses Diagnosis Esophageal reflux documented in this encounter Care Teams Steel Die Printer Relationship Specialty Start Date End Date Nasir Velazquez MD PCP - General 02/18/99 10/06/13 [address] [place] [address] documented as of this encounter
--- OUTSIDE RECORDS SUMMARY | 2021-11-04 10:40 | XMS_ITS | Encounter Summary ---
:1945 Author Organization [place] Address [address] [facility] [place] [address] Care Team Providers Name Role Phone Nasir Velazquez MD Primary Care Provider [phone] Reason for Referral Referral not Required - Closed Specialty Diagnoses / Procedures Referred By Contact Refer red To Contact Diagnoses Foot pain Pes planus Nasir Velazquez [facility] YE[facility] JACKET SAVANNAH [address] SAVANNAH Cheung D [address] [place] [address] [address] [place], [place] [address] [place] [address] Phone: [phone] Fax: [phone] Referral ID Status Reason Start Date Expiration Date Visits Requ ested Visits Authorized [id number] Closed 10/19/2008 02/04/2011 1 1 Reason for Visit Reason Comments Pain chronic pain both feet. Righ t side is worse. Encounter Details Date Type Department Care Team Description 10/19/2008 [facility] Clinic Candy Chow MD Need for Prophylactic Vaccination with T etanus-Diphtheria (TD); [address] [facility] SAVANNAH Pes Planus; [place], [place] CLINIC BENIGN HYPERTENSION; [id number] [address] Mixed Hyperlipidemia [phone] [place] [address] Social History Tobacco Use Types Packs/Day Years Used Date Former Smoker Quit: 02/05/18 85 Alcohol Use Standard Drinks/Week Comments Yes 1.7 (1 standard drink = 0.6 oz pure alco hol) socially Sex Assigned at Date Recorded Male 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 documented as of this encounter Last Filed Vital Signs Vital Sign Reading Time Taken Comments Blood Pressure 146/80 10/19/2008 10:43 AM CDT Pulse 63 10/19/2008 10:43 AM CDT Temperature 36.9 ??C (98.5 ??F) 10/19/2008 10:43 AM CDT Respiratory Rate - - Oxygen Saturation 97% 10/19/2008 10:43 AM CDT Inhaled Oxygen Concentration - - Weight 87.1 kg (192 lb 1 oz) 10/19/2008 10:43 AM CDT Height 174 cm (5' 8.5) 10/19/2008 10:43 AM CDT Body Mass Index 28.78 10/19/2008 10:43 AM CDT documented in this encounter Progress Notes Nasir Velazquez - 10/19/2008 5:33 PM CDT Terry Montero is a 63 year old male who presents for evaluation of: 1. bilateral foot pain - right worse than left. Present chronically but gradually worsening to a significant point now. Hurts with walking. No swelling. history of pes planus. Had arch supports 30 years ago. 2. hypertension - The patient is taking hypertensive medications compliantly without side effects. Denies chest pain, dyspnea, edema, or headaches. Problems list, allergies, social and family history, and past medical history, are all reviewed and updated in [facility]. Current outpatient prescriptions prior to encounter: SIMVASTATIN 20 MG OR TABS 1 TABLET AT BEDTIME HYDROCHLOROTHIAZIDE 25 MG OR TABS 1 TAB PO QD (Once per day) DOXAZOSIN MESYLATE 4 MG OR TABS 1 TABLET DAILY OMEPRAZOLE 40 MG OR CPDR ONE DAILY OBJECTIVE: BP 146/80 Pulse 63 Temp (Src) 98.5 ??F (36.9 ??C) (Oral) Ht 5' 8.5 (1.74 m) Wt 192 lb 1 oz (87.119 kg) SpO2 97% GENERAL APPEARANCE: healthy, alert [...] soft, nontender, no hepatosplenomegaly. No abdominal bruits. FOOT: pes planus bilaterally. Nontender but area of pain is over the navicular. Pain worse with going up on toes. Assessment/Plan: 729.5E Foot Pain (primary encounter diagnosis) Comment: Plan: CONSULT ORTHO DIE DEVELOPER referral to Podiatry. Suspect some element of navicular instability based on location of the pain. V06.5 Need for Prophylactic Vaccination with Tetanus-Diphtheria (TD) Comment: Plan: TDAP ( BOOSTRIX AGES 10-64) 734L Pes Planus Comment: Plan: CONSULT ORTHO DIE DEVELOPER as above. 401.1 BENIGN HYPERTENSION Comment: Plan: A.M.A. COMPREHENSIVE MET.PANEL elevated blood pressure. Patient will check blood pressures out of the office and return with results if earache. 272.2 Mixed Hyperlipidemia Comment: Plan: LIPID PANEL, REFLEX TO DIRECT LDL, A.M.A. COMPREHENSIVE MET.PANEL I will contact the patient regarding his results and determine the follow up plan at that time. documented in this encounter Nursing Notes 10/19/2008 10:30 AM CDT >> PHOENIX DUBOIS Mon Oct 19, 2008 10:48 AM Patient presents with: Pain - chronic pain both feet. Right side is worse. Initial BP 146/80 Pulse 63 Temp (Src) 98.5 ??F (36.9 ??C) (Oral) Ht 5' 8.5 (1.74 m) Wt 192 lb 1 oz (87.119 kg) SpO2 97% Body mass index is 28.78 kg/(m^2).. BP completed using cuff size: large Height was taken today with shoes off. Phoenix Dubois TIRE WRAPPER documented in this encounter Plan of Treatment Not on filedocumented as of this encounter Procedures Procedure Name Priority Date/Time Associated Diagnosis Comme nts HCL LIPID PANEL, Routine 10/19/2008 11:29 Mixed Hyperlipidemia Results for this REFLEX TO DIRECT LDL AM CDT procedu re are in the results section. HCL COMPREHENSIVE Routine 10/19/2008 11:29 BENIGN HYPERT ENSION Results for this METABOLIC PANEL AM CDT Mixed Hyperlipidemia proc edure are in the results section. documented in this encounter Results (ABNORMAL) A.M.A. COMPREHENSIVE MET.PANEL (10/19/2008 11:29 AM CDT) athologist Signature Sodium 142 133 - 144 [facility] mmol/L [facility] Potassium 4.0 3.4 - 5.3 [facility] mmol/L [facility] Chloride 104 94 - 109 [facility] mmol/L [facility] Carbon Dioxide 30 20 - 32 [facility] mmol/L [facility] Anion Gap 8 6 - 17 [facility] mmol/L [facility] Glucose 100 (H) 60 - 99 [facility] mg/dL [facility] Urea Nitrogen 16 7 - 30 [facility] mg/dL [facility] Creatinine 1.02 0.66 - [facility] 1.25 mg/dL [facility] Comment: New IDMS-traceable calibration beginning 06/06/07 GFR Estimate 74 >60 mL/min/1.7m2 [facility] E [facility]AN [facility] GFR Estimate If Black 89 >60 mL/min/1.7m2 [facility] Calcium 9.6 8.5 - 10.4 mg/dL [facility] Bilirubin Total 0.3 0.2 - 1.3 mg/dL [facility] Albumin 4.2 3.3 - 4.9 g/dL [facility] Comment: Reference range changed on 10/07. Protein Total 7.4 6.8 - 8.8 g/dL [facility] Comment: As of 07, reference range reflects plasma specimen type. Alkaline Phosphatase 108 40 - 150 [facility] ALT 24 0 - 70 U[facility] AST 33 0 - 55 U/L [facility] Specimen Anatomical Collection Method Collection Time Receive d Time (Source) Location / / Volume Laterality 10/19/2008 11:29 10/19/2008 AM CDT 11:31 AM CDT Nasir Velazquez MD LABORATORY Performing Organization Address City/[facility]/ZIP Code Phon e Number [facility] [address] [facility] [place] [address] [facility] LIPID PANEL, REFLEX TO DIRECT LDL (10/19/2008 11:29 AM CDT) athologist Signature Cholesterol 177 0 - 200 [facility] mg/dL CLINIC LAB Comment: LDL Cholesterol is the primary guide to therapy: LDL-cholesterol goal in high risk patients is <100 mg/dL and in very high risk patients is <70 mg/dL. The NCEP recommends further evaluation of: patients with cholesterol <200 mg/dL if additional risk factors are present, cholesterol >240 mg/dL, triglycerides >150 mg/dL, or HDL <40 mg/dL. Triglycerides 116 0 - 150 mg/dL [facility] HDL Cholesterol 41 40 - 110 mg/dL [facility] LDL Cholesterol Calculated 113 0 - 129 mg/dL [facility] Comment: LDL Cholesterol is the primary guide to therapy: LDL-cholesterol goal in high risk patients is <100 mg/dL and in very high risk patients is <70 mg/dL. VLDL-Cholesterol 23 0 - 30 mg/dL [facility] Cholesterol/HDL Ratio 4.3 0.0 - 5.0 [facility] Specimen Anatomical Collection Method Collection Time Receive d Time (Source) Location / / Volume Laterality 10/19/2008 11:29 10/19/2008 AM CDT 11:31 AM CDT Nasir Velazquez MD LABORATORY Performing Organization Address City/[facility]/ZIP Code Phon e Number [facility] [address] [facility] [place] [address] [facility] documented in this encounter Visit Diagnoses Diagnosis Foot pain - Primary Pain in limb Need for prophylactic vaccination with t etanus-diphtheria (Td) Pes planus Flat foot BENIGN HYPERTENSION Essential hypertension, benign Mixed hyperlipidemia documented in this encounter Care Teams Animal Park Code Enforcement Officer Relationship Specialty Start Date End Date Nasir Velazquez MD PCP - General 02/18/99 10/06/13 [facility] [address] [place] [address] documented as of this encounter
--- OUTSIDE RECORDS SUMMARY | 2021-11-04 10:40 | XMS_ITS | Encounter Summary ---
:1945 Author Organization [place] Address [address] [facility] [place] [address] Care Team Providers Name Role Phone Nasir Velazquez MD Primary Care Provider [phone] Reason for Referral - Closed Specialty Diagnoses / Procedures Referred By Contact Refer red To Contact Diagnoses Other chronic sinusitis Nasir Velazquez MD [facility] [address] [place], [place] [address] Referral ID Status Reason Start Date Expiration Date Visits Requ ested Visits Authorized [id number] Closed 04/02/2006 02/04/2011 1 1 SYBASE DEVELOPER Reason for Visit Reason Comments RECHECK follow up for cough, cough i s about the same, no sharp pain in chest now, had stress test last week, follo w up too on BMT test. 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 documented as of this encounter Last Filed Vital Signs Vital Sign Reading Time Taken Comments Blood Pressure 108/72 04/02/2006 3:15 PM JAVA SYBASE DEVELOPER Pulse 63 04/02/2006 3:15 PM JAVA SYBASE DEVELOPER Temperature 37.6 ??C (99.6 ??F) 04/02/2006 3:15 PM JAVA SYBASE DEVELOPER Respiratory Rate - - Oxygen Saturation 95% 04/02/2006 3:15 PM JAVA SYBASE DEVELOPER Inhaled Oxygen Concentration - - Weight 87.1 kg (192 lb) 04/02/2006 3:15 PM JAVA SYBASE DEVELOPER Height 177.8 cm (5' 10) 04/02/2006 3:15 PM JAVA SYBASE DEVELOPER Body Mass Index 27.55 04/02/2006 3:15 PM JAVA SYBASE DEVELOPER documented in this encounter Progress Notes Nasir Velazquez - 04/02/2006 5:17 PM CST Terry Montero is a 60 year old male who presents for evaluation of: 1. follow up cough - has had a cough for approximately 10 days. Was seen and had a CXR and was put on Amoxicillin last week. He has noted significant improvement in his cough and the associated left anterior chest wall pain. The CXR did find a 1cm nodule and he was worried about this. 2. Chronic rhinitis - he has suffered for years with chronic nasal congestion. He does not develop acute bacterial sinusitis frequently. He has tried a few nasal steroids in the past, but they have resulted in nosebleeds. He has also had sensations of dry throat and his throat closed off. This happens infrequently. OBJECTIVE: BP 108/72 Pulse 63 Temp (Src) 99.6 (Tympanic) Ht 5' 10 (1.78m) Wt 192 lbs (87.1kg) SaO2 95% GENERAL APPEARANCE: healthy, alert and no distress HEENT: oropharynx is unremarkable, without erythema or tonsillar hypertrophy NECK: no adenopathy, no asymmetry or masses RESP: lungs clear to auscultation - no rales, rhonchi or wheezes CV: regular rates and rhythm, normal S1 S2, no S3 or S4 and no murmur, click or rub - Assessment/Plan: 473.8 CHRONIC SINUSITIS NEC (primary encounter diagnosis) Note: Plan: CONSULT OTOLARYNGOLOGY He is unsure at this time if he is going to follow up with ENT. I also gave him a sample of Flonaseand instructed him in use. 786.2 COUGH Note: Plan: I am reassured that his cough and chest pain has significantly improved. Discussed low likelihood of this nodule turning out to be cancer and he seemed reassured. Spent greater than 50% of 30 minutes counseling patient and/or coordinating care. SYBASE DEVELOPER documented in this encounter Nursing Notes 04/02/2006 3:15 PM CST >> ALEXANDRIA GARCIA 04/02/2006 3:30 pm Terry Montero presents for as above. Initial BP 108/72 Pulse 63 Temp (Src) 99.6 (Tympanic) Ht 5' 10 (1.78m) Wt 192 lbs (87.1kg) SaO2 95% Body mass index is 27.55 kg/(m^2).. BP completed using cuff size: regular Alexandria Garcia SENIOR PROCESS ANALYST documented in this encounter Plan of Treatment Not on filedocumented as of this encounter Visit Diagnoses Diagnosis Other chronic sinusitis - Primary Cough documented in this encounter Care Teams Warehouse Operations Associate Relationship Specialty Start Date End Date Nasir Velazquez MD PCP - General 02/18/99 10/06/13 [address] [id number] [place] [address] documented as of this encounter
--- OUTSIDE RECORDS SUMMARY | 2021-11-04 10:40 | XMS_ITS | Encounter Summary ---
:1945 Author Organization [place] Address [facility] 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 CL AFF A.M.A. LIPID Routine 03/12/2006 9:55 AM Mixed Hyperlipi demia Results for this PANEL REFERENCE LIBRARIAN procedure are i n the results section. documented in this encounter Results ALANINE AMINO (ALT) (SGPT) (03/12/2006 9:55 AM REFERENCE LIBRARIAN) P athologist Signature ALT 49 0 - 70 U/L [facility] Specimen Anatomical Collection Method Collection Time Receive d Time (Source) Location / / Volume Laterality 03/12/2006 9:55 AM 7 9:56 REFERENCE LIBRARIAN AM REFERENCE LIBRARIAN Nasir Velazquez MD LABORATORY Performing Organization Address City/[facility]/ZIP Code Phon e Number [facility] [address] [place] [address] [phone] [facility] (ABNORMAL) A.M.A. LIPID PANEL (03/12/2006 9:55 AM REFERENCE LIBRARIAN) athologist Signature Cholesterol 161 0 - 200 [facility] mg[facility]dL CL[facility] LAB Comment: LDL Cholesterol is the primary guide to therapy: LDL-cholesterol goal in high risk patients is <100 mg/dL and in very high risk patients is <70 mg/dL. The NCEP recommends further evaluation of: patients with cholesterol <200 mg/dL if additional risk factors are present, cholesterol >240 mg/dL, triglycerides >150 mg/dL, or HDL <40 mg/dL. Triglycerides 228 (H) 0 - 150 mg/dL [facility] HDL Cholesterol 39 (L) 40 - 110 mg/dL [facility] LDL Cholesterol Calculated 77 0 - 129 mg/dL [facility] Comment: LDL Cholesterol is the primary guide to therapy: LDL-cholesterol goal in high risk patients is <100 mg/dL and in very high risk patients is <70 mg/dL. VLDL-Cholesterol 46 (H) 0 - 30 mg/dL [facility] Cholesterol/HDL Ratio 4.2 0.0 - 5.0 [facility] Specimen Anatomical Collection Method Collection Time Receive d Time (Source) Location / / Volume Laterality 03/12/2006 9:55 AM 7 9:56 REFERENCE LIBRARIAN AM REFERENCE LIBRARIAN Nasir Velazquez MD LABORATORY Performing Organization Address City/[facility]/ZIP Code Phon e Number [address] [address] [phone] [facility] documented in this encounter Visit Diagnoses Diagnosis Mixed hyperlipidemia documented in this encounter Care Teams Screen Printing Machine Loader Unloader Relationship Specialty Start Date End Date Nasir Velazquez MD PCP - General 02/18/99 10/06/13 [facility] [address] [place] [address] documented as of this encounter
--- OUTSIDE RECORDS SUMMARY | 2021-11-04 10:40 | XMS_ITS | Encounter Summary ---
:1945 Author Organization [place] Address [facility] [place] [address] Care Team Providers Name Role Phone Nasir Velazquez MD Primary Care Provider [phone] Reason for Visit Reason Onset Date Comments Refill Request 10/15/2007 hctz, simvastatin, d oxysozin Encounter Details Date Type Department Care Team Description 10/15/2007 Refill [facility] Nasir Velazquez Refill Request (hctz, [facility] MD Geraldo simvastatin, doxysozin) [address] [place] [address] [place] [phone] [facility] [phone] [place] [address] (Wo rk) Social History Tobacco Use Types Packs/Day Years Used Date Former Smoker Quit: 02/05/18 85 Alcohol Use Standard Drinks/Week Comments Yes 1.7 (1 standard drink = 0.6 oz pure alco hol) socially Sex Assigned at Date Recorded Male 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 Sharri Tavera RN documented in this encounter Plan of Treatment Not on filedocumented as of this encounter Visit Diagnoses Diagnosis HYPERTROPHY of PROSTATE Hypertrophy of prostate without urinary obstruction and other lower urinary tract symptoms (LUTS) Essential hypertension, benign Mixed hyperlipidemia documented in this encounter Care Teams Speech And Language Assistant Relationship Specialty Start Date End Date Nasir Velazquez MD PCP - General 02/18/99 10/06/13 [facility] [address] [place] [address] documented as of this encounter
--- OUTSIDE RECORDS SUMMARY | 2021-11-04 10:40 | XMS_ITS | Encounter Summary ---
:1945 Author Organization [place] Address [facility] [place] [address] Care Team Providers Name Role Phone Nasir Velazquez MD Primary Care Provider [phone] Reason for Referral Referral not Required - Closed Specialty Diagnoses / Procedures Referred By Contact Refer red To Contact Diagnoses Adenomatous polyp of colon Nasir Velazquez ROBERT A GILL MD FACP MD [address] [id number] [place], [place] [address] Phone: [phone] Fax: Referral ID Status Reason Start Date Expiration Date Visits Requ ested Visits Authorized [id number] Closed 02/28/2008 02/04/2011 1 1 HOUSE HAND Encounter Details Date Type Department Care Team Description 02/27/2008 Telephone [facility] [place] [address] [place] [address] [facility] [phone] [facility] [address] [address] (Wo rk) Social History Tobacco Use Types Packs/Day Years Used Date Former Smoker Quit: 02/05/18 85 Alcohol Use Standard Drinks/Week Comments Yes 1.7 (1 standard drink = 0.6 oz pure alco hol) socially Sex Assigned at Date Recorded Male 01/15/2018 11:39 PM DYE HOUSE HAND documented as of this encounter Miscellaneous Notes Telephone Encounter - Nasir Velazquez - 02/28/2008 1:05 PM CST Should now be correct association. Thanks for your work. HOUSE HAND Telephone Encounter - Tonie Chan - 02/27/2008 11:59 AM CST Patient called, wanted to know if we got his medical record in from Dr Edilson Valenzuela for his colonoscopy back in November 2002. We do, I will fax it over to Dr Parsons's office at [phone]. Also, his colonoscopy showed that he had diverticulosis, internal hemorrhoids as well as two small polyps, which indicate that he should have a colonoscopy every 5 years instead of every 10 years. His insurance needs it to be coded as diagnostic not preventative otherwise they will not cover it. Please put the diagnosis code in, I don't know what to use. I will fax his previous colonoscopy to Dr Parsons in the meantime. Thanks - Sue HOUSE HAND Telephone Encounter - Enedelia Morrison - 02/27/2008 9:40 AM CST Pt called he received message in [place] he is due for colonoscopy. He did set one up with Dr. Parsons for 03/10/08. Pt checked with insurance they only usually cover the every 10yrs. Put pt's last colonoscopy and path in his chart did send to Dr. Velazquez for review. Please call or LIQVIDt pt on what he should do or is there something Dr. Velazquez can do to get the every 10yr changed. Pt home # [phone] HOUSE HAND documented in this encounter Plan of Treatment Not on filedocumented as of this encounter Visit Diagnoses Diagnosis Adenomatous polyp of colon - Primary Benign neoplasm of colon documented in this encounter Care Teams Supervisor Dry Cleaning Relationship Specialty Start Date End Date Nasir Velazquez MD PCP - General 02/18/99 10/06/13 [place] [id number] [place] [address] documented as of this encounter
--- OUTSIDE RECORDS SUMMARY | 2021-11-04 10:40 | XMS_ITS | Encounter Summary ---
:1945 Author Organization [place] Address [facility] [place] [address] Care Team Providers Name Role Phone Nasir Velazquez MD Primary Care Provider [phone] Reason for Visit Reason Onset Date Comments Refill Request 08/20/2008 omperazole Encounter Details Date Type Department Care Team Description 08/20/2008 Refill [facility] Nasir Velazquez Refill Request Clinic Candy Chow MD (omperazole) [address] [place] [address] [place] [phone] [facility] [phone] [place] [address] (Wo rk) Social History Tobacco Use Types Packs/Day Years Used Date Former Smoker Quit: 02/05/18 85 Alcohol Use Standard Drinks/Week Comments Yes 1.7 (1 standard drink = 0.6 oz pure alco hol) socially Sex Assigned at Date Recorded Male 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 Please send a 30 day Rx to [facility] in [place] ([place]). He also needs 90 day prior auth thru [employer]. Carlos can be reached at [phone]. DL 7-15@4:03pm documented in this encounter Plan of Treatment Not on filedocumented as of this encounter Visit Diagnoses Diagnosis Esophageal reflux documented in this encounter Care Teams Securities Adviser Relationship Specialty Start Date End Date Nasir Velazquez MD PCP - General 02/18/99 10/06/13 [place] [address] [place], [place] [address] documented as of this encounter
--- OUTSIDE RECORDS SUMMARY | 2021-11-04 10:41 | XMS_ITS | Encounter Summary ---
:1945 Author Organization [place] Address [address] [facility] [place] [address] Care Team Providers Name Role Phone Nasir Velazquez MD Primary Care Provider [phone] Reason for Visit Reason Comments Thumb Discomfort Encounter Details Date Type Department Care Team Description 07/17/2002 Office Visit [place] Diogo Arnold TRIGGER FINGER (Primary Dx); Physicians MD Bob ALLERGIC RHINITIS NOS; [address] [place], [place] [id number] [place] [address] [employer] ANAL [facility]EM[facility]RH[facility] [address] [place] [address] [id number] (Wo rk) Social History Tobacco Use Types Packs/Day Years Used Date Former Smoker Quit: 02/05/18 85 Alcohol Use Standard Drinks/Week Comments Yes 1.7 (1 standard drink = 0.6 oz pure alco hol) Sex Assigned at Date Recorded Male 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 It is not clear if this is work related or not. 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 Doesn't recall a specific injury that day, but the next day it was sore. He saw Dr. Pastor on 05/27, and a diagnosis of trigger finger was made. No medicat ion was prescribed. He has pain & limitation on extending his thumb, and there is slight swelling& tenderness at the metacarpophalangeal joint. Xray is negative. Assessment: trigger thumb. PLAN: CELEBREX 200 MG OR CAPS, 1 Capsule twice per day, samples. Call for Orthopedics referral if not impr oving in a week. His has had this & got steroid shots for it. Also has questions about colo noscopy vs flexible sigmoidoscopy for cancer screening. He does get some bright red rectal bleeding o n the tissue only when he wipes, so hemocults are not an option. Toldthat intuitively a colonoscopy seems like a more complete test, but is more invasive in terms of theprep, more costly, and not prov en to significantly reduce mortality vs flexible sigmoidoscopy. I told him I would be glad to get hi m set up for either. He requests the flexible sigmoidoscopy. Instructions given. Finally, he has b een bothered by Seasonal allergic rhinitis, now slightly improved. He stopped taking Claritin when h is insurance company no longer would cover it. I told him he could try over the counter medication- generic loratidine, & if not adequate, we can prescribe nasal steroids. He willlet me know at the f lexible sigmoidoscopy. documented in this encounter Nursing Notes 07/17/2002 4:45 PM CDT >> JIM MELGAR 07/17/2002 5:07 pm left thumb pain, unable to straighten it. has been having problems for 6 wks. Did see [facility]CM about it. Does not recall injury. Patient was taking hemoccult tests, however he has hemorrhoid bleeding would like to talk to you about a flex sig. pt stopped taking claritin because of insurance-wont pay for it. documented in this encounter Plan of Treatment Scheduled Orders Name Type Priority Associated Diagnoses Order S chedule X-RAY EXAM OF FINGER(S) Imaging Routine Trigger Finger Or dered: 07/17/2002 documented as of this encounter Visit Diagnoses Diagnosis Trigger finger (acquired) - Primary Allergic rhinitis, cause unspecified Hemorrhage of rectum and anus documented in this encounter Care Teams Contracts Paralegal Relationship Specialty Start Date End Date Nasir Velazquez MD PCP - General 02/18/99 10/06/13 [address] [place] [address] documented as of this encounter
--- OUTSIDE RECORDS SUMMARY | 2021-11-04 10:41 | XMS_ITS | Encounter Summary ---
:1945 Author Organization [place] Address [address] [place] [address] Care Team Providers Name Role Phone Nasir Velazquez MD Primary Care Provider [phone] Reason for Visit Reason Comments RECHECK labs and recheck meds Encounter Details Date Type Department Care Team Description 02/03/2005 Office Visit [facility] Diogo Velazquez BENIGN H YPERTENSION; Clinic Candy Rojas MD MIXED HYPERLIPIDEMIA; [address] [facility] [id number] MAGNOLIA ESOPHAGEAL REFLUX ; [place], [place] AV HYPERTROPHY of PROSTATE ; [address] [place], [place] NUTRITION DEFICIENCY NEC [phone] (Wo rk) Social History Tobacco Use Types Packs/Day Years Used Date Former Smoker Quit: 02/05/18 85 Alcohol Use Standard Drinks/Week Comments Yes 1.7 (1 standard drink = 0.6 oz pure alco hol) socially Sex Assigned at Date Recorded 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 Last Filed Vital Signs Vital Sign Reading Time Taken Comments Blood Pressure 120/82 02/03/2005 1:30 PM WINE STEWARD Pulse 77 02/03/2005 1:30 PM WINE STEWARD Temperature 36.6 ??C (97.9 ??F) 02/03/2005 1:30 PM WINE STEWARD Respiratory Rate - - Oxygen Saturation 96% 02/03/2005 1:30 PM WINE STEWARD Inhaled Oxygen Concentration - - Weight 87.5 kg (193 lb) 02/03/2005 1:30 PM WINE STEWARD Height 177.8 cm (5' 10) 02/03/2005 1:30 PM WINE STEWARD Body Mass Index 27.69 02/03/2005 1:30 PM WINE STEWARD documented in this encounter Progress Notes Diogo Velazquez - 02/03/2005 2:07 PM CST SUBJECTIVE: Terry Montero, a 59 year old male scheduled an appointment to discuss the following issues & get his meds refilled. BENIGN HYPERTENSION- his blood pressure is in good control. Takes HCTZ daily. MIXED HYPERLIPIDEMIA- On lipitor. He has not experienced any significant side effects with this medication. Basename 02/01/05 08/05/04 CHOL 165 145 HDL 51 38* LDL 91 63 TRIG 117 224* CHOLHDLRATIO 3.2 3.9 ESOPHAGEAL REFLUX- Takes his Nexium daily. 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 Does great iftakes the medication. He also wanted us to know he takes a one a day multiple vit. OBJECTIVE: BP 120/82 Pulse 77 Temp (Src) 97.9 (Oral) Ht 5' 10 (1.78m) Wt 193 lbs (87.5kg) SaO2 96% EXAM: GENERAL APPEARANCE: healthy, alert and no distress RESP: lungs clear to auscultation - no rales, rhonchi or wheezes CV: regular rates and rhythm, normal S1 S2, no S3 or S4 and no murmur, click or rub - ASSESSMENT/PLAN: 401.1 BENIGN HYPERTENSION Plan: HYDROCHLOROTHIAZIDE 25 MG OR TABS 272.2 MIXED HYPERLIPIDEMIA Plan: LIPITOR 10 MG OR TABS 530.81 ESOPHAGEAL REFLUX Plan: NEXIUM 40 MG OR CPDR 600.00 HYPERTROPHY of PROSTATE Plan: DOXAZOSIN MESYLATE 1 MG OR TABS doing fine with all problems. Continue current medications for the time being. Recheck these tests in six months. I sent the Rx's to the pharmacy. ([facility] ) STEWARD documented in this encounter Nursing Notes 02/03/2005 1:30 PM CST >> ZACH DANIELSON 02/03/2005 1:35 pm Terry Manciniofield presents for above. Initial BP 120/82 Pulse 77 Temp (Src) 97.9 (Oral) Ht 5' 10 (1.78m) Wt 193 lbs (87.5kg) SaO2 96% Body Mass Index is 27.69 kg/(m^2).. BP completed using cuff size: regular Zach Danielson documented in this encounter Plan of Treatment Not on filedocumented as of this encounter Visit Diagnoses Diagnosis Essential hypertension, benign Mixed hyperlipidemia ESOPHAGEAL REFLUX Esophageal reflux HYPERTROPHY of PROSTATE Hypertrophy of prostate without urinary obstruction and other lower urinary tract symptoms (LUTS) Other nutritional deficiency documented in this encounter Care Teams Museum Registrar Relationship Specialty Start Date End Date Nasir Velazquez MD PCP - General 02/18/99 10/06/13 [address] [place] [address] documented as of this encounter
--- OUTSIDE RECORDS SUMMARY | 2021-11-04 10:41 | XMS_ITS | Encounter Summary ---
:1945 Author Organization [place] Address [facility] [place] [address] Care Team Providers Name Role Phone Nasir Velazquez MD Primary Care Provider [phone] Reason for Visit Reason Comments URI Encounter Details Date Type Department Care Team Description 06/09/2003 Office Visit [facility] DawitTony black ACUTE MAXILLARY SINUSITIS (Primary Dx); Physicians MD Martine BENIGN HYPERTENSION; [address] MIXED HYPERLIPIDEMIA [address] [place] [address] Social History Tobacco Use Types Packs/Day Years Used Date Former Smoker Quit: 02/05/18 85 Alcohol Use Standard Drinks/Week Comments Yes 1.7 (1 standard drink = 0.6 oz pure alco hol) Sex Assigned at Date Recorded 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 Last Filed Vital Signs Vital Sign Reading Time Taken Comments Blood Pressure 122/70 06/09/2003 3:44 PM CDT Pulse - - Temperature 36.7 ??C (98.1 ??F) 06/09/2003 3:44 PM CDT Respiratory Rate - - Oxygen Saturation - - Inhaled Oxygen Concentration - - Weight 86.6 kg (191 lb) 06/09/2003 3:44 PM CDT Height - - Body Mass Index 26.64 12/30/2002 9:00 AM 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 Ears normal. Throat and pharynx normal. Neck supple. No adenopathy or masses in the neck or supraclavicular regions. Sinuses non tender. Nose shows the following findings:some pus on the left My conclusion is that this is a maxillary sinus infection ASSESSMENT:Acute Maxillary Sinusitis 461.0 Per encounter diagnoses. PLAN: Pt instructed to return if febrile, or if some significant change in mental functioning or disabling headache. It usually takes a week or two to completely clear, and pt understands when to return if not doing well or as expected. we also discussed his meds and did some refills Today we reviewed all meds for rationality,efficacy, conflicts, drug drug interactions, accuracy indosage and compliance with the entire program and at this time will not make any specific changes unless mentioned above. documented in this encounter Nursing Notes 06/09/2003 3:45 PM CDT >> ONIEL BARRIOS 06/09/03 3:44 pm Patient is here for nasal drainage and a constant cough for the past 9 days. Patient states that he can feel this in his chest. Patient has questions about medication options for him. Patient needs a refill on his HCTZ. documented in this encounter Plan of Treatment Not on filedocumented as of this encounter Visit Diagnoses Diagnosis Acute maxillary sinusitis - Primary Essential hypertension, benign MIXED HYPERLIPIDEMIA Mixed hyperlipidemia documented in this encounter Care Teams Demand Equipment Repairer Relationship Specialty Start Date End Date Nasir Velazquez MD PCP - General 02/18/99 10/06/13 [facility] [address] [place] [address] documented as of this encounter
--- OUTSIDE RECORDS SUMMARY | 2021-11-04 10:41 | XMS_ITS | Encounter Summary ---
:1945 Author Organization [place] Address [address] [facility] [place] [address] Care Team Providers Name Role Phone Nasir Nicole MD Primary Care Provider [phone] Reason for Visit Reason Onset Date Comments X-ray Results 02/02/2004 Encounter Details Date Type Department Care Team Description 01/18/2004 Telephone [facility] Fabricio Nicole MD X-ray Results [place] [id number] [facility] [address] [place], [place] [address] [place] [address] [phone] Social History Tobacco Use Types Packs/Day Years Used Date Former Smoker Quit: 02/05/18 85 Alcohol Use Standard Drinks/Week Comments Yes 1.7 (1 standard drink = 0.6 oz pure alco hol) Sex Assigned at Date Recorded 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 OK to close encounter. >> ZACH HAMILTON SunFeb 02, 2004 12:20 PM placed call to pt and read him your note verbatim. curious though, as to why the cervical spine x-ra y is still in process. will place call [facility] to find out the actual status . >> FABRICIO BONNIE Zuñiga Feb 02, 2004 11:04 AM Let him know that it showed stable, chronic findings. One vertabrae was slightly shifted forward, as pointed out when he was at the clinic. (PS- did you tell him I was going to be out of town for tw o weeks when he called?) >> ZACH HAMILTON [facility] Jan 18, 2004 11:40 AM Staff Message copied by ZACH HAMILTON on 01/18/2004 at 11:40 AM ------ Message from: YUAN JIMENEZ Created: 01/18/2004 at 11:16 AM Regarding: Dr Felicity Nicole xray results nc This patient would like a call back. He wanted to know what his neck xray showed.? Patient can be reached at [phone] thanks documented in this encounter Plan of Treatment Not on filedocumented as of this encounter Visit Diagnoses Not on filedocumented in this encounter Care Teams Director Biomedical Engineering Relationship Specialty Start Date End Date Nasir Nicole MD PCP - General 02/18/99 10/06/13 [facility] [address] [place] [address] documented as of this encounter
--- OUTSIDE RECORDS SUMMARY | 2021-11-04 10:41 | XMS_ITS | Encounter Summary ---
:1945 Author Organization [place] Address Formerly [facility] [place] [address] Care Team Providers Name Role Phone Nasir Nicole MD Primary Care Provider Reason for Referral - Closed Specialty Diagnoses / Procedures Referred By Contact Refer red To Contact Dermatology Diagnoses Actinic keratosis Fab[place]io [place] [id number] [place], [place] [address] Referral ID Status Reason Start Date Expiration Date Visits Requ ested Visits Authorized [id number] Closed 12/30/2002 02/04/2011 1 1 DER MACHINE KNIFE SETTER - Closed Specialty Diagnoses / Procedures Referred By Contact Refer red To Contact Physical Therapy Diagnoses Cervicalgia Fabricio Nicole MD [id number] [place], [place] [address] Referral ID Status Reason Start Date Expiration Date Visits Requ ested Visits Authorized [id number] Closed 12/30/2002 02/04/2011 1 1 DER MACHINE KNIFE SETTER Reason for Visit Reason Comments Physical Refill Request Referral Encounter Details Date Type Department Care Team Description 12/30/2002 Office Visit [facility] Fabricio Nicole CERVICAL SARAHI (Primary Dx); Physicians MD Bob COUGH; [address] [place] [id number] [facility]; [address] ACTINIC KERATOSIS; [place], [place] BENIGN HYP ERTENSION; [phone] MIXED HYPERLIPIDEMIA ; [phone] CHEST PAIN NOS; (Work) SCREENING MAL NEOP-PROSTATE Social History Tobacco Use Types Packs/Day Years Used Date Former Smoker Quit: 02/05/18 85 Alcohol Use Standard Drinks/Week Comments Yes 1.7 (1 standard drink = 0.6 oz pure alco hol) Sex Assigned at Date Recorded Male 01/15/2018 11:39 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 documented as of this encounter Last Filed Vital Signs Vital Sign Reading Time Taken Comments Blood Pressure 140/82 12/30/2002 9:00 AM GRINDER MACHINE KNIFE SETTER Pulse 60 12/30/2002 9:00 AM GRINDER MACHINE KNIFE SETTER Temperature 36.2 ??C (97.1 ??F) 12/30/2002 9:00 AM GRINDER MACHINE KNIFE SETTER Respiratory Rate 18 12/30/2002 9:00 AM GRINDER MACHINE KNIFE SETTER Oxygen Saturation - - Inhaled Oxygen Concentration - - Weight 86.6 kg (191 lb) 12/30/2002 9:00 AM GRINDER MACHINE KNIFE SETTER Height 180.3 cm (5' 11) 12/30/2002 9:00 AM GRINDER MACHINE KNIFE SETTER Body Mass Index 26.64 12/30/2002 9:00 AM GRINDER MACHINE KNIFE SETTER documented in this encounter Progress Notes 12/30/2002 9:00 AM GRINDER MACHINE KNIFE SETTER In for a number of concerns & a full physical. Getting spasms in his neck. Is known to have osteoarthritis, and wanted a follow up neck Xray. I didn't think it was going to add to his care. He has no radicular component, and no weakness in upper extremities. I have sent him to Physical Therapy for trial. Recheck immediately if worsening, or if not improving in a few months, otherwise PRN. He is also getting chronic cough productive of clear fluid. His exam was negative today, and The chest x-ray is negative. Radiologist interpretation pending. He gets some chest pain as well. This may be perennial allergic rhinitis with lower respiratory component. Will try nasal steroids, and set him up for Stress Echo just to make sure no cardiac component to the chest pain. He wanted PSA screening. The meaning of a false positive PSA and a false negative PSA has been discussed, as well as the controversy on effect on mortality. The patient indicates his understanding of the limitations of this screening test, and has decided to have the test done. Patient Active Problem List: ACTINIC KERATOSIS[702.0] Priority: Medium [2] Comment: should be seen by heavy equipment supervisor yearly per plastic surgeon ALLERGIC RHINITIS NOS[477.9] Comment: mites MIXED HYPERLIPIDEMIA[272.2] HYPERTROPHY (BENIGN) PROSTATE[600.0] ESOPHAGEAL REFLUX[530.81] Comment: Hx of ulcer BUNION[727.1] Date Noted: 09/26/2000 FLATUL/ERUCTAT/GAS PAIN[787.3] Date Noted: 03/25/2002 TRIGGER FINGER[727.03] Date Noted: 08/11/2002 Review of patient's family history indicates: Diabetes Maternal Grandmother Stroke Maternal Grandmother Comment: in old age C.A.D. Maternal Uncle Comment: MA Colon CA Maternal Uncle Prostatic CA Paternal Grandfather Comment: 84 Prostatic [place] Other Comment: Cousin Tobacco Use: Quit Packs/Day: Years: Quit date: 02/06/1984 Alcohol Use: Yes 1 oz/week Quinazolines, Mometasone Furoate Monohydrate Review of patient's past surgical history indicates: HISTORY OF SURGERY = NONE OBJECTIVE: BP 140/82 Pulse 60 Temp (Src) 97.1 (Oral) Resp 18 Ht 5' 11 (1.80m) Wt 191 lbs (86.6kg) General appearance - healthy, alert, no distress, cooperative, smiling Skin - He has multiple areas of actinic keratoses, and he is sent for Derm consult. Head - Normocephalic. No masses, lesions, tenderness or abnormalities Eyes - conjunctivae/corneas clear. PERRL, EOM's intact. Ears - External ears normal. Canals clear. TM's normal. Nose/Sinuses - Nares normal. Septum midline. Mucosa normal. No drainage or sinus tenderness. Oropharynx - Lips, mucosa, and tongue normal. Teeth and gums normal. Neck - Neck supple. No adenopathy. Thyroid symmetric, normal size, Back - Back symmetric, no curvature. ROM normal. No CVA tenderness. Lungs - Percussion normal. Good diaphragmatic excursion. Lungs clear. Spirometry shows FEV1 of >100% expected for age, height, sex. Heart - PMI normal. No lifts, heaves, or thrills. RRR. No murmurs, clicks gallops or rub Abdomen - Abdomen soft, non-tender. BS normal. No masses, organomegaly Extremities - Extremities normal. No deformities, edema, or skin discoloration Musculoskeletal - Spine ROM normal. Muscular strength intact. Peripheral pulses - radial=4/4, femoral=4/4, popliteal=4/4, dorsalis pedis=4/4, Neuro - Gait normal. Reflexes normal and symmetric. Sensation grossly WNL. Genitalia - Penis normal. No urethral discharge. Scrotum normal to palpation. No hernia. Rectal - Rectal negative. Prostate palpation shows gland slightly enlarged without significant nodularity. Assessment: His blood pressure is too high, and I am adding diuretic. It is likely he will need HMGCoA medication as well once his labs are back, as he has multiple risk factors, and cholesterol was high in the past. Recheck in one month. Will contact patient when lab results available. Quick Note by: FABRICIO NICOLE on 01/02/03 at 5:15 PM. Will discuss at his Stress Echo documented in this encounter Nursing Notes 12/30/2002 9:00 AM CST >> HENRIETTA JOSEPH 12/30/2002 9:09 am Pt states that he is here fasting for cpx, pt has concerns about prostate and arthritis pain in neck causing discomfort, chronic cough with phlegm. Pt would also like heavy equipment supervisor. Sharp pain in rib cage last week. Questioned patient about current smoking habits. Pt. quit smoking some time ago. documented in this encounter Plan of Treatment Not on filedocumented as of this encounter Procedures Procedure Name Priority Date/Time Associated Diagnosis Comme nts PHYSICAL THERAPY Routine 03/25/2003 12:04 Cervicalgia REFERRAL 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 ADULT DERMATOLOGY Routine 03/17/2003 Actinic Keratosis REFERRAL HC CHEST TWO VIEWS, Routine 01/02/2003 11:45 Cough Resu lts for this FRONT/LAT AM GRINDER MACHINE KNIFE SETTER procedure are i n the results section. HCL PSA, DIAGNOSTIC Routine 12/31/2002 5:11 Screening Mal Resu lts for this (TUMOR MARKER) AM GRINDER MACHINE KNIFE SETTER Neop-Prostate procedure ar e in the results section. HCL COMPREHENSIVE Routine 12/31/2002 5:09 Routine Medica l Exam Results for this METABOLIC PANEL AM GRINDER MACHINE KNIFE SETTER Benign Hypertension proce dure are in the results section. HCL LIPID PANEL Routine 12/31/2002 5:09 MIXED HYPERLIPIDEMIA R esults for this AM GRINDER MACHINE KNIFE SETTER procedure are i n the results section. ZZCL AFF HEMOGLOBIN Routine 12/30/2002 9:46 Routine Medical Ex am Results for this AM GRINDER MACHINE KNIFE SETTER procedure are i n the results section. ZZC Routine 12/30/2002 9:41 Routine Medical Exam ELECTROCARDIOGRAM, AM GRINDER MACHINE KNIFE SETTER Benign Hypertension COMP W/READ HC VENOUS COLLECTION Routine 12/30/2002 9:36 Routine Med ical Exam AM GRINDER MACHINE KNIFE SETTER Benign Hypertens ion MIXED HYPERLIPIDEMIA HC SPIROMETRY, BREATH Routine 12/30/2002 Cough CAPACITY documented in this encounter Results CONSULT TO PHYSICAL THERAPY (03/25/2003 12:04 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) Narrative This result has an attachment that is no t available. Fabricio Nicole MD REFERRAL CONSULT TO DERMATOLOGY (03/17/2003) Narrative This result has an attachment that is no t available. Fabricio Nicole MD REFERRAL CHEST X-RAY 2 VW (01/02/2003 11:45 AM GRINDER MACHINE KNIFE SETTER) Anatomical Region Laterality Modality Other Narrative 01/02/2003 11:45 AM GRINDER MACHINE KNIFE SETTER REPORT OF OUTSIDE FILMS FROM: [facility] Patient: ??LO NEUMANN ?? Case No: ?? Birthdate: [birth year] Referring Physician: DR. FABRICIO NICOLE Exam Date: 12/30/02 Exam: TWO VIEW CHEST CLINICAL DATA: ??Cough. FINDINGS: ??Negative and unchanged from 06/28/00. ?? Andrew Dyson M.D. TOMY/ian D/T: ??12/30/02 Fabricio Nicole MD GENERAL IMAGING PSA, DIAGNOSTIC (12/31/2002 5:11 AM GRINDER MACHINE KNIFE SETTER) athologist Signature Sanches PSA 0.4 <0R=4.0 [place] NG/ML Comment: PSA VALUES FROM DIFFERENT ASSAY METHODS CANNOT BE USED INTERCHANGEABLY. THIS ASSAY WAS PER FORMED USING THE [employer] CHEMILUMINESCENT METHOD. Specimen (Source) Anatomical Location Collection Method / Collectio n Time Received Time / Laterality Volume 12/30/2002 Fabricio Nicole MD LABORATORY Performing Organization Address City/State/ZIP Code Phon e Number [place] (ABNORMAL) A.M.A. LIPID PANEL (12/31/2002 5:09 AM GRINDER MACHINE KNIFE SETTER) [facility] Method Time Signature Comments DNR [facility] Triglycerides 298 (H) <150 MG/DL [facility] Cholesterol 222 (H) <200 MG/DL [facility] Cholesterol 52 PERCENTILE [facility] Percentile HDL Cholesterol 37 (L) >39 MG/DL [facility] LDL Cholesterol 125 <130 MG/DL [facility] Calculated Comment: LDL CHOLESTEROL (MG/DL) GOALS AND CUTPOI NTS FOR THERAPEUTIC LIFESTYLE CHANGES (TLC) AND DRUG THERAPY IN DIFFERENT RISK CATEGORIES (AFTER EXCL USION OR, IF APPROPRIATE, TREATMENT OF SECONDARY C AUSES OF LDL ELEVATION). FROM NCEP ATP-III REPORT, SHYAM Plascencia 2000. RISK CATEGORY ?LDL GOAL ?LDL TO ? LDL TO CONSIDER ? INITIATE TLC ??DRUG THERAPY - CHD OR CHD ?>129 EQUIVALENTS: ?(100-129: 10 YR RISK >20% ?<100 ? >99 ? DRUG OPTIONAL) 2+ RISK FACTORS: 10 YR RISK 10-20% ??<130 ? >129 ?>129 - 2+ RISK FACTORS: 10 YR RISK <10% ?<130 ? >129 ?>159 - 0-1 RISK FACTORS: ??<160 ? >159 ?>189 ?(160-189: ?DRUG OPTIONAL) Cholesterol/HDL Ratio 6.0 (H) <5.0 [facility] Specimen (Source) Anatomical Location Collection Method / Collectio n Time Received Time / Laterality Volume 12/30/2002 Fabricio Nicole MD LABORATORY Performing Organization Address City/State/ZIP Code Phon e Number [place] A.M.A. COMPREHENSIVE MET.PANEL (12/31/2002 5:09 AM GRINDER MACHINE KNIFE SETTER) athologist Signature Comments DNR [place] Glucose 93 65 - 109 [place] MG/DL Sodium 141 135 - 146 [place] MMOL/L Potassium 5.1 3.5 - 5.3 [facility] [place] MMOL/L Chloride 106 98 - 110 [place] MMOL/L Urea Nitrogen 14 7 - 25 [facility] [place] MG/DL Creatinine 1.1 0.5 - 1.4 [place] MG/DL BUN/Creatinine 13 6 - 25 [place] [place] Ratio Calcium 9.5 8.5 - 10.4 [place] MG/DL Protein Total 7.4 6.0 - 8.3 [facility] G/DL Albumin 4.4 3.5 - 4.9 [facility] G/DL Globulin 3.0 2.2 - 4.2 [facility] Calculated G/DL A/G Ratio 1.5 0.8 - 2.0 [facility] Bilirubin Total 0.9 0.2 - 1.5 [facility] MG/DL Alkaline 101 20 - 125 [facility] Phosphatase U/L AST 25 2 - 50 U/L [facility] ALT 30 2 - 60 U/L [facility] Carbon Dioxide 26 21 - 33 [facility] MMOL/L Specimen (Source) Anatomical Location Collection Method / Collectio n Time Received Time / Laterality Volume 12/30/2002 Fabricio Nicole MD LABORATORY Performing Organization Address City/State/ZIP Code Phon e Number [place] (ABNORMAL) HEMOGLOBIN (12/30/2002 9:46 AM GRINDER MACHINE KNIFE SETTER) athologist Signature Hemoglobin 13.4 (A) 14 - 18 [facility] GM/DL Narrative [facility] - 12/30/2002 9:46 AM GRINDER MACHINE KNIFE SETTER reran x2 Fabricio Nicole MD LABORATORY Performing Organization Address City/State/ZIP Code Phon e Number [facility] INTERNAL ELECTROCARDIOGRAM, COMP W/READ (12/30/2002 9:41 AM GRINDER MACHINE KNIFE SETTER) Specimen (Source) Anatomical Collection Method Collection Time Re ceived Time Location / / Volume Laterality 12/30/2002 9:41 AM GRINDER MACHINE KNIFE SETTER Narrative This result has an attachment that is no t available. Fabricio Nicole MD EKG TECHNICAL Performing Organization Address City/[facility]/ZIP Code Phon e Number [facility] BREATHING CAPACITY TEST (12/30/2002) athologist Signature FEV-1 FVC Narrative This result has an attachment that is no t available. Fabricio Nicole MD PROCEDURES documented in this encounter Visit Diagnoses Diagnosis Cervicalgia - Primary Cough Routine general medical examination at a health care facility Actinic keratosis Essential hypertension, benign MIXED HYPERLIPIDEMIA Mixed hyperlipidemia Chest pain, unspecified Special screening for malignant neoplasm of prostate documented in this encounter Care Teams Die Cutter Relationship Specialty Start Date End Date Nasir Nciole MD PCP - General 02/18/99 10/06/13 [facility] [address] [place] [address] documented as of this encounter
--- OUTSIDE RECORDS SUMMARY | 2021-11-04 10:41 | XMS_ITS | Encounter Summary ---
:1945 Author Organization [place] Address [address] [facility] [place] [address] Care Team Providers Name Role Phone Nasir Velazquez MD Primary Care Provider [phone] Encounter Details Date Type Department Care Team Description 11/11/2002 Orders Only [facility] Nasir Velazquez DIAGNO SIS NOT YET Clinic Candy Chow MD DEFINED (Primary Dx) [address] [facility] [id number] [address] [facility] [phone] [place] [address] (Wo rk) Social History Tobacco Use Types Packs/Day Years Used Date Former Smoker Quit: 02/05/18 85 Alcohol Use Standard Drinks/Week Comments Yes 1.7 (1 standard drink = 0.6 oz pure alco hol) Sex Assigned at Date Recorded Male 01/15/2018 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 CL AFF SURGICAL Routine 11/11/2002 DIAGNOSIS NOT YET Results for this PATHOLOGY DEFINED procedure are i n the results section . documented in this encounter Results COLONOSCOPY (11/11/2002) Specimen (Source) Anatomical Location Collection Method / Collectio n Time Received Time / Laterality Volume 11/11/2002 Impressions Enedelia Morrison - 11/11/2002 00:00 ??Endoscopy Report ??HECTOR MALDONADO () ?? [Entered: interfaces, interfaces (FV Int erface) 20:23] ?? INDICATIONS FOR PROCEDURE: ?? Suspected hemoccult positive stool and bright red rectal bleeding. FINAL DIAGNOSIS: ??Minor to moderate int ernal hemorrhoids and sigmoid diverticulosis and small rectal polyps times two. PROCEDURE: ??Colonoscopy to the cecum an d ileocecal valve with colonoscopic polypectomy times two. DETAILS: ??After informed consent was ob tained was given, understood, and accepted by the patient, the patient 's history was taken to include no known drug allergies. ??The patient has an enlarged prostate for which he takes Cardura. ??He also takes Aciphex. ??His chest, cardiac, and abdominal exam is negative. ??The patien t is positioned left lateral on the endoscopy table. ??He was then sedated w ith a combination of fentanyl 0.2 mg in divided doses, Versed 2.0 mg i n divided doses, Glucagon 0.5 mg and Atropine 0.4 mg. ??After a normal digital rectal exam was performed, the Pentax 38 FCLR colonoscop e was utilized and passed through an excellent citrate of magnesia bowel prep to reach the cecum and ileocecal valve. ??The scope was wit hdrawn. ??The upper colon is normal except for sigmoid diverticulosis . Two diminutive benign appearing polyps measuring 1.5 mm and 3 mm respectively are located at the 6 and 8 cm level above the anal v erge. The larger polyp is removed by electrocautery snare and sent for per manent section. ??The smaller polyp is fulgurated to complete destruct ion by cautery snare. The patient also has 2+ internal hemorrhoids which a re symptomatic to the point where he is recommended to have rubber b and ligation or injections of these internal hemorrhoids in the office should he have persistent bleeding. ??Otherwise a total colonoscop y is recommended in five years time. HECTOR MALDONADO MD MT: lisha Document: ??[id number] [place], [place] Name: LO NEUMANN ENDOSCOPY REPORT Page 2 of 1 LCN: ENDO DSC: 11/11/2002 [place], [place] Name: LO NEUMANN MR#: : Procedure Date: [id number] 1945 11/11/2002 Doctor: HECTOR MALDONADO MD ENDOSCOPY REPORT Page 1 of 1 Nasir Velazquez MD PROCEDURES SURGICAL PATHOLOGY (11/11/2002) Specimen (Source) Anatomical Location Collection Method / Collectio n Time Received Time / Laterality Volume 11/11/2002 Impressions MISYS - 11/11/2002 CASE: [id number] MR#: [id number] Patient Name: LO NEUMANN. Collected: 11/11/02 Received: 11/12/02 Reported: 11/13/02 10:00 Ordering Phy(s): HECTRO MALDONADO SPECIMEN(S): Rectal polyp FINAL DIAGNOSIS: Tubular adenoma without high-grade dyspl geeta or malignancy, rectal polyp. Electronically signed out by: Elvin Renee M.D. CLINICAL HISTORY: Rectal bleeding. GROSS: The specimen, labeled rectal polyps at 8 cm, consists of a single reddish-purvis polyp measuring 0.5 cm in di ameter. ??It is totally embedded. DGB/shalonda MICROSCOPIC: A formal microscopic examination is perf ormed. GJC/shalonda 11/13/02 Nasir Velazquez MD LABORATORY Performing Organization Address City/State/ZIP Code Phon e Number MISYS documented in this encounter Visit Diagnoses Diagnosis DIAGNOSIS NOT YET DEFINED - Primary documented in this encounter Care Teams Biodiesel Operations Manager Relationship Specialty Start Date End Date Nasir Velazquez MD PCP - General 02/18/99 10/06/13 [facility] [id number] [place] [address] documented as of this encounter
--- OUTSIDE RECORDS SUMMARY | 2021-11-04 10:41 | XMS_ITS | Encounter Summary ---
:1945 Author Organization [place] Address [address] [facility] [place] [address] Care Team Providers Name Role Phone Nasir Velazquez MD Primary Care Provider [phone] Raghavendra Deras MD Primary Care Provider Unavailable Encounter Details Date Type Department Care Team Description 01/09/2003 Historic Results [facility] Heart Unknown, [facility] [address] [place] [address] Social History Tobacco Use Types Packs/Day Years Used Date Former Smoker Quit: 02/05/18 85 Alcohol Use Standard Drinks/Week Comments Yes 1.7 (1 standard drink = 0.6 oz pure alco hol) Sex Assigned at Date Recorded Male 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 Provider Scan CV ECHO ORDERABLES documented in this encounter Visit Diagnoses Not on filedocumented in this encounter Care Teams Credit Risk Analytics Manager Relationship Specialty Start Date End Date Nasir Velazquez MD PCP - General 02/18/99 10/06/13 [facility] [address] [place] [address] Raghavendra Deras MD PCP - General Family Practice 10/07/13 documented as of this encounter
--- OUTSIDE RECORDS SUMMARY | 2021-11-04 10:41 | XMS_ITS | Encounter Summary ---
:1945 Author Organization [place] Address [address] [facility] [place] [address] Care Team Providers Name Role Phone Nasir Velazquez MD Primary Care Provider [phone] Reason for Visit Reason Onset Date Comments Patient Request 01/27/2005 Encounter Details Date Type Department Care Team Description 01/27/2005 Telephone [facility] Diogo Velazquez MD Patient Request Comfort [id number] [facility] [address] [place] [address] [place] [address] [phone] Social History Tobacco Use Types Packs/Day Years Used Date Former Smoker Quit: 02/05/18 85 Alcohol Use Standard Drinks/Week Comments Yes 1.7 (1 standard drink = 0.6 oz pure alco hol) socially Sex Assigned at Date Recorded Male 01/15/2018 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 CH ENGINE MARKETING SPECIALIST Telephone Encounter - Ivone Dubon - 01/27/2005 12:25 PM CST Carlos states that there is no more refills on his RX, would like to come in to have LIPIDS checked before the end of the year (insurance reasons) If OK, please put in future order, and then we can contact pt for lab only appt. Pt can reached at [phone]. Was seen last on 08/05/04. Yashira Dubon CMA CH ENGINE MARKETING SPECIALIST documented in this encounter Plan of Treatment Not on filedocumented as of this encounter Visit Diagnoses Diagnosis Mixed hyperlipidemia Essential hypertension, benign documented in this encounter Care Teams Automation Qa Analyst Relationship Specialty Start Date End Date Nasir Velazquez MD PCP - General 02/18/99 10/06/13 [facility] [address] [place] [address] documented as of this encounter
--- OUTSIDE RECORDS SUMMARY | 2021-11-04 10:41 | XMS_ITS | Encounter Summary ---
:1945 Author Organization [place] Address [facility]0 [facility] [place] [address] Care Team Providers Name Role Phone Nasir Nicole MD Primary Care Provider [phone] Reason for Visit Reason Onset Date Comments Lab Result Notice 01/15/2004 x ray Encounter Details Date Type Department Care Team Description 01/15/2004 Telephone [facility] Nasir Nicole Lab Re sult Notice (x Clinic [place] MD Gerlado ray) [address] [place], [place] [address] [facility] [address] [facility] [phone] [place] [address] (Wo rk) Social History Tobacco Use Types Packs/Day Years Used Date Former Smoker Quit: 02/05/18 85 Alcohol Use Standard Drinks/Week Comments Yes 1.7 (1 standard drink = 0.6 oz pure alco hol) Sex Assigned at Date Recorded Male 01/15/2018 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 No significant disease seen related to his complaints. >> ANIYA ARCE SunJan 15, 2004 11:56 AM SAB, what would you like us to tell the pt? Aniya Arce CMA >> ANIYA ARCE SunJan 15, 2004 11:54 AM Staff Message copied by ANIYA ARCE on 01/15/2004 at 11:54 AM ------ Message from: EDYTA MUNSON Created: 01/15/2004 at 11:45 AM Regarding: Phone Message Contact: Terry saw Dr Skye Nicole on 01-07. He would like to know the result's of his X- ray's. Please call Terry at [phone] 01-14@11:30a.m. documented in this encounter Plan of Treatment Not on filedocumented as of this encounter Visit Diagnoses Not on filedocumented in this encounter Care Teams Therapist Phys Relationship Specialty Start Date End Date Nasir Nicole MD PCP - General 02/18/99 10/06/13 [id number] [place] [address] documented as of this encounter
--- OUTSIDE RECORDS SUMMARY | 2021-11-04 10:41 | XMS_ITS | Encounter Summary ---
:1945 Author Organization [place] Address [address] [place] [address] Care Team Providers Name Role Phone Nasir Velazquez MD Primary Care Provider [phone] Raghavendra Deras MD Primary Care Provider Unavailable Raghavendra Deras MD Unavailable Unavailable Raghavendra Deras MD Unavailable Unavailable Encounter Details Date Type Department Care Team Description 01/09/2003 [facility] SiddharthDiogo garibay, EST PAIN NOS (Primary Dx); Physicians MIXED HYPERLIPIDEMIA ; [address] [address] [facility] BENIGN HYPERTENSION ; [address] [place], [place] MIXED HYPERLIPIDEMIA; [place] [address] AFTERCARE DETENTION USE MEDICATN [address] [phone] Social History Tobacco Use Types Packs/Day Years [...] at Date Recorded 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 Risk factors for coronary artery disease include:hyperlipidemia, hypertension and sedentary life style The patient was exercised according to the Yunior Protocol, and achieved a total treadmill time of 7:45. At that time the test was stopped because the patient was having trouble keeping up with the treadmill and had exceeded his predicted maximum heart rate. The resting pulse was 98 bpm, and the maximum heart rate achieved was 171. The predicted maximum for his age was 163 bpm. The resting blood pressure was 124/92 and the maximum was 180/80. During recovery, the pulse fell smoothly, and returned to 100 by 5 minutes after exercise was stopped. The resting EKG was within normal limits. The patient experienced no chest pain, syncope, nor dyspnea. Objectively, the tracing showed no significant ectopy, nor any significant ST-T wave changes. Pre and post exercise echocardiograms were obtained, and appeared normal to the technical training manager, but formal interpretation is left to the Cadd Manager. Assessment: 1) Negative subjective stress EKG 2) Negative objective stress EKG 3) Echo report from Cadd Manager is pending 4) Risk factors for coronary artery disease include:hyperlipidemia, hypertension and sedentary lifestyle 5) Recommendations for follow up include: Work on diet and aerobic exercise program & start HMGCoA medication. recheck lipid & liver profile tests in four to six weeks. We will check his blood pressure at that time (just went on HCTZ last week for hypertension). Signed: Diogo Velazquez MD documented in this encounter Plan of Treatment Not on filedocumented as of this encounter Visit Diagnoses Diagnosis Chest pain, unspecified - Primary MIXED HYPERLIPIDEMIA Mixed hyperlipidemia BENIGN HYPERTENSION Essential hypertension, benign Encounter for long-term (current) use of other medications documented in this encounter Care Teams Trestle Mechanic Relationship Specialty Start Date End Date Nasir Velazquez MD PCP - General 02/18/99 10/06/13 [facility] [address] [place] [address] Raghavendra Deras MD PCP - General Family Practice 10/07/13 Raghavendra Deras MD PCP - Assigned PCP 01/23/16 04/09/18 Raghavendra Deras MD Assigned PCP 01/23/16 05/14/21 documented as of this encounter
--- OUTSIDE RECORDS SUMMARY | 2021-11-04 10:41 | XMS_ITS | Encounter Summary ---
:1945 Author Organization [place] Address [address] [place] [address]. [place] [address] Care Team Providers Name Role Phone Nasir Velazquez MD Primary Care Provider [phone] Reason for Visit Reason Onset Date Comments Refill Request 08/21/2003 Encounter Details Date Type Department Care Team Description 08/21/[address] 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 documented as of this encounter Miscellaneous Notes Telephone Encounter - 08/21/2003 3:46 PM CDT >> JIM MELGAR Fri Aug 21, 2003 3:47 PM Pt called with the following: He called pharm and the Rx for Lipitor did not go thru, please refax to [email or web address] documented in this encounter Plan of Treatment Not on filedocumented as of this encounter Visit Diagnoses Diagnosis MIXED HYPERLIPIDEMIA Mixed hyperlipidemia documented in this encounter Care Teams Gas Meter Repairer Relationship Specialty Start Date End Date Nasir Velazquez MD PCP - General 02/18/99 10/06/13 [facility] [address] [place] [address] documented as of this encounter
--- OUTSIDE RECORDS SUMMARY | 2021-11-04 10:41 | XMS_ITS | Encounter Summary ---
:1945 Author Organization [place] Address [facility] [place] [address] Care Team Providers Name Role Phone Nasir Velazquez MD Primary Care Provider [phone] Reason for Visit Reason Onset Date Comments Refill Request 08/21/2003 Encounter Details Date Type Department Care Team Description 08/21/2003 Refill [facility] Dillan Fajardo MD Refill Request Physicians XXX RETIRED XXX [address] [address] [address] [address] [address] [place] [address] [place] [address] [phone] Social History Tobacco Use Types Packs/Day Years Used Date Former Smoker Quit: 02/05/18 85 Alcohol Use Standard Drinks/Week Comments Yes 1.7 (1 standard drink = 0.6 oz pure alco hol) Sex Assigned at Date Recorded 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 called [facility] where his Rx faxed. It been faxed to [email or web address]. documented in this encounter Plan of Treatment Not on filedocumented as of this encounter Visit Diagnoses Not on filedocumented in this encounter Care Teams Staking Technician Relationship Specialty Start Date End Date Nasir Velazquez MD PCP - General 02/18/99 10/06/13 [facility] [address] [place] [address] documented as of this encounter
--- OUTSIDE RECORDS SUMMARY | 2021-11-04 10:41 | XMS_ITS | Encounter Summary ---
:1945 Author Organization [place] Address [address] [facility] [place] [address] Care Team Providers Name Role Phone Nasir Velazquez MD Primary Care Provider [phone] Reason for Referral - Closed Specialty Diagnoses / Procedures Referred By Contact Refer red To Contact Diagnoses Cervicalgia Diogo Velazquez MD [id number] [place], [place] [address] Referral ID Status Reason Start Date Expiration Date Visits Requ ested Visits Authorized [id number] Closed 01/08/2004 02/04/2011 1 1 CASHIER Reason for Visit Reason Comments Foot Problems Medication Request renew meds Encounter Details Date Type Department Care Team Description [facility] Clinic Candy Rojas MD MIXED HYPERLIPIDEMIA ; [address] [facility] [id number] [place] [facility] USE [facility]I CAT[facility]; [place], [place] AV BENIGN HYPERTENSION; [address] [place], [place] ESOPHAGEAL REFLUX ; [phone] [address] HYPERTROPHY of PROSTATE ; [phone] PAIN IN Rt Foot (Work) Social History Tobacco Use Types Packs/Day Years Used Date Former Smoker Quit: 02/05/18 85 Alcohol Use Standard Drinks/Week Comments Yes 1.7 (1 standard drink = 0.6 oz pure alco hol) Sex Assigned at Date Recorded 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 documented as of this encounter Last Filed Vital Signs Vital Sign Reading Time Taken Comments Blood Pressure 131/80 01/08/2004 11:11 AM BANK CASHIER Pulse 56 01/08/2004 11:11 AM BANK CASHIER Temperature 36.6 ??C (97.8 ??F) 01/08/2004 11:11 AM BANK CASHIER Respiratory Rate - - Oxygen Saturation - - Inhaled Oxygen Concentration - - Weight 86.6 kg (191 lb) 01/08/2004 11:11 AM BANK CASHIER Height 177.8 cm (5' 10) 01/08/2004 11:11 AM BANK CASHIER Body Mass Index 27.41 01/08/2004 11:11 AM BANK CASHIER documented in this encounter Progress Notes 01/08/2004 11:00 AM BANK CASHIER SUBJECTIVE: Lo Neumann, a 58 year old male scheduled an appointment to discuss the following issues: MIXED HYPERLIPIDEMIA BENIGN HYPERTENSION ESOPHAGEAL REFLUX 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 Foot CERVICALGIA Medical, social, surgical, and family histories reviewed. OBJECTIVE: BP 131/80 Pulse 56 Temp (Src) 97.8 (Tympanic) Ht 5' 10 (1.78m) Wt 191 lbs (86.6kg) EXAM: GENERAL APPEARANCE: healthy, alert and no distress NECK: no adenopathy, no asymmetry, masses, or scars and thyroid normal to palpation. His neck rangeof motion is slightly decreased in all directions, and he has tight trap muscles to palpation on theleft side. MS: extremities normal- no gross deformities noted, no evidence of inflammation in joints, FROM in all extremities. There is tenderness over the lateral right foot to palpation, and subtle swelling ofthe tendon sheath on the top lateral aspect of the foot. ASSESSMENT/PLAN: 272.2 MIXED HYPERLIPIDEMIA Note: lipid & liver profile checked and Continue current medications for the time being. Recheck these tests in six months. Plan: A.M.A. LIPID PANEL, ALANINE AMINO (ALT) (SGPT), LIPITOR 10 MG OR TABS 401.1 BENIGN HYPERTENSION Note: Under good control. Plan: Continue current medications for the time being. I sent the Rxs to the pharmacies ([facility] ) [phone] ESOPHAGEAL REFLUX Note: Doing well with his branded proton pump inhibitors & want to Continue current medications. Plan: NEXIUM 40 MG OR CPDR 600.00 HYPERTROPHY of PROSTATE Note: His benign prostatic hypertrophy is controlled well with the CARDURA 4 MG OR TABS & perhaps getting some blood pressure control as well. Plan continue same. 729.5 PAIN IN Rt Foot Note: Xray is negative. Likely secondary to pressure from shoe. Try Hurley II inhibitors which may help his neck as well. Given his reflux, these would be better tolerated than NSAIDs. Plan: X-RAY FOOT 3+ VW, CELEBREX 200 MG OR CAPS Recheck immediately if worsening, or if not improving in a few weeks, otherwise PRN. 723.1 CERVICALGIA Note:Has had chronic pain in the neck. Saw Physical Therapy a number of years ago & did better for a while with exercise program. They had suggested to him at one time that traction therapy might be helpful. He says he is better when he pulls on his own neck & is requesting traction treatment. I have sent him to [facility] and if appropriate, can have that arranged for home. Plan: CONSULT [facility] (PT & CHIRO), X-RAY CERV SPINE 2 OR 3 VIEW, CELEBREX 200 MG OR CAPS documented in this encounter Nursing Notes 01/08/2004 11:00 AM CST >> ZACH DANIELSON 01/08/2004 11:12 am Lo Neumann presents for foot pain and renew meds. Initial BP 131/80 Pulse 56 Temp (Src) 97.8 (Tympanic) Ht 5' 10 (1.78m) Wt 191 lbs (86.6kg). BP completed using cuff size: regular. Pt hasn't eaten or drank anything but water for [address]. [address] Lind may want to do a lipid test. Zach Danielson documented in this encounter Plan of Treatment Pending Results Name Type Priority Associated Diagnoses Date/Ti sd X-RAY CERV SPINE 2 OR 3 Imaging Routine Cervicalgia 04/2003 12:06 PM BANK CASHIER VIEW documented as of this encounter Procedures Procedure Name Priority Date/Time Associated Diagnosis Comme nts Z [facility] PT AND HAND Routine 01/27/2004 Cervicalgia REFERRAL HC X-RAY FOOT Routine 01/08/2004 12:39 PAIN IN Rt Foot Results for this COMPLETE >=3 VIEWS PM BANK CASHIER procedure are in the results section. HCL ALT Routine 01/08/2004 11:48 MIXED HYPERLIPI DEMIA Results for this AM BANK CASHIER Aftercare Farm Consultant Use proc edure are in Medicatn the results section. CL AFF A.M.A. Routine 01/08/2004 11:48 MIXED HYPERLIPI DEMIA Results for this LIPID PANEL AM BANK CASHIER Aftercare Long-Term Use proc edure are in Medicatn the results section. documented in this encounter Results CONSULT [facility] (PT & CHIRO) (01/27/2004) Narrative This result has an attachment that is no t available. Diogo Velazquez MD REFERRAL X-RAY FOOT 3+ VW (01/08/2004 12:39 PM BANK CASHIER) Anatomical Region Laterality Modality Other Specimen (Source) Anatomical Collection Method Collection Time Re ceived Time Location / / Volume Laterality 01/08/2004 12:39 PM BANK CASHIER Impressions 01/08/2004 12:39 PM BANK CASHIER REPORT OF OUTSIDE FILMS FROM [facility] LO NEUMANN : ??45 THREE-VIEW RIGHT FOOT: ??01/08/04 HISTORY: ??Right foot pain. COMPARISON: ??None. FINDINGS: ??There is a prominent hallux valgus deformity with hammertoe deformities of the 2nd through 5th toes. ??The right foot is otherwise unremarkable. Raj Jiménez M.D./leighann D/T: ??01/12/04 Ordering MD/Provider Initial Interpretat ion: Normal/Negative. Electronically filed by Zach Danielson ??01/08/2004 ??12:40 PM Diogo Velazquez MD GENERAL IMAGING ALANINE AMINO (ALT) (SGPT) (01/08/2004 11:48 AM BANK CASHIER) P athologist Signature ALT 59 0 - 70 U/L [facility] Specimen Anatomical Collection Method Collection Time Receive d Time (Source) Location / / Volume Laterality 01/08/2004 11:48 01/08/2004 AM BANK CASHIER 11:49 AM BANK CASHIER Diogo Velazquez MD LABORATORY Performing Organization Address City/State/ZIP Code Phon e Number [address] [address] [facility] A.M.A. LIPID PANEL (01/08/2004 11:48 AM BANK CASHIER) athologist Signature Cholesterol 192 <200 mg/dL [facility] Comment: Cholesterol Reference Range: <200 ??The NCEP recommends further ? evaluation of: ? 1. ??Patients with cholesterol ? greater than 200 mg/dL ? if additional risk facto rs ? are present. ? 2. ??All patients with a ? cholesterol greater than ? 240 mg/dL. Triglycerides 93 <150 mg/dL [facility] HDL Cholesterol 57 >40 mg/dL [facility] LDL Cholesterol Calculated 116 0 - 129 mg/dL [facility] VLDL-Cholesterol 19 0 - 30 mg/dL [facility] Cholesterol/HDL Ratio 3.4 0.0 - 5.0 [facility] Specimen Anatomical Collection Method Collection Time Receive d Time (Source) Location / / Volume Laterality 01/08/2004 11:48 01/08/2004 AM BANK CASHIER 11:49 AM BANK CASHIER Diogo Velazquez MD LABORATORY Performing Organization Address City/State/ZIP Code Phon e Number [address] [address] [facility] documented in this encounter Visit Diagnoses Diagnosis Cervicalgia - Primary MIXED HYPERLIPIDEMIA Mixed hyperlipidemia Encounter for long-term (current) use of other medications Essential hypertension, benign ESOPHAGEAL REFLUX Esophageal reflux HYPERTROPHY of PROSTATE Hypertrophy of prostate without urinary obstruction and other lower urinary tract symptoms (LUTS) PAIN IN Rt Foot Pain in limb documented in this encounter Care Teams Seat Builder Relationship Specialty Start Date End Date Nasir Velazquez MD PCP - General 02/18/99 10/06/13 [facility] [address] [place] [address] documented as of this encounter
--- OUTSIDE RECORDS SUMMARY | 2021-11-04 10:41 | XMS_ITS | Encounter Summary ---
:1945 Author Organization [place] Address [address] [facility] [place] [address] Care Team Providers Name Role Phone Nasir Velazquez MD Primary Care Provider Reason for Visit Reason Comments RECHECK Encounter Details Date Type Department Care Team Description 02/03/2003 Office Visit [facility] Diogo Velazquez MIXED HY PERLIPIDEMIA; Physicians MD Bob AFTERCARE INTERMEDIATE USE MEDICATN; [address] [facility] [address] [id number] [place] BENIGN HYPERTENSION ; [address] [place] [address] [phone] (Wo rk) Social History Tobacco Use Types Packs/Day Years Used Date Former Smoker Quit: 02/05/18 85 Alcohol Use Standard Drinks/Week Comments Yes 1.7 (1 standard drink = 0.6 oz pure alco hol) Sex Assigned at Date Recorded Male 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 documented as of this encounter Last Filed Vital Signs Vital Sign Reading Time Taken Comments Blood Pressure 136/70 02/03/2003 10:45 AM COST RECOVERY TECHNICIAN Pulse - - Temperature 36.4 ??C (97.6 ??F) 02/03/2003 10:45 AM COST RECOVERY TECHNICIAN Respiratory Rate - - Oxygen Saturation - - Inhaled Oxygen Concentration - - Weight 87.5 kg (193 lb) 02/03/2003 10:45 AM COST RECOVERY TECHNICIAN Height - - Body Mass Index 26.92 12/30/2002 9:00 AM COST RECOVERY TECHNICIAN documented in this encounter Progress Notes 02/03/2003 10:45 AM COST RECOVERY TECHNICIAN In for recheck on blood pressure and cholesterol review. CHOLESTEROL (MG/DL) Date Value Low High Status 12/31/2002 222* <200 Final ]. He will have lipid & liver profile done today & I will contact the patient when lab results available. ############################################################## Will want hard copy to send to [email or web address] if lipid & liver profile are within normal limits. ############################################################## Also we looked at his blood pressure. Technically still above ideal though in range by old standards. with all his risk factors, we will add LIZZ inhibitor to his diuretic and recheck blood pressure next month. Talked to a coworker who had costochondritis, and he said those symptoms were similar to what he had pre stress test & wanted to know if he could have had that (yes). In any event, this is now resolved. Finally, he found the Nexium much more effective than his old proton pump inhibitors and asked for refills on this. Granted. documented in this encounter Nursing Notes 02/03/2003 10:45 AM CST >> ONIEL BARRIOS 02/03/2003 10:58 am Patient is here to follow up on his new medications and to go over the results of his stress test. Questioned patient about current smoking habits. Pt. has never smoked. documented in this encounter Plan of Treatment Not on filedocumented as of this encounter Procedures Procedure Name Priority Date/Time Associated Diagnosis Comme nts LABELS Routine 02/03/2003 12:04 Mixed Hyperlipidemia PM COST RECOVERY TECHNICIAN LABELS Routine 02/03/2003 12:02 Mixed Hyperlipi demia PM COST RECOVERY TECHNICIAN Aftercare Passenger Service Representative Use Medicatn HCL HEPATIC PANEL Routine 02/03/2003 11:26 Mixed Hyperli pidemia Results for this AM COST RECOVERY TECHNICIAN Aftercare Detention procedur e are in Use Medicatn the results section. HCL LIPID PANEL Routine 02/03/2003 11:26 Mixed Hyperlipi demia Results for this AM COST RECOVERY TECHNICIAN Aftercare Passenger Service Representative procedur e are in Use Medicatn the results section. HC VENOUS Routine 02/03/2003 11:26 Mixed Hyperlipi demia COLLECTION AM COST RECOVERY TECHNICIAN Aftercare Detention Use Medicatn documented in this encounter Results (ABNORMAL) A.M.A. LIPID PANEL (02/03/2003 11:26 AM COST RECOVERY TECHNICIAN) Patholo gist Method Time Signature Comments DNR [facility] Triglycerides 179 (H) <150 MG/DL [facility] Cholesterol 179 <200 MG/DL [facility] Cholesterol 14 PERCENTILE [facility] Percentile HDL Cholesterol 51 >39 MG/DL [facility] LDL Cholesterol 92 <130 MG/DL [facility] Calculated Cholesterol/HDL 3.5 <5.0 [facility] Ratio Specimen (Source) Anatomical Collection Method Collection Time Re ceived Time Location / / Volume Laterality 02/03/2003 11:26 02/03/2003 AM COST RECOVERY TECHNICIAN Diogo Velazquez MD LABORATORY Performing Organization Address City/State/ZIP Code Phon e Number [facility] [place] A.M.A. HEPATIC PANEL (02/03/2003 11:26 AM COST RECOVERY TECHNICIAN) P athologist Signature Comments DNR [facility] Protein Total 7.8 6.0 - 8.3 [facility] G/DL Albumin 4.3 3.5 - 4.9 [facility] G/DL Globulin 3.5 2.2 - 4.2 [facility] Calculated G/DL A/G Ratio 1.2 0.8 - 2.0 [facility] Bilirubin Total 0.6 0.2 - 1.5 [facility] MG/DL Bilirubin Direct 0.1 0.0 - 0.3 [facility] [place] MG/DL Alkaline 121 20 - 125 [facility] Phosphatase U/L AST 24 2 - 50 U/L [facility] [place] ALT 28 2 - 60 U/L [facility] Specimen (Source) Anatomical Collection Method Collection Time Re ceived Time Location / / Volume Laterality 02/03/2003 11:26 02/03/2003 AM COST RECOVERY TECHNICIAN Diogo Velazquez MD LABORATORY Performing Organization Address City/State/ZIP Code Phon e Number [place] documented in this encounter Visit Diagnoses Diagnosis Mixed hyperlipidemia Encounter for long-term (current) use of other medications BENIGN HYPERTENSION Essential hypertension, benign ESOPHAGEAL REFLUX Esophageal reflux documented in this encounter Care Teams Security Technician Relationship Specialty Start Date End Date Nasir Velazquez MD PCP - General 02/18/99 10/06/13 [facility] [address] [place] [address] documented as of this encounter
--- OUTSIDE RECORDS SUMMARY | 2021-11-04 10:41 | XMS_ITS | Encounter Summary ---
:1945 Author Organization [place] Address [facility] [place] [address] Care Team Providers Name Role Phone Nsair Velazquez MD Primary Care Provider [phone] Reason for Visit Reason Comments forms records release to Dr. Gonzales, 04/01/02 Encounter Details Date Type Department Care Team Description 04/01/2002 Telephone [facility], Provider (re cords release to Physicians Dr. 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 Contact: pt. came to our office to see Dr. Apple he filled out an authorization to release records to Dr. apple the release was scanned the records were given to Dr. Apple's staff documented in this encounter Plan of Treatment Not on filedocumented as of this encounter Visit Diagnoses Diagnosis SCANNING RESULTS - Primary documented in this encounter Care Teams Client Partner Relationship Specialty Start Date End Date Nasir Velazquez MD PCP - General 02/18/99 10/06/13 [facility] [address] [facility] [place] [address] documented as of this encounter
--- OUTSIDE RECORDS SUMMARY | 2021-11-04 10:41 | XMS_ITS | Encounter Summary ---
:1945 Author Organization [place] Address [address] [facility] [place] [address] Care Team Providers Name Role Phone Nasir Velazquez MD Primary Care Provider [phone] Reason for Visit Reason Comments Blood Draw Encounter Details Date Type Department Care Team Description 02/17/2002 Orders Only [facility] Diogo Velazquez SC REENING-LIPOID Physicians DISORDERS (Primary [address] [address] [facility] Dx) [address] [place] [address] [phone] Social History Tobacco Use Types Packs/Day Years Used Date Former Smoker Quit: 02/05/18 85 Alcohol Use Standard Drinks/Week Comments Yes 1.7 (1 standard drink = 0.6 oz pure alco hol) Sex Assigned at Date Recorded Male 01/15/2018 11:39 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 HC VENOUS COLLECTION Routine 02/17/2002 9:07 AM Screening-Lipo id DROP HAMMER SETTER UP Disorders documented in this encounter Results (ABNORMAL) A.M.A. LIPID PANEL (02/17/2002 9:07 AM DROP HAMMER SETTER UP) [facility] Method Time Signature Comments DNR [facility] Triglycerides 155 (H) <150 MG/DL [facility] Cholesterol 207 (H) <200 MG/DL [facility] Cholesterol 36 PERCENTILE [facility] Percentile HDL Cholesterol 41 >39 MG/DL [facility] LDL Cholesterol 135 (H) <130 MG/DL [facility] Calculated Comment: LDL CHOLESTEROL (MG/DL) GOALS AND [...] >159 ?>189 ?(160-189: ?DRUG OPTIONAL) Cholesterol/HDL Ratio 5.0 (H) <5.0 [facility] Specimen (Source) Anatomical Collection Method Collection Time Re ceived Time Location / / Volume Laterality 02/17/2002 9:07 AM 3 DROP HAMMER SETTER UP Diogo Velazquez MD LABORATORY Performing Organization Address City/State/ZIP Code [facility] e Number [facility] documented in this encounter Visit Diagnoses Diagnosis Screening for lipoid disorders - Primary documented in this encounter Care Teams Order Analyst Relationship Specialty Start Date End Date Nasir Velazquez MD PCP - General 02/18/99 10/06/13 [facility] [address] [place] [address] documented as of this encounter
--- OUTSIDE RECORDS SUMMARY | 2021-11-04 10:41 | XMS_ITS | Encounter Summary ---
:1945 Author Organization [place] Address [facility] [place] [address] Care Team Providers Name Role Phone Nasir Velazquez MD Primary Care Provider [phone] Reason for Visit Reason Onset Date Comments Pain 08/17/2003 Knee Encounter Details Date Type Department Care Team Description 08/17/2003 Telephone [facility] Sharath Nam MD Pain (Knee) Physicians XXX RETIRED XXX [address] [place] [address] [address] [address] [address] [place] [address] [place] [address] [phone] Social History Tobacco Use Types Packs/Day Years Used Date Former Smoker Quit: 02/05/18 85 Alcohol Use Standard Drinks/Week Comments Yes 1.7 (1 standard drink = 0.6 oz pure alco hol) Sex Assigned at Date Recorded Male 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 >> SHARATH NAM SunAug 17, 2003 8:38 AM Alternate warm moist soaks with ice, about 15 min. per time. Try to do this 4 times per day, if poss ible. take tylenol for pain. if still pain in one week, then recheck. >> ONIEL BARRIOS Mon Aug 17, 2003 8:32 AM Patient was in to see JDR on 08/15/2003 for his Knee. Patient was told to use ice. Patient is wonderi ng if he should have a brace or exercises for this knee because the ice alone is not working for him . documented in this encounter Plan of Treatment Not on filedocumented as of this encounter Visit Diagnoses Not on filedocumented in this encounter Care Teams Construction Safety Consultant Relationship Specialty Start Date End Date Nasir Velazquez MD PCP - General 02/18/99 10/06/13 [facility] [address] [place] [address] documented as of this encounter
--- OUTSIDE RECORDS SUMMARY | 2021-11-04 10:41 | XMS_ITS | Encounter Summary ---
:1945 Author Organization [place] Address [address] [facility] [place] [address] Care Team Providers Name Role Phone Nasir Velazquez MD Primary Care Provider [phone] Reason for Visit Reason Comments Call Back Encounter Details Date Type Department Care Team Description 12/30/2002 Telephone [facility] Diogo Velazquez MD Call Back Physicians [id number] [facility] [address] [place] [address] [address] [place] [address] [phone] Social History Tobacco Use Types Packs/Day Years Used Date Former Smoker Quit: 02/05/18 85 Alcohol Use Standard Drinks/Week Comments Yes 1.7 (1 standard drink = 0.6 oz pure alco hol) Sex Assigned at Date Recorded Male 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 >> HENRIETTA JOSEPH Tue Dec 30, 2002 4:23 PM >> CALL RECEIVED. Contact: Pt needs to be set up for a Stress Echo per BAB-dx of Chest pain, hypertension and hyperlipidemia, I have attempted to contact this patient by phone with the following results: left message to return my call on answering machine. documented in this encounter Plan of Treatment Not on filedocumented as of this encounter Visit Diagnoses Not on filedocumented in this encounter Care Teams Linux Admin Engineer Relationship Specialty Start Date End Date Nasir Velazquez MD PCP - General 02/18/99 10/06/13 [facility] [address] [place] [address] documented as of this encounter
--- OUTSIDE RECORDS SUMMARY | 2021-11-04 10:41 | XMS_ITS | Encounter Summary ---
:1945 Author Organization [place] Address [facility]0 [facility] [place] [address] Care Team Providers Name Role Phone Nasir Velazquez MD Primary Care Provider [phone] Reason for Visit Reason Comments Musculoskeletal Problem Encounter Details Date Type Department Care Team Description 08/13/2003 Office Visit [facility] Dillan Fajardo MIXED HYP ERLIPIDEMIA (Primary Dx); Physicians MD Geoff AFTERCARE FORENSIC SCIENTIST USE MEDICATN; [address] XXX RETIRED XXX BENIGN HYPERTENSION ; [address] [place], [place] [address] [address] [place], [place] [phone] [address] Social History Tobacco Use Types Packs/Day Years Used Date Former Smoker Quit: 02/05/18 85 Alcohol Use Standard Drinks/Week Comments Yes 1.7 (1 standard drink = 0.6 oz pure alco hol) Sex Assigned at Date Recorded Male 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 Current prescriptions: LIPITOR 10 MG OR TABS 1 tab PO QD (Once per day) HYDROCHLOROTHIAZIDE 25 MG OR TABS 1 TAB PO QD (Once per day) NEXIUM 40 MG OR CPDR 1 CAPSULE DAILY CARDURA 4 MG OR TABS 1 TABLET DAILY RHINOCORT AQUA 32 MCG/ACT NA SUSP 1 spray in each nostril once per day Cardiovascular risk analysis - 58 year old male LDL goal is under 100, nondiabetic, no existing CAD. ROS: taking medications as instructed, no medication side effects noted, no TIA's, no chest pain onexertion, no dyspnea on exertion, no swelling of ankles. New concerns: r knee is painful. Objective: BP 114/76 Wt 184 lbs (83.5kg) Appearance healthy, alert and cooperative. General exam BP noted to be well controlled today in office, S1, S2 normal, no gallop, no murmur, chest clear, no JVD, no HSM, no edema. Knee: R knee is painful along the insertion of Pes ans. tendon knee joint is otherwise normal. Lab review: labs pending Assessment: Hyperlipidemia stable. Plan: current treatment plan is effective, no change in therapy, lab results and schedule of future lab studies reviewed with patient, repeat labs ordered prior to next appointment, orders and follow up as documented in EpicCare, reviewed diet, exercise and weight control, cardiovascular risk and specific lipid/LDL goals reviewed, reviewed medications and side effects in detail, use of aspirin to preven tMI and TIA's discussed. 401.1 BENIGN HYPERTENSION Note: No history of cough, wheezing, dyspnea, hemoptysis, asthma, or pneumonia. Plan: A.M.A. COMPREHENSIVE MET.PANEL Continue with current meds. 844.9 SPRAIN OF KNEE & LEG NOS Note: as noted Plan: X-RAY KNEE 3 VIEW Xray is neg Warm moist soaks, 15 min each time, qid for 3-4 days. Call or return to clinic prn if these symtoms worsen, fail to improve as anticipated, or if new symptoms develop. documented in this encounter Nursing Notes 08/13/2003 10:45 AM CDT >> CAROL JOSEPHSA 08/13/03 11:05 am Pt states that he is here fasting for lab work and refills. PT also here for right knee pain 2 weekswith activity worsening since that time. No decrease in ROM. documented in this encounter Plan of Treatment Not on filedocumented as of this encounter Procedures Procedure Name Priority Date/Time Associated Diagnosis Comme nts HCL COMPREHENSIVE Routine 08/14/2003 5:28 MIXED HYPERLIP IDEMIA Results for this METABOLIC PANEL AM CDT BENIGN HYPERTENSION proce dure are in the results section. HCL LIPID PANEL Routine 08/14/2003 5:28 MIXED HYPERLIPIDEMIA R esults for this AM CDT procedure are i n the results section. HC VENOUS COLLECTION Routine 08/13/2003 11:17 MIXED HYPERLIPID EMIA AM CDT HC X-RAY KNEE 3 VIEWS Routine 08/13/2003 Sprain Of Knee & Le g Results for this Nos procedure are i n the results section. documented in this encounter Results (ABNORMAL) A.M.A. COMPREHENSIVE MET.PANEL (08/14/2003 5:28 AM CDT) Analysis Performed At Patho logist Time Signature Comments DNR [facility] Glucose 100 (H) 65 - 99 [facility] MG/DL Sodium 140 135 - 146 [facility] MMOL/L Potassium 3.9 3.5 - 5.3 [facility] MMOL/L Chloride 104 98 - 110 [facility] MMOL/L Urea Nitrogen 15 7 - 25 [facility] MG/DL Creatinine 1.1 0.5 - 1.4 [facility] MG/DL BUN/Creatinine 14 6 - 25 [facility] Ratio Calcium 9.5 8.5 - 10.4 [facility] MG/DL Protein Total 7.4 6.0 - 8.3 [facility] G/DL Albumin 4.4 3.5 - 4.9 [facility] G/DL Globulin 3.0 2.2 - 4.2 [facility] Calculated G/DL A/G Ratio 1.5 0.8 - 2.0 [facility] Bilirubin Total 0.7 0.2 - 1.5 [facility] MG/DL Alkaline 102 20 - 125 [facility] Phosphatase U/L AST 21 2 - 50 U/L [facility] ALT 24 2 - 60 U/L [facility] Carbon Dioxide 27 21 - 33 [facility] MMOL/L Specimen (Source) Anatomical Location Collection Method / Collectio n Time Received Time / Laterality Volume 08/13/2003 Dillan Fajardo MD LABORATORY Performing Organization Address City/State/ZIP Code Phon e Number [place] (ABNORMAL) A.M.A. LIPID PANEL (08/14/2003 5:28 AM CDT) [facility] gist Method Time Signature Comments DNR [facility] Triglycerides 245 (H) <150 MG/DL [facility] Cholesterol 142 <200 MG/DL [facility] Cholesterol 2 PERCENTILE [facility] Percentile HDL Cholesterol 38 (L) >39 MG/DL [facility] LDL Cholesterol 55 <130 MG/DL [facility] Calculated Cholesterol/HDL 3.7 <5.0 [facility] Ratio Specimen (Source) Anatomical Location Collection Method / Collectio n Time Received Time / Laterality Volume 08/13/2003 Dillan Fajardo MD LABORATORY Performing Organization Address City/[facility]/ZIP Code Phon e Number [place] X-RAY KNEE 3 VIEW (08/13/2003) Anatomical Region Laterality Modality Other Narrative 08/13/2003 Right Knee: No evidence of fx or dislocation Dillan Fajardo MD GENERAL IMAGING documented in this encounter Visit Diagnoses Diagnosis MIXED HYPERLIPIDEMIA - Primary Mixed hyperlipidemia Encounter for long-term (current) use of other medications BENIGN HYPERTENSION Essential hypertension, benign Sprain and strain of unspecified site of knee and leg documented in this encounter Care Teams Sulfate Drier Machine Operator Relationship Specialty Start Date End Date Nasir Velazquez MD PCP - General 02/18/99 10/06/13 [id number] [place] [address] documented as of this encounter
--- OUTSIDE RECORDS SUMMARY | 2021-11-04 10:41 | XMS_ITS | Encounter Summary ---
:1945 Author Organization [place] Address [facility] [place] [address] Care Team Providers Name Role Phone Nasir Velazquez MD Primary Care Provider [phone] Reason for Visit Reason Comments Musculoskeletal Problem Left thumb soreness Musculoskeletal Problem Left shoulder spasms Encounter Details Date Type Department Care Team Description 05/27/2002 Office Visit [facility] Tony Pastor [facility] Shantel Farley MD (Primary Dx) [address] [address] Social History Tobacco Use Types Packs/Day Years Used Date Former Smoker Quit: 02/05/18 85 Alcohol Use Standard Drinks/Week Comments Yes 1.7 (1 standard drink = 0.6 oz pure alco hol) Sex Assigned at Date Recorded Male 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 left thumb When: in retrospect;last week, carrying a edged weighted o bject with edge against palmar aspect of the left first M-P joint, Description of injury: last week , as above, but the area of tenderness is where the edge would havepressed. Examination findings: t general sales manager finger, left index thumb, tender at base, intermittent triggering Xray findings: n/a Working Diagnosis: trigger left thumb, probably some temporary injury to sheath, or tendon Treatment/ Rehab plan: time, advil Recheck exam planned: should heal on its own, but if not better in a 4-6 week per iod, call me, refer to hand md also discussed some issues of care of his neck. documented in this encounter Plan of Treatment Not on filedocumented as of this encounter Visit Diagnoses Diagnosis Trigger finger (acquired) - Primary documented in this encounter Care Teams Dental Technician Instructor Relationship Specialty Start Date End Date Nasir Velazquez MD PCP - General 02/18/99 10/06/13 [address] [place] [address] documented as of this encounter
--- OUTSIDE RECORDS SUMMARY | 2021-11-04 10:41 | XMS_ITS | Encounter Summary ---
:1945 Author Organization [place] Address [address] [facility] [place] [address] Care Team Providers Name Role Phone Nasir Velazquez MD Primary Care Provider [phone] Reason for Visit Reason Comments Cough Encounter Details Date Type Department Care Team Description 03/25/2002 Office Visit [facility] Diogo Velazquez COUGH (P rimary Dx); Physicians MD Bob PAIN IN LIMB; [address] [address] [place] SCREENING MAL NEOP-RECTUM; [address] FLATUL/ERUCTAT/GAS PAIN; [place], [place] [address] [place] [address] [address] [phone] (Wo rk) Social History Tobacco Use Types Packs/Day Years Used Date Former Smoker Quit: 02/05/18 85 Alcohol Use Standard Drinks/Week Comments Yes 1.7 (1 standard drink = 0.6 oz pure alco hol) Sex Assigned at Date Recorded Male 01/15/2018 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 4-5 days into it he got very sore throat. His cough produ wilbert white material. OBJECTIVE: BP 134/80 Wt 190 lbs (86.183 kg) External ears and canals clear b ilaterally. TM's normal bilaterally. Nose normal without lesions ordischarge. Oropharynx normal. Nec k supple without palpable adenopathy. Chest wall normal to inspection and palpation. Good excursion b ilaterally. Lungs clear to auscultation. Good air movement bilaterally without rales, wheezes, or rho nchi. Cardiac exam shows NSR without murmur or gallop. Assessment: Cough/irritation/cough cycle sta tus post viral upper respiratory infection PLAN: PREDNISONE 20 MG OR TABS, One tablet twice per day for 3 days, then once each morning for 2 additional days, D: 8, R: 0 ADVAIR DISKUS 100-50 [facility], one inhalation twice per day, D: 1, R: 0 Recheck immediately if worsening, or if not improving in a few days, otherwise PRN. Wishes to review lipid test. discussed rise & related weight problem . He says it is his 's fault (in all seriousness) because she cooks so rich & tells him he is to o thin. He will Work on diet and aerobic exercise program & recheck these blood tests in six months. Rt knee pain when kneeling, for three months. No history of trauma or unusual antecedent activity. It is a straight line on the lateral aspect of the patella, extending for ~ 10 cm. The intensity is 9/10. Knee is normal to inspection and palpation without evidence of erythema, warmth, or discolorat ion. ROM is full. No ligamentous instability. Patellar apprehension negative. Xray is negative. Ass essment: The etiology of this problem is unclear. Avoid postions that cause pain. Recheck immediate ly if worsening, otherwise PRN. He is not interested in an Orthopedics consult at this time. Also co mplains of stomach problems x3M consisting of gurgling. No pain, diarrhea or emesis. He is known to have GERD & is on Aciphex. The abdomen is soft without tenderness, guarding, mass or organomegaly. B owel sounds are normal. NoCVA tenderness or inguinal adenopathy noted. Assessment: diet related. T he patient is reassured that these symptoms do not appear to represent aserious or threatening condi tion. Observe and recheck prn if worsening, or not resolving. He has been successful on claritin, b ut no longer covered by his health plan. Told him he will have to purchase it over the counter. Las tly, he is due again for colorectal screening. HEMOCCULT INFORMATION & get flexible sigmoidoscopy if all negative, otherwise colonoscopy. documented in this encounter Nursing Notes 03/25/2002 10:45 AM CST >> MEDCRAFT, DOMINGA 03/25/2002 10:53 am pt c/o cough x3w, lipid test, Rt knee pain when kneeling, stomach problems x3M Questioned patient about current smoking habits. Pt. quit smoking some time ago. documented in this encounter Plan of Treatment Scheduled Orders Name Type Priority Associated Diagnoses Order S chedule X-RAY KNEE 3 VIEW Imaging Routine Pain In Limb Ordered: 0 03/25/2002 documented as of this encounter Visit Diagnoses Diagnosis Cough - Primary Pain in limb Screening for malignant neoplasm of the rectum Flatulence, eructation, and gas pain Allergic rhinitis, cause unspecified documented in this encounter Care Teams Wireless Construction Manager Relationship Specialty Start Date End Date Nasir Velazquez MD PCP - General 02/18/99 10/06/13 [facility] [address] [place] [address] documented as of this encounter
--- OUTSIDE RECORDS SUMMARY | 2021-11-04 10:41 | XMS_ITS | Encounter Summary ---
:1945 Author Organization [place] Address 2450 [facility] [place] [address] Care Team Providers Name Role Phone Nasir Nicole MD Primary Care Provider [phone] Reason for Referral - Closed Specialty Diagnoses / Procedures Referred By Contact Refer red To Contact Orthopedics Diagnoses Pain in limb Fabricio Nicole MD Simonet, William T, [place] [id number] [facility] [place], [place] [address] [place] [address] [place] [address] Phone: Fax: Referral ID Status Reason Start Date Expiration Date Visits Requ ested Visits Authorized [id number] Closed 03/31/2002 02/04/2011 1 1 EMIC DIRECTOR Reason for Visit Reason Comments Referral Encounter Details Date Type Department Care Team Description 03/31/2002 Telephone Fabricio Mujica MD Referral Physicians [id number] [facility] [address] [place] [address] [address] [place] [address] [phone] Social History Tobacco Use Types Packs/Day Years Used Date Former Smoker Quit: 01/01/19 85 Alcohol Use Standard Drinks/Week Comments Yes 1.7 (1 standard drink = 0.6 oz pure alco hol) Sex Assigned at Date Recorded Male 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 Rushing. >> FABRICIO NICOLE Mon Mar 31, 2002 12:45 PM OK to set him up with Dr. Rushing >> MAURICE BOSWELL Mon Mar 31, 2002 12:15 PM >> CALL RECEIVED. Contact: [phone] Pt calling clinic support mal in regards to the following: He was in to see you last week for leg problem. Pt would now like referral for this. documented in this encounter Plan of Treatment Not on filedocumented as of this encounter Procedures Procedure Name Priority Date/Time Associated Diagnosis Comme [facility] ORTHOPEDICS ADULT REFERRAL Routine 04/01/2002 Pain In Limb documented in this encounter Results CONSULT TO ORTHOPEDICS (04/01/2002) Narrative This result has an attachment that is no t available. Fabricio Nicole MD REFERRAL documented in this encounter Visit Diagnoses Diagnosis Pain in limb - Primary documented in this encounter Care Teams Central Service Supply Distributor Relationship Specialty Start Date End Date Nasir Nicole MD PCP - General 02/18/99 10/06/13 [facility] [address] [place] [address] documented as of this encounter
--- OUTSIDE RECORDS SUMMARY | 2021-11-04 10:41 | XMS_ITS | Encounter Summary ---
:1945 Author Organization [place] Address 2450 [facility] [place] [address] Care Team Providers Name Role Phone Nasir Nicole MD Primary Care Provider [phone] Reason for Visit Reason Comments Refill Request doxazosin mesyl 4 mg Encounter Details Date Type Department Care Team Description 01/06/2003 Refill [facility] Fabricio Nicole, Re fill Request Physicians (doxazosin mesyl 4 mg) [address] [address] [facility] [address] [place] [address] [place], [place] [phone] (Wo rk) [address] [phone] Social History Tobacco Use Types Packs/Day Years Used Date Former Smoker Quit: 02/05/18 85 Alcohol Use Standard Drinks/Week Comments Yes 1.7 (1 standard drink = 0.6 oz pure alco hol) Sex Assigned at Date Recorded 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 >> FABRICIO NICOLE Jenn Jan 08, 2003 11:33 AM This is a duplicate. Doxazosin is generic Cardura, and prescription is already good for a year in [facility].Did not have to be reordered. >> JIM Zuñiga Jan 06, 2003 8:45 AM >> CALL RECEIVED. Contact: ez rx in your bin for ok. documented in this encounter Plan of Treatment Not on filedocumented as of this encounter Visit Diagnoses Diagnosis Essential hypertension, benign - Primary documented in this encounter Care Teams Paper Plate Machine Tender Relationship Specialty Start Date End Date Nasir Nicole MD PCP - General 02/18/99 10/06/[address] [address] documented as of this encounter
--- OUTSIDE RECORDS SUMMARY | 2021-11-04 10:41 | XMS_ITS | Encounter Summary ---
:1945 Author Organization [place] Address 2450 [facility] [place] [address] Care Team Providers Name Role Phone Nasir Velazquez MD Primary Care Provider [phone] Encounter Details Date Type Department Care Team Description 03/07/[address] 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 documented as of this encounter Last Filed Vital Signs Vital Sign Reading Time Taken Comments Blood Pressure 122/70 03/07/2003 10:00 AM PEDIATRIC NEPHROLOGIST Pulse - - Temperature - - Respiratory Rate - - Oxygen Saturation - - Inhaled Oxygen Concentration - - Weight - - Height - - Body Mass Index - - documented in this encounter Plan of Treatment Not on filedocumented as of this encounter Visit Diagnoses Diagnosis Essential hypertension, benign - Primary documented in this encounter Care Teams Rehabilitation Services Aide Relationship Specialty Start Date End Date Nasir Velazquez MD PCP - General 02/18/99 10/06/13 [facility] [address] [place] [address] documented as of this encounter
--- OUTSIDE RECORDS SUMMARY | 2021-11-04 10:41 | XMS_ITS | Encounter Summary ---
:1945 Author Organization [place] Address 2450 [facility] 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 Contact: Pt stated that he had a mild sore throat and just unable to speak, instructed pt to take a over the counter pain releiver, garlgle with salt and warm water, keep humidity high, fluids and rest and try to rest voice-no singing or yelling, also to come in if it is not better in 24 hrs. >> HENRIETTA Barajas Mar 06, 2002 4:31 PM Staff Message copied by HENRIETTA JOSEPH on 03/06/2002 at 4:31 PM ------ Message from: MADIDSON GARCIA Created: 03/06/2002 at 3:56 PM Regarding: laryngitis, sore throat Contact: Terry called and barely has a voice, and his throat is sore. He is wondering if there is anything he can do for it, (like taking something wvlk-yxo-zsstiic, or just doing something for it) or if he should make an appt. to come in tonight. His work # is listed above and he will be there until 11:00 tonight. If he does not need to come in, he said you can leave a message at his home # which is [phone]. documented in this encounter Plan of Treatment Not on filedocumented as of this encounter Visit Diagnoses Not on filedocumented in this encounter Care Teams Business Services Intern Relationship Specialty Start Date End Date Nasir Velazquez MD PCP - General 02/18/99 10/06/13 [facility] [address] [place] [address] documented as of this encounter
--- OUTSIDE RECORDS SUMMARY | 2021-11-04 10:41 | XMS_ITS | Encounter Summary ---
:1945 Author Organization [place] Address [address] [facility] [place] [address] Care Team Providers Name Role Phone Nasir Velazquez MD Primary Care Provider [phone] Reason for Referral - Closed Specialty Diagnoses / Procedures Referred By Contact Refer red To Contact Orthopedics Diagnoses Trigger finger (acquired) Diogo Velazquez MD Simonet, William T, [place] [id number] [place] [address] ORTHOPEDICS [place], [place] [address] [address] [address] [place] [address] Phone: Fax: Referral ID Status Reason Start Date Expiration Date Visits Requ ested Visits Authorized [id number] Closed 08/11/2002 02/04/2011 1 1 Reason for Visit Reason Comments RECHECK Encounter Details Date Type Department Care Team Description 08/11/2002 Office Visit Diogo Mujica TRIGGER FINGER Physicians MD Bob (Primary Dx) [address] [place] [address] [phone] (Wo rk) Social History Tobacco Use Types Packs/Day Years Used Date Former Smoker Quit: 02/05/18 85 Alcohol Use Standard Drinks/Week Comments Yes 1.7 (1 standard drink = 0.6 oz pure alco hol) Sex Assigned at Date Recorded 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 Exam shows no improvement with the Hurley II inhibitors and he ca nnot extend distal thumb. When he tries, his flexor tendon area hurts. PLAN: Dr. Rushing referral. documented in this encounter Nursing Notes 08/11/2002 9:45 AM CDT >> ONIEL BARRIOS 08/11/2002 10:06 am Patient is here to recheck his left thumb. Questioned patient about current smoking habits. Pt. quit smoking some time ago. documented in this encounter Plan of Treatment Not on filedocumented as of this encounter Visit Diagnoses Diagnosis Trigger finger (acquired) - Primary documented in this encounter Care Teams Java Web Architect Relationship Specialty Start Date End Date Nasir Velazquez MD PCP - General 02/18/99 10/06/13 [facility] [address] [place] [address] documented as of this encounter
--- OUTSIDE RECORDS SUMMARY | 2021-11-04 10:41 | XMS_ITS | Encounter Summary ---
:1945 Author Organization [place] Address 24[address] [facility] 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 CL AFF A.M.A. LIPID Routine 02/01/2005 11:00 Mixed Hyperlipide jolynn Results for this PANEL AM SOFTWARE APPLICATIONS ENGINEER procedure are i n the results section. documented in this encounter Results A.M.A. COMPREHENSIVE MET.PANEL (02/01/2005 11:00 AM SOFTWARE APPLICATIONS ENGINEER) P athologist Signature Sodium 143 133 - 144 [facility] mmol/L [facility] Potassium 4.1 3.4 - 5.3 [facility] mmol/L [facility] Chloride 103 94 - 109 [facility] mmol/L [facility] Carbon Dioxide 30 20 - 32 [facility] mmol/L [facility] Anion Gap 11 6 - 17 [facility] mmol/L [facility] Glucose 103 60 - 110 [facility] mg/dL CLINIC LAB Urea Nitrogen 16 7 - 30 [facility] mg/dL [facility] Creatinine 1.00 0.80 - [facility] 1.50 mg/dL [facility] GFR Estimate >80 >60 [facility] mL/min/1.7 [facility] m2 GFR Estimate If >80 >60 [facility] Black mL/min/1.7 [facility] m2 Calcium 9.2 8.5 - 10.4 [facility] mg/dL [facility] Bilirubin Total 0.4 0.2 - 1.3 [facility] mg/dL [facility] Albumin 4.1 3.2 - 4.5 [facility] g/dL [facility] Protein Total 7.5 6.0 - 8.2 [facility] g/dL [facility] Alkaline 123 40 - 150 [facility] Phosphatase U/L [facility] ALT 65 0 - 70 U/L [facility] AST 38 0 - 55 U/L [facility] Specimen Anatomical Collection Method Collection Time Receive d Time (Source) Location / / Volume Laterality 02/01/2005 11:00 02/01/2005 AM SOFTWARE APPLICATIONS ENGINEER 11:01 AM SOFTWARE APPLICATIONS ENGINEER Diogo Velazquez MD LABORATORY Performing Organization Address City/State/ZIP Code Phon e Number [place] [id number] [place] [address] [facility] A.M.A. LIPID PANEL (02/01/2005 11:00 AM SOFTWARE APPLICATIONS ENGINEER) P athologist Signature Cholesterol 165 0 - 200 [facility] mg/dL CLINIC LAB Comment: LDL Cholesterol is the primary guide to therapy: LDL-cholesterol goal in high risk patients is <100 mg/dL and in very high risk patients is <70 mg/dL. The NCEP recommends further evaluation of: patients with cholesterol <200 mg/dL if additional risk factors are present, cholesterol >240 mg/dL, triglycerides >150 mg/dL, or HDL <40 mg/dL. Triglycerides 117 0 - 150 mg/dL [facility] HDL Cholesterol 51 40 - 110 mg/dL [facility] LDL Cholesterol Calculated 91 0 - 129 mg/dL [facility] Comment: LDL Cholesterol is the primary guide to therapy: LDL-cholesterol goal in high risk patients is <100 mg/dL and in very high risk patients is <70 mg/dL. VLDL-Cholesterol 23 0 - 30 mg/dL [facility] Cholesterol/HDL Ratio 3.2 0.0 - 5.0 [facility] Specimen Anatomical Collection Method Collection Time Receive d Time (Source) Location / / Volume Laterality 02/01/2005 11:00 02/01/2005 AM SOFTWARE APPLICATIONS ENGINEER 11:01 AM SOFTWARE APPLICATIONS ENGINEER Diogo Velazquez MD LABORATORY Performing Organization Address City/State/ZIP Code Phon e Number [facility] [address] [place] [address] [facility] documented in this encounter Visit Diagnoses Diagnosis Mixed hyperlipidemia Essential hypertension, benign documented in this encounter Care Teams Lighter Captain Relationship Specialty Start Date End Date Nasir Velazquez MD PCP - General 02/18/99 10/06/13 [facility] [address] [place] [address] documented as of this encounter
--- OUTSIDE RECORDS SUMMARY | 2021-11-04 10:41 | XMS_ITS | Encounter Summary ---
:1945 Author Organization [place] Address [facility] [place] [address] Care Team Providers Name Role Phone Nasir Velazquez MD Primary Care Provider [phone] Reason for Visit Reason Comments RECHECK Encounter Details Date Type Department Care Team Description 03/20/2003 Office Visit [facility] Diogo Velazquez [facility] H YPERTENSION Physicians MD Bob (Primary Dx) [address] [id number] [place] [phone] (Wo rk) Social History Tobacco Use Types Packs/Day Years Used Date Former Smoker Quit: 02/05/18 85 Alcohol Use Standard Drinks/Week Comments Yes 1.7 (1 standard drink = 0.6 oz pure alco hol) Sex Assigned at Date Recorded 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 documented as of this encounter Last Filed Vital Signs Vital Sign Reading Time Taken Comments Blood Pressure 114/70 03/20/2003 10:15 AM SUPERVISOR PLATE FORMING Pulse - - Temperature 36.2 ??C (97.1 ??F) 03/20/2003 10:15 AM SUPERVISOR PLATE FORMING Respiratory Rate - - Oxygen Saturation - - Inhaled Oxygen Concentration - - Weight 88 kg (194 lb) 03/20/2003 10:15 AM SUPERVISOR PLATE FORMING Height - - Body Mass Index 27.06 12/30/2002 9:00 AM SUPERVISOR PLATE FORMING documented in this encounter Progress Notes 03/20/2003 10:15 AM SUPERVISOR PLATE FORMING Patientis here for a recheck on his BP medication. Patient states that since he has started using t he medication he has become very tired all the time. His blood pressure is the lowest it has ever b een today. 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 We compromised, and put him back on just the diuretic, discontinue LIZZ inhibitor, and Recheck in sixweeks. If not going up too high can continue like that. In exchange, he will Work on diet and aerobic exercise program and lose weight. documented in this encounter Nursing Notes 03/20/2003 10:15 AM CST >> BARRIOS ONIEL 03/20/2003 10:25 am Patientis here for a recheck on his BP medication. Patient states that since he has started using the medication he has become very tired all the time. Questioned patient about current smoking habits. Pt. quit smoking some time ago. documented in this encounter Plan of Treatment Not on filedocumented as of this encounter Visit Diagnoses Diagnosis Essential hypertension, benign - Primary documented in this encounter Care Teams Global Logistics Analyst Relationship Specialty Start Date End Date Nasir Velazquez MD PCP - General 02/18/99 10/06/13 [facility] [address] [place] [address] documented as of this encounter
--- OUTSIDE RECORDS SUMMARY | 2021-11-04 10:41 | XMS_ITS | Encounter Summary ---
:1945 Author Organization [place] Address [address] [facility] [place] [address] Care Team Providers Name Role Phone Nasir Velazquez MD Primary Care Provider [phone] Encounter Details Date Type Department Care Team Description 02/15/2005 Medical Correspondence [facility] [place] [address] [facility] [id number] [place] [address] [address] [address] [place], [place] [phone] (Wo rk) Social History Tobacco Use Types Packs/Day Years Used Date Former Smoker Quit: 02/05/18 85 Alcohol Use Standard Drinks/Week Comments Yes 1.7 (1 standard drink = 0.6 oz pure alco hol) socially Sex Assigned at Date Recorded Male 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
--- OUTSIDE RECORDS SUMMARY | 2021-11-04 10:41 | XMS_ITS | Encounter Summary ---
:1945 Author Organization [place] Address [facility] [place] [address] Care Team Providers Name Role Phone Nasir Nicole MD Primary Care Provider [phone] Reason for Visit Reason Comments Referral Colonoscopy Encounter Details Date Type Department Care Team Description 10/27/2002 Telephone [facility] Dillan Fajardo Re ferral (Colonoscopy) Physicians [address] [facility] [address] XXX RETIRED XXX [address] [place], [place] [address] [place], [place] [phone] [address] (Wo rk) Social History Tobacco Use Types Packs/Day Years Used Date Former Smoker Quit: 02/05/18 85 Alcohol Use Standard Drinks/Week Comments Yes 1.7 (1 standard drink = 0.6 oz pure alco hol) Sex Assigned at Date Recorded 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 Not sure if he wants to wait that long. Might make appt with . Will call me back so I know who & where to do the referral. >> ONIEL BARRIOS [facility] Oct 29, 2002 2:[address] Rodriguez # [phone] >> ONIEL BARRIOS [facility] Oct 29, 2002 2:18 PM Left patient a message to call clinic. >> FABRICIO NICOLE SunOct 28, 2002 11:47 AM Have him see Dr. Levi or partners. Dr. Trivedi in that group is very good also if Dr. Levi is busy. >> DELILAH JESUS SunOct 28, 2002 11:45 AM Pt. called back and said that Dr. Parsons does not have any openings for a colonoscopy until February. Pt. is wondering if there is someone else he can get in with sooner. Gave pt. Jeromy's number to call and see who is in his plan. To Jeromy- pt. will be calling >> ONIEL BARRIOS SunOct 27, 2002 2:42 PM >> CALL RECEIVED. Contact: Gave patient Dr. Jaimes phone # to schedule a colonoscopy. Patient needs a referral for this. >> ONIEL BARRIOS SunOct 27, 2002 2:36 PM Staff Message copied by ONIEL BARRIOS on 10/27/2002 at 2:36 PM ------ Message from: ARIELLA BRIAN Created: 10/27/2002 at 1:20 PM He gave you a choice of a flex sig or colonscopy, he is going to choose the colonscopy. Call him at [phone] to help with scheduling. Ariella documented in this encounter Plan of Treatment Not on filedocumented as of this encounter Visit Diagnoses Not on filedocumented in this encounter Care Teams Recruiting Operations Consultant Relationship Specialty Start Date End Date Nasir Nicole MD PCP - General 02/18/99 10/06/13 [facility] [address] [place] [address] documented as of this encounter
--- OUTSIDE RECORDS SUMMARY | 2021-11-04 10:41 | XMS_ITS | Encounter Summary ---
:1945 Author Organization [place] Address [address] [facility] [place] [address] Care Team Providers Name Role Phone Nasir Velazquez MD Primary Care Provider [phone] Reason for Referral Other (Routine) - Closed Specialty Diagnoses / Procedures Referred By Contact Refer red To Contact Gastroenterology Diagnoses Screening for malignant neoplasm of the rectum Diogo Velazquez MD Nemer, Frederic [id number] [facility] MD Geoff [place], [place] [address] [place] [address] Phone: Fax: Referral ID Status Reason Start Date Expiration Date Visits V isits Requested Authorized [id number] Closed Service Not 11/04/2002 02/04/2011 1 1 Available at Clinic Encounter Details Date Type Department Care Team Description 11/04/2002 [facility] Only [facility] Diogo Velazquez SC REENING MAL Physicians MD NEOP-RECTUM (Primary [address] [address] [facility]) [address] [place] [address] [phone] Social History Tobacco Use Types Packs/Day Years Used Date Former Smoker Quit: 02/05/18 85 Alcohol Use Standard Drinks/Week Comments Yes 1.7 (1 standard drink = 0.6 oz pure alco hol) Sex Assigned at Date Recorded Male 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 Diogo Velazquez MD REFERRAL documented in this encounter Visit Diagnoses Diagnosis Screening for malignant neoplasm of the rectum - Primary documented in this encounter Care Teams Armoured Car Escort Relationship Specialty Start Date End Date Nasir Velazquez MD PCP - General 02/18/99 10/06/13 [facility] [place] [address] [place] [address] documented as of this encounter
--- OUTSIDE RECORDS SUMMARY | 2021-11-04 10:41 | XMS_ITS | Encounter Summary ---
:1945 Author Organization [place] Address [address] [facility] [place] [address] Care Team Providers Name Role Phone Nasir Velazquez MD Primary Care Provider [phone] Reason for Visit Reason Comments Medication Request lipitor Foot Problems f/u on foot pain Encounter Details Date Type Department Care Team Description 08/05/[address] 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 documented as of this encounter Last Filed Vital Signs Vital Sign Reading Time Taken Comments Blood Pressure 110/75 08/05/2004 10:15 AM CDT Pulse 56 08/05/2004 10:15 AM CDT Temperature 35.3 ??C (95.6 ??F) 08/05/2004 10:15 AM CDT Respiratory Rate - - Oxygen Saturation - - Inhaled Oxygen Concentration - - Weight 84.8 kg (187 lb) 08/05/2004 10:15 AM CDT Height 177.8 cm (5' 10) 08/05/2004 10:15 AM CDT Body Mass Index 26.83 08/05/2004 10:15 AM CDT documented in this encounter Progress Notes Diogo Velazquez - 08/05/2004 2:51 PM CDT SUBJECTIVE: Terry Montero, a 59 year old male scheduled an appointment to discuss the following issues & get refills on his meds: BENIGN HYPERTENSION- his blood pressure has been good, but needs medication refill and potassium check. MIXED HYPERLIPIDEMIA- takes HMGCoA medication & needs follow up lipid & liver profile LIPOMA SKIN- has small occasionally painful lump over the anterior chest area, just left of the sternum. RIGHT FOOT PAIN- ongoing discomfort over the tendon sheath on the dorsum of the right foot, plus mild pain in the bunion area. Has been seen before for this, diagnosed as tenosynovitis, and iven prescription for Celebrex. After the news stories about Hurley II drugs, he stopped after a few days. Wears Merril shoes which help some. He is getting some spider caricosities in that area, probably secondary to the same trauma that caused his tenosynovitis. Xray was negative in the past, except for the obvious bunion. Medical, social, surgical, and family histories reviewed. 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 S1 and S2 normal, no murmurs, clicks, gallops or rubs. No edema or JVD. Chest is clear; no wheezes or rales. Foot and ankle exam is normal, except for the varicosities mentioned, and some pain to palpation forthe distal anterior ankle/foot area on the right. Color and temperature of the feet is normal. Peripheral pulses are palpable. Good sensation appreciation. ASSESSMENT/PLAN: 401.1 BENIGN HYPERTENSION Note: in good control. Continue current medications for the time being. Recheck these potassium and renal function tests in six months. Plan: A.M.A. COMPREHENSIVE MET.PANEL, HYDROCHLOROTHIAZIDE 25 MG OR TABS 272.2 MIXED HYPERLIPIDEMIA Note: lipid & liver profile pending. I will contact the patient when lab results available. Continue current medications for the time being. Recheck these tests in six months. Plan: A.M.A. LIPID PANEL, A.M.A. COMPREHENSIVE MET.PANEL, LIPITOR 10 MG OR TABS 214.1 LIPOMA SKIN- trunk & legs Note: Chest exam shows a rubbery, smooth round subq lesion, almost for sure a lipoma. He has these elsewhere as well. The patient is reassured that these symptoms do not appear to represent a serious or threatening condition. Foot pain- tenosynovitis. Ice to area. Limit unnecessary walking. Hurley II inhibitors or NSAIDs per his choice (he doesn't want to take Ibuprofen because father had kedney problems after taking it. Recheck immediately if worsening, or if not improving in a few weeks, otherwise PRN. Plan: Observe & recheck as needed if enlarging. documented in this encounter Nursing Notes 08/05/2004 10:15 AM CDT >> ZACH DANIELSON 08/05/2004 11:07 am Terry Montero presents for lipids check, f/u on foot pain. Initial BP 110/75 Pulse 56 Temp (Src) 95.6 (Oral) Ht 5' 10 (1.78m) Wt 187 lbs (84.8kg) BodyMass Index is 26.83 kg/(m^2). . BP completed using cuff size: regular. Zach Danielson documented in this encounter Plan of Treatment Not on filedocumented as of this encounter Procedures Procedure Name Priority Date/Time Associated Diagnosis Comme nts HCL COMPREHENSIVE Routine 08/05/2004 11:51 Benign Hypert ension Results for this METABOLIC PANEL AM CDT Mixed Hyperlipidemia proc edure are in the results section. CL AFF A.M.A. LIPID Routine 08/05/2004 11:51 Mixed Hyperlipide jolynn Results for this PANEL AM CDT procedure are i n the results section. documented in this encounter Results A.M.A. COMPREHENSIVE MET.PANEL (08/05/2004 11:51 AM CDT) athologist Signature Sodium 144 133 - 144 [place] [facility] mmol/L [facility] Potassium 3.7 3.4 - 5.3 [place] [facility] mmol/L [facility] Chloride 102 94 - 109 [place] [facility] mmol/L [facility] Carbon Dioxide 29 20 - 32 [place] [facility] mmol/L [facility] Anion Gap 12 6 - 17 [place] [facility] mmol/L [facility] Glucose 102 60 - 110 [facility] mg/dL [facility] Urea Nitrogen 14 7 - 30 [place] [facility] mg/dL [facility] Creatinine 1.10 0.80 - [place] [facility] 1.50 mg/dL [facility] GFR Estimate 73 >60 [place] [facility] mL/min/1.7 [facility] m2 LAB GFR Estimate If >80 >60 [facility] Black mL/min/1.7 [facility] m2 LAB Calcium 9.7 8.5 - 10.4 [place] [facility] mg/dL [facility] Bilirubin Total 0.8 0.2 - 1.3 [place] [facility] mg/dL [facility] Albumin 4.3 3.2 - 4.5 [place] [facility] g/dL [facility] Protein Total 7.9 6.0 - 8.2 [place] [facility] g/dL [facility] Alkaline 114 40 - 150 [facility] Phosphatase U/L [facility] ALT 39 0 - 70 U/L [facility] AST 31 0 - 55 U/L [facility] Specimen Anatomical Collection Method Collection Time Receive d Time (Source) Location / / Volume Laterality 08/05/2004 11:51 08/05/2004 AM CDT 11:52 AM CDT Diogo Velazquez MD LABORATORY Performing Organization Address City/State/ZIP Code Phon e Number [facility] [address] [place] [address] [facility] (ABNORMAL) A.M.A. LIPID PANEL (08/05/2004 11:51 AM CDT) athologist Signature Cholesterol 145 0 - 200 [facility] mg/dL [facility] Comment: Cholesterol Reference Range: <200 ??The NCEP recommends further ? evaluation of: ? 1. ??Patients with cholesterol ? greater than 200 mg/dL ? if additional risk facto rs ? are present. ? 2. ??All patients with a ? cholesterol greater than ? 240 mg/dL. Triglycerides 224 (H) 0 - 150 mg/dL [facility] HDL Cholesterol 38 (L) >40 mg/dL [facility] LDL Cholesterol Calculated 63 0 - 129 mg/dL [facility] VLDL-Cholesterol 45 (H) 0 - 30 mg/dL [facility] Cholesterol/HDL Ratio 3.9 0.0 - 5.0 [facility] Specimen Anatomical Collection Method Collection Time Receive d Time (Source) Location / / Volume Laterality 08/05/2004 11:51 08/05/2004 AM CDT 11:52 AM CDT Diogo Velazquez MD LABORATORY Performing Organization Address City/State/ZIP Code Phon e Number [facility] [address] [place] [address] [facility] documented in this encounter Visit Diagnoses Diagnosis Essential hypertension, benign Mixed hyperlipidemia LIPOMA SKIN- trunk & legs Lipoma of other skin and subcutaneous ti ssue JOINT PAIN-Foot & anterior ankle Pain in joint, ankle and foot documented in this encounter Care Teams Buyer Internship Relationship Specialty Start Date End Date Nasir Velazquez MD PCP - General 02/18/99 10/06/13 [facility] [address] [place] [address] documented as of this encounter
--- OUTSIDE RECORDS SUMMARY | 2021-11-04 10:42 | XMS_ITS | Encounter Summary ---
:1945 Author Organization [place] Address [address] [facility] [place] [address] Care Team Providers Name Role Phone Nasir Velazquez MD Primary Care Provider [phone] Reason for Visit Reason Comments Sinus Problem Ear Problem Encounter Details Date Type Department Care Team Description 02/10/2000 Office Visit [place] Diogo Arnold ALLERGIC RHINITIS NOS; Physicians MD Bob HYPERTROPHY (BENIGN) PROSTATE [address] [facility] [id number] [facility] [address] [place] [phone] (Wo rk) Social History Tobacco Use Types Packs/Day Years Used Date Former Smoker Quit: 02/05/18 85 Alcohol Use Standard Drinks/Week Comments Yes 1.7 (1 standard drink = 0.6 oz pure alco hol) Sex Assigned at Date Recorded Male 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 c/o sinus pressure and congestion. He states that his ears are also plugged up. He also has ques tions regarding his prostate an if he should be on some medication. He had success on the Cardura s amples given before. His stream is weak, & he wonders if it contributes to his discomfort in the rig ht groin area. External ears and canals clear bilaterally. TM's normal bilaterally. Nose normal wit hout lesions ordischarge. Oropharynx normal. Neck supple without palpable adenopathy. Chest wall nor mal to inspection and palpation. Good excursion bilaterally. Lungs clear to auscultation. Good air mo vement bilaterally without rales, wheezes, or rhonchi. Cardiac exam shows NSR without murmur or gall op. Assessment: viral upper respiratory infection vs allergy. NASONEX SUSP 50 MCG/ACT NA, 2 sprays e ach nostril Once daily for allergies, D: 1, R: 11 given. No antibiotics. Trial of CARDURA TABS 1 MG OR, 1 TABLET AT BEDTIME-Titrate up to 4mg per night, D: qs, R: 0 vs FLOMAX CPCR 0.4 MG OR, 1 CAPSULE DAILY, D: 30, R: 11 to see which helps the prostate without causingas much nasal congestion. He may have refills of whichever medication works best for him. documented in this encounter Nursing Notes 02/10/2000 10:15 AM CST >> DELILAH JESUS 02/10/2000 10:27 am Pt. c/o sinus pressure and congestion. He states that his ears are also plugged up. He also has questions reguarding his prostate an if he should be on some medication. Questioned patient about current smoking habits. Pt. quit smoking some time ago. documented in this encounter Plan of Treatment Not on filedocumented as of this encounter Visit Diagnoses Diagnosis Allergic rhinitis, cause unspecified Hypertrophy (benign) of prostate documented in this encounter Care Teams Technical Buyer Relationship Specialty Start Date End Date Nasir Velazquez MD PCP - General 02/18/99 10/06/13 [facility] [address] [place] [address] documented as of this encounter
--- OUTSIDE RECORDS SUMMARY | 2021-11-04 10:42 | XMS_ITS | Encounter Summary ---
:1945 Author Organization [place] Address [address] [facility] [place] [address] Care Team Providers Name Role Phone Nasir Nicole MD Primary Care Provider [phone] Reason for Visit Reason Comments Pt. Information/instruction Derm Problem Encounter Details Date Type Department Care Team Description 09/28/2000 Telephone [facility] Fabricio Nicole, Pt . 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 Pt.stated Lac Hydrin 12% is not OTC. Modules accepted: Progress Notes >> TEZ BLEVINS SunSep 28, 2000 12:10 PM Left message on machine with instruction per pt request. >> SARAH NICOLE SunSep 28, 2000 10:01 AM >> CALL RECEIVED. Contact: I think it was on the after visit negro richard he was given. Lac Hydrin 12%. Apply bid. Usually available without a prescription. OK to tyler chang it in if that is not true. >> FABRICIO NICOLE SunSep 28, 2000 9:59 AM Staff Message copied by FABRICIO DYSON on 09/28/2000 at 9:59 AM ------ Message from: ORACIO NORIEGA Regarding: PATIENT TYLER CARBAJAL WAS IN TO SEE YOU REGARDING A PAINFUL CALLOUS ON HIS FOOT. HE SAYS YOU DISCUSSED A SOLUTIO N TO SOFTEN IT. HOWEVER HE LEFT WITH NO RX OR INSTRUCTION TO WHAT TO DO. PLEASE CALL HIM ON AY AT [phone]. THIS IS THE HOME # HE CANNOT BE REACHED AT WORK. PLEASE LEAVE DIRECTION FOR HIM ON THE VOICE MAIL. (RX, O.T.C. ETC.) documented in this encounter Plan of Treatment Not on filedocumented as of this encounter Visit Diagnoses Not on filedocumented in this encounter Care Teams Worsted Winder Relationship Specialty Start Date End Date Nasir Nicole MD PCP - General 02/18/99 10/06/13 [facility] [address] [place] [address] documented as of this encounter
--- OUTSIDE RECORDS SUMMARY | 2021-11-04 10:42 | XMS_ITS | Encounter Summary ---
:1945 Author Organization [place] Address [address] [facility] [place] [address] Care Team Providers Name Role Phone Nasir Nicole MD Primary Care Provider [phone] Reason for Visit Reason Comments Refill Request [facility] pharmacy [phone] Encounter Details Date Type Department Care Team Description 05/08/2000 Refill [facility] Fabricio Nicole, Re fill Request Physicians ([facility] pharmacy [address] [address] [facility] [phone]) [address] [place] [address] [place], [place] [phone] (Wo rk) [address] [phone] Social History Tobacco Use Types Packs/Day Years Used Date Former Smoker Quit: 02/05/18 85 Alcohol Use Standard Drinks/Week Comments Yes 1.7 (1 standard drink = 0.6 oz pure alco hol) Sex Assigned at Date Recorded Male 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 Fabricio Nicole Started and completed on SunMay 08, 2000 9:56 AM CALL RECEIVED. Contact: Jeannette [phone] - Starla Parkinsongael Started and completed on SunMay 08, 2000 8:42 AM documented in this encounter Plan of Treatment Not on filedocumented as of this encounter Visit Diagnoses Not on filedocumented in this encounter Care Teams Field Superintendent Relationship Specialty Start Date End Date Nasir Nicole MD PCP - General 02/18/99 10/06/13 [place] [address] [place] [address] documented as of this encounter
--- OUTSIDE RECORDS SUMMARY | 2021-11-04 10:42 | XMS_ITS | Encounter Summary ---
:1945 Author Organization [place] Address [address] [facility] [place] [address] Care Team Providers Name Role Phone Nasir Velazquez MD Primary Care Provider [phone] Reason for Visit Reason Comments Eye Problem Encounter Details Date Type Department Care Team Description 09/16/1999 Office Visit [facility] Diogo Velazquez CORNEAL FOREIGN BODY Physicians MD Bob (Primary Dx) [address] [place] [address] [phone] (Wo rk) Social History Tobacco Use Types Packs/Day Years Used Date Former Smoker Quit: 02/05/18 85 Alcohol Use Standard Drinks/Week Comments Yes 1.7 (1 standard drink = 0.6 oz pure alco hol) Sex Assigned at Date Recorded Male 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 documented as of this encounter Last Filed Vital Signs Vital Sign Reading Time Taken Comments Blood Pressure 126/76 09/16/1999 10:45 AM CDT Pulse 64 09/16/1999 10:45 AM CDT Temperature 36.7 ??C (98.1 ??F) 09/16/1999 10:45 AM CDT Respiratory Rate 12 09/16/1999 10:45 AM CDT Oxygen Saturation - - Inhaled Oxygen Concentration - - Weight 72.1 kg (159 lb) 09/16/1999 10:45 AM CDT Height 177.8 cm (5' 10) 09/16/1999 10:45 AM CDT Body Mass Index 22.81 09/16/1999 10:45 AM CDT documented in this encounter Progress Notes 09/16/1999 10:45 AM CDT pt c/o Lt eye pain, got something in it last pm, flushed out the eye last pm, some blurry vision, we ars contacts Rt 20/20 Lt 20/100 B-20/20 with glasses he denies having his contacts in at the time of the FB accident, or since. OBJECTIVE: Mildly injected sclera. His contact is in the left eye withou t him knowing it. After removal, a ring appears outside the margin of the cornea when fluriscien dye is instilled & observed with UV light. No corneal abrasion is seen. Eye felt better afterwords, bu t VOLTAREN SOLN 0.1 % OP, one drop every 8 hours as needed, D: 5ml, R: 0 in case of pain later on. I advised no contact wearing for 5 days to let eye heal. Recheck prn. documented in this encounter Nursing Notes 09/16/1999 10:45 AM CDT >> MEDCRAFT, DOMINGA 09/16/1999 10:53 am pt c/o Lt eye pain, got something in it last pm, flushed out the eye last pm, some blurry vision, wears contacts Rt 20/20 Lt 20/100 B-20/20 with glasses documented in this encounter Plan of Treatment Not on filedocumented as of this encounter Visit Diagnoses Diagnosis Foreign body in cornea - Primary documented in this encounter Care Teams Corporate Real Estate Specialist Relationship Specialty Start Date End Date Nasir Velazquez MD PCP - General 02/18/99 10/06/13 [facility] [address] [place] [address] documented as of this encounter
--- OUTSIDE RECORDS SUMMARY | 2021-11-04 10:42 | XMS_ITS | Encounter Summary ---
:1945 Author Organization [place] Address [address] [place] [address] Care Team Providers Name Role Phone Nasir Nicole MD Primary Care Provider [phone] Reason for Visit Reason Comments Refill Request Ria Chen Encounter Details Date Type Department Care Team Description 04/13/2001 Refill [facility] Fabricio Nicole, Carito fill Request Physicians (Ria Chen) [address] [id number] [facility] [address] [place], [place] [address] [place] [address] (Wo rk) [address] [phone] Social History Tobacco Use Types Packs/Day Years Used Date Former Smoker Quit: 02/05/18 85 Alcohol Use Standard Drinks/Week Comments Yes 1.7 (1 standard drink = 0.6 oz pure alco hol) Sex Assigned at Date Recorded Male 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 >> FABRICIO NICOLE Sat Apr 13, 2001 11:08 AM ok >> GUS JOHNSON Sat Apr 13, 2001 10:41 AM >> CALL RECEIVED. Contact: Mariela CRESPO documented in this encounter Plan of Treatment Not on filedocumented as of this encounter Visit Diagnoses Not on filedocumented in this encounter Care Teams Sap Business Objects Developer Relationship Specialty Start Date End Date Nasir Nicole MD PCP - General 02/18/99 10/06/13 [place] [id number] [place] [address] documented as of this encounter
--- OUTSIDE RECORDS SUMMARY | 2021-11-04 10:42 | XMS_ITS | Encounter Summary ---
:1945 Author Organization [place] Address [address] [facility] 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 Contact: Patient bit his tongue yesterday. He stopped his medication Flexeril and Motrin afraid that they wer e thining his blood. When he bit his tongue would not stop bleeding. Assured patient that those medi cations would not be causing him to have thin blood. documented in this encounter Plan of Treatment Not on filedocumented as of this encounter Visit Diagnoses Not on filedocumented in this encounter Care Teams Tower Loader Operator Relationship Specialty Start Date End Date Nasir Velazquez MD PCP - General 02/18/99 10/06/13 [id number] [place] [address] documented as of this encounter
--- OUTSIDE RECORDS SUMMARY | 2021-11-04 10:42 | XMS_ITS | Encounter Summary ---
:1945 Author Organization [place] Address [facility] [place] [address] Care Team Providers Name Role Phone Nasir Velazquez MD Primary Care Provider [phone] Reason for Visit Reason Comments Pt. Information/instruction Encounter Details Date Type Department Care Team Description 02/13/2000 Telephone [facility] Estelle Messer LP N Pt. 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 Dillan Fajardo Started and completed on SunFeb 14, 2000 8:30 AM CALL RECEIVED. Contact: FYI: Stated he was seen on 02/09 for sinus problem and was told that he does not have sinus infection. C/o a slight headache. No other sx. Wants to know if ok to take Excedrin or Advil. Informed ok. ToJDR for BAB. - Uon Gui Started and completed on SunFeb 13, 2000 5:09 PM Staff Message copied by ESTELLE MESSER on 02/13/2000 at 5:04 PM ------ Message from: ORACIO NORIEGA CALLED EARLIER FOR BAB OR NURSE. HAS A QUESTION. PHONE IS [phone]. THANKS! - Estelle Messer Started and completed on SunFeb 13, 2000 5:04 PM documented in this encounter Plan of Treatment Not on filedocumented as of this encounter Visit Diagnoses Not on filedocumented in this encounter Care Teams Tool Shaper Setup Operator Relationship Specialty Start Date End Date Nasir Velaqzuez MD PCP - General 02/18/99 10/06/[address] [address] documented as of this encounter
--- OUTSIDE RECORDS SUMMARY | 2021-11-04 10:42 | XMS_ITS | Encounter Summary ---
:1945 Author Organization [place] Address [address] [place] [address] Care Team Providers Name Role Phone Nasir Nicole MD Primary Care Provider [phone] Reason for Visit Reason Comments Refill Request Encounter Details Date Type Department Care Team Description 08/02/2001 Refill [facility] Fabricio Nicole MD Refill Request Physicians [id number] [facility] [address] [address] [address] [place] [address] [phone] Social History Tobacco Use Types Packs/Day Years Used Date Former Smoker Quit: 02/05/18 85 Alcohol Use Standard Drinks/Week Comments Yes 1.7 (1 standard drink = 0.6 oz pure alco hol) Sex Assigned at Date Recorded Male 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 >> FABRICIO NICOLE SunAug 05, 2001 11:00 AM ok >> CARLEY DORIS SunAug 05, 2001 9:26 AM >> CALL RECEIVED. Contact: Pt called and would like to get refill of aciphex. To BAB. documented in this encounter Plan of Treatment Not on filedocumented as of this encounter Visit Diagnoses Not on filedocumented in this encounter Care Teams Inspector Dials Relationship Specialty Start Date End Date Nasir Nicole MD PCP - General 02/18/99 10/06/13 [facility] [address] [place] [address] documented as of this encounter
--- OUTSIDE RECORDS SUMMARY | 2021-11-04 10:42 | XMS_ITS | Encounter Summary ---
:1945 Author Organization [place] Address [address] [facility] [place] [address] Care Team Providers Name Role Phone Nasir Velazquez MD Primary Care Provider [phone] Reason for Visit Reason Comments Results here to discuss IVP result, update from urology appt. Pain talks about R hip pain x 1mo . 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 Over past months n oted someurinary hesitancy, weak stream, double and incomplete voiding and nocturia times 6-7. Pt wa s seen by Urologist and had a IVP and cystogram which were both neg for pathology. He was started on a 10 daycourse of LEVAQUIN which end 5 days ago. He feels had some relief with medication but then p ain returned. Meds as of 11/18/1999: CLARITIN TABS 10 MG OR, 1 TAB PO QD (Once per day) as needed f or ALLERGY SYMPTOMS, D: 30, R: 11 Review of patient's allergies indicates: No Known Drug allergies OBJECTIVE: BP 140/90 Wt 168 lbs (76.20 kg) General appearance: healthy, alert, no distress, smilin g Hydration: well hydrated CVA tenderness to percussion: absent Abdomen: flat, normal bowel sounds. Tenderness: none Masses: none JOINT PAIN-PELVIS [719.45] Organomegaly: none : Scrotum is normal to inspection and palpation. Single vas easily palpated bilaterally with some tenderness on rt side. Trini trini normal. No hernia present. No inguinal adenopathy. MS: Some Pain with Internal rotation of Hip. Lumbosacral spine area reveals no local tenderness or mass. Straight leg raise is wnl. DTR's, motorstrength and sensation normal, including heel and toe gait. Peripheral pulses are palpable. The low er extremities are normal and reveal no sign of DVT. Calves and thighs are soft and non tender, coloris normal, no swelling or redness. Alma's sign is negative. Pedal pulses are normal. URINALYSIS COLOR lt. yellow APPEARANCE clear GLUCOSE (URINE) neg BILI (URINE) neg K ETONE (URINE) neg SP. GRAV 1.020 BLOOD (URINE) Value: traced-lysed pH 6.0 PROTEIN (URINE) neg UROBILINOGEN 0.2 NITRITE neg LEUKOCYTES neg WBC/HPF 0-2 RBC/HPF 0-1 EP/HP F occ BACTERIA few CASTS/LPF neg MISC. neg ASSESSMENT/PLAN: 600 HYPERPLASIA OF PROSTATE (primary encounter diagnosis) Note: Increasing nocturia and decreased frequency over pas t montths Plan: Start on CARDURA TABS 1 MG OR, as directed- buildup on sample pack to 4 mmg by the 5t h week. Reviewed current medications with the patient, who reports taking all medications as prescri bed, andwho denies any signs or symptoms suggestive of side effects. Will have pt RTC in 5 wks or if having increasing symptoms or problems with side effect of medication. 604.99 ORCHITIS/EPIDIDYMIT NEC Note: UA pos for minimal WBCs and a few bacteria Plan: Will start on course of LEVAQUIN TABS 500 MG OR, 1 TABLET DAILY, D: 21, R: 0, for 3 wks. Call or return to clinic prn if these symptoms worse n, fail to improve as anticipated, or if new symptoms develop. JOINT PAIN-PELVIS [719.45] complains of R hip pain x 1mo. Hurts even in sleep. Sore over greater trochanter. 1. Some pain medially with internal rotation. Remainder of range of motion is full without pain. I went to the [facility] o [facility] at IVP film. IVP shows good head of femur/acetabulum interface,but did no include the greater t rochanter where his pain was. 2. Will call and instruct to increase indoprofen use 3. Will take X-RA Y of HIP in 4 wks and get MRI or Orthopedics consult if still problem at that time. documented in this encounter Plan of Treatment Not on filedocumented as of this encounter Procedures Procedure Name Priority Date/Time Associated Diagnosis Comme nts CL AFF URINALYSIS, Routine 11/18/1999 12:14 PM Orchitis/Epidid ymit Results for this ROUTINE CDT Nec procedure are i n the results section. documented in this encounter Results URINALYSIS (11/18/1999 12:14 PM CDT) [facility] Method Time Signature Color Urine lt. yellow [facility] Appearance Urine clear [facility] Glucose Urine neg [facility] Bilirubin Urine neg [facility] Ketones Urine neg [facility] Specific [place] 1.020 [facility] Blood Urine traced-karen [facility] ed pH Arterial 6.0 [facility] Protein Urine neg [facility] Urobilinogen 0.2 [facility] Urine Nitrite Urine neg [facility] Leukocytes neg [facility] WBC Urine 0-2 [facility] RBC Urine 0-1 [facility] EP/HPF occ [facility] Bacteria Urine few [facility] Casts/LPF neg [facility] Miscellaneous neg [facility] Specimen (Source) Anatomical Collection Method Collection Time Re ceived Time Location / / Volume Laterality 11/18/1999 12:14 PM CDT Dioog Velazquez MD LABORATORY Performing Organization Address City/State/ZIP Code Phon e Number [facility] documented in this encounter Visit Diagnoses Diagnosis Hyperplasia of prostate - Primary Other orchitis, epididymitis, and epidid ymo-orchitis, without mention of abscess(604.99) Other orchitis, epididymitis, and epidid ymo-orchitis, without mention of abscess Pain in joint, pelvic region and thigh documented in this encounter Care Teams Agricultural And Forestry Supervisor Relationship Specialty Start Date End Date Nasir Velazquez MD PCP - General 02/18/99 10/06/[address] [address] documented as of this encounter
--- OUTSIDE RECORDS SUMMARY | 2021-11-04 10:42 | XMS_ITS | Encounter Summary ---
:1945 Author Organization [place] Address [address] [facility] [place] [address] Care Team Providers Name Role Phone Nasir Velazquez MD Primary Care Provider [phone] Reason for Visit Reason Comments Trauma Encounter Details Date Type Department Care Team Description 03/16/2000 Office Visit [facility] Diogo Velazquez FX DIST PHALANX, HAND-CLOSE; Physicians MD Bob HYPERTROPHY (BENIGN) PROSTATE [address] [place] [id number] (Wo rk) Social History Tobacco Use Types Packs/Day Years Used Date Former Smoker Quit: 02/05/18 85 Alcohol Use Standard Drinks/Week Comments Yes 1.7 (1 standard drink = 0.6 oz pure alco hol) Sex Assigned at Date Recorded Male 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 injured his left middle finger this morning. His toolbox lid fell on it. It is very swollen, isis ck and blue, and painful. Exam confirms small subungual hematoma, tense pulp, and Xray shows hairline crack at distal tuft. Splint protection given, keep elevated and iced tonight. Recheck prn. VIOXX TABS 25 MG OR, 2 TABLETS DAILY FOR 5 DAYS, THEN ONE TABLET DAILY AFTER THAT, D: 12, R: 1 for pain. He also reports that the medication for his prostate worked really well. He continues to have some n renetta congestion, with epistaxis occasionally, but exam of nose looks within normal limits today. NASO NEX SUSP 50 MCG/ACT NA, 2 sprays each nostril Once daily for allergies, D: 1, R: 11 and Recheck prn. documented in this encounter Nursing Notes 03/16/2000 4:15 PM CST >> DELILAH JESUS 03/16/2000 4:38 pm Pt. injured his left middle finger this morning. His toolbox lid fell on it. It is very swollen, black and blue, and painful. Questioned patient about current smoking habits. Pt. quit smoking some time ago. documented in this encounter Plan of Treatment Scheduled Orders Name Type Priority Associated Diagnoses Order S chedule X-RAY EXAM OF Imaging Routine Fx Dist Phalanx, Hand-Close Ordered: 03/16/2000 FINGER(S) documented as of this encounter Visit Diagnoses Diagnosis Closed fracture of distal phalanx or pha langes of hand HYPERTROPHY (BENIGN) PROSTATE Hypertrophy (benign) of prostate documented in this encounter Care Teams Nutrition Professor Relationship Specialty Start Date End Date Nasir Vleazquez MD PCP - General 02/18/99 10/06/13 [address] [place] [address] documented as of this encounter
--- OUTSIDE RECORDS SUMMARY | 2021-11-04 10:42 | XMS_ITS | Encounter Summary ---
:1945 Author Organization [place] Address [facility] [place] [address] Care Team Providers Name Role Phone Nasir Nicole MD Primary Care Provider [phone] Reason for Visit Reason Comments Refill Request Claritin pharm [phone] Encounter Details Date Type Department Care Team Description 04/28/1999 Telephone [facility] Estelle Messer LP N Refill Request ([facility] Physicians [phone] pharm [phone]) [address] [place] [address] (Work) [address] [place] [address] Social History Tobacco Use Types Packs/Day Years Used Date Former Smoker Quit: 02/05/18 85 Alcohol Use Standard Drinks/Week Comments Yes 1.7 (1 standard drink = 0.6 oz pure alco hol) Sex Assigned at Date Recorded 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 - - Estelle Messer Started and completed on SunApr 28, 1999 4:35 PM Sorry, should have been Y+1 - - FABRICIO NICOLE Started and completed on SunApr 28, 1999 4:31 PM CALL RECEIVED. Contact: Please clarify order. Ria in [facility] has 11 refills, but start and end dates are 04/14/99. - Estelle Messer Started and completed on SunApr 28, 1999 3:24 PM documented in this encounter Plan of Treatment Not on filedocumented as of this encounter Visit Diagnoses Not on filedocumented in this encounter Care Teams Mild Disabilities Teacher Relationship Specialty Start Date End Date Nasir Nicole MD PCP - General 02/18/99 10/06/13 [address] [place] [address] documented as of this encounter
--- OUTSIDE RECORDS SUMMARY | 2021-11-04 10:42 | XMS_ITS | Encounter Summary ---
:1945 Author Organization [place] Address [address] [facility] [place] [address] Care Team Providers Name Role Phone Nasir Velazquez MD Primary Care Provider [phone] Reason for Referral - Closed Specialty Diagnoses / Procedures Referred By Contact Refer red To Contact Dermatology Diagnoses Actinic keratosis Diogo Velazquez MD George, [place], [place] [id number] [facility] [place], [place] [address] [address] [facility] [place] [address] Phone: Fax: Referral ID Status Reason Start Date Expiration Date Visits Requ ested Visits Authorized [id number] Closed 09/26/2000 02/04/2011 1 1 Reason for Visit Reason Comments Derm Problem needs referral for f/u skin problem Pain c/o calus on bottom of L yoli t Encounter Details Date Type Department Care Team Description 09/26/2000 Office Visit Diogo Mujica ACTINIC KERATOSIS; Physicians MD Bob CORNS AND CALLOSITIES; [address] [place] [address] 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 Xray is negative. Patient education material given for treatment of this. If conserv ative therapy does not work, willneed Podiatry referral. (Also has major bunions, thoughh currently not painful. These may be causinghim to walk funny & cause the corn.) Soften the area with Lac Hy drin 12% twice per day. Hot soak the area. remove the thickened skin with a pumice stone. Wear circ ular protective pad. He also needs follow up with Dr. Kendrick Mckee for actinic keratoses. Referra l given. documented in this encounter Nursing Notes 09/26/2000 4:00 PM CDT >> TEZ BLEVINS 09/26/2000 4:35 pm Questioned patient about current smoking habits. Pt. has never smoked. documented in this encounter Plan of Treatment Scheduled Orders Name Type Priority Associated Diagnoses Order S chedule X-RAY FOOT 3+ VW Imaging Routine Corns And Callosities Or dered: 09/26/2000 documented as of this encounter Visit Diagnoses Diagnosis Actinic keratosis Corns and callosities Bunion documented in this encounter Care Teams Reserve Officer Relationship Specialty Start Date End Date Nasir Velazquez MD PCP - General 02/18/99 10/06/13 [facility] [address] [facility] [place] [address] documented as of this encounter
--- OUTSIDE RECORDS SUMMARY | 2021-11-04 10:42 | XMS_ITS | Encounter Summary ---
:1945 Author Organization [place] Address [facility] [place] [address] Care Team Providers Name Role Phone Nasir Velazquez MD Primary Care Provider [phone] Reason for Visit Reason Comments Pain c/o lower back pain / starte d yesterday carry salt bag quick movement Encounter Details Date Type Department Care Team Description 06/21/1999 Office Visit [facility] Diogo Velazquez [facility] Physicians MD Bob (Primary Dx) [address] [address] [phone] (Wo rk) Social History Tobacco Use Types Packs/Day Years Used Date Former Smoker Quit: 02/05/18 85 Alcohol Use Standard Drinks/Week Comments Yes 1.7 (1 standard drink = 0.6 oz pure alco hol) Sex Assigned at Date Recorded 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 documented as of this encounter Last Filed Vital Signs Vital Sign Reading Time Taken Comments Blood Pressure 140/86 06/21/1999 11:00 AM CDT Pulse - - Temperature 36.4 ??C (97.5 ??F) 06/21/1999 11:00 AM CDT Respiratory Rate - - Oxygen Saturation - - Inhaled Oxygen Concentration - - Weight 77.1 kg (170 lb) 06/21/1999 11:00 AM CDT Height - - Body Mass Index 25.1 09/07/1998 11:45 AM CDT documented in this encounter Progress Notes 06/21/1999 11:00 AM CDT Patient presents with: Pain - c/o lower back pain / started yesterday carry salt bag quick movemen t tried to kick something out of the way while carrying a 60 lb bag. No radiation of pain from right low back. Hurts to take a deep breath. Has a prior history of spondylolithesis. OBJECTIVE: Lumbosa cral spine area reveals local tenderness just to the right of the spine. Painful and reducedLS ROM noted. Straight leg raise is negative at 90 degrees. DTR's, motor strength and sensation normal. A ssessment: strain/spasm PLAN: FLEXERIL TABS 10 MG OR, 1 TAB PO TID (Three times per day) as needed fo r MUSCLE SPASM, D: 15,R: 0 IBUPROFEN TABS 800 MG OR, 1 tab po TID (Three times per day) with food, D : 30, R: 1 Ice/heat alternating & streching exercise program. Recheck prn. documented in this encounter Plan of Treatment Not on filedocumented as of this encounter Visit Diagnoses Diagnosis Sprain of lumbar region - Primary documented in this encounter Care Teams Superintendent General Relationship Specialty Start Date End Date Nasir Velazquez MD PCP - General 02/18/99 10/06/13 [facility] [address] [place] [address] documented as of this encounter
--- OUTSIDE RECORDS SUMMARY | 2021-11-04 10:42 | XMS_ITS | Encounter Summary ---
:1945 Author Organization [place] Address [address] [facility] [place] [address] Care Team Providers Name Role Phone Nasir Velazquez MD Primary Care Provider [phone] Reason for Referral - Closed Specialty Diagnoses / Procedures Referred By Contact Refer red To Contact Dermatology Diagnoses Actinic keratosis Diogo Velazquez MD 140349 [place], [place] [address] Referral ID Status Reason Start Date Expiration Date Visits Requ ested Visits Authorized [id number] Closed 10/06/1999 02/04/2011 1 1 - Closed Specialty Diagnoses / Procedures Referred By Contact Refer red To Contact Radiology Diagnoses Hematuria Abdominal pain, right lower quadrant Abdominal pain, other specified site Diogo Velazquez MD [id number] [place], [place] [address] Referral ID Status Reason Start Date Expiration Date Visits Requ ested Visits Authorized [id number] Closed 10/06/1999 02/04/2011 1 1 Reason for Visit Reason Comments Abdominal Pain c/o pain in stomache area no brayden in in testicle area x 6 months sx more Encounter Details Date Type Department Care Team Description 10/06/1999 Office Visit [place] Diogo Arnold ABDOMINA L PAIN RLQ; Physicians MD Bob Pain in groin; [address] [id number] DAVIS MIXED HYPERLIPIDEMIA; [address]; [place], [place] ACTINIC KE RATOSIS [phone] (Wo rk) Social History Tobacco Use Types Packs/Day Years Used Date Former Smoker Quit: 02/05/18 85 Alcohol Use Standard Drinks/Week Comments Yes 1.7 (1 standard drink = 0.6 oz pure alco hol) Sex Assigned at Date Recorded 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 Urination is more frequent & nocturia x 1. Othe rwise Review of systems is negative for . Someloose stools occasionally. Scrotum is normal to in spection and palpation. Single vas easily palpated bilaterally. Testes normal. No hernia present. No inguinal adenopathy. The abdomen is soft without tenderness, guarding, mass or organomegaly. Bowel so unds are normal. No CVA tenderness or inguinal adenopathy noted. Urinalysis shows some microhematuri a. Will get IVP. Also discussed follow up on face which has multiple actinic keratoses. 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 this is set up. We discussed sun pro tectin & screening for various cancers. He requests PSA. Also due for recheck on ipids which were hi gh two years ago, but within normal limits last year. documented in this encounter Nursing Notes 10/06/1999 9:30 AM CDT >> GUS JOHNSON 10/06/1999 10:23 am Telephone call made to schedule Terry Montero for the following: IVP Date: 10-07-99 Time: 8:00am Place: [facility] >> GUS JOHNSON 10/06/1999 9:33 am Questioned patient about current smoking habits. Pt. quit smoking some time ago. documented in this encounter Plan of Treatment Not on filedocumented as of this encounter Procedures Procedure Name Priority Date/Time Associated Comments Diagnosis ADULT DERMATOLOGY Routine 11/03/1999 Actinic Keratosis REFERRAL [facility] PSA, DIAGNOSTIC Routine 10/07/1999 7:07 AM Abdominal Pain Rlq Results for this (TUMOR MARKER) CDT Pain in groin procedure ar e in the results section. HCL COMPREHENSIVE Routine 10/07/1999 6:34 AM Abdominal P ain Rlq Results for this METABOLIC PANEL CDT Pain in groin procedure a re in the results section. RADIOLOGY REFERRAL Routine 10/07/1999 Hematuria Abdominal Pain R lq Pain in groin CL AFF URINALYSIS, Routine 10/06/1999 10:03 Abdominal Pa in Rlq Results for this ROUTINE AM CDT Pain in groin procedure are in the results section. HC VENOUS COLLECTION Routine 10/06/1999 9:50 AM Abdomina l Pain Rlq CDT Pain in groin documented in this encounter Results CONSULT TO DERMATOLOGY (11/03/1999) Narrative This result has an attachment that is no t available. Diogo Velazquez MD REFERRAL PSA (10/07/1999 7:07 AM CDT) athologist Signature [place] PSA 0.3 0.0 - 4.0 [facility] NG/ML Specimen (Source) Anatomical Location Collection Method / Collectio n Time Received Time / Laterality Volume 10/06/1999 Narrative [facility] - 10/07/1999 7:07 AM CDT PSA RESULTS BETWEEN 4.0 AND 8.0 NG/ML MAY INDICATE BENIGN PROSTATIC HYPERTROPHY OR CANCER OF THE P ROSTATE. RESULTS GREATER THAN 8.0 NG/ML ARE MORE SUGGESTI VE OF PROSTATIC CANCER AND SHOULD BE EVALUATED WITH FOLL OW-UP STUDIES. Diogo Velazquez MD LABORATORY Performing Organization Address City/State/ZIP Code Phon e Number [place] COMPREHENSIVE METABOLIC PANEL (10/07/1999 6:34 AM CDT) athologist Signature Comments DNR [facility] Glucose 98 65 - 109 [facility] MG/DL Sodium 141 133 - 145 [facility] MMOL/L Potassium 4.6 3.4 - 5.1 [facility] [place] MMOL/L Chloride 106 96 - 108 [facility] MMOL/L Urea Nitrogen 13 9 - 24 [facility] MG/DL Creatinine 1.2 0.8 - 1.4 [facility] MG/DL BUN/Creatinine 10.8 [facility] Ratio Calcium 9.2 8.4 - 10.3 [facility] MG/DL Protein Total 6.7 6.2 - 8.2 [facility] GM/DL Albumin 4.2 3.7 - 5.2 [facility] GM/DL Globulin 2.5 1.9 - 3.6 [facility] Calculated GM/DL A/G Ratio 1.7 1.1 - 2.3 [facility] Bilirubin Total 0.34 0.30 - [facility] [place] 1.40 MG/DL Alkaline 98 42 - 137 [facility] Phosphatase U/L AST 22 1 - 45 [facility] IU/L ALT 23 1 - 60 [facility] IU/L Carbon Dioxide 27.8 21.7 - [facility] 30.9 MMOL/L Specimen (Source) Anatomical Location Collection Method / Collectio n Time Received Time / Laterality Volume 10/06/1999 Diogo Velazquez MD LABORATORY Performing Organization Address City/State/ZIP Code Phon e Number [place] CONSULT TO RADIOLOGY (10/07/1999) Diogo Velazquez MD REFERRAL URINALYSIS (10/06/1999 10:03 AM CDT) [facility] Method Time Signature Color Urine yellow [facility] Appearance Urine clear [facility] Glucose Urine neg [facility] Bilirubin Urine neg [facility] Ketones Urine neg [facility] Specific [place] 1.015 [facility] Blood Urine neg [facility] pH Arterial 6.5 [facility] Protein Urine neg [facility] Urobilinogen Urine 0.2 [facility] L Nitrite Urine neg [facility] Leukocytes neg [facility] WBC Urine 0-1 [facility] RBC Urine 3-4 [facility] EP/HPF 0 [facility] Bacteria Urine 0 [facility] Casts/LPF 0 [facility] Miscellaneous sm muc [facility] Specimen (Source) Anatomical Collection Method Collection Time Re ceived Time Location / / Volume Laterality 10/06/1999 10:03 AM CDT Diogo Velazquez MD LABORATORY Performing Organization Address City/State/ZIP Code Phon e Number [facility] documented in this encounter Visit Diagnoses Diagnosis Abdominal pain, right lower quadrant Pain in groin Abdominal pain, other specified site Mixed hyperlipidemia Hematuria Actinic keratosis documented in this encounter Care Teams Pre K Teacher Relationship Specialty Start Date End Date Nasir Velazquez MD PCP - General 02/18/99 10/06/[address] [address] documented as of this encounter
--- OUTSIDE RECORDS SUMMARY | 2021-11-04 10:42 | XMS_ITS | Encounter Summary ---
:1945 Author Organization [place] Address [facility] 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 informed of message. - Estelle Messer Started and completed on SunMar 23, 2000 4:57 PM May want to try ENT consult to have nose scoped & see if he needs a vessel cauterized. ------- - Dr. Diogo Velazquez Started and completed on SunMar 23, 2000 4:14 PM CALL RECEIVED. Contact: can leave message Left message on nurse line stated he was seen on 03/16. Stated nasal spray is not helping his nose. Stated he cont. to have bloody nose qd. Will be flying in a week. Wants to know what else to try . To - Estelle Messer Started and completed on SunMar 23, 2000 3:48 PM documented in this encounter Plan of Treatment Not on filedocumented as of this encounter Visit Diagnoses Not on filedocumented in this encounter Care Teams Filling Machine Set Up Mechanic Relationship Specialty Start Date End Date Nasir Velazquez MD PCP - General 02/18/99 10/06/13 [facility] [address] [place] [address] documented as of this encounter
--- OUTSIDE RECORDS SUMMARY | 2021-11-04 10:42 | XMS_ITS | Encounter Summary ---
:1945 Author Organization [place] Address [facility] [place] [address] Care Team Providers Name Role Phone Nasir Velazquez MD Primary Care Provider [phone] Reason for Visit Reason Comments Back Pain Encounter Details Date Type Department Care Team Description 04/20/2001 Office Visit [facility] Sharath Nam [facility]; Physicians MD Geoff SPASM OF MUSCLE; [address] XXX RETIRED XXX LUMBAGO [address] [facility] [facility] [place] [place] [address] [place], [place] [phone] [address] (Wo rk) Social History Tobacco Use Types Packs/Day Years Used Date Former Smoker Quit: 02/05/18 85 Alcohol Use Standard Drinks/Week Comments Yes 1.7 (1 standard drink = 0.6 oz pure alco hol) Sex Assigned at Date Recorded 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 Last Filed Vital Signs Vital Sign Reading Time Taken Comments Blood Pressure 130/80 04/20/2001 10:15 AM ONLINE MERCHANT Pulse - - Temperature 36.3 ??C (97.3 ??F) 04/20/2001 10:15 AM ONLINE MERCHANT Respiratory Rate 16 04/20/2001 10:15 AM ONLINE MERCHANT Oxygen Saturation - - Inhaled Oxygen Concentration - - Weight 85.3 kg (188 lb) 04/20/2001 10:15 AM ONLINE MERCHANT Height - - Body Mass Index 26.98 09/16/1999 10:45 AM CDT documented in this encounter Progress Notes 04/20/2001 10:15 AM ONLINE MERCHANT SPRAIN LUMBAR REGION [847.2] SPASM OF MUSCLE [728.85] He has been having some back pain for the last 3 dyas. He does not remember any spec injury. A few years ago he had some back pain, but has had no problems recently. No raditaion of hte pain. No weakness, no numbness. Patient Active Problem List: ACTINIC KERATOSIS[702.0] ALLERGIC RHINITIS NOS[477.9] MIXED HYPERLIPIDEMIA[272.2] HYPERTROP HY (BENIGN) PROSTATE[600.0] ESOPHAGEAL REFLUX[530.81] BUNION[727.1] There is no previous medical history on file. Review of patient's family history indicates: Diabetes Mate rnal Grandmother Social History Marital Status: Spouse Name: Years of Education: Number of children: Social History Main Topics Tobacco Use: Quit Packs/Day: Years: Quit date: 02/06/1984 Alcohol Use: Y es 1 oz/week Drug Use: Not Asked Sexually Active: Not Asked Other Topics Concern None on file Social History Narrative None on file There is no previous surgic al history on file. Meds as of 04/20/2001: CARDURA TABS 4 MG OR, 1 TABLET DAILY, D: 90, R: 1 CLARITIN TABS 10 MG OR, 1 TAB PO QD (Once per day) as needed for ALLERGY SYMPTOMS, D: 90, R: 1 ACIPHEX TBEC 20 MG OR, 1 TABLET EVERY MORNING, D: 30, R: 11 ADVAIR DISKUS MISC 100-50 MCG/DOSE IN, one inhalation tw ice per day, D: 1, R: 0 Review of patient's allergies indicates: Quinazolines get bloody noses from Flomax Mometasone Fur* gets bloody noses from Nasonex Exam: Appears well, in no apparent distress. Vital signs are normal. Lumbo-sacral spine area reveals kat local tenderness along the R l ower paralumbar muscles with some spasm. Painful and reduced LS ROM noted. Straight leg raise is neg at 80 degrees on R and L. DTR's, motor strength and sensation normal, including heel and toe gait. Peripheral pulses are palpable. 847.2 SPRAIN LUMBAR REGION Plan: MOTRIN TABS 800 MG OR, X-RAY DEVIN MBAR SPINE 4 VW Discussed medication in detail including dosing, side effects, and interactions. 728.85 SPASM OF MUSCLE Note: nOted Plan: FLEXERIL TABS 10 MG OR Discussed medication in deta il including dosing, side effects, and interactions. 724.2 LUMBAGO Note: As above Plan: X-RAY LUMBA R SPINE 4 VW Spondolith noted. documented in this encounter Nursing Notes 04/20/2001 10:15 AM CST >> MEDCRAFT, DOMINGA 04/20/2001 9:46 am pt c/o back pain x3D, NKI to back, just bending over documented in this encounter Plan of Treatment Not on filedocumented as of this encounter Procedures Procedure Name Priority Date/Time Associated Diagnosis Comme nts HC X-RAY LUMBAR SPINE Routine 04/20/2001 Sprain Lum bar Region Results for this MIN 4 VIEWS Lumbago procedure are i n the results section . documented in this encounter Results X-RAY LUMBAR SPINE 4 VW (04/20/2001) Anatomical Region Laterality Modality Other Narrative 04/20/2001 REFERRING PHYSICIAN: SHARATH NAM M.D. PATIENT NAME: LO ??THIEN : ??45 EXAM DATE: ??04/20/01 TYPE OF EXAM: LUMBAR SPINE There is moderate degenerative change wi th disc space narrowing at L5, S1, and there is 15-20% spondylolisthesis of L5 on S1. There is mild degenerative change about the facet join ts at L5, S1, and the spondylolisthesis may be degener ative in nature. No definite spondylolysis is silvina ntified at this time. The remaining lumbar vertebral structure s and disc spaces are otherwise normal. There are n o fractures nor bony lesions. The SI joints are norm al. If there is clinical concern regarding t he possibility of spondylolysis, a thin section CT scan wo uld be more definitive. OBI DAVIS M.D. Certified - [place] [employer] Accredited for Mammography - [place] [employer] MJG/rs dt: ??04/24/01 ? Sharath Nam MD GENERAL IMAGING documented in this encounter Visit Diagnoses Diagnosis Sprain of lumbar region Spasm of muscle Lumbago documented in this encounter Care Teams Orthotic Technician Relationship Specialty Start Date End Date Nasir Velazquez MD PCP - General 02/18/99 10/06/13 [address] [id number] [place] [address] documented as of this encounter
--- OUTSIDE RECORDS SUMMARY | 2021-11-04 10:42 | XMS_ITS | Encounter Summary ---
:1945 Author Organization [place] Address [address] [place] [address] Care Team Providers Name Role Phone Nasir Velazquez MD Primary Care Provider [phone] Reason for Visit Reason Comments Cough c/o clear phlegmy cough x 9 days. No fever. 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 No fever. - stated he gets susanna st pain from coughing. Started as sore throat, but no headache or ear pain. External ears and canal s clear bilaterally. TM's normal bilaterally. Nose normal without lesions ordischarge. Oropharynx no rmal. Neck supple without palpable adenopathy. Chest wall normal to inspection and palpation. Good ex cursion bilaterally. Lungs clear to auscultation. Good air movement bilaterally without rales, wheeze s, or rhonchi. Cardiac exam shows NSR without murmur or gallop. Assessment: This is likely viral et iology. Cough/irritation/cough cycle has started. PLAN: ADVAIR DISKUS MISC 100-50 MCG/DOSE IN, one in halation twice per day, D: 1, R: 0 sample given. Recheck immediately if worsening, or if not improvin g in a few days, otherwise PRN. documented in this encounter Nursing Notes 06/11/2000 5:15 PM CDT >> TEZ BLEVINS 06/11/2000 5:45 pm Questioned patient about current smoking habits. Pt. has never smoked. documented in this encounter Plan of Treatment Not on filedocumented as of this encounter Visit Diagnoses Diagnosis Cough - Primary documented in this encounter Care Teams Welding Lead Burner Relationship Specialty Start Date End Date Nasir Velazquez MD PCP - General 02/18/99 10/06/13 [facility] [address] [place] [address] documented as of this encounter
--- OUTSIDE RECORDS SUMMARY | 2021-11-04 10:42 | XMS_ITS | Encounter Summary ---
:1945 Author Organization [place] Address [address] [facility] [place] [address] Care Team Providers Name Role Phone Nasir Nicole MD Primary Care Provider [phone] Reason for Visit Reason Comments Refill Request Encounter Details Date Type Department Care Team Description 11/11/2001 Refill [facility] Fabricio Nicole MD Refill Request Physicians [id number] [facility] [address] [address] [address] [place] [address] [phone] Social History Tobacco Use Types Packs/Day Years Used Date Former Smoker Quit: 02/05/18 85 Alcohol Use Standard Drinks/Week Comments Yes 1.7 (1 standard drink = 0.6 oz pure alco hol) Sex Assigned at Date Recorded 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 >> FABRICIO NICOLE SunNov 11, 2001 3:01 PM OK- printed in pod 1 >> GUS JOHNSON SunNov 11, 2001 2:35 PM Pt would like mail order. >> GUS JOHNSON SunNov 11, 2001 10:24 AM >> CALL RECEIVED. Contact: [phone] Pt called triage today with the following issue(s): Pt would like refills. Pt was not clear what he needs refilled called left message to call clinic. documented in this encounter Plan of Treatment Not on filedocumented as of this encounter Visit Diagnoses Not on filedocumented in this encounter Care Teams Collar Shaper Operator Relationship Specialty Start Date End Date Naisr Nicole MD PCP - General 02/18/99 10/06/13 [place] [id number] [place] [address] documented as of this encounter
--- OUTSIDE RECORDS SUMMARY | 2021-11-04 10:42 | XMS_ITS | Encounter Summary ---
:1945 Author Organization [place] Address [address] [facility] [place] [address] Care Team Providers Name Role Phone Nasir Velazquez MD Primary Care Provider [phone] Reason for Visit Reason Comments Refill Request Derm Problem lesion right congregational area Encounter Details Date Type Department Care Team Description 11/12/2001 Office Visit [place] Diogo Arnold SEBISAUROE IC KERATOSIS NOS (Primary Dx); Physicians MD Bob SCREENING-LIPOID DISORDERS; [address] [place] [id number] [place] ALLERGIC RHINITIS NOS; [address] HYPERTROPHY (B[place]IGN) [place] [address] [phone] (Wo rk) Social History Tobacco Use Types Packs/Day Years Used Date Former Smoker Quit: 02/05/18 85 Alcohol Use Standard Drinks/Week Comments Yes 1.7 (1 standard drink = 0.6 oz pure alco hol) Sex Assigned at Date Recorded 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 Meds as of 11/12/2001: CLARITIN 10 MG OR TABS 1 TAB PO QD (Once per day) as needed for ALLERGY SYMPTOMS CARDURA 4 MG OR TABS 1 TABLET DAILY ACIPHEX 20 MG OR TBEC 1 TABLET EVERY MORNING These are given. Derm Problem - lesion right congregational area. It has benign appea deric, with sharp borders, it is symmetrical, color is uniform, diameter is 3 mm, and does not look d ifferent from other lesions on his body. He has an actinic keratoses vs seborrheic keratosis there. Favor #2. Skin survey of remainder of body shows no suspicious lesions. Recheck in one year documented in this encounter Nursing Notes 11/12/2001 8:45 AM CDT >> MAURICE BOSWELL 11/12/2001 9:03 am Pt here for refill on medications. Pt also wants you to look at lesion on right congregational area. documented in this encounter Plan of Treatment Not on filedocumented as of this encounter Visit Diagnoses Diagnosis Other seborrheic keratosis - Primary Screening for lipoid disorders Allergic rhinitis, cause unspecified HYPERTROPHY (BENIGN) PROSTATE Hypertrophy (benign) of prostate documented in this encounter Care Teams Bow String Maker Relationship Specialty Start Date End Date Nasir Velazquez MD PCP - General 02/18/99 10/06/13 [facility] [address] [place] [address] documented as of this encounter
--- OUTSIDE RECORDS SUMMARY | 2021-11-04 10:42 | XMS_ITS | Encounter Summary ---
:1945 Author Organization [place] Address [address] [facility] [place] [address] Care Team Providers Name Role Phone Nasir Nicole MD Primary Care Provider [phone] Reason for Referral - Closed Specialty Diagnoses / Procedures Referred By Contact Refer red To Contact ENT-Otolaryngology Diagnoses Chronic frontal sinusitis Fabricio [place] [address] [place], [place] [address] Referral ID Status Reason Start Date Expiration Date Visits Requ ested Visits Authorized [id number] Closed 03/29/2000 02/04/2011 1 1 ER FEEDER Reason for Visit Reason Comments Sinus Problem Encounter Details Date Type Department Care Team Description 03/29/2000 Office Visit [facility] [place] Nicole [facility] SINUSITIS Physicians MD Bob (Primary Dx) [address] [address] [phone] (Wo rk) Social History Tobacco Use Types Packs/Day Years Used Date Former Smoker Quit: 02/05/18 85 Alcohol Use Standard Drinks/Week Comments Yes 1.7 (1 standard drink = 0.6 oz pure alco hol) Sex Assigned at Date Recorded Male 01/15/2018 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 Pt states that nasal steroid is not helping. Pt also c/o cold sx x 2 days. Bloody mucous since taking the Nasonex. Both Flomax & Cardura helped his pros tatism symptoms, but may have contributed to nasal congestion. The congestin though, did start before the medications. External ears and canals clear bilaterally. TM's normal bilaterally. Nose normal w ithout lesions ordischarge. Oropharynx normal. Neck supple without palpable adenopathy. Xray of sinu ses taken. Radiologist interpretation pending. Assessment: The etiology of this problem is unclear. PLAN: CONSULT TO ENT [[id number]] Order #: [id number] Class: External referral Continue current medications for the time being. documented in this encounter Nursing Notes 03/29/2000 4:45 PM CST >> CARLEY GEORGE 03/29/2000 4:52 pm Pt c/o continued sinus congestion x 6 weeks. Pt states that nasal steroid is not helping. Pt also c/o cold sx x 2 days. documented in this encounter Plan of Treatment Not on filedocumented as of this encounter Procedures Procedure Name Priority Date/Time Associated Diagnosis Comme nts ADULT OTOLARYNGOLOGY Routine 04/18/2000 Chr Frontal Sinusiti s ENGLISH ADJUNCT FACULTY REFERRAL HC X-RAY SINUSES <3 VIEWS Routine 04/06/2000 Chr Frontal Sin usitis Results for this procedure are i n the results section. documented in this encounter Results CONSULT TO ENT (04/18/2000) Narrative This result has an attachment that is no t available. Fabricio Nicole MD REFERRAL X-RAY SINUSES <3 VW (04/06/2000) Anatomical Region Laterality Modality Other Narrative 04/06/2000 REFERRING PHYSICIAN: FABRICIO NICOLE M.D. PATIENT NAME: LO NEUMANN : ??45 EXAM DATE: ??03/29/00 TYPE OF EXAM: SINUS FILMS Normal. The sinuses are clear. Bony stru ctures are normal. There is no change from 02/07/93. CONCLUSION: ??Normal sinus. OBI DAVIS M.D. Certified - [place] [employer] Accredited for Mammography - [employer] MJG/rb dt: ??04/03/00 Fabricio Nicole MD GENERAL IMAGING documented in this encounter Visit Diagnoses Diagnosis Chronic frontal sinusitis - Primary documented in this encounter Care Teams System Specialist Relationship Specialty Start Date End Date Nasir Nicole MD PCP - General 02/18/99 10/06/13 [facility] [address] [place] [address] documented as of this encounter
--- OUTSIDE RECORDS SUMMARY | 2021-11-04 10:42 | XMS_ITS | Encounter Summary ---
:1945 Author Organization [place] Address [address] [facility] [address] Care Team Providers Name Role Phone Nasir Velazquez MD Primary Care Provider [phone] Reason for Referral - Closed Specialty Diagnoses / Procedures Referred By Contact Refer red To Contact Urology Diagnoses Hematuria Abdominal pain, right lower quadrant Diogo Velazquez MD Fallen, Marlon Castro MD 375147 [facility] [place], [place] [address] [address] [place], [place] [address] Phone: Fax: Referral ID Status Reason Start Date Expiration Date Visits Requ ested Visits Authorized [id number] Closed 10/14/1999 02/04/2011 1 1 Reason for Visit Reason Comments Lipids Results Encounter Details Date Type Department Care Team Description 10/14/1999 Office Visit Diogo Mujica MIXED HY PERLIPIDEMIA; Physicians MD Bob ABDOMINAL PAIN RLQ; [address] [address] [facility] [address] [place] [address] [phone] (Wo rk) Social History Tobacco Use Types Packs/Day Years Used Date Former Smoker Quit: 02/05/18 85 Alcohol Use Standard Drinks/Week Comments Yes 1.7 (1 standard drink = 0.6 oz pure alco hol) Sex Assigned at Date Recorded Male 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 is here to get his cholesterol checked. He also had a IVP done last week and would like to go ov er the results. This was within normal limits except small post void residual. He continues to have a sensation of right inguinal hernia, but I checked again today & did not feel one. Will get Urolog ist consult. I reviewed all his normal lab tests including PSA from last week. His lipids are chec ked & Will contact patient when lab results available. documented in this encounter Nursing Notes 10/14/1999 9:45 AM CDT >> DELILAH JESUS 10/14/1999 9:46 am Pt. is here to get his cholesterol checked. He also had a IPV done last week and would like to go over the results. Questioned patient about current smoking habits. Pt. quit smoking some time ago. documented in this encounter Plan of Treatment Not on filedocumented as of this encounter Procedures Procedure Name Priority Date/Time Associated Diagnosis Comme nts ADULT UROLOGY Routine 11/02/1999 Hematuria FRUIT AND VEGETABLE CLASSER REFERRAL Abdominal Pain Rlq HCL LIPID PANEL Routine 10/14/1999 10:30 Mixed Hyperlipidemia Results for this AM CDT procedure are i n the results section. HC VENOUS Routine 10/14/1999 9:55 AM Mixed Hyperlipidemia COLLECTION CDT documented in this encounter Results CONSULT TO UROLOGY (11/02/1999) Narrative This result has an attachment that is no t available. Diogo Velazquez MD REFERRAL (ABNORMAL) A.M.A. LIPID PANEL (10/14/1999 10:30 AM CDT) [facility] Method Time Signature Comments DNR [facility] [place] Triglycerides 220 (H) 40 - 199 MG/DL [facility] [place] Cholesterol 184 120 - 199 [facility] MG/DL [place] Cholesterol 18 PERCENTILE [facility] Percentile [place] HDL Cholesterol 40.0 35ORHIGHER [facility] MG/DL [place] LDL Cholesterol 100 75 - 129 MG/DL [facility] Calculated [place] Comment: * CUTOFF VALUES RECOMMENDED BY THE [facility] CHOLESTEROL EDUCATION PROGRAM: ?LIPID ? DESIRAB LE ?BORDERLINE ? HIGH RISK ?CHOLESTEROL ?LT 200 MG/D L ?? 200-239 MG/DL ?? GT 239 MG/DL ?LDL CHOLESTEROL ??LT 130 MG/DL ?? 130-159 MG/DL ?? GT 159 MG/DL ?HDL CHOLESTEROL ? LT 35 MG/DL ?TRIGLYCERIDES ?LT 200 MG/DL ?? 200-399 MG/DL ?? GT 399 MG/DL Cholesterol/HDL Ratio 4.6 3.9 - 6.6 [facility] [place] Specimen (Source) Anatomical Collection Method Collection Time Re ceived Time Location / / Volume Laterality 10/14/1999 10:30 10/14/1999 AM CDT Diogo Velazquez MD LABORATORY Performing Organization Address City/State/ZIP Code Phon e Number [place] documented in this encounter Visit Diagnoses Diagnosis Mixed hyperlipidemia Abdominal pain, right lower quadrant Hematuria documented in this encounter Care Teams Floorworker Distributor Relationship Specialty Start Date End Date Nasir Velazquez MD PCP - General 02/18/99 10/06/13 [facility] [address] [place] [address] documented as of this encounter
--- OUTSIDE RECORDS SUMMARY | 2021-11-04 10:42 | XMS_ITS | Encounter Summary ---
:1945 Author Organization [place] Address [address] [facility] [place] [address] Care Team Providers Name Role Phone Nasir Nicole MD Primary Care Provider [phone] Reason for Visit Reason Comments Cough recheck, not bettter Ulcer bacteria test? 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 There has b een no significant fever.It is nonproductive. Chest wall normal to inspection and palpation. Good ex cursion bilaterally. Lungs clear to auscultation. Good air movement bilaterally without rales, wheeze s, or rhonchi. The chest x-ray is negative. Radiologist interpretation pending. Ulcer -wants an other bacteria test? - treated for H.Pylori a few years ago with great results, nothaving similar di scomfort for ~ 6 months. His symptoms are more GERD than ulcer. The abdomen is soft without tendernes s, guarding, mass or organomegaly. Bowel sounds are normal. H.Pylori is negative. Assessment: probabl y GERD without ulcer. Cough may be related to this as well. PLAN: ACIPHEX TBEC 20 MG OR, 1 TABLET EV OBDULIO MORNING, D: 30, R: 11 He may have refills if the medication works well for him. Let us know if either heartburn or cough persists. documented in this encounter Nursing Notes 06/28/2000 4:45 PM CDT >> LOIDA AMADO 06/28/2000 4:47 pm Pt. currently is nonsmoker. documented in this encounter Plan of Treatment Not on filedocumented as of this encounter Procedures Procedure Name Priority Date/Time Associated Comments Diagnosis HC CHEST TWO VIEWS, Routine 07/09/2000 Cough Results for this FRONT/LAT procedure are i n the results section. HCL HELICOBACTER Routine 06/28/2000 5:30 PM Abdominal Pain Res ults for this PYLORI LISET IGG CDT Epigastric procedure are in the results section. HC VENOUS COLLECTION Routine 06/28/2000 5:11 PM Abdominal Pain CDT Epigastric documented in this encounter Results CHEST X-RAY 2 VW (07/09/2000) Anatomical Region Laterality Modality Other Narrative 07/09/2000 REFERRING PHYSICIAN: FABRICIO NICOLE M.D. PATIENT NAME: LO NEUMANN : [birth year] EXAM DATE: ??06/28/00 TYPE OF EXAM: CHEST The lungs are clear, with no evidence fo r any infiltrate or mass at this time. The heart size is normal, and the pulmon sanaz vasculature is normal. CONCLUSION: ??Normal chest. OBI DAVIS M.D. Certified - [place] [employer] Accredited for Mammography - [employer] MJG/rb dt: ??07/03/00 Fabricio Nicole MD GENERAL IMAGING H. PYLORI AB IGG (06/28/2000 5:30 PM CDT) P athologist Signature Heliobacter neg [facility] pylori Antibody Screen Specimen (Source) Anatomical Collection Method Collection Time Re ceived Time Location / / Volume Laterality 06/28/2000 5:30 PM CDT Fabricio Nicole MD LABORATORY Performing Organization Address City/State/ZIP Code Phon e Number [facility] documented in this encounter Visit Diagnoses Diagnosis Cough - Primary Abdominal pain, epigastric Esophageal reflux documented in this encounter Care Teams Drapery Inspector Relationship Specialty Start Date End Date Nasir Nicole MD PCP - General 02/18/99 10/06/13 [place] [id number] [place] [address] documented as of this encounter
--- OUTSIDE RECORDS SUMMARY | 2021-11-04 10:42 | XMS_ITS | Encounter Summary ---
:1945 Author Organization [place] Address [address] [facility] [place] [address] Care Team Providers Name Role Phone Nasir Velazquez MD Primary Care Provider [phone] Reason for Visit Reason Comments Results Encounter Details Date Type Department Care Team Description 10/07/1999 Telephone [facility] Diogo Velazquez MD Results Physicians [id number] [facility] [address], [place] [address] [address] [place] [address] [phone] Social History Tobacco Use Types Packs/Day Years Used Date Former Smoker Quit: 02/05/18 85 Alcohol Use Standard Drinks/Week Comments Yes 1.7 (1 standard drink = 0.6 oz pure alco hol) Sex Assigned at Date Recorded Male 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 - Ariella Lazaro Started and completed on SunOct 08, 1999 9:45 AM CALL RECEIVED. Contact: Patient called requesting IVP results, IVP was normal. Per BAB. - Ariella Lazaro Started and completed on SunOct 07, 1999 3:35 PM documented in this encounter Plan of Treatment Not on filedocumented as of this encounter Visit Diagnoses Not on filedocumented in this encounter Care Teams Manager Crisis Relationship Specialty Start Date End Date Nasir Velazquez MD PCP - General 02/18/99 10/06/13 [place] [id number] [place] [address] documented as of this encounter
--- OUTSIDE RECORDS SUMMARY | 2021-11-04 10:42 | XMS_ITS | Encounter Summary ---
:1945 Author Organization [place] Address [address] [facility] [place] [address] Care Team Providers Name Role Phone Nasir Velazquez MD Primary Care Provider [phone] Reason for Referral - Closed Specialty Diagnoses / Procedures Referred By Contact Refer red To Contact Urology Diagnoses Unspecified disorder of male genital organs Diogo Velazquez MD Fallen, Marlon Castro MD [id number] [facility] UROLOGY PA [place], [place] [address] [address] [facility] [address] [place], [place] [address] Phone: Fax: Referral ID Status Reason Start Date Expiration Date Visits Requ ested Visits Authorized [id number] Closed 12/26/1999 02/04/2011 1 1 F AND ANNEAL OPERATOR - Closed Specialty Diagnoses / Procedures Referred By Contact Refer red To Contact Orthopedics Diagnoses Pain in joint, pelvic region and thigh Diogo Velazquez MD Simonet, Lux Rg [place] 113350 [facility] ORTHOPEDICS [place], [place] [address] [place] [address] Phone: Fax: Referral ID Status Reason Start Date Expiration Date Visits Requ ested Visits Authorized [id number] Closed 12/26/1999 02/04/2011 1 1 F AND ANNEAL OPERATOR Reason for Visit Reason Comments RECHECK Pain Encounter Details Date Type Department Care Team Description 12/26/1999 Office Visit Diogo Mujica JOINT PA IN-PELVIS (Primary Dx); Physicians MD Bob Pain in scrotum [address] [place] [address] [phone] (Wo rk) Social History Tobacco Use Types Packs/Day Years Used Date Former Smoker Quit: 02/05/18 85 Alcohol Use Standard Drinks/Week Comments Yes 1.7 (1 standard drink = 0.6 oz pure alco hol) Sex Assigned at Date Recorded Male 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 documented as of this encounter Last Filed Vital Signs Vital Sign Reading Time Taken Comments Blood Pressure 132/74 12/26/1999 11:45 AM SCARF AND ANNEAL OPERATOR Pulse - - Temperature 37.3 ??C (99.2 ??F) 12/26/1999 11:45 AM SCARF AND ANNEAL OPERATOR Respiratory Rate - - Oxygen Saturation - - Inhaled Oxygen Concentration - - Weight 79.8 kg (176 lb) 12/26/1999 11:45 AM SCARF AND ANNEAL OPERATOR Height - - Body Mass Index 25.25 09/16/1999 10:45 AM CDT documented in this encounter Progress Notes 12/26/1999 11:45 AM SCARF AND ANNEAL OPERATOR Just finishing his buildup up Cardura, which seemed to have helped his prostatism symptoms. He feels his right testicle draws up higher & is a chronic low grade pain. Did not benefit from a Urologist recommended antibiotics course for epipdymitis. The pain in his hips was better for a while, but h as flared again today. 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 Sent him to see Dr. Rushing. Also co ntinues to have right testicular pain. Scrotum is normal to inspection and palpation. Singlevas eas stephany palpated bilaterally. Testes normal. No hernia present. No inguinal adenopathy. His right testicl e does ride high in the canal. Referred back to see Urologist again. documented in this encounter Nursing Notes 12/26/1999 11:45 AM CST >> DELILAH JESUS 12/26/1999 12:00 pm Pt. here to recheck his medication. He is also here to have an x-ray on his hips- he has had pain for a couple of months. Questioned patient about current smoking habits. Pt. quit smoking some time ago. documented in this encounter Plan of Treatment Scheduled Orders Name Type Priority Associated Diagnoses Order S chedule X-RAY HIP UNI 2+ VW Imaging Routine Joint Pain-Pelvis Ord ered: 12/26/1999 documented as of this encounter Procedures Procedure Name Priority Date/Time Associated Diagnosis Comme nts ORTHOPEDICS ADULT REFERRAL Routine 01/03/2000 Joint Pain-Pel vis documented in this encounter Results CONSULT TO ORTHOPEDICS (01/03/2000) Narrative This result has an attachment that is no t available. Diogo Velazquez MD REFERRAL documented in this encounter Visit Diagnoses Diagnosis Pain in joint, pelvic region and thigh - Primary Pain in scrotum Unspecified disorder of male genital org ans documented in this encounter Care Teams Media Arts Professor Relationship Specialty Start Date End Date Nasir Velazquez MD PCP - General 02/18/99 10/06/13 [facility] [address] [place] [address] documented as of this encounter
--- OUTSIDE RECORDS SUMMARY | 2021-11-04 10:43 | XMS_ITS | Encounter Summary ---
:1945 Author Organization [place] Address [address] [facility] [place] [address] Care Team Providers Name Role Phone Unavailable Primary Care Provider Unavailable Reason for Visit Reason Comments Derm Problem check lesions on face Encounter Details Date Type Department Care Team Description 09/07/1998 Office Visit [facility] Diogo Velazquez AC TINIC KERATOSIS; Physicians SEBACEOUS CYST [address] [id number] [facility] [address] [place] [address] [phone] Social History Tobacco Use Types Packs/Day Years Used Date Former Smoker Quit: 02/05/18 85 Alcohol Use Standard Drinks/Week Comments Yes 1.7 (1 standard drink = 0.6 oz pure alco hol) Sex Assigned at Date Recorded Male 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 Has multiple past actinic keratosis on face. Tx. in past with liquid N2. now has new lesion on left cheek which looks the s chika.Single 30 sec freeze given. The lesion on the tip of the nose has no surface component. Like ly a sebaceous cyst. The patient is reassured that this symptom does not appear to represent a seri ous or threatening condition. Observe and recheck prn if worsening, or not resolving. Finally he robles s a recall letter for lipids, but thinks he had them drawn in January. Will check his paper chart & put on recall for the appropriate time. documented in this encounter Plan of Treatment Not on filedocumented as of this encounter Procedures Procedure Name Priority Date/Time Associated Diagnosis Comme nts DESTRUC PREMALIGNANT, Routine 09/07/1998 2:11 PM CDT Actinic K eratosis FIRST LESION documented in this encounter Visit Diagnoses Diagnosis Actinic keratosis Sebaceous cyst documented in this encounter
--- OUTSIDE RECORDS SUMMARY | 2021-11-04 10:43 | XMS_ITS | Encounter Summary ---
:1945 Author Organization [place] Address [facility] [place] [address] Care Team Providers Name Role Phone Unavailable Primary Care Provider Unavailable Reason for Visit Reason Comments Allergies Claritin refill; discuss gaye g-term effects; Lab results discuss lab results 03/24/98 Derm Problem check lesion L forearm x 1 w k; Encounter Details Date Type Department Care Team Description 04/13/1998 Office Visit [facility] Diogo Velazquez ALLERGIC RHINITIS NOS Physicians MD Bob [address] [place] [address] [phone] (Wo rk) Social History Tobacco Use Types Packs/Day Years Used Date Former Smoker Quit: 02/05/18 85 Alcohol Use Standard Drinks/Week Comments Yes 1.7 (1 standard drink = 0.6 oz pure alco hol) Sex Assigned at Date Recorded 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
--- OUTSIDE RECORDS SUMMARY | 2021-11-04 10:43 | XMS_ITS | Encounter Summary ---
:1945 Author Organization [place] Address [address] [facility] 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
== END 2021-10-31 20:15 | disposition home or self-care (01) ==
PROVIDERS: Emergency Provider Family Medicine; PCP Internal Medicine
DX: K57.92 Diverticulitis of intestine, part unspecified, without perforation or abscess without bleeding (principal)
CPT/HCPCS: 36415; 74177; 80053; 81001; 85025; 86140; 96374; 99284; A9270; J1885; J7030; Q9967

== ENCOUNTER 2021-11-07 15:36 | Outpatient (CLI) | payer MEDICARE, SELFPAY ==
--- OUTSIDE RECORDS SUMMARY | 2021-11-07 15:40 | XMS_ITS | Encounter Summary ---
:1945 Author Organization [place] Address [address] [facility] [place] [address] Care Team Providers Name Role Phone Raghavendra Deras MD Primary Care Provider Unavailable Raghavendra Deras MD Unavailable Unavailable Reason for Visit Rehab Therapy Integrated Services - Closed Specialty Diagnoses / Procedures Referred By Contact Refer red To Contact Diagnoses Hoarseness R49.[address] [facility] Procedures [facility] [address] [place] [phone] Phone: Fax: Referral ID Status Reason Start Date Expiration Date Visits Requ ested Visits Authorized [id number] Closed 04/05/2018 02/04/2019 365 365 Encounter Details Date Type Department Care Team Description 04/10/2018 Hospital Encounter M [facility] Mckay Aguilar MD [facility] [address] [place] [id number] Rehabilitation Jyoti Blevins, DIGITAL LIBRARIAN [address] [place], [place] [address] [address] [place] [address] [address] [place] [id number] Social History Tobacco Use Types Packs/Day Years [...] at Date Recorded Male 01/15/2018 11:39 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 [facility] DIGITAL LIBRARIAN Voice Evaluation with Videostroboscopy 04/10/18 1115 General [...] with plan of care Yes Patient Education DIGITAL LIBRARIAN provided education regarding evaluation and videostroboscopy findings [...] of 10, 90% of the time by DIGITAL LIBRARIAN judgment, so that patient is able to [...] Date 07/11/18 Total Session Time Voice Minutes (36888) 35 Laryngoscopy W/Stroboscopy Minutes (89192) 30 Total Evaluation Time 65 Thank you for the referral of this patient. Jyoti Luo B.A. (lissette)Leo, [facility]-DIGITAL LIBRARIAN Speech-Language Pathologist Certificate of Vocology [facility] [phone] documented in this encounter Miscellaneous Notes Addendum Note - Jyoti Robert SLP - 04/10/2018 11:59 PM ORDER PLANNER Encounter addended by: Jyoti Luo SLP on: 04/23/2018 8:59 AM Actions taken: Sign clinical note, Flowsheet accepted Addendum Note - Jyoti Robert SLP - 04/10/2018 11:59 PM ORDER PLANNER Encounter addended by: Jyoti Luo SLP on: 05/01/2019 9:33 AM Actions taken: Episode resolved documented in this encounter Plan of Treatment Not on filedocumented as of this encounter Visit Diagnoses Not on filedocumented in this encounter Care Teams Bioprocess Engineer Relationship Specialty Start Date End Date Raghavendra Deras MD PCP - General Family Practice 10/07/13 Raghavendra Deras MD Assigned PCP 01/23/16 05/14/21 documented as of this encounter
--- OUTSIDE RECORDS SUMMARY | 2021-11-07 15:40 | XMS_ITS | Encounter Summary ---
:1945 Author Organization [place] Address [address] [facility] 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
--- OUTSIDE RECORDS SUMMARY | 2021-11-07 15:40 | XMS_ITS | Encounter Summary ---
:1945 Author Organization [place] Address [facility] 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 Camilo Julio MA on 05/13/2018 at 2:49 PM SUBJECTIVE: Terry Montero is a 73 year old male who presents to clinic with his today for the following health issues: Patient here for follow-up of hypertension. He increased the losartan and added hydrochlorothiazide at the end of March. Patient continues to take doxazosin as well. His at home blood pressures havebeen low and he wonders if his medications need to be changed again. Denies chest pain, heart palpitations, peripheral edema, shortness of breath, lightheadedness, or vision changes. BP Readings from Last 3 Encounters: 05/13/18 112/72 04/15/18 126/70 04/05/18 132/84 Patient would like to receive the shingrix vaccine today. Problem list and histories reviewed & adjusted, [...] Uncle ??? Prostate Cancer Other Cousin ROS: RESP: NEGATIVE for significant cough or SOB CV: NEGATIVE for chest pain, palpitations or peripheral edema This document serves as a record of the services and decisions personally performed and made by Raghavendra Deras MD. It was created on his behalf by Radha Mobley, a trained medical customer service representative. The creation of this document is based on the provider's statements to the medical customer service representative. Radha Mobley 2:56 PM May 13, 2018 OBJECTIVE: BP 112/72 (BP Location: Right arm, Patient Position: Sitting, Cuff Size: Adult Large) Pulse 64 Temp 97.7 ??F (36.5 ??C) (Oral) Wt 95.7 kg (211 lb) SpO2 97% BMI 31.16 kg/m?? Body mass index is 31.16 kg/m??. GENERAL: healthy, alert and no distress ASSESSMENT/PLAN: 1. Essential hypertension Home blood pressures are low around 105/mid 60s. This is on the same cuff that was previously reading in the 140-150 systolic. Recommend decreasing hydrochlorothiazide to 12.5 mg daily. As long as he is over 110/60 and not having symptoms of hypotension we will continue current medication. If continues to be low then consider stop HCTZ. Recheck BMP today. Continue to work on having a good diet and regular activity. - Basic metabolic panel - hydrochlorothiazide (HYDRODIURIL) 12.5 MG tablet; Take 1 tablet (12.5 mg) by mouth daily Dispense:30 tablet; Refill: 0 The information in this document, created by the medical customer service representative for me, accurately reflects the services I personally performed and the decisions made by me. I have reviewed and approved this document for accuracy prior to leaving the patient care area. May 13, 2018 3:07 PM Raghavendra Deras MD [facility] Camilo Julio MA - 05/13/2018 2:40 PM CDT Screening Questionnaire for Adult Immunization Are you sick today? No Do you have allergies to medications, food, a vaccine component or latex? No Have you ever had a serious reaction after receiving a vaccination? No Do you have a long-term health problem with heart disease, lung disease, asthma, kidney disease, metabolic disease (e.g. diabetes), anemia, or other blood disorder? No Do you have cancer, leukemia, HIV/AIDS, or any other immune system problem? No In the past 3 months, have you taken medications that affect your immune system, such as prednisone,other steroids, or anticancer drugs; drugs for the treatment of rheumatoid arthritis, Crohn???s disease, or psoriasis; or have you had radiation treatments? No Have you had a seizure, or a brain or other nervous system problem? No During the past year, have you received a transfusion of blood or blood products, or been given immune (gamma) globulin or antiviral drug? No For women: Are you or is there a chance you could become during the next month? No Have you received any vaccinations in the past 4 weeks? No Immunization questionnaire answers were all negative. Per orders of Dr. Deras, injection of Shingrix given by Camilo Julio. Patient instructed to remain in clinic for 15 minutes afterwards, and to report any adverse reaction to me immediately. Screening performed by Camilo Julio on 05/13/2018 at 3:26 PM. documented in this encounter Plan of Treatment Not on filedocumented as of this encounter Procedures Procedure Name Priority Date/Time Associated Diagnosis Comme nts BASIC METABOLIC Routine 05/13/2018 3:32 PM Essential Result s for this PANEL CDT hypertension procedure are i n the results section. documented in this encounter Results Basic metabolic panel (05/13/2018 3:32 PM CDT) athologist Signature Sodium 140 133 - 144 05/14/2018 [place] mmol/L 1:[address] [facility] Potassium 4.2 3.4 - 5.3 05/14/2018 [place] mmol/L 1:[address] [facility] Chloride 107 94 - 109 05/14/2018 [place] mmol/L 1:[address] [facility] Carbon Dioxide 28 20 - 32 05/14/2018 [place] mmol/L 1:20 PM T [facility] Anion Gap 5 3 - 14 05/14/2018 [place] mmol/L 1:20 PM T [facility] Glucose 90 70 - 99 05/14/2018 [place] mg/dL 1:20 PM T [facility] Urea Nitrogen 19 7 - 30 05/14/2018 [place] mg/dL 1:20 PM [facility] Creatinine 1.12 0.66 - 05/14/2018 [place] 1.25 mg/dL 1:20 PM [facility] GFR Estimate 65 >60 05/14/2018 [place] mL/min/{1. 1:20 PM T [facility] 73_m2} HOSPITAL Comment: Non GFR Calc Starting 01/22/2018, serum creatinine ba sed estimated GFR (eGFR) will be calculated using the Chronic Kidney Dise [facility] Epidemiology Collaboration (CKD-EPI) equation. GFR Estimate If 75 >60 mL/min/{1.73_m2} 05/14/2018 1: 20 PM [facility] Comment: GFR Calc Starting 01/22/2018, serum creatinine ba sed estimated GFR (eGFR) will be calculated using the Chronic Kidney Dise [facility] Epidemiology Collaboration (CKD-EPI) equation. Calcium 9.2 8.5 - 10.1 mg/dL 05/14/2018 1:20 PM [facility] Specimen Anatomical Collection Method Collection Time Receive d Time (Source) Location / / Volume Laterality Blood specimen 05/13/2018 3:32 PM 019 3:33 (specimen) CDT PM CDT Raghavendra Deras MD LAB - BLOOD ORDERABLES Performing Organization Address City/State/ZIP Code Phon e Number M [facility] [address] [place] [phone] [facility] [address] [place], [place] [address] [facility] [address] [address], [facility] [phone] documented in this encounter Visit Diagnoses Diagnosis Essential hypertension - Primary Unspecified essential hypertension documented in this encounter Care Teams Director Business Development Relationship Specialty Start Date End Date Raghavendra Deras MD PCP - General Family Practice 10/07/13 Raghavendra Deras MD Assigned PCP 01/23/16 05/14/21 documented as of this encounter
--- OUTSIDE RECORDS SUMMARY | 2021-11-07 15:40 | XMS_ITS | Encounter Summary ---
:1945 Author Organization [place] Address [facility] 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
--- OUTSIDE RECORDS SUMMARY | 2021-11-07 15:40 | XMS_ITS | Encounter Summary ---
:1945 Author Organization [place] Address [address] [facility] 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
--- OUTSIDE RECORDS SUMMARY | 2021-11-07 15:40 | XMS_ITS | Encounter Summary ---
:1945 Author Organization [place] Address [address] [facility] [place] [address] Care Team Providers Name Role Phone Raghavendra Deras MD Primary Care Provider Unavailable Raghavendra Deras MD Unavailable Unavailable Reason for Visit Reason Comments Urgent Care Arm Injury Was climbing a tree, slid do wn, scraped up right forearm x 1hr. 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 Urgent Care ??? Arm Injury Was climbing a tree, slid down, scraped up right forearm x 1hr. Terry Montero is a 73 year old male who presents to the clinic with an abrasion on the right forearm sustained 1 hour(s) ago. This is a non-work related and accidental injury. Mechanism of injury: he was trimming a tree and slid with his arm wrapped around the trunk, causing abrasion to the arm- He put the injured arm in cool water, then came to . Associated symptoms: Denies loss of consciousness, vomiting or confusion. Denies numbness, weakness, or loss of function Last tetanus booster within 10 years: no Takes Losartan 50 mg, hydrochlorothiazide 12.5 mg, and doxazosin 4 mg for blood pressure has had occasional episodes of elevated BP, Has BP cuff at home Past Medical History: Diagnosis Date ??? Acute duodenal ulcer with hemorrhage, without mention of obstruction 1997 ??? Arthritis ??? BPH (benign prostatic hyperplasia) ??? Essential hypertension, benign 12/30/2002 ? ? Hyperlipidemia LDL goal < 130 04/15/2014 ? ? Hypertension goal BP (blood pressure) < 140/90 06/24/2010 ??? Pulmonary nodule CT reassuring 2008 ??? SCC (squamous cell carcinoma), face 03/16/2008 Patient Active Problem List Diagnosis ??? Actinic keratosis ??? Allergic rhinitis ??? Esophageal reflux ??? SCC (squamous cell carcinoma), face ??? History of peptic ulcer disease ??? Essential hypertension ??? Advanced directives, counseling/discussion ??? Adenomatous polyp of colon ??? Benign prostatic hyperplasia with lower urinary tract symptoms ? ? Hyperlipidemia LDL goal <130 ALLERGIES: Mometasone furoate monohydrate and Quinazolines Current Outpatient Medications on File Prior to Visit: doxazosin (CARDURA) 4 MG tablet Take 1 tablet (4 mg) by mouth At Bedtime fish oil-omega-3 fatty acids 1000 MG capsule Take 2 capsules (2 g) by mouth daily PT IS NOW TAKING 1TAB PER DAY hydrochlorothiazide (HYDRODIURIL) 12.5 MG tablet Take 1 tablet (12.5 mg) by mouth daily losartan (COZAAR) 50 MG tablet Take 1 tablet (50 mg) by mouth daily Multiple Vitamins-Minerals (CENTRUM SILVER ULTRA MENS PO) Take 1 tablet by mouth daily omeprazole (PRILOSEC) [address] capsule Take 1 capsule (40 mg) by mouth daily simvastatin (ZOCOR) 20 MG tablet Take 1 tablet (20 mg) by mouth At Bedtime No current facility-administered medications on file prior to visit. Social History Tobacco Use ??? Smoking status: Former Smoker Packs/day: 0.50 Years: 20.00 Pack years: 10.00 Types: Cigarettes Last attempt to quit: 02/06/1984 Years since quittin.6 ??? Smokeless tobacco: Never Used Substance Use [...] Cancer Other Cousin ROS: CONSTITUTIONAL:NEGATIVE for fever, chills EYES: NEGATIVE for vision changes or irritation ENT/MOUTH: NEGATIVE for ear, mouth and throat problems RESP:NEGATIVE for significant cough or SOB EXAM: VITALS: BP (!) 140/82 (BP Location: Left arm, Patient Position: Sitting, Cuff Size: Adult Large) Pulse 74 Temp 98.4 ??F (36.9 ??C) (Tympanic) Resp 16 Ht 1.753 m (5' 9) Wt 94.3 kg (208 lb) SpO2 96% BMI 30.72 kg/m?? Site of wound: right forearm Size of abrasion 10 centimeters x 20 cm with linear shallow cuts Depth of laceration 2 millimeters Characteristics of the laceration: clean and superficial, no active bleeding Tendon function intact: yes Sensation to light touch intact: yes Pulses intact: yes No pain with palpation or ROM of bones of the right forearm, upper arm, wrist, hands EYES: EOMI, conjunctiva clear HENT: External ears with no swelling or lesions Nose and lips without Swelling, ulcers, erythema or lesions NECK: normal pain free ROM RESP: no labored respirations, no tachypnea EXTREMITIES: Full ROM without expression of pain or limitation x 4 extremities NEURO: Normal strength and tone, ambulation without difficulty, normal speech and mentation PSYCH: mentation and affect appears normal and patient appearance--appropriately groomed Assessment: Abrasion of right forearm, initial encounter - cephALEXin (KEFLEX) 500 MG capsule; Take 1 capsule (500 mg) by mouth 3 times daily for 10 days- Will only start antibiotic if signs of purulent drainage or spreading erythema Tdap given today Symptomatic pain relief with acetaminophen and/ or ibuprofen Patient was advised to monitor for signs of redness, swelling, streaking and start the antibiotic RXif the wound appears to be worsening Keep wound clean and dry for the next 24-48 hours Signs of infection discussed today Essential hypertension Blood pressure taken today was elevated. Patient should continue hypertension medications at current dose and schedule. Frequent home/ store blood pressure checks are encouraged at different times of day. Patient should keep a diary of blood pressure levels and share that information with the primary care provider. documented in this encounter Nursing Notes Asif Yancey CMA - 09/04/2018 8:45 PM CDT Cleansed wound w/chlorhexadine and water, applied thin layer of bacitracin, telfa to cover the woundand guaze wrap around. ptw Asif Yancey CMA documented in this encounter Plan of Treatment Not on filedocumented as of this encounter Visit Diagnoses Diagnosis Abrasion of right forearm, initial encou nter - Primary Essential hypertension Unspecified essential hypertension documented in this encounter Care Teams Shanker Out Relationship Specialty Start Date End Date Raghavendra Deras MD PCP - General Family Practice 10/07/13 Raghavendra Deras MD Assigned PCP 01/23/16 05/14/21 documented as of this encounter
--- OUTSIDE RECORDS SUMMARY | 2021-11-07 15:40 | XMS_ITS | Encounter Summary ---
:1945 Author Organization [place] Address [address] [facility] 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
--- OUTSIDE RECORDS SUMMARY | 2021-11-07 15:40 | XMS_ITS | Clinical Summary ---
:1945 Author Organization [place] Address [facility] [place] [address] Care Team Providers Name Role Phone Raghavendra Deras MD Primary Care Provider Unavailable Allergies [...] be differe nt from the original. [email or web address] Problem Noted Date Hyperlipidemia LDL goal <130 01/12/2016 Benign prostatic hyperplasia with lower urinary tract symptoms 10/01/2014 Advanced directives, counseling/discussion 07/08/2010 Overview: Formatting of this note is dif ferent from the original. Advance Directive Problem List Overview: Name Relationship Phone Primary Health Care Agent Karen Ferro iejayson [phone] Alternative Health Care Agent Discussed advance care planning with rafal suarez; information given to patient to review. 07/08/2010 07/18/10 Left message for patient to call back to arrange facilitation if desired for completion of Advanced Care Directive. Rosibel Steele LPN/Advanced Healthcare Planning Utility Worker Advance Care Planning 01/12/2016: ACP Rev iew [...] 80's Diabetes Maternal Grandmother C.A.D. 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) [address] [phone] [address] (Work) [phone] Greta Neumann Personal/Family Self 1945 [facility]-[phone]) [place] [id number] Greta Neumann Medicare Self 1945 [facility]-[phone] ([address]) [place] [phone] Advance Directives For more information, please contact: [phone] Latest Code Status on File Code Status Date Activated Date Inactivated Comments Full Code 01/10/2013 6:23 AM 01/10/2013 10:37 PM Care Teams Customs Verifier Relationship Specialty Start Date End Date Raghavendra Deras MD PCP - General Family Practice 10/07/13
--- OUTSIDE RECORDS SUMMARY | 2021-11-07 15:40 | XMS_ITS | Encounter Summary ---
:[address] Address [address] [facility] [place] [address] Care Team Providers Name Role Phone Raghavendra Deras MD Primary Care Provider Unavailable Raghavendra Deras MD Unavailable Unavailable Reason for Visit Auth/Cert Specialty Diagnoses / Procedures Referred By Contact Refer red To Contact Gastroenterology Diagnoses PERSONAL HISTORY OF POLYPS Sh Endoscopy Procedures COLONOSCOPY [address] [place] [phone] Phone: Referral ID Status Reason Start Date Expiration Date Visits Requ ested Visits Authorized [id number] 1 1 Encounter Details Date Type Department Care Team Description 08/05/2018 Hospital Encounter [facility] Gerry Fajardo MD 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 C.A.D. Maternal Uncle [place] ??? Cancer - colorectal Maternal Uncle ??? [...] Arthur Fajardo August 05, 2018 Colorectal Surgery [phone] (office) [phone] (pager) [email or web address] documented in this encounter Plan [...] Component Value Ref Test Analysis Performed At [facility] Shipping Easy Range Method Time Signature Copath Report Patient Name: LO NEUMANN MR#: [id number] Specimen #: [id number] Collected: 08/05/2018 Received: 08/05/2018 Reported: 08/06/2018 15:02 [...] of this testing was completed at the [facility], with the professional compo nent performed at the [facility], [address] [place] [address] ??[phone] ([phone]) CPT Codes: A: 68061-XP6 B: 98842-NN6 COLLECTION SITE: Client: [facility] Location: [place]O (S) Specimen (Source) Anatomical Collection [...] Component Value Ref Test Analysis Performed At [facility] Method Time Signature COLONOSCOPY [facility] RADIOLOGY [facility] Endoscopy Department RESULTS Patient Name: Lo Neumann ?Procedure Date: 08/05 11:51 AM ? Accou nt Number: [id number] Date of : 1945 ?Admit Type: Out patient Age: 73 ? Room: 1 ? Note Status: Finalized ?Attending MD: Arthur Fajardo MD Total Sedation Time: ?I nstrument Name: Nathaniel -[id number] AdultColonoscope Procedure: ?Colonoscopy Indications: ?High ri sk [...] Procedure Code(s): ? --- Professional --- ? 95695, Colonoscopy, flexible; with removal of tumor (s), polyp(s), or ? other lesion(s) by snare technique Diagnosis Code(s): ? --- Professional --- ? K57.30, Diverticulosi s of large intestine without perforation or abscess ? without bleeding ? D12.8, Benign neoplasm of rectum ? D12.2, Benign neoplasm of ascending colon ? Z86.010, Personal history of colonic polyps CPT copyright 2017 [employer]. All rights reserved. The codes documented in this report are prelimin sanaz and upon sedimentationist review may be revised to meet current compliance requirements. Arthur Fajardo MD 08/05/2018 12:14:14 PM I was physically present for the entire viewing portion of t he exam. Arthur Fajardo MD Number of Addenda: 0 Note Initiated On: 08/05/2018 11:51 AM MRN: ?[id number] Procedure Date: ? 08/05/2018 11:51:36 AM Scope [...] EVERY 4 HOURS PRN, itching, Starting on Sun08/05/18 at 1246, Post-procedure diphenhydrAMINE (BENADRYL) injection [...] 1157 (Given - Provider: Alana Jose RN) PRN, Administer over 3-5 Minutes, Starti ng on Sun08/05/18 at 1157, Intra-procedure flumazenil (ROMAZICON) injection 0.2 mg 0.2 [...] to any local anesthetic or any anupam p roduct. Apply at least 30 minutes prior to [...] dose 1 mL subcutaneous OR intradermal in div ided doses as needed for VAD insertion., Pre-procedure May continue current IV fluid if patient has IV fluids infusing until discharge. CONTINUOUS PRN, Starting Sun08/05/18 at 1 246, Until Sun08/05/18 at 1447, Post-procedure midazolam (VERSED) injection 115 7 (Given - Provider: Alana Jose, RN)1159 (Given - Provider: Alana Jose, RN) Administer over 2 Minutes, PRN, Starting on Sun08/05/18 at 1157, Intra-procedure naloxone (NARCAN) injection 0.1-0.4 mg 0.1-0.4 mg, [...] vom iting, Administer over 2-5 Minutes, Starting on Sun08/05/18 at 1211, For 1 dose, Give in ENDO pre procedure prep area. Irritant. For ordered IV doses 0.1-4 mg, giv e IV Push undiluted over 2-5 minutes., Pre-procedure ondansetron (ZOFRAN) injection 4 mg(Linked Group 2) 4 mg, Intravenous, EVERY 6 HOURS PRN, na usea, vomiting, Administer over 2-5 Minutes, Starting on Sun08/05/18 at 1246, This is Step 1 of nausea and vomiting management. If nausea not resolved in 15 minute s, go to Step 2 prochlorperazine (COMPAZ INE). Irritant. For ordered IV doses 0.1-4 mg, give IV Push undiluted over 2-5 minutes., Post-procedure ondansetron (ZOFRAN-ODT) ODT tab 4 mg(Linked Group 2) 4 mg, Oral, EVERY 6 HOURS PRN, nausea, v omiting, Starting on Sun08/05/18 at 1246, This is Step 1 of nausea and vomiting management. If nausea not resolved in 15 minutes, go to Step 2 prochlorperazine (CO MPAZINE). Do not push through foil backi ng. Peel back foil and gently remove. Place [...] usea, vomiting, Administer over 1-2 Minutes, Starting on Sun08/05/18 at 1246, This is Step 2 of nausea and vomiting management. If nausea not resolved in 15 minute s, give metoclopramide (REGLAN) if order ed (step 3 of nausea and vomiting management) [...] in 15 minutes, give metoclopramide (REGLAN) if o rdered (step 3 of nausea and vomiting management), Post-procedur e simethicone 133mg/2mL oral suspension 1202 (Given - Provider: Arthur Fajardo MD - Comment: in scope) PRN, Starting on Sun08/05/18 at 1202, Intra-procedure [...] PRN, i tching, Starting on Sun08/05/18 at 1246
Use only if patient cannot take oral. For ordered IV doses 1-50 mg, give IV Push undiluted. Give each 25m g over a minimum of 1 minute. Extend in non-emergency
Post-procedure Or diphenhydrAMINE (BENADRYL) capsule 25 mgJump to med 25 mg, Oral, EVERY 4 HOURS PRN, itching, Starting on Sun08/05/18 at 1246, Post-procedure Group 2: ondansetron (ZOFRAN-ODT) ODT tab 4 mgJump to med 4 mg, Oral, EVERY 6 HOURS PRN, nausea, v omiting, Starting on Sun08/05/18 at 1246
This is Step 1 of nausea and vomiting management. If nausea not resolved in 15 minutes, go to Step 2 prochlorperazine (COMPAZINE). Do not push through foil backing. Peel back foil and gently remove. Place on tongue immediately. Administration with liquid unnecessary With dry hands, peel back foil backing and gently remove tab let; do not push oral disintegrating tablet through foil backing; administer immediately on tongue and oral disintegrating tablet dissolves in seconds; then swall ow with saliva; liquid not required.
Post-procedure Or ondansetron (ZOFRAN) injection 4 mgJump to med 4 mg, Intravenous, EVERY 6 HOURS PRN, na usea, vomiting, Administer over 2-5 Minutes, Starting on Sun08/05/18 at 1246
This is Step 1 of nausea and vomiting management. If nause a not resolved in 15 minutes, go to Step 2 prochlorperazine (COMPAZINE). Irritant. For ordered IV doses 0.1-4 mg, give IV Push undiluted over 2-5 minutes.
Post-procedure Group 3: prochlorperazine (COMPAZINE) injection 5 mgJump to med 5 mg, Intravenous, EVERY 6 HOURS PRN, na usea, vomiting, Administer over 1-2 Minutes, Starting on Sun08/05/18 at 1246
This is Step 2 of nausea and vomiting management. If nausea not res olved in 15 minutes, give metoclopramide (REGLAN) if ordered (step 3 of nausea and vomiting management) For ordered IV doses 0.1-10 mg, give IV Push undiluted. Each 5mg over 1 minute.
Post-procedure Or prochlorperazine (COMPAZINE) tablet 5 mgJump to med 5 mg, Oral, EVERY 6 HOURS PRN, nausea, v omiting, Starting on Sun08/05/18 at 1246
This is Step 2 of nausea and vomiting management. If nausea not resolved in 15 minutes, give metoclopra mide (REGLAN) if ordered (step 3 of naus ea and vomiting management)
Post-procedure documented in this encounter Care Teams Anesthesiologist Relationship Specialty Start Date End Date Raghavendra Deras MD PCP - General Family Practice 10/07/13 Raghavendra Deras MD Assigned PCP 01/23/16 05/14/21 documented as of this encounter
--- OUTSIDE RECORDS SUMMARY | 2021-11-07 15:40 | XMS_ITS | Encounter Summary ---
:1945 Author Organization [place] Address [address] [facility] [place] [address] Care Team Providers Name Role Phone Raghavendra Deras MD Primary Care Provider Unavailable Raghavendra Deras MD Unavailable Unavailable Reason for Visit Auth/Cert Specialty Diagnoses / Procedures Referred By Contact Refer red To Contact Gastroenterology Diagnoses PERSONAL HISTORY OF POLYPS Endoscopy Procedures COLONOSCOPY [address] [place] [phone] Phone: Referral ID Status Reason Start Date Expiration Date Visits Requ ested Visits Authorized [id number] 1 1 Encounter Details Date Type Department Care Team Description 08/05/2018 Surgery [facility] Arthur Fajardo MD COLONOSCOPY, FLEXIBLE, [facility] Endoscopy COLON RECTAL SURG WITH LESION REMOVAL [address] [place] [phone] [address] [phone] [address] [place] [phone] (Wo rk) Surgery Details Date/Time Status Location OR Service Patient Class Case Case Trauma Class Type Case? 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 C.A.D. Maternal Uncle [place] ??? Cancer - colorectal Maternal Uncle ??? [...] Arthur Fajardo August 05, 2018 Colorectal Surgery [phone] (office) [phone] (pager) [email or web address] documented in this encounter Plan [...] Component Value Ref Test Analysis Performed At [facility] Range Method Time Signature Copath Report Patient Name: LO NEUMANN MR#: [id number] Specimen #: [id number] Collected: 08/05/2018 Received: 08/05/2018 Reported: 08/06/2018 15:02 [...] of this testing was completed at the [facility], with the professional compo nent performed at the [facility], [address] [place] [address] ??[phone] ([phone]) CPT Codes: A: 30032-TC1 B: 36584-VP5 COLLECTION SITE: Client: [facility] Location: [place] (S) Specimen (Source) Anatomical Collection [...] Component Value Ref Test Analysis Performed At [facility] Range Method Time Signature COLONOSCOPY [facility] RADIOLOGY [facility] Endoscopy Department RESULTS Patient Name: Lo Neumann ?Procedure Date: 08/05 11:51 AM ? Accou nt Number: [id number] Date of : 1945 ?Admit Type: Out patient Age: 73 ? Room: 1 ? Note Status: Finalized ?Attending MD: Arthur Fajardo MD Total Sedation Time: ?I nstrument Name: 321 [id number] AdultColonoscope Procedure: ?Colonoscopy Indications: ?High ri sk [...] Procedure Code(s): ? --- Professional --- ? 05898, Colonoscopy, flexible; with removal of tumor (s), polyp(s), or ? other lesion(s) by snare technique Diagnosis Code(s): ? --- Professional --- ? K57.30, Diverticulosi s of large intestine without perforation or abscess ? without bleeding ? D12.8, Benign neoplasm of rectum ? D12.2, Benign neoplasm of ascending colon ? Z86.010, Personal history of colonic polyps CPT copyright 2017 [employer]. All rights reserved. The codes documented in this report are prelimin sanaz and upon hot metal crane operator review may be revised to meet current compliance requirements. Arthur Fajardo MD 08/05/2018 12:14:14 PM I was physically present for the entire viewing portion of t he exam. Arthur Fajardo MD Number of Addenda: 0 Note Initiated On: 08/05/2018 11:51 AM MRN: ?[id number] Procedure Date: ? 08/05/2018 11:51:36 AM Scope Withdrawal Time: 0 hours 8 minutes 2 seconds Total Procedure Duration: 0 hours 9 minutes 58 seconds Estimated Blood Loss: ? Scope In: 11:58:46 AM Scope Out: 12:08:44 PM Specimen (Source) Anatomical Collection Method Collection Time Re ceived Time Location / / Volume Laterality 08/05/2018 11:51 AM CDT Rgahavendra Deras MD PROCEDURES Performing Organization Address City/State/ZIP [...] 115 7 (Given - Provider: Alana Jose, ALVERTO)1159 (Given - Provider: Alana Jose RN) Administer [...]
Post-procedure documented in this encounter Care Teams Wood Scrap Handler Relationship Specialty Start Date End Date Raghavendra Deras MD PCP - General Family Practice 10/07/13 Raghavendra Deras MD Assigned PCP 01/23/16 05/14/21 documented as of this encounter
--- OUTSIDE RECORDS SUMMARY | 2021-11-07 15:40 | XMS_ITS | Encounter Summary ---
:1945 Author Organization [place] Address [address] [facility]. 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 He did express understanding. Fatemeh Carbajal RN -- [facility] ITAL TELEVISION RENTAL CLERK Telephone Encounter - Raghavendra Deras MD - 04/08/2018 2:47 PM CST BP better, continue current meds back on hydrochlorothiazide. ITAL TELEVISION RENTAL CLERK Telephone Encounter - Raudel Garcia CMA - 04/05/2018 3:49 PM CST Vital Signs 03/29/2018 03/29/2018 03/29/2018 04/02/2018 04/02/2018 Systolic 165 179 177 162 168 Diastolic 94 111 96 82 88 Pulse 69 71 70 92 Temperature 98.6 Respirations 17 16 18 Weight (LB) 213 lb Height 5' 9 BMI (Calculated) 31.52 Pain O2 95 97 95 96 Vital Signs 04/05/2018 Systolic 132 Diastolic 84 Pulse 80 Temperature Respirations Weight (LB) Height BMI (Calculated) Pain O2 Pt sat for 15 minutes on 04/05/2018 and was much better, I told him he would call you if Dr Deras has any questions. He does have an appt on 04/15/2018.Raudel Garcia CMA ITAL TELEVISION RENTAL CLERK documented in this encounter Plan of Treatment Not on filedocumented as of this encounter Visit Diagnoses Not on filedocumented in this encounter Care Teams Drugless Doctor Relationship Specialty Start Date End Date Raghavendra Deras MD PCP - General Family Practice 10/07/13 Raghavendra Deras MD PCP - Assigned PCP 01/23/16 04/09/18 Raghavendra Deras MD Assigned PCP 01/23/16 05/14/21 documented as of this encounter
--- OUTSIDE RECORDS SUMMARY | 2021-11-07 15:40 | XMS_ITS | Encounter Summary ---
:1945 Author Organization [place] Address [facility] 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 C.A.D. Maternal Uncle [place] ??? Cancer - colorectal Maternal Uncle ??? [...] his behalf by Radha Mobley, a trained infertility medical assistant. The creation of this document is based on the provider's statements to the infertility medical assistant. Radha Mobley 10:17 AM April 15, 2018 [...] information in this document, created by the infertility medical assistant for me, accurately reflects the services I personally performed and the decisions made by me. I have reviewed and approved this document for accuracy prior to leaving the patient care area. April 15, 2018 10:30 AM Raghavendra Deras MD [facility] documented in this encounter Plan of Treatment Not on filedocumented as of this encounter Visit Diagnoses Diagnosis Essential hypertension Unspecified essential hypertension documented in this encounter Care Teams Tool Technician Relationship Specialty Start Date End Date Raghavendra Deras MD PCP - General Family Practice 10/07/13 Raghavendra Deras MD Assigned PCP 01/23/16 05/14/21 documented as of this encounter
--- OUTSIDE RECORDS SUMMARY | 2021-11-07 15:40 | XMS_ITS | Encounter Summary ---
:1945 Author Organization [place] Address [facility] 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
--- OUTSIDE RECORDS SUMMARY | 2021-11-07 15:40 | XMS_ITS | Encounter Summary ---
:1945 Author Organization [place] Address [facility] 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
--- OUTSIDE RECORDS SUMMARY | 2021-11-07 15:40 | XMS_ITS | Encounter Summary ---
:1945 Author Organization [place] Address [address] [place] [address]. 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 Data Unavailable O TECHNICIAN documented in this encounter Plan of Treatment Not on filedocumented as of this encounter Visit Diagnoses Diagnosis BP check - Primary Screening for hypertension documented in this encounter Care Teams Silverware Washer Relationship Specialty Start Date End Date Raghavendra Deras MD PCP - General Family Practice 10/07/13 Raghavendra Deras MD Assigned PCP 01/23/16 05/14/21 documented as of this encounter
--- OUTSIDE RECORDS SUMMARY | 2021-11-07 15:40 | XMS_ITS | Encounter Summary ---
:1945 Author Organization [place] Address [facility] 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 Myriam Barrett RN, BSN TING EQUIPMENT OPERATOR documented in this encounter Plan of Treatment Not on filedocumented as of this encounter Visit Diagnoses Diagnosis Hyperlipidemia LDL goal <130 Other and unspecified hyperlipidemia documented in this encounter Care Teams Child Care Associate Relationship Specialty Start Date End Date Raghavendra Deras MD PCP - General Family Practice 10/07/13 Raghavendra Deras MD Assigned PCP 01/23/16 05/14/21 documented as of this encounter
--- OUTSIDE RECORDS SUMMARY | 2021-11-07 15:40 | XMS_ITS | Encounter Summary ---
:1945 Author Organization [place] Address [address] [facility] 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 We just got our shipment in and would like to know if they would like to come in now to get it. 1st shot was done 05/13 so he can come in anytime. Ariella Davidson Rig Site Engineer documented in this encounter Plan of Treatment Not on filedocumented as of this encounter Visit Diagnoses Not on filedocumented in this encounter Care Teams Chief Deputy Sheriff Relationship Specialty Start Date End Date Raghavendra Deras MD PCP - General Family Practice 10/07/13 Raghavendra Deras MD Assigned PCP 01/23/16 05/14/21 documented as of this encounter
--- OUTSIDE RECORDS SUMMARY | 2021-11-07 15:40 | XMS_ITS | Encounter Summary ---
:1945 Author Organization [place] Address [address] [facility] 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
--- OUTSIDE RECORDS SUMMARY | 2021-11-07 15:40 | XMS_ITS | Encounter Summary ---
:1945 Author Organization [facility] Address [address] [facility] 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
--- OUTSIDE RECORDS SUMMARY | 2021-11-07 15:41 | XMS_ITS | Encounter Summary ---
:1945 Author Organization [place] Address [address] [facility] [place] [address] Care Team Providers Name Role Phone Raghavendra Deras MD Primary Care Provider Unavailable Raghavendra Deras MD Unavailable Unavailable Raghavendra Deras MD Unavailable Unavailable Reason for Visit Reason Comments Hypertension Encounter Details Date Type Department Care Team Description 03/29/2018 Emergency [facility] Mary Weber MD Hypertension, unspecified type; [facility] Emergency Dep t EMERGENCY PHYSICIANS Atypical chest pain [address] [place], [place] [address] [facility] [id number] [place], [place] [id number] (Wo rk) Social History Tobacco Use Types [...] at Date Recorded Male 01/15/2018 11:39 PM SECURITIES ADVISER documented as of this encounter Last Filed Vital Signs Vital Sign Reading Time Taken Comments Blood Pressure 177/96 03/29/2018 4:15 PM SECURITIES ADVISER Pulse 70 03/29/2018 4:15 PM SECURITIES ADVISER Temperature 37.1 ??C (98.8 ??F) 03/29/2018 2:45 PM SECURITIES ADVISER Respiratory Rate 16 03/29/2018 4:15 PM SECURITIES ADVISER Oxygen Saturation 95% 03/29/2018 4:15 PM SECURITIES ADVISER Inhaled Oxygen Concentration - - Weight - [...] if there is anything that worries you. RITIES ADVISER documented in this encounter Medications at Time [...] hyperplasia with Bedtime nocturia fluticasone (FLONASE) 50 [place] 1-2 sprays 1 Bottle 3 01/1108/05/2018 MCG/ACT [...] 03/29/2018 2:57 PM CST Pt to radiology RITIES ADVISER Nunu French RN - 03/29/2018 1:36 PM CST Was seen 2 days ago and diagnosed with bronchiolitis. Pain in right upper chest today for about 20 seconds. Pain free now. Cough has improved since. Patient has been taking BP at home and having high readings. RITIES ADVISER Ebony Armstrong PA - 03/29/2018 1:19 PM [...] HTN Time: 1345 Vent. Rate 73 bpm. HI interval 138. QRS duration 96. QT/QTc 394/434. [...] be present. Ebony Armstrong PA 03/30/18 1329 RITIES ADVISER Mary Weber MD - 03/29/2018 1:19 PM [...] chest pain R07.89 Mary Weber MD 04/01/182033 RITIES ADVISER documented in this encounter Plan of Treatment Not on filedocumented as of this encounter Procedures Procedure Name Priority Date/Time Associated Comments Diagnosis XR CHEST 2 VIEWS STAT 03/29/2018 2:57 PM Resul ts for this SECURITIES ADVISER procedure are i n the results section. CBC WITH PLATELETS & STAT 03/29/2018 2:40 PM R esults for this DIFFERENTIAL SECURITIES ADVISER procedure are i n the results section. TROPONIN I STAT 03/29/2018 2:40 PM Results f or this SECURITIES ADVISER procedure are i n the results section. LIPASE STAT 03/29/2018 2:40 PM Results f or this SECURITIES ADVISER procedure are i n the results section. COMPREHENSIVE STAT 03/29/2018 2:40 PM Results for this METABOLIC PANEL SECURITIES ADVISER procedure ar e in the results section. EKG 12-LEAD, TRACING STAT 03/29/2018 1:45 PM R esults for this ONLY SECURITIES ADVISER procedure are i n the results section. documented in this encounter Results XR Chest 2 Views (03/29/2018 2:57 PM SECURITIES ADVISER) Anatomical Region Laterality Modality Chest Digital Radiography Specimen (Source) Anatomical Location Collection Method / Collectio n Time Received Time / Laterality Volume Impressions 03/29/2018 2:59 PM SECURITIES ADVISER IMPRESSION: No acute cardiopulmonary abnormality. EDGARDO PRATHER MD Narrative 03/29/2018 2:59 PM SECURITIES ADVISER XR CHEST 2 VW 03/29/2018 2:57 PM [...] ORDER MICHELLE Troponin I (03/29/2018 2:40 PM SECURITIES ADVISER) athologist Signature Troponin I ES <0.015 0.000 - 03/29/2018 [place] 0.045 ug/L 3:16 PM [facility] Comment: The 99th percentile for upper reference range is 0.045 ug/L. ??Troponin values in the range of 0.045 - 0.120 ug/L may b e associated with risks of adverse clinical events. Specimen Anatomical Collection Method Collection Time Receive d Time (Source) Location / / Volume Laterality Blood specimen 03/29/2018 2:40 PM 019 2:47 (specimen) SECURITIES ADVISER PM SECURITIES ADVISER Ebony [facility] - BLOOD ORDERABLES Performing Organization Address City/State/ZIP Code Phon e Number [facility] [address] [address] [facility] [address] [phone] Lipase (03/29/2018 2:40 PM SECURITIES ADVISER) athologist Signature Lipase 192 73 - 393 03/29/2018 [facility] U/L 3:14 PM [facility] Specimen Anatomical Collection Method Collection Time Receive d Time (Source) Location / / Volume Laterality Blood specimen 03/29/2018 2:40 PM 019 2:47 (specimen) SECURITIES ADVISER PM SECURITIES ADVISER Ebony LEMON LAB - BLOOD ORDERABLES Performing Organization Address City/State/ZIP Code Phon e Number [facility] [address] [place], [place] [address] [facility] [address] [place], [place] [address] [place] [address] Comprehensive metabolic panel (03/29/2018 2:40 PM SECURITIES ADVISER) athologist Signature Sodium 140 133 - 144 03/29/2018 [facility] mmol/L 3:06 PM [facility] Potassium 4.0 3.4 - 5.3 03/29/2018 [facility] mmol/L 3:06 PM [facility] Chloride 109 94 - 109 03/29/2018 [facility] mmol/L 3:06 PM [facility] Carbon Dioxide 25 20 - 32 03/29/2018 [place] mmol/L 3:11 PM [facility] Anion Gap 6 3 - 14 03/29/2018 [facility] mmol/L 3:11 PM [facility] Glucose 85 70 - 99 03/29/2018 [place] mg/dL 3:11 PM [facility] Urea Nitrogen 13 7 - 30 03/29/2018 [place] mg/dL 3:11 PM [facility] Creatinine 0.98 0.66 - 03/29/2018 [facility] 1.25 mg/dL 3:11 PM [facility] GFR Estimate 76 >60 03/29/2018 [place] mL/min/{1. 3:11 PM [facility] 73_m2} [facility]OS[facility] Comment: Non GFR Calc Starting 01/22/2018, serum creatinine ba sed estimated GFR (eGFR) will be calculated using the Chronic Kidney Dise [facility] Epidemiology Collaboration (CKD-EPI) equation. GFR Estimate If 88 >60 mL/min/{1.73_m2} 03/29/2018 3: 11 PM [facility] Comment: GFR Calc Starting 01/22/2018, serum creatinine ba sed estimated GFR (eGFR) will be calculated using the Chronic Kidney Dise [facility] Epidemiology Collaboration (CKD-EPI) equation. Calcium 8.6 8.5 - 10.1 mg/dL 03/29/2018 3:11 PM [facility] Bilirubin Total 0.4 0.2 - 1.3 mg/dL 03/29/2018 3:[address] [facility] Albumin 4.0 3.4 - 5.0 g/dL 03/29/2018 3:14 PM [facility] Protein Total 7.8 6.8 - 8.8 g/dL 03/29/2018 3:14 PM [facility] Alkaline Phosphatase 128 40 - 150 U/L 03/29/2018 3:[address] [facility] ALT 39 0 - 70 U/L 03/29/2018 3:14 PM [facility] AST 30 0 - 45 U/L 03/29/2018 3:14 PM [facility] Specimen Anatomical Collection Method Collection Time Receive d Time (Source) Location / / Volume Laterality Blood specimen 03/29/2018 2:40 PM 019 2:47 (specimen) SECURITIES ADVISER PM SECURITIES ADVISER Ebony LEMON LAB - BLOOD ORDERABLES Performing Organization Address City/State/ZIP Code Phon e Number [facility] [address] [address] [facility] [address] [phone] CBC with platelets differential (03/29/2018 2:40 PM SECURITIES ADVISER) [facility] Method Time Signature WBC 4.9 4.0 - 03/29/2018 [facility] 11.0 2:53 PM [facility] 10e9/L [facility] RBC Count 4.63 4.4 - 5.9 03/29/2018 [facility] 10e12/L 2:53 PM [facility] Hemoglobin 13.4 13.3 - 03/29/2018 [facility] 17.7 g/dL 2:53 PM [facility] Hematocrit 40.7 40.0 - 03/29/2018 [facility] 53.0 % 2:53 PM [facility] MCV 88 78 - 100 03/29/2018 [facility] fl 2:53 PM [facility] MCH 28.9 26.5 - 03/29/2018 [facility] 33.0 pg 2:[address] [facility] 32.9 31.5 - 03/29/2018 [facility] 36.5 g/dL 2:53 PM [facility] RDW 13.2 10.0 - 03/29/2018 [facility] 15.0 % 2:53 PM [facility] Platelet Count 168 150 - 450 03/29/2018 [facility] 10e9/L 2:53 PM [facility] Diff Method Automated 03/29/2018 [facility] Method 2:53 PM [facility] % Neutrophils 60.5 % 03/29/2018 [facility] 2:53 PM [facility] % Lymphocytes 31.4 % 03/29/2018 [facility] 2:53 PM [facility] % Monocytes 6.3 % 03/29/2018 [facility] 2:53 PM [facility] % Eosinophils 0.8 % 03/29/2018 [facility] 2:53 PM [facility] % Basophils 0.8 % 03/29/2018 [facility] 2:53 PM [facility] % Immature 0.2 % 03/29/2018 [facility] Granulocytes 2:53 PM [facility] Nucleated RBCs 0 0 /100 03/29/2018 [facility] 2:53 PM [facility] Absolute 3.0 1.6 - 8.3 03/29/2018 [facility] Neutrophil 10e9/L 2:53 PM [facility] Absolute 1.5 0.8 - 5.3 03/29/2018 [facility] Lymphocytes 10e9/L 2:53 PM [facility] Absolute 0.3 0.0 - 1.3 03/29/2018 [facility] Monocytes 10e9/L 2:53 PM [facility] Absolute 0.0 0.0 - 0.7 03/29/2018 [facility] Eosinophils 10e9/L 2:53 PM [facility] Absolute 0.0 0.0 - 0.2 03/29/2018 [facility] Basophils 10e9/L 2:53 PM [facility] Abs Immature 0.0 0 - 0.4 03/29/2018 [facility] Granulocytes 10e9/L 2:53 PM [facility] Absolute 0.0 03/29/2018 [facility] Nucleated RBC 2:53 PM [facility] Specimen Anatomical Collection Method Collection Time Receive d Time (Source) Location / / Volume Laterality Blood specimen 03/29/2018 2:40 PM 019 2:47 (specimen) SECURITIES ADVISER PM SECURITIES ADVISER Ebony LEMON LAB - BLOOD ORDERABLES Performing Organization Address City/State/ZIP Code Phon e Number [facility] [address] [place], [place] [address] [facility] [address] [place], [place] [address] [facility] [phone] EKG 12 lead (03/29/2018 1:45 PM SECURITIES ADVISER) [facility] gist Method Time Signature Interpretation ECG Click View RADIOLOGY Image link RESULTS to view waveform and result Specimen (Source) Anatomical Collection Method Collection Time Re ceived Time Location / / Volume Laterality 03/29/2018 1:45 PM SECURITIES ADVISER Mary Weber MD ECG ORDERABLES Performing Organization Address City/State/ZIP Code Phon e Number RADIOLOGY RESULTS documented in this encounter Visit Diagnoses Diagnosis Hypertension, unspecified type Atypical chest pain Other chest pain documented in this encounter Care Teams Integration Director Relationship Specialty Start Date End Date Raghavendra Deras MD PCP - General Family Practice 10/07/13 Raghavendra Deras MD PCP - Assigned PCP 01/23/16 04/09/18 Raghavendra Deras MD Assigned PCP 01/23/16 05/14/21 documented as of this encounter
--- OUTSIDE RECORDS SUMMARY | 2021-11-07 15:41 | XMS_ITS | Encounter Summary ---
:1945 Author Organization [place] Address [address] [facility] [address] Care Team Providers Name Role Phone Raghavendra Deras MD Primary Care Provider Unavailable Raghavendra Deras MD Unavailable Unavailable Raghavendra Deras MD Unavailable Unavailable Reason for Visit Reason Onset Date Comments Nurse Advice Line 02/08/2017 food poisoning Encounter Details Date Type Department Care Team Description 02/08/2017 Telephone [facility] Raghavendra Deras Nurs e Advice Line (food Clinic [facility] poisoning) [address] [place] [address] Social History Tobacco Use Types [...] at Date Recorded Male 01/15/2018 11:39 PM PHARMACIST TECHNICIAN documented as of this encounter Miscellaneous [...] any time with concerns. Janny Rodriguez, RN MACIST TECHNICIAN Telephone Encounter - Ariella Davidson - 02/08/2017 2:06 PM CST Patient believes he has food poisoning and would like to speak with a nurse. Please call him at [phone]. Ariella Davidson Supervisor Parking Lot MACIST TECHNICIAN documented in this encounter Plan of Treatment Not on filedocumented as of this encounter Visit Diagnoses Not on filedocumented in this encounter Care Teams Brusher Hand Relationship Specialty Start Date End Date Raghavendra Deras MD PCP - General Family Practice 10/07/13 Raghavendra Deras MD PCP - Assigned PCP 01/23/16 04/09/18 Raghavendra Deras MD Assigned PCP 01/23/16 05/14/21 documented as of this encounter
--- OUTSIDE RECORDS SUMMARY | 2021-11-07 15:41 | XMS_ITS | Encounter Summary ---
:1945 Author Organization [facility] Address [address] [facility] [place] [address] Care Team Providers Name Role Phone Raghavendra [...] Department Care Team Description 07/07/2017 Office Visit [facility] Urgent Tyler Calderon, Cough (Primary Dx) Care Candy SALDIVAR [address] [facility] [address] [place] [address] [place], [place] [phone] [id number] Social History Tobacco Use Types Packs/Day Years [...] at Date Recorded Male 01/15/2018 11:39 PM ACID ADJUSTER documented as of this encounter Last Filed [...] Body Mass Index 30.72 02/12/2017 2:48 PM ACID ADJUSTER documented in this encounter Patient Instructions Patient [...] hurt. He is an established patient of [facility]. Review of Systems Past Medical History: Diagnosis [...] History Negative Father ??? C.A.D. Maternal Uncle [place] ??? Cancer - colorectal Maternal Uncle ??? [...] capsule ??? fluticasone (FLONASE) 50 MCG/ACT spray [place] 1-2 sprays into both nostrils daily 1 [...] Primary documented in this encounter Care Teams Cpo Relationship Specialty Start Date End Date Braeden, Raghavendra Ray, MD PCP - General Family Practice 10/07/13 Raghavendra Deras MD PCP - Assigned PCP 01/23/16 04/09/18 Raghavendra Deras MD Assigned PCP 01/23/16 05/14/21 documented as of this encounter
--- OUTSIDE RECORDS SUMMARY | 2021-11-07 15:41 | XMS_ITS | Encounter Summary ---
:1945 Author Organization [place] Address [address] [place] [address] Care Team Providers Name Role Phone Raghavendra Deras MD Primary Care Provider Unavailable Raghavendra Deras MD Unavailable Unavailable Raghavendra Deras MD Unavailable Unavailable Reason for Referral Diagnostic Procedure Outpatient - Closed Specialty Diagnoses / Procedures Referred By Contact Refer red To Contact Diagnoses Colon cancer screening Raghavendra Deras MD [facility] [address] [place] [address] [address] [place] [address] Phone: Fax: Referral ID Status Reason Start Date Expiration Date Visits Requ ested Visits Authorized [id number] Closed 03/19/2018 03/19/2019 1 1 NTAMINATION TECHNICIAN Reason for Visit Reason Comments Wellness Visit Encounter Details Date Type Department Care Team Description 03/19/2018 [facility] eneral medical examination at a health care facility (Primary Dx); Clinic Candy Alan MD History of peptic ulcer dise ase; [id number] [facility] Gastroesophageal reflux dise ase, esophagitis presence not specified; [place], [place] Essential hype rtension; [id number] Hyperlipidemia LDL goal <130 ; [phone] Hypertension go al BP (blood pressure) < [...] at Date Recorded Male 01/15/2018 11:39 PM DECONTAMINATION TECHNICIAN documented as of this encounter Last Filed Vital Signs Vital Sign Reading Time Taken Comments Blood Pressure 132/82 03/19/2018 10:01 AM DECONTAMINATION TECHNICIAN Pulse 95 03/19/2018 10:01 AM DECONTAMINATION TECHNICIAN Temperature 36.7 ??C (98.1 ??F) 03/19/2018 10:01 AM DECONTAMINATION TECHNICIAN Respiratory Rate - - Oxygen Saturation 95% 03/19/2018 10:01 AM DECONTAMINATION TECHNICIAN Inhaled Oxygen Concentration - - Weight 97.5 kg (215 lb) 03/19/2018 10:01 AM DECONTAMINATION TECHNICIAN Height 175.3 cm (5' 9) 03/19/2018 10:01 AM DECONTAMINATION TECHNICIAN Body Mass Index 31.75 03/19/2018 10:01 AM DECONTAMINATION TECHNICIAN documented in this encounter Patient Instructions [...] 03/14/2016 ??? Cholesterol Lab - yearly 01/31/2018 NTAMINATION TECHNICIAN documented in this encounter Progress Notes [...] Licensed by the author for use in [facility]; reprintedwith permission ([email or web address]). All rights reserved. Do you have sleep [...] History Negative Father ??? C.A.D. Maternal Uncle [place] ??? Cancer - colorectal Maternal Uncle ??? [...] behalf by Radha Mobley, a trained medical collections representative. The creation of this document is based on the provider's statements to the medical collections representative. Radha Mobley 10:08 AM March 19, 2018 [...] in this document, created by the medical collections representative for me, accurately reflects the services I personally performed and the decisions made by me. I have reviewed and approved this document for accuracy prior to leaving the patient care area. March 19, 2018 10:41 AM Raghavendra Deras MD [facility] NTAMINATION TECHNICIAN documented in this encounter Plan of Treatment Scheduled Referrals Name Type Priority Associated Diagnoses Order S [facility] GASTROENTEROLOGY ADULT REF Referral Routine Colon cancer O rdered: 03/19/2018 PROCEDURE ONLY [place] screening Back Gray Cloth Washer ; No Provider Preference documented as of this encounter Procedures Procedure Name Priority Date/Time Associated Diagnosis Comme nts MAGNESIUM Routine 03/19/2018 10:43 Gastroesophageal reflux Results for this AM DECONTAMINATION TECHNICIAN disease, esophagitis procedu re are in presence not specified the r esults section. LIPID REFLEX TO Routine 03/19/2018 10:43 Hyperlipidemia LDL go al Results for this DIRECT LDL PANEL AM DECONTAMINATION TECHNICIAN <130 procedure a re in the results section. ALT Routine 03/19/2018 10:43 Hyperlipidemia LDL goal Results for this AM DECONTAMINATION TECHNICIAN <130 procedure are i n the results section. VITAMIN B12 Routine 03/19/2018 10:43 Gastroesophageal reflux Results for this AM DECONTAMINATION TECHNICIAN disease, esophagitis procedu re are in presence not specified the r esults section. BASIC METABOLIC Routine 03/19/2018 10:43 Essential hypertensio n Results for this PANEL AM DECONTAMINATION TECHNICIAN procedure are i n the results section. documented in this encounter Results Magnesium (03/19/2018 10:43 AM DECONTAMINATION TECHNICIAN) athologist Signature Magnesium 2.1 1.6 - 2.3 03/20/2018 [facility] mg/dL 9:57 AM DECONTAMINATION TECHNICIAN [facility] Specimen Anatomical Collection Method Collection Time Receive d Time (Source) Location / / Volume Laterality Blood specimen 03/19/2018 10:43 9 (specimen) AM DECONTAMINATION TECHNICIAN 10:44 AM DECONTAMINATION TECHNICIAN Raghavendra Deras MD LAB - BLOOD ORDERABLES Performing Organization Address City/[facility]/ZIP Code Phon e Number [facility] [address], [place] [address] Vitamin B12 (03/19/2018 10:43 AM DECONTAMINATION TECHNICIAN) athologist Signature Vitamin B12 592 193 - 986 03/19/2018 [facility] pg/mL 6:24 PM [facility] Specimen Anatomical Collection Method Collection Time Receive d Time (Source) Location / / Volume Laterality Blood specimen 03/19/2018 10:43 9 (specimen) AM DECONTAMINATION TECHNICIAN 10:44 AM DECONTAMINATION TECHNICIAN Raghavendra Deras MD LAB - BLOOD ORDERABLES Performing Organization Address City/State/ZIP Code Phon e Number [facility] [address] [place] [address] [facility] ALT (03/19/2018 10:43 AM DECONTAMINATION TECHNICIAN) athologist Signature ALT 41 0 - 70 U/L 03/20/2018 [facility] 9:57 AM [facility] Specimen Anatomical Collection Method Collection Time Receive d Time (Source) Location / / Volume Laterality Blood specimen 03/19/2018 10:43 9 (specimen) AM DECONTAMINATION TECHNICIAN 10:44 AM DECONTAMINATION TECHNICIAN Raghavendra Deras MD LAB - BLOOD ORDERABLES Performing Organization Address City/State/ZIP Code Phon e Number [facility] [address] [place] [address] Basic metabolic panel (03/19/2018 10:43 AM DECONTAMINATION TECHNICIAN) athologist Signature Sodium 140 133 - 144 03/20/2018 [facility] mmol/L 9:46 AM [facility] Potassium 4.0 3.4 - 5.3 03/20/2018 [facility] mmol/L 9:46 AM [facility] Chloride 109 94 - 109 03/20/2018 [facility] mmol/L 9:46 AM [facility] Carbon Dioxide 26 20 - 32 03/20/2018 [facility] mmol/L 9:57 AM [facility] Anion Gap 5 3 - 14 03/20/2018 [facility] mmol/L 9:57 AM [facility] Glucose 97 70 - 99 03/20/2018 [facility] mg/dL 9:57 AM [facility] Urea Nitrogen 12 7 - 30 03/20/2018 [facility] mg/dL 9:57 AM [facility] Creatinine 1.00 0.66 - 03/20/2018 [facility] 1.25 mg/dL 9:57 AM [facility] GFR Estimate 74 >60 03/20/2018 [facility] mL/min/{1. 9:57 AM [facility] 73_m2} [facility] Comment: Non GFR Calc Starting 01/22/2018, serum creatinine ba sed estimated GFR (eGFR) will be calculated using the Chronic Kidney Dise [facility] Epidemiology Collaboration (CKD-EPI) equation. GFR Estimate If 86 >60 mL/min/{1.73_m2} 03/20/2018 9: 57 AM [facility] Black [facility] Comment: GFR Calc Starting 01/22/2018, serum creatinine ba sed estimated GFR (eGFR) will be calculated using the Chronic Kidney Dise [facility] Epidemiology Collaboration (CKD-EPI) equation. Calcium 8.9 8.5 - 10.1 mg/dL 03/20/2018 9:57 AM [facility] Specimen Anatomical Collection Method Collection Time Receive d Time (Source) Location / / Volume Laterality Blood specimen 03/19/2018 10:43 9 (specimen) AM DECONTAMINATION TECHNICIAN 10:44 AM DECONTAMINATION TECHNICIAN Raghavendra Ray Braeden MD LAB - BLOOD ORDERABLES Performing Organization Address City/[facility]/ZIP Code Phon e Number [facility] [address] [place] [id number] Lipid panel reflex to direct LDL Fasting (03/19/2018 10:43 AM DECONTAMINATION TECHNICIAN) [facility] gist Method Time Signature Cholesterol 150 <200 03/20/2018 [facility] mg/dL 9:57 AM DECONTAMINATION TECHNICIAN [facility] Triglycerides 144 <150 03/20/2018 [facility] mg/dL 9:57 AM DECONTAMINATION TECHNICIAN [facility] HDL Cholesterol 47 >39 mg/dL 03/20/2018 [facility] 9:57 AM [facility] LDL Cholesterol 74 <100 03/20/2018 [facility] Calculated mg/dL 9:57 AM [facility] Comment: Desirable: <100 mg/dl Non HDL Cholesterol 103 <130 mg/dL 03/20/2018 9:57 AM DECONTAMINATION TECHNICIAN [facility] Specimen Anatomical Collection Method Collection Time Receive d Time (Source) Location / / Volume Laterality Blood specimen 03/19/2018 10:43 9 (specimen) AM DECONTAMINATION TECHNICIAN 10:44 AM DECONTAMINATION TECHNICIAN Raghavendra Deras MD LAB - BLOOD ORDERABLES Performing Organization Address City/[facility]/ZIP Code Phon e Number [facility] [address] [place] [address] documented in this encounter Visit Diagnoses Diagnosis [...] colon documented in this encounter Care Teams Culinary Arts Teacher Relationship Specialty Start Date End Date Raghavendra Deras MD PCP - General Family Practice 10/07/13 Raghavendra Deras MD PCP - Assigned PCP 01/23/16 04/09/18 Raghavendra Deras MD Assigned PCP 01/23/16 05/14/21 documented as of this encounter
--- OUTSIDE RECORDS SUMMARY | 2021-11-07 15:41 | XMS_ITS | Encounter Summary ---
:1945 Author Organization [place] Address [facility] 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 documented as of this encounter Last Filed Vital Signs Vital Sign Reading Time Taken Comments Blood Pressure 168/88 04/02/2018 11:58 AM ASSISTANT GROCERY STORE MANAGER Pulse 92 04/02/2018 11:03 AM ASSISTANT GROCERY STORE MANAGER Temperature 37 ??C (98.6 ??F) 04/02/2018 11:03 AM ASSISTANT GROCERY STORE MANAGER Respiratory Rate 18 04/02/2018 11:03 AM ASSISTANT GROCERY STORE MANAGER Oxygen Saturation 96% 04/02/2018 11:03 AM ASSISTANT GROCERY STORE MANAGER Inhaled Oxygen Concentration - - Weight 96.6 kg (213 lb) 04/02/2018 11:03 AM ASSISTANT GROCERY STORE MANAGER Height 175.3 cm (5' 9) 04/02/2018 11:03 AM ASSISTANT GROCERY STORE MANAGER Body Mass Index 31.45 04/02/2018 11:03 AM ASSISTANT GROCERY STORE MANAGER documented in this encounter Progress Notes Raghavendra [...] behalf by Radha Mobley, a trained medical record coder. The creation of this document is based on the provider's statements to the medical record coder. Radha Mobley 11:51 AM April 02, 2018 [...] in this document, created by the medical record coder for me, accurately reflects the services I personally performed and the decisions made by me. I have reviewed and approved this document for accuracy prior to leaving the patient care area. April 02, 2018 12:05 PM Raghavendra Deras MD [facility] STANT GROCERY STORE MANAGER documented in this encounter Plan of Treatment Not on filedocumented as of this encounter Visit Diagnoses Diagnosis Essential hypertension - Primary Unspecified essential hypertension documented in this encounter Care Teams Blade Groover Relationship Specialty Start Date End Date Raghavendra Deras MD PCP - General Family Practice 10/07/13 Raghavendra Deras MD PCP - Assigned PCP 01/23/16 04/09/18 Raghavendra Deras MD Assigned PCP 01/23/16 05/14/21 documented as of this encounter
--- OUTSIDE RECORDS SUMMARY | 2021-11-07 15:41 | XMS_ITS | Encounter Summary ---
:1945 Author Organization [place] Address [facility] [place] [place] [address] Care Team Providers Name Role Phone Raghavendra Deras MD Primary Care Provider Unavailable Raghavendra Deras MD Unavailable Unavailable Raghavendra Deras MD Unavailable Unavailable Reason for Visit Reason Comments Allied Health Visit Nurse only BP check Encounter Details Date Type Department Care Team Description 03/28/2018 Allied Health/Nurse Health [place] All ied Health Visit Visit Clinic [place] (Nurse only BP check ) [address] [place] [address] Social History Tobacco Use Types [...] at Date Recorded Male 01/15/2018 11:39 PM RANGE MANAGER documented as of this encounter Last Filed Vital Signs Vital Sign Reading Time Taken Comments Blood Pressure 160/90 03/28/2018 1:59 PM RANGE MANAGER Pulse - - Temperature - - Respiratory [...] check next week. Myriam Barrett RN, BSN E MANAGER documented in this encounter Plan of Treatment Not on filedocumented as of this encounter Visit Diagnoses Diagnosis BP check - Primary Screening for hypertension documented in this encounter Care Teams Last Model Department Supervisor Relationship Specialty Start Date End Date Raghavendra Deras MD PCP - General Family Practice 10/07/13 Raghavendra Deras MD PCP - Assigned PCP 01/23/16 04/09/18 Raghavendra Deras MD Assigned PCP 01/23/16 05/14/21 documented as of this encounter
--- OUTSIDE RECORDS SUMMARY | 2021-11-07 15:41 | XMS_ITS | Encounter Summary ---
:1945 Author Organization [place] Address [facility] [place] [address] Care Team Providers Name Role Phone Raghavendra Deras MD Primary Care Provider Unavailable Raghavendra Deras MD Unavailable Unavailable Raghavendra Deras MD Unavailable Unavailable Reason for Visit Reason Onset Date Comments Refill Request 02/07/2018 Doxazosin Encounter Details Date Type Department Care Team Description 02/07/2018 [facility] Raghavendra Deras Ra, Refill Request Candy SALDIVAR (Doxazosin) [address] [place] [address] Social History Tobacco Use [...] at Date Recorded Male 01/15/2018 11:39 PM EXCELLENCE MANAGER documented as of this encounter Miscellaneous Notes Telephone Encounter - Page, Janny Grande RN - 02/09/2018 10:53 AM CST meds were sent incorrectly - Needs 90 day to mail order and 15 days of the doxazosin to [facility] [place] Prescription approved per [facility] Refill Protocol. For corrected amounts Janny Rodriguez, RN LLENCE MANAGER Telephone Encounter - Ariella Davidson - 02/08/2018 11:34 AM CST Managed Objects message was sent to patient on 02/07/18. Ariella Davidson Parts Sales Counterperson LLENCE MANAGER Telephone Encounter - Myriam Barrett RN - 02/07/2018 2:59 PM CST Pt due for a wellness visit and labs. Please advise on how to proceed with request for mail order and local pharmacy Pt was seen for an acute issue only Myriam Barrett RN, BSN LLENCE MANAGER Telephone Encounter - Mag Garcia - 02/07/2018 [...] also need 1 week prescription sent to [facility] [place] as mail order wont arrivebefore he runs [...] is 18 years of age or older LLENCE MANAGER Addendum Note - Janny Rodriguez RN - 02/07/2018 11:11 AM EXCELLENCE MANAGER Addended by: JANNY RODRIGUEZ on: 02/09/2018 10:57 AM Modules accepted: Orders LLENCE MANAGER documented in this encounter Plan of Treatment Not on filedocumented as of this encounter Visit Diagnoses Diagnosis Hypertension goal BP (blood pressure) < 140/90 Unspecified essential hypertension documented in this encounter Care Teams Upholstery Repairer Relationship Specialty Start Date End Date Raghavendra Deras MD PCP - General Family Practice 10/07/13 Raghavendra Deras MD PCP - Assigned PCP 01/23/16 04/09/18 Raghavendra Deras MD Assigned PCP 01/23/16 05/14/21 documented as of this encounter
--- OUTSIDE RECORDS SUMMARY | 2021-11-07 15:41 | XMS_ITS | Encounter Summary ---
:1945 Author Organization [place] Address [facility] [place] [address] Care Team Providers Name Role Phone Raghavendra Deras MD Primary Care Provider Unavailable Raghavendra Deras MD Unavailable Unavailable Raghavendra Deras MD Unavailable Unavailable Reason for Visit Reason Comments ER F/U Encounter Details Date Type Department Care Team Description 02/12/2017 Office Visit [facility] Raghavendra Deras Abdominal pain, Clinic Candy Alan MD generalized (Primary [id number] [facility] Dx) [place] [address] Social History Tobacco Use Types [...] at Date Recorded Male 01/15/2018 11:39 PM PROCESS TREATER documented as of this encounter Last Filed Vital Signs Vital Sign Reading Time Taken Comments Blood Pressure 136/82 02/12/2017 2:48 PM PROCESS TREATER Pulse 74 02/12/2017 2:48 PM PROCESS TREATER Temperature 37 ??C (98.6 ??F) 02/12/2017 2:48 PM PROCESS TREATER Respiratory Rate - - Oxygen Saturation - - Inhaled Oxygen Concentration - - Weight 93.4 kg (206 lb) 02/12/2017 2:48 PM PROCESS TREATER Height 175.3 cm (5' 9) 02/12/2017 2:48 PM PROCESS TREATER Body Mass Index 30.42 02/12/2017 2:48 PM PROCESS TREATER documented in this encounter Progress Notes Raghavendra [...] behalf by Radha Mobley, a trained medical assisting program director. The creation of this document is based on the provider's statements to the medical assisting program director. Radha Mobley 3:11 PM February 12, 2017 [...] in this document, created by the medical assisting program director for me, accurately reflects the services I personally performed and the decisions made by me. I have reviewed and approved this document for accuracy prior to leaving the patient care area. February 12, 2017 3:35 PM Raghavendra Deras MD [facility] ESS TREATER documented in this encounter Nursing Notes Fatemeh [...] Maintenance addressed: NONE n/a Fatemeh Camacho CMA ESS TREATER documented in this encounter Plan of Treatment Not on filedocumented as of this encounter Visit Diagnoses Diagnosis Abdominal pain, generalized - Primary documented in this encounter Care Teams Document Reviewer Relationship Specialty Start Date End Date Raghavendra Deras MD PCP - General Family Practice 10/07/13 Raghavendra Deras MD PCP - Assigned PCP 01/23/16 04/09/18 Raghavendra Deras MD Assigned PCP 01/23/16 05/14/21 documented as of this encounter
--- OUTSIDE RECORDS SUMMARY | 2021-11-07 15:41 | XMS_ITS | Encounter Summary ---
:1945 Author Organization [place] Address [facility] [place] [address] Care Team Providers Name Role Phone Raghavendra Deras MD Primary Care Provider Unavailable Raghavendra Deras MD Unavailable Unavailable Raghavendra Deras MD Unavailable Unavailable Reason for Visit Reason Onset Date Comments Refill Request 02/07/2018 losartan (COZAAR) 25 MG tablet Encounter Details Date Type Department Care Team Description 02/07/2018 Refill [facility] Raghavendra Deras Ra, Refill Request (losartan Candy SALDIVAR (COZAAR) 25 MG tablet) [address] [place] [address] Social History Tobacco Use [...] at Date Recorded Male 01/15/2018 11:39 PM LAY OUT MACHINE OPERATOR documented as of this encounter Miscellaneous Notes Telephone Encounter - Ariella Davidson - 02/08/2018 11:33 AM CST [employer] message was sent to patient 02/07. Ariella Davidson Drug Abuse Counselor OUT MACHINE OPERATOR Telephone Encounter - Myriam Barrett RN - 02/07/2018 7:32 AM CST Routing refill request to provider for review/approval because: Labs not current: CR (thi was last ordered by a different provider) Myriam Barrett RN, BSN OUT MACHINE OPERATOR Telephone Encounter - Wade Wiggins - 02/07/2018 [...] 02/09/17 0917 POTASSIUM 3.5 Wade Wiggins XRT OUT MACHINE OPERATOR documented in this encounter Plan of Treatment Not on filedocumented as of this encounter Visit Diagnoses Diagnosis Hypertension goal BP (blood pressure) < 140/90 Unspecified essential hypertension documented in this encounter Care Teams Aeronautical Engineering Technologist Relationship Specialty Start Date End Date Raghavendra Deras MD PCP - General Family Practice 10/07/13 Raghavendra Deras MD PCP - Assigned PCP 01/23/16 04/09/18 Raghavendra Deras MD Assigned PCP 01/23/16 05/14/21 documented as of this encounter
--- OUTSIDE RECORDS SUMMARY | 2021-11-07 15:41 | XMS_ITS | Encounter Summary ---
:1945 Author Organization [place] Address [facility] [place] [address] Care Team Providers Name Role Phone Raghavendra Deras MD Primary Care Provider Unavailable Raghavendra Deras MD Unavailable Unavailable Raghavendra Deras MD Unavailable Unavailable Reason for Visit Reason Comments Medication Refill omeprazole (PRILOSEC) 40 MG capsule Encounter Details Date Type Department Care Team Description 02/07/2018 Refill [facility] Raghavendra Deras Ra, Medication Refill Candy SALDIVAR (omeprazole (PRILOSEC) [address] [facility] 40 MG capsule ) [place] [address] Social History Tobacco Use [...] at Date Recorded Male 01/15/2018 11:39 PM BLUEPRINT READER documented as of this encounter Miscellaneous Notes Telephone Encounter - Leah Banks, DRIER AND PULVERIZER TENDER - 02/07/2018 3:50 PM CST Requested Prescriptions [...] - Patient is age 18 or older PRINT READER documented in this encounter Plan of Treatment Not on filedocumented as of this encounter Visit Diagnoses Diagnosis History of peptic ulcer disease Personal history of peptic ulcer disease documented in this encounter Care Teams Classification Counselor Relationship Specialty Start Date End Date Raghavendra Deras MD PCP - General Family Practice 10/07/13 Raghavendra Deras MD PCP - Assigned PCP 01/23/16 04/09/18 Raghavendra Deras MD Assigned PCP 01/23/16 05/14/21 documented as of this encounter
--- OUTSIDE RECORDS SUMMARY | 2021-11-07 15:41 | XMS_ITS | Encounter Summary ---
:1945 Author Organization [place] Address [facility] [place] [address] Care Team Providers Name Role Phone Raghavendra [...] at Date Recorded Male 01/15/2018 11:39 PM MANGLE ROLL OPERATOR documented as of this encounter Plan of Treatment Not on filedocumented as of this encounter Visit Diagnoses Not on filedocumented in this encounter Care Teams Pea Viner Mechanic Relationship Specialty Start Date End Date Raghavendra Deras MD PCP - General Family Practice 10/07/13 Raghavendra Deras MD PCP - Assigned PCP 01/23/16 04/09/18 Raghavendra Deras MD Assigned PCP 01/23/16 05/14/21 documented as of this encounter
--- OUTSIDE RECORDS SUMMARY | 2021-11-07 15:41 | XMS_ITS | Encounter Summary ---
:1945 Author Organization [place] Address [facility] [place] [address] Care Team Providers Name Role Phone Raghavendra [...] Date Recorded Male 01/15/2018 11:39 PM FICTION WRITER documented as of this encounter Plan of Treatment Not on filedocumented as of this encounter Visit Diagnoses Not on filedocumented in this encounter Care Teams Prosthodontist Relationship Specialty Start Date End Date Raghavendra Deras MD PCP - General Family Practice 10/07/13 Raghavendra Deras MD PCP - Assigned PCP 01/23/16 04/09/18 Raghavendra Deras MD Assigned PCP 01/23/16 05/14/21 documented as of this encounter
--- OUTSIDE RECORDS SUMMARY | 2021-11-07 15:41 | XMS_ITS | Encounter Summary ---
:1945 Author Organization [place] Address [facility] [place] [address] Care Team Providers Name Role Phone Raghavendra [...] at Date Recorded Male 01/15/2018 11:39 PM LOG ROLLER documented as of this encounter Plan of Treatment Not on filedocumented as of this encounter Visit Diagnoses Not on filedocumented in this encounter Care Teams Arboriculture Teacher Relationship Specialty Start Date End Date Raghavendra Deras MD PCP - General Family Practice 10/07/13 Raghavendra Deras MD PCP - Assigned PCP 01/23/16 04/09/18 Raghavendra Deras MD Assigned PCP 01/23/16 05/14/21 documented as of this encounter
--- OUTSIDE RECORDS SUMMARY | 2021-11-07 15:41 | XMS_ITS | Encounter Summary ---
:1945 Author Organization [place] Address [address] [facility] [place] [address] Care Team Providers Name Role Phone Raghavendra Deras MD Primary Care Provider Unavailable Raghavendra Deras MD Unavailable Unavailable Raghavendra Deras MD Unavailable Unavailable Reason for Visit Reason Onset Date Comments Nurse Advice Line 03/29/2018 BP Encounter Details Date Type Department Care Team Description 03/29/2018 Telephone [facility] Raghavendra Deras Nurs e Advice Line (BP) Clinic [facility] [address] [place] [address] Social History Tobacco Use [...] at Date Recorded Male 01/15/2018 11:39 PM FOSTER PARENT documented as of this encounter Miscellaneous Notes [...] time with concerns. Myriam Barrett RN, BSN ER PARENT Telephone Encounter - Barbie Amaro - 03/29/2018 11:28 AM CST BP was high during his visit earlier in the week. Checked from home and his BP is still high and would like to talk to a nurse. Barbie Amaro FWF - TC/FD 03/29/2018 11:29 AM ER PARENT documented in this encounter Plan of Treatment Not on filedocumented as of this encounter Visit Diagnoses Not on filedocumented in this encounter Care Teams Dry Paste Supervisor Relationship Specialty Start Date End Date Raghavendra Deras MD PCP - General Family Practice 10/07/13 Raghavendra Deras MD PCP - Assigned PCP 01/23/16 04/09/18 Raghavendra Deras MD Assigned PCP 01/23/16 05/14/21 documented as of this encounter
--- OUTSIDE RECORDS SUMMARY | 2021-11-07 15:41 | XMS_ITS | Encounter Summary ---
:1945 Author Organization [place] Address [facility] [place] [address] Care Team Providers Name Role Phone Raghavendra [...] at Date Recorded Male 01/15/2018 11:39 PM FLIGHT COMMUNICATIONS OFFICER documented as of this encounter Plan of Treatment Not on filedocumented as of this encounter Visit Diagnoses Not on filedocumented in this encounter Care Teams Insurance Billing Clerk Relationship Specialty Start Date End Date Raghavendra Deras MD PCP - General Family Practice 10/07/13 Raghavendra Deras MD PCP - Assigned PCP 01/23/16 04/09/18 Raghavendra Deras MD Assigned PCP 01/23/16 05/14/21 documented as of this encounter
--- OUTSIDE RECORDS SUMMARY | 2021-11-07 15:41 | XMS_ITS | Encounter Summary ---
:1945 Author Organization [place] Address [facility] [address] Care Team Providers Name Role Phone Raghavendra Deras MD Primary Care Provider Unavailable Raghavendra Deras MD Unavailable Unavailable Raghavendra Deras MD Unavailable Unavailable Encounter Details Date Type Department Care Team Description 04/02/2018 Travel Social History Tobacco Use Types Packs/Day [...] at Date Recorded Male 01/15/2018 11:39 PM COLD ROLL INSPECTOR documented as of this encounter Plan of Treatment Not on filedocumented as of this encounter Visit Diagnoses Not on filedocumented in this encounter Care Teams Demand Equipment Repairer Relationship Specialty Start Date End Date Raghavendra Deras MD PCP - General Family Practice 10/07/13 Raghavendra Deras MD PCP - Assigned PCP 01/23/16 04/09/18 Raghavendra Deras MD Assigned PCP 01/23/16 05/14/21 documented as of this encounter
--- OUTSIDE RECORDS SUMMARY | 2021-11-07 15:41 | XMS_ITS | Encounter Summary ---
:1945 Author Organization [place] Address [facility] [place] [address] Care Team Providers Name Role Phone Raghavendra Deras MD Primary Care Provider Unavailable Raghavendra Deras MD Unavailable Unavailable Raghavendra Deras MD Unavailable Unavailable Reason for Visit Diagnostic Imaging XR - Closed Specialty Diagnoses / Procedures Referred By Contact Refer red To Contact Diagnoses Cough Raghavendra Deras MD Procedures XR Chest 2 Views [address] [place] [address] Referral ID Status Reason Start Date Expiration Date Visits Requ ested Visits Authorized [id number] Closed 03/27/2018 03/27/2019 1 1 Encounter Details Date Type Department Care Team Description 03/27/2018 Ancillary Procedure [facility] Raghavendra Deras Ra y, [facility] [address] [place] [phone] Social History Tobacco Use Types Packs/Day Years [...] Date Recorded Male 01/15/2018 11:39 PM SENIOR NURSE MANAGER documented as of this encounter Plan of Treatment Not on filedocumented as of this encounter Procedures Procedure Name Priority Date/Time Associated Diagnosis Comme nts XR CHEST 2 VIEWS Routine 03/27/2018 2:27 PM Cough Resul ts for this SENIOR NURSE MANAGER procedure are i n the results section. documented in this encounter Results XR Chest 2 Views (03/27/2018 2:27 PM SENIOR NURSE MANAGER) Anatomical Region Laterality Modality Chest Computed Radiography Specimen (Source) Anatomical Location Collection Method / Collectio n Time Received Time / Laterality Volume Impressions 03/27/2018 2:35 PM SENIOR NURSE MANAGER IMPRESSION: Negative. VAHE GILLIAM MD Narrative 03/27/2018 2:35 PM SENIOR NURSE MANAGER XR CHEST 2 VW 03/27/2018 2:34 PM [...] on filedocumented in this encounter Care Teams Policeman Relationship Specialty Start Date End Date Raghavendra Deras MD PCP - General Family Practice 10/07/13 Raghavendra Deras MD PCP - Assigned PCP 01/23/16 04/09/18 Raghavendra Deras MD Assigned PCP 01/23/16 05/14/21 documented as of this encounter
--- OUTSIDE RECORDS SUMMARY | 2021-11-07 15:41 | XMS_ITS | Encounter Summary ---
:1945 Author Organization [place] Address [address] [facility] [place] [address] Care Team Providers Name Role Phone Raghavendra Deras MD Primary Care Provider Unavailable Raghavendra Deras MD Unavailable Unavailable Raghavendra Deras MD Unavailable Unavailable Encounter Details Date Type Department Care Team Description 01/24/2018 Therapy Visit [facility] Naya Faust Bila teral low back Rehabilitation Services PT pain without [place] [address] sciatica (Primary [address] Dx) [place] [address] [id number] Social History Tobacco Use Types Packs/Day Years [...] at Date Recorded Male 01/15/2018 11:39 PM ONCOLOGY ACCOUNT SPECIALIST documented as of this encounter Plan of Treatment Not on filedocumented as of this encounter Procedures Procedure Name Priority Date/Time Associated Diagnosis Comme nts ZZC NEUROMUSCULAR Routine 01/24/2018 1:58 PM Bilateral low jaciel k RE-EDUCATION ONCOLOGY ACCOUNT SPECIALIST pain without sciatica ZZC THERAPEUTIC EXERCISES Routine 01/24/2018 1:58 PM Bilateral low back ONCOLOGY ACCOUNT SPECIALIST pain without sciatica documented in this encounter Visit Diagnoses Diagnosis Bilateral low back pain without sciatica - Primary documented in this encounter Care Teams School Bus Driver/Teacher Assistant Relationship Specialty Start Date End Date Raghavendra Deras MD PCP - General Family Practice 10/07/13 Raghavendra Deras MD PCP - Assigned PCP 01/23/16 04/09/18 Raghavendra Deras MD Assigned PCP 01/23/16 05/14/21 documented as of this encounter
--- OUTSIDE RECORDS SUMMARY | 2021-11-07 15:41 | XMS_ITS | Encounter Summary ---
:1945 Author Organization [place] Address [facility] [place] [address] Care Team Providers Name Role Phone Raghavendra Deras MD Primary Care Provider Unavailable Raghavendra Deras MD Unavailable Unavailable Raghavendra Deras MD Unavailable Unavailable Reason for Visit Reason Onset Date Comments Nurse Advice Line 02/09/2017 Encounter Details Date Type Department Care Team Description 02/09/2017 Telephone [facility] Raghavendra Deras Ra, MD Nurse Advice Line [address] [phone] Social History Tobacco Use [...] at Date Recorded Male 01/15/2018 11:39 PM REGIONAL WILDLIFE AGENT documented as of this encounter Miscellaneous Notes [...] time with concerns. Myriam Barrett RN, BSN ONAL WILDLIFE AGENT documented in this encounter Plan of Treatment Not on filedocumented as of this encounter Visit Diagnoses Not on filedocumented in this encounter Care Teams Manager Of Tires Sales Relationship Specialty Start Date End Date Raghavendra Deras MD PCP - General Family Practice 10/07/13 Raghavendra Deras MD PCP - Assigned PCP 01/23/16 04/09/18 Raghavendra Deras MD Assigned PCP 01/23/16 05/14/21 documented as of this encounter
--- OUTSIDE RECORDS SUMMARY | 2021-11-07 15:41 | XMS_ITS | Encounter Summary ---
:1945 Author Organization [place] Address [address] [facility] [place] [address] Care Team Providers Name Role Phone Raghavendra Deras MD Primary Care Provider Unavailable Raghavendra Deras MD Unavailable Unavailable Raghavendra Deras MD Unavailable Unavailable Reason for Visit SOTO Physical Therapy - Closed Specialty Diagnoses / Procedures Referred By Contact Refer red To Contact Diagnoses Midline low back pain without sciatica, [place] [address] [place] [address] Referral ID Status Reason Start Date Expiration Date Visits Requ ested Visits Authorized [id number] Closed 01/09/2018 01/09/2019 1 1 Encounter Details Date Type Department Care Team Description 01/16/2018 Therapy Visit [facility] Raghavendra Deras MD Bilateral low back pain without sciatica (Primary Dx); Rehabilitation Services Naya Faust, PT [address] [place] [address] Midline low back pain without sciatica, unspecified chronicity [address] [address] Social History Tobacco Use Types [...] at Date Recorded Male 01/15/2018 11:39 PM TAR MAN documented as of this encounter Progress Notes Naya Faust, PT - 01/16/2018 10:50 AM CST [facility] Initial Evaluation Subjective: The [...] Rotation: Left: 60% pain Right: 80% Side [place]: Left: Right: Strength: lumbar=4/5; core strength=4+/5 Lumbar [...] Sheet for this information) Short term and MCC goals: (See Goal Flow Sheet for this [...] and time spent performing 1:1 timed codes. MAN Pily Bell - 01/16/2018 10:50 AM CST [facility] Initial Evaluation Subjective: Pertinent medical history includes: High blood pressure and osteoarthritis. Current medications: High blood pressure medication. Current occupation is retired. Primary job tasks include: Lifting and prolonged sitting (computer work, carrying, pushing, pullling). Objective: System Physical Exam General ROS Assessment/Plan: MAN documented in this encounter Plan of Treatment Not on filedocumented as of this encounter Procedures Procedure Name Priority Date/Time Associated Diagnosis Comme [facility] NEUROMUSCULAR Routine 01/16/2018 12:31 PM Midline low back pain RE-EDUCATION TAR MAN without sciatica, unspecified chronicity [facility] THERAPEUTIC EXERCISES Routine 01/16/2018 12:31 PM Midline low back pain TAR MAN without sciatica, unspecified chronicity documented in this encounter Visit Diagnoses Diagnosis Midline low back pain without sciatica, unspecified chronicity documented in this encounter Care Teams Polymer Materials Consultant Relationship Specialty Start Date End Date Raghavendra Deras MD PCP - General Family Practice 10/07/13 Raghavendra Deras MD PCP - Assigned PCP 01/23/16 04/09/18 Raghavendra Deras MD Assigned PCP 01/23/16 05/14/21 documented as of this encounter
--- OUTSIDE RECORDS SUMMARY | 2021-11-07 15:41 | XMS_ITS | Encounter Summary ---
:1945 Author Organization [place] Address [facility] [address] Care Team Providers Name Role Phone Raghavendra Deras MD Primary Care Provider Unavailable Raghavendra Deras MD Unavailable Unavailable Raghavendra Deras MD Unavailable Unavailable Reason for Visit Reason Comments Allied Health Visit BP check Encounter Details Date Type Department Care Team Description 02/02/2017 Allied Health/Nurse Health [place] All ied Health Visit (BP Visit Clinic [facility]) [address] [place] [address] Social History Tobacco Use Types [...] at Date Recorded Male 01/15/2018 11:39 PM NEWS PRODUCTION ASSISTANT documented as of this encounter Nursing Notes Phoenix Dubois, COMMERCIAL LITIGATION ASSOCIATE - 02/02/2017 4:00 PM CST BP Readings from Last 3 Encounters: 01/31/17 148/90 11/01/16 120/72 05/22/16 120/70 Pt in today for nurse only BP check. Pulse today 83. meds reviewed. Pt states feeling good. Energy level is good. Pt to record home readings over the weekend and come in again early next week for nurseonly check. Pt agreed. Phoenix Dubois CMA PRODUCTION ASSISTANT documented in this encounter Plan of Treatment Not on filedocumented as of this encounter Visit Diagnoses Diagnosis BP check - Primary Screening for hypertension documented in this encounter Care Teams Qa Architect Relationship Specialty Start Date End Date Raghavendra Deras MD PCP - General Family Practice 10/07/13 Raghavendra Deras MD PCP - Assigned PCP 01/23/16 04/09/18 Raghavendra Deras MD Assigned PCP 01/23/16 05/14/21 documented as of this encounter
--- OUTSIDE RECORDS SUMMARY | 2021-11-07 15:41 | XMS_ITS | Encounter Summary ---
:1945 Author Organization [place] Address [facility] [place] [address] Care Team Providers Name Role Phone Raghavendra Deras MD Primary Care Provider Unavailable Raghavendra Deras MD Unavailable Unavailable Raghavendra Deras MD Unavailable Unavailable Reason for Visit Reason Onset Date Comments Flu Shot Imm/Inj 01/01/2018 Flu Shot Encounter Details Date Type Department Care Team Description 01/01/2018 Allied Health/Nurse 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 documented as of this encounter Progress [...] No Form completed by Phoenix Dubois CMA T SERVICES MANAGER documented in this encounter Plan of Treatment Not on filedocumented as of this encounter Visit Diagnoses Diagnosis Need for prophylactic vaccination and in oculation against influenza - Primary documented in this encounter Care Teams Electroencephalographic Technician Relationship Specialty Start Date End Date Raghavendra Deras MD PCP - General Family Practice 10/07/13 Raghavendra Deras MD PCP - Assigned PCP 01/23/16 04/09/18 Raghavendra Deras MD Assigned PCP 01/23/16 05/14/21 documented as of this encounter
--- OUTSIDE RECORDS SUMMARY | 2021-11-07 15:41 | XMS_ITS | Encounter Summary ---
:1945 Author Organization [place] Address [address] [facility] [place] [address] Care Team Providers Name Role Phone Raghavendra Deras MD Primary Care Provider Unavailable Raghavendra Deras MD Unavailable Unavailable Raghavendra Deras MD Unavailable Unavailable Encounter Details Date Type Department Care Team Description 02/07/2018 Therapy Visit [facility] Naya Faust Midl ine low back Rehabilitation Services PT pain without [place] [address] sci[address]a (Primary 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 PREAD CUTTER HAND documented in this encounter Miscellaneous Notes Addendum Note - Naya Faust PT - 02/07/2018 1:00 PM BEDSPREAD CUTTER HAND Addended by: NAYA FAUST on: 03/27/2018 12:04 PM Modules accepted: Orders PREAD CUTTER HAND documented in this encounter Plan of Treatment Not on filedocumented as of this encounter Procedures Procedure Name Priority Date/Time Associated Diagnosis Comme nts ZC MANUAL THER Routine 02/07/2018 3:42 PM Midline low back pa in TECH,1+REGIONS,EA 15 MIN BEDSPREAD CUTTER HAND without sciatica ZZC THERAPEUTIC Routine 02/07/2018 3:42 PM Midline low back pa in EXERCISES BEDSPREAD CUTTER HAND without sciatica documented in this encounter Visit Diagnoses Diagnosis Midline low back pain without sciatica - Primary documented in this encounter Care Teams Underground Mine Superintendent Relationship Specialty Start Date End Date Raghavendra Deras MD PCP - General Family Practice 10/07/13 Raghavendra Deras MD PCP - Assigned PCP 01/23/16 04/09/18 Raghavendra Deras MD Assigned PCP 01/23/16 05/14/21 documented as of this encounter
--- OUTSIDE RECORDS SUMMARY | 2021-11-07 15:41 | XMS_ITS | Encounter Summary ---
:1945 Author Organization [place] Address [facility] [place] [address] Care Team Providers Name Role Phone Raghavendra Deras MD Primary Care Provider Unavailable Raghavendra Deras MD Unavailable Unavailable Raghavendra Deras MD Unavailable Unavailable Reason for Referral Diagnostic Imaging XR - Closed Specialty Diagnoses / Procedures Referred By Contact Refer red To Contact Diagnoses Cough Raghavendra Deras MD Procedures XR Chest 2 Views [address] [place] [address] Referral ID Status Reason Start Date Expiration Date Visits Requ ested Visits Authorized [id number] Closed 03/27/2018 03/27/2019 1 1 CUTTING MACHINE OPERATOR Reason for Visit Reason Comments Fever Encounter Details Date Type Department Care Team Description 03/27/2018 Office Visit [facility] Raghavendra Deras bro nchitis, unspecified organism (Primary Dx); Clinic Candy Alan MD Cough [address] [place] [address] Social History Tobacco Use Types [...] at Date Recorded Male 01/15/2018 11:39 PM 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 CUTTING MACHINE 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 documented as of this encounter Last Filed Vital Signs Vital Sign Reading Time Taken Comments Blood Pressure 144/90 03/27/2018 1:50 PM TAPE CUTTING MACHINE OPERATOR Pulse 99 03/27/2018 1:50 PM TAPE CUTTING MACHINE OPERATOR Temperature 37.4 ??C (99.4 ??F) 03/27/2018 1:50 PM TAPE CUTTING MACHINE OPERATOR Respiratory Rate 19 03/27/2018 1:50 PM TAPE CUTTING MACHINE OPERATOR Oxygen Saturation 96% 03/27/2018 1:50 PM TAPE CUTTING MACHINE OPERATOR Inhaled Oxygen Concentration - - Weight 97.5 kg (215 lb) 03/27/2018 1:50 PM TAPE CUTTING MACHINE OPERATOR Height 175.3 cm (5' 9) 03/27/2018 1:50 PM TAPE CUTTING MACHINE OPERATOR Body Mass Index 31.75 03/27/2018 1:50 PM TAPE CUTTING MACHINE OPERATOR documented in this encounter Patient Instructions Patient [...] be told to take ibuprofen or other otoi-euy-wlkxyob medicines.These help relieve inflammation in your bronchial [...] taking antibiotics Date Last Reviewed: 01/06/2016 ?? [id number] [employer]. [address] [place] [address], [place] [address]. All rights reserved. This information is not intended as a substitute for professional medical care. Always follow your healthcare professional's instructions. CUTTING MACHINE OPERATOR documented in this encounter Progress Notes [...] History Negative Father ??? C.A.D. Maternal Uncle [place] ??? Cancer - colorectal Maternal Uncle ??? [...] behalf by Radha Mobley, a trained medical lab director. The creation of this document is based on the provider's statements to the medical lab director. Radha Mobley 2:00 PM March 27, 2018 [...] in this document, created by the medical lab director for me, accurately reflects the services I personally performed and the decisions made by me. I have reviewed and approved this document for accuracy prior to leaving the patient care area. March 27, 2018 3:07 PM Raghavendra Deras MD [facility] CUTTING MACHINE OPERATOR documented in this encounter Plan of Treatment Not on filedocumented as of this encounter Procedures Procedure Name Priority Date/Time Associated Diagnosis Comme nts XR CHEST 2 VIEWS Routine 03/27/2018 2:27 PM Cough Resul ts for this TAPE CUTTING MACHINE OPERATOR procedure are i n the results section. documented in this encounter Results XR Chest 2 Views (03/27/2018 2:27 PM TAPE CUTTING MACHINE OPERATOR) Anatomical Region Laterality Modality Chest Computed Radiography Specimen (Source) Anatomical Location Collection Method / Collectio n Time Received Time / Laterality Volume Impressions 03/27/2018 2:35 PM TAPE CUTTING MACHINE OPERATOR IMPRESSION: Negative. VAHE GILLIAM MD Narrative 03/27/2018 2:35 PM TAPE CUTTING MACHINE OPERATOR XR CHEST 2 VW 03/27/2018 2:34 PM [...] Cough documented in this encounter Care Teams Health Insurance Sales Agent Relationship Specialty Start Date End Date Raghavendra Deras MD PCP - General Family Practice 10/07/13 Raghavendra Deras MD PCP - Assigned PCP 01/23/16 04/09/18 Raghavendra Deras MD Assigned PCP 01/23/16 05/14/21 documented as of this encounter
--- OUTSIDE RECORDS SUMMARY | 2021-11-07 15:41 | XMS_ITS | Encounter Summary ---
:1945 Author Organization [place] Address [facility] 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 ISH FINISHER Telephone Encounter - Phoenix Dubois CMA - 02/02/2017 4:24 PM CST BP Readings from Last 3 Encounters: 01/31/17 148/90 11/01/16 120/72 05/22/16 120/70 ?? Pt in today for nurse only BP check. Pulse today 83. meds reviewed. Pt states feeling good. Energy level is good. Pt to record home readings over the weekend and come in again early next week for nurseonly check. Pt agreed. ?? Phoenix Dubois CMA ?? ISH FINISHER documented in this encounter Plan of Treatment Not on filedocumented as of this encounter Visit Diagnoses Not on filedocumented in this encounter Care Teams Mobile Sales Consultant Relationship Specialty Start Date End Date Raghavendra Deras MD PCP - General Family Practice 10/07/13 Raghavendra Deras MD PCP - Assigned PCP 01/23/16 04/09/18 Raghavendra Deras MD Assigned PCP 01/23/16 05/14/21 documented as of this encounter
--- OUTSIDE RECORDS SUMMARY | 2021-11-07 15:41 | XMS_ITS | Encounter Summary ---
:1945 Author Organization [place] Address 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
--- OUTSIDE RECORDS SUMMARY | 2021-11-07 15:41 | XMS_ITS | Encounter Summary ---
:1945 Author Organization [place] Address [facility] [place] [address] Care Team Providers Name Role Phone Raghavendra Deras MD Primary Care Provider Unavailable Raghavendra Deras MD Unavailable Unavailable Raghavendra Deras MD Unavailable Unavailable Reason for Visit Diagnostic Imaging XR - Closed Specialty Diagnoses / Procedures Referred By Contact Refer red To Contact Diagnoses Midline low back pain without sciatica, unspecified chronicity Raghavendra Deras MD Procedures XR Lumbar Spine 2/3 Views [address] [place] [address] Referral ID Status Reason Start Date Expiration Date Visits Requ ested Visits Authorized [id number] Closed 01/09/2018 01/09/2019 1 1 Encounter Details Date Type Department Care Team Description 01/09/2018 Radiant Appointment [facility] Raghavendra Deras low back Clinic Candy Alan MD pain without [address] sciatica, [place] unspecified [address] chronicity [phone] Social History Tobacco Use Types Packs/Day Years [...] at Date Recorded Male 01/15/2018 11:39 PM INVENTORY ANALYST documented as of this encounter Plan of Treatment Not on filedocumented as of this encounter Procedures Procedure Name Priority Date/Time Associated Diagnosis Comme nts XR LUMBAR SPINE 2/3 Routine 01/09/2018 11:11 AM Midline low ba ck Results for this VIEWS INVENTORY ANALYST pain without procedure are i n sciatica, the results unspecified section. chronicity documented in this encounter Results XR Lumbar Spine 2/3 Views (01/09/2018 11:11 AM INVENTORY ANALYST) Anatomical Region Laterality Modality Spine, T-spine, L-spine, Abdomen/Pelvis Computed Radiography Specimen (Source) Anatomical Location Collection Method / Collectio n Time Received Time / Laterality Volume Impressions 01/10/2018 7:37 AM INVENTORY ANALYST IMPRESSION: Degenerative change, stable in comparison with 2016. AWAIS PRATHER MD Narrative 01/10/2018 7:37 AM INVENTORY ANALYST XR LUMBAR SPINE 2-3 VIEWS 01/09/2018 11:11 [...] chronicity documented in this encounter Care Teams Field Assessor Relationship Specialty Start Date End Date Raghavendra Deras MD PCP - General Family Practice 10/07/13 Raghavendra Deras MD PCP - Assigned PCP 01/23/16 04/09/18 Raghavendra Deras MD Assigned PCP 01/23/16 05/14/21 documented as of this encounter
--- OUTSIDE RECORDS SUMMARY | 2021-11-07 15:41 | XMS_ITS | Encounter Summary ---
:1945 Author Organization [place] Address [facility] [place] [address] Care Team Providers Name Role Phone Raghavendra Deras MD Primary Care Provider Unavailable Raghavendra Deras MD Unavailable Unavailable Raghavendra Deras MD Unavailable Unavailable Reason for Referral Consultation - Closed Specialty Diagnoses / Procedures Referred By Contact Refer red To Contact Diagnoses Hoarseness of voice Raghavendra Deras MD MULTIPLE LOCATIONS [address] [place] [address] Referral ID Status Reason Start Date Expiration Date Visits Requ ested Visits Authorized [id number] Closed 01/09/2018 01/09/2019 1 1 AM Physical Therapy - Closed Specialty Diagnoses / Procedures Referred By Contact Refer red To Contact Diagnoses Midline low back pain without sciatica, [place] [address] [place] [address] Referral ID Status Reason Start Date Expiration Date Visits Requ ested Visits Authorized [id number] Closed 01/09/2018 01/09/2019 1 1 UCE ASSOCIATE Diagnostic Imaging XR - Closed Specialty Diagnoses / Procedures Referred By Contact Refer red To Contact Diagnoses Midline low back pain without sciatica, unspecified chronicity Raghavendra Deras MD Procedures XR Lumbar Spine 2/3 Views [address] [place] [address] Referral ID Status Reason Start Date Expiration Date Visits Requ ested Visits Authorized [id number] Closed 01/09/2018 01/09/2019 1 1 UCE ASSOCIATE Reason for Visit Reason Comments Pain neck pain is new and back pa in is chronic, have sharp pain, taking Ibuprofen Encounter Details Date Type Department Care Team Description 01/09/2018 Office Visit [facility] Raghavendra Midline l ow back pain without sciatica, unspecified chronicity (Primary Dx); Clinic Candy Alan MD Hoarseness of voice [address] [place] [address] Social History Tobacco Use Types [...] Date Recorded Male 01/15/2018 11:39 PM PRODUCE ASSOCIATE documented as of this encounter Last Filed Vital Signs Vital Sign Reading Time Taken Comments Blood Pressure 124/74 01/09/2018 10:41 AM PRODUCE ASSOCIATE Pulse 69 01/09/2018 10:41 AM PRODUCE ASSOCIATE Temperature 36.6 ??C (97.9 ??F) 01/09/2018 10:41 AM PRODUCE ASSOCIATE Respiratory Rate 16 01/09/2018 10:41 AM PRODUCE ASSOCIATE Oxygen Saturation 96% 01/09/2018 10:41 AM PRODUCE ASSOCIATE Inhaled Oxygen Concentration - - Weight 95.7 kg (211 lb) 01/09/2018 10:41 AM PRODUCE ASSOCIATE Height 175.3 cm (5' 9) 01/09/2018 10:41 AM PRODUCE ASSOCIATE Body Mass Index 31.16 01/09/2018 10:41 AM PRODUCE ASSOCIATE documented in this encounter Progress Notes Raghavendra Deras MD - 01/09/2018 10:40 AM CST SUBJECTIVE: Terry Montero is [...] behalf by Radha Mobley, a trained medical cash poster. The creation of this document is based on the provider's statements to the medical cash poster. Radha Mobley 10:51 AM January 09, 2018 [...] attention to correct posture; stop aggravating activities. [id number] pain medications for short term symptom control [...] in this document, created by the medical cash poster for me, accurately reflects the services I personally performed and the decisions made by me. I have reviewed and approved this document for accuracy prior to leaving the patient care area. January 09, 2018 11:33 AM Raghavendra Deras MD [facility] UCE ASSOCIATE documented in this encounter Plan of [...] Lumbar Spine 2/3 Views (01/09/2018 11:11 AM PRODUCE ASSOCIATE) Anatomical Region Laterality Modality Spine, T-spine, L-spine, Abdomen/Pelvis Computed Radiography Specimen (Source) Anatomical Location Collection Method / Collectio n Time Received Time / Laterality Volume Impressions 01/10/2018 7:37 AM PRODUCE ASSOCIATE IMPRESSION: Degenerative change, stable in comparison with 2016. AWAIS PRATHER MD Narrative 01/10/2018 7:37 AM PRODUCE ASSOCIATE XR LUMBAR SPINE 2-3 VIEWS 01/09/2018 11:11 [...] chronicity documented in this encounter Care Teams Geothermal Installer Relationship Specialty Start Date End Date Raghavendra Deras MD PCP - General Family Practice 10/07/13 Raghavendra Deras MD PCP - Assigned PCP 01/23/16 04/09/18 Raghavendra Deras MD Assigned PCP 01/23/16 05/14/21 documented as of this encounter
--- OUTSIDE RECORDS SUMMARY | 2021-11-07 15:41 | XMS_ITS | Encounter Summary ---
:1945 Author Organization [place] Address [facility] [place] [address] Care Team Providers Name Role Phone Raghavendra Deras MD Primary Care Provider Unavailable Raghavendra Deras MD Unavailable Unavailable Raghavendra Deras MD Unavailable Unavailable Reason for Visit Reason Comments Allied Health Visit BP check Encounter Details Date Type Department Care Team Description 04/05/2018 Allied Health/Nurse Health [place] All ied Health Visit (BP Visit Clinic [place] check) [address] [place] [address] Social History Tobacco Use Types [...] at Date Recorded Male 01/15/2018 11:39 PM SUPPLY CATALOGUER documented as of this encounter Last Filed Vital Signs Vital Sign Reading Time Taken Comments Blood Pressure 132/84 04/05/2018 3:43 PM SUPPLY CATALOGUER Pulse 80 04/05/2018 3:43 PM SUPPLY CATALOGUER Temperature - - Respiratory Rate - - Oxygen Saturation - - Inhaled Oxygen Concentration - - Weight - - Height - - Body Mass Index - - documented in this encounter Plan of Treatment Not on filedocumented as of this encounter Visit Diagnoses Diagnosis BP check - Primary Screening for hypertension documented in this encounter Care Teams Water Control Station Engineer Relationship Specialty Start Date End Date Raghavendra Deras MD PCP - General Family Practice 10/07/13 Raghavendra Deras MD PCP - Assigned PCP 01/23/16 04/09/18 Raghavendra Deras MD Assigned PCP 01/23/16 05/14/21 documented as of this encounter
--- OUTSIDE RECORDS SUMMARY | 2021-11-07 15:41 | XMS_ITS | Encounter Summary ---
:1945 Author Organization [place] Address [address] [facility] [place] [address] Care Team Providers Name Role Phone Raghavendra Deras MD Primary Care Provider Unavailable Raghavendra Deras MD Unavailable Unavailable Raghavendra Deras MD Unavailable Unavailable Reason for Visit Reason Comments Abdominal Pain Nausea, Vomiting, & Diarrhea Encounter Details Date Type Department Care Team Description 02/09/2017 Emergency [facility] Dillan Faulkner V omiting and diarrhea; [facility] Emergency Dep t Abdominal pain, generalized [address] [facility] [place] [address] [address] [facility] [phone] [place], [place] [address] (Wo rk) Social History [...] at Date Recorded Male 01/15/2018 11:39 PM MANAGER 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 documented as of this encounter Last Filed Vital Signs Vital Sign Reading Time Taken Comments Blood Pressure 109/78 02/09/2017 1:51 PM MANAGER CAR Pulse - - Temperature 36.6 ??C (97.9 ??F) 02/09/2017 8:46 AM MANAGER CAR Respiratory Rate 18 02/09/2017 8:46 AM MANAGER CAR Oxygen Saturation 98% 02/09/2017 1:51 PM MANAGER CAR Inhaled Oxygen Concentration - - Weight 90.7 kg (200 lb) 02/09/2017 8:46 AM MANAGER CAR Height 175.3 cm (5' 9) 02/09/2017 8:46 AM MANAGER CAR Body Mass Index 29.53 02/09/2017 8:46 AM MANAGER CAR documented in this encounter Discharge Instructions Discharge InstructionsAniya Caputo PA-C - 02/09/2017 12:50 PM MANAGER CAR *Drink plenty of fluids and advance diet slowly. *Take medications as prescribed. Zofran for nausea. [place] for abdominal pain. Continue your current medications. [...] medication as recommended by your pharmacist. The [place] Pollution Control Agency has additional information on medication disposal: https://www [email or web address]/mtiypxrs-[email or web address]-hmaetpvrwoa. Many prescription pain medications contain Tylenol?? (acetaminophen), including Vicodin??, Tylenol #3??, [place]??, Lortab??, and Percocet??. You should not take [...] can be used to keep you regular. GER CAR documented in this encounter Medications at Time [...] (blood pressure) < 140/90 fluticasone (FLONASE) [address] [place] 1-2 sprays 1 Bottle 3 01/1108/05/2018 MCG/ACT [...] similar symptoms. Pain 10/10. Took Tylenol 500mg [facility]. Aniya Apple PA-C - 02/09/2017 8:38 AM [...] IV 1015 Morphine 4 mg IV 1200 [place] 5-325 mg 2 tablets oral 1205 Zofran [...] ED. Discharged home with short course of [place] for pain and Zofran. Opioid precautions discussed [...] observations and the provider's statements to me. [facility] EMERGENCY DEPARTMENT Aniya Caputo PA-C 02/09/17 1308 GER CAR Associated attestation - Dillan Faulkner MD - 02/09/2017 3:53 PM MANAGER CAR The documentation recorded by the scribe accurately [...] R10.84 Dillan Faulkner MD [facility] Emergency Department documented in this encounter Plan of Treatment Not on filedocumented as of this encounter Procedures Procedure Name Priority Date/Time Associated Comments Diagnosis CT ABDOMEN PELVIS W STAT 02/09/2017 11:29 Resu lts for this CONTRAST AM MANAGER CAR procedure are i n the results section. CBC WITH PLATELETS & STAT 02/09/2017 9:17 AM R esults for this DIFFERENTIAL MANAGER CAR procedure are i n the results section. COMPREHENSIVE STAT 02/09/2017 9:17 AM Results for this METABOLIC PANEL MANAGER CAR procedure ar e in the results section. documented in this encounter Results CT Abdomen Pelvis w Contrast (02/09/2017 11:29 AM MANAGER CAR) Anatomical Region Laterality Modality Abdomen/Pelvis, SUBRAD CT BODY, UMP CT ABDOMEN PELVIS, Computed Tomography RAD CT Specimen (Source) Anatomical Location Collection Method / Collectio n Time Received Time / Laterality Volume Impressions 02/09/2017 11:47 AM MANAGER CAR IMPRESSION: 1. No acute findings in abdomen or pelvi s. 2. Sigmoid diverticulosis without eviden ce of diverticulitis. 3. Mildly enlarged prostate, unchanged. ELLY TRACY DO Narrative 02/09/2017 11:[address] ABDOMEN AND PELVIS WITH CONTRAST ?? [...] (ABNORMAL) Comprehensive metabolic panel (02/09/2017 9:17 AM [facility]) Analysis Performed At Patho logist Time Signature Sodium 139 133 - 144 02/09/2017 [facility] mmol/L 10:03 AM [facility] Potassium 3.5 3.4 - 5.3 02/09/2017 [facility] mmol/L 10:03 AM [facility] Chloride 106 94 - 109 02/09/2017 [facility] mmol/L 10:03 AM [facility] Carbon Dioxide 24 20 - 32 02/09/[facility] mmol/L 10:03 AM [facility] Anion Gap 9 3 - 14 02/09/2017 [place] mmol/L 10:03 AM [facility] Glucose 114 (H) 70 - 99 02/09/2017 [facility] mg/dL 10:03 AM [facility] Urea Nitrogen 31 (H) 7 - 30 02/09/2017 [facility] mg/dL 10:03 AM [facility] Creatinine 1.30 (H) 0.66 - 02/09/2017 [facility] 1.25 mg/dL 10:03 AM [facility] GFR Estimate 54 (L) >60 02/09/2017 [place] mL/min/1.7 10:[address] Comment: Non GFR Calc GFR Estimate If 66 >60 mL/min/1.7m2 02/09/2017 10:[address] [facility] Comment: GFR Calc Calcium 9.0 8.5 - 10.1 mg/dL 02/09/2017 10:03 AM LEANDRA BENAVIDES [facility] Bilirubin Total 1.1 0.2 - 1.3 mg/dL 02/09/2017 10:03 A M [facility] Albumin 4.1 3.4 - 5.0 g/dL 02/09/2017 10:03 AM YULIANA [employer] Protein Total 7.8 6.8 - 8.8 g/dL 02/09/2017 10:03 AM [facility] Alkaline Phosphatase 108 40 - 150 U/L 02/09/2017 10:03 AM [facility] ALT 56 0 - 70 U/L 02/09/2017 10:03 AM [facility] AST 42 0 - 45 U/L 02/09/2017 10:03 AM [facility] Specimen Anatomical Collection Method Collection Time Receive d Time (Source) Location / / Volume Laterality Blood specimen 02/09/2017 9:17 AM 018 9:33 (specimen) MANAGER CAR [facility] Aniya Carrasquillo PA-C LAB - BLOOD ORDERABLES Performing Organization Address City/State/ZIP Code Phon e Number M [place] [address] [address] [place] [address] [facility] [address] [phone] (ABNORMAL) CBC + differential (02/09/2017 9:17 AM [facility]) [facility] gist Method Time Signature WBC 7.1 4.0 - 02/09/2017 [facility] 11.0 9:38 AM [facility] 10e9/L [facility] RBC Count 5.05 4.4 - 5.9 02/09/2017 [facility] 10e12/L 9:38 AM [facility] Hemoglobin 14.9 13.3 - 02/09/2017 [facility] 17.7 g/dL 9:38 AM [facility] Hematocrit 44.1 40.0 - 02/09/2017 [facility] 53.0 % 9:38 AM [facility] MCV 87 78 - 100 02/09/2017 [facility] fl 9:38 AM [facility] MCH 29.5 26.5 - 02/09/2017 [facility] 33.0 pg 9:38 AM [facility] MCHC 33.8 31.5 - 02/09/2017 [facility] 36.5 g/dL 9:38 AM [facility] RDW 13.2 10.0 - 02/09/2017 [facility] 15.0 % 9:38 AM [facility] Platelet Count 164 150 - 450 02/09/2017 [facility] 10e9/L 9:38 AM [facility] Diff Method Automated 02/09/2017 [facility] Method 9:38 AM [facility] % Neutrophils 76.7 % 02/09/2017 [facility] 9:38 AM [facility] % Lymphocytes 9.4 % 02/09/2017 [facility] 9:38 AM [facility] % Monocytes 12.4 % 02/09/2017 [facility] 9:38 AM [facility] % Eosinophils 0.8 % 02/09/2017 [facility] 9:38 AM [facility] % Basophils 0.1 % 02/09/2017 [facility] 9:38 AM [facility] % Immature 0.6 % 02/09/2017 [facility] Granulocytes 9:38 AM [facility] Nucleated RBCs 0 0 /100 02/09/2017 [facility] 9:38 AM [facility] Absolute 5.5 1.6 - 8.3 02/09/2017 [facility] Neutrophil 10e9/L 9:38 AM [facility] Absolute 0.7 (L) 0.8 - 5.3 02/09/2017 [facility] Lymphocytes 10e9/L 9:38 AM [facility] Absolute 0.9 0.0 - 1.3 02/09/2017 [facility] Monocytes 10e9/L 9:38 AM [facility] Absolute 0.1 0.0 - 0.7 02/09/2017 [facility] Eosinophils 10e9/L 9:38 AM [facility] Absolute 0.0 0.0 - 0.2 02/09/2017 [facility] Basophils 10e9/L 9:38 AM [facility] Abs Immature 0.0 0 - 0.4 02/09/2017 [facility] Granulocytes 10e9/L 9:38 AM [facility] Absolute 0.0 02/09/2017 [facility] Nucleated RBC 9:38 AM [facility] Specimen Anatomical Collection Method Collection Time Receive d Time (Source) Location / / Volume Laterality Blood specimen 02/09/2017 9:17 AM 018 9:33 (specimen) MANAGER CAR AM MANAGER CAR Aniya Carrasquillo PA-C LAB - BLOOD ORDERABLES Performing Organization Address City/State/ZIP Code Phon e Number M [facility] [address] [place], [place] [address] [facility] [address] [place], [place] [address] [facility] [phone] documented in this encounter Visit Diagnoses Diagnosis Vomiting and diarrhea Vomiting alone Abdominal pain, generalized documented in this encounter Administered Medications Inactive Administered Medications - up to 3 most recent administrations Medication Order MAR Action Action Date Dose Rate Site 0.9% sodium chloride BOLUS New Bag 02/09/2017 9:24 AM MANAGER CAR 1,000 mLs 999 mL/hr Intravenous, 1,000 mL, ONCE, On Sun02/09/17 at 0917, For 1 dose 0.9% sodium chloride BOLUS New Bag 02/09/2017 11:23 AM MANAGER CAR 65 mLs Intravenous, 1,000 mL, ONCE, On Sun02/09/17 at 1123, For 1 dose HYDROcodone-acetaminophen (NORCO) 5-325 Given 02/09/2017 12: 00 PM MANAGER CAR 2 tablets MG per tablet 2 tablet 2 tablet, Oral, ONCE, On Sun02/09/17 at 1154, For 1 dose, Maximum acetaminophen dose from all sources= 75 mg/kg/day not to exceed 4 grams iopamidol (ISOVUE-370) solution 500 mL Given 02/09/2017 11:23 AM MANAGER CAR 100 mLs 500 mL, Intravenous, ONCE, On Sun02/09/17 at 1123, For 1 dose morphine (PF) injection 4 mg Given 02/09/2017 10:53 AM MANAGER CAR 4 mg 4 mg, Intravenous, EVERY 15 MIN PRN, moderate to severe pain, Starting on Sun02/09/17 at 0931, For 3 doses, For ordered doses up to 15 mg give IV Push undiluted over 4-5 minutes. Given 02/09/2017 10:15 AM MANAGER CAR 4 mg Given 02/09/2017 9:51 AM MANAGER CAR 4 mg ondansetron (ZOFRAN) 2 MG/ML injection Starting on Sun02/09/17 at 1203, For 1 dose, Analia Flores : cabinet override Irritant. For ordered doses up to 4 mg, give IV Push undiluted over 2-5 minutes. ondansetron (ZOFRAN) injection 4 mg Given 02/09/2017 9:25 AM MANAGER CAR 4 mg 4 mg, Intravenous, ONCE, Administer over 2-5 Minutes, On Sun02/09/17 at 0917, For 1 dose, Irritant. For ordered doses up to 4 mg, give IV Push undiluted over 2-5 minutes. ondansetron (ZOFRAN) injection 4 mg Given 02/09/2017 12:05 PM MANAGER CAR 4 mg 4 mg, Intravenous, EVERY 30 MIN PRN, nausea, vomiting, Administer over 2-5 Minutes, Starting on Sun02/09/17 at 1204, For 3 doses, May repeat in 30 minutes as needed, up to 3 doses. Irritant. For ordered doses up to 4 mg, give IV Push undiluted over 2-5 minutes. ondansetron (ZOFRAN-ODT) ODT tab 4 mg Given 02/09/2017 2:05 PM MANAGER CAR 4 mg 4 mg, Oral, ONCE, On [...] Recently Administered Medications Times are shown in MANAGER CAR. Scheduled Medication Order 02/07/2017 02/08/2017 02/09/2017 0.9% [...] minutes. documented in this encounter Care Teams Axminster Rug Setter Relationship Specialty Start Date End Date Raghavendra Deras MD PCP - General Family Practice 10/07/13 Raghavendra Deras MD PCP - Assigned PCP 01/23/16 04/09/18 Raghavendra Deras MD Assigned PCP 01/23/16 05/14/21 documented as of this encounter
--- OUTSIDE RECORDS SUMMARY | 2021-11-07 15:42 | XMS_ITS | Encounter Summary ---
:1945 Author Organization [place] Address [address] [facility] [place] [address] Care Team Providers Name Role Phone Raghavendra Deras MD Primary Care Provider Unavailable Raghavendra Deras MD Unavailable Unavailable Raghavendra Deras MD Unavailable Unavailable Reason for Visit Reason Comments Hoarse Ear Problem Left Encounter Details Date Type Department Care Team Description 11/01/2016 Office Visit [facility] Raghavendra Deras Viral URI (Primary Dx); Clinic Candy Alan MD PND (post-nasal drip); [id number] [facility] Trauma of ear canal, [place] [address] Social History Tobacco Use Types [...] Date Recorded 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
--- OUTSIDE RECORDS SUMMARY | 2021-11-07 15:42 | XMS_ITS | Encounter Summary ---
:1945 Author Organization [place] Address [facility] 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 Plan of [...] athologist Signature Sodium 141 133 - 144 [place] mmol/L [facility] Potassium 3.6 3.4 - 5.3 [place] mmol/L [facility] Chloride 107 94 - 109 [place] mmol/L [facility] Carbon Dioxide 27 20 - 32 [place] mmol/L [facility] Anion Gap 7 6 - 17 [place] mmol/L [facility] Glucose 100 (H) 70 - 99 [place] mg/dL [facility] Comment: Effective 09/03/2013, the reference range for this assay has changed to reflect new instrumentation/methodology. Urea Nitrogen 16 7 - 30 mg/dL [facility] Comment: Effective 09/03/2013, the reference range for this assay has changed to reflect new instrumentation/methodology. Creatinine 1.04 0.66 - 1.25 mg/dL [facility] GFR Estimate 71 >60 mL/min/1.7m2 [facility] Comment: Non GFR Calc GFR Estimate If Black 86 >60 mL/min/1.7m2 [facility] Comment: GFR Calc Calcium 9.3 8.5 - 10.1 mg/dL [facility] Comment: Effective 09/03/2013, the reference range for this assay has changed to reflect new instrumentation/methodology. Specimen Anatomical Collection Method Collection Time Receive d Time (Source) Location / / Volume Laterality Blood specimen 11/13/2013 9:56 AM 014 9:57 (specimen) CDT AM CDT Raghavendra Deras MD LAB - BLOOD ORDERABLES Performing Organization Address City/State/ZIP Code Phon e Number [facility] [address] [phone] [facility] Lipid panel reflex to direct LDL (11/13/2013 9:56 AM CDT) athologist Signature Cholesterol 150 <200 mg/dL [facility] Comment: LDL Cholesterol is the primary guide to therapy. The NCEP recommends further evaluation of: patients with cholesterol greater than 200 mg/dL if additional risk facto rs are present, cholesterol greater than 240 mg/dL, triglycerides greater than 1 50 mg/dL, or HDL less than 40 mg/dL. Triglycerides 111 0 - 150 mg/dL [facility] Comment: Fasting specimen HDL Cholesterol 58 >40 mg/dL [facility] LDL Cholesterol Calculated 70 0 - 129 mg/dL [facility] Comment: LDL Cholesterol is the primary guide to therapy: LDL-cholesterol goal in high risk patients is <100 mg/dL and in very high risk patients is <70 mg/dL. VLDL-Cholesterol 22 0 - 30 mg/dL [facility] Cholesterol/HDL Ratio 2.6 0.0 - 5.0 [facility] Specimen Anatomical Collection Method Collection Time Receive d Time (Source) Location / / Volume Laterality Blood specimen 11/13/2013 9:56 AM 014 9:57 (specimen) CDT AM CDT Raghavendra Deras MD LAB - BLOOD ORDERABLES Performing Organization Address City/State/ZIP Code Phon e Number [facility] [address] [id number] [facility] documented in this encounter Visit Diagnoses Diagnosis Hyperlipidemia LDL goal <130 Other and unspecified hyperlipidemia Hypertension goal BP (blood pressure) < 140/90 Unspecified essential hypertension documented in this encounter Care Teams Economics Instructor Relationship Specialty Start Date End Date Raghavendra Deras MD PCP - General Family Practice 10/07/13 documented as of this encounter
--- OUTSIDE RECORDS SUMMARY | 2021-11-07 15:42 | XMS_ITS | Encounter Summary ---
:1945 Author Organization [place] Address [address] [facility] [place] [address] Care Team Providers Name Role Phone Raghavendra Deras MD Primary Care Provider Unavailable Reason for Visit Reason Comments Wellness Visit Encounter Details Date Type Department Care Team Description 01/12/2016 Office Visit [facility] Raghavendra Deras Encounter for routine adult health examination without abnormal findings (Primary Dx); Clinic Candy Alan MD Hypertension goal BP (blood pressure) < 140/90; [id number] [facility] Chronic cough; [place], [place] Benign non-nod ular prostatic hyperplasia with lower urinary tract symptoms; [id number] History of peptic ulcer dise ase; [phone] M[place] (obstructiv e sleep apnea); Advanced direct [...] at Date Recorded Male 01/15/2018 11:39 PM RENTAL CLERK documented as of this encounter Last Filed Vital Signs Vital Sign Reading Time Taken Comments Blood Pressure 120/68 01/12/2016 9:38 AM RENTAL CLERK Pulse 67 01/12/2016 9:38 AM RENTAL CLERK Temperature 36.6 ??C (97.9 ??F) 01/12/2016 9:38 AM RENTAL CLERK Respiratory Rate - - Oxygen Saturation - - Inhaled Oxygen Concentration - - Weight 96.4 kg (212 lb 8 oz) 01/12/2016 9:38 AM RENTAL CLERK Height 175.3 cm (5' 9) 01/12/2016 9:38 AM RENTAL CLERK Body Mass Index 31.38 01/12/2016 9:38 AM RENTAL CLERK documented in this encounter Patient Instructions Patient [...] such as glaucoma, macular degeneration and cataracts. AL CLERK documented in this encounter Progress Notes Raghavendra [...] COGNITIVE SCREEN 1) Repeat 3 items (Banana, [place], Chair) 2) Clock draw: NORMAL 3) 3 item recall: Recalls 2 objects Results: NORMAL clock, 1-2 items recalled: COGNITIVE IMPAIRMENT LESS LIKELY Mini-CogTM Copyright Murali Lenz. Licensed by the author for use in [place] [facility] [employer]; reprintedwith permission ([email or web address]). All rights reserved. Patient with history of [...] past. All Histories reviewed and updated in [facility] as appropriate. Social History Substance Use [...] following health maintenance items are reviewed in [facility] and correct as of today: Health Maintenance Topic Date Due ??? HEPATITIS C SCREENING 04/23/1963 ??? LIPID MONITORING Q1 YEAR( NO INBASKET) 11/13/2014 ??? FALL RISK ASSESSMENT 10/02/2015 ??? COLONOSCOPY Q5 YR INBAFangxinmeiET MESSAGE 06/05/2018 ??? TETANUS IMMUNIZATION (SYSTEM ASSIGNED) 10/19/2018 ??? ADVANCE DIRECTIVE PLANNING Q5 YRS (NO INBASKET) 01/11/2021 ??? PNEUMOCOCCAL Completed ??? AORTIC ANEURYSM SCREENING (SYSTEM ASSIGNED) Completed ROS: Constitutional, HEENT, cardiovascular, pulmonary, gi and gu systems are negative, except as otherwise noted. Problem list, Medication list, Allergies, and Medical/Social/Surgical histories reviewed in [facility] andupdated as appropriate. OBJECTIVE: BP 120/68 [...] trigger - fluticasone (FLONASE) 50 MCG/ACT spray; [place] 1-2 sprays into both nostrils daily Dispense: [...] Prophylaxis Lung CA Screening Raghavendra Deras MD [facility] AL CLERK documented in this encounter Nursing Notes Fatemeh [...] kg). Fatemeh Camacho CMA Health Maintenance- Reviewed. AL CLERK documented in this encounter Plan of Treatment Not on filedocumented as of this encounter Procedures Procedure Name Priority Date/Time Associated Diagnosis Comme nts URINE MICROSCOPIC Routine 01/12/2016 10:16 Encounter for israel ne Results for this AM RENTAL CLERK adult health procedure are i n examination without the resu lts abnormal findings section. UA MACROSCOPIC WITH Routine 01/12/2016 10:16 Benign non-nodula r Results for this REFLEX TO AM RENTAL CLERK prostatic hyperplasia proced ure are in MICROSCOPIC AND with lower urinary the re sults CULTURE tract symptoms section. PROSTATE SPECIFIC Routine 01/12/2016 10:16 Screening for prost ate Results for this ANTIGEN SCREEN AM RENTAL CLERK cancer procedure are in the results section. LIPID REFLEX TO Routine 01/12/2016 10:16 Hyperlipidemia LDL Re sults for this DIRECT LDL PANEL AM RENTAL CLERK goal <130 procedure a re in the results section. HEPATITIS C ANTIBODY Routine 01/12/2016 10:16 Need for hepatit is C Results for this AM RENTAL CLERK screening test procedure are in the results section. BASIC METABOLIC Routine 01/12/2016 10:16 Hypertension goal BP Results for this PANEL AM RENTAL CLERK (blood pressure) < procedure are in 140/90 the results section. documented in this encounter Results (ABNORMAL) Urine Microscopic (01/12/2016 10:16 AM RENTAL CLERK) [facility] Method Time Signature WBC Urine O - 2 0 - 2 [place] /HPF [facility] RBC Urine 2-5 (A) 0 - 2 [place] /HPF [facility] Squamous Few FEW /LPF [place] Epithelial /LPF [facility] Urine [place] Bacteria Urine Few (A) NEG /HPF [facility] Mucous Urine Present (A) NEG /LPF [facility] Specimen Anatomical Collection Method Collection Time Receive d Time (Source) Location / / Volume Laterality 01/12/2016 10:16 01/12/2016 AM RENTAL CLERK 10:21 AM RENTAL CLERK Raghavendra Deras MD LAB - URINE ORDERABLES Performing Organization Address City/State/ZIP Code Phon e Number [facility] [phone] [place] [address] (ABNORMAL) UA reflex to Microscopic and Culture (01/12/2016 10:16 AM RENTAL CLERK) [facility] gist Method Time Signature Color Urine Yellow [facility] Appearance Urine Clear [facility] Glucose Urine Negative NEG mg/dL [facility] Bilirubin Urine Negative NEG [facility] Ketones Urine Negative NEG mg/dL [facility] Specific [place] 1.025 1.003 - [place] Urine 1.035 [facility] Blood Urine Trace (A) NEG [facility] pH Urine 7.0 5.0 - 7.0 [place] pH [facility] Protein Albumin Negative NEG mg/dL [place] Urine [facility] Urobilinogen 0.2 0.2 - 1.0 [place] Urine EU/dL [facility] Nitrite Urine Negative NEG [facility] Leukocyte Negative NEG [place] Esterase Urine [facility] Source Midstream [place] Urine [facility] Specimen Anatomical Collection Method Collection Time Receive d Time (Source) Location / / Volume Laterality Urine specimen 01/12/2016 10:16 6 (specimen) AM RENTAL CLERK 10:21 AM RENTAL CLERK Raghavendra Deras MD LAB - URINE ORDERABLES Performing Organization Address City/[facility]/ZIP Code Phon e Number [facility] [phone] [place] [address] Prostate spec antigen screen (01/12/2016 10:16 AM RENTAL CLERK) P athologist Signature PSA 0.64 0 - 4 ug/L [facility] Comment: Assay Method: Chemiluminescence using Siemens Pacoima analyzer Specimen Anatomical Collection Method Collection Time Receive d Time (Source) Location / / Volume Laterality Blood specimen 01/12/2016 10:16 6 (specimen) AM RENTAL CLERK 10:21 AM RENTAL CLERK Raghavendra Deras MD LAB - BLOOD ORDERABLES Performing Organization Address City/[facility]/ZIP Code Phon e Number [facility] [address] [place] [address] [facility] [address] [place] [address], U [phone] Hepatitis C antibody (01/12/2016 10:16 AM RENTAL CLERK) Component Value Ref Test Analysis Performed At [facility] Range Method Time Signature Hepatitis C Nonreactive NR [facility] Antibody Assay performance character istics have not been established for newborns, [place] [facility] infants, and children [facility] Specimen Anatomical Collection Method Collection Time Receive d Time (Source) Location / / Volume Laterality Blood specimen 01/12/2016 10:16 6 (specimen) AM RENTAL CLERK 10:21 AM RENTAL CLERK Raghavendra Deras MD LAB - BLOOD ORDERABLES Performing Organization Address City/State/ZIP Code Phon e Number [facility] [address] [place] [address] [facility] (ABNORMAL) Lipid panel reflex to direct LDL (01/12/2016 10:16 AM RENTAL CLERK) Analysis Performed At [facility] logist Time Signature Cholesterol 154 <200 mg/dL [facility] Triglycerides 182 (H) <150 mg/dL [facility] Comment: Borderline high: ??150-199 mg/dl High: ? 200-499 mg/dl Very high: ? >499 mg/dl HDL Cholesterol 44 >39 mg/dL [place] [facility] LDL Cholesterol Calculated 74 <100 mg/dL [facility] Comment: Desirable: <100 mg/dl Non HDL Cholesterol 110 <130 mg/dL [facility] Specimen Anatomical Collection Method Collection Time Receive d Time (Source) Location / / Volume Laterality Blood specimen 01/12/2016 10:16 6 (specimen) AM RENTAL CLERK 10:21 AM RENTAL CLERK Raghavendra Deras MD LAB - BLOOD ORDERABLES Performing Organization Address City/[facility]/ZIP Code Phon e Number [facility] [address] [place] [address] (ABNORMAL) Basic metabolic panel (01/12/2016 10:16 AM RENTAL CLERK) [facility] gist Method Time Signature Sodium 143 133 - 144 [place] mmol/L [facility] Potassium 3.6 3.4 - 5.3 [place] mmol/L [facility] Chloride 106 94 - 109 [place] mmol/L [facility] Carbon Dioxide 29 20 - 32 [place] mmol/L [facility] Anion Gap 8 3 - 14 [place] mmol/L [facility] Glucose 103 (H) 70 - 99 [place] mg/dL [facility] Urea Nitrogen 20 7 - 30 [place] mg/dL [facility] Creatinine 1.12 0.66 - [place] 1.25 mg/dL [facility] GFR Estimate 65 >60 [place] mL/min/1.7 CLINICS m2 [facility] Comment: Non GFR Calc GFR Estimate If Black 78 >60 mL/min/1.7m2 F [facility] Comment: GFR Calc Calcium 9.2 8.5 - 10.1 mg/dL [place] [facility] ICS [facility] Specimen Anatomical Collection Method Collection Time Receive d Time (Source) Location / / Volume Laterality Blood specimen 01/12/2016 10:16 6 (specimen) AM RENTAL CLERK 10:21 AM RENTAL CLERK Raghavendra Deras MD LAB - BLOOD ORDERABLES Performing Organization Address City/State/ZIP Code Phon e Number [facility] [address] [place] [address] documented in this encounter Visit Diagnoses Diagnosis [...] prostate documented in this encounter Care Teams Lining Brusher Relationship Specialty Start Date End Date Raghavendra Deras MD PCP - General Family Practice 10/07/13 documented as of this encounter
--- OUTSIDE RECORDS SUMMARY | 2021-11-07 15:42 | XMS_ITS | Encounter Summary ---
:1945 Author Organization [place] Address [facility] 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 When cleaning use vacuum cytotechnologist supervisor, oiled mops and damp cloths; don???t stir [...] may take CLARITIN (loratadine). (Claritin is an uygr-kmz-jbfjrso antihistamine that does not cause drowsiness.) ?? [...] with lots of colored sputum (mucus) ?? [phone] [employer]. [address] [place] [address], [place] [address]. All rights reserved. This information is not [...] you have any questions. Talk to your administrative operations coordinator regarding the use of this medicine in children. While this drug may be prescribed for children as young as 4 years old for selected conditions, precautions do apply. Overdosage: If you think you have taken too much of this medicine contact a poison control center [facility] room at once. NOTE: This medicine is [...] this medicine? Visit your doctor or health school child care attendant for regular checks on your progress. Some symptoms mayimprove within 12 hours after starting use. Check with your doctor or health school child care attendant if there is no improvement in your condition after 3 weeks of use. Do not come in contact with people who have chickenpox or the measles while you are taking this medicine. If you do, call your doctor right away. What side effects may I notice from receiving this medicine? Side effects that you should report to your doctor or health school child care attendant as soon as possible: ?? allergic reactions like skin rash, itching or hives, swelling of the face, lips, or tongue ?? changes in vision ?? flu-like symptoms ?? white patches or sores in the mouth or nose Side effects that usually do not require medical attention (report to your doctor or health school child care attendant if they continue or are bothersome): ?? burning or irritation inside the nose or throat ?? cough ?? headache ?? nosebleed ?? unusual taste or smell This list may not describe all possible side effects. Call your doctor for medical advice about sideeffects. You may report side effects to FDA at 8-806-OQP-1600. Where should I keep my medicine? Keep [...] C.A.D. Maternal Uncle ME ??? Cancer - Colorectal Maternal Uncle ??? [...] the bedroom: ?? When cleaning use vacuum cytotechnologist supervisor, oiled mops and damp cloths; don???t stir [...] may take CLARITIN (loratadine). (Claritin is an jcnw-dto-lxsugma antihistamine that does not cause drowsiness.) ?? [...] with lots of colored sputum (mucus) ?? [phone] [employer]. [address] [place] [address]. All rights reserved. This information is not [...] you have any questions. Talk to your administrative operations coordinator regarding the use of this medicine in children. While this drug may be prescribed for children as young as 4 years old for selected conditions, precautions do apply. Overdosage: If you think you have taken too much of this medicine contact a poison control center [facility] room at once. NOTE: This medicine is [...] this medicine? Visit your doctor or health school child care attendant for regular checks on your progress. Some symptoms mayimprove within 12 hours after starting use. Check with your doctor or health school child care attendant if there is no improvement in your condition after 3 weeks of use. Do not come in contact with people who have chickenpox or the measles while you are taking this medicine. If you do, call your doctor right away. What side effects may I notice from receiving this medicine? Side effects that you should report to your doctor or health school child care attendant as soon as possible: ?? allergic reactions like skin rash, itching or hives, swelling of the face, lips, or tongue ?? changes in vision ?? flu-like symptoms ?? white patches or sores in the mouth or nose Side effects that usually do not require medical attention (report to your doctor or health school child care attendant if they continue or are bothersome): ?? burning or irritation inside the nose or throat ?? cough ?? headache ?? nosebleed ?? unusual taste or smell This list may not describe all possible side effects. Call your doctor for medical advice about sideeffects. You may report side effects to FDA at 5-562-ZSC-0436. Where should I keep my medicine? Keep [...] 2014 Gold Standard Annette Rodarte APRN CNP [facility] documented in this encounter Nursing Notes Ban [...] unspecified documented in this encounter Care Teams Paper Gluing Operator Relationship Specialty Start Date End Date Raghavendra Deras MD PCP - General Family Practice 10/07/13 documented as of this encounter
--- OUTSIDE RECORDS SUMMARY | 2021-11-07 15:42 | XMS_ITS | Encounter Summary ---
:1945 Author Organization [place] Address [facility] [place] [address] Care Team Providers Name Role Phone Raghavendra Deras MD Primary Care Provider Unavailable Reason for Visit Reason Comments Musculoskeletal Problem Encounter Details Date Type Department Care Team Description 03/11/2015 Office Visit [facility] Elly Cueto ion of rib, left, initial encounter (Primary Dx); Clinic Candy Thrasher MD Hypertension goal BP (blood pressure) < 140/90 [id number] [facility] [address] [place] [address] [phone] Social History Tobacco Use Types Packs/Day Years [...] at Date Recorded Male 01/15/2018 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 documented as of this encounter Last Filed Vital Signs Vital Sign Reading Time Taken Comments Blood Pressure 151/88 03/11/2015 3:27 PM FULLING MILL OPERATOR Pulse 68 03/11/2015 3:27 PM FULLING MILL OPERATOR Temperature 36.8 ??C (98.2 ??F) 03/11/2015 3:27 PM FULLING MILL OPERATOR Respiratory Rate - - Oxygen Saturation - - Inhaled Oxygen Concentration - - Weight 92.5 kg (204 lb) 03/11/2015 3:27 PM FULLING MILL OPERATOR Height 175.3 cm (5' 9) 03/11/2015 3:27 PM FULLING MILL OPERATOR Body Mass Index 30.13 03/11/2015 3:27 PM FULLING MILL OPERATOR documented in this encounter Patient Instructions [...] as directed by your healthcare provider ?? [phone] [employer]. [address] [place] [address], [place] [address]. All rights reserved. This information is not intended as a substitute for professional medical care. Always follow your healthcare professional's instructions. ING MILL OPERATOR documented in this encounter Progress Notes Elly [...] Diabetes Maternal Grandmother ??? C.A.D. Maternal Uncle ID ??? Cancer - colorectal Maternal Uncle ??? [...] ??? fluticasone (FLONASE) 50 MCG/ACT nasal spray [place] 1-2 sprays into both nostrils daily 1 [id number] ??? fish oil-omega-3 fatty acids 1000 MG [...] symptoms are not improving. Elly Cueto MD [facility] ING MILL OPERATOR documented in this encounter Nursing Notes [place] [...] completed using cuff size: temo Dubois CMA ING MILL OPERATOR documented in this encounter Plan of Treatment Not on filedocumented as of this encounter Visit Diagnoses Diagnosis Contusion of rib, left, initial encounte r - Primary Hypertension goal BP (blood pressure) < 140/90 Unspecified essential hypertension documented in this encounter Care Teams Automobile Parker Relationship Specialty Start Date End Date Raghavendra Deras MD PCP - General Family Practice 10/07/13 documented as of this encounter
--- OUTSIDE RECORDS SUMMARY | 2021-11-07 15:42 | XMS_ITS | Encounter Summary ---
:1945 Author Organization [place] Address [facility] 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 Pt's Number: [phone] Bhavin Muhammad Railroad Mechanic 06/01/16 documented in this encounter Plan of Treatment Not on filedocumented as of this encounter Visit Diagnoses Not on filedocumented in this encounter Care Teams Manager Of Product Relationship Specialty Start Date End Date Raghavendra Deras MD PCP - General Family Practice 10/07/13 Raghavendra Deras MD PCP - Assigned PCP 01/23/16 04/09/18 Raghavendra Deras MD Assigned PCP 01/23/16 05/14/21 documented as of this encounter
--- OUTSIDE RECORDS SUMMARY | 2021-11-07 15:42 | XMS_ITS | Encounter Summary ---
:1945 Author Organization [place] Address [facility] 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 Janny Rodriguez, RN NG INSPECTOR documented in this encounter Plan of Treatment Not on filedocumented as of this encounter Visit Diagnoses Not on filedocumented in this encounter Care Teams Stone Setter Metal Optical Frames Relationship Specialty Start Date End Date Raghavendra Deras MD PCP - General Family Practice 10/07/13 documented as of this encounter
--- OUTSIDE RECORDS SUMMARY | 2021-11-07 15:42 | XMS_ITS | Encounter Summary ---
:1945 Author Organization [place] Address [facility] 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 Martha Dias Sales Support Coordinator Telephone Encounter - Ariella Davidosn - 04/21/2014 2:04 PM CDT LVM asking patient to call the clinic, please inform him the message below. Ariella Davidson Sales Support Coordinator Telephone Encounter - Raghavendra Deras MD - [...] normal range. Pt can be reached at [phone] for further plan. Phoenix Dubois CMA documented in this encounter Plan of Treatment Not on filedocumented as of this encounter Visit Diagnoses Not on filedocumented in this encounter Care Teams Mortgage Processing Clerk Relationship Specialty Start Date End Date Raghavendra Deras MD PCP - General Family Practice 10/07/13 documented as of this encounter
--- OUTSIDE RECORDS SUMMARY | 2021-11-07 15:42 | XMS_ITS | Encounter Summary ---
:1945 Author Organization [place] Address [address] [facility] 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
--- OUTSIDE RECORDS SUMMARY | 2021-11-07 15:42 | XMS_ITS | Encounter Summary ---
:1945 Author Organization [place] Address [address] [facility] [place] [address] Care Team Providers Name Role Phone Raghavendra Deras MD Primary Care Provider Unavailable Reason for Visit Reason Comments Physical Pre Visit Planning - Done Encounter Details Date Type Department Care Team Description 04/15/2014 Office Visit [facility] Raghavendra Deras Routine g eneral medical examination at a health care facility (Primary Dx); Clinic Candy Alan MD Hypertension goal BP (blood pressure) < 140/90; [address] [facility] Hyperlipidemia LDL goal < 13 0; [place], [place] History of ane jolynn; [id number] Adenomatous polyp of colon; [phone] HYPERTROPHY of PROSTATE ; Special screeni ng [...] at Date Recorded 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 Last PSA: Sanches PSA Date Value Ref Range Status 12/31/2002 [...] Yes All Histories reviewed and updated in [facility]. Past Medical History Diagnosis Date ??? Essential [...] list, Allergies, and Medical/Social/Surgical histories reviewed in [facility] andupdated as appropriate. OBJECTIVE: BP 130/80 [...] self-directed dieting: reduce calories. Raghavendra Deras MD [facility] Answers for HPI/ROS submitted by the patient [...] completed using cuff size: large Pablo Leon TACK PULLER documented in this encounter Plan of Treatment [...] Signature PSA 0.85 0 - 4 ug/L [facility] Specimen Anatomical Collection Method Collection Time Receive d Time (Source) Location / / Volume Laterality Blood specimen 04/15/2014 10:07 5 (specimen) AM CDT 10:08 AM CDT Raghavendra Deras MD LAB - BLOOD ORDERABLES Performing Organization Address City/[facility]/ZIP Code Phon e Number [facility] [address] [place] [address] Ferritin (04/15/2014 10:07 AM CDT) athologist Signature Ferritin 117 26 - 388 [facility] ng/mL [facility] Specimen Anatomical Collection Method Collection Time Receive d Time (Source) Location / / Volume Laterality Blood specimen 04/15/2014 10:07 5 (specimen) AM CDT 10:08 AM CDT Raghavendra Deras MD LAB - BLOOD ORDERABLES Performing Organization Address City/[facility] Code Phon e Number [facility] [address] [place] [address] Basic metabolic panel (04/15/2014 10:07 AM CDT) athologist Signature Sodium 140 133 - 144 [place] mmol/L [facility] Potassium 3.6 3.4 - 5.3 [place] mmol/L [facility] Chloride 106 94 - 109 [place] mmol/L [facility] Carbon Dioxide 28 20 - 32 [place] mmol/L [facility] Anion Gap 6 3 - 14 [place] mmol/L [facility] Glucose 96 70 - 99 [place] mg/dL [facility] Comment: Effective 09/03/2013, the reference range for this assay has changed to reflect new instrumentation/methodology. Urea Nitrogen 16 7 - 30 mg/dL [facility] Comment: Effective 09/03/2013, the reference range for this assay has changed to reflect new instrumentation/methodology. Creatinine 0.97 0.66 - 1.25 mg/dL [facility] GFR Estimate 77 >60 mL/min/1.7m2 [facility] Comment: Non GFR Calc GFR Estimate If Black >90 >60 mL/min/1.7m2 F [facility] GFR Calc HOSP ITAL Calcium 8.9 8.5 - 10.1 mg/dL [facility] Comment: Effective 09/03/2013, the reference range for this assay has changed to reflect new instrumentation/methodology. Specimen Anatomical Collection Method Collection Time Receive d Time (Source) Location / / Volume Laterality Blood specimen 04/15/2014 10:07 5 (specimen) AM CDT 10:08 AM CDT Raghavendra Deras MD LAB - BLOOD ORDERABLES Performing Organization Address City/[facility]/ZIP Code Phon e Number [facility] [address] [phone] [facility] [address] [phone] (ABNORMAL) CBC with platelets (04/15/2014 10:07 AM CDT) Analysis Performed At Patho logist Time Signature WBC 5.3 4.0 - 11.0 [place] 10e9/L [facility] RBC Count 4.56 4.4 - 5.9 [place] 10e12/L [facility] Hemoglobin 13.3 13.3 - [place] 17.7 g/dL [facility] Hematocrit 38.6 (L) 40.0 - [place] 53.0 % [facility] MCV 85 78 - 100 [facility] MCH 29.2 26.5 - [place] 33.0 pg [facility] MCHC 34.5 31.5 - [place] 36.5 g/dL [facility] RDW 13.0 10.0 - [place] 15.0 % [facility] Platelet Count 147 (L) 150 - 450 [place] 10e9/L [facility] Specimen Anatomical Collection Method Collection Time Receive d Time (Source) Location / / Volume Laterality Blood specimen 04/15/2014 10:07 5 (specimen) AM CDT 10:08 AM CDT Raghavendra Deras MD LAB - BLOOD ORDERABLES Performing Organization Address City/[facility]/ZIP Code Phon e Number [facility] [address] [place] [address] documented in this encounter Visit Diagnoses Diagnosis [...] prostate documented in this encounter Care Teams Coater Smoking Pipe Relationship Specialty Start Date End Date Raghavendra Deras MD PCP - General Family Practice 10/07/13 documented as of this encounter
--- OUTSIDE RECORDS SUMMARY | 2021-11-07 15:42 | XMS_ITS | Encounter Summary ---
:1945 Author Organization [place] Address [facility] 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
--- OUTSIDE RECORDS SUMMARY | 2021-11-07 15:42 | XMS_ITS | Encounter Summary ---
:1945 Author Organization [place] Address [address] [facility] [place] [address] Care Team Providers Name Role Phone Raghavendra Deras MD Primary Care Provider Unavailable Reason for Visit Reason Comments Refill Request on BP medication, PT is not FASTING Encounter Details Date Type Department Care Team Description 10/07/2013 Office Visit [facility] Raghavendra Deras Hypertens ion goal BP (blood pressure) < 140/90 (Primary Dx); Clinic Candy Alan MD Hyperlipidemia LDL goal <130 ; [address] [facility] At risk for falling; [place], [place] Esophageal ref [facility] [address] Social History Tobacco Use Types Packs/Day Years [...] at Date Recorded 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 C.A.D. Maternal Uncle [place] ??? Colon CA Maternal Uncle ??? Prostatic [...] MG capsule Continue PPI. Raghavendra Deras MD [facility] documented in this encounter Nursing Notes Raudel Garcia, STUDENT RECORDS COORDINATOR - 10/07/2013 3:24 PM CDT Chief Complaint [...] reflux documented in this encounter Care Teams Balance Engineer Relationship Specialty Start Date End Date Raghavendra Deras MD PCP - General Family Practice 10/07/13 documented as of this encounter
--- OUTSIDE RECORDS SUMMARY | 2021-11-07 15:42 | XMS_ITS | Encounter Summary ---
:1945 Author Organization [place] Address [facility] 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 States he will call back to schedule when he has his calendar. Myriam Barrett RN, BSN RETE GUN OPERATOR Telephone Encounter - Wade Wiggins - 01/22/2017 1:17 PM CST [place] 11/01/2016 RETE GUN OPERATOR Telephone Encounter - Janny Rodriguez RN - 01/22/2017 1:14 PM CST LM needs yearly PX Janny Rodriguez RN RETE GUN OPERATOR documented in this encounter Plan of Treatment Not on filedocumented as of this encounter Visit Diagnoses Diagnosis Hypertension goal BP (blood pressure) < 140/90 Unspecified essential hypertension documented in this encounter Care Teams Agri Business Agent Relationship Specialty Start Date End Date Raghavendra Deras MD PCP - General Family Practice 10/07/13 Raghavendra Deras MD PCP - Assigned PCP 01/23/16 04/09/18 Raghavendra Deras MD Assigned PCP 01/23/16 05/14/21 documented as of this encounter
--- OUTSIDE RECORDS SUMMARY | 2021-11-07 15:42 | XMS_ITS | Encounter Summary ---
:1945 Author Organization [place] Address [facility] 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 Myriam Barrett RN, BSN Telephone [...] # refills: 3 Last Office Visit with [facility], [facility] or [facility] prescribing provider: 11/01/2016 Potassium Date Value Ref Range Status 01/12/2016 3.6 3.4 - 5.3 mmol/L Final Creatinine Date Value Ref Range Status 01/12/2016 1.12 0.66 - 1.25 mg/dL Final BP Readings from Last 3 Encounters: 11/01/16 120/72 05/22/16 120/70 04/20/16 130/80 Omeprazole Last Written Prescription Date: 01/12/2016 Last Fill Quantity: 90, # refills: 3 Last Office Visit with [facility] or [facility] prescribing provider: Wade Wiggisn XRT documented in this encounter Plan of Treatment Not on filedocumented as of this encounter Visit Diagnoses Diagnosis Hypertension goal BP (blood pressure) < 140/90 Unspecified essential hypertension History of peptic ulcer disease Personal history of peptic ulcer disease documented in this encounter Care Teams Undercollar Baster Relationship Specialty Start Date End Date Raghavendra Deras MD PCP - General Family Practice 10/07/13 Raghavendra Deras MD PCP - Assigned PCP 01/23/16 04/09/18 Raghavendra Deras MD Assigned PCP 01/23/16 05/14/21 documented as of this encounter
--- OUTSIDE RECORDS SUMMARY | 2021-11-07 15:42 | XMS_ITS | Encounter Summary ---
:1945 Author Organization [place] Address [facility] [place] [address] Care Team Providers Name Role Phone Raghavendra Deras MD Primary Care Provider Unavailable Raghavendra Deras MD Unavailable Unavailable Raghavendra Deras MD Unavailable Unavailable Reason for Visit (Routine) - Closed Specialty Diagnoses / Procedures Referred By Contact Refer red To Contact Radiology / Radiology. Diagnoses Epic Order, sb pt. Rh Ct Scan [facility] Procedures CT ABDOMEN PELVIS W [address] [place] [address] Phone: Fax: Referral ID Status Reason Start Date Expiration Date Visits Requ ested Visits Authorized [id number] Closed 05/23/2016 05/23/2017 1 1 Encounter Details Date Type Department Care Team Description 05/26/2016 Hospital Encounter [facility] Raghavendra Deras Abd ominal pain, [facility] MD Waqas generalized [address] [place] [address] Social History Tobacco Use Types [...] at Date Recorded Male 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
--- OUTSIDE RECORDS SUMMARY | 2021-11-07 15:42 | XMS_ITS | Encounter Summary ---
:1945 Author Organization [place] Address [address] [facility] 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 documented as of this encounter Last [...] to Microscopic and Culture Raghavendra Deras MD [facility] documented in this encounter Nursing Notes [...] Microscopic and Culture (05/22/2016 11:55 AM CDT) [facility] Method Time Signature Color Urine Yellow [facility] Appearance Urine Clear [facility] Glucose Urine Negative NEG mg/dL [facility] Bilirubin Urine Negative NEG [facility] Ketones Urine Negative NEG mg/dL [facility] Specific [place] 1.015 1.003 - [place] Urine 1.035 [facility] Blood Urine Negative NEG [facility] pH Urine 5.5 5.0 - 7.0 [place] pH [facility] Protein Albumin Negative NEG mg/dL [facility] Urobilinogen 0.2 0.2 - 1.0 [place] Urine EU/dL [facility] Nitrite Urine Negative NEG [facility] Leukocyte Negative NEG [facility] Esterase Urine [facility] Source Midstream [place] Urine [facility] Specimen Anatomical Collection Method Collection Time Receive d Time (Source) Location / / Volume Laterality Urine specimen 05/22/2016 11:55 7 (specimen) AM CDT 12:00 PM CDT Raghavendra Deras MD LAB - URINE ORDERABLES Performing Organization Address City/State/ZIP Code Phon e Number [facility] [address] [place] [address] documented in this encounter Visit Diagnoses Diagnosis Abdominal pain, generalized - Primary Abdominal pain, generalized documented in this encounter Care Teams Stubber Relationship Specialty Start Date End Date Raghavendra Deras MD PCP - General Family Practice 10/07/13 Raghavendra Deras MD PCP - Assigned PCP 01/23/16 04/09/18 Raghavendra Deras MD Assigned PCP 01/23/16 05/14/21 documented as of this encounter
--- OUTSIDE RECORDS SUMMARY | 2021-11-07 15:42 | XMS_ITS | Encounter Summary ---
:1945 Author Organization [place] Address [address] [facility] [place] [address] Care Team Providers Name Role Phone Raghavendra Deras MD Primary Care Provider Unavailable Raghavendra Deras MD Unavailable Unavailable Raghavendra Deras MD Unavailable Unavailable Reason for Referral Consultation - Closed Specialty Diagnoses / Procedures Referred By Contact Refer red To Contact Diagnoses Hoarseness of voice Raghavendra Deras MD [facility] [address] RA[address]SA UREÑAE [address] [place] [address] [place], [place] [address] Phone: Fax: Referral ID Status Reason Start Date Expiration Date Visits Requ ested Visits Authorized [id number] Closed 01/31/2017 01/31/2018 1 1 RNSHIP Reason for Visit Reason Comments Wellness Visit Encounter Details Date Type Department Care Team Description 01/31/2017 Office Visit [facility] Raghavendra Deras g eneral medical examination at a health care facility (Primary Dx); Clinic Candy Alan MD Hyperlipidemia LDL goal <130 ; [address] [address] Hypertension goal BP (blood pressure) < 140/90; [place], [place] History of pep tic ulcer disease; [id number] [place] (obstructive sleep apnea ); [phone] Hoarseness of v oice Social History Tobacco [...] at Date Recorded Male 01/15/2018 11:39 PM INTERNSHIP documented as of this encounter Last Filed Vital Signs Vital Sign Reading Time Taken Comments Blood Pressure 148/90 01/31/2017 11:02 AM INTERNSHIP Pulse 71 01/31/2017 10:42 AM INTERNSHIP Temperature 36.8 ??C (98.2 ??F) 01/31/2017 10:42 AM INTERNSHIP Respiratory Rate - - Oxygen Saturation 98% 01/31/2017 10:42 AM INTERNSHIP Inhaled Oxygen Concentration - - Weight 95.8 kg (211 lb 4.8 oz) 01/31/2017 10:42 AM INTERNSHIP Height 175.3 cm (5' 9) 01/31/2017 10:42 AM INTERNSHIP Body Mass Index 31.2 01/31/2017 10:42 AM INTERNSHIP documented in this encounter Patient Instructions Patient [...] such as glaucoma, macular degeneration and cataracts. RNSHIP documented in this encounter Progress Notes Fatemeh [...] COGNITIVE SCREEN 1) Repeat 3 items (Banana, [place], Chair) 2) Clock draw: NORMAL 3) 3 item recall: Recalls 3 objects Results: 3 items recalled: COGNITIVE IMPAIRMENT LESS LIKELY Mini-CogTM Copyright Murali Lenz. Licensed by the author for use in [facility]; reprintedwith permission ([email or web address]). All rights reserved. Reviewed and updated as [...] following health maintenance items are reviewed in [facility] and correct as of today: Health Maintenance [...] History Negative Father ??? C.A.D. Maternal Uncle [place] ??? Cancer - colorectal Maternal Uncle ??? [...] his behalf by Radha Mobley, a trained bacteriologist medical. The creation of this document is based on the provider's statements to the bacteriologist medical. Radha Mobley 10:59 AM January 31, 2017 [...] information in this document, created by the bacteriologist medical for me, accurately reflects the services I personally performed and the decisions made by me. I have reviewed and approved this document for accuracy prior to leaving the patient care area. January 31, 2017 11:44 AM Raghavendra Deras MD [facility] RNSHIP documented in this encounter Nursing Notes Fatemeh [...] Maintenance addressed: NONE n/a Fatemeh Camacho CMA RNSHIP documented in this encounter Plan of Treatment Scheduled Referrals Name Type Priority Associated Diagnoses Order S chedule OTOLARYNGOLOGY REFERRAL Referral Routine Hoarseness of voi ce Ordered: 01/31/2017 documented as of this encounter Procedures Procedure Name Priority Date/Time Associated Diagnosis Comme nts UA MACROSCOPIC WITH Routine 01/31/2017 11:30 Hypertension goal BP Results for this REFLEX TO AM INTERNSHIP (blood pressure) < procedure are in MICROSCOPIC AND 140/90 the results CULTURE section. LIPID REFLEX TO Routine 01/31/2017 11:21 Hyperlipidemia LDL Re sults for this DIRECT LDL PANEL AM INTERNSHIP goal <130 procedure a re in the results section. BASIC METABOLIC Routine 01/31/2017 11:21 Hypertension goal BP Results for this PANEL AM INTERNSHIP (blood pressure) < procedure are in 140/90 the results section. documented in this encounter Results UA reflex to Microscopic and Culture (01/31/2017 11:30 AM INTERNSHIP) [facility] Method Time Signature Color Urine Yellow 01/31/2017 [place] 11:34 AM [facility] Appearance Urine Clear 01/31/2017 [place] 11:34 AM [facility] Glucose Urine Negative NEG^Negat 01/31/2017 [place]a mg/dL 11:34 AM [facility] Bilirubin Urine Negative NEG^Negat 01/31/2017 [place] 11:34 AM [facility] Ketones Urine Negative NEG^Negat 01/31/2017 [place] mg/dL 11:34 AM [facility] Specific [place] 1.015 1.003 - 01/31/2017 [place] Urine 1.035 11:34 AM [facility] Blood Urine Negative NEG^Negat 01/31/2017 [place] 11:34 AM [facility] pH Urine 7.0 5.0 - 7.0 01/31/2017 [place] pH 11:34 AM [facility] Protein Albumin Negative NEG^Negat 01/31/2017 [place] Urine deepa mg/dL 11:34 AM [facility] Urobilinogen 0.2 0.2 - 1.0 01/31/2017 [place] Urine EU/dL 11:34 AM [facility] Nitrite Urine Negative NEG^Negat 01/31/2017 [place] 11:34 AM [facility] Leukocyte Negative NEG^Negat 01/31/2017 [place] Esterase Urine deepa 11:34 AM [facility] Source Midstream 01/31/2017 [place] Urine 11:34 AM [facility] Specimen (Source) Anatomical Collection Method Collection Time Re ceived Time Location / / Volume Laterality Examination of 01/31/2017 11:30 7 midstream urine AM [place] 11:31 AM INTERNSHIP specimen (procedure) Raghavendra Deras MD LAB - URINE ORDERABLES Performing Organization Address City/State/ZIP Code Phon e Number [facility] [address] [place] [address] Basic metabolic panel (01/31/2017 11:21 AM INTERNSHIP) P athologist Signature Sodium 143 133 - 144 02/01/2017 [facility] mmol/L 9:07 AM [facility] Potassium 4.4 3.4 - 5.3 02/01/2017 [facility] mmol/L 9:07 AM [facility] [place] Chloride 108 94 - 109 02/01/2017 [facility] mmol/L 9:07 AM [facility] Carbon Dioxide 27 20 - 32 02/01/2017 [place] [facility] CS mmol/L 9:07 AM [facility] Anion Gap 8 3 - 14 02/01/2017 [facility] mmol/L 9:07 AM [facility] Glucose 85 70 - 99 02/01/2017 [facility] mg/dL 9:07 AM [facility] Comment: Fasting specimen Urea Nitrogen 11 7 - 30 mg/dL 02/01/2017 9:07 AM [facility] Creatinine 0.98 0.66 - 1.25 mg/dL 02/01/2017 9:07 AM CS T [facility] GFR Estimate 75 >60 mL/min/1.7m2 02/01/2017 9:[address] [facility] Comment: Non GFR Calc GFR Estimate If >90 >60 mL/min/1.7m2 02/01/2017 9:[address] [facility] Black [facility] Comment: GFR Calc Calcium 8.9 8.5 - 10.1 mg/dL 02/01/2017 9:07 AM [facility] Specimen Anatomical Collection Method Collection Time Receive d Time (Source) Location / / Volume Laterality Blood specimen 01/31/2017 11:21 7 (specimen) AM [place]HIP 11:22 AM INTERNSHIP Raghavendra Deras MD LAB - BLOOD ORDERABLES Performing Organization Address City/State/ZIP Code Phon e Number [facility] [address] [place] [address] (ABNORMAL) Lipid panel reflex to direct LDL Fasting (01/31/2017 11:21 AM INTERNSHIP) Analysis Performed At Patho logist Time Signature Cholesterol 149 <200 mg/dL 02/01/2017 [place] 9:07 AM [facility] Triglycerides 171 (H) <150 mg/dL 02/01/2017 [place] 9:10 AM [facility] Comment: Borderline high: ??150-199 mg/dl High: ? 200-499 mg/dl Very high: ? >499 mg/dl Fasting specimen HDL Cholesterol 49 >39 mg/dL 02/01/2017 9:10 AM [facility] LDL Cholesterol 66 <100 mg/dL 02/01/2017 9:10 AM [facility] Comment: Desirable: <100 mg/dl Non HDL Cholesterol 100 <130 mg/dL 02/01/2017 9:10 AM [facility] Specimen Anatomical Collection Method Collection Time Receive d Time (Source) Location / / Volume Laterality Blood specimen 01/31/2017 11:21 7 (specimen) AM INTERNSHIP 11:22 AM INTERNSHIP Raghavendra Deras MD LAB - BLOOD ORDERABLES Performing Organization Address City/State/ZIP Code Phon e Number M [facility] [address] [place] [address] [facility] [address] [place], [place] [address] [facility] [address] [address], [place] [phone] documented in this encounter Visit Diagnoses Diagnosis [...] Dysphonia documented in this encounter Care Teams Principal Bioinformatics Specialist Relationship Specialty Start Date End Date Raghavendra Deras MD PCP - General Family Practice 10/07/13 Raghavendra Deras MD PCP - Assigned PCP 01/23/16 04/09/18 Raghavendra Deras MD Assigned PCP 01/23/16 05/14/21 documented as of this encounter
--- OUTSIDE RECORDS SUMMARY | 2021-11-07 15:42 | XMS_ITS | Encounter Summary ---
:1945 Author Organization [place] Address [facility] 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 documented as of this encounter Last Filed Vital Signs Vital Sign Reading Time Taken Comments Blood Pressure 115/80 04/05/2015 2:40 PM CONTROL SYSTEMS DEVELOPER Pulse 74 04/05/2015 2:40 PM CONTROL SYSTEMS DEVELOPER Temperature 36.4 ??C (97.5 ??F) 04/05/2015 2:40 PM CONTROL SYSTEMS DEVELOPER Respiratory Rate 16 04/05/2015 2:40 PM CONTROL SYSTEMS DEVELOPER Oxygen Saturation 96% 04/05/2015 2:40 PM CONTROL SYSTEMS DEVELOPER Inhaled Oxygen Concentration - - Weight 93.8 kg (206 lb 14.4 oz) 04/05/2015 2:40 PM CONTROL SYSTEMS DEVELOPER Height 175.3 cm (5' 9) 04/05/2015 2:40 PM CONTROL SYSTEMS DEVELOPER Body Mass Index 30.55 04/05/2015 2:40 PM CONTROL SYSTEMS DEVELOPER documented in this encounter Progress Notes Tyler [...] should be seen [facility] Tyler Calderon MD [facility] ROL SYSTEMS DEVELOPER documented in this encounter Nursing Notes Gladys [...] Montesinos MA Health Maintenance has been reviewed. ROL SYSTEMS DEVELOPER documented in this encounter Miscellaneous Notes Addendum Note - Dwain Catalan - 04/05/2015 5:13 PM CONTROL SYSTEMS DEVELOPER Addended by: DWAIN CATALAN on: 04/05/2015 05:13 PM Modules accepted: Orders ROL SYSTEMS DEVELOPER documented in this encounter Plan of Treatment Not on filedocumented as of this encounter Visit Diagnoses Diagnosis Pain of right upper extremity - Primary Mixed hyperlipidemia documented in this encounter Care Teams Line Repairer Relationship Specialty Start Date End Date Raghavendra Deras MD PCP - General Family Practice 10/07/13 documented as of this encounter
--- OUTSIDE RECORDS SUMMARY | 2021-11-07 15:42 | XMS_ITS | Encounter Summary ---
:1945 Author Organization [place] Address [address] [facility] 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 He [...] Diabetes Maternal Grandmother ??? C.A.D. Maternal Uncle [place] ??? Cancer - colorectal Maternal Uncle ??? [...] VACCINE 13 VALENT IM Raghavendra Deras MD [facility] documented in this encounter Nursing Notes Raudel Garcia CMA - 10/01/2014 10:49 AM CDT Chief Complaint Patient presents with ??? Edema swollen ankles x 4-6 weeks ??? Refill Request would like [facility] Initial BP 122/74 mmHg Pulse 61 Temp(Src) [...] Basic metabolic panel (10/01/2014 11:49 AM CDT) [facility] Method Time Signature Sodium 141 133 - 144 [place] mmol/L [facility] Potassium 3.5 3.4 - 5.3 [place] mmol/L [facility] Chloride 106 94 - 109 [place] mmol/L [facility] Carbon Dioxide 24 20 - 32 [place] mmol/L [facility] Anion Gap 11 3 - 14 [place] mmol/L [facility] Glucose 119 (H) 70 - 99 [place] mg/dL [facility] Urea Nitrogen 15 7 - 30 [place] mg/dL [facility] Creatinine 0.92 0.66 - [place] 1.25 mg/dL [facility] GFR Estimate 81 >60 [place] mL/min/1.7 CLINICS m2 [facility] Comment: Non GFR Calc GFR Estimate If >90 >60 mL/min/1.7m2 [facility] Black GFR Calc [facility] Calcium 9.2 8.5 - 10.1 mg/dL [place] CLIN ICS [facility] Specimen Anatomical Collection Method Collection Time Receive d Time (Source) Location / / Volume Laterality Blood specimen 10/01/2014 11:49 5 (specimen) AM CDT 11:50 AM CDT Raghavendra Deras MD LAB - BLOOD ORDERABLES Performing Organization Address City/State/ZIP Code Phon e Number [facility] [address] [place] [address] UA reflex to Microscopic and Culture (10/01/2014 11:49 AM CDT) [facility] Method Time Signature Color Urine Yellow [facility] Appearance Urine Clear [facility] Glucose Urine Negative NEG mg/dL [facility] Bilirubin Urine Negative NEG [facility] Ketones Urine Negative NEG mg/dL [facility] Specific [place] 1.020 1.003 - [place] Urine 1.035 [facility] Blood Urine Negative NEG [facility] pH Urine 6.0 5.0 - 7.0 [place] pH [facility] Protein Albumin Negative NEG mg/dL [facility] Urobilinogen 0.2 0.2 - 1.0 [place] Urine EU/dL [facility] Nitrite Urine Negative NEG [facility] Leukocyte Negative NEG [place] Esterase Urine [facility] Source Midstream [place] Urine [facility] Specimen Anatomical Collection Method Collection Time Receive d Time (Source) Location / / Volume Laterality Urine specimen 10/01/2014 11:49 5 (specimen) AM CDT 11:50 AM CDT Raghavendra Deras MD LAB - URINE ORDERABLES Performing Organization Address City/State/ZIP Code Phon e Number [facility] [address] [place] [address] documented in this encounter Visit Diagnoses Diagnosis [...] (pneumococcus) documented in this encounter Care Teams Data Assistant Relationship Specialty Start Date End Date Raghavendra Deras MD PCP - General Family Practice 10/07/13 documented as of this encounter
--- OUTSIDE RECORDS SUMMARY | 2021-11-07 15:42 | XMS_ITS | Encounter Summary ---
:1945 Author Organization [place] Address [address] [facility] [place] [address] Care Team Providers Name Role Phone Raghavendra Deras MD Primary Care Provider Unavailable Reason for Visit Reason Comments Urgent Care Hand Injury left hand ring finger. 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
--- OUTSIDE RECORDS SUMMARY | 2021-11-07 15:42 | XMS_ITS | Encounter Summary ---
:1945 Author Organization [place] Address [facility] 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 Pt can be reached at [phone] for further plan. Phoenix Dubois CMA documented in this encounter Plan of Treatment Not on filedocumented as of this encounter Visit Diagnoses Diagnosis BP check - Primary Screening for hypertension documented in this encounter Care Teams Personal Service Workers Relationship Specialty Start Date End Date Raghavendra Deras MD PCP - General Family Practice 10/07/13 documented as of this encounter
--- OUTSIDE RECORDS SUMMARY | 2021-11-07 15:42 | XMS_ITS | Encounter Summary ---
:1945 Author Organization [place] Address [address] [place] [address] Care Team Providers Name Role Phone Raghavendra Deras MD Primary Care Provider Unavailable Reason for Referral SOTO Physical Therapy - Closed Specialty Diagnoses / Procedures Referred By Contact Refer red To Contact Diagnoses Chronic left-sided low back pain without sciatica Artis Thrasher DO [facility] [address] [place] [address] [address] [facility] [place] [address] Phone: [phone] Referral ID Status Reason Start Date Expiration Date Visits Requ ested Visits Authorized [id number] Closed 10/08/2015 10/07/2016 1 1 Reason for Visit Reason Comments Musculoskeletal Problem low back pain Encounter Details Date Type Department Care Team Description 10/06/2015 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 Instructed to follow-up if change of symptoms arise (sooner if needed; call direct clinic number [[phone]] at any time with questions or concerns). documented in this encounter Progress Notes Artis Thrasher DO - 10/06/2015 10:46 AM CDT [facility] Visit s [...] counseling the patient with total time spent [id number] with the patient being 15 minutes. Artis Thrasher DO, [facility] Disclaimer: This [...] his behalf by Cornell Montejo, a trained medical genetics director. The creation ofthis record is based on [...] sciatica documented in this encounter Care Teams Upper And Bottom Lacer Hand Relationship Specialty Start Date End Date Raghavendra Deras MD PCP - General Family Practice 10/07/13 documented as of this encounter
--- OUTSIDE RECORDS SUMMARY | 2021-11-07 15:42 | XMS_ITS | Encounter Summary ---
:1945 Author Organization [place] Address [facility] 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 Myriam Barrett RN, BSN APPLIANCE WASHING MACHINE MECHANIC Telephone Encounter - Raghavendra Deras MD - 03/24/2016 11:08 AM CST Hydrochlorothiazide was stopped as this theoretically could have worsened urinary frequency issues. If he has not noticed a change in urinary habits then we could have him go back on that. BP Readings from Last 1 Encounters: 01/12/16 120/68 APPLIANCE WASHING MACHINE MECHANIC Telephone Encounter - Myriam Barrett RN - [...] change. Please advise Myriam Barrett RN, BSN APPLIANCE WASHING MACHINE MECHANIC documented in this encounter Plan of Treatment Not on filedocumented as of this encounter Visit Diagnoses Diagnosis Hypertension goal BP (blood pressure) < 140/90 Unspecified essential hypertension documented in this encounter Care Teams Sheet Metal Welder Relationship Specialty Start Date End Date Raghavendra Deras MD PCP - General Family Practice 10/07/13 Raghavendra Deras MD PCP - Assigned PCP 01/23/16 04/09/18 Raghavendra Deras MD Assigned PCP 01/23/16 05/14/21 documented as of this encounter
--- OUTSIDE RECORDS SUMMARY | 2021-11-07 15:42 | XMS_ITS | Encounter Summary ---
:1945 Author Organization [place] Address [facility] 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
--- OUTSIDE RECORDS SUMMARY | 2021-11-07 15:42 | XMS_ITS | Encounter Summary ---
:1945 Author Organization [place] Address 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 Janny Rodriguez RN documented in this encounter Plan of Treatment Not on filedocumented as of this encounter Visit Diagnoses Diagnosis History of peptic ulcer disease Personal history of peptic ulcer disease Hypertension goal BP (blood pressure) < 140/90 Unspecified essential hypertension documented in this encounter Care Teams Buckle Sewer Machine Relationship Specialty Start Date End Date Raghavendra Deras MD PCP - General Family Practice 10/07/13 Raghavendra Deras MD PCP - Assigned PCP 01/23/16 04/09/18 Raghavendra Deras MD Assigned PCP 01/23/16 05/14/21 documented as of this encounter
--- OUTSIDE RECORDS SUMMARY | 2021-11-07 15:42 | XMS_ITS | Encounter Summary ---
:1945 Author Organization [place] Address [address] [facility] [place] [address] Care Team Providers Name Role Phone Raghavendra Deras MD Primary Care Provider Unavailable Reason for Visit SOTO Physical Therapy (Routine) - Closed Specialty Diagnoses / Procedures Referred By Contact Refer red To Contact Artis Thrasher DO [facility] [address] [place] [address] [place] [address] [facility] [address] [place], [place] [address] Phone: Fax: Referral ID Status Reason Start Date Expiration Date Visits Requ ested Visits Authorized SOTO/HP/LBP Closed 10/06/2015 02/05/2016 20 18 Encounter Details Date Type Department Care Team Description 10/08/2015 Therapy Visit [facility] Vernon Steel, Acute left-sided low Rehabilitation Services PT back pain without [facility] sciatica (Primary [address] [facility] ATHLETIC MEDICINE Dx) [place] [address] [address] [place], [place] [phone] [address] Social History Tobacco Use Types Packs/Day [...] at Date Recorded Male 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 TRICIAN HELPER AUTOMOTIVE Isidra Gerber PTA - 10/12/2015 8:55 AM [...] min Extension (EXT): pain and min Side [place] R (SG R): nil and pain [place] L (SG L): nil and pain Test [...] Sheet for this information) Short term and long-term goals: (See Goal Flow Sheet for this [...] Vernon Steel PT - 01/06/2016 2:50 PM ELECTRICIAN HELPER AUTOMOTIVE Addended by: VERNON STEEL on: 01/06/2016 02:50 PM Modules accepted: Orders TRICIAN HELPER AUTOMOTIVE documented in this encounter Plan of Treatment Not on filedocumented as of this encounter Procedures Procedure Name Priority Date/Time Associated Diagnosis Comme [facility] ZZ THERAPEUTIC Routine 10/08/2015 4:11 PM Acute left-sided lo w EXERCISES CDT back pain without sciatica documented in this encounter Visit Diagnoses Diagnosis Acute left-sided low back pain without s ciatica - Primary documented in this encounter Care Teams Flaker Tender Relationship Specialty Start Date End Date Raghavendra Deras MD PCP - General Family Practice 10/07/13 documented as of this encounter
--- OUTSIDE RECORDS SUMMARY | 2021-11-07 15:42 | XMS_ITS | Encounter Summary ---
:1945 Author Organization [place] Address [address] [facility] [place] [address] Care Team Providers Name Role Phone Raghavendra Deras MD Primary Care Provider Unavailable Raghavendra Deras MD Unavailable Unavailable Raghavendra Deras MD Unavailable Unavailable Reason for Visit Reason Comments Abdominal Pain cramping Encounter Details Date Type Department Care Team Description 04/20/2016 Office Visit [facility] Raghavendra Deras Abdominal pain, left Clinic Candy Alan MD lower quadrant [address] 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 documented as of this encounter Last Filed [...] inflammation - Urine Microscopic Raghavendra Deras MD [facility] documented in this encounter Nursing Notes Yanelis Kessler, UNDER SEAL OPERATOR - 04/20/2016 10:45 AM CDT Chief Complaint [...] (ABNORMAL) Urine Microscopic (04/20/2016 11:07 AM CDT) [facility] gist Method Time Signature WBC Urine O - 2 0 - 2 [place] /HPF [facility] RBC Urine 2-5 (A) 0 - 2 [place] /HPF [facility] Bacteria Urine Few (A) NEG /HPF [facility] Mucous Urine Present (A) NEG /LPF [facility] Specimen Anatomical Collection Method Collection Time Receive d Time (Source) Location / / Volume Laterality 04/20/2016 11:07 04/20/2016 AM CDT 11:12 AM CDT Raghavendra Deras MD LAB - URINE ORDERABLES Performing Organization Address City/State/ZIP Code Phon e Number [facility] [address] [place] [address] CRP inflammation (04/20/2016 11:07 AM CDT) Analysis Performed At Patho logist Time Signature CRP Inflammation 3.5 0.0 - 8.0 [facility] mg/L [facility] Specimen Anatomical Collection Method Collection Time Receive d Time (Source) Location / / Volume Laterality Blood specimen 04/20/2016 11:07 7 (specimen) AM CDT 11:12 AM CDT Raghavendra Deras MD LAB - BLOOD ORDERABLES Performing Organization Address City/[facility]/ZIP Code Phon e Number [facility] [address] [place], [place] [id number] [place] [address] Erythrocyte sedimentation rate auto (04/20/2016 11:07 AM CDT) athologist Signature Sed Rate 13 0 - 20 mm/h [facility] Specimen Anatomical Collection Method Collection Time Receive d Time (Source) Location / / Volume Laterality Blood specimen 04/20/2016 11:07 7 (specimen) AM CDT 11:12 AM CDT Raghavendra Deras MD LAB - BLOOD ORDERABLES Performing Organization Address City/[facility]/ZIP Code Phon e Number [facility] [address] [place] [address] Tissue transglutaminase antibody IgA (04/20/2016 11:07 AM CDT) [facility] Method Time Signature Tissue 1 <7 U/mL [facility] Transglutaminase [place] [facility] Antibody IgA [facility] Comment: Negative The tTG-IgA assay has limited [...] - BLOOD ORDERABLES Performing Organization Address City/[facility]/ZIP Code Phon e Number [facility] [address] [place] [address] [facility] (ABNORMAL) CBC with platelets differential (04/20/2016 11:07 AM CDT) [facility] Method Time Signature WBC 4.3 4.0 - [place] 11.0 [facility] 10e9/L [place] RBC Count 4.53 4.4 - 5.9 [place] 10e12/L [facility] Hemoglobin 13.3 13.3 - [place] 17.7 g/dL [facility] Hematocrit 39.4 (L) 40.0 - [place] 53.0 % [facility] MCV 87 78 - 100 [place] fl [facility] MCH 29.4 26.5 - [place] 33.0 pg [facility] MCHC 33.8 31.5 - [place] 36.5 g/dL [facility] RDW 13.4 10.0 - [place] 15.0 % [facility] Platelet Count 154 150 - 450 [place] 10e9/L [facility] Diff Method Automated [facility] % Neutrophils 66.0 % [facility] % Lymphocytes 24.0 % [facility] % Monocytes 8.3 % [facility] % Eosinophils 1.2 % [facility] % Basophils 0.5 % [facility] Absolute 2.9 1.6 - 8.3 [place] Neutrophil 10e9/L [facility] Absolute 1.0 0.8 - 5.3 [place] Lymphocytes 10e9/L [facility] Absolute 0.4 0.0 - 1.3 [place] Monocytes 10e9/L [facility] Absolute 0.1 0.0 - 0.7 [place] Eosinophils 10e9/L [facility] Absolute 0.0 0.0 - 0.2 [place] Basophils 10e9/L [facility] Specimen Anatomical Collection Method Collection Time Receive d Time (Source) Location / / Volume Laterality Blood specimen 04/20/2016 11:07 7 (specimen) AM CDT 11:12 AM CDT Raghavendra Deras MD LAB - BLOOD ORDERABLES Performing Organization Address City/State/ZIP Code Phon e Number [facility] [address] [place] [address] (ABNORMAL) UA reflex to Microscopic and Culture (04/20/2016 11:07 AM CDT) [facility] Method Time Signature Color Urine Yellow [facility] Appearance Urine Clear [facility] Glucose Urine Negative NEG mg/dL [facility] Bilirubin Urine Negative NEG [facility] Ketones Urine Negative NEG mg/dL [facility] Specific [place] 1.015 1.003 - [place] Urine 1.035 [facility] Blood Urine Trace (A) NEG [facility] pH Urine 6.5 5.0 - 7.0 [place] pH [facility] Protein Albumin Negative NEG mg/dL [place] Urine [facility] Urobilinogen 0.2 0.2 - 1.0 [place] Urine EU/dL [facility] Nitrite Urine Negative NEG [facility] Leukocyte Negative NEG [place] Esterase Urine [facility] Source Midstream [place] Urine [facility] Specimen Anatomical Collection Method Collection Time Receive d Time (Source) Location / / Volume Laterality Urine specimen 04/20/2016 11:07 7 (specimen) AM CDT 11:12 AM CDT Raghavendra Deras MD LAB - URINE ORDERABLES Performing Organization Address City/State/ZIP Code Phon e Number [facility] [address] [place] [address] documented in this encounter Visit Diagnoses Diagnosis Abdominal pain, left lower quadrant - Pr imary documented in this encounter Care Teams Care Professionals Relationship Specialty Start Date End Date Raghavendra Deras MD PCP - General Family Practice 10/07/13 Raghavendra Deras MD PCP - Assigned PCP 01/23/16 04/09/18 Raghavendra Deras MD Assigned PCP 01/23/16 05/14/21 documented as of this encounter
--- OUTSIDE RECORDS SUMMARY | 2021-11-07 15:42 | XMS_ITS | Encounter Summary ---
:1945 Author Organization [place] Address [address] [facility] 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
--- OUTSIDE RECORDS SUMMARY | 2021-11-07 15:42 | XMS_ITS | Encounter Summary ---
:1945 Author Organization [place] Address [facility] 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 Myriam Barrett RN, BSN Telephone Encounter - [...] # refills: 4 Last Office Visit with [facility] [place] or Health prescribing provider: 03/11/2015 CHOL 150 11/13/2013 HDL 58 11/13/2013 LDL 70 11/13/2013 TRIG 111 11/13/2013 CHOLHDLRATIO 2.6 11/13/2013 Omeprazole Last Written Prescription Date: 10/01/2014 Last Fill Quantity: 90, # refills: 4 Last Office Visit with [facility] [place] or Health prescribing provider: Hydrochlorothiazide Last Written Prescription Date: 10/01/2014 Last Fill Quantity: 90, # refills: 4 Last Office Visit with [facility] [place] or Health prescribing provider: POTASSIUM Date Value Ref Range Status 10/01/2014 3.5 3.4 - 5.3 mmol/L Final CREATININE Date Value Ref Range Status 10/01/2014 0.92 0.66 - 1.25 mg/dL Final BP Readings from Last 3 Encounters: 10/06/15 118/68 04/05/15 115/80 03/11/15 151/88 Doxazosin Last Written Prescription Date: 10/01/2014 Last Fill Quantity: 45, # refills: 4 Last Office Visit with [facility] [place] or [facility] prescribing provider: Future Office Visit: [...] hypertension documented in this encounter Care Teams Timber Selector Relationship Specialty Start Date End Date Raghavendra Deras MD PCP - General Family Practice 10/07/13 documented as of this encounter
--- OUTSIDE RECORDS SUMMARY | 2021-11-07 15:43 | XMS_ITS | Encounter Summary ---
:1945 Author Organization [place] Address [address] [facility] [place] [address] Care Team Providers Name Role Phone Nasir Velazquez MD Primary Care Provider [phone] Reason for Referral Referral not Required - Closed Specialty Diagnoses / Procedures Referred By Contact Refer red To Contact Diagnoses Back injury Nasir Velazquez, [facility] [address] [facility] ADMIN OFFICE [address] [place] [address] [place], [place] [address] Phone: [phone] Referral ID Status Reason Start Date Expiration Date Visits Requ ested Visits Authorized [id number] Closed 04/02/2012 09/29/2012 1 1 E SUPERVISOR Reason for Visit Reason Comments Back Pain Encounter Details Date Type Department Care Team Description 04/02/2012 Office Visit [facility] Nasir Velazquez Back i carlos (Primary [facility] [place]) [address] [place], [place] CLINIC [address] [address] [facility] [phone] [place] [address] (Wo rk) Social History Tobacco [...] at Date Recorded 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 documented as of this encounter Last Filed Vital Signs Vital Sign Reading Time Taken Comments Blood Pressure 115/70 04/02/2012 10:54 AM NURSE SUPERVISOR Pulse 68 04/02/2012 10:54 AM NURSE SUPERVISOR Temperature 36.7 ??C (98.1 ??F) 04/02/2012 10:54 AM NURSE SUPERVISOR Respiratory Rate - - Oxygen Saturation 95% 04/02/2012 10:54 AM NURSE SUPERVISOR Inhaled Oxygen Concentration - - Weight 93.2 kg (205 lb 6.4 oz) 04/02/2012 10:54 AM NURSE SUPERVISOR Height 175.3 cm (5' 9) 04/02/2012 10:54 AM NURSE SUPERVISOR Body Mass Index 30.33 04/02/2012 10:54 AM NURSE SUPERVISOR documented in this encounter Progress Notes [...] 205 lb 6.4 oz(93.169 kg). Nasir Velazquez [facility] E SUPERVISOR documented in this encounter Nursing Notes 04/02/2012 [...] trunk documented in this encounter Care Teams Rand Maker Relationship Specialty Start Date End Date Nasir Velazquez MD PCP - General 02/18/99 10/06/[address] [address] documented as of this encounter
--- OUTSIDE RECORDS SUMMARY | 2021-11-07 15:43 | XMS_ITS | Encounter Summary ---
:1945 Author Organization [place] Address [address] [facility] [place] [address] Care Team Providers Name Role Phone Scottie Nicole MD Primary Care Provider [phone] Reason for Visit Auth/Cert - Closed Specialty Diagnoses / Procedures Referred By Contact Refer red To Contact Gastroenterology Diagnoses HX OF POLYPS Rh Endoscopy Procedures COLONOSCOPY [address] [place] [address] Phone: Fax: Referral ID Status Reason Start Date Expiration Date Visits Requ ested Visits Authorized [id number] Closed 1 1 Encounter Details Date Type Department Care Team Description 06/05/2013 Surgery [facility] Endoscopy Matthew Dubose MD COLONOSCOPY [place] [facility] [address] [facility] [address] [place] [address] [place], [place] [address] [phone] (Wo rk) Surgery Details Date/Time Status Location [...] at Date Recorded 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 To help relieve pain, antispasmodic [...] the option of having surgery with you. [place] [facility] Help keep your colon healthy with a diet that includes plenty of high-fiber fruits, vegetables, and whole grains. Drink plenty of liquids like water and juice. Your doctor may also recommend avoiding seeds and nuts. ?? [phone] [facility], [address] [place] [address], [place] [address]. All rights reserved. This information is not [...] in old age ??? C.A.D. Maternal Uncle MS ??? Colon [place] Maternal Uncle ??? Prostatic [...] encounter Results COLONOSCOPY (06/05/2013 9:28 AM CDT) [facility] Method Time Signature COLONOSCOPY [facility] RAD IOLOGY RESULTS Patient Name: Terry [...] ?oxygen saturations were monitored continuously. The ?[id number] was introduced through the anus ?and advanced [...] Intra-procedure documented in this encounter Care Teams Cardboard Cutter Relationship Specialty Start Date End Date Scottie Nicole MD PCP - General 02/18/99 10/06/[address] [address] documented as of this encounter
--- OUTSIDE RECORDS SUMMARY | 2021-11-07 15:43 | XMS_ITS | Encounter Summary ---
:1945 Author Organization [place] Address [facility] [place] [address] Care Team Providers Name Role Phone Nasir Velazquez MD Primary Care Provider [phone] Encounter Details Date Type Department Care Team Description 08/02/2012 Telephone [facility] Nasir Velazquez [place] 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
--- OUTSIDE RECORDS SUMMARY | 2021-11-07 15:43 | XMS_ITS | Encounter Summary ---
:1945 Author Organization [place] Address [facility] [place] [address] Care Team Providers Name Role Phone Nasir Velazquez MD Primary Care Provider [phone] Reason for Visit Reason Comments ER F/U Encounter Details Date Type Department Care Team Description 01/15/2013 Office Visit [facility] Nasir Velazquez Abdomi nal pain, other specified site (Primary Dx); Clinic [place] MD Geraldo Gastroenteritis [address] [facility] [address] [place] [address] [place] [address] Social History Tobacco Use Types [...] Date Recorded Male 01/15/2018 11:39 PM [facility] documented as of this encounter Last Filed Vital Signs Vital Sign Reading Time Taken Comments Blood Pressure 130/86 01/15/2013 11:15 AM [facility] Pulse 71 01/15/2013 11:15 AM [facility] Temperature 37.1 ??C (98.7 ??F) 01/15/2013 11:15 AM [facility] Respiratory Rate - - Oxygen Saturation 95% 01/15/2013 11:15 AM [facility] Inhaled Oxygen Concentration - - Weight 90.7 kg (200 lb) 01/15/2013 11:15 AM [facility] Height 175.3 cm (5' 9) 01/15/2013 11:15 AM [facility] Body Mass Index 29.53 01/15/2013 11:15 AM [facility] documented in this encounter Progress Notes Nasir Velazquez MD - 01/15/2013 11:07 AM CST SUBJECTIVE: Terry Montero is a 67 year old male who presents to clinic today for the following health issues: ED/UC Followup: Facility: [facility] Date of visit: 01-09-13 Reason for visit: abdominal pain Current Status: no cramping since. press tender star signal. symptoms most consistent with viral gastroenteritis vs food poisoning. Improving, has tolerated full diet recently. Problems list, allergies, social and family history, and past medical history, are all reviewed and updated in [facility]. Current Outpatient Prescriptions Medication Status Sig ??? [place]-3 Fatty Acids (FISH OIL PO) Active Take [...] needed at this time. follow up PRN. [facility] documented in this encounter Nursing Notes 01/15/2013 [...] completed using cuff size: large [place] Dubois GUEST ROOM ATTENDANT documented in this encounter Plan of Treatment Not on filedocumented as of this encounter Visit Diagnoses Diagnosis Abdominal pain, other specified site - P rimary Gastroenteritis Other and unspecified noninfectious dee roenteritis and colitis documented in this encounter Care Teams Turbine Operator Relationship Specialty Start Date End Date Nasir Velazquez MD PCP - General 02/18/99 10/06/13 [place] [address] [place] [address] documented as of this encounter
--- OUTSIDE RECORDS SUMMARY | 2021-11-07 15:43 | XMS_ITS | Encounter Summary ---
:1945 Author Organization [place] Address [facility] 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 documented as of this encounter Last Filed Vital Signs Vital Sign Reading Time Taken Comments Blood Pressure 138/84 08/21/2013 11:49 AM CDT Pulse 80 08/21/2013 11:49 AM CDT Temperature 37.3 ??C (99.1 ??F) 08/21/2013 11:49 AM CDT Respiratory Rate 18 08/21/2013 11:49 AM CDT Oxygen Saturation 94% 08/21/2013 11:49 AM CDT Inhaled Oxygen Concentration - - Weight 88 kg (194 lb 1.6 oz) 08/21/2013 11:49 AM CDT Height - - Body Mass Index 28.66 06/05/2013 8:55 AM CDT documented in this encounter Progress Notes Rufino Chaudhry PA-C - 08/21/2013 10:44 AM CDT SUBJECTIVE: Terry Montero is a 68 year old male who presents to clinic today for the following health issues: Acute Illness Acute illness concerns?- cold Onset: 3 days ?? Fever: YES, possible ?? Chills/Sweats: YES ?? Headache (location?): no ?? Sinus Pressure:YES ?? Conjunctivitis: YES: both ?? Ear Pain: no ?? Rhinorrhea: YES ?? Congestion: YES ?? Sore Throat: YES ?? Cough: VEO-vnf-ucydxoknbs, barking ?? Wheeze: no ?? Decreased Appetite: YES ?? Nausea: no ?? Vomiting: no ?? Diarrhea: no ?? Dysuria/Freq.: no ?? Fatigue/Achiness: YES ?? Sick/Strep Exposure: no Therapies Tried and outcome: loratadine hasn't helped much Feels that it is going into his chest now vs his sinuses which are improving. No chest pain or wheezing or SOB noted. Has only tried claritin starting the past two days. Not sleeping at night due to cough. Problem list and histories reviewed & adjusted, as indicated. Additional history: as documented Problem list, Medication list, Allergies, and Medical/Social/Surgical histories reviewed in [facility] andupdated as appropriate. ROS: Constitutional, HEENT, cardiovascular, pulmonary, gi and gu systems are negative, except as otherwise noted. OBJECTIVE: BP 138/84 Pulse 80 Temp(Src) 99.1 ??F (37.3 ??C) (Oral) Resp 18 Wt 194 lb 1.6 oz (88.043 kg) BMI 28.65 kg/m2 SpO2 94% Body mass index is 28.65 kg/(m^2). GENERAL APPEARANCE: healthy, alert and no distress HENT: ear canals and TM's normal and nose and mouth without ulcers or lesions RESP: lungs clear to auscultation - no rales, rhonchi or wheezes CV: regular rates and rhythm, normal S1 S2, no S3 or S4 and no murmur, click or rub LYMPHATICS: normal ant/post cervical and supraclavicular nodes SKIN: no suspicious lesions or rashes PSYCH: mentation appears normal and affect normal/bright Diagnostic test results: none ASSESSMENT/PLAN: (466.0) Acute bronchitis (primary encounter diagnosis) Comment: Plan: albuterol (PROAIR HFA, PROVENTIL HFA, VENTOLIN HFA) 108 (90 BASE) MCG/ACT inhaler, guaiFENesin-codeine (ROBITUSSIN AC) 100-10 MG/5ML SOLN, amoxicillin-clavulanate (AUGMENTIN) 875-125 MG per tablet Likely still viral at this point. I'd like his to start the inhaler and use the cough syrup at night to help him sleep. Push fluids and continue claritin as well. If not improving after the weekend (3-5 more days) he can fill the ABX and start that. (401.9) Hypertension goal BP (blood pressure) < 140/90 Comment: Plan: MICROALBUMIN QUANTITATIVE RANDOM URINE Rufino Chaudhry PA-C [facility] documented in this encounter Nursing Notes Pablo Leon I - 08/21/2013 11:49 AM CDT Chief Complaint Patient presents with ??? URI ??? Health Maintenance Lipid, Microalbumin Initial There were no vitals taken for this visit. Estimated body mass index is 28.78 kg/(m^2) as calculated from the following: Height as of 06/05/13: 5' 9 (1.753 m). Weight as of 06/05/13: 195 lb (88.451 kg). BP completed using cuff size: large documented in this encounter Plan of Treatment Not on filedocumented as of this encounter Procedures Procedure Name Priority Date/Time Associated Diagnosis Comme nts ALBUMIN RANDOM URINE Routine 08/21/2013 12:09 Hypertension goa l BP Results for this QUANTITATIVE PM CDT (blood pressure) < procedure are in 140/90 the results section. documented in this encounter Results MICROALBUMIN QUANTITATIVE RANDOM URINE (08/21/2013 12:09 PM CDT) Component Value Ref Test Analysis Performed At [facility] Range Method Time Signature Creatinine 124 mg/dL [facility] Urine [facility] Albumin Urine <5 mg/L [facility] mg/L Urine Microalbumin lowest re portable value has been changed from 2 mg/L to 5 [facility] mg/L due to a methodology change on May. [facility] Albumin Urine Unable to 0 - 17 [facility] mg/g Cr calculate mg/g Cr [facility] Specimen Anatomical Collection Method Collection Time Receive d Time (Source) Location / / Volume Laterality Urine specimen 08/21/2013 12:09 4 (specimen) PM CDT 12:10 PM CDT Rufino Rinaldi PA-C LAB - URINE ORDERABLES Performing Organization Address City/State/ZIP Code Phon e Number [facility] [address] [place], [place] [phone] [place] [address] LABS documented in this encounter Visit Diagnoses Diagnosis Acute bronchitis - Primary Hypertension goal BP (blood pressure) < 140/90 Unspecified essential hypertension documented in this encounter Care Teams Health And Physical Education Professor Relationship Specialty Start Date End Date Nasir Velazquez MD PCP - General 02/18/99 10/06/13 [place] [address] [place] [address] documented as of this encounter
--- OUTSIDE RECORDS SUMMARY | 2021-11-07 15:43 | XMS_ITS | Encounter Summary ---
:1945 Author Organization [place] Address [facility] 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 Deras. Poly Ibrahim, RN. D BANK SPECIALIST documented in this encounter Plan of Treatment Not on filedocumented as of this encounter Visit Diagnoses Not on filedocumented in this encounter Care Teams Cashier Manager Relationship Specialty Start Date End Date Nasir Velazquez MD PCP - General 02/18/99 10/06/13 [place] [address] [place] [address] documented as of this encounter
--- OUTSIDE RECORDS SUMMARY | 2021-11-07 15:43 | XMS_ITS | Encounter Summary ---
:1945 Author Organization [place] Address [facility] [place] [address] Care Team Providers Name Role Phone Nasir Velazquez MD Primary Care Provider [phone] Reason for Referral Diagnostic Procedure Outpatient - Closed Specialty Diagnoses / Procedures Referred By Contact Refer red To Contact Diagnoses Special screening for malignant neoplasms, colon Nasir Velazquez [facility] [address] [place] [phone] Fax: Referral ID Status Reason Start Date Expiration Date Visits Requ ested Visits Authorized [id number] Closed 04/23/2013 10/20/2013 1 1 Reason for Visit Reason Comments Recheck Medication Encounter Details Date Type Department Care Team Description 04/23/2013 Office Visit [facility] Nasir Velazquez l screening for malignant neoplasms, colon (Primary Dx); Clinic Candy Chow MD Adenomatous polyp of colon; [address] [facility] Esophageal reflux; [place], [place] CLINIC Hypertension goal BP (blood pressure) < 140/90 [phone] [address] [facility] [phone] [place] [address] Social History Tobacco Use Types Packs/Day Years [...] at Date Recorded 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 Current Outpatient Prescriptions Medication Sig ??? [...] Name Type Priority Associated Diagnoses Order S [facility] GASTROENTEROLOGY ADULT Referral Routine Special screening for Ordered: 04/23/2013 REFERRAL +/- PROCEDURE malignant neoplasm s, colon documented as of this encounter Visit Diagnoses Diagnosis Special screening for malignant neoplasm s, colon - Primary Adenomatous polyp of colon Benign neoplasm of colon Esophageal reflux Hypertension goal BP (blood pressure) < 140/90 Unspecified essential hypertension documented in this encounter Care Teams Sawmill Or Timber Yard Worker Relationship Specialty Start Date End Date Nasir Velazquez MD PCP - General 02/18/99 10/06/13 [place] [address] [place] [address] documented as of this encounter
--- OUTSIDE RECORDS SUMMARY | 2021-11-07 15:43 | XMS_ITS | Encounter Summary ---
:1945 Author Organization [place] Address [facility] 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 documented in this encounter Results US abdominal aorta limited (03/26/2012 9:53 AM PIE CRUST MIXER) Anatomical Region Laterality Modality Abdomen/Pelvis Other Specimen (Source) Anatomical Collection Method Collection Time Re ceived Time Location / / Volume Laterality 03/26/2012 9:53 AM PIE CRUST MIXER Impressions 03/26/2012 11:34 AM PIE CRUST MIXER IMPRESSION: Normal caliber abdominal aorta and common iliac arteries. No evidence of aneurysm. KEITH BOWERS MD Narrative 03/26/2012 11:34 AM PIE CRUST MIXER ULTRASOUND AORTIC IMAGING ??03/26/2012 9: 53 AM [...] on filedocumented in this encounter Care Teams Tree Faller Relationship Specialty Start Date End Date Nasir Velazquez MD PCP - General 02/18/99 10/06/13 [address] [address] [place] [address] documented as of this encounter
--- OUTSIDE RECORDS SUMMARY | 2021-11-07 15:43 | XMS_ITS | Encounter Summary ---
:1945 Author Organization [place] Address [facility] 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 Thanks! Martha Dias Viscose Cellar Charge Hand documented in this encounter Plan of Treatment Not on filedocumented as of this encounter Visit Diagnoses Diagnosis Hyperlipidemia LDL goal <130 - Primary Other and unspecified hyperlipidemia Hypertension goal BP (blood pressure) < 140/90 Unspecified essential hypertension documented in this encounter Care Teams Oyster Worker Relationship Specialty Start Date End Date Nasir Velazquez MD PCP - General 02/18/99 10/06/13 [place] [address] [place] [address] documented as of this encounter
--- OUTSIDE RECORDS SUMMARY | 2021-11-07 15:43 | XMS_ITS | Encounter Summary ---
:1945 Author Organization [place] Address [address] [facility] [place] [address] Care Team Providers Name Role Phone Nasir Velazquez MD Primary Care Provider [phone] Reason for Referral Referral not Required - Closed Specialty Diagnoses / Procedures Referred By Contact Refer red To Contact Diagnoses Hand pain Nasir Velazquez [facility] [address] [place] [address] [address] [facility] Phone: [phone] [place], [place] [address] Referral ID Status Reason Start Date Expiration Date Visits Requ ested Visits Authorized [id number] Closed 03/21/2012 09/17/2012 1 1 OLOGY ORDERLY Reason for Visit Reason Comments RECHECK right elbow. Encounter Details Date Type Department Care Team Description 03/21/2012 Office Visit [facility] Nasir Velazquez Olecra non bursitis (Primary Dx); Clinic Candy Chow MD Chronic rhinitis; [address] [facility] JADA Hand pain; [place], [place] CLINIC Screening for AAA (abdominal aortic aneu rysm) [phone] [address] [facility] [phone] [place] [address] (Wo rk) Social History Tobacco [...] at Date Recorded Male 01/15/2018 11:39 PM RADIOLOGY ORDERLY documented as of this encounter Last Filed Vital Signs Vital Sign Reading Time Taken Comments Blood Pressure 137/84 03/21/2012 11:04 AM RADIOLOGY ORDERLY Pulse 75 03/21/2012 11:04 AM RADIOLOGY ORDERLY Temperature 36.7 ??C (98 ??F) 03/21/2012 11:04 AM RADIOLOGY ORDERLY Respiratory Rate - - Oxygen Saturation 96% 03/21/2012 11:04 AM RADIOLOGY ORDERLY Inhaled Oxygen Concentration - - Weight 93.1 kg (205 lb 3 oz) 03/21/2012 11:04 AM RADIOLOGY ORDERLY Height 175.3 cm (5' 9) 03/21/2012 11:04 AM RADIOLOGY ORDERLY Body Mass Index 30.3 03/21/2012 11:04 AM RADIOLOGY ORDERLY documented in this encounter Patient Instructions Patient InstructionsNasir Velazquez MD - 03/21/2012 11:37 AM RADIOLOGY ORDERLY If the elbow is not improving over the next several weeks (or worsening), call for referral to Sports Medicine or Orthopedics for drainage of the olecranon bursitis. For exercises: Stretching - do stretching exercises every day. Hold stretches for 15 seconds, then repeat x 5. Strengthening - do strengthening exercises every other day. Do exercises until muscle fatigue/burn. OLOGY ORDERLY documented in this encounter Progress Notes Nasir [...] history, are all reviewed and updated in [facility]. Current Outpatient Prescriptions Medication Sig ??? fluticasone (FLONASE) 50 MCG/ACT nasal spray [place] 1-2 sprays into both nostrils daily as [...] current regimen. 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 patient [...] other day. Do exercises until muscle fatigue/burn. OLOGY ORDERLY documented in this encounter Nursing Notes 03/21/2012 11:00 AM CST >> [facility] Mar 21, 2012 11:08 AM Patient [...] Results Name Type Priority Associated Diagnoses Date/Ti la ORTHO CHIEF SOLUTION ARCHITECT REFERRAL Referral Routine Hand pain 08/2012 documented as of this encounter Visit Diagnoses Diagnosis Olecranon bursitis - Primary Chronic rhinitis Hand pain Pain in limb Screening for AAA (abdominal aortic aneu rysm) Screening for other and unspecified card iovascular conditions documented in this encounter Care Teams Gear Inspector Relationship Specialty Start Date End Date Nasir Velazquez MD PCP - General 02/18/99 10/06/13 [facility] [address] [place] [address] documented as of this encounter
--- OUTSIDE RECORDS SUMMARY | 2021-11-07 15:43 | XMS_ITS | Encounter Summary ---
:1945 Author Organization [place] Address [address] [facility] [place] [address] Care Team Providers Name Role Phone Nasir Velazquez MD Primary Care Provider [phone] Reason for Visit Referral not Required - Closed Specialty Diagnoses / Procedures Referred By Contact Refer red To Contact Diagnoses Back injury Nasir Velazquez, [facility] [address] [facility] ADMIN OFF[facility] [address] [place] [address] [place], [place] [address] Phone: [phone] Referral ID Status Reason Start Date Expiration Date Visits Requ ested Visits Authorized [id number] Closed 04/02/2012 09/29/2012 1 1 Encounter Details Date Type Department Care Team Description 04/03/2012 Therapy Visit [facility] Vernon Steel, LBP ( low back pain) Rehabilitation Services PT (Primary Dx) [address] ATHLETIC MEDICINE [place], [place] [address] [place] [address] [place], [place] [phone] [address] Social History Tobacco Use Types Packs/Day [...] at Date Recorded Male 01/15/2018 11:39 PM 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 OSSER documented in this encounter Plan of Treatment Not on filedocumented as of this encounter Procedures Procedure Name Priority Date/Time Associated Diagnosis Comme [facility] ZZ THERAPEUTIC Routine 04/03/2012 3:52 PM ENGROSSER LBP (low back p ain) EXERCISES documented in this encounter Visit Diagnoses Diagnosis LBP (low back pain) - Primary Lumbago documented in this encounter Care Teams Director Of Social Media Marketing Relationship Specialty Start Date End Date Nasir Velazquez MD PCP - General 02/18/99 10/06/13 [facility] [address] [place] [address] documented as of this encounter
--- OUTSIDE RECORDS SUMMARY | 2021-11-07 15:43 | XMS_ITS | Encounter Summary ---
:1945 Author Organization [place] Address [facility] 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 documented as of this encounter Progress Notes [...] logist Time Signature Occult Blood Negative NEG [facility] FIT [facility] Specimen Anatomical Collection Method Collection Time Receive d Time (Source) Location / / Volume Laterality Stool specimen 08/20/2012 10:20 3 (specimen) AM CDT 10:21 AM CDT Nasir Velazquez MD LAB - STOOLS ORDERABLES Performing Organization Address City/State/ZIP Code Phon e Number [facility] [address] LABS documented in this encounter Visit Diagnoses Diagnosis Anemia Anemia, unspecified documented in this encounter Care Teams Electrical And Electronic Assembler Relationship Specialty Start Date End Date Nasir Velazquez MD PCP - General 02/18/99 10/06/13 [place] [address] [place] [address] documented as of this encounter
--- OUTSIDE RECORDS SUMMARY | 2021-11-07 15:43 | XMS_ITS | Encounter Summary ---
:1945 Author Organization [place] Address [address] [place] [address] Care Team Providers Name Role Phone Nasir Velazquez MD Primary Care Provider [phone] Reason for Visit Reason Onset Date Comments Panel Management 05/09/2013 GI Printer Helper- Colono scopy Encounter Details Date Type Department Care Team Description 05/09/2013 Telephone [facility] Nasir Velazquez Panel Management (GI Clinic [place] MD Alisia Chow- [address] [facility] CLINIC Colonoscopy) [place] [address] [place] [address] [facility] [phone] [place] [address] (Wo rk) Social History Tobacco [...] at Date Recorded Male 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 Unable to reach patient. Not scheduled. documented in this encounter Plan of Treatment Not on filedocumented as of this encounter Visit Diagnoses Not on filedocumented in this encounter Care Teams Dust Control Engineer Relationship Specialty Start Date End Date Nasir Velazquez MD PCP - General 02/18/99 10/06/13 [facility] [address] [place] [address] documented as of this encounter
--- OUTSIDE RECORDS SUMMARY | 2021-11-07 15:43 | XMS_ITS | Encounter Summary ---
:1945 Author Organization [place] Address [address] [place] [address] Care Team Providers Name Role Phone Nasir Velazquez MD Primary Care Provider [phone] Reason for Visit SOTO Physical Therapy (Routine) - Closed Specialty Diagnoses / Procedures Referred By Contact Refer red To Contact Tony Brizuela MD ZZ SOTO [facility] [address] [facility] [address] [facility] [address] [place], [place] [phone] [place] [address] Phone: Fax: Referral ID Status Reason Start Date Expiration Date Visits V isits Requested Authorized SOTO/HP/SPINE Closed 02/12/2012 02/04/2013 20 18 Encounter Details Date Type Department Care Team Description 04/17/2012 Therapy Visit [facility] Vernon Steel, LBP ( low back pain) Rehabilitation Services PT (Primary Dx) [address] ATHLETIC MEDICINE [place], [place] [address] [place] [address] [place], [place] [phone] [address] Social History Tobacco Use Types Packs/Day [...] at Date Recorded Male 01/15/2018 11:39 PM 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
--- OUTSIDE RECORDS SUMMARY | 2021-11-07 15:43 | XMS_ITS | Encounter Summary ---
:1945 Author Organization [place] Address [facility] [address] Care Team Providers Name Role Phone Nasir Velazquez MD Primary Care Provider [phone] Reason for Visit Reason Onset Date Comments Nurse Advice Line 01/09/2013 abdominal pain Encounter Details Date Type Department Care Team Description 01/09/[address] [facility] Nasir Velazquez Nurse Advice Line Clinic [place] MD Geraldo (abdominal pain) [address] [place], [place] [address] 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 Ricky Barnhart, RN RESSOR MECHANIC documented in this encounter Plan of Treatment Not on filedocumented as of this encounter Visit Diagnoses Not on filedocumented in this encounter Care Teams Burlap Bag Sewer Relationship Specialty Start Date End Date Nasir Velazquez MD PCP - General 02/18/99 10/06/[address] [address] documented as of this encounter
--- OUTSIDE RECORDS SUMMARY | 2021-11-07 15:43 | XMS_ITS | Encounter Summary ---
:1945 Author Organization [place] Address [facility] [place] [address] Care Team Providers Name Role Phone Nasir Velazquez MD Primary Care Provider [phone] Reason for Visit (Routine) - Closed Specialty Diagnoses / Procedures Referred By Contact Refer red To Contact Radiology Diagnoses [facility] Procedure Notes: Screening for abdominal aortic aneurysm. 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
--- OUTSIDE RECORDS SUMMARY | 2021-11-07 15:43 | XMS_ITS | Encounter Summary ---
:1945 Author Organization [place] Address [address] [place] [address] Care Team Providers Name Role Phone Nasir Velazquez MD Primary Care Provider [phone] Reason for Visit Reason Comments Abdominal Pain Auth/Cert - Closed Specialty Diagnoses / Procedures Referred By Contact Refer red To Contact Med Surg Diagnoses Nausea with vomiting [id number] Rh Observation Dept [address] [place], [place] [address] Phone: Referral ID Status Reason Start Date Expiration Date Visits Requ ested Visits Authorized Closed 01/10/2013 07/09/2013 Encounter Details Date Type Department Care Team Description 01/10/2013 Emergency [facility] Preston Paulson MD [facility] [address] [place] [address] Nausea with vomiting (Primary Dx); [place] Aftab Lomeli MD [address] [place] [address] Abdominal pain, generalized; Dept Hypokalemia; [address] HYPERTROPHY of PROSTATE ; [place], [place] Esophageal re flux; [id number] Hyperlipidemia LDL goal <130 Social History Tobacco [...] at Date Recorded Male 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 documented as of this encounter Last Filed Vital Signs Vital Sign Reading Time Taken Comments Blood Pressure 130/71 01/10/2013 8:27 PM RESIDENTIAL INTERIOR DESIGNER Pulse 69 01/10/2013 8:27 PM RESIDENTIAL INTERIOR DESIGNER Temperature 35.8 ??C (96.5 ??F) 01/10/2013 8:22 PM RESIDENTIAL INTERIOR DESIGNER Respiratory Rate 16 01/10/2013 8:27 PM RESIDENTIAL INTERIOR DESIGNER Oxygen Saturation 96% 01/10/2013 8:27 PM RESIDENTIAL INTERIOR DESIGNER Inhaled Oxygen Concentration - - Weight 96 kg (211 lb 10.3 oz) 01/10/2013 6:16 AM RESIDENTIAL INTERIOR DESIGNER Height 175.3 cm (5' 9.02) 01/10/2013 6:16 AM RESIDENTIAL INTERIOR DESIGNER Body Mass Index 31.24 01/10/2013 6:16 AM RESIDENTIAL INTERIOR DESIGNER documented in this encounter Discharge Summaries Deedee Poole PA-C - 01/10/2013 4:19 PM CST [facility] Discharge Summary Terry Montero Date of : [...] these medications which have NOT CHANGED Details [place]-3 Fatty Acids (FISH OIL PO) Take 300 [...] with no focal deficits. Deedee Poole PA-C DENTIAL INTERIOR DESIGNER Charlie Alexander MD - 01/10/2013 4:19 PM CST Patient seen and examined by me independently .Medical records reviewed and plan of care was discussed with Deedee Poole PA-C I agree with discharge summary DENTIAL INTERIOR DESIGNER documented in this encounter Medications at Time [...] every 6 hours as needed for pain [place]-3 Fatty Acids (FISH Take 300 mg by [...] May need re-imaging if symptoms get worse DENTIAL INTERIOR DESIGNER Ivone Montero CM - 01/10/2013 9:30 AM CST Care Transitions Assessment: Spoke with the patient at the bedside. Confirmed demographics and that Dr. Velazquez is pts PCP. Pt agreeable for d/c appt facilitation. Appt scheduled for 01/15 at 1100. Pt updated and denies any further needs for discharge. Ivone Montero RN, BSN Care Gravity Prospecting Supervisor [phone] DENTIAL INTERIOR DESIGNER Snow Allen PA-C - 01/10/2013 9:20 AM [...] as dilaudid caused nausea. Snow Allen PA-C DENTIAL INTERIOR DESIGNER documented in this encounter H&P Notes Aftab Givens MD - 01/10/2013 6:24 AM CST [facility] Hospitalist Admission Note Name: Terry Montero Date [...] is retired he used to work for [employer] in [place] Family History: Family History Problem Relation Age of Onset ??? Diabetes Maternal Grandmother ??? Stroke Maternal Grandmother in old age ??? C.A.D. Maternal Uncle [place] ??? Colon [place] Maternal Uncle ??? Prostatic [...] 01/10/2013 MCV 86 01/10/2013 PLT 150 01/10/2013 DENTIAL INTERIOR DESIGNER documented in this encounter ED Notes Kae Snow RN - 01/10/2013 2:42 PM CST Up walking the halls. States nausea improved with ambulating. Wants to try eating in a few hours andthen go home DENTIAL INTERIOR DESIGNER Volodymyr Paulson MD - 01/10/2013 4:03 AM [...] a maternal history of diabetes, stroke, and [place]. The patient reports a paternal history of [...] to admission. Patient will be admitted to [facility] for further observation, evaluation, and treatment. Impression [...] to me. Volodymyr Paulson MD 01/10/13 0528 DENTIAL INTERIOR DESIGNER Nunu Carmen RN - 01/10/2013 3:56 AM CST Pt was seen earlier return of lower abdominal pain 11/14. DENTIAL INTERIOR DESIGNER documented in this encounter Miscellaneous Notes Plan of Care - Pablo Dias RN - 01/10/2013 8:00 PM CST Problem: IP GENERAL POC-ADULT,OB,BEHAVIORAL FVCPM Goal: Individualization/Patient-Specific Goal (Adult,OB,Behavioral The patient and/or their roofing sales representative will achieve their patient-specific goals [...] Pt. Will go home with oxycodone prescription. DENTIAL INTERIOR DESIGNER Plan of Care - Pablo Dias RN - 01/10/2013 6:50 PM CST Problem: IP GENERAL POC-ADULT,OB,BEHAVIORAL FVCPM Goal: Individualization/Patient-Specific Goal (Adult,OB,Behavioral The patient and/or their roofing sales representative will achieve their patient-specific goals [...] review provider orders for any additional goals. DENTIAL INTERIOR DESIGNER Plan of Care - Lynette Arshad RN [...] review provider orders for any additional goals. DENTIAL INTERIOR DESIGNER Pharmacy-Admission Medication History - Chelsie Patino RPH - 01/10/2013 9:14 AM CST Admission medication history interview status for this observation patient is complete. See [facility] admission navigator for allergy information, prior to admission medications and immunization status. Medication history interview source(s): Patient Medication history resources (including written lists, pill bottles, clinic record): None Primary pharmacy: [facility] [place], Changes made to PRINCIPAL NETWORK ENGINEER medication list: Added: none Deleted: no longer taking glucosamine Changed: updated doses/directions for all PRINCIPAL NETWORK ENGINEER medications Actions taken by pharmacist (provider contacted, etc): None Home medications brought in with patient: Patient does not currently have any home medications with him, except the prescriptions for [place], Zofran, and Motrin which were filled here yesterday after patient's ED visit. Prior to Admission medications Medication Sig Last Dose Taking? Auth Provider [place]-3 Fatty Acids (FISH OIL PO) Take 300 [...] More than a month No Reported, Patient DENTIAL INTERIOR DESIGNER Plan of Lynette Liang RN - 01/10/2013 [...] review provider orders for any additional goals. DENTIAL INTERIOR DESIGNER Plan of Lynette Liang RN - 01/10/2013 [...] review provider orders for any additional goals. DENTIAL INTERIOR DESIGNER Plan of [place] - Suze Carranza RN [...] review provider orders for any additional goals. DENTIAL INTERIOR DESIGNER documented in this encounter Plan of Treatment Not on filedocumented as of this encounter Procedures Procedure Name Priority Date/Time Associated Diagnosis Comme nts POTASSIUM STAT 01/10/2013 7:14 AM Results f or this RESIDENTIAL INTERIOR DESIGNER procedure are i n the results section. LACTIC ACID STAT 01/10/2013 4:00 AM Results f or this RESIDENTIAL INTERIOR DESIGNER procedure are i n the results section. BASIC METABOLIC Routine 01/10/2013 4:00 AM Result s for this PANEL RESIDENTIAL INTERIOR DESIGNER procedure are i n the results section. CBC WITH PLATELETS STAT 01/10/2013 4:00 AM Res ults for this RESIDENTIAL INTERIOR DESIGNER procedure are i n the results section. documented in this encounter Results Potassium (01/10/2013 7:14 AM RESIDENTIAL INTERIOR DESIGNER) athologist Signature Potassium 3.4 3.4 - 5.3 [facility] mmol/L [facility] Specimen Anatomical Collection Method Collection Time Receive d Time (Source) Location / / Volume Laterality Blood specimen 01/10/2013 7:14 AM 013 7:20 (specimen) RESIDENTIAL INTERIOR DESIGNER AM RESIDENTIAL INTERIOR DESIGNER Charlie Alexander MD LAB - BLOOD ORDERABLES Performing Organization Address City/State/ZIP Code Phon e Number [place] [address] [place] [address] [facility] (ABNORMAL) Basic metabolic panel (01/10/2013 4:00 AM RESIDENTIAL INTERIOR DESIGNER) athologist Signature Sodium 139 133 - 144 [place] mmol/L [facility] Potassium 3.0 (L) 3.4 - 5.3 [place] mmol/L [facility] Chloride 100 94 - 109 [place] mmol/L [facility] Carbon Dioxide 26 20 - 32 [place] mmol/L [facility] Anion Gap 13 6 - 17 [place] mmol/L [facility] Glucose 127 (H) 60 - 99 [place] mg/dL [facility] Urea Nitrogen 16 7 - 30 [place] mg/dL [facility] Creatinine 1.23 0.66 - REPLACED BY [facility] 1.25 mg/dL [facility] GFR Estimate 59 (L) >60 [place] mL/min/1.7 [facility] m2 [facility] GFR Estimate If 71 >60 [place] mL/min/1.[address] LAB Calcium 9.2 8.5 - 10.4 [place] mg/dL [facility] Specimen Anatomical Collection Method Collection Time Receive d Time (Source) Location / / Volume Laterality 01/10/2013 4:00 AM 3 4:13 RESIDENTIAL INTERIOR DESIGNER AM RESIDENTIAL INTERIOR DESIGNER Volodymyr Paulson MD LAB - BLOOD ORDERABLES Performing Organization Address City/[facility]/ZIP Code Phon e Number M [facility] [address] [place], [place] [address] [facility] LAB (ABNORMAL) CBC (platelets, no diff) (01/10/2013 4:00 AM RESIDENTIAL INTERIOR DESIGNER) Analysis Performed At Patho logist Time Signature WBC 6.5 4.0 - 11.0 [place] 10e9/L [facility] RBC Count 4.40 4.4 - 5.9 [place] 10e12/L [facility] Hemoglobin 13.0 (L) 13.3 - [place] 17.7 g/dL [facility] Hematocrit 37.7 (L) 40.0 - [place] 53.0 % [facility] MCV 86 78 - 100 [facility] LAB MCH 29.5 26.5 - [place] 33.0 pg [facility] MCHC 34.5 31.5 - [place] 36.5 g/dL [facility] RDW 13.5 10.0 - [place] 15.0 % [facility] Platelet Count 150 150 - 450 [place] 10e9L [facility] Specimen Anatomical Collection Method Collection Time Receive d Time (Source) Location / / Volume Laterality Blood specimen 01/10/2013 4:00 AM 013 4:13 (specimen) RESIDENTIAL INTERIOR DESIGNER AM RESIDENTIAL INTERIOR DESIGNER Volodymyr Paulson MD LAB - BLOOD ORDERABLES Performing Organization Address City/[facility]/ZIP Code Phon e Number [facility] [address] [place], [place] [address] [facility] Lactic acid (01/10/2013 4:00 AM RESIDENTIAL INTERIOR DESIGNER) P athologist Signature Lactic Acid 1.1 0.7 - 2.1 [place] mmol/L [facility] Specimen Anatomical Collection Method Collection Time Receive d Time (Source) Location / / Volume Laterality Blood specimen 01/10/2013 4:00 AM 013 4:13 (specimen) RESIDENTIAL INTERIOR DESIGNER AM RESIDENTIAL INTERIOR DESIGNER Volodymyr Paulson MD LAB - BLOOD ORDERABLES Performing Organization Address City/State/ZIP Code Phon e Number M [facility] [address] [place], [place] [address] [facility] documented in this encounter Visit Diagnoses [...] NaCl + New Bag 01/10/2013 5:30 PM RESIDENTIAL INTERIOR DESIGNER 75 mL/hr KCl 20 mEq/L at 75 mL/hr, Intravenous, CONTINUOUS, Change to saline lock when PO well tolerated., Starting on Sun01/10/13 at 0630, Until Sun01/10/13 at 2237 Rate/Dose Change 01/10/2013 10:16 AM RESIDENTIAL INTERIOR DESIGNER 75 mL/hr Rate/Dose Verify 01/10/2013 7:31 AM RESIDENTIAL INTERIOR DESIGNER 125 mL/hr HYDROmorphone (PF) (DILAUDID) injection 0.5 Given 01/10/2013 4:16 AM RESIDENTIAL INTERIOR DESIGNER 0.5 mg mg 0.5 mg, Intravenous, ONCE, On Sun01/10/13 at 0415, For 1 dose metoclopramide (REGLAN) injection 10 mg Given 01/10/2013 4:30 AM RESIDENTIAL INTERIOR DESIGNER 10 mg 10 mg, Intravenous, ONCE, On Sun01/10/13 at 0430, For 1 dose, Avoid use if patient has full bowel obstruction or perforation. morphine (PF) injection 4 mg Given 01/10/2013 5:09 AM RESIDENTIAL INTERIOR DESIGNER 4 mg 4 mg, Intravenous, ONCE, On Sun01/10/13 at 0515, For 1 dose omeprazole (priLOSEC) capsule 40 mg Given 01/10/2013 12:35 PM RESIDENTIAL INTERIOR DESIGNER 40 mg 40 mg, Oral, DAILY, First dose on Sun01/10/13 at 0800 ondansetron (ZOFRAN) injection 4 mg Given 01/10/2013 4:16 AM RESIDENTIAL INTERIOR DESIGNER 4 mg 4 mg, Intravenous, ONCE, Administer over 2-5 Minutes, On Sun01/10/13 at 0415, For 1 dose potassium chloride SA (K-DUR,KLOR-CON M) CR Given 01/10/2013 5:07 AM RESIDENTIAL INTERIOR DESIGNER 40 mEq tablet 40 mEq 40 mEq, Oral, ONCE, On Sun01/10/13 at 0500, For 1 dose, DO NOT CRUSH. sodium chloride (PF) 0.9% PF flush 3 mL Given 01/10/2013 6:49 AM RESIDENTIAL INTERIOR DESIGNER 3 mLs 3 mL, Intravenous, EVERY 8 HOURS, First dose on Sun01/10/13 at 0630, And Q1H PRN, to lock peripheral IV dormant line. sodium chloride 0.9 % BOLUS New Bag 01/10/2013 4:15 AM RESIDENTIAL INTERIOR DESIGNER 1,000 m Ls 1000 mL/hr 1,000 mL Intravenous, 1,000 mL, ONCE, at 1,000 mL/hr, Administer over 1 Hours, On Sun01/10/13 at 0415, For 1 dose documented in this encounter Active and Recently Administered Medications Times are shown in RESIDENTIAL INTERIOR DESIGNER. Scheduled Medication Order 01/08/2013 01/09/2013 01/10/2013 HYDROmorphone [...] 0621 documented in this encounter Care Teams Bass Fisher Relationship Specialty Start Date End Date Nasir Velazquez MD PCP - General 02/18/99 10/06/13 [place] [id number] [place] [address] documented as of this encounter
--- OUTSIDE RECORDS SUMMARY | 2021-11-07 15:43 | XMS_ITS | Encounter Summary ---
:1945 Author Organization [place] Address [facility] 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
--- OUTSIDE RECORDS SUMMARY | 2021-11-07 15:43 | XMS_ITS | Encounter Summary ---
:1945 Author Organization [place] Address [facility] [place] [address] Care Team Providers Name Role Phone Nasir Velazquez MD Primary Care Provider [phone] Reason for Visit SOTO Physical Therapy (Routine) - Closed Specialty Diagnoses / Procedures Referred By Contact Refer red To Contact Tony Brizuela MD ZZ [facility] [address] [place], [place] [phone] [place] [address] Phone: Fax: Referral ID Status Reason Start Date Expiration Date Visits V isits Requested Authorized SOTO/HP/SPINE Closed 02/12/2012 02/04/2013 20 18 Encounter Details Date Type Department Care Team Description 02/14/2012 Therapy Visit [place] for Enrique Blum PT Neck pain (Primary Athletic Medicine - SOTO SHANEL LE Dx) [place] [facility] [address] [place] [address] 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 TE MORTGAGE UNDERWRITER documented in this encounter Plan of Treatment Not on filedocumented as of this encounter Procedures Procedure Name Priority Date/Time Associated Diagnosis Comme [facility] THERAPEUTIC Routine 02/14/2012 2:12 PM REMOTE MORTGAGE UNDERWRITER Neck pain ACTIVITIES documented in this encounter Visit Diagnoses Diagnosis Neck pain - Primary Cervicalgia documented in this encounter Care Teams Airplane Gas Tank Liner Assembler Relationship Specialty Start Date End Date Nasir Velazquez MD PCP - General 02/18/99 10/06/13 [facility] [address] [place] [address] documented as of this encounter
--- OUTSIDE RECORDS SUMMARY | 2021-11-07 15:43 | XMS_ITS | Encounter Summary ---
:1945 Author Organization [place] Address [address] [place] [address]. 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
--- OUTSIDE RECORDS SUMMARY | 2021-11-07 15:43 | XMS_ITS | Encounter Summary ---
:1945 Author Organization [place] Address [address] [facility] [place] [address] Care Team Providers Name Role Phone Nasir Velazquez MD Primary Care Provider [phone] Reason for Visit Reason Comments Abdominal Pain Encounter Details Date Type Department Care Team Description 01/09/2013 Emergency [facility] Mckay Lizama Abdomina l pain, other [facility] MD [place] specified site [address] [facility] EMERGENCY PHYSICIANS (Primary Dx) [place], [place] [address] [address] [facility] [phone] [place], [place] [address] (Wo rk) Social History [...] at Date Recorded Male 01/15/2018 11:39 PM VB DEVELOPER documented as of this encounter Last Filed Vital Signs Vital Sign Reading Time Taken Comments Blood Pressure 141/84 01/09/2013 8:15 PM VB DEVELOPER Pulse - - Temperature 36.2 ??C (97.1 ??F) 01/09/2013 5:34 PM VB DEVELOPER Respiratory Rate 18 01/09/2013 6:30 PM VB DEVELOPER Oxygen Saturation 97% 01/09/2013 7:00 PM VB DEVELOPER Inhaled Oxygen Concentration - - Weight - - Height - - Body Mass Index - - documented in this encounter Discharge Instructions Discharge InstructionsMckay Lizama MD - 01/09/2013 8:24 PM VB DEVELOPER Discharge Instructions Abdominal Pain Abdominal pain can [...] directed by your doctor today. Before using [id number] medications, ask your doctor and make sure [...] or if there is anythingthat worries you. DEVELOPER documented in this encounter Medications at Time [...] Hyperlipidemia LDL goal <130 fluticasone (FLONASE) 50 [place] 1-2 sprays 1 Package 3 03/2101/10/2013 MCG/ACT [...] PM CST Bladder scan 214ml post void. DEVELOPER Mckay Lizama MD - 01/09/2013 5:38 PM [...] patient was discharged with prescriptions for Ibuprofen, [place], and Zofran. Findings and plan explained to [...] to me. Mckay Lizama MD 01/12/13 1417 DEVELOPER documented in this encounter Miscellaneous Notes Initial Assessments - Bebeto, Non-Provider - 01/15/2013 1:12 PM CST DEVELOPER documented in this encounter Plan of Treatment Not on filedocumented as of this encounter Procedures Procedure Name Priority Date/Time Associated Comments Diagnosis ROUTINE UA WITH STAT 01/09/2013 7:33 PM Result s for this MICROSCOPIC VB DEVELOPER procedure are i n the results section. CT ABDOMEN PELVIS W STAT 01/09/2013 7:23 PM Re sults for this CONTRAST VB DEVELOPER procedure are i n the results section. CBC WITH PLATELETS & STAT 01/09/2013 5:55 PM R esults for this DIFFERENTIAL VB DEVELOPER procedure are i n the results section. LIPASE STAT 01/09/2013 5:55 PM Results f or this VB DEVELOPER procedure are i n the results section. LACTIC ACID STAT 01/09/2013 5:55 PM Results f or this VB DEVELOPER procedure are i n the results section. HEPATIC FUNCTION STAT 01/09/2013 5:55 PM Resul ts for this PANEL VB DEVELOPER procedure are i n the results section. CRP INFLAMMATION STAT 01/09/2013 5:55 PM Resul ts for this VB DEVELOPER procedure are i n the results section. BASIC METABOLIC PANEL STAT 01/09/2013 5:55 PM Results for this VB DEVELOPER procedure are i n the results section. documented in this encounter Results UA with Microscopic (01/09/2013 7:33 PM VB DEVELOPER) [facility] Method Time Signature Color Urine Light Yellow [facility] Appearance Urine Clear [facility] Glucose Urine Negative NEG mg/dL [facility] Bilirubin Urine Negative NEG [facility] Ketones Urine Negative NEG mg/dL [facility] Specific [place] 1.018 1.003 - [place] Urine 1.035 [facility] Blood Urine Negative NEG [facility] pH Urine 6.5 5.0 - 7.0 [place] pH [facility] Protein Albumin Negative NEG mg/dL [facility] Urobilinogen Normal 0.0 - 2.0 [place] mg/dL mg/dL [facility] Nitrite Urine Negative NEG [facility] Leukocyte Negative NEG [place] Esterase Urine [facility] Source Midstream [facility] WBC Urine <1 0 - 2 [facility] RBC Urine 2 0 - 2 [facility] Specimen Anatomical Collection Method Collection Time Receive d Time (Source) Location / / Volume Laterality Urine specimen URINE SPECIMEN 01/09/2013 7:33 PM 01/09 7:35 (specimen) OBTAINED BY CLEAN VB DEVELOPER PM VB DEVELOPER CATCH PROCEDURE / Unknown Mckay Lizama MD LAB - URINE ORDERABLES Performing Organization Address City/State/ZIP Code Phon e Number [facility] [address] [place], [place] [address] [facility] CT Abdomen Pelvis w Contrast (01/09/2013 7:23 PM VB DEVELOPER) Anatomical Region Laterality Modality Abdomen/Pelvis, SUBRAD CT BODY, UMP CT ABDOMEN PELVIS Computed Tomography Specimen (Source) Anatomical Location Collection Method / Collectio n Time Received Time / Laterality Volume Impressions 01/09/2013 7:40 PM VB DEVELOPER IMPRESSION: Colonic diverticulosis with no evidence of diverticulitis. ?? LC JIMÉNEZ MD Narrative 01/09/2013 7:[address] ABDOMEN AND PELVIS WITH CONTRAST ??01/09/2013 [...] ORDERABLES (ABNORMAL) CRP inflammation (01/09/2013 5:55 PM VB DEVELOPER) Patholo gist Method Time Signature CRP Inflammation 8.4 (H) 0.0 - 8.0 [place] mg/L [facility] Specimen Anatomical Collection Method Collection Time Receive d Time (Source) Location / / Volume Laterality Blood specimen 01/09/2013 5:55 PM 013 6:03 (specimen) VB DEVELOPER PM VB DEVELOPER Mckay Lizama MD LAB - BLOOD ORDERABLES Performing Organization Address City/[facility]/ZIP Code Phon e Number [facility] [address], [place] [address] [phone] LAB Lipase (01/09/2013 5:55 PM VB DEVELOPER) athologist Signature Lipase 159 20 - 250 [facility] U/L [facility] Specimen Anatomical Collection Method Collection Time Receive d Time (Source) Location / / Volume Laterality Blood specimen 01/09/2013 5:55 PM 013 6:03 (specimen) VB DEVELOPER PM VB DEVELOPER Mckay Lizama MD LAB - BLOOD ORDERABLES Performing Organization Address City/[facility]/ZIP [facility] Phon e Number [facility] [address], [place] [address] [phone] [place] [address] LAB Lactic acid (01/09/2013 5:55 PM VB DEVELOPER) athologist Signature Lactic Acid 0.9 0.7 - 2.1 [place] mmol/L [facility] Specimen Anatomical Collection Method Collection Time Receive d Time (Source) Location / / Volume Laterality Blood specimen 01/09/2013 5:55 PM 013 6:03 (specimen) VB DEVELOPER PM VB DEVELOPER Mckay Lizama MD LAB - BLOOD ORDERABLES Performing Organization Address City/[facility] Phon e Number [facility] [address] [place], [place] [address] [address] [phone] [place] [address] LAB Hepatic panel (01/09/2013 5:55 PM VB DEVELOPER) athologist Signature Bilirubin 0.0 0.0 - 0.3 [place] Conjugated mg/dL [facility] Bilirubin Delta 0.1 0.0 - 0.4 [place] mg/dL [facility] Bilirubin Total 0.7 0.2 - 1.3 [place] mg/dL [facility] Albumin 4.5 3.3 - 4.9 [place] g/dL [facility] Protein Total 7.8 6.8 - 8.8 [place] g/dL [facility] Alkaline 102 40 - 150 [place] Phosphatase U/L [facility] ALT 49 0 - 70 U/L [facility] AST 34 0 - 45 U/L [facility] Specimen Anatomical Collection Method Collection Time Receive d Time (Source) Location / / Volume Laterality Blood specimen 01/09/2013 5:55 PM 013 6:03 (specimen) VB DEVELOPER PM VB DEVELOPER Mckay Lizama MD LAB - BLOOD ORDERABLES Performing Organization Address City/State/ZIP Code Phon e Number [facility] [address], [place] [address] [facility] (ABNORMAL) Basic metabolic panel (01/09/2013 5:55 PM VB DEVELOPER) P athologist Signature Sodium 138 133 - 144 [place] mmol/L [facility] Potassium 3.3 (L) 3.4 - 5.3 [place] mmol/L [facility] Chloride 100 94 - 109 [place] mmol/L [facility] Carbon Dioxide 28 20 - 32 [place] mmol/L [facility] Anion Gap 11 6 - 17 [place] mmol/L [facility] Glucose 96 60 - 99 [place] mg/dL [facility] Urea Nitrogen 15 7 - 30 [place] mg/dL [facility] Creatinine 1.02 0.66 - [facility] 1.25 mg/dL [facility] GFR Estimate 73 >60 [place] mL/min/1.[address] [place] [address] LAB GFR Estimate If 88 >60 [place] Black mL/min/1.[address] [place] [address] LAB Calcium 9.3 8.5 - 10.4 [place] mg/dL [facility] Specimen Anatomical Collection Method Collection Time Receive d Time (Source) Location / / Volume Laterality Blood specimen 01/09/2013 5:55 PM 013 6:03 (specimen) VB DEVELOPER PM VB DEVELOPER Mckay Lizama MD LAB - BLOOD ORDERABLES Performing Organization Address City/State/ZIP Code Phon e Number [facility] [address] [place], [place] [address] HOSPITAL [facility] (ABNORMAL) CBC with platelets differential (01/09/2013 5:55 PM VB DEVELOPER) [facility] gist Method Time Signature WBC 8.0 4.0 - [place] 11.0 [facility] 10e9[facility] RBC Count 4.61 4.4 - 5.9 [place] 10e12/L [facility] Hemoglobin 13.6 13.3 - [place] 17.7 g/dL [facility] Hematocrit 39.4 (L) 40.0 - [place] 53.0 % [facility] MCV 86 78 - 100 [place] fl [facility] MCH 29.5 26.5 - [place] 33.0 pg [facility] MCHC 34.5 31.5 - [place] 36.5 g/dL [facility] RDW 13.4 10.0 - [place] 15.0 % [facility] Platelet Count 168 150 - 450 [place] 10e9[facility] Diff Method Automated [facility] % Neutrophils 74.1 % [facility] % Lymphocytes 17.2 % [facility] % Monocytes 7.5 % [facility] % Eosinophils 0.6 % [facility] % Basophils 0.3 % [facility] % Immature 0.3 % [place] Granulocytes [facility] Absolute 5.9 1.6 - 8.3 [place] Neutrophil 10e9/L [facility] Absolute 1.4 0.8 - 5.3 [place] Lymphocytes 10e9/L [facility] Absolute 0.6 0.0 - 1.3 [place] Monocytes 10e9/[facility] Absolute 0.1 0.0 - 0.7 [place] Eosinophils [address] [place] [address] LAB Absolute 0.0 0.0 - 0.2 [place] Basophils [address] [place] [address] LAB Abs Immature 0.0 0 - 0.4 [place] Granulocytes [address] [place] [address] LAB Specimen Anatomical Collection Method Collection Time Receive d Time (Source) Location / / Volume Laterality Blood specimen 01/09/2013 5:55 PM 013 6:03 (specimen) VB DEVELOPER PM VB DEVELOPER Mckay Lizama MD LAB - BLOOD ORDERABLES Performing Organization Address City/State/ZIP Code Phon e Number [facility] [address] [place], [place] [address] [facility] documented in this encounter Visit Diagnoses Diagnosis Abdominal pain, other specified site - P rimary documented in this encounter Administered Medications Inactive Administered Medications - up to 3 most recent administrations Medication Order MAR Action Action Date Dose Rate Site iohexol (OMNIPAQUE) 140 mg/mL Given 01/09/2013 6:39 PM VB DEVELOPER 25 mL s solution 25 mL 25 mL, Oral, EVERY 30 MIN, First dose on Jenn 01/09/13 at 1800, For 2 doses Given 01/09/2013 5:52 PM VB DEVELOPER 25 mLs iopamidol (ISOVUE-370) 76% solution 500 mL Given 01/09/2013 7:21 PM VB DEVELOPER 94 mLs 500 mL, Intravenous, ONCE, On Jenn 01/09/13 at 1915, For 1 dose ketorolac (TORADOL) injection 15 mg Given 01/09/2013 5:59 PM VB DEVELOPER 15 mg 15 mg, Intravenous, ONCE, On Jenn 01/09/13 at 1800, For 1 dose, Do not give within 6 hours of Ibuprofen. morphine (PF) injection 4 mg Given 01/09/2013 6:00 PM VB DEVELOPER 4 mg 4 mg, Intravenous, EVERY 15 MIN PRN, moderate to severe pain, Starting on Jenn 01/09/13 at 1745, For 3 doses ondansetron (ZOFRAN) injection 4 mg Given 01/09/2013 5:58 PM VB DEVELOPER 4 mg 4 mg, Intravenous, EVERY 30 MIN PRN, nausea, vomiting, Administer over 2-5 Minutes, Starting on Jenn 01/09/13 at 1745, For 3 doses, May repeat in 30 minutes as needed, up to 3 doses. sodium chloride 0.9 % BOLUS New Bag 01/09/2013 5:57 PM VB DEVELOPER 1,000 m Ls 1000 mL/hr 1,000 mL Intravenous, 1,000 mL, ONCE, at 1,000 mL/hr, Administer over 1 Hours, On Jenn 01/09/13 at 1800, For 1 dose sodium chloride 0.9 % BOLUS 1,000 mL New Bag 01/09/2013 7:20 PM VB DEVELOPER 64 mLs Intravenous, 1,000 mL, ONCE, On Jenn 01/09/13 at 1915, For 1 dose documented in this encounter Active and Recently Administered Medications Times are shown in VB DEVELOPER. Scheduled Medication Order 01/07/2013 01/08/2013 01/09/2013 iohexol [...] doses. documented in this encounter Care Teams Car Repairer Relationship Specialty Start Date End Date Nasir Velazquez MD PCP - General 02/18/99 10/06/13 [facility] [address] [place] [address] documented as of this encounter
--- OUTSIDE RECORDS SUMMARY | 2021-11-07 15:43 | XMS_ITS | Encounter Summary ---
:1945 Author Organization [place] Address [address] [facility] 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 documented as of this encounter Last Filed Vital Signs Vital Sign Reading Time Taken Comments Blood Pressure 130/86 03/05/2012 3:52 PM TOOL AND MACHINE MAINTAINER Pulse 75 03/05/2012 3:52 PM TOOL AND MACHINE MAINTAINER Temperature 37.2 ??C (98.9 ??F) 03/05/2012 3:52 PM TOOL AND MACHINE MAINTAINER Respiratory Rate - - Oxygen Saturation 96% 03/05/2012 3:52 PM TOOL AND MACHINE MAINTAINER Inhaled Oxygen Concentration - - Weight 92.1 kg (203 lb) 03/05/2012 3:52 PM TOOL AND MACHINE MAINTAINER Height 175.3 cm (5' 9) 03/05/2012 3:52 PM TOOL AND MACHINE MAINTAINER Body Mass Index 29.98 03/05/2012 3:52 PM TOOL AND MACHINE MAINTAINER documented in this encounter Progress Notes Raghavendra [...] Consider testing for gout if not improving. AND MACHINE MAINTAINER documented in this encounter Nursing Notes 03/05/2012 [...] completed using cuff size: large Alexandria Garcia SHEET METAL ERECTOR documented in this encounter Plan of Treatment Not on filedocumented as of this encounter Visit Diagnoses Diagnosis Olecranon bursitis - Primary documented in this encounter Care Teams Business Administrator Relationship Specialty Start Date End Date Nasir Velazquez MD PCP - General 02/18/99 10/06/13 [place] [address] [place] [address] documented as of this encounter
--- OUTSIDE RECORDS SUMMARY | 2021-11-07 15:43 | XMS_ITS | Encounter Summary ---
:1945 Author Organization [place] Address [facility] 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 Last OV:06/06/2011 Last Refill:08/18/2011 Martha Dias Qualitative Field Project Manager Telephone Encounter - Martha Dias - 05/28/2012 8:45 AM CDT Message from [employer] AGt: Original authorizing provider: Nasir Velazquez MD, MD Terry Montero would like a refill of the following medications: simvastatin (ZOCOR) 40 MG tablet [Nasir Velazquez MD, MD] Preferred pharmacy: [facility], [id number] [place] [address] Comment: documented in this encounter Plan of Treatment Not on filedocumented as of this encounter Visit Diagnoses Diagnosis Hyperlipidemia LDL goal <130 - Primary Other and unspecified hyperlipidemia documented in this encounter Care Teams Quality Assurance Engineer Relationship Specialty Start Date End Date Nasir Velazquez MD PCP - General 02/18/99 10/06/13 [facility] [address] [place] [address] documented as of this encounter
--- OUTSIDE RECORDS SUMMARY | 2021-11-07 15:43 | XMS_ITS | Encounter Summary ---
:1945 Author Organization [place] Address 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 [place] [facility] Albumin Urine Unable to 0 - 17 [facility] mg/g Cr calculate mg/g Cr [facility] Specimen Anatomical Collection Method Collection Time Receive d Time (Source) Location / / Volume Laterality Urine specimen 08/02/2012 10:31 3 (specimen) AM CDT 10:32 AM CDT Nasir Velazquez MD LAB - URINE ORDERABLES Performing Organization Address City/State/ZIP Code Phon e Number [facility] [address] [place], [place] [id number] [place] [address] LABS (ABNORMAL) Lipid panel reflex to direct LDL (08/02/2012 10:25 AM CDT) P athologist Signature Cholesterol 164 0 - 200 [facility] [place] mg/dL CLINIC LAB Comment: LDL Cholesterol is the primary guide to therapy. The NCEP recommends further evaluation of: patients with cholesterol greater than 200 mg/dL if additional risk facto rs are present, cholesterol greater than 240 mg/dL, triglycerides greater than 1 50 mg/dL, or HDL less than 40 mg/dL. Triglycerides 209 (H) 0 - 150 mg/dL [facility] HDL Cholesterol 40 40 - 110 mg/dL [facility] [facility] LDL Cholesterol Calculated 82 0 - 129 mg/dL [facility] Comment: LDL Cholesterol is the primary guide to therapy: LDL-cholesterol goal in high risk patients is <100 mg/dL and in very high risk patients is <70 mg/dL. VLDL-Cholesterol 42 (H) 0 - 30 mg/dL [facility] Cholesterol/HDL Ratio 4.1 0.0 - 5.0 [facility] Specimen Anatomical Collection Method Collection Time Receive d Time (Source) Location / / Volume Laterality Blood specimen 08/02/2012 10: 3 (specimen) AM CDT 10:26 AM CDT Nasir Velazquez MD LAB - BLOOD ORDERABLES Performing Organization Address City/[facility] Code Phon e Number [facility] [address] [facility] [place] [address] [phone] [facility] [address] [place] [address] Basic metabolic panel (08/02/2012 10:25 AM CDT) P athologist Signature Sodium 142 133 - 144 [facility] [place] mmol/L CLINIC LAB Potassium 3.7 3.4 - 5.3 [facility] [place] mmol/L [facility]IC LAB Chloride 103 94 - 109 [facility] [place] mmol/L [facility]IC LAB Carbon Dioxide 26 20 - 32 [facility] [place] mmol/L [facility]IC LAB Anion Gap 13 6 - 17 [facility] mmol/L [facility] LAB Glucose 94 60 - 99 [facility] mg/dL [facility]IC LAB Urea Nitrogen 19 7 - 30 [facility] mg/dL [facility]IC LAB Creatinine 1.02 0.66 - [facility] 1.25 mg/dL CLINIC LAB GFR Estimate 73 >60 [facility] [place] mL/min/1.7 CLINIC LAB m2 GFR Estimate If 88 >60 [facility] Black mL/min/1.7 [facility] m2 Calcium 9.2 8.5 - 10.4 [facility] [place] mg/dL CLINIC LAB Specimen Anatomical Collection Method Collection Time Receive d Time (Source) Location / / Volume Laterality Blood specimen 08/02/2012 10: 3 (specimen) AM CDT 10:26 AM CDT Nasir Velazquez MD LAB - BLOOD ORDERABLES Performing Organization Address City/[facility]/ZIP [facility] Phon e Number [facility] [address] [place] [address] [phone] [facility] [address] [place] [address] [phone] (ABNORMAL) CBC with platelets (08/02/2012 10:25 AM CDT) Analysis Performed At Patho logist Time Signature WBC 5.2 4.0 - 11.0 [facility] 10e9/L [facility] RBC Count 4.45 4.4 - 5.9 [facility] 10e12/L [facility] Hemoglobin 13.2 (L) 13.3 - [facility] 17.7 g/dL [facility] Hematocrit 38.1 (L) 40.0 - [facility] 53.0 % [facility] MCV 86 78 - 100 [facility] LAB MCH 29.7 26.5 - [facility] 33.0 pg [facility] MCHC 34.6 31.5 - [place] 36.5 g/dL [facility] RDW 13.2 10.0 - [facility] 15.0 % [facility] Platelet Count 159 150 - 450 [facility] 10e9/L [facility] Specimen Anatomical Collection Method Collection Time Receive d Time (Source) Location / / Volume Laterality Blood specimen 08/02/2012 10:25 3 (specimen) AM CDT 10:26 AM CDT Nasir Velazquez MD LAB - BLOOD ORDERABLES Performing Organization Address City/State/ZIP Code Phon e Number [facility] [address] [facility] [place] [address] [facility] [address] [place], [place] [address] documented in this encounter Visit Diagnoses Diagnosis Hypertension goal BP (blood pressure) < 140/90 Unspecified essential hypertension Hyperlipidemia LDL goal <130 Other and unspecified hyperlipidemia documented in this encounter Care Teams Biological Lab Technician Relationship Specialty Start Date End Date Nasir Velazquez MD PCP - General 02/18/99 10/06/13 [facility] [address] [place] [address] documented as of this encounter
--- OUTSIDE RECORDS SUMMARY | 2021-11-07 15:43 | XMS_ITS | Encounter Summary ---
:1945 Author Organization [place] Address [address] [facility] [place] [address] Care Team Providers Name Role Phone Nasir Velazquez MD Primary Care Provider [phone] Reason for Visit Reason Comments Physical labs done last week. Encounter Details Date Type Department Care Team Description 08/07/2012 Office Visit [facility] Nasir Velazquez Hypert ension goal BP (blood pressure) < 140/90 (Primary Dx); Clinic Herman MD Geraldo Esophageal reflux; [address] [facility] NICOBARRY HYPERTROPHY of PROSTATE ; [place], [place] CLINIC Routine general medical examination at a health care facility; [phone] [address] Anemia; [phone] Special screening for malignant neoplasm of prostate; [place], [place] Hyperlipid emia LDL goal <130; [address] Trochanteric bursitis Social History Tobacco Use Types [...] at Date Recorded Male 01/15/2018 11:39 PM FORESTRY AID documented as of this encounter Last Filed [...] decision to screen be made on a ynad-ft-rwvd basis once yearly. Please contact the clinic [...] Taking Niaspan/niacin? No ?? Other medications/supplements?: Fish oil/[place] 3, dose 1000mg without side effects Hypertension [...] nor >7 drinks per week. Last PSA: [employer] PSA Date Value Range Status 12/31/2002 0.4 <0R=4.0 NG/ML Final PSA VALUES FROM DIFFERENT ASSAY METHODS CANNOT BE USED INTERCHANGEABLY. THIS ASSAY WAS PERFORMED USING THE [employer] CHEMILUMINESCENT METHOD. PSA Date Value Range Status 06/30/2010 0.59 0 - 4 ug/L Final Recent Labs Lab Test 08/02/12 1025 06/06/11 1115 CHOL 164 187 HDL 40 43 LDL 82 98 TRIG 209* 232* CHOLHDLRATIO 4.1 4.3 Reviewed orders with patient. Reviewed health maintenance and updated orders accordingly - Yes All Histories reviewed and updated in [facility]. ROS: C: NEGATIVE for fever, chills, [...] list, Allergies, and Medical/Social/Surgical histories reviewed in [facility] andupdated as appropriate. OBJECTIVE: BP 137/79 Pulse [...] fruits/vegetables and avoid sweets. 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 RBC'S SHOWED SLI GHT ANISOCYTOSIS.PLATELETS ANF WBC'S LOOKED NORMAL. ??K.K. Hematocrit 37.4 (L) 40.0 - 53.0 % [facility] MCV 85 78 - 100 fl [facility] MCH 29.9 26.5 - 33.0 pg [facility] MCHC 35.0 31.5 - 36.5 g/dL [facility] RDW 13.1 10.0 - 15.0 % [facility] Platelet Count 156 150 - 450 10e9/L [facility] Diff Method Automated Method [facility] % Neutrophils 53.3 % [facility] % Lymphocytes 35.4 % [facility] % Monocytes 9.6 % [facility] % Eosinophils 1.3 % [facility] % Basophils 0.4 % [facility] Absolute Neutrophil 2.4 1.6 - 8.3 10e9/L [facility] Absolute Lymphocytes 1.6 0.8 - 5.3 10e9/L [facility] Absolute Monocytes 0.4 0.0 - 1.3 10e9/L [facility] Absolute Eosinophils 0.1 0.0 - 0.7 10e9/L [facility] Absolute Basophils 0.0 0.0 - 0.2 10e9/L [facility] Specimen Anatomical Collection Method Collection Time Receive d Time (Source) Location / / Volume Laterality Blood specimen 08/07/2012 11:45 3 (specimen) AM CDT 12:21 PM CDT Nasir Velazquez MD LAB - BLOOD ORDERABLES Performing Organization Address City/State/[facility] Code Phon e Number [facility] [address] [facility] [place] [address] [facility] [address] [place], [place] [address] Prostate spec antigen screen (08/07/2012 11:45 AM CDT) P athologist Signature PSA 0.52 0 - 4 ug/L [facility] Specimen Anatomical Collection Method Collection Time Receive d Time (Source) Location / / Volume Laterality Blood specimen 08/07/2012 11:45 3 (specimen) AM CDT 11:47 AM CDT Nasir Velazquez MD LAB - BLOOD ORDERABLES Performing Organization Address City/[facility] Code Phon e Number [facility] [address] [place] [address] [facility] [address] [place] [address] Iron and iron binding capacity (08/07/2012 11:45 AM CDT) athologist Signature Iron 57 35 - 180 [facility] ug/dL [facility] Iron Binding 301 240 - 430 [place] Cap ug/dL [facility] Iron Saturation 19 15 - 46 % [place] Index [facility] Specimen Anatomical Collection Method Collection Time Receive d Time (Source) Location / / Volume Laterality Blood specimen 08/07/2012 11:45 3 (specimen) AM CDT 11:47 AM CDT Nasir Velazquez MD LAB - BLOOD ORDERABLES Performing Organization Address [facility] Phon e Number [facility] [address] [place] [address] [facility] [address] [place] [address] Ferritin (08/07/2012 11:45 AM CDT) athologist Signature Ferritin 116 20 - 300 [place] [facility] ng/mL CLINIC LAB Specimen Anatomical Collection Method Collection Time Receive d Time (Source) Location / / Volume Laterality Blood specimen 08/07/2012 11:45 3 (specimen) AM CDT 11:47 AM CDT Nasir Velazquez MD LAB - BLOOD ORDERABLES Performing Organization Address [facility] Phon e Number [facility] [address] [place] [address] [facility] [address] [place] [address] Folate (08/07/2012 11:45 AM CDT) athologist Signature Folate >24.0 >3.3 ng/mL [facility] Interp: ??>5.4 ng/mL = Normal CAMPUS LABS Specimen Anatomical Collection Method Collection Time Receive d Time (Source) Location / / Volume Laterality Blood specimen 08/07/2012 11:45 3 (specimen) AM CDT 11:47 AM CDT Nasir Velazquez MD LAB - BLOOD ORDERABLES Performing Organization Address City/[facility] Code Phon e Number [facility] [address] [place] [address] [facility] Vitamin B12 (08/07/2012 11:45 AM CDT) P athologist Signature Vitamin B12 647 >210 pg/mL [facility] Comment: Interp: [phone] = Normal Specimen Anatomical Collection Method Collection Time Receive d Time (Source) Location / / Volume Laterality Blood specimen 08/07/2012 11:45 3 (specimen) AM CDT 11:47 AM CDT Nasir Velazquez MD LAB - BLOOD ORDERABLES Performing Organization Address City/State/ZIP Code Phon e Number [facility] [address] [place] [address] [facility] RETICULOCYTE COUNT (08/07/2012 11:45 AM CDT) Patholo gist Method Time Signature % Retic 0.9 0.5 - 2.0 [place] % [facility] Absolute 39.6 25 - 95 [place] Retic 10e9/L [facility] Retic Method Automated [facility] LAB Specimen Anatomical Collection Method Collection Time Receive d Time (Source) Location / / Volume Laterality Blood specimen 08/07/2012 11:45 3 (specimen) AM CDT 11:47 AM CDT Nasir Velazquez MD LAB - BLOOD ORDERABLES Performing Organization Address City/State/ZIP Code Phon e Number [place] [address] [address] [place], [place] [address] [facility] documented in this encounter Visit [...] region documented in this encounter Care Teams Lead Front End Developer Relationship Specialty Start Date End Date Nasir Velazquez MD PCP - General 02/18/99 10/06/[address] [facility] [address] [place] [address] documented as of this encounter
--- OUTSIDE RECORDS SUMMARY | 2021-11-07 15:43 | XMS_ITS | Encounter Summary ---
:1945 Author Organization [place] Address [address] [facility] [place] [address] Care Team Providers Name Role Phone Scottie Nicole MD Primary Care Provider [phone] Reason for Visit Auth/Cert - Closed Specialty Diagnoses / Procedures Referred By Contact Refer red To Contact Gastroenterology Diagnoses HX OF POLYPS Rh Endoscopy Procedures COLONOSCOPY [address] [place] [address] Phone: Fax: Referral ID Status Reason Start Date Expiration Date Visits Requ ested Visits Authorized [id number] Closed 1 1 Encounter Details Date Type Department Care Team Description 06/05/2013 Hospital Encounter [facility] Matthew Richardson , Endoscopy Pan SALDIVAR [address] [place], [place] GASTROINTESTINAL [address] [phone] [place], [place] [id number] (Wo rk) Social History Tobacco Use Types [...] AND CUTTER documented as of this encounter Last [...] needed, you may be told to take [id number] stool softeners. To help relieve pain, antispasmodic [...] the option of having surgery with you. [place] to [facility] Help keep your colon healthy with a diet that includes plenty of high-fiber fruits, vegetables, and whole grains. Drink plenty of liquids like water and juice. Your doctor may also recommend avoiding seeds and nuts. ?? [phone] [facility], [address] [place] [address]. All rights reserved. This information is not [...] in old age ??? C.A.D. Maternal Uncle [place] ??? Colon [place] Maternal Uncle ??? Prostatic [...] encounter Results COLONOSCOPY (06/05/2013 9:28 AM CDT) [facility] Method Time Signature COLONOSCOPY [facility] [...] ?oxygen saturations were monitored continuously. The ?[id number] was introduced through the anus ?and advanced [...] - Provider: Matthew Richardson MD) PRN, Starting [facility] 06/05/13 at 0927, moderate to severe pain, Intra -procedure midazolam (VERSED) injection (CANCELED) 0927 (Given - Provider: Matthew Richardson MD) PRN, Starting Jenn 06/05/13 at 0927, anxiety, Intra-procedure documented in this encounter Care Teams Governor Assembler Hydraulic Relationship Specialty Start Date End Date Scottie Nicole MD PCP - General 02/18/99 10/06/13 [place] [address] [place] [address] documented as of this encounter
--- OUTSIDE RECORDS SUMMARY | 2021-11-07 15:44 | XMS_ITS | Encounter Summary ---
:1945 Author Organization [place] Address [facility] [place] [address] Care Team Providers Name Role Phone Nasir Velazquez MD Primary Care Provider [phone] Reason for Referral Specialty Diagnoses / Procedures Referred By Contact Refer red To Contact Nasir Velazquez And MD zarina [facility] [address] [place], [place] [address] Referral ID Status Reason Start Date Expiration Date Visits Requ ested Visits Authorized Reason for Visit Reason Comments Physical pt Pre Visit Planning - Done 07/01/10 HJ Encounter Details Date Type Department Care Team Description 07/08/2010 Office Visit [facility] Nasir Velazquez general medical examination at a health care facility (Primary Dx); Clinic Candy Chow MD HYPERTROPHY of PROSTATE ; [address] [facility] SHA[address] NUÑEZ ESOPHAGEAL REFLUX; [place], [place] CLINIC Vaccin strep pneumoniae; [address] [place] [address] S[place] Hypertension goal BP (blood pressure) < 140/90; [phone] Trochanteric bursitis; [place], [place] Advance ca re planning; [address] Hyperlipidemia LDL goal <130 Social History Tobacco [...] at Date Recorded Male 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 ROS: C: NEGATIVE for fever, chills, [...] hyperlipidemia documented in this encounter Care Teams Retrimmer Relationship Specialty Start Date End Date Nasir Velazquez MD PCP - General 02/18/99 10/06/13 [facility] [address] [place] [address] documented as of this encounter
--- OUTSIDE RECORDS SUMMARY | 2021-11-07 15:44 | XMS_ITS | Encounter Summary ---
:1945 Author Organization [place] Address [facility] [place] [address] Care Team Providers Name Role Phone Nasir Velazquez MD Primary Care Provider [phone] Reason for Referral - Closed Specialty Diagnoses / Procedures Referred By Contact Refer red To Contact Diagnoses Pain of left thumb Tony Brizuela MD [facility] MD [address] [facility] [address] [place], [place] [phone] Referral ID Status Reason Start Date Expiration Date Visits Requ ested Visits Authorized [id number] Closed 01/12/2012 07/10/2012 1 1 INFORMATICA DEVELOPER - Closed Specialty Diagnoses / Procedures Referred By Contact Refer red To Contact Diagnoses Neck pain Tony Brizuela MD [facility] ION [address] [facility] [address] [place], [place] [phone] Referral ID Status Reason Start Date Expiration Date Visits Requ ested Visits Authorized [id number] Closed 01/12/2012 07/10/2012 1 1 INFORMATICA DEVELOPER Reason for Visit Reason Comments Musculoskeletal Problem left hand pain Encounter Details Date Type Department Care Team Description 01/12/2012 Office Visit [facility] And Tony Brizuela Neck pain (Primary Dx); Orthopedic Care Stew Tellez MD Pain of left thumb [place] [facility]OP[facility] [address] [facility] [address] [place] [address] [address] [place], [place] [id number] [place] [address] [phone] (Wo rk) Social History Tobacco Use [...] at Date Recorded Male 01/15/2018 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 documented as of this encounter Last Filed Vital Signs Vital Sign Reading Time Taken Comments Blood Pressure 132/82 01/12/2012 12:55 PM ETL INFORMATICA DEVELOPER Pulse - - Temperature - - Respiratory Rate - - Oxygen Saturation - - Inhaled Oxygen Concentration - - Weight 88.9 kg (196 lb) 01/12/2012 12:55 PM ETL INFORMATICA DEVELOPER Height 176.5 cm (5' 9.5) 01/12/2012 12:55 PM ETL INFORMATICA DEVELOPER Body Mass Index 28.53 01/12/2012 12:55 PM ETL INFORMATICA DEVELOPER documented in this encounter Patient Instructions Patient InstructionsClem Fan - 01/12/2012 1:15 PM CST Please call [facility], to schedule your appointment if you have not heard from them in two business days Arrive 15 minutes early. If you need to cancel or change the appointment please call [facility], Please follow up in clinic as needed *Follow up as needed or as discussed with your care provider *See Chart Note for specific details INFORMATICA DEVELOPER documented in this encounter Progress Notes Tony [...] in old age ??? C.A.D. Maternal Uncle [place] ??? Colon [place] Maternal Uncle ??? Prostatic [place] Paternal Grandfather 84 ??? Prostatic [place] Other Cousin ??? Heart Brother stent - 66 ??? Prostatic [place] Brother no cancer, but a produre due reduce the prostate History Social History ??? Marital Status: Spouse Name: Karen Number of Children: 1 ??? Years of Education: 15 Occupational History ??? [employer],[address] [place] [address] Social History Main Topics ??? Smoking status: [...] James Brizuela MD Department of Orthopedic Surgery INFORMATICA DEVELOPER documented in this encounter Nursing Notes 01/12/2012 [...] limb documented in this encounter Care Teams Parachute Supervisor Relationship Specialty Start Date End Date Nasir Velazquez MD PCP - General 02/18/99 10/06/13 [facility] [address] [place] [address] documented as of this encounter
--- OUTSIDE RECORDS SUMMARY | 2021-11-07 15:44 | XMS_ITS | Encounter Summary ---
:1945 Author Organization [place] Address [address] [place] [address] Care Team Providers Name Role Phone Nasir Velazquez MD Primary Care Provider [phone] Reason for Visit Reason Onset Date Comments Patient Request 06/01/2011 Wanting to schedule for Bursa injections please phone. Encounter Details Date Type Department Care Team Description 06/01/2011 Telephone [facility] Nasir Velazquez t Request Clinic [place] MD Geraldo (Wanting to schedule [address] [facility] CLINIC for Bursa injections [place], [place] [address] [facility] please p tiara. ) [address] [facility] [phone] [place] [address] (Wo rk) Social History Tobacco [...] at Date Recorded Male 01/15/2018 11:39 PM [employer] documented as of this encounter Miscellaneous Notes Telephone Encounter - Florecita Graff - 06/06/2011 8:28 AM CDT LM for pt letting him know. Florecita Graff CMA Telephone Encounter - Pool Mays DPM - 06/02/2011 8:27 PM CDT Orders in EPIC. Would recommend f/u appt in the future or if the injections do not last as long as anticipated. Telephone Encounter - Radha Shahid - 06/01/2011 3:19 PM CDT Patient called back to advise the injections are ordered by Dr. Mays. I will route this messageto him. Telephone Encounter - Nasir Velazquez MD - 06/01/2011 3:17 PM CDT I have not seen this patient in close to one year, and do not know which Bursa he needs injections on. He did have Dr. Mays do some injections at some point, I believe. If it is for the same problem on the foot, I would recommend he get in touch with Dr. Mays's office again, however, he may need to be seen prior to the injections. Please inform patient. Telephone Encounter - Kae Gomez - 06/01/2011 3:13 PM CDT Nasir Bundy/Nurse: Terry is wanting to schedule for Bursa injections at the [facility]. Terry is looking to have them done on June 07 or . Please phone Terry at [phone]. FNA/Kae Gomez RN documented in this encounter Plan of Treatment Not on filedocumented as of this encounter Visit Diagnoses Diagnosis Arthralgia - Primary Pain in joint, site unspecified documented in this encounter Care Teams Ward Supervisor Relationship Specialty Start Date End Date Nasir Velazquez MD PCP - General 02/18/99 10/06/13 [facility] [address] [place] [address] documented as of this encounter
--- OUTSIDE RECORDS SUMMARY | 2021-11-07 15:44 | XMS_ITS | Encounter Summary ---
:1945 Author Organization [place] Address [facility] [place] [address] Care Team Providers Name Role Phone Nasir Velazquez MD Primary Care Provider [phone] Reason for Visit Auth/Cert - Closed Specialty Diagnoses / Procedures Referred By Contact Refer red To Contact Radiology Rh Xray [address] [place], [place] [address] Phone: Fax: Referral ID Status Reason Start Date Expiration Date Visits Requ ested Visits Authorized [id number] Closed 06/13/2011 12/10/2011 1 1 Encounter Details Date Type Department Care Team Description 06/14/2011 Hospital Encounter [facility] Pool Mays, Arthralgia [facility] DPM [address] [facility] [address] [address] [place], [place] [id number] (Wo rk) Social History Tobacco Use Types [...] at Date Recorded Male 01/15/2018 11:39 PM SPOUTER documented as of this encounter Last Filed [...] details and findings. Provider name: Kory Lang Data Entry Technician(s):None documented in this encounter Plan of Treatment [...] Sun06/14/11 at 1100, For 1 dose iopamidol ([id number]) 41% solution Given by Other 06/14/2011 12:15 [...] dose documented in this encounter Care Teams Node Js Developer Relationship Specialty Start Date End Date Nasir Velazquez MD PCP - General 02/18/99 10/06/13 [facility] [address] [place] [address] documented as of this encounter
--- OUTSIDE RECORDS SUMMARY | 2021-11-07 15:44 | XMS_ITS | Encounter Summary ---
:1945 Author Organization [place] Address [facility]0 [facility] 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
--- OUTSIDE RECORDS SUMMARY | 2021-11-07 15:44 | XMS_ITS | Encounter Summary ---
:1945 Author Organization [place] Address [address] 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 Poly Ibrahim RN. Telephone Encounter - Martha Dias - 08/10/2010 11:39 AM CDT Patient needs all refills from 07/08/2010 sent to [facility]. Patient can be reached at [phone]. Martha Dias Monument Installer documented in this encounter Plan of Treatment [...] facility documented in this encounter Care Teams Barn Manager Relationship Specialty Start Date End Date Nasir Velazquez MD PCP - General 02/18/99 10/06/13 [place] [address] [place] [address] documented as of this encounter
--- OUTSIDE RECORDS SUMMARY | 2021-11-07 15:44 | XMS_ITS | Encounter Summary ---
:1945 Author Organization [place] Address [address] 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
--- OUTSIDE RECORDS SUMMARY | 2021-11-07 15:44 | XMS_ITS | Encounter Summary ---
:1945 Author Organization [place] Address [address] [facility] [place] 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
--- OUTSIDE RECORDS SUMMARY | 2021-11-07 15:44 | XMS_ITS | Encounter Summary ---
:1945 Author Organization [place] Address [address] [place] [address] Care Team Providers Name Role Phone Nasir Velazquez MD Primary Care Provider [phone] Reason for Visit SOTO Occupational Therapy (Routine) - Closed Specialty Diagnoses / Procedures Referred By Contact Refer red To Contact Tony Brizuela MD [facility] [address] [place] [address] [address] [place], [place] [phone] [address] [place] [address] Phone: Referral ID Status Reason Start Date Expiration Date Visits Requ ested Visits Authorized SOTO/HP/HAND Closed 01/15/2012 02/05/2012 10 8 Encounter Details Date Type Department Care Team Description 01/22/2012 Therapy Visit [facility], Emperatriz Thumb pain (Primary Center [facility] Dx) [address] 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 None Prior functional level:?? None? [...] patient's ability to perform Recreational Activities and Help Desk Support Specialist as compared to previous level of [...] and time spent performing 1:1 timed codes. RIDGE MAKER documented in this encounter Plan of Treatment Not on filedocumented as of this encounter Procedures Procedure Name Priority Date/Time Associated Diagnosis Comme nts HC APPLY FINGER SPLINT Routine 01/22/2012 11:13 AM CARTRIDGE MAKER Thumb p ain STATIC documented in this encounter Visit Diagnoses Diagnosis Thumb pain - Primary Pain in limb documented in this encounter Care Teams Cattle Shipper Relationship Specialty Start Date End Date Nasir Velazquez MD PCP - General 02/18/99 10/06/13 [address] [place] [address] documented as of this encounter
--- OUTSIDE RECORDS SUMMARY | 2021-11-07 15:44 | XMS_ITS | Encounter Summary ---
:1945 Author Organization [place] Address [address] [facility] [place] [address] Care Team Providers Name Role Phone Nasir Velazquez MD Primary Care Provider [phone] Reason for Visit Reason Onset Date Comments Physical Pre Visit Planning - Done 06/29/10 HJ Erroneous encounter-disregard 07/05/2010 Encounter Details Date Type Department Care Team Description 07/01/2010 Office Visit [facility] Nasir Velazquez general medical examination at a health care facility (Primary Dx); Clinic [place] MD Geraldo ERRONEOUS ENCOUNTER--DISREGARD [address] [place], [place] CLINIC [address] [address] [facility] [phone] [place] [address] (Wo rk) Social History Tobacco [...] at Date Recorded Male 01/15/2018 11:39 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 Please disregard. documented in this encounter Plan of Treatment Not on filedocumented as of this encounter Visit Diagnoses Diagnosis Routine general medical examination at a [facility] care facility - Primary ERRONEOUS ENCOUNTER--DISREGARD documented in this encounter Care Teams Supervisor Shuttle Veneering Relationship Specialty Start Date End Date Nasir Velazquez MD PCP - General 02/18/99 10/06/[address] [address] documented as of this encounter
--- OUTSIDE RECORDS SUMMARY | 2021-11-07 15:44 | XMS_ITS | Encounter Summary ---
:1945 Author Organization [place] Address [facility] [place] [address] Care Team Providers Name Role Phone Nasir Velazquez MD Primary Care Provider [phone] Reason for Referral Specialty Diagnoses / Procedures Referred By Contact Refer red To Contact Pool Mays DPM [address] [place] [address] Referral ID Status Reason Start Date Expiration Date Visits Requ ested Visits Authorized Reason for Visit Reason Comments RECHECK pt states he is going to hav e injections at [facility]. He would like to talk about it before he has the i njections. 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 Pt is requesting a re-peat of [...] he is going to have injections at [facility]. He would like to talk about [...] joints. Exam otherwise negative. Pool Mays DPM [facility] IMAGING ORDER MICHELLE X-ray rt Foot [...] unspecified documented in this encounter Care Teams Operations Developer Relationship Specialty Start Date End Date Nasir Velazquez MD PCP - General 02/18/99 10/06/13 [facility] [address] [place] [address] documented as of this encounter
--- OUTSIDE RECORDS SUMMARY | 2021-11-07 15:44 | XMS_ITS | Encounter Summary ---
:1945 Author Organization [place] Address [facility] 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
--- OUTSIDE RECORDS SUMMARY | 2021-11-07 15:44 | XMS_ITS | Encounter Summary ---
:1945 Author Organization [place] Address [facility] [place] [address] Care Team Providers Name Role Phone Nasir Velazquez MD Primary Care Provider [phone] Reason for Visit SOTO Physical Therapy (Routine) - Closed Specialty Diagnoses / Procedures Referred By Contact Refer red To Contact Tony Brizuela MD ZZ S[facility] [address] [place], [place] [phone] [place] [address] Phone: Fax: Referral ID Status Reason Start Date Expiration Date Visits V isits Requested Authorized SOTO/HP/SPINE Closed 01/15/2012 02/05/2012 10 8 Encounter Details Date Type Department Care Team Description 01/15/2012 Therapy Visit [place] for Enrique Blum PT Neck pain (Primary Athletic Medicine - SOTO SHANEL LE Dx) [facility] [address] [place] [facility] [address] 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 W HAT BRIM CUTTER OPERATOR documented in this encounter Plan of Treatment Not on filedocumented as of this encounter Procedures Procedure Name Priority Date/Time Associated Diagnosis Comme nts ZZC MECHANICAL TRACTION Routine 01/15/2012 8:21 PM STRAW HAT BRIM CUTTER OPERATOR Neck pa in THERAPY documented in this encounter Visit Diagnoses Diagnosis Neck pain - Primary Cervicalgia documented in this encounter Care Teams Wireless Construction Manager Relationship Specialty Start Date End Date Nasir Velazquez MD PCP - General 02/18/99 10/06/[address] [address] documented as of this encounter
--- OUTSIDE RECORDS SUMMARY | 2021-11-07 15:44 | XMS_ITS | Encounter Summary ---
:1945 Author Organization [place] Address [facility] 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 Pharmacy line #[phone] documented in this encounter Plan of Treatment Not on filedocumented as of this encounter Visit Diagnoses Diagnosis Hyperlipidemia LDL goal <130 - Primary Other and unspecified hyperlipidemia documented in this encounter Care Teams Accounts Receivable Clerk Relationship Specialty Start Date End Date Nasir Velazquez MD PCP - General 02/18/99 10/06/13 [facility] [address] [place] [address] documented as of this encounter
--- OUTSIDE RECORDS SUMMARY | 2021-11-07 15:44 | XMS_ITS | Encounter Summary ---
:1945 Author Organization [place] Address [facility] 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 Last OV:06/06/2011 Martha Dias Senior Geologist Telephone Encounter - Martha Dias - 09/27/2011 2:20 PM CDT Message from [employer]: Original authorizing provider: MD Terry Grubbs would like a refill of the following medications: hydrochlorothiazide (HYDRODIURIL) 25 MG tablet [Nasir Velazquez MD] omeprazole (PRILOSEC) 40 MG capsule [Nasir Velazquez MD] doxazosin (CARDURA) 4 MG tablet [Nasir Velazquez MD] Preferred pharmacy: [facility] Comment: documented in this encounter Plan of Treatment Not on filedocumented as of this encounter Visit Diagnoses Diagnosis Hypertension goal BP (blood pressure) < 140/90 Unspecified essential hypertension Esophageal reflux HYPERTROPHY of PROSTATE Hypertrophy of prostate without urinary obstruction and other lower urinary tract symptoms (LUTS) documented in this encounter Care Teams Brine Supervisor Relationship Specialty Start Date End Date Nasir Velazquez MD PCP - General 02/18/99 10/06/13 [facility] [address] [place] [address] documented as of this encounter
--- OUTSIDE RECORDS SUMMARY | 2021-11-07 15:44 | XMS_ITS | Encounter Summary ---
:1945 Author Organization [place] Address [address] [facility] [address] Care Team Providers Name Role Phone Nasir Velazquez MD Primary Care Provider Reason for Referral - Closed Specialty Diagnoses / Procedures Referred By Contact Refer red To Contact Diagnoses Hand pain Nasir Velazquez MD [facility] [address] [place], [place] [address] Referral ID Status Reason Start Date Expiration Date Visits Requ ested Visits Authorized [id number] Closed 06/06/2011 12/03/2011 1 1 Reason for Visit Reason Comments Physical pt is fasting for labs. Encounter Details Date Type Department Care Team Description 06/06/2011 Office Visit [facility] Nasir Velazquez general medical examination at a health care facility (Primary Dx); Clinic Candy Chow MD Hand pain; [address] [facility] SHAHE[address] NUÑEZ Chronic rhinitis; [place], [place] CLINIC SCC (squamous cell carcinoma), face; [phone] [address] MORENITA (obstructive sleep apnea ); [phone] Hyperlipidemia LDL goal <130; [place], [place] Hypertensi on goal BP (blood pressure) < 140/90; [address] Screening for AAA (abdominal aortic aneu rysm) [...] at Date Recorded Male 01/15/2018 11:39 PM V 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 ROS: C: NEGATIVE for fever, [...] ordered. 729.5AD Hand pain Comment: Plan: ORTHO VEHICLE CONTROLS ENGINEER REFERRAL Referral to hand orthopedics for further [...] Range Method Time Signature Creatinine 196 mg/dL [facility] Urine [facility] Albumin Urine <5 mg/L [facility] mg/L Urine Microalbumin lowest re portable value has been changed from 2 mg/L to 5 [facility] mg/L due to a methodology change on May. [place] [facility] Albumin Urine Unable to 0 - 17 [facility] mg/g Cr calculate mg/g Cr [facility] Specimen Anatomical Collection Method Collection Time Receive d Time (Source) Location / / Volume Laterality Urine specimen 06/06/2011 11:20 2 (specimen) AM CDT 11:22 AM CDT Nasir Velazquez MD LAB - URINE ORDERABLES Performing Organization Address City/State/ZIP Code Phon e Number [facility] [address] [place], [place] [id number] [place] [address] LABS Basic metabolic panel (06/06/2011 11:15 AM CDT) P athologist Signature Sodium 142 133 - 144 [place] mmol/L CLINIC LAB Potassium 3.9 3.4 - 5.3 [place] mmol/L CLINIC LAB Chloride 102 94 - 109 [place] mmol/L [facility]INIC LAB Carbon Dioxide 26 20 - 32 [place] mmol/L [facility]INIC LAB Anion Gap 14 6 - 17 [place] mmol/L [facility]IC LAB Glucose 97 60 - 99 [place] mg/dL CLINIC LAB Urea Nitrogen 16 7 - 30 [place] mg/dL [facility] Creatinine 1.02 0.66 [facility] GFR Estimate 73 >60 [place] mL/min/1.7 CLINIC LAB m2 GFR Estimate If 88 >60 [facility] Black mL/min/1.7 CLINIC LAB m2 Calcium 9.6 8.5 - 10.4 [facility] mg/dL CLINIC LAB Specimen Anatomical Collection Method Collection Time Receive d Time (Source) Location / / Volume Laterality Blood specimen 06/06/2011 11:15 2 (specimen) AM CDT 11:18 AM CDT Nasir Velazquez MD LAB - BLOOD ORDERABLES Performing Organization Address City/State/ZIP Code Phon e Number [facility] [address] [place] [address] [facility] LAB (ABNORMAL) Lipid panel reflex to direct LDL (06/06/2011 11:15 AM CDT) athologist Signature Cholesterol 187 0 - 200 [facility] mg/dL CLINIC LAB Comment: LDL Cholesterol is the primary guide to therapy. The NCEP recommends further evaluation of: patients with cholesterol greater than 200 mg/dL if additional risk facto rs are present, cholesterol greater than 240 mg/dL, triglycerides greater than 1 50 mg/dL, or HDL less than 40 mg/dL. Triglycerides 232 (H) 0 - 150 mg/dL [facility] LAB HDL Cholesterol 43 40 - 110 mg/dL [facility] LAB LDL Cholesterol Calculated 98 0 - 129 mg/dL [facility] Comment: LDL Cholesterol is the primary guide to therapy: LDL-cholesterol goal in high risk patients is <100 mg/dL and in very high risk patients is <70 mg/dL. VLDL-Cholesterol 46 (H) 0 - 30 mg/dL [facility] LAB Cholesterol/HDL Ratio 4.3 0.0 - 5.0 [facility] LAB Specimen Anatomical Collection Method Collection Time Receive d Time (Source) Location / / Volume Laterality Blood specimen 06/06/2011 11:15 2 (specimen) AM CDT 11:18 AM CDT Nasir Velazquez MD LAB - BLOOD ORDERABLES Performing Organization Address City/[facility]/ZIP Code Phon e Number [facility] [address] [place] [address] [facility] LAB (ABNORMAL) CBC with platelets (06/06/2011 11:15 AM CDT) Analysis Performed At Patho logist Time Signature WBC 5.6 4.0 - 11.0 [place] 10e9/L [facility] LAB RBC Count 4.45 4.4 - 5.9 [place] 10e12/L [facility] LAB Hemoglobin 12.9 (L) 13.3 - [place] 17.7 g/dL [facility] LAB Hematocrit 37.5 (L) 40.0 - [place] 53.0 % [facility] LAB MCV 84 78 - 100 [facility] LAB MCH 29.0 26.5 - [place] 33.0 pg [facility] LAB MCHC 34.4 31.5 - [place] 36.5 g/dL [facility] LAB RDW 12.9 10.0 - [place] 15.0 % [facility] LAB Platelet Count 155 150 - 450 [place] 10e9/L [facility] LAB Specimen Anatomical Collection Method Collection Time Receive d Time (Source) Location / / Volume Laterality Blood specimen 06/06/2011 11:15 2 (specimen) AM CDT 11:18 AM CDT Nasir Velazquez MD LAB - BLOOD ORDERABLES Performing Organization Address City/[facility]/ZIP Code Phon e Number [facility] [address] [place] [address] [facility] documented in this encounter [...] conditions documented in this encounter Care Teams Chin Strap Maker Relationship Specialty Start Date End Date Nasir Velazquez MD PCP - General 02/18/99 10/06/13 [facility] [address] [place] [address] documented as of this encounter
--- OUTSIDE RECORDS SUMMARY | 2021-11-07 15:45 | XMS_ITS | Encounter Summary ---
:1945 Author Organization [place] Address [address] [facility] [place] [address] Care Team Providers Name Role Phone Nasir Velazquez MD Primary Care Provider [phone] Reason for Visit Reason Onset Date Comments Foot Problems 11/04/2008 Seen today for rt fo ot pain Encounter Details Date Type Department Care Team Description 11/04/2008 Telephone [facility] Pool Mays, Velma t Problems (Seen Clinic [facility] today for rt foot pain) [address] [facility] [address] [address] [place], [place] [phone] (Wo rk) Social History Tobacco Use Types Packs/Day Years Used Date Former Smoker Quit: 02/05/18 85 Alcohol Use Standard Drinks/Week Comments Yes 1.7 (1 standard drink = 0.6 oz pure alco hol) socially Sex Assigned at Date Recorded Male 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 Placed order for X ray of left foot. He will go to [facility] tomorrow for the X ray. OnceDr. Mays had reviewed the X ray I will call the patient back. Pt may be reached at [phone] or [phone] Florecita Graff CMA Telephone Encounter - Florecita Graff - 11/05/2008 9:00 AM CDT LM for pt to call me. Florecita Graff CMA Telephone Encounter - Pool Mays - 11/04/2008 2:58 PM CDT Florecita, I would suggest having pt come in for future 3 view WB lt foot x-ray. Based on the findings, then possible injection @ [facility] Radiology. Telephone Encounter - Elly Jeffries [...] limb documented in this encounter Care Teams Compressor Station Chief Engineer Relationship Specialty Start Date End Date Nasir Velazquez MD PCP - General 02/18/99 10/06/13 [facility] [address] [place] [address] documented as of this encounter
--- OUTSIDE RECORDS SUMMARY | 2021-11-07 15:45 | XMS_ITS | Encounter Summary ---
:1945 Author Organization [place] Address [facility] [place] [address] Care Team Providers Name Role Phone Nasir Velazquez MD Primary Care Provider [phone] Reason for Visit Reason Comments Allied Health Visit bp check Encounter Details Date Type Department Care Team Description 04/23/2009 [facility] [place] All ied Health Visit (bp Visit Clinic [place] check) [address] [place] [address] Social History Tobacco Use Types Packs/Day Years Used Date Former Smoker Quit: 02/05/18 85 Alcohol Use Standard Drinks/Week Comments Yes 1.7 (1 standard drink = 0.6 oz pure alco hol) socially Sex Assigned at Date Recorded Male 01/15/2018 11:39 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 Velazquez. Phoenix Dubois PRODUCT SAFETY COORDINATOR Initial BP 120/76 Pulse 64 Estimated Body mass index is 29.29 kg/(m^2) as calculated from the following: Height as of 03/24/09: 5' 8.5(1.74 m). Weight as of 03/24/09: 195 lb 8 oz(88.678 kg).. BP completed using cuff size: temo Dubois PRODUCT SAFETY COORDINATOR documented in this encounter Plan of Treatment Not on filedocumented as of this encounter Visit Diagnoses Diagnosis BP check - Primary Screening for hypertension documented in this encounter Care Teams Babbitt Spinner Relationship Specialty Start Date End Date Nasir Velazquez MD PCP - General 02/18/99 10/06/13 [facility] [address] [place] [address] documented as of this encounter
--- OUTSIDE RECORDS SUMMARY | 2021-11-07 15:45 | XMS_ITS | Encounter Summary ---
:1945 Author Organization [place] Address [facility] [place] [place] [address] Care Team Providers Name Role Phone Nasir Velazquez MD Primary Care Provider [phone] Reason for Visit Reason Onset Date Comments Refill Request 12/04/2008 doxazosin Encounter Details Date Type Department Care Team Description 12/04/2008 Refill [facility] Nasir Velazquez Refill Request [facility] MD Geraldo (doxazosin) [address] [address] [facility] [phone] [place] [address] (Wo rk) Social History Tobacco Use Types Packs/Day Years Used Date Former Smoker Quit: 02/05/18 85 Alcohol Use Standard Drinks/Week Comments Yes 1.7 (1 standard drink = 0.6 oz pure alco hol) socially Sex Assigned at Date Recorded Male 01/15/2018 11:39 PM 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
--- OUTSIDE RECORDS SUMMARY | 2021-11-07 15:45 | XMS_ITS | Encounter Summary ---
:1945 Author Organization [place] Address [address] [facility] [place] [address] Care Team Providers Name Role Phone Nasir Velazquez MD Primary Care Provider [phone] Raghavendra Deras MD Primary Care Provider Unavailable Encounter Details Date Type Department Care Team Description 03/26/2009 Historic Results [facility] Unknown, [facility] [address] [place] [address] Social History Tobacco Use Types Packs/Day Years Used Date Former Smoker Quit: 02/05/18 85 Alcohol Use Standard Drinks/Week Comments Yes 1.7 (1 standard drink = 0.6 oz pure alco hol) socially Sex Assigned at Date Recorded Male 01/15/2018 11:39 PM BANANA EXPERT documented as of this encounter Plan of Treatment Not on filedocumented as of this encounter Procedures Procedure Name Priority Date/Time Associated Diagnosis Comme nts ECHO CARDIAC - HIM SCAN 03/26/2009 12:00 AM BANANA EXPERT - ARCHIVE documented in this encounter Results ECHO CARDIAC - HIM SCAN - ARCHIVE (03/26/2009 12:00 AM BANANA EXPERT) Specimen (Source) Anatomical Location Collection Method / Collectio n Time Received Time / Laterality Volume 03/26/2009 Narrative This result has an attachment that is no t available. Provider Scan CV ECHO ORDERABLES documented in this encounter Visit Diagnoses Not on filedocumented in this encounter Care Teams Interlocker Maintainer Relationship Specialty Start Date End Date Nasir Velazquez MD PCP - General 02/18/99 10/06/13 [facility] [address] [place] [address] Raghavendra Deras MD PCP - General Family Practice 10/07/13 documented as of this encounter
--- OUTSIDE RECORDS SUMMARY | 2021-11-07 15:45 | XMS_ITS | Encounter Summary ---
:1945 Author Organization [place] Address [address] [facility] [address] Care Team Providers Name Role Phone Nasir Velazquez MD Primary Care Provider Reason for Visit Reason Comments RECHECK review stress test results a nd recent labs. Encounter Details Date Type Department Care Team Description 04/30/2009 Office Visit [facility] Nasir Velazquez Hypert ension (Primary Dx); Clinic Candy Chow MD HYPERTROPHY of PROSTATE ; [address] [place] Mixed Hyperlipidemia; [place], [place] CLINIC MORENITA (Obstructive Sleep Apnea); [address] [facility] Nasal Congestion [phone] [place] [address] Social History Tobacco Use Types Packs/Day Years Used Date Former Smoker Quit: 02/05/18 85 Alcohol Use Standard Drinks/Week Comments Yes 1.7 (1 standard drink = 0.6 oz pure alco hol) socially Sex Assigned at Date Recorded Male 01/15/2018 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 Current outpatient prescriptions ordered prior to encounter: [...] greater than 50% of 25 minutes of oqzi-yh-kbob time counseling patient and/or coordinating care regarding [...] completed using cuff size: large Phoenix Dubois EMD SPECIAL EDUCATION TEACHER documented in this encounter Plan of [...] es documented in this encounter Care Teams Die Cast Patternmaker Relationship Specialty Start Date End Date Nasir Velazquez MD PCP - General 02/18/99 10/06/13 [facility] [address] [place] [address] documented as of this encounter
--- OUTSIDE RECORDS SUMMARY | 2021-11-07 15:45 | XMS_ITS | Encounter Summary ---
:1945 Author Organization [place] Address [facility] [place] [address] Care Team Providers Name Role Phone Nasir Velazquez MD Primary Care Provider [phone] Reason for Visit Reason Onset Date Comments Refill Request 03/21/2010 Encounter Details Date Type Department Care Team Description 03/21/2010 MyC Refill [facility] Nasir Velaz[place] [address] [place] [address] [employer] [phone] [facility] N [address] (Wo rk) Social History Tobacco Use Types Packs/Day Years Used Date Former Smoker Quit: 02/05/18 85 Alcohol Use Standard Drinks/Week Comments Yes 1.7 (1 standard drink = 0.6 oz pure alco hol) socially Sex Assigned at Date Recorded Male 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 Can you refill? Chelsie Clifford RN BP Readings from Last 2 Encounters: 04/30/2009 124/78 04/23/2009 120/76 CR 1.02 10/19/2008 POTASSIUM 4.0 10/19/2008 T TRUCK DRIVER Telephone Encounter - Chelsie Clifford - 03/21/2010 11:50 AM LIGHT TRUCK DRIVER Message from [employer]: Terry Montero would like a refill of the following medications: HYDROCHLOROTHIAZIDE 25 MG OR TABS [Nasir Velazquez MD] Preferred pharmacy: [facility] Comment: 4 days left T TRUCK DRIVER documented in this encounter Plan of Treatment Not on filedocumented as of this encounter Visit Diagnoses Diagnosis Hypertension - Primary Unspecified essential hypertension Hyperlipidemia LDL goal <130 Other and unspecified hyperlipidemia documented in this encounter Care Teams Acrobatic Rigger Relationship Specialty Start Date End Date Nasir Velazquez MD PCP - General 02/18/99 10/06/13 [place] [address] [place] [address] documented as of this encounter
--- OUTSIDE RECORDS SUMMARY | 2021-11-07 15:45 | XMS_ITS | Encounter Summary ---
:1945 Author Organization [place] Address [address] [facility] [place] [address] Care Team Providers Name Role Phone Nasir Velazquez MD Primary Care Provider [phone] Reason for Referral Office Workup No CT/MRI - Closed Specialty Diagnoses / Procedures Referred By Contact Refer red To Contact Diagnoses Chest pain Palpitation Kedar MakiAURORA, [facility] [address] [place] [address] [address] [facility] Phone: [phone] [place] [address] Referral ID Status Reason Start Date Expiration Date Visits Requ ested Visits Authorized [id number] Closed 03/24/2009 02/04/[address] FIRER/FIREMAN Reason for Visit Reason Comments Musculoskeletal Problem pt states that he has been h aving some spasms left chest area x 2-3 days. no chest pain. Encounter Details Date Type Department Care Team Description 03/24/2009 [facility] PSA (Prostate Specific Antigen) (Primary Dx); Clinic Candy Conn PA-C Chest Pain; [address] [facility] Palpitation; [place], [place] HOSPITAL HYPERTROPHY of PROSTATE ; [address] [address] [facility]; [phone] [place], [place] Mixed Hyperlip idemia [address] Social History Tobacco Use Types Packs/Day Years Used Date Former Smoker Quit: 02/05/18 85 Alcohol Use Standard Drinks/Week Comments Yes 1.7 (1 standard drink = 0.6 oz pure alco hol) socially Sex Assigned at Date Recorded Male 01/15/2018 11:39 [address] FIRER/FIREMAN documented as of this encounter Last Filed Vital Signs Vital Sign Reading Time Taken Comments Blood Pressure 138/88 03/24/2009 11:48 AM RAILROAD FIRER/FIREMAN Pulse 67 03/24/2009 11:48 AM RAILROAD FIRER/FIREMAN Temperature 37.1 ??C (98.7 ??F) 03/24/2009 11:48 AM RAILROAD FIRER/FIREMAN Respiratory Rate - - Oxygen Saturation 96% 03/24/2009 11:48 AM RAILROAD FIRER/FIREMAN Inhaled Oxygen Concentration - - Weight 88.7 kg (195 lb 8 oz) 03/24/2009 11:48 AM RAILROAD FIRER/FIREMAN Height 174 cm (5' 8.5) 03/24/2009 11:48 AM RAILROAD FIRER/FIREMAN Body Mass Index 29.29 03/24/2009 11:48 AM RAILROAD FIRER/FIREMAN documented in this encounter Progress Notes Kedar [...] SPEC ANTIGEN,SCREEN 2. Chest Pain (786.50F) CONSULT [facility] 3. Palpitation (785.1A) TSH-, T4, FREE, SERUM, CONSULT [facility] 4. 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 Recheck in clinic in [address] FIR[address]/FIREMAN documented in this encounter Nursing Notes 03/24/2009 [...] completed using cuff size: large Phoenix Dubois LABOR ECONOMIST documented in this encounter Plan of Treatment [...] hyperlipidemia documented in this encounter Care Teams Band Director Relationship Specialty Start Date End Date Nasir Velazquez MD PCP - General 02/18/99 10/06/13 [facility] [address] [place] [address] documented as of this encounter
--- OUTSIDE RECORDS SUMMARY | 2021-11-07 15:45 | XMS_ITS | Encounter Summary ---
:1945 Author Organization [place] Address [address] [facility] [place] [address] Care Team Providers Name Role Phone Nasir Velazquez MD Primary Care Provider [phone] Raghavendra Deras MD Primary Care Provider Unavailable Raghavendra Deras MD Unavailable Unavailable BraedenRaghavendra lang MD Unavailable Unavailable Reason for Visit Reason Onset Date Comments MyChart Communication 03/12/2009 Simvastatin and HC TZ Encounter Details Date Type Department Care Team Description 03/12/2009 [facility]ir [facility] Communication [facility] MD Geraldo (Simvastatin and HCTZ) [address] [place], [place] CLINIC [address] [address] [facility] [phone] [place] [address] (Wo rk) Social History Tobacco Use Types Packs/Day Years Used Date Former Smoker Quit: 02/05/18 85 Alcohol Use Standard Drinks/Week Comments Yes 1.7 (1 standard drink = 0.6 oz pure alco hol) socially Sex Assigned at Date Recorded Male 01/15/2018 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 Selene Raymond RN THOUSE KEEPER Telephone Encounter - Selene Raymond - 03/15/2009 11:05 AM LIGHTHOUSE KEEPER Message from [employer]: Terry Montero would like a refill of the following medications: SIMVASTATIN 20 MG OR TABS [Nasir Velazquez MD] HYDROCHLOROTHIAZIDE 25 MG OR TABS [Nasir Velazquez MD] Preferred pharmacy: [facility] Comment: THOUSE KEEPER documented in this encounter Plan of Treatment Not on filedocumented as of this encounter Visit Diagnoses Diagnosis Mixed hyperlipidemia Essential hypertension, benign documented in this encounter Care Teams Jde Developer Relationship Specialty Start Date End Date Nasir Velazquez MD PCP - General 02/18/99 10/06/13 [place] [address] [place] [address] Raghavendra Deras MD PCP - General Family Practice 10/07/13 Raghavendra Deras MD PCP - Assigned PCP 01/23/16 04/09/18 Raghavendra Deras MD Assigned PCP 01/23/16 05/14/21 documented as of this encounter
--- OUTSIDE RECORDS SUMMARY | 2021-11-07 15:45 | XMS_ITS | Encounter Summary ---
:1945 Author Organization [place] Address [facility] [place] [address] Care Team Providers Name Role Phone Nasir Velazquez MD Primary Care Provider [phone] Reason for Visit Reason Onset Date Comments Refill Request 10/15/2007 hctz, simvastatin, d oxysozin Encounter Details Date Type Department Care Team Description 10/15/[address] 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
--- OUTSIDE RECORDS SUMMARY | 2021-11-07 15:45 | XMS_ITS | Encounter Summary ---
:1945 Author Organization [place] Address [facility] [place] [address] Care Team Providers Name Role Phone Nasir Velazquez MD Primary Care Provider [phone] Reason for Visit Reason Onset Date Comments Refill Request 05/12/2008 Omperazole supply to local pharm Encounter Details Date Type Department Care Team Description 05/12/2008 Refill [facility] Nasir Velazquez Refill Request Clinic Likely MD Geraldo [place] [address] [facility] local pharm) [place], [place] [address] [facility] [address] [facility] [phone] [place] [address] (Wo rk) Social History Tobacco Use Types Packs/Day Years Used Date Former Smoker Quit: 02/05/18 85 Alcohol Use Standard Drinks/Week Comments Yes 1.7 (1 standard drink = 0.6 oz pure alco hol) socially Sex Assigned at Date Recorded Male 01/15/2018 11:[address] JUDGE documented as of this encounter Miscellaneous Notes Telephone Encounter - Chelsie Clifford - 05/12/2008 3:27 PM CDT 30day supply sent to [facility] per patient request. Chelsie Clifford RN documented in this encounter Plan of Treatment Not on filedocumented as of this encounter Visit Diagnoses Diagnosis Esophageal reflux - Primary documented in this encounter Care Teams Final Assembly Inspector Relationship Specialty Start Date End Date Nasir Velazquez MD PCP - General 02/18/99 10/06/13 [facility] [address] [place] [address] documented as of this encounter
--- OUTSIDE RECORDS SUMMARY | 2021-11-07 15:45 | XMS_ITS | Encounter Summary ---
:1945 Author Organization [place] Address formerly [facility]0 [facility] [place] [address] Care Team Providers Name Role Phone Nasir Velazquez MD Primary Care Provider [phone] Encounter Details Date Type Department Care Team Description 07/22/2009 Telephone [facility] [place] [address] [place] [address] [facility] [phone] [facility] N [address] (Wo rk) Social History Tobacco Use Types Packs/Day Years Used Date Former Smoker Quit: 02/05/18 85 Alcohol Use Standard Drinks/Week Comments Yes 1.7 (1 standard drink = 0.6 oz pure alco hol) socially Sex Assigned at Date Recorded Male 01/15/2018 11:39 PM SWEDISH 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 He would also need a 90 day refill for Simvasatin sent to the mail order. He can be reached at [phone]. DL 6-17@10:51am documented in this encounter Plan of Treatment Not on filedocumented as of this encounter Visit Diagnoses Diagnosis Mixed hyperlipidemia - Primary documented in this encounter Care Teams Liquor Grinding Mill Operator Relationship Specialty Start Date End Date Nasir Velazquez MD PCP - General 02/18/99 10/06/[address] [address] documented as of this encounter
--- OUTSIDE RECORDS SUMMARY | 2021-11-07 15:45 | XMS_ITS | Encounter Summary ---
:1945 Author Organization [place] Address [address] [facility] [place] [address] Care Team Providers Name Role Phone Nasir Velazquez MD Primary Care Provider [phone] Reason for Visit Reason Onset Date Comments Patient Request 09/13/2009 Omeprazole Encounter Details Date Type Department Care Team Description 09/13/2009 Telephone [facility] Nasir Velazquez t Request [facility] MD Geraldo (Omeprazole) [address] [place] [address] [place] [address] [facility] [phone] [place] [address] (Wo rk) Social History Tobacco Use Types Packs/Day Years Used Date Former Smoker Quit: 02/05/18 85 Alcohol Use Standard Drinks/Week Comments Yes 1.7 (1 standard drink = 0.6 oz pure alco hol) socially Sex Assigned at Date Recorded Male 01/15/2018 11:39 PM CAPTAIN AIRLINE PILOT documented as of this encounter Miscellaneous Notes [...] Sanchez - 09/13/2009 11:28 AM CDT Supposedly, [facility] faxed an Rx request for Omeprazole. I show we didn't receive it. Carlos needs a refill sent to [facility] in [place] ([place]) by Sunday. Also, send to [facility]. Carlos can be reachedat [phone]. DL documented in this encounter Plan of Treatment Not on filedocumented as of this encounter Visit Diagnoses Diagnosis Esophageal reflux - Primary documented in this encounter Care Teams Bonbon Dipper Relationship Specialty Start Date End Date Nasir Velazquez MD PCP - General 02/18/99 10/06/13 [facility] [address] [place] [address] documented as of this encounter
--- OUTSIDE RECORDS SUMMARY | 2021-11-07 15:45 | XMS_ITS | Encounter Summary ---
:1945 Author Organization [place] Address [facility] [place] [address] Care Team Providers Name Role Phone Nasir Velazquez MD Primary Care Provider [phone] Encounter Details Date Type Department Care Team Description 03/10/2008 GI Procedure [facility] Nasir Velazquez [facility] MD Geraldo [address] [place] [address] [facility] [phone] [facility] [address] [address] (Wo rk) Social History Tobacco Use Types Packs/Day Years Used Date Former Smoker Quit: 02/05/18 85 Alcohol Use Standard Drinks/Week Comments Yes 1.7 (1 standard drink = 0.6 oz pure alco hol) socially Sex Assigned at Date Recorded Male 01/15/2018 11:39 PM 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 documented in this encounter Results COLONOSCOPY (03/10/2008 9:05 AM OBSERVER ELECTRICAL PROSPECTING) [facility] Method Time Signature COLONOSCOPY Endoscopy RADIOLOGY RESULTS [...] oxygen ? saturations were monitored continuously. The [id number] ? #[id number] was introduced through the anus and advanced [...] / / Volume Laterality 03/10/2008 9:05 AM OBSERVER ELECTRICAL PROSPECTING Nasir Velazquez MD PROCEDURES Performing Organization Address City/State/ZIP Code Phon e Number RADIOLOGY RESULTS documented in this encounter Visit Diagnoses Not on filedocumented in this encounter Care Teams Ct Technologist Relationship Specialty Start Date End Date Nasir Velazquez MD PCP - General 02/18/99 10/06/13 [facility] [address] [place] [address] documented as of this encounter
--- OUTSIDE RECORDS SUMMARY | 2021-11-07 15:45 | XMS_ITS | Encounter Summary ---
:1945 Author Organization [place] Address [facility] [place] [address] Care Team Providers Name Role Phone Nasir Velazquez MD Primary Care Provider [phone] Reason for Visit Reason Onset Date Comments Refill Request 09/04/2008 omeprazole Encounter Details Date Type Department Care Team Description 09/04/2008 Refill [facility] Nasir Velazquez Refill Request [facility] MD Geraldo (omeprazole) [address] [address] [facility] [phone] [place], [place] [address] (Wo rk) Social History Tobacco Use Types Packs/Day Years Used Date Former Smoker Quit: 02/05/18 85 Alcohol Use Standard Drinks/Week Comments Yes 1.7 (1 standard drink = 0.6 oz pure alco hol) socially Sex Assigned at Date Recorded Male 01/15/2018 11:39 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
--- OUTSIDE RECORDS SUMMARY | 2021-11-07 15:45 | XMS_ITS | Encounter Summary ---
:1945 Author Organization [place] Address [facility] [place] [address] Care Team Providers Name Role Phone Nasir Velazquez MD Primary Care Provider [phone] Reason for Visit Reason Onset Date Comments Refill Request 06/23/2010 doxazosin (CARDURA) 4 MG tablet [[id number] Encounter Details Date Type Department Care Team Description 06/23/2010 Refill [facility] Nasir Velazquez Refill Request Clinic Candy Chow MD (doxazosin (CARDURA) 4 [address] [facility] [place] MG tablet [[id number] ) [place], [place] [address] [facility] [address] [facility] [phone] [place] [address] (Wo rk) Social History Tobacco Use Types Packs/Day Years Used Date Former Smoker Quit: 02/05/18 85 Alcohol Use Standard Drinks/Week Comments Yes 1.7 (1 standard drink = 0.6 oz pure alco hol) socially Sex Assigned at Date Recorded Male 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 Ariella Davidson Pension Fund Manager documented in this encounter Plan of Treatment Not on filedocumented as of this encounter Visit Diagnoses Diagnosis HYPERTROPHY of PROSTATE - Primary Hypertrophy of prostate without urinary obstruction and other lower urinary tract symptoms (LUTS) documented in this encounter Care Teams Addiction Therapist Relationship Specialty Start Date End Date Nasir Velazquez MD PCP - General 02/18/99 10/06/13 [facility] [address] [place] [address] documented as of this encounter
--- OUTSIDE RECORDS SUMMARY | 2021-11-07 15:45 | XMS_ITS | Encounter Summary ---
:1945 Author Organization [place] Address [facility] [place] [address] Care Team Providers Name Role Phone Nasir Velazquez MD Primary Care Provider [phone] Reason for Referral Referral not Required - Closed Specialty Diagnoses / Procedures Referred By Contact Refer red To Contact Diagnoses Adenomatous polyp of colon Nasir Velazquez ROBERT A GILL MD FACP MD [address] [facility] [address] [place], [place] [address] Phone: [phone] Fax: Referral ID Status Reason Start Date Expiration Date Visits Requ ested Visits Authorized [id number] Closed 02/28/2008 02/04/2011 1 1 K DRILLER Encounter Details Date Type Department Care Team Description 02/27/2008 Telephone [facility] [place] [address] [place] [address] [facility] [phone] [facility] N [address] (Wo rk) Social History Tobacco Use Types Packs/Day Years Used Date Former Smoker Quit: 02/05/18 85 Alcohol Use Standard Drinks/Week Comments Yes 1.7 (1 standard drink = 0.6 oz pure alco hol) socially Sex Assigned at Date Recorded Male 01/15/2018 11:39 PM BLANK DRILLER documented as of this encounter Miscellaneous Notes Telephone Encounter - Nasir Velazquez - 02/28/2008 1:05 PM CST Should now be correct association. Thanks for your work. K DRILLER Telephone Encounter - Tonie Chan - 02/27/2008 11:59 AM CST Patient called, wanted to know if we got his medical record in from Dr Edilson Valenzuela for his colonoscopy back in November 2002. We do, I will fax it over to Dr Parsons's office at [phone]. Also, his colonoscopy showed that he had [...] Parsons in the meantime. Thanks - Sue K DRILLER Telephone Encounter - Enedelia Morrison - 02/27/2008 9:40 AM CST Pt called he received message in [employer] he is due for colonoscopy. He did set one up with Dr. Parsons for 03/10/08. Pt checked with insurance they only usually cover the every 10yrs. Put pt's last colonoscopy and path in his chart did send to Dr. Velazquez for review. Please call or Figaro Systemst pt on what he should do or is there something Dr. Velazquez can do to get the every 10yr changed. Pt home # [phone] K DRILLER documented in this encounter Plan of Treatment Not on filedocumented as of this encounter Visit Diagnoses Diagnosis Adenomatous polyp of colon - Primary Benign neoplasm of colon documented in this encounter Care Teams Fiberglass Roving Winder Relationship Specialty Start Date End Date Nasir Velazquez MD PCP - General 02/18/99 10/06/13 [id number] [place] [address] documented as of this encounter
--- OUTSIDE RECORDS SUMMARY | 2021-11-07 15:45 | XMS_ITS | Encounter Summary ---
:1945 Author Organization [place] Address On license of [facility]0 [facility] [place] [address] Care Team Providers Name Role Phone Nasir Velazquez MD Primary Care Provider [phone] Reason for Referral Specialty Diagnoses / Procedures Referred By Contact Refer red To Contact Pool Mays DPM [address] [place] [address] Referral ID Status Reason Start Date Expiration Date Visits Requ ested Visits Authorized Reason for Visit Reason Comments Musculoskeletal Problem right foot pain across top o f ankle. Sx for 2 years. Encounter Details Date Type Department Care Team Description 11/04/2008 Office Visit [facility] Pool Mays Pain i n Soft Tissues of Limb (Primary Dx); Clinic Pan Ward DPM Arthralgia; [address] [place] [address] Flat Foot [place] [address] [place], [place] [address] [address] [place] [address] Social History Tobacco Use Types Packs/Day Years Used Date Former Smoker Quit: 02/05/18 85 Alcohol Use Standard Drinks/Week Comments Yes 1.7 (1 standard drink = 0.6 oz pure alco hol) socially Sex Assigned at Date Recorded Male 01/15/2018 11:39 PM SACK CLEANING HAND documented as of this encounter Progress [...] Procedure Name Priority Date/Time Associated Diagnosis Comme [facility] RT X-RAY FOOT Routine 11/04/2008 11:21 [...] foot documented in this encounter Care Teams Supervisor Hot Dip Tinning Relationship Specialty Start Date End Date Nasir Velazquez MD PCP - General 02/18/99 10/06/13 [facility] [address] [place] [address] documented as of this encounter
--- OUTSIDE RECORDS SUMMARY | 2021-11-07 15:45 | XMS_ITS | Encounter Summary ---
:1945 Author Organization [place] Address [facility] [place] [address] Care Team Providers Name Role Phone Nasir Velazquez MD Primary Care Provider [phone] Reason for Visit Reason Onset Date Comments Refill Request 08/11/2008 omperazole Encounter Details Date Type Department Care Team Description 08/11/2008 Refill [facility] Nasir Velazquez Refill Request Clinic Tamaroa MD Geraldo (omperazole) [address] [place], [place] [address] [facility] [address] 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 Case number for Kuaidi Dache is [id number], please contact Kuaidi Dache at [phone], apparently the patientonly has a couple of pills left. documented in this encounter Plan of Treatment Not on filedocumented as of this encounter Visit Diagnoses Not on filedocumented in this encounter Care Teams Offal Baler Relationship Specialty Start Date End Date Nasir Velazquez MD PCP - General 02/18/99 10/06/[address] [address] documented as of this encounter
--- OUTSIDE RECORDS SUMMARY | 2021-11-07 15:45 | XMS_ITS | Encounter Summary ---
:1945 Author Organization [place] Address [address] [place] [address] Care Team Providers Name Role Phone Nasir Velazquez MD Primary Care Provider [phone] Reason for Referral Referral not Required - Closed Specialty Diagnoses / Procedures Referred By Contact Refer red To Contact Diagnoses Foot pain Pes planus Nasir Velazquez ZZ [facility] [place] S[place] [address] SAVANNAH Cheung D [address] [place] [address] [address] [place], [place] [address] [place] [address] Phone: [phone] Fax: [phone] Referral ID Status Reason Start Date Expiration Date Visits Requ ested Visits Authorized [id number] Closed 10/19/2008 02/04/2011 1 1 Reason for Visit Reason Comments Pain chronic pain both feet. Righ t side is worse. Encounter Details Date Type Department Care Team Description 10/19[facility]2008 [facility] Clinic Candy Chow MD Need for Prophylactic Vaccination with T etanus-Diphtheria (TD); [address] [facility] SAVANNAH Pes Planus; [place], [place] CLINIC BENIGN HYPERTENSION; [phone] [address] Mixed Hyperlipidemia [phone] [place] [address] Social History Tobacco Use Types Packs/Day Years Used Date Former Smoker Quit: 02/05/18 85 Alcohol Use Standard Drinks/Week Comments Yes 1.7 (1 standard drink = 0.6 oz pure alco hol) socially Sex Assigned at Date Recorded Male 01/15/2018 11:39 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 Current outpatient prescriptions prior to encounter: SIMVASTATIN [...] (primary encounter diagnosis) Comment: Plan: CONSULT ORTHO LAND CLASSIFIER referral to Podiatry. Suspect some element of navicular instability based on location of the pain. V06.5 Need for Prophylactic Vaccination with Tetanus-Diphtheria (TD) Comment: Plan: TDAP ( [employer] AGES 10-64) 734L Pes Planus Comment: Plan: CONSULT ORTHO LAND CLASSIFIER as above. 401.1 BENIGN HYPERTENSION Comment: Plan: [...] taken today with shoes off. 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 documented in this encounter Plan of [...] athologist Signature Sodium 142 133 - 144 [place] mmol/L [facility] Potassium 4.0 3.4 - 5.3 [place] mmol/L [facility] Chloride 104 94 - 109 [place] mmol/L [facility] Carbon Dioxide 30 20 - 32 [place] mmol/L [facility] Anion Gap 8 6 - 17 [place] mmol/L [facility] Glucose 100 (H) 60 - 99 [place] mg/dL [facility] Urea Nitrogen 16 7 - 30 [place] mg/dL [facility] Creatinine 1.02 0.66 - [place] 1.25 mg/dL [facility] Comment: New IDMS-traceable calibration beginning 06/06/07 GFR Estimate 74 >60 mL/min/1.7m2 [place] E AGAN [facility] GFR Estimate If Black 89 >60 mL/min/1.7m2 F [facility] Calcium 9.6 8.5 - 10.4 mg/dL [facility] Bilirubin Total 0.3 0.2 - 1.3 mg/dL [facility] Albumin 4.2 3.3 - 4.9 g/dL [facility] Comment: Reference range changed on 10/07. Protein Total 7.4 6.8 - 8.8 g/dL [facility] Comment: As of 07, reference range reflects plasma specimen type. Alkaline Phosphatase 108 40 - 150 U/L [facility] ALT 24 0 - 70 U/L [facility] AST 33 0 - 55 U/L [facility] CLIN IC LAB Specimen Anatomical Collection Method Collection Time Receive d Time (Source) Location / / Volume Laterality 10/19/2008 11:29 10/19/2008 AM CDT 11:31 AM CDT Nasir Velazquez MD LABORATORY Performing Organization Address City/[facility]/ZIP Code Phon e Number [facility] [address] [place] [address] [facility] LIPID PANEL, REFLEX TO DIRECT LDL (10/19/2008 11:29 AM CDT) athologist Signature Cholesterol 177 0 - 200 [facility] mg/dL CLINIC LAB Comment: LDL [...] mg/dL. Triglycerides 116 0 - 150 mg/dL [facility] HDL Cholesterol 41 40 - 110 mg/dL [facility] LDL Cholesterol Calculated 113 0 - 129 mg/dL [facility] Comment: LDL Cholesterol is the primary guide to therapy: LDL-cholesterol goal in high risk patients is <100 mg/dL and in very high risk patients is <70 mg/dL. VLDL-Cholesterol 23 0 - 30 mg/dL [facility] Cholesterol/HDL Ratio 4.3 0.0 - 5.0 [facility] Specimen Anatomical Collection Method Collection Time Receive d Time (Source) Location / / Volume Laterality 10/19/2008 11:29 10/19/2008 AM CDT 11:31 AM CDT Nasir Velazquez MD LABORATORY Performing Organization Address City/[facility]/ZIP Code Phon e Number [facility] [address] [facility] [place] [address] [facility] documented in this encounter Visit Diagnoses Diagnosis Foot pain - Primary Pain in limb Need for prophylactic vaccination with t etanus-diphtheria (Td) Pes planus Flat foot BENIGN HYPERTENSION Essential hypertension, benign Mixed hyperlipidemia documented in this encounter Care Teams Enterprise Security Architect Relationship Specialty Start Date End Date Nasir Velazquez MD PCP - General 02/18/99 10/06/13 [facility] [address] [place] [address] documented as of this encounter
--- OUTSIDE RECORDS SUMMARY | 2021-11-07 15:45 | XMS_ITS | Encounter Summary ---
:1945 Author Organization [place] Address [address] [facility] [place] [address] Care Team Providers Name Role Phone Nasir Velazquez MD Primary Care Provider [phone] Encounter Details Date Type Department Care Team Description 03/26/2009 Orders Only [facility] Maximilian Garcia SIS NOT YET Clinic [place] Conn PA-C DEFINED (Primary Dx) [address] [address] [place], [place] [phone] [address] Social History Tobacco Use Types Packs/Day Years Used Date Former Smoker Quit: 02/05/18 85 Alcohol Use Standard Drinks/Week Comments Yes 1.7 (1 standard drink = 0.6 oz pure alco hol) socially Sex Assigned at Date Recorded Male 01/15/2018 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
--- OUTSIDE RECORDS SUMMARY | 2021-11-07 15:45 | XMS_ITS | Encounter Summary ---
:1945 Author Organization [place] Address [facility]0 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 The NCEP recommends further evaluation of: patients with cholesterol <200 mg/dL if additional risk factors are present, cholesterol >240 mg/dL, triglycerides >150 mg/dL, or HDL <40 mg/dL. Triglycerides 212 (H) 0 - 150 mg/dL [facility] HDL Cholesterol 35 (L) 40 - 110 mg/dL [facility] LDL Cholesterol Calculated 108 0 - 129 mg/dL [facility] Comment: LDL Cholesterol is the primary guide to therapy: LDL-cholesterol goal in high risk patients is <100 mg/dL and in very high risk patients is <70 mg/dL. VLDL-Cholesterol 42 (H) 0 - 30 mg/dL [facility] Cholesterol/HDL Ratio 5.3 (H) 0.0 - 5.0 [facility] Specimen Anatomical Collection Method Collection Time Receive d Time (Source) Location / / Volume Laterality 06/30/2009 10:21 06/30/2009 AM CDT 10:23 AM CDT Maximilian Garcia PA-C LABORATORY Performing Organization Address City/State/ZIP Code Phon e Number [facility] [address] [place] [address] [facility] documented in this encounter Visit Diagnoses Diagnosis Mixed hyperlipidemia documented in this encounter Care Teams Track Laying Machine Operator Relationship Specialty Start Date End Date Nasir Velazquez MD PCP - General 02/18/99 10/06/13 [facility] [address] [place] [address] documented as of this encounter
--- OUTSIDE RECORDS SUMMARY | 2021-11-07 15:45 | XMS_ITS | Encounter Summary ---
:1945 Author Organization [place] Address [facility] [place] [address] Care Team Providers Name Role Phone Nasir Velazquez MD Primary Care Provider [phone] Reason for Visit Reason Onset Date Comments Refill Request 04/15/2007 several meds Encounter Details Date Type Department Care Team Description 04/15/2007 Refill [facility] Nasir Velazquez Refill Request (several Clinic Girard MD Geraldo meds) [address] [place], [place] [address] [facility] [address] [facility] [phone] [place] [address] (Wo rk) Social History Tobacco Use Types Packs/Day Years Used Date Former Smoker Quit: 02/05/18 85 Alcohol Use Standard Drinks/Week Comments Yes 1.7 (1 standard drink = 0.6 oz pure alco hol) socially Sex Assigned at Date Recorded Male 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 The meds are Doxazosin, Hydrochlorothiazide, Omeprazole, Omeprazole, Simvastatin. Carlos can be reached at [phone]. DL 3-10@1:42pm documented in this encounter Plan of Treatment Not on filedocumented as of this encounter Visit Diagnoses Diagnosis HYPERTROPHY of PROSTATE Hypertrophy of prostate without urinary obstruction and other lower urinary tract symptoms (LUTS) Essential hypertension, benign Esophageal reflux Mixed hyperlipidemia documented in this encounter Care Teams Aircraft Armament Mechanic Relationship Specialty Start Date End Date Nasir Velazquez MD PCP - General 02/18/99 10/06/13 [place] [id number] [place] [address] documented as of this encounter
--- OUTSIDE RECORDS SUMMARY | 2021-11-07 15:45 | XMS_ITS | Encounter Summary ---
:1945 Author Organization [place] Address [address] [place] [address] Care Team Providers Name Role Phone Nasir Velazquez MD Primary Care Provider [phone] Reason for Visit Reason Onset Date Comments Results 11/06/2008 Encounter Details Date Type Department Care Team Description 11/06/2008 Telephone [facility] Eag Pool Theodore, DPM Results [address] [facility] [place] [address] [facility] [address] [place], [place] [address] (Wo rk) Social History Tobacco Use Types Packs/Day Years Used Date Former Smoker Quit: 02/05/18 85 Alcohol Use Standard Drinks/Week Comments Yes 1.7 (1 standard drink = 0.6 oz pure alco hol) socially Sex Assigned at Date Recorded Male 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 Gave him results. He will set up appt for inj. Of both feet. 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 Will need to set up injection at [facility]. Telephone Encounter - Lexi Bartholomew - 11/06/2008 11:19 AM CDT Would like a call today as soon as x-ray results come back. Is near the clinic and would like to come in to get his injections. Please call [phone]. documented in this encounter Plan of Treatment Not on filedocumented as of this encounter Visit Diagnoses Diagnosis Arthralgia - Primary Pain in joint, site unspecified documented in this encounter Care Teams Dielectric Testing Machine Operator Relationship Specialty Start Date End Date Nasir Velazquez MD PCP - General 02/18/99 10/06/[address] [address] documented as of this encounter
--- OUTSIDE RECORDS SUMMARY | 2021-11-07 15:45 | XMS_ITS | Encounter Summary ---
:1945 Author Organization [place] Address [address] [facility] [place] [address] Care Team Providers Name Role Phone Nasir Velazquez MD Primary Care Provider [phone] Encounter Details Date Type Department Care Team Description 06/30/2010 Orders Only [facility] Hyp ertension goal BP (blood pressure) < 140/90; [facility] Hyperlipidemia LDL goal <130 ; [address] [facility] Special screening for malign ant neoplasm of prostate; [place] [address] HYPERTROPHY of PROSTATE [phone] Social History Tobacco Use Types Packs/Day Years [...] at Date Recorded Male 01/15/2018 11:39 PM KAIAKO KURA [place] MAORI documented as of this encounter Plan of [...] AM CDT) athologist Signature Creatinine 123 mg/dL [facility] Urine [facility] Albumin Urine 3 mg/L [facility] mg/L [facility] Albumin Urine 2.44 0 - 20 [facility] mg/g Cr mg/g Cr [facility] Specimen Anatomical Collection Method Collection Time Receive d Time (Source) Location / / Volume Laterality Urine specimen 06/30/2010 9:02 AM 011 9:03 (specimen) CDT AM CDT Nasir Velazquez MD LAB - URINE ORDERABLES Performing Organization Address City/State/ZIP Code Phon e Number [facility] [address] [place] [address] [facility] Prostate spec antigen screen (06/30/2010 9:01 AM CDT) athologist Signature PSA 0.59 0 - 4 ug/L [facility] Specimen Anatomical Collection Method Collection Time Receive d Time (Source) Location / / Volume Laterality Blood specimen 06/30/2010 9:01 AM 011 9:02 (specimen) CDT AM CDT Nasir Velazquez MD LAB - BLOOD ORDERABLES Performing Organization Address City/State/ZIP Code Phon e Number [facility] [address] [place] [address] [place] [facility]) Comprehensive metabolic panel (06/30/2010 9:01 AM CDT) P athologist Signature Sodium 144 133 - 144 [place] mmol/L [facility] Potassium 4.0 3.4 - 5.3 [place] mmol/L [facility] Chloride 103 94 - 109 [place] mmol/L [facility] Carbon Dioxide 31 20 - 32 [place] mmol/L [facility] Anion Gap 10 6 - 17 [place] mmol/L [facility] Glucose 100 (H) 60 - 99 [place] mg/dL [facility] Urea Nitrogen 17 7 - 30 [place] mg/dL [facility] Creatinine 1.05 0.66 - [place] 1.25 mg/dL [facility] GFR Estimate 71 >60 [place] mL/min/1.7 [facility] m2 LAB GFR Estimate If 86 >60 [place] Black mL/min/1.7 [facility] m2 LAB Calcium 9.3 8.5 - 10.4 [place] mg/dL [facility] Bilirubin Total 0.8 0.2 - 1.3 [place] mg/dL [facility] Albumin 4.2 3.3 - 4.9 [place] g/dL [facility] Comment: Reference range changed on 10/07. Protein Total 7.1 6.8 - 8.8 g/dL [facility] Comment: As of 07, reference range reflects plasma specimen type. Alkaline Phosphatase 100 40 - 150 U/L [facility] ALT 29 0 - 70 U/L [facility] AST 29 0 - 55 U/L [facility] Specimen Anatomical Collection Method Collection Time Receive d Time (Source) Location / / Volume Laterality Blood specimen 06/30/2010 9:01 AM 011 9:02 (specimen) CDT AM CDT Nasir Velazquez MD LAB - BLOOD ORDERABLES Performing Organization Address City/State/ZIP Code Phon e Number [facility] [address] [place] [address] [facility] TSH with free T4 reflex (06/30/2010 9:01 AM CDT) athologist Signature TSH 1.89 0.4 - 5.0 [facility] mU/L [facility] Specimen Anatomical Collection Method Collection Time Receive d Time (Source) Location / / Volume Laterality Blood specimen 06/30/2010 9:01 AM 011 9:02 (specimen) CDT AM CDT Nasir Velazquez MD LAB - BLOOD ORDERABLES Performing Organization Address City/[facility]/ZIP Code Phon e Number [facility] [address] [place] [address] [facility] (ABNORMAL) Lipid panel reflex to direct LDL (06/30/2010 9:01 AM CDT) athologist Signature Cholesterol 164 0 - 200 [facility] mg/dL CLINIC LAB Comment: LDL Cholesterol is the primary guide to therapy. The NCEP recommends further evaluation of: patients with cholesterol greater than 200 mg/dL if additional risk facto rs are present, cholesterol greater than 240 mg/dL, triglycerides greater than 1 50 mg/dL, or HDL less than 40 mg/dL. Triglycerides 187 (H) 0 - 150 mg/dL [facility] HDL Cholesterol 40 40 - 110 mg/dL [facility] LDL Cholesterol Calculated 87 0 - 129 mg/dL [facility] Comment: LDL Cholesterol is the primary guide to therapy: LDL-cholesterol goal in high risk patients is <100 mg/dL and in very high risk patients is <70 mg/dL. VLDL-Cholesterol 37 (H) 0 - 30 mg/dL [facility] Cholesterol/HDL Ratio 4.2 0.0 - 5.0 [facility] Specimen Anatomical Collection Method Collection Time Receive d Time (Source) Location / / Volume Laterality Blood specimen 06/30/2010 9:01 AM 011 9:02 (specimen) CDT AM CDT Nasir Velazquez MD LAB - BLOOD ORDERABLES Performing Organization Address City/[facility]/ZIP Code Phon e Number [facility] [address] [place] [address] [facility] (ABNORMAL) CBC with platelets (06/30/2010 9:01 AM CDT) Analysis Performed At Patho logist Time Signature WBC 5.2 4.0 - 11.0 [place] 10e9/L [facility] RBC Count 4.60 4.4 - 5.9 [place] 10e12/L [facility] Hemoglobin 13.3 13.3 - [place] 17.7 g/dL [facility] Hematocrit 38.9 (L) 40.0 - [place] 53.0 % [facility] MCV 85 78 - 100 [facility] LAB MCH 28.9 26.5 - [place] 33.0 pg [facility] MCHC 34.2 31.5 - [place] 36.5 g/dL [facility] RDW 13.1 10.0 - [place] 15.0 % [facility] Platelet Count 159 150 - 450 [place] 10e9/L [facility] Specimen Anatomical Collection Method Collection Time Receive d Time (Source) Location / / Volume Laterality Blood specimen 06/30/2010 9:01 AM 011 9:02 (specimen) CDT AM CDT Nasir Velazquez MD LAB - BLOOD ORDERABLES Performing Organization Address City/State/ZIP Code Phon e Number [facility] [address] [place] [address] [facility] documented in this encounter Visit Diagnoses Diagnosis Hypertension goal BP (blood pressure) < 140/90 Unspecified essential hypertension Hyperlipidemia LDL goal <130 Other and unspecified hyperlipidemia Special screening for malignant neoplasm of prostate HYPERTROPHY of PROSTATE Hypertrophy of prostate without urinary obstruction and other lower urinary tract symptoms (LUTS) documented in this encounter Care Teams Transformation Analyst Relationship Specialty Start Date End Date Nasir Velazquez MD PCP - General 02/18/99 10/06/13 [facility] [address] [place] [address] documented as of this encounter
--- OUTSIDE RECORDS SUMMARY | 2021-11-07 15:45 | XMS_ITS | Encounter Summary ---
:1945 Author Organization [place] Address [facility] [place] [address] Care Team Providers Name Role Phone Nasir Velazquez MD Primary Care Provider [phone] Reason for Visit Reason Onset Date Comments Refill Request 08/20/2008 omperazole Encounter Details Date Type Department Care Team Description 08/20/2008 Refill [facility] Nasir Velazquez Refill Request Clinic Candy Chow MD (omperazole) [address] [place] [address] [place] [address] [facility] [phone] [place] [address] (Wo rk) Social History Tobacco Use Types Packs/Day Years Used Date Former Smoker Quit: 02/05/18 85 Alcohol Use Standard Drinks/Week Comments Yes 1.7 (1 standard drink = 0.6 oz pure alco hol) socially Sex Assigned at Date Recorded Male 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 Please send a 30 day Rx to [facility] pharmacy in [place] ([place]). He also needs 90 day prior auth thru [employer]. Carlos can be reached at [phone]. DL 7-15@4:03pm documented in this encounter Plan of Treatment Not on filedocumented as of this encounter Visit Diagnoses Diagnosis Esophageal reflux documented in this encounter Care Teams Machine Hose Cutter Relationship Specialty Start Date End Date Nasir Velazquez MD PCP - General 02/18/99 10/06/13 [place] [address] [place], [place] [address] documented as of this encounter
--- OUTSIDE RECORDS SUMMARY | 2021-11-07 15:45 | XMS_ITS | Encounter Summary ---
:1945 Author Organization [place] Address [facility] [place] [address] Care Team Providers Name Role Phone Nasir Velazquez MD Primary Care Provider [phone] Reason for Visit Reason Onset Date Comments Refill Request 08/06/2008 Omeperazole Encounter Details Date Type Department Care Team Description 08/06/2008 MyC Refill [facility] Nasir Velazquez Refill Request Clinic Candy Chow MD (Omeperazole) [address] [place], [place] CLINIC [address] [address] [facility] [phone] [place] [address] (Wo rk) Social History Tobacco Use Types Packs/Day Years Used Date Former Smoker Quit: 02/05/18 85 Alcohol Use Standard Drinks/Week Comments Yes 1.7 (1 standard drink = 0.6 oz pure alco hol) socially Sex Assigned at Date Recorded 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 documented in this encounter Plan of Treatment Not on filedocumented as of this encounter Visit Diagnoses Diagnosis Esophageal reflux documented in this encounter Care Teams Rn Baby Relationship Specialty Start Date End Date Nasir Velazquez MD PCP - General 02/18/99 10/06/13 [place] [address] [place] [address] documented as of this encounter
--- OUTSIDE RECORDS SUMMARY | 2021-11-07 15:45 | XMS_ITS | Encounter Summary ---
:1945 Author Organization [place] Address [address] [facility] [place] [address] Care Team Providers Name Role Phone Nasir Velazquez MD Primary Care Provider [phone] Reason for Visit Reason Comments Musculoskeletal Problem bilateral foot pain. pt had injections at [facility] November of 2008. 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 Pt is requesting a re-peat of [...] Schedule fluro guided injection 2nd/3rd TMTjoint w/ [facility]. Also discussed if injection fail to improve symptoms, pt may require surgical arthrodesis. documented in this encounter Nursing Notes 07/01/2010 11:15 AM CDT >> ANGELIA GRAFF SunJuly 01, 2010 11:35 AM Patient presents with: Musculoskeletal Problem - bilateral foot pain. pt had injections at [facility]. November of 2008. Initial BP 142/90 Estimated [...] limb documented in this encounter Care Teams Director Of Nurses Registry Relationship Specialty Start Date End Date Nasir Velazquez MD PCP - General 02/18/99 10/06/[address] [address] documented as of this encounter
--- OUTSIDE RECORDS SUMMARY | 2021-11-07 15:45 | XMS_ITS | Encounter Summary ---
:1945 Author Organization [place] Address [address] [facility] 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 [address] [place] [address] documented as of this encounter
--- OUTSIDE RECORDS SUMMARY | 2021-11-07 15:45 | XMS_ITS | Encounter Summary ---
:1945 Author Organization [place] Address [facility] [place] [address] Care Team Providers Name Role Phone Nasir Velazquez MD Primary Care Provider [phone] Reason for Visit Reason Onset Date Comments Refill Request 10/17/2007 Encounter Details Date Type Department Care Team Description 10/17/2007 Refill [facility] Nasir Velazquez, Refill Request Candy [place]DIV[place] [address] [place] [address] [address] [facility] [phone] [facility] [address] (Wo rk) Social History Tobacco Use Types Packs/Day Years Used Date Former Smoker Quit: 02/05/18 85 Alcohol Use Standard Drinks/Week Comments Yes 1.7 (1 standard drink = 0.6 oz pure alco hol) socially Sex Assigned at Date Recorded Male 01/15/2018 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 Sharri Tavera RN documented in this encounter Plan of Treatment Not on filedocumented as of this encounter Visit Diagnoses Diagnosis Mixed hyperlipidemia Essential hypertension, benign documented in this encounter Care Teams Antenna Specialist Relationship Specialty Start Date End Date Nasir Velazquez MD PCP - General 02/18/99 10/06/13 [place] [address] [place] [address] documented as of this encounter
--- OUTSIDE RECORDS SUMMARY | 2021-11-07 15:45 | XMS_ITS | Encounter Summary ---
:1945 Author Organization [place] Address [facility] [place] [address] Care Team Providers Name Role Phone Nasir Velazquez MD Primary Care Provider [phone] Reason for Visit Reason Onset Date Comments Erroneous encounter-disregard 03/17/2009 Encounter Details Date Type Department Care Team Description 03/17/2009 Telephone [facility] Nasir Velazquez [facility] MD Geraldo encounter-disregard [address] [place], [place] [address] [facility] [address] [facility] [phone] [place] [address] (Wo rk) Social History Tobacco Use Types Packs/Day Years Used Date Former Smoker Quit: 02/05/18 85 Alcohol Use Standard Drinks/Week Comments Yes 1.7 (1 standard drink = 0.6 oz pure alco hol) socially Sex Assigned at Date Recorded Male 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 S TRAINING COORDINATOR documented in this encounter Plan of Treatment Not on filedocumented as of this encounter Visit Diagnoses Not on filedocumented in this encounter Care Teams Blindstitch Machine Operator Relationship Specialty Start Date End Date Nasir Velazquez MD PCP - General 02/18/99 10/06/13 [facility] [address] [place] [address] documented as of this encounter
--- OUTSIDE RECORDS SUMMARY | 2021-11-07 15:45 | XMS_ITS | Encounter Summary ---
:1945 Author Organization [place] Address [address] [facility] [place] [address] Care Team Providers Name Role Phone Nasir Velazquez MD Primary Care Provider [phone] Encounter Details Date Type Department Care Team Description 08/11/2008 Medical Correspondence [facility] Lesa Velazquez [facility] MD Geraldo [address] [place], [place] CLINIC [address] [address] [facility] [phone] [place], [place] [id number] Social History Tobacco Use Types Packs/Day Years Used Date Former Smoker Quit: 02/05/18 85 Alcohol Use Standard Drinks/Week Comments Yes 1.7 (1 standard drink = 0.6 oz pure alco hol) socially Sex Assigned at Date Recorded Male 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
--- OUTSIDE RECORDS SUMMARY | 2021-11-07 15:45 | XMS_ITS | Encounter Summary ---
:1945 Author Organization [place] Address [address] [facility] 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 documented in this encounter Results CT SCAN CHEST (03/20/2008 12:45 PM STRUCTURAL STEEL SHOP SUPERVISOR) Specimen (Source) Anatomical Collection Method Collection Time Re ceived Time Location / / Volume Laterality 03/20/2008 12:45 PM STRUCTURAL STEEL SHOP SUPERVISOR Impressions RADIOLOGY RESULTS - 03/22/2008 9:32 AM [...] on filedocumented in this encounter Care Teams Production Assembly Supervisor Relationship Specialty Start Date End Date Nasir Velazquez MD PCP - General 02/18/99 10/06/13 [facility] [address] [place] [address] documented as of this encounter
--- OUTSIDE RECORDS SUMMARY | 2021-11-07 15:45 | XMS_ITS | Encounter Summary ---
:1945 Author Organization [place] Address [facility] 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
--- OUTSIDE RECORDS SUMMARY | 2021-11-07 15:45 | XMS_ITS | Encounter Summary ---
:1945 Author Organization [place] Address [address] [facility] [place] [address] Care Team Providers Name Role Phone Nasir Velazquez MD Primary Care Provider [phone] Reason for Visit Reason Comments Referral for CT of the chest. Blood Draw pt is fasting for lipids trini t. needs refills Encounter Details Date Type Department Care Team Description 03/16/[address] [facility] Nasir Velazquez Mixed Hyperlipidemia (Primary Dx); Clinic Candy Chow MD Essential Hypertension, Benign; [address] [facility] Pulmonary Nodules; [place], [place] CLINIC Special Screening for Malignant Neoplasm of Prostate; [phone] [address] [facility] TDaP Vaccine [phone] [place] [address] Social History Tobacco Use Types Packs/Day Years Used Date Former Smoker Quit: 02/05/18 85 Alcohol Use Standard Drinks/Week Comments Yes 1.7 (1 standard drink = 0.6 oz pure alco hol) socially Sex Assigned at Date Recorded Male 01/15/2018 11:39 PM SALES 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 documented as of this encounter Last Filed Vital Signs Vital Sign Reading Time Taken Comments Blood Pressure 130/80 03/16/2008 10:45 AM SALES 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 Pulse 58 03/16/2008 10:45 AM SALES 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 Temperature 36.8 ??C (98.3 ??F) 03/16/2008 10:45 AM SALES 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 Respiratory Rate - - Oxygen Saturation 95% 03/16/2008 10:45 AM SALES 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 Inhaled Oxygen Concentration - - Weight 90.4 kg (199 lb 6 oz) 03/16/2008 10:45 AM SALES 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 Height 175.3 cm (5' 9) 03/16/2008 10:45 AM SALES 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 Body Mass Index 29.44 03/16/2008 10:45 AM SALES 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 documented in this encounter Progress Notes Nasir [...] all reviewed and updated in [facility]. Current outpatient prescriptions prior to encounter: DOXAZOSIN [...] of Prostate Comment: Plan: PROSTATE SPEC ANTIGEN,SCREEN S 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 documented in this encounter Nursing Notes 03/16/2008 10:45 AM CST >> [facility] Mar 16, 2008 11:05 AM Patient presents [...] maintenance- psa due after April. Phoenix Dubois BIOINFORMATICIST documented in this encounter Plan of Treatment Not on filedocumented as of this encounter Procedures Procedure Name Priority Date/Time Associated Diagnosis Comme nts HCL PROSTATE SPEC Routine 03/16/2008 11:33 Special Screening f or Results for this ANTIGEN,SCREEN AM SALES 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 Malignant Neoplasm of proc edure are in Prostate the results section. HCL COMPREHENSIVE Routine 03/16/2008 11:33 Essential Result s for this METABOLIC PANEL AM SALES 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 Hypertension, Benign proc edure are in the results section. HCL ALBUMIN URINE Routine 03/16/2008 11:33 Essential Result s for this (INC CREAT) AM SALES 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 Hypertension, Benign procedu re are in the results section. CL AFF A.M.A. LIPID Routine 03/16/2008 11:33 Mixed Hyperlipide jolynn Results for this PANEL AM SALES 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 procedure are i n the results section. documented in this encounter Results PROSTATE SPEC ANTIGEN,SCREEN (03/16/2008 11:33 AM SALES 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) P athologist Signature PSA 0.39 0 - 4 ug/L [facility] Specimen Anatomical Collection Method Collection Time Receive d Time (Source) Location / / Volume Laterality 03/16/2008 11:33 03/16/2008 AM SALES 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 11:35 AM SALES 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 Nasir Velazquez MD LABORATORY Performing Organization Address City/State/ZIP Code Phon e Number [facility] [address] [place] [address] [facility] MICROALBUMIN (INC URINE CREAT) (03/16/2008 11:33 AM SALES 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) athologist Signature Creatinine 182 mg/dL [facility] Urine [facility] Albumin Urine 6 mg/L [facility] mg/L [facility] Albumin Urine 3.13 0 - 20 [facility] mg/g Cr mg/g Cr [facility] Specimen Anatomical Collection Method Collection Time Receive d Time (Source) Location / / Volume Laterality 03/16/2008 11:33 03/16/2008 AM SALES 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 11:35 AM SALES 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 Nasir Velazquez MD LABORATORY Performing Organization Address City/State/ZIP Code Phon e Number [facility] [address] [place] [address] [facility] (ABNORMAL) A.M.A. COMPREHENSIVE MET.PANEL (03/16/2008 11:33 AM SALES 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) athologist Signature Sodium 146 (H) 133 - 144 [place] mmol/L [facility] Potassium 4.1 3.4 - 5.3 [facility] mmol/L [facility] Chloride 108 94 - 109 [facility] mmol/L [facility] Carbon Dioxide 22 20 - 32 [facility] mmol/L [facility] Anion Gap 16 6 - 17 [place] mmol/L [facility] Glucose 99 60 - 99 [facility] mg/dL [facility] Urea Nitrogen 19 7 - 30 [facility] mg/dL [facility] Creatinine 0.96 0.66 - [facility] 1.25 mg/dL [facility] Comment: New IDMS-traceable calibration beginning 06/06/07 GFR Estimate 79 >60 mL/min/1.7m2 [place] E [facility] GFR Estimate If Black >90 >60 mL/min/1.7m2 [facility] Calcium 9.5 8.5 - 10.4 mg/dL [facility] Bilirubin Total 0.4 0.2 - 1.3 mg/dL [facility] Albumin 4.5 3.3 - 4.9 g/dL [facility] Comment: Reference range changed on 10/07. Protein Total 7.4 6.8 - 8.8 g/dL [place] [facility] Comment: As of 07, reference range reflects plasma specimen type. Alkaline Phosphatase 129 40 - 150 U/L [facility] ALT 36 0 - 70 U/L [facility] LAB AST 35 0 - 55 U/L [facility] LAB Specimen Anatomical Collection Method Collection Time Receive d Time (Source) Location / / Volume Laterality 03/16/2008 11:33 03/16/2008 AM SALES 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 11:35 AM SALES 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 Nasir Velazquez MD LABORATORY Performing Organization Address City/State/ZIP Code Phon e Number [facility] [address] [place] [address] [facility] (ABNORMAL) A.M.A. LIPID PANEL (03/16/2008 11:33 AM SALES 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) athologist Signature Cholesterol 183 0 - 200 [facility] mg/dL CLINIC LAB Comment: LDL Cholesterol [...] Triglycerides 178 (H) 0 - 150 mg/dL [facility] AN [facility] HDL Cholesterol 48 40 - 110 mg/dL [facility] LDL Cholesterol Calculated 99 0 - 129 mg/dL [facility] Comment: LDL Cholesterol is the primary guide to therapy: LDL-cholesterol goal in high risk patients is <100 mg/dL and in very high risk patients is <70 mg/dL. VLDL-Cholesterol 36 (H) 0 - 30 mg/dL [facility] Cholesterol/HDL Ratio 3.8 0.0 - 5.0 [facility] Specimen Anatomical Collection Method Collection Time Receive d Time (Source) Location / / Volume Laterality 03/16/2008 11:33 03/16/2008 AM SALES 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 11:35 AM SALES 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 Nasir Velazquez MD LABORATORY Performing Organization Address City/State/ZIP Code Phon e Number [address] [address] [facility] documented in this encounter Visit Diagnoses Diagnosis Mixed hyperlipidemia - Primary Essential hypertension, benign Pulmonary nodules Other nonspecific abnormal finding of chidi ng field Special screening for malignant neoplasm of prostate Tdap vaccine Need for prophylactic vaccination with c ombined yoisqgrwcv-ioelqao-hapkscbzv (DTP) vaccine documented in this encounter Care Teams Treating Engineer Helper Relationship Specialty Start Date End Date Nasir Velazquez MD PCP - General 02/18/99 10/06/13 [facility] [address] [place] [address] documented as of this encounter
--- OUTSIDE RECORDS SUMMARY | 2021-11-07 15:45 | XMS_ITS | Encounter Summary ---
:1945 Author Organization [place] Address [facility] [place] [address] Care Team Providers Name Role Phone Nasir Velazquez MD Primary Care Provider [phone] Reason for Visit Reason Onset Date Comments Orders 03/10/2009 [facility] Encounter Details Date Type Department Care Team Description 03/10/2009 Telephone [facility] Nasir Velazquez Orders ([facility] [place]) [place] [address] [place] [address] [facility] [phone] [place] [address] (Wo rk) Social History Tobacco Use Types Packs/Day Years Used Date Former Smoker Quit: 02/05/18 85 Alcohol Use Standard Drinks/Week Comments Yes 1.7 (1 standard drink = 0.6 oz pure alco hol) socially Sex Assigned at Date Recorded Male 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 Requires Doctor Signature. Form put in Dr. Velazquez's box to sign. Chelsie Clifford RN' L MILL OPERATOR documented in this encounter Plan of Treatment Not on filedocumented as of this encounter Visit Diagnoses Not on filedocumented in this encounter Care Teams Finished Goods Stock Clerk Relationship Specialty Start Date End Date Nasir Velazquez MD PCP - General 02/18/99 10/06/13 [facility] [address] [place] [address] documented as of this encounter
--- OUTSIDE RECORDS SUMMARY | 2021-11-07 15:45 | XMS_ITS | Encounter Summary ---
:1945 Author Organization [place] Address [facility] [address] Care Team Providers Name Role Phone Nasir Velazquez MD Primary Care Provider [phone] Reason for Visit Reason Onset Date Comments Refill Request 12/20/2009 Encounter Details Date Type Department Care Team Description 12/20/2009 MyC Refill [facility] Nasir Velaz[place] [address] [place] [address] [address] [facility] [phone] [facility] [address] [address] (Wo rk) Social History Tobacco Use Types Packs/Day Years Used Date Former Smoker Quit: 02/05/18 85 Alcohol Use Standard Drinks/Week Comments Yes 1.7 (1 standard drink = 0.6 oz pure alco hol) socially Sex Assigned at Date Recorded Male 01/15/2018 11:39 PM CERNER ANALYST documented as of this encounter Miscellaneous Notes Telephone Encounter - Chelsie Clifford - 12/20/2009 12:16 PM CST DOXAZOSIN MESYLATE 4 MG OR TABS 90 Tab 1 04/30/2009 ? Sig: ??1 TABLET DAILY ? Class: ??Fax ? Route: ??Oral ? Order: ??[id number] ?? Pharmacy [facility] ?? Associated Diagnoses HYPERTROPHY of PROSTATE ?? Refill done. Chelsie Clifford RN ER ANALYST Telephone Encounter - Chelsie Clifford - 12/20/2009 12:12 PM CERNER ANALYST Message from [employer]: Terry Montero would like a refill of the following medications: DOXAZOSIN MESYLATE 4 MG OR TABS [Nasir Velazquez MD] Preferred pharmacy: [facility] Comment: ER ANALYST documented in this encounter Plan of Treatment Not on filedocumented as of this encounter Visit Diagnoses Diagnosis HYPERTROPHY of PROSTATE - Primary Hypertrophy of prostate without urinary obstruction and other lower urinary tract symptoms (LUTS) documented in this encounter Care Teams Telegraph Repeater Installer Relationship Specialty Start Date End Date Nasir Velazquez MD PCP - General 02/18/99 10/06/[address] [address] documented as of this encounter
--- OUTSIDE RECORDS SUMMARY | 2021-11-07 15:45 | XMS_ITS | Encounter Summary ---
:1945 Author Organization [place] Address [facility] [place] [address] Care Team Providers Name Role Phone Nasir Velazquez MD Primary Care Provider [phone] Encounter Details Date Type Department Care Team Description 04/23/2009 Orders Only [facility] Mix ed Hyperlipidemia; [place] [facility] Palpitation; [address] [facility] Screening PSA (Prostate Spec ific Antigen); [place] [address] HYPERTROPHY of PROSTATE [phone] Social History Tobacco Use Types Packs/Day Years Used Date Former Smoker Quit: 02/05/18 85 Alcohol Use Standard Drinks/Week Comments Yes 1.7 (1 standard drink = 0.6 oz pure alco hol) socially Sex Assigned at Date Recorded Male 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 [address] [place] [address] [facility] T4, FREE, SERUM (04/23/2009 8:36 AM CDT) athologist Signature T4 Free 1.15 0.70 - 1.85 [facility] ng/dL [facility] Specimen Anatomical Collection Method Collection Time Receive d Time (Source) Location / / Volume Laterality 04/23/2009 8:36 AM 0 8:37 CDT AM CDT Kedar Maki PA-C LABORATORY Performing Organization Address City/[facility] Phon e Number [facility] [address] [place] [address] [facility] TSH- (04/23/2009 8:36 AM CDT) athologist Signature TSH 2.27 0.4 - 5.0 [facility] mU/L [facility] Specimen Anatomical Collection Method Collection Time Receive d Time (Source) Location / / Volume Laterality 04/23/2009 8:36 AM 0 8:37 CDT AM CDT Kedar Maki PA-C LABORATORY Performing Organization Address City/[facility]/ZIP Code Phon e Number [facility] [address] [place] [address] [facility] (ABNORMAL) LIPID PANEL, REFLEX TO DIRECT LDL (04/23/2009 8:36 AM CDT) athologist Signature Cholesterol 155 0 - 200 [facility] mg/dL CLINIC LAB Comment: LDL Cholesterol is the primary guide to therapy. The NCEP recommends further evaluation of: patients with cholesterol <200 mg/dL if additional risk factors are present, cholesterol >240 mg/dL, triglycerides >150 mg/dL, or HDL <40 mg/dL. Triglycerides 222 (H) 0 - 150 mg/dL [facility] HDL Cholesterol 35 (L) 40 - 110 mg/dL [facility] LDL Cholesterol Calculated 76 0 - 129 mg/dL [facility] Comment: LDL Cholesterol is the primary guide to therapy: LDL-cholesterol goal in high risk patients is <100 mg/dL and in very high risk patients is <70 mg/dL. VLDL-Cholesterol 44 (H) 0 - 30 mg/dL [facility] Cholesterol/HDL Ratio 4.4 0.0 - 5.0 [facility] Specimen Anatomical Collection Method Collection Time Receive d Time (Source) Location / / Volume Laterality 04/23/2009 8:36 AM 0 8:37 CDT AM CDT Kedar Maki PA-C LABORATORY Performing Organization Address City/State/ZIP Code Phon e Number [facility] [address] [place] [address] [facility] documented in this encounter Visit Diagnoses Diagnosis Mixed hyperlipidemia Palpitation Palpitations Screening PSA (prostate specific antigen ) Special screening for malignant neoplasm of prostate HYPERTROPHY of PROSTATE Hypertrophy of prostate without urinary obstruction and other lower urinary tract symptoms (LUTS) documented in this encounter Care Teams Investor Relations Manager Relationship Specialty Start Date End Date Nasir Velazquez MD PCP - General 02/18/99 10/06/13 [facility] [address] [place] [address] documented as of this encounter
--- OUTSIDE RECORDS SUMMARY | 2021-11-07 15:46 | XMS_ITS | Encounter Summary ---
:1945 Author Organization [place] Address [address] [place] [address] Care Team Providers Name Role Phone Nasir Velazquez MD Primary Care Provider [phone] Reason for Visit Reason Comments RECHECK labs and recheck meds Encounter Details Date Type Department Care Team Description 02/03/2005 Office Visit [facility] Diogo Velazquez BENIGN H YPERTENSION; Clinic Candy Rojas MD MIXED HYPERLIPIDEMIA; [address] [facility] [id number] [place] [facility]FLUX ; [place], [place] AV HYPERTROPHY of PROSTATE ; [address] [place], [place] NUTRITION DEFICIENCY NEC [phone] (Wo rk) Social History Tobacco Use Types Packs/Day Years Used Date Former Smoker Quit: 02/05/18 85 Alcohol Use Standard Drinks/Week Comments Yes 1.7 (1 standard drink = 0.6 oz pure alco hol) socially Sex Assigned at Date Recorded Male 01/15/2018 11:39 PM 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 PLAYER documented as of this encounter Last Filed Vital Signs Vital Sign Reading Time Taken Comments Blood Pressure 120/82 02/03/2005 1:30 PM LACROSSE PLAYER Pulse 77 02/03/2005 1:30 PM LACROSSE PLAYER Temperature 36.6 ??C (97.9 ??F) 02/03/2005 1:30 PM LACROSSE PLAYER Respiratory Rate - - Oxygen Saturation 96% 02/03/2005 1:30 PM LACROSSE PLAYER Inhaled Oxygen Concentration - - Weight 87.5 kg (193 lb) 02/03/2005 1:30 PM LACROSSE PLAYER Height 177.8 cm (5' 10) 02/03/2005 1:30 PM LACROSSE PLAYER Body Mass Index 27.69 02/03/2005 1:30 PM LACROSSE PLAYER documented in this encounter Progress Notes Diogo [...] I sent the Rx's to the pharmacy. (In*Situ [facility] ) OSSE PLAYER documented in this encounter Nursing Notes 02/03/2005 [...] deficiency documented in this encounter Care Teams Chief Mechanical Engineer Relationship Specialty Start Date End Date Nasir Velazquez MD PCP - General 02/18/99 10/06/13 [place] [address] [place] [address] documented as of this encounter
--- OUTSIDE RECORDS SUMMARY | 2021-11-07 15:46 | XMS_ITS | Encounter Summary ---
:1945 Author Organization [place] Address [address] [facility] 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 [facility] form filled out and faxed. He will come in 03/14 for follow up. GER STORAGE Telephone Encounter - Aniya Arce - 12/26/2005 11:59 AM CST [facility] Ph[facility] . Phone: . . He states that he only pays $3 for 90 pills using [facility] and he pays $14 for [address] [facility]. He will run out of meds before [facility] gets them to him. He does not want to pay $14 at [facility], is it ok to skip some pills inbetween? Call pt at home. Aniya Arce CMA Called for form from [facility], they will fax. GER STORAGE Telephone Encounter - Aniya Arce - 12/26/2005 11:43 AM MANAGER STORAGE Staff Message copied by ANIYA ARCE on 12/26/2005 at 11:43 AM ------ Message from: EDYTA MUNSON Created: 12/26/2005 at 11:30 AM Regarding: Phone Message Contact: Terry asked for a refill for Hydrochlorothiazide on 12-18-[address] Murali Velazquez. He went to wrongpharmacy. He uses [facility]. He only has 2 pills left. He would like our clinic to call [facility]'s in , to explain what happened. Terry can be reached at [phone]. 12-26@11:29am GER STORAGE documented in this encounter Plan of Treatment Not on filedocumented as of this encounter Visit Diagnoses Not on filedocumented in this encounter Care Teams Chocolate Dipper Relationship Specialty Start Date End Date Nasir Velazquez MD PCP - General 02/18/99 10/06/13 [place] [address] [place] [address] documented as of this encounter
--- OUTSIDE RECORDS SUMMARY | 2021-11-07 15:46 | XMS_ITS | Encounter Summary ---
:1945 Author Organization [place] Address [facility] [place] [address] Care Team Providers Name Role Phone Nasir Velazquez MD Primary Care Provider [phone] Reason for Visit Reason Onset Date Comments Call Back 03/29/2006 Encounter Details Date Type Department Care Team Description 03/29/2006 Telephone [facility] Yecenia Carreno MD Call Back [address] [address] [place] [address] (Wo rk) Social History Tobacco Use Types Packs/Day Years Used Date Former Smoker Quit: 02/05/18 85 Alcohol Use Standard Drinks/Week Comments Yes 1.7 (1 standard drink = 0.6 oz pure alco hol) socially Sex Assigned at Date Recorded Male 01/15/2018 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 Marlene Carreno MD ATIONAL PSYCHOLOGY PROFESSOR Telephone Encounter - SilvinoJenay - 03/29/2006 10:24 AM CST Pt returned your call from yesterday. He can be reached at [phone] when you get a chance. Phoenix Dubois COSMETOLOGY TEACHER ATIONAL PSYCHOLOGY PROFESSOR documented in this encounter Plan of Treatment Not on filedocumented as of this encounter Visit Diagnoses Diagnosis Cough - Primary documented in this encounter Care Teams Die Cast Engineer Relationship Specialty Start Date End Date Nasir Velazquez MD PCP - General 02/18/99 10/06/[address] [address] documented as of this encounter
--- OUTSIDE RECORDS SUMMARY | 2021-11-07 15:46 | XMS_ITS | Encounter Summary ---
:1945 Author Organization [place] Address [facility] [address] Care Team Providers Name Role Phone Scottie Velazquez MD Primary Care Provider [phone] Reason for Visit Reason Onset Date Comments Orders 01/08/2007 SEE NOTE Encounter Details Date Type Department Care Team Description 01/08/2007 Telephone [facility] Scottie Velazquez Orders (SEE NOTE) [place] [address] [place] [address] [facility] [phone] [place] [address] (Wo rk) Social History Tobacco Use Types Packs/Day Years Used Date Former Smoker Quit: 02/05/18 85 Alcohol Use Standard Drinks/Week Comments Yes 1.7 (1 standard drink = 0.6 oz pure alco hol) socially Sex Assigned at Date Recorded Male 01/15/2018 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 PER MACHINE Telephone Encounter - Marlene Carreno - 01/10/2007 1:04 PM CST Done, let pt know Marlene Carreno MD PER MACHINE Telephone Encounter - Phoenix Dubois - 01/08/2007 4:57 PM CST Staff Message copied by PHOENIX DUBOIS on 01/08/2007 at 4:57 PM ------ Message from: EDYTA MUNSON Created: 01/08/2007 at 3:21 PM Regarding: Phone Message/[place] Contact: Carlos would like to get a CT for his chest. He can be reached at [phone] till 2:00pm. After 2:00pm his cell [phone].WILL SEND MESSAGE TO MARELNE AND SCOTTIE SINCE SCOTTIE IS OFF THE NEXT 2 [address] 12-4@3:22pm PER MACHINE documented in this encounter Plan of Treatment Not on filedocumented as of this encounter Procedures Procedure Name Priority Date/Time Associated Diagnosis Comme nts HC CT THORAX W/O Routine 01/14/2007 11:26 AM Other diseases of Results for this CONT STRIPER MACHINE lung, not elsewhere procedur e are in classified the results section. documented in this encounter Results CT SCAN CHEST (01/14/2007 11:26 AM STRIPER MACHINE) Anatomical Region Laterality Modality Other Specimen (Source) Anatomical Collection Method Collection Time Re ceived Time Location / / Volume Laterality 01/14/2007 11:26 AM STRIPER MACHINE Impressions 01/14/2007 1:30 PM STRIPER MACHINE EXAM: ??CT CHEST FOR NODULE ??Jan 14 11:26:00 AM HISTORY: ??Followup pulmonary nodule. TECHNIQUE: ??Scans obtained from the [facility] through the diaphragm without IV contrast. [...] Primary documented in this encounter Care Teams Welder/Fitter Relationship Specialty Start Date End Date Scottie Velazquez MD PCP - General 02/18/99 10/06/13 [place] [id number] [place] [address] documented as of this encounter
--- OUTSIDE RECORDS SUMMARY | 2021-11-07 15:46 | XMS_ITS | Encounter Summary ---
:1945 Author Organization [place] Address [address] [facility] [place] [address] Care Team Providers Name Role Phone Nasir Velazquez MD Primary Care Provider [phone] Reason for Visit Reason Comments Blood Draw Encounter Details Date Type Department Care Team Description 02/01/2005 Orders Only [facility] ED HYPERLIPIDEMIA; [facility] BENIGN HYPERTENSION [address] [place] [address] Social History Tobacco Use Types Packs/Day Years Used Date Former Smoker Quit: 02/05/18 85 Alcohol Use Standard Drinks/Week Comments Yes 1.7 (1 standard drink = 0.6 oz pure alco hol) socially Sex Assigned at Date Recorded Male 01/15/2018 11:39 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 CL AFF A.M.A. LIPID Routine 02/01/2005 11:00 Mixed Hyperlipide jolynn Results for this PANEL AM SCREEN ROOM OPERATOR procedure are i n the results section. documented in this encounter Results A.M.A. COMPREHENSIVE MET.PANEL (02/01/2005 11:00 AM SCREEN ROOM OPERATOR) P athologist Signature Sodium 143 133 - 144 [facility] mmol/L [facility] Potassium 4.1 3.4 - 5.3 [facility] Chloride 103 94 - 109 [facility] [place] mmol/L [facility] Carbon Dioxide 30 20 - 32 [facility] mmol/L [facility] Anion Gap 11 6 - 17 [facility] mmol[facility]L [facility] Glucose 103 60 - 110 [facility] mg/dL [facility] Urea Nitrogen 16 7 - 30 [facility] mg/dL [facility] Creatinine 1.00 0.80 - [facility] [place] 1.50 mg/dL [facility] GFR Estimate >80 >60 [facility] mL/min/1.7 [facility] m2 GFR Estimate If >80 >60 [facility] Black mL/min/1.7 [facility] m2 Calcium 9.2 8.5 - 10.4 [facility] mg/dL [facility] Bilirubin Total 0.4 0.2 - 1.3 [facility] mg/dL [facility] Albumin 4.1 3.2 - 4.5 [facility] g/dL [facility] Protein Total 7.5 6.0 - 8.2 [facility] g/dL [facility] Alkaline 123 40 - 150 [facility] Phosphatase U/L [facility] ALT 65 0 - 70 U/L [facility] AST 38 0 - 55 U/L [facility] Specimen Anatomical Collection Method Collection Time Receive d Time (Source) Location / / Volume Laterality 02/01/2005 11:00 02/01/2005 AM SCREEN ROOM OPERATOR 11:01 AM SCREEN ROOM OPERATOR Diogo Velazquez MD LABORATORY Performing Organization Address City/State/ZIP Code Phon e Number [place] [id number] [place] [address] [facility] A.M.A. LIPID PANEL (02/01/2005 11:00 AM SCREEN ROOM OPERATOR) P athologist Signature Cholesterol 165 0 - 200 [facility] mg/dL CLINIC [facility] Comment: LDL Cholesterol is the primary guide to therapy: LDL-cholesterol goal in high risk patients is <100 mg/dL and in very high risk patients is <70 mg/dL. The NCEP recommends further evaluation of: patients with cholesterol <200 mg/dL if additional risk factors are present, cholesterol >240 mg/dL, triglycerides >150 mg/dL, or HDL <40 mg/dL. Triglycerides 117 0 - 150 mg/dL [facility] HDL Cholesterol 51 40 - 110 mg/dL [facility] LDL Cholesterol Calculated 91 0 - 129 mg/dL [facility] Comment: LDL Cholesterol is the primary guide to therapy: LDL-cholesterol goal in high risk patients is <100 mg/dL and in very high risk patients is <70 mg/dL. VLDL-Cholesterol 23 0 - 30 mg/dL [facility] Cholesterol/HDL Ratio 3.2 0.0 - 5.0 [facility] Specimen Anatomical Collection Method Collection Time Receive d Time (Source) Location / / Volume Laterality 02/01/2005 11:00 02/01/2005 AM SCREEN ROOM OPERATOR 11:01 AM SCREEN ROOM OPERATOR Diogo Velazquez MD LABORATORY Performing Organization Address City/State/ZIP Code Phon e Number [facility] [address] [place] [address] [facility] documented in this encounter Visit Diagnoses Diagnosis Mixed hyperlipidemia Essential hypertension, benign documented in this encounter Care Teams Dairy Equipment Repairer Relationship Specialty Start Date End Date Nasir Velazquez MD PCP - General 02/18/99 10/06/13 [facility] [address] [place] [address] documented as of this encounter
--- OUTSIDE RECORDS SUMMARY | 2021-11-07 15:46 | XMS_ITS | Encounter Summary ---
:1945 Author Organization [place] Address [address] [facility] [place] [address] Care Team Providers Name Role Phone Nasir Velazquez MD Primary Care Provider Reason for Visit Reason Comments Physical PX, discuss PSA, HX in famil y Encounter Details Date Type Department Care Team Description 04/08/2007 Office Visit [facility] Nasir Velazquez ROUTIN E MEDICAL EXAM (Primary Dx); Clinic Candy Chow MD BENIGN HYPERTENSION; [address] [facility] L[place]ANYA SCREENING MAL NEOP-PROSTATE; [place], [place] CLINIC MIXED HYPERLIPIDEMIA; [phone] [address] SCREENING-DIABETES MELLITUS; [phone] CERVICALGIA; [place], [place] OTHER LUNG DISEASE NEC; [address] HYPERTROPHY of PROSTATE ; [phone] (Wo rk) ESOPHAGEAL REFLUX Social History Tobacco Use Types Packs/Day Years Used Date Former Smoker Quit: 02/05/18 85 Alcohol Use Standard Drinks/Week Comments Yes 1.7 (1 standard drink = 0.6 oz pure alco hol) socially Sex Assigned at Date Recorded Male 01/15/2018 11:39 PM FLOTATION TENDER documented as of this encounter Last Filed Vital Signs Vital Sign Reading Time Taken Comments Blood Pressure 114/78 04/08/2007 9:30 AM FLOTATION TENDER Pulse 60 04/08/2007 9:30 AM FLOTATION TENDER Temperature 36.7 ??C (98.1 ??F) 04/08/2007 9:30 AM FLOTATION TENDER Respiratory Rate - - Oxygen Saturation 95% 04/08/2007 9:30 AM FLOTATION TENDER Inhaled Oxygen Concentration - - Weight 87.5 kg (193 lb) 04/08/2007 9:30 AM FLOTATION TENDER Height 175.3 cm (5' 9) 04/08/2007 9:30 AM FLOTATION TENDER Body Mass Index 28.5 04/08/2007 9:30 AM FLOTATION TENDER documented in this encounter Progress Notes [...] Years of Education: 15 Occupational History ??? [employer],[address] [place] [address] Social History Main Topics ??? Tobacco Use: [...] in old age ??? C.A.D. Maternal Uncle ME ??? Colon [place] Maternal Uncle ??? Prostatic [...] if symptoms are not as well controlled. ATION TENDER documented in this encounter Nursing Notes 04/08/2007 9:30 AM CST >> ALEXANDRIA GARCIA 04/08/2007 9:44 am Patient presents with: Physical - PX, discuss PSA, HX in family Terry Montero presents for as above. Initial BP 114/78 Pulse 60 Temp (Src) 98.1 (Oral) Ht 5' 9 (1.75m) Wt 193 lbs (87.5kg) SaO2 95% Body mass index is 28.49 kg/(m^2).. BP completed using cuff size: regular Alexandria Garcia NUTRITIONAL CHEMIST documented in this encounter Plan of Treatment Not on filedocumented as of this encounter Procedures Procedure Name Priority Date/Time Associated Diagnosis Comme nts HC CT THORAX W/O Routine 04/11/2007 11:12 Other diseases of chidi ng, Results for this CONT AM FLOTATION TENDER not elsewhere procedure are in classified the results section. HC X-RAY CERV Routine 04/08/2007 10:22 Cervicalgia Results fo r this SPINE 2-3 VIEWS AM FLOTATION TENDER procedure ar e in the results section. CREATININE, URINE Routine 04/08/2007 10:19 Benign Hypertension Results for this AM FLOTATION TENDER procedure are i n the results section. HCL PROSTATE SPEC Routine 04/08/2007 10:19 Screening Mal Resul ts for this ANTIGEN,SCREEN AM FLOTATION TENDER Neop-Prostate procedure ar e in the results section. HCL BASIC Routine 04/08/2007 10:19 Benign Hypertension Resu lts for this METABOLIC PANEL AM FLOTATION TENDER procedure ar e in the results section. HCL ALBUMIN URINE Routine 04/08/2007 10:19 Benign Hypertension Results for this (INC CREAT) AM FLOTATION TENDER procedure are i n the results section. HCL ALT Routine 04/08/2007 10:19 Mixed Hyperlipidemia Res ults for this AM FLOTATION TENDER procedure are i n the results section. CL AFF A.M.A. Routine 04/08/2007 10:19 Mixed Hyperlipidemia Re sults for this LIPID PANEL AM FLOTATION TENDER procedure are i n the results section. documented in this encounter Results CT SCAN CHEST (04/11/2007 11:12 AM FLOTATION TENDER) Anatomical Region Laterality Modality Other Specimen (Source) Anatomical Collection Method Collection Time Re ceived Time Location / / Volume Laterality 04/11/2007 11:12 AM FLOTATION TENDER Impressions 04/11/2007 11:[address] CHEST FOR NODULE HISTORY: ??Pulmonary nodule. [...] 2 OR 3 VIEW (04/08/2007 10:22 AM FLOTATION TENDER) Anatomical Region Laterality Modality Other Specimen (Source) Anatomical Collection Method Collection Time Re ceived Time Location / / Volume Laterality 04/08/2007 10:22 AM FLOTATION TENDER Impressions 04/08/2007 10:44 AM FLOTATION TENDER CERVICAL SPINE 2-3 VW* HISTORY: Pain FINDINGS: Degenerative disc disease at t he C3 and C5 levels. Degenerative facet disease throughout th e cervical spine. Exam otherwise negative. Nasir Velazquez MD GENERAL IMAGING CREATININE, URINE (04/08/2007 10:19 AM FLOTATION TENDER) P athologist Signature Creatinine 191 mg/dL [facility] Urine [place] [facility] Specimen Anatomical Collection Method Collection Time Receive d Time (Source) Location / / Volume Laterality 04/08/2007 10:19 04/08/2007 AM FLOTATION TENDER 10:21 AM FLOTATION TENDER Nasir Velazquez MD LABORATORY Performing Organization Address City/State/ZIP Code Phon e Number [facility] [address] [place], [place] [id number] [place] [address] LABS MICROALBUMIN (INC URINE CREAT) (04/08/2007 10:19 AM FLOTATION TENDER) P athologist Signature Albumin Urine 6 mg/L [facility] mg/L [place] [facility] Albumin Urine 3.09 0 - 20 [facility] mg/g Cr mg/g Cr [place] [facility] Specimen Anatomical Collection Method Collection Time Receive d Time (Source) Location / / Volume Laterality 04/08/2007 10:19 04/08/2007 AM FLOTATION TENDER 10:21 AM FLOTATION TENDER Nasir Velazquez MD LABORATORY Performing Organization Address City/State/ZIP Code Phon e Number [address] [address] [facility] LABS (ABNORMAL) A.M.A. BASIC METABOLIC PANEL (04/08/2007 10:19 AM FLOTATION TENDER) P athologist Signature Sodium 144 133 - 144 [facility] mmol/L [facility] Potassium 3.7 3.4 - 5.3 [facility] mmol/L [facility] Chloride 102 94 - 109 [facility] mmol/L [facility] Carbon Dioxide 30 20 - 32 [facility] mmol/L [facility] Anion Gap 11 6 - 17 [facility] mmol/L [facility] Glucose 101 (H) 60 - 99 [facility] mg/dL [facility] Urea Nitrogen 17 7 - 30 [facility] mg/dL [facility] Creatinine 1.16 0.80 - [facility] 1.50 mg/dL [facility] GFR Estimate 68 >60 [facility] mL/min/1.7 [facility] m2 LAB GFR Estimate If 82 >60 [facility] mL/min/1.7 [facility] m2 LAB Calcium 9.3 8.5 - 10.4 [facility] Specimen Anatomical Collection Method Collection Time Receive d Time (Source) Location / / Volume Laterality 04/08/2007 10:19 04/08/2007 AM FLOTATION TENDER 10:21 AM FLOTATION TENDER Nasir Velazquez MD LABORATORY Performing Organization Address City/State/ZIP Code Phon e Number [facility] [address] [place] [address] [facility] PROSTATE SPEC ANTIGEN,SCREEN (04/08/2007 10:19 AM FLOTATION TENDER) P athologist Signature PSA 0.43 0 - 4 ug/L [facility] Specimen Anatomical Collection Method Collection Time Receive d Time (Source) Location / / Volume Laterality 04/08/2007 10:19 04/08/2007 AM FLOTATION TENDER 10:21 AM FLOTATION TENDER Nasir Velazquez MD LABORATORY Performing Organization Address City/State/ZIP Code Phon e Number [facility] [address] [place] [address] [facility] ALANINE AMINO (ALT) (SGPT) (04/08/2007 10:19 AM FLOTATION TENDER) athologist Signature ALT 45 0 - 70 U/L [facility] Specimen Anatomical Collection Method Collection Time Receive d Time (Source) Location / / Volume Laterality 04/08/2007 10:19 04/08/2007 AM FLOTATION TENDER 10:21 AM FLOTATION TENDER Nasir Velazquez MD LABORATORY Performing Organization Address City/[facility]/ZIP Code Phon e Number [address] [address] [facility] (ABNORMAL) A.M.A. LIPID PANEL (04/08/2007 10:19 AM FLOTATION TENDER) athologist Signature Cholesterol 169 0 - 200 [facility] mg/dL [...] Triglycerides 188 (H) 0 - 150 mg/dL [facility] HDL Cholesterol 41 40 - 110 mg/dL [facility] LDL Cholesterol Calculated 91 0 - 129 mg/dL [facility] Comment: LDL Cholesterol is the primary guide to therapy: LDL-cholesterol goal in high risk patients is <100 mg/dL and in very high risk patients is <70 mg/dL. VLDL-Cholesterol 38 (H) 0 - 30 mg/dL [facility] Cholesterol/HDL Ratio 4.2 0.0 - 5.0 [facility] Specimen Anatomical Collection Method Collection Time Receive d Time (Source) Location / / Volume Laterality 04/08/2007 10:19 04/08/2007 AM FLOTATION TENDER 10:21 AM FLOTATION TENDER Nasir Velazquez MD LABORATORY Performing Organization Address City/State/ZIP Code Phon e Number [facility] [address] [place] [address] [facility] documented in this encounter Visit [...] reflux documented in this encounter Care Teams Computer Lab Para Professional Relationship Specialty Start Date End Date Nasir Velazquez MD PCP - General 02/18/99 10/06/13 [facility] [address] [place] [address] documented as of this encounter
--- OUTSIDE RECORDS SUMMARY | 2021-11-07 15:46 | XMS_ITS | Encounter Summary ---
:1945 Author Organization [place] Address [facility] 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 documented as of this encounter Progress Notes Blayne Arroyo MD - 01/10/2011 10:49 PM SALES AND MARKETING MANAGER PRELIMINARY SLEEP STUDY INDICATIONS: Snoring, excessive [...] MD MT: tai Name: LO NEUMANN Account: [id number] : 1945 Visit Date: 07/24/2005 Document: [id number] cc: Diogo Velazquez MD S AND MARKETING MANAGER documented in this encounter Plan of Treatment Not on filedocumented as of this encounter Visit Diagnoses Not on filedocumented in this encounter Care Teams Hardwood Floor Sander Relationship Specialty Start Date End Date Nasir Velazquez MD PCP - General 02/18/99 10/06/13 [facility] [address] [place] [address] documented as of this encounter
--- OUTSIDE RECORDS SUMMARY | 2021-11-07 15:46 | XMS_ITS | Encounter Summary ---
:1945 Author Organization [place] Address [facility] [place] [address] Care Team Providers Name Role Phone Nasir Velazquez MD Primary Care Provider [phone] Reason for Visit Reason Comments RECHECK F/U FROM LAB WORK Encounter Details Date Type Department Care Team Description 09/12/2005 Office Visit [facility] Nasir Velazquez HYPERT ROPHY of PROSTATE ; Clinic Carpenter MD Geraldo BENIGN HYPERTENSION; [address] 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
--- OUTSIDE RECORDS SUMMARY | 2021-11-07 15:46 | XMS_ITS | Encounter Summary ---
:1945 Author Organization [place] Address [address] [facility] [place] [address] Care Team Providers Name Role Phone Nasir Velazquez MD Primary Care Provider [phone] Raghavendra Deras MD Primary Care Provider Unavailable Encounter Details Date Type Department Care Team Description 03/21/2006 Historic Results [facility] Heart Unknown, [facility] [address] [place] [address] Social History Tobacco Use Types Packs/Day Years Used Date Former Smoker Quit: 02/05/18 85 Alcohol Use Standard Drinks/Week Comments Yes 1.7 (1 standard drink = 0.6 oz pure alco hol) socially Sex Assigned at Date Recorded Male 01/15/2018 11:39 PM WATCH 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 Provider Scan CV ECHO ORDERABLES documented in this encounter Visit Diagnoses Not on filedocumented in this encounter Care Teams Lean Leader Relationship Specialty Start Date End Date Nasir Velazquez MD PCP - General 02/18/99 10/06/13 [facility] [address] [place] [address] Raghavendra Deras MD PCP - General Family Practice 10/07/13 documented as of this encounter
--- OUTSIDE RECORDS SUMMARY | 2021-11-07 15:46 | XMS_ITS | Encounter Summary ---
:1945 Author Organization [place] Address [address] [place] [address] Care Team Providers Name Role Phone Nasir Velazquez MD Primary Care Provider Reason for Referral - Closed Specialty Diagnoses / Procedures Referred By Contact Refer red To Contact Diagnoses Chest pain, unspecified Nasir Velazquez MD [facility] [address] [place], [place] [address] Referral ID Status Reason Start Date Expiration Date Visits Requ ested Visits Authorized [id number] Closed 03/18/2006 02/04/2011 1 1 RIDER Reason for Visit Reason Comments RECHECK lab f/u Pain pt complains of chest pain a dull ache left rib area Refill Request Sinus Problem sinus BARONE x 1 month Encounter Details Date Type Department Care Team Description 03/14/2006 Office Visit [facility] Nasir Velazquez HYPERT ROPHY of PROSTATE ; Clinic Candy Chow MD MIXED HYPERLIPIDEMIA; [address] [facility] ESOPHAGEAL REFLUX ; [place], [place] CLINIC CHEST PAIN NOS [address] [facility] [phone] [place], [place] [id number] (Wo rk) Social History Tobacco Use Types Packs/Day Years Used Date Former Smoker Quit: 02/05/18 85 Alcohol Use Standard Drinks/Week Comments Yes 1.7 (1 standard drink = 0.6 oz pure alco hol) socially Sex Assigned at Date Recorded Male 01/15/2018 11:39 PM PEN RIDER documented as of this encounter Last Filed Vital Signs Vital Sign Reading Time Taken Comments Blood Pressure 120/74 03/14/2006 11:00 AM PEN RIDER Pulse 67 03/14/2006 11:00 AM PEN RIDER Temperature 36.5 ??C (97.7 ??F) 03/14/2006 11:00 AM PEN RIDER Respiratory Rate - - Oxygen Saturation 97% 03/14/2006 11:00 AM PEN RIDER Inhaled Oxygen Concentration - - Weight 84.8 kg (187 lb) 03/14/2006 11:00 AM PEN RIDER Height 177.8 cm (5' 10) 03/14/2006 11:00 AM PEN RIDER Body Mass Index 26.83 03/14/2006 11:00 AM PEN RIDER documented in this encounter Progress Notes Nasir [...] NOS Note: Plan: ELECTROCARDIOGRAM, COMP W/READ, CONSULT [facility] HEART chest pain not typical angina, but given his heart risk factors, recurrent symptoms, and lack of other obvious explanation, I feel it is worthwhile to continue workup with a stress echocardiogram. Planfor the test to be performed sometime within the next few weeks. follow up after results return. Spent greater than 50% of 30 minutes counseling patient and/or coordinating care. RIDER documented in this encounter Nursing Notes 03/14/2006 11:00 AM CST >> PHOENIX DUBOIS 03/14/2006 11:09 am Terry Montero presents for as above. Initial BP 120/74 Pulse 67 Temp (Src) 97.7 (Tympanic) Ht 5' 10 (1.78m) Wt 187 lbs (84.8kg) SaO2 97% Body mass index is 26.83 kg/(m^2).. BP completed using cuff size: regular Phoenix Dubois LUMBER TYING MACHINE OPERATOR documented in this encounter Plan of Treatment Not on filedocumented as of this encounter Procedures Procedure Name Priority Date/Time Associated Diagnosis Comme nts ZZC ELECTROCARDIOGRAM, Routine 03/14/2006 11:47 AM PEN RIDER Chest P ain Nos COMP W/READ documented in this encounter Results ELECTROCARDIOGRAM, COMP W/READ (03/14/2006 11:47 AM PEN RIDER) Narrative This result has an attachment that is no t available. Nasir Velazquez MD EKG TECHNICAL documented in this encounter Visit Diagnoses Diagnosis HYPERTROPHY of PROSTATE Hypertrophy of prostate without urinary obstruction and other lower urinary tract symptoms (LUTS) Mixed hyperlipidemia ESOPHAGEAL REFLUX Esophageal reflux Chest pain, unspecified documented in this encounter Care Teams Coater Smoking Pipe Relationship Specialty Start Date End Date Nasri Velazquez MD PCP - General 02/18/99 10/06/13 [facility] [address] [place] [address] documented as of this encounter
--- OUTSIDE RECORDS SUMMARY | 2021-11-07 15:46 | XMS_ITS | Encounter Summary ---
:1945 Author Organization [place] Address [address] [facility] [place] [address] Care Team Providers Name Role Phone Nasir Velazquez MD Primary Care Provider [phone] Reason for Referral - Closed Specialty Diagnoses / Procedures Referred By Contact Refer red To Contact Diagnoses Other chronic sinusitis Nasir Velazquez MD [facility] [address] [place], [place] [address] Referral ID Status Reason Start Date Expiration Date Visits Requ ested Visits Authorized [id number] Closed 04/02/2006 02/04/2011 1 1 ER ASSEMBLER Reason for Visit Reason Comments RECHECK follow up for cough, cough i s about the same, no sharp pain in chest now, had stress test last week, follo w up too on BMT test. 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 documented as of this encounter Last Filed Vital Signs Vital Sign Reading Time Taken Comments Blood Pressure 108/72 04/02/2006 3:15 PM PRIMER ASSEMBLER Pulse 63 04/02/2006 3:15 PM PRIMER ASSEMBLER Temperature 37.6 ??C (99.6 ??F) 04/02/2006 3:15 PM PRIMER ASSEMBLER Respiratory Rate - - Oxygen Saturation 95% 04/02/2006 3:15 PM PRIMER ASSEMBLER Inhaled Oxygen Concentration - - Weight 87.1 kg (192 lb) 04/02/2006 3:15 PM PRIMER ASSEMBLER Height 177.8 cm (5' 10) 04/02/2006 3:15 PM PRIMER ASSEMBLER Body Mass Index 27.55 04/02/2006 3:15 PM PRIMER ASSEMBLER documented in this encounter Progress Notes Nasir [...] 30 minutes counseling patient and/or coordinating care. ER ASSEMBLER documented in this encounter Nursing Notes 04/02/2006 3:15 PM CST >> ALEXANDRIA GARCIA 04/02/2006 3:30 pm Terry Montero presents for as above. Initial BP 108/72 Pulse 63 Temp (Src) 99.6 (Tympanic) Ht 5' 10 (1.78m) Wt 192 lbs (87.1kg) SaO2 95% Body mass index is 27.55 kg/(m^2).. BP completed using cuff size: regular Alexandria Garcia HR ANALYST documented in this encounter Plan of Treatment Not on filedocumented as of this encounter Visit Diagnoses Diagnosis Other chronic sinusitis - Primary Cough documented in this encounter Care Teams Hazardous Waste Management Specialist Relationship Specialty Start Date End Date Nasir Velazquez MD PCP - General 02/18/99 10/06/13 [place] [address] [place] [address] documented as of this encounter
--- OUTSIDE RECORDS SUMMARY | 2021-11-07 15:46 | XMS_ITS | Encounter Summary ---
:1945 Author Organization [place] Address [address] [facility] [place] [address] Care Team Providers Name Role Phone Nasir Velazquez MD Primary Care Provider [phone] Reason for Visit Reason Comments URI fever, sick since this wknd, sinus and face pressure, developed cough, has chills, last night he coughe d and described pains in his chest. 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 documented as of this encounter Last Filed Vital Signs Vital Sign Reading Time Taken Comments Blood Pressure 112/71 03/26/2006 2:00 PM DRAIN TECHNICIAN Pulse 92 03/26/2006 2:00 PM DRAIN TECHNICIAN Temperature 37.4 ??C (99.3 ??F) 03/26/2006 2:00 PM DRAIN TECHNICIAN Respiratory Rate - - Oxygen Saturation 94% 03/26/2006 2:00 PM DRAIN TECHNICIAN Inhaled Oxygen Concentration - - Weight 88 kg (194 lb) 03/26/2006 2:00 PM DRAIN TECHNICIAN Height 177.8 cm (5' 10) 03/26/2006 2:00 PM DRAIN TECHNICIAN Body Mass Index 27.84 03/26/2006 2:00 PM DRAIN TECHNICIAN documented in this encounter Progress Notes Marlene [...] HCM if not uptodate. Marlene Carreno MD N TECHNICIAN documented in this encounter Nursing Notes 03/26/2006 [...] 2:38 PM Cough Resul ts for this DRAIN TECHNICIAN procedure are i n the results section. HC CHEST TWO VIEWS, Routine 03/26/2006 Cough Results for this FRONT/LAT procedure are i n the results section. documented in this encounter Results (ABNORMAL) N-TERMINAL PRO BNP (03/26/2006 2:38 PM DRAIN TECHNICIAN) P athologist Signature N-Terminal Pro 273 (H) 0.0 - [facility] Bnp 125.0 ARTHUR pg/mL [facility] Comment: Reference ranges shown and results [...] Volume Laterality 03/26/2006 2:38 PM 7 2:39 DRAIN TECHNICIAN PM DRAIN TECHNICIAN Marlene Carreno MD LABORATORY Performing Organization Address City/State/ZIP Code Phon e Number [facility] [address] [place], [place] [phone] [place] [address] LABS CHEST X-RAY 2 VW (03/26/2006) Anatomical Region Laterality Modality Other Impressions 03/26/2006 REPORT OF OUTSIDE FILMS FROM [employer] LO NEUMANN : ??45 PA AND LEFT [...] Primary documented in this encounter Care Teams Automatic Nailing Machine Feeder Relationship Specialty Start Date End Date Nasir Velazquez MD PCP - General 02/18/99 10/06/13 [facility] [address] [place] [address] documented as of this encounter
--- OUTSIDE RECORDS SUMMARY | 2021-11-07 15:46 | XMS_ITS | Encounter Summary ---
:1945 Author Organization [place] Address [facility] [place] [address] Care Team Providers Name Role Phone Nasir Velazquez MD Primary Care Provider [phone] Reason for Visit Reason Comments Blood Draw Encounter Details Date Type Department Care Team Description 03/12/2006 Orders [facility] MIX ED HYPERLIPIDEMIA [facility] [address] [place] [address] Social History Tobacco Use Types Packs/Day Years Used Date Former Smoker Quit: 02/05/18 85 Alcohol Use Standard Drinks/Week Comments Yes 1.7 (1 standard drink = 0.6 oz pure alco hol) socially Sex Assigned at Date Recorded Male 01/15/2018 11:39 PM FOOD SAFETY TECHNICIAN documented as of this encounter Plan of Treatment Not on filedocumented as of this encounter Procedures Procedure Name Priority Date/Time Associated Diagnosis Comme nts HCL ALT Routine 03/12/2006 9:55 AM Mixed Hyperlipidemia R esults for this FOOD SAFETY TECHNICIAN procedure are i n the results section. CL AFF A.M.A. LIPID Routine 03/12/2006 9:55 AM Mixed Hyperlipi demia Results for this PANEL FOOD SAFETY TECHNICIAN procedure are i n the results section. documented in this encounter Results ALANINE AMINO (ALT) (SGPT) (03/12/2006 9:55 AM FOOD SAFETY TECHNICIAN) P athologist Signature ALT 49 0 - 70 U/L [facility] Specimen Anatomical Collection Method Collection Time Receive d Time (Source) Location / / Volume Laterality 03/12/2006 9:55 AM 7 9:56 FOOD SAFETY TECHNICIAN AM FOOD SAFETY TECHNICIAN Nasir Velazquez MD LABORATORY Performing Organization Address City/[facility]/ZIP Code Phon e Number [facility] [address] [place] [address] [phone] [facility] (ABNORMAL) A.M.A. LIPID PANEL (03/12/2006 9:55 AM FOOD SAFETY TECHNICIAN) athologist Signature Cholesterol 161 0 - 200 [facility] mg/dL CLINIC LAB Comment: LDL Cholesterol [...] Triglycerides 228 (H) 0 - 150 mg/dL [facility] HDL Cholesterol 39 (L) 40 - 110 mg/dL [facility] LDL Cholesterol Calculated 77 0 - 129 mg/dL [facility] Comment: LDL Cholesterol is the primary guide to therapy: LDL-cholesterol goal in high risk patients is <100 mg/dL and in very high risk patients is <70 mg/dL. VLDL-Cholesterol 46 (H) 0 - 30 mg/dL [facility] Cholesterol/HDL Ratio 4.2 0.0 - 5.0 [facility] Specimen Anatomical Collection Method Collection Time Receive d Time (Source) Location / / Volume Laterality 03/12/2006 9:55 AM 7 9:56 FOOD SAFETY TECHNICIAN AM FOOD SAFETY TECHNICIAN Nasir Velazquez MD LABORATORY Performing Organization Address City/[facility]/ZIP Code Phon e Number [address] [address] [phone] [facility] documented in this encounter Visit Diagnoses Diagnosis Mixed hyperlipidemia documented in this encounter Care Teams Speech Language Pathology Assistant Relationship Specialty Start Date End Date Nasir Velazquez MD PCP - General 02/18/99 10/06/13 [facility] [address] [place] [address] documented as of this encounter
--- OUTSIDE RECORDS SUMMARY | 2021-11-07 15:46 | XMS_ITS | Encounter Summary ---
:1945 Author Organization [place] Address [address] [facility] [place] [address] Care Team Providers Name Role Phone Nasir Velazquez MD Primary Care Provider [phone] Reason for Visit Reason Comments Blood Draw Encounter Details Date Type Department Care Team Description 09/06/2005 Orders Only [facility] ED HYPERLIPIDEMIA; [facility] BENIGN HYPERTENSION [address] [place] [address] Social History Tobacco Use Types Packs/Day Years Used Date Former Smoker Quit: 02/05/18 85 Alcohol Use Standard Drinks/Week Comments Yes 1.7 (1 standard drink = 0.6 oz pure alco hol) socially Sex Assigned at Date Recorded Male 01/15/2018 11:39 PM PRODUCT BUILDER documented as of this encounter Plan of [...] athologist Signature Sodium 140 133 - 144 [facility] mmol/L CLINIC LAB Potassium 3.4 3.4 - 5.3 [facility] mmol/L [facility] LAB Chloride 103 94 - 109 [facility] mmol/L [facility] LAB Carbon Dioxide 28 20 - 32 [facility] mmol/L [facility] LAB Anion Gap 9 6 - 17 [facility] mmol/L [facility] Glucose 105 60 - 110 [facility] Urea Nitrogen 17 7 - 30 [facility] mg/dL [facility] LAB Creatinine 1.10 0.80 - [facility] 1.50 mg/dL CLINIC LAB GFR Estimate 73 >60 [facility] mL/min/1.7 CLINIC LAB m2 GFR Estimate If 88 >60 [facility] Black mL/min/1.7 CLINIC LAB m2 Calcium 9.0 8.5 - 10.4 [facility] mg/dL [facility] Bilirubin Total 0.4 0.2 - 1.3 [facility] mg/dL [facility] Albumin 4.2 3.2 - 4.5 [facility] g/dL [facility] Protein Total 7.5 6.0 - 8.2 [facility] g/dL [facility] Alkaline 120 40 - 150 [facility] Phosphatase U/L [facility] ALT 34 0 - 70 U/L [facility] AST 31 0 - 55 U/L [facility] Specimen Anatomical Collection Method Collection Time Receive d Time (Source) Location / / Volume Laterality 09/06/2005 10:01 09/06/2005 AM CDT 10:03 AM CDT Diogo Velazquez MD LABORATORY Performing Organization Address City/State/ZIP Code Phon e Number [facility] [address] [place] [address] [facility] (ABNORMAL) A.M.A. LIPID PANEL (09/06/2005 10:01 AM CDT) athologist Signature Cholesterol 143 0 - 200 [facility] mg/dL CLINIC LAB Comment: LDL Cholesterol [...] 186 (H) 0 - 150 mg/dL [facility] HDL Cholesterol 38 (L) 40 - 110 mg/dL [facility] LDL Cholesterol Calculated 68 0 - 129 mg/dL [facility] Comment: LDL Cholesterol is the primary guide to therapy: LDL-cholesterol goal in high risk patients is <100 mg/dL and in very high risk patients is <70 mg/dL. VLDL-Cholesterol 37 (H) 0 - 30 mg/dL [facility] Cholesterol/HDL Ratio 3.8 0.0 - 5.0 [facility] Specimen Anatomical Collection Method Collection Time Receive d Time (Source) Location / / Volume Laterality 09/06/2005 10:01 09/06/2005 AM CDT 10:03 AM CDT Diogo Velazquez MD LABORATORY Performing Organization Address City/State/ZIP Code Phon e Number [facility] [address] [place] [address] [facility] documented in this encounter Visit Diagnoses Diagnosis Mixed hyperlipidemia Essential hypertension, benign documented in this encounter Care Teams Cook Pressure Relationship Specialty Start Date End Date Nasir Velazquez MD PCP - General 02/18/99 10/06/13 [facility] [address] [place] [address] documented as of this encounter
--- OUTSIDE RECORDS SUMMARY | 2021-11-07 15:46 | XMS_ITS | Encounter Summary ---
:1945 Author Organization [place] Address [facility] [place] [address] Care Team Providers Name Role Phone Nasir Velazquez MD Primary Care Provider [phone] Reason for Visit Reason Onset Date Comments Orders 03/09/2006 Encounter Details Date Type Department Care Team Description 03/09/2006 Telephone [facility] [place] [address] [place] [address] [facility] [phone] [facility] [address] [address] (Wo rk) Social History Tobacco Use Types Packs/Day Years Used Date Former Smoker Quit: 02/05/18 85 Alcohol Use Standard Drinks/Week Comments Yes 1.7 (1 standard drink = 0.6 oz pure alco hol) socially Sex Assigned at Date Recorded Male 01/15/2018 11:39 PM 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 ENT PROCESSOR Telephone Encounter - Phoenix Dubois - 03/09/2006 11:55 AM CST Pt called would like to have his cholesterol checked. Has an appt 03-12-06 may need new orders. Will schedule and appt to see you a few days after. Phoenix Dubois CMA ENT PROCESSOR documented in this encounter Plan of Treatment Not on filedocumented as of this encounter Visit Diagnoses Diagnosis Mixed hyperlipidemia - Primary documented in this encounter Care Teams Field Radio Technician Relationship Specialty Start Date End Date Nasir Velazquez MD PCP - General 02/18/99 10/06/13 [facility] [address] [place] [address] documented as of this encounter
--- OUTSIDE RECORDS SUMMARY | 2021-11-07 15:46 | XMS_ITS | Encounter Summary ---
:1945 Author Organization [place] Address [address] [place] [address] Care Team Providers Name Role Phone Nasir Velazquez MD Primary Care Provider [phone] Reason for Visit Reason Comments Medication Request lipitor Foot Problems f/u on foot pain Encounter Details Date Type Department Care Team Description 08/05/2004 Office Visit [facility] Diogo Velazquez BENIGN H YPERTENSION; Clinic Candy Rojas MD MIXED HYPERLIPIDEMIA; [address] [facility] [id number] [place] LIPOMA SKIN- trunk & legs; [place], [place] [address] JOINT PAIN-Foot & anterior ankle [address] [place], [place] [phone] [address] [phone] (Wo rk) Social History Tobacco Use Types Packs/Day Years Used Date Former Smoker Quit: 02/05/18 85 Alcohol Use Standard Drinks/Week Comments Yes 1.7 (1 standard drink = 0.6 oz pure alco hol) socially Sex Assigned at Date Recorded Male 01/15/2018 11:39 PM 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 documented as of this encounter Last [...] athologist Signature Sodium 144 133 - 144 [place] mmol/L [facility] Potassium 3.7 3.4 - 5.3 [place] mmol/L [facility] Chloride 102 94 - 109 [place] mmol/L [facility] Carbon Dioxide 29 20 - 32 [place] mmol/L [facility] Anion Gap 12 6 - 17 [place] mmol/L [facility] Glucose 102 60 - 110 [facility] Urea Nitrogen 14 7 - 30 [place] mg/dL [facility] Creatinine 1.10 0.80 - [place] 1.50 mg/dL [facility] GFR Estimate 73 >60 [place] mL/min/1.7 [facility] m2 LAB GFR Estimate If >80 >60 [facility] Black mL/min/1.7 [facility] m2 LAB Calcium 9.7 8.5 - 10.4 [place] mg/dL [facility] Bilirubin Total 0.8 0.2 - 1.3 [place] mg/dL [facility] Albumin 4.3 3.2 - 4.5 [place] g/dL [facility] Protein Total 7.9 6.0 - 8.2 [place] g/dL [facility] Alkaline 114 40 - 150 [facility] Phosphatase U/L [facility] ALT 39 0 - 70 U/L [facility] AST 31 0 - 55 U/L [facility] Specimen Anatomical Collection Method Collection Time Receive d Time (Source) Location / / Volume Laterality 08/05/2004 11:51 08/05/2004 AM CDT 11:52 AM CDT Diogo Velazquez MD LABORATORY Performing Organization Address City/State/ZIP Code Phon e Number [facility] [address] [place] [address] [facility] (ABNORMAL) A.M.A. LIPID PANEL (08/05/2004 11:51 AM CDT) athologist Signature Cholesterol 145 0 - 200 [facility] mg/dL [facility] Comment: Cholesterol Reference Range: <200 ??The NCEP recommends further ? evaluation of: ? 1. ??Patients with cholesterol ? greater than 200 mg/dL ? if additional risk facto rs ? are present. ? 2. ??All patients with a ? cholesterol greater than ? 240 mg/dL. Triglycerides 224 (H) 0 - 150 mg/dL [facility] HDL Cholesterol 38 (L) >40 mg/dL [facility] LDL Cholesterol Calculated 63 0 - 129 mg/dL [facility] VLDL-Cholesterol 45 (H) 0 - 30 mg/dL [facility] Cholesterol/HDL Ratio 3.9 0.0 - 5.0 [facility] Specimen Anatomical Collection Method Collection Time Receive d Time (Source) Location / / Volume Laterality 08/05/2004 11:51 08/05/2004 AM CDT 11:52 AM CDT Diogo Velazquez MD LABORATORY Performing Organization Address City/State/ZIP Code Phon e Number [facility] [address] [place] [address] [facility] documented in this encounter Visit Diagnoses Diagnosis Essential hypertension, benign Mixed hyperlipidemia LIPOMA SKIN- trunk & legs Lipoma of other skin and subcutaneous ti ssue JOINT PAIN-Foot & anterior ankle Pain in joint, ankle and foot documented in this encounter Care Teams Water Treatment Plant Supervisor Relationship Specialty Start Date End Date Nasir Velazquez MD PCP - General 02/18/99 10/06/13 [facility] [address] [place] [address] documented as of this encounter
--- OUTSIDE RECORDS SUMMARY | 2021-11-07 15:46 | XMS_ITS | Encounter Summary ---
:1945 Author Organization [place] Address [facility] [place] [address] Care Team Providers Name Role Phone Nasir Velazquez MD Primary Care Provider [phone] Encounter Details Date Type Department Care Team Description 03/21/2006 Results [facility] [place] [address] [place] [address] [facility] [phone] [facility] N [address] (Wo rk) Social History Tobacco Use Types Packs/Day Years Used Date Former Smoker Quit: 02/05/18 85 Alcohol Use Standard Drinks/Week Comments Yes 1.7 (1 standard drink = 0.6 oz pure alco hol) socially Sex Assigned at Date Recorded Male 01/15/2018 11:39 PM TELEGRAPHIC TYPEWRITER 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 documented in this encounter Results ECHO HEART, FULL STRESS/REST (03/21/2006 10:13 AM TELEGRAPHIC TYPEWRITER OPERATOR) Component Value Ref Test Analysis Performed At [facility] Method Time Signature [facility] Interpretation [...] ? 185/85 ?max bp 185/85 - RPP 03484 ? 768 ?100 ? 135/75 ?RPP 12062 Stress Duration: 630 seconds ??Recovery Time: 768 seconds Maximum Stress HR: 162 bpm ?METS: ?? Interpreting Physician: ??Matthew Nava MD electronically signed on 03-21-2006 15:22:13 Specimen (Source) Anatomical Collection Method Collection Time Re ceived Time Location / / Volume Laterality 03/21/2006 10:13 AM TELEGRAPHIC TYPEWRITER OPERATOR Nasir Velazquez MD SPECIAL IMAGING STUDIES Performing Organization Address City/State/ZIP Code Phon e Number RADIOLOGY RESULTS documented in this encounter Visit Diagnoses Not on filedocumented in this encounter Care Teams Roll Out Manager Relationship Specialty Start Date End Date Nasir Velazquez MD PCP - General 02/18/99 10/06/13 [facility] [address] [place] [address] documented as of this encounter
--- OUTSIDE RECORDS SUMMARY | 2021-11-07 15:46 | XMS_ITS | Encounter Summary ---
:1945 Author Organization [place] Address [address] [place] [address] Care Team Providers Name Role Phone Nasir Velazquez MD Primary Care Provider [phone] Encounter Details Date Type Department Care Team Description 02/15/2005 Medical Correspondence [facility] [place] [address] [facility] [id number] [place] [address] [address]VE [address] [place], [place] [phone] (Wo rk) Social History Tobacco Use Types Packs/Day Years Used Date Former Smoker Quit: 02/05/18 85 Alcohol Use Standard Drinks/Week Comments Yes 1.7 (1 standard drink = 0.6 oz pure alco hol) socially Sex Assigned at Date Recorded Male 01/15/2018 11:39 PM CLAY MILLER documented as of this encounter Plan of Treatment Not on filedocumented as of this encounter Visit Diagnoses Not on filedocumented in this encounter Care Teams Sports Physiologist Relationship Specialty Start Date End Date Nasir Velazquez MD PCP - General 02/18/99 10/06/13 [facility] [address] [place] [address] documented as of this encounter
--- OUTSIDE RECORDS SUMMARY | 2021-11-07 15:46 | XMS_ITS | Encounter Summary ---
:1945 Author Organization [place] Address [address] [facility] [address] Care Team Providers Name Role Phone Nasir Velazquez MD Primary Care Provider [phone] Reason for Visit Reason Comments Physical pt is fasting. review last w eeks chest x-rays Encounter Details Date Type Department Care Team Description 07/04/2006 Office Visit [facility] Nasir Velazquez MEDICAL EXAM (Primary Dx); Clinic Candy Chow MD OTHER LUNG DISEASE NEC; [address] [facility] BENIGN HYPERTENSION; [place], [place] CLINIC MIXED HYPERLIPIDEMIA [address] [phone] [place] [address] Social History Tobacco Use Types Packs/Day Years Used Date Former Smoker Quit: 02/05/18 85 Alcohol Use Standard Drinks/Week Comments Yes 1.7 (1 standard drink = 0.6 oz pure alco hol) socially Sex Assigned at Date Recorded Male 01/15/2018 11:39 PM 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 [facility] [employer],[address] [place] [address] Social History Main Topics ??? Tobacco Use: [...] in old age ??? C.A.D. Maternal Uncle [place] ??? [place] Maternal Uncle ??? Prostatic [...] completed using cuff size: regular [place] Dubois COLOR STRAINING BAG WASHER documented in this encounter Plan of Treatment [...] Signature PSA 0.46 0 - 4 ug/L [facility] Specimen Anatomical Collection Method Collection Time Receive d Time (Source) Location / / Volume Laterality 07/04/2006 11:50 07/04/2006 AM CDT 11:52 AM CDT Nasir Velazquez MD LABORATORY Performing Organization Address City/State/ZIP Code Phon e Number [facility] [address] [address] [facility] (ABNORMAL) A.M.A. BASIC METABOLIC PANEL (07/04/2006 11:50 AM CDT) P athologist Signature Sodium 143 133 - 144 [place] mmol/L [facility] Potassium 4.2 3.4 - 5.3 [place] mmol/L [facility] Chloride 101 94 - 109 [place] mmol/L [facility] Carbon Dioxide 31 20 - 32 [place] mmol/L [facility] Anion Gap 11 6 - 17 [place] mmol/L [facility] Glucose 100 (H) 60 - 99 [place] mg/dL [facility] Urea Nitrogen 16 7 - 30 [place] mg/dL [facility] Creatinine 1.10 0.80 - [place] 1.50 mg/dL [facility] GFR Estimate 72 >60 [place] mL/min/1.7 [facility] m2 LAB GFR Estimate If 88 >60 [place] Black mL/min/1.7 [facility] m2 LAB Calcium 9.5 8.5 - 10.4 [place] mg/dL [facility] Specimen Anatomical Collection Method Collection Time Receive d Time (Source) Location / / Volume Laterality 07/04/2006 11:50 07/04/2006 AM CDT 11:52 AM CDT Nasir Velazquez MD LABORATORY Performing Organization Address City/State/ZIP Code Phon e Number [facility] [address] [place] [address] [facility] documented in this encounter Visit Diagnoses Diagnosis Routine general medical examination at a health care facility - Primary Other diseases of lung, not elsewhere cl assified Essential hypertension, benign Mixed hyperlipidemia documented in this encounter Care Teams Electron Beam Operator Relationship Specialty Start Date End Date Nasir Velazquez MD PCP - General 02/18/99 10/06/13 [facility] [address] [place] [address] documented as of this encounter
--- OUTSIDE RECORDS SUMMARY | 2021-11-07 15:46 | XMS_ITS | Encounter Summary ---
:1945 Author Organization [place] Address [facility] [place] [address] Care Team Providers Name Role Phone Nasir Velazquez MD Primary Care Provider Reason for Visit Reason Comments RECHECK Recheck lungs Encounter Details Date Type Department Care Team Description 06/25/2006 Office Visit [facility] Nasir Velazquez OTHER LUNG DISEASE Clinic Shev[place] MD Geraldo NEC (Primary Dx) [address] [place], [place] CLINIC [address] [address] [facility] [phone] [place] [address] (Wo rk) Social History Tobacco Use Types Packs/Day Years Used Date Former Smoker Quit: 02/05/18 85 Alcohol Use Standard Drinks/Week Comments Yes 1.7 (1 standard drink = 0.6 oz pure alco hol) socially Sex Assigned at Date Recorded Male 01/15/2018 11:39 PM 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
--- OUTSIDE RECORDS SUMMARY | 2021-11-07 15:46 | XMS_ITS | Encounter Summary ---
:1945 Author Organization [place] Address [address] [facility] [place] [address] Care Team Providers Name Role Phone Nasir Velazquez MD Primary Care Provider Reason for Visit Reason Onset Date Comments Patient Request 01/27/2005 Encounter Details Date Type Department Care Team Description 01/27/2005 Telephone [facility] Diogo Velazquez MD Patient Request [place] [address] [facility] [address] [place] [address] [place] [address] [phone] Social History Tobacco Use Types Packs/Day Years Used Date Former Smoker Quit: 02/05/18 85 Alcohol Use Standard Drinks/Week Comments Yes 1.7 (1 standard drink = 0.6 oz pure alco hol) socially Sex Assigned at Date Recorded Male 01/15/2018 11:39 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 MAKING MACHINE OPERATOR Telephone Encounter - Ivone Dubon - 01/27/2005 12:25 PM CST Carlos states that there is no more refills on his RX, would like to come in to have LIPIDS checked before the end of the year (insurance reasons) If OK, please put in future order, and then we can contact pt for lab only appt. Pt can reached at [phone]. Was seen last on 08/05/04. Yashira Dubon CMA MAKING MACHINE OPERATOR documented in this encounter Plan of Treatment Not on filedocumented as of this encounter Visit Diagnoses Diagnosis Mixed hyperlipidemia Essential hypertension, benign documented in this encounter Care Teams Hydraulics Teacher Relationship Specialty Start Date End Date Nasir Velazquez MD PCP - General 02/18/99 10/06/13 [facility] [address] [place] [address] documented as of this encounter
--- OUTSIDE RECORDS SUMMARY | 2021-11-07 15:46 | XMS_ITS | Encounter Summary ---
:1945 Author Organization [place] Address [address] [place] [address] Care Team Providers Name Role Phone Nasir Nicole MD Primary Care Provider [phone] Reason for Visit Reason Onset Date Comments X-ray Results 02/02/2004 Encounter Details Date Type Department Care Team Description 01/18/2004 Telephone [facility] Fabricio Nicole MD X-ray Results [place] [address] [facility] [address] [place], [place] [address] [place] [address] [phone] Social History Tobacco Use Types Packs/Day Years Used Date Former Smoker Quit: 02/05/18 85 Alcohol Use Standard Drinks/Week Comments Yes 1.7 (1 standard drink = 0.6 oz pure alco hol) Sex Assigned at Date Recorded Male 01/15/2018 11:39 PM 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 He wanted to know what his neck xray showed.? Patient can be reached at [phone] thanks documented in this encounter Plan of Treatment Not on filedocumented as of this encounter Visit Diagnoses Not on filedocumented in this encounter Care Teams Casting Machine Set Up Operator Relationship Specialty Start Date End Date Nasir Nicole MD PCP - General 02/18/99 10/06/13 [facility] [address] [place] [address] documented as of this encounter
--- OUTSIDE RECORDS SUMMARY | 2021-11-07 15:47 | XMS_ITS | Encounter Summary ---
:1945 Author Organization [place] Address [address] [facility] [place] [address] Care Team Providers Name Role Phone Nasir Velazquez MD Primary Care Provider [phone] Reason for Referral Other (Routine) - Closed Specialty Diagnoses / Procedures Referred By Contact Refer red To Contact Gastroenterology Diagnoses Screening for malignant neoplasm of the rectum Diogo Velazquez MD Nemer, Frederic [address] [facility] MD Geoff [place], [place] [address] [place] [address] Phone: Fax: Referral ID Status Reason Start Date Expiration Date Visits V isits Requested Authorized [id number] Closed Service Not 11/04/2002 02/04/2011 1 1 Available at Clinic Encounter Details Date Type Department Care Team Description 11/04/2002 [facility] Diogo Velazquez SC REENING MAL Physicians MD NEOP-RECTUM (Primary [address] [address] [facility]) [address] [place] [address] [phone] Social History Tobacco Use Types Packs/Day Years Used Date Former Smoker Quit: 02/05/18 85 Alcohol Use Standard Drinks/Week Comments Yes 1.7 (1 standard drink = 0.6 oz pure alco hol) Sex Assigned at Date Recorded Male 01/15/2018 11:39 PM MANAGER MED SURG documented as of this encounter Plan of Treatment Not on filedocumented as of this encounter Procedures Procedure Name Priority Date/Time Associated Diagnosis Comme [facility] Z GASTROENTEROLOGY ADULT Routine 11/11/2002 Screening Mal N eop-Rectum REFERRAL +/- PROCEDURE documented in this encounter Results CONSULT TO GASTROENTEROLOGY (11/11/2002) Narrative This result has an attachment that is no t available. Diogo Velazquez MD REFERRAL documented in this encounter Visit Diagnoses Diagnosis Screening for malignant neoplasm of the rectum - Primary documented in this encounter Care Teams Sprayer Machine Relationship Specialty Start Date End Date Nasir Velazquez MD PCP - General 02/18/99 10/06/13 [facility] [address] [place] [address] documented as of this encounter
--- OUTSIDE RECORDS SUMMARY | 2021-11-07 15:47 | XMS_ITS | Encounter Summary ---
:1945 Author Organization [place] Address [address] [facility] [place] [address] Care Team Providers Name Role Phone Nasir Velazquez MD Primary Care Provider [phone] Raghavendra Deras MD Primary Care Provider Unavailable Encounter Details Date Type Department Care Team Description 01/09/2003 Historic Results [facility] Heart Unknown, 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 Provider Scan CV ECHO ORDERABLES documented in this encounter Visit Diagnoses Not on filedocumented in this encounter Care Teams Global Sales Executive Relationship Specialty Start Date End Date Nasir Velazquez MD PCP - General 02/18/99 10/06/13 [facility] [address] [place] [address] Raghavendra Deras MD PCP - General Family Practice 10/07/13 documented as of this encounter
--- OUTSIDE RECORDS SUMMARY | 2021-11-07 15:47 | XMS_ITS | Encounter Summary ---
:1945 Author Organization [place] Address [facility] [place] [address] Care Team Providers Name Role Phone Nasir Velazquez MD Primary Care Provider [phone] Reason for Visit Reason Onset Date Comments Refill Request 08/21/2003 Encounter Details Date Type Department Care Team Description 08/21/2003 Refill [facility] Dillan Fajardo MD Refill Request Physicians XXX RETIRED XXX [address] [address] [address] [address] [address] [place] [address] [place] [address] [phone] Social History Tobacco Use Types Packs/Day Years Used Date Former Smoker Quit: 02/05/18 85 Alcohol Use Standard Drinks/Week Comments Yes 1.7 (1 standard drink = 0.6 oz pure alco hol) Sex Assigned at Date Recorded Male 01/15/2018 11:39 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 called [facility] where his Rx faxed. It been faxed to [facility]. documented in this encounter Plan of Treatment Not on filedocumented as of this encounter Visit Diagnoses Not on filedocumented in this encounter Care Teams Mine Deputy Relationship Specialty Start Date End Date Nasir Velazquez MD PCP - General 02/18/99 10/06/13 [facility] [address] [place] [address] documented as of this encounter
--- OUTSIDE RECORDS SUMMARY | 2021-11-07 15:47 | XMS_ITS | Encounter Summary ---
:1945 Author Organization [place] Address [address] [facility] [place] [address] Care Team Providers Name Role Phone Nasir Velazquez MD Primary Care Provider [phone] Reason for Visit Reason Comments Thumb Discomfort Encounter Details Date Type Department Care Team Description 07/17/2002 Office Visit [place] Diogo Arnold TRIGGER FINGER (Primary Dx); Physicians MD Bob ALLERGIC RHINITIS NOS; [address] [place], [place] [address] [place] [address] [employer] ANAL [facility]RHAGE [address] [place] [id number] (Wo rk) Social History Tobacco Use Types Packs/Day Years Used Date Former Smoker Quit: 02/05/18 85 Alcohol Use Standard Drinks/Week Comments Yes 1.7 (1 standard drink = 0.6 oz pure alco hol) Sex Assigned at Date Recorded Male 01/15/2018 11:39 PM 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 [...] anus documented in this encounter Care Teams Band Teacher Relationship Specialty Start Date End Date Nasir Velazquez MD PCP - General 02/18/99 10/06/13 [address] [place] [address] documented as of this encounter
--- OUTSIDE RECORDS SUMMARY | 2021-11-07 15:47 | XMS_ITS | Encounter Summary ---
:1945 Author Organization [place] Address [address] [facility] [place] [address] Care Team Providers Name Role Phone Nasir Velazquez MD Primary Care Provider [phone] Raghavendra Deras MD Primary Care Provider Unavailable Raghavendra Deras MD Unavailable Unavailable Raghavendra Deras MD Unavailable Unavailable Encounter Details Date Type Department Care Team Description 01/09/2003 [facility] SiddharthDiogo garibay, EST PAIN NOS (Primary Dx); Physicians MIXED HYPERLIPIDEMIA ; [address] [address] [facility] BENIGN HYPERTENSION ; [address] [place], [place] MIXED HYPERLIPIDEMIA; [place] [address] [facility] SKILLED NURSING USE MEDICATN [id number] [phone] Social History Tobacco Use Types Packs/Day Years [...] at Date Recorded Male 01/15/2018 11:39 PM 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 Assessment: 1) Negative subjective stress EKG 2) Negative objective stress EKG 3) Echo report from Lockstitch Front Edge Tape Sewer is pending 4) Risk factors for coronary [...] medications documented in this encounter Care Teams Range Conservationist Relationship Specialty Start Date End Date Nasir Velazquez MD PCP - General 02/18/99 10/06/13 [facility] [address] [place] [address] Raghavendra Deras MD PCP - General Family Practice 10/07/13 Raghavendra Deras MD PCP - Assigned PCP 01/23/16 04/09/18 Raghavendra Deras MD Assigned PCP 01/23/16 05/14/21 documented as of this encounter
--- OUTSIDE RECORDS SUMMARY | 2021-11-07 15:47 | XMS_ITS | Encounter Summary ---
:1945 Author Organization [place] Address [facility] [place] [address] Care Team Providers Name Role Phone Nasir Nicole MD Primary Care Provider [phone] Reason for Visit Reason Onset Date Comments Lab Result Notice 01/15/2004 x ray Encounter Details Date Type Department Care Team Description 01/15/2004 Telephone [facility] Nasir Nicole Lab Re sult Notice (x Clinic [place] MD Geraldo ray) [address] [place], [place] [address] [facility] [address] [facility] [phone] [place] [address] (Wo rk) Social History Tobacco Use Types Packs/Day Years Used Date Former Smoker Quit: 02/05/18 85 Alcohol Use Standard Drinks/Week Comments Yes 1.7 (1 standard drink = 0.6 oz pure alco hol) Sex Assigned at Date Recorded Male 01/15/2018 11:39 PM SKIN CARVER documented as of this encounter Miscellaneous Notes Telephone Encounter - 01/15/2004 11:54 AM SKIN CARVER >> FABRICIO NICOLE SunJan 15, 2004 5:00 [...] his X- ray's. Please call Terry at [phone] 01-14@11:30a.m. documented in this encounter Plan of Treatment Not on filedocumented as of this encounter Visit Diagnoses Not on filedocumented in this encounter Care Teams Watch Repairer Relationship Specialty Start Date End Date Nasir Nicole MD PCP - General 02/18/99 10/06/13 [address] [place] [address] documented as of this encounter
--- OUTSIDE RECORDS SUMMARY | 2021-11-07 15:47 | XMS_ITS | Encounter Summary ---
:1945 Author Organization [place] Address [facility] [place] [facility] [place] [address] Care Team Providers Name Role Phone Nasir Velazquez MD Primary Care Provider [phone] Reason for Visit Reason Comments forms records release to Dr. Gonzales, 04/01/02 Encounter Details Date Type Department Care Team Description 04/01/2002 Telephone [facility], Provider (re cords release to Physicians Dr. 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
--- OUTSIDE RECORDS SUMMARY | 2021-11-07 15:47 | XMS_ITS | Encounter Summary ---
:1945 Author Organization [place] Address [address] [facility] [place] [address] Care Team Providers Name Role Phone Nasir Nicoel MD Primary Care Provider [phone] Reason for Referral - Closed Specialty Diagnoses / Procedures Referred By Contact Refer red To Contact Orthopedics Diagnoses Pain in limb Fabricio Nicole MD Simonet, William T, [place] [id number] [facility] [place], [place] [address] [place] [address] [place] [address] Phone: Fax: Referral ID Status Reason Start Date Expiration Date Visits Requ ested Visits Authorized [id number] Closed 03/31/2002 02/04/2011 1 1 STRIAL AUTOMATION SPECIALIST Reason for Visit Reason Comments Referral Encounter Details Date Type Department Care Team Description 03/31/2002 Telephone Fabricio Mujica MD Referral Physicians 183080 [facility] [address] [place] [address] [address] [place] [address] [phone] Social History Tobacco Use Types Packs/Day Years Used Date Former Smoker Quit: 01/01/19 85 Alcohol Use Standard Drinks/Week Comments Yes 1.7 (1 standard drink = 0.6 oz pure alco hol) Sex Assigned at Date Recorded Male 01/15/2018 11:39 PM 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 Rushing. >> FABRICIO NICOLE Mon Mar 31, 2002 12:45 PM OK to set him up with Dr. Rushing >> MAURICE BOSWELL Mon Mar 31, 2002 12:15 PM >> CALL RECEIVED. Contact: [phone] Pt calling clinic support mal in regards to the following: He was in to see you last week for leg problem. Pt would now like referral for this. documented in this encounter Plan of Treatment Not on filedocumented as of this encounter Procedures Procedure Name Priority Date/Time Associated Diagnosis Comme [facility] ORTHOPEDICS ADULT REFERRAL Routine 04/01/2002 Pain In Limb documented in this encounter Results CONSULT TO ORTHOPEDICS (04/01/2002) Narrative This result has an attachment that is no t available. Fabricio Nicole MD REFERRAL documented in this encounter Visit Diagnoses Diagnosis Pain in limb - Primary documented in this encounter Care Teams Cage Unloader Relationship Specialty Start Date End Date Nasir Nicole MD PCP - General 02/18/99 10/06/13 [facility] [address] [place] [address] documented as of this encounter
--- OUTSIDE RECORDS SUMMARY | 2021-11-07 15:47 | XMS_ITS | Encounter Summary ---
:1945 Author Organization [place] Address [address] [facility] [place] [address] Care Team Providers Name Role Phone Nasir Nicole MD Primary Care Provider [phone] Reason for Visit Reason Comments Refill Request Encounter Details Date Type Department Care Team Description 11/11/2001 Refill [facility] Fabricio Nicole MD Refill Request Physicians [id number] [facility] [address] [address] [address] [place] [address] [phone] Social History Tobacco Use Types Packs/Day Years Used Date Former Smoker Quit: 02/05/18 85 Alcohol Use Standard Drinks/Week Comments Yes 1.7 (1 standard drink = 0.6 oz pure alco hol) Sex Assigned at Date Recorded Male 01/15/2018 11:39 PM 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
--- OUTSIDE RECORDS SUMMARY | 2021-11-07 15:47 | XMS_ITS | Encounter Summary ---
:1945 Author Organization [place] Address [address] [facility] [place] [address] Care Team Providers Name Role Phone Nasir Nicole MD Primary Care Provider [phone] Reason for Visit Reason Comments Refill Request Ria Chen Encounter Details Date Type Department Care Team Description 04/13/2001 Refill [facility] Fabricio Nicole, Carito fill Request Physicians (Ria Chen) [id number] 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
--- OUTSIDE RECORDS SUMMARY | 2021-11-07 15:47 | XMS_ITS | Encounter Summary ---
:1945 Author Organization [place] Address [address] [facility] [place] [address] Care Team Providers Name Role Phone Nasir Velazquez MD Primary Care Provider [phone] Reason for Visit Reason Comments Refill Request Derm Problem lesion right orthodoxy area Encounter Details Date Type Department Care Team Description 11/12/2001 Office Visit [place] Diogo Arnold SEBISAUROE IC KERATOSIS NOS (Primary Dx); Physicians MD Bob SCREENING-LIPOID DISORDERS; [address] [place] [address]61 [place] [facility]INIT[facility] NOS; [address] HYPERTROPHY (BENIGN) [place] [address] [phone] (Wo rk) Social History Tobacco Use Types Packs/Day Years Used Date Former Smoker Quit: 02/05/18 85 Alcohol Use Standard Drinks/Week Comments Yes 1.7 (1 standard drink = 0.6 oz pure alco hol) Sex Assigned at Date Recorded Male 01/15/2018 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 Derm Problem - lesion right orthodoxy area. It has benign appea deric, with [...] you to look at lesion on right orthodoxy area. documented in this encounter Plan of Treatment Not on filedocumented as of this encounter Visit Diagnoses Diagnosis Other seborrheic keratosis - Primary Screening for lipoid disorders Allergic rhinitis, cause unspecified HYPERTROPHY (BENIGN) PROSTATE Hypertrophy (benign) of prostate documented in this encounter Care Teams Aircraft Painter Relationship Specialty Start Date End Date Nasir Velazquez MD PCP - General 02/18/99 10/06/13 [facility] [address] [place] [address] documented as of this encounter
--- OUTSIDE RECORDS SUMMARY | 2021-11-07 15:47 | XMS_ITS | Encounter Summary ---
:1945 Author Organization [place] Address [address] [place] [address] Care Team Providers Name Role Phone Nasir Velazquez MD Primary Care Provider [phone] Reason for Visit Reason Comments Cough Encounter Details Date Type Department Care Team Description 03/25/[address] 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 documented as of this encounter Last Filed Vital Signs Vital Sign Reading Time Taken Comments Blood Pressure 134/80 03/25/2002 10:45 AM HUNTING SALES ASSOCIATE Pulse - - Temperature - - Respiratory Rate - - Oxygen Saturation - - Inhaled Oxygen Concentration - - Weight 86.2 kg (190 lb) 03/25/2002 10:45 AM HUNTING SALES ASSOCIATE Height - - Body Mass Index 27.26 09/16/1999 10:45 AM CDT documented in this encounter Progress Notes 03/25/2002 10:45 AM HUNTING SALES ASSOCIATE pt c/o cough x3w, had laryngitis at [...] R: 0 ADVAIR DISKUS 100-50 [facility], one inhalation twice per day, D: 1, [...] unspecified documented in this encounter Care Teams French Edge Operator Relationship Specialty Start Date End Date Nasir Velazquez MD PCP - General 02/18/99 10/06/13 [facility] [address] [place] [address] documented as of this encounter
--- OUTSIDE RECORDS SUMMARY | 2021-11-07 15:47 | XMS_ITS | Encounter Summary ---
:1945 Author Organization [place] Address [address] [facility] 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
--- OUTSIDE RECORDS SUMMARY | 2021-11-07 15:47 | XMS_ITS | Encounter Summary ---
:1945 Author Organization [place] Address [facility] [place] [address] Care Team Providers Name Role Phone Nasir Velazquez MD Primary Care Provider [phone] Reason for Visit Reason Comments Back Pain Encounter Details Date Type Department Care Team Description 04/20/2001 Office Visit [facility] Sharath Nam [facility]; Physicians MD Geoff SPASM OF MUSCLE; [address] XXX RETIRED XXX LUMBAGO [address] [facility] [place] [address] [place], [place] [phone] [address] (Wo rk) Social History Tobacco Use Types Packs/Day Years Used Date Former Smoker Quit: 02/05/18 85 Alcohol Use Standard Drinks/Week Comments Yes 1.7 (1 standard drink = 0.6 oz pure alco hol) Sex Assigned at Date Recorded Male 01/15/2018 11:39 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 documented as of this encounter Last Filed Vital Signs Vital Sign Reading Time Taken Comments Blood Pressure 130/80 04/20/2001 10:15 AM VEHICLE BODY SANDER Pulse - - Temperature 36.3 ??C (97.3 ??F) 04/20/2001 10:15 AM VEHICLE BODY SANDER Respiratory Rate 16 04/20/2001 10:15 AM VEHICLE BODY SANDER Oxygen Saturation - - Inhaled Oxygen Concentration - - Weight 85.3 kg (188 lb) 04/20/2001 10:15 AM VEHICLE BODY SANDER Height - - Body Mass Index 26.98 09/16/1999 10:45 AM CDT documented in this encounter Progress Notes 04/20/2001 10:15 AM VEHICLE BODY SANDER SPRAIN LUMBAR REGION [847.2] SPASM OF MUSCLE [...] more definitive. OBI DAVIS M.D. Certified - [place] [employer] Accredited for Mammography - [place] [employer] MJG/rs dt: ??04/24/01 ? Sharath Nam MD GENERAL IMAGING documented in this encounter Visit Diagnoses Diagnosis Sprain of lumbar region Spasm of muscle Lumbago documented in this encounter Care Teams Windows Systems Architect Relationship Specialty Start Date End Date Nasir Velazquez MD PCP - General 02/18/99 10/06/13 [place] [address] [place] [address] documented as of this encounter
--- OUTSIDE RECORDS SUMMARY | 2021-11-07 15:47 | XMS_ITS | Encounter Summary ---
:1945 Author Organization [place] Address [address] [facility] [place] [address] Care Team Providers Name Role Phone Nasir Velazquez MD Primary Care Provider [phone] Reason for Referral - Closed Specialty Diagnoses / Procedures Referred By Contact Refer red To Contact Diagnoses Cervicalgia Diogo Velazquez MD 321604 [place], [place] [address] Referral ID Status Reason Start Date Expiration Date Visits Requ ested Visits Authorized [id number] Closed 01/08/2004 02/04/2011 1 1 UCTION ROUSTABOUT Reason for Visit Reason Comments Foot Problems Medication Request renew meds Encounter Details Date Type Department Care Team Description [facility] D[facility] Clinic Candy Rojas MD MIXED HYPERLIPIDEMIA ; [address] [facility] [id number] [facility] MEDI CATN; [place], [place] AV BENIGN HYPERTENSION; [address] [place], [place] ESOPHAGEAL REFLUX ; [phone] [address] HYPERTROPHY of PROSTATE ; [phone] PAIN IN Rt Foot (Work) Social History Tobacco Use Types Packs/Day Years Used Date Former Smoker Quit: 02/05/18 85 Alcohol Use Standard Drinks/Week Comments Yes 1.7 (1 standard drink = 0.6 oz pure alco hol) Sex Assigned at Date Recorded Male 01/15/2018 11:39 PM PRODUCTION ROUSTABOUT documented as of this encounter Last Filed Vital Signs Vital Sign Reading Time Taken Comments Blood Pressure 131/80 01/08/2004 11:11 AM PRODUCTION ROUSTABOUT Pulse 56 01/08/2004 11:11 AM PRODUCTION ROUSTABOUT Temperature 36.6 ??C (97.8 ??F) 01/08/2004 11:11 AM PRODUCTION ROUSTABOUT Respiratory Rate - - Oxygen Saturation - - Inhaled Oxygen Concentration - - Weight 86.6 kg (191 lb) 01/08/2004 11:11 AM PRODUCTION ROUSTABOUT Height 177.8 cm (5' 10) 01/08/2004 11:11 AM PRODUCTION ROUSTABOUT Body Mass Index 27.41 01/08/2004 11:11 AM PRODUCTION ROUSTABOUT documented in this encounter Progress Notes 01/08/2004 11:00 AM PRODUCTION ROUSTABOUT SUBJECTIVE: Lo Neumann, a 58 year old [...] I sent the Rxs to the pharmacies ([address] [facility] ) 530.81 ESOPHAGEAL REFLUX Note: [...] Results Name Type Priority Associated Diagnoses Date/Ti ak X-RAY CERV SPINE 2 OR 3 Imaging Routine Cervicalgia 04/2003 12:06 PM PRODUCTION ROUSTABOUT VIEW documented as of this encounter Procedures Procedure Name Priority Date/Time Associated Diagnosis Comme nts Z SOTO PT AND HAND Routine 01/27/2004 Cervicalgia REFERRAL HC X-RAY FOOT Routine 01/08/2004 12:39 PAIN IN Rt Foot Results for this COMPLETE >=3 VIEWS PM PRODUCTION ROUSTABOUT procedure are in the results section. HCL ALT Routine 01/08/2004 11:48 MIXED HYPERLIPI DEMIA Results for this AM PRODUCTION ROUSTABOUT Aftercare Custom Frame Assembler Use proc edure are in Medicatn the results section. CL AFF A.M.A. Routine 01/08/2004 11:48 MIXED HYPERLIPI DEMIA Results for this LIPID PANEL AM PRODUCTION ROUSTABOUT Aftercare Fdc Use proc edure are in Medicatn the results section. documented in this encounter Results CONSULT SOTO (PT & CHIRO) (01/27/2004) Narrative This result has an attachment that is no t available. Diogo Velazquez MD REFERRAL X-RAY FOOT 3+ VW (01/08/2004 12:39 PM PRODUCTION ROUSTABOUT) Anatomical Region Laterality Modality Other Specimen (Source) Anatomical Collection Method Collection Time Re ceived Time Location / / Volume Laterality 01/08/2004 12:39 PM PRODUCTION ROUSTABOUT Impressions 01/08/2004 12:39 PM PRODUCTION ROUSTABOUT REPORT OF OUTSIDE FILMS FROM [facility] LO NEUMANN : ??45 THREE-VIEW RIGHT FOOT: [...] ALANINE AMINO (ALT) (SGPT) (01/08/2004 11:48 AM PRODUCTION ROUSTABOUT) P athologist Signature ALT 59 0 - 70 U/L [facility] Specimen Anatomical Collection Method Collection Time Receive d Time (Source) Location / / Volume Laterality 01/08/2004 11:48 01/08/2004 AM PRODUCTION ROUSTABOUT 11:49 AM PRODUCTION ROUSTABOUT Diogo Velazquez MD LABORATORY Performing Organization Address City/State/ZIP Code Phon e Number [address] [address] [facility] A.M.A. LIPID PANEL (01/08/2004 11:48 AM PRODUCTION ROUSTABOUT) athologist Signature Cholesterol 192 <200 mg/dL [facility] Comment: Cholesterol Reference Range: <200 ??The NCEP recommends further ? evaluation of: ? 1. ??Patients with cholesterol ? greater than 200 mg/dL ? if additional risk facto rs ? are present. ? 2. ??All patients with a ? cholesterol greater than ? 240 mg/dL. Triglycerides 93 <150 mg/dL [facility] HDL Cholesterol 57 >40 mg/dL [facility] LDL Cholesterol Calculated 116 0 - 129 mg/dL [facility] VLDL-Cholesterol 19 0 - 30 mg/dL [facility] Cholesterol/HDL Ratio 3.4 0.0 - 5.0 [facility] Specimen Anatomical Collection Method Collection Time Receive d Time (Source) Location / / Volume Laterality 01/08/2004 11:48 01/08/2004 AM PRODUCTION ROUSTABOUT 11:49 AM PRODUCTION ROUSTABOUT Diogo Velazquez MD LABORATORY Performing Organization Address City/State/ZIP Code Phon e Number [address] [address] [facility] documented in this encounter Visit Diagnoses Diagnosis Cervicalgia - Primary MIXED HYPERLIPIDEMIA Mixed hyperlipidemia Encounter for long-term (current) use of other medications Essential hypertension, benign ESOPHAGEAL REFLUX Esophageal reflux HYPERTROPHY of PROSTATE Hypertrophy of prostate without urinary obstruction and other lower urinary tract symptoms (LUTS) PAIN IN Rt Foot Pain in limb documented in this encounter Care Teams Tree Planter Relationship Specialty Start Date End Date Nasir Velazquez MD PCP - General 02/18/99 10/06/13 [facility] [address] [place] [address] documented as of this encounter
--- OUTSIDE RECORDS SUMMARY | 2021-11-07 15:47 | XMS_ITS | Encounter Summary ---
:1945 Author Organization [place] Address [address] 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 He is wondering if there is anything he can do for it, (like taking something [id number], or just doing something for it) or if he should make an appt. to come in tonight. His work # is listed above and he will be there until 11:00 tonight. If he does not need to come in, he said you can leave a message at his home # which is [phone]. documented in this encounter Plan of Treatment Not on filedocumented as of this encounter Visit Diagnoses Not on filedocumented in this encounter Care Teams Provider Relations Coordinator Relationship Specialty Start Date End Date Nasir Velazquez MD PCP - General 02/18/99 10/06/13 [facility] [address] [place] [address] documented as of this encounter
--- OUTSIDE RECORDS SUMMARY | 2021-11-07 15:47 | XMS_ITS | Encounter Summary ---
:1945 Author Organization [place] Address [facility]0 [facility] [place] [address] Care Team Providers Name Role Phone Nasir Velazquez MD Primary Care Provider [phone] Reason for Visit Reason Comments Musculoskeletal Problem Left thumb soreness Musculoskeletal Problem Left shoulder spasms Encounter Details Date Type Department Care Team Description 05/27/2002 Office Visit [facility] Tony Pastor [facility] Shantel Farley MD (Primary Dx) [address] [address] Social History Tobacco Use Types Packs/Day Years Used Date Former Smoker Quit: 02/05/18 85 Alcohol Use Standard Drinks/Week Comments Yes 1.7 (1 standard drink = 0.6 oz pure alco hol) Sex Assigned at Date Recorded Male 01/15/2018 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 Examination findings: t ship rigger finger, left index thumb, tender at base, [...] documented in this encounter Care Teams Director Digital Marketing Relationship Specialty Start Date End Date Nasir Velazquez MD PCP - General 02/18/99 10/06/13 [place] [address] [place] [address] documented as of this encounter
--- OUTSIDE RECORDS SUMMARY | 2021-11-07 15:47 | XMS_ITS | Encounter Summary ---
:1945 Author Organization [place] Address [facility] [place] [address] Care Team Providers Name Role Phone Nasir Velazquez MD Primary Care Provider [phone] Reason for Visit Reason Comments RECHECK Encounter Details Date Type Department Care Team Description 03/20/2003 Office Visit [facility] Diogo Velazquez [facility] H YPERTENSION Physicians MD Bob (Primary Dx) [address] [place] [id number] [place] [address] [phone] (Wo rk) Social History Tobacco Use Types Packs/Day Years Used Date Former Smoker Quit: 02/05/18 85 Alcohol Use Standard Drinks/Week Comments Yes 1.7 (1 standard drink = 0.6 oz pure alco hol) Sex Assigned at Date Recorded Male 01/15/2018 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 documented as of this encounter Last Filed Vital Signs Vital Sign Reading Time Taken Comments Blood Pressure 114/70 03/20/2003 10:15 AM CEREAL SUPERVISOR Pulse - - Temperature 36.2 ??C (97.1 ??F) 03/20/2003 10:15 AM CEREAL SUPERVISOR Respiratory Rate - - Oxygen Saturation - - Inhaled Oxygen Concentration - - Weight 88 kg (194 lb) 03/20/2003 10:15 AM CEREAL SUPERVISOR Height - - Body Mass Index 27.06 12/30/2002 9:00 AM CEREAL SUPERVISOR documented in this encounter Progress Notes 03/20/2003 10:15 AM CEREAL SUPERVISOR Patientis here for a recheck on his [...] Primary documented in this encounter Care Teams Blanking Machine Operator Relationship Specialty Start Date End Date Nasir Velazquez MD PCP - General 02/18/99 10/06/13 [facility] [address] [place] [address] documented as of this encounter
--- OUTSIDE RECORDS SUMMARY | 2021-11-07 15:47 | XMS_ITS | Encounter Summary ---
:1945 Author Organization [place] Address [address] [facility] [place] [address] Care Team Providers Name Role Phone Nasir Velazquez MD Primary Care Provider [phone] Reason for Referral - Closed Specialty Diagnoses / Procedures Referred By Contact Refer red To Contact Orthopedics Diagnoses Trigger finger (acquired) Diogo Velazquez MD Simonet, William T, [place] [id number] [place] [address] [place], [place] [address] [address] [address] [place] [address] Phone: Fax: Referral ID Status Reason Start Date Expiration Date Visits Requ ested Visits Authorized [id number] Closed 08/11/2002 02/04/2011 1 1 Reason for Visit Reason Comments RECHECK Encounter Details Date Type Department Care Team Description 08/11/2002 Office Visit Diogo Mujica TRIGGER FINGER Physicians MD Bob (Primary Dx) [address] [place] [id number] [phone] (Wo rk) Social History Tobacco Use Types Packs/Day Years Used Date Former Smoker Quit: 02/05/18 85 Alcohol Use Standard Drinks/Week Comments Yes 1.7 (1 standard drink = 0.6 oz pure alco hol) Sex Assigned at Date Recorded Male 01/15/2018 11:39 PM 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
--- OUTSIDE RECORDS SUMMARY | 2021-11-07 15:47 | XMS_ITS | Encounter Summary ---
:1945 Author Organization [place] Address [address] [facility] [place] [address] Care Team Providers Name Role Phone Nasir Velazquez MD Primary Care Provider [phone] Reason for Visit Reason Comments Call Back Encounter Details Date Type Department Care Team Description 12/30/2002 Telephone [facility] Diogo Velazquez MD Call Back Physicians [id number] [facility] [address] [place] [address] [address] [place] [address] [phone] Social History Tobacco Use Types Packs/Day Years Used Date Former Smoker Quit: 02/05/18 85 Alcohol Use Standard Drinks/Week Comments Yes 1.7 (1 standard drink = 0.6 oz pure alco hol) Sex Assigned at Date Recorded Male 01/15/2018 11:39 PM MANAGER OF IT documented as of this encounter Miscellaneous Notes Telephone Encounter - 12/30/2002 11:59 PM MANAGER OF IT >> HENRIETTA JOSEPH Wed Dec 31, 2002 [...] on filedocumented in this encounter Care Teams Pantograph Machine Set Up Operator Relationship Specialty Start Date End Date Nasir Velazquez MD PCP - General 02/18/99 10/06/13 [facility]3] [address] [place] [address] documented as of this encounter
--- OUTSIDE RECORDS SUMMARY | 2021-11-07 15:47 | XMS_ITS | Encounter Summary ---
:1945 Author Organization [place] Address [facility] [place] [address] Care Team Providers Name Role Phone Nasir Nicole MD Primary Care Provider [phone] Reason for Visit Reason Comments Referral Colonoscopy Encounter Details Date Type Department Care Team Description 10/27/2002 Telephone [facility] Dillan Fajardo Re ferral (Colonoscopy) Physicians [address] XXX RETIRED XXX [address] [place], [place] [address] [place], [place] [phone] [address] (Wo rk) Social History Tobacco Use Types Packs/Day Years Used Date Former Smoker Quit: 02/05/18 85 Alcohol Use Standard Drinks/Week Comments Yes 1.7 (1 standard drink = 0.6 oz pure alco hol) Sex Assigned at Date Recorded Male 01/15/2018 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 Not sure if he wants to wait that long. Might make appt with . Will call me back so I know who & where to do the referral. >> ONIEL BARRIOS [facility] Oct 29, 2002 2:[address] # [phone] >> ONIEL BARRIOS [facility] Oct 29, 2002 2:18 PM Left patient [...] to choose the colonscopy. Call him at [phone] to help with scheduling. Ariella documented in this encounter Plan of Treatment Not on filedocumented as of this encounter Visit Diagnoses Not on filedocumented in this encounter Care Teams Dev Technical Mgr Relationship Specialty Start Date End Date Nasir Nicole MD PCP - General 02/18/99 10/06/13 [facility] [address] [place] [address] documented as of this encounter
--- OUTSIDE RECORDS SUMMARY | 2021-11-07 15:47 | XMS_ITS | Encounter Summary ---
:1945 Author Organization [place] Address [address] [facility] [place] [address] Care Team Providers Name Role Phone Nasir Velazquez MD Primary Care Provider [phone] Reason for Visit Reason Comments Blood Draw Encounter Details Date Type Department Care Team Description 02/17/2002 Orders Only [facility] Diogo Velazquez SC REENING-LIPOID Physicians DISORDERS (Primary [address] [address] [facility] Dx) [address] [place] [address] [phone] Social History Tobacco Use Types Packs/Day Years Used Date Former Smoker Quit: 02/05/18 85 Alcohol Use Standard Drinks/Week Comments Yes 1.7 (1 standard drink = 0.6 oz pure alco hol) Sex Assigned at Date Recorded Male 01/15/2018 11:39 PM INNER 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 HC VENOUS COLLECTION Routine 02/17/2002 9:07 AM Screening-Lipo id INNER DIAMETER GRINDER TOOL Disorders documented in this encounter Results (ABNORMAL) A.M.A. LIPID PANEL (02/17/2002 9:07 AM INNER DIAMETER GRINDER TOOL) [facility] Method Time Signature Comments DNR [facility] Triglycerides 155 (H) <150 MG/DL [facility] Cholesterol 207 (H) <200 MG/DL [facility] Cholesterol 36 PERCENTILE [facility] Percentile HDL Cholesterol 41 >39 MG/DL [facility] LDL Cholesterol 135 (H) <130 MG/DL [facility] Calculated Comment: LDL CHOLESTEROL (MG/DL) GOALS AND [...] / Volume Laterality 02/17/2002 9:07 AM 3 INNER DIAMETER GRINDER TOOL Diogo Velazquez MD LABORATORY Performing Organization Address City/State/ZIP Code [facility] e Number [facility] documented in this encounter Visit Diagnoses Diagnosis Screening for lipoid disorders - Primary documented in this encounter Care Teams Treasury Agent Relationship Specialty Start Date End Date Nasir Velazquez MD PCP - General 02/18/99 10/06/13 [facility] [address] [place] [address] documented as of this encounter
--- OUTSIDE RECORDS SUMMARY | 2021-11-07 15:47 | XMS_ITS | Encounter Summary ---
:1945 Author Organization [place] Address [address] [facility] [place] [address] Care Team Providers Name Role Phone Nasir Velazquez MD Primary Care Provider [phone] Reason for Visit Reason Comments RECHECK Encounter Details Date Type Department Care Team Description 02/03/2003 Office Visit [facility] Diogo Velazquez MIXED HY PERLIPIDEMIA; Physicians MD Bob [facility] USE MEDICATN; [address] [address] [place] [facility] ; [address] [place] [address] [phone] (Wo rk) Social History Tobacco Use Types Packs/Day Years Used Date Former Smoker Quit: 02/05/18 85 Alcohol Use Standard Drinks/Week Comments Yes 1.7 (1 standard drink = 0.6 oz pure alco hol) Sex Assigned at Date Recorded Male 01/15/2018 11:39 PM DIRECTOR CLIENT SERVICES documented as of this encounter Last Filed Vital Signs Vital Sign Reading Time Taken Comments Blood Pressure 136/70 02/03/2003 10:45 AM DIRECTOR CLIENT SERVICES Pulse - - Temperature 36.4 ??C (97.6 ??F) 02/03/2003 10:45 AM DIRECTOR CLIENT SERVICES Respiratory Rate - - Oxygen Saturation - - Inhaled Oxygen Concentration - - Weight 87.5 kg (193 lb) 02/03/2003 10:45 AM DIRECTOR CLIENT SERVICES Height - - Body Mass Index 26.92 12/30/2002 9:00 AM DIRECTOR CLIENT SERVICES documented in this encounter Progress Notes 02/03/2003 10:45 AM DIRECTOR CLIENT SERVICES In for recheck on blood pressure and cholesterol review. CHOLESTEROL (MG/DL) Date Value Low High Status 12/31/2002 222* <200 Final ]. He will have lipid & liver profile done today & I will contact the patient when lab results available. ############################################################## Will want hard copy to send to [facility] if lipid & liver profile are within [...] LABELS Routine 02/03/2003 12:04 Mixed Hyperlipidemia PM DIRECTOR CLIENT SERVICES LABELS Routine 02/03/2003 12:02 Mixed Hyperlipi demia PM DIRECTOR CLIENT SERVICES Aftercare Crude Oil Treater Use Medicatn HCL HEPATIC PANEL Routine 02/03/2003 11:26 Mixed Hyperli pidemia Results for this AM DIRECTOR CLIENT SERVICES Aftercare Correction procedur e are in Use Medicatn the results section. HCL LIPID PANEL Routine 02/03/2003 11:26 Mixed Hyperlipi demia Results for this AM DIRECTOR CLIENT SERVICES Aftercare Crude Oil Treater procedur e are in Use Medicatn the results section. HC VENOUS Routine 02/03/2003 11:26 Mixed Hyperlipi demia COLLECTION AM DIRECTOR CLIENT SERVICES Aftercare Correction Use Medicatn documented in this encounter Results (ABNORMAL) A.M.A. LIPID PANEL (02/03/2003 11:26 AM DIRECTOR CLIENT SERVICES) Patholo gist Method Time Signature Comments DNR [facility] Triglycerides 179 (H) <150 MG/DL [facility] Cholesterol 179 <200 MG/DL [facility] Cholesterol 14 PERCENTILE [facility] Percentile HDL Cholesterol 51 >39 MG/DL [facility] LDL Cholesterol 92 <130 MG/DL [facility] Calculated Cholesterol/HDL 3.5 <5.0 [facility] Ratio Specimen (Source) Anatomical Collection Method Collection Time Re ceived Time Location / / Volume Laterality 02/03/2003 11:26 02/03/2003 AM DIRECTOR CLIENT SERVICES Diogo Velazquez MD LABORATORY Performing Organization Address City/State/ZIP Code Phon e Number [facility] A.M.A. HEPATIC PANEL (02/03/2003 11:26 AM DIRECTOR CLIENT SERVICES) P athologist Signature Comments DNR [facility] Protein Total 7.8 6.0 - 8.3 [facility] G/DL Albumin 4.3 3.5 - 4.9 [facility] G/DL Globulin 3.5 2.2 - 4.2 [facility] Calculated G/DL A/G Ratio 1.2 0.8 - 2.0 [facility] Bilirubin Total 0.6 0.2 - 1.5 [facility] MG/DL Bilirubin Direct 0.1 0.0 - 0.3 [facility] MG/DL Alkaline 121 20 - 125 [facility] Phosphatase U/L AST 24 2 - 50 U/L [facility] ALT 28 2 - 60 U/L [facility] Specimen (Source) Anatomical Collection Method Collection Time Re ceived Time Location / / Volume Laterality 02/03/2003 11:26 02/03/2003 AM DIRECTOR CLIENT SERVICES Diogo Velazquez MD LABORATORY Performing Organization Address City/State/ZIP Code Phon e Number [facility] documented in this encounter Visit Diagnoses Diagnosis Mixed hyperlipidemia Encounter for long-term (current) use of other medications BENIGN HYPERTENSION Essential hypertension, benign ESOPHAGEAL REFLUX Esophageal reflux documented in this encounter Care Teams Skin Piler Relationship Specialty Start Date End Date Nasir Velazquez MD PCP - General 02/18/99 10/06/13 [facility] [address] [place] [address] documented as of this encounter
--- OUTSIDE RECORDS SUMMARY | 2021-11-07 15:47 | XMS_ITS | Encounter Summary ---
:1945 Author Organization [place] Address [facility] [place] [address] Care Team Providers Name Role Phone Nasir Velazquez MD Primary Care Provider [phone] Reason for Visit Reason Comments Musculoskeletal Problem Encounter Details Date Type Department Care Team Description 08/13/2003 Office Visit [facility] Dillan Fajardo MIXED HYP ERLIPIDEMIA (Primary Dx); Physicians MD Geoff [facility] TIE LOADER USE MEDICATN; [address] XXX RETIRED XXX BENIGN HYPERTENSION ; [address] [place], [place] [address] [address] [place], [place] [phone] [address] Social History Tobacco Use Types Packs/Day Years Used Date Former Smoker Quit: 02/05/18 85 Alcohol Use Standard Drinks/Week Comments Yes 1.7 (1 standard drink = 0.6 oz pure alco hol) Sex Assigned at Date Recorded Male 01/15/2018 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 documented as of this encounter Last [...] Body Mass Index 25.66 12/30/2002 9:00 AM FOILING MACHINE ADJUSTER documented in this encounter Progress Notes 08/13/2003 [...] At Patho logist Time Signature Comments DNR [facility] Glucose 100 (H) 65 - 99 [facility] MG/DL Sodium 140 135 - 146 [facility] MMOL/L Potassium 3.9 3.5 - 5.3 [facility] MMOL/L Chloride 104 98 - 110 [facility] MMOL/L Urea Nitrogen 15 7 - 25 [facility] MG/DL Creatinine 1.1 0.5 - 1.4 [facility] MG/DL BUN/Creatinine 14 6 - 25 [facility] Ratio Calcium 9.5 8.5 - 10.4 [facility] MG/DL Protein Total 7.4 6.0 - 8.3 [facility] G/DL Albumin 4.4 3.5 - 4.9 [facility] G/DL Globulin 3.0 2.2 - 4.2 [facility] Calculated G/DL A/G Ratio 1.5 0.8 - 2.0 [facility] Bilirubin Total 0.7 0.2 - 1.5 [facility] MG/DL Alkaline 102 20 - 125 [facility] Phosphatase U/L AST 21 2 - 50 U/L [facility] ALT 24 2 - 60 U/L [facility] Carbon Dioxide 27 21 - 33 [facility] MMOL/L Specimen (Source) Anatomical Location Collection Method / Collectio n Time Received Time / Laterality Volume 08/13/2003 Dillan Fajardo MD LABORATORY Performing Organization Address City/State/ZIP Code Phon e Number [place] (ABNORMAL) A.M.A. LIPID PANEL (08/14/2003 5:28 AM CDT) [facility] gist Method Time Signature Comments DNR [facility] Triglycerides 245 (H) <150 MG/DL [facility] Cholesterol 142 <200 MG/DL [facility] Cholesterol 2 PERCENTILE [facility] Percentile HDL Cholesterol 38 (L) >39 MG/DL [facility] LDL Cholesterol 55 <130 MG/DL [facility] Calculated Cholesterol/HDL 3.7 <5.0 [facility] Ratio Specimen (Source) Anatomical Location Collection Method / Collectio n Time Received Time / Laterality Volume 08/13/2003 Dillan Fajardo MD LABORATORY Performing Organization Address City/[facility]/ZIP Code Phon e Number [place] X-RAY [...] leg documented in this encounter Care Teams Salad Counter Attendant Relationship Specialty Start Date End Date Nasir Velazquez MD PCP - General 02/18/99 10/06/13 [id number] [place] [address] documented as of this encounter
--- OUTSIDE RECORDS SUMMARY | 2021-11-07 15:47 | XMS_ITS | Encounter Summary ---
:1945 Author Organization [place] Address [address] [place] [address]. [place] [address] Care Team Providers Name Role Phone Nasir Velazquez MD Primary Care Provider [phone] Reason for Visit Reason Onset Date Comments Refill Request 08/21/2003 Encounter Details Date Type Department Care Team Description 08/21/2003 Refill [facility] Dillan Fajardo MD Refill Request Physicians XXX RETIRED XXX [address] [address] [address] [address] [address] [place] [address] [place] [address] [phone] Social History Tobacco Use Types Packs/Day Years Used Date Former Smoker Quit: 02/05/18 85 Alcohol Use Standard Drinks/Week Comments Yes 1.7 (1 standard drink = 0.6 oz pure alco hol) Sex Assigned at Date Recorded Male 01/15/2018 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 documented as of this encounter Miscellaneous Notes Telephone Encounter - 08/21/2003 3:46 PM CDT >> JMI MELGAR Fri Aug 21, 2003 3:47 PM Pt called with the following: He called pharm and the Rx for Lipitor did not go thru, please refax to [facility] documented in this encounter Plan of Treatment Not on filedocumented as of this encounter Visit Diagnoses Diagnosis MIXED HYPERLIPIDEMIA Mixed hyperlipidemia documented in this encounter Care Teams Electronic Lab Technician Relationship Specialty Start Date End Date Nasir Velazquez MD PCP - General 02/18/99 10/06/13 [facility] [address] [place] [address] documented as of this encounter
--- OUTSIDE RECORDS SUMMARY | 2021-11-07 15:47 | XMS_ITS | Encounter Summary ---
:1945 Author Organization [place] Address [facility] [address] Care Team Providers Name Role Phone Nasir Nicole MD Primary Care Provider [phone] Reason for Referral - Closed Specialty Diagnoses / Procedures Referred By Contact Refer red To Contact Dermatology Diagnoses [place] [address] [place], [place] [address] Referral ID Status Reason Start Date Expiration Date Visits Requ ested Visits Authorized [id number] Closed 12/30/2002 02/04/2011 1 1 ING PIN SETTERS INSTALLER - Closed Specialty Diagnoses / Procedures Referred By Contact Refer red To Contact Physical Therapy Diagnoses Cervicalgia Fabricio Nicole MD [id number] [place], [place] [address] Referral ID Status Reason Start Date Expiration Date Visits Requ ested Visits Authorized [id number] Closed 12/30/2002 02/04/2011 1 1 ING PIN SETTERS INSTALLER Reason for Visit Reason Comments Physical Refill Request Referral Encounter Details Date Type Department Care Team Description 12/30/2002 Office Visit [facility] Fabricio Nicole CERVICAL SARAHI (Primary Dx); Physicians MD Bob COUGH; [address] [place] [address] [place] [facility]; [address] ACTINIC KERATOSIS; [place], [place] BENIGN HYP ERTENSION; [phone] MIXED HYPERLIPIDEMIA ; [phone] CHEST PAIN NOS; (Work) SCREENING MAL NEOP-PROSTATE Social History Tobacco Use Types Packs/Day Years Used Date Former Smoker Quit: 02/05/18 85 Alcohol Use Standard Drinks/Week Comments Yes 1.7 (1 standard drink = 0.6 oz pure alco hol) Sex Assigned at Date Recorded Male 01/15/2018 11:39 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 documented as of this encounter Last Filed Vital Signs Vital Sign Reading Time Taken Comments Blood Pressure 140/82 12/30/2002 9:00 AM BOWLING PIN SETTERS INSTALLER Pulse 60 12/30/2002 9:00 AM BOWLING PIN SETTERS INSTALLER Temperature 36.2 ??C (97.1 ??F) 12/30/2002 9:00 AM BOWLING PIN SETTERS INSTALLER Respiratory Rate 18 12/30/2002 9:00 AM BOWLING PIN SETTERS INSTALLER Oxygen Saturation - - Inhaled Oxygen Concentration - - Weight 86.6 kg (191 lb) 12/30/2002 9:00 AM BOWLING PIN SETTERS INSTALLER Height 180.3 cm (5' 11) 12/30/2002 9:00 AM BOWLING PIN SETTERS INSTALLER Body Mass Index 26.64 12/30/2002 9:00 AM BOWLING PIN SETTERS INSTALLER documented in this encounter Progress Notes 12/30/2002 9:00 AM BOWLING PIN SETTERS INSTALLER In for a number of concerns & [...] Medium [2] Comment: should be seen by split leather mosser yearly per plastic surgeon ALLERGIC RHINITIS NOS[477.9] Comment: mites MIXED HYPERLIPIDEMIA[272.2] HYPERTROPHY (BENIGN) PROSTATE[600.0] ESOPHAGEAL REFLUX[530.81] Comment: Hx of ulcer BUNION[727.1] Date Noted: 09/26/2000 FLATUL/ERUCTAT/GAS PAIN[787.3] Date Noted: 03/25/2002 TRIGGER FINGER[727.03] Date Noted: 08/11/2002 Review of patient's family history indicates: Diabetes Maternal Grandmother Stroke Maternal Grandmother Comment: in old age C.A.D. Maternal Uncle Comment: [place] Colon CA Maternal Uncle Prostatic CA Paternal [...] cough with phlegm. Pt would also like split leather mosser. Sharp pain in rib cage last week. Questioned patient about current smoking habits. Pt. quit smoking some time ago. documented in this encounter Plan of Treatment Not on filedocumented as of this encounter Procedures Procedure Name Priority Date/Time Associated Diagnosis Comme nts PHYSICAL THERAPY Routine 03/25/2003 12:04 Cervicalgia REFERRAL 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 ADULT DERMATOLOGY Routine 03/17/2003 Actinic Keratosis REFERRAL HC CHEST TWO VIEWS, Routine 01/02/2003 11:45 Cough Resu lts for this FRONT/LAT AM BOWLING PIN SETTERS INSTALLER procedure are i n the results section. HCL PSA, DIAGNOSTIC Routine 12/31/2002 5:11 Screening Mal Resu lts for this (TUMOR MARKER) AM BOWLING PIN SETTERS INSTALLER Neop-Prostate procedure ar e in the results section. HCL COMPREHENSIVE Routine 12/31/2002 5:09 Routine Medica l Exam Results for this METABOLIC PANEL AM BOWLING PIN SETTERS INSTALLER Benign Hypertension proce dure are in the results section. HCL LIPID PANEL Routine 12/31/2002 5:09 MIXED HYPERLIPIDEMIA R esults for this AM BOWLING PIN SETTERS INSTALLER procedure are i n the results section. ZZCL AFF HEMOGLOBIN Routine 12/30/2002 9:46 Routine Medical Ex am Results for this AM BOWLING PIN SETTERS INSTALLER procedure are i n the results section. ZZC Routine 12/30/2002 9:41 Routine Medical Exam ELECTROCARDIOGRAM, AM BOWLING PIN SETTERS INSTALLER Benign Hypertension COMP W/READ HC VENOUS COLLECTION Routine 12/30/2002 9:36 Routine Med ical Exam AM BOWLING PIN SETTERS INSTALLER Benign Hypertens ion MIXED HYPERLIPIDEMIA HC SPIROMETRY, BREATH Routine 12/30/2002 Cough CAPACITY documented in this encounter Results CONSULT TO PHYSICAL THERAPY (03/25/2003 12:04 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) Narrative This result has an attachment that is no t available. Fabricio Nicole MD REFERRAL CONSULT TO DERMATOLOGY (03/17/2003) Narrative This result has an attachment that is no t available. Fabricio Nicole MD REFERRAL CHEST X-RAY 2 VW (01/02/2003 11:45 AM BOWLING PIN SETTERS INSTALLER) Anatomical Region Laterality Modality Other Narrative 01/02/2003 11:45 AM BOWLING PIN SETTERS INSTALLER REPORT OF OUTSIDE FILMS FROM: [facility] Patient: ??LO NEUMANN ?? Case No: ?? Birthdate: [birth year] Referring Physician: DR. FABRICIO NICOLE Exam Date: 12/30/02 Exam: TWO VIEW CHEST CLINICAL DATA: ??Cough. FINDINGS: ??Negative and unchanged from 06/28/00. ?? Andrew Dyson M.D. TOMY/ian D/T: ??12/30/02 Fabricio Nicole MD GENERAL IMAGING PSA, DIAGNOSTIC (12/31/2002 5:11 AM BOWLING PIN SETTERS INSTALLER) athologist Signature [place] PSA 0.4 <0R=4.0 [facility] NG/ML Comment: PSA VALUES FROM DIFFERENT ASSAY METHODS CANNOT BE USED INTERCHANGEABLY. THIS ASSAY WAS PER FORMED USING THE [employer] CHEMILUMINESCENT METHOD. Specimen (Source) Anatomical Location Collection Method / Collectio n Time Received Time / Laterality Volume 12/30/2002 Fabricio Nicole MD LABORATORY Performing Organization Address City/State/ZIP Code Phon e Number [place] [place] (ABNORMAL) A.M.A. LIPID PANEL (12/31/2002 5:09 AM BOWLING PIN SETTERS INSTALLER) [facility] Method Time Signature Comments DNR [facility] Triglycerides 298 (H) <150 MG/DL [facility] Cholesterol 222 (H) <200 MG/DL [facility] Cholesterol 52 PERCENTILE [facility] Percentile HDL Cholesterol 37 (L) >39 MG/DL [facility] LDL Cholesterol 125 <130 MG/DL [facility] Calculated Comment: LDL CHOLESTEROL (MG/DL) GOALS [...] ?DRUG OPTIONAL) Cholesterol/HDL Ratio 6.0 (H) <5.0 [facility] Specimen (Source) Anatomical Location Collection Method / Collectio n Time Received Time / Laterality Volume 12/30/2002 Fabricio Nicole MD LABORATORY Performing Organization Address City/State/ZIP Code Phon e Number [facility] A.M.A. COMPREHENSIVE MET.PANEL (12/31/2002 5:09 AM BOWLING PIN SETTERS INSTALLER) athologist Signature Comments DNR [facility] Glucose 93 65 - 109 [facility] MG/DL Sodium 141 135 - 146 [facility] MMOL/L Potassium 5.1 3.5 - 5.3 [facility] MMOL/L Chloride 106 98 - 110 [facility] MMOL/L Urea Nitrogen 14 7 - 25 [facility] MG/DL Creatinine 1.1 0.5 - 1.4 [facility] MG/DL BUN/Creatinine 13 6 - 25 [facility] Ratio Calcium 9.5 8.5 - 10.4 [facility] MG/DL Protein Total 7.4 6.0 - 8.3 [facility] G/DL Albumin 4.4 3.5 - 4.9 [facility] G/DL Globulin 3.0 2.2 - 4.2 [facility] Calculated G/DL A/G Ratio 1.5 0.8 - 2.0 [facility] Bilirubin Total 0.9 0.2 - 1.5 [facility] MG/DL Alkaline 101 20 - 125 [facility] Phosphatase U/L AST 25 2 - 50 U/L [facility] ALT 30 2 - 60 U/L [facility] Carbon Dioxide 26 21 - 33 [facility] MMOL/L Specimen (Source) Anatomical Location Collection Method / Collectio n Time Received Time / Laterality Volume 12/30/2002 Fabricio Nicole MD LABORATORY Performing Organization Address City/State/ZIP Code Phon e Number [facility] (ABNORMAL) HEMOGLOBIN (12/30/2002 9:46 AM BOWLING PIN SETTERS INSTALLER) athologist Signature Hemoglobin 13.4 (A) 14 - 18 [facility] GM/DL Narrative [facility] - 12/30/2002 9:46 AM BOWLING PIN SETTERS INSTALLER reran x2 Fabricio Nicole MD LABORATORY Performing Organization Address City/State/ZIP Code Phon e Number [facility] INTERNAL ELECTROCARDIOGRAM, COMP W/READ (12/30/2002 9:41 AM BOWLING PIN SETTERS INSTALLER) Specimen (Source) Anatomical Collection Method Collection Time Re ceived Time Location / / Volume Laterality 12/30/2002 9:41 AM BOWLING PIN SETTERS INSTALLER Narrative This result has an attachment that is no t available. Fabricio Nicole MD EKG TECHNICAL Performing Organization Address City/[facility]/ZIP Code Phon e Number [facility] BREATHING [...] documented in this encounter Care Teams Lining Cleaner Relationship Specialty Start Date End Date Nasir Nicole MD PCP - General 02/18/99 10/06/13 [facility] [address] [place] [address] documented as of this encounter
--- OUTSIDE RECORDS SUMMARY | 2021-11-07 15:47 | XMS_ITS | Encounter Summary ---
:1945 Author Organization [place] Address [address] [facility] [place] [address] Care Team Providers Name Role Phone Nasir Nicole MD Primary Care Provider [phone] Reason for Visit Reason Comments Refill Request doxazosin mesyl 4 mg Encounter Details Date Type Department Care Team Description 01/06/2003 Refill [facility] Fabricio Nicole, Re fill Request Physicians (doxazosin mesyl 4 mg) [address] [id number] [facility] [address] [place] [address] [place], [place] [phone] (Wo rk) [address] [phone] Social History Tobacco Use Types Packs/Day Years Used Date Former Smoker Quit: 02/05/18 85 Alcohol Use Standard Drinks/Week Comments Yes 1.7 (1 standard drink = 0.6 oz pure alco hol) Sex Assigned at Date Recorded Male 01/15/2018 11:[address] REPORTER documented as of this encounter Miscellaneous Notes Telephone Encounter - 01/06/2003 11:[address] REPORTER >> FABRICIO NICOLE [place] Feb 10, 2003 8:02 AM His Lipitor (not requested by phone) is being refilled as a hard copy to send him for [facility] refill. >> FABRICIO NICOLE Jenn Jan 08, 2003 11:33 AM This is a duplicate. Doxazosin is generic Cardura, and prescription is already good for a year in [facility].Did not have to be reordered. >> JIM Zuñiga Jan 06, 2003 8:45 AM >> CALL RECEIVED. Contact: ez rx in your bin for ok. documented in this encounter Plan of Treatment Not on filedocumented as of this encounter Visit Diagnoses Diagnosis Essential hypertension, benign - Primary documented in this encounter Care Teams Tung Nut Grower Relationship Specialty Start Date End Date Nasir Nicole MD PCP - General 02/18/99 10/06/[address] [address] documented as of this encounter
--- OUTSIDE RECORDS SUMMARY | 2021-11-07 15:47 | XMS_ITS | Encounter Summary ---
:1945 Author Organization [place] Address [facility] [place] [address] Care Team Providers Name Role Phone Nasir Velazquez MD Primary Care Provider [phone] Reason for Visit Reason Onset Date Comments Pain 08/17/2003 Knee Encounter Details Date Type Department Care Team Description 08/17/2003 Telephone [facility] Sharath Nam MD Pain (Knee) Physicians XXX RETIRED XXX [address] [place] [address] [address] [address] [address] [place] [address] [place] [address] [phone] Social History Tobacco Use Types Packs/Day Years Used Date Former Smoker Quit: 02/05/18 85 Alcohol Use Standard Drinks/Week Comments Yes 1.7 (1 standard drink = 0.6 oz pure alco hol) Sex Assigned at Date Recorded Male 01/15/2018 11:39 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
--- OUTSIDE RECORDS SUMMARY | 2021-11-07 15:47 | XMS_ITS | Encounter Summary ---
:1945 Author Organization [place] Address [facility] [place] [address] Care Team Providers Name Role Phone Nasir Velazquez MD Primary Care Provider [phone] Reason for Visit Reason Comments URI Encounter Details Date Type Department Care Team Description 06/09/2003 Office Visit [facility] DawitTony black ACUTE MAXILLARY SINUSITIS (Primary Dx); Physicians MD Martine BENIGN HYPERTENSION; [address] MIXED HYPERLIPIDEMIA [address] [place] [address] Social History Tobacco Use Types Packs/Day Years Used Date Former Smoker Quit: 02/05/18 85 Alcohol Use Standard Drinks/Week Comments Yes 1.7 (1 standard drink = 0.6 oz pure alco hol) Sex Assigned at Date Recorded Male 01/15/2018 11:39 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
--- OUTSIDE RECORDS SUMMARY | 2021-11-07 15:47 | XMS_ITS | Encounter Summary ---
:1945 Author Organization [place] Address [address] [facility] 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 documented as of this encounter Last Filed Vital Signs Vital Sign Reading Time Taken Comments Blood Pressure 122/70 03/07/2003 10:00 AM IT SYSTEMS ANALYST CONSULTANT Pulse - - Temperature - - Respiratory Rate - - Oxygen Saturation - - Inhaled Oxygen Concentration - - Weight - - Height - - Body Mass Index - - documented in this encounter Plan of Treatment Not on filedocumented as of this encounter Visit Diagnoses Diagnosis Essential hypertension, benign - Primary documented in this encounter Care Teams Early Childhood Associate Teacher Relationship Specialty Start Date End Date Nasir Velazquez MD PCP - General 02/18/99 10/06/13 [facility] [address] [place] [address] documented as of this encounter
--- OUTSIDE RECORDS SUMMARY | 2021-11-07 15:47 | XMS_ITS | Encounter Summary ---
:1945 Author Organization [place] Address [address] [facility] [place] [address] Care Team Providers Name Role Phone Nasir Nicole MD Primary Care Provider Reason for Visit Reason Comments Refill Request Encounter Details Date Type Department Care Team Description 08/02/2001 Refill [facility] Fabricio Nicole MD Refill Request Physicians [id number] [facility] [address] [address] [address] [place] [address] [phone] Social History Tobacco Use Types Packs/Day Years Used Date Former Smoker Quit: 02/05/18 85 Alcohol Use Standard Drinks/Week Comments Yes 1.7 (1 standard drink = 0.6 oz pure alco hol) Sex Assigned at Date Recorded 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
--- OUTSIDE RECORDS SUMMARY | 2021-11-07 15:47 | XMS_ITS | Encounter Summary ---
:1945 Author Organization [place] Address [address] [facility] [place] [address] Care Team Providers Name Role Phone Nasir Velazquez MD Primary Care Provider [phone] Encounter Details Date Type Department Care Team Description 11/11/[address] 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 HECTOR MALDONADO MD MT: lisha Document: ??[id number] [place], [place] Name: LO NEUMANN ENDOSCOPY REPORT Page 2 of 1 LCN: ENDO DSC: 11/11/2002 [place], [place] Name: LO NEUMANN MR#: : Procedure Date: [id number] 1945 11/11/2002 Doctor: HECTOR MALDONADO MD ENDOSCOPY REPORT Page 1 of 1 Nasir Velazquez MD PROCEDURES SURGICAL PATHOLOGY (11/11/2002) Specimen (Source) Anatomical Location Collection Method / Collectio n Time Received Time / Laterality Volume 11/11/2002 Impressions MISYS - 11/11/2002 CASE: [id number] MR#: [id number] Patient Name: LO NEUMANN. Collected: 11/11/02 Received: 11/12/02 Reported: 11/13/02 10:00 Ordering Phy(s): HECTOR MALDONADO SPECIMEN(S): Rectal polyp FINAL DIAGNOSIS: Tubular [...] Primary documented in this encounter Care Teams Anti Tank Missileman Relationship Specialty Start Date End Date Nasir Velazquez MD PCP - General 02/18/99 10/06/13 [address] [place] [address] documented as of this encounter
--- OUTSIDE RECORDS SUMMARY | 2021-11-07 15:48 | XMS_ITS | Encounter Summary ---
:1945 Author Organization [place] Address [facility] 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 informed of message. - Estelle Messer [...] filedocumented in this encounter Care Teams Manager Media Relations Relationship Specialty Start Date End Date Nasir Velazquez MD PCP - General 02/18/99 10/06/13 [facility] [address] [place] [address] documented as of this encounter
--- OUTSIDE RECORDS SUMMARY | 2021-11-07 15:48 | XMS_ITS | Encounter Summary ---
:1945 Author Organization [place] Address [address] [facility] 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
--- OUTSIDE RECORDS SUMMARY | 2021-11-07 15:48 | XMS_ITS | Encounter Summary ---
:1945 Author Organization [place] Address [address] [facility] [place] [address] Care Team Providers Name Role Phone Unavailable Primary Care Provider Unavailable Reason for Visit Reason Comments Derm Problem check lesions on face Encounter Details Date Type Department Care Team Description 09/07/1998 Office Visit [facility] Diogo Velazquez AC TINIC KERATOSIS; Physicians SEBACEOUS CYST [address] [address] [facility] [address] [place] [address] [phone] Social History Tobacco Use Types Packs/Day Years Used Date Former Smoker Quit: 02/05/18 85 Alcohol Use Standard Drinks/Week Comments Yes 1.7 (1 standard drink = 0.6 oz pure alco hol) Sex Assigned at Date Recorded 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
--- OUTSIDE RECORDS SUMMARY | 2021-11-07 15:48 | XMS_ITS | Encounter Summary ---
:1945 Author Organization [place] Address [facility] [place] [address] Care Team Providers Name Role Phone Unavailable Primary Care Provider Unavailable Reason for Visit Reason Comments Allergies Claritin refill; discuss gaye g-term effects; Lab results discuss lab results 03/24/98 Derm Problem check lesion L forearm x 1 w k; Encounter Details Date Type Department Care Team Description 04/13/1998 Office Visit [facility] Diogo Velazquez ALLERGIC RHINITIS NOS Physicians MD Bob [address] [place] [address] [phone] (Wo rk) Social History Tobacco Use Types Packs/Day Years Used Date Former Smoker Quit: 02/05/18 85 Alcohol Use Standard Drinks/Week Comments Yes 1.7 (1 standard drink = 0.6 oz pure alco hol) Sex Assigned at Date Recorded 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
--- OUTSIDE RECORDS SUMMARY | 2021-11-07 15:48 | XMS_ITS | Encounter Summary ---
:1945 Author Organization [place] Address [address] [facility] [place] [address] Care Team Providers Name Role Phone Nasir Velazquez MD Primary Care Provider [phone] Reason for Referral - Closed Specialty Diagnoses / Procedures Referred By Contact Refer red To Contact Dermatology Diagnoses Actinic keratosis Diogo Velazquez [place] 184165 [place], [place] [address] Referral ID Status Reason Start Date Expiration Date Visits Requ ested Visits Authorized [id number] Closed 10/06/1999 02/04/2011 1 1 - Closed Specialty Diagnoses / Procedures Referred By Contact Refer red To Contact Radiology Diagnoses Hematuria Abdominal pain, right lower quadrant Abdominal pain, other specified site Diogo Velazquez MD [id number] [place], [place] [address] Referral ID Status Reason Start Date Expiration Date Visits Requ ested Visits Authorized [id number] Closed 10/06/1999 02/04/2011 1 1 Reason for Visit Reason Comments Abdominal Pain c/o pain in stomache area no brayden in in testicle area x 6 months sx more Encounter Details Date Type Department Care Team Description 10/06/1999 Office Visit [place] Diogo Arnold ABDOMINA L PAIN RLQ; Physicians MD Bob Pain in groin; [address] 124967 [place] MIXED HYPERLIPIDEMIA; [address] [place]; [place], [place] [address] [phone] (Wo rk) Social History Tobacco Use Types Packs/Day Years Used Date Former Smoker Quit: 02/05/18 85 Alcohol Use Standard Drinks/Week Comments Yes 1.7 (1 standard drink = 0.6 oz pure alco hol) Sex Assigned at Date Recorded Male 01/15/2018 11:39 PM [employer]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 this is set up. We [...] following: IVP Date: 10-07-99 Time: 8:00am Place: [facility] >> GUS JOHNSON 10/06/1999 9:33 am Questioned patient about current smoking habits. Pt. quit smoking some time ago. documented in this encounter Plan of Treatment Not on filedocumented as of this encounter Procedures Procedure Name Priority Date/Time Associated Comments Diagnosis ADULT DERMATOLOGY Routine 11/03/1999 Actinic Keratosis REFERRAL [facility] PSA, DIAGNOSTIC Routine 10/07/1999 7:07 [...] Signature Sanches PSA 0.3 0.0 - 4.0 [facility] NG/ML Specimen (Source) Anatomical Location Collection Method / Collectio n Time Received Time / Laterality Volume 10/06/1999 Narrative [facility] - 10/07/1999 7:07 AM CDT PSA RESULTS [...] 6:34 AM CDT) athologist Signature Comments DNR [facility] Glucose 98 65 - 109 [facility] MG/DL Sodium 141 133 - 145 [facility] MMOL/L Potassium 4.6 3.4 - 5.1 [facility] MMOL/L Chloride 106 96 - 108 [facility] MMOL/L Urea Nitrogen 13 9 - 24 [facility] MG/DL Creatinine 1.2 0.8 - 1.4 [facility] MG/DL BUN/Creatinine 10.8 [facility] Ratio Calcium 9.2 8.4 - 10.3 [facility] MG/DL Protein Total 6.7 6.2 - 8.2 [facility] GM/DL Albumin 4.2 3.7 - 5.2 [facility] GM/DL Globulin 2.5 1.9 - 3.6 [facility] Calculated GM/DL A/G Ratio 1.7 1.1 - 2.3 [facility] Bilirubin Total 0.34 0.30 - [facility] 1.40 MG/DL Alkaline 98 42 - 137 [facility] Phosphatase U/L AST 22 1 - 45 [facility] IU/L ALT 23 1 - 60 [facility] IU/L Carbon Dioxide 27.8 21.7 - [facility] 30.9 MMOL/L Specimen (Source) Anatomical Location Collection Method / Collectio n Time Received Time / Laterality Volume 10/06/1999 Diogo Velazquez MD LABORATORY Performing Organization Address City/State/ZIP Code Phon e Number [place] [place] CONSULT TO RADIOLOGY (10/07/1999) Diogo Velazquez MD REFERRAL URINALYSIS (10/06/1999 10:03 AM CDT) [facility] Method Time Signature Color Urine yellow [facility] INTERNAL Appearance Urine clear [facility] INTER[facility] Glucose Urine neg [facility] INTER[facility] Bilirubin Urine neg [facility] INTERNAL Ketones Urine neg [facility] INTERNAL Specific [place] 1.015 [facility] INTER[facility] Blood Urine neg [facility] [...] keratosis documented in this encounter Care Teams Clinical Specialty Rep Relationship Specialty Start Date End Date Nasir Velazquez MD PCP - General 02/18/99 10/06/[address] [address] documented as of this encounter
--- OUTSIDE RECORDS SUMMARY | 2021-11-07 15:48 | XMS_ITS | Encounter Summary ---
:1945 Author Organization [place] Address [address] [place] [address] Care Team Providers Name Role Phone Nasir Velazquez MD Primary Care Provider [phone] Reason for Visit Reason Comments Eye Problem Encounter Details Date Type Department Care Team Description 09/16/1999 Office Visit [facility] Diogo Velazquez CORNEAL FOREIGN BODY Physicians MD Bob (Primary Dx) [address] [place] [address] [phone] (Wo rk) Social History Tobacco Use Types Packs/Day Years Used Date Former Smoker Quit: 02/05/18 85 Alcohol Use Standard Drinks/Week Comments Yes 1.7 (1 standard drink = 0.6 oz pure alco hol) Sex Assigned at Date Recorded Male 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
--- OUTSIDE RECORDS SUMMARY | 2021-11-07 15:48 | XMS_ITS | Encounter Summary ---
:1945 Author Organization [place] Address [address] [facility] [place] [address] Care Team Providers Name Role Phone Nasir Nicole MD Primary Care Provider [phone] Reason for Visit Reason Comments Cough recheck, not bettter Ulcer bacteria test? 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 OBI DAVIS M.D. Certified - [place] [employer] Accredited for Mammography - [employer] MJG/rb dt: ??07/03/00 [...] reflux documented in this encounter Care Teams Spool Tender Relationship Specialty Start Date End Date Nasir Nicole MD PCP - General 02/18/99 10/06/13 [place] [address] [address] [place] [address] documented as of this encounter
--- OUTSIDE RECORDS SUMMARY | 2021-11-07 15:48 | XMS_ITS | Encounter Summary ---
:1945 Author Organization [place] Address [address] [facility] [place] [address] Care Team Providers Name Role Phone Nasir Velazquez MD Primary Care Provider [phone] Reason for Referral - Closed Specialty Diagnoses / Procedures Referred By Contact Refer red To Contact Urology Diagnoses Hematuria Abdominal pain, right lower quadrant Diogo Velazquez MD Fallen, Marlon Castro MD [id number] [facility] UROLOGY PA [place], [place] [address] [address] [place], [place] [address] Phone: Fax: Referral ID Status Reason Start Date Expiration Date Visits Requ ested Visits Authorized [id number] Closed 10/14/1999 02/04/2011 1 1 Reason for Visit Reason Comments Lipids Results Encounter Details Date Type Department Care Team Description 10/14/1999 Office Visit Diogo Mujica MIXED HY PERLIPIDEMIA; Physicians MD Bob ABDOMINAL PAIN RLQ; [address] [address] [place] [address] [place] [address] [phone] (Wo rk) Social History Tobacco Use Types Packs/Day Years Used Date Former Smoker Quit: 02/05/18 85 Alcohol Use Standard Drinks/Week Comments Yes 1.7 (1 standard drink = 0.6 oz pure alco hol) Sex Assigned at Date Recorded Male 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 LIPID PANEL (10/14/1999 10:30 AM CDT) [facility] Method Time Signature Comments DNR [facility] Triglycerides 220 (H) 40 - 199 MG/DL [facility] [place] Cholesterol 184 120 - 199 [facility] MG/DL [place] Cholesterol 18 PERCENTILE [facility] Percentile [place] HDL Cholesterol 40.0 35ORHIGHER [facility] MG/DL [place] LDL Cholesterol 100 75 - 129 MG/DL [facility] Calculated [place] Comment: * CUTOFF VALUES RECOMMENDED BY THE [facility] CHOLESTEROL EDUCATION PROGRAM: ?LIPID ? DESIRAB LE [...] Hematuria documented in this encounter Care Teams Irrigation Installation Specialist Relationship Specialty Start Date End Date Nasir Velazquez MD PCP - General 02/18/99 10/06/13 [facility] [address] [place] [address] documented as of this encounter
--- OUTSIDE RECORDS SUMMARY | 2021-11-07 15:48 | XMS_ITS | Encounter Summary ---
:1945 Author Organization [place] Address [facility] [place] [address] Care Team Providers Name Role Phone Nasir Velazquez MD Primary Care Provider [phone] Reason for Visit Reason Comments Pt. Information/instruction Encounter Details Date Type Department Care Team Description 02/13/2000 Telephone [facility] Estelle Messer LP N Pt. 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 Dillan Fajardo Started and [...] OR NURSE. HAS A QUESTION. PHONE IS [phone]. THANKS! - Estelle Messer Started and completed on SunFeb 13, 2000 5:04 PM documented in this encounter Plan of Treatment Not on filedocumented as of this encounter Visit Diagnoses Not on filedocumented in this encounter Care Teams Bean Roaster Relationship Specialty Start Date End Date Nasir Velazquez MD PCP - General 02/18/99 10/06/[address] [address] documented as of this encounter
--- OUTSIDE RECORDS SUMMARY | 2021-11-07 15:48 | XMS_ITS | Encounter Summary ---
:1945 Author Organization [place] Address [address] [facility] 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 Diogo Velazquez MD Fallen, Marlon Castro MD [id number] [facility] UROLOGY PA [place], [place] [address] 5761 [address] NIRANJANIRA [facility] [address] [place], [place] [address] Phone: Fax: Referral ID Status Reason Start Date Expiration Date Visits Requ ested Visits Authorized [id number] Closed 12/26/1999 02/04/2011 1 1 ICATIONS INTERN - Closed Specialty Diagnoses / Procedures Referred By Contact Refer red To Contact Orthopedics Diagnoses Pain in joint, pelvic region and thigh Diogo Velazquez MD Simonet, Lux Rg MD 458650 [facility] ORTHOPEDICS [place], [place] [address] [place] [address] Phone: Fax: Referral ID Status Reason Start Date Expiration Date Visits Requ ested Visits Authorized [id number] Closed 12/26/1999 02/04/2011 1 1 ICATIONS INTERN Reason for Visit Reason Comments RECHECK Pain Encounter Details Date Type Department Care Team Description 12/26/1999 Office Visit Diogo Mujica JOINT PA IN-PELVIS (Primary Dx); Physicians MD Bob Pain in scrotum [address] [place] [address] [phone] (Wo rk) Social History Tobacco Use Types Packs/Day Years Used Date Former Smoker Quit: 02/05/18 85 Alcohol Use Standard Drinks/Week Comments Yes 1.7 (1 standard drink = 0.6 oz pure alco hol) Sex Assigned at Date Recorded Male 01/15/2018 11:39 PM APPLICATIONS INTERN documented as of this encounter Last Filed Vital Signs Vital Sign Reading Time Taken Comments Blood Pressure 132/74 12/26/1999 11:45 AM APPLICATIONS INTERN Pulse - - Temperature 37.3 ??C (99.2 ??F) 12/26/1999 11:45 AM APPLICATIONS INTERN Respiratory Rate - - Oxygen Saturation - - Inhaled Oxygen Concentration - - Weight 79.8 kg (176 lb) 12/26/1999 11:45 AM APPLICATIONS INTERN Height - - Body Mass Index 25.25 09/16/1999 10:45 AM CDT documented in this encounter Progress Notes 12/26/1999 11:45 AM APPLICATIONS INTERN Just finishing his buildup up Cardura, which [...] ans documented in this encounter Care Teams Insulation Inspector Relationship Specialty Start Date End Date Nasir Velazquez MD PCP - General 02/18/99 10/06/13 [facility] [address] [place] [address] documented as of this encounter
--- OUTSIDE RECORDS SUMMARY | 2021-11-07 15:48 | XMS_ITS | Encounter Summary ---
:1945 Author Organization [place] Address [address] [facility] [place] [address] Care Team Providers Name Role Phone Nasir Velazquez MD Primary Care Provider [phone] Reason for Visit Reason Comments Cough c/o clear phlegmy cough x 9 days. No fever. 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
--- OUTSIDE RECORDS SUMMARY | 2021-11-07 15:48 | XMS_ITS | Encounter Summary ---
:1945 Author Organization [place] Address [facility] [place] [address] Care Team Providers Name Role Phone Nasir Nicole MD Primary Care Provider [phone] Reason for Visit Reason Comments Refill Request Claritin pharm [phone] Encounter Details Date Type Department Care Team Description 04/28/1999 Telephone [facility] Estelle Messer LP N Refill Request (Claritin Physicians [phone] pharm [phone]) [address] [place] [address] (Work) [address] [place] [address] Social History Tobacco Use Types Packs/Day Years Used Date Former Smoker Quit: 02/05/18 85 Alcohol Use Standard Drinks/Week Comments Yes 1.7 (1 standard drink = 0.6 oz pure alco hol) Sex Assigned at Date Recorded Male 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 Contact: Please clarify order. Ria in [facility] has 11 refills, but start and end dates are 04/14/99. - Estelle Messer Started and completed on SunApr 28, 1999 3:24 PM documented in this encounter Plan of Treatment Not on filedocumented as of this encounter Visit Diagnoses Not on filedocumented in this encounter Care Teams Bank Representative Relationship Specialty Start Date End Date Nasir Nicole MD PCP - General 02/18/99 10/06/13 [place] [address] [place] [address] documented as of this encounter
--- OUTSIDE RECORDS SUMMARY | 2021-11-07 15:48 | XMS_ITS | Encounter Summary ---
:1945 Author Organization [place] Address [facility] [place] [address] Care Team Providers Name Role Phone Nasir Velazquez MD Primary Care Provider [phone] Reason for Visit Reason Comments Pain c/o lower back pain / starte d yesterday carry salt bag quick movement Encounter Details Date Type Department Care Team Description 06/21/[address] 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
--- OUTSIDE RECORDS SUMMARY | 2021-11-07 15:48 | XMS_ITS | Encounter Summary ---
:1945 Author Organization [place] Address [address] [place] [address] Care Team Providers Name Role Phone Nasir Nicole MD Primary Care Provider [phone] Reason for Referral - Closed Specialty Diagnoses / Procedures Referred By Contact Refer red To Contact ENT-Otolaryngology Diagnoses Chronic frontal sinusitis Fabricio Nicole MD [id number] [place], [place] [address] Referral ID Status Reason Start Date Expiration Date Visits Requ ested Visits Authorized [id number] Closed 03/29/2000 02/04/2011 1 1 UP ASSEMBLER Reason for Visit Reason Comments Sinus Problem Encounter Details Date Type Department Care Team Description 03/29/2000 Office Visit [facility] Fabricio Nicole [facility] SINUSITIS Physicians MD Bob (Primary Dx) [address] [address] [address] [address] [phone] (Wo rk) Social History Tobacco Use Types Packs/Day Years Used Date Former Smoker Quit: 02/05/18 85 Alcohol Use Standard Drinks/Week Comments Yes 1.7 (1 standard drink = 0.6 oz pure alco hol) Sex Assigned at Date Recorded Male 01/15/2018 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 documented as of this encounter Last Filed Vital Signs Vital Sign Reading Time Taken Comments Blood Pressure 144/92 03/29/2000 4:45 PM MOCK UP ASSEMBLER Pulse - - Temperature 36.3 ??C (97.4 ??F) 03/29/2000 4:45 PM MOCK UP ASSEMBLER Respiratory Rate - - Oxygen Saturation - - Inhaled Oxygen Concentration - - Weight 80.7 kg (178 lb) 03/29/2000 4:45 PM MOCK UP ASSEMBLER Height - - Body Mass Index 25.54 09/16/1999 10:45 AM CDT documented in this encounter Progress Notes 03/29/2000 4:45 PM MOCK UP ASSEMBLER Pt c/o continued sinus congestion x 6 [...] PLAN: CONSULT TO ENT [[id number]] Order #: [id number] Class: External referral Continue current medications for [...] OTOLARYNGOLOGY Routine 04/18/2000 Chr Frontal Sinusiti s INDUSTRIAL HEALTH AND SAFETY PROFESSOR REFERRAL HC X-RAY SINUSES <3 VIEWS Routine [...] ??Normal sinus. OBI DAVIS M.D. Certified - [place] [employer] Accredited for Mammography - [employer] MJG/rb dt: ??04/03/00 Fabricio Nicole MD GENERAL IMAGING documented in this encounter Visit Diagnoses Diagnosis Chronic frontal sinusitis - Primary documented in this encounter Care Teams Canteen Attendant Relationship Specialty Start Date End Date Nasir Nicole MD PCP - General 02/18/99 10/06/13 [facility] [address] [place] [address] documented as of this encounter
--- OUTSIDE RECORDS SUMMARY | 2021-11-07 15:48 | XMS_ITS | Encounter Summary ---
:1945 Author Organization [place] Address [address] [place] [address] Care Team Providers Name Role Phone Nasir Velazquez MD Primary Care Provider [phone] Reason for Visit Reason Comments Results here to discuss IVP result, update from urology appt. Pain talks about R hip pain x 1mo . 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 [facility] at IVP film. IVP shows good head [...] encounter Results URINALYSIS (11/18/1999 12:14 PM CDT) [facility] Method Time Signature Color Urine lt. yellow [facility] INTERNAL Appearance Urine clear [facility] INTERNAL Glucose Urine neg [facility] INTERNAL Bilirubin Urine neg [facility] INTERNAL Ketones Urine neg BFP INTERNAL Specific [place] 1.020 B[facility] INTERNAL Blood Urine traced-karen BFP [...] / Volume Laterality 11/18/1999 12:14 PM CDT Diogo Velazquez MD LABORATORY Performing Organization Address City/State/ZIP Code Phon e Number BFP INTERNAL documented in this encounter Visit Diagnoses Diagnosis Hyperplasia of prostate - Primary Other orchitis, epididymitis, and epidid ymo-orchitis, without mention of abscess(604.99) Other orchitis, epididymitis, and epidid ymo-orchitis, without mention of abscess Pain in joint, pelvic region and thigh documented in this encounter Care Teams Manager Sign Relationship Specialty Start Date End Date Nasir Velazquez MD PCP - General 02/18/99 10/06/[address] [address] documented as of this encounter
--- OUTSIDE RECORDS SUMMARY | 2021-11-07 15:48 | XMS_ITS | Encounter Summary ---
:1945 Author Organization [place] Address [address] [facility] [place] [address] Care Team Providers Name Role Phone Nasir Velazquez MD Primary Care Provider [phone] Reason for Visit Reason Comments Sinus Problem Ear Problem Encounter Details Date Type Department Care Team Description 02/10/2000 Office Visit [place] Diogo Arnold ALLERGIC RHINITIS NOS; Physicians MD Bob HYPERTROPHY (BENIGN) PROSTATE [address] [facility] [place] [address] [facility] [address] [place] [phone] (Wo rk) Social History Tobacco Use Types Packs/Day Years Used Date Former Smoker Quit: 02/05/18 85 Alcohol Use Standard Drinks/Week Comments Yes 1.7 (1 standard drink = 0.6 oz pure alco hol) Sex Assigned at Date Recorded 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 c/o sinus pressure and congestion. He [...] prostate documented in this encounter Care Teams Emergency Medical Service Manager Relationship Specialty Start Date End Date Nasir Velazquez MD PCP - General 02/18/99 10/06/13 [facility] [address] [place] [address] documented as of this encounter
--- OUTSIDE RECORDS SUMMARY | 2021-11-07 15:48 | XMS_ITS | Encounter Summary ---
:1945 Author Organization [place] Address [address] [facility] [place] [address] Care Team Providers Name Role Phone Nasir Nicole MD Primary Care Provider [phone] Reason for Visit Reason Comments Pt. Information/instruction Derm Problem Encounter Details Date Type Department Care Team Description 09/28/2000 Telephone [facility] Fabricio Nicole, Pt . 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 Pt.stated Lac Hydrin 12% is not OTC. Modules accepted: Progress Notes >> TEZ BLEVINS SunSep 28, 2000 12:10 PM Left message on machine with instruction per pt request. >> ASRAH NICOLE SunSep 28, 2000 10:01 AM >> [...] DO. PLEASE CALL HIM ON AY AT [phone]. THIS IS THE HOME # HE CANNOT BE REACHED AT WORK. PLEASE LEAVE DIRECTION FOR HIM ON THE VOICE MAIL. (RX, O.T.C. ETC.) documented in this encounter Plan of Treatment Not on filedocumented as of this encounter Visit Diagnoses Not on filedocumented in this encounter Care Teams Horticultural Farmer Relationship Specialty Start Date End Date Nasir Nicole MD PCP - General 02/18/99 10/06/13 [facility] [address] [place] [address] documented as of this encounter
--- OUTSIDE RECORDS SUMMARY | 2021-11-07 15:48 | XMS_ITS | Encounter Summary ---
:1945 Author Organization [place] Address [address] [facility] [place] [address] Care Team Providers Name Role Phone Nasir Velazquez MD Primary Care Provider [phone] Reason for Visit Reason Comments Results Encounter Details Date Type Department Care Team Description 10/07/1999 Telephone [facility] Diogo Velazquez MD Results Physicians [id number] [facility] [address], [place] [address] [address] [place] [address] [phone] Social History Tobacco Use Types Packs/Day Years Used Date Former Smoker Quit: 02/05/18 85 Alcohol Use Standard Drinks/Week Comments Yes 1.7 (1 standard drink = 0.6 oz pure alco hol) Sex Assigned at Date Recorded Male 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
--- OUTSIDE RECORDS SUMMARY | 2021-11-07 15:48 | XMS_ITS | Encounter Summary ---
:1945 Author Organization [place] Address [address] [facility] [place] [address] Care Team Providers Name Role Phone Nasir Nicole MD Primary Care Provider [phone] Reason for Visit Reason Comments Refill Request [facility] [phone] Encounter Details Date Type Department Care Team Description 05/08/2000 Refill [facility] Fabricio Nicole, Re fill Request Physicians ([facility] [address] 7[address] [facility] [phone]) [address] [place] [address] [place], [place] [phone] (Wo rk) [address] [phone] Social History Tobacco Use Types Packs/Day Years Used Date Former Smoker Quit: 02/05/18 85 Alcohol Use Standard Drinks/Week Comments Yes 1.7 (1 standard drink = 0.6 oz pure alco hol) Sex Assigned at Date Recorded Male 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 Contact: Jeannette [phone] - Starla Parkinsongael Started and completed on SunMay 08, 2000 8:42 AM documented in this encounter Plan of Treatment Not on filedocumented as of this encounter Visit Diagnoses Not on filedocumented in this encounter Care Teams Glue Specialty Supervisor Relationship Specialty Start Date End Date Nasir Nicole MD PCP - General 02/18/99 10/06/13 [place] [address] [place] [address] documented as of this encounter
--- OUTSIDE RECORDS SUMMARY | 2021-11-07 15:48 | XMS_ITS | Encounter Summary ---
:1945 Author Organization [place] Address [address] [facility] [place] [address] Care Team Providers Name Role Phone Nasir Velazquez MD Primary Care Provider Reason for Referral - Closed Specialty Diagnoses / Procedures Referred By Contact Refer red To Contact Dermatology Diagnoses Actinic keratosis Diogo Velazquez MD George, [place], [place] 844[address] [facility] [place], [place] [address] [address] [facility] [place] [address] Phone: Fax: Referral ID Status Reason Start Date Expiration Date Visits Requ ested Visits Authorized [id number] Closed 09/26/2000 02/04/2011 1 1 Reason for Visit Reason Comments Derm Problem needs referral for f/u skin problem Pain c/o calus on bottom of L yoli t Encounter Details Date Type Department Care Team Description 09/26/2000 Office Visit Diogo Mujica [facility]ERATOS[facility]; Physicians MD Bob [facility]; [address] [place] [id number] [facility] [address] [place] [address] [phone] (Wo rk) Social History Tobacco Use Types Packs/Day Years Used Date Former Smoker Quit: 02/05/18 85 Alcohol Use Standard Drinks/Week Comments Yes 1.7 (1 standard drink = 0.6 oz pure alco hol) Sex Assigned at Date Recorded Male 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
--- OUTSIDE RECORDS SUMMARY | 2021-11-07 15:48 | XMS_ITS | Encounter Summary ---
:1945 Author Organization [place] Address [address] [facility] [place] [address] Care Team Providers Name Role Phone Nasir Velazquez MD Primary Care Provider [phone] Reason for Visit Reason Comments Trauma Encounter Details Date Type Department Care Team Description 03/16/2000 Office Visit [facility] Diogo Velazquez FX DIST PHALANX, HAND-CLOSE; Physicians MD Bob HYPERTROPHY (BENIGN) PROSTATE [address] [facility] [address] [place] [address] [place] [phone] (Wo rk) Social History Tobacco Use Types Packs/Day Years Used Date Former Smoker Quit: 02/05/18 85 Alcohol Use Standard Drinks/Week Comments Yes 1.7 (1 standard drink = 0.6 oz pure alco hol) Sex Assigned at Date Recorded Male 01/15/2018 11:39 PM 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 injured his left middle finger this [...] prostate documented in this encounter Care Teams Public Service Officer Relationship Specialty Start Date End Date Nasir Velazquez MD PCP - General 02/18/99 10/06/13 [place] [id number] [place] [address] documented as of this encounter
[2021-11-07 22:17] LABS: Albumin* 4.3 g/dL (3.3-5.0); Chloride* 106 mmol/L (96-114); Sodium* 138 mmol/L (135-149)
[2021-11-07 22:20] LABS: Alanine Aminotransferase* 50 U/L (4-50); Alkaline Phosphatase* 103 U/L (40-150); Aspartate Amino Transferase* 71 U/L (12-35); Bilirubin Total* 0.4 mg/dL (0.1-1.5); Blood Urea Nitrogen* 14 mg/dL (7-30); Carbon Dioxide* 25 mmol/L (20-32); Creatinine* 1.2 mg/dL (0.5-1.5); Estimated Glomerular Filt Rate 63 ml/min; Glucose* 92 mg/dL (60-115); Total Protein* 6.8 g/dL (6.0-8.3)
[2021-11-07 22:21] LABS: Calcium* 9.2 mg/dL (8.4-10.6)
== END 2021-11-07 15:37 | disposition home or self-care (01) ==
LOC: LKVREF 15:38
PROVIDERS: PCP Internal Medicine; Visit Provider Physician Assistant Medical
DX: K57.92 Diverticulitis of intestine, part unspecified, without perforation or abscess without bleeding (principal)
CPT/HCPCS: 80053

== ENCOUNTER 2021-12-08 09:31 | Outpatient (CLI) | payer MEDICARE, SELFPAY ==
--- OUTSIDE RECORDS SUMMARY | 2021-12-08 09:34 | XMS_ITS | Encounter Summary ---
:1945 Author Organization [place] Address [address] [facility] 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
--- OUTSIDE RECORDS SUMMARY | 2021-12-08 09:34 | XMS_ITS | Encounter Summary ---
:1945 Author Organization [place] Address [address] [facility] [place] [address] Care Team Providers Name Role Phone Raghavendra Deras MD Primary Care Provider Unavailable Raghavendra Deras MD Unavailable Unavailable Reason for Visit Reason Comments Urgent Care Arm Injury Was climbing a tree, slid do wn, scraped up right forearm x 1hr. Encounter Details Date Type Department Care Team Description 09/04/2018 Office Visit [facility] [place] Abrasion of right forearm, initial encounter (Primary Dx); Urgent Care Maru Olvera MD Essential [facility] [address] [facility] [address] [place] [address] [phone] Social History Tobacco Use Types Packs/Day Years Used Date Smoking Tobacco: Former Cigarettes 0.5 20 Quit : 02/06/1984 Smokeless Tobacco: Never Alcohol Use Standard Drinks/Week Comments Yes 1.7 (1 standard drink = 0.6 oz pure alco hol) occasional Sex Assigned at Date Recorded Male 01/15/2018 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
--- OUTSIDE RECORDS SUMMARY | 2021-12-08 09:34 | XMS_ITS | Clinical Summary ---
:1945 Author Organization [place] Address [address] [facility] [place] [address] Care Team Providers Name Role Phone Unavailable Primary Care Provider Unavailable Allergies Active Allergy [...] be differe nt from the original. [email or web address] Problem Noted Date Hyperlipidemia LDL goal <130 01/12/2016 Benign prostatic hyperplasia with lower urinary tract symptoms 10/01/2014 Advanced directives, counseling/discussion 07/08/2010 Overview: Formatting of this note is dif ferent from the original. Advance Directive Problem List Overview: Name Relationship Phone Primary Health Care Agent Karen sher [phone] Alternative Health Care Agent Discussed advance care planning with rafal erick; information given to patient to review. 07/08/2010 07/18/10 Left message for patient to call back to arrange facilitation if desired for completion of Advanced Care Directive. Rosibel Steele LPN/Advanced Healthcare Planning Pharmacovigilance Scientist Advance Care Planning 01/12/2016: ACP Rev iew [...] 80's Diabetes Maternal Grandmother C.A.D. 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 Last Filed Vital Signs Vital Sign Reading Time Taken Comments Blood Pressure 144/82 03/19/2019 9:57 AM BOAT CANVAS MAKER INSTALLER Pulse 74 09/04/2018 8:59 PM CDT Temperature [...] 1945 FIT-DNA (Cologuard) 1945 FLEX SIG 1945 HEPATITIS B IMMUNIZATION 1945 (1 of 3 - 3-dose series) COVID-19 Vaccine (#1) 1945 LUNG CANCER SCREENING 03/20/2009 03/20/2008, 04/11/2007, 01/14/2007, Additional history exists FIT 08/20/2013 08/20/2012 FALL RISK ASSESSMENT 03/19/2019 03/19/2018, 01/09/2018, 01/12/2016, Additional history exists LIPID 03/19/2019 03/19/2018, 01/31/2017, 01/12/2016, Additional history exists MEDICARE ANNUAL WELLNESS 03/19/2019 03/19/2018, 01/31/2017, VISIT 01/12/2016, Additional history exists ADVANCE CARE PLANNING 01/11/2021 [...] 01/18/2016 INFLUENZA VACCINE Discontinued 12/05/2018, 01/01/2018, 09/26/2016 IPV IMMUNIZATION Aged Out No longer eligi ble based on patient 's age to complete this topic MENINGITIS IMMUNIZATION Aged Out No longe r eligible based on patient 's age to complete this topic Insurance Payer Benefit Plan / Subscriber ID Effective Dates Phone Addre ss Type Group HUMANA HUMANA MEDICARE [id number] 2018-Olu [phone] [address] [address] Medicare ADVANTAGE t 0 [place] [address] [facility]-[phone] ([address]) [address] [phone] [address] (Work) [phone] Jimmy Neumannen Personal/Family Self 1945 [phone] (Home) [place] [id number] [place] Medicare Self 1945 [facility]-[phone] (Home) [place] [phone] Advance Directives For more information, please contact: [phone] Latest Code Status on File Code Status Date Activated Date Inactivated Comments Full Code 01/10/2013 6:23 AM 01/10/2013 10:37 PM
--- OUTSIDE RECORDS SUMMARY | 2021-12-08 09:34 | XMS_ITS | Encounter Summary ---
:1945 Author Organization [place] Address [address] [facility] [place] [address] Care Team Providers Name Role Phone Raghavendra Deras MD Primary Care Provider Unavailable Raghavendra Deras MD Unavailable Unavailable Reason for Visit Reason Comments Allied Health Visit Encounter Details Date Type Department Care Team Description 03/19/2019 Allied Health/Nurse Health [facility] Allied Health Visit Visit [address] [address] Social History Tobacco Use Types Packs/Day Years Used Date Smoking Tobacco: Former Cigarettes 0.5 20 Quit : 02/06/1984 Smokeless Tobacco: Never Alcohol Use Standard Drinks/Week Comments Yes 1.7 (1 standard drink = 0.6 oz pure alco hol) occasional Sex Assigned at Date Recorded Male 01/15/2018 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 Data Unavailable LE PAINT SPECIALIST documented in this encounter Plan of Treatment Not on filedocumented as of this encounter Visit Diagnoses Diagnosis BP check - Primary Screening for hypertension documented in this encounter Care Teams Battery Vent Plug Inserter Relationship Specialty Start Date End Date Raghavendra Deras MD PCP - General Family Practice 10/07/13 Raghavendra Deras MD Assigned PCP 01/23/16 05/14/21 documented as of this encounter
--- OUTSIDE RECORDS SUMMARY | 2021-12-08 09:34 | XMS_ITS | Encounter Summary ---
:1945 Author Organization [place] Address [address] [facility] [place] [address] Care Team Providers Name Role Phone Raghavnedra Deras MD Primary Care Provider Unavailable Raghavendra Deras MD Unavailable Unavailable Reason for Visit Reason Onset Date Comments Refill Request 09/26/2018 losartan (COZAAR) 50 MG tablet Encounter Details Date Type Department Care Team Description 09/26/2018 Refill [facility] Raghavendra Deras Ra y, Refill Request (losartan Candy SALDIVAR (COZAAR) 50 MG tablet) [address] [place] [address] Social History Tobacco Use Types Packs/Day Years Used Date Smoking Tobacco: Former Cigarettes 0.5 20 Quit : 02/06/1984 Smokeless Tobacco: Never Alcohol Use Standard Drinks/Week Comments Yes 1.7 (1 standard drink = 0.6 oz pure alco hol) occasional Sex Assigned at Date Recorded Male 01/15/2018 11:39 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
--- OUTSIDE RECORDS SUMMARY | 2021-12-08 09:34 | XMS_ITS | Encounter Summary ---
:1945 Author Organization [place] Address [facility] [place] [address] Care Team Providers Name Role Phone Raghavendra Deras MD Primary Care Provider Unavailable Raghavendra Deras MD Unavailable Unavailable Reason for Visit Reason Comments Medication Refill Encounter Details Date Type Department Care Team Description 03/16/2019 Refill [facility] Raghavendra Deras Ra, MD Medication Refill [address] [address] Social History Tobacco Use Types Packs/Day Years Used Date Smoking Tobacco: Former Cigarettes 0.5 20 Quit : 02/06/1984 Smokeless Tobacco: Never Alcohol Use Standard Drinks/Week Comments Yes 1.7 (1 standard drink = 0.6 oz pure alco hol) occasional Sex Assigned at Date Recorded Male 01/15/2018 11:39 PM 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 Myriam Barrett RN, BSN SKINNER documented in this encounter Plan of Treatment Not on filedocumented as of this encounter Visit Diagnoses Diagnosis Hyperlipidemia LDL goal <130 Other and unspecified hyperlipidemia documented in this encounter Care Teams Care Transitions Manager Relationship Specialty Start Date End Date Raghavendra Deras MD PCP - General Family Practice 10/07/13 Raghavendra Deras MD Assigned PCP 01/23/16 05/14/21 documented as of this encounter
--- OUTSIDE RECORDS SUMMARY | 2021-12-08 09:34 | XMS_ITS | Encounter Summary ---
:1945 Author Organization [place] Address [address] [facility] 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
--- OUTSIDE RECORDS SUMMARY | 2021-12-08 09:34 | XMS_ITS | Encounter Summary ---
:1945 Author Organization [place] Address [address] [facility] [place] [address] Care Team Providers Name Role Phone Raghavendra Deras MD Primary Care Provider Unavailable Raghavendra Deras MD Unavailable Unavailable Encounter Details Date Type Department Care Team Description 03/04/2019 Telephone [facility] Raghvaendra Deras Ra, MD [place] [address] [place] [address] Social History Tobacco Use Types Packs/Day Years Used Date Smoking Tobacco: Former Cigarettes 0.5 20 Quit : 02/06/1984 Smokeless Tobacco: Never Alcohol Use Standard Drinks/Week Comments Yes 1.7 (1 standard drink = 0.6 oz pure alco hol) occasional Sex Assigned at Date Recorded Male 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
--- OUTSIDE RECORDS SUMMARY | 2021-12-08 09:34 | XMS_ITS | Encounter Summary ---
:1945 Author Organization [place] Address [address] [facility] [place] [address] Care Team Providers Name Role Phone Raghavendra Deras MD Primary Care Provider Unavailable Raghavendra Deras MD Unavailable Unavailable Reason for Visit Reason Onset Date Comments Refill Request 03/16/2019 Encounter Details Date Type Department Care Team Description 03/16/2019 MyC Refill [facility] Raghavendra Deras Ra, MD Refill Request [address] [address] Social History Tobacco Use Types Packs/Day Years Used Date Smoking Tobacco: Former Cigarettes 0.5 20 Quit : 02/06/1984 Smokeless Tobacco: Never Alcohol Use Standard Drinks/Week Comments Yes 1.7 (1 standard drink = 0.6 oz pure alco hol) occasional Sex Assigned at Date Recorded Male 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
--- OUTSIDE RECORDS SUMMARY | 2021-12-08 09:34 | XMS_ITS | Encounter Summary ---
:1945 Author Organization [place] Address [address] [facility] 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
--- OUTSIDE RECORDS SUMMARY | 2021-12-08 09:35 | XMS_ITS | Encounter Summary ---
:1945 Author Organization [place] Address [address] [facility] 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
--- OUTSIDE RECORDS SUMMARY | 2021-12-08 09:35 | XMS_ITS | Encounter Summary ---
:1945 Author Organization [place] Address [address] [facility] [place] [address] Care Team Providers Name Role Phone Raghavendra Deras MD Primary Care Provider Unavailable Raghavendra Deras MD Unavailable Unavailable Raghavendra Deras MD Unavailable Unavailable Reason for Visit Diagnostic Imaging XR - Closed Specialty Diagnoses / Procedures Referred By Contact Refer red To Contact Diagnoses Cough Raghavendra Deras MD Procedures XR Chest 2 Views [address] [place] [address] Referral ID Status Reason Start Date Expiration Date Visits Requ ested Visits Authorized [id number] Closed 03/27/2018 03/27/2019 1 1 Encounter Details Date Type Department Care Team Description 03/27/2018 Ancillary Procedure [facility] Raghavendra Deras Ra y, [facility] [address] [place] [id number] Social History Tobacco Use Types Packs/Day Years Used Date Smoking Tobacco: Former Cigarettes 0.5 20 Quit : 02/06/1984 Smokeless Tobacco: Never Alcohol Use Standard Drinks/Week Comments Yes 1.7 (1 standard drink = 0.6 oz pure alco hol) occasional Sex Assigned at Date Recorded Male 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 documented in this encounter Results XR Chest 2 Views (03/27/2018 2:27 PM DENTAL TECHNOLOGIST) Anatomical Region Laterality Modality Chest Computed Radiography Specimen (Source) Anatomical Location Collection Method / Collectio n Time Received Time / Laterality Volume Impressions 03/27/2018 2:35 PM DENTAL TECHNOLOGIST IMPRESSION: Negative. VAHE GILLIAM MD Narrative 03/27/2018 2:35 PM DENTAL TECHNOLOGIST XR CHEST 2 VW 03/27/2018 2:34 PM [...] on filedocumented in this encounter Care Teams Trauma Nurse Relationship Specialty Start Date End Date Raghavendra Deras MD PCP - General Family Practice 10/07/13 Raghavendra Deras MD PCP - Assigned PCP 01/23/16 04/09/18 Raghavendra Deras MD Assigned PCP 01/23/16 05/14/21 documented as of this encounter
--- OUTSIDE RECORDS SUMMARY | 2021-12-08 09:35 | XMS_ITS | Encounter Summary ---
:1945 Author Organization [place] Address [address] [facility]. [address] Care Team Providers Name Role Phone Raghavendra Deras MD Primary Care Provider Unavailable Raghavendra Deras MD Unavailable Unavailable Raghavendra Deras MD Unavailable Unavailable Reason for Referral Diagnostic Imaging XR - Closed Specialty Diagnoses / Procedures Referred By Contact Refer red To Contact Diagnoses Cough Raghavendra Deras MD Procedures XR Chest 2 Views [address] [place] [address] Referral ID Status Reason Start Date Expiration Date Visits Requ ested Visits Authorized [id number] Closed 03/27/2018 03/27/2019 1 1 ULATION OPERATOR Reason for Visit Reason Comments Fever Encounter Details Date Type Department Care Team Description 03/27/2018 Office Visit [facility] Raghavendra Deras Acute bro nchitis, unspecified organism (Primary Dx); Clinic Candy Alan MD Cough [address] [place] [phone] Social History Tobacco Use Types Packs/Day Years Used Date Smoking Tobacco: Former Cigarettes 0.5 20 Quit : 02/06/1984 Smokeless Tobacco: Never Alcohol Use Standard Drinks/Week Comments Yes 1.7 (1 standard drink = 0.6 oz pure alco hol) occasional Sex Assigned at Date Recorded Male 01/15/2018 11:39 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 documented as of this encounter Last Filed Vital Signs Vital Sign Reading Time Taken Comments Blood Pressure 144/90 03/27/2018 1:50 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 Pulse 99 03/27/2018 1:50 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 Temperature 37.4 ??C (99.4 ??F) 03/27/2018 1:50 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 Respiratory Rate 19 03/27/2018 1:50 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 Oxygen Saturation 96% 03/27/2018 1:50 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 Inhaled Oxygen Concentration - - Weight 97.5 kg (215 lb) 03/27/2018 1:50 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 Height 175.3 cm (5' 9) 03/27/2018 1:50 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 Body Mass Index 31.75 03/27/2018 1:50 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 documented in this encounter Patient Instructions [...] be told to take ibuprofen or other [id number]-[id number] medicines.These help relieve inflammation in your bronchial [...] taking antibiotics Date Last Reviewed: 01/06/2016 ?? [phone] [employer] [address] [place] [address], [place] [address]. All rights reserved. This information is not intended as a substitute for professional medical care. Always follow your healthcare professional's instructions. ULATION OPERATOR documented in this encounter Progress Notes [...] History Negative Father ??? C.A.D. Maternal Uncle [place] ??? Cancer - colorectal Maternal Uncle ??? [...] his behalf by Radha Mobley, a trained director medical economics. The creation of this document is based on the provider's statements to the director medical economics. Radha Mobley 2:00 PM March 27, 2018 [...] information in this document, created by the director medical economics for me, accurately reflects the services I personally performed and the decisions made by me. I have reviewed and approved this document for accuracy prior to leaving the patient care area. March 27, 2018 3:07 PM Raghavendra Deras MD [facility] ULATION OPERATOR documented in this encounter Plan of Treatment Not on filedocumented as of this encounter Procedures Procedure Name Priority Date/Time Associated Diagnosis Comme nts XR CHEST 2 VIEWS Routine 03/27/2018 2:27 PM Cough Resul ts for this COAGULATION OPERATOR procedure are i n the results section. documented in this encounter Results XR Chest 2 Views (03/27/2018 2:27 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) Anatomical Region Laterality Modality Chest Computed Radiography Specimen (Source) Anatomical Location Collection Method / Collectio n Time Received Time / Laterality Volume Impressions 03/27/2018 2:35 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 IMPRESSION: Negative. VAHE GILLIAM MD Narrative 03/27/2018 2:35 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 XR CHEST 2 VW 03/27/2018 2:34 [...] Cough documented in this encounter Care Teams Iv Technician Relationship Specialty Start Date End Date Raghavendra Deras MD PCP - General Family Practice 10/07/13 Raghavendra Deras MD PCP - Assigned PCP 01/23/16 04/09/18 Raghavendra Deras MD Assigned PCP 01/23/16 05/14/21 documented as of this encounter
--- OUTSIDE RECORDS SUMMARY | 2021-12-08 09:35 | XMS_ITS | Encounter Summary ---
:1945 Author Organization [place] Address [address] [facility] [place] [address] Care Team Providers Name Role Phone Raghavendra Deras MD Primary Care Provider Unavailable Raghavendra Deras MD Unavailable Unavailable Reason for Visit Rehab Therapy Integrated Services - Closed Specialty Diagnoses / Procedures Referred By Contact Refer red To Contact Diagnoses Hoarseness R49.0 M [facility] Procedures [facility] [address] [place] [phone] Phone: Fax: Referral ID Status Reason Start Date Expiration Date Visits Requ ested Visits Authorized [id number] Closed 04/05/2018 02/04/2019 365 365 Encounter Details Date Type Department Care Team Description 04/10/[address] 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 [facility] OP COLD WORK OPERATOR Voice Evaluation with Videostroboscopy 04/10/18 1115 General [...] with plan of care Yes Patient Education COLD WORK OPERATOR provided education regarding evaluation and videostroboscopy findings [...] of 10, 90% of the time by COLD WORK OPERATOR judgment, so that patient is able to [...] Date 07/11/18 Total Session Time Voice Minutes (47198) 35 Laryngoscopy W/Stroboscopy Minutes (71451) 30 Total Evaluation Time 65 Thank you for the referral of this patient. Jyoti Luo B.A. (lissette)Leo, [facility]-COLD WORK OPERATOR Speech-Language Pathologist Certificate of Vocology [facility] [phone] documented in this encounter Miscellaneous Notes Addendum Note - Jyoti Robert SLP - 04/10/2018 11:59 PM MEMORIAL MARKER DESIGNER Encounter addended by: Jyoti Luo SLP on: 04/23/2018 8:59 AM Actions taken: Sign clinical note, Flowsheet accepted Addendum Note - Jyoti Robert SLP - 04/10/2018 11:59 PM MEMORIAL MARKER DESIGNER Encounter addended by: Jyoti Luo SLP on: 05/01/2019 9:33 AM Actions taken: Episode resolved documented in this encounter Plan of Treatment Not on filedocumented as of this encounter Visit Diagnoses Not on filedocumented in this encounter Care Teams Private Branch Exchange Installer Relationship Specialty Start Date End Date Raghavendra Deras MD PCP - General Family Practice 10/07/13 Raghavendra Deras MD Assigned PCP 01/23/16 05/14/21 documented as of this encounter
--- OUTSIDE RECORDS SUMMARY | 2021-12-08 09:35 | XMS_ITS | Encounter Summary ---
:1945 Author Organization [place] Address [address] [place] [address] Care Team Providers Name Role Phone Raghavendra Deras MD Primary Care Provider Unavailable Raghavendra Deras MD Unavailable Unavailable Reason for Visit Auth/Cert Specialty Diagnoses / Procedures Referred By Contact Refer red To Contact Gastroenterology Diagnoses PERSONAL HISTORY OF POLYPS Sh Endoscopy Procedures COLONOSCOPY [address] [place] [phone] Phone: Referral ID Status Reason Start Date Expiration Date Visits Requ ested Visits Authorized [id number] 1 1 Encounter Details Date Type Department Care Team Description 08/05/2018 Hospital Encounter [facility] Gerry Fajardo MD [facility] Endoscopy COLON RECTAL SURG [address] [place] [place] [phone] [address] [phone] [address] [place] [address] (Wo rk) Social History Tobacco Use Types Packs/Day Years Used Date Smoking Tobacco: Former Cigarettes 0.5 20 Quit : 02/06/1984 Smokeless Tobacco: Never Alcohol Use Standard Drinks/Week Comments Yes 1.7 (1 standard drink = 0.6 oz pure alco hol) occasional Sex Assigned at Date Recorded Male 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/2018 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 documented as of this encounter Last Filed [...] Arthur Fajardo August 05, 2018 Colorectal Surgery [phone] (office) [phone] (pager) [email or web address] documented in this encounter Plan [...] Component Value Ref Test Analysis Performed At [facility] Method Time Signature Copath Report Patient Name: LO NEUMANN MR#: [id number] Specimen #: [id number] Collected: 08/05/2018 Received: 08/05/2018 Reported: 08/06/2018 15:02 [...] of this testing was completed at the [facility], with the professional compo nent performed at the [facility], [address] [place] [address] ??[phone] ([phone]) CPT Codes: A: 66007-LF0 B: 26788-RU1 COLLECTION SITE: Client: [facility] Location: SHENDO (S) Specimen (Source) [...] Component Value Ref Test Analysis Performed At [facility] Method Time Signature COLONOSCOPY [facility] RADIOLOGY [facility] Endoscopy Department RESULTS Patient Name: Lo Neumann ?Procedure Date: 08/05 11:51 AM ? Accou nt Number: [id number] Date of : 1945 ?Admit Type: Out patient Age: 73 ? Room: 1 ? Note Status: Finalized ?Attending MD: Arthur Fajardo MD Total Sedation Time: ?I nstrument Name: 321 [id number] AdultColonoscope Procedure: ?Colonoscopy Indications: ?High ri sk [...] Procedure Code(s): ? --- Professional --- ? 80626, Colonoscopy, flexible; with removal of tumor (s), polyp(s), or ? other lesion(s) by snare technique Diagnosis Code(s): ? --- Professional --- ? K57.30, Diverticulosi s of large intestine without perforation or abscess ? without bleeding ? D12.8, Benign neoplasm of rectum ? D12.2, Benign neoplasm of ascending colon ? Z86.010, Personal history of colonic polyps CPT copyright 2017 [employer]. All rights reserved. The codes documented in this report are prelimin sanaz and upon log chipper operator review may be revised to meet current compliance requirements. Arthur Fajardo MD 08/05/2018 12:14:14 PM I was physically present for the entire viewing portion of t he exam. Arthur Fajardo MD Number of Addenda: 0 Note Initiated On: 08/05/2018 11:51 AM MRN: ?[id number] Procedure Date: ? 08/05/2018 11:51:36 AM Scope [...]
Post-procedure documented in this encounter Care Teams Account Associate Relationship Specialty Start Date End Date Raghavendra Deras MD PCP - General Family Practice 10/07/13 Raghavendra Deras MD Assigned PCP 01/23/16 05/14/21 documented as of this encounter
--- OUTSIDE RECORDS SUMMARY | 2021-12-08 09:35 | XMS_ITS | Encounter Summary ---
:1945 Author Organization [place] Address [address] [facility] [place] [address] Care Team Providers Name Role Phone Raghavendra Deras MD Primary Care Provider Unavailable Raghavendra Deras MD Unavailable Unavailable Raghavendra Deras MD Unavailable Unavailable Reason for Visit Diagnostic Imaging XR - Closed Specialty Diagnoses / Procedures Referred By Contact Refer red To Contact Diagnoses Midline low back pain without sciatica, unspecified chronicity Raghavendra Deras MD Procedures XR Lumbar Spine 2/[address] [place] [address] Referral ID Status Reason Start Date Expiration Date Visits Requ ested Visits Authorized [id number] Closed 01/09/2018 01/09/2019 1 1 Encounter Details Date Type Department Care Team Description 01/09/2018 Radiant Appointment [facility] Candy Alan MD pain without [address] sciatica, [place] unspecified [address] chronicity [phone] Social History Tobacco Use Types Packs/Day Years Used Date Smoking Tobacco: Former Cigarettes 0.5 20 Quit : 02/06/1984 Smokeless Tobacco: Never Alcohol Use Standard Drinks/Week Comments Yes 1.7 (1 standard drink = 0.6 oz pure alco hol) occasional Sex Assigned at Date Recorded Male 01/15/2018 11:39 PM DOCTOR OF NURSE ANESTHESIA documented as of this encounter Plan of Treatment Not on filedocumented as of this encounter Procedures Procedure Name Priority Date/Time Associated Diagnosis Comme nts XR LUMBAR SPINE 2/3 Routine 01/09/2018 11:11 AM Midline low ba ck Results for this VIEWS DOCTOR OF NURSE ANESTHESIA pain without procedure are i n sciatica, the results unspecified section. chronicity documented in this encounter Results XR Lumbar Spine 2/3 Views (01/09/2018 11:11 AM DOCTOR OF NURSE ANESTHESIA) Anatomical Region Laterality Modality Spine, T-spine, L-spine, Abdomen/Pelvis Computed Radiography Specimen (Source) Anatomical Location Collection Method / Collectio n Time Received Time / Laterality Volume Impressions 01/10/2018 7:37 AM DOCTOR OF NURSE ANESTHESIA IMPRESSION: Degenerative change, stable in comparison with 2016. AWAIS PRATHER MD Narrative 01/10/2018 7:37 AM DOCTOR OF NURSE ANESTHESIA XR LUMBAR SPINE 2-3 VIEWS 01/09/2018 11:11 [...] chronicity documented in this encounter Care Teams International Editorial Producer Relationship Specialty Start Date End Date Raghavendra Deras MD PCP - General Family Practice 10/07/13 Raghavendra Deras MD PCP - Assigned PCP 01/23/16 04/09/18 Raghavendra Deras MD Assigned PCP 01/23/16 05/14/21 documented as of this encounter
--- OUTSIDE RECORDS SUMMARY | 2021-12-08 09:35 | XMS_ITS | Encounter Summary ---
:1945 Author Organization [place] Address [address] [facility] [place] [address] Care Team Providers Name Role Phone Raghavendra Deras MD Primary Care Provider Unavailable Raghavendra Deras MD Unavailable Unavailable Raghavendra Deras MD Unavailable Unavailable Reason for Visit Reason Onset Date Comments Nurse Advice Line 04/05/2018 BP check Encounter Details Date Type Department Care Team Description 04/05/2018 Telephone [facility] Raghavendra Deras Nurs e Advice Line (BP Clinic [place] MD check) [address] [place] [address] Social History Tobacco Use Types Packs/Day Years Used Date Smoking Tobacco: Former Cigarettes 0.5 20 Quit : 02/06/1984 Smokeless Tobacco: Never Alcohol Use Standard Drinks/Week Comments Yes 1.7 (1 standard drink = 0.6 oz pure alco hol) occasional Sex Assigned at Date Recorded Male 01/15/2018 11:39 PM 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 He did express understanding. Fatemeh Carbajal RN -- [facility] DENT SERVICES SUPERVISOR Telephone Encounter - Raghavendra Deras MD - 04/08/2018 2:47 PM CST BP better, continue current meds back on hydrochlorothiazide. DENT SERVICES SUPERVISOR Telephone Encounter - Raudel Garcia CMA - [...] have an appt on 04/15/2018.Raudel Garcia CMA DENT SERVICES SUPERVISOR documented in this encounter Plan of Treatment Not on filedocumented as of this encounter Visit Diagnoses Not on filedocumented in this encounter Care Teams Recovery Operator Relationship Specialty Start Date End Date Raghavendra Deras MD PCP - General Family Practice 10/07/13 Raghavendra Deras MD PCP - Assigned PCP 01/23/16 04/09/18 Raghavendra Deras MD Assigned PCP 01/23/16 05/14/21 documented as of this encounter
--- OUTSIDE RECORDS SUMMARY | 2021-12-08 09:35 | XMS_ITS | Encounter Summary ---
:1945 Author Organization [place] Address [address] [facility] [place] [address] Care Team Providers Name Role Phone Raghavendra Deras MD Primary Care Provider Unavailable Raghavendra Deras MD Unavailable Unavailable Raghavendra Deras MD Unavailable Unavailable Reason for Visit Reason Comments Medication Refill omeprazole (PRILOSEC) 40 MG capsule Encounter Details Date Type Department Care Team Description 02/07/2018 Refill [facility] Raghavendra Deras Ra, Medication Refill Candy SALDIVAR (omeprazole (PRILOSEC) [address] [facility] 40 MG capsule ) [place] [address] Social History Tobacco Use Types Packs/Day Years Used Date Smoking Tobacco: Former Cigarettes 0.5 20 Quit : 02/06/1984 Smokeless Tobacco: Never Alcohol Use Standard Drinks/Week Comments Yes 1.7 (1 standard drink = 0.6 oz pure alco hol) occasional Sex Assigned at Date Recorded Male 01/15/2018 11:39 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 documented as of this encounter Miscellaneous Notes Telephone Encounter - Leah Banks, CD REACTOR OPERATOR - 02/07/2018 3:50 PM CST Requested Prescriptions [...] - Patient is age 18 or older ER MAGAZINE GRINDER documented in this encounter Plan of Treatment Not on filedocumented as of this encounter Visit Diagnoses Diagnosis History of peptic ulcer disease Personal history of peptic ulcer disease documented in this encounter Care Teams Melting Supervisor Relationship Specialty Start Date End Date Raghavendra Deras MD PCP - General Family Practice 10/07/13 Raghavendra Deras MD PCP - Assigned PCP 01/23/16 04/09/18 Raghavendra Deras MD Assigned PCP 01/23/16 05/14/21 documented as of this encounter
--- OUTSIDE RECORDS SUMMARY | 2021-12-08 09:35 | XMS_ITS | Encounter Summary ---
:1945 Author Organization [place] Address [address] 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
--- OUTSIDE RECORDS SUMMARY | 2021-12-08 09:35 | XMS_ITS | Encounter Summary ---
:1945 Author Organization [place] Address [address] [facility] 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
--- OUTSIDE RECORDS SUMMARY | 2021-12-08 09:35 | XMS_ITS | Encounter Summary ---
:1945 Author Organization [place] Address [address] [facility] 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
--- OUTSIDE RECORDS SUMMARY | 2021-12-08 09:35 | XMS_ITS | Encounter Summary ---
:1945 Author Organization [place] Address [address] [facility] [place] [address] Care Team Providers Name Role Phone Raghavendra Deras MD Primary Care Provider Unavailable Raghavendra Deras MD Unavailable Unavailable Raghavendra Deras MD Unavailable Unavailable Reason for Visit [facility] Physical Therapy - Closed Specialty Diagnoses / Procedures Referred By Contact Refer red To Contact Diagnoses Midline low back pain without sciatica, [place] [address] [place] [address] Referral ID Status Reason Start Date Expiration Date Visits Requ ested Visits Authorized [id number] Closed 01/09/2018 01/09/2019 1 1 Encounter Details Date Type Department Care Team Description 01/16/[address] [facility] Raghavendra Deras MD Bilateral low back pain without sciatica (Primary Dx); Rehabilitation Services Naya Faust, PT [address] 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 SINGER Pily Bell - 01/16/2018 10:50 AM CST [facility] Initial Evaluation Subjective: Pertinent medical history includes: High blood pressure and osteoarthritis. Current medications: High blood pressure medication. Current occupation is retired. Primary job tasks include: Lifting and prolonged sitting (computer work, carrying, pushing, pullling). Objective: System Physical Exam General ROS Assessment/Plan: SINGER documented in this encounter Plan of Treatment Not on filedocumented as of this encounter Procedures Procedure Name Priority Date/Time Associated Diagnosis Comme nts [facility] NEUROMUSCULAR Routine 01/16/2018 12:31 PM Midline low back pain RE-EDUCATION ALTO SINGER without sciatica, unspecified chronicity [facility] THERAPEUTIC EXERCISES Routine 01/16/2018 12:31 PM Midline low back pain ALTO SINGER without sciatica, unspecified chronicity documented in this encounter Visit Diagnoses Diagnosis Midline low back pain without sciatica, unspecified chronicity documented in this encounter Care Teams Delivery Table Feeder Relationship Specialty Start Date End Date Raghavendra Deras MD PCP - General Family Practice 10/07/13 Raghavendra Deras MD PCP - Assigned PCP 01/23/16 04/09/18 Raghavendra Deras MD Assigned PCP 01/23/16 05/14/21 documented as of this encounter
--- OUTSIDE RECORDS SUMMARY | 2021-12-08 09:35 | XMS_ITS | Encounter Summary ---
:1945 Author Organization [place] Address [address] [facility] [place] [address] Care Team Providers Name Role Phone Raghavendra Deras MD Primary Care Provider Unavailable Raghavendra Deras MD Unavailable Unavailable Raghavendra Deras MD Unavailable Unavailable Reason for Visit Reason Onset Date Comments Refill Request 02/07/2018 losartan (COZAAR) 25 MG tablet Encounter Details Date Type Department Care Team Description 02/07/2018 Refill [facility] Raghavendra Deras Ra, Refill Request (losartan Candy SALDIVAR (COZAAR) 25 MG tablet) [address] [place] [address] Social History Tobacco Use Types Packs/Day Years Used Date Smoking Tobacco: Former Cigarettes 0.5 20 Quit : 02/06/1984 Smokeless Tobacco: Never Alcohol Use Standard Drinks/Week Comments Yes 1.7 (1 standard drink = 0.6 oz pure alco hol) occasional Sex Assigned at Date Recorded 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 Ariella Davidson Shipping And Receiving SERVICE OBSERVER Telephone Encounter - Myriam Barrett RN - 02/07/2018 7:32 AM CST Routing refill request to provider for review/approval because: Labs not current: CR (thi was last ordered by a different provider) Myriam Barrett RN, BSN SERVICE OBSERVER Telephone Encounter - Wade Wiggins - 02/07/2018 [...] 12 months Recent Labs Lab Test 02/09/17 09 POTASSIUM 3.5 Wade Wiggins XRT SERVICE OBSERVER documented in this encounter Plan of Treatment Not on filedocumented as of this encounter Visit Diagnoses Diagnosis Hypertension goal BP (blood pressure) < 140/90 Unspecified essential hypertension documented in this encounter Care Teams Lace Roller Operator Relationship Specialty Start Date End Date Raghavendra Deras MD PCP - General Family Practice 10/07/13 Raghavendra Deras MD PCP - Assigned PCP 01/23/16 04/09/18 Raghavendra Deras MD Assigned PCP 01/23/16 05/14/21 documented as of this encounter
--- OUTSIDE RECORDS SUMMARY | 2021-12-08 09:35 | XMS_ITS | Encounter Summary ---
:1945 Author Organization [place] Address [address] [facility] [place] [address] Care Team Providers Name Role Phone Raghavendra Deras MD Primary Care Provider Unavailable Raghavendra Deras MD Unavailable Unavailable Raghavendra Deras MD Unavailable Unavailable Reason for Referral Diagnostic Procedure Outpatient - Closed Specialty Diagnoses / Procedures Referred By Contact Refer red To Contact Diagnoses Colon cancer screening Raghavendra Deras MD [facility] [address] [place] [address] [address] [place] [address] Phone: Fax: Referral ID Status Reason Start Date Expiration Date Visits Requ ested Visits Authorized [id number] Closed 03/19/2018 03/19/2019 1 1 T ORDER FRY COOK Reason for Visit Reason Comments Wellness Visit Encounter Details Date Type Department Care Team Description 03/19/2018 Office Visit [facility] Raghavendra Deras g eneral medical examination at a health care facility (Primary Dx); Clinic Candy Alan MD History of peptic ulcer dise ase; [address] [facility] Gastroesophageal reflux dise ase, esophagitis presence not specified; [place], [place] Essential hype rtension; [phone] Hyperlipidemia LDL goal <130 ; [phone] Hypertension go al BP (blood pressure) < [...] at Date Recorded Male 01/15/2018 11:39 PM SHORT ORDER FRY COOK documented as of this encounter Last Filed Vital Signs Vital Sign Reading Time Taken Comments Blood Pressure 132/82 03/19/2018 10:01 AM SHORT ORDER FRY COOK Pulse 95 03/19/2018 10:01 AM SHORT ORDER FRY COOK Temperature 36.7 ??C (98.1 ??F) 03/19/2018 10:01 AM SHORT ORDER FRY COOK Respiratory Rate - - Oxygen Saturation 95% 03/19/2018 10:01 AM SHORT ORDER FRY COOK Inhaled Oxygen Concentration - - Weight 97.5 kg (215 lb) 03/19/2018 10:01 AM SHORT ORDER FRY COOK Height 175.3 cm (5' 9) 03/19/2018 10:01 AM SHORT ORDER FRY COOK Body Mass Index 31.75 03/19/2018 10:01 AM SHORT ORDER FRY COOK documented in this encounter Patient Instructions Patient InstructionsFatemeh Camacho CMA - 03/19/2018 10:00 AM CST Preventive [...] 03/14/2016 ??? Cholesterol Lab - yearly 01/31/2018 T ORDER FRY COOK documented in this encounter Progress Notes Raghavendra [...] recalled: COGNITIVE IMPAIRMENT LESS LIKELY Mini-CogTM Copyright S Yoanna. Licensed by the author for use in [facility]; reprintedwith permission ([email or web address]). All rights reserved. Do you have sleep [...] History Negative Father ??? C.A.D. Maternal Uncle [place] ??? Cancer - colorectal Maternal Uncle ??? [...] his behalf by Radha Mobley, a trained associate medical director. The creation of this document is based on the provider's statements to the associate medical director. Radha Mobley 10:08 AM March 19, 2018 [...] screening - GASTROENTEROLOGY ADULT REF PROCEDURE ONLY [facility] Dormitory Counselor ; No Provider Preference End of Life [...] information in this document, created by the associate medical director for me, accurately reflects the services I personally performed and the decisions made by me. I have reviewed and approved this document for accuracy prior to leaving the patient care area. March 19, 2018 10:41 AM Raghavendra Deras MD [facility] T ORDER FRY COOK documented in this encounter Plan of Treatment Scheduled Referrals Name Type Priority Associated Diagnoses Order S [facility] GASTROENTEROLOGY ADULT REF Referral Routine Colon cancer O rdered: 03/19/2018 PROCEDURE ONLY [place] screening Dormitory Counselor ; No Provider Preference documented as of this encounter Procedures Procedure Name Priority Date/Time Associated Diagnosis Comme nts MAGNESIUM Routine 03/19/2018 10:43 Gastroesophageal reflux Results for this AM SHORT ORDER FRY COOK disease, esophagitis procedu re are in presence not specified the r esults section. LIPID REFLEX TO Routine 03/19/2018 10:43 Hyperlipidemia LDL go al Results for this DIRECT LDL PANEL AM SHORT ORDER FRY COOK <130 procedure a re in the results section. ALT Routine 03/19/2018 10:43 Hyperlipidemia LDL goal Results for this AM SHORT ORDER FRY COOK <130 procedure are i n the results section. VITAMIN B12 Routine 03/19/2018 10:43 Gastroesophageal reflux Results for this AM SHORT ORDER FRY COOK disease, esophagitis procedu re are in presence not specified the r esults section. BASIC METABOLIC Routine 03/19/2018 10:43 Essential hypertensio n Results for this PANEL AM SHORT ORDER FRY COOK procedure are i n the results section. documented in this encounter Results Magnesium (03/19/2018 10:43 AM SHORT ORDER FRY COOK) athologist Signature Magnesium 2.1 1.6 - 2.3 03/20/2018 [facility] mg/dL 9:57 AM [facility] Specimen Anatomical Collection Method Collection Time Receive d Time (Source) Location / / Volume Laterality Blood specimen 03/19/2018 10:43 9 (specimen) AM SHORT ORDER FRY COOK 10:44 AM SHORT ORDER FRY COOK Raghavendra Deras MD LAB - BLOOD ORDERABLES Performing Organization Address City/[facility]/ZIP Code Phon e Number [facility] [address] [address] Vitamin B12 (03/19/2018 10:43 AM SHORT ORDER FRY COOK) athologist Signature Vitamin B12 592 193 - 986 03/19/2018 [facility] pg/mL 6:24 PM [facility] Specimen Anatomical Collection Method Collection Time Receive d Time (Source) Location / / Volume Laterality Blood specimen 03/19/2018 10:43 9 (specimen) AM SHORT ORDER FRY COOK 10:44 AM SHORT ORDER FRY COOK Raghavendra Deras MD LAB - BLOOD ORDERABLES Performing Organization Address City/[facility]/ZIP Code Phon e Number [address] [address] [facility] ALT (03/19/2018 10:43 AM SHORT ORDER FRY COOK) athologist Signature ALT 41 0 - 70 U/L 03/20/2018 [facility] 9:57 AM [facility] Specimen Anatomical Collection Method Collection Time Receive d Time (Source) Location / / Volume Laterality Blood specimen 03/19/2018 10:43 9 (specimen) AM SHORT ORDER FRY COOK 10:44 AM SHORT ORDER FRY COOK Raghavendra Deras MD LAB - BLOOD ORDERABLES Performing Organization Address City/[facility]/ZIP Code Phon e Number [facility] [address] [place] [address] Basic metabolic panel (03/19/2018 10:43 AM SHORT ORDER FRY COOK) athologist Signature Sodium 140 133 - 144 03/20/2018 [facility] mmol/L 9:46 AM [facility] Potassium 4.0 3.4 - 5.3 03/20/2018 [facility] mmol/L 9:46 AM [facility] Chloride 109 94 - 109 03/20/2018 [facility] mmol/L 9:46 AM [facility] Carbon Dioxide 26 20 - 32 03/20/2018 [facility] mmol/L 9:57 AM [facility] Anion Gap 5 3 - 14 03/20/2018 [facility] mmol/L 9:57 AM [facility] Glucose 97 70 - 99 03/20/2018 [facility] mg/dL 9:57 AM [facility] Urea Nitrogen 12 7 - 30 03/20/2018 [facility] mg/dL 9:57 AM [facility] Creatinine 1.00 0.66 - 03/20/2018 [facility] 1.25 mg/dL 9:57 AM [facility] GFR Estimate 74 >60 03/20/2018 [facility] mL/min/{1. 9:57 AM [facility] 73_m2} [facility] Comment: Non GFR Calc Starting 01/22/2018, serum creatinine ba sed estimated GFR (eGFR) will be calculated using the Chronic Kidney Dise [facility] Epidemiology Collaboration (CKD-EPI) equation. GFR Estimate If 86 >60 mL/min/{1.73_m2} 03/20/2018 9: 57 AM [facility] Black [facility] Comment: GFR Calc Starting 01/22/2018, serum creatinine ba sed estimated GFR (eGFR) will be calculated using the Chronic Kidney Dise [facility] Epidemiology Collaboration (CKD-EPI) equation. Calcium 8.9 8.5 - 10.1 mg/dL 03/20/2018 9:57 AM [facility] Specimen Anatomical Collection Method Collection Time Receive d Time (Source) Location / / Volume Laterality Blood specimen 03/19/2018 10:43 9 (specimen) AM SHORT ORDER FRY COOK 10:44 AM SHORT ORDER FRY COOK Raghavendra Deras MD LAB - BLOOD ORDERABLES Performing Organization Address City/State/ZIP Code Phon e Number [facility] [address] [place] [address] Lipid panel reflex to direct LDL Fasting (03/19/2018 10:43 AM SHORT ORDER FRY COOK) Patholo gist Method Time Signature Cholesterol 150 <200 03/20/2018 [facility] mg/dL 9:57 AM [facility] Triglycerides 144 <150 03/20/2018 [facility] mg/dL 9:57 AM [facility] HDL Cholesterol 47 >39 mg/dL 03/20/2018 [facility] 9:57 AM [facility] LDL Cholesterol 74 <100 03/20/2018 [facility] Calculated mg/dL 9:57 AM [facility] Comment: Desirable: <100 mg/dl Non HDL Cholesterol 103 <130 mg/dL 03/20/2018 9:57 AM SHORT ORDER FRY COOK [facility] Specimen Anatomical Collection Method Collection Time Receive d Time (Source) Location / / Volume Laterality Blood specimen 03/19/2018 10:43 9 (specimen) AM SHORT ORDER FRY COOK 10:44 AM SHORT ORDER FRY COOK Raghavendra Deras MD LAB - BLOOD ORDERABLES Performing Organization Address City/State/ZIP Code Phon e Number [facility] [address] [place] [address] documented in this encounter Visit Diagnoses Diagnosis [...] colon documented in this encounter Care Teams Biology Manager Relationship Specialty Start Date End Date Raghavendra Deras MD PCP - General Family Practice 10/07/13 Raghavendra Deras MD PCP - Assigned PCP 01/23/16 04/09/18 Raghavendra Deras MD Assigned PCP 01/23/16 05/14/21 documented as of this encounter
--- OUTSIDE RECORDS SUMMARY | 2021-12-08 09:35 | XMS_ITS | Encounter Summary ---
:1945 Author Organization [place] Address [address] [facility] [place] [address] Care Team Providers Name Role Phone Raghavendra Deras MD Primary Care Provider Unavailable Raghavendra Deras MD Unavailable Unavailable Reason for Visit Auth/Cert Specialty Diagnoses / Procedures Referred By Contact Refer red To Contact Gastroenterology Diagnoses PERSONAL HISTORY OF POLYPS Endoscopy Procedures COLONOSCOPY [address] [place] [address] Phone: Referral ID Status Reason Start Date Expiration Date Visits Requ ested Visits Authorized [id number] 1 1 Encounter Details Date Type Department Care Team Description 08/05/2018 Surgery [facility] Arthur Fajardo MD COLONOSCOPY, FLEXIBLE, [facility] COLON RECTAL SURG WITH LESION REMOVAL [address] [place] [address] [place] [address] [place] [address] [phone] [address] [place] [id number] (Wo rk) Surgery Details Date/Time Status Location OR Service Patient Class Case Case Trauma Class Type Case? 08/05/18 11:00 Posted GI GI 01 [place] AM Panel 1 Procedure [facility] Anes Op Region Wound Class Commen ts COLONOSCOPY, N/A Conscious Sedation Rectum II-Clean Contam inated FLEXIBLE, WITH LESION REMOVAL USING SNARE Surgeon Surgeon Role Service Panel Arthur Fajardo MD Primary [place] 1 documented in this encounter Social History Tobacco Use Types Packs/Day Years Used Date Smoking Tobacco: Former Cigarettes 0.5 20 Quit : 02/06/1984 Smokeless Tobacco: Never Alcohol Use Standard Drinks/Week Comments Yes 1.7 (1 standard drink = 0.6 oz pure alco hol) occasional Sex Assigned at Date Recorded 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 C.A.D. Maternal Uncle [place] ??? Cancer - colorectal Maternal Uncle ??? Prostate Cancer Other Cousin PHYSICAL EXAM: BP 135/66 Pulse 67 Resp 18 Ht 1.753 m (' 9) Wt 90.7 kg (200 lb) SpO2 97% BMI 29.53 kg/m?? Estimated body mass index is 29.53 kg/m?? as calculated from the following: Height as of this encounter: 1.753 m (' 9). Weight as of this encounter: 90.7 kg (200 lb). Mental status - alert and oriented RESP: lungs clear CV: RRR AIRWAY EXAM: Mallampatti Class II (visualization of the soft palate, fauces, and uvula) IMPRESSION ASA Class 2 - Mild systemic disease Signed Electronically by: Arthur Fajardo August 05, 2018 Colorectal Surgery [phone] (office) [phone] (pager) [email or web address] documented in this encounter Plan [...] Component Value Ref Test Analysis Performed At [employer] Range Method Time Signature Copath Report Patient Name: LO NEUMANN MR#: [id number] Specimen #: [id number] Collected: 08/05/2018 Received: 08/05/2018 Reported: 08/06/2018 15:02 [...] [place] 08/05/2018 02:23 PM) MICROSCOPIC: Felicity Galeana performed The technical component of this testing was completed at the [facility], with the professional compo nent performed at the [facility], [address] [place] [address] ??[phone] ([phone]) CPT Codes: A: 06185-US7 B: 36521-JX5 COLLECTION SITE: Client: [facility] Location: [place] (S) Specimen (Source) Anatomical Collection Method Collection Time Re ceived Time Location / / Volume Laterality Polyp LARGE INTESTINE 08/05/2018 12:05 (morphologic PART / Unknown PM CDT abnormality) Comment: Cold snare Polyp (morphologic RECTUM STRUCTURE / Unknown 08/06/19 19 12:11 PM CDT abnormality) Comment: Cold snare Arthur MOLINA - SOHAIL RAMIREZ Performing Organization Address City/State/ZIP Code Phon e Number [place] COLONOSCOPY (08/05/2018 11:51 AM CDT) Component Value Ref Test Analysis Performed At [facility] Range Method Time Signature COLONOSCOPY [facility] RADIOLOGY [facility] Endoscopy Department RESULTS Patient Name: Lo Neumann ?Procedure Date: 08/05 11:51 AM ? Accou nt Number: [id number] Date of : 1945 ?Admit Type: Out patient Age: 73 ? Room: 1 ? Note Status: Finalized ?Attending MD: Arthur Fajardo MD Total Sedation Time: ?I nstrument Name: Nathaniel -[id number] AdultColonoscope Procedure: ?Colonoscopy Indications: ?High ri sk [...] Procedure Code(s): ? --- Professional --- ? 94151, Colonoscopy, flexible; with removal of tumor (s), polyp(s), or ? other lesion(s) by snare technique Diagnosis Code(s): ? --- Professional --- ? K57.30, Diverticulosi s of large intestine without perforation or abscess ? without bleeding ? D12.8, Benign neoplasm of rectum ? D12.2, Benign neoplasm of ascending colon ? Z86.010, Personal history of colonic polyps CPT copyright 2017 [employer]. All rights reserved. The codes documented in this report are prelimin sanaz and upon project development leader review may be revised to meet current compliance requirements. Arthur Fajardo MD 08/05/2018 12:14:14 PM I was physically present for the entire viewing portion of t he exam. Arthur Fajardo MD Number of Addenda: 0 Note Initiated On: 08/05/2018 11:51 AM MRN: ?[id number] Procedure Date: ? 08/05/2018 11:51:36 AM Scope [...] 1157 (Given - Provider: Alana Jose, RN) PRN, Administer over 3-5 Minutes, Starti [...] injection 115 7 (Given - Provider: Alana Jose RN)1159 (Given - Provider: Alana Jose, ALVERTO) Administer over 2 Minutes, PRN, Starting on [...]
Post-procedure documented in this encounter Care Teams Plate Worker Relationship Specialty Start Date End Date Raghavendra Deras MD PCP - General Family Practice 10/07/13 Raghavendra Deras MD Assigned PCP 01/23/16 05/14/21 documented as of this encounter
--- OUTSIDE RECORDS SUMMARY | 2021-12-08 09:35 | XMS_ITS | Encounter Summary ---
:1945 Author Organization [place] Address [address] [place] [address] Care Team Providers Name Role Phone Raghavendra Deras MD Primary Care Provider Unavailable Raghavendra Deras MD Unavailable Unavailable Raghavendra Deras MD Unavailable Unavailable Encounter Details Date Type Department Care Team Description 01/24/2018 Therapy Visit [facility] Naya Faust Bila teral low back Rehabilitation Services PT pain without [place] [address] sciatica (Primary [address] 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 Plan of Treatment Not on filedocumented as of this encounter Procedures Procedure Name Priority Date/Time Associated Diagnosis Comme nts [facility] NEUROMUSCULAR Routine 01/24/2018 1:58 PM Bilateral low jaciel k RE-EDUCATION AGRICULTURAL TECHNICAL OFFICER pain without sciatica ZZC THERAPEUTIC EXERCISES Routine 01/24/2018 1:58 PM Bilateral low back AGRICULTURAL TECHNICAL OFFICER pain without sciatica documented in this encounter Visit Diagnoses Diagnosis Bilateral low back pain without sciatica - Primary documented in this encounter Care Teams School Supervisor Relationship Specialty Start Date End Date Raghavendra Deras MD PCP - General Family Practice 10/07/13 Raghavendra Deras MD PCP - Assigned PCP 01/23/16 04/09/18 Raghavendra Deras MD Assigned PCP 01/23/16 05/14/21 documented as of this encounter
--- OUTSIDE RECORDS SUMMARY | 2021-12-08 09:35 | XMS_ITS | Encounter Summary ---
:1945 Author Organization [place] Address Formerly [facility] [place] [address] Care Team Providers Name Role Phone Raghavednra Deras MD Primary Care Provider Unavailable Raghavendra Deras MD Unavailable Unavailable Raghavendra Deras MD Unavailable Unavailable Reason for Visit Reason Comments Allied Health Visit BP check Encounter Details Date Type Department Care Team Description 04/05/2018 Allied Health/Nurse Health [facility] ied Health Visit (BP Visit Clinic [facility]) [address] [place] [address] Social History Tobacco Use Types Packs/Day Years Used Date Smoking Tobacco: Former Cigarettes 0.5 20 Quit : 02/06/1984 Smokeless Tobacco: Never Alcohol Use Standard Drinks/Week Comments Yes 1.7 (1 standard drink = 0.6 oz pure alco hol) occasional Sex Assigned at Date Recorded Male 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 documented as of this encounter Last Filed Vital Signs Vital Sign Reading Time Taken Comments Blood Pressure 132/84 04/05/2018 3:43 PM BENZENE WORKER Pulse 80 04/05/2018 3:43 PM BENZENE WORKER Temperature - - Respiratory Rate - - Oxygen Saturation - - Inhaled Oxygen Concentration - - Weight - - Height - - Body Mass Index - - documented in this encounter Plan of Treatment Not on filedocumented as of this encounter Visit Diagnoses Diagnosis BP check - Primary Screening for hypertension documented in this encounter Care Teams Hand Assembler Relationship Specialty Start Date End Date Raghavendra Deras MD PCP - General Family Practice 10/07/13 Raghavendra eDras MD PCP - Assigned PCP 01/23/16 04/09/18 Raghavendra Deras MD Assigned PCP 01/23/16 05/14/21 documented as of this encounter
--- OUTSIDE RECORDS SUMMARY | 2021-12-08 09:35 | XMS_ITS | Encounter Summary ---
:1945 Author Organization [place] Address [address] [facility] 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
--- OUTSIDE RECORDS SUMMARY | 2021-12-08 09:35 | XMS_ITS | Encounter Summary ---
:1945 Author Organization [place] Address [address] [facility] [place] [address] Care Team Providers Name Role Phone Raghavendra Deras MD Primary Care Provider Unavailable Raghavendra Deras MD Unavailable Unavailable Reason for Visit Reason Onset Date Comments Appointment 07/11/2018 Shingrx appointment Encounter Details Date Type Department Care Team Description 07/11/2018 Telephone [facility] Raghavendra Deras Appo intment ([facility] [place] appointment) [address] [place] [address] Social History Tobacco Use Types Packs/Day Years Used Date Smoking Tobacco: Former Cigarettes 0.5 20 Quit : 02/06/1984 Smokeless Tobacco: Never Alcohol Use Standard Drinks/Week Comments Yes 1.7 (1 standard drink = 0.6 oz pure alco hol) occasional Sex Assigned at Date Recorded Male 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 We just got our shipment in and would like to know if they would like to come in now to get it. 1st shot was done 05/13 so he can come in anytime. Ariella Davidson Handle Sewer documented in this encounter Plan of Treatment Not on filedocumented as of this encounter Visit Diagnoses Not on filedocumented in this encounter Care Teams Timber Estimator Relationship Specialty Start Date End Date Raghavendra Deras MD PCP - General Family Practice 10/07/13 Raghavendra Deras MD Assigned PCP 01/23/16 05/14/21 documented as of this encounter
--- OUTSIDE RECORDS SUMMARY | 2021-12-08 09:35 | XMS_ITS | Encounter Summary ---
:1945 Author Organization [place] Address [address] 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
--- OUTSIDE RECORDS SUMMARY | 2021-12-08 09:35 | XMS_ITS | Encounter Summary ---
:1945 Author Organization [place] Address [address] [facility] [address] Care Team Providers Name Role Phone Raghavendra Deras MD Primary Care Provider Unavailable Raghavendra Deras MD Unavailable Unavailable Raghavendra Deras MD Unavailable Unavailable Encounter Details Date Type Department Care Team Description 02/07/2018 Therapy Visit [facility] Naya Faust Midl ine low back Rehabilitation Services PT pain without [place] [address] sciatica (Primary 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 CAR LOADER documented in this encounter Miscellaneous Notes Addendum Note - Naya Faust PT - 02/07/2018 1:00 PM BOX CAR LOADER Addended by: NAYA FAUST on: 03/27/2018 12:04 PM Modules accepted: Orders CAR LOADER documented in this encounter Plan of Treatment Not on filedocumented as of this encounter Procedures Procedure Name Priority Date/Time Associated Diagnosis Comme nts Z MANUAL THER Routine 02/07/2018 3:42 PM Midline low back pa in TECH,1+REGIONS,EA 15 MIN BOX CAR LOADER without sciatica ZZC THERAPEUTIC Routine 02/07/2018 3:42 PM Midline low back pa in EXERCISES BOX CAR LOADER without sciatica documented in this encounter Visit Diagnoses Diagnosis Midline low back pain without sciatica - Primary documented in this encounter Care Teams Brush Loader And Handle Attacher Relationship Specialty Start Date End Date Raghavendra Deras MD PCP - General Family Practice 10/07/13 Raghavendra Deras MD PCP - Assigned PCP 01/23/16 04/09/18 Raghavendra Deras MD Assigned PCP 01/23/16 05/14/21 documented as of this encounter
--- OUTSIDE RECORDS SUMMARY | 2021-12-08 09:35 | XMS_ITS | Encounter Summary ---
:1945 Author Organization [place] Address [address] [facility] [place] [address] Care Team Providers Name Role Phone Raghavendra Deras MD Primary Care Provider Unavailable Raghavendra Deras MD Unavailable Unavailable Raghavendra Deras MD Unavailable Unavailable Reason for Visit Reason Comments Hypertension Encounter Details Date Type Department Care Team Description 03/29/2018 Emergency [facility] Mary Weber MD Hypertension, unspecified type; [facility] Emergency Dep t EMERGENCY PHYSICIANS Atypical chest pain [address] [place], [place] [address] [facility] [address] [place] [address] [phone] (Wo rk) Social History Tobacco Use Types Packs/Day Years Used Date Smoking Tobacco: Former Cigarettes 0.5 20 Quit : 02/06/1984 Smokeless Tobacco: Never Alcohol Use Standard Drinks/Week Comments Yes 1.7 (1 standard drink = 0.6 oz pure alco hol) occasional Sex Assigned at Date Recorded Male 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 ER ENGINEER HELPER documented in this encounter Medications at Time [...] hyperplasia with Bedtime nocturia fluticasone (FLONASE) 50 [place] 1-2 sprays 1 Bottle 3 01/1108/05/2018 MCG/ACT [...] 2:57 PM CST Pt to radiology ER ENGINEER HELPER Nunu French RN - 03/29/2018 1:36 PM CST Was seen 2 days ago and diagnosed with bronchiolitis. Pain in right upper chest today for about 20 seconds. Pain free now. Cough has improved since. Patient has been taking BP at home and having high readings. ER ENGINEER HELPER Ebony Armstrong PA - 03/29/2018 1:19 PM [...] HTN Time: 1345 Vent. Rate 73 bpm. WY interval 138. QRS duration 96. QT/QTc 394/434. [...] patient and obtained history, as documented above. 1529 I reevaluated the patient and updated him [...] taking 50 mg/day. The patient will return tothe ED for any recurrence or worsening chest [...] present. Ebony Armstrong PA 03/30/18 1329 ER ENGINEER HELPER Mary Weber MD - 03/29/2018 1:19 PM [...] dose of losartan should he remain hypertensive. MAYELA and Molina discussed with patient follow up and return precautions and answered all the his questions. He v erbalized understanding and is amenable to discharge with primary follow up. My impression is: 1. Uncontrolled hypertension 2. Atypical chest pain, resolved Diagnosis ICD-10-CM 1. Hypertension, unspecified type I10 2. Atypical chest pain R07.89 Mary Weber MD 04/01/182033 ER ENGINEER HELPER documented in this encounter Plan of Treatment Not on filedocumented as of this encounter Procedures Procedure Name Priority Date/Time Associated Comments Diagnosis XR CHEST 2 VIEWS STAT 03/29/2018 2:57 PM Resul ts for this BEATER ENGINEER HELPER procedure are i n the results section. CBC WITH PLATELETS & STAT 03/29/2018 2:40 PM R esults for this DIFFERENTIAL BEATER ENGINEER HELPER procedure are i n the results section. TROPONIN I STAT 03/29/2018 2:40 PM Results f or this BEATER ENGINEER HELPER procedure are i n the results section. LIPASE STAT 03/29/2018 2:40 PM Results f or this BEATER ENGINEER HELPER procedure are i n the results section. COMPREHENSIVE STAT 03/29/2018 2:40 PM Results for this METABOLIC PANEL BEATER ENGINEER HELPER procedure ar e in the results section. EKG 12-LEAD, TRACING STAT 03/29/2018 1:45 PM R esults for this ONLY BEATER ENGINEER HELPER procedure are i n the results section. documented in this encounter Results XR Chest 2 Views (03/29/2018 2:57 PM BEATER ENGINEER HELPER) Anatomical Region Laterality Modality Chest Digital Radiography Specimen (Source) Anatomical Location Collection Method / Collectio n Time Received Time / Laterality Volume Impressions 03/29/2018 2:59 PM BEATER ENGINEER HELPER IMPRESSION: No acute cardiopulmonary abnormality. EDGARDO PRATHER MD Narrative 03/29/2018 2:59 PM BEATER ENGINEER HELPER XR CHEST 2 VW 03/29/2018 2:57 PM [...] ORDER MICHELLE Troponin I (03/29/2018 2:40 PM BEATER ENGINEER HELPER) athologist Signature Troponin I ES <0.015 0.000 - 03/29/2018 [facility] 0.045 ug/L 3:16 PM [facility] Comment: The 99th percentile for upper reference range is 0.045 ug/L. ??Troponin values in the range of 0.045 - 0.120 ug/L may b e associated with risks of adverse clinical events. Specimen Anatomical Collection Method Collection Time Receive d Time (Source) Location / / Volume Laterality Blood specimen 03/29/2018 2:40 PM 019 2:47 (specimen) BEATER ENGINEER HELPER PM BEATER ENGINEER HELPER Ebony LEMON LAB - BLOOD ORDERABLES Performing Organization Address City/State/ZIP Code Phon e Number M [place] [address] [place] [address] [address] [place] [phone] Lipase (03/29/2018 2:40 PM BEATER ENGINEER HELPER) athologist Signature Lipase 192 73 - 393 03/29/2018 [facility] U/L 3:14 PM [facility]3] Specimen Anatomical Collection Method Collection Time Receive d Time (Source) Location / / Volume Laterality Blood specimen 03/29/2018 2:40 PM 019 2:47 (specimen) BEATER ENGINEER HELPER PM BEATER ENGINEER HELPER Ebony LEMON LAB - BLOOD ORDERABLES Performing Organization Address City/[facility]/ZIP Code Phon e Number M [facility] [address] [place], [place] [address] [facility] [address] [place], [place] [address] [place] [address] Comprehensive metabolic panel (03/29/2018 2:40 PM [facility]) P athologist Signature Sodium 140 133 - 144 03/29/2018 [facility] mmol/L 3:06 PM [facility] Potassium 4.0 3.4 - 5.3 03/29/2018 [facility] mmol/L 3:06 PM [facility] Chloride 109 94 - 109 03/29/2018 [facility] mmol/L 3:06 PM [facility] Carbon Dioxide 25 20 - 32 03/29/2018 [facility] mmol/L 3:11 PM [facility] Anion Gap 6 3 - 14 03/29/2018 [facility] mmol/L 3:11 PM [facility] Glucose 85 70 - 99 03/29/2018 [facility] mg/dL 3:11 PM [facility] Urea Nitrogen 13 7 - 30 03/29/2018 [facility] mg/dL 3:11 PM [facility] Creatinine 0.98 0.66 - 03/29/2018 [facility] 1.25 mg/dL 3:11 PM [facility] GFR Estimate 76 >60 03/29/2018 [facility] mL/min/{1. 3:11 PM [facility] 73_m2} HOSPITAL Comment: Non GFR Calc Starting 01/22/2018, serum creatinine ba sed estimated GFR (eGFR) will be calculated using the Chronic Kidney Dise [facility] Epidemiology Collaboration (CKD-EPI) equation. GFR Estimate If 88 >60 mL/min/{1.73_m2} 03/29/2018 3: 11 PM [facility] Comment: GFR Calc Starting 01/22/2018, serum creatinine ba sed estimated GFR (eGFR) will be calculated using the Chronic Kidney Dise [facility] Epidemiology Collaboration (CKD-EPI) equation. Calcium 8.6 8.5 - 10.1 mg/dL 03/29/2018 3:11 PM [facility] Bilirubin Total 0.4 0.2 - 1.3 mg/dL 03/29/2018 3:14 PM [facility] Albumin 4.0 3.4 - 5.0 g/dL 03/29/2018 3:14 PM [facility] Protein Total 7.8 6.8 - 8.8 g/dL 03/29/2018 3:14 PM [facility] Alkaline Phosphatase 128 40 - 150 U/L 03/29/2018 3:14 PM [facility] ALT 39 0 - 70 U/L 03/29/2018 3:14 PM [facility] AST 30 0 - 45 U/L 03/29/2018 3:14 PM [facility] Specimen Anatomical Collection Method Collection Time Receive d Time (Source) Location / / Volume Laterality Blood specimen 03/29/2018 2:40 PM 019 2:47 (specimen) BEATER ENGINEER HELPER PM BEATER ENGINEER HELPER Ebony LEMON LAB - BLOOD ORDERABLES Performing Organization Address City/State/ZIP Code Phon e Number [place] [address] [address] [place] [address] [facility] [address] [phone] CBC with platelets differential (03/29/2018 2:40 PM [facility]) [facility] Method Time Signature WBC 4.9 4.0 - 03/29/2018 [facility] 11.0 2:53 PM [facility] 10e9/L [facility] RBC Count 4.63 4.4 - 5.9 03/29/2018 [facility] 10e12/L 2:53 PM [facility] Hemoglobin 13.4 13.3 - 03/29/2018 [facility] 17.7 g/dL 2:53 PM [facility] Hematocrit 40.7 40.0 - 03/29/2018 [facility] 53.0 % 2:53 PM [facility] MCV 88 78 - 100 03/29/2018 [facility] fl 2:53 PM [facility] MCH 28.9 26.5 - 03/29/2018 [facility] 33.0 pg 2:53 PM [facility] MCHC 32.9 31.5 - 03/29/2018 [facility] 36.5 g/dL 2:53 PM [facility] RDW 13.2 10.0 - 03/29/2018 [facility] 15.0 % 2:53 PM [facility] Platelet Count 168 150 - 450 03/29/2018 [facility] 10e9/L 2:53 PM [facility] Diff Method Automated 03/29/2018 [facility] Method 2:53 PM [facility] % Neutrophils 60.5 % 03/29/2018 [facility] 2:53 PM [facility] % Lymphocytes 31.4 % 03/29/2018 [facility] 2:53 PM [facility] % Monocytes 6.3 % 03/29/2018 [facility] 2:53 PM [facility] % Eosinophils 0.8 % 03/29/2018 [facility] 2:53 PM [facility] % Basophils 0.8 % 03/29/2018 [facility] 2:53 PM [facility] % Immature 0.2 % 03/29/2018 [facility] Granulocytes 2:53 PM [facility] Nucleated RBCs 0 0 /100 03/29/2018 [facility] 2:53 PM [facility] Absolute 3.0 1.6 - 8.3 03/29/2018 [facility] Neutrophil 10e9/L 2:53 PM [facility] Absolute 1.5 0.8 - 5.3 03/29/2018 [facility] Lymphocytes 10e9/L 2:53 PM [facility] Absolute 0.3 0.0 - 1.3 03/29/2018 [facility] Monocytes 10e9/L 2:53 PM [facility] Absolute 0.0 0.0 - 0.7 03/29/2018 [facility] Eosinophils 10e9/L 2:53 PM [facility] Absolute 0.0 0.0 - 0.2 03/29/2018 [facility] Basophils 10e9/L 2:53 PM [facility] Abs Immature 0.0 0 - 0.4 03/29/2018 [facility] Granulocytes 10e9/L 2:53 PM [facility] Absolute 0.0 03/29/2018 [facility] Nucleated RBC 2:53 PM [facility] Specimen Anatomical Collection Method Collection Time Receive d Time (Source) Location / / Volume Laterality Blood specimen 03/29/2018 2:40 PM 019 2:47 (specimen) BEATER ENGINEER HELPER PM BEATER ENGINEER HELPER Ebony LEMON LAB - BLOOD ORDERABLES Performing Organization Address City/State/ZIP Code Phon e Number M [facility] [address] [place], [place] [address] [facility] [address] [place], [place] [address], [facility] [phone] EKG 12 lead (03/29/2018 1:45 PM BEATER ENGINEER HELPER) [facility] gist Method Time Signature Interpretation ECG Click View RADIOLOGY Image link RESULTS to view waveform and result Specimen (Source) Anatomical Collection Method Collection Time Re ceived Time Location / / Volume Laterality 03/29/2018 1:45 PM BEATER ENGINEER HELPER Mary Weber MD ECG ORDERABLES Performing Organization Address City/State/ZIP Code Phon e Number RADIOLOGY RESULTS documented in this encounter Visit Diagnoses Diagnosis Hypertension, unspecified type Atypical chest pain Other chest pain documented in this encounter Care Teams Systems Test Analyst Relationship Specialty Start Date End Date Raghavendra Deras MD PCP - General Family Practice 10/07/13 Raghavendra Deras MD PCP - Assigned PCP 01/23/16 04/09/18 Raghavendra Deras MD Assigned PCP 01/23/16 05/14/21 documented as of this encounter
--- OUTSIDE RECORDS SUMMARY | 2021-12-08 09:35 | XMS_ITS | Encounter Summary ---
:1945 Author Organization [place] Address [address] [facility] [place] [address] Care Team Providers Name Role Phone Raghavendra Deras MD Primary Care Provider Unavailable Raghavendra Deras MD Unavailable Unavailable Reason for Visit Reason Comments Hypertension Imm/Inj Shingrix Encounter Details Date Type Department Care Team Description 05/13/2018 Office Visit [facility] Raghavendra Deras Essential hypertension Clinic Candy Alan MD (Primary Dx) [address] [place] [address] Social History Tobacco Use Types Packs/Day Years Used Date Smoking Tobacco: Former Cigarettes 0.5 20 Quit : 02/06/1984 Smokeless Tobacco: Never Alcohol Use Standard Drinks/Week Comments Yes 1.7 (1 standard drink = 0.6 oz pure alco hol) occasional Sex Assigned at Date Recorded Male 01/15/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 C.A.D. Maternal Uncle AL ??? Cancer - colorectal Maternal Uncle ??? Prostate Cancer Other Cousin ROS: RESP: NEGATIVE for significant cough or SOB CV: NEGATIVE for chest pain, palpitations or peripheral edema This document serves as a record of the services and decisions personally performed and made by Raghavendra Deras MD. It was created on his behalf by Radha Mobley, a trained medical technologist chemistry. The creation of this document is based on the provider's statements to the medical technologist chemistry. Radha Mobley 2:56 PM May 13, 2018 [...] in this document, created by the medical technologist chemistry for me, accurately reflects the services I personally performed and the decisions made by me. I have reviewed and approved this document for accuracy prior to leaving the patient care area. May 13, 2018 3:07 PM Raghavendra Deras MD [facility] Camilo Julio MA - 05/13/2018 2:40 [...] Signature Sodium 140 133 - 144 05/14/2018 [place] mmol/L 1:14 PM CDT [facility] Potassium 4.2 3.4 - 5.3 05/14/2018 [place] mmol/L 1:14 PM CDT [facility] Chloride 107 94 - 109 05/14/2018 [place] mmol/L 1:14 PM [facility] Carbon Dioxide 28 20 - 32 05/14/2018 [place] mmol/L 1:20 PM [facility] Anion Gap 5 3 - 14 05/14/2018 [place] mmol/L 1:20 PM [facility] Glucose 90 70 - 99 05/14/2018 [place] mg/dL 1:20 PM [facility] Urea Nitrogen 19 7 - 30 05/14/2018 [place] mg/dL 1:20 PM [facility] Creatinine 1.12 0.66 - 05/14/2018 [place] 1.25 mg/dL 1:20 PM [facility] GFR Estimate 65 >60 05/14/2018 [place] mL/min/{1. 1:20 PM [facility] 73_m2} HOSPITAL Comment: Non GFR Calc Starting 01/22/2018, serum creatinine ba sed estimated GFR (eGFR) will be calculated using the Chronic Kidney Dise [facility] Epidemiology Collaboration (CKD-EPI) equation. GFR Estimate If 75 >60 mL/min/{1.73_m2} 05/14/2018 1: 20 PM [facility] Comment: GFR Calc Starting 01/22/2018, serum creatinine ba sed estimated GFR (eGFR) will be calculated using the Chronic Kidney Dise [facility] Epidemiology Collaboration (CKD-EPI) equation. Calcium 9.2 8.5 - 10.1 mg/dL 05/14/2018 1:20 PM [facility] Specimen Anatomical Collection Method Collection Time Receive d Time (Source) Location / / Volume Laterality Blood specimen 05/13/2018 3:32 PM 019 3:33 (specimen) CDT PM CDT Raghavendra Deras MD LAB - BLOOD ORDERABLES Performing Organization Address City/State/ZIP Code Phon e Number M [facility] [address] [phone] [facility] [address] [place], [place] [address] [facility] [address] [address], [facility] [phone] documented in this encounter Visit Diagnoses Diagnosis Essential hypertension - Primary Unspecified essential hypertension documented in this encounter Care Teams Supervisor Boat Outfitting Relationship Specialty Start Date End Date Raghavendra Deras MD PCP - General Family Practice 10/07/13 Raghavendra Deras MD Assigned PCP 01/23/16 05/14/21 documented as of this encounter
--- OUTSIDE RECORDS SUMMARY | 2021-12-08 09:35 | XMS_ITS | Encounter Summary ---
:1945 Author Organization [place] Address [address] [place] [address] Care Team Providers Name Role Phone Raghavendra [...] at Date Recorded Male 01/15/2018 11:39 PM [facility] [place] documented as of this encounter Plan of Treatment Not on filedocumented as of this encounter Visit Diagnoses Not on filedocumented in this encounter Care Teams Radiagraph Operator Relationship Specialty Start Date End Date Raghavendra Deras MD PCP - General Family Practice 10/07/13 Raghavendra Deras MD Assigned PCP 01/23/16 05/14/21 documented as of this encounter
--- OUTSIDE RECORDS SUMMARY | 2021-12-08 09:35 | XMS_ITS | Encounter Summary ---
:1945 Author Organization [place] Address [address] [facility] [place] [address] Care Team Providers Name Role Phone Raghavendra Deras MD Primary Care Provider Unavailable Raghavendra Deras MD Unavailable Unavailable Reason for Visit Reason Comments Hypertension Encounter Details Date Type Department Care Team Description 04/15/2018 Office Visit [facility] Raghavendra Deras Ess[place] [address] [place] [address] Social History Tobacco Use Types Packs/Day Years Used Date Smoking Tobacco: Former Cigarettes 0.5 20 Quit : 02/06/1984 Smokeless Tobacco: Never Alcohol Use Standard Drinks/Week Comments Yes 1.7 (1 standard drink = 0.6 oz pure alco hol) occasional Sex Assigned at Date Recorded Male 01/15/2018 11:39 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 C.A.D. Maternal Uncle [place] ??? Cancer - colorectal Maternal Uncle ??? [...] behalf by Radha Mobley, a trained medical pathologist. The creation of this document is based on the provider's statements to the medical pathologist. Radha Mobley 10:17 AM April 15, 2018 [...] in this document, created by the medical pathologist for me, accurately reflects the services I personally performed and the decisions made by me. I have reviewed and approved this document for accuracy prior to leaving the patient care area. April 15, 2018 10:30 AM Raghavendra Deras MD [facility] documented in this encounter Plan of Treatment Not on filedocumented as of this encounter Visit Diagnoses Diagnosis Essential hypertension Unspecified essential hypertension documented in this encounter Care Teams Health Occupations Teacher Relationship Specialty Start Date End Date Raghavendra Deras MD PCP - General Family Practice 10/07/13 Raghavendra Deras MD Assigned PCP 01/23/16 05/14/21 documented as of this encounter
--- OUTSIDE RECORDS SUMMARY | 2021-12-08 09:35 | XMS_ITS | Encounter Summary ---
:1945 Author Organization [place] Address Pending sale to [facility] [place] [address] Care Team Providers Name Role Phone Raghavendra Deras MD Primary Care Provider Unavailable Raghavendra Deras MD Unavailable Unavailable Raghavendra Deras MD Unavailable Unavailable Reason for Visit Reason Comments Allied Health Visit Nurse only BP check Encounter Details Date Type Department Care Team Description 03/28/2018 Allied Health/Nurse Health [place] [facility] Visit Visit [facility] [place] (Nurse only BP check ) [id number] [place] [phone] Social History Tobacco Use Types Packs/Day Years Used Date Smoking Tobacco: Former Cigarettes 0.5 20 Quit : 02/06/1984 Smokeless Tobacco: Never Tobacco Cessation: Counseling Given: No Alcohol Use Standard Drinks/Week Comments Yes 1.7 (1 standard drink = 0.6 oz pure alco hol) occasional Sex Assigned at Date Recorded Male 01/15/2018 11:39 PM 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 Myriam Barrett RN, BSN IFIED FRAUD EXAMINER documented in this encounter Plan of Treatment Not on filedocumented as of this encounter Visit Diagnoses Diagnosis BP check - Primary Screening for hypertension documented in this encounter Care Teams Food And Beverage Intern Relationship Specialty Start Date End Date Raghavendra Deras MD PCP - General Family Practice 10/07/13 Raghavendra Deras MD PCP - Assigned PCP 01/23/16 04/09/18 Raghavendra Deras MD Assigned PCP 01/23/16 05/14/21 documented as of this encounter
--- OUTSIDE RECORDS SUMMARY | 2021-12-08 09:35 | XMS_ITS | Encounter Summary ---
:1945 Author Organization [place] Address [address] 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
--- OUTSIDE RECORDS SUMMARY | 2021-12-08 09:35 | XMS_ITS | Encounter Summary ---
:1945 Author Organization [place] Address [address] [facility] [place] [address] Care Team Providers Name Role Phone Raghavendra Deras MD Primary Care Provider Unavailable Raghavendra Deras MD Unavailable Unavailable Raghavendra Deras MD Unavailable Unavailable Reason for Visit Reason Onset Date Comments Refill Request 02/07/2018 Doxazosin Encounter Details Date Type Department Care Team Description 02/07/2018 Refill [facility] Raghavendra Deras Ra, Refill Request Candy SALDIVAR (Doxazosin) [address] [place] [address] Social History Tobacco Use Types Packs/Day Years Used Date Smoking Tobacco: Former Cigarettes 0.5 20 Quit : 02/06/1984 Smokeless Tobacco: Never Alcohol Use Standard Drinks/Week Comments Yes 1.7 (1 standard drink = 0.6 oz pure alco hol) occasional Sex Assigned at Date Recorded Male 01/15/2018 11:39 PM 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 For corrected amounts Janny Rodriguez RN STHETIC TECHNICIAN Telephone Encounter - Areilla Davidson - 02/08/2018 11:34 AM CST GooodJob message was sent to patient on 02/07/18. Ariella Davidson Die Reamer STHETIC TECHNICIAN Telephone Encounter - Myriam Barrett RN - 02/07/2018 2:59 PM CST Pt due for a wellness visit and labs. Please advise on how to proceed with request for mail order and local pharmacy Pt was seen for an acute issue only Myriam Barrett RN, BSN STHETIC TECHNICIAN Telephone Encounter - Mag Garcia - 02/07/2018 [...] also need 1 week prescription sent to [facility] in [place] as mail order wont arrivebefore he runs [...] is 18 years of age or older STHETIC TECHNICIAN Addendum Note - Janny Rodriguez RN - 02/07/2018 11:11 AM ANAESTHETIC TECHNICIAN Addended by: JANNY RODRIGUEZ on: 02/09/2018 10:57 AM Modules accepted: Orders STHETIC TECHNICIAN documented in this encounter Plan of Treatment Not on filedocumented as of this encounter Visit Diagnoses Diagnosis Hypertension goal BP (blood pressure) < 140/90 Unspecified essential hypertension documented in this encounter Care Teams Customer Marketing Manager Relationship Specialty Start Date End Date Raghavendra Deras MD PCP - General Family Practice 10/07/13 Raghavendra Deras MD PCP - Assigned PCP 01/23/16 04/09/18 Raghavendra Deras MD Assigned PCP 01/23/16 05/14/21 documented as of this encounter
--- OUTSIDE RECORDS SUMMARY | 2021-12-08 09:35 | XMS_ITS | Encounter Summary ---
:1945 Author Organization [place] Address [address] [facility] [place] [address] Care Team Providers Name Role Phone Raghavendra [...] at Date Recorded Male 01/15/2018 11:39 PM STUDENT RECORDS SPECIALIST documented as of this encounter Plan of Treatment Not on filedocumented as of this encounter Visit Diagnoses Not on filedocumented in this encounter Care Teams Marine Structural Designer Relationship Specialty Start Date End Date Raghavendra Deras MD PCP - General Family Practice 10/07/13 Raghavendra Deras MD Assigned PCP 01/23/16 05/14/21 documented as of this encounter
--- OUTSIDE RECORDS SUMMARY | 2021-12-08 09:35 | XMS_ITS | Encounter Summary ---
:1945 Author Organization [place] Address [address] [facility] [place] [address] Care Team Providers Name Role Phone Raghavendra Deras MD Primary Care Provider Unavailable Raghavendra Deras MD Unavailable Unavailable Raghavendra Deras MD Unavailable Unavailable Reason for Visit Reason Comments Hypertension Encounter Details Date Type Department Care Team Description 04/02/2018 Office Visit [facility] Raghavendra Deras Essential hypertension Clinic Candy Alan MD (Primary Dx) [address] [place] [address] Social History Tobacco Use Types Packs/Day Years Used Date Smoking Tobacco: Former Cigarettes 0.5 20 Quit : 02/06/1984 Smokeless Tobacco: Never Alcohol Use Standard Drinks/Week Comments Yes 1.7 (1 standard drink = 0.6 oz pure alco hol) occasional Sex Assigned at Date Recorded Male 01/15/2018 11:39 PM 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 documented as of this encounter Last Filed Vital Signs Vital Sign Reading Time Taken Comments Blood Pressure 168/88 04/02/2018 11:58 AM 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 Pulse 92 04/02/2018 11:03 AM 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 Temperature 37 ??C (98.6 ??F) 04/02/2018 11:03 AM 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 Respiratory Rate 18 04/02/2018 11:03 AM 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 Oxygen Saturation 96% 04/02/2018 11:03 AM 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 Inhaled Oxygen Concentration - - Weight 96.6 kg (213 lb) 04/02/2018 11:03 AM 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 Height 175.3 cm (5' 9) 04/02/2018 11:03 AM 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 Body Mass Index 31.45 04/02/2018 11:03 AM 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 documented in this encounter Progress Notes Raghavendra [...] his behalf by Radha Mobley, a trained emergency medical services coordinator. The creation of this document is based on the provider's statements to the emergency medical services coordinator. Radha Mobley 11:51 AM April 02, 2018 [...] information in this document, created by the emergency medical services coordinator for me, accurately reflects the services I personally performed and the decisions made by me. I have reviewed and approved this document for accuracy prior to leaving the patient care area. April 02, 2018 12:05 PM Raghavendra Deras MD [facility] OMER FACILITIES SUPERVISOR documented in this encounter Plan of Treatment Not on filedocumented as of this encounter Visit Diagnoses Diagnosis Essential hypertension - Primary Unspecified essential hypertension documented in this encounter Care Teams Community Assistant Relationship Specialty Start Date End Date Raghavendra Deras MD PCP - General Family Practice 10/07/13 Raghavendra Deras MD PCP - Assigned PCP 01/23/16 04/09/18 Raghavendra Deras MD Assigned PCP 01/23/16 05/14/21 documented as of this encounter
--- OUTSIDE RECORDS SUMMARY | 2021-12-08 09:35 | XMS_ITS | Encounter Summary ---
:1945 Author Organization [place] Address [facility] [place] [address] Care Team Providers Name Role Phone Raghavendra Deras MD Primary Care Provider Unavailable Raghavendra Deras MD Unavailable Unavailable Raghavendra Deras MD Unavailable Unavailable Reason for Referral Consultation - Closed Specialty Diagnoses / Procedures Referred By Contact Refer red To Contact Diagnoses Hoarseness of voice Raghavendra Deras MD [facility] [address] [place] [address] Referral ID Status Reason Start Date Expiration Date Visits Requ ested Visits Authorized [id number] Closed 01/09/2018 01/09/2019 1 1 AM Physical Therapy - Closed Specialty Diagnoses / Procedures Referred By Contact Refer red To Contact Diagnoses Midline low back pain without sciatica, [place] [address] [place] [address] Referral ID Status Reason Start Date Expiration Date Visits Requ ested Visits Authorized [id number] Closed 01/09/2018 01/09/2019 1 1 [facility] Diagnostic Imaging XR - Closed Specialty Diagnoses / Procedures Referred By Contact Refer red To Contact Diagnoses Midline low back pain without sciatica, unspecified chronicity Raghavendra Deras MD Procedures XR Lumbar Spine 2/3 Views [address] [place] [address] Referral ID Status Reason Start Date Expiration Date Visits Requ ested Visits Authorized [id number] Closed 01/09/2018 01/09/2019 1 1 [facility] Reason for Visit Reason Comments Pain neck pain is new and back pa in is chronic, have sharp pain, taking Ibuprofen Encounter Details Date Type Department Care Team Description 01/09/2018 Office Visit [facility] Raghavendra Midline l ow back pain without sciatica, unspecified chronicity (Primary Dx); Clinic [place] MD [place] Hoarseness of voice [address] [place] [address] Social History Tobacco Use Types Packs/Day Years Used Date Smoking Tobacco: Former Cigarettes 0.5 20 Quit : 02/06/1984 Smokeless Tobacco: Never Alcohol Use Standard Drinks/Week Comments Yes 1.7 (1 standard drink = 0.6 oz pure alco hol) occasional Sex Assigned at Date Recorded Male 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 documented as of this encounter Last Filed Vital Signs Vital Sign Reading Time Taken Comments Blood Pressure 124/74 01/09/2018 10:41 AM [facility] Pulse 69 01/09/2018 10:41 AM [facility] Temperature 36.6 ??C (97.9 ??F) 01/09/2018 10:41 AM [facility] Respiratory Rate 16 01/09/2018 10:41 AM [facility] Oxygen Saturation 96% 01/09/2018 10:41 AM [facility] Inhaled Oxygen Concentration - - Weight 95.7 kg (211 lb) 01/09/2018 10:41 AM [facility] Height 175.3 cm (5' 9) 01/09/2018 10:41 AM [facility] Body Mass Index 31.16 01/09/2018 10:41 AM [facility] documented in this encounter Progress Notes Raghavendra Deras MD - 01/09/2018 10:40 AM CST SUBJECTIVE: Terry Montero is a 72 year old male who presents to clinic today for the following health issues: Patient with history of spondylolisthesis. He reports intermittent low back pain, which started year. Occasionally, he feels an electric shock lasting [...] his behalf by Radha Mobley, a trained nuclear medical technologist. The creation of this document is based on the provider's statements to the nuclear medical technologist. Radha Mobley 10:51 AM January 09, 2018 [...] attention to correct posture; stop aggravating activities. [id number] pain medications for short term symptom control [...] information in this document, created by the nuclear medical technologist for me, accurately reflects the services I personally performed and the decisions made by me. I have reviewed and approved this document for accuracy prior to leaving the patient care area. January 09, 2018 11:33 AM Raghavendra Deras MD [facility] documented in this encounter Plan of Treatment [...] Lumbar Spine 2/3 Views (01/09/2018 11:11 AM [facility]) Anatomical Region Laterality Modality Spine, T-spine, L-spine, Abdomen/Pelvis Computed Radiography Specimen (Source) Anatomical Location Collection Method / Collectio n Time Received Time / Laterality Volume Impressions 01/10/2018 7:37 AM [facility] IMPRESSION: Degenerative change, stable in comparison with 2016. AWAIS PRATHER MD Narrative 01/10/2018 7:37 AM [facility] XR LUMBAR SPINE 2-3 VIEWS 01/09/2018 11:11 [...] chronicity documented in this encounter Care Teams Research Administrator Relationship Specialty Start Date End Date Raghavendra Deras MD PCP - General Family Practice 10/07/13 Raghavendra Deras MD PCP - Assigned PCP 01/23/16 04/09/18 Raghavendra Deras MD Assigned PCP 01/23/16 05/14/21 documented as of this encounter
--- OUTSIDE RECORDS SUMMARY | 2021-12-08 09:35 | XMS_ITS | Encounter Summary ---
:1945 Author Organization [place] Address [address] [facility] [place] [address] Care Team Providers Name Role Phone Raghavendra Deras MD Primary Care Provider Unavailable Raghavendra Deras MD Unavailable Unavailable Raghavendra Deras MD Unavailable Unavailable Reason for Visit Reason Onset Date Comments Nurse Advice Line 03/29/2018 BP Encounter Details Date Type Department Care Team Description 03/29/2018 Telephone [facility] Raghavendra Deras Nurs e Advice Line (BP) Clinic Candy [facility] [address] [place] [address] Social History Tobacco Use Types Packs/Day Years Used Date Smoking Tobacco: Former Cigarettes 0.5 20 Quit : 02/06/1984 Smokeless Tobacco: Never Alcohol Use Standard Drinks/Week Comments Yes 1.7 (1 standard drink = 0.6 oz pure alco hol) occasional Sex Assigned at Date Recorded Male 01/15/2018 11:39 PM QUALITY CONTROL ANALYST documented as of this encounter Miscellaneous [...] time with concerns. Myriam Barrett RN, BSN ITY CONTROL ANALYST Telephone Encounter - Barbie Amaro - 03/29/2018 11:28 AM CST BP was high during his visit earlier in the week. Checked from home and his BP is still high and would like to talk to a nurse. Barbie Amaro [facility] - TC/FD 03/29/2018 11:29 AM ITY CONTROL ANALYST documented in this encounter Plan of Treatment Not on filedocumented as of this encounter Visit Diagnoses Not on filedocumented in this encounter Care Teams Link Trainer Relationship Specialty Start Date End Date Raghavendra Deras MD PCP - General Family Practice 10/07/13 Raghavendra Deras MD PCP - Assigned PCP 01/23/16 04/09/18 Raghavendra Deras MD Assigned PCP 01/23/16 05/14/21 documented as of this encounter
--- OUTSIDE RECORDS SUMMARY | 2021-12-08 09:36 | XMS_ITS | Encounter Summary ---
:1945 Author Organization [place] Address [address] [facility] [place] [address] Care Team Providers Name Role Phone Raghavendra [...] Department Care Team Description 07/07/2017 Office Visit [facility] Urgent Tyler Calderon, Cough (Primary Dx) Care Candy SALDIVAR [address] [address] [facility] [place] [address] [place], [place] [phone] [address] Social History Tobacco Use Types Packs/Day Years Used Date Smoking Tobacco: Former Cigarettes 0.5 20 Quit : 02/06/1984 Smokeless Tobacco: Never Alcohol Use Standard Drinks/Week Comments Yes 1.7 (1 standard drink = 0.6 oz pure alco hol) occasional Sex Assigned at Date Recorded Male 01/15/2018 11:39 PM 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 He is an established patient of [facility]. Review of Systems Past Medical History: Diagnosis [...] capsule ??? fluticasone (FLONASE) 50 MCG/ACT spray [place] 1-2 sprays into both nostrils daily 1 [...] Primary documented in this encounter Care Teams Human Resources Department Supervisor Relationship Specialty Start Date End Date Raghavendra Deras MD PCP - General Family Practice 10/07/13 Raghavendra Deras MD PCP - Assigned PCP 01/23/16 04/09/18 Raghavendra Deras MD Assigned PCP 01/23/16 05/14/21 documented as of this encounter
--- OUTSIDE RECORDS SUMMARY | 2021-12-08 09:36 | XMS_ITS | Encounter Summary ---
:1945 Author Organization [place] Address [address] [place] [address] Care Team Providers Name Role Phone Raghavendra Deras MD Primary Care Provider Unavailable Raghavendra Deras MD Unavailable Unavailable Raghavendra Deras MD Unavailable Unavailable Reason for Visit Reason Comments Medication Refill losartan Encounter Details Date Type Department Care Team Description 01/22/2017 Refill [facility] Raghavendra Deras Ra, Medication Refill Candy SALDIVAR (losartan) [address] [place] [address] Social History Tobacco Use Types Packs/Day Years Used Date Smoking Tobacco: Former Cigarettes 0.5 20 Quit : 02/06/1984 Smokeless Tobacco: Never Alcohol Use Standard Drinks/Week Comments Yes 1.7 (1 standard drink = 0.6 oz pure alco hol) occasional Sex Assigned at Date Recorded Male 01/15/2018 11:39 PM 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 States he will call back to schedule when he has his calendar. Myriam Barrett RN, BSN NG PULLER Telephone Encounter - Wade Wiggins - 01/22/2017 1:17 PM CST [place] 11/01/2016 NG PULLER Telephone Encounter - Janny Rodriguez RN - 01/22/2017 1:14 PM CST LM needs yearly PX Janny Rodriguez RN NG PULLER documented in this encounter Plan of Treatment Not on filedocumented as of this encounter Visit Diagnoses Diagnosis Hypertension goal BP (blood pressure) < 140/90 Unspecified essential hypertension documented in this encounter Care Teams Mechanical Process Engineer Relationship Specialty Start Date End Date Raghavendra Deras MD PCP - General Family Practice 10/07/13 Raghavendra Deras MD PCP - Assigned PCP 01/23/16 04/09/18 Raghavendra Deras MD Assigned PCP 01/23/16 05/14/21 documented as of this encounter
--- OUTSIDE RECORDS SUMMARY | 2021-12-08 09:36 | XMS_ITS | Encounter Summary ---
:1945 Author Organization [place] Address [address] [facility] [place] [address] Care Team Providers Name Role Phone Raghavendra Deras MD Primary Care Provider Unavailable Reason for Referral SOTO Physical Therapy - Closed Specialty Diagnoses / Procedures Referred By Contact Refer red To Contact Diagnoses Chronic left-sided low back pain without sciatica Artis Thrasher DO [facility] [address] [place] [address] [address] [facility] [place] [address] Phone: [phone] Referral ID Status Reason Start Date Expiration Date Visits Requ ested Visits Authorized [id number] Closed 10/08/2015 10/07/2016 1 1 Reason for Visit Reason Comments Musculoskeletal Problem low back pain Encounter Details Date Type Department Care Team Description 10/06/2015 Office Visit [facility] Artis Thrasher Chronic le ft-sided low back pain without sciatica (Primary Dx); Sports Medicine DO Javier Spondylolisthesis of lumbar region; [facility] [address] Lumbar degenerative disc disease [address] [place], [place] [address] [address] [place] [address] Social History Tobacco Use Types Packs/Day Years Used Date Smoking Tobacco: Former Cigarettes 0.5 20 Quit : 02/06/1984 Smokeless Tobacco: Never Alcohol Use Standard Drinks/Week Comments Yes 1.7 (1 standard drink = 0.6 oz pure alco hol) occasional Sex Assigned at Date Recorded Male 01/15/2018 11:39 PM CLERICAL METHODS ANALYST documented as of this encounter Last [...] documented in this encounter Patient Instructions Patient InstructionsAddisNaun coppola - 10/06/2015 11:40 AM CDT We addressed the following today: 1. Left low back pain without radiation 2. Lumbar spondylolisthesis Activity modification as discussed Physical therapy: [facility] - [phone] Topical Treatments: Ice or heat Over the counter medication: Acetaminophen (Tylenol) maximum of 3000 mg per day Follow-up as needed for further evaluation/medical care. Instructed to follow-up if change of symptoms arise (sooner if needed; call direct clinic number [[phone]] at any time with questions or concerns). documented in this encounter Progress Notes Artis Thrasher DO - 10/06/2015 10:46 AM CDT [facility] Visit s [...] counseling the patient with total time spent [id number] with the patient being 15 minutes. Artis Thrasher DO, [facility] Disclaimer: This [...] behalf by Cornell Montejo, a trained medical specialist. The creation ofthis record is based on [...] Name Type Priority Associated Diagnoses Order S maggie SOTO PT, HAND, AND Referral Routine Chronic [...] within normal limits. ELIZABETH PIRES MD Artis Javier Thrasher DO [facility] ORDER MICHELLE documented in this encounter Visit Diagnoses Diagnosis Chronic left-sided low back pain without sciatica - Primary Spondylolisthesis of lumbar region Acquired spondylolisthesis Lumbar degenerative disc disease Degeneration of lumbar or lumbosacral in tervertebral disc Chronic left-sided low back pain without sciatica documented in this encounter Care Teams Delivery Rn Relationship Specialty Start Date End Date Raghavendra Deras MD PCP - General Family Practice 10/07/13 documented as of this encounter
--- OUTSIDE RECORDS SUMMARY | 2021-12-08 09:36 | XMS_ITS | Encounter Summary ---
:1945 Author Organization [place] Address [address] [place] [address] Care Team Providers Name Role Phone Raghavendra Deras MD Primary Care Provider Unavailable Raghavendra Deras MD Unavailable Unavailable Raghavendra Deras MD Unavailable Unavailable Reason for Visit Reason Comments Abdominal Pain Nausea, Vomiting, & Diarrhea Encounter Details Date Type Department Care Team Description 02/09/2017 Emergency [facility] Dillan Faulkner V omiting and diarrhea; [facility] Emergency Dep t MD Abdominal pain, generalized [address] [facility] [place] [address] [address] [facility] [phone] [place], [place] [address] (Wo rk) Social History Tobacco Use Types Packs/Day Years Used Date Smoking Tobacco: Former Cigarettes 0.5 20 Quit : 02/06/1984 Smokeless Tobacco: Never Alcohol Use Standard Drinks/Week Comments Yes 1.7 (1 standard drink = 0.6 oz pure alco hol) occasional Sex Assigned at Date Recorded Male 01/15/2018 11:39 PM 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53 02/09/2017 8:46 AM 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 PROFESSIONAL documented in this encounter Discharge Instructions Discharge Aniya Wilde PA-C - 02/09/2017 12:50 PM 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 PROFESSIONAL *Drink plenty of fluids and advance diet slowly. *Take medications as prescribed. Zofran for nausea. Frankfort for abdominal pain. Continue your current medications. [...] as recommended by your pharmacist. The [place] [employer]ution [employer] has additional information on medication disposal: [email or web address]. Many prescription pain medications contain Tylenol?? (acetaminophen), including Vicodin??, Tylenol #3??, Frank[place]??, Lortab??, and Percocet??. You should not take [...] can be used to keep you regular. NICAL SUPPORT PROFESSIONAL documented in this encounter Medications at Time [...] (blood pressure) < 140/90 fluticasone (FLONASE) 50 [place] 1-2 sprays 1 Bottle 3 01/1108/05/2018 MCG/ACT [...] family members also had similar symptoms. Pain 11/14. 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 Aniya Apple PA-C - 02/09/2017 8:38 AM [...] IV 1015 Morphine 4 mg IV 1200 Frankfort 5-325 mg 2 tablets oral 1205 Zofran [...] ED. Discharged home with short course of [place] for pain and Zofran. Opioid precautions discussed [...] 02/09/2017 to document services personally performed by Aniay Caputo PA-C based on my observations and the provider's statements to me. [facility] Aniya Caputo PA-C 02/09/17 1308 NICAL SUPPORT PROFESSIONAL Associated attestation - Dillan Faulkner MD - 02/09/2017 3:53 PM 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 PROFESSIONAL The documentation recorded by the scribe accurately [...] Faulkner MD [facility] Emergency Department documented in this encounter Plan of Treatment Not on filedocumented as of this encounter Procedures Procedure Name Priority Date/Time Associated Comments Diagnosis CT ABDOMEN PELVIS W STAT 02/09/2017 11:29 Resu lts for this CONTRAST AM 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 PROFESSIONAL procedure are i n the results section. CBC WITH PLATELETS & STAT 02/09/2017 9:17 AM R esults for this DIFFERENTIAL 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 PROFESSIONAL procedure are i n the results section. COMPREHENSIVE STAT 02/09/2017 9:17 AM Results for this METABOLIC PANEL 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 PROFESSIONAL procedure ar e in the results section. documented in this encounter Results CT Abdomen Pelvis w Contrast (02/09/2017 11:29 AM 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 PROFESSIONAL) Anatomical Region Laterality Modality Abdomen/Pelvis, SUBRAD CT BODY, UMP CT ABDOMEN PELVIS, Computed Tomography RAD CT Specimen (Source) Anatomical Location Collection Method / Collectio n Time Received Time / Laterality Volume Impressions 02/09/2017 11:47 AM 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 PROFESSIONAL IMPRESSION: 1. No acute findings in abdomen or pelvi s. 2. Sigmoid diverticulosis without eviden ce of diverticulitis. 3. Mildly enlarged prostate, unchanged. ELLY TRACY DO Narrative 02/09/2017 11: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ESSIONAL [address] ABDOMEN AND PELVIS WITH CONTRAST ?? [...] in bilateral L5 spondylolysis. Procedure Note Elly Tracy DO - 2017 CT ABDOMEN AND PELVIS WITH [...] (ABNORMAL) Comprehensive metabolic panel (02/09/2017 9:17 AM [facility]) Analysis Performed At Patho logist Time Signature Sodium 139 133 - 144 02/09/2017 [facility] mmol/L 10:03 AM [facility] Potassium 3.5 3.4 - 5.3 02/09/2017 [facility] mmol/L 10:03 AM [facility] Chloride 106 94 - 109 02/09/2017 [facility] mmol/L 10:03 AM [facility] Carbon Dioxide 24 20 - 32 02/09/2017 [facility] mmol/L 10:03 AM [facility] Anion Gap 9 3 - 14 02/09/2017 [facility] mmol/L 10:03 AM [facility] Glucose 114 (H) 70 - 99 02/09/2017 [facility] mg/dL 10:03 AM [facility] Urea Nitrogen 31 (H) 7 - 30 02/09/2017 [facility] mg/dL 10:03 AM [facility] Creatinine 1.30 (H) 0.66 - 02/09/2017 [facility] 1.25 mg/dL 10:03 AM [facility] GFR Estimate 54 (L) >60 02/09/2017 [facility] mL/min/1.7 10:[address] Comment: Non GFR Calc GFR Estimate If 66 >60 mL/min/1.7m2 02/09/2017 10:03 AM [facility] Comment: GFR Calc Calcium 9.0 8.5 - 10.1 mg/dL 02/09/2017 10:03 AM LEANDRA RVCHARLI [facility] Bilirubin Total 1.1 0.2 - 1.3 mg/dL 02/09/2017 10:03 A [facility] Albumin 4.1 3.4 - 5.0 g/dL 02/09/2017 10:03 AM YULIANA AUGUSTIN [facility] Protein Total 7.8 6.8 - 8.8 g/dL 02/09/2017 10:03 AM [facility] Alkaline Phosphatase 108 40 - 150 U/L 02/09/2017 10:03 AM [facility] ALT 56 0 - 70 U/L 02/09/2017 10:03 AM [facility] AST 42 0 - 45 U/L 02/09/2017 10:03 AM [facility] Specimen Anatomical Collection Method Collection Time Receive d Time (Source) Location / / Volume Laterality Blood specimen 02/09/2017 9:17 AM 018 9:33 (specimen) 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 PROFESSIONAL AM 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 PROFESSIONAL Aniya Carrasquillo PA-C LAB - BLOOD ORDERABLES Performing Organization Address City/State/ZIP Code Phon e Number [place] [address] [address] [place] [address] [facility] [address] [phone] (ABNORMAL) CBC + differential (02/09/2017 9:17 AM [facility]) [facility] gist Method Time Signature WBC 7.1 4.0 - 02/09/2017 [facility] 11.0 9:38 AM [facility] 10e9/L [facility] RBC Count 5.05 4.4 - 5.9 02/09/2017 [facility] 10e12/L 9:38 AM [facility] Hemoglobin 14.9 13.3 - 02/09/2017 [facility] 17.7 g/dL 9:38 AM [facility] Hematocrit 44.1 40.0 - 02/09/2017 [facility] 53.0 % 9:38 AM [facility] MCV 87 78 - 100 02/09/2017 [facility] fl 9:38 AM [facility] MCH 29.5 26.5 - 02/09/2017 [facility] 33.0 pg 9:38 AM [facility] MCHC 33.8 31.5 - 02/09/2017 [facility] 36.5 g/dL 9:38 AM [facility] RDW 13.2 10.0 - 02/09/2017 [facility] 15.0 % 9:38 AM [facility] Platelet Count 164 150 - 450 02/09/2017 [facility] 10e9/L 9:38 AM [facility] Diff Method Automated 02/09/2017 [facility] Method 9:38 AM [facility] % Neutrophils 76.7 % 02/09/2017 [facility] 9:38 AM [facility] % Lymphocytes 9.4 % 02/09/2017 [facility] 9:38 AM [facility] % Monocytes 12.4 % 02/09/2017 [facility] 9:38 AM [facility] % Eosinophils 0.8 % 02/09/2017 [facility] 9:38 AM [facility] % Basophils 0.1 % 02/09/2017 [facility] 9:38 AM [facility] % Immature 0.6 % 02/09/2017 [facility] Granulocytes 9:38 AM [facility] Nucleated RBCs 0 0 /100 02/09/2017 [facility] 9:38 AM [facility] Absolute 5.5 1.6 - 8.3 02/09/2017 [facility] Neutrophil 10e9/L 9:38 AM [facility] Absolute 0.7 (L) 0.8 - 5.3 02/09/2017 [facility] Lymphocytes 10e9/L 9:38 AM [facility] Absolute 0.9 0.0 - 1.3 02/09/2017 [facility] Monocytes 10e9/L 9:38 AM [facility] Absolute 0.1 0.0 - 0.7 02/09/2017 [facility] Eosinophils 10e9/L 9:38 AM [facility] Absolute 0.0 0.0 - 0.2 02/09/2017 [facility] Basophils 10e9/L 9:38 AM [facility] Abs Immature 0.0 0 - 0.4 02/09/2017 [facility] Granulocytes 10e9/L 9:38 AM [facility] Absolute 0.0 02/09/2017 [facility] Nucleated RBC 9:38 AM [facility] Specimen Anatomical Collection Method Collection Time Receive d Time (Source) Location / / Volume Laterality Blood specimen 02/09/2017 9:17 AM 018 9:33 (specimen) 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 PROFESSIONAL AM 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 PROFESSIONAL Aniya Carrasquillo PA-C LAB - BLOOD ORDERABLES Performing Organization Address City/State/ZIP Code Phon e Number M [facility] [address] [place], [place] [address] [facility] [address] [phone] documented in this encounter Visit Diagnoses Diagnosis Vomiting and diarrhea Vomiting alone Abdominal pain, generalized documented in this encounter Administered Medications Inactive Administered Medications - up to 3 most recent administrations Medication Order MAR Action Action Date Dose Rate Site 0.9% sodium chloride BOLUS New Bag 02/09/2017 9:24 AM 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 PROFESSIONAL 1,000 mLs 999 mL/hr Intravenous, 1,000 mL, ONCE, On Sun02/09/17 at 0917, For 1 dose 0.9% sodium chloride BOLUS New Bag 02/09/2017 11:23 AM 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 PROFESSIONAL 65 mLs Intravenous, 1,000 mL, ONCE, On Sun02/09/17 at 1123, For 1 dose HYDROcodone-acetaminophen (NORCO) 5-325 Given 02/09/2017 12: 00 PM 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 PROFESSIONAL 2 tablets MG per tablet 2 tablet 2 tablet, Oral, ONCE, On Sun02/09/17 at 1154, For 1 dose, Maximum acetaminophen dose from all sources= 75 mg/kg/day not to exceed 4 grams iopamidol (ISOVUE-370) solution 500 mL Given 02/09/2017 11:23 AM 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 PROFESSIONAL 100 mLs 500 mL, Intravenous, ONCE, On Sun02/09/17 at 1123, For 1 dose morphine (PF) injection 4 mg Given 02/09/2017 10:53 AM 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 PROFESSIONAL 4 mg 4 mg, Intravenous, EVERY 15 MIN PRN, moderate to severe pain, Starting on Sun02/09/17 at 0931, For 3 doses, For ordered doses up to 15 mg give IV Push undiluted over 4-5 minutes. Given 02/09/2017 10:15 AM 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 PROFESSIONAL 4 mg Given 02/09/2017 9:51 AM 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 PROFESSIONAL 4 mg ondansetron (ZOFRAN) 2 MG/ML injection Starting on Sun02/09/17 at 1203, For 1 dose, Analia Flores : cabinet override Irritant. For ordered doses up to 4 mg, give IV Push undiluted over 2-5 minutes. ondansetron (ZOFRAN) injection 4 mg Given 02/09/2017 9:25 AM 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 PROFESSIONAL 4 mg 4 mg, Intravenous, ONCE, Administer over 2-5 Minutes, On Sun02/09/17 at 0917, For 1 dose, Irritant. For ordered doses up to 4 mg, give IV Push undiluted over 2-5 minutes. ondansetron (ZOFRAN) injection 4 mg Given 02/09/2017 12:05 PM 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 PROFESSIONAL 4 mg 4 mg, Intravenous, EVERY 30 MIN PRN, nausea, vomiting, Administer over 2-5 Minutes, Starting on Sun02/09/17 at 1204, For 3 doses, May repeat in 30 minutes as needed, up to 3 doses. Irritant. For ordered doses up to 4 mg, give IV Push undiluted over 2-5 minutes. ondansetron (ZOFRAN-ODT) ODT tab 4 mg Given 02/09/2017 2:05 PM 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 PROFESSIONAL 4 mg 4 mg, Oral, ONCE, On [...] Recently Administered Medications Times are shown in 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 PROFESSIONAL. Scheduled Medication Order 02/07/2017 02/08/2017 02/09/2017 0.9% [...] - Comment: bulk) 500 mL, Intravenous, ONCE, Sun02/09/17 at 1123, For 1 dose ondansetron (ZOFRAN) injection 4 mg (COMPLETED) 0925 (Given - Provider: Dalia Manuel RN) 4 mg, Intravenous, ONCE, Administer over 2-5 Minutes, 02/09/17 at 0917, For 1 dose, Irritant. For ordered doses up to 4 mg, give IV Push undiluted over 2-5 minutes. ondansetron (ZOFRAN-ODT) ODT tab 4 mg (COMPLETED) 1405 (Given - Provider: Dalia Manuel RN) 4 mg, Oral, ONCE, 02/09/17 at 1354, Fo r 1 dose, With [...] Dalia Manuel RN)1015 (Given - Provider: Dalia Manuel RN)1053 (Given - Provider: Dalia Manuel RN) 4 mg, Intravenous, EVERY 15 MIN PRN, mod erate to severe pain, Starting 02/09/17 at 0931, For 3 doses, For ordered [...] minutes. documented in this encounter Care Teams Lip Reading Teacher Relationship Specialty Start Date End Date Raghavendra Deras MD PCP - General Family Practice 10/07/13 Raghavendra Deras MD PCP - Assigned PCP 01/23/16 04/09/18 Raghavendra Deras MD Assigned PCP 01/23/16 05/14/21 documented as of this encounter
--- OUTSIDE RECORDS SUMMARY | 2021-12-08 09:36 | XMS_ITS | Encounter Summary ---
:1945 Author Organization [place] Address [address] [facility] [place] [address] Care Team Providers Name Role Phone Raghavendra Deras MD Primary Care Provider Unavailable Raghavendra Deras MD Unavailable Unavailable Raghavendra Deras MD Unavailable Unavailable Reason for Visit Reason Comments RECHECK abdominal pain/discomfort Encounter Details Date Type Department Care Team Description 05/22/2016 Office Visit [facility] Raghavendra Deras Abdominal pain, Clinic Candy Alan MD generalized (Primary [id number] [place] [address] Social History Tobacco Use Types Packs/Day Years Used Date Smoking Tobacco: Former Cigarettes 0.5 20 Quit : 02/06/1984 Smokeless Tobacco: Never Alcohol Use Standard Drinks/Week Comments Yes 1.7 (1 standard drink = 0.6 oz pure alco hol) occasional Sex Assigned at Date Recorded Male 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 Last [...] to Microscopic and Culture Raghavendra Deras MD [facility] documented in this encounter Nursing Notes [...] Microscopic and Culture (05/22/2016 11:55 AM CDT) [facility] Method Time Signature Color Urine Yellow [facility] Appearance Urine Clear [facility] Glucose Urine Negative NEG mg/dL [facility] Bilirubin Urine Negative NEG [facility] Ketones Urine Negative NEG mg/dL [facility] Specific [place] 1.015 1.003 - [place] Urine 1.035 [facility] Blood Urine Negative NEG [facility] pH Urine 5.5 5.0 - 7.0 [facility] Protein Albumin Negative NEG mg/dL [facility] Urobilinogen 0.2 0.2 - 1.0 [place] Urine EU/dL [facility] Nitrite Urine Negative NEG [facility] Leukocyte Negative NEG [place] Esterase Urine [facility] Source Midstream [place] Urine [facility] Specimen Anatomical Collection Method Collection Time Receive d Time (Source) Location / / Volume Laterality Urine specimen 05/22/2016 11:55 7 (specimen) AM CDT 12:00 PM CDT Raghavendra Deras MD LAB - URINE ORDERABLES Performing Organization Address City/State/ZIP Code Phon e Number [facility] [id number] [place] [address] documented in this encounter Visit Diagnoses Diagnosis Abdominal pain, generalized - Primary Abdominal pain, generalized documented in this encounter Care Teams Ammonia Refrigeration Technician Relationship Specialty Start Date End Date Raghavendra Deras MD PCP - General Family Practice 10/07/13 Raghavendra Deras MD PCP - Assigned PCP 01/23/16 04/09/18 Raghavendra Deras MD Assigned PCP 01/23/16 05/14/21 documented as of this encounter
--- OUTSIDE RECORDS SUMMARY | 2021-12-08 09:36 | XMS_ITS | Encounter Summary ---
:1945 Author Organization [place] Address [address] [facility] [place] [address] Care Team Providers Name Role Phone Raghavendra Deras MD Primary Care Provider Unavailable Raghavendra Deras MD Unavailable Unavailable Raghavendra Deras MD Unavailable Unavailable Reason for Visit Reason Onset Date Comments Refill Request 11/22/2016 omeprazole Encounter Details Date Type Department Care Team Description 11/22/2016 Refill [facility] Raghavendra Deras Ra, Refill Request Candy SALDIVAR (omeprazole) [address] [place] [address] Social History Tobacco Use Types Packs/Day Years Used Date Smoking Tobacco: Former Cigarettes 0.5 20 Quit : 02/06/1984 Smokeless Tobacco: Never Alcohol Use Standard Drinks/Week Comments Yes 1.7 (1 standard drink = 0.6 oz pure alco hol) occasional Sex Assigned at Date Recorded Male 01/15/2018 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 Janny Rodriguez RN documented in this encounter Plan of Treatment Not on filedocumented as of this encounter Visit Diagnoses Diagnosis History of peptic ulcer disease Personal history of peptic ulcer disease Hypertension goal BP (blood pressure) < 140/90 Unspecified essential hypertension documented in this encounter Care Teams Emergency Communications Dispatcher Relationship Specialty Start Date End Date Raghavendra Deras MD PCP - General Family Practice 10/07/13 Raghavendra Deras MD PCP - Assigned PCP 01/23/16 04/09/18 Raghavendra Deras MD Assigned PCP 01/23/16 05/14/21 documented as of this encounter
--- OUTSIDE RECORDS SUMMARY | 2021-12-08 09:36 | XMS_ITS | Encounter Summary ---
:1945 Author Organization [place] Address [address] [facility] [place] [address] Care Team Providers Name Role Phone Raghavendra Deras MD Primary Care Provider Unavailable Raghavendra Deras MD Unavailable Unavailable Raghavendra Deras MD Unavailable Unavailable Reason for Visit Reason Onset Date Comments Flu Shot Imm/Inj 01/01/2018 Flu Shot Encounter Details Date Type Department Care Team Description 01/01/2018 Allied Health/Nurse [facility] Flu Shot; Imm/Inj (Flu Visit Clinic [place] Shot) [address] [place] [address] Social History Tobacco Use Types Packs/Day Years Used Date Smoking Tobacco: Former Cigarettes 0.5 20 Quit : 02/06/1984 Smokeless Tobacco: Never Alcohol Use Standard Drinks/Week Comments Yes 1.7 (1 standard drink = 0.6 oz pure alco hol) occasional Sex Assigned at Date Recorded Male 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 documented as of this encounter Progress Notes Phoenix Dubois, FORESTRY WORKER - 01/01/2018 3:05 PM CST Injectable Influenza [...] No Form completed by Phoenix Dubois CMA KER AUTOMATIC documented in this encounter Plan of Treatment Not on filedocumented as of this encounter Visit Diagnoses Diagnosis Need for prophylactic vaccination and in oculation against influenza - Primary documented in this encounter Care Teams Cake Decorator Relationship Specialty Start Date End Date Raghavendra Deras MD PCP - General Family Practice 10/07/13 Raghavendra Deras MD PCP - Assigned PCP 01/23/16 04/09/18 Raghavendra Deras MD Assigned PCP 01/23/16 05/14/21 documented as of this encounter
--- OUTSIDE RECORDS SUMMARY | 2021-12-08 09:36 | XMS_ITS | Encounter Summary ---
:1945 Author Organization [place] Address [address] [facility] [place] [address] Care Team Providers Name Role Phone Raghavendra Deras MD Primary Care Provider Unavailable Raghavendra Deras MD Unavailable Unavailable Raghavendra Deras MD Unavailable Unavailable Reason for Visit Reason Onset Date Comments Refill Request 11/08/2016 doxazosin, omeprazol e Encounter Details Date Type Department Care Team Description 11/08/2016 [facility] Raghavendra Deras Ra, Refill Request Candy SALDIVAR (doxazosin, omeprazole) [id number] [place] [address] Social History Tobacco Use Types Packs/Day Years Used Date Smoking Tobacco: Former Cigarettes 0.5 20 Quit : 02/06/1984 Smokeless Tobacco: Never Alcohol Use Standard Drinks/Week Comments Yes 1.7 (1 standard drink = 0.6 oz pure alco hol) occasional Sex Assigned at Date Recorded Male 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 Myriam Barrtet RN, BSN Telephone Encounter - Wade Wiggins [...] # refills: 3 Last Office Visit with [facility] [place] [facility] or [facility] prescribing provider: 11/01/2016 Potassium Date Value Ref Range Status 01/12/2016 3.6 3.4 - 5.3 mmol/L Final Creatinine Date Value Ref Range Status 01/12/2016 1.12 0.66 - 1.25 mg/dL Final BP Readings from Last 3 Encounters: 11/01/16 120/72 05/22/16 120/70 04/20/16 130/80 Omeprazole Last Written Prescription Date: 01/12/2016 Last Fill Quantity: 90, # refills: 3 Last Office Visit with [facility] or [facility] prescribing provider: Wade Wiggins XRT documented in this encounter Plan of Treatment Not on filedocumented as of this encounter Visit Diagnoses Diagnosis Hypertension goal BP (blood pressure) < 140/90 Unspecified essential hypertension History of peptic ulcer disease Personal history of peptic ulcer disease documented in this encounter Care Teams Meat Selector Relationship Specialty Start Date End Date Raghavendra Deras MD PCP - General Family Practice 10/07/13 Raghavendra Deras MD PCP - Assigned PCP 01/23/16 04/09/18 Raghavendra Deras MD Assigned PCP 01/23/16 05/14/21 documented as of this encounter
--- OUTSIDE RECORDS SUMMARY | 2021-12-08 09:36 | XMS_ITS | Encounter Summary ---
:1945 Author Organization [place] Address [address] [facility] [place] [address] Care Team Providers Name Role Phone Raghavendra Deras MD Primary Care Provider Unavailable Raghavendra Deras MD Unavailable Unavailable Raghavendra Deras MD Unavailable Unavailable Reason for Visit (Routine) - Closed Specialty Diagnoses / Procedures Referred By Contact Refer red To Contact Radiology / Radiology. Diagnoses Epic Order, sb pt. Rh Ct Scan [facility] Procedures CT ABDOMEN PELVIS W [id number] [place] [address] Phone: Fax: Referral ID Status Reason Start Date Expiration Date Visits Requ ested Visits Authorized [id number] Closed 05/23/2016 05/23/2017 1 1 Encounter Details Date Type Department Care Team Description 05/26/2016 Hospital Encounter [facility] Raghavendra Deras Abd ominal pain, [facility] MD Waqas generalized [id number] [address] [place] [address] Social History Tobacco Use Types Packs/Day Years Used Date Smoking Tobacco: Former Cigarettes 0.5 20 Quit : 02/06/1984 Smokeless Tobacco: Never Alcohol Use Standard Drinks/Week Comments Yes 1.7 (1 standard drink = 0.6 oz pure alco hol) occasional Sex Assigned at Date Recorded Male 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
--- OUTSIDE RECORDS SUMMARY | 2021-12-08 09:36 | XMS_ITS | Encounter Summary ---
:1945 Author Organization [place] Address [facility] [place] [address] Care Team Providers Name Role Phone Raghavendra Deras MD Primary Care Provider Unavailable Reason for Visit Reason Onset Date Comments Refill Request 11/05/2015 multiple medications Encounter Details Date Type Department Care Team Description 11/05/2015 Refill [facility] Raghavendra Deras Ra, Refill Request (multiple Candy SALDIVAR medications) [address] [place] [address] Social History Tobacco Use Types Packs/Day Years Used Date Smoking Tobacco: Former Cigarettes 0.5 20 Quit : 02/06/1984 Smokeless Tobacco: Never Alcohol Use Standard Drinks/Week Comments Yes 1.7 (1 standard drink = 0.6 oz pure alco hol) occasional Sex Assigned at Date Recorded Male 01/15/2018 11:39 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 documented as of this encounter Miscellaneous [...] # refills: 4 Last Office Visit with [facility] [place], [facility] or [facility] prescribing provider: 03/11/2015 CHOL 150 11/13/2013 HDL 58 11/13/2013 LDL 70 11/13/2013 TRIG 111 11/13/2013 CHOLHDLRATIO 2.6 11/13/2013 Omeprazole Last Written Prescription Date: 10/01/2014 Last Fill Quantity: 90, # refills: 4 Last Office Visit with [facility], [facility] or [facility] prescribing provider: Hydrochlorothiazide Last Written Prescription Date: 10/01/2014 Last Fill Quantity: 90, # refills: 4 Last Office Visit with [facility], [facility] or [facility] prescribing provider: POTASSIUM Date Value Ref Range Status 10/01/2014 3.5 3.4 - 5.3 mmol/L Final CREATININE Date Value Ref Range Status 10/01/2014 0.92 0.66 - 1.25 mg/dL Final BP Readings from Last 3 Encounters: 10/06/15 118/68 04/05/15 115/80 03/11/15 151/88 Doxazosin Last Written Prescription Date: 10/01/2014 Last Fill Quantity: 45, # refills: 4 Last Office Visit with [facility], [facility] or [facility] prescribing provider: Future Office Visit: BP Readings [...] hypertension documented in this encounter Care Teams House Moving Supervisor Relationship Specialty Start Date End Date Raghavendra Deras MD PCP - General Family Practice 10/07/13 documented as of this encounter
--- OUTSIDE RECORDS SUMMARY | 2021-12-08 09:36 | XMS_ITS | Encounter Summary ---
:1945 Author Organization [place] Address [facility] [place] [address] Care Team Providers Name Role Phone Raghavendra Deras MD Primary Care Provider Unavailable Reason for Visit Reason Comments Musculoskeletal Problem Encounter Details Date Type Department Care Team Description 03/11/[address] [facility] Elly Cueto ion of rib, left, initial encounter (Primary Dx); Clinic Candy Thrasher MD Hypertension goal BP (blood pressure) < 140/90 [address] [facility] [address] [place] [address] [phone] Social History Tobacco Use Types Packs/Day Years Used Date Smoking Tobacco: Former Cigarettes 0.5 20 Quit : 02/06/1984 Smokeless Tobacco: Never Alcohol Use Standard Drinks/Week Comments Yes 1.7 (1 standard drink = 0.6 oz pure alco hol) occasional Sex Assigned at Date Recorded Male 01/15/2018 11:39 PM CANADIAN BACON TIER documented as of this encounter Last Filed Vital Signs Vital Sign Reading Time Taken Comments Blood Pressure 151/88 03/11/2015 3:27 PM CANADIAN BACON TIER Pulse 68 03/11/2015 3:27 PM CANADIAN BACON TIER Temperature 36.8 ??C (98.2 ??F) 03/11/2015 3:27 PM CANADIAN BACON TIER Respiratory Rate - - Oxygen Saturation - - Inhaled Oxygen Concentration - - Weight 92.5 kg (204 lb) 03/11/2015 3:27 PM CANADIAN BACON TIER Height 175.3 cm (5' 9) 03/11/2015 3:27 PM CANADIAN BACON TIER Body Mass Index 30.13 03/11/2015 3:27 PM CANADIAN BACON TIER documented in this encounter Patient Instructions Patient [...] as directed by your healthcare provider ?? [phone] [employer]. [address] [place] [address], [place] [address]. All rights reserved. This information is not intended as a substitute for professional medical care. Always follow your healthcare professional's instructions. DIAN BACON TIER documented in this encounter Progress Notes Elly [...] ??? fluticasone (FLONASE) 50 MCG/ACT nasal spray [place] 1-2 sprays into both nostrils daily 1 [id number] ??? fish oil-omega-3 fatty acids 1000 MG [...] symptoms are not improving. Elly Cueto MD [facility] DIAN BACON TIER documented in this encounter Nursing Notes [place] [...] (92.534 kg). BP completed using cuff size: etmo Dubois CMA DIAN BACON TIER documented in this encounter Plan of Treatment Not on filedocumented as of this encounter Visit Diagnoses Diagnosis Contusion of rib, left, initial encounte r - Primary Hypertension goal BP (blood pressure) < 140/90 Unspecified essential hypertension documented in this encounter Care Teams Metal Turner Relationship Specialty Start Date End Date Raghavendra Deras MD PCP - General Family Practice 10/07/13 documented as of this encounter
--- OUTSIDE RECORDS SUMMARY | 2021-12-08 09:36 | XMS_ITS | Encounter Summary ---
:1945 Author Organization [place] Address [address] [facility] [place] [address] Care Team Providers Name Role Phone Raghavendra Deras MD Primary Care Provider Unavailable Encounter Details Date Type Department Care Team Description 10/06/2015 Radiant Appointment [facility] Artis Thrasher [facility] onic left-sided Sports and Javier, DO low back pain [facility] [address] without scia evelia [facility] [address] [place], [place] [address] [phone] [place] [address] Social History Tobacco Use Types Packs/Day Years Used Date Smoking Tobacco: Former Cigarettes 0.5 20 Quit : 02/06/1984 Smokeless Tobacco: Never Alcohol Use Standard Drinks/Week Comments Yes 1.7 (1 standard drink = 0.6 oz pure alco hol) occasional Sex Assigned at Date Recorded Male 01/15/2018 11:39 PM 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
--- OUTSIDE RECORDS SUMMARY | 2021-12-08 09:36 | XMS_ITS | Encounter Summary ---
:1945 Author Organization [place] Address [address] [facility] [place] [address] Care Team Providers Name Role Phone Raghavendra Deras MD Primary Care Provider Unavailable Raghavendra Deras MD Unavailable Unavailable Raghavendra Deras MD Unavailable Unavailable Reason for Visit Reason Onset Date Comments Nurse Advice Line 02/08/2017 food poisoning Encounter Details Date Type Department Care Team Description 02/08/2017 Telephone [facility] Raghavendra Deras Nurs e Advice Line (food Clinic [facility] poisoning) [address] [place] [address] Social History Tobacco Use Types Packs/Day Years Used Date Smoking Tobacco: Former Cigarettes 0.5 20 Quit : 02/06/1984 Smokeless Tobacco: Never Alcohol Use Standard Drinks/Week Comments Yes 1.7 (1 standard drink = 0.6 oz pure alco hol) occasional Sex Assigned at Date Recorded Male 01/15/2018 11:39 PM 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 Janny Rodriguez, RN R BLENDER Telephone Encounter - Ariella Davidson - 02/08/2017 2:06 PM CST Patient believes he has food poisoning and would like to speak with a nurse. Please call him at [phone]. Ariella Davidson Material Handler R BLENDER documented in this encounter Plan of Treatment Not on filedocumented as of this encounter Visit Diagnoses Not on filedocumented in this encounter Care Teams Cooling Machine Operator Relationship Specialty Start Date End Date Raghavendra Deras MD PCP - General Family Practice 10/07/13 Raghavendra Deras MD PCP - Assigned PCP 01/23/16 04/09/18 Raghavendra Deras MD Assigned PCP 01/23/16 05/14/21 documented as of this encounter
--- OUTSIDE RECORDS SUMMARY | 2021-12-08 09:36 | XMS_ITS | Encounter Summary ---
:1945 Author Organization [place] Address [facility] [place] [address] Care Team Providers Name Role Phone Raghavendra Deras MD Primary Care Provider Unavailable Raghavendra Deras MD Unavailable Unavailable Raghavendra Deras MD Unavailable Unavailable Reason for Visit Reason Onset Date Comments Nurse Advice Line 02/09/2017 Encounter Details Date Type Department Care Team Description 02/09/2017 Telephone [facility] Raghavendra Deras Ra, MD Nurse Advice Line [address] [address] Social History Tobacco Use Types Packs/Day Years Used Date Smoking Tobacco: Former Cigarettes 0.5 20 Quit : 02/06/1984 Smokeless Tobacco: Never Alcohol Use Standard Drinks/Week Comments Yes 1.7 (1 standard drink = 0.6 oz pure alco hol) occasional Sex Assigned at Date Recorded Male 01/15/2018 11:39 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 Myriam Barrett RN, BSN LSMITH HELPER documented in this encounter Plan of Treatment Not on filedocumented as of this encounter Visit Diagnoses Not on filedocumented in this encounter Care Teams Capsule Inspector Relationship Specialty Start Date End Date Raghavendra Deras MD PCP - General Family Practice 10/07/13 Raghavendra Deras MD PCP - Assigned PCP 01/23/16 04/09/18 Raghavendra Deras MD Assigned PCP 01/23/16 05/14/21 documented as of this encounter
--- OUTSIDE RECORDS SUMMARY | 2021-12-08 09:36 | XMS_ITS | Encounter Summary ---
:1945 Author Organization [place] Address [address] [facility] [place] [address] Care Team Providers Name Role Phone Raghavendra Deras MD Primary Care Provider Unavailable Reason for Visit Reason Comments Trauma Right hand Encounter Details Date Type Department Care Team Description 04/05/2015 Office Visit [facility] CalderonHangt, Pain o f right upper extremity (Primary Dx); Clinic [place] Mixed hyperlipidemia [address] [address] [place], [place] [phone] [address] Social History Tobacco Use Types Packs/Day Years Used Date Smoking Tobacco: Former Cigarettes 0.5 20 Quit : 02/06/1984 Smokeless Tobacco: Never Alcohol Use Standard Drinks/Week Comments Yes 1.7 (1 standard drink = 0.6 oz pure alco hol) occasional Sex Assigned at Date Recorded Male 01/15/2018 11:39 PM PARTS ROOM ASSISTANT documented as of this encounter Last Filed Vital Signs Vital Sign Reading Time Taken Comments Blood Pressure 115/80 04/05/2015 2:40 PM PARTS ROOM ASSISTANT Pulse 74 04/05/2015 2:40 PM PARTS ROOM ASSISTANT Temperature 36.4 ??C (97.5 ??F) 04/05/2015 2:40 PM PARTS ROOM ASSISTANT Respiratory Rate 16 04/05/2015 2:40 PM PARTS ROOM ASSISTANT Oxygen Saturation 96% 04/05/2015 2:40 PM PARTS ROOM ASSISTANT Inhaled Oxygen Concentration - - Weight 93.8 kg (206 lb 14.4 oz) 04/05/2015 2:40 PM PARTS ROOM ASSISTANT Height 175.3 cm (5' 9) 04/05/2015 2:40 PM PARTS ROOM ASSISTANT Body Mass Index 30.55 04/05/2015 2:40 PM PARTS ROOM ASSISTANT documented in this encounter Progress Notes Tyler [...] Diabetes Maternal Grandmother ??? C.A.D. Maternal Uncle [place] ??? Cancer [...] has increased he should be seen MUSHTAQ Calderon MD [facility] S ROOM ASSISTANT documented in this encounter Nursing Notes Gladys [...] Montesinos MA Health Maintenance has been reviewed. S ROOM ASSISTANT documented in this encounter Miscellaneous Notes Addendum Note - Dwain Catalan - 04/05/2015 5:13 PM PARTS ROOM ASSISTANT Addended by: DWAIN CATALAN on: 04/05/2015 05:13 PM Modules accepted: Orders S ROOM ASSISTANT documented in this encounter Plan of Treatment Not on filedocumented as of this encounter Visit Diagnoses Diagnosis Pain of right upper extremity - Primary Mixed hyperlipidemia documented in this encounter Care Teams Yarn Skeins Examiner Relationship Specialty Start Date End Date Raghavendra Deras MD PCP - General Family Practice 10/07/13 documented as of this encounter
--- OUTSIDE RECORDS SUMMARY | 2021-12-08 09:36 | XMS_ITS | Encounter Summary ---
:1945 Author Organization [place] Address [address] [facility] [address] Care Team Providers Name Role Phone Raghavendra Deras MD Primary Care Provider Unavailable Reason for Visit Reason Onset Date Comments URI 04/07/2015 Encounter Details Date Type Department Care Team Description 04/07/2015 Telephone [facility] Raghavendra Deras Ra, MD [facility] [address] [place] [address] Social History Tobacco Use Types Packs/Day Years Used Date Smoking Tobacco: Former Cigarettes 0.5 20 Quit : 02/06/1984 Smokeless Tobacco: Never Alcohol Use Standard Drinks/Week Comments Yes 1.7 (1 standard drink = 0.6 oz pure alco hol) occasional Sex Assigned at Date Recorded Male 01/15/2018 11:39 PM SHAREHOLDER documented as of this encounter Miscellaneous Notes Telephone Encounter - Janny Rodriguez RN - 04/07/2015 1:57 PM CST Pt [...] clinic at any time with concerns. Janny Page, RN EHOLDER documented in this encounter Plan of Treatment Not on filedocumented as of this encounter Visit Diagnoses Not on filedocumented in this encounter Care Teams Ground Instructor Basic Relationship Specialty Start Date End Date Raghavendra Deras MD PCP - General Family Practice 10/07/13 documented as of this encounter
--- OUTSIDE RECORDS SUMMARY | 2021-12-08 09:36 | XMS_ITS | Encounter Summary ---
:1945 Author Organization [place] Address [address] [facility] [place] [address] Care Team Providers Name Role Phone Raghavendra Deras MD Primary Care Provider Unavailable Raghavendra Deras MD Unavailable Unavailable Raghavendra Deras MD Unavailable Unavailable Reason for Visit Reason Comments Hoarse Ear Problem Left Encounter Details Date Type Department Care Team Description 11/01/[address] 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
--- OUTSIDE RECORDS SUMMARY | 2021-12-08 09:36 | XMS_ITS | Encounter Summary ---
:1945 Author Organization [place] Address [address] [facility] [place] [address] Care Team Providers Name Role Phone Raghavendra Deras MD Primary Care Provider Unavailable Raghavendra Deras MD Unavailable Unavailable Raghavendra Deras MD Unavailable Unavailable Reason for Visit Reason Comments ER F/U Encounter Details Date Type Department Care Team Description 02/12/2017 Office Visit [facility] Raghavendra Deras Abdominal pain, Clinic Candy Alan MD generalized (Primary [address] [facility]x) [place] [address] Social History Tobacco Use Types Packs/Day Years Used Date Smoking Tobacco: Former Cigarettes 0.5 20 Quit : 02/06/1984 Smokeless Tobacco: Never Alcohol Use Standard Drinks/Week Comments Yes 1.7 (1 standard drink = 0.6 oz pure alco hol) occasional Sex Assigned at Date Recorded Male 01/15/2018 11:39 PM MEDICAL TECHNOLOGIST MICROBIOLOGY documented as of this encounter Last Filed Vital Signs Vital Sign Reading Time Taken Comments Blood Pressure 136/82 02/12/2017 2:48 PM MEDICAL TECHNOLOGIST MICROBIOLOGY Pulse 74 02/12/2017 2:48 PM MEDICAL TECHNOLOGIST MICROBIOLOGY Temperature 37 ??C (98.6 ??F) 02/12/2017 2:48 PM MEDICAL TECHNOLOGIST MICROBIOLOGY Respiratory Rate - - Oxygen Saturation - - Inhaled Oxygen Concentration - - Weight 93.4 kg (206 lb) 02/12/2017 2:48 PM MEDICAL TECHNOLOGIST MICROBIOLOGY Height 175.3 cm (5' 9) 02/12/2017 2:48 PM MEDICAL TECHNOLOGIST MICROBIOLOGY Body Mass Index 30.42 02/12/2017 2:48 PM MEDICAL TECHNOLOGIST MICROBIOLOGY documented in this encounter Progress Notes Raghavendra [...] behalf by Radha Mobley, a trained medical sonographer. The creation of this document is based on the provider's statements to the medical sonographer. Radha Mobley 3:11 PM February 12, 2017 [...] in this document, created by the medical sonographer for me, accurately reflects the services I personally performed and the decisions made by me. I have reviewed and approved this document for accuracy prior to leaving the patient care area. February 12, 2017 3:35 PM Raghavendra Deras MD [facility] CAL TECHNOLOGIST MICROBIOLOGY documented in this encounter Nursing Notes Fatemeh [...] Maintenance addressed: NONE n/a Fatemeh Camacho CMA CAL TECHNOLOGIST MICROBIOLOGY documented in this encounter Plan of Treatment Not on filedocumented as of this encounter Visit Diagnoses Diagnosis Abdominal pain, generalized - Primary documented in this encounter Care Teams Fairground Operator Relationship Specialty Start Date End Date Raghavendra Deras MD PCP - General Family Practice 10/07/13 Raghavendra Deras MD PCP - Assigned PCP 01/23/16 04/09/18 Raghavendra Deras MD Assigned PCP 01/23/16 05/14/21 documented as of this encounter
--- OUTSIDE RECORDS SUMMARY | 2021-12-08 09:36 | XMS_ITS | Encounter Summary ---
:1945 Author Organization [place] Address [address] [facility] [place] [place] [address] Care Team Providers Name Role Phone Raghavendra Deras MD Primary Care Provider Unavailable Raghavendra Deras MD Unavailable Unavailable Raghavendra Deras MD Unavailable Unavailable Reason for Visit Reason Onset Date Comments Patient/info Update 02/02/2017 Encounter Details Date Type Department Care Team Description 02/02/2017 Telephone [facility] Raghavendra Deras Ra, Patient/info Update Candy SALDIVAR [address] [place] [address] Social History Tobacco Use Types Packs/Day Years Used Date Smoking Tobacco: Former Cigarettes 0.5 20 Quit : 02/06/1984 Smokeless Tobacco: Never Alcohol Use Standard Drinks/Week Comments Yes 1.7 (1 standard drink = 0.6 oz pure alco hol) occasional Sex Assigned at Date Recorded Male 01/15/2018 11:39 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 OUTFIT SUPERVISOR Telephone Encounter - Phoenix Dubois CMA - 02/02/2017 4:24 PM CST BP Readings from Last 3 Encounters: 12/27/17 148/90 11/01/16 120/72 05/22/16 120/70 ?? Pt in today for nurse only BP check. Pulse today 83. meds reviewed. Pt states feeling good. Energy level is good. Pt to record home readings over the weekend and come in again early next week for nurseonly check. Pt agreed. ?? Phoenix Dubois CMA ?? OUTFIT SUPERVISOR documented in this encounter Plan of Treatment Not on filedocumented as of this encounter Visit Diagnoses Not on filedocumented in this encounter Care Teams Client Portfolio Manager Relationship Specialty Start Date End Date Raghavendra Deras MD PCP - General Family Practice 10/07/13 Raghavendra Deras MD PCP - Assigned PCP 01/23/16 04/09/18 Raghavendra Deras MD Assigned PCP 01/23/16 05/14/21 documented as of this encounter
--- OUTSIDE RECORDS SUMMARY | 2021-12-08 09:36 | XMS_ITS | Encounter Summary ---
:1945 Author Organization [place] Address [facility] [place] [address] Care Team Providers Name Role Phone Raghavendra Deras MD Primary Care Provider Unavailable Raghavendra Deras MD Unavailable Unavailable Raghavendra Deras MD Unavailable Unavailable Reason for Visit Reason Comments Allied Health Visit BP check Encounter Details Date Type Department Care Team Description 02/02/2017 Allied Health/Nurse Health [place] All ied Health Visit (BP Visit Clinic [facility]) [address] [place] [address] Social History Tobacco Use Types Packs/Day Years Used Date Smoking Tobacco: Former Cigarettes 0.5 20 Quit : 02/06/1984 Smokeless Tobacco: Never Alcohol Use Standard Drinks/Week Comments Yes 1.7 (1 standard drink = 0.6 oz pure alco hol) occasional Sex Assigned at Date Recorded Male 01/15/2018 11:39 PM QUILL STRIPPER documented as of this encounter Nursing Notes Phoenix Dubois CMA - 02/02/2017 4:00 PM CST BP Readings from Last 3 Encounters: 01/31/17 148/90 11/01/16 120/72 05/22/16 120/70 Pt in today for nurse only BP check. Pulse today 83. meds reviewed. Pt states feeling good. Energy level is good. Pt to record home readings over the weekend and come in again early next week for nurseonly check. Pt agreed. Phoenix Dubois CMA L STRIPPER documented in this encounter Plan of Treatment Not on filedocumented as of this encounter Visit Diagnoses Diagnosis BP check - Primary Screening for hypertension documented in this encounter Care Teams Tool Repairer Bench Relationship Specialty Start Date End Date Raghavendra Deras MD PCP - General Family Practice 10/07/13 Raghavendra Deras MD PCP - Assigned PCP 01/23/16 04/09/18 Raghavendra Deras MD Assigned PCP 01/23/16 05/14/21 documented as of this encounter
--- OUTSIDE RECORDS SUMMARY | 2021-12-08 09:36 | XMS_ITS | Encounter Summary ---
:1945 Author Organization [place] Address [address] [facility] [place] [address] Care Team Providers Name Role Phone Raghavendra Deras MD Primary Care Provider Unavailable Raghavendra Deras MD Unavailable Unavailable Raghavendra Deras MD Unavailable Unavailable Reason for Visit Reason Onset Date Comments Nurse Advice Line 03/23/2016 Encounter Details Date Type Department Care Team Description 03/23/2016 Telephone [facility] Raghavendra Deras Ra, MD Nurse Advice Line [address] [address] Social History Tobacco Use Types Packs/Day Years Used Date Smoking Tobacco: Former Cigarettes 0.5 20 Quit : 02/06/1984 Smokeless Tobacco: Never Alcohol Use Standard Drinks/Week Comments Yes 1.7 (1 standard drink = 0.6 oz pure alco hol) occasional Sex Assigned at Date Recorded Male 01/15/2018 11:39 PM STUDENT FINANCIAL AID MANAGER documented as of this encounter Miscellaneous [...] time with concerns. Myriam Barrett RN, BSN ENT FINANCIAL AID MANAGER Telephone Encounter - Raghavendra Deras MD - 03/24/2016 11:08 AM CST Hydrochlorothiazide was stopped as this theoretically could have worsened urinary frequency issues. If he has not noticed a change in urinary habits then we could have him go back on that. BP Readings from Last 1 Encounters: 01/12/16 120/68 ENT FINANCIAL AID MANAGER Telephone Encounter - Myriam Barrett RN [...] change. Please advise Myriam Barrett RN, BSN ENT FINANCIAL AID MANAGER documented in this encounter Plan of Treatment Not on filedocumented as of this encounter Visit Diagnoses Diagnosis Hypertension goal BP (blood pressure) < 140/90 Unspecified essential hypertension documented in this encounter Care Teams Database Programmer Analyst Relationship Specialty Start Date End Date Raghavendra Deras MD PCP - General Family Practice 10/07/13 Raghavendra Deras MD PCP - Assigned PCP 01/23/16 04/09/18 Raghavendra Deras MD Assigned PCP 01/23/16 05/14/21 documented as of this encounter
--- OUTSIDE RECORDS SUMMARY | 2021-12-08 09:36 | XMS_ITS | Encounter Summary ---
:1945 Author Organization [place] Address [address] [facility] [place] [address] Care Team Providers Name Role Phone Raghavendra Deras MD Primary Care Provider Unavailable Raghavendra Deras MD Unavailable Unavailable Raghavendra Deras MD Unavailable Unavailable Reason for Referral Consultation - Closed Specialty Diagnoses / Procedures Referred By Contact Refer red To Contact Diagnoses Hoarseness of voice Raghavendra Deras MD [facility] [address] [place] [address] [place], [place] [phone] Phone: Fax: Referral ID Status Reason Start Date Expiration Date Visits Requ ested Visits Authorized [id number] Closed 01/31/2017 01/31/2018 1 1 BUTCHER Reason for Visit Reason Comments Wellness Visit Encounter Details Date Type Department Care Team Description 01/31/2017 Office Visit [facility] Raghavendra Deras g eneral medical examination at a health care facility (Primary Dx); Clinic Candy Alan MD Hyperlipidemia LDL goal <130 ; [id number] [address] Hypertension goal BP (blood pressure) < 140/90; [place], [place] History of pep tic ulcer disease; [id number] MORENITA (obstructive sleep apnea ); [phone] Hoarseness of v oice Social History Tobacco Use Types Packs/Day Years Used Date Smoking Tobacco: Former Cigarettes 0.5 20 Quit : 02/06/1984 Smokeless Tobacco: Never Alcohol Use Standard Drinks/Week Comments Yes 1.7 (1 standard drink = 0.6 oz pure alco hol) occasional Sex Assigned at Date Recorded Male 01/15/2018 11:39 PM MEAT BUTCHER documented as of this encounter Last Filed Vital Signs Vital Sign Reading Time Taken Comments Blood Pressure 148/90 01/31/2017 11:02 AM MEAT BUTCHER Pulse 71 01/31/2017 10:42 AM MEAT BUTCHER Temperature 36.8 ??C (98.2 ??F) 01/31/2017 10:42 AM MEAT BUTCHER Respiratory Rate - - Oxygen Saturation 98% 01/31/2017 10:42 AM MEAT BUTCHER Inhaled Oxygen Concentration - - Weight 95.8 kg (211 lb 4.8 oz) 01/31/2017 10:42 AM MEAT BUTCHER Height 175.3 cm (5' 9) 01/31/2017 10:42 AM MEAT BUTCHER Body Mass Index 31.2 01/31/2017 10:42 AM MEAT BUTCHER documented in this encounter Patient Instructions Patient [...] such as glaucoma, macular degeneration and cataracts. BUTCHER documented in this encounter Progress Notes Fatemeh [...] COGNITIVE SCREEN 1) Repeat 3 items (Banana, Gamerco, Chair) 2) Clock draw: NORMAL 3) 3 item recall: Recalls 3 objects Results: 3 items recalled: COGNITIVE IMPAIRMENT LESS LIKELY Mini-CogTM Copyright Murali Lenz. Licensed by the author for use in [facility]; reprintedwith permission ([email or web address]). All rights reserved. Reviewed and updated as [...] behalf by Radha Mobley, a trained medical practitioners. The creation of this document is based on the provider's statements to the medical practitioners. Radha Mobley 10:59 AM January 31, 2017 [...] in this document, created by the medical practitioners for me, accurately reflects the services I personally performed and the decisions made by me. I have reviewed and approved this document for accuracy prior to leaving the patient care area. January 31, 2017 11:44 AM Raghavendra Deras MD [facility] BUTCHER documented in this encounter Nursing Notes Fatemeh [...] Maintenance addressed: NONE n/a Fatemeh Camacho CMA BUTCHER documented in this encounter Plan of Treatment Scheduled Referrals Name Type Priority Associated Diagnoses Order S chedule OTOLARYNGOLOGY REFERRAL Referral Routine Hoarseness of voi ce Ordered: 01/31/2017 documented as of this encounter Procedures Procedure Name Priority Date/Time Associated Diagnosis Comme nts UA MACROSCOPIC WITH Routine 01/31/2017 11:30 Hypertension goal BP Results for this REFLEX TO AM MEAT BUTCHER (blood pressure) < procedure are in MICROSCOPIC AND 140/90 the results CULTURE section. LIPID REFLEX TO Routine 01/31/2017 11:21 Hyperlipidemia LDL Re sults for this DIRECT LDL PANEL AM MEAT BUTCHER goal <130 procedure a re in the results section. BASIC METABOLIC Routine 01/31/2017 11:21 Hypertension goal BP Results for this PANEL AM MEAT BUTCHER (blood pressure) < procedure are in 140/90 the results section. documented in this encounter Results UA reflex to Microscopic and Culture (01/31/2017 11:30 AM MEAT BUTCHER) [facility] Method Time Signature Color Urine Yellow 01/31/2017 [facility] 11:34 AM [facility] Appearance Urine Clear 01/31/2017 [facility] 11:34 AM [facility] Glucose Urine Negative NEG^Negat 01/31/2017 [facility] mg/dL 11:34 AM [facility] Bilirubin Urine Negative NEG^Negat 01/31/2017 [facility]a 11:34 AM [facility] Ketones Urine Negative NEG^Negat 01/31/2017 [facility] mg/dL 11:34 AM [facility] Specific [place] 1.015 1.003 - 01/31/2017 [facility] Urine 1.035 11:34 AM [facility] Blood Urine Negative NEG^Negat 01/31/2017 [facility]a 11:34 AM [facility] pH Urine 7.0 5.0 - 7.0 01/31/2017 [place] pH 11:34 AM [facility] Protein Albumin Negative NEG^Negat 01/31/2017 [place] Urine deepa mg/dL 11:34 AM [facility] Urobilinogen 0.2 0.2 - 1.0 01/31/2017 [place] Urine EU/dL 11:34 AM [facility] Nitrite Urine Negative NEG^Negat 01/31/2017 [place] deepa 11:34 AM [facility] Leukocyte Negative NEG^Negat 01/31/2017 [place] Esterase Urine deepa 11:34 AM [facility] Source Midstream 01/31/2017 [place] Urine 11:34 AM [facility] Specimen (Source) Anatomical Collection Method Collection Time Re ceived Time Location / / Volume Laterality Examination of 01/31/2017 11:30 7 midstream urine AM MEAT BUTCHER 11:31 AM MEAT BUTCHER specimen (procedure) Raghavendra Deras MD LAB - URINE ORDERABLES Performing Organization Address City/State/ZIP Code Phon e Number [facility] [id number] [place] [address] Basic metabolic panel (01/31/2017 11:21 AM MEAT BUTCHER) P athologist Signature Sodium 143 133 - 144 02/01/2017 [facility] mmol/L 9:07 AM [facility] Potassium 4.4 3.4 - 5.3 02/01/2017 [facility] mmol/L 9:07 AM [facility] Chloride 108 94 - 109 02/01/2017 [facility] mmol/L 9:07 AM [facility] Carbon Dioxide 27 20 - 32 02/01/2017 [facility] mmol/L 9:07 AM [facility] Anion Gap 8 3 - 14 02/01/2017 [facility] mmol/L 9:07 AM [facility] Glucose 85 70 - 99 02/01/2017 [facility] mg/dL 9:07 AM [facility] Comment: Fasting specimen Urea Nitrogen 11 7 - 30 mg/dL 02/01/2017 9:[address] [facility] Creatinine 0.98 0.66 - 1.25 mg/dL 02/01/2017 9:07 AM CS T [facility] GFR Estimate 75 >60 mL/min/1.7m2 02/01/2017 9:[address] [facility] Comment: Non GFR Calc GFR Estimate If >90 >60 mL/min/1.7m2 02/01/2017 9:07 A M [facility] Carlos [facility] Comment: GFR Calc Calcium 8.9 8.5 - 10.1 mg/dL 02/01/2017 9:[address] [facility] Specimen Anatomical Collection Method Collection Time Receive d Time (Source) Location / / Volume Laterality Blood specimen 01/31/2017 11:21 7 (specimen) AM MEAT [facility] 11:22 AM MEAT BUTCHER Raghavendra eDras MD LAB - BLOOD ORDERABLES Performing Organization Address City/State/ZIP Code Phon e Number [facility] [address] [place] [address] (ABNORMAL) Lipid panel reflex to direct LDL Fasting (01/31/2017 11:21 AM MEAT BUTCHER) Analysis Performed At Patho logist Time Signature Cholesterol 149 <200 mg/dL 02/01/2017 [place] 9:07 AM [facility] Triglycerides 171 (H) <150 mg/dL 02/01/2017 [place] 9:10 AM [facility] Comment: Borderline high: ??150-199 mg/dl High: ? 200-499 mg/dl Very high: ? >499 mg/dl Fasting specimen HDL Cholesterol 49 >39 mg/dL 02/01/2017 9:10 AM [facility] LDL Cholesterol 66 <100 mg/dL 02/01/2017 9:10 AM [facility] Comment: Desirable: <100 mg/dl Non HDL Cholesterol 100 <130 mg/dL 02/01/2017 9:10 AM [facility] Specimen Anatomical Collection Method Collection Time Receive d Time (Source) Location / / Volume Laterality Blood specimen 01/31/2017 11:21 7 (specimen) AM [facility] 11:22 AM MEAT [facility] Raghavendra Deras MD LAB - BLOOD ORDERABLES Performing Organization Address City/State/ZIP Code Phon e Number M [facility] [address] [phone] [facility] [address] [place], [place] [address] [facility] [address] [address], [place] [phone] documented in this encounter Visit Diagnoses Diagnosis [...] Dysphonia documented in this encounter Care Teams Fire Extinguisher Mechanic Relationship Specialty Start Date End Date Raghavendra Deras MD PCP - General Family Practice 10/07/13 Raghavendra Deras MD PCP - Assigned PCP 01/23/16 04/09/18 Raghavendra Deras MD Assigned PCP 01/23/16 05/14/21 documented as of this encounter
--- OUTSIDE RECORDS SUMMARY | 2021-12-08 09:36 | XMS_ITS | Encounter Summary ---
:1945 Author Organization [place] Address [address] [facility] [place] [address] Care Team Providers Name Role Phone Raghavendra Deras MD Primary Care Provider Unavailable Reason for Visit SOTO Physical Therapy (Routine) - Closed Specialty Diagnoses / Procedures Referred By Contact Refer red To Contact Artis Thrasher DO [facility] [address] [place] [address] [place] [address] [facility] [address] [address] [place], [place] [address] Phone: Fax: Referral ID Status Reason Start Date Expiration Date Visits Requ ested Visits Authorized SOTO/HP/LBP Closed 10/06/2015 02/05/2016 20 18 Encounter Details Date Type Department Care Team Description 10/08/2015 Therapy Visit [facility] Vernon Steel, Acute left-sided low Rehabilitation Services PT back pain without [facility] sciatica (Primary [address] [facility] ATHLETIC MEDICINE Dx) [place] [address] [address] [address] [place], [place] [phone] [address] Social History Tobacco Use Types Packs/Day Years Used Date Smoking Tobacco: Former Cigarettes 0.5 20 Quit : 02/06/1984 Smokeless Tobacco: Never Alcohol Use Standard Drinks/Week Comments Yes 1.7 (1 standard drink = 0.6 oz pure alco hol) occasional Sex Assigned at Date Recorded Male 01/15/2018 11:39 PM KIER BOILER documented as of this encounter Progress Notes [...] and time spent performing 1:1 timed codes. BOILER Isidra Gerber PTA - 10/12/2015 8:55 AM CDT Subjective: Pertinent medical history includes: High blood pressure, cancer and implanted device (enlarged prostate, acid reflux). Other surgeries include: Cancer surgery (skin). Current medications: Anti-inflammatory and high blood pressure medication. Current occupation is retired. Employment tasks: normal daily. 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 Z THERAPEUTIC Routine 10/08/2015 4:11 PM Acute left-sided lo w EXERCISES CDT back pain without sciatica documented in this encounter Visit Diagnoses Diagnosis Acute left-sided low back pain without s ciatica - Primary documented in this encounter Care Teams Structural Steel Detailer Relationship Specialty Start Date End Date Raghavendra Deras MD PCP - General Family Practice 10/07/13 documented as of this encounter
--- OUTSIDE RECORDS SUMMARY | 2021-12-08 09:36 | XMS_ITS | Encounter Summary ---
:1945 Author Organization [place] Address [address] [place] [address] Care Team Providers Name Role Phone Raghavendra Deras MD Primary Care Provider Unavailable Reason for Visit Reason Comments Wellness Visit Encounter Details Date Type Department Care Team Description 01/12/2016 Office Visit [facility] Raghavendra Deras Encounter for routine adult health examination without abnormal findings (Primary Dx); Clinic Candy Alan MD Hypertension goal BP (blood pressure) < 140/90; [id number] [facility] Chronic cough; [place], [place] Benign non-nod ular prostatic hyperplasia with lower urinary tract symptoms; [id number] History of peptic ulcer dise [place]; [phone] MORENITA (obstructiv e sleep apnea); Advanced direct [...] at Date Recorded Male 01/15/2018 11:39 PM SHADOWGRAPH SCALE OPERATOR documented as of this encounter Last Filed Vital Signs Vital Sign Reading Time Taken Comments Blood Pressure 120/68 01/12/2016 9:38 AM SHADOWGRAPH SCALE OPERATOR Pulse 67 01/12/2016 9:38 AM SHADOWGRAPH SCALE OPERATOR Temperature 36.6 ??C (97.9 ??F) 01/12/2016 9:38 AM SHADOWGRAPH SCALE OPERATOR Respiratory Rate - - Oxygen Saturation - - Inhaled Oxygen Concentration - - Weight 96.4 kg (212 lb 8 oz) 01/12/2016 9:38 AM SHADOWGRAPH SCALE OPERATOR Height 175.3 cm (5' 9) 01/12/2016 9:38 AM SHADOWGRAPH SCALE OPERATOR Body Mass Index 31.38 01/12/2016 9:38 AM SHADOWGRAPH SCALE OPERATOR documented in this encounter Patient Instructions [...] such as glaucoma, macular degeneration and cataracts. OWGRAPH SCALE OPERATOR documented in this encounter Progress Notes [...] COGNITIVE SCREEN 1) Repeat 3 items (Banana, [place], Chair) 2) Clock draw: NORMAL 3) 3 item recall: Recalls 2 objects Results: NORMAL clock, 1-2 items recalled: COGNITIVE IMPAIRMENT LESS LIKELY Mini-CogTM Copyright Murali Lenz. Licensed by the author for use in [facility]; reprintedwith permission ([email or web address]). All rights reserved. Patient with history of [...] past. All Histories reviewed and updated in [facility] as appropriate. Social History Substance Use Topics [...] following health maintenance items are reviewed in [facility] and correct as of today: Health Maintenance Topic Date Due ??? HEPATITIS C SCREENING 04/23/1963 ??? LIPID MONITORING Q1 YEAR( NO INBASKET) 11/13/2014 ??? FALL RISK ASSESSMENT 10/02/2015 ??? COLONOSCOPY Q5 YR INBAEyeTechCareET MESSAGE 06/05/2018 ??? TETANUS IMMUNIZATION (SYSTEM ASSIGNED) 10/19/2018 ??? ADVANCE DIRECTIVE PLANNING Q5 YRS (NO INBASKET) 01/11/2021 ??? PNEUMOCOCCAL Completed ??? AORTIC ANEURYSM SCREENING (SYSTEM ASSIGNED) Completed ROS: Constitutional, HEENT, cardiovascular, pulmonary, gi and gu systems are negative, except as otherwise noted. Problem list, Medication list, Allergies, and Medical/Social/Surgical histories reviewed in [employer] andupdated as appropriate. OBJECTIVE: BP 120/68 mmHg [...] trigger - fluticasone (FLONASE) 50 MCG/ACT spray; [place] 1-2 sprays into both nostrils daily Dispense: [...] Prophylaxis Lung CA Screening Raghavendra Deras MD [facility] OWGRAPH SCALE OPERATOR documented in this encounter Nursing Notes Fatemeh [...] kg). Fatemeh Camacho CMA Health Maintenance- Reviewed. OWGRAPH SCALE OPERATOR documented in this encounter Plan of Treatment Not on filedocumented as of this encounter Procedures Procedure Name Priority Date/Time Associated Diagnosis Comme nts URINE MICROSCOPIC Routine 01/12/2016 10:16 Encounter for israel painting Results for this AM SHADOWGRAPH SCALE OPERATOR adult health procedure are i n examination without the resu lts abnormal findings section. UA MACROSCOPIC WITH Routine 01/12/2016 10:16 Benign non-nodula r Results for this REFLEX TO AM SHADOWGRAPH SCALE OPERATOR prostatic hyperplasia proced ure are in MICROSCOPIC AND with lower urinary the re sults CULTURE tract symptoms section. PROSTATE SPECIFIC Routine 01/12/2016 10:16 Screening for prost ate Results for this ANTIGEN SCREEN AM SHADOWGRAPH SCALE OPERATOR cancer procedure are in the results section. LIPID REFLEX TO Routine 01/12/2016 10:16 Hyperlipidemia LDL Re sults for this DIRECT LDL PANEL AM SHADOWGRAPH SCALE OPERATOR goal <130 procedure a re in the results section. HEPATITIS C ANTIBODY Routine 01/12/2016 10:16 Need for hepatit is C Results for this AM SHADOWGRAPH SCALE OPERATOR screening test procedure are in the results section. BASIC METABOLIC Routine 01/12/2016 10:16 Hypertension goal BP Results for this PANEL AM SHADOWGRAPH SCALE OPERATOR (blood pressure) < procedure are in 140/90 the results section. documented in this encounter Results (ABNORMAL) Urine Microscopic (01/12/2016 10:16 AM SHADOWGRAPH SCALE OPERATOR) [facility] Method Time Signature WBC Urine O - 2 0 - 2 [place] /HPF [facility] RBC Urine 2-5 (A) 0 - 2 [place] /HPF [facility] Squamous Few FEW /LPF [place] Epithelial /LPF [facility] Urine [place] Bacteria Urine Few (A) NEG /HPF [facility] Mucous Urine Present (A) NEG /LPF [facility] Specimen Anatomical Collection Method Collection Time Receive d Time (Source) Location / / Volume Laterality 01/12/2016 10:16 01/12/2016 AM SHADOWGRAPH SCALE OPERATOR 10:21 AM SHADOWGRAPH SCALE OPERATOR Raghavendra Deras MD LAB - URINE ORDERABLES Performing Organization Address City/State/ZIP Code Phon e Number [facility] [address] [place] [address] (ABNORMAL) UA reflex to Microscopic and Culture (01/12/2016 10:16 AM SHADOWGRAPH SCALE OPERATOR) [employer] gist Method Time Signature Color Urine Yellow [facility] Appearance Urine Clear [facility] Glucose Urine Negative NEG mg/dL [facility] Bilirubin Urine Negative NEG [facility] Ketones Urine Negative NEG mg/dL [facility] Specific [place] 1.025 1.003 - [place] Urine 1.035 [facility] Blood Urine Trace (A) NEG [facility] pH Urine 7.0 5.0 - 7.0 [place] pH [facility] Protein Albumin Negative NEG mg/dL [facility] Urobilinogen 0.2 0.2 - 1.0 [place] Urine EU/dL [facility] Nitrite Urine Negative NEG [facility] Leukocyte Negative NEG [place] Esterase Urine [facility] Source Midstream [place] Urine [facility] Specimen Anatomical Collection Method Collection Time Receive d Time (Source) Location / / Volume Laterality Urine specimen 01/12/2016 10:16 6 (specimen) AM SHADOWGRAPH SCALE OPERATOR 10:21 AM SHADOWGRAPH SCALE OPERATOR Raghavendra Deras MD LAB - URINE ORDERABLES Performing Organization Address City/State/ZIP Code Phon e Number [facility] [id number] [place] [address] Prostate spec antigen screen (01/12/2016 10:16 AM SHADOWGRAPH SCALE OPERATOR) P athologist Signature PSA 0.64 0 - 4 ug/L [facility] Comment: Assay Method: Chemiluminescence using Siemens [place] analyzer Specimen Anatomical Collection Method Collection Time Receive d Time (Source) Location / / Volume Laterality Blood specimen 01/12/2016 10:16 6 (specimen) AM SHADOWGRAPH SCALE OPERATOR 10:21 AM SHADOWGRAPH SCALE OPERATOR Raghavendra Deras MD LAB - BLOOD ORDERABLES Performing Organization Address City/State/ZIP Code Phon e Number [facility] [address] [place] [address] HOSPITAL [facility] [address] [place] [address], U [phone] Hepatitis C antibody (01/12/2016 10:16 AM SHADOWGRAPH SCALE OPERATOR) Component Value Ref Test Analysis Performed At Patholo gist Range Method Time Signature Hepatitis C Nonreactive NR [facility] Antibody Assay performance character istics have not been established for [facility], [place] MEDICAL infants, and children [facility] Specimen Anatomical Collection Method Collection Time Receive d Time (Source) Location / / Volume Laterality Blood specimen 01/12/2016 10:16 6 (specimen) AM SHADOWGRAPH SCALE OPERATOR 10:21 AM SHADOWGRAPH SCALE OPERATOR Raghavendra Deras MD LAB - BLOOD ORDERABLES Performing Organization Address City/State/ZIP Code Phon e Number [facility] [address] [place] [address] [facility] (ABNORMAL) Lipid panel reflex to direct LDL (01/12/2016 10:16 AM SHADOWGRAPH SCALE OPERATOR) Analysis Performed At [facility] logist Time Signature Cholesterol 154 <200 mg/dL [facility] Triglycerides 182 (H) <150 mg/dL [facility] Comment: Borderline high: ??150-199 mg/dl High: ? 200-499 mg/dl Very high: ? >499 mg/dl HDL Cholesterol 44 >39 mg/dL [place] [facility] LDL Cholesterol Calculated 74 <100 mg/dL [facility] Comment: Desirable: <100 mg/dl Non HDL Cholesterol 110 <130 mg/dL [facility] Specimen Anatomical Collection Method Collection Time Receive d Time (Source) Location / / Volume Laterality Blood specimen 01/12/2016 10:16 6 (specimen) AM SHADOWGRAPH SCALE OPERATOR 10:21 AM SHADOWGRAPH SCALE OPERATOR Raghavendra Deras MD LAB - BLOOD ORDERABLES Performing Organization Address City/State/ZIP Code Phon e Number [facility] [address] [place] [address] (ABNORMAL) Basic metabolic panel (01/12/2016 10:16 AM SHADOWGRAPH SCALE OPERATOR) [facility] [employer] gist Method Time Signature Sodium 143 133 - 144 [place] mmol/L [facility] Potassium 3.6 3.4 - 5.3 [place] mmol/L [facility] Chloride 106 94 - 109 [place] mmol/L [facility] Carbon Dioxide 29 20 - 32 [place] mmol/L [facility] Anion Gap 8 3 - 14 [place] mmol/L [facility] Glucose 103 (H) 70 - 99 [place] mg/dL [facility] Urea Nitrogen 20 7 - 30 [place] mg/dL [facility] Creatinine 1.12 0.66 - [facility] 1.25 mg/dL [facility] GFR Estimate 65 >60 [place] mL/min/1.[address] [facility] Comment: Non GFR Calc GFR Estimate If Black 78 >60 mL/min/1.7m2 F [facility] Comment: GFR Calc Calcium 9.2 8.5 - 10.1 mg/dL [place] CLIN I[facility] Specimen Anatomical Collection Method Collection Time Receive d Time (Source) Location / / Volume Laterality Blood specimen 01/12/2016 10:16 6 (specimen) AM SHADOWGRAPH SCALE OPERATOR 10:21 AM SHADOWGRAPH SCALE OPERATOR Raghavendra Deras MD LAB - BLOOD ORDERABLES Performing Organization Address City/State/ZIP Code Phon e Number [facility] [address] [place] [address] documented in this encounter Visit Diagnoses Diagnosis [...] prostate documented in this encounter Care Teams Label Printing Machinist Relationship Specialty Start Date End Date Raghavendra Deras MD PCP - General Family Practice 10/07/13 documented as of this encounter
--- OUTSIDE RECORDS SUMMARY | 2021-12-08 09:36 | XMS_ITS | Encounter Summary ---
:1945 Author Organization [place] Address [address] [place] [address] Care Team Providers Name Role Phone Raghavendra Deras MD Primary Care Provider Unavailable Raghavendra Deras MD Unavailable Unavailable Raghavendra Deras MD Unavailable Unavailable Reason for Visit Reason Comments Abdominal Pain cramping Encounter Details Date Type Department Care Team Description 04/20/2016 Office Visit [facility] Raghavendra Deras Abdominal pain, left Clinic Candy Alan MD lower quadrant [id number] [facility] (Primary Dx) [place] [address] Social History Tobacco Use Types Packs/Day Years Used Date Smoking Tobacco: Former Cigarettes 0.5 20 Quit : 02/06/1984 Smokeless Tobacco: Never Alcohol Use Standard Drinks/Week Comments Yes 1.7 (1 standard drink = 0.6 oz pure alco hol) occasional Sex Assigned at Date Recorded Male 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 Medication Reconciliation: gilberto Kessler CMA documented in this encounter Plan [...] (ABNORMAL) Urine Microscopic (04/20/2016 11:07 AM CDT) Patholo gist Method Time Signature WBC Urine O - 2 0 - 2 [place] /HPF [facility] RBC Urine 2-5 (A) 0 - 2 [place] /HPF [facility] Bacteria Urine Few (A) NEG /HPF [facility] Mucous Urine Present (A) NEG /LPF [facility] Specimen Anatomical Collection Method Collection Time Receive d Time (Source) Location / / Volume Laterality 04/20/2016 11:07 04/20/2016 AM CDT 11:12 AM CDT Raghavendra Deras MD LAB - URINE ORDERABLES Performing Organization Address City/State/ZIP Code Phon e Number [facility] [address] [place] [address] CRP inflammation (04/20/2016 11:07 AM CDT) Analysis Performed At Patho logist Time Signature CRP Inflammation 3.5 0.0 - 8.0 [facility] mg/L [facility] Specimen Anatomical Collection Method Collection Time Receive d Time (Source) Location / / Volume Laterality Blood specimen 04/20/2016 11:07 7 (specimen) AM CDT 11:12 AM CDT Raghavendra Deras MD LAB - BLOOD ORDERABLES Performing Organization Address City/[facility]/ZIP Code Phon e Number [facility] [address] [place], [place] [id number] [place] [address] Erythrocyte sedimentation rate auto (04/20/2016 11:07 AM CDT) athologist Signature Sed Rate 13 0 - 20 mm/h [facility] Specimen Anatomical Collection Method Collection Time Receive d Time (Source) Location / / Volume Laterality Blood specimen 04/20/2016 11:07 7 (specimen) AM CDT 11:12 AM CDT Raghavendra Deras MD LAB - BLOOD ORDERABLES Performing Organization Address [facility]/ZIP Code Phon e Number [facility] [address] [place] [address] Tissue transglutaminase antibody IgA (04/20/2016 11:07 AM CDT) [facility] Method Time Signature Tissue 1 <7 U/mL [facility] Transglutaminase [place] [facility] Antibody IgA [facility] Comment: Negative The tTG-IgA assay [...] LAB - BLOOD ORDERABLES Performing Organization Address City/[facility]/ZIP Code Phon e Number [facility] [address] [place], [place] [id number] [place] [address] (ABNORMAL) CBC with platelets differential (04/20/2016 11:07 AM CDT) [facility] Method Time Signature WBC 4.3 4.0 - [place] 11.0 [facility] 10e9/L [place] RBC Count 4.53 4.4 - 5.9 [place] 10e12/L [facility] Hemoglobin 13.3 13.3 - [facility] 17.7 g/dL [facility] Hematocrit 39.4 (L) 40.0 - [place] 53.0 % [facility] MCV 87 78 - 100 [place] fl [facility] MCH 29.4 26.5 - [place] 33.0 pg [facility] MCHC 33.8 31.5 - [place] 36.5 g/dL [facility] RDW 13.4 10.0 - [place] 15.0 % [facility] Platelet Count 154 150 - 450 [place] 10e9/L [facility] Diff Method Automated [place] Method [facility] % Neutrophils 66.0 % [facility] % Lymphocytes 24.0 % [facility] % Monocytes 8.3 % [facility] % Eosinophils 1.2 % [facility] % Basophils 0.5 % [facility] Absolute 2.9 1.6 - 8.3 [place] Neutrophil 10e9/L [facility] Absolute 1.0 0.8 - 5.3 [place] Lymphocytes 10e9/L [facility] Absolute 0.4 0.0 - 1.3 [place] Monocytes 10e9/L [facility] Absolute 0.1 0.0 - 0.7 [place] Eosinophils 10e9/L [facility] Absolute 0.0 0.0 - 0.2 [place] Basophils 10e9/L [facility] Specimen Anatomical Collection Method Collection Time Receive d Time (Source) Location / / Volume Laterality Blood specimen 04/20/2016 11:07 7 (specimen) AM CDT 11:12 AM CDT Raghavendra Deras MD LAB - BLOOD ORDERABLES Performing Organization Address City/State/ZIP Code Phon e Number [facility] [address] [place] [address] (ABNORMAL) UA reflex to Microscopic and Culture (04/20/2016 11:07 AM CDT) [facility] gist Method Time Signature Color Urine Yellow [facility] Appearance Urine Clear [facility] Glucose Urine Negative NEG mg/dL [facility] Bilirubin Urine Negative NEG [facility] Ketones Urine Negative NEG mg/dL [facility] Specific [place] 1.015 1.003 - [place] Urine 1.035 [facility] Blood Urine Trace (A) NEG [facility] pH Urine 6.5 5.0 - 7.0 [place] pH [facility] Protein Albumin Negative NEG mg/dL [place] Urine [facility] Urobilinogen 0.2 0.2 - 1.0 [place] Urine EU/dL [facility] Nitrite Urine Negative NEG [facility] Leukocyte Negative NEG [place] Esterase Urine [facility] Source Midstream [place] Urine [facility] Specimen Anatomical Collection Method Collection Time Receive d Time (Source) Location / / Volume Laterality Urine specimen 04/20/2016 11:07 7 (specimen) AM CDT 11:12 AM CDT Raghavendra Deras MD LAB - URINE ORDERABLES Performing Organization Address City/State/ZIP Code Phon e Number [facility] [address] [place] [address] documented in this encounter Visit Diagnoses Diagnosis Abdominal pain, left lower quadrant - Pr imary documented in this encounter Care Teams Molding Sander Relationship Specialty Start Date End Date Raghavendra Deras MD PCP - General Family Practice 10/07/13 Raghavendra Deras MD PCP - Assigned PCP 01/23/16 04/09/18 Raghavendra Deras MD Assigned PCP 01/23/16 05/14/21 documented as of this encounter
--- OUTSIDE RECORDS SUMMARY | 2021-12-08 09:36 | XMS_ITS | Encounter Summary ---
:1945 Author Organization [place] Address [facility] [place] [address] Care Team Providers Name Role Phone Raghavendra Deras MD Primary Care Provider Unavailable Raghavendra Deras MD Unavailable Unavailable Raghavendra Deras MD Unavailable Unavailable Reason for Visit Reason Onset Date Comments CT Results 06/01/2016 Encounter Details Date Type Department Care Team Description 06/01/[address] 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 Pt's Number: [phone] Bhavin Muhammad Netting Weaver 06/01/16 documented in this encounter Plan of Treatment Not on filedocumented as of this encounter Visit Diagnoses Not on filedocumented in this encounter Care Teams Ceiling Installer Relationship Specialty Start Date End Date Raghavendra Deras MD PCP - General Family Practice 10/07/13 Raghavendra Deras MD PCP - Assigned PCP 01/23/16 04/09/18 Raghavendra Deras MD Assigned PCP 01/23/16 05/14/21 documented as of this encounter
--- OUTSIDE RECORDS SUMMARY | 2021-12-08 09:36 | XMS_ITS | Encounter Summary ---
:1945 Author Organization [place] Address [address] [facility] [place] [address] Care Team Providers Name Role Phone Raghavendra Deras MD Primary Care Provider Unavailable Raghavendra Deras MD Unavailable Unavailable Raghavendra Deras MD Unavailable Unavailable Reason for Visit Reason Onset Date Comments Lab Result Notice 04/26/2016 Encounter Details Date Type Department Care Team Description 04/26/2016 Telephone [facility] Raghavendra Deras Ra, MD Lab Result Notice [address] [address] Social History Tobacco Use Types Packs/Day Years Used Date Smoking Tobacco: Former Cigarettes 0.5 20 Quit : 02/06/1984 Smokeless Tobacco: Never Alcohol Use Standard Drinks/Week Comments Yes 1.7 (1 standard drink = 0.6 oz pure alco hol) occasional Sex Assigned at Date Recorded 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
--- OUTSIDE RECORDS SUMMARY | 2021-12-08 09:36 | XMS_ITS | Encounter Summary ---
:1945 Author Organization [place] Address [address] [place] [address] Care Team Providers Name Role Phone Raghavendra Deras MD Primary Care Provider Unavailable Reason for Visit Reason Comments Urgent Care Hand Injury left hand ring finger. cut o n window glass about 30 min ago Encounter Details Date Type Department Care Team Description 11/23/2014 Office Visit [facility] Tyler Calderon Lacera tion of finger, Urgent Care Maru lang MD initial encounter [address] (Primary Dx) [place] [address] [phone] Social History Tobacco Use Types Packs/Day Years Used Date Smoking Tobacco: Former Cigarettes 0.5 20 Quit : 02/06/1984 Smokeless Tobacco: Never Alcohol Use Standard Drinks/Week Comments Yes 1.7 (1 standard drink = 0.6 oz pure alco hol) occasional Sex Assigned at Date Recorded Male 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
--- OUTSIDE RECORDS SUMMARY | 2021-12-08 09:37 | XMS_ITS | Encounter Summary ---
:1945 Author Organization [place] Address [facility] [place] [address] Care Team Providers Name Role Phone Nasir Velazquez MD Primary Care Provider [phone] Reason for Visit Reason Onset Date Comments Refill Request 09/08/2013 simvastatin Encounter Details Date Type Department Care Team Description 09/08/2013 Refill [facility] judi, Refill Request [facility] (simvastatin) [id number] [place] [phone] [place] [address] (Wo rk) Social History Tobacco Use Types Packs/Day Years Used Date Smoking Tobacco: Former Cigarettes Quit : 02/06/1984 Smokeless Tobacco: Never Alcohol Use Standard Drinks/Week Comments Yes 1.7 (1 standard drink = 0.6 oz pure alco hol) moderate Sex Assigned at Date Recorded Male 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 One time refill as pt needs to est care and labs. Saúlt setn KALA: 08/21/13 Myriam Barrett RN BP Readings [...] hyperlipidemia documented in this encounter Care Teams Clinical Operations Consultant Relationship Specialty Start Date End Date Nasir Velazquez MD PCP - General 02/18/99 10/06/13 [facility] [address] [place] [address] documented as of this encounter
--- OUTSIDE RECORDS SUMMARY | 2021-12-08 09:37 | XMS_ITS | Encounter Summary ---
:1945 Author Organization [place] Address [address] [facility] [place] [address] Care Team Providers Name Role Phone Nasir Velazquez MD Primary Care Provider [phone] Reason for Referral Diagnostic Procedure Outpatient - Closed Specialty Diagnoses / Procedures Referred By Contact Refer red To Contact Diagnoses Special screening for malignant neoplasms, colon Nasir Velazquez M [facility] SHAHEED NUÑEZ [facility] [address] SHAHE[address] Cheung [place], [place] [phone] Fax: Referral ID Status Reason Start Date Expiration Date Visits Requ ested Visits Authorized [id number] Closed 04/23/2013 10/20/2013 1 1 Reason for Visit Reason Comments Recheck Medication Encounter Details Date Type Department Care Team Description 04/23/2013 Office Visit [facility] Nasir Velazquez l screening for malignant neoplasms, colon (Primary Dx); Clinic Candy Chow MD Adenomatous polyp of colon; [address] [facility] SHAHEED NUÑEZ Esophageal reflux; [place], [place] CLINIC Hypertension goal BP (blood pressure) < 140/90 [id number] [address] SHAHE[address] NUÑEZ [phone] [place] [address] Social History Tobacco Use Types Packs/Day Years Used Date Smoking Tobacco: Former Cigarettes Quit : 02/06/1984 Smokeless Tobacco: Never Alcohol Use Standard Drinks/Week Comments Yes 1.7 (1 standard drink = 0.6 oz pure alco hol) moderate Sex Assigned at Date Recorded 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 Current Outpatient Prescriptions Medication Sig ??? [...] Name Type Priority Associated Diagnoses Order S [facility] GASTROENTEROLOGY ADULT Referral Routine Special screening for Ordered: 04/23/2013 REFERRAL +/- PROCEDURE malignant neoplasm s, colon documented as of this encounter Visit Diagnoses Diagnosis Special screening for malignant neoplasm s, colon - Primary Adenomatous polyp of colon Benign neoplasm of colon Esophageal reflux Hypertension goal BP (blood pressure) < 140/90 Unspecified essential hypertension documented in this encounter Care Teams Communications Program Manager Relationship Specialty Start Date End Date Nasir Velazquez MD PCP - General 02/18/99 10/06/13 [place] [id number] [place] [address] documented as of this encounter
--- OUTSIDE RECORDS SUMMARY | 2021-12-08 09:37 | XMS_ITS | Encounter Summary ---
:1945 Author Organization [place] Address [address] [facility] [place] [address] Care Team Providers Name Role Phone Raghavendra [...] Hypertension goal BP (blood pressure) < 140/90; [address] [place] [address] Hyperlipidemia LDL goal < 13 0; [place], [place] History of ane jolynn; [phone] Adenomatous polyp of colon; [phone] HYPERTROPHY of PROSTATE ; Special screeni ng for malignant neoplasm of prostate Social History Tobacco Use Types Packs/Day Years Used Date Smoking Tobacco: Former Cigarettes 0.5 20 Quit : 02/06/1984 Smokeless Tobacco: Never Alcohol Use Standard Drinks/Week Comments Yes 1.7 (1 standard drink = 0.6 oz pure alco hol) occasional Sex Assigned at Date Recorded Male 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 Past Medical History Diagnosis Date ??? Essential [...] list, Allergies, and Medical/Social/Surgical histories reviewed in [facility] andupdated as appropriate. OBJECTIVE: BP 130/80 [...] Preventive Guidelines Dietary Guidelines for Americans, 2010 [employer] regular exercise healthy diet/nutrition vision screening [...] self-directed dieting: reduce calories. Raghavendra Deras MD [facility] Answers for HPI/ROS submitted by the [...] (91.683 kg). BP completed using cuff size: temo Leon PAI GOW MANAGER documented in this encounter Plan of [...] Signature PSA 0.85 0 - 4 ug/L [facility] Specimen Anatomical Collection Method Collection Time Receive d Time (Source) Location / / Volume Laterality Blood specimen 04/15/2014 10:07 5 (specimen) AM CDT 10:08 AM CDT Raghavendra Deras MD LAB - BLOOD ORDERABLES Performing Organization Address City/State/ZIP Code Phon e Number [facility] [address] [place] [address] Ferritin (04/15/2014 10:07 AM CDT) P athologist Signature Ferritin 117 26 - 388 [facility] ng/mL [facility] Specimen Anatomical Collection Method Collection Time Receive d Time (Source) Location / / Volume Laterality Blood specimen 04/15/2014 10:07 5 (specimen) AM CDT 10:08 AM CDT Raghavendra Deras MD LAB - BLOOD ORDERABLES Performing Organization Address City/State/ZIP Code Phon e Number [facility] [address] [place] [address] Basic metabolic panel (04/15/2014 10:07 AM CDT) P athologist Signature Sodium 140 133 - 144 [place] mmol/L [facility] Potassium 3.6 3.4 - 5.3 [place] mmol/L [facility] Chloride 106 94 - 109 [place] mmol/L [facility] Carbon Dioxide 28 20 - 32 [place] mmol/L [facility] Anion Gap 6 3 - 14 [place] mmol/L [facility] Glucose 96 70 - 99 [place] mg/dL [facility] Comment: Effective 09/03/2013, the reference range for this assay has changed to reflect new instrumentation/methodology. Urea Nitrogen 16 7 - 30 mg/dL [facility] Comment: Effective 09/03/2013, the reference range for this assay has changed to reflect new instrumentation/methodology. Creatinine 0.97 0.66 - 1.25 mg/dL [facility] GFR Estimate 77 >60 mL/min/1.7m2 [facility] Comment: Non GFR Calc GFR Estimate If Black >90 >60 mL/min/1.7m2 F [facility] GFR Calc HOSP ITAL Calcium 8.9 8.5 - 10.1 mg/dL [facility] Comment: Effective 09/03/2013, the reference range for this assay has changed to reflect new instrumentation/methodology. Specimen Anatomical Collection Method Collection Time Receive d Time (Source) Location / / Volume Laterality Blood specimen 04/15/2014 10:07 5 (specimen) AM CDT 10:08 AM CDT Raghavendra Deras MD LAB - BLOOD ORDERABLES Performing Organization Address City/[facility]/ZIP Code Phon e Number [facility] [address] [address] [phone] [facility] [address] [address] (ABNORMAL) CBC with platelets (04/15/2014 10:07 AM CDT) Analysis Performed At Patho logist Time Signature WBC 5.3 4.0 - 11.0 [place] 10e9/L [facility] RBC Count 4.56 4.4 - 5.9 [place] 10e12/L [facility] Hemoglobin 13.3 13.3 - [place] 17.7 g/dL [facility] Hematocrit 38.6 (L) 40.0 - [place] 53.0 % [facility] MCV 85 78 - 100 [facility] MCH 29.2 26.5 - [place] 33.0 pg [facility] MCHC 34.5 31.5 - [place] 36.5 g/dL [facility] RDW 13.0 10.0 - [place] 15.0 % [facility] Platelet Count 147 (L) 150 - 450 [place] 10e9/L [facility] Specimen Anatomical Collection Method Collection Time Receive d Time (Source) Location / / Volume Laterality Blood specimen 04/15/2014 10:07 5 (specimen) AM CDT 10:08 AM CDT Raghavendra Deras MD LAB - BLOOD ORDERABLES Performing Organization Address City/[facility]/ZIP Code Phon e Number [facility] [address] [place] [address] documented in this encounter Visit Diagnoses Diagnosis [...] prostate documented in this encounter Care Teams Back Tender Paper Machine Relationship Specialty Start Date End Date Raghavendra Deras MD PCP - General Family Practice 10/07/13 documented as of this encounter
--- OUTSIDE RECORDS SUMMARY | 2021-12-08 09:37 | XMS_ITS | Encounter Summary ---
:1945 Author Organization [place] Address [facility]0 [facility] 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 rhinitis (Primary Dx) [address] [facility] [address] [place] [address] [id number] Social History Tobacco Use Types Packs/Day Years Used Date Smoking Tobacco: Former Cigarettes 0.5 20 Quit : 02/06/1984 Smokeless Tobacco: Never Alcohol Use Standard Drinks/Week Comments Yes 1.7 (1 standard drink = 0.6 oz pure alco hol) occasional Sex Assigned at Date Recorded Male 01/15/2018 11:39 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 When cleaning use vacuum responder, oiled mops and damp cloths; don???t stir [...] may take CLARITIN (loratadine). (Claritin is an fkcj-nad-dmiaiyv antihistamine that does not cause drowsiness.) ?? [...] with lots of colored sputum (mucus) ?? [phone] [employer]. [address] [place] [address], [place] [address]. All rights reserved. This information is not [...] you have any questions. Talk to your principal developer regarding the use of this medicine in children. While this drug may be prescribed for children as young as 4 years old for selected conditions, precautions do apply. Overdosage: If you think you have taken too much of this medicine contact a poison control center [facility] room at once. NOTE: This medicine is [...] this medicine? Visit your doctor or health hospice patient care secretary for regular checks on your progress. Some symptoms mayimprove within 12 hours after starting use. Check with your doctor or health hospice patient care secretary if there is no improvement in your condition after 3 weeks of use. Do not come in contact with people who have chickenpox or the measles while you are taking this medicine. If you do, call your doctor right away. What side effects may I notice from receiving this medicine? Side effects that you should report to your doctor or health hospice patient care secretary as soon as possible: ?? allergic reactions like skin rash, itching or hives, swelling of the face, lips, or tongue ?? changes in vision ?? flu-like symptoms ?? white patches or sores in the mouth or nose Side effects that usually do not require medical attention (report to your doctor or health hospice patient care secretary if they continue or are bothersome): ?? burning or irritation inside the nose or throat ?? cough ?? headache ?? nosebleed ?? unusual taste or smell This list may not describe all possible side effects. Call your doctor for medical advice about sideeffects. You may report side effects to FDA at 5-880-RUQ-9962. Where should I keep my medicine? Keep [...] Exposure: no Therapies Tried and outcome: Leanna mueller cough and cold plus - didn't help [...] Diabetes Maternal Grandmother ??? C.A.D. Maternal Uncle [place] ??? Cancer - Colorectal Maternal Uncle ??? [...] the bedroom: ?? When cleaning use vacuum responder, oiled mops and damp cloths; don???t stir [...] may take CLARITIN (loratadine). (Claritin is an rxxt-ony-vzgmbjk antihistamine that does not cause drowsiness.) ?? [...] with lots of colored sputum (mucus) ?? 9121-6319 [employer]. [address] [place] [address], [place] [address]. All rights reserved. This information is not [...] you have any questions. Talk to your principal developer regarding the use of this medicine in children. While this drug may be prescribed for children as young as 4 years old for selected conditions, precautions do apply. Overdosage: If you think you have taken too much of this medicine contact a poison control center [facility] room at once. NOTE: This medicine is [...] this medicine? Visit your doctor or health hospice patient care secretary for regular checks on your progress. Some symptoms mayimprove within 12 hours after starting use. Check with your doctor or health hospice patient care secretary if there is no improvement in your condition after 3 weeks of use. Do not come in contact with people who have chickenpox or the measles while you are taking this medicine. If you do, call your doctor right away. What side effects may I notice from receiving this medicine? Side effects that you should report to your doctor or health hospice patient care secretary as soon as possible: ?? allergic reactions like skin rash, itching or hives, swelling of the face, lips, or tongue ?? changes in vision ?? flu-like symptoms ?? white patches or sores in the mouth or nose Side effects that usually do not require medical attention (report to your doctor or health hospice patient care secretary if they continue or are bothersome): ?? burning or irritation inside the nose or throat ?? cough ?? headache ?? nosebleed ?? unusual taste or smell This list may not describe all possible side effects. Call your doctor for medical advice about sideeffects. You may report side effects to FDA at 9-446-YQJ-5868. Where should I keep my medicine? Keep [...] 2014 Gold Standard Annette Rodarte APRN CNP [facility] documented in this encounter Nursing Notes [...] unspecified documented in this encounter Care Teams American History Professor Relationship Specialty Start Date End Date Raghavendra Deras MD PCP - General Family Practice 10/07/13 documented as of this encounter
--- OUTSIDE RECORDS SUMMARY | 2021-12-08 09:37 | XMS_ITS | Encounter Summary ---
:1945 Author Organization [place] Address [address] [facility] 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 Unable to reach patient. Not scheduled. documented in this encounter Plan of Treatment Not on filedocumented as of this encounter Visit Diagnoses Not on filedocumented in this encounter Care Teams Reconcilement Clerk Relationship Specialty Start Date End Date Nasir Velazquez MD PCP - General 02/18/99 10/06/13 [facility] [address] [place] [address] documented as of this encounter
--- OUTSIDE RECORDS SUMMARY | 2021-12-08 09:37 | XMS_ITS | Encounter Summary ---
:1945 Author Organization [place] Address [address] [facility] [place] [address] Care Team Providers Name Role Phone Nasir Velazquez MD Primary Care Provider [phone] Reason for Visit Reason Comments ER F/U Encounter Details Date Type Department Care Team Description 01/15/2013 Office Visit [facility] Nasir Velazquez Abdomi nal pain, other specified site (Primary Dx); Clinic [place] MD Geraldo Gastroenteritis [address] [facility] [address] [address] [place] [phone] [place] [address] Social History Tobacco Use Types Packs/Day Years Used Date Smoking Tobacco: Former Cigarettes Quit : 02/06/1984 Smokeless Tobacco: Never Alcohol Use Standard Drinks/Week Comments Yes 1.7 (1 standard drink = 0.6 oz pure alco hol) moderate Sex Assigned at Date Recorded Male 01/15/2018 11:39 PM RE DYE HAND documented as of this encounter Last Filed Vital Signs Vital Sign Reading Time Taken Comments Blood Pressure 130/86 01/15/2013 11:15 AM RE DYE HAND Pulse 71 01/15/2013 11:15 AM RE DYE HAND Temperature 37.1 ??C (98.7 ??F) 01/15/2013 11:15 AM RE DYE HAND Respiratory Rate - - Oxygen Saturation 95% 01/15/2013 11:15 AM RE DYE HAND Inhaled Oxygen Concentration - - Weight 90.7 kg (200 lb) 01/15/2013 11:15 AM RE DYE HAND Height 175.3 cm (5' 9) 01/15/2013 11:15 AM RE DYE HAND Body Mass Index 29.53 01/15/2013 11:15 AM RE DYE HAND documented in this encounter Progress Notes Nasir Velazquez MD - 01/15/2013 11:07 AM CST SUBJECTIVE: Terry Montero is a 67 year old male who presents to clinic today for the following health issues: ED/UC Followup: Facility: [facility] Date of visit: 01-09-13 Reason for visit: abdominal pain Current Status: no cramping since. printing gray cloth tender. symptoms most consistent with viral gastroenteritis vs food poisoning. Improving, has tolerated full diet recently. Problems list, allergies, social and family history, and past medical history, are all reviewed and updated in [facility]. Current Outpatient Prescriptions Medication Status Sig ??? Clymer-3 Fatty Acids (FISH OIL PO) Active Take [...] needed at this time. follow up PRN. DYE HAND documented in this encounter Nursing Notes 01/15/2013 [...] completed using cuff size: large [place] Dubois GOVERNMENT SALES MANAGER documented in this encounter Plan of Treatment Not on filedocumented as of this encounter Visit Diagnoses Diagnosis Abdominal pain, other specified site - P rimary Gastroenteritis Other and unspecified noninfectious dee roenteritis and colitis documented in this encounter Care Teams Electron Microscopist Relationship Specialty Start Date End Date Nasir Velazquez MD PCP - General 02/18/99 10/06/13 [place] [id number] [place] [address] documented as of this encounter
--- OUTSIDE RECORDS SUMMARY | 2021-12-08 09:37 | XMS_ITS | Encounter Summary ---
:1945 Author Organization [place] Address [facility] [place] [address] Care Team Providers Name Role Phone Nasir Velazquez MD Primary Care Provider [phone] Raghavendra Deras MD Primary Care Provider Unavailable Reason for Visit Reason Onset Date Comments Refill Request 10/02/2013 hctz Encounter Details Date Type Department Care Team Description 10/02/2013 Refill [facility] - [facility] judi, Refill Request (hctz) [address] [address] [place], [place] [id number] (Wo rk) Social History Tobacco Use Types Packs/Day Years Used Date Smoking Tobacco: Former Cigarettes Quit : 02/06/1984 Smokeless Tobacco: Never Alcohol Use Standard Drinks/Week Comments Yes 1.7 (1 standard drink = 0.6 oz pure alco hol) moderate Sex Assigned at Date Recorded Male 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
--- OUTSIDE RECORDS SUMMARY | 2021-12-08 09:37 | XMS_ITS | Encounter Summary ---
:1945 Author Organization [place] Address [address] [facility] [place] [address] Care Team Providers Name Role Phone Nasir Velazquez MD Primary Care Provider [phone] Reason for Visit Reason Comments URI Health Maintenance Lipid, Microalbumin Encounter Details Date Type Department Care Team Description 08/21/2013 Office Visit [facility] Rufino Rinaldi Acute bronchitis (Primary Dx); [facility] [place] Hypertension goal BP (blood pressure) < 140/90 [place] [address] [facility], [address] [place], [place] [id number] Social History Tobacco Use Types Packs/Day Years Used Date Smoking Tobacco: Former Cigarettes Quit : 02/06/1984 Smokeless Tobacco: Never Alcohol Use Standard Drinks/Week Comments Yes 1.7 (1 standard drink = 0.6 oz pure alco hol) moderate Sex Assigned at Date Recorded Male 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 Sore Throat: YES ?? Cough: [id number], barking ?? Wheeze: no ?? Decreased Appetite: [...] list, Allergies, and Medical/Social/Surgical histories reviewed in [facility] andupdated as appropriate. ROS: Constitutional, HEENT, cardiovascular, [...] MICROALBUMIN QUANTITATIVE RANDOM URINE Rufino Chaudhry PA-C [facility] documented in this encounter Nursing Notes Pablo [...] Component Value Ref Test Analysis Performed At [facility] Range Method Time Signature Creatinine 124 mg/dL [facility] Urine [facility] Albumin Urine <5 mg/L [facility] mg/L Urine Microalbumin lowest re portable value has been changed from 2 mg/L to 5 [facility] mg/L due to a methodology change on May. [facility] Albumin Urine Unable to 0 - 17 [facility] mg/g Cr calculate mg/g Cr [facility] Specimen Anatomical Collection Method Collection Time Receive d Time (Source) Location / / Volume Laterality Urine specimen 08/21/2013 12:09 4 (specimen) PM CDT 12:10 PM CDT Rufino Rinaldi PA-C LAB - URINE ORDERABLES Performing Organization Address City/State/ZIP Code Phon e Number [facility] [address] [place], [place] [id number] [place] [address] LABS documented in this encounter Visit Diagnoses Diagnosis Acute bronchitis - Primary Hypertension goal BP (blood pressure) < 140/90 Unspecified essential hypertension documented in this encounter Care Teams District Agent Relationship Specialty Start Date End Date Nasir Velazquez MD PCP - General 02/18/99 10/06/13 [facility] [address] [place] [address] documented as of this encounter
--- OUTSIDE RECORDS SUMMARY | 2021-12-08 09:37 | XMS_ITS | Encounter Summary ---
:1945 Author Organization [place] Address [address] [facility] 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 documented as of this encounter Progress Notes [...] logist Time Signature Occult Blood Negative NEG [facility] Scn FIT [facility] Specimen Anatomical Collection Method Collection Time Receive d Time (Source) Location / / Volume Laterality Stool specimen 08/20/2012 10:20 3 (specimen) AM CDT 10:21 AM CDT Nasir Velazquez MD LAB - STOOLS ORDERABLES Performing Organization Address City/State/ZIP Code Phon e Number [facility] [address] [place], [place] [phone] [place] [address] LABS documented in this encounter Visit Diagnoses Diagnosis Anemia Anemia, unspecified documented in this encounter Care Teams Service Supervisor Relationship Specialty Start Date End Date Nasir Velazquez MD PCP - General 02/18/99 10/06/13 [place] [id number] [place], [place] [id number] documented as of this encounter
--- OUTSIDE RECORDS SUMMARY | 2021-12-08 09:37 | XMS_ITS | Encounter Summary ---
:1945 Author Organization [place] Address [address] [facility] [place] [address] Care Team Providers Name Role Phone Raghavendra Deras MD Primary Care Provider Unavailable Encounter Details Date Type Department Care Team Description 11/13/2013 Orders Only [facility] Hyp erlipidemia LDL goal <130; [facility] Hypertension goal BP (blood pressure) < 140/90 [address] [place] [address] Social History Tobacco Use Types Packs/Day Years Used Date Smoking Tobacco: Former Cigarettes Quit : 02/06/1984 Smokeless Tobacco: Never Alcohol Use Standard Drinks/Week Comments Yes 1.7 (1 standard drink = 0.6 oz pure alco hol) moderate Sex Assigned at Date Recorded Male 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 documented as of this encounter Plan of [...] Basic metabolic panel (11/13/2013 9:56 AM CDT) athologist Signature Sodium 141 133 - 144 [place] mmol/L [facility] Potassium 3.6 3.4 - 5.3 [place] mmol/L [facility] Chloride 107 94 - 109 [place] mmol/L [facility] Carbon Dioxide 27 20 - 32 [place] mmol/L [facility] Anion Gap 7 6 - 17 [place] mmol/L [facility] Glucose 100 (H) 70 - 99 [place] mg/dL [facility] Comment: Effective 09/03/2013, the reference range for this assay has changed to reflect new instrumentation/methodology. Urea Nitrogen 16 7 - 30 mg/dL [facility] Comment: Effective 09/03/2013, the reference range for this assay has changed to reflect new instrumentation/methodology. Creatinine 1.04 0.66 - 1.25 mg/dL [facility] GFR Estimate 71 >60 mL/min/1.7m2 [facility] Comment: Non GFR Calc GFR Estimate If Black 86 >60 mL/min/1.7m2 [facility] Comment: GFR Calc Calcium [...] Phon e Number [facility] [id number] [id number] [facility] Lipid panel reflex to direct LDL (11/13/2013 9:56 AM CDT) P athologist Signature Cholesterol 150 <200 mg/dL [facility] Comment: LDL Cholesterol is the primary guide to therapy. The NCEP recommends further evaluation of: patients with cholesterol greater than 200 mg/dL if additional risk facto rs are present, cholesterol greater than 240 mg/dL, triglycerides greater than 1 50 mg/dL, or HDL less than 40 mg/dL. Triglycerides 111 0 - 150 mg/dL [facility] Comment: Fasting specimen HDL Cholesterol 58 >40 mg/dL [facility] LDL Cholesterol Calculated 70 0 - 129 mg/dL [facility] Comment: LDL Cholesterol is the primary guide to therapy: LDL-cholesterol goal in high risk patients is <100 mg/dL and in very high risk patients is <70 mg/dL. VLDL-Cholesterol 22 0 - 30 mg/dL [facility] Cholesterol/HDL Ratio 2.6 0.0 - 5.0 [facility] Specimen Anatomical Collection Method Collection Time Receive d Time (Source) Location / / Volume Laterality Blood specimen 11/13/2013 9:56 AM 014 9:57 (specimen) CDT AM CDT Raghavendra Deras MD LAB - BLOOD ORDERABLES Performing Organization Address City/State/ZIP Code Phon e Number [facility] [address] [place] [address] [facility] documented in this encounter Visit Diagnoses Diagnosis Hyperlipidemia LDL goal <130 Other and unspecified hyperlipidemia Hypertension goal BP (blood pressure) < 140/90 Unspecified essential hypertension documented in this encounter Care Teams Hand Alterations Tailor Relationship Specialty Start Date End Date Raghavendra Deras MD PCP - General Family Practice 10/07/13 documented as of this encounter
--- OUTSIDE RECORDS SUMMARY | 2021-12-08 09:37 | XMS_ITS | Encounter Summary ---
:1945 Author Organization [place] Address [address] [facility] [place] [address] Care Team Providers Name Role Phone Raghavendra Deras MD Primary Care Provider Unavailable Reason for Visit Reason Onset Date Comments Patient/info Update 04/21/2014 BP check Encounter Details Date Type Department Care Team Description 04/21/2014 Telephone [facility] Raghavendra Deras Pati ent/info Update (BP Clinic [place] MD check) [address] [place] [address] Social History Tobacco Use Types Packs/Day Years Used Date Smoking Tobacco: Former Cigarettes 0.5 20 Quit : 02/06/1984 Smokeless Tobacco: Never Alcohol Use Standard Drinks/Week Comments Yes 1.7 (1 standard drink = 0.6 oz pure alco hol) occasional Sex Assigned at Date Recorded Male 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 Martha Dias Graphic Specialist Telephone Encounter - Ariella Davidson - 04/21/2014 2:04 PM CDT LVM asking patient to call the clinic, please inform him the message below. Ariella Davidson Graphic Specialist Telephone Encounter - Raghavendra Deras MD - [...] normal range. Pt can be reached at [phone] for further plan. Phoenix Dubois CMA documented in this encounter Plan of Treatment Not on filedocumented as of this encounter Visit Diagnoses Not on filedocumented in this encounter Care Teams Acrylic Fabricator Relationship Specialty Start Date End Date Raghavendra Deras MD PCP - General Family Practice 10/07/13 documented as of this encounter
--- OUTSIDE RECORDS SUMMARY | 2021-12-08 09:37 | XMS_ITS | Encounter Summary ---
:1945 Author Organization [place] Address [address] [facility] [address] Care Team Providers Name Role Phone Nasir Velazquez MD Primary Care Provider [phone] Reason for Visit Reason Onset Date Comments Nurse Advice Line 01/09/2013 abdominal pain Encounter Details Date Type Department Care Team Description 01/09/2013 Telephone [facility] Nasir Velazquez Nurse Advice Line [facility] [place] MD Geraldo (abdominal pain) [address] [place] [address] [place] [phone] [facility] [phone] [place] [address] (Wo rk) Social History Tobacco Use Types Packs/Day Years Used Date Smoking Tobacco: Former Cigarettes Quit : 02/06/1984 Smokeless Tobacco: Never Alcohol Use Standard Drinks/Week Comments Yes 1.7 (1 standard drink = 0.6 oz pure alco hol) moderate Sex Assigned at Date Recorded Male 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 Ricky Barnhart, RN PASTRY CHEF documented in this encounter Plan of Treatment Not on filedocumented as of this encounter Visit Diagnoses Not on filedocumented in this encounter Care Teams Junior Administrative Assistant Relationship Specialty Start Date End Date Nasir Velazquez MD PCP - General 02/18/99 10/06/13 [place] [id number] [place] [address] documented as of this encounter
--- OUTSIDE RECORDS SUMMARY | 2021-12-08 09:37 | XMS_ITS | Encounter Summary ---
:1945 Author Organization [place] Address [address] [place] [address] Care Team Providers Name Role Phone Nasir Velazquez MD Primary Care Provider Reason for Visit Reason Comments Abdominal Pain Encounter Details Date Type Department Care Team Description 01/09/2013 Emergency [facility] Mckay Lizama Abdomina l pain, other [facility] Del Cid MD specified site [address] [facility] EMERGENCY PHYSICIANS (Primary Dx) [facility] [id number] [address] [facility] [phone] [place], [place] [address] (Wo rk) Social History Tobacco Use Types Packs/Day Years Used Date Smoking Tobacco: Former Cigarettes Quit : 02/06/1984 Smokeless Tobacco: Never Alcohol Use Standard Drinks/Week Comments Yes 1.7 (1 standard drink = 0.6 oz pure alco hol) moderate Sex Assigned at Date Recorded Male 01/15/2018 11:39 PM 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 documented as of this encounter Last Filed Vital Signs Vital Sign Reading Time Taken Comments Blood Pressure 141/84 01/09/2013 8:15 PM 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 Pulse - - Temperature 36.2 ??C (97.1 ??F) 01/09/2013 5:34 PM 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 Respiratory Rate 18 01/09/2013 6:30 PM 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 Oxygen Saturation 97% 01/09/2013 7:00 PM 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 Inhaled Oxygen Concentration - - Weight - - Height - - Body Mass Index - - documented in this encounter Discharge Instructions Discharge InstructionsMckay Lizama MD - 01/09/2013 8:24 PM 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 Discharge Instructions Abdominal Pain Abdominal pain can [...] Signs of dehydration can be: o Your infant has had no wet diapers in 4-5 hours. o Your older child has not passed urine in 6-8 hours. o Your infant or child starts to have dry mouth [...] directed by your doctor today. Before using fcch-lrt-[id number] medications, ask your doctor and make sure [...] or if there is anythingthat worries you. EN PRINTING PRESS OPERATOR documented in this encounter Medications at Time [...] Hyperlipidemia LDL goal <130 fluticasone (FLONASE) 50 [place] 1-2 sprays 1 Package 3 03/2101/10/2013 MCG/ACT [...] PM CST Bladder scan 214ml post void. EN PRINTING PRESS OPERATOR Mckay Lizama MD - 01/09/2013 5:38 PM [...] patient was discharged with prescriptions for Ibuprofen, [place], and Zofran. Findings and plan explained to [...] diagnosis: 1. Abdominal pain of unclear etiology I, Tiffanie Cuellar, am serving as a scribe on 01/09/2013 at 5:40 PM to personally document services performed by Dr. Lizama based on my observations and the provider's statements to me. Mckay Lizama MD 01/12/13 1417 EN PRINTING PRESS OPERATOR documented in this encounter Miscellaneous Notes Initial Assessments - Scan, Non-Provider - 01/15/2013 1:12 PM CST EN PRINTING PRESS OPERATOR documented in this encounter Plan of Treatment Not on filedocumented as of this encounter Procedures Procedure Name Priority Date/Time Associated Comments Diagnosis ROUTINE UA WITH STAT 01/09/2013 7:33 PM Result s for this MICROSCOPIC 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 procedure are i n the results section. CT ABDOMEN PELVIS W STAT 01/09/2013 7:23 PM Re sults for this CONTRAST 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 procedure are i n the results section. CBC WITH PLATELETS & STAT 01/09/2013 5:55 PM R esults for this DIFFERENTIAL 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 procedure are i n the results section. LIPASE STAT 01/09/2013 5:55 PM Results f or this 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 procedure are i n the results section. LACTIC ACID STAT 01/09/2013 5:55 PM Results f or this 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 procedure are i n the results section. HEPATIC FUNCTION STAT 01/09/2013 5:55 PM Resul ts for this PANEL 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 procedure are i n the results section. CRP INFLAMMATION STAT 01/09/2013 5:55 PM Resul ts for this 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 procedure are i n the results section. BASIC METABOLIC PANEL STAT 01/09/2013 5:55 PM Results for this 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 procedure are i n the results section. documented in this encounter Results UA with Microscopic (01/09/2013 7:33 PM 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) [facility] Method Time Signature Color Urine Light Yellow [facility] Appearance Urine Clear [facility] Glucose Urine Negative NEG mg/dL [facility] Bilirubin Urine Negative NEG [facility] Ketones Urine Negative NEG mg/dL [facility] Specific [place] 1.018 1.003 - [place] Urine 1.035 [facility] Blood Urine Negative NEG [facility] pH Urine 6.5 5.0 - 7.0 [place] pH [facility] Protein Albumin Negative NEG mg/dL [facility] Urobilinogen Normal 0.0 - 2.0 [place] mg/dL mg/dL [facility] Nitrite Urine Negative NEG [facility] Leukocyte Negative NEG [place] Esterase Urine [facility] Source Midstream [facility] WBC Urine <1 0 - 2 [facility] RBC Urine 2 0 - 2 [facility] Specimen Anatomical Collection Method Collection Time Receive d Time (Source) Location / / Volume Laterality Urine specimen URINE SPECIMEN 01/09/2013 7:33 PM 01/09 7:35 (specimen) OBTAINED BY CLEAN 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 PM 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 CATCH PROCEDURE / Unknown Mckay Lizama MD LAB - URINE ORDERABLES Performing Organization Address City/State/ZIP Code Phon e Number M [facility] [address] [address] [facility] CT Abdomen Pelvis w Contrast (01/09/2013 7:23 PM 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) Anatomical Region Laterality Modality Abdomen/Pelvis, SUBRAD CT BODY, UMP CT ABDOMEN PELVIS Computed Tomography Specimen (Source) Anatomical Location Collection Method / Collectio n Time Received Time / Laterality Volume Impressions 01/09/2013 7:40 PM 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 IMPRESSION: Colonic diverticulosis with no evidence of diverticulitis. ?? LC JIMÉNEZ MD Narrative 01/09/2013 7:40 PM 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 CT ABDOMEN AND PELVIS WITH CONTRAST ??01/09/2013 [...] ORDERABLES (ABNORMAL) CRP inflammation (01/09/2013 5:55 PM 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) [facility] Method Time Signature CRP Inflammation 8.4 (H) 0.0 - 8.0 [place] mg/L [facility] Specimen Anatomical Collection Method Collection Time Receive d Time (Source) Location / / Volume Laterality Blood specimen 01/09/2013 5:55 PM 013 6:03 (specimen) 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 PM 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 Mckay Lizama MD LAB - BLOOD ORDERABLES Performing Organization Address City/[facility]/ZIP Code Phon e Number [facility] [address] [place], [place] [address] [facility] Lipase (01/09/2013 5:55 PM 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) athologist Signature Lipase 159 20 - 250 [facility] U/L [facility] Specimen Anatomical Collection Method Collection Time Receive d Time (Source) Location / / Volume Laterality Blood specimen 01/09/2013 5:55 PM 013 6:03 (specimen) 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 PM 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 Mckay Lizama MD LAB - BLOOD ORDERABLES Performing Organization Address City/[facility]/ZIP Code Phon e Number [place] [address] [place], [place] [address] [facility] Lactic acid (01/09/2013 5:55 PM 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) athologist Signature Lactic Acid 0.9 0.7 - 2.1 [place] mmol/L [facility] Specimen Anatomical Collection Method Collection Time Receive d Time (Source) Location / / Volume Laterality Blood specimen 01/09/2013 5:55 PM 013 6:03 (specimen) 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 PM 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 Mckay Lizama MD LAB - BLOOD ORDERABLES Performing Organization Address City/[facility]/ZIP [facility] Phon e Number [facility] [address] [place], [place] [address] [facility] Hepatic panel (01/09/2013 5:55 PM 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) athologist Signature Bilirubin 0.0 0.0 - 0.3 [place] Conjugated mg/dL [facility] Bilirubin Delta 0.1 0.0 - 0.4 [place] mg/dL [facility] Bilirubin Total 0.7 0.2 - 1.3 [place] mg/dL [facility] Albumin 4.5 3.3 - 4.9 [place] g/dL [facility] Protein Total 7.8 6.8 - 8.8 [place] g/dL [facility] Alkaline 102 40 - 150 [place] Phosphatase U/L [facility] ALT 49 0 - 70 U/L [facility] AST 34 0 - 45 U/L [facility] Specimen Anatomical Collection Method Collection Time Receive d Time (Source) Location / / Volume Laterality Blood specimen 01/09/2013 5:55 PM 013 6:03 (specimen) 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 PM 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 Mckay Lizama MD LAB - BLOOD ORDERABLES Performing Organization Address City/State/ZIP Code Phon e Number [facility] [address] [place], [place] [address] [facility] (ABNORMAL) Basic metabolic panel (01/09/2013 5:55 PM 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) P athologist Signature Sodium 138 133 - 144 [place] mmol/L [facility] Potassium 3.3 (L) 3.4 - 5.3 [place] mmol/L [facility] Chloride 100 94 - 109 [place] mmol/L [facility] Carbon Dioxide 28 20 - 32 [place] mmol/L [facility] Anion Gap 11 6 - 17 [place] mmol/L [facility] Glucose 96 60 - 99 [place] mg/dL [facility] Urea Nitrogen 15 7 - 30 [place] mg/dL [facility] Creatinine 1.02 0.66 - [facility] 1.25 mg/dL [facility] GFR Estimate 73 >60 [place] mL/min/1.[address] LAB GFR Estimate If 88 >60 [place] Black mL/min/1.[address] [place] [address] LAB Calcium 9.3 8.5 - 10.4 [place] mg/dL [facility] Specimen Anatomical Collection Method Collection Time Receive d Time (Source) Location / / Volume Laterality Blood specimen 01/09/2013 5:55 PM 013 6:03 (specimen) 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 PM 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 Mckay Lizama MD LAB - BLOOD ORDERABLES Performing Organization Address City/State/ZIP Code Phon e Number [facility] [address] [place], [place] [address] [facility] (ABNORMAL) CBC with platelets differential (01/09/2013 5:55 PM 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) [facility] gist Method Time Signature WBC 8.0 4.0 - [place] 11.0 [facility] 10e9[facility] RBC Count 4.61 4.4 - 5.9 [place] 10e12/L [facility] Hemoglobin 13.6 13.3 - [place] 17.7 g/dL [facility] Hematocrit 39.4 (L) 40.0 - [place] 53.0 % [facility] MCV 86 78 - 100 [place] fl [facility] MCH 29.5 26.5 - [place] 33.0 pg [facility] MCHC 34.5 31.5 - [place] 36.5 g/dL [facility] RDW 13.4 10.0 - [place] 15.0 % [facility] Platelet Count 168 150 - [address] LAB Diff Method Automated [facility] % Neutrophils 74.1 % [facility] % Lymphocytes 17.2 % [facility] % Monocytes 7.5 % [facility] % Eosinophils 0.6 % [facility] % Basophils 0.3 % [facility] % Immature 0.3 % [place] Granulocytes [facility] Absolute 5.9 1.6 - 8.3 [place] Neutrophil 109/L [facility] Absolute 1.4 0.8 - 5.3 [place] Lymphocytes 109[facility] Absolute 0.6 0.0 - 1.3 [place] Monocytes 10e9[facility] Absolute 0.1 0.0 - 0.7 [place] Eosinophils [address] [place] [address] LAB Absolute 0.0 0.0 - 0.2 [place] Basophils 10e9[facility] Abs Immature 0.0 0 - 0.4 [place] Granulocytes [address] [place] [address] LAB Specimen Anatomical Collection Method Collection Time Receive d Time (Source) Location / / Volume Laterality Blood specimen 01/09/2013 5:55 PM 013 6:03 (specimen) 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 PM 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 Mckay Lizama MD LAB - BLOOD ORDERABLES Performing Organization Address City/State/ZIP Code Phon e Number [facility] [address] [place], [place] [address] [facility] documented in this encounter Visit Diagnoses Diagnosis Abdominal pain, other specified site - P rimary documented in this encounter Administered Medications Inactive Administered Medications - up to 3 most recent administrations Medication Order MAR Action Action Date Dose Rate Site iohexol (OMNIPAQUE) 140 mg/mL Given 01/09/2013 6:39 PM 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 25 mL s solution 25 mL 25 mL, Oral, EVERY 30 MIN, First dose on Jenn 01/09/13 at 1800, For 2 doses Given 01/09/2013 5:52 PM 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 25 mLs iopamidol (ISOVUE-370) 76% solution 500 mL Given 01/09/2013 7:21 PM 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 94 mLs 500 mL, Intravenous, ONCE, On Jenn 01/09/13 at 1915, For 1 dose ketorolac (TORADOL) injection 15 mg Given 01/09/2013 5:59 PM 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 15 mg 15 mg, Intravenous, ONCE, On Jenn 01/09/13 at 1800, For 1 dose, Do not give within 6 hours of Ibuprofen. morphine (PF) injection 4 mg Given 01/09/2013 6:00 PM 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 4 mg 4 mg, Intravenous, EVERY 15 MIN PRN, moderate to severe pain, Starting on Jenn 01/09/13 at 1745, For 3 doses ondansetron (ZOFRAN) injection 4 mg Given 01/09/2013 5:58 PM 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 4 mg 4 mg, Intravenous, EVERY 30 MIN PRN, nausea, vomiting, Administer over 2-5 Minutes, Starting on Jenn 01/09/13 at 1745, For 3 doses, May repeat in 30 minutes as needed, up to 3 doses. sodium chloride 0.9 % BOLUS New Bag 01/09/2013 5:57 PM 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 1,000 m Ls 1000 mL/hr 1,000 mL Intravenous, 1,000 mL, ONCE, at 1,000 mL/hr, Administer over 1 Hours, On Jenn 01/09/13 at 1800, For 1 dose sodium chloride 0.9 % BOLUS 1,000 mL New Bag 01/09/2013 7:20 PM 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 64 mLs Intravenous, 1,000 mL, ONCE, On Jenn 01/09/13 at 1915, For 1 dose documented in this encounter Active and Recently Administered Medications Times are shown in 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. Scheduled Medication Order 01/07/2013 01/08/2013 01/09/2013 iohexol [...] Comment: bulk) 500 mL, Intravenous, ONCE, Jenn 13 at 1915, For 1 dose ketorolac (TORADOL) injection 15 mg (COMPLETED) 175 (Given - Provider: Janel Devi RN) 15 mg, Intravenous, ONCE, Jenn 12/13 at 1800, For 1 dose, Do not give within 6 hours of Ibuprofen. sodium chloride 0.9 % BOLUS 1,000 mL (COMPLETED) 175 (New Bag - Provider: Janel Devi RN)191 (Stopped - Provider: Janel Devi RN) Intravenous, 1,000 mL, ONCE, at 1,000 mL /hr, for 1 Hours, Jenn 12/06/17 at 1800, For 1 dose sodium chloride 0.9 % BOLUS 1,000 mL (COMPLETED) 192 (New Bag - Provider: Arin Pandya - Comment: bulk)192 (Stopped - Provider: Arin Pandya) Intravenous, 1,000 mL, ONCE, Jenn 01/09/13 at 1915, For 1 dose PRN Medication Order 01/07/2013 01/08/2013 01/09/2013 morphine (PF) injection 4 mg (CANCELED) 1800 (Given - Provider: Janel Devi RN) 4 mg, Intravenous, EVERY 15 MIN PRN, mod erate to severe pain, Starting Jenn 01/09/13 at 1745, For 3 doses ondansetron (ZOFRAN) injection 4 mg (CANCELED) 175 (Given - Provider: Janel Devi RN) 4 mg, Intravenous, EVERY 30 MIN PRN, suha sea, vomiting, for 2 Minutes, Starting Jenn 01/09/13 at 1745, For 3 doses, May repeat in 30 minutes as needed, up to 3 doses. documented in this encounter Care Teams Instructional Services Specialist Relationship Specialty Start Date End Date Nasir Velazquez MD PCP - General 02/18/99 10/06/13 [facility] [address] [place] [address] documented as of this encounter
--- OUTSIDE RECORDS SUMMARY | 2021-12-08 09:37 | XMS_ITS | Encounter Summary ---
:1945 Author Organization [place] Address [address] [facility] [place] [address] Care Team Providers Name Role Phone Scottie Nicole MD Primary Care Provider [phone] Reason for Visit Auth/Cert - Closed Specialty Diagnoses / Procedures Referred By Contact Refer red To Contact Gastroenterology Diagnoses HX OF POLYPS Rh Endoscopy Procedures COLONOSCOPY [address] [place] [address] Phone: Fax: Referral ID Status Reason Start Date Expiration Date Visits Requ ested Visits Authorized [id number] Closed 1 1 Encounter Details Date Type Department Care Team Description 06/05/2013 Surgery [facility] Endoscopy Matthew Dubose MD COLONOSCOPY [place] [facility] [address] [place] [address] [place], [place] [phone] (Wo rk) Surgery Details Date/Time Status Location [...] Date Recorded Male 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 To help relieve pain, antispasmodic [...] the option of having surgery with you. [place] [facility] Help keep your colon healthy with a diet that includes plenty of high-fiber fruits, vegetables, and whole grains. Drink plenty of liquids like water and juice. Your doctor may also recommend avoiding seeds and nuts. ?? [phone] [place] [address]. All rights reserved. This information is not [...] in old age ??? C.A.D. Maternal Uncle [place] ??? Colon [place] Maternal Uncle ??? Prostatic [...] encounter Results COLONOSCOPY (06/05/2013 9:28 AM CDT) [facility] Method Time Signature COLONOSCOPY [facility] RAD IOLOGY RESULTS Patient Name: Terry sher [...] ?oxygen saturations were monitored continuously. The ?[id number] was introduced through the anus ?and advanced [...] 06/03/2013 06/04/2013 06/05/2013 fentaNYL (SUBLIMAZE) injection (CANCELED) 926 (Given - Provider: Matthew Richardson MD) PRN, Starting Jenn 06/05/13 at 0927, moderate to severe pain, Intra -procedure midazolam (VERSED) injection (CANCELED) 926 (Given - Provider: Matthew Richardson MD) PRN, Starting Jenn 06/05/13 at 0927, anxiety, Intra-procedure documented in this encounter Care Teams Premix Concrete Batcher Relationship Specialty Start Date End Date Scottie Nicole MD PCP - General 02/18/99 10/06/13 [facility] [address] [place] [address] documented as of this encounter
--- OUTSIDE RECORDS SUMMARY | 2021-12-08 09:37 | XMS_ITS | Encounter Summary ---
:1945 Author Organization [place] Address [address] [facility] 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
--- OUTSIDE RECORDS SUMMARY | 2021-12-08 09:37 | XMS_ITS | Encounter Summary ---
:1945 Author Organization [place] Address [facility] [place] [address] Care Team Providers Name Role Phone Raghavendra Deras MD Primary Care Provider Unavailable Reason for Visit Reason Comments Allied Health Visit bp check Encounter Details Date Type Department Care Team Description 04/21/2014 Allied Health/Nurse Health [place] All ied Health Visit (bp Visit Clinic [place] check) [address] [place] [address] Social History Tobacco Use Types Packs/Day Years Used Date Smoking Tobacco: Former Cigarettes 0.5 20 Quit : 02/06/1984 Smokeless Tobacco: Never Alcohol Use Standard Drinks/Week Comments Yes 1.7 (1 standard drink = 0.6 oz pure alco hol) occasional Sex Assigned at Date Recorded Male 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 Pt can be reached at [phone] for further plan. Phoenix Dubois CMA documented in this encounter Plan of Treatment Not on filedocumented as of this encounter Visit Diagnoses Diagnosis BP check - Primary Screening for hypertension documented in this encounter Care Teams Executive Administrative Assistant Relationship Specialty Start Date End Date Raghavendra Deras MD PCP - General Family Practice 10/07/13 documented as of this encounter
--- OUTSIDE RECORDS SUMMARY | 2021-12-08 09:37 | XMS_ITS | Encounter Summary ---
:1945 Author Organization [place] Address [address] [facility] [place] [address] Care Team Providers Name Role Phone Nasir Velazquez MD Primary Care Provider [phone] Encounter Details Date Type Department Care Team Description 08/02/2012 Telephone [facility] Nasir Velazquez [facility] [address] [place] [address] [address] [facility] [phone] 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
--- OUTSIDE RECORDS SUMMARY | 2021-12-08 09:37 | XMS_ITS | Encounter Summary ---
:1945 Author Organization [place] Address [address] [place] [address] Care Team Providers Name Role Phone Raghavendra Deras MD Primary Care Provider Unavailable Reason for Visit Reason Comments Edema swollen ankles x 4-6 weeks Refill Request [facility] like [facility] Encounter Details Date Type Department Care Team Description 10/01/2014 Office Visit [facility] Raghavendra Deras Hypertens ion goal BP (blood pressure) < 140/90 (Primary Dx); Clinic Candy Alan MD Hyperlipidemia LDL goal <130 ; [id number] [employer] History of peptic ulcer dise ase; [place], [place] Benign prostat ic hypertrophy with lower urinary tract symptoms (LUTS); [address] Need for vaccination against Streptococcus pneumoniae [phone] Social History Tobacco Use Types Packs/Day Years Used Date Smoking Tobacco: Former Cigarettes 0.5 20 Quit : 02/06/1984 Smokeless Tobacco: Never Alcohol Use Standard Drinks/Week Comments Yes 1.7 (1 standard drink = 0.6 oz pure alco hol) occasional Sex Assigned at Date Recorded 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 He [...] doxazosin. Denies any dysuria, hematuria,or groin pain. Britely PSA Date Value Ref Range Status 12/31/2002 0.4 <0R=4.0 NG/ML Final Comment: PSA VALUES FROM DIFFERENT ASSAY METHODS CANNOT BE USED INTERCHANGEABLY. THIS ASSAY WAS PERFORMED USING THE iovation CHEMILUMINESCENT METHOD. PSA Date Value Ref Range [...] Diabetes Maternal Grandmother ??? C.A.D. Maternal Uncle [place] ??? Cancer - colorectal Maternal Uncle ??? [...] VACCINE 13 VALENT IM Raghavendra Deras MD [facility] documented in this encounter Nursing Notes Raudel Garcia CMA - 10/01/2014 10:49 AM CDT Chief Complaint Patient presents with ??? Edema swollen ankles x 4-6 weeks ??? Refill Request [facility] like [facility] Initial BP 122/74 mmHg Pulse 61 Temp(Src) 98.2 ??F (36.8 ??C) (Oral) Ht 5' 9 (1.753 m) Wt 201 lb (91.173 kg) BMI 29.67 kg/m2 SpO2 97% Estimated body mass index is 29.67 kg/(m^2) as calculated from the following: Height as of this encounter: 5' 9 (1.753 m). Weight as of this encounter: 201 lb (91.173 kg). BP completed using cuff size: regular Raudel Garcia CMA documented in this encounter Plan [...] Basic metabolic panel (10/01/2014 11:49 AM CDT) [facility] Method Time Signature Sodium 141 133 - 144 [place] mmol/L [facility] Potassium 3.5 3.4 - 5.3 [place] mmol/L [facility] Chloride 106 94 - 109 [place] mmol/L [facility] Carbon Dioxide 24 20 - 32 [place] mmol/L [facility] Anion Gap 11 3 - 14 [place] mmol/L [facility] Glucose 119 (H) 70 - 99 [place] mg/dL [facility] Urea Nitrogen 15 7 - 30 [place] mg/dL [facility] Creatinine 0.92 0.66 - [place] 1.25 mg/dL [facility] GFR Estimate 81 >60 [place] mL/min/1.7 CLINICS m2 [facility] Comment: Non GFR Calc GFR Estimate If >90 >60 mL/min/1.7m2 [facility] Black GFR Calc [facility] Calcium 9.2 8.5 - 10.1 mg/dL [place] CLIN ICS [facility] Specimen Anatomical Collection Method Collection Time Receive d Time (Source) Location / / Volume Laterality Blood specimen 10/01/2014 11:49 5 (specimen) AM CDT 11:50 AM CDT Raghavendra Deras MD LAB - BLOOD ORDERABLES Performing Organization Address City/State/ZIP Code Phon e Number [facility] [address] [place] [address] UA reflex to Microscopic and Culture (10/01/2014 11:49 AM CDT) [facility] Method Time Signature Color Urine Yellow [facility] Appearance Urine Clear [facility] Glucose Urine Negative NEG mg/dL [facility] Bilirubin Urine Negative NEG [facility] Ketones Urine Negative NEG mg/dL [facility] Specific [employer] 1.020 1.003 - [place] Urine 1.035 [facility] Blood Urine Negative NEG [facility] pH Urine 6.0 5.0 - 7.0 [place] pH [facility] Protein Albumin Negative NEG mg/dL [facility] Urobilinogen 0.2 0.2 - 1.0 [place] Urine EU/dL [facility] Nitrite Urine Negative NEG [facility] Leukocyte Negative NEG [place] Esterase Urine [facility] Source Midstream [place] Urine [facility] Specimen Anatomical Collection Method Collection Time Receive d Time (Source) Location / / Volume Laterality Urine specimen 10/01/2014 11:49 5 (specimen) AM CDT 11:50 AM CDT Raghavendra Deras MD LAB - URINE ORDERABLES Performing Organization Address City/State/ZIP Code Phon e Number [facility] [address] [place] [address] documented in this encounter Visit Diagnoses Diagnosis [...] (pneumococcus) documented in this encounter Care Teams Pre Press Operator Relationship Specialty Start Date End Date Raghavendra Deras MD PCP - General Family Practice 10/07/13 documented as of this encounter
--- OUTSIDE RECORDS SUMMARY | 2021-12-08 09:37 | XMS_ITS | Encounter Summary ---
:1945 Author Organization [place] Address [address] [facility] [place] [address] Care Team Providers Name Role Phone Nasir Velazquez MD Primary Care Provider [phone] Reason for Visit Reason Comments Abdominal Pain Auth/Cert - Closed Specialty Diagnoses / Procedures Referred By Contact Refer red To Contact Med Surg Diagnoses Nausea with vomiting [id number] [facility] Observation Dept [address] [place], [place] [address] Phone: Referral ID Status Reason Start Date Expiration Date Visits Requ ested Visits Authorized Closed 01/10/2013 07/09/2013 Encounter Details Date Type Department Care Team Description 01/10/2013 Emergency [facility] Preston Paulson MD [facility] [address] [place], [place] [id number] Nausea with vomiting (Primary Dx); Aftab Lea MD [address] [place] [address] Abdominal pain, generalized; Dept Hypokalemia; [address] HYPERTROPHY of PROSTATE ; [place], [place] Esophageal re flux; [phone] Hyperlipidemia LDL goal <130 Social History Tobacco Use Types Packs/Day Years Used Date Smoking Tobacco: Former Cigarettes Quit : 02/06/1984 Smokeless Tobacco: Never Alcohol Use Standard Drinks/Week Comments Yes 1.7 (1 standard drink = 0.6 oz pure alco hol) moderate Sex Assigned at Date Recorded Male 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 encounter Last Filed Vital Signs Vital Sign Reading Time Taken Comments Blood Pressure 130/71 01/10/2013 8:27 PM CASING IN LINE SETTER Pulse 69 01/10/2013 8:27 PM CASING IN LINE SETTER Temperature 35.8 ??C (96.5 ??F) 01/10/2013 8:22 PM CASING IN LINE SETTER Respiratory Rate 16 01/10/2013 8:27 PM CASING IN LINE SETTER Oxygen Saturation 96% 01/10/2013 8:27 PM CASING IN LINE SETTER Inhaled Oxygen Concentration - - Weight 96 kg (211 lb 10.3 oz) 01/10/2013 6:16 AM CASING IN LINE SETTER Height 175.3 cm (5' 9.02) 01/10/2013 6:16 AM CASING IN LINE SETTER Body Mass Index 31.24 01/10/2013 6:16 AM CASING IN LINE SETTER documented in this encounter Discharge Summaries Deedee Poole PA-C - 01/10/2013 4:19 PM CST [facility] Discharge Summary Terry Montero Date of [...] these medications which have NOT CHANGED Details Huntington-3 Fatty Acids (FISH OIL PO) Take 300 [...] with no focal deficits. Deedee Poole PA-C NG IN LINE SETTER Charlie Alexander MD - 01/10/2013 4:19 PM CST Patient seen and examined by me independently .Medical records reviewed and plan of care was discussed with Deedee Poole PA-C I agree with discharge summary NG IN LINE SETTER documented in this encounter Medications at Time [...] every 6 hours as needed for pain Huntington-3 Fatty Acids (FISH Take 300 mg by [...] May need re-imaging if symptoms get worse NG IN LINE SETTER Ivone Montero CM - 01/10/2013 9:30 AM CST Care Transitions Assessment: Spoke with the patient at the bedside. Confirmed demographics and that Dr. Velazquez is pts PCP. Pt agreeable for d/c appt facilitation. Appt scheduled for 01/15 at 1100. Pt updated and denies any further needs for discharge. Ivone Montero RN, BSN Care Sustainability Coach [phone] NG IN LINE SETTER Snow Allen PA-C - 01/10/2013 9:20 AM [...] as dilaudid caused nausea. Snow Allen PA-C NG IN LINE SETTER documented in this encounter H&P Notes Aftab Givens MD - 01/10/2013 6:24 AM CST [facility] Hospitalist Admission Note Name: Terry Montero [...] is retired he used to work for [employer] in the [employer] Family History: Family History Problem Relation Age of Onset ??? Diabetes Maternal Grandmother ??? Stroke Maternal Grandmother in old age ??? C.A.D. Maternal Uncle [place] ??? Colon [place] Maternal Uncle ??? Prostatic [...] 01/10/2013 MCV 86 01/10/2013 PLT 150 01/10/2013 NG IN LINE SETTER documented in this encounter ED Notes Kae Snow RN - 01/10/2013 2:42 PM CST Up walking the halls. States nausea improved with ambulating. Wants to try eating in a few hours andthen go home NG IN LINE SETTER Volodymyr Paulson MD - 01/10/2013 4:03 AM [...] a maternal history of diabetes, stroke, and [place]. The patient reports a paternal history of [...] to admission. [facility] observation, evaluation, and treatment. Impression [...] 1. Abdominal pain 2. Hypokalemia 3. Vomiting I, Alfredo Beal, am serving as a scribe at 4:03 AM on 01/10/2013 to document services personally performed by Volodymyr Paulson MD, based on my observations and the provider's statements to me. Volodymyr Paulson MD 01/10/13 0528 NG IN LINE SETTER Nunu Carmen RN - 01/10/2013 3:56 AM CST Pt was seen earlier return of lower abdominal pain 11/14. NG IN LINE SETTER documented in this encounter Miscellaneous Notes Plan of Care - Pablo Dias RN - 01/10/2013 8:00 PM CST Problem: IP GENERAL POC-ADULT,OB,BEHAVIORAL FVCPM Goal: Individualization/Patient-Specific Goal (Adult,OB,Behavioral The patient and/or their distribution sales representative will achieve their patient-specific goals [...] Pt. Will go home with oxycodone prescription. NG IN LINE SETTER Plan of Care - Pablo Dias RN - 01/10/2013 6:50 PM CST Problem: IP GENERAL POC-ADULT,OB,BEHAVIORAL FVCPM Goal: Individualization/Patient-Specific Goal (Adult,OB,Behavioral The patient and/or their distribution sales representative will achieve their patient-specific goals [...] review provider orders for any additional goals. NG IN LINE SETTER Plan of Care - Lynette Arshad RN [...] review provider orders for any additional goals. NG IN LINE SETTER Pharmacy-Admission Medication History - Chelsie Patino RP - 01/10/2013 9:14 AM CST Admission medication history interview status for this observation patient is complete. See [facility] admission navigator for allergy information, prior to admission medications and immunization status. Medication history interview source(s): Patient Medication history resources (including written lists, pill bottles, clinic record): None Primary pharmacy: [facility], Changes made to CLINICAL SUPPORT NURSE medication list: Added: none Deleted: no longer taking glucosamine Changed: updated doses/directions for all CLINICAL SUPPORT NURSE medications Actions taken by pharmacist (provider contacted, etc): None Home medications brought in with patient: Patient does not currently have any home medications with him, except the prescriptions for [place], Zofran, and Motrin which were filled here yesterday after patient's ED visit. Prior to Admission medications Medication Sig Last Dose Taking? Auth Provider Huntington-3 Fatty Acids (FISH OIL PO) Take 300 [...] by mouth daily. 01/09/2013 at AM Yes aNsir Velazquez MD omeprazole (PRILOSEC) 40 MG capsule [...] More than a month No Reported, Patient NG IN LINE SETTER Plan of Care - Lynette Arshad RN - 01/10/2013 8:58 AM CST Problem: [...] review provider orders for any additional goals. NG IN LINE SETTER Plan of Care - Lynette Arshad RN - 01/10/2013 8:11 AM CST Problem: [...] review provider orders for any additional goals. NG IN LINE SETTER Plan of Care - Suze Carranza RN - 01/10/2013 7:09 [...] review provider orders for any additional goals. NG IN LINE SETTER documented in this encounter Plan of Treatment Not on filedocumented as of this encounter Procedures Procedure Name Priority Date/Time Associated Diagnosis Comme nts POTASSIUM STAT 01/10/2013 7:14 AM Results f or this CASING IN LINE SETTER procedure are i n the results section. LACTIC ACID STAT 01/10/2013 4:00 AM Results f or this CASING IN LINE SETTER procedure are i n the results section. BASIC METABOLIC Routine 01/10/2013 4:00 AM Result s for this PANEL CASING IN LINE SETTER procedure are i n the results section. CBC WITH PLATELETS STAT 01/10/2013 4:00 AM Res ults for this CASING IN LINE SETTER procedure are i n the results section. documented in this encounter Results Potassium (01/10/2013 7:14 AM CASING IN LINE SETTER) athologist Signature Potassium 3.4 3.4 - 5.3 [facility] mmol/L [facility] LAB Specimen Anatomical Collection Method Collection Time Receive d Time (Source) Location / / Volume Laterality Blood specimen 01/10/2013 7:14 AM 013 7:20 (specimen) CASING IN LINE SETTER AM CASING IN LINE SETTER Charlie Alexander MD LAB - BLOOD ORDERABLES Performing Organization Address City/State/ZIP Code [facility] e Number [place] [address] LAB (ABNORMAL) Basic metabolic panel (01/10/2013 4:00 AM CASING IN LINE SETTER) athologist Signature Sodium 139 133 - 144 [place] mmol/L [facility] Potassium 3.0 (L) 3.4 - 5.3 [place] mmol/L [facility] Chloride 100 94 - 109 [place] mmol/L [facility] Carbon Dioxide 26 20 - 32 [place] mmol/L [facility] Anion Gap 13 6 - 17 [place] mmol/L [facility] Glucose 127 (H) 60 - 99 [place] mg/dL [facility] Urea Nitrogen 16 7 - 30 [facility] mg/dL [facility] Creatinine 1.23 0.66 - [place] 1.25 mg/dL [facility] GFR Estimate 59 (L) >60 [place] mL/min/1.[address] LAB GFR Estimate If 71 >60 [place] mL/min/1.[address] LAB Calcium 9.2 8.5 - 10.4 [place] mg/dL [facility] LAB Specimen Anatomical Collection Method Collection Time Receive d Time (Source) Location / / Volume Laterality 01/10/2013 4:00 AM 3 4:13 CASING IN LINE SETTER AM CASING IN LINE SETTER Volodymyr Paulson MD LAB - BLOOD ORDERABLES Performing Organization Address [facility]/ZIP [facility] Phon rickey [place] [address] [address], [place] [address] [facility] LAB (ABNORMAL) CBC (platelets, no diff) (01/10/2013 4:00 AM CASING IN LINE SETTER) Analysis Performed At Patho logist Time Signature WBC 6.5 4.0 - 11.0 [place] 10e9/L [facility] RBC Count 4.40 4.4 - 5.9 [place] 10e12/L [facility] Hemoglobin 13.0 (L) 13.3 - [place] 17.7 g/dL [facility] Hematocrit 37.7 (L) 40.0 - [place] 53.0 % [facility] MCV 86 78 - 100 [facility] LAB MCH 29.5 26.5 - [place] 33.0 pg [facility] LAB MCHC 34.5 31.5 - [place] 36.5 g/dL [facility] RDW 13.5 10.0 - [place] 15.0 % [facility] Platelet Count 150 150 - 450 [place] 10e9/L [facility] Specimen Anatomical Collection Method Collection Time Receive d Time (Source) Location / / Volume Laterality Blood specimen 01/10/2013 4:00 AM 013 4:13 (specimen) CASING IN LINE SETTER AM CASING IN LINE SETTER Volodymyr Paulson MD LAB - BLOOD ORDERABLES Performing Organization Address [facility]/ZIP [facility] Phon rickey [place] [address] [address], [place] [address] [facility] LAB Lactic acid (01/10/2013 4:00 AM CASING IN LINE SETTER) P athologist Signature Lactic Acid 1.1 0.7 - 2.1 [place] mmol/L [facility] LAB Specimen Anatomical Collection Method Collection Time Receive d Time (Source) Location / / Volume Laterality Blood specimen 01/10/2013 4:00 AM 013 4:13 (specimen) CASING IN LINE SETTER AM CASING IN LINE SETTER Volodymyr Paulson MD LAB - BLOOD ORDERABLES Performing Organization Address City/State/ZIP Code Phon e Number [facility] [address] [place], [place] [address] [facility] LAB documented in this encounter [...] NaCl + New Bag 01/10/2013 5:30 PM CASING IN LINE SETTER 75 mL/hr KCl 20 mEq/L at 75 mL/hr, Intravenous, CONTINUOUS, Change to saline lock when PO well tolerated., Starting on Sun01/10/13 at 0630, Until Sun01/10/13 at 2237 Rate/Dose Change 01/10/2013 10:16 AM CASING IN LINE SETTER 75 mL/hr Rate/Dose Verify 01/10/2013 7:31 AM CASING IN LINE SETTER 125 mL/hr HYDROmorphone (PF) (DILAUDID) injection 0.5 Given 01/10/2013 4:16 AM CASING IN LINE SETTER 0.5 mg mg 0.5 mg, Intravenous, ONCE, On Sun01/10/13 at 0415, For 1 dose metoclopramide (REGLAN) injection 10 mg Given 01/10/2013 4:30 AM CASING IN LINE SETTER 10 mg 10 mg, Intravenous, ONCE, On Sun01/10/13 at 0430, For 1 dose, Avoid use if patient has full bowel obstruction or perforation. morphine (PF) injection 4 mg Given 01/10/2013 5:09 AM CASING IN LINE SETTER 4 mg 4 mg, Intravenous, ONCE, On Sun01/10/13 at 0515, For 1 dose omeprazole (priLOSEC) capsule 40 mg Given 01/10/2013 12:35 PM CASING IN LINE SETTER 40 mg 40 mg, Oral, DAILY, First dose on Sun01/10/13 at 0800 ondansetron (ZOFRAN) injection 4 mg Given 01/10/2013 4:16 AM CASING IN LINE SETTER 4 mg 4 mg, Intravenous, ONCE, Administer over 2-5 Minutes, On Sun01/10/13 at 0415, For 1 dose potassium chloride SA (K-DUR,KLOR-CON M) CR Given 01/10/2013 5:07 AM CASING IN LINE SETTER 40 mEq tablet 40 mEq 40 mEq, Oral, ONCE, On Sun01/10/13 at 0500, For 1 dose, DO NOT CRUSH. sodium chloride (PF) 0.9% PF flush 3 mL Given 01/10/2013 6:49 AM CASING IN LINE SETTER 3 mLs 3 mL, Intravenous, EVERY 8 HOURS, First dose on Sun01/10/13 at 0630, And Q1H PRN, to lock peripheral IV dormant line. sodium chloride 0.9 % BOLUS New Bag 01/10/2013 4:15 AM CASING IN LINE SETTER 1,000 m Ls 1000 mL/hr 1,000 mL Intravenous, 1,000 mL, ONCE, at 1,000 mL/hr, Administer over 1 Hours, On Sun01/10/13 at 0415, For 1 dose documented in this encounter Active and Recently Administered Medications Times are shown in CASING IN LINE SETTER. Scheduled Medication Order 01/08/2013 01/09/2013 01/10/2013 HYDROmorphone (PF) (DILAUDID) injection 0.5 mg (COMPLETED) 415 (Given - Provider: Ally Leon RN) 0.5 mg, Intravenous, ONCE, 1 dose, Sun01/10/13 at 0415 metoclopramide (REGLAN) injection 10 mg (COMPLETED) 043 (Given - Provider: Ally Leon RN) 10 [...] 0800 ondansetron (ZOFRAN) injection 4 mg (COMPLETED) 041 (Given - Provider: Ally Leon RN) 4 mg, Intravenous, ONCE, for 2 Minutes, Sun01/10/13 at 0415, For 1 dose potassium chloride SA (K-DUR,KLOR-CON M) CR tablet 40 mEq (COMPL ETED) 0507 (Given - Provider: Ally Leon RN) 40 mEq, Oral, ONCE, Sun01/10/13 at [...] chloride 0.9 % BOLUS 1,000 mL (COMPLETED) 0415 (New Bag - Provider: Ally Leon RN) Intravenous, 1,000 mL, ONCE, at 1,000 mL /hr, for 1 Hours, Sun01/10/13 at 0415, For 1 dose Continuous Medication Order 01/08/2013 01/09/2013 01/10/2013 dextrose 5 % and 0.45 % NaCl + KCl 20 mEq/L (CANCELED) 0657 (Started - Provider: Suze Carranza RN)0731 (Rate/Dose Verify - Provider: Lynette Arshad RN)1016 (Rate/Dose Change - Provider: Lynette Arshad RN)1730 (New Bag - Provider: George Lantigua, ALVERTO)1823 (Stopped - Provider: Pablo Dias RN) at 75 mL/hr, Intravenous, CONTINUOUS, Ch evaristo to saline lock when PO well tolerated. PRN Medication Order 01/08/2013 01/09/2013 01/10/2013 oxyCODONE (ROXICODONE) immediate release tablet 5-10 mg 5-10 mg, Oral, EVERY 3 HOURS PRN, modera te to severe pain, Starting Sun01/10/13 at 0621 documented in this encounter Care Teams Developmental Psychologist Relationship Specialty Start Date End Date Nasir Velazquez MD PCP - General 02/18/99 10/06/13 [facility] [address] [place] [address] documented as of this encounter
--- OUTSIDE RECORDS SUMMARY | 2021-12-08 09:37 | XMS_ITS | Encounter Summary ---
:1945 Author Organization [place] Address [address] [facility] [place] [address] Care Team Providers Name Role Phone Scottie Nicole MD Primary Care Provider [phone] Reason for Visit Auth/Cert - Closed Specialty Diagnoses / Procedures Referred By Contact Refer red To Contact Gastroenterology Diagnoses HX OF POLYPS Rh Endoscopy Procedures COLONOSCOPY [address] [place] [address] Phone: Fax: Referral ID Status Reason Start Date Expiration Date Visits Requ ested Visits Authorized [id number] Closed 1 1 Encounter Details Date Type Department Care Team Description 06/05/2013 Hospital Encounter [facility] Matthew Richardson , Endoscopy [facility] [address] [place], [place] GASTROINTESTINAL [address] [phone] [place], [place] [id number] (Wo rk) Social History Tobacco Use Types Packs/Day Years Used Date Smoking Tobacco: Former Cigarettes Quit : 02/06/1984 Smokeless Tobacco: Never Alcohol Use Standard Drinks/Week Comments Yes 1.7 (1 standard drink = 0.6 oz pure alco hol) moderate Sex Assigned at Date Recorded Male 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 To help relieve pain, antispasmodic [...] the option of having surgery with you. [facility] Help keep your colon healthy with a diet that includes plenty of high-fiber fruits, vegetables, and whole grains. Drink plenty of liquids like water and juice. Your doctor may also recommend avoiding seeds and nuts. ?? [phone] [facility], [address] [place] [address]. All rights reserved. This information is not [...] in old age ??? C.A.D. Maternal Uncle [place] ??? Colon [place] Maternal Uncle ??? Prostatic [...] encounter Results COLONOSCOPY (06/05/2013 9:28 AM CDT) [facility] Method Time Signature COLONOSCOPY [facility] RAD IOLOGY RESULTS Patient Name: Terry sher ?Procedure Date: 06/05/2013 9:28:52 AM ? Date of : 1945 ?Admit Type: Outpatient ? Age: 68 ? Gender: Male ? Attending MD: Matthew Quarles MD ? Procedure: ?Colonoscopy Indications: ?[place] colon cancer surveillance: Personal ?history of colonic po lyps Providers: ?Matthew Richardson MD Referring MD: ? Scottie Nicole MD Medicines: ?Midazolam 2 [...] ?oxygen saturations were monitored continuously. The ?[id number] was introduced through the anus ?and advanced [...] Intra-procedure documented in this encounter Care Teams Ross Lift Operator Relationship Specialty Start Date End Date Scottie Nicole MD PCP - General 02/18/99 10/06/13 [place] [id number] [place] [address] documented as of this encounter
--- OUTSIDE RECORDS SUMMARY | 2021-12-08 09:37 | XMS_ITS | Encounter Summary ---
:1945 Author Organization [place] Address [address] [facility] [place] [address] Care Team Providers Name Role Phone Raghavendra Deras MD Primary Care Provider Unavailable Reason for Visit Reason Comments Refill Request on BP medication, PT is not FASTING Encounter Details Date Type Department Care Team Description 10/07/2013 Office Visit [facility] Raghavendra Deras Hypertens ion goal BP (blood pressure) < 140/90 (Primary Dx); Clinic Candy Alan MD Hyperlipidemia LDL goal <130 ; [address] [facility] At risk for falling; [place], [place] Esophageal [place] [phone] Social History Tobacco Use Types Packs/Day Years Used Date Smoking Tobacco: Former Cigarettes Quit : 02/06/1984 Smokeless Tobacco: Never Alcohol Use Standard Drinks/Week Comments Yes 1.7 (1 standard drink = 0.6 oz pure alco hol) moderate Sex Assigned at Date Recorded Male 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 C.A.D. Maternal Uncle MD ??? Colon [place] Maternal Uncle ??? Prostatic [...] MG capsule Continue PPI. Raghavendra Deras MD [facility] documented in this encounter Nursing Notes Raudel Garcia, MEDICAL FEE CLERK - 10/07/2013 3:24 PM CDT Chief Complaint [...] reflux documented in this encounter Care Teams Supervisor Grower Relationship Specialty Start Date End Date Raghavendra Deras MD PCP - General Family Practice 10/07/13 documented as of this encounter
--- OUTSIDE RECORDS SUMMARY | 2021-12-08 09:37 | XMS_ITS | Encounter Summary ---
:1945 Author Organization [place] Address [address] [facility] [place] [address] Care Team Providers Name Role Phone Nasir Velazquez MD Primary Care Provider [phone] Reason for Visit Reason Comments Physical labs done last week. Encounter Details Date Type Department Care Team Description 08/07/2012 Office Visit [facility] Nasir Velazquez Hypert ension goal BP (blood pressure) < 140/90 (Primary Dx); Clinic Candy Chow MD Esophageal reflux; [address] [facility] HYPERTROPHY of PROSTATE ; [place], [place] CLINIC Routine general medical examination at a health care facility; [id number] [address] [facility] Anemia; [phone] Special screening for malignant neoplasm of prostate; [place], [place] Hyperlipid emia LDL goal <130; [address] Trochanteric bursitis Social History Tobacco Use Types Packs/Day Years Used Date Smoking Tobacco: Former Cigarettes Quit : 02/06/1984 Smokeless Tobacco: Never Alcohol Use Standard Drinks/Week Comments Yes 1.7 (1 standard drink = 0.6 oz pure alco hol) moderate Sex Assigned at Date Recorded Male 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 Please contact the clinic [...] Taking Niaspan/niacin? No ?? Other medications/supplements?: Fish oil/Winslow 3, dose 1000mg without side effects Hypertension [...] INTERCHANGEABLY. THIS ASSAY WAS PERFORMED USING THE [employer] CHEMILUMINESCENT METHOD. PSA Date Value Range Status 06/30/2010 0.59 0 - 4 ug/L Final Recent Labs Lab Test 08/02/12 1025 06/06/11 1115 CHOL 164 187 HDL 40 43 LDL 82 98 TRIG 209* 232* CHOLHDLRATIO 4.1 4.3 Reviewed orders with patient. Reviewed health maintenance and updated orders accordingly - Yes All Histories reviewed and updated in [facility]. ROS: C: NEGATIVE for fever, [...] in EPIC andupdated as appropriate. OBJECTIVE: BP 137/79 Pulse [...] carbs, increase fruits/vegetables and avoid sweets. 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 RBC Count 4.38 (L) 4.4 - 5.9 [place] 10e12/L [facility] Hemoglobin 13.1 (L) 13.3 - [place] 17.7 g/dL [facility] Comment: SLIDE REVIEW PERFORMED. RBC'S SHOWED SLI GHT ANISOCYTOSIS.PLATELETS ANF WBC'S LOOKED NORMAL. ??K.K. Hematocrit 37.4 (L) 40.0 - 53.0 % [facility] MCV 85 78 - 100 fl [facility] MCH 29.9 26.5 - 33.0 pg [facility] MCHC 35.0 31.5 - 36.5 g/dL [facility] RDW 13.1 10.0 - 15.0 % [facility] Platelet Count 156 150 - 450 10e9/L [facility] Diff Method Automated Method [facility] % Neutrophils 53.3 % [facility] % Lymphocytes 35.4 % [facility] % Monocytes 9.6 % [facility] % Eosinophils 1.3 % [facility] % Basophils 0.4 % [facility] Absolute Neutrophil 2.4 1.6 - 8.3 10e9/L [place] Absolute Lymphocytes 1.6 0.8 - 5.3 10e9/L [facility] Absolute Monocytes 0.4 0.0 - 1.3 10e9/L [facility] Absolute Eosinophils 0.1 0.0 - 0.7 10e9/L [facility] Absolute Basophils 0.0 0.0 - 0.2 10e9/L [facility] Specimen Anatomical Collection Method Collection Time Receive d Time (Source) Location / / Volume Laterality Blood specimen 08/07/2012 11:45 3 (specimen) AM CDT 12:21 PM CDT Nasir Velazquez MD LAB - BLOOD ORDERABLES Performing Organization Address City/[facility] Phon e Number [facility] [address] [place] [address] [facility] [address] [place], [place] [address] Prostate spec antigen screen (08/07/2012 11:45 AM CDT) athologist Signature PSA 0.52 0 - 4 ug/L [facility] Specimen Anatomical Collection Method Collection Time Receive d Time (Source) Location / / Volume Laterality Blood specimen 08/07/2012 11:45 3 (specimen) AM CDT 11:47 AM CDT Nasir Velazquez MD LAB - BLOOD ORDERABLES Performing Organization Address City/[facility] Phon e Number [facility] [address] [place] [address] [facility] [address] [place] [address] Iron and iron binding capacity (08/07/2012 11:45 AM CDT) P athologist Signature Iron 57 35 - 180 [place] ug/dL [facility] Iron Binding 301 240 - 430 [place] Cap ug/dL [facility] Iron Saturation 19 15 - 46 % [facility] Specimen Anatomical Collection Method Collection Time Receive d Time (Source) Location / / Volume Laterality Blood specimen 08/07/2012 11:45 3 (specimen) AM CDT 11:47 AM CDT Nasir Velazquez MD LAB - BLOOD ORDERABLES Performing Organization Address City/State/ZIP Code Phon e Number [facility] [place] [address] [address] [facility] [address] [place] [address] Ferritin (08/07/2012 11:45 AM CDT) athologist Signature Ferritin 116 20 - 300 [facility] ng/mL [facility] Specimen Anatomical Collection Method Collection Time Receive d Time (Source) Location / / Volume Laterality Blood specimen 08/07/2012 11:45 3 (specimen) AM CDT 11:47 AM CDT Nasir Velazquez MD LAB - BLOOD ORDERABLES Performing Organization Address City/State/ZIP Code Phon e Number [facility] [address] [address] [facility] [address] [address] Folate (08/07/2012 11:45 AM CDT) athologist Signature Folate >24.0 >3.3 ng/mL [facility] Interp: ??>5.4 ng/mL = Normal CAMP[facility] LABS Specimen Anatomical Collection Method Collection Time Receive d Time (Source) Location / / Volume Laterality Blood specimen 08/07/2012 11:45 3 (specimen) AM CDT 11:47 AM CDT Nasir Velazquez MD LAB - BLOOD ORDERABLES Performing Organization Address City/State/ZIP Code Phon e Number [facility] [address] [facility] [place] [address] [facility] Vitamin B12 (08/07/2012 11:45 AM CDT) athologist Signature Vitamin B12 647 >210 pg/mL [facility] Comment: Interp: [phone] = Normal Specimen Anatomical Collection Method Collection Time Receive d Time (Source) Location / / Volume Laterality Blood specimen 08/07/2012 11:45 3 (specimen) AM CDT 11:47 AM CDT Nasir Velazquez MD LAB - BLOOD ORDERABLES Performing Organization Address City/State/ZIP Code Phon e Number [facility] [address] [place] [address] [facility] RETICULOCYTE COUNT (08/07/2012 11:45 AM CDT) Patholo gist Method Time Signature % Retic 0.9 0.5 - 2.0 [place] % [facility] Absolute 39.6 25 - 95 [place] Retic 10e9/L [facility] Retic Method Automated [facility] Specimen Anatomical Collection Method Collection Time Receive d Time (Source) Location / / Volume Laterality Blood specimen 08/07/2012 11:45 3 (specimen) AM CDT 11:47 AM CDT Nasir Velazquez MD LAB - BLOOD ORDERABLES Performing Organization Address City/State/ZIP Code Phon e Number [place] [address] [place], [place] [address] [facility] documented in this encounter [...] region documented in this encounter Care Teams Cessation Systems Outreach Specialist Relationship Specialty Start Date End Date Nasir Velazquez MD PCP - General 02/18/99 10/06/13 [facility] [address] [place] [address] documented as of this encounter
--- OUTSIDE RECORDS SUMMARY | 2021-12-08 09:38 | XMS_ITS | Encounter Summary ---
:1945 Author Organization [place] Address [id number] [place] [address] Care Team Providers Name Role Phone Nasir Velazquez MD Primary Care Provider [phone] Reason for Visit Reason Onset Date Comments Refill Request 09/27/2011 Encounter Details Date Type Department Care Team Description 09/27/2011 MyC Refill [facility] Nasir Velaz[place] [address] [place] [address] [facility] [phone] [facility] [address] [address] (Wo rk) Social History Tobacco Use Types Packs/Day Years Used Date Smoking Tobacco: Former Cigarettes Quit : 02/06/1984 Smokeless Tobacco: Never Alcohol Use Standard Drinks/Week Comments Yes 1.7 (1 standard drink = 0.6 oz pure alco hol) moderate Sex Assigned at Date Recorded Male 01/15/2018 11:39 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 Last OV:06/06/2011 Martha Dias Laminator Hand Telephone Encounter - Martha Dias - 09/27/2011 2:20 PM CDT Message from [employer]: Original authorizing provider: MD Terry Grubbs Evan Winston would like a refill of the following medications: hydrochlorothiazide (HYDRODIURIL) 25 MG tablet [Nasir Velazquez MD] omeprazole (PRILOSEC) 40 MG capsule [Nasir Velazquez MD] doxazosin (CARDURA) 4 MG tablet [Nasir Velazquez MD] Preferred pharmacy: [facility] Comment: documented in this encounter Plan of Treatment Not on filedocumented as of this encounter Visit Diagnoses Diagnosis Hypertension goal BP (blood pressure) < 140/90 Unspecified essential hypertension Esophageal reflux HYPERTROPHY of PROSTATE Hypertrophy of prostate without urinary obstruction and other lower urinary tract symptoms (LUTS) documented in this encounter Care Teams Wood Heel Attacher Relationship Specialty Start Date End Date Nasir Velazquez MD PCP - General 02/18/99 10/06/13 [facility] [address] [place] [address] documented as of this encounter
--- OUTSIDE RECORDS SUMMARY | 2021-12-08 09:38 | XMS_ITS | Encounter Summary ---
:1945 Author Organization [place] Address [address] [facility] [place] [address] Care Team Providers Name Role Phone Nasir Velazquez MD Primary Care Provider [phone] Reason for Referral Referral not Required - Closed Specialty Diagnoses / Procedures Referred By Contact Refer red To Contact Diagnoses Hand pain Nasir Velazquez [facility] [address] [place] [address] [address] [facility] Phone: [phone] [place], [place] [address] Referral ID Status Reason Start Date Expiration Date Visits Requ ested Visits Authorized [id number] Closed 03/21/2012 09/17/2012 1 1 ING PIT OPERATOR Reason for Visit Reason Comments RECHECK right elbow. Encounter Details Date Type Department Care Team Description 03/21/2012 Office Visit [facility] Nasir Velazquez Olecra non bursitis (Primary Dx); Clinic Candy Chow MD Chronic rhinitis; [address] [facility] [place] Hand pain; [place], [place] CLINIC Screening for AAA (abdominal aortic aneu rysm) [id number] [address] [facility] [phone] [place] [address] (Wo rk) Social History Tobacco Use Types Packs/Day Years Used Date Smoking Tobacco: Former Cigarettes Quit : 02/06/1984 Smokeless Tobacco: Never Alcohol Use Standard Drinks/Week Comments Yes 1.7 (1 standard drink = 0.6 oz pure alco hol) moderate Sex Assigned at Date Recorded Male 01/15/2018 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 documented as of this encounter Last Filed Vital Signs Vital Sign Reading Time Taken Comments Blood Pressure 137/84 03/21/2012 11:04 AM SOAKING PIT OPERATOR Pulse 75 03/21/2012 11:04 AM SOAKING PIT OPERATOR Temperature 36.7 ??C (98 ??F) 03/21/2012 11:04 AM SOAKING PIT OPERATOR Respiratory Rate - - Oxygen Saturation 96% 03/21/2012 11:04 AM SOAKING PIT OPERATOR Inhaled Oxygen Concentration - - Weight 93.1 kg (205 lb 3 oz) 03/21/2012 11:04 AM SOAKING PIT OPERATOR Height 175.3 cm (5' 9) 03/21/2012 11:04 AM SOAKING PIT OPERATOR Body Mass Index 30.3 03/21/2012 11:04 AM SOAKING PIT OPERATOR documented in this encounter Patient Instructions Patient InstructionsNasir Velazquez MD - 03/21/2012 11:37 AM SOAKING PIT OPERATOR If the elbow is not improving over the next several weeks (or worsening), call for referral to Sports Medicine or Orthopedics for drainage of the olecranon bursitis. For exercises: Stretching - do stretching exercises every day. Hold stretches for 15 seconds, then repeat x 5. Strengthening - do strengthening exercises every other day. Do exercises until muscle fatigue/burn. ING PIT OPERATOR documented in this encounter Progress Notes Nasir [...] history, are all reviewed and updated in [facility]. Current Outpatient Prescriptions Medication Sig ??? fluticasone (FLONASE) 50 MCG/ACT nasal spray [place] 1-2 sprays into both nostrils daily as [...] current regimen. 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 patient [...] other day. Do exercises until muscle fatigue/burn. ING PIT OPERATOR documented in this encounter Nursing Notes 03/21/2012 11:00 AM CST >> [facility] Mar 21, 2012 11:08 AM Patient [...] Health maintenance- up to date Phoenix Dubois DISPATCHER AUTOMOBILE RENTAL documented in this encounter Plan of Treatment Pending Results Name Type Priority Associated Diagnoses Date/Ti fl ORTHO TRACK LABORER REFERRAL Referral Routine Hand pain 08/2012 documented as of this encounter Visit Diagnoses Diagnosis Olecranon bursitis - Primary Chronic rhinitis Hand pain Pain in limb Screening for AAA (abdominal aortic aneu rysm) Screening for other and unspecified card iovascular conditions documented in this encounter Care Teams Manufacturing Quality Inspector Relationship Specialty Start Date End Date Nasir Velazquez MD PCP - General 02/18/99 10/06/13 [facility] [address] [place] [address] documented as of this encounter
--- OUTSIDE RECORDS SUMMARY | 2021-12-08 09:38 | XMS_ITS | Encounter Summary ---
:1945 Author Organization [place] Address [address] [place] [address] Care Team Providers Name Role Phone Nasir Velazquez MD Primary Care Provider [phone] Encounter Details Date Type Department Care Team Description 03/14/2012 [facility] Tony Brizuela Home Medical Correspondence And Orthopedic MD Geoff Equipment Order Care [facility] [id number] 5 [facility] [address] [place] [address] [address] [place] [phone] Social History Tobacco Use Types Packs/Day Years Used Date Smoking Tobacco: Former Cigarettes Quit : 02/06/1984 Smokeless Tobacco: Never Alcohol Use Standard Drinks/Week Comments Yes 1.7 (1 standard drink = 0.6 oz pure alco hol) moderate Sex Assigned at Date Recorded Male 01/15/2018 11:39 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
--- OUTSIDE RECORDS SUMMARY | 2021-12-08 09:38 | XMS_ITS | Encounter Summary ---
:1945 Author Organization [place] Address [address] [facility] [place] [address] Care Team Providers Name Role Phone Nasir Velazquez MD Primary Care Provider [phone] Reason for Visit Reason Comments Elbow Pain right elbow pain, appears robles s fluid Encounter Details Date Type Department Care Team Description [facility]/05[facility]2012 [facility] Candy Alan MD (Primary Dx) [address] [place] [address] Social History Tobacco Use Types Packs/Day Years Used Date Smoking Tobacco: Former Cigarettes Quit : 02/06/1984 Smokeless Tobacco: Never Alcohol Use Standard Drinks/Week Comments Yes 1.7 (1 standard drink = 0.6 oz pure alco hol) moderate Sex Assigned at Date Recorded Male 01/15/2018 11:39 PM 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 documented as of this encounter Last Filed Vital Signs Vital Sign Reading Time Taken Comments Blood Pressure 130/86 03/05/2012 3:52 PM 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 Pulse 75 03/05/2012 3:52 PM 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 Temperature 37.2 ??C (98.9 ??F) 03/05/2012 3:52 PM 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 Respiratory Rate - - Oxygen Saturation 96% 03/05/2012 3:52 PM 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 Inhaled Oxygen Concentration - - Weight 92.1 kg (203 lb) 03/05/2012 3:52 PM 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 Height 175.3 cm (5' 9) 03/05/2012 3:52 PM 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 Body Mass Index 29.98 03/05/2012 3:52 PM 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 documented in this encounter Progress Notes Raghavendra [...] Consider testing for gout if not improving. NAUTICAL PRODUCTS SALES ENGINEER documented in this encounter Nursing Notes 03/05/2012 4:30 PM CST >> ALEXANDRIA GARCIA Lenrickey Mar 05, 2012 3:55 PM Patient presents [...] completed using cuff size: large Alexandria Garcia SALES ACCOUNT COORDINATOR documented in this encounter Plan of Treatment Not on filedocumented as of this encounter Visit Diagnoses Diagnosis Olecranon bursitis - Primary documented in this encounter Care Teams Solid Surface Fabricator Relationship Specialty Start Date End Date Nasir Velazquez MD PCP - General 02/18/99 10/06/13 [place] [address] [place] [address] documented as of this encounter
--- OUTSIDE RECORDS SUMMARY | 2021-12-08 09:38 | XMS_ITS | Encounter Summary ---
:1945 Author Organization [place] Address [address] [place] [address] Care Team Providers Name Role Phone Nasir Velazquez MD Primary Care Provider [phone] Reason for Visit Reason Onset Date Comments Elbow right 03/05/2012 fluid sac on elbow Encounter Details Date Type Department Care Team Description 03/05/[address] 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 Deras. Poly Ibrahim, RN. AGE AGENT SUPERVISOR documented in this encounter Plan of Treatment Not on filedocumented as of this encounter Visit Diagnoses Not on filedocumented in this encounter Care Teams Cut Order Hand Relationship Specialty Start Date End Date Nasir Velazquez MD PCP - General 02/18/99 10/06/[address] [address] documented as of this encounter
--- OUTSIDE RECORDS SUMMARY | 2021-12-08 09:38 | XMS_ITS | Encounter Summary ---
:1945 Author Organization [place] Address [address] [facility] [place] [address] Care Team Providers Name Role Phone Nasir Velazquez MD Primary Care Provider [phone] Reason for Visit [facility] Physical Therapy (Routine) - Closed Specialty Diagnoses / Procedures Referred By Contact Refer red To Contact Tony Brizuela MD [facility] [address] [facility] [address] [place], [place] [phone] [place] [address] Phone: Fax: Referral ID Status Reason Start Date Expiration Date Visits V isits Requested Authorized SOTO/HP/SPINE Closed 02/12/2012 02/04/2013 20 18 Encounter Details Date Type Department Care Team Description 02/14/2012 Therapy Visit [place] for Enrique Blum PT Neck pain (Primary Athletic Medicine - SOTO SHANEL LAUGHLIN Dx) [facility] [address] [facility] [address] 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 EAR POWERPLANT MECHANIC documented in this encounter Plan of Treatment Not on filedocumented as of this encounter Procedures Procedure Name Priority Date/Time Associated Diagnosis Comme nts ZZC THERAPEUTIC Routine 02/14/2012 2:12 PM NUCLEAR POWERPLANT MECHANIC Neck pain ACTIVITIES documented in this encounter Visit Diagnoses Diagnosis Neck pain - Primary Cervicalgia documented in this encounter Care Teams Construction Rigger Relationship Specialty Start Date End Date Nasir Velazquez MD PCP - General 02/18/99 10/06/13 [facility] [address] [place] [address] documented as of this encounter
--- OUTSIDE RECORDS SUMMARY | 2021-12-08 09:38 | XMS_ITS | Encounter Summary ---
:1945 Author Organization [place] Address [address] [place] [address] Care Team Providers Name Role Phone Nasir Velazquez MD Primary Care Provider [phone] Reason for Visit Referral not Required - Closed Specialty Diagnoses / Procedures Referred By Contact Refer red To Contact Diagnoses Back injury Nasir Velazquez, [facility] [address] [facility] ADMIN OFFICE [address] [place] [address] [place], [place] [address] Phone: [phone] Referral ID Status Reason Start Date Expiration Date Visits Requ ested Visits Authorized [id number] Closed 04/02/2012 09/29/2012 1 1 Encounter Details Date Type Department Care Team Description 04/03/2012 Therapy Visit [facility] Vernon Steel, LBP ( low back pain) Rehabilitation Services PT (Primary Dx) [address] ATHLETIC MEDICINE [place], [place] [id number] [place] [address] [place], [place] [phone] [address] Social History Tobacco Use Types Packs/Day Years Used Date Smoking Tobacco: Former Cigarettes Quit : 02/06/1984 Smokeless Tobacco: Never Alcohol Use Standard Drinks/Week Comments Yes 1.7 (1 standard drink = 0.6 oz pure alco hol) moderate Sex Assigned at Date Recorded Male 01/15/2018 11:39 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 RICT SUPERVISOR Vernon Steel, PT - 04/03/2012 3:42 PM CST Subjective: [...] with no effect Rotation: Left: Right: Side Ward: Left: Right: Lumbar Myotomes: not assessed Lumbar [...] Sheet for this information) Short term and assisted goals: (See Goal Flow Sheet for this [...] and time spent performing 1:1 timed codes. RICT SUPERVISOR documented in this encounter Plan of Treatment Not on filedocumented as of this encounter Procedures Procedure Name Priority Date/Time Associated Diagnosis Comme [facility] THERAPEUTIC Routine 04/03/2012 3:52 PM DISTRICT SUPERVISOR LBP (low back p ain) EXERCISES documented in this encounter Visit Diagnoses Diagnosis LBP (low back pain) - Primary Lumbago documented in this encounter Care Teams Geodetic Survey Director Relationship Specialty Start Date End Date Nasir Velazquez MD PCP - General 02/18/99 10/06/13 [id number] [place] [address] documented as of this encounter
--- OUTSIDE RECORDS SUMMARY | 2021-12-08 09:38 | XMS_ITS | Encounter Summary ---
:1945 Author Organization [place] Address [address] [facility] [place] [address] Care Team Providers Name Role Phone Nasir Velazquez MD Primary Care Provider [phone] Encounter Details Date Type Department Care Team Description 08/02/2012 Orders Only [facility] Hyp ertension goal BP (blood pressure) < 140/90; [facility] Hyperlipidemia LDL goal <130 [address] [place] [address] Social History Tobacco Use Types Packs/Day Years Used Date Smoking Tobacco: Former Cigarettes Quit : 02/06/1984 Smokeless Tobacco: Never Alcohol Use Standard Drinks/Week Comments Yes 1.7 (1 standard drink = 0.6 oz pure alco hol) moderate Sex Assigned at Date Recorded Male 01/15/2018 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 [facility] Albumin Urine Unable to 0 - 17 [facility] mg/g Cr calculate mg/g Cr [facility] Specimen Anatomical Collection Method Collection Time Receive d Time (Source) Location / / Volume Laterality Urine specimen 08/02/2012 10:31 3 (specimen) AM CDT 10:32 AM CDT Nasir Velazquez MD LAB - URINE ORDERABLES Performing Organization Address City/State/ZIP Code Phon e Number [facility] [address] [place], [place] [phone] [place] [address] LABS (ABNORMAL) Lipid panel reflex to direct LDL (08/02/2012 10:25 AM CDT) P athologist Signature Cholesterol 164 0 - 200 [facility] Comment: LDL Cholesterol is the primary guide to therapy. The NCEP recommends further evaluation of: patients with cholesterol greater than 200 mg/dL if additional risk facto rs are present, cholesterol greater than 240 mg/dL, triglycerides greater than 1 50 mg/dL, or HDL less than 40 mg/dL. Triglycerides 209 (H) 0 - 150 mg/dL [place] [facility] HDL Cholesterol 40 40 - 110 mg/dL [facility] LDL Cholesterol Calculated 82 0 - 129 mg/dL [facility] Comment: LDL Cholesterol is the primary guide to therapy: LDL-cholesterol goal in high risk patients is <100 mg/dL and in very high risk patients is <70 mg/dL. VLDL-Cholesterol 42 (H) 0 - 30 mg/dL [place] [facility] Cholesterol/HDL Ratio 4.1 0.0 - 5.0 [facility] Specimen Anatomical Collection Method Collection Time Receive d Time (Source) Location / / Volume Laterality Blood specimen 08/02/2012 10:25 3 (specimen) AM CDT 10:26 AM CDT Nasir Velazquez MD LAB - BLOOD ORDERABLES Performing Organization Address City/[facility]/ZIP Code Phon e Number [facility] [place] [address] [phone] [facility] [address] [facility] [address] [place] [address] Basic metabolic panel (08/02/2012 10:25 AM CDT) P athologist Signature Sodium 142 133 - 144 [place] mmol/L CLINIC LAB Potassium 3.7 3.4 - 5.3 [place] mmol/L [facility]IC LAB Chloride 103 94 - 109 [place] mmol/L [facility]INIC LAB Carbon Dioxide 26 20 - 32 [place] mmol/L [facility]IC LAB Anion Gap 13 6 - 17 [place] mmol/L [facility]IC LAB Glucose 94 60 - 99 [place] mg/dL CLINIC LAB Urea Nitrogen 19 7 - 30 [place] mg/dL CLINIC LAB Creatinine 1.02 0.66 - [place] 1.25 mg/dL CLINIC LAB GFR Estimate 73 >60 [place] mL/min/1.7 CLINIC LAB m2 GFR Estimate If 88 >60 [place] Black mL/min/1.7 CLINIC LAB m2 Calcium 9.2 8.5 - 10.4 [place] mg/dL CLINIC LAB Specimen Anatomical Collection Method Collection Time Receive d Time (Source) Location / / Volume Laterality Blood specimen 08/02/2012 10:25 3 (specimen) AM CDT 10:26 AM CDT Nasir Velazquez MD LAB - BLOOD ORDERABLES Performing Organization Address City/State/ZIP Code Phon e Number [facility] [address] [phone] [facility] [address] [place] [address] [phone] (ABNORMAL) CBC with platelets (08/02/2012 10:25 AM CDT) Analysis Performed At Patho logist Time Signature WBC 5.2 4.0 - 11.0 [place] 10e9/L [facility] RBC Count 4.45 4.4 - 5.9 [place] 10e12/L [facility] Hemoglobin 13.2 (L) 13.3 - [place] 17.7 g/dL [facility] Hematocrit 38.1 (L) 40.0 - [place] 53.0 % [facility] MCV 86 78 - 100 [facility] LAB MCH 29.7 26.5 - [place] 33.0 pg [facility] MCHC 34.6 31.5 - [place] 36.5 g/dL [facility] RDW 13.2 10.0 - [place] 15.0 % [facility] Platelet Count 159 150 - 450 [place] 10e9/L [facility] Specimen Anatomical Collection Method Collection Time Receive d Time (Source) Location / / Volume Laterality Blood specimen 08/02/2012 10:25 3 (specimen) AM CDT 10:26 AM CDT Nasir Velazquez MD LAB - BLOOD ORDERABLES Performing Organization Address City/State/[facility] Code Phon e Number [facility] [phone] [facility] [place] [address] [facility] [address] [facility]. [place], [place] [address] documented in this encounter Visit Diagnoses Diagnosis Hypertension goal BP (blood pressure) < 140/90 Unspecified essential hypertension Hyperlipidemia LDL goal <130 Other and unspecified hyperlipidemia documented in this encounter Care Teams Oxide Furnace Tender Relationship Specialty Start Date End Date Nasir Velazquez MD PCP - General 02/18/99 10/06/13 [facility] [address] [place] [address] documented as of this encounter
--- OUTSIDE RECORDS SUMMARY | 2021-12-08 09:38 | XMS_ITS | Encounter Summary ---
:1945 Author Organization [place] Address [address] [facility] [place] [address] Care Team Providers Name Role Phone Nasir Velazquez MD Primary Care Provider [phone] Reason for Referral - Closed Specialty Diagnoses / Procedures Referred By Contact Refer red To Contact Diagnoses Pain of left thumb Tony Brizuela MD [facility] [address] [facility] [address] [place], [place] [phone] Referral ID Status Reason Start Date Expiration Date Visits Requ ested Visits Authorized [id number] Closed 01/12/2012 07/10/2012 1 1 APPLIANCES MECHANIC - Closed Specialty Diagnoses / Procedures Referred By Contact Refer red To Contact Diagnoses Neck pain Tony Brizuela MD [facility] [address] [facility] [address] [place], [place] [phone] Referral ID Status Reason Start Date Expiration Date Visits Requ ested Visits Authorized [id number] Closed 01/12/2012 07/10/2012 1 1 APPLIANCES MECHANIC Reason for Visit Reason Comments Musculoskeletal Problem left hand pain Encounter Details Date Type Department Care Team Description 01/12/2012 Office Visit [facility] And Tony Brizuela Neck pain (Primary Dx); [facility] Stew Tellez MD Pain of left thumb [facility] [address] [facility] [address] [place] [phone] [place] [phone] (Wo rk) Social History Tobacco Use Types Packs/Day Years Used Date Smoking Tobacco: Former Cigarettes Quit : 02/06/1984 Smokeless Tobacco: Never Alcohol Use Standard Drinks/Week Comments Yes 1.7 (1 standard drink = 0.6 oz pure alco hol) moderate Sex Assigned at Date Recorded Male 01/15/2018 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 documented as of this encounter Last Filed Vital Signs Vital Sign Reading Time Taken Comments Blood Pressure 132/82 01/12/2012 12:55 PM HOME APPLIANCES MECHANIC Pulse - - Temperature - - Respiratory Rate - - Oxygen Saturation - - Inhaled Oxygen Concentration - - Weight 88.9 kg (196 lb) 01/12/2012 12:55 PM HOME APPLIANCES MECHANIC Height 176.5 cm (5' 9.5) 01/12/2012 12:55 PM HOME APPLIANCES MECHANIC Body Mass Index 28.53 01/12/2012 12:55 PM HOME APPLIANCES MECHANIC documented in this encounter Patient Instructions Patient InstructionsClem Fan - 01/12/2012 1:15 PM CST Please call [place] [facility], to schedule your appointment if you have not heard from them in two business days Arrive 15 minutes early. If you need to cancel or change the appointment please call [place] [facility], Please follow up in clinic as needed *Follow up as needed or as discussed with your care provider *See Chart Note for specific details APPLIANCES MECHANIC documented in this encounter Progress Notes Tony [...] for left trigger thumb [address] Osiel ESQUIVEL He has a long history of degenerative [...] in old age ??? C.A.D. Maternal Uncle ID ??? Colon CA Maternal Uncle ??? Prostatic CA Paternal Grandfather 84 ??? Prostatic CA Other Cousin ??? Heart Brother stent - 66 ??? Prostatic CA Brother no cancer, but a produre due reduce the prostate History Social History ??? Marital Status: Spouse Name: Karen Number of Children: 1 ??? Years of Education: 15 Occupational History ??? [employer] [place] [employer],[address] [place] [address] Social History Main Topics ??? Smoking status: [...] James Brizuela MD Department of Orthopedic Surgery APPLIANCES MECHANIC documented in this encounter Nursing Notes 01/12/2012 1:00 PM CST >> CLEM FAN Fri Jan 12, 2012 12:59 PM Patient presents with: [...] Neck pain Ordered: 1 03/14/2011 [facility]IROP[facility]CTIC REFERRAL [facility] PT, HAND, AND Referral Routine Pain of left thumb Orde red: 01/12/2012 CHIROPRACTIC REFERRAL documented as of this encounter Visit Diagnoses Diagnosis Neck pain - Primary Cervicalgia Pain of left thumb Pain in limb documented in this encounter Care Teams Special Effects Technician Relationship Specialty Start Date End Date Nasir Velazquez MD PCP - General 02/18/99 10/06/13 [facility] [address] [place] [address] documented as of this encounter
--- OUTSIDE RECORDS SUMMARY | 2021-12-08 09:38 | XMS_ITS | Encounter Summary ---
:1945 Author Organization [place] Address [address] [facility] [place] [address] Care Team Providers Name Role Phone Nasir Velazquez MD Primary Care Provider [phone] Encounter Details Date Type Department Care Team Description 03/26/[address] 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 documented in this encounter Results US abdominal aorta limited (03/26/2012 9:53 AM BUSINESS MGR) Anatomical Region Laterality Modality Abdomen/Pelvis Other Specimen (Source) Anatomical Collection Method Collection Time Re ceived Time Location / / Volume Laterality 03/26/2012 9:53 AM BUSINESS MGR Impressions 03/26/2012 11:34 AM BUSINESS MGR IMPRESSION: Normal caliber abdominal aorta and common iliac arteries. No evidence of aneurysm. KEITH BOWERS MD Narrative 03/26/2012 11:34 AM BUSINESS MGR ULTRASOUND AORTIC IMAGING ??03/26/2012 9: 53 AM [...] on filedocumented in this encounter Care Teams Toll Testboard Worker Relationship Specialty Start Date End Date Nasir Velazquez MD PCP - General 02/18/99 10/06/13 [facility] [address] [place] [address] documented as of this encounter
--- OUTSIDE RECORDS SUMMARY | 2021-12-08 09:38 | XMS_ITS | Encounter Summary ---
:1945 Author Organization [place] Address [address] [facility] [place] [address] Care Team Providers Name Role Phone Nasir Velazquez MD Primary Care Provider Reason for Visit SOTO Physical Therapy (Routine) - Closed Specialty Diagnoses / Procedures Referred By Contact Refer red To Contact Tony Brizuela MD ZZ SOTO [facility] [place] [address] [facility] [address] [facility] [address] [place], [place] [phone] [place] [address] Phone: Fax: Referral ID Status Reason Start Date Expiration Date Visits V isits Requested Authorized SOTO/HP/SPINE Closed 02/12/2012 02/04/2013 20 18 Encounter Details Date Type Department Care Team Description 04/17/2012 Therapy Visit [facility] Vernon Steel, LBP ( low back pain) Rehabilitation Services PT (Primary Dx) [address] ATHLETIC MEDICINE [place], [place] [phone] [place] [address] [place], [place] [phone] [address] Social History Tobacco Use Types Packs/Day Years Used Date Smoking Tobacco: Former Cigarettes Quit : 02/06/1984 Smokeless Tobacco: Never Alcohol Use Standard Drinks/Week Comments Yes 1.7 (1 standard drink = 0.6 oz pure alco hol) moderate Sex Assigned at Date Recorded Male 01/15/2018 11:39 PM LEADITE MAN documented as of this encounter Progress [...] Procedure Name Priority Date/Time Associated Diagnosis Comme [facility] ZZ THERAPEUTIC Routine 04/17/2012 2:44 PM CDT LBP (low back p ain) EXERCISES documented in this encounter Visit Diagnoses Diagnosis LBP (low back pain) - Primary Lumbago documented in this encounter Care Teams Tavern Car Attendant Relationship Specialty Start Date End Date Nasir Velazquez MD PCP - General 02/18/99 10/06/13 [facility] [address] [facility] [place] [address] documented as of this encounter
--- OUTSIDE RECORDS SUMMARY | 2021-12-08 09:38 | XMS_ITS | Encounter Summary ---
:1945 Author Organization [place] Address [address] [facility] [place] [address] Care Team Providers Name Role Phone Nasir Velazquez MD Primary Care Provider [phone] Reason for Visit SOTO Occupational Therapy (Routine) - Closed Specialty Diagnoses / Procedures Referred By Contact Refer red To Contact Tony Brizuela MD [facility] [address] [place] [address] [address] [place], [place] [phone] [address] [place] [address] Phone: Referral ID Status Reason Start Date Expiration Date Visits Requ ested Visits Authorized SOTO/HP/HAND Closed 01/15/2012 02/05/2012 10 8 Encounter Details Date Type Department Care Team Description 01/22/2012 Therapy Visit [facility] Emperatriz Thumb pain (Primary Center [facility] HAND Dx) [address] 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 None Prior functional level:?? None? [...] patient's ability to perform Recreational Activities and Counseling Program Leader as compared to previous level of function. [...] and time spent performing 1:1 timed codes. TRUCK WASHER documented in this encounter Plan of Treatment Not on filedocumented as of this encounter Procedures Procedure Name Priority Date/Time Associated Diagnosis Comme nts HC APPLY FINGER SPLINT Routine 01/22/2012 11:13 AM BOX TRUCK WASHER Thumb p ain STATIC documented in this encounter Visit Diagnoses Diagnosis Thumb pain - Primary Pain in limb documented in this encounter Care Teams Destination Sign Repairer Relationship Specialty Start Date End Date Nasir Velazquez MD PCP - General 02/18/99 10/06/13 [place] [address] [place] [address] documented as of this encounter
--- OUTSIDE RECORDS SUMMARY | 2021-12-08 09:38 | XMS_ITS | Encounter Summary ---
:1945 Author Organization [place] Address [address] [facility] [place] [address] Care Team Providers Name Role Phone Nasir Velazquez MD Primary Care Provider [phone] Reason for Visit Reason Onset Date Comments Refill Request 09/27/2011 Encounter Details Date Type Department Care Team Description 09/27/2011 Refill [facility] Nasir Velazquez, Refill Request [address] [place] [address] [place] [address] [facility] [phone] [facility] [address] [address] (Wo rk) Social History Tobacco Use Types Packs/Day Years Used Date Smoking Tobacco: Former Cigarettes Quit : 02/06/1984 Smokeless Tobacco: Never Alcohol Use Standard Drinks/Week Comments Yes 1.7 (1 standard drink = 0.6 oz pure alco hol) moderate Sex Assigned at Date Recorded Male 01/15/2018 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
--- OUTSIDE RECORDS SUMMARY | 2021-12-08 09:38 | XMS_ITS | Encounter Summary ---
:1945 Author Organization [place] Address [address] [facility] [place] [address] Care Team Providers Name Role Phone Nasir Velazquez MD Primary Care Provider [phone] Reason for Visit SOTO Physical Therapy (Routine) - Closed Specialty Diagnoses / Procedures Referred By Contact Refer red To Contact Tony Brizuela MD ZZ SOTO [facility] [address] [facility] [address] [place], [place] [phone] [place] [address] Phone: Fax: Referral ID Status Reason Start Date Expiration Date Visits V isits Requested Authorized SOTO/HP/SPINE Closed 01/15/2012 02/05/2012 10 8 Encounter Details Date Type Department Care Team Description 01/15/2012 Therapy Visit [facility] PT Neck pain (Primary Athletic Medicine - SOTO SHANEL LAUGHLIN Dx) [facility] [phone] [place] [facility] [address] 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 Medical allergies: yes (nasal spray - Flonase). Other surgeries include: None reported. Current medications: High blood pressure medication. Current occupation is Retired . Barriers include: None as reported by patient. Objective: System Physical Exam General ROS Assessment/Plan: ER LINER Enrique Blum, PT - 01/15/2012 9:59 AM [...] and time spent performing 1:1 timed codes. ER LINER documented in this encounter Plan of Treatment Not on filedocumented as of this encounter Procedures Procedure Name Priority Date/Time Associated Diagnosis Comme nts ZZC MECHANICAL TRACTION Routine 01/15/2012 8:21 PM RUBBER LINER Neck pa in THERAPY documented in this encounter Visit Diagnoses Diagnosis Neck pain - Primary Cervicalgia documented in this encounter Care Teams Sole Stapler Welt Relationship Specialty Start Date End Date Nasir Velazquez MD PCP - General 02/18/99 10/06/[address] [address] documented as of this encounter
--- OUTSIDE RECORDS SUMMARY | 2021-12-08 09:38 | XMS_ITS | Encounter Summary ---
:1945 Author Organization [place] Address [address] [facility] [place] [address] Care Team Providers Name Role Phone Nasir Velazquez MD Primary Care Provider [phone] Reason for Visit Reason Onset Date Comments Orders 07/30/2012 labs Encounter Details Date Type Department Care Team Description 07/30/2012 Telephone [facility] Nasir Velazquez, Orders (labs) Candy [place] [address] [place] [address] [address] 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 Thanks! Martha Dias Glass Cleaner documented in this encounter Plan of Treatment Not on filedocumented as of this encounter Visit Diagnoses Diagnosis Hyperlipidemia LDL goal <130 - Primary Other and unspecified hyperlipidemia Hypertension goal BP (blood pressure) < 140/90 Unspecified essential hypertension documented in this encounter Care Teams Jacquard Loom Fixer Relationship Specialty Start Date End Date Nasir Velazquez MD PCP - General 02/18/99 10/06/13 [address] [id number] [place] [address] documented as of this encounter
--- OUTSIDE RECORDS SUMMARY | 2021-12-08 09:38 | XMS_ITS | Encounter Summary ---
:1945 Author Organization [place] Address [address] [facility] [place] [address] Care Team Providers Name Role Phone Nasir Velazquez MD Primary Care Provider [phone] Reason for Referral Referral not Required - Closed Specialty Diagnoses / Procedures Referred By Contact Refer red To Contact Diagnoses Back injury Nasir Velazquez, [facility] [address] [facility] ADMIN OFFICE [address] [place] [address] [place], [place] [address] Phone: [phone] Referral ID Status Reason Start Date Expiration Date Visits Requ ested Visits Authorized [id number] Closed 04/02/2012 09/29/2012 1 1 ING 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 Reason for Visit Reason Comments Back Pain Encounter Details Date Type Department Care Team Description 04/02/2012 Office Visit [facility] Nasir Velazquez Back i carlos (Primary Clinic Candy Chow MD Dx) [address] [place], [place] CLINIC [address] [address] [facility] [phone] [place] [address] (Wo rk) Social History Tobacco Use Types Packs/Day Years Used Date Smoking Tobacco: Former Cigarettes Quit : 02/06/1984 Smokeless Tobacco: Never Alcohol Use Standard Drinks/Week Comments Yes 1.7 (1 standard drink = 0.6 oz pure alco hol) moderate Sex Assigned at Date Recorded Male 01/15/2018 11:39 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 documented as of this encounter Last Filed Vital Signs Vital Sign Reading Time Taken Comments Blood Pressure 115/70 04/02/2012 10:54 AM NURSING 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 Pulse 68 04/02/2012 10:54 AM NURSING 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 Temperature 36.7 ??C (98.1 ??F) 04/02/2012 10:54 AM NURSING 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 Respiratory Rate - - Oxygen Saturation 95% 04/02/2012 10:54 AM NURSING 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 Inhaled Oxygen Concentration - - Weight 93.2 kg (205 lb 6.4 oz) 04/02/2012 10:54 AM NURSING 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 Height 175.3 cm (5' 9) 04/02/2012 10:54 AM NURSING 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 Body Mass Index 30.33 04/02/2012 10:54 AM NURSING 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 documented in this encounter Progress Notes [...] list, Allergies, and Medical/Social/Surgical histories reviewed in [facility] andupdated as appropriate. OBJECTIVE: BP 115/70 Pulse [...] 205 lb 6.4 oz(93.169 kg). Nasir Velazquez [facility] ING 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 documented in this encounter Nursing Notes 04/02/2012 [...] maggie SOTO PT, HAND, AND Referral Routine Back injury Ordered: 0 04/02/2012 CHIROPRACTIC REFERRAL documented as of this encounter Visit Diagnoses Diagnosis Back injury - Primary Other injury of other sites of trunk documented in this encounter Care Teams Resident Care Associate Relationship Specialty Start Date End Date Nasir Velazquez MD PCP - General 02/18/99 10/06/[address] [address] documented as of this encounter
--- OUTSIDE RECORDS SUMMARY | 2021-12-08 09:38 | XMS_ITS | Encounter Summary ---
:1945 Author Organization [place] Address [address] [place] [address] Care Team Providers Name Role Phone Nasir Velazquez MD Primary Care Provider [phone] Reason for Visit Reason Onset Date Comments Refill Request 05/28/2012 Zocor Encounter Details Date Type Department Care Team Description 05/28/2012 MyC Refill [facility] Nasir Velazquez Refill Request (Zocor) Clinic [place] MD Geraldo [address] [place], [place] CLINIC [address] [address] [facility] [phone] [place] [address] (Wo rk) Social History Tobacco Use Types Packs/Day Years Used Date Smoking Tobacco: Former Cigarettes Quit : 02/06/1984 Smokeless Tobacco: Never Alcohol Use Standard Drinks/Week Comments Yes 1.7 (1 standard drink = 0.6 oz pure alco hol) moderate Sex Assigned at Date Recorded 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 Last OV:06/06/2011 Last Refill:08/18/2011 Martha Dias Rug Measurer Telephone Encounter - Martha Dias - 05/28/2012 8:45 AM CDT Message from [facility]: Original authorizing provider: Nasir Velazquez MD, MD Terry Montero would like a refill of the following medications: simvastatin (ZOCOR) 40 MG tablet [Nasir Velazquez MD, MD] [facility] [address] [place], [place] Comment: documented in this encounter Plan of Treatment Not on filedocumented as of this encounter Visit Diagnoses Diagnosis Hyperlipidemia LDL goal <130 - Primary Other and unspecified hyperlipidemia documented in this encounter Care Teams Patch Sander Relationship Specialty Start Date End Date Nasir Velazquez MD PCP - General 02/18/99 10/06/13 [address] [address] [place] [address] documented as of this encounter
--- OUTSIDE RECORDS SUMMARY | 2021-12-08 09:38 | XMS_ITS | Encounter Summary ---
:1945 Author Organization [place] Address [address] [facility] [place] [address] Care Team Providers Name Role Phone Nasir Velazquez MD Primary Care Provider [phone] Reason for Visit (Routine) - Closed Specialty Diagnoses / Procedures Referred By Contact Refer red To Contact Radiology Diagnoses [facility] Procedure Notes: Screening for abdominal aortic aneurysm. Rh Ultrasound Procedures RADIOLOGY [address] [place], [place] [address] Phone: Fax: Referral ID Status Reason Start Date Expiration Date Visits Requ ested Visits Authorized [id number] Closed 03/21/2012 03/21/2013 1 1 Encounter Details Date Type Department Care Team Description 03/26/2012 Hospital Encounter [facility] Nasir Velazquez [facility] MD Geraldo [address] [place], [place] [address] [facility] [address] [facility] [phone] [place] [address] (Wo rk) Social History Tobacco Use Types Packs/Day Years Used Date Smoking Tobacco: Former Cigarettes Quit : 02/06/1984 Smokeless Tobacco: Never Alcohol Use Standard Drinks/Week Comments Yes 1.7 (1 standard drink = 0.6 oz pure alco hol) moderate Sex Assigned at Date Recorded 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
--- OUTSIDE RECORDS SUMMARY | 2021-12-08 09:39 | XMS_ITS | Encounter Summary ---
:1945 Author Organization [place] Address [address] [place] [address] Care Team Providers Name Role Phone Nasir Velazquez MD Primary Care Provider [phone] Reason for Visit Reason Comments Musculoskeletal Problem bilateral foot pain. pt had injections at [facility] November of 2008. Encounter Details Date Type Department Care Team Description 07/01/[address] 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 Pt is requesting a re-peat of injections. [...] Schedule fluro guided injection 2nd/3rd TMTjoint w/ [facility]. Also discussed if injection fail to improve symptoms, pt may require surgical arthrodesis. documented in this encounter Nursing Notes 07/01/2010 11:15 AM CDT >> ANGELIA GRAFF Fri July 01, 2010 11:35 AM Patient presents with: Musculoskeletal Problem - bilateral foot pain. pt had injections at [facility]. November of 2008. Initial BP 142/90 Estimated Body mass index is 28.81 kg/(m^2) as calculated from the following: Height as of 04/30/10: 5' 8.5(1.74 m). Weight as of 04/30/09: 192 lb 4 oz(87.204 kg). bp completed using cuff size: large right Angelia Graff CMA documented in this encounter Plan of Treatment Not on filedocumented as of this encounter Visit Diagnoses Diagnosis Arthralgia - Primary Pain in joint, site unspecified Pain in limb documented in this encounter Care Teams Light Truck Driver Relationship Specialty Start Date End Date Nasir Velazquez MD PCP - General 02/18/99 10/06/13 [address] [address] [place] [address] documented as of this encounter
--- OUTSIDE RECORDS SUMMARY | 2021-12-08 09:39 | XMS_ITS | Encounter Summary ---
:1945 Author Organization [place] Address [address] [facility] 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 [address] [place] [address] documented as of this encounter
--- OUTSIDE RECORDS SUMMARY | 2021-12-08 09:39 | XMS_ITS | Encounter Summary ---
:1945 Author Organization [place] Address [address] [facility] [place] [address] Care Team Providers Name Role Phone Nasir Velazquez MD Primary Care Provider [phone] Encounter Details Date Type Department Care Team Description 06/30/2010 Orders Only [facility] Hyp ertension goal BP (blood pressure) < 140/90; [facility] Hyperlipidemia LDL goal <130 ; [address] [facility] Special screening for malign ant neoplasm of prostate; [place] [address] HYPERTROPHY of PROSTATE [phone] Social History Tobacco Use Types Packs/Day Years Used Date Smoking Tobacco: Former Cigarettes Quit : 02/06/1984 Smokeless Tobacco: Never Alcohol Use Standard Drinks/Week Comments Yes 1.7 (1 standard drink = 0.6 oz pure alco hol) moderate Sex Assigned at Date Recorded Male 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 documented as of this encounter Plan of [...] AM CDT) athologist Signature Creatinine 123 mg/dL COUNTS INCLUDE 234 [facility] AT [facility] Urine [facility] Albumin Urine 3 mg/L COUNTS INCLUDE 234 BEDS AT [facility] mg/L [facility] Albumin Urine 2.44 0 - 20 COUNTS INCLUDE 234 BEDS AT [facility] mg/g Cr mg/g Cr [facility] Specimen Anatomical Collection Method Collection Time Receive d Time (Source) Location / / Volume Laterality Urine specimen 06/30/2010 9:02 AM 011 9:03 (specimen) CDT AM CDT Nasir Velazquez MD LAB - URINE ORDERABLES Performing Organization Address City/[facility]/ZIP Code Phon e Number [id number] [place] [address] LABS Prostate spec antigen screen (06/30/2010 9:01 AM CDT) athologist Signature PSA 0.59 0 - 4 ug/L [facility] Specimen Anatomical Collection Method Collection Time Receive d Time (Source) Location / / Volume Laterality Blood specimen 06/30/2010 9:01 AM 011 9:02 (specimen) CDT AM CDT Nasir Velazquez MD LAB - BLOOD ORDERABLES Performing Organization Address City/[facility]/ZIP Code Phon e Number [facility] [address] [place] [address] [facility] LAB (ABNORMAL) Comprehensive metabolic panel (06/30/2010 9:01 AM CDT) athologist Signature Sodium 144 133 - 144 [place] mmol/L [facility] Potassium 4.0 3.4 - 5.3 [place] mmol/L [facility] Chloride 103 94 - 109 [place] mmol/L [facility] Carbon Dioxide 31 20 - 32 [place] mmol/L [facility] Anion Gap 10 6 - 17 [place] mmol/L [facility] Glucose 100 (H) 60 - 99 [place] mg/dL [facility] Urea Nitrogen 17 7 - 30 [place] mg/dL [facility] Creatinine 1.05 0.66 - [place] 1.25 mg/dL [facility] GFR Estimate 71 >60 [place] mL/min/1.7 [facility] m2 LAB GFR Estimate If 86 >60 [place] Black mL/min/1.7 [facility] m2 LAB Calcium 9.3 8.5 - 10.4 [place] mg/dL [facility] Bilirubin Total 0.8 0.2 - 1.3 [place] mg/dL [facility] Albumin 4.2 3.3 - 4.9 [place] g/dL [facility] Comment: Reference range changed on 10/07. Protein Total 7.1 6.8 - 8.8 g/dL [facility] Comment: As of 07, reference range reflects plasma specimen type. Alkaline Phosphatase 100 40 - 150 U/L [facility] ALT 29 0 - 70 U/L [facility] LAB AST 29 0 - 55 U/L [facility] Specimen Anatomical Collection Method Collection Time Receive d Time (Source) Location / / Volume Laterality Blood specimen 06/30/2010 9:01 AM 011 9:02 (specimen) CDT AM CDT Nasir Velazquez MD LAB - BLOOD ORDERABLES Performing Organization Address City/State/ZIP Code Phon e Number [facility] [address] [place] [address] [facility] TSH with free T4 reflex (06/30/2010 9:01 AM CDT) athologist Signature TSH 1.89 0.4 - 5.0 [place] mU/L CLINIC LAB Specimen Anatomical Collection Method Collection Time Receive d Time (Source) Location / / Volume Laterality Blood specimen 06/30/2010 9:01 AM 011 9:02 (specimen) CDT AM CDT Nasir Velazquez MD LAB - BLOOD ORDERABLES Performing Organization Address City/[facility]/ZIP Code Phon e Number [facility] [address] [place] [address] [facility] LAB (ABNORMAL) Lipid panel reflex to direct LDL (06/30/2010 9:01 AM CDT) P athologist Signature Cholesterol 164 0 - 200 [facility] mg/dL CLINIC LAB Comment: LDL Cholesterol is the primary guide to therapy. The NCEP recommends further evaluation of: patients with cholesterol greater than 200 mg/dL if additional risk facto rs are present, cholesterol greater than 240 mg/dL, triglycerides greater than 1 50 mg/dL, or HDL less than 40 mg/dL. Triglycerides 187 (H) 0 - 150 mg/dL [facility] HDL Cholesterol 40 40 - 110 mg/dL [facility] LDL Cholesterol Calculated 87 0 - 129 mg/dL [facility] Comment: LDL Cholesterol is the primary guide to therapy: LDL-cholesterol goal in high risk patients is <100 mg/dL and in very high risk patients is <70 mg/dL. VLDL-Cholesterol 37 (H) 0 - 30 mg/dL [facility] Cholesterol/HDL Ratio 4.2 0.0 - 5.0 [facility] Specimen Anatomical Collection Method Collection Time Receive d Time (Source) Location / / Volume Laterality Blood specimen 06/30/2010 9:01 AM 011 9:02 (specimen) CDT AM CDT Nasir Velazquez MD LAB - BLOOD ORDERABLES Performing Organization Address City/[facility]/ZIP Code Phon e Number [facility] [address] [place] [address] [facility] (ABNORMAL) CBC with platelets (06/30/2010 9:01 AM CDT) Analysis Performed At Patho logist Time Signature WBC 5.2 4.0 - 11.0 [place] 10e9/L [facility] RBC Count 4.60 4.4 - 5.9 [place] 10e12/L [facility] Hemoglobin 13.3 13.3 - [place] 17.7 g/dL [facility] Hematocrit 38.9 (L) 40.0 - [place] 53.0 % [facility] MCV 85 78 - 100 [facility] LAB MCH 28.9 26.5 - [place] 33.0 pg [facility] MCHC 34.2 31.5 - [place] 36.5 g/dL [facility] RDW 13.1 10.0 - [place] 15.0 % [facility] Platelet Count 159 150 - 450 [place] 10e9/L [facility] Specimen Anatomical Collection Method Collection Time Receive d Time (Source) Location / / Volume Laterality Blood specimen 06/30/2010 9:01 AM 011 9:02 (specimen) CDT AM CDT Nasir Velazquez MD LAB - BLOOD ORDERABLES Performing Organization Address City/State/ZIP Code Phon e Number [facility] [address] [place] [address] [facility] documented in this encounter Visit Diagnoses Diagnosis Hypertension goal BP (blood pressure) < 140/90 Unspecified essential hypertension Hyperlipidemia LDL goal <130 Other and unspecified hyperlipidemia Special screening for malignant neoplasm of prostate HYPERTROPHY of PROSTATE Hypertrophy of prostate without urinary obstruction and other lower urinary tract symptoms (LUTS) documented in this encounter Care Teams Tarp Repairer Relationship Specialty Start Date End Date Nasir Velazquez MD PCP - General 02/18/99 10/06/13 [facility] [address] [place] [address] documented as of this encounter
--- OUTSIDE RECORDS SUMMARY | 2021-12-08 09:39 | XMS_ITS | Encounter Summary ---
:1945 Author Organization [place] Address [address] [facility] [place] [address] Care Team Providers Name Role Phone Nasir Velazquez MD Primary Care Provider [phone] Reason for Visit Reason Onset Date Comments Refill Request 08/17/2011 simvastatin Encounter Details Date Type Department Care Team Description 08/17/2011 Refill [facility] Nasir Velazquez Refill Request Clinic [place] MD Geraldo (simvastatin) [address] [place] [address] [place] [address] [facility] [phone] [place] [address] (Wo rk) Social History Tobacco Use Types Packs/Day Years Used Date Smoking Tobacco: Former Cigarettes Quit : 02/06/1984 Smokeless Tobacco: Never Alcohol Use Standard Drinks/Week Comments Yes 1.7 (1 standard drink = 0.6 oz pure alco hol) moderate Sex Assigned at Date Recorded 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 documented as of 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
--- OUTSIDE RECORDS SUMMARY | 2021-12-08 09:39 | XMS_ITS | Encounter Summary ---
:1945 Author Organization [place] Address [address] [facility] [place] [address] Care Team Providers Name Role Phone Nasir Velazquez MD Primary Care Provider [phone] Reason for Visit Reason Onset Date Comments Other 08/10/2010 [facility] Encounter Details Date Type Department Care Team Description 08/10/2010 Telephone [facility] Nasir Velazquez Other (refills sent to [facility] [place] MD Geraldo [facility]) [address] [place], [place] [address] [facility] [address] [facility] [phone] [place] [address] (Wo rk) Social History Tobacco Use Types Packs/Day Years Used Date Smoking Tobacco: Former Cigarettes Quit : 02/06/1984 Smokeless Tobacco: Never Alcohol Use Standard Drinks/Week Comments Yes 1.7 (1 standard drink = 0.6 oz pure alco hol) moderate Sex Assigned at Date Recorded Male 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 Poly Ibrahim RN. Telephone Encounter - Martha Dias - 08/10/2010 11:39 AM CDT Patient needs all refills from 07/08/2010 sent to [facility]. Patient can be reached at [phone]. Martha Dias Prosthetics Technician documented in this encounter Plan of [...] facility documented in this encounter Care Teams Ratchet Setter Relationship Specialty Start Date End Date Nasir Velazquez MD PCP - General 02/18/99 10/06/13 [place] [address] [place] [address] documented as of this encounter
--- OUTSIDE RECORDS SUMMARY | 2021-12-08 09:39 | XMS_ITS | Encounter Summary ---
:1945 Author Organization [place] Address [address] [place] [address] Care Team Providers Name Role Phone Nasir Velazquez MD Primary Care Provider [phone] Reason for Visit Auth/Cert - Closed Specialty Diagnoses / Procedures Referred By Contact Refer red To Contact Radiology Rh Xray [address] [place], [place] [address] Phone: Fax: Referral ID Status Reason Start Date Expiration Date Visits Requ ested Visits Authorized [id number] Closed 06/13/2011 12/10/2011 1 1 Encounter Details Date Type Department Care Team Description 06/14/2011 Hospital Encounter [facility] [place], Arthralgia [facility] DPM [address] [facility] [address] [address] [place] [address] (Wo rk) Social History Tobacco Use Types Packs/Day Years Used Date Smoking Tobacco: Former Cigarettes Quit : 02/06/1984 Smokeless Tobacco: Never Alcohol Use Standard Drinks/Week Comments Yes 1.7 (1 standard drink = 0.6 oz pure alco hol) moderate Sex Assigned at Date Recorded 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 Esophageal reflux [...] details and findings. Provider name: Kory Lang Approver(s):None documented in this encounter Plan of Treatment [...] PM CDT JOINT INJECT/ASP INTERMEDIATE June 13 2 11:35:00 AM History: Midfoot arthralgia with second [...] 3:59 PM CDT JOINT INJECT/ASP INTERMEDIATE ??June 13, 11:35:00 AM History: ??Midfoot arthralgia with secon [...] Sun06/14/11 at 1100, For 1 dose iopamidol ([id number]) 41% solution Given by Other 06/14/2011 12:15 [...] dose documented in this encounter Care Teams Freight Trucker Relationship Specialty Start Date End Date Nasir Velazquez MD PCP - General 02/18/99 10/06/13 [facility] [address] [place] [address] documented as of this encounter
--- OUTSIDE RECORDS SUMMARY | 2021-12-08 09:39 | XMS_ITS | Encounter Summary ---
:1945 Author Organization [place] Address [address] [place] [address] Care Team Providers Name Role Phone Nasir Velazquez MD Primary Care Provider [phone] Encounter Details Date Type Department Care Team Description 07/13/2010 Results Only [facility] Mary Kate gan, Pool F, DPM Hospital Results [address] [place], [place] [address] (Wo rk) Social History Tobacco Use Types Packs/Day Years Used Date Smoking Tobacco: Former Cigarettes Quit : 02/06/1984 Smokeless Tobacco: Never Alcohol Use Standard Drinks/Week Comments Yes 1.7 (1 standard drink = 0.6 oz pure alco hol) moderate Sex Assigned at Date Recorded Male 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/2018 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 documented as of this encounter Plan of [...] Joint injection/aspiration intermediate (07/13/2010 11:33 AM CDT) Anatomical Region Laterality Modality Lower Extremity Right Other Specimen (Source) Anatomical Collection Method Collection Time Re ceived Time Location / / Volume Laterality 07/13/2010 11:33 AM CDT Impressions 07/13/2010 2:39 PM CDT JOINT INJECT/ASP INTERMEDIATE ??Arnel 8, 011 11:32:00 AM History: ??Left foot pain [...] IMAGING ORDER MICHELLE X-ray Joint injection/aspiration intermediate (07/13/2010 11:32 AM CDT) Anatomical Region Laterality Modality Lower Extremity Right Other Specimen (Source) Anatomical Collection Method Collection Time Re ceived Time Location / / Volume Laterality 07/13/2010 11:32 AM CDT Impressions 07/13/2010 2:39 PM CDT JOINT INJECT/ASP INTERMEDIATE ??Arnel 8, 2 011 [...] on filedocumented in this encounter Care Teams Headstart Teacher Relationship Specialty Start Date End Date Nasir Velazquez MD PCP - General 02/18/99 10/06/13 [facility] [address] [place] [address] documented as of this encounter
--- OUTSIDE RECORDS SUMMARY | 2021-12-08 09:39 | XMS_ITS | Encounter Summary ---
:1945 Author Organization [place] Address [facility]ly [facility] [place] [address] Care Team Providers Name Role Phone Nasir Velazquez MD Primary Care Provider [phone] Reason for Visit Reason Onset Date Comments Refill Request 08/24/2011 Encounter Details Date Type Department Care Team Description 08/24/2011 Refill [facility] Nasir Velazquez, Refill Request Candy [address] [address] [place] [address] [address] [facility] [phone] [facility] [address] [address] (Wo rk) Social History Tobacco Use Types Packs/Day Years Used Date Smoking Tobacco: Former Cigarettes Quit : 02/06/1984 Smokeless Tobacco: Never Alcohol Use Standard Drinks/Week Comments Yes 1.7 (1 standard drink = 0.6 oz pure alco hol) moderate Sex Assigned at Date Recorded Male 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
--- OUTSIDE RECORDS SUMMARY | 2021-12-08 09:39 | XMS_ITS | Encounter Summary ---
:1945 Author Organization [place] Address [address] [facility] [place] [address] Care Team Providers Name Role Phone Nasir Velazquez MD Primary Care Provider Reason for Referral Specialty Diagnoses / Procedures Referred By Contact Refer red To Contact Naisr Velazquez And MD zarina [facility] [address] [place], [place] [address] Referral ID Status Reason Start Date Expiration Date Visits Requ ested Visits Authorized Reason for Visit Reason Comments Physical pt Pre Visit Planning - Done 07/01/10 HJ Encounter Details Date Type Department Care Team Description 07/08/2010 Office Visit [facility] Nasir Velazquez general medical examination at a health care facility (Primary Dx); Clinic Candy Chow MD HYPERTROPHY of PROSTATE ; [address] [facility]; [place], [place] CLINIC Vaccin strep pneumoniae; [phone] [address] Hypertension goal BP (blood pressure) < 140/90; [phone] Trochanteric bursitis; [place], [place] Advance ca re planning; [address] Hyperlipidemia LDL goal <130 Social History Tobacco Use Types Packs/Day Years Used Date Smoking Tobacco: Former Cigarettes Quit : 02/06/1984 Smokeless Tobacco: Never Alcohol Use Standard Drinks/Week Comments Yes 1.7 (1 standard drink = 0.6 oz pure alco hol) moderate Sex Assigned at Date Recorded 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 ROS: C: NEGATIVE for [...] Notes 07/08/2010 10:30 AM CDT >> PHOENIX HERNANDEZKAILASH Knox Jul 08, 2010 10:43 AM Patient [...] large Health maintenance- pneumovax, and ad. Phoenix Hernandezon DIRECT CASTING OPERATOR documented in this encounter Plan of Treatment Scheduled Referrals Name Type Priority Associated Diagnoses Order S maggie HONORING CHOICES REFERRAL Referral Routine [facility] cehlsey Ordered: 07/08/2010 documented as of this encounter [...] hyperlipidemia documented in this encounter Care Teams Bull Rider Relationship Specialty Start Date End Date Nasir Velazquez MD PCP - General 02/18/99 10/06/13 [facility] [address] [place] [address] documented as of this encounter
--- OUTSIDE RECORDS SUMMARY | 2021-12-08 09:39 | XMS_ITS | Encounter Summary ---
:1945 Author Organization [place] Address [address] [place] [address] Care Team Providers Name Role Phone Nasir Velazquez MD Primary Care Provider [phone] Reason for Referral - Closed Specialty Diagnoses / Procedures Referred By Contact Refer red To Contact Diagnoses Hand pain Nasir Velazquez MD [facility] [address] [place], [place] [address] Referral ID Status Reason Start Date Expiration Date Visits Requ ested Visits Authorized [id number] Closed 06/06/2011 12/03/2011 1 1 Reason for Visit Reason Comments Physical pt is fasting for labs. Encounter Details Date Type Department Care Team Description 06/06/2011 Office Visit [facility] Nasir Velazquez general medical examination at a health care facility (Primary Dx); Clinic Candy Chow MD Hand pain; [address] [facility] [address] Chronic rhinitis; [place], [place] CLINIC SCC (squamous cell carcinoma), face; [phone] [address] MORENITA (obstructive sleep apnea ); [phone] Hyperlipidemia LDL goal <130; [place], [place] Hypertensi on goal BP (blood pressure) < 140/90; [address] Screening for AAA (abdominal aortic aneu rysm) Social History Tobacco Use Types Packs/Day Years Used Date Smoking Tobacco: Former Cigarettes Quit : 02/06/1984 Smokeless Tobacco: Never Alcohol Use Standard Drinks/Week Comments Yes 1.7 (1 standard drink = 0.6 oz pure alco hol) moderate Sex Assigned at Date Recorded 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 yes Staff Signature [place] Dub[place] [facility] Today's PHQ-2 Score: 0 Abuse: Current or [...] CMA All Histories reviewed and updated in [facility]. ROS: C: NEGATIVE for fever, chills, [...] ordered. 729.5AD Hand pain Comment: Plan: ORTHO THERAPEUTIC RECREATION LEADER REFERRAL Referral to hand orthopedics for further [...] Range Method Time Signature Creatinine 196 mg/dL [facility] Urine [facility] Albumin Urine <5 mg/L [facility] mg/L Urine Microalbumin lowest re portable value has been changed from 2 mg/L to 5 [facility] mg/L due to a methodology change on May. [place] [facility] Albumin Urine Unable to 0 - 17 [facility] mg/g Cr calculate mg/g Cr [facility] Specimen Anatomical Collection Method Collection Time Receive d Time (Source) Location / / Volume Laterality Urine specimen 06/06/2011 11:20 2 (specimen) AM CDT 11:22 AM CDT Nasir Velazquez MD LAB - URINE ORDERABLES Performing Organization Address City/State/ZIP Code Phon e Number [facility] [address] [place], [place] [phone] [place] [address] LABS Basic metabolic panel (06/06/2011 11:15 AM CDT) P athologist Signature Sodium 142 133 - 144 [facility] mmol/L CLINIC LAB Potassium 3.9 3.4 - 5.3 [facility] [place] mmol/L CLINIC LAB Chloride 102 94 - 109 [facility] mmol/L CLINIC LAB Carbon Dioxide 26 20 - 32 [facility] mmol/L CLINIC LAB Anion Gap 14 6 - 17 [facility] mmol/L CLINIC LAB Glucose 97 60 - 99 [facility] [place] mg/dL CLINIC LAB Urea Nitrogen 16 7 - 30 [facility] [place] mg/dL CLINIC LAB Creatinine 1.02 0.66 - [facility] [place] 1.25 mg/dL CLINIC LAB GFR Estimate 73 >60 [facility] [place] mL/min/1.7 CLINIC LAB m2 GFR Estimate If 88 >60 [facility] Black mL/min/1.7 [facility] LAB m2 Calcium 9.6 8.5 - 10.4 [facility] mg/dL CLINIC LAB Specimen Anatomical Collection Method Collection Time Receive d Time (Source) Location / / Volume Laterality Blood specimen 06/06/2011 11:15 2 (specimen) AM CDT 11:18 AM CDT Nasir Velazquez MD LAB - BLOOD ORDERABLES Performing Organization Address City/[facility] Phon e Number [facility] [address] [place] [address] [phone] [facility] LAB (ABNORMAL) Lipid panel reflex to direct LDL (06/06/2011 11:15 AM CDT) athologist Signature Cholesterol 187 0 - 200 [facility] mg/dL CLINIC LAB Comment: LDL Cholesterol is the primary guide to therapy. The NCEP recommends further evaluation of: patients with cholesterol greater than 200 mg/dL if additional risk facto rs are present, cholesterol greater than 240 mg/dL, triglycerides greater than 1 50 mg/dL, or HDL less than 40 mg/dL. Triglycerides 232 (H) 0 - 150 mg/dL [facility] LAB HDL Cholesterol 43 40 - 110 mg/dL [facility] LAB LDL Cholesterol Calculated 98 0 - 129 mg/dL [facility] LAB Comment: LDL Cholesterol is the primary guide to therapy: LDL-cholesterol goal in high risk patients is <100 mg/dL and in very high risk patients is <70 mg/dL. VLDL-Cholesterol 46 (H) 0 - 30 mg/dL [facility] LAB Cholesterol/HDL Ratio 4.3 0.0 - 5.0 [facility] LAB Specimen Anatomical Collection Method Collection Time Receive d Time (Source) Location / / Volume Laterality Blood specimen 06/06/2011 11:15 2 (specimen) AM CDT 11:18 AM CDT Nasir Velazquez MD LAB - BLOOD ORDERABLES Performing Organization Address City/[facility] Code Phon e Number [facility] [address] [facility] [place] [address] [phone] [facility] LAB (ABNORMAL) CBC with platelets (06/06/2011 11:15 AM CDT) Analysis Performed At Patho logist Time Signature WBC 5.6 4.0 - 11.0 [facility] 10e9/L [facility] LAB RBC Count 4.45 4.4 - 5.9 [facility] 10e12/L [facility] LAB Hemoglobin 12.9 (L) 13.3 - [facility] 17.7 g/dL [facility] LAB Hematocrit 37.5 (L) 40.0 - [facility] 53.0 % [facility] LAB MCV 84 78 - 100 [facility] LAB MCH 29.0 26.5 - [facility] 33.0 pg [facility] LAB MCHC 34.4 31.5 - [facility] 36.5 g/dL [facility] LAB RDW 12.9 10.0 - [facility] 15.0 % [facility] LAB Platelet Count 155 150 - 450 [facility] 10e9/L [facility] Specimen Anatomical Collection Method Collection Time Receive d Time (Source) Location / / Volume Laterality Blood specimen 06/06/2011 11:15 2 (specimen) AM CDT 11:18 AM CDT Nasir Velazquez MD LAB - BLOOD ORDERABLES Performing Organization Address City/State/ZIP Code Phon e Number [facility] [address] [place] [address] [facility] documented in this encounter Visit Diagnoses Diagnosis Routine general medical examination at a health care facility - Primary Hand pain Pain in limb Chronic rhinitis SCC (squamous cell carcinoma), face Squamous cell carcinoma of skin of other and unspecified parts of face MORENIAT (obstructive sleep apnea) Obstructive sleep apnea (adult) (pediatr ic) Hyperlipidemia LDL goal <130 Other and unspecified hyperlipidemia Hypertension goal BP (blood pressure) < 140/90 Unspecified essential hypertension Screening for AAA (abdominal aortic aneu rysm) Screening for other and unspecified card iovascular conditions documented in this encounter Care Teams Calculating Machine Operator Relationship Specialty Start Date End Date Nasir Velazquez MD PCP - General 02/18/99 10/06/13 [facility] [address] [place] [address] documented as of this encounter
--- OUTSIDE RECORDS SUMMARY | 2021-12-08 09:39 | XMS_ITS | Encounter Summary ---
:1945 Author Organization [place] Address [address] [facility] [place] [address] Care Team Providers Name Role Phone Nasir Velazquez MD Primary Care Provider [phone] Reason for Visit Reason Onset Date Comments Patient Request 06/01/2011 Wanting to schedule for Bursa injections please phone. Encounter Details Date Type Department Care Team Description 06/01/2011 Telephone [facility] Nasir Velazquez t Request Clinic Candy Chow MD (Wanting to schedule [address] [facility] for [place]urs[place], [place] [address] [facility] please p tiara. 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 Terry is looking to have them done on June 07 or . Please phone Terry at [phone]. ANNABEL/Kae Gomez RN documented in this encounter Plan of Treatment Not on filedocumented as of this encounter Visit Diagnoses Diagnosis Arthralgia - Primary Pain in joint, site unspecified documented in this encounter Care Teams Technical Document Writer Relationship Specialty Start Date End Date Nasir Velazquez MD PCP - General 02/18/99 10/06/13 [facility] [address] [place] [address] documented as of this encounter
--- OUTSIDE RECORDS SUMMARY | 2021-12-08 09:39 | XMS_ITS | Encounter Summary ---
:1945 Author Organization [place] Address [address] [facility] [place] [address] Care Team Providers Name Role Phone Nasir Velazquez MD Primary Care Provider [phone] Reason for Referral Specialty Diagnoses / Procedures Referred By Contact Refer red To Contact Pool Mays DPM [address] [place] [address] Referral ID Status Reason Start Date Expiration Date Visits Requ ested Visits Authorized Reason for Visit Reason Comments RECHECK pt states he is going to hav e injections at [facility]. He would like to talk about it before he has the i njections. 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 Pt is requesting a re-peat [...] 06/09/2011 11:00 AM CDT >> ANGELIA GRAFF SunJune 09, 2011 11:06 AM Patient presents with: RECHECK - pt states he is going to have injections at [facility]. He would like to talk about it [...] joints. Exam otherwise negative. Pool Mays DPM IM DIAGNOSTIC IMAGING ORDER MICHELLE X-ray rt Foot [...] unspecified documented in this encounter Care Teams Sheriffs Detective Relationship Specialty Start Date End Date Nasir Velazquez MD PCP - General 02/18/99 10/06/13 [facility] [address] [place] [address] documented as of this encounter
--- OUTSIDE RECORDS SUMMARY | 2021-12-08 09:40 | XMS_ITS | Encounter Summary ---
:1945 Author Organization [place] Address [facility] [place] [address] Care Team Providers Name Role Phone Nasir Velazquez MD Primary Care Provider Reason for Visit Reason Onset Date Comments Orders 03/10/2009 [facility] Encounter Details Date Type Department Care Team Description 03/10/2009 Telephone [facility] Nasir Velazquez Orders ([facility]) [place] [address] [place] [address] [facility] [phone] [place] [address] (Wo rk) Social History Tobacco Use Types Packs/Day Years Used Date Smoking Tobacco: Former Cigarettes Quit : 02/06/1984 Alcohol Use Standard Drinks/Week Comments Yes 1.7 (1 standard drink = 0.6 oz pure alco hol) socially Sex Assigned at Date Recorded Male 01/15/2018 11:39 PM COPER HAND documented as of this encounter Miscellaneous Notes Telephone Encounter - Chelsie Clifford - 03/10/2009 5:17 PM CST Received Fax orders from [facility]. Requires Doctor Signature. Form put in Dr. Velazquez's box to sign. Chelsie Clifford RN' R HAND documented in this encounter Plan of Treatment Not on filedocumented as of this encounter Visit Diagnoses Not on filedocumented in this encounter Care Teams Survey Data Technician Relationship Specialty Start Date End Date Nasir Velazquez MD PCP - General 02/18/99 10/06/13 [facility] [address] [place] [address] documented as of this encounter
--- OUTSIDE RECORDS SUMMARY | 2021-12-08 09:40 | XMS_ITS | Encounter Summary ---
:1945 Author Organization [place] Address [address] [facility] 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 FINDINGS: There is hallux valgus deformi ty and mild degenerative changes at the first metatarsophalangeal joint. Pool Mays DPM GENERAL IMAGING documented in this encounter Visit Diagnoses Diagnosis Pain in the foot - Primary Pain in limb documented in this encounter Care Teams Lab Pack Chemist Relationship Specialty Start Date End Date Nasir Velazquez MD PCP - General 02/18/99 10/06/13 [place] [address] [place] [address] documented as of this encounter
--- OUTSIDE RECORDS SUMMARY | 2021-12-08 09:40 | XMS_ITS | Encounter Summary ---
:1945 Author Organization [place] Address [address] [facility] [place] [address] Care Team Providers Name Role Phone Nasir Velazquez MD Primary Care Provider [phone] Reason for Visit Reason Onset Date Comments Foot Problems 11/04/2008 Seen today for rt fo ot pain Encounter Details Date Type Department Care Team Description 11/04/2008 Telephone [facility] Pool Mays, Velma t Problems (Seen Clinic [facility] today for rt foot pain) [address] [facility] [address] [phone] [place], [place] [address] (Wo rk) Social History Tobacco Use Types Packs/Day Years Used Date Smoking Tobacco: Former Cigarettes Quit : 02/06/1984 Alcohol Use Standard Drinks/Week Comments Yes 1.7 (1 standard drink = 0.6 oz pure alco hol) socially Sex Assigned at Date Recorded 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 Placed order for X ray of left foot. He will go to [facility] tomorrow for the X ray. OnceDr. Mays had reviewed the X ray I will call the patient back. Pt may be reached at [phone] or [phone] Florecita Graff CMA Telephone Encounter - Florecita Graff - 11/05/2008 9:00 AM CDT LM for pt to call me. Florecita Graff CMA Telephone Encounter - Pool Mays - 11/04/2008 2:58 PM CDT Florecita, I would suggest having pt come in for future 3 view WB lt foot x-ray. Based on the findings, then possible injection @ [facility] Radiology. Telephone Encounter - Elly Jeffries - [...] limb documented in this encounter Care Teams Cylinder Valve Repairer Relationship Specialty Start Date End Date Nasir Velazquez MD PCP - General 02/18/99 10/06/13 [place] [address] [place] [address] documented as of this encounter
--- OUTSIDE RECORDS SUMMARY | 2021-12-08 09:40 | XMS_ITS | Encounter Summary ---
:1945 Author Organization [place] Address [address] [facility] [place] [address] Care Team Providers Name Role Phone Nasir Velazquez MD Primary Care Provider [phone] Reason for Referral Office Workup No CT/MRI - Closed Specialty Diagnoses / Procedures Referred By Contact Refer red To Contact Diagnoses Chest pain Palpitation Kedar Maki [facility] [address] [facility] [place] [address] [facility] [place] [address] [place] [address] Phone: [phone] [place] [id number] Referral ID Status Reason Start Date Expiration Date Visits Requ ested Visits Authorized [id number] Closed 03/24/2009 02/04/2011 1 1 ORGAN TECHNICIAN Reason for Visit Reason Comments Musculoskeletal Problem pt states that he has been h aving some spasms left chest area x 2-3 days. no chest pain. Encounter Details Date Type Department Care Team Description 03/24/2009 [facility] PSA (Prostate Specific Antigen) (Primary Dx); Clinic Candy Conn PA-C Chest Pain; [address] [facility] Palpitation; [facility] HYPERTROPHY of PROSTATE ; [address] [address] [facility] BENIGN HYPERTENSION; [phone] FRAN LYNN Mixed Hyperlip idemia [address] Social History Tobacco Use Types Packs/Day Years Used Date Smoking Tobacco: Former Cigarettes Quit : 02/06/1984 Alcohol Use Standard Drinks/Week Comments Yes 1.7 (1 standard drink = 0.6 oz pure alco hol) socially Sex Assigned at Date Recorded Male 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 documented as of this encounter Last Filed Vital Signs Vital Sign Reading Time Taken Comments Blood Pressure 138/88 03/24/2009 11:48 AM PIPE ORGAN TECHNICIAN Pulse 67 03/24/2009 11:48 AM PIPE ORGAN TECHNICIAN Temperature 37.1 ??C (98.7 ??F) 03/24/2009 11:48 AM PIPE ORGAN TECHNICIAN Respiratory Rate - - Oxygen Saturation 96% 03/24/2009 11:48 AM PIPE ORGAN TECHNICIAN Inhaled Oxygen Concentration - - Weight 88.7 kg (195 lb 8 oz) 03/24/2009 11:48 AM PIPE ORGAN TECHNICIAN Height 174 cm (5' 8.5) 03/24/2009 11:48 AM PIPE ORGAN TECHNICIAN Body Mass Index 29.29 03/24/2009 11:48 AM PIPE ORGAN TECHNICIAN documented in this encounter Progress Notes Kedar [...] SPEC ANTIGEN,SCREEN 2. Chest Pain (786.50F) CONSULT [facility] 3. Palpitation (785.1A) TSH-, T4, FREE, SERUM, CONSULT [facility] 4. 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 Recheck in clinic in 2 weeks. ORGAN TECHNICIAN documented in this encounter Nursing Notes 03/24/2009 [...] completed using cuff size: large Phoenix Dubois CREW DIRECTOR documented in this encounter Plan of [...] hyperlipidemia documented in this encounter Care Teams Math Interventionist Relationship Specialty Start Date End Date Nasir Velazquez MD PCP - General 02/18/99 10/06/13 [facility] [address] [place] [address] documented as of this encounter
--- OUTSIDE RECORDS SUMMARY | 2021-12-08 09:40 | XMS_ITS | Encounter Summary ---
:1945 Author Organization [place] Address [address] [facility] [place] [address] Care Team Providers Name Role Phone Nasir Velazquez MD Primary Care Provider [phone] Reason for Visit Reason Onset Date Comments Results 11/06/2008 Encounter Details Date Type Department Care Team Description 11/06/2008 Telephone [facility] Pool Da Silva, DPM Results [address] [facility] [address] [place] [address] [place], [place] [address] (Wo rk) Social History Tobacco Use Types Packs/Day Years Used Date Smoking Tobacco: Former Cigarettes Quit : 02/06/1984 Alcohol Use Standard Drinks/Week Comments Yes 1.7 (1 standard drink = 0.6 oz pure alco hol) socially Sex Assigned at Date Recorded Male 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 Gave him results. He will set up appt for inj. Of both feet. 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 Will need to set up injection at [facility]. Telephone Encounter - Lexi Bartholomew - 11/06/2008 11:19 AM CDT Would like a call today as soon as x-ray results come back. Is near the clinic and would like to come in to get his injections. Please call [phone]. documented in this encounter Plan of Treatment Not on filedocumented as of this encounter Visit Diagnoses Diagnosis Arthralgia - Primary Pain in joint, site unspecified documented in this encounter Care Teams Social Services Coordinator Relationship Specialty Start Date End Date Nasir Velazquez MD PCP - General 02/18/99 10/06/[address] [address] documented as of this encounter
--- OUTSIDE RECORDS SUMMARY | 2021-12-08 09:40 | XMS_ITS | Encounter Summary ---
:1945 Author Organization [place] Address [address] [facility] [place] [address] Care Team Providers Name Role Phone Nasir Velazquez MD Primary Care Provider [phone] Encounter Details Date Type Department Care Team Description 11/11/2008 Results Only [facility] Eag Pool Theodore, DPM [address] [place] [address] [facility] [address] [place], [place] [address] (Wo rk) Social History Tobacco Use Types Packs/Day Years Used Date Smoking Tobacco: Former Cigarettes Quit : 02/06/1984 Alcohol Use Standard Drinks/Week Comments Yes 1.7 (1 standard drink = 0.6 oz pure alco hol) socially Sex Assigned at Date Recorded Male 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 HC FLUORO GUIDE FOR Routine 11/11/2008 10:04 AM R esults for this NEEDLE PLACEMENT CDT procedure a re in BX/ASP/INJ/LOC DEV the resul ts section. documented in this encounter Results FLUOROSCOPIC GUIDANCE NEEDLE PLACEMENT (11/11/2008 10:05 AM CDT) Anatomical Region Laterality Modality Other Specimen (Source) Anatomical Collection Method Collection Time Re ceived Time Location / / Volume Laterality 11/11/2008 10:05 AM CDT Impressions 11/27/2008 1:53 PM CDT EXAM: Right second and third and [...] pending. Pool Mays DPM SPECIAL IMAGING STUDIES FLUOROSCOPIC GUIDANCE NEEDLE PLACEMENT (11/11/2008 10:04 AM CDT) Anatomical Region Laterality Modality Other Specimen (Source) Anatomical Collection Method Collection Time Re ceived Time Location / / Volume Laterality 11/11/2008 10:04 AM CDT Impressions 11/11/2008 10:19 AM CDT EXAM: Right second [...] pending. Pool Mays DPM SPECIAL IMAGING STUDIES documented in this encounter Visit Diagnoses Not on filedocumented in this encounter Care Teams Demonstrator Sewing Techniques Relationship Specialty Start Date End Date Nasir Velazquez MD PCP - General 02/18/99 10/06/13 [facility] [place] [address] [place] [address] documented as of this encounter
--- OUTSIDE RECORDS SUMMARY | 2021-12-08 09:40 | XMS_ITS | Encounter Summary ---
:1945 Author Organization [place] Address [address] [place] [address] Care Team Providers Name Role Phone Nasir Velazquez MD Primary Care Provider [phone] Reason for Visit Reason Comments Allied Health Visit bp check Encounter Details Date Type Department Care Team Description 04/23/2009 Allied Health/Nurse [facility] All ied Health Visit (bp Visit Clinic [place] check) [address] [place] [address] Social History Tobacco Use Types Packs/Day Years Used Date Smoking Tobacco: Former Cigarettes Quit : 02/06/1984 Alcohol Use Standard Drinks/Week Comments Yes 1.7 (1 standard drink = 0.6 oz pure alco hol) socially Sex Assigned at Date Recorded Male 01/15/2018 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 Velazquez. Phoenix Dubois CMA Initial BP 120/76 Pulse 64 Estimated Body mass index is 29.29 kg/(m^2) as calculated from the following: Height as of 03/24/09: 5' 8.5(1.74 m). Weight as of 03/24/09: 195 lb 8 oz(88.678 kg).. BP completed using cuff size: large Phoenix Dubois CMA documented in this encounter Plan of Treatment Not on filedocumented as of this encounter Visit Diagnoses Diagnosis BP check - Primary Screening for hypertension documented in this encounter Care Teams Slot Editor Relationship Specialty Start Date End Date Nasir Velazquez MD PCP - General 02/18/99 10/06/13 [place] [address] [place] [address] documented as of this encounter
--- OUTSIDE RECORDS SUMMARY | 2021-12-08 09:40 | XMS_ITS | Encounter Summary ---
:1945 Author Organization [place] Address [address] [facility] [place] [address] Care Team Providers Name Role Phone Nasir Velazquez MD Primary Care Provider [phone] Reason for Visit Reason Onset Date Comments Erroneous encounter-disregard 03/17/2009 Encounter Details Date Type Department Care Team Description 03/17/2009 Telephone [facility] Nasir Velazquez [facility] MD Geraldo encounter-disregard [address] [place], [place] [address] [facility] [address] [facility] [phone] [place] [address] (Wo rk) Social History Tobacco Use Types Packs/Day Years Used Date Smoking Tobacco: Former Cigarettes Quit : 02/06/1984 Alcohol Use Standard Drinks/Week Comments Yes 1.7 (1 standard drink = 0.6 oz pure alco hol) socially Sex Assigned at Date Recorded Male 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 F FUNDRAISING OFFICER documented in this encounter Plan of Treatment Not on filedocumented as of this encounter Visit Diagnoses Not on filedocumented in this encounter Care Teams Biostatistics Manager Relationship Specialty Start Date End Date Nasir Velazquez MD PCP - General 02/18/99 10/06/13 [facility] [address] [place] [address] documented as of this encounter
--- OUTSIDE RECORDS SUMMARY | 2021-12-08 09:40 | XMS_ITS | Encounter Summary ---
:1945 Author Organization [place] Address [address] [facility] [place] [address] Care Team Providers Name Role Phone Nasir Velazquez MD Primary Care Provider [phone] Encounter Details Date Type Department Care Team Description 07/22/2009 Telephone [facility] [place] [address] [place] [address] [address] [facility] [phone] [facility] [address] [address] (Wo rk) Social History Tobacco Use Types Packs/Day Years Used Date Smoking Tobacco: Former Cigarettes Quit : 02/06/1984 Alcohol Use Standard Drinks/Week Comments Yes 1.7 (1 standard drink = 0.6 oz pure alco hol) socially Sex Assigned at Date Recorded Male 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 He would also need a 90 day refill for Simvasatin sent to the mail order. He can be reached at [phone]. DL 6-17@10:51am documented in this encounter Plan of Treatment Not on filedocumented as of this encounter Visit Diagnoses Diagnosis Mixed hyperlipidemia - Primary documented in this encounter Care Teams Liaison Officer Relationship Specialty Start Date End Date Nasir Velazquez MD PCP - General 02/18/99 10/06/13 [facility] [address] [place] [address] documented as of this encounter
--- OUTSIDE RECORDS SUMMARY | 2021-12-08 09:40 | XMS_ITS | Encounter Summary ---
:1945 Author Organization [place] Address [address] [facility] [place] [address] Care Team Providers Name Role Phone Nasir Velazquez MD Primary Care Provider [phone] Reason for Visit Reason Onset Date Comments Patient Request 09/13/2009 Omeprazole Encounter Details Date Type Department Care Team Description 09/13/2009 Telephone [facility] Nasir Velazquez t Request Clinic [place] MD Geraldo (Omeprazole) [address] [place] [address] [place] [address] [facility] [phone] [place] [address] (Wo rk) Social History Tobacco Use Types Packs/Day Years Used Date Smoking Tobacco: Former Cigarettes Quit : 02/06/1984 Alcohol Use Standard Drinks/Week Comments Yes 1.7 (1 standard drink = 0.6 oz pure alco hol) socially Sex Assigned at Date Recorded Male 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 I show we didn't receive it. Carlos needs a refill sent to [facility] in [place] ([facility]) by Sunday. Also, send to [facility]. Carlos can be reachedat [phone]. DL documented in this encounter Plan of Treatment Not on filedocumented as of this encounter Visit Diagnoses Diagnosis Esophageal reflux - Primary documented in this encounter Care Teams Barrel Painter Relationship Specialty Start Date End Date Nasir Velazquez MD PCP - General 02/18/99 10/06/13 [facility] [address] [place] [address] documented as of this encounter
--- OUTSIDE RECORDS SUMMARY | 2021-12-08 09:40 | XMS_ITS | Encounter Summary ---
:1945 Author Organization [place] Address [address] [facility] [place] [address] Care Team Providers Name Role Phone Nasir Velazquez MD Primary Care Provider [phone] Reason for Visit Reason Comments RECHECK review stress test results a nd recent labs. Encounter Details Date Type Department Care Team Description 04/30/2009 Office Visit [facility] Nasir Velazquez Hypert ension (Primary Dx); Clinic [place] MD Geraldo HYPERTROPHY of PROSTATE ; [address] [facility] [place] Mixed Hyperlipidemia; [place], [place] CLINIC [place] (Obstructive Sleep Apnea); [address] [address] Nasal Congestion [phone] [place] [address] Social History Tobacco Use Types Packs/Day Years Used Date Smoking Tobacco: Former Cigarettes Quit : 02/06/1984 Alcohol Use Standard Drinks/Week Comments Yes 1.7 (1 standard drink = 0.6 oz pure alco hol) socially Sex Assigned at Date Recorded Male 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 Current outpatient prescriptions ordered prior to [...] greater than 50% of 25 minutes of ovdu-lu-kwws time counseling patient and/or coordinating care regarding [...] completed using cuff size: large Phoenix Dubois NETWORK SUPPORT SPECIALIST documented in this encounter Plan of [...] es documented in this encounter Care Teams Uniform Maker Relationship Specialty Start Date End Date Nasir Velazquez MD PCP - General 02/18/99 10/06/13 [facility] [address] [place] [address] documented as of this encounter
--- OUTSIDE RECORDS SUMMARY | 2021-12-08 09:40 | XMS_ITS | Encounter Summary ---
:1945 Author Organization [place] Address [address] 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 The NCEP recommends further evaluation of: patients with cholesterol <200 mg/dL if additional risk factors are present, cholesterol >240 mg/dL, triglycerides >150 mg/dL, or HDL <40 mg/dL. Triglycerides 212 (H) 0 - 150 mg/dL [facility] HDL Cholesterol 35 (L) 40 - 110 mg/dL [facility] LDL Cholesterol Calculated 108 0 - 129 mg/dL [facility] Comment: LDL Cholesterol is the primary guide to therapy: LDL-cholesterol goal in high risk patients is <100 mg/dL and in very high risk patients is <70 mg/dL. VLDL-Cholesterol 42 (H) 0 - 30 mg/dL [facility] Cholesterol/HDL Ratio 5.3 (H) 0.0 - 5.0 [facility] Specimen Anatomical Collection Method Collection Time Receive d Time (Source) Location / / Volume Laterality 06/30/2009 10:21 06/30/2009 AM CDT 10:23 AM CDT Maximilian Garcia PA-C LABORATORY Performing Organization Address City/State/ZIP Code Phon e Number [facility] [address] [place] [address] [facility] documented in this encounter Visit Diagnoses Diagnosis Mixed hyperlipidemia documented in this encounter Care Teams Industrial Analyst Relationship Specialty Start Date End Date Nasir Velazquez MD PCP - General 02/18/99 10/06/13 [facility] [address] [place] [address] documented as of this encounter
--- OUTSIDE RECORDS SUMMARY | 2021-12-08 09:40 | XMS_ITS | Encounter Summary ---
:1945 Author Organization [place] Address Critical access hospital0 [facility] [place] [address] Care Team Providers Name Role Phone Nasir Velazquez MD Primary Care Provider [phone] Reason for Visit Reason Onset Date Comments Refill Request 03/21/2010 Encounter Details Date Type Department Care Team Description 03/21/2010 MyC Refill [facility] Nasir Vel[place] [address] [place] [address] [facility] [phone] 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 Can you refill? Chelsie Clifford RN BP Readings from Last 2 Encounters: 04/30/2009 124/78 04/23/2009 120/76 CR 1.02 10/19/2008 POTASSIUM 4.0 10/19/2008 OR NET SOFTWARE DEVELOPER Telephone Encounter - Chelsie Clifford - 03/21/2010 11:50 AM SENIOR NET SOFTWARE DEVELOPER Message from [employer]: Terry Montero would like a refill of the following medications: HYDROCHLOROTHIAZIDE 25 MG OR TABS [Nasir Velazquez MD] Preferred pharmacy: [facility] Comment: 4 days left OR NET SOFTWARE DEVELOPER documented in this encounter Plan of Treatment Not on filedocumented as of this encounter Visit Diagnoses Diagnosis Hypertension - Primary Unspecified essential hypertension Hyperlipidemia LDL goal <130 Other and unspecified hyperlipidemia documented in this encounter Care Teams Minister Relationship Specialty Start Date End Date Nasir Velazquez MD PCP - General 02/18/99 10/06/13 [place] [address] [place] [address] documented as of this encounter
--- OUTSIDE RECORDS SUMMARY | 2021-12-08 09:40 | XMS_ITS | Encounter Summary ---
:1945 Author Organization [place] Address [address] [facility] [place] [address] Care Team Providers Name Role Phone Nasir Velazquez MD Primary Care Provider [phone] Raghavendra Deras MD Primary Care Provider Unavailable Encounter Details Date Type Department Care Team Description 03/26/2009 Historic Results [facility] Heart Unknown, 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 documented as of this encounter Plan of Treatment Not on filedocumented as of this encounter Procedures Procedure Name Priority Date/Time Associated Diagnosis Comme nts ECHO CARDIAC - HIM SCAN 03/26/2009 12:00 AM DIFFERENTIAL SPECIALIST - ARCHIVE documented in this encounter Results ECHO CARDIAC - HIM SCAN - ARCHIVE (03/26/2009 12:00 AM DIFFERENTIAL SPECIALIST) Anatomical Region Laterality Modality Echocardiography Specimen (Source) Anatomical Location Collection Method / Collectio n Time Received Time / Laterality Volume 03/26/2009 Narrative This result has an attachment that is no t available. Provider Scan CV ECHO ORDERABLES documented in this encounter Visit Diagnoses Not on filedocumented in this encounter Care Teams Bristle Machine Operator Relationship Specialty Start Date End Date Nasir Velazquez MD PCP - General 02/18/99 10/06/13 [facility] [address] [place] [address] Raghavendra Deras MD PCP - General Family Practice 10/07/13 documented as of this encounter
--- OUTSIDE RECORDS SUMMARY | 2021-12-08 09:40 | XMS_ITS | Encounter Summary ---
:1945 Author Organization [place] Address Critical access hospital0 [facility] [place] [address] Care Team Providers Name Role Phone Nasir Velazquez MD Primary Care Provider [phone] Reason for Visit Reason Onset Date Comments Refill Request 12/20/2009 Encounter Details Date Type Department Care Team Description 12/20/2009 MyC Refill [facility] Nasir Velaz[place] [address] [place] [address] [facility] [phone] [facility] [address] [address] (Wo rk) Social History Tobacco Use Types Packs/Day Years Used Date Smoking Tobacco: Former Cigarettes Quit : 02/06/1984 Alcohol Use Standard Drinks/Week Comments Yes 1.7 (1 standard drink = 0.6 oz pure alco hol) socially Sex Assigned at Date Recorded Male 01/15/2018 11:39 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 Sig: ??1 TABLET DAILY ? Class: ??Fax ? Route: ??Oral ? Order: ??[id number] ?? Pharmacy [facility] ?? Associated Diagnoses HYPERTROPHY of PROSTATE ?? Refill done. Cehlsie Clifford RN ATION ANALYST Telephone Encounter - Chelsie Clifford - 12/20/2009 12:12 PM VIBRATION ANALYST Message from [email or web address]: Terry Gambleeld would like a refill of the following medications: DOXAZOSIN MESYLATE 4 MG OR TABS [Nasir Velazquez MD] Preferred pharmacy: [facility] Comment: ATION ANALYST documented in this encounter Plan of Treatment Not on filedocumented as of this encounter Visit Diagnoses Diagnosis HYPERTROPHY of PROSTATE - Primary Hypertrophy of prostate without urinary obstruction and other lower urinary tract symptoms (LUTS) documented in this encounter Care Teams Pv Design Engineer Relationship Specialty Start Date End Date Nasir Velazquez MD PCP - General 02/18/99 10/06/13 [place] [address] [place] [address] documented as of this encounter
--- OUTSIDE RECORDS SUMMARY | 2021-12-08 09:40 | XMS_ITS | Encounter Summary ---
:1945 Author Organization [place] Address [address] [facility] [place] [address] Care Team Providers Name Role Phone Nasir Velazquez MD Primary Care Provider [phone] Encounter Details Date Type Department Care Team Description 04/23/2009 Orders Only [facility] Clinic Mix ed Hyperlipidemia; [facility] Palpitation; [address] [facility] Screening PSA (Prostate Spec ific Antigen); [place] [address] HYPERTROPHY of PROSTATE [phone] Social History Tobacco Use Types Packs/Day Years Used Date Smoking Tobacco: Former Cigarettes Quit : 02/06/1984 Alcohol Use Standard Drinks/Week Comments Yes 1.7 (1 standard drink = 0.6 oz pure alco hol) socially Sex Assigned at Date Recorded Male 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 documented in this encounter Plan of Treatment Not on filedocumented as of this encounter Procedures Procedure Name Priority Date/Time Associated Diagnosis Comme nts [facility] LIPID PANEL, Routine 04/23/2009 8:36 AM Mixed [...] PROSTATE SPEC ANTIGEN,SCREEN (04/23/2009 8:36 AM CDT) P athologist Signature PSA 0.49 0 - 4 ug/L [facility] Specimen Anatomical Collection Method Collection Time Receive d Time (Source) Location / / Volume Laterality 04/23/2009 8:36 AM 0 8:37 CDT AM CDT Kedar Maki PA-C LABORATORY Performing Organization Address City/State/ZIP Code Phon e Number [facility] [address] [place] [address] [facility] T4, FREE, SERUM (04/23/2009 8:36 AM CDT) athologist Signature T4 Free 1.15 0.70 - 1.85 [facility] ng/dL [facility] Specimen Anatomical Collection Method Collection Time Receive d Time (Source) Location / / Volume Laterality 04/23/2009 8:36 AM 0 8:37 CDT AM CDT Kedar Maki PA-C LABORATORY Performing Organization Address City/[facility]/ZIP Code Phon e Number [facility] [address] [place] [address] [facility] TSH- (04/23/2009 8:36 AM CDT) athologist Signature TSH 2.27 0.4 - 5.0 [facility] mU/L [facility] Specimen Anatomical Collection Method Collection Time Receive d Time (Source) Location / / Volume Laterality 04/23/2009 8:36 AM 0 8:37 CDT AM CDT Kedar Maki PA-C LABORATORY Performing Organization Address City/[facility]/ZIP Code Phon e Number [facility] [address] [place] [address] [facility] (ABNORMAL) LIPID PANEL, REFLEX TO DIRECT LDL (04/23/2009 8:36 AM CDT) athologist Signature Cholesterol 155 0 - 200 [facility] mg/dL CLINIC LAB Comment: LDL Cholesterol is the primary guide to therapy. The NCEP recommends further evaluation of: patients with cholesterol <200 mg/dL if additional risk factors are present, cholesterol >240 mg/dL, triglycerides >150 mg/dL, or HDL <40 mg/dL. Triglycerides 222 (H) 0 - 150 mg/dL [facility] HDL Cholesterol 35 (L) 40 - 110 mg/dL [facility] LDL Cholesterol Calculated 76 0 - 129 mg/dL [facility] Comment: LDL Cholesterol is the primary guide to therapy: LDL-cholesterol goal in high risk patients is <100 mg/dL and in very high risk patients is <70 mg/dL. VLDL-Cholesterol 44 (H) 0 - 30 mg/dL [facility] Cholesterol/HDL Ratio 4.4 0.0 - 5.0 [facility] Specimen Anatomical Collection Method Collection Time Receive d Time (Source) Location / / Volume Laterality 04/23/2009 8:36 AM 0 8:37 CDT AM CDT Kedar Maki PA-C LABORATORY Performing Organization Address City/State/ZIP Code Phon e Number [facility] [address] [place] [address] [facility] documented in this encounter Visit Diagnoses Diagnosis Mixed hyperlipidemia Palpitation Palpitations Screening PSA (prostate specific antigen ) Special screening for malignant neoplasm of prostate HYPERTROPHY of PROSTATE Hypertrophy of prostate without urinary obstruction and other lower urinary tract symptoms (LUTS) documented in this encounter Care Teams Geological Engineer Relationship Specialty Start Date End Date Nasir Velazquez MD PCP - General 02/18/99 10/06/13 [facility] [address] [place] [address] documented as of this encounter
--- OUTSIDE RECORDS SUMMARY | 2021-12-08 09:40 | XMS_ITS | Encounter Summary ---
:1945 Author Organization [place] Address [address] [facility] [place] [address] Care Team Providers Name Role Phone Nasir Velazquez MD Primary Care Provider [phone] Raghavendra Deras MD Primary Care Provider Unavailable Raghavendra Deras MD Unavailable Unavailable Raghavendra Deras MD Unavailable Unavailable Reason for Visit Reason Onset Date Comments MyChart Communication 03/12/2009 Simvastatin and HC TZ Encounter Details Date Type Department Care Team Description 03/12/2009 MyC Refill [facility] Nasir Velazquez Communication Clinic Victor MD Geraldo (Simvastatin and HCTZ) [address] [place], [place] CLINIC [address] [address] [facility] [phone] [place] [address] (Wo rk) Social History Tobacco Use Types Packs/Day Years Used Date Smoking Tobacco: Former Cigarettes Quit : 02/06/1984 Alcohol Use Standard Drinks/Week Comments Yes 1.7 (1 standard drink = 0.6 oz pure alco hol) socially Sex Assigned at Date Recorded Male 01/15/2018 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 Last refills 4/20/09 and last OV 10/19/08 with PCP.BP 146/80. FLP LDL 113, ALT WNL 10/19/08. K Cr WNL 10/19/08. Due for labs in April. Left note with refill to make appt. Per [facility] refill protocols, refills done. Selene Raymond RN NFORMATICS ENGINEER Telephone Encounter - Selene Raymond - 03/15/2009 11:05 AM BIOINFORMATICS ENGINEER Message from [employer]: Terry Montero would like a refill of the following medications: SIMVASTATIN 20 MG OR TABS [Nasir Velazquez MD] HYDROCHLOROTHIAZIDE 25 MG OR TABS [Nasir Velazquez MD] Preferred pharmacy: [facility] Comment: NFORMATICS ENGINEER documented in this encounter Plan of Treatment Not on filedocumented as of this encounter Visit Diagnoses Diagnosis Mixed hyperlipidemia Essential hypertension, benign documented in this encounter Care Teams Stripper Color Relationship Specialty Start Date End Date Nasir Velazquez MD PCP - General 02/18/99 10/06/13 [facility] [address] [place] [address] Raghavendra Deras MD PCP - General Family Practice 10/07/13 Raghavednra Deras MD PCP - Assigned PCP 01/23/16 04/09/18 Raghavendra Deras MD Assigned PCP 01/23/16 05/14/21 documented as of this encounter
--- OUTSIDE RECORDS SUMMARY | 2021-12-08 09:40 | XMS_ITS | Encounter Summary ---
:1945 Author Organization [place] Address [address] [facility] [place] [address] Care Team Providers Name Role Phone Nasir Velazquez MD Primary Care Provider [phone] Encounter Details Date Type Department Care Team Description 03/26/2009 Orders Only [facility] Maximilian Garcia SIS NOT YET Clinic [place] PA-C DEFINED (Primary Dx) [address] [facility] [place] [address] [place], [place] [phone] [address] Social History Tobacco Use Types Packs/Day Years Used Date Smoking Tobacco: Former Cigarettes Quit : 02/06/1984 Alcohol Use Standard Drinks/Week Comments Yes 1.7 (1 standard drink = 0.6 oz pure alco hol) socially Sex Assigned at Date Recorded Male 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 Maximilian Senia Whaylen PA-C SPECIAL IMAGING STUDIES documented in this encounter Visit Diagnoses Diagnosis DIAGNOSIS NOT YET DEFINED - Primary documented in this encounter Care Teams Vet Tech Relationship Specialty Start Date End Date Nasir Velazquez MD PCP - General 02/18/99 10/06/13 [facility] [address] [place] [address] documented as of this encounter
--- OUTSIDE RECORDS SUMMARY | 2021-12-08 09:40 | XMS_ITS | Encounter Summary ---
:1945 Author Organization [place] Address [address] [facility] [place] [address] Care Team Providers Name Role Phone Nasir Velazquez MD Primary Care Provider [phone] Reason for Visit Reason Onset Date Comments Refill Request 06/23/2010 doxazosin (CARDURA) 4 MG tablet [[id number] Encounter Details Date Type Department Care Team Description 06/23/2010 Refill [facility] Nasir Velazquez Refill Request Clinic Candy Chow MD (doxazosin (CARDURA) 4 [address] [facility] MG tablet [[id number] ) [place], [place] [address] [facility] [address] [facility] [phone] [place] [address] (Wo rk) Social History Tobacco Use Types Packs/Day Years Used Date Smoking Tobacco: Former Cigarettes Quit : 02/06/1984 Alcohol Use Standard Drinks/Week Comments Yes 1.7 (1 standard drink = 0.6 oz pure alco hol) socially Sex Assigned at Date Recorded Male 01/15/2018 11:39 PM CANVAS 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 Ariella Davidson Body Builder documented in this encounter Plan of Treatment Not on filedocumented as of this encounter Visit Diagnoses Diagnosis HYPERTROPHY of PROSTATE - Primary Hypertrophy of prostate without urinary obstruction and other lower urinary tract symptoms (LUTS) documented in this encounter Care Teams Engineer Rf Deployment Relationship Specialty Start Date End Date Nasir Velazquez MD PCP - General 02/18/99 10/06/13 [facility] [address] [place] [address] documented as of this encounter
--- OUTSIDE RECORDS SUMMARY | 2021-12-08 09:40 | XMS_ITS | Encounter Summary ---
:1945 Author Organization [place] Address [address] [facility] [place] [address] Care Team Providers Name Role Phone Nasir Velazquez MD Primary Care Provider [phone] Reason for Visit Reason Onset Date Comments Refill Request 12/04/2008 doxazosin Encounter Details Date Type Department Care Team Description 12/04/2008 Refill [facility] Nasir Velazquez Refill Request [facility] MD Geraldo (doxazosin) [address] [address] [facility] [phone] [place] [address] (Wo rk) Social History Tobacco Use Types Packs/Day Years Used Date Smoking Tobacco: Former Cigarettes Quit : 02/06/1984 Alcohol Use Standard Drinks/Week Comments Yes 1.7 (1 standard drink = 0.6 oz pure alco hol) socially Sex Assigned at Date Recorded Male 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
--- OUTSIDE RECORDS SUMMARY | 2021-12-08 09:41 | XMS_ITS | Encounter Summary ---
:1945 Author Organization [place] Address [address] [facility] 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 documented in this encounter Results CT SCAN CHEST (03/20/2008 12:45 PM LOSS PREVENTION COORDINATOR) Anatomical Region Laterality Modality Other Specimen (Source) Anatomical Collection Method Collection Time Re ceived Time Location / / Volume Laterality 03/20/2008 12:45 PM LOSS PREVENTION COORDINATOR Impressions 03/22/2008 9:32 AM LOSS PREVENTION COORDINATOR CT CHEST FOR NODULE ??03/20/2008 12:45 PM [...] nodules. Nasir Velazquez MD SPECIAL IMAGING STUDIES documented in this encounter Visit Diagnoses Not on filedocumented in this encounter Care Teams Steam Tender Relationship Specialty Start Date End Date Nasir Velazquez MD PCP - General 02/18/99 10/06/13 [facility] [address] [place] [address] documented as of this encounter
--- OUTSIDE RECORDS SUMMARY | 2021-12-08 09:41 | XMS_ITS | Encounter Summary ---
:1945 Author Organization [place] Address [facility] [place] [address] Care Team Providers Name Role Phone Nasir Velazquez MD Primary Care Provider Encounter Details Date Type Department Care Team Description 03/10/2008 GI Procedure [facility] Nasir Velazquez None [place] MD Geraldo [address] [place] [address] [facility] [phone] [facility] N [address] (Wo rk) Social History Tobacco Use Types Packs/Day Years Used Date Smoking Tobacco: Former Cigarettes Quit : 02/06/1984 Alcohol Use Standard Drinks/Week Comments Yes 1.7 (1 standard drink = 0.6 oz pure alco hol) socially Sex Assigned at Date Recorded Male 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 documented in this encounter Results COLONOSCOPY (03/10/2008 9:05 AM ANIMAL LABORATORY TECHNICIAN) [facility] Method Time Signature COLONOSCOPY Endoscopy RADIOLOGY RESULTS Patient Name: Terry sher ?Gender: M ? Procedure Date: 03/10/2008 9:0 5 AM ? Date of : 1945 ?Age: 62 ? Admit Type: Outpatient ? Attending MD: Wade Parsons MD ? Procedure: ? Colonoscopy Indications: ? Personal history of colonic polyps Providers: ? Wade Parsons MD Referring : ?Nasir Velazquez MD Medicines: ? Fe ntanyl [...] oxygen ? saturations were monitored continuously. The [id number] ? #[id number] was introduced through the anus and advanced [...] ? - Return to primary care phys sherrell CRAIGN. ? Yecenia Parsons M.D Wade Parsons MD Signed Date: 03/10/2008 9:40 AM Number of Addenda: 0 I was physically present for the entire viewing portion of t he exam. Note initiated on 03/10/2008 9:05 AM COLONOSCOPY RADIOLOGY RESULTS Specimen (Source) Anatomical Collection Method Collection Time Re ceived Time Location / / Volume Laterality 03/10/2008 9:05 AM ANIMAL LABORATORY TECHNICIAN Nasir Velazquez MD PROCEDURES Performing Organization Address City/State/ZIP Code Phon e Number RADIOLOGY RESULTS documented in this encounter Visit Diagnoses Not on filedocumented in this encounter Care Teams Justice Court Deputy Clerk Relationship Specialty Start Date End Date Nasir Velazquez MD PCP - General 02/18/99 10/06/13 [facility] [address] [place] [address] documented as of this encounter
--- OUTSIDE RECORDS SUMMARY | 2021-12-08 09:41 | XMS_ITS | Encounter Summary ---
:1945 Author Organization [place] Address [address] [place] [address] Care Team Providers Name Role Phone Nasir Velazquez MD Primary Care Provider [phone] Reason for Visit Reason Onset Date Comments Refill Request 05/12/2008 Omperazole supply to local pharm Encounter Details Date Type Department Care Team Description 05/12/2008 Refill [facility] Nasir Velazquez Refill Request Clinic [place] MD Geraldo ([place] [address] [facility] local pharm) [place], [place] [address] [facility] [address] [facility] [phone] [place] [address] (Wo rk) Social History Tobacco Use Types Packs/Day Years Used Date Smoking Tobacco: Former Cigarettes Quit : 02/06/1984 Alcohol Use Standard Drinks/Week Comments Yes 1.7 (1 standard drink = 0.6 oz pure alco hol) socially Sex Assigned at Date Recorded Male 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 Chelsie Clifford RN documented in this encounter Plan of Treatment Not on filedocumented as of this encounter Visit Diagnoses Diagnosis Esophageal reflux - Primary documented in this encounter Care Teams Cripple Worker Relationship Specialty Start Date End Date Nasir Velazquez MD PCP - General 02/18/99 10/06/13 [facility] [address] [place] [address] documented as of this encounter
--- OUTSIDE RECORDS SUMMARY | 2021-12-08 09:41 | XMS_ITS | Encounter Summary ---
:1945 Author Organization [place] Address [address] [facility] [place] [address] Care Team Providers Name Role Phone Nasir Velazquez MD Primary Care Provider [phone] Reason for Referral Referral not Required - Closed Specialty Diagnoses / Procedures Referred By Contact Refer red To Contact Diagnoses Foot pain Pes planus Nasir Velazquez ZZ COUNTS INCLUDE [facility] [place] [address] [address] [place], [place] [address] [place] [address] Phone: [phone] Fax: [phone] Referral ID Status Reason Start Date Expiration Date Visits Requ ested Visits Authorized [id number] Closed 10/19/2008 02/04/2011 1 1 Reason for Visit Reason Comments Pain chronic pain both feet. Righ t side is worse. Encounter Details Date Type Department Care Team Description 10/19/2008 [facility] Clinic Candy Chow MD Need for Prophylactic Vaccination with T etanus-Diphtheria (TD); [address] [facility] SAVANNAH Pes Planus; [place], [place] CLINIC BENIGN HYPERTENSION; [address] [address] Mixed Hyperlipidemia [phone] [place] [address] Social History Tobacco Use Types Packs/Day Years Used Date Smoking Tobacco: Former Cigarettes Quit : 02/06/1984 Alcohol Use Standard Drinks/Week Comments Yes 1.7 (1 standard drink = 0.6 oz pure alco hol) socially Sex Assigned at Date Recorded Male 01/15/2018 11:39 PM 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 Current outpatient prescriptions prior to encounter: [...] (primary encounter diagnosis) Comment: Plan: CONSULT ORTHO INTERNAL REVENUE AGENT referral to Podiatry. Suspect some element of navicular instability based on location of the pain. V06.5 Need for Prophylactic Vaccination with Tetanus-Diphtheria (TD) Comment: Plan: TDAP ( [employer] AGES 10-64) 734L Pes Planus Comment: Plan: CONSULT ORTHO INTERNAL REVENUE AGENT as above. 401.1 BENIGN HYPERTENSION Comment: Plan: [...] taken today with shoes off. Phoenix Dubois CMA documented in this encounter [...] athologist Signature Sodium 142 133 - 144 [place] mmol/L [facility] Potassium 4.0 3.4 - 5.3 [place] mmol/L [facility] Chloride 104 94 - 109 [place] mmol/L [facility] Carbon Dioxide 30 20 - 32 [place] mmol/L [facility] Anion Gap 8 6 - 17 [place] mmol/L [facility] Glucose 100 (H) 60 - 99 [place] mg/dL [facility] Urea Nitrogen 16 7 - 30 [place] mg/dL [facility] Creatinine 1.02 0.66 - [place] 1.25 mg/dL [facility] Comment: New IDMS-traceable calibration beginning 06/06/07 GFR Estimate 74 >60 mL/min/1.7m2 [place] [facility] GFR Estimate If Black 89 >60 mL/min/1.7m2 [facility] Calcium 9.6 8.5 - 10.4 mg/dL [facility] Bilirubin Total 0.3 0.2 - 1.3 mg/dL [facility] Albumin 4.2 3.3 - 4.9 g/dL [facility] Comment: Reference range changed on 10/07. Protein Total 7.4 6.8 - 8.8 g/dL [facility] Comment: As of 07, reference range reflects plasma specimen type. Alkaline Phosphatase 108 40 - 150 U/L [facility] ALT 24 0 - 70 U/L [facility] AST 33 0 - 55 U/L [facility]IN IC LAB Specimen Anatomical Collection Method Collection Time Receive d Time (Source) Location / / Volume Laterality 10/19/2008 11:29 10/19/2008 AM CDT 11:31 AM CDT Nasir Velazquez MD LABORATORY Performing Organization Address City/[facility]/ZIP Code Phon e Number [facility] [address] [place] [address] [phone] [facility] LIPID PANEL, REFLEX TO DIRECT LDL (10/19/2008 11:29 AM CDT) athologist Signature Cholesterol 177 0 - 200 [facility] mg/dL CLINIC LAB Comment: LDL Cholesterol [...] mg/dL. Triglycerides 116 0 - 150 mg/dL [facility] HDL Cholesterol 41 40 - 110 mg/dL [facility] LDL Cholesterol Calculated 113 0 - 129 mg/dL [facility] Comment: LDL Cholesterol is the primary guide to therapy: LDL-cholesterol goal in high risk patients is <100 mg/dL and in very high risk patients is <70 mg/dL. VLDL-Cholesterol 23 0 - 30 mg/dL [facility] Cholesterol/HDL Ratio 4.3 0.0 - 5.0 [facility] Specimen Anatomical Collection Method Collection Time Receive d Time (Source) Location / / Volume Laterality 10/19/2008 11:29 10/19/2008 AM CDT 11:31 AM CDT Nasir Velazquez MD LABORATORY Performing Organization Address City/[facility]/ZIP Code Phon e Number [facility] [address] [place] [address] [phone] [facility] documented in this encounter Visit Diagnoses Diagnosis Foot pain - Primary Pain in limb Need for prophylactic vaccination with t etanus-diphtheria (Td) Pes planus Flat foot BENIGN HYPERTENSION Essential hypertension, benign Mixed hyperlipidemia documented in this encounter Care Teams Test Equipment Mechanic Relationship Specialty Start Date End Date Nasir Velazquez MD PCP - General 02/18/99 10/06/13 [facility] [address] [place] [address] documented as of this encounter
--- OUTSIDE RECORDS SUMMARY | 2021-12-08 09:41 | XMS_ITS | Encounter Summary ---
:1945 Author Organization [place] Address [address] [facility] [place] [address] Care Team Providers Name Role Phone Nasir Velazquez MD Primary Care Provider [phone] Reason for Visit Reason Onset Date Comments Refill Request 08/11/2008 omperazole Encounter Details Date Type Department Care Team Description 08/11/2008 Refill [facility] Nasir Velazquez Refill Request Clinic [place] MD Geraldo (omperazole) [address] [place], [place] [address] [facility] [address] [facility] [phone] [place] [address] (Wo rk) Social History Tobacco Use Types Packs/Day Years Used Date Smoking Tobacco: Former Cigarettes Quit : 02/06/1984 Alcohol Use Standard Drinks/Week Comments Yes 1.7 (1 standard drink = 0.6 oz pure alco hol) socially Sex Assigned at Date Recorded Male 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 Case number for [employer] is [id number], please contact [employer] at [phone], apparently the patientonly has a couple of pills left. documented in this encounter Plan of Treatment Not on filedocumented as of this encounter Visit Diagnoses Not on filedocumented in this encounter Care Teams Electric Mule Operator Relationship Specialty Start Date End Date Nasir Velazquez MD PCP - General 02/18/99 10/06/13 [facility] [address] [place] [address] documented as of this encounter
--- OUTSIDE RECORDS SUMMARY | 2021-12-08 09:41 | XMS_ITS | Encounter Summary ---
:1945 Author Organization [place] Address [address] [facility] [place] [address] Care Team Providers Name Role Phone Nasir Velazquez MD Primary Care Provider [phone] Reason for Visit Reason Onset Date Comments Refill Request 10/15/2007 hctz, simvastatin, d oxysozin Encounter Details Date Type Department Care Team Description 10/15/2007 Refill [facility] Nasir Velazquez Refill Request (hctz, [facility] MD Geraldo simvastatin, doxysozin) [address] [place], [place] 3850 [facility] [address] [address] [phone] [place] [address] (Wo rk) Social History Tobacco Use Types Packs/Day Years Used Date Smoking Tobacco: Former Cigarettes Quit : 02/06/1984 Alcohol Use Standard Drinks/Week Comments Yes 1.7 (1 standard drink = 0.6 oz pure alco hol) socially Sex Assigned at Date Recorded Male 01/15/2018 11:39 PM RN COMPLIANCE documented as of this encounter Miscellaneous Notes [...] hyperlipidemia documented in this encounter Care Teams Mud Jack Operator Relationship Specialty Start Date End Date Nasir Velazquez MD PCP - General 02/18/99 10/06/13 [place] [address] [place] [address] documented as of this encounter
--- OUTSIDE RECORDS SUMMARY | 2021-12-08 09:41 | XMS_ITS | Encounter Summary ---
:1945 Author Organization [place] Address [address] [place] [address] Care Team Providers Name Role Phone Nasir Velazquez MD Primary Care Provider [phone] Reason for Visit Reason Onset Date Comments Refill Request 09/04/2008 omeprazole Encounter Details Date Type Department Care Team Description 09/04/2008 Refill [facility] Nasir Velazquez Refill Request [facility] MD Geraldo (omeprazole) [address] [address] [facility] [phone] [place] [address] (Wo rk) Social History Tobacco Use Types Packs/Day Years Used Date Smoking Tobacco: Former Cigarettes Quit : 02/06/1984 Alcohol Use Standard Drinks/Week Comments Yes 1.7 (1 standard drink = 0.6 oz pure alco hol) socially Sex Assigned at Date Recorded Male 01/15/2018 11:39 PM 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
--- OUTSIDE RECORDS SUMMARY | 2021-12-08 09:41 | XMS_ITS | Encounter Summary ---
:1945 Author Organization [place] Address [address] [facility] [place] [address] Care Team Providers Name Role Phone Nasir Velazquez MD Primary Care Provider [phone] Reason for Visit Reason Onset Date Comments Refill Request 04/15/2007 several meds Encounter Details Date Type Department Care Team Description 04/15/2007 Refill [facility] Nasir Velazquez Refill Request (several [facility] MD Geraldo meds) [address] [place] [address] [place] [address] [facility] [phone] [place] [address] (Wo rk) Social History Tobacco Use Types Packs/Day Years Used Date Smoking Tobacco: Former Cigarettes Quit : 02/06/1984 Alcohol Use Standard Drinks/Week Comments Yes 1.7 (1 standard drink = 0.6 oz pure alco hol) socially Sex Assigned at Date Recorded Male 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 The meds are Doxazosin, Hydrochlorothiazide, Omeprazole, Omeprazole, Simvastatin. Carlos can be reached at [phone]. DL 3-10@1:42pm documented in this encounter Plan of Treatment Not on filedocumented as of this encounter Visit Diagnoses Diagnosis HYPERTROPHY of PROSTATE Hypertrophy of prostate without urinary obstruction and other lower urinary tract symptoms (LUTS) Essential hypertension, benign Esophageal reflux Mixed hyperlipidemia documented in this encounter Care Teams Embedded Systems Engineer Relationship Specialty Start Date End Date Nasir Velazquez MD PCP - General 02/18/99 10/06/13 [facility] [address] [place] [address] documented as of this encounter
--- OUTSIDE RECORDS SUMMARY | 2021-12-08 09:41 | XMS_ITS | Encounter Summary ---
:1945 Author Organization [place] Address [address] [facility] [place] [address] Care Team Providers Name Role Phone Nasir Velazquez MD Primary Care Provider [phone] Reason for Referral Specialty Diagnoses / Procedures Referred By Contact Refer red To Contact Pool Mays DPM [address] [place] [address] Referral ID Status Reason Start Date Expiration Date Visits Requ ested Visits Authorized Reason for Visit Reason Comments Musculoskeletal Problem right foot pain across top o f ankle. Sx for 2 years. 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
--- OUTSIDE RECORDS SUMMARY | 2021-12-08 09:41 | XMS_ITS | Encounter Summary ---
:1945 Author Organization [place] Address [address] [facility] [place] [address] Care Team Providers Name Role Phone Nasir Velazquez MD Primary Care Provider [phone] Reason for Visit Reason Comments Referral for CT of the chest. Blood Draw pt is fasting for lipids trini t. needs refills Encounter Details Date Type Department Care Team Description 03/16/2008 Office Visit [facility] Nasir Velazquez Mixed Hyperlipidemia (Primary Dx); Clinic Candy Chow MD Essential Hypertension, Benign; [address] [facility] [place] Pulmonary Nodules; [place], [place] CLINIC Special Screening for Malignant Neoplasm of Prostate; [phone] [address] TDaP Vaccine [phone] [place], [place] [id number] Social History Tobacco Use Types Packs/Day Years Used Date Smoking Tobacco: Former Cigarettes Quit : 02/06/1984 Alcohol Use Standard Drinks/Week Comments Yes 1.7 (1 standard drink = 0.6 oz pure alco hol) socially Sex Assigned at Date Recorded Male 01/15/2018 11:39 PM 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 documented as of this encounter Last Filed Vital Signs Vital Sign Reading Time Taken Comments Blood Pressure 130/80 03/16/2008 10:45 AM 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 Pulse 58 03/16/2008 10:45 AM 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 Temperature 36.8 ??C (98.3 ??F) 03/16/2008 10:45 AM 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 Respiratory Rate - - Oxygen Saturation 95% 03/16/2008 10:45 AM 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 Inhaled Oxygen Concentration - - Weight 90.4 kg (199 lb 6 oz) 03/16/2008 10:45 AM 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 Height 175.3 cm (5' 9) 03/16/2008 10:45 AM 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 Body Mass Index 29.44 03/16/2008 10:45 AM 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 documented in this encounter Progress Notes [...] history, are all reviewed and updated in [facility]. Current outpatient prescriptions prior to encounter: DOXAZOSIN [...] of Prostate Comment: Plan: PROSTATE SPEC ANTIGEN,SCREEN SS DATABASE DEVELOPER documented in this encounter Nursing Notes 03/16/2008 10:45 AM CST >> [place] HERNANDEZON Mon Mar 16, 2008 11:05 AM Patient presents with: Referral - for CT of the chest. Blood Draw - pt is fasting for lipids test. needs refills Terry Manciniofield presents for as above. Initial BP 130/80 Pulse 58 Temp (Src) 98.3 ??F (36.8 ??C) (Oral) Ht 5' 9 (1.753 m) Wt 199 lb 6 oz (90.436 kg) SpO2 95% Body mass index is 29.44 kg/(m^2).. BP completed using cuff size: large Health maintenance- psa due after April. [place] Hernandezon INJECTION WAX MOLDER documented in this encounter Plan of Treatment Not on filedocumented as of this encounter Procedures Procedure Name Priority Date/Time Associated Diagnosis Comme nts HCL PROSTATE SPEC Routine 03/16/2008 11:33 Special Screening f or Results for this ANTIGEN,SCREEN AM 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 Malignant Neoplasm of proc edure are in Prostate the results section. HCL COMPREHENSIVE Routine 03/16/2008 11:33 Essential Result s for this METABOLIC PANEL AM 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 Hypertension, Benign proc edure are in the results section. HCL ALBUMIN URINE Routine 03/16/2008 11:33 Essential Result s for this (INC CREAT) AM 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 Hypertension, Benign procedu re are in the results section. CL AFF A.M.A. LIPID Routine 03/16/2008 11:33 Mixed Hyperlipide jolynn Results for this PANEL AM 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 procedure are i n the results section. documented in this encounter Results PROSTATE SPEC ANTIGEN,SCREEN (03/16/2008 11:33 AM 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) athologist Signature PSA 0.39 0 - 4 ug/L [facility] Specimen Anatomical Collection Method Collection Time Receive d Time (Source) Location / / Volume Laterality 03/16/2008 11:33 03/16/2008 AM 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 11:35 AM 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 Nasir Velazquez MD LABORATORY Performing Organization Address City/State/ZIP Code Phon e Number [facility] [address] [place] [address] [facility] MICROALBUMIN (INC URINE CREAT) (03/16/2008 11:33 AM 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) athologist Signature Creatinine 182 mg/dL [facility] Urine CAMPUS LABS Albumin Urine 6 mg/L [facility] mg/L [place] [facility] Albumin Urine 3.13 0 - 20 [facility] mg/g Cr mg/g Cr CAMPUS LABS Specimen Anatomical Collection Method Collection Time Receive d Time (Source) Location / / Volume Laterality 03/16/2008 11:33 03/16/2008 AM 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 11:35 AM 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 Nasir Velazquez MD LABORATORY Performing Organization Address City/State/ZIP Code Phon e Number [address] [address] [facility] (ABNORMAL) A.M.A. COMPREHENSIVE MET.PANEL (03/16/2008 11:33 AM 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) athologist Signature Sodium 146 (H) 133 - 144 [place] mmol/L [facility] Potassium 4.1 3.4 - 5.3 [place] mmol/L [facility] Chloride 108 94 - 109 [place] mmol/L [facility] Carbon Dioxide 22 20 - 32 [place] mmol/L [facility] Anion Gap 16 6 - 17 [place] mmol/L [facility] Glucose 99 60 - 99 [place] mg/dL [facility] Urea Nitrogen 19 7 - 30 [place] mg/dL [facility] Creatinine 0.96 0.66 [facility] 1.25 mg/dL [facility] Comment: New IDMS-traceable calibration beginning 06/06/07 GFR Estimate 79 >60 mL/min/1.7m2 [place] E [facility] GFR Estimate If Black >90 >60 mL/min/1.7m2 F [facility] Calcium 9.5 8.5 - 10.4 mg/dL [facility] Bilirubin Total 0.4 0.2 - 1.3 mg/dL [facility] Albumin 4.5 3.3 - 4.9 g/dL [facility] Comment: Reference range changed on 10/07. Protein Total 7.4 6.8 - 8.8 g/dL [place] [facility] Comment: As of 07, reference range reflects plasma specimen type. Alkaline Phosphatase 129 40 - 150 U/L [facility] ALT 36 0 - 70 U/L [facility] CLIN IC LAB AST 35 0 - 55 U/L [facility]IN IC LAB Specimen Anatomical Collection Method Collection Time Receive d Time (Source) Location / / Volume Laterality 03/16/2008 11:33 03/16/2008 AM 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 11:35 AM 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 Nasir Velazquez MD LABORATORY Performing Organization Address City/State/ZIP Code Phon e Number [facility] [address] [place] [address] [facility] (ABNORMAL) A.M.A. LIPID PANEL (03/16/2008 11:33 AM 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) P athologist Signature Cholesterol 183 0 - 200 [facility] mg/dL CLINIC LAB Comment: LDL Cholesterol [...] Triglycerides 178 (H) 0 - 150 mg/dL [facility] HDL Cholesterol 48 40 - 110 mg/dL [facility] LDL Cholesterol Calculated 99 0 - 129 mg/dL [facility] Comment: LDL Cholesterol is the primary guide to therapy: LDL-cholesterol goal in high risk patients is <100 mg/dL and in very high risk patients is <70 mg/dL. VLDL-Cholesterol 36 (H) 0 - 30 mg/dL [facility] Cholesterol/HDL Ratio 3.8 0.0 - 5.0 [facility] Specimen Anatomical Collection Method Collection Time Receive d Time (Source) Location / / Volume Laterality 03/16/2008 11:33 03/16/2008 AM 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 11:35 AM 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 Nasir Velazquez MD LABORATORY Performing Organization Address City/State/ZIP Code Phon e Number [facility] [address] [place] [address] [facility] documented in this encounter Visit Diagnoses Diagnosis Mixed hyperlipidemia - Primary Essential hypertension, benign Pulmonary nodules Other nonspecific abnormal finding of chidi ng field Special screening for malignant neoplasm of prostate Tdap vaccine Need for prophylactic vaccination with c ombined ehsjopyorf-otjpgui-ippdaktde (DTP) vaccine documented in this encounter Care Teams Ornament Stitcher Relationship Specialty Start Date End Date Nasir Velazquez MD PCP - General 02/18/99 10/06/13 [facility] [address] [place] [address] documented as of this encounter
--- OUTSIDE RECORDS SUMMARY | 2021-12-08 09:41 | XMS_ITS | Encounter Summary ---
:1945 Author Organization [place] Address [address] [facility] [place] [address] Care Team Providers Name Role Phone Nasir Velazquez MD Primary Care Provider [phone] Reason for Referral Referral not Required - Closed Specialty Diagnoses / Procedures Referred By Contact Refer red To Contact Diagnoses Adenomatous polyp of colon Nasir Velazquez ROBERT A GILL MD FACP [address] [facility] [address] [facility] [place] [address] Phone: [phone] Fax: Referral ID Status Reason Start Date Expiration Date Visits Requ ested Visits Authorized [id number] Closed 02/28/2008 02/04/2011 1 1 Encounter Details Date Type Department Care Team Description 02/27/2008 Telephone [facility] [place] [address] [place] [address] [facility] [phone] [facility] N [address] (Wo rk) Social History Tobacco Use Types Packs/Day Years Used Date Smoking Tobacco: Former Cigarettes Quit : 02/06/1984 Alcohol Use Standard Drinks/Week Comments Yes 1.7 (1 standard drink = 0.6 oz pure alco hol) socially Sex Assigned at Date Recorded Male 01/15/2018 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 Thanks for your work. TION TECHNICIAN Telephone Encounter - Tonie Chan - 02/27/2008 11:59 AM CST Patient called, wanted to know if we got his medical record in from Dr Edilson Valenzuela for his colonoscopy back in November 2002. We do, I will fax it over to Dr Parsons's office at [phone]. Also, his colonoscopy showed that he had [...] colonoscopy to Dr Parsons in the meantime. Page - Sue TION TECHNICIAN Telephone Encounter - Enedelia Morrison - 02/27/2008 9:40 AM CST Pt called he received message in [facility] he is due for colonoscopy. He did set one up with Dr. Parsons for 03/10/08. Pt checked with insurance they only usually cover the every 10yrs. Put pt's last colonoscopy and path in his chart did send to Dr. Velazquez for review. Please call or Bunkspeedt pt on what he should do or is there something Dr. Velazquez can do to get the every 10yr changed. Pt home # [phone] TION TECHNICIAN documented in this encounter Plan of Treatment Not on filedocumented as of this encounter Visit Diagnoses Diagnosis Adenomatous polyp of colon - Primary Benign neoplasm of colon documented in this encounter Care Teams Tool Drawing Checker Relationship Specialty Start Date End Date Nasir Velazquez MD PCP - General 02/18/99 10/06/13 [facility] [address] [place] [address] documented as of this encounter
--- OUTSIDE RECORDS SUMMARY | 2021-12-08 09:41 | XMS_ITS | Encounter Summary ---
:1945 Author Organization [place] Address [address] [facility] [place] [address] Care Team Providers Name Role Phone Nasir Velazquez MD Primary Care Provider [phone] Reason for Visit Reason Onset Date Comments Refill Request 08/06/2008 Omeperazole Encounter Details Date Type Department Care Team Description 08/06/2008 MyC Refill [facility] Nasir Velazquez Refill Request Clinic Candy Chow MD (Omeperazole) [address] [place], [place] CLINIC [address] [address] [facility] [phone] [place] [address] (Wo rk) Social History Tobacco Use Types Packs/Day Years Used Date Smoking Tobacco: Former Cigarettes Quit : 02/06/1984 Alcohol Use Standard Drinks/Week Comments Yes 1.7 (1 standard drink = 0.6 oz pure alco hol) socially Sex Assigned at Date Recorded 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 documented in this encounter Plan of Treatment Not on filedocumented as of this encounter Visit Diagnoses Diagnosis Esophageal reflux documented in this encounter Care Teams Movie Operator Relationship Specialty Start Date End Date Nasir Velazquez MD PCP - General 02/18/99 10/06/13 [place] [address] [place] [address] documented as of this encounter
--- OUTSIDE RECORDS SUMMARY | 2021-12-08 09:41 | XMS_ITS | Encounter Summary ---
:1945 Author Organization [place] Address [address] [facility] [place] [address] Care Team Providers Name Role Phone Nasir Velazquez MD Primary Care Provider [phone] Encounter Details Date Type Department Care Team Description 08/11/2008 Medical Correspondence [facility] Lesa Velazquez [facility] [place] [facility] [address] [place], [place] CLINIC [address] 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
--- OUTSIDE RECORDS SUMMARY | 2021-12-08 09:41 | XMS_ITS | Encounter Summary ---
:1945 Author Organization [place] Address [facility] [place] [address] Care Team Providers Name Role Phone Nasir Velazquez MD Primary Care Provider [phone] Reason for Visit Reason Onset Date Comments Refill Request 10/17/2007 Encounter Details Date Type Department Care Team Description 10/17/2007 Refill [facility] Nasir Velazquez, Refill Request Candy SALDIVAR [address] [place] [address] [facility] [phone] [facility] [address] [address] (Wo rk) Social History Tobacco Use Types Packs/Day Years Used Date Smoking Tobacco: Former Cigarettes Quit : 02/06/1984 Alcohol Use Standard Drinks/Week Comments Yes 1.7 (1 standard drink = 0.6 oz pure alco hol) socially Sex Assigned at Date Recorded Male 01/15/2018 11:39 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 Sharri Tavera RN documented in this encounter Plan of Treatment Not on filedocumented as of this encounter Visit Diagnoses Diagnosis Mixed hyperlipidemia Essential hypertension, benign documented in this encounter Care Teams Reconciliation Machine Operator Relationship Specialty Start Date End Date Nasir Velazquez MD PCP - General 02/18/99 10/06/13 [facility] [address] [place] [address] documented as of this encounter
--- OUTSIDE RECORDS SUMMARY | 2021-12-08 09:41 | XMS_ITS | Encounter Summary ---
:1945 Author Organization [place] Address [address] [facility] [place] [address] Care Team Providers Name Role Phone Nasir Velazquez MD Primary Care Provider [phone] Reason for Visit Reason Onset Date Comments Refill Request 08/20/2008 omperazole Encounter Details Date Type Department Care Team Description 08/20/[address] [facility] Nasir Velazquez Refill Request Clinic [place] MD Geraldo (omperazole) [address] [place], [place] [address] 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 Please send a 30 day Rx to [facility] pharmacy in [place] ([place]). He also needs 90 day prior auth thru [facility]. Carlos can be reached at [phone]. DL 7-15@4:03pm documented in this encounter Plan of Treatment Not on filedocumented as of this encounter Visit Diagnoses Diagnosis Esophageal reflux documented in this encounter Care Teams Industrial Service Technician Relationship Specialty Start Date End Date Nasir Velazquez MD PCP - General 02/18/99 10/06/13 [address] [place] [address] documented as of this encounter
--- OUTSIDE RECORDS SUMMARY | 2021-12-08 09:42 | XMS_ITS | Encounter Summary ---
:1945 Author Organization [place] Address [address] [facility] [place] [address] Care Team Providers Name Role Phone Nasir Velazquez MD Primary Care Provider [phone] Reason for Visit Reason Comments RECHECK Encounter Details Date Type Department Care Team Description 03/20/2003 Office Visit [facility] Lisa Velazquezy [facility] H YPERTENSION Physicians MD Bob (Primary Dx) [id number] [place] [id number] (Wo rk) Social History Tobacco Use Types Packs/Day Years Used Date Smoking Tobacco: Former Cigarettes Quit : 02/06/1984 Alcohol Use Standard Drinks/Week Comments Yes 1.7 (1 standard drink = 0.6 oz pure alco hol) Sex Assigned at Date Recorded Male 01/15/2018 11:39 PM 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 documented as of this encounter Last Filed Vital Signs Vital Sign Reading Time Taken Comments Blood Pressure 114/70 03/20/2003 10:15 AM 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 Pulse - - Temperature 36.2 ??C (97.1 ??F) 03/20/2003 10:15 AM 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 Respiratory Rate - - Oxygen Saturation - - Inhaled Oxygen Concentration - - Weight 88 kg (194 lb) 03/20/2003 10:15 AM 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 Height - - Body Mass Index 27.06 12/30/2002 9:00 AM 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 documented in this encounter Progress Notes 03/20/2003 10:15 AM 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 Patientis here for a recheck on his [...] Nursing Notes 03/20/2003 10:15 AM CST >> ONIEL BARRIOS 03/20/2003 10:25 am Patientis here for a [...] Workers Relationship Specialty Start Date End Date Nasir Velazquez MD PCP - General 02/18/99 10/06/13 [facility] [address] [place] [address] documented as of this encounter
--- OUTSIDE RECORDS SUMMARY | 2021-12-08 09:42 | XMS_ITS | Encounter Summary ---
:1945 Author Organization [place] Address [address] [place] [address] Care Team Providers Name Role Phone Nasir Velazquez MD Primary Care Provider [phone] Reason for Referral - Closed Specialty Diagnoses / Procedures Referred By Contact Refer red To Contact Diagnoses Cervicalgia Diogo Velazquez MD [id number] [place], [place] [address] Referral ID Status Reason Start Date Expiration Date Visits Requ ested Visits Authorized [id number] Closed 01/08/2004 02/04/2011 1 1 ET ADJUSTER Reason for Visit Reason Comments Foot Problems Medication Request renew meds Encounter Details Date Type Department Care Team Description 01/08/2004 Office Visit [facility] Diogo Velazquez CERVICAL SARAHI (Primary Dx); Clinic Candy Rojas MD MIXED HYPERLIPIDEMIA ; [address] [facility] [id number] [facility] CATERPILLAR TRACTOR OPERATOR USE MEDI CATN; [place], [place] AV BENIGN HYPERTENSION; [address] [place], [place] ESOPHAGEAL REFLUX ; [phone] [id number] HYPERTROPHY of PROSTATE ; [phone] PAIN IN Rt Foot (Work) Social History Tobacco Use Types Packs/Day Years Used Date Smoking Tobacco: Former Cigarettes Quit : 02/06/1984 Alcohol Use Standard Drinks/Week Comments Yes 1.7 (1 standard drink = 0.6 oz pure alco hol) Sex Assigned at Date Recorded Male 01/15/2018 11:39 PM 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 documented as of this encounter Last Filed Vital Signs Vital Sign Reading Time Taken Comments Blood Pressure 131/80 01/08/2004 11:11 AM TAPPET ADJUSTER Pulse 56 01/08/2004 11:11 AM TAPPET ADJUSTER Temperature 36.6 ??C (97.8 ??F) 01/08/2004 11:11 AM TAPPET ADJUSTER Respiratory Rate - - Oxygen Saturation - - Inhaled Oxygen Concentration - - Weight 86.6 kg (191 lb) 01/08/2004 11:11 AM TAPPET ADJUSTER Height 177.8 cm (5' 10) 01/08/2004 11:11 AM TAPPET ADJUSTER Body Mass Index 27.41 01/08/2004 11:11 AM TAPPET ADJUSTER documented in this encounter Progress Notes 01/08/2004 11:00 AM TAPPET ADJUSTER SUBJECTIVE: Lo Evan Neumann, a 58 year old male scheduled [...] I sent the Rxs to the pharmacies ([facility] ) [phone] ESOPHAGEAL REFLUX Note: Doing well [...] Results Name Type Priority Associated Diagnoses Date/Ti ca X-RAY CERV SPINE 2 OR 3 Imaging Routine Cervicalgia 04/2003 12:06 PM TAPPET ADJUSTER VIEW documented as of this encounter Procedures Procedure Name Priority Date/Time Associated Diagnosis Comme nts Z SOTO PT AND HAND Routine 01/27/2004 Cervicalgia REFERRAL HC X-RAY FOOT Routine 01/08/2004 12:39 PAIN IN Rt Foot Results for this COMPLETE >=3 VIEWS PM TAPPET ADJUSTER procedure are in the results section. HCL ALT Routine 01/08/2004 11:48 MIXED HYPERLIPI DEMIA Results for this AM TAPPET ADJUSTER [facility] Use proc edure are in Medicatn the results section. CL AFF A.M.A. Routine 01/08/2004 11:48 MIXED HYPERLIPI DEMIA Results for this LIPID PANEL AM TAPPET ADJUSTER [facility] Use proc edure are in Medicatn the results section. documented in this encounter Results CONSULT SOTO (PT & CHIRO) (01/27/2004) Narrative This result has an attachment that is no t available. Diogo Velazquez MD REFERRAL X-RAY FOOT 3+ VW (01/08/2004 12:39 PM TAPPET ADJUSTER) Anatomical Region Laterality Modality Other Specimen (Source) Anatomical Collection Method Collection Time Re ceived Time Location / / Volume Laterality 01/08/2004 12:39 PM TAPPET ADJUSTER Impressions 01/08/2004 12:39 PM TAPPET ADJUSTER REPORT OF OUTSIDE FILMS FROM [facility] NEUMANN : ??45 THREE-VIEW RIGHT FOOT: [...] ALANINE AMINO (ALT) (SGPT) (01/08/2004 11:48 AM TAPPET ADJUSTER) P athologist Signature ALT 59 0 - 70 U/L [facility] Specimen Anatomical Collection Method Collection Time Receive d Time (Source) Location / / Volume Laterality 01/08/2004 11:48 01/08/2004 AM TAPPET ADJUSTER 11:49 AM TAPPET ADJUSTER Diogo Velazquez MD LABORATORY Performing Organization Address City/State/ZIP Code Phon e Number [facility] [address] [place] [address] [facility] A.M.A. LIPID PANEL (01/08/2004 11:48 AM TAPPET ADJUSTER) athologist Signature Cholesterol 192 <200 mg/dL [facility] Comment: Cholesterol Reference Range: <200 ??The NCEP recommends further ? evaluation of: ? 1. ??Patients with cholesterol ? greater than 200 mg/dL ? if additional risk facto rs ? are present. ? 2. ??All patients with a ? cholesterol greater than ? 240 mg/dL. Triglycerides 93 <150 mg/dL [facility] HDL Cholesterol 57 >40 mg/dL [facility] LDL Cholesterol Calculated 116 0 - 129 mg/dL [facility] VLDL-Cholesterol 19 0 - 30 mg/dL [facility] Cholesterol/HDL Ratio 3.4 0.0 - 5.0 [facility] Specimen Anatomical Collection Method Collection Time Receive d Time (Source) Location / / Volume Laterality 01/08/2004 11:48 01/08/2004 AM TAPPET ADJUSTER 11:49 AM TAPPET ADJUSTER Diogo Velazquez MD LABORATORY Performing Organization Address City/State/ZIP Code Phon e Number [id number] [place] [address] [facility] documented in this encounter Visit Diagnoses Diagnosis Cervicalgia - Primary MIXED HYPERLIPIDEMIA Mixed hyperlipidemia Encounter for long-term (current) use of other medications Essential hypertension, benign ESOPHAGEAL REFLUX Esophageal reflux HYPERTROPHY of PROSTATE Hypertrophy of prostate without urinary obstruction and other lower urinary tract symptoms (LUTS) PAIN IN Rt Foot Pain in limb documented in this encounter Care Teams Change Director Relationship Specialty Start Date End Date Nasir Velazquez MD PCP - General 02/18/99 10/06/13 [facility] [address] [place] [address] documented as of this encounter
--- OUTSIDE RECORDS SUMMARY | 2021-12-08 09:42 | XMS_ITS | Encounter Summary ---
:1945 Author Organization [place] Address [address] [facility] [place] [address] Care Team Providers Name Role Phone Nasir Velazquez MD Primary Care Provider [phone] Encounter Details Date Type Department Care Team Description 03/07/2003 Office Visit [facility] Diogo Velazquez BENIGN H YPERTENSION Physicians MD Bob (Primary Dx) [id number] [place] [address] [address] [place] [address] [phone] (Wo rk) Social History Tobacco Use Types Packs/Day Years Used Date Smoking Tobacco: Former Cigarettes Quit : 02/06/1984 Alcohol Use Standard Drinks/Week Comments Yes 1.7 (1 standard drink = 0.6 oz pure alco hol) Sex Assigned at Date Recorded Male 01/15/2018 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 documented as of this encounter Last Filed Vital Signs Vital Sign Reading Time Taken Comments Blood Pressure 122/70 03/07/2003 10:00 AM COMPUTER SUPPORT SPECIALIST Pulse - - Temperature - - Respiratory Rate - - Oxygen Saturation - - Inhaled Oxygen Concentration - - Weight - - Height - - Body Mass Index - - documented in this encounter Plan of Treatment Not on filedocumented as of this encounter Visit Diagnoses Diagnosis Essential hypertension, benign - Primary documented in this encounter Care Teams Supervisor Nutritional Yeast Relationship Specialty Start Date End Date Nasir Velazquez MD PCP - General 02/18/99 10/06/13 [facility] [address] [place] [address] documented as of this encounter
--- OUTSIDE RECORDS SUMMARY | 2021-12-08 09:42 | XMS_ITS | Encounter Summary ---
:1945 Author Organization [place] Address [address] [facility] [place] [address] Care Team Providers Name Role Phone Nasir Velazquez MD Primary Care Provider [phone] Reason for Visit Reason Comments RECHECK Recheck lungs Encounter Details Date Type Department Care Team Description 06/25/2006 Office Visit [facility] Nasir Velazquez OTHER LUNG DISEASE Clinic Grygla MD Geraldo NEC (Primary Dx) [address] [place], [place] CLINIC [address] [address] [facility] [phone] [place] [address] (Wo rk) Social History Tobacco Use Types Packs/Day Years Used Date Smoking Tobacco: Former Cigarettes Quit : 02/06/1984 Alcohol Use Standard Drinks/Week Comments Yes 1.7 (1 standard drink = 0.6 oz pure alco hol) socially Sex Assigned at Date Recorded Male 01/15/2018 11:39 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
--- OUTSIDE RECORDS SUMMARY | 2021-12-08 09:42 | XMS_ITS | Encounter Summary ---
:1945 Author Organization [place] Address [address] [facility] [place] [address] Care Team Providers Name Role Phone Nasir Velazquez MD Primary Care Provider [phone] Encounter Details Date Type Department Care Team Description 02/15/2005 Medical Correspondence [facility] Lisa Velazquez [facility] [place] [id number] [place], [place] [address] [address] [place], [place] [phone] [address] (Wo rk) Social History Tobacco Use Types Packs/Day Years Used Date Smoking Tobacco: Former Cigarettes Quit : 02/06/1984 Alcohol Use Standard Drinks/Week Comments Yes 1.7 (1 standard drink = 0.6 oz pure alco hol) socially Sex Assigned at Date Recorded Male 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 [address] [place] [address] documented as of this encounter
--- OUTSIDE RECORDS SUMMARY | 2021-12-08 09:42 | XMS_ITS | Encounter Summary ---
:1945 Author Organization [place] Address [address] [facility] [place] [address] Care Team Providers Name Role Phone Nasir Velazquez MD Primary Care Provider [phone] Raghavendra Deras MD Primary Care Provider Unavailable Encounter Details Date Type Department Care Team Description 01/09/[address] 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 documented as of this encounter Plan of Treatment Not on filedocumented as of this encounter Procedures Procedure Name Priority Date/Time Associated Diagnosis Comme nts ECHO CARDIAC - HIM SCAN 01/09/2003 12:00 AM NARCOTICS AND VICE DETECTIVE - ARCHIVE documented in this encounter Results ECHO CARDIAC - HIM SCAN - ARCHIVE (01/09/2003 12:00 AM NARCOTICS AND VICE DETECTIVE) Anatomical Region Laterality Modality Echocardiography Specimen (Source) Anatomical Location Collection Method / Collectio n Time Received Time / Laterality Volume 01/09/2003 Narrative This result has an attachment that is no t available. Provider Scan CV ECHO ORDERABLES documented in this encounter Visit Diagnoses Not on filedocumented in this encounter Care Teams Vacation Planner Relationship Specialty Start Date End Date Nasir Velazquez MD PCP - General 02/18/99 10/06/13 [facility] [address] [place] [address] Raghavendra Deras MD PCP - General Family Practice 10/07/13 documented as of this encounter
--- OUTSIDE RECORDS SUMMARY | 2021-12-08 09:42 | XMS_ITS | Encounter Summary ---
:1945 Author Organization [place] Address [address] [place] [address] Care Team Providers Name Role Phone Nasir Nicole MD Primary Care Provider [phone] Reason for Visit Reason Onset Date Comments X-ray Results 02/02/2004 Encounter Details Date Type Department Care Team Description 01/18/2004 Telephone [facility] Fabricio Nicole MD X-ray Results [place] [address] 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 >> FABRICIO Zuñiga Feb 02, 2004 11:04 AM Let him know that it showed stable, chronic findings. One vertabrae was slightly shifted forward, as pointed out when he was at the clinic. (PS- did you tell him I was going to be out of town for tw o weeks when he called?) >> ZACH HAMILTON [facility] Jan 18, 2004 11:40 AM Staff Message copied by ZACH HAMILTON on 01/18/2004 at 11:40 AM ------ Message from: YUAN JIMENEZ Created: 01/18/2004 at 11:16 AM Regarding: Dr Felicity Nicole xray results nc This patient would like a call back. He wanted to know what his neck xray showed.? Patient can be reached at [phone] thanks documented in this encounter Plan of Treatment Not on filedocumented as of this encounter Visit Diagnoses Not on filedocumented in this encounter Care Teams Grinder Lap Relationship Specialty Start Date End Date Nasir Nicole MD PCP - General 02/18/99 10/06/[address] [address] documented as of this encounter
--- OUTSIDE RECORDS SUMMARY | 2021-12-08 09:42 | XMS_ITS | Encounter Summary ---
:1945 Author Organization [place] Address [address] [facility] [place] [place] [address] Care Team Providers Name Role Phone Nasir Velazquez MD Primary Care Provider [phone] Reason for Referral - Closed Specialty Diagnoses / Procedures Referred By Contact Refer red To Contact Diagnoses Other chronic sinusitis Nasir Velazquez MD [facility] [address] [place], [place] [address] Referral ID Status Reason Start Date Expiration Date Visits Requ ested Visits Authorized [id number] Closed 04/02/2006 02/04/2011 1 1 ER PLATE PRINTER Reason for Visit Reason Comments RECHECK follow up for cough, cough i s about the same, no sharp pain in chest now, had stress test last week, follo w up too on BMT test. 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 documented as of this encounter Last Filed Vital Signs Vital Sign Reading Time Taken Comments Blood Pressure 108/72 04/02/2006 3:15 PM COPPER PLATE PRINTER Pulse 63 04/02/2006 3:15 PM COPPER PLATE PRINTER Temperature 37.6 ??C (99.6 ??F) 04/02/2006 3:15 PM COPPER PLATE PRINTER Respiratory Rate - - Oxygen Saturation 95% 04/02/2006 3:15 PM COPPER PLATE PRINTER Inhaled Oxygen Concentration - - Weight 87.1 kg (192 lb) 04/02/2006 3:15 PM COPPER PLATE PRINTER Height 177.8 cm (5' 10) 04/02/2006 3:15 PM COPPER PLATE PRINTER Body Mass Index 27.55 04/02/2006 3:15 PM COPPER PLATE PRINTER documented in this encounter Progress Notes Nasir [...] minutes counseling patient and/or coordinating care. ER PLATE PRINTER documented in this encounter Nursing Notes 04/02/2006 3:15 PM CST >> [place] GARCIA 04/02/2006 3:30 pm Terry Montero presents for as above. Initial BP 108/72 Pulse 63 Temp (Src) 99.6 (Tympanic) Ht 5' 10 (1.78m) Wt 192 lbs (87.1kg) SaO2 95% Body mass index is 27.55 kg/(m^2).. BP completed using cuff size: regular Alexandria Garcia GOLF COURSE MECHANIC documented in this encounter Plan of Treatment Not on filedocumented as of this encounter Visit Diagnoses Diagnosis Other chronic sinusitis - Primary Cough documented in this encounter Care Teams Fruit Grading Supervisor Relationship Specialty Start Date End Date Nasir Velazquez MD PCP - General 02/18/99 10/06/[address] [address] documented as of this encounter
--- OUTSIDE RECORDS SUMMARY | 2021-12-08 09:42 | XMS_ITS | Encounter Summary ---
:1945 Author Organization [place] Address [facility] [place] [address] Care Team Providers Name Role Phone Nasir Velazquez MD Primary Care Provider [phone] Reason for Visit Reason Onset Date Comments Pain 08/17/2003 Knee Encounter Details Date Type Department Care Team Description 08/17/2003 Telephone [facility] Sharath Nam MD Pain (Knee) Physicians XXX RETIRED XXX [address] [address] [address] [place] [address] [place] [address] [phone] Social History Tobacco Use Types Packs/Day Years Used Date Smoking Tobacco: Former Cigarettes Quit : 02/06/1984 Alcohol Use Standard Drinks/Week Comments Yes 1.7 (1 standard drink = 0.6 oz pure alco hol) Sex Assigned at Date Recorded Male 01/15/2018 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 >> ONIEL TEJEDAPER Mon Aug 17, 2003 8:32 AM Patient [...] on filedocumented in this encounter Care Teams Radiology Equipment Servicer Relationship Specialty Start Date End Date Nasir Velazquez MD PCP - General 02/18/99 10/06/13 [facility] [address] [place] [address] documented as of this encounter
--- OUTSIDE RECORDS SUMMARY | 2021-12-08 09:42 | XMS_ITS | Encounter Summary ---
:1945 Author Organization [place] Address [facility] [place] [address] Care Team Providers Name Role Phone Nasir Velazquez MD Primary Care Provider [phone] Reason for Visit Reason Comments URI Encounter Details Date Type Department Care Team Description 06/09/2003 Office Visit [facility] Tony Pastor ACUTE MAXILLARY SINUSITIS (Primary Dx); Shantel Farley MD BENIGN HYPERTENSION; [address] MIXED HYPERLIPIDEMIA [address] [place] [address] Social History Tobacco Use Types Packs/Day Years Used Date Smoking Tobacco: Former Cigarettes Quit : 02/06/1984 Alcohol Use Standard Drinks/Week Comments Yes 1.7 (1 standard drink = 0.6 oz pure alco hol) Sex Assigned at Date Recorded Male 01/15/2018 11:39 PM 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
--- OUTSIDE RECORDS SUMMARY | 2021-12-08 09:42 | XMS_ITS | Encounter Summary ---
:1945 Author Organization [place] Address [address] [facility] [place] [address] Care Team Providers Name Role Phone Nasir Velazquez MD Primary Care Provider [phone] Reason for Visit Reason Comments Medication Request lipitor Foot Problems f/u on foot pain Encounter Details Date Type Department Care Team Description 08/05/2004 Office Visit [facility] Diogo Velazquez BENIGN H YPERTENSION; Clinic [place] MD Bob MIXED HYPERLIPIDEMIA; [address] [facility] [address] [place] LIPOMA SKIN- trunk & legs; [place], [place] [address] JOINT PAIN-Foot & anterior ankle [address] [place], [place] [phone] [address] (Wo rk) Social History Tobacco Use Types Packs/Day Years Used Date Smoking Tobacco: Former Cigarettes Quit : 02/06/1984 Alcohol Use Standard Drinks/Week Comments Yes 1.7 (1 standard drink = 0.6 oz pure alco hol) socially Sex Assigned at Date Recorded Male 01/15/2018 11:39 PM 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 After the news stories about Hulrey II drugs, he stopped after a few [...] A.M.A. COMPREHENSIVE MET.PANEL (08/05/2004 11:51 AM CDT) P athologist Signature Sodium 144 133 - 144 [place] mmol/L [facility] Potassium 3.7 3.4 - 5.3 [place] mmol/L [facility] Chloride 102 94 - 109 [place] mmol/L [facility] Carbon Dioxide 29 20 - 32 [place] mmol/L [facility] Anion Gap 12 6 - 17 [place] mmol/L [facility] Glucose 102 60 - 110 [facility] mg/dL [facility] Urea Nitrogen 14 7 - 30 [place] mg/dL [facility] Creatinine 1.10 0.80 - [place] 1.50 mg/dL [facility] GFR Estimate 73 >60 [place] mL/min/1.7 [facility] m2 LAB GFR Estimate If >80 >60 [facility] Black mL/min/1.7 [facility] m2 LAB Calcium 9.7 8.5 - 10.4 [place] mg/dL [facility] Bilirubin Total 0.8 0.2 - 1.3 [place] mg/dL [facility] Albumin 4.3 3.2 - 4.5 [place] g/dL [facility] Protein Total 7.9 6.0 - 8.2 [place] g/dL [facility] Alkaline 114 40 - 150 [facility] Phosphatase U/L [facility] ALT 39 0 - 70 U/L [facility] AST 31 0 - 55 U/L [facility] Specimen Anatomical Collection Method Collection Time Receive d Time (Source) Location / / Volume Laterality 08/05/2004 11:51 08/05/2004 AM CDT 11:52 AM CDT Diogo Velazquez MD LABORATORY Performing Organization Address City/State/ZIP Code Phon e Number [facility] [address] [place] [address] [facility] (ABNORMAL) A.M.A. LIPID PANEL (08/05/2004 11:51 AM CDT) athologist Signature Cholesterol 145 0 - 200 [facility] mg/dL [facility] Comment: Cholesterol Reference Range: <200 ??The NCEP recommends further ? evaluation of: ? 1. ??Patients with cholesterol ? greater than 200 mg/dL ? if additional risk facto rs ? are present. ? 2. ??All patients with a ? cholesterol greater than ? 240 mg/dL. Triglycerides 224 (H) 0 - 150 mg/dL [facility] HDL Cholesterol 38 (L) >40 mg/dL [facility] LDL Cholesterol Calculated 63 0 - 129 mg/dL [facility] VLDL-Cholesterol 45 (H) 0 - 30 mg/dL [facility] Cholesterol/HDL Ratio 3.9 0.0 - 5.0 [facility] Specimen Anatomical Collection Method Collection Time Receive d Time (Source) Location / / Volume Laterality 08/05/2004 11:51 08/05/2004 AM CDT 11:52 AM CDT Diogo Velazquez MD LABORATORY Performing Organization Address City/State/ZIP Code Phon e Number [facility] [address] [place] [address] [facility] documented in this encounter Visit Diagnoses Diagnosis Essential hypertension, benign Mixed hyperlipidemia LIPOMA SKIN- trunk & legs Lipoma of other skin and subcutaneous ti ssue JOINT PAIN-Foot & anterior ankle Pain in joint, ankle and foot documented in this encounter Care Teams Rn First Assistant Relationship Specialty Start Date End Date Nasir Velazquez MD PCP - General 02/18/99 10/06/13 [facility] [address] [place] [address] documented as of this encounter
--- OUTSIDE RECORDS SUMMARY | 2021-12-08 09:42 | XMS_ITS | Encounter Summary ---
:1945 Author Organization [place] Address [address] [facility] [place] [address] Care Team Providers Name Role Phone Nasir Velazquez MD Primary Care Provider [phone] Reason for Visit Reason Comments RECHECK F/U FROM LAB WORK Encounter Details Date Type Department Care Team Description 09/12/2005 Office Visit [facility] Nasir Velazquez HYPERT ROPHY of PROSTATE ; Clinic [place] MD Geraldo BENIGN HYPERTENSION; [address] [facility] MIXED HYPERLIPIDEMIA; [place], [place] CLINIC ESOPHAGEAL REFLUX [address] [address] [facility] [phone] [place] [address] (Wo rk) Social History Tobacco Use Types Packs/Day Years Used Date Smoking Tobacco: Former Cigarettes Quit : 02/06/1984 Alcohol Use Standard Drinks/Week Comments Yes 1.7 (1 standard drink = 0.6 oz pure alco hol) socially Sex Assigned at Date Recorded Male 01/15/2018 11:39 PM 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 Initial BP 130/72 Pulse [...] reflux documented in this encounter Care Teams Merchandise Distributor Relationship Specialty Start Date End Date Nasir Velazquez MD PCP - General 02/18/99 10/06/[address] [address] documented as of this encounter
--- OUTSIDE RECORDS SUMMARY | 2021-12-08 09:42 | XMS_ITS | Encounter Summary ---
:1945 Author Organization [place] Address [facility] [place] [address] Care Team Providers Name Role Phone Scottie Velazquez MD Primary Care Provider [phone] Reason for Visit Reason Onset Date Comments Orders 01/08/2007 SEE NOTE Encounter Details Date Type Department Care Team Description 01/08/2007 Telephone [facility] Scottie Velazquez Orders (SEE NOTE) [place] [address] [place] [address] [facility] [phone] [place] [address] (Wo rk) Social History Tobacco Use Types Packs/Day Years Used Date Smoking Tobacco: Former Cigarettes Quit : 02/06/1984 Alcohol Use Standard Drinks/Week Comments Yes 1.7 (1 standard drink = 0.6 oz pure alco hol) socially Sex Assigned at Date Recorded Male 01/15/2018 11:39 PM WATCH DIAL STONER documented as of this encounter Miscellaneous Notes Telephone Encounter - Tonie Chan - 01/10/2007 3:03 PM CST Done. H DIAL STONER Telephone Encounter - Marlene Carreno - 01/10/2007 1:04 PM CST Done, let pt know Marlene Carreno MD H DIAL STONER Telephone Encounter - Phoenix Dubois - 01/08/2007 4:57 PM CST Staff Message copied by PHOENIX DUBOIS on 01/08/2007 at 4:57 PM ------ Message from: EDYTA MUNSON Created: 01/08/2007 at 3:21 PM Regarding: Phone Message/[place] Contact: Carlos would like to get a CT for his chest. He can be reached at [phone] till 2:00pm. After 2:00pm his cell [phone].WILL SEND MESSAGE TO MARLENE AND SCOTTIE SINCE SCOTTIE IS OFF THE NEXT [address] 12-4@3:22pm H DIAL STONER documented in this encounter Plan of Treatment Not on filedocumented as of this encounter Procedures Procedure Name Priority Date/Time Associated Diagnosis Comme nts HC CT THORAX W/O Routine 01/14/2007 11:26 AM Other diseases of Results for this CONT WATCH DIAL STONER lung, not elsewhere procedur e are in classified the results section. documented in this encounter Results CT SCAN CHEST (01/14/2007 11:26 AM WATCH DIAL STONER) Anatomical Region Laterality Modality Other Specimen (Source) Anatomical Collection Method Collection Time Re ceived Time Location / / Volume Laterality 01/14/2007 11:26 AM WATCH DIAL STONER Impressions 01/14/2007 1:30 PM WATCH DIAL STONER EXAM: ??CT CHEST FOR NODULE ??Jan 14 11:26:00 AM HISTORY: ??Followup pulmonary nodule. TECHNIQUE: ??Scans obtained from the [facility] through the diaphragm without IV contrast. [...] Primary documented in this encounter Care Teams Block Cleaner Relationship Specialty Start Date End Date Scottie Velazquez MD PCP - General 02/18/99 10/06/13 [facility] [address] [place] [address] documented as of this encounter
--- OUTSIDE RECORDS SUMMARY | 2021-12-08 09:42 | XMS_ITS | Encounter Summary ---
:1945 Author Organization [place] Address [address] [facility] [place] [address] Care Team Providers Name Role Phone Nasir Velazquez MD Primary Care Provider [phone] Reason for Visit Reason Comments Blood Draw Encounter Details Date Type Department Care Team Description 03/12/2006 Orders [facility] MIX ED HYPERLIPIDEMIA [facility] [address] [place] [address] Social History Tobacco Use Types Packs/Day Years Used Date Smoking Tobacco: Former Cigarettes Quit : 02/06/1984 Alcohol Use Standard Drinks/Week Comments Yes 1.7 (1 standard drink = 0.6 oz pure alco hol) socially Sex Assigned at Date Recorded Male 01/15/2018 11:39 PM 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 CL AFF A.M.A. LIPID Routine 03/12/2006 9:55 AM Mixed Hyperlipi demia Results for this PANEL PEDIATRIC SPEECH THERAPIST procedure are i n the results section. documented in this encounter Results ALANINE AMINO (ALT) (SGPT) (03/12/2006 9:55 AM PEDIATRIC SPEECH THERAPIST) athologist Signature ALT 49 0 - 70 U/L [facility] Specimen Anatomical Collection Method Collection Time Receive d Time (Source) Location / / Volume Laterality 03/12/2006 9:55 AM 7 9:56 PEDIATRIC SPEECH THERAPIST AM PEDIATRIC SPEECH THERAPIST Nasir Velazquez MD LABORATORY Performing Organization Address City/[facility]/ZIP Code Phon e Number [facility] [address] [place] [address] [phone] [facility] (ABNORMAL) A.M.A. LIPID PANEL (03/12/2006 9:55 AM PEDIATRIC SPEECH THERAPIST) athologist Signature Cholesterol 161 0 - 200 [facility] mg/dL CLINIC LAB Comment: LDL Cholesterol [...] Triglycerides 228 (H) 0 - 150 mg/dL [facility] HDL Cholesterol 39 (L) 40 - 110 mg/dL [facility] LDL Cholesterol Calculated 77 0 - 129 mg/dL [facility] Comment: LDL Cholesterol is the primary guide to therapy: LDL-cholesterol goal in high risk patients is <100 mg/dL and in very high risk patients is <70 mg/dL. VLDL-Cholesterol 46 (H) 0 - 30 mg/dL [facility] Cholesterol/HDL Ratio 4.2 0.0 - 5.0 [facility] Specimen Anatomical Collection Method Collection Time Receive d Time (Source) Location / / Volume Laterality 03/12/2006 9:55 AM 7 9:56 PEDIATRIC SPEECH THERAPIST AM PEDIATRIC SPEECH THERAPIST Nasir Velazquez MD LABORATORY Performing Organization Address City/[facility]/ZIP Code Phon e Number [address] [address] [phone] [facility] documented in this encounter Visit Diagnoses Diagnosis Mixed hyperlipidemia documented in this encounter Care Teams Enrichment Teacher Relationship Specialty Start Date End Date Nasir Velazquez MD PCP - General 02/18/99 10/06/13 [facility] [address] [place] [address] documented as of this encounter
--- OUTSIDE RECORDS SUMMARY | 2021-12-08 09:42 | XMS_ITS | Encounter Summary ---
:1945 Author Organization [place] Address [facility] [place] [address] Care Team Providers Name Role Phone Nasir Velazquez MD Primary Care Provider [phone] Reason for Visit Reason Onset Date Comments Refill Request 08/21/2003 Encounter Details Date Type Department Care Team Description 08/21/2003 Refill [facility] TanaDillan fox MD Refill Request Physicians XXX RETIRED XXX [address] [address] [address] [address] [address] [place] [address] [place], [place] [phone] [phone] Social History Tobacco Use Types Packs/Day Years Used Date Smoking Tobacco: Former Cigarettes Quit : 02/06/1984 Alcohol Use Standard Drinks/Week Comments Yes 1.7 (1 standard drink = 0.6 oz pure alco hol) Sex Assigned at Date Recorded Male 01/15/2018 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 called [facility] where his Rx faxed. It been faxed to [facility]. documented in this encounter Plan of Treatment Not on filedocumented as of this encounter Visit Diagnoses Not on filedocumented in this encounter Care Teams Site Identification Specialist Relationship Specialty Start Date End Date Nasir Velazquez MD PCP - General 02/18/99 10/06/13 [address] [place] [address] documented as of this encounter
--- OUTSIDE RECORDS SUMMARY | 2021-12-08 09:42 | XMS_ITS | Encounter Summary ---
:1945 Author Organization [place] Address [address] [facility] [place] [address] Care Team Providers Name Role Phone Nasir Velazquez MD Primary Care Provider [phone] Raghavendra Deras MD Primary Care Provider Unavailable Encounter Details Date Type Department Care Team Description 03/21/2006 Historic Results [facility] Unknown, 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 Provider Scan CV ECHO ORDERABLES documented in this encounter Visit Diagnoses Not on filedocumented in this encounter Care Teams Heavy Equipment Rental Associate Relationship Specialty Start Date End Date Nasir Velazquez MD PCP - General 02/18/99 10/06/13 [facility] [address] [place] [address] Raghavendra Deras MD PCP - General Family Practice 10/07/13 documented as of this encounter
--- OUTSIDE RECORDS SUMMARY | 2021-12-08 09:42 | XMS_ITS | Encounter Summary ---
:1945 Author Organization [place] Address [address] [facility] [place] [address] Care Team Providers Name Role Phone Nasir Nicole MD Primary Care Provider Reason for Visit Reason Onset Date Comments Lab Result Notice 01/15/2004 x ray Encounter Details Date Type Department Care Team Description 01/15/2004 Telephone [facility] Nasir Nicole Lab Re sult Notice (x [facility] [place] MD Geraldo ray) [address] [place] [address] [place] [phone] [facility] [phone] [place] [address] (Wo rk) Social History Tobacco Use Types Packs/Day Years Used Date Smoking Tobacco: Former Cigarettes Quit : 02/06/1984 Alcohol Use Standard Drinks/Week Comments Yes 1.7 (1 standard drink = 0.6 oz pure alco hol) Sex Assigned at Date Recorded Male 01/15/2018 11:39 PM 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 No significant disease seen related to his complaints. >> ANIYA ARCE SunJan 15, 2004 11:56 AM SAB, what would you like us to tell the pt? Aniya Arce CMA >> ANIYA ARCE SunJan 15, 2004 11:54 AM Staff Message copied by ANIYA ACRE on 01/15/2004 at 11:54 AM ------ Message from: EDYTA MUNSON Created: 01/15/2004 at 11:45 AM Regarding: Phone Message Contact: Terry saw Dr Skye Nicole on 01-07. He would like to know the result's of his X- ray's. Please call Terry at [phone] 01-14@11:30a.m. documented in this encounter Plan of Treatment Not on filedocumented as of this encounter Visit Diagnoses Not on filedocumented in this encounter Care Teams Tax Accountant Relationship Specialty Start Date End Date Nasir Nicole MD PCP - General 02/18/99 10/06/13 [facility] [address] [place] [address] documented as of this encounter
--- OUTSIDE RECORDS SUMMARY | 2021-12-08 09:42 | XMS_ITS | Encounter Summary ---
:1945 Author Organization [place] Address [address] [facility] [place] [address] Care Team Providers Name Role Phone Nasir Velazquez MD Primary Care Provider Reason for Referral - Closed Specialty Diagnoses / Procedures Referred By Contact Refer red To Contact Diagnoses Chest pain, unspecified Nasir Vel[facility]quez [facility] [address] [place], [place] [address] Referral ID Status Reason Start Date Expiration Date Visits Requ ested Visits Authorized [id number] Closed 03/18/2006 02/04/2011 1 1 T COORDINATOR Reason for Visit Reason Comments RECHECK lab f/u Pain pt complains of chest pain a dull ache left rib area Refill Request Sinus Problem sinus BARONE x 1 month Encounter Details Date Type Department Care Team Description 03/14/2006 Office Visit [facility] Nasir Velazquez HYPERT ROPHY of PROSTATE ; Clinic Candy Chow MD MIXED HYPERLIPIDEMIA; [address] [facility] ESOPHAGEAL REFLUX ; [place], [place] CLINIC CHEST PAIN NOS [phone] [address] [facility] [phone] [place] [address] (Wo rk) Social History Tobacco Use Types Packs/Day Years Used Date Smoking Tobacco: Former Cigarettes Quit : 02/06/1984 Alcohol Use Standard Drinks/Week Comments Yes 1.7 (1 standard drink = 0.6 oz pure alco hol) socially Sex Assigned at Date Recorded Male 01/15/2018 11:39 PM SHIFT 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 documented as of this encounter Last Filed Vital Signs Vital Sign Reading Time Taken Comments Blood Pressure 120/74 03/14/2006 11:00 AM SHIFT COORDINATOR Pulse 67 03/14/2006 11:00 AM SHIFT COORDINATOR Temperature 36.5 ??C (97.7 ??F) 03/14/2006 11:00 AM SHIFT COORDINATOR Respiratory Rate - - Oxygen Saturation 97% 03/14/2006 11:00 AM SHIFT COORDINATOR Inhaled Oxygen Concentration - - Weight 84.8 kg (187 lb) 03/14/2006 11:00 AM SHIFT COORDINATOR Height 177.8 cm (5' 10) 03/14/2006 11:00 AM SHIFT COORDINATOR Body Mass Index 26.83 03/14/2006 11:00 AM SHIFT COORDINATOR documented in this encounter Progress Notes [...] NOS Note: Plan: ELECTROCARDIOGRAM, COMP W/READ, CONSULT [facility] chest pain not typical angina, but given his heart risk factors, recurrent symptoms, and lack of other obvious explanation, I feel it is worthwhile to continue workup with a stress echocardiogram. Planfor the test to be performed sometime within the next few weeks. follow up after results return. Spent greater than 50% of 30 minutes counseling patient and/or coordinating care. T COORDINATOR documented in this encounter Nursing Notes 03/14/2006 11:00 AM CST >> PHOENIX DUBOIS 03/14/2006 11:09 am Terry Montero presents for as above. Initial BP 120/74 Pulse 67 Temp (Src) 97.7 (Tympanic) Ht 5' 10 (1.78m) Wt 187 lbs (84.8kg) SaO2 97% Body mass index is 26.83 kg/(m^2).. BP completed using cuff size: regular Phoenix Dbuois SOFTWARE DESIGN ENGINEER documented in this encounter Plan of Treatment Not on filedocumented as of this encounter Procedures Procedure Name Priority Date/Time Associated Diagnosis Comme [facility] Z ELECTROCARDIOGRAM, Routine 03/14/2006 11:47 AM SHIFT COORDINATOR Chest P ain Nos COMP W/READ documented in this encounter Results ELECTROCARDIOGRAM, COMP W/READ (03/14/2006 11:47 AM SHIFT COORDINATOR) Narrative This result has an attachment that is no t available. Nasir Velazquez MD EKG TECHNICAL documented in this encounter Visit Diagnoses Diagnosis HYPERTROPHY of PROSTATE Hypertrophy of prostate without urinary obstruction and other lower urinary tract symptoms (LUTS) Mixed hyperlipidemia ESOPHAGEAL REFLUX Esophageal reflux Chest pain, unspecified documented in this encounter Care Teams Shook Splicer Relationship Specialty Start Date End Date Nasir Velazquez MD PCP - General 02/18/99 10/06/13 [address] [place] [address] documented as of this encounter
--- OUTSIDE RECORDS SUMMARY | 2021-12-08 09:42 | XMS_ITS | Encounter Summary ---
:1945 Author Organization [place] Address [address] [facility] [place] [address] Care Team Providers Name Role Phone Nasir Velazquez MD Primary Care Provider [phone] Reason for Visit Reason Comments Physical pt is fasting. review last w ee chest x-rays Encounter Details Date Type Department Care Team Description 07/04/2006 Office Visit [facility] Nasir Velazquez E MEDICAL EXAM (Primary Dx); Clinic Candy Chow MD OTHER LUNG DISEASE NEC; [address] [facility] BENIGN HYPERTENSION; [place], [place] CLINIC MIXED HYPERLIPIDEMIA [address] [address] [facility] [phone] [place] [address] Social History Tobacco Use Types Packs/Day Years Used Date Smoking Tobacco: Former Cigarettes Quit : 02/06/1984 Alcohol Use Standard Drinks/Week Comments Yes 1.7 (1 standard drink = 0.6 oz pure alco hol) socially Sex Assigned at Date Recorded Male 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 [employer] Social History Main Topics ??? Tobacco Use: [...] in old age ??? C.A.D. Maternal Uncle [place] ??? [place] Maternal Uncle ??? Prostatic [...] completed using cuff size: regular Phoenix Dubois LAMP MECHANIC documented in this encounter Plan of [...] Signature PSA 0.46 0 - 4 ug/L [facility] Specimen Anatomical Collection Method Collection Time Receive d Time (Source) Location / / Volume Laterality 07/04/2006 11:50 07/04/2006 AM CDT 11:52 AM CDT Nasir Velazquez MD LABORATORY Performing Organization Address City/State/ZIP Code Phon e Number [facility] [address] [place] [address] [facility] (ABNORMAL) A.M.A. BASIC METABOLIC PANEL (07/04/2006 11:50 AM CDT) P athologist Signature Sodium 143 133 - 144 [place] mmol/L [facility] Potassium 4.2 3.4 - 5.3 [place] mmol/L [facility] Chloride 101 94 - 109 [place] mmol/L [facility] Carbon Dioxide 31 20 - 32 [place] mmol/L [facility] Anion Gap 11 6 - 17 [place] mmol/L [facility] Glucose 100 (H) 60 - 99 [place] mg/dL [facility] Urea Nitrogen 16 7 - 30 [place] mg/dL [facility] Creatinine 1.10 0.80 - [place] 1.50 mg/dL [facility] GFR Estimate 72 >60 [place] mL/min/1.7 [facility] m2 LAB GFR Estimate If 88 >60 [place] mL/min/1.7 [facility] m2 LAB Calcium 9.5 8.5 - 10.4 [place] mg/dL [facility] Specimen Anatomical Collection Method Collection Time Receive d Time (Source) Location / / Volume Laterality 07/04/2006 11:50 07/04/2006 AM CDT 11:52 AM CDT Nasir Velazquez MD LABORATORY Performing Organization Address City/State/ZIP Code Phon e Number [address] [address] [facility] documented in this encounter Visit Diagnoses Diagnosis Routine general medical examination at a health care facility - Primary Other diseases of lung, not elsewhere cl assified Essential hypertension, benign Mixed hyperlipidemia documented in this encounter Care Teams Telephone Station Repairer Relationship Specialty Start Date End Date Nasir Velazquez MD PCP - General 02/18/99 10/06/13 [facility] [address] [place] [address] documented as of this encounter
--- OUTSIDE RECORDS SUMMARY | 2021-12-08 09:42 | XMS_ITS | Encounter Summary ---
:1945 Author Organization [place] Address [address] [facility] [place] [address] Care Team Providers Name Role Phone Nasir Velazquez MD Primary Care Provider [phone] Reason for Visit Reason Onset Date Comments Patient Request 01/27/2005 Encounter Details Date Type Department Care Team Description 01/27/2005 Telephone [facility] Diogo Velazquez MD Patient Request [place] [id number] [facility] [address] [place], [place] [id number] [place] [address] [phone] Social History Tobacco Use Types Packs/Day Years Used Date Smoking Tobacco: Former Cigarettes Quit : 02/06/1984 Alcohol Use Standard Drinks/Week Comments Yes 1.7 (1 standard drink = 0.6 oz pure alco hol) socially Sex Assigned at Date Recorded Male 01/15/2018 11:39 PM ZIG ZAG STITCHER documented as of this encounter Miscellaneous Notes Telephone Encounter - Phoenix Dubois - 01/31/2005 1:15 PM CST Called pt and made a lab only Appt for him.02/01/05 11:00am Phoenix Dubois ZAG STITCHER Telephone Encounter - Diogo Velazquez - 01/28/2005 7:51 PM CST Future orders placed for both lipid panel and Comprehensive metabolic profile to look at his liver function tests, renal function tests, and potassium. ZAG STITCHER Telephone Encounter - Ivone Dubon - 01/27/2005 12:25 PM CST Carlos states that there is no more refills on his RX, would like to come in to have LIPIDS checked before the end of the year (insurance reasons) If OK, please put in future order, and then we can contact pt for lab only appt. Pt can reached at [phone]. Was seen last on 08/05/04. Yashira Dubon CMA ZAG STITCHER documented in this encounter Plan of Treatment Not on filedocumented as of this encounter Visit Diagnoses Diagnosis Mixed hyperlipidemia Essential hypertension, benign documented in this encounter Care Teams Can Line Operator Relationship Specialty Start Date End Date Nasir Velazquez MD PCP - General 02/18/99 10/06/13 [address] [place] [address] documented as of this encounter
--- OUTSIDE RECORDS SUMMARY | 2021-12-08 09:42 | XMS_ITS | Encounter Summary ---
:1945 Author Organization [place] Address [facility] access hospital0 [facility] [place] [address] Care Team Providers Name Role Phone Nasir Velazquez MD Primary Care Provider Reason for Visit Reason Onset Date Comments Refill Request 08/21/2003 Encounter Details Date Type Department Care Team Description 08/21/2003 [facility] Request Physicians XXX RETIRED XXX [address] [address] [address] [address] [place] [address] [place] [address] [phone] Social History Tobacco Use Types Packs/Day Years Used Date Smoking Tobacco: Former Cigarettes Quit : 02/06/1984 Alcohol Use Standard Drinks/Week Comments Yes 1.7 (1 standard drink = 0.6 oz pure alco hol) Sex Assigned at Date Recorded Male 01/15/2018 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 documented as of this encounter Miscellaneous Notes Telephone Encounter - 08/21/2003 3:46 PM CDT >> JIM MELGAR Fri Aug 21, 2003 3:47 PM Pt called with the following: He called pharm and the Rx for Lipitor did not go thru, please refax to [facility] documented in this encounter Plan of Treatment Not on filedocumented as of this encounter Visit Diagnoses Diagnosis MIXED HYPERLIPIDEMIA Mixed hyperlipidemia documented in this encounter Care Teams Take Away Worker Relationship Specialty Start Date End Date [place], Nasir Geraldo, MD PCP - General 02/18/99 10/06/13 [address] [place] [address] documented as of this encounter
--- OUTSIDE RECORDS SUMMARY | 2021-12-08 09:42 | XMS_ITS | Encounter Summary ---
:1945 Author Organization [place] Address [address] [facility] [place] [address] Care Team Providers Name Role Phone Nasir Velazquez MD Primary Care Provider [phone] Reason for Visit Reason Comments RECHECK Encounter Details Date Type Department Care Team Description 02/03/2003 Office Visit [facility] Diogo Velazquez MIXED HY PERLIPIDEMIA; Physicians MD Bob AFTERCARE UTILITY MAINTENANCE WORKER USE MEDICATN; [address] [facility] [id number] [place] BENIGN HYPERTENSION ; [address] [place] [address] [phone] (Wo rk) Social History Tobacco Use Types Packs/Day Years Used Date Smoking Tobacco: Former Cigarettes Quit : 02/06/1984 Alcohol Use Standard Drinks/Week Comments Yes 1.7 (1 standard drink = 0.6 oz pure alco hol) Sex Assigned at Date Recorded Male 01/15/2018 11:39 PM STOCK ORDER LISTER documented as of this encounter Last Filed Vital Signs Vital Sign Reading Time Taken Comments Blood Pressure 136/70 02/03/2003 10:45 AM STOCK ORDER LISTER Pulse - - Temperature 36.4 ??C (97.6 ??F) 02/03/2003 10:45 AM STOCK ORDER LISTER Respiratory Rate - - Oxygen Saturation - - Inhaled Oxygen Concentration - - Weight 87.5 kg (193 lb) 02/03/2003 10:45 AM STOCK ORDER LISTER Height - - Body Mass Index 26.92 12/30/2002 9:00 AM STOCK ORDER LISTER documented in this encounter Progress Notes 02/03/2003 10:45 AM STOCK ORDER LISTER In for recheck on blood pressure and cholesterol review. CHOLESTEROL (MG/DL) Date Value Low High Status 12/31/2002 222* <200 Final ]. He will have lipid & liver profile done today & I will contact the patient when lab results available. ############################################################## Will want hard copy to send to [employer] if lipid & liver profile are within [...] LABELS Routine 02/03/2003 12:04 Mixed Hyperlipidemia PM STOCK ORDER LISTER LABELS Routine 02/03/2003 12:02 Mixed Hyperlipi demia PM STOCK ORDER LISTER Aftercare Assembler Engine Use Medicatn HCL HEPATIC PANEL Routine 02/03/2003 11:26 Mixed Hyperli pidemia Results for this AM STOCK ORDER LISTER Aftercare Assembler Engine procedur e are in Use Medicatn the results section. HCL LIPID PANEL Routine 02/03/2003 11:26 Mixed Hyperlipi demia Results for this AM STOCK ORDER LISTER Aftercare Assembler Engine procedur e are in Use Medicatn the results section. HC VENOUS Routine 02/03/2003 11:26 Mixed Hyperlipi demia COLLECTION AM STOCK ORDER LISTER Aftercare Assembler Engine Use Medicatn documented in this encounter Results (ABNORMAL) A.M.A. LIPID PANEL (02/03/2003 11:26 AM STOCK ORDER LISTER) Patholo gist Method Time Signature Comments DNR [facility] Triglycerides 179 (H) <150 MG/DL [facility] Cholesterol 179 <200 MG/DL [facility] Cholesterol 14 PERCENTILE [place] Percentile HDL Cholesterol 51 >39 MG/DL [facility] LDL Cholesterol 92 <130 MG/DL [facility] Calculated Cholesterol/HDL 3.5 <5.0 [facility] Ratio Specimen (Source) Anatomical Collection Method Collection Time Re ceived Time Location / / Volume Laterality 02/03/2003 11:26 02/03/2003 AM STOCK ORDER LISTER Diogo Velazquez MD LABORATORY Performing Organization Address City/State/ZIP Code Phon e Number [place] A.M.A. HEPATIC PANEL (02/03/2003 11:26 AM STOCK ORDER LISTER) P athologist Signature Comments DNR [facility] Protein Total 7.8 6.0 - 8.3 [facility] G/DL Albumin 4.3 3.5 - 4.9 [facility] G/DL Globulin 3.5 2.2 - 4.2 [facility] Calculated G/DL A/G Ratio 1.2 0.8 - 2.0 [facility] Bilirubin Total 0.6 0.2 - 1.5 [place] MG/DL Bilirubin Direct 0.1 0.0 - 0.3 [facility] MG/DL Alkaline 121 20 - 125 [facility] Phosphatase U/L AST 24 2 - 50 U/L [facility] ALT 28 2 - 60 U/L [facility] Specimen (Source) Anatomical Collection Method Collection Time Re ceived Time Location / / Volume Laterality 02/03/2003 11:26 02/03/2003 AM STOCK ORDER LISTER Diogo Velazquez MD LABORATORY Performing Organization Address City/State/ZIP Code Phon e Number [facility] documented in this encounter Visit Diagnoses Diagnosis Mixed hyperlipidemia Encounter for long-term (current) use of other medications BENIGN HYPERTENSION Essential hypertension, benign ESOPHAGEAL REFLUX Esophageal reflux documented in this encounter Care Teams Missionary Coordinator Relationship Specialty Start Date End Date Nasir Velazquez MD PCP - General 02/18/99 10/06/13 [facility] [address] [place] [address] documented as of this encounter
--- OUTSIDE RECORDS SUMMARY | 2021-12-08 09:42 | XMS_ITS | Encounter Summary ---
:1945 Author Organization [place] Address [address] [place] [address] Care Team Providers Name Role Phone Nasir Velazquez MD Primary Care Provider [phone] Raghavendra Deras MD Primary Care Provider Unavailable Raghavendra Deras MD Unavailable Unavailable Raghavendra Deras MD Unavailable Unavailable Encounter Details Date Type Department Care Team Description 01/09/2003 [facility], Diogo Bob, EST PAIN NOS (Primary Dx); Physicians MIXED HYPERLIPIDEMIA ; [id number] [facility] BENIGN HYPERTENSION ; [address] [place], [place] MIXED HYPERLIPIDEMIA; [place] [address] AFTERCARE DETENTION USE MEDICATN [address] [phone] Social History Tobacco Use Types Packs/Day Years Used Date Smoking Tobacco: Former Cigarettes 0.5 20 Quit : 02/06/1984 Smokeless Tobacco: Never Alcohol Use Standard Drinks/Week Comments Yes 1.7 (1 standard drink = 0.6 oz pure alco hol) occasional Sex Assigned at Date Recorded Male 01/15/2018 11:39 PM WOMEN'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 Assessment: 1) Negative subjective stress EKG 2) Negative objective stress EKG 3) Echo report from Collections Professional is pending 4) Risk factors for coronary [...] medications documented in this encounter Care Teams Cleaning Custodian Relationship Specialty Start Date End Date Nasir Velazquez MD PCP - General 02/18/99 10/06/13 [address] [place] [address] Raghavendra Deras MD PCP - General Family Practice 10/07/13 Raghavendra Deras MD PCP - Assigned PCP 01/23/16 04/09/18 Raghavendra Deras MD Assigned PCP 01/23/16 05/14/21 documented as of this encounter
--- OUTSIDE RECORDS SUMMARY | 2021-12-08 09:42 | XMS_ITS | Encounter Summary ---
:1945 Author Organization [place] Address [address] [facility] [place] [address] Care Team Providers Name Role Phone Nasir Velazquez MD Primary Care Provider [phone] Reason for Visit Reason Comments Blood Draw Encounter Details Date Type Department Care Team Description 09/06/2005 Orders Only [employer] MIX ED HYPERLIPIDEMIA; [facility] BENIGN HYPERTENSION [address] [place] [address] Social History Tobacco Use Types Packs/Day Years Used Date Smoking Tobacco: Former Cigarettes Quit : 02/06/1984 Alcohol Use Standard Drinks/Week Comments Yes 1.7 (1 standard drink = 0.6 oz pure alco hol) socially Sex Assigned at Date Recorded Male 01/15/2018 11:39 PM CASE MGR documented as of this encounter Plan [...] A.M.A. COMPREHENSIVE MET.PANEL (09/06/2005 10:01 AM CDT) athologist Signature Sodium 140 133 - 144 [place] mmol/L [facility] Potassium 3.4 3.4 - 5.3 [place] mmol/L [facility] Chloride 103 94 - 109 [place] mmol/L [facility] Carbon Dioxide 28 20 - 32 [place] mmol/L [facility] Anion Gap 9 6 - 17 [place] mmol/L [facility] Glucose 105 60 - 110 [facility] Urea Nitrogen 17 7 - 30 [place] mg/dL [facility] Creatinine 1.10 0.80 - [place] 1.50 mg/dL [facility] GFR Estimate 73 >60 [place] mL/min/1.7 [facility] m2 GFR Estimate If 88 >60 [facility] Black mL/min/1.7 [facility] LAB m2 Calcium 9.0 8.5 - 10.4 [facility] mg/dL [facility] Bilirubin Total 0.4 0.2 - 1.3 [facility] mg/dL [facility] Albumin 4.2 3.2 - 4.5 [facility] g/dL [facility] Protein Total 7.5 6.0 - 8.2 [facility] g/dL [facility] Alkaline 120 40 - 150 [facility] Phosphatase U/L [facility] ALT 34 0 - 70 U/L [facility] AST 31 0 - 55 U/L [facility] Specimen Anatomical Collection Method Collection Time Receive d Time (Source) Location / / Volume Laterality 09/06/2005 10:01 09/06/2005 AM CDT 10:03 AM CDT Diogo Velazquez MD LABORATORY Performing Organization Address City/State/ZIP Code Phon e Number [facility] [address] [place] [address] [facility] (ABNORMAL) A.M.A. LIPID PANEL (09/06/2005 10:01 AM CDT) athologist Signature Cholesterol 143 0 - 200 [facility] mg/dL CLIN[facility] Comment: LDL [...] Triglycerides 186 (H) 0 - 150 mg/dL [facility] HDL Cholesterol 38 (L) 40 - 110 mg/dL [facility] LDL Cholesterol Calculated 68 0 - 129 mg/dL [facility] Comment: LDL Cholesterol is the primary guide to therapy: LDL-cholesterol goal in high risk patients is <100 mg/dL and in very high risk patients is <70 mg/dL. VLDL-Cholesterol 37 (H) 0 - 30 mg/dL [facility] Cholesterol/HDL Ratio 3.8 0.0 - 5.0 [facility] Specimen Anatomical Collection Method Collection Time Receive d Time (Source) Location / / Volume Laterality 09/06/2005 10:01 09/06/2005 AM CDT 10:03 AM CDT Diogo Velazquez MD LABORATORY Performing Organization Address City/State/ZIP Code Phon e Number [facility] [address] [place] [address] [facility] documented in this encounter Visit Diagnoses Diagnosis Mixed hyperlipidemia Essential hypertension, benign documented in this encounter Care Teams Search Analyst Relationship Specialty Start Date End Date Nasir Velazquez MD PCP - General 02/18/99 10/06/13 [facility] [address] [place] [address] documented as of this encounter
--- OUTSIDE RECORDS SUMMARY | 2021-12-08 09:42 | XMS_ITS | Encounter Summary ---
:1945 Author Organization [place] Address [address] [facility] [place] [address] Care Team Providers Name Role Phone Nasir Velazquez MD Primary Care Provider [phone] Encounter Details Date Type Department Care Team Description 07/24/2005 Historic Industrial Staff Nurse INTERFACED REPORT Ingris Arroyo MD [facility] [address] [place], [place] [id number] (Wo rk) Social History Tobacco Use Types Packs/Day Years Used Date Smoking Tobacco: Former Cigarettes Quit : 02/06/1984 Alcohol Use Standard Drinks/Week Comments Yes 1.7 (1 standard drink = 0.6 oz pure alco hol) socially Sex Assigned at Date Recorded Male 01/15/2018 11:39 PM WARP HANGER documented as of this encounter Progress Notes Blayne Arroyo MD - 01/10/2011 10:49 PM WARP HANGER PRELIMINARY SLEEP STUDY INDICATIONS: Snoring, excessive daytime [...] MD MT: tai Name: LO NEUMANN Account: [id number] : 1945 Visit Date: 07/24/2005 Document: [id number] cc: Diogo Velazquez MD HANGER documented in this encounter Plan of Treatment Not on filedocumented as of this encounter Visit Diagnoses Not on filedocumented in this encounter Care Teams Electrician Locomotive Relationship Specialty Start Date End Date Nasir Velazquez MD PCP - General 02/18/99 10/06/13 [facility] [address] [place] [address] documented as of this encounter
--- OUTSIDE RECORDS SUMMARY | 2021-12-08 09:42 | XMS_ITS | Encounter Summary ---
:1945 Author Organization [place] Address [address] [facility] [place] [address] Care Team Providers Name Role Phone Nasir Velazquez MD Primary Care Provider [phone] Reason for Visit Reason Comments Physical PX, discuss PSA, HX in famil y Encounter Details Date Type Department Care Team Description 04/08/2007 Office Visit [facility] Nasir Velazquez E MEDICAL EXAM (Primary Dx); Clinic Candy Chow MD BENIGN HYPERTENSION; [address] [facility] SAVANNAH SCREENING MAL NEOP-PROSTATE; [place], [place] CLINIC MIXED HYPERLIPIDEMIA; [phone] [address] S[place]ANNAH SCREENING-DIABETES MELLITUS; [phone] CERVICALGIA; [place], [place] OTHER LUNG DISEASE NEC; [address] HYPERTROPHY of PROSTATE ; [phone] (Wo rk) ESOPHAGEAL REFLUX Social History Tobacco Use Types Packs/Day Years Used Date Smoking Tobacco: Former Cigarettes Quit : 02/06/1984 Alcohol Use Standard Drinks/Week Comments Yes 1.7 (1 standard drink = 0.6 oz pure alco hol) socially Sex Assigned at Date Recorded Male 01/15/2018 11:39 PM MANAGER AMBULATORY documented as of this encounter Last Filed Vital Signs Vital Sign Reading Time Taken Comments Blood Pressure 114/78 04/08/2007 9:30 AM MANAGER AMBULATORY Pulse 60 04/08/2007 9:30 AM MANAGER AMBULATORY Temperature 36.7 ??C (98.1 ??F) 04/08/2007 9:30 AM MANAGER AMBULATORY Respiratory Rate - - Oxygen Saturation 95% 04/08/2007 9:30 AM MANAGER AMBULATORY Inhaled Oxygen Concentration - - Weight 87.5 kg (193 lb) 04/08/2007 9:30 AM MANAGER AMBULATORY Height 175.3 cm (5' 9) 04/08/2007 9:30 AM MANAGER AMBULATORY Body Mass Index 28.5 04/08/2007 9:30 AM MANAGER AMBULATORY documented in this encounter Progress Notes Nasir Velazquez - 04/08/2007 9:49 AM CST SUBJECTIVE: CC: Terry Montreo is a 61 year old male who [...] Years of Education: 15 Occupational History ??? [employer],[address] [place] [address] Social History Main Topics ??? Tobacco Use: [...] in old age ??? C.A.D. Maternal Uncle [place] ??? [place] Maternal Uncle ??? Prostatic [...] if symptoms are not as well controlled. GER AMBULATORY documented in this encounter Nursing Notes 04/08/2007 9:30 AM CST >> [place] 04/08/2007 9:44 am Patient presents with: Physical - PX, discuss PSA, HX in family Terry Montero presents for as above. Initial BP 114/78 Pulse 60 Temp (Src) 98.1 (Oral) Ht 5' 9 (1.75m) Wt 193 lbs (87.5kg) SaO2 95% Body mass index is 28.49 kg/(m^2).. BP completed using cuff size: regular Alexandria Garcia CHIP WASHER documented in this encounter Plan of Treatment Not on filedocumented as of this encounter Procedures Procedure Name Priority Date/Time Associated Diagnosis Comme nts HC CT THORAX W/O Routine 04/11/2007 11:12 Other diseases of chidi ng, Results for this CONT AM MANAGER AMBULATORY not elsewhere procedure are in classified the results section. HC X-RAY CERV Routine 04/08/2007 10:22 Cervicalgia Results fo r this SPINE 2-3 VIEWS AM MANAGER AMBULATORY procedure ar e in the results section. CREATININE, URINE Routine 04/08/2007 10:19 Benign Hypertension Results for this AM MANAGER AMBULATORY procedure are i n the results section. HCL PROSTATE SPEC Routine 04/08/2007 10:19 Screening Mal Resul ts for this ANTIGEN,SCREEN AM MANAGER AMBULATORY Neop-Prostate procedure ar e in the results section. HCL BASIC Routine 04/08/2007 10:19 Benign Hypertension Resu lts for this METABOLIC PANEL AM MANAGER AMBULATORY procedure ar e in the results section. HCL ALBUMIN URINE Routine 04/08/2007 10:19 Benign Hypertension Results for this (INC CREAT) AM MANAGER AMBULATORY procedure are i n the results section. HCL ALT Routine 04/08/2007 10:19 Mixed Hyperlipidemia Res ults for this AM MANAGER AMBULATORY procedure are i n the results section. CL AFF A.M.A. Routine 04/08/2007 10:19 Mixed Hyperlipidemia Re sults for this LIPID PANEL AM MANAGER AMBULATORY procedure are i n the results section. documented in this encounter Results CT SCAN CHEST (04/11/2007 11:12 AM MANAGER AMBULATORY) Anatomical Region Laterality Modality Other Specimen (Source) Anatomical Collection Method Collection Time Re ceived Time Location / / Volume Laterality 04/11/2007 11:12 AM MANAGER AMBULATORY Impressions 04/11/2007 11:[address] CHEST FOR NODULE HISTORY: ??Pulmonary nodule. [...] 2 OR 3 VIEW (04/08/2007 10:22 AM MANAGER AMBULATORY) Anatomical Region Laterality Modality Other Specimen (Source) Anatomical Collection Method Collection Time Re ceived Time Location / / Volume Laterality 04/08/2007 10:22 AM MANAGER AMBULATORY Impressions 04/08/2007 10:44 AM MANAGER AMBULATORY CERVICAL SPINE 2-3 VW* HISTORY: Pain FINDINGS: Degenerative disc disease at t he C3 and C5 levels. Degenerative facet disease throughout th e cervical spine. Exam otherwise negative. Nasir Velazquez MD GENERAL IMAGING CREATININE, URINE (04/08/2007 10:19 AM MANAGER AMBULATORY) P athologist Signature Creatinine 191 mg/dL [facility] Urine [place] [facility] Specimen Anatomical Collection Method Collection Time Receive d Time (Source) Location / / Volume Laterality 04/08/2007 10:19 04/08/2007 AM MANAGER AMBULATORY 10:21 AM MANAGER AMBULATORY Nasir Velazquez MD LABORATORY Performing Organization Address City/State/ZIP Code Phon e Number [phone] [place] [address] LABS MICROALBUMIN (INC URINE CREAT) (04/08/2007 10:19 AM MANAGER AMBULATORY) P athologist Signature Albumin Urine 6 mg/L [facility] mg/L [facility] Albumin Urine 3.09 0 - 20 [facility] mg/g Cr mg/g Cr [facility] Specimen Anatomical Collection Method Collection Time Receive d Time (Source) Location / / Volume Laterality 04/08/2007 10:19 04/08/2007 AM MANAGER AMBULATORY 10:21 AM MANAGER AMBULATORY Nasir Velazquez MD LABORATORY Performing Organization Address City/State/ZIP Code Phon e Number [address] [address] [facility] LABS (ABNORMAL) A.M.A. BASIC METABOLIC PANEL (04/08/2007 10:19 AM MANAGER AMBULATORY) P athologist Signature Sodium 144 133 - 144 [place] mmol/L [facility] Potassium 3.7 3.4 - 5.3 [facility] mmol/L [facility] Chloride 102 94 - 109 [facility] mmol/L [facility] Carbon Dioxide 30 20 - 32 [facility] mmol/L [facility] Anion Gap 11 6 - 17 [facility] mmol/L [facility] Glucose 101 (H) 60 - 99 [facility] mg/dL [facility] Urea Nitrogen 17 7 - 30 [facility] mg/dL [facility] Creatinine 1.16 0.80 - [facility] 1.50 mg/dL [facility] GFR Estimate 68 >60 [facility] mL/min/1.7 [facility] m2 LAB GFR Estimate If 82 >60 [place] Black mL/min/1.7 [facility] m2 LAB Calcium 9.3 8.5 - 10.4 [facility] mg/dL [facility] Specimen Anatomical Collection Method Collection Time Receive d Time (Source) Location / / Volume Laterality 04/08/2007 10:19 04/08/2007 AM MANAGER AMBULATORY 10:21 AM MANAGER AMBULATORY Nasir Velazquez MD LABORATORY Performing Organization Address City/State/ZIP Code Phon e Number [facility] [address] [place] [address] [facility] PROSTATE SPEC ANTIGEN,SCREEN (04/08/2007 10:19 AM MANAGER AMBULATORY) P athologist Signature PSA 0.43 0 - 4 ug/L [facility] Specimen Anatomical Collection Method Collection Time Receive d Time (Source) Location / / Volume Laterality 04/08/2007 10:19 04/08/2007 AM MANAGER AMBULATORY 10:21 AM MANAGER AMBULATORY Nasir Velazquez MD LABORATORY Performing Organization Address City/State/ZIP Code Phon e Number [facility] [address] [place] [address] [facility] ALANINE AMINO (ALT) (SGPT) (04/08/2007 10:19 AM MANAGER AMBULATORY) athologist Signature ALT 45 0 - 70 U/L [facility] Specimen Anatomical Collection Method Collection Time Receive d Time (Source) Location / / Volume Laterality 04/08/2007 10:19 04/08/2007 AM MANAGER AMBULATORY 10:21 AM MANAGER AMBULATORY Nasir Velazquez MD LABORATORY Performing Organization Address City/State/ZIP Code Phon e Number [facility] [address] [place] [address] [facility] (ABNORMAL) A.M.A. LIPID PANEL (04/08/2007 10:19 AM MANAGER AMBULATORY) athologist Signature Cholesterol 169 0 - 200 [facility] mg/dL CLINIC [...] Triglycerides 188 (H) 0 - 150 mg/dL [facility] HDL Cholesterol 41 40 - 110 mg/dL [facility] LDL Cholesterol Calculated 91 0 - 129 mg/dL [facility] Comment: LDL Cholesterol is the primary guide to therapy: LDL-cholesterol goal in high risk patients is <100 mg/dL and in very high risk patients is <70 mg/dL. VLDL-Cholesterol 38 (H) 0 - 30 mg/dL [facility] Cholesterol/HDL Ratio 4.2 0.0 - 5.0 [facility] Specimen Anatomical Collection Method Collection Time Receive d Time (Source) Location / / Volume Laterality 04/08/2007 10:19 04/08/2007 AM MANAGER AMBULATORY 10:21 AM MANAGER AMBULATORY Nasir Velazquez MD LABORATORY Performing Organization Address City/State/ZIP Code Phon e Number [facility] [address] [place] [address] [facility] documented in this encounter [...] reflux documented in this encounter Care Teams Process Laboratory Specialist Relationship Specialty Start Date End Date Nasir Velazquez MD PCP - General 02/18/99 10/06/13 [facility] [address] [place] [address] documented as of this encounter
--- OUTSIDE RECORDS SUMMARY | 2021-12-08 09:42 | XMS_ITS | Encounter Summary ---
:1945 Author Organization [place] Address [address] [facility] [place] [address] Care Team Providers Name Role Phone Nasir Velazquze MD Primary Care Provider [phone] Encounter Details Date Type Department Care Team Description 12/26/2005 Telephone [facility] Diogo Velazquez MD [place] [id number] [facility] [address] [place] [address] [place] [address] [phone] Social History Tobacco Use Types Packs/Day Years Used Date Smoking Tobacco: Former Cigarettes Quit : 02/06/1984 Alcohol Use Standard Drinks/Week Comments Yes 1.7 (1 standard drink = 0.6 oz pure alco hol) socially Sex Assigned at Date Recorded Male 01/15/2018 11:39 PM SECURITIES ANALYST documented as of this encounter Miscellaneous Notes Telephone Encounter - Nasir Velazquez - 12/26/2005 3:45 PM CST Spoke with patient - OK to skip a few pills. [facility] form filled out and faxed. He will come in 03/14 for follow up. RITIES ANALYST Telephone Encounter - Aniya Arce - 12/26/2005 11:59 AM CST Pt wants rx sent to [facility]. Ph: . Phone: . . He states that he only pays $3 for 90 pills using [facility] and he pays $14 for 30 at [facility]. He will run out of meds before [facility] gets them to him. He does not want to pay $14 at [facility], is it ok to skip some pills inbetween? Call pt at home. Aniya Arce CMA Called for form from [employer], they will fax. RITIES ANALYST Telephone Encounter - Aniya Arce - 12/26/2005 11:43 AM SECURITIES ANALYST Staff Message copied by ANIYA ARCE on 12/26/2005 at 11:43 AM ------ Message from: EDYTA MUNSON Created: 12/26/2005 at 11:30 AM Regarding: Phone Message Contact: Terry asked for a refill for Hydrochlorothiazide on 12-18-[address] Murali Velazquez. He went [facility]. He uses [facility]. He only has 2 pills left. He would like our clinic to call [facility]'s in , to explain what happened. Terry can be reached at [phone]. DL 12-26@11:29am RITIES ANALYST documented in this encounter Plan of Treatment Not on filedocumented as of this encounter Visit Diagnoses Not on filedocumented in this encounter Care Teams Collection Advisor Relationship Specialty Start Date End Date Nasir Velazquez MD PCP - General 02/18/99 10/06/13 [place] [id number] [place] [address] documented as of this encounter
--- OUTSIDE RECORDS SUMMARY | 2021-12-08 09:42 | XMS_ITS | Encounter Summary ---
:1945 Author Organization [place] Address [address] [facility] [place] [address] Care Team Providers Name Role Phone Nasir Velazquez MD Primary Care Provider [phone] Reason for Visit Reason Comments Blood Draw Encounter Details Date Type Department Care Team Description 02/01/2005 Orders Only [facility] MIX ED HYPERLIPIDEMIA; [facility] BENIGN HYPERTENSION [address] [place] [address] Social History Tobacco Use Types Packs/Day Years Used Date Smoking Tobacco: Former Cigarettes Quit : 02/06/1984 Alcohol Use Standard Drinks/Week Comments Yes 1.7 (1 standard drink = 0.6 oz pure alco hol) socially Sex Assigned at Date Recorded Male 01/15/2018 11:39 PM MANAGER OF DRILLING documented as of this encounter Plan of Treatment Not on filedocumented as of this encounter Procedures Procedure Name Priority Date/Time Associated Diagnosis Comme nts HCL COMPREHENSIVE Routine 02/01/2005 11:00 Mixed Hyperli pidemia Results for this METABOLIC PANEL AM MANAGER OF DRILLING Benign Hypertension proce dure are in the results section. CL AFF A.M.A. LIPID Routine 02/01/2005 11:00 Mixed Hyperlipide jolynn Results for this PANEL AM MANAGER OF DRILLING procedure are i n the results section. documented in this encounter Results A.M.A. COMPREHENSIVE MET.PANEL (02/01/2005 11:00 AM MANAGER OF DRILLING) athologist Signature Sodium 143 133 - 144 [place] [facility] mmol/L [facility]IN[facility] LAB Potassium 4.1 3.4 - 5.3 [place] [facility] mmol/L [facility] Chloride 103 94 - 109 [place] [facility] mmol/L [facility] Carbon Dioxide 30 20 - 32 [place] [facility] mmol/L [facility] LAB Anion Gap 11 6 - 17 [place] [facility] mmol/L [facility] Glucose 103 60 - 110 [facility] Urea Nitrogen 16 7 - 30 [place] [facility] mg/dL [facility] LAB Creatinine 1.00 0.80 - [place] [facility] 1.50 mg/dL CLINIC LAB GFR Estimate >80 >60 [place] [facility] mL/min/1.7 [facility]IC LAB m2 GFR Estimate If >80 >60 [facility] Black mL/min/1.7 [facility] m2 Calcium 9.2 8.5 - 10.4 [facility] mg/dL [facility] Bilirubin Total 0.4 0.2 - 1.3 [facility] mg/dL [facility] Albumin 4.1 3.2 - 4.5 [facility] g/dL [facility] Protein Total 7.5 6.0 - 8.2 [facility] g/dL [facility] Alkaline 123 40 - 150 [facility] Phosphatase U/L [facility] ALT 65 0 - 70 U/L [facility] AST 38 0 - 55 U/L [facility] Specimen Anatomical Collection Method Collection Time Receive d Time (Source) Location / / Volume Laterality 02/01/2005 11:00 02/01/2005 AM MANAGER OF DRILLING 11:01 AM MANAGER OF DRILLING Diogo Velazquez MD LABORATORY Performing Organization Address City/State/ZIP Code Phon e Number [facility] [address] [place] [address] [facility] A.M.A. LIPID PANEL (02/01/2005 11:00 AM MANAGER OF DRILLING) athologist Signature Cholesterol 165 0 - 200 [facility] mg/dL CLINIC LAB Comment: LDL Cholesterol [...] mg/dL. Triglycerides 117 0 - 150 mg/dL [facility] HDL Cholesterol 51 40 - 110 mg/dL [facility] LDL Cholesterol Calculated 91 0 - 129 mg/dL [facility] Comment: LDL Cholesterol is the primary guide to therapy: LDL-cholesterol goal in high risk patients is <100 mg/dL and in very high risk patients is <70 mg/dL. VLDL-Cholesterol 23 0 - 30 mg/dL [facility] Cholesterol/HDL Ratio 3.2 0.0 - 5.0 [facility] Specimen Anatomical Collection Method Collection Time Receive d Time (Source) Location / / Volume Laterality 02/01/2005 11:00 02/01/2005 AM MANAGER OF DRILLING 11:01 AM MANAGER OF DRILLING Diogo Velazquez MD LABORATORY Performing Organization Address City/State/ZIP Code Phon e Number [address] [address] [facility] documented in this encounter Visit Diagnoses Diagnosis Mixed hyperlipidemia Essential hypertension, benign documented in this encounter Care Teams Firer Electric Locomotive Relationship Specialty Start Date End Date Nasir Velazquez MD PCP - General 02/18/99 10/06/13 [facility] [address] [place] [address] documented as of this encounter
--- OUTSIDE RECORDS SUMMARY | 2021-12-08 09:42 | XMS_ITS | Encounter Summary ---
:1945 Author Organization [place] Address [address] [facility] [place] [address] Care Team Providers Name Role Phone Nasir Velazquez MD Primary Care Provider [phone] Reason for Visit Reason Comments RECHECK labs and recheck meds Encounter Details Date Type Department Care Team Description 02/03/[address] [facility] Diogo Velazquez BENIGN H YPERTENSION; Clinic Candy Rojas MD MIXED HYPERLIPIDEMIA; [address] [facility] [id number] [place] ESOPHAGEAL REFLUX ; [place], [place] AV HYPERTROPHY of PROSTATE ; [address] [place], [place] NUTRITION DEFICIENCY NEC [phone] (Wo rk) Social History Tobacco Use Types Packs/Day Years Used Date Smoking Tobacco: Former Cigarettes Quit : 02/06/1984 Alcohol Use Standard Drinks/Week Comments Yes 1.7 (1 standard drink = 0.6 oz pure alco hol) socially Sex Assigned at Date Recorded Male 01/15/2018 11:39 PM AIRPORT MANAGER documented as of this encounter Last Filed Vital Signs Vital Sign Reading Time Taken Comments Blood Pressure 120/82 02/03/2005 1:30 PM AIRPORT MANAGER Pulse 77 02/03/2005 1:30 PM AIRPORT MANAGER Temperature 36.6 ??C (97.9 ??F) 02/03/2005 1:30 PM AIRPORT MANAGER Respiratory Rate - - Oxygen Saturation 96% 02/03/2005 1:30 PM AIRPORT MANAGER Inhaled Oxygen Concentration - - Weight 87.5 kg (193 lb) 02/03/2005 1:30 PM AIRPORT MANAGER Height 177.8 cm (5' 10) 02/03/2005 1:30 PM AIRPORT MANAGER Body Mass Index 27.69 02/03/2005 1:30 PM AIRPORT MANAGER documented in this encounter Progress Notes Diogo [...] I sent the Rx's to the pharmacy. ([facility] ) ORT MANAGER documented in this encounter Nursing Notes 02/03/2005 1:30 PM CST >> ZACH DANIELSON 02/03/2005 1:35 pm Terry Montero presents for above. Initial BP 120/82 Pulse [...] deficiency documented in this encounter Care Teams Abstractor Relationship Specialty Start Date End Date Nasir Velazquez MD PCP - General 02/18/99 10/06/13 [place] [address] [place], [place] [address] documented as of this encounter
--- OUTSIDE RECORDS SUMMARY | 2021-12-08 09:42 | XMS_ITS | Encounter Summary ---
:1945 Author Organization [place] Address [address] [facility] [address] Care Team Providers Name Role Phone Nasir Velazquez MD Primary Care Provider [phone] Reason for Visit Reason Comments URI fever, sick since this wknd, sinus and face pressure, developed cough, has chills, last night he coughe d and described pains in his chest. 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 documented as of this encounter Last Filed Vital Signs Vital Sign Reading Time Taken Comments Blood Pressure 112/71 03/26/2006 2:00 PM SOLDER DEPOSIT OPERATOR Pulse 92 03/26/2006 2:00 PM SOLDER DEPOSIT OPERATOR Temperature 37.4 ??C (99.3 ??F) 03/26/2006 2:00 PM SOLDER DEPOSIT OPERATOR Respiratory Rate - - Oxygen Saturation 94% 03/26/2006 2:00 PM SOLDER DEPOSIT OPERATOR Inhaled Oxygen Concentration - - Weight 88 kg (194 lb) 03/26/2006 2:00 PM SOLDER DEPOSIT OPERATOR Height 177.8 cm (5' 10) 03/26/2006 2:00 PM SOLDER DEPOSIT OPERATOR Body Mass Index 27.84 03/26/2006 2:00 PM SOLDER DEPOSIT OPERATOR documented in this encounter Progress Notes Marlene [...] HCM if not uptodate. Marlene Carreno MD ER DEPOSIT OPERATOR documented in this encounter Nursing Notes 03/26/2006 2:00 PM CST >> ZACH DANIELSON 03/26/2006 2:04 pm Patient presents with: URI - fever, sick since this wknd, sinus and face pressure, developed cough, has chills, last nighthe coughed and described pains in his chest. Lo Neumann presents for above. Initial BP 112/71 Pulse [...] 2:38 PM Cough Resul ts for this SOLDER DEPOSIT OPERATOR procedure are i n the results section. HC CHEST TWO VIEWS, Routine 03/26/2006 Cough Results for this FRONT/LAT procedure are i n the results section. documented in this encounter Results (ABNORMAL) N-TERMINAL PRO BNP (03/26/2006 2:38 PM SOLDER DEPOSIT OPERATOR) P athologist Signature N-Terminal Pro 273 (H) 0.0 - [facility] Bnp 125.0 [place] pg/mL CAMPUS LABS Comment: Reference ranges shown and results [...] Volume Laterality 03/26/2006 2:38 PM 7 2:39 SOLDER DEPOSIT OPERATOR PM SOLDER DEPOSIT OPERATOR Marlene Carreno MD LABORATORY Performing Organization Address City/State/ZIP Code Phon e Number [facility] [address] LABS CHEST X-RAY 2 VW (03/26/2006) Anatomical Region Laterality Modality Other Impressions 03/26/2006 REPORT OF OUTSIDE FILMS FROM [facility] LO NEUMANN : ??45 PA AND LEFT [...] Primary documented in this encounter Care Teams Lead Mason Tender Relationship Specialty Start Date End Date Nasir Velazquez MD PCP - General 02/18/99 10/06/13 [facility] [address] [place] [address] documented as of this encounter
--- OUTSIDE RECORDS SUMMARY | 2021-12-08 09:42 | XMS_ITS | Encounter Summary ---
:1945 Author Organization [place] Address [address] [facility] [place] [address] Care Team Providers Name Role Phone Nasir Velazquez MD Primary Care Provider [phone] Reason for Visit Reason Onset Date Comments Call Back 03/29/2006 Encounter Details Date Type Department Care Team Description 03/29/2006 Telephone [facility] Yecenia Carreno MD Call Back [address] [phone] [place] [address] (Wo rk) Social History Tobacco Use Types Packs/Day Years Used Date Smoking Tobacco: Former Cigarettes Quit : 02/06/1984 Alcohol Use Standard Drinks/Week Comments Yes 1.7 (1 standard drink = 0.6 oz pure alco hol) socially Sex Assigned at Date Recorded Male 01/15/2018 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 Marlene Carreno MD ING MACHINE COIN COLLECTOR Telephone Encounter - Phoenix Dubois - 03/29/2006 10:24 AM CST Pt returned your call from yesterday. He can be reached at [phone] when you get a chance. Phoenix Dubois CMA ING MACHINE COIN COLLECTOR documented in this encounter Plan of Treatment Not on filedocumented as of this encounter Visit Diagnoses Diagnosis Cough - Primary documented in this encounter Care Teams Production Material Handler Relationship Specialty Start Date End Date Nasir Velazquez MD PCP - General 02/18/99 10/06/[address] [address] documented as of this encounter
--- OUTSIDE RECORDS SUMMARY | 2021-12-08 09:42 | XMS_ITS | Encounter Summary ---
:1945 Author Organization [place] Address [facility] [place] [address] Care Team Providers Name Role Phone Nasir Velazquez MD Primary Care Provider [phone] Reason for Visit Reason Comments Musculoskeletal Problem Encounter Details Date Type Department Care Team Description 08/13/2003 Office Visit [place] Dillan Palacio MIXED HYP ERLIPIDEMIA (Primary Dx); Physicians MD Geoff AFTERCARE CAMERA REPAIR TECHNICIAN USE MEDICATN; [address] XXX RETIRED XXX BENIGN HYPERTENSION ; [address] [address] [place], [place] [address] [address] [place], [place] [phone] [address] Social History Tobacco Use Types Packs/Day Years Used Date Smoking Tobacco: Former Cigarettes Quit : 02/06/1984 Alcohol Use Standard Drinks/Week Comments Yes 1.7 (1 standard drink = 0.6 oz pure alco hol) Sex Assigned at Date Recorded Male 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 documented as of this encounter [...] Body Mass Index 25.66 12/30/2002 9:00 AM LABORER HIDE HOUSE documented in this encounter Progress Notes 08/13/2003 [...] Nursing Notes 08/13/2003 10:45 AM CDT >> HENRIETTA JOSEPH 08/13/03 11:05 am Pt states that he [...] At Patho logist Time Signature Comments DNR [facility] [place] Glucose 100 (H) 65 - 99 [facility] MG/DL Sodium 140 135 - 146 [facility] MMOL/L Potassium 3.9 3.5 - 5.3 [facility] MMOL/L Chloride 104 98 - 110 [facility] MMOL/L Urea Nitrogen 15 7 - 25 [facility] MG/DL Creatinine 1.1 0.5 - 1.4 [facility] MG/DL BUN/Creatinine 14 6 - 25 [facility] Ratio Calcium 9.5 8.5 - 10.4 [facility] [place] MG/DL Protein Total 7.4 6.0 - 8.3 [facility] G/DL Albumin 4.4 3.5 - 4.9 [facility] G/DL Globulin 3.0 2.2 - 4.2 [facility] Calculated G/DL A/G Ratio 1.5 0.8 - 2.0 [facility] Bilirubin Total 0.7 0.2 - 1.5 [facility] MG/DL Alkaline 102 20 - 125 [facility] Phosphatase U/L AST 21 2 - 50 U/L [facility] ALT 24 2 - 60 U/L [facility] Carbon Dioxide 27 21 - 33 [facility] MMOL/L Specimen (Source) Anatomical Location Collection Method / Collectio n Time Received Time / Laterality Volume 08/13/2003 Dillan Fajardo MD LABORATORY Performing Organization Address City/State/ZIP Code Phon e Number [facility] (ABNORMAL) A.M.A. LIPID PANEL (08/14/2003 5:28 AM CDT) [facility] gist Method Time Signature Comments DNR [facility] Triglycerides 245 (H) <150 MG/DL [facility] Cholesterol 142 <200 MG/DL [facility] Cholesterol 2 PERCENTILE [facility] Percentile HDL Cholesterol 38 (L) >39 MG/DL [facility] LDL Cholesterol 55 <130 MG/DL [facility] Calculated Cholesterol/HDL 3.7 <5.0 [facility] Ratio Specimen (Source) Anatomical Location Collection Method / Collectio n Time Received Time / Laterality Volume 08/13/2003 Dillan Fajardo MD LABORATORY Performing Organization Address City/State/ZIP Code Phon e Number [facility] X-RAY KNEE 3 VIEW (08/13/2003) Anatomical Region [...] leg documented in this encounter Care Teams Clinical Analyst Relationship Specialty Start Date End Date Nasir Velazquez MD PCP - General 02/18/99 10/06/13 [address] [place] [address] documented as of this encounter
--- OUTSIDE RECORDS SUMMARY | 2021-12-08 09:42 | XMS_ITS | Encounter Summary ---
:1945 Author Organization [place] Address [address] [place] [address] Care Team Providers Name Role Phone Nasir Nicole MD Primary Care Provider [phone] Reason for Visit Reason Comments Refill Request doxazosin mesyl 4 mg Encounter Details Date Type Department Care Team Description 01/06/2003 Refill [facility] Fabricio Nicole, Re fill Request Physicians (doxazosin mesyl 4 mg) [address] [id number] [facility] [address] [place] [address] [place], [place] [phone] (Wo rk) [address] [phone] Social History Tobacco Use Types Packs/Day Years Used Date Smoking Tobacco: Former Cigarettes Quit : 02/06/1984 Alcohol Use Standard Drinks/Week Comments Yes 1.7 (1 standard drink = 0.6 oz pure alco hol) Sex Assigned at Date Recorded Male 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 >> FABRICIO NICOLE Jenn Jan 08, 2003 11:33 AM This is a duplicate. Doxazosin is generic Cardura, and prescription is already good for a year in Epic.Did not have to be reordered. >> JMI MELGAR Lenrickey Jan 06, 2003 8:45 AM >> CALL RECEIVED. Contact: ez rx in your bin for ok. documented in this encounter Plan of Treatment Not on filedocumented as of this encounter Visit Diagnoses Diagnosis Essential hypertension, benign - Primary documented in this encounter Care Teams Pig Machine Supervisor Relationship Specialty Start Date End Date Nasir Nicole MD PCP - General 02/18/99 10/06/[address] [address] documented as of this encounter
--- OUTSIDE RECORDS SUMMARY | 2021-12-08 09:42 | XMS_ITS | Encounter Summary ---
:1945 Author Organization [place] Address [address] [facility] 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 documented in this encounter Results ECHO HEART, FULL STRESS/REST (03/21/2006 10:13 AM COLLAR SEWER) Component Value Ref Test Analysis Performed At [facility] Range Method Time Signature [facility] Interpretation Summary [...] ? 185/85 ?max bp 185/85 - RPP 92926 ? 768 ?100 ? 135/75 ?RPP 08094 Stress Duration: 630 seconds ??Recovery Time: 768 seconds Maximum Stress HR: 162 bpm ?METS: ?? Interpreting Physician: ??Matthew Nava MD electronically signed on 03-21-2006 15:22:13 Anatomical Region Laterality Modality Other Specimen (Source) Anatomical Collection Method Collection Time Re ceived Time Location / / Volume Laterality 03/21/2006 10:13 AM COLLAR SEWER Nasir Velazquez MD SPECIAL IMAGING STUDIES documented in this encounter Visit Diagnoses Not on filedocumented in this encounter Care Teams Gasoline Attendant Relationship Specialty Start Date End Date Nasir Velazquez MD PCP - General 02/18/99 10/06/13 [address] [place] [address] documented as of this encounter
--- OUTSIDE RECORDS SUMMARY | 2021-12-08 09:42 | XMS_ITS | Encounter Summary ---
:1945 Author Organization [place] Address [facility] [place] [address] Care Team Providers Name Role Phone Nasir Velazquez MD Primary Care Provider [phone] Reason for Visit Reason Onset Date Comments Orders 03/09/2006 Encounter Details Date Type Department Care Team Description 03/09/2006 Telephone [facility] [place] [address] [place] [address] [facility] [phone] [facility] [address] [address] (Wo rk) Social History Tobacco Use Types Packs/Day Years Used Date Smoking Tobacco: Former Cigarettes Quit : 02/06/1984 Alcohol Use Standard Drinks/Week Comments Yes 1.7 (1 standard drink = 0.6 oz pure alco hol) socially Sex Assigned at Date Recorded Male 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 DRESSER Telephone Encounter - Phoenix Dubois - 03/09/2006 11:55 AM CST Pt called would like to have his cholesterol checked. Has an appt 03-12-06 may need new orders. Will schedule and appt to see you a few days after. Phoenix Dubois CMA DRESSER documented in this encounter Plan of Treatment Not on filedocumented as of this encounter Visit Diagnoses Diagnosis Mixed hyperlipidemia - Primary documented in this encounter Care Teams Stitching Machine Feeder Or Offbearer Relationship Specialty Start Date End Date Nasir Velazquez MD PCP - General 02/18/99 10/06/13 [facility] [address] [place] [address] documented as of this encounter
--- OUTSIDE RECORDS SUMMARY | 2021-12-08 09:43 | XMS_ITS | Encounter Summary ---
:1945 Author Organization [place] Address [address] [facility] [place] [address] Care Team Providers Name Role Phone Nasir Velazquez MD Primary Care Provider [phone] Reason for Referral Other (Routine) - Closed Specialty Diagnoses / Procedures Referred By Contact Refer red To Contact Gastroenterology Diagnoses Screening for malignant neoplasm of the rectum Diogo Velazquez MD [place] [address] [facility] MD Geoff [place], [place] [address] [place] [address] Phone: Fax: Referral ID Status Reason Start Date Expiration Date Visits V isits Requested Authorized [id number] Closed Service Not 11/04/2002 02/04/2011 1 1 Available at Clinic Encounter Details Date Type Department Care Team Description 11/04/2002 Orders Only Diogo Mujica SC REENING MAL Physicians MD NEOP-RECTUM (Primary [address] [address] [facility]) [address] [place] [address] [phone] Social History Tobacco Use Types Packs/Day Years Used Date Smoking Tobacco: Former Cigarettes Quit : 02/06/1984 Alcohol Use Standard Drinks/Week Comments Yes 1.7 (1 standard drink = 0.6 oz pure alco hol) Sex Assigned at Date Recorded Male 01/15/2018 11:39 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 Diogo Velazquez MD REFERRAL documented in this encounter Visit Diagnoses Diagnosis Screening for malignant neoplasm of the rectum - Primary documented in this encounter Care Teams Brick Burner Head Relationship Specialty Start Date End Date Nasir Velazquez MD PCP - General 02/18/99 10/06/13 [address] [place] [address] documented as of this encounter
--- OUTSIDE RECORDS SUMMARY | 2021-12-08 09:43 | XMS_ITS | Encounter Summary ---
:1945 Author Organization [place] Address [address] [facility] [place] [address] Care Team Providers Name Role Phone Nasir Nicole MD Primary Care Provider [phone] Reason for Visit Reason Comments Refill Request Encounter Details Date Type Department Care Team Description 08/02/2001 Refill [facility] Fabricio Nicole MD Refill Request Physicians [id number] [facility] [address] [place] [address] [address] [place] [address] [phone] Social History Tobacco Use Types Packs/Day Years Used Date Smoking Tobacco: Former Cigarettes Quit : 02/06/1984 Alcohol Use Standard Drinks/Week Comments Yes 1.7 (1 standard drink = 0.6 oz pure alco hol) Sex Assigned at Date Recorded Male 01/15/2018 11:39 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 >> FABRICIO NICOLE SunAug 05, 2001 11:00 AM ok >> CARLEY GEORGE SunAug 05, 2001 9:26 AM >> CALL RECEIVED. Contact: Pt called and would like to get refill of aciphex. To BAB. documented in this encounter Plan of Treatment Not on filedocumented as of this encounter Visit Diagnoses Not on filedocumented in this encounter Care Teams Claims Assistant Relationship Specialty Start Date End Date Nasir Nicole MD PCP - General 02/18/99 10/06/13 [facility]3] [address] [place] [address] documented as of this encounter
--- OUTSIDE RECORDS SUMMARY | 2021-12-08 09:43 | XMS_ITS | Encounter Summary ---
:1945 Author Organization [place] Address [address] [facility] [place] [address] Care Team Providers Name Role Phone Nasir Velazquez MD Primary Care Provider [phone] Reason for Referral - Closed Specialty Diagnoses / Procedures Referred By Contact Refer red To Contact Orthopedics Diagnoses Trigger finger (acquired) Diogo Velazquez MD Simonet, William T, [place] [address] [facility] [place], [place] [address] [place] [address] [place] [address] Phone: Fax: Referral ID Status Reason Start Date Expiration Date Visits Requ ested Visits Authorized [id number] Closed 08/11/2002 02/04/2011 1 1 Reason for Visit Reason Comments RECHECK Encounter Details Date Type Department Care Team Description 08/11/2002 Office Visit Diogo Mujica TRIGGER FINGER Physicians MD Bob (Primary Dx) [address] [place] [address] [address] [phone] (Wo rk) Social History Tobacco Use Types Packs/Day Years Used Date Smoking Tobacco: Former Cigarettes Quit : 02/06/1984 Alcohol Use Standard Drinks/Week Comments Yes 1.7 (1 standard drink = 0.6 oz pure alco hol) Sex Assigned at Date Recorded Male 01/15/2018 11:39 PM 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
--- OUTSIDE RECORDS SUMMARY | 2021-12-08 09:43 | XMS_ITS | Encounter Summary ---
:1945 Author Organization [place] Address [address] [facility] [place] [address] Care Team Providers Name Role Phone Nasir Velazquez MD Primary Care Provider [phone] Reason for Visit Reason Comments Call Back Encounter Details Date Type Department Care Team Description 12/30/2002 Telephone [facility] Diogo Velazquez MD Call Back Physicians [id number] [facility] [address], [place] [address] [address] [place] [address] [phone] Social History Tobacco Use Types Packs/Day Years Used Date Smoking Tobacco: Former Cigarettes Quit : 02/06/1984 Alcohol Use Standard Drinks/Week Comments Yes 1.7 (1 standard drink = 0.6 oz pure alco hol) Sex Assigned at Date Recorded Male 01/15/2018 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
--- OUTSIDE RECORDS SUMMARY | 2021-12-08 09:43 | XMS_ITS | Encounter Summary ---
:1945 Author Organization [place] Address [address] [place] [place] [address] Care Team Providers Name Role Phone Nasir Velazquez MD Primary Care Provider [phone] Reason for Visit Reason Comments Cough Encounter Details Date Type Department Care Team Description 03/25/2002 Office Visit [facility] Diogo Velazquez COUGH (P rimary Dx); Physicians MD Bob PAIN IN LIMB; [address] [id number] [place] SCREENING MAL NEOP-RECTUM; [address] FLATUL/ERUCTAT/GAS PAIN; [place], [place] [place] [address] [phone] (Wo rk) Social History Tobacco Use Types Packs/Day Years Used Date Smoking Tobacco: Former Cigarettes Quit : 02/06/1984 Alcohol Use Standard Drinks/Week Comments Yes 1.7 (1 standard drink = 0.6 oz pure alco hol) Sex Assigned at Date Recorded Male 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 documented as of this encounter Last Filed Vital Signs Vital Sign Reading Time Taken Comments Blood Pressure 134/80 03/25/2002 10:45 AM BOAT OPERATOR Pulse - - Temperature - - Respiratory Rate - - Oxygen Saturation - - Inhaled Oxygen Concentration - - Weight 86.2 kg (190 lb) 03/25/2002 10:45 AM BOAT OPERATOR Height - - Body Mass Index 27.26 09/16/1999 10:45 AM CDT documented in this encounter Progress Notes 03/25/2002 10:45 AM BOAT OPERATOR pt c/o cough x3w, had laryngitis at [...] R: 0 ADVAIR DISKUS 100-50 [facility], one inhalation twice per day, D: [...] Nursing Notes 03/25/2002 10:45 AM CST >> DOMINGA ALEXANDER 03/25/2002 10:53 am pt c/o cough x3w, [...] unspecified documented in this encounter Care Teams Funeral Pre Arrangement Specialist Relationship Specialty Start Date End Date Nasir Velazquez MD PCP - General 02/18/99 10/06/13 [address] [place] [address] documented as of this encounter
--- OUTSIDE RECORDS SUMMARY | 2021-12-08 09:43 | XMS_ITS | Encounter Summary ---
:1945 Author Organization [place] Address [address] [place] [address] Care Team Providers Name Role Phone Nasir Velazquez MD Primary Care Provider [phone] Reason for Visit Reason Comments forms records release to Dr. Gonzales, 04/01/02 Encounter Details Date Type Department Care Team Description 04/01/2002 Telephone [facility], Provider (re cords release to Physicians Dr. 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
--- OUTSIDE RECORDS SUMMARY | 2021-12-08 09:43 | XMS_ITS | Encounter Summary ---
:1945 Author Organization [place] Address [address] [facility] [place] [address] Care Team Providers Name Role Phone Nasir Nicole MD Primary Care Provider [phone] Reason for Visit Reason Comments Refill Request Encounter Details Date Type Department Care Team Description 11/11/2001 Refill [facility] Fabricio Nicole MD Refill Request Physicians [id number] [facility] [address] [place] [address] [address] [place] [address] [phone] Social History Tobacco Use Types Packs/Day Years Used Date Smoking Tobacco: Former Cigarettes Quit : 02/06/1984 Alcohol Use Standard Drinks/Week Comments Yes 1.7 (1 standard drink = 0.6 oz pure alco hol) Sex Assigned at Date Recorded Male 01/15/2018 11:39 PM SVP RESEARCH & EBUSINESS OPERATIONS documented as of this encounter Miscellaneous Notes Telephone Encounter - 11/11/2001 11:59 PM CDT >> GUS HarringtonNov 12, 2001 3:44 PM Rx's mailed to pt home. >> FABRICIO NICOLE SunNov 11, 2001 3:01 PM OK- printed in pod 1 >> GUS JOHNSON SunNov 11, 2001 2:35 PM Pt would like mail order. >> GUS JOHNSON SunNov 11, 2001 10:24 AM >> CALL RECEIVED. Contact: [phone] Pt called triage today with the following issue(s): Pt would like refills. Pt was not clear what he needs refilled called left message to call clinic. documented in this encounter Plan of Treatment Not on filedocumented as of this encounter Visit Diagnoses Not on filedocumented in this encounter Care Teams Shock Absorption Floor Layer Relationship Specialty Start Date End Date Nasir Nicole MD PCP - General 02/18/99 10/06/13 [address] [place] [address] documented as of this encounter
--- OUTSIDE RECORDS SUMMARY | 2021-12-08 09:43 | XMS_ITS | Encounter Summary ---
:1945 Author Organization [place] Address [address] [facility] [place] [address] Care Team Providers Name Role Phone Nasir Nicole MD Primary Care Provider [phone] Reason for Referral - Closed Specialty Diagnoses / Procedures Referred By Contact Refer red To Contact Dermatology Diagnoses Actinic keratosis Fabricio [place] [id number] [place], [place] [address] Referral ID Status Reason Start Date Expiration Date Visits Requ ested Visits Authorized [id number] Closed 12/30/2002 02/04/2011 1 1 A RELATIONS MANAGER - Closed Specialty Diagnoses / Procedures Referred By Contact Refer red To Contact Physical Therapy Diagnoses Cervicalgia Fabricio Nicole MD [id number] [place], [place] [address] 4 Referral ID Status Reason Start Date Expiration Date Visits Requ ested Visits Authorized [id number] Closed 12/30/2002 02/04/2011 1 1 A RELATIONS MANAGER Reason for Visit Reason Comments Physical Refill Request Referral Encounter Details Date Type Department Care Team Description 12/30/2002 Office Visit [facility] Fabricio Nicole CERVICAL SARAHI (Primary Dx); Physicians MD Bob COUGH; [address] [id number] [place] ROUTINE MEDICAL EXAM; [address] ACTINIC KERATOSIS; [place], [place], [place] BENIGN HYP ERTENSION; [phone] MIXED HYPERLIPIDEMIA ; [phone] CHEST PAIN NOS; (Work) SCREENING MAL NEOP-PROSTATE Social History Tobacco Use Types Packs/Day Years Used Date Smoking Tobacco: Former Cigarettes Quit : 02/06/1984 Alcohol Use Standard Drinks/Week Comments Yes 1.7 (1 standard drink = 0.6 oz pure alco hol) Sex Assigned at Date Recorded Male 01/15/2018 11:39 PM 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 documented as of this encounter Last Filed Vital Signs Vital Sign Reading Time Taken Comments Blood Pressure 140/82 12/30/2002 9:00 AM 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 Pulse 60 12/30/2002 9:00 AM 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 Temperature 36.2 ??C (97.1 ??F) 12/30/2002 9:00 AM 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 Respiratory Rate 18 12/30/2002 9:00 AM 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 Oxygen Saturation - - Inhaled Oxygen Concentration - - Weight 86.6 kg (191 lb) 12/30/2002 9:00 AM 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 Height 180.3 cm (5' 11) 12/30/2002 9:00 AM 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 Body Mass Index 26.64 12/30/2002 9:00 AM 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 documented in this encounter Progress Notes 12/30/2002 9:00 AM 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 In for a number of concerns & [...] Medium [2] Comment: should be seen by piano and organ refinisher yearly per plastic surgeon ALLERGIC RHINITIS NOS[477.9] Comment: mites MIXED HYPERLIPIDEMIA[272.2] HYPERTROPHY (BENIGN) PROSTATE[600.0] ESOPHAGEAL REFLUX[530.81] Comment: Hx of ulcer BUNION[727.1] Date Noted: 09/26/2000 FLATUL/ERUCTAT/GAS PAIN[787.3] Date Noted: 03/25/2002 TRIGGER FINGER[727.03] Date Noted: 08/11/2002 Review of patient's family history indicates: Diabetes Maternal Grandmother Stroke Maternal Grandmother Comment: in old age C.A.D. Maternal Uncle Comment: [place] Colon CA Maternal Uncle Prostatic CA Paternal [...] cough with phlegm. Pt would also like piano and organ refinisher. Sharp pain in rib cage last week. Questioned patient about current smoking habits. Pt. quit smoking some time ago. documented in this encounter Plan of Treatment Not on filedocumented as of this encounter Procedures Procedure Name Priority Date/Time Associated Diagnosis Comme nts PHYSICAL THERAPY Routine 03/25/2003 12:04 Cervicalgia REFERRAL PM 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 ADULT DERMATOLOGY Routine 03/17/2003 Actinic Keratosis REFERRAL HC CHEST TWO VIEWS, Routine 01/02/2003 11:45 Cough Resu lts for this FRONT/LAT AM 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 procedure are i n the results section. HCL PSA, DIAGNOSTIC Routine 12/31/2002 5:11 Screening Mal Resu lts for this (TUMOR MARKER) AM 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 Neop-Prostate procedure ar e in the results section. HCL COMPREHENSIVE Routine 12/31/2002 5:09 Routine Medica l Exam Results for this METABOLIC PANEL AM 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 Benign Hypertension proce dure are in the results section. HCL LIPID PANEL Routine 12/31/2002 5:09 MIXED HYPERLIPIDEMIA R esults for this AM 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 procedure are i n the results section. ZZCL AFF HEMOGLOBIN Routine 12/30/2002 9:46 Routine Medical Ex am Results for this AM 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 procedure are i n the results section. ZZC Routine 12/30/2002 9:41 Routine Medical Exam ELECTROCARDIOGRAM, AM 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 Benign Hypertension COMP W/READ HC VENOUS COLLECTION Routine 12/30/2002 9:36 Routine Med ical Exam AM 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 Benign Hypertens ion MIXED HYPERLIPIDEMIA HC SPIROMETRY, BREATH Routine 12/30/2002 Cough CAPACITY documented in this encounter Results CONSULT TO PHYSICAL THERAPY (03/25/2003 12:04 PM 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) Narrative This result has an attachment that is no t available. Fabricio Nicole MD REFERRAL CONSULT TO DERMATOLOGY (03/17/2003) Narrative This result has an attachment that is no t available. Fabricio Nicole MD REFERRAL CHEST X-RAY 2 VW (01/02/2003 11:45 AM 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) Anatomical Region Laterality Modality Other Narrative 01/02/2003 11:45 AM 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 REPORT OF OUTSIDE FILMS FROM: [facility] Patient: ??LO NEUMANN ?? Case No: ?? Birthdate: [birth year] Referring Physician: DR. FABRICIO NICOLE Exam Date: 12/30/02 Exam: TWO VIEW CHEST CLINICAL DATA: ??Cough. FINDINGS: ??Negative and unchanged from 06/28/00. ?? Andrew Dyson M.D. TOMY/ian D/T: ??12/30/02 Fabricio Nicole MD GENERAL IMAGING PSA, DIAGNOSTIC (12/31/2002 5:11 AM 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) athologist Signature Sanches PSA 0.4 <0R=4.0 [place] NG/ML Comment: PSA VALUES FROM DIFFERENT ASSAY METHODS CANNOT BE USED INTERCHANGEABLY. THIS ASSAY WAS PER FORMED USING THE COREY CHEMILUMINESCENT METHOD. Specimen (Source) Anatomical Location Collection Method / Collectio n Time Received Time / Laterality Volume 12/30/2002 Fabricio Nicole MD LABORATORY Performing Organization Address City/State/ZIP Code Phon e Number [place] (ABNORMAL) A.M.A. LIPID PANEL (12/31/2002 5:09 AM 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) [facility] Method Time Signature Comments DNR [facility] Triglycerides 298 (H) <150 MG/DL [facility] Cholesterol 222 (H) <200 MG/DL [facility] Cholesterol 52 PERCENTILE [facility] Percentile HDL Cholesterol 37 (L) >39 MG/DL [facility] LDL Cholesterol 125 <130 MG/DL [facility] Calculated Comment: LDL CHOLESTEROL (MG/DL) GOALS [...] ?DRUG OPTIONAL) Cholesterol/HDL Ratio 6.0 (H) <5.0 [facility] Specimen (Source) Anatomical Location Collection Method / Collectio n Time Received Time / Laterality Volume 12/30/2002 Fabricio Nicole MD LABORATORY Performing Organization Address City/State/ZIP Code Phon e Number [place] A.M.A. COMPREHENSIVE MET.PANEL (12/31/2002 5:09 AM 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) athologist Signature Comments DNR [place] Glucose 93 65 - 109 [place] MG/DL Sodium 141 135 - 146 [place] MMOL/L Potassium 5.1 3.5 - 5.3 [place] MMOL/L Chloride 106 98 - 110 [place] MMOL/L Urea Nitrogen 14 7 - 25 [place] MG/DL Creatinine 1.1 0.5 - 1.4 [place] MG/DL BUN/Creatinine 13 6 - 25 [place] Ratio Calcium 9.5 8.5 - 10.4 [place] MG/DL Protein Total 7.4 6.0 - 8.3 [facility] G/DL Albumin 4.4 3.5 - 4.9 [facility] G/DL Globulin 3.0 2.2 - 4.2 [facility] Calculated G/DL A/G Ratio 1.5 0.8 - 2.0 [facility] Bilirubin Total 0.9 0.2 - 1.5 [facility] MG/DL Alkaline 101 20 - 125 [facility] Phosphatase U/L AST 25 2 - 50 U/L [facility] ALT 30 2 - 60 U/L [facility] Carbon Dioxide 26 21 - 33 [facility] MMOL/L Specimen (Source) Anatomical Location Collection Method / Collectio n Time Received Time / Laterality Volume 12/30/2002 Fabricio Nicole MD LABORATORY Performing Organization Address City/[facility]/ZIP Code Phon e Number [place] (ABNORMAL) HEMOGLOBIN (12/30/2002 9:46 AM 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) athologist Signature Hemoglobin 13.4 (A) 14 - 18 [facility] GM/DL Narrative [facility] INTER[facility] - 12/30/2002 9:46 AM 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 reran x2 Fabricio Nicole MD LABORATORY Performing Organization Address City/State/ZIP Code Phon e Number [facility] ELECTROCARDIOGRAM, COMP W/READ (12/30/2002 9:41 AM 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) Specimen (Source) Anatomical Collection Method Collection Time Re ceived Time Location / / Volume Laterality 12/30/2002 9:41 AM 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 Narrative This result has an attachment that is no t available. Fabricio Nicole MD EKG TECHNICAL Performing Organization Address City/[facility]/ZIP Code Phon e Number [facility] INTER[facility] BREATHING [...] prostate documented in this encounter Care Teams Non Linear Editor Relationship Specialty Start Date End Date Nasir Nicole MD PCP - General 02/18/99 10/06/13 [facility] [address] [place] [address] documented as of this encounter
--- OUTSIDE RECORDS SUMMARY | 2021-12-08 09:43 | XMS_ITS | Encounter Summary ---
:1945 Author Organization [place] Address [address] [place] [address] Care Team Providers Name Role Phone Nasir Nicole MD Primary Care Provider [phone] Reason for Referral - Closed Specialty Diagnoses / Procedures Referred By Contact Refer red To Contact Orthopedics Diagnoses Pain in limb Fabricio Nicole MD Simonet, William T, [place] [address] [facility] [place], [place] [address] [place] [address] [place] [address] Phone: Fax: Referral ID Status Reason Start Date Expiration Date Visits Requ ested Visits Authorized [id number] Closed 03/31/2002 02/04/2011 1 1 URY CRACKING TESTER Reason for Visit Reason Comments Referral Encounter Details Date Type Department Care Team Description 03/31/2002 Telephone Fabricio Mujica MD Referral Physicians [id number] [place] [address] [place] [address] [address] [place] [address] [phone] Social History Tobacco Use Types Packs/Day Years Used Date Smoking Tobacco: Former Cigarettes Quit : 02/06/1984 Alcohol Use Standard Drinks/Week Comments Yes 1.7 (1 standard drink = 0.6 oz pure alco hol) Sex Assigned at Date Recorded Male 01/15/2018 11:39 PM MERCURY CRACKING TESTER documented as of this encounter Miscellaneous Notes Telephone Encounter - 03/31/2002 11:59 PM MERCURY CRACKING TESTER >> MAURICE BOSWELL Mon Mar 31, 2002 2:42 PM Pt given information for Dr. Rushing. >> FABRICIO NICOLE Mon Mar 31, 2002 12:45 PM OK to set him up with Dr. Rushing >> MAURICE BOSWELL Mon Mar 31, 2002 12:15 PM >> CALL RECEIVED. Contact: [phone] Pt calling clinic support mal in regards to the following: He was in to see you last week for leg problem. Pt would now like referral for this. documented in this encounter Plan of Treatment Not on filedocumented as of this encounter Procedures Procedure Name Priority Date/Time Associated Diagnosis Comme [facility] ORTHOPEDICS ADULT REFERRAL Routine 04/01/2002 Pain In Limb documented in this encounter Results CONSULT TO ORTHOPEDICS (04/01/2002) Narrative This result has an attachment that is no t available. Fabricio Nicole MD REFERRAL documented in this encounter Visit Diagnoses Diagnosis Pain in limb - Primary documented in this encounter Care Teams Transit Vehicle Inspector Relationship Specialty Start Date End Date Nasir Nicole MD PCP - General 02/18/99 10/06/13 [facility] [address] [place] [address] documented as of this encounter
--- OUTSIDE RECORDS SUMMARY | 2021-12-08 09:43 | XMS_ITS | Encounter Summary ---
:1945 Author Organization [place] Address [facility] [place] [address] Care Team Providers Name Role Phone Nasir Velazquez MD Primary Care Provider [phone] Reason for Visit Reason Comments Musculoskeletal Problem Left thumb soreness Musculoskeletal Problem Left shoulder spasms Encounter Details Date Type Department Care Team Description 05/27/2002 Office Visit [facility] Dawit Tony ASHLIE [facility] Shantel Farley MD (Primary Dx) [address] [place] [address] Social History Tobacco Use Types Packs/Day Years Used Date Smoking Tobacco: Former Cigarettes Quit : 02/06/1984 Alcohol Use Standard Drinks/Week Comments Yes 1.7 (1 standard drink = 0.6 oz pure alco hol) Sex Assigned at Date Recorded Male 01/15/2018 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 Examination findings: t line inspector finger, left index thumb, tender at base, [...] Primary documented in this encounter Care Teams Parts Sales Manager Relationship Specialty Start Date End Date Nasir Velazquez MD PCP - General 02/18/99 10/06/13 [place] [address] [place] [address] documented as of this encounter
--- OUTSIDE RECORDS SUMMARY | 2021-12-08 09:43 | XMS_ITS | Encounter Summary ---
:1945 Author Organization [place] Address [address] [facility] [place] [address] Care Team Providers Name Role Phone Nasir Velazquez MD Primary Care Provider Reason for Visit Reason Comments Refill Request Derm Problem lesion right tenriism area Encounter Details Date Type Department Care Team Description 11/12/2001 Office Visit [place] Diogo Arnold SEBNATANAEL IC KERATOSIS NOS (Primary Dx); Physicians MD Bob SCREENING-LIPOID DISORDERS; [address] [place] [id number] [place] [facility] RHINITIS NOS; [address] HYPERTROPHY (BENIGN) [place] [address] [phone] (Wo rk) Social History Tobacco Use Types Packs/Day Years Used Date Smoking Tobacco: Former Cigarettes Quit : 02/06/1984 Alcohol Use Standard Drinks/Week Comments Yes 1.7 (1 standard drink = 0.6 oz pure alco hol) Sex Assigned at Date Recorded Male 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 Derm Problem - lesion right tenriism area. It has benign appea deric, with [...] you to look at lesion on right tenriism area. documented in this encounter Plan of Treatment Not on filedocumented as of this encounter Visit Diagnoses Diagnosis Other seborrheic keratosis - Primary Screening for lipoid disorders Allergic rhinitis, cause unspecified HYPERTROPHY (BENIGN) PROSTATE Hypertrophy (benign) of prostate documented in this encounter Care Teams Chalk Cutter Relationship Specialty Start Date End Date Nasir Velazquez MD PCP - General 02/18/99 10/06/13 [facility] [address] [place] [address] documented as of this encounter
--- OUTSIDE RECORDS SUMMARY | 2021-12-08 09:43 | XMS_ITS | Encounter Summary ---
:1945 Author Organization [place] Address [address] [facility] [place] [address] Care Team Providers Name Role Phone Nasir Velazquez MD Primary Care Provider [phone] Encounter Details Date Type Department Care Team Description 11/11/2002 Orders Only [facility] Nasir Velazquez DIAGNO SIS NOT YET Clinic [place] MD Geraldo DEFINED (Primary Dx) [address] 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 [Entered: interfaces, interfaces (FV Int erface) [...] time. HECTOR MALDONADO MD MT: lisha Document: ??[id number] [place], [place] Name: LO NEUMANN ENDOSCOPY REPORT Page 2 of 1 LCN: ENDO DSC: 11/11/2002 [place], [place] Name: LO NEUMANN MR#: : Procedure Date: [id number] 1945 11/11/2002 Doctor: HECTOR MALDONADO MD ENDOSCOPY REPORT Page 1 of 1 Nasir Velazquez MD PROCEDURES SURGICAL PATHOLOGY (11/11/2002) Specimen (Source) Anatomical Location Collection Method / Collectio n Time Received Time / Laterality Volume 11/11/2002 Impressions MISYS - 11/11/2002 CASE: [id number] MR#: [id number] Patient Name: LO NEUMANN. Collected: 11/11/02 Received: [...] Primary documented in this encounter Care Teams Certified Surgical Technician Relationship Specialty Start Date End Date Nasir Velazquez MD PCP - General 02/18/99 10/06/13 [place] [id number] [place] [address] documented as of this encounter
--- OUTSIDE RECORDS SUMMARY | 2021-12-08 09:43 | XMS_ITS | Encounter Summary ---
:1945 Author Organization [place] Address [address] [facility] [place] [address] Care Team Providers Name Role Phone Nasir Velazquez MD Primary Care Provider [phone] Encounter Details Date Type Department Care Team Description 03/06/2002 Telephone [facility] Diogo Velazquez MD Physicians [id number] [facility] [address] [place] [address] [address] [place] [address] [phone] Social History Tobacco Use Types Packs/Day Years Used Date Smoking Tobacco: Former Cigarettes Quit : 02/06/1984 Alcohol Use Standard Drinks/Week Comments Yes 1.7 (1 standard drink = 0.6 oz pure alco hol) Sex Assigned at Date Recorded Male 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 [...] not better in 24 hrs. >> HENRIETTA JOSEPH Jenn Mar 06, 2002 4:31 PM Staff Message copied by HENRIETTA JOSEPH on 03/06/2002 at 4:31 PM ------ Message from: MADDISON GARCIA Created: 03/06/2002 at 3:56 PM Regarding: laryngitis, sore throat Contact: Terry called and barely has a voice, and his throat is sore. He is wondering if there is anything he can do for it, (like taking something [id number], or just doing something for it) or if he should make an appt. to come in tonight. His work # is listed above and he will be there until 11:00 tonight. If he does not need to come in, he said you can leave a message at his home # which is [phone]. documented in this encounter Plan of Treatment Not on filedocumented as of this encounter Visit Diagnoses Not on filedocumented in this encounter Care Teams Weight Inspector Relationship Specialty Start Date End Date Nasir Velazquez MD PCP - General 02/18/99 10/06/13 [facility] [address] [place] [address] documented as of this encounter
--- OUTSIDE RECORDS SUMMARY | 2021-12-08 09:43 | XMS_ITS | Encounter Summary ---
:1945 Author Organization [place] Address [facility] [place] [address] Care Team Providers Name Role Phone Nasir Velazquez MD Primary Care Provider [phone] Reason for Visit Reason Comments Referral Colonoscopy Encounter Details Date Type Department Care Team Description 10/27/2002 Telephone [facility] Tana, Carito Luther (Colonoscopy) Physicians [address] XXX RETIRED XXX [address] [place], [place] [address] [place], [place] [phone] [address] (Wo rk) Social History Tobacco Use Types Packs/Day Years Used Date Smoking Tobacco: Former Cigarettes Quit : 02/06/1984 Alcohol Use Standard Drinks/Week Comments Yes 1.7 (1 standard drink = 0.6 oz pure alco hol) Sex Assigned at Date Recorded Male 01/15/2018 11:39 PM 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 Not sure if he wants to wait that long. Might make appt with . Will call me back so I know who & where to do the referral. >> ONIEL BARRIOS SunOct 29, 2002 2:[address] Rodriguez # [phone] >> ONIEL BARRIOS SunOct 29, 2002 2:18 PM Left patient a message to call clinic. >> FABRICIO BONNIE SunOct 28, 2002 11:47 AM Have him [...] see who is in his plan. To Jeormy- pt. will be calling >> ONIEL BARRIOS [...] to choose the colonscopy. Call him at [phone] to help with scheduling. Ariella documented in this encounter Plan of Treatment Not on filedocumented as of this encounter Visit Diagnoses Not on filedocumented in this encounter Care Teams Sales And Marketing Associate Relationship Specialty Start Date End Date Nasir Velazquez MD PCP - General 02/18/99 10/06/13 [facility] [address] [place] [address] documented as of this encounter
--- OUTSIDE RECORDS SUMMARY | 2021-12-08 09:43 | XMS_ITS | Encounter Summary ---
:1945 Author Organization [place] Address [address] [facility] [place] [address] Care Team Providers Name Role Phone Nasir Velazquez MD Primary Care Provider [phone] Reason for Visit Reason Comments Blood Draw Encounter Details Date Type Department Care Team Description 02/17/2002 Orders Only [facility] Diogo Velazquez SC REENING-LIPOID Physicians DISORDERS (Primary [address] [address] [facility] Dx) [address] [place] [address] [phone] Social History Tobacco Use Types Packs/Day Years Used Date Smoking Tobacco: Former Cigarettes Quit : 02/06/1984 Alcohol Use Standard Drinks/Week Comments Yes 1.7 (1 standard drink = 0.6 oz pure alco hol) Sex Assigned at Date Recorded Male 01/15/2018 11:39 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 HC VENOUS COLLECTION Routine 02/17/2002 9:07 AM Screening-Lipo id INSTALLATIONS INSPECTOR Disorders documented in this encounter Results (ABNORMAL) A.M.A. LIPID PANEL (02/17/2002 9:07 AM INSTALLATIONS INSPECTOR) [facility] Method Time Signature Comments DNR [facility] [...] ELEVATION). FROM NCEP ATP-III REPORT, SHYAM Plascencia 2001. RISK CATEGORY ?LDL GOAL ?LDL TO ? [...] / Volume Laterality 02/17/2002 9:07 AM 3 INSTALLATIONS INSPECTOR Diogo Velazquez MD LABORATORY Performing Organization Address City/State/ZIP Code [facility] e Number [facility] documented in this encounter Visit Diagnoses Diagnosis Screening for lipoid disorders - Primary documented in this encounter Care Teams Map Maker Relationship Specialty Start Date End Date Nasir Velazquez MD PCP - General 02/18/99 10/06/13 [facility] [address] [place] [address] documented as of this encounter
--- OUTSIDE RECORDS SUMMARY | 2021-12-08 09:43 | XMS_ITS | Encounter Summary ---
:1945 Author Organization [place] Address [address] [facility] [address] Care Team Providers Name Role Phone Nasir Velazquez MD Primary Care Provider [phone] Reason for Visit Reason Comments Thumb Discomfort Encounter Details Date Type Department Care Team Description 07/17/2002 Office Visit Diogo Mujica TRIGGER FINGER (Primary Dx); Physicians MD Bob ALLERGIC RHINITIS NOS; [address] [id number] [place] [facility] [address] [place] [address] [phone] (Wo rk) Social History Tobacco Use Types Packs/Day Years Used Date Smoking Tobacco: Former Cigarettes Quit : 02/06/1984 Alcohol Use Standard Drinks/Week Comments Yes 1.7 (1 standard drink = 0.6 oz pure alco hol) Sex Assigned at Date Recorded Male 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 [...] anus documented in this encounter Care Teams Fringing Machine Operator Relationship Specialty Start Date End Date Nasir Velazquez MD PCP - General 02/18/99 10/06/13 [address] [place] [address] documented as of this encounter
--- OUTSIDE RECORDS SUMMARY | 2021-12-08 09:44 | XMS_ITS | Encounter Summary ---
:1945 Author Organization [place] Address [address] [facility] [place] [address] Care Team Providers Name Role Phone Nasir Nicole MD Primary Care Provider [phone] Reason for Visit Reason Comments Pt. Information/instruction Derm Problem Encounter Details Date Type Department Care Team Description 09/28/2000 Telephone [facility] Fabricio Nicole, Pt . 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 Pt.stated Lac Hydrin 12% is not OTC. Modules accepted: Progress Notes >> TEZ BLEVINS SunSep 28, 2000 12:10 PM Left message on machine with instruction per pt request. >> SARAH DOMINGUEZ BONNIE SunSep 28, 2000 10:01 AM >> CALL RECEIVED. Contact: I think it was on the after visit negro richard he was given. Lac Hydrin 12%. Apply bid. Usually available without a prescription. OK to ca ll it in if that is not true. [...] DO. PLEASE CALL HIM ON AY AT [phone]. THIS IS THE HOME # HE CANNOT BE REACHED AT WORK. PLEASE LEAVE DIRECTION FOR HIM ON THE VOICE MAIL. (RX, O.T.C. ETC.) documented in this encounter Plan of Treatment Not on filedocumented as of this encounter Visit Diagnoses Not on filedocumented in this encounter Care Teams Flower Shop Manager Relationship Specialty Start Date End Date Nasir Nicole MD PCP - General 02/18/99 10/06/13 [facility] [address] [place] [address] documented as of this encounter
--- OUTSIDE RECORDS SUMMARY | 2021-12-08 09:44 | XMS_ITS | Encounter Summary ---
:1945 Author Organization [place] Address [address] [place] [address] Care Team Providers Name Role Phone Nasir Velazquez MD Primary Care Provider Reason for Referral - Closed Specialty Diagnoses / Procedures Referred By Contact Refer red To Contact Dermatology Diagnoses Actinic keratosis Diogo Velazquez MD George, [place], [place] [address] [facility] [place], [place] [address] [place] [address] [place] [address] Phone: Fax: Referral ID Status Reason Start Date Expiration Date Visits Requ ested Visits Authorized [id number] Closed 09/26/2000 02/04/2011 1 1 Reason for Visit Reason Comments Derm Problem needs referral for f/u skin problem Pain c/o calus on bottom of L yoli t Encounter Details Date Type Department Care Team Description 09/26/2000 Office Visit Diogo Mujica ACTINIC KERATOSIS; Physicians MD Bob CORNS AND CALLOSITIES; [address] [place] [id number] [facility] [address] [place] [address] [phone] (Wo rk) Social History Tobacco Use Types [...] Nursing Notes 09/26/2000 4:00 PM CDT >> CHHIM, UON 09/26/2000 4:35 pm Questioned patient about current smoking habits. Pt. has never smoked. documented in this encounter Plan of Treatment Scheduled Orders Name Type Priority Associated Diagnoses Order S chedule X-RAY FOOT 3+ VW Imaging Routine Corns And Callosities Or dered: 09/26/2000 documented as of this encounter Visit Diagnoses Diagnosis Actinic keratosis Corns and callosities Bunion documented in this encounter Care Teams Aircraft Communicator Relationship Specialty Start Date End Date Nasir Velazquez MD PCP - General 02/18/99 10/06/13 [facility] [address] [place] [address] documented as of this encounter
--- OUTSIDE RECORDS SUMMARY | 2021-12-08 09:44 | XMS_ITS | Encounter Summary ---
:1945 Author Organization [place] Address [address] [facility] [place] [address] Care Team Providers Name Role Phone Nasir Velazquez MD Primary Care Provider [phone] Reason for Referral - Closed Specialty Diagnoses / Procedures Referred By Contact Refer red To Contact Dermatology Diagnoses Actinic keratosis Diogo Velazquez [place] 518[address] [place], [place] [address] Referral ID Status Reason Start Date Expiration Date Visits Requ ested Visits Authorized [id number] Closed 10/06/1999 02/04/2011 1 1 - Closed Specialty Diagnoses / Procedures Referred By Contact Refer red To Contact Radiology Diagnoses Hematuria Abdominal pain, right lower quadrant Abdominal pain, other specified [place] Diogo Velazquez [place] 768[address] [place], [place] [address] Referral ID Status Reason Start Date Expiration Date Visits Requ ested Visits Authorized [id number] Closed 10/06/1999 02/04/2011 1 1 Reason for Visit Reason Comments Abdominal Pain c/o pain in stomache area no brayden in in testicle area x 6 months sx more Encounter Details Date Type Department Care Team Description 10/06/1999 Office Visit Diogo Mujica ABDOMINA L PAIN RLQ; Physicians MD Bob Pain in groin; [address] [address] [place] MIXED HYPERLIPIDEMIA; [address] [place]; [place], [place] ACTINIC KE RATOSIS [address] [phone] (Wo rk) Social History Tobacco Use Types Packs/Day Years Used Date Smoking Tobacco: Former Cigarettes Quit : 02/06/1984 Alcohol Use Standard Drinks/Week Comments Yes 1.7 (1 standard drink = 0.6 oz pure alco hol) Sex Assigned at Date Recorded Male 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 this is set up. We [...] following: IVP Date: 10-07-99 Time: 8:00am Place: [facility] >> GUS JOHNSON 10/06/1999 9:33 am Questioned patient about current smoking habits. Pt. quit smoking some time ago. documented in this encounter Plan of Treatment Not on filedocumented as of this encounter Procedures Procedure Name Priority Date/Time Associated Comments Diagnosis ADULT DERMATOLOGY Routine 11/03/1999 Actinic Keratosis REFERRAL [facility] PSA, DIAGNOSTIC Routine 10/07/1999 7:07 AM Abdominal [...] Signature Sanches PSA 0.3 0.0 - 4.0 [facility] NG/ML Specimen (Source) Anatomical Location Collection Method / Collectio n Time Received Time / Laterality Volume 10/06/1999 Narrative [facility] - 10/07/1999 7:07 AM CDT PSA RESULTS BETWEEN 4.0 AND 8.0 NG/ML MAY INDICATE BENIGN PROSTATIC HYPERTROPHY OR CANCER OF THE P ROSTATE. RESULTS GREATER THAN 8.0 NG/ML ARE MORE SUGGESTI VE OF PROSTATIC CANCER AND SHOULD BE EVALUATED WITH MIRELLA FAITH-UP STUDIES. Diogo Velazquez MD LABORATORY Performing Organization Address City/State/ZIP Code Phon e Number [facility] COMPREHENSIVE METABOLIC PANEL (10/07/1999 6:34 AM CDT) athologist Signature Comments DNR [facility] Glucose 98 65 - 109 [facility] MG/DL Sodium 141 133 - 145 [facility] MMOL/L Potassium 4.6 3.4 - 5.1 [facility] MMOL/L Chloride 106 96 - 108 [facility] MMOL/L Urea Nitrogen 13 9 - 24 [facility] MG/DL Creatinine 1.2 0.8 - 1.4 [facility] MG/DL BUN/Creatinine 10.8 [facility] Ratio Calcium 9.2 8.4 - 10.3 [facility] MG/DL Protein Total 6.7 6.2 - 8.2 [facility] GM/DL Albumin 4.2 3.7 - 5.2 [facility] GM/DL Globulin 2.5 1.9 - 3.6 [facility] Calculated GM/DL A/G Ratio 1.7 1.1 - 2.3 [facility] Bilirubin Total 0.34 0.30 - [facility] 1.40 MG/DL Alkaline 98 42 - 137 [facility] Phosphatase U/L AST 22 1 - 45 [facility] IU/L ALT 23 1 - 60 [facility] IU/L Carbon Dioxide 27.8 21.7 - [facility] 30.9 MMOL/L Specimen (Source) Anatomical Location Collection Method / Collectio n Time Received Time / Laterality Volume 10/06/1999 Diogo Velazquez MD LABORATORY Performing Organization Address City/State/ZIP Code Phon e Number [facility] CONSULT TO RADIOLOGY (10/07/1999) Diogo Velazquez MD REFERRAL URINALYSIS (10/06/1999 10:03 AM CDT) Patholo gist Method Time Signature Color Urine yellow [facility] INTERNAL Appearance Urine clear [facility] INTERNAL Glucose Urine neg [facility] INTERNAL Bilirubin Urine neg BFP INTERNAL Ketones Urine neg BFP INTERNAL Specific [place] 1.015 [facility] INTERNAL Blood Urine neg BFP [...] keratosis documented in this encounter Care Teams Cardiac Cath Tech Relationship Specialty Start Date End Date Nasir Velazquez MD PCP - General 02/18/99 10/06/[address] [address] documented as of this encounter
--- OUTSIDE RECORDS SUMMARY | 2021-12-08 09:44 | XMS_ITS | Encounter Summary ---
:1945 Author Organization [place] Address [facility] [place] [address] Care Team Providers Name Role Phone Nasir Velazquez MD Primary Care Provider [phone] Reason for Visit Reason Comments Back Pain Encounter Details Date Type Department Care Team Description 04/20/2001 Office Visit [facility] Sharath [facility]; Physicians MD Geoff SPASM OF MUSCLE; [address] XXX RETIRED XXX LUMBAGO [address] [place], [place] [address] [place], [place] [phone] [address] (Wo rk) Social History Tobacco Use Types Packs/Day Years Used Date Smoking Tobacco: Former Cigarettes Quit : 02/06/1984 Alcohol Use Standard Drinks/Week Comments Yes 1.7 (1 standard drink = 0.6 oz pure alco hol) Sex Assigned at Date Recorded Male 01/15/2018 11:39 PM 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 documented as of this encounter Last Filed Vital Signs Vital Sign Reading Time Taken Comments Blood Pressure 130/80 04/20/2001 10:15 AM 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 Pulse - - Temperature 36.3 ??C (97.3 ??F) 04/20/2001 10:15 AM 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 Respiratory Rate 16 04/20/2001 10:15 AM 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 Oxygen Saturation - - Inhaled Oxygen Concentration - - Weight 85.3 kg (188 lb) 04/20/2001 10:15 AM 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 Height - - Body Mass Index 26.98 09/16/1999 10:45 AM CDT documented in this encounter Progress Notes 04/20/2001 10:15 AM 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 SPRAIN LUMBAR REGION [847.2] SPASM OF MUSCLE [...] more definitive. OBI DAVIS M.D. Certified - [employer] [employer] Accredited for Mammography - [employer] MJG/rs dt: ??04/24/01 ? Sharath Nam MD GENERAL IMAGING documented in this encounter Visit Diagnoses Diagnosis Sprain of lumbar region Spasm of muscle Lumbago documented in this encounter Care Teams Railway Patrol Officer Relationship Specialty Start Date End Date Nasir Velazquez MD PCP - General 02/18/99 10/06/13 [facility] [address] [place] [address] documented as of this encounter
--- OUTSIDE RECORDS SUMMARY | 2021-12-08 09:44 | XMS_ITS | Encounter Summary ---
:1945 Author Organization [place] Address [address] [facility] [place] [address] Care Team Providers Name Role Phone Nasir Velazquez MD Primary Care Provider [phone] Encounter Details Date Type Department Care Team Description 04/26/2001 Telephone [facility] Diogo Velazquez MD Physicians [id number] [facility] [address] [place] [address] [address] [place] [address] [phone] Social History Tobacco Use Types Packs/Day Years Used Date Smoking Tobacco: Former Cigarettes Quit : 02/06/1984 Alcohol Use Standard Drinks/Week Comments Yes 1.7 (1 standard drink = 0.6 oz pure alco hol) Sex Assigned at Date Recorded Male 01/15/2018 11:[address] 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 [...] Administrator Relationship Specialty Start Date End Date Nasri Velazquez MD PCP - General 02/18/99 10/06/13 [address] [place] [address] documented as of this encounter
--- OUTSIDE RECORDS SUMMARY | 2021-12-08 09:44 | XMS_ITS | Encounter Summary ---
:1945 Author Organization [place] Address [address] [facility] [place] [address] Care Team Providers Name Role Phone Nasir Velazquez MD Primary Care Provider [phone] Reason for Visit Reason Comments Results Encounter Details Date Type Department Care Team Description 10/07/[address] 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 - Ariella Lazaro [...] on filedocumented in this encounter Care Teams Environmental Control Administrator Relationship Specialty Start Date End Date Nasir Velazquez MD PCP - General 02/18/99 10/06/13 [address] [place] [address] documented as of this encounter
--- OUTSIDE RECORDS SUMMARY | 2021-12-08 09:44 | XMS_ITS | Encounter Summary ---
:1945 Author Organization [place] Address [address] [facility] [address] Care Team Providers Name Role Phone Nasir Velazquez MD Primary Care Provider [phone] Reason for Visit Reason Comments Sinus Problem Ear Problem Encounter Details Date Type Department Care Team Description 02/10/2000 Office Visit [place] Diogo Arnold ALLERGIC RHINITIS NOS; Physicians MD Bob HYPERTROPHY (BENIGN) PROSTATE [address] [facility] [address] [place] [address] [place] [address] (Wo rk) Social History Tobacco Use Types Packs/Day Years Used Date Smoking Tobacco: Former Cigarettes Quit : 02/06/1984 Alcohol Use Standard Drinks/Week Comments Yes 1.7 (1 standard drink = 0.6 oz pure alco hol) Sex Assigned at Date Recorded Male 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 c/o sinus pressure and congestion. He [...] prostate documented in this encounter Care Teams Rural Mail Contractor Relationship Specialty Start Date End Date Nasir Velazquez MD PCP - General 02/18/99 10/06/[address] [address] documented as of this encounter
--- OUTSIDE RECORDS SUMMARY | 2021-12-08 09:44 | XMS_ITS | Encounter Summary ---
:1945 Author Organization [place] Address [address] [facility] [place] [address] Care Team Providers Name Role Phone Nasir Nicole MD Primary Care Provider [phone] Reason for Visit Reason Comments Refill Request [facility] [phone] Encounter Details Date Type Department Care Team Description 05/08/2000 Refill [facility] Fabricio Nicole, Re fill Request Physicians ([facility] pharmacy [address] [address] [facility] [phone]) [address] [place] [address] [place], [place] [phone] (Wo rk) [address] [phone] Social History Tobacco Use Types Packs/Day Years Used Date Smoking Tobacco: Former Cigarettes Quit : 02/06/1984 Alcohol Use Standard Drinks/Week Comments Yes 1.7 (1 standard drink = 0.6 oz pure alco hol) Sex Assigned at Date Recorded Male 01/15/2018 11:39 PM 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 Contact: [facility] [phone] - Starla Lan Started and completed on SunMay 08, 2000 8:42 AM documented in this encounter Plan of Treatment Not on filedocumented as of this encounter Visit Diagnoses Not on filedocumented in this encounter Care Teams Bed Setter Relationship Specialty Start Date End Date Nasir Niocle MD PCP - General 02/18/99 10/06/13 [address] [place] [address] documented as of this encounter
--- OUTSIDE RECORDS SUMMARY | 2021-12-08 09:44 | XMS_ITS | Encounter Summary ---
:1945 Author Organization [place] Address [address] [place] [address] Care Team Providers Name Role Phone Nasir Velazquez MD Primary Care Provider [phone] Reason for Visit Reason Comments Cough c/o clear phlegmy cough x 9 days. No fever. 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
--- OUTSIDE RECORDS SUMMARY | 2021-12-08 09:44 | XMS_ITS | Encounter Summary ---
:1945 Author Organization [place] Address [address] [place] [address] Care Team Providers Name Role Phone Nasir Velazquez MD Primary Care Provider [phone] Reason for Referral - Closed Specialty Diagnoses / Procedures Referred By Contact Refer red To Contact Urology Diagnoses Unspecified disorder of male genital organs Diogo Velazquez MD Fallen, Marlon Castro MD [id number] [facility] [place], [place] [address] [place] [address] [place], [place] [address] Phone: Fax: Referral ID Status Reason Start Date Expiration Date Visits Requ ested Visits Authorized [id number] Closed 12/26/1999 02/04/2011 1 1 NT CHILDCARE PROVIDER - Closed Specialty Diagnoses / Procedures Referred By Contact Refer red To Contact Orthopedics Diagnoses Pain in joint, pelvic region and thigh Diogo Velazquez MD Simonet, Lux Rg [place] [id number] [facility] [place], [place] [address] [place] [address] Phone: Fax: Referral ID Status Reason Start Date Expiration Date Visits Requ ested Visits Authorized [id number] Closed 12/26/1999 02/04/2011 1 1 NT CHILDCARE PROVIDER Reason for Visit Reason Comments RECHECK Pain Encounter Details Date Type Department Care Team Description 12/26/1999 Office Visit Diogo Mujica JOINT PA IN-PELVIS (Primary Dx); Physicians MD Bob Pain in scrotum [id number] [place] [address] [address] [place] [address] [phone] (Wo rk) Social History Tobacco Use Types Packs/Day Years Used Date Smoking Tobacco: Former Cigarettes Quit : 02/06/1984 Alcohol Use Standard Drinks/Week Comments Yes 1.7 (1 standard drink = 0.6 oz pure alco hol) Sex Assigned at Date Recorded Male 01/15/2018 11:39 PM 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 documented as of this encounter Last Filed Vital Signs Vital Sign Reading Time Taken Comments Blood Pressure 132/74 12/26/1999 11:45 AM 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 Pulse - - Temperature 37.3 ??C (99.2 ??F) 12/26/1999 11:45 AM 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 Respiratory Rate - - Oxygen Saturation - - Inhaled Oxygen Concentration - - Weight 79.8 kg (176 lb) 12/26/1999 11:45 AM 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 Height - - Body Mass Index 25.25 09/16/1999 10:45 AM CDT documented in this encounter Progress Notes 12/26/1999 11:45 AM 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 Just finishing his buildup up Cardura, which [...] ans documented in this encounter Care Teams Logistics Team Leader Relationship Specialty Start Date End Date Nasir Velazquez MD PCP - General 02/18/99 10/06/13 [facility] [address] [place] [address] documented as of this encounter
--- OUTSIDE RECORDS SUMMARY | 2021-12-08 09:44 | XMS_ITS | Encounter Summary ---
:1945 Author Organization [place] Address [address] [facility] [place] [address] Care Team Providers Name Role Phone Nasir Velazquez MD Primary Care Provider [phone] Reason for Visit Reason Comments Results here to discuss IVP result, update from urology appt. Pain talks about R hip pain x 1mo . 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 I went to the [facility] o [facility] at IVP film. IVP shows good head [...] encounter Results URINALYSIS (11/18/1999 12:14 PM CDT) [facility] Method Time Signature Color Urine lt. yellow BFP INTERNAL Appearance Urine clear BFP INTERNAL Glucose Urine neg BFP INTERNAL Bilirubin Urine neg BFP INTERNAL Ketones Urine neg BFP INTERNAL Specific [place] 1.020 BFP INTERNAL Blood Urine traced-karen BFP [...] thigh documented in this encounter Care Teams Skiver Counter Relationship Specialty Start Date End Date Nasir Velazquez MD PCP - General 02/18/99 10/06/13 [address] [place] [address] documented as of this encounter
--- OUTSIDE RECORDS SUMMARY | 2021-12-08 09:44 | XMS_ITS | Encounter Summary ---
:1945 Author Organization [place] Address [address] [facility] [address] Care Team Providers Name Role Phone Nasir Velazquez MD Primary Care Provider [phone] Reason for Visit Reason Comments Trauma Encounter Details Date Type Department Care Team Description 03/16/2000 Office Visit [place] Diogo Arnold FX DIST PHALANX, HAND-CLOSE; Physicians MD Bob HYPERTROPHY (BENIGN) PROSTATE [address] [facility] [place] [address] [place] [address] [phone] (Wo rk) Social History Tobacco Use Types Packs/Day Years Used Date Smoking Tobacco: Former Cigarettes Quit : 02/06/1984 Alcohol Use Standard Drinks/Week Comments Yes 1.7 (1 standard drink = 0.6 oz pure alco hol) Sex Assigned at Date Recorded Male 01/15/2018 11:39 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 injured his left middle finger this [...] prostate documented in this encounter Care Teams Customer Care Voice Consultant Relationship Specialty Start Date End Date Nasir Velazquez MD PCP - General 02/18/99 10/06/13 [facility] [address] [place] [address] documented as of this encounter
--- OUTSIDE RECORDS SUMMARY | 2021-12-08 09:44 | XMS_ITS | Encounter Summary ---
:1945 Author Organization [place] Address [address] [facility] [place] [address] Care Team Providers Name Role Phone Nasir Nicole MD Primary Care Provider [phone] Reason for Visit Reason Comments Cough recheck, not bettter Ulcer bacteria test? 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 The heart size is normal, and the pulmon sanaz vasculature is normal. CONCLUSION: ??Normal chest. OBI DAVIS M.D. Certified - [place] [employer] Accredited for Mammography - [employer] MJG/rb dt: ??07/03/00 [...] reflux documented in this encounter Care Teams Jd Edwards Consultant Relationship Specialty Start Date End Date Nasir Nicole MD PCP - General 02/18/99 10/06/13 [place] [address] [place] [address] documented as of this encounter
--- OUTSIDE RECORDS SUMMARY | 2021-12-08 09:44 | XMS_ITS | Encounter Summary ---
:1945 Author Organization [place] Address [facility] [place] [address] Care Team Providers Name Role Phone Nasir Velazquez MD Primary Care Provider [phone] Reason for Visit Reason Comments Nose Problem Encounter Details Date Type Department Care Team Description 03/23/2000 Telephone [facility] ysicians Estelle Messer LPN Nose Problem [address] [place] [address] Social History Tobacco Use Types Packs/Day Years Used Date Smoking Tobacco: Former Cigarettes Quit : 02/06/1984 Alcohol Use Standard Drinks/Week Comments Yes 1.7 (1 standard drink = 0.6 oz pure alco hol) Sex Assigned at Date Recorded Male 01/15/2018 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 informed of message. - Estelle Messer Started and completed on SunMar 23, 2000 4:57 PM May want to try ENT consult to have nose scoped & see if he needs a vessel cauterized. ------- - Dr. Diogo Velzaquez Started and completed on SunMar 23, 2000 [...] on filedocumented in this encounter Care Teams Batch And Furnace Operator Relationship Specialty Start Date End Date Nasir Velazquez MD PCP - General 02/18/99 10/06/[address] [address] documented as of this encounter
--- OUTSIDE RECORDS SUMMARY | 2021-12-08 09:44 | XMS_ITS | Encounter Summary ---
:1945 Author Organization [place] Address [facility] [place] [address] Care Team Providers Name Role Phone Nasir Velazquez MD Primary Care Provider [phone] Reason for Visit Reason Comments Pt. Information/instruction Encounter Details Date Type Department Care Team Description 02/13/2000 Telephone [facility] Estelle Messer LP N Pt. 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 Dillan Fajardo Started and completed on SunFeb 14, 2000 8:30 AM CALL RECEIVED. Contact: FYI: Stated he was seen on 02/09 for sinus problem and was told that he does not have sinus infection. C/o a slight headache. No other sx. Wants to know if ok to take Excedrin or Advil. Informed ok. ToJDR for BAB. - Estelle Gui Started and completed on SunFeb 13, 2000 5:09 PM Staff Message copied by ESTELLE MESSER on 02/13/2000 at 5:04 PM ------ Message from: ORACIO NORIEGA CALLED EARLIER FOR BAB OR NURSE. HAS A QUESTION. PHONE IS [phone]. THANKS! - Salvadorwayne Gui Started and completed on SunFeb 13, 2000 5:04 PM documented in this encounter Plan of Treatment Not on filedocumented as of this encounter Visit Diagnoses Not on filedocumented in this encounter Care Teams Plate Stacker Relationship Specialty Start Date End Date Nasir Velazquez MD PCP - General 02/18/99 10/06/[address] [address] documented as of this encounter
--- OUTSIDE RECORDS SUMMARY | 2021-12-08 09:44 | XMS_ITS | Encounter Summary ---
:1945 Author Organization [place] Address [address] [facility] [place] [address] Care Team Providers Name Role Phone Nasir Velazquez MD Primary Care Provider [phone] Reason for Referral - Closed Specialty Diagnoses / Procedures Referred By Contact Refer red To Contact Urology Diagnoses Hematuria Abdominal pain, right lower quadrant Diogo Velazquez MD Fallen, Marlon Castro MD [id number] [facility] [place]OLOG[place], [place] [address] [address] [facility] [address] [place], [place] [address] Phone: Fax: Referral ID Status Reason Start Date Expiration Date Visits Requ ested Visits Authorized [id number] Closed 10/14/1999 02/04/2011 1 1 Reason for Visit Reason Comments Lipids Results Encounter Details Date Type Department Care Team Description 10/14/1999 Office Visit [place] Diogo Velazquez MIXED HY PERLIPIDEMIA; Shantel Rojas MD ABDOMINAL PAIN RLQ; [address] [place] [address] [phone] (Wo rk) Social History Tobacco Use Types Packs/Day Years Used Date Smoking Tobacco: Former Cigarettes Quit : 02/06/1984 Alcohol Use Standard Drinks/Week Comments Yes 1.7 (1 standard drink = 0.6 oz pure alco hol) Sex Assigned at Date Recorded Male 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 LIPID PANEL (10/14/1999 10:30 AM CDT) [facility] Method Time Signature Comments DNR [place] Triglycerides 220 (H) 40 - 199 MG/DL [facility] [place] Cholesterol 184 120 - 199 [facility] MG/DL [place] Cholesterol 18 PERCENTILE [facility] Percentile [place] HDL Cholesterol 40.0 35ORHIGHER [facility] MG/DL [place] LDL Cholesterol 100 75 - 129 MG/DL [facility] Calculated [place] Comment: * CUTOFF VALUES RECOMMENDED BY THE [facility] CHOLESTEROL EDUCATION PROGRAM: ?LIPID ? DESIRAB LE [...] Address City/State/ZIP Code Phon e Number [facility] documented in this encounter Visit Diagnoses Diagnosis Mixed hyperlipidemia Abdominal pain, right lower quadrant Hematuria documented in this encounter Care Teams Risk Compliance Analyst Relationship Specialty Start Date End Date Nasir Velazquez MD PCP - General 02/18/99 10/06/13 [facility] [address] [place] [address] documented as of this encounter
--- OUTSIDE RECORDS SUMMARY | 2021-12-08 09:44 | XMS_ITS | Encounter Summary ---
:1945 Author Organization [place] Address [address] [facility] [place] [address] Care Team Providers Name Role Phone Nasir Nicole MD Primary Care Provider [phone] Reason for Referral - Closed Specialty Diagnoses / Procedures Referred By Contact Refer red To Contact ENT-Otolaryngology Diagnoses Chronic frontal sinusitis Fabricio Nicole MD [address] [place], [place] [address] Referral ID Status Reason Start Date Expiration Date Visits Requ ested Visits Authorized [id number] Closed 03/29/2000 02/04/2011 1 1 CONCIERGE Reason for Visit Reason Comments Sinus Problem Encounter Details Date Type Department Care Team Description 03/29/2000 Office Visit [place] Fabricio Nicole [facility] SINUSITIS Physicians MD Bob (Primary Dx) [address] [place] [address] [address] [phone] (Wo rk) Social History Tobacco Use Types Packs/Day Years Used Date Smoking Tobacco: Former Cigarettes Quit : 02/06/1984 Alcohol Use Standard Drinks/Week Comments Yes 1.7 (1 standard drink = 0.6 oz pure alco hol) Sex Assigned at Date Recorded Male 01/15/2018 11:39 PM SPA CONCIERGE documented as of this encounter Last Filed Vital Signs Vital Sign Reading Time Taken Comments Blood Pressure 144/92 03/29/2000 4:45 PM SPA CONCIERGE Pulse - - Temperature 36.3 ??C (97.4 ??F) 03/29/2000 4:45 PM SPA CONCIERGE Respiratory Rate - - Oxygen Saturation - - Inhaled Oxygen Concentration - - Weight 80.7 kg (178 lb) 03/29/2000 4:45 PM SPA CONCIERGE Height - - Body Mass Index 25.54 09/16/1999 10:45 AM CDT documented in this encounter Progress Notes 03/29/2000 4:45 PM SPA CONCIERGE Pt c/o continued sinus congestion x 6 [...] PLAN: CONSULT TO ENT [[id number]] Order #: [id number] Class: External referral Continue current medications for [...] OTOLARYNGOLOGY Routine 04/18/2000 Chr Frontal Sinusiti s WANT AD RECEIVER REFERRAL HC X-RAY SINUSES <3 VIEWS Routine [...] ??Normal sinus. OBI DAVIS M.D. Certified - [place] [employer] Accredited for Mammography - [place] MJG/rb dt: ??04/03/00 Fabricio Nicole MD GENERAL IMAGING documented in this encounter Visit Diagnoses Diagnosis Chronic frontal sinusitis - Primary documented in this encounter Care Teams Black Oxide Operator Relationship Specialty Start Date End Date Nasir Nicole MD PCP - General 02/18/99 10/06/13 [place] [address] [place] [address] documented as of this encounter
--- OUTSIDE RECORDS SUMMARY | 2021-12-08 09:44 | XMS_ITS | Encounter Summary ---
:1945 Author Organization [place] Address [address] [facility] [place] [address] Care Team Providers Name Role Phone Nasir Nicole MD Primary Care Provider [phone] Reason for Visit Reason Comments Refill Request Ria Chen Encounter Details Date Type Department Care Team Description 04/13/2001 Refill [facility] Fabricio Nicole, Carito fill Request Physicians (Ria Chen) [address] [address] [facility] [address] [place], [place] [address] [place] [address] (Wo rk) [address] [phone] Social History Tobacco Use Types Packs/Day Years Used Date Smoking Tobacco: Former Cigarettes Quit : 02/06/1984 Alcohol Use Standard Drinks/Week Comments Yes 1.7 (1 standard drink = 0.6 oz pure alco hol) Sex Assigned at Date Recorded Male 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
--- OUTSIDE RECORDS SUMMARY | 2021-12-08 09:45 | XMS_ITS | Encounter Summary ---
:1945 Author Organization [place] Address [address] [facility] [place] [address] Care Team Providers Name Role Phone Unavailable Primary Care Provider Unavailable Reason for Visit Reason Comments Allergies Claritin refill; discuss gaye g-term effects; Lab results discuss lab results 03/24/98 Derm Problem check lesion L forearm x 1 w k; Encounter Details Date Type Department Care Team Description 04/13/1998 Office Visit [facility] Diogo Velazquez ALLERGIC RHINITIS NOS Physicians MD Bob [address] [place] [address] [phone] (Wo rk) Social History Tobacco Use Types Packs/Day Years Used Date Smoking Tobacco: Former Cigarettes Quit : 02/06/1984 Alcohol Use Standard Drinks/Week Comments Yes 1.7 (1 standard drink = 0.6 oz pure alco hol) Sex Assigned at Date Recorded Male 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
--- OUTSIDE RECORDS SUMMARY | 2021-12-08 09:45 | XMS_ITS | Encounter Summary ---
:1945 Author Organization [place] Address [facility] [place] [address] Care Team Providers Name Role Phone Nasir Nicole MD Primary Care Provider [phone] Reason for Visit Reason Comments Refill Request Claritin pharm [phone] Encounter Details Date Type Department Care Team Description 04/28/1999 Telephone [facility] Estelle Messer LP N Refill Request (Claritin Physicians [phone] pharm [phone]) [address] [place] [address] (Work) [address] [place] [address] Social History Tobacco Use Types Packs/Day Years Used Date Smoking Tobacco: Former Cigarettes Quit : 02/06/1984 Alcohol Use Standard Drinks/Week Comments Yes 1.7 (1 standard drink = 0.6 oz pure alco hol) Sex Assigned at Date Recorded Male 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 Contact: Please clarify order. Claritin in [employer] has 11 refills, but start and end dates are 04/14/99. - Estelle Messer Started and completed on SunApr 28, 1999 3:24 PM documented in this encounter Plan of Treatment Not on filedocumented as of this encounter Visit Diagnoses Not on filedocumented in this encounter Care Teams Mainframe Systems Administrator Relationship Specialty Start Date End Date Nasir Nicole MD PCP - General 02/18/99 10/06/13 [place] [address] [place] [address] documented as of this encounter
--- OUTSIDE RECORDS SUMMARY | 2021-12-08 09:45 | XMS_ITS | Encounter Summary ---
:1945 Author Organization [place] Address [address] [facility] 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
--- OUTSIDE RECORDS SUMMARY | 2021-12-08 09:45 | XMS_ITS | Encounter Summary ---
:1945 Author Organization [place] Address [address] [facility] [place] [address] Care Team Providers Name Role Phone Unavailable Primary Care Provider Unavailable Reason for Visit Reason Comments Derm Problem check lesions on face Encounter Details Date Type Department Care Team Description 09/07/1998 Office Visit [facility] Diogo Velazquez AC TINIC KERATOSIS; Physicians SEBACEOUS CYST [address] [address] [facility] [address] [place] [address] [phone] Social History Tobacco Use Types Packs/Day Years Used Date Smoking Tobacco: Former Cigarettes Quit : 02/06/1984 Alcohol Use Standard Drinks/Week Comments Yes 1.7 (1 standard drink = 0.6 oz pure alco hol) Sex Assigned at Date Recorded Male 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
--- OUTSIDE RECORDS SUMMARY | 2021-12-08 09:45 | XMS_ITS | Encounter Summary ---
:1945 Author Organization [place] Address [address] [facility] [place] [address] Care Team Providers Name Role Phone Nasir Velazquez MD Primary Care Provider Reason for Visit Reason Comments Eye Problem Encounter Details Date Type Department Care Team Description 09/16/1999 [facility] CORNEAL FOREIGN BODY Physicians MD Bob (Primary Dx) [address] [id number] [place] [phone] (Wo rk) Social History Tobacco Use Types Packs/Day Years Used Date Smoking Tobacco: Former Cigarettes Quit : 02/06/1984 Alcohol Use Standard Drinks/Week Comments Yes 1.7 (1 standard drink = 0.6 oz pure alco hol) Sex Assigned at Date Recorded Male 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/2018 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 documented as of this encounter Last [...] Nursing Notes 09/16/1999 10:45 AM CDT >> DOMINGA ALEXANDER 09/16/1999 10:53 am pt c/o Lt eye pain, got something in it last pm, flushed out the eye last pm, some blurry vision, wears contacts Rt 20/20 Lt 20/100 B-20/20 with glasses documented in this encounter Plan of Treatment Not on filedocumented as of this encounter Visit Diagnoses Diagnosis Foreign body in cornea - Primary documented in this encounter Care Teams Search Consultant Relationship Specialty Start Date End Date Nasir Velazquez MD PCP - General 02/18/99 10/06/13 [facility] [address] [place] [address] documented as of this encounter
--- OUTSIDE RECORDS SUMMARY | 2021-12-08 09:45 | XMS_ITS | Encounter Summary ---
:1945 Author Organization [place] Address [facility]0 [facility] [place] [address] Care Team Providers Name Role Phone Nasir Velazquez MD Primary Care Provider [phone] Reason for Visit Reason Comments Pain c/o lower back pain / starte d yesterday carry salt bag quick movement Encounter Details Date Type Department Care Team Description 06/21/1999 Office Visit [facility]ogo [facility] Physicians MD Bob (Primary Dx) [address] [address] [phone] (Wo rk) Social History Tobacco Use Types Packs/Day Years Used Date Smoking Tobacco: Former Cigarettes Quit : 02/06/1984 Alcohol Use Standard Drinks/Week Comments Yes 1.7 (1 standard drink = 0.6 oz pure alco hol) Sex Assigned at Date Recorded Male 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
[2021-12-08 14:17] LABS: Albumin* 4.5 g/dL (3.3-5.0); Chloride* 105 mmol/L (96-114); Potassium* 4.2 mmol/L (3.6-5.1); Sodium* 142 mmol/L (135-149)
[2021-12-08 14:19] LABS: Aspartate Amino Transferase* 32 U/L (12-35); Bilirubin Total* 0.5 mg/dL (0.1-1.5); Blood Urea Nitrogen* 19 mg/dL (7-30); Carbon Dioxide* 24 mmol/L (20-32); Cholesterol* 140 mg/dL (90-199); Creatinine* 1.1 mg/dL (0.5-1.5); Estimated Glomerular Filt Rate 70 ml/min
[2021-12-08 14:20] LABS: Alanine Aminotransferase* 27 U/L (4-50); Alkaline Phosphatase* 103 U/L (40-150); Calcium* 9.3 mg/dL (8.4-10.6); Glucose* 97 mg/dL (60-115); HDL Cholesterol* 55 mg/dL (>=40); LDL Cholesterol Calculated 70 mg/dL (<100); Triglycerides* 77 mg/dL (40-149)
[2021-12-08 14:31] LABS: PSA Screen* 0.89 ng/mL (0.10-4.00)
== END 2021-12-08 09:32 | disposition home or self-care (01) ==
PROVIDERS: PCP Family Medicine; Visit Provider Family Medicine
DX: Z00.00 Encounter for general adult medical examination without abnormal findings (principal); D64.9 Anemia, unspecified; E78.5 Hyperlipidemia, unspecified; I10 Essential (primary) hypertension; R31.9 Hematuria, unspecified; R53.83 Other fatigue; Z12.5 Encounter for screening for malignant neoplasm of prostate
CPT/HCPCS: 80053; 80061; 84153; 84443

== ENCOUNTER 2022-02-16 10:27 | Outpatient (CLI) | payer MEDICARE, SELFPAY ==
[2022-02-16 15:20] LABS: Iron* 108 ug/dL (49-181)
[2022-02-16 16:14] LABS: Vitamin B12* 567 pg/mL (243-894)
== END 2022-02-16 10:28 | disposition home or self-care (01) ==
PROVIDERS: PCP Family Medicine; Visit Provider Family Medicine
DX: D61.818 Other pancytopenia (principal); D64.9 Anemia, unspecified
CPT/HCPCS: 82607; 82728; 83540

== ENCOUNTER 2022-10-02 10:24 | Outpatient (CLI) | payer MEDICARE, SELFPAY | END 2022-10-02 10:25 | disposition home or self-care (01) | LOC: LKVREF 10:26 | PROVIDERS: PCP Family Medicine; Visit Provider Family Medicine | DX: Z11.9 Encounter for screening for infectious and parasitic diseases, unspecified (principal); S30.860A Insect bite (nonvenomous) of lower back and pelvis, initial encounter | CPT/HCPCS: 80053; 80061; 84153; 86618 ==

== ENCOUNTER 2022-10-25 10:48 | Outpatient (CLI) | payer MEDICARE, SELFPAY ==
--- NOTE | 2022-10-25 11:00 | CRLHL7_ITS ---
For Patients: As a result of the Century Cures Act, medical imaging exams and procedure reports are released immediately into your electronic medical record. You may view this report before your referring provider. If you have questions, please contact your health care provider. CLINICAL HISTORY: Pancytopenia COMPARISON: CT 10/31/2022 TECHNIQUE: Real time constantino scale imaging and color Doppler analysis was performed of the abdomen. FINDINGS: Sonographic imaging demonstrates normal size and uniform echotexture of the liver. The spleen is of normal size and measures 12.4 cm. The pancreas is not well-visualized. The proximal abdominal aorta and IVC appear normal. There is no evidence of ascites. The gallbladder is of normal size and there is no evidence of sludge or stones within the gallbladder lumen. The gallbladder wall measures 3 mm in thickness. The common bile duct measures 5 mm in size within the chen hepatis. The kidneys appear symmetric. The right kidney measures 9.4 cm in length and the left kidney measures 11.2 cm. There is no evidence of a renal calculus or hydronephrosis. IMPRESSION: No evidence of splenomegaly or ascites. Incomplete visualization of the pancreas. Remainder unremarkable. Dictated by Geoff Kuhn MD @ 10/25/2022 12:18:17 PM (Electronically Signed)
== END 2022-10-25 10:49 | disposition home or self-care (01) ==
LOC: US 10:51
PROVIDERS: PCP Family Medicine; Visit Provider Internal Medicine Hematology & Oncology
DX: D61.818 Other pancytopenia (principal)
CPT/HCPCS: 76700

== ENCOUNTER 2022-11-07 13:15 | Outpatient (RCR) | payer MEDICARE, SELFPAY ==
[2022-10-12 12:10] LABS: Basophils Absolute Auto 0.03 K/uL (0.00-0.30); Basophils Percent Auto 0.6 % (0.0-3.0); Eosinophils Absolute Auto 0.08 K/uL (0.00-0.50); Eosinophils Percent Auto 1.7 % (0.0-7.0); Hematocrit 39.8 % (37.0-53.0); Hemoglobin* 13.4 gm/dL (13.5-17.5); Immature Reticulocyte Fraction 3.5 % (2.3-13.4); Mean Corpuscular HGB Conc 34 gm/dL (32-36); Mean Corpuscular Hemoglobin 29 pg (26-34); Mean Corpuscular Volume 86 fL (80-100); Monocytes Percent Auto 9.8 % (0.0-11.0); Neutrophils Absolute Auto 3.02 K/uL (1.7-7.0); Neutrophils Percent Auto 62.9 % (42.0-72.0); Platelet Count* 145 K/uL (140-440); RDW Coefficient of Variation % 12.7 % (11.5-15.5); Red Blood Count 4.61 m/uL (4.30-5.90); Reticulocyte Hemoglobin Equivi 28.6 pg (29.0-35.0); Reticulocyte Percent 0.5 % (0.5-2.0); Reticulocytes Absolute 0.02 # (0.03-0.08)
[2022-10-12 12:12] LABS: Slide Review Reflex No
[2022-10-12 12:39] LABS: Albumin* 4.4 g/dL (3.3-5.0); Chloride* 105 mmol/L (96-114); Potassium* 3.7 mmol/L (3.6-5.1); Sodium* 140 mmol/L (135-149)
[2022-10-12 12:40] LABS: INR 1.04 (0.91-1.10); Prothrombin Time 14.2 Seconds
[2022-10-12 12:41] LABS: Creatinine* 1.2 mg/dL (0.5-1.5); Est. Creatinine Clearance* 49.88; Estimated Glomerular Filt Rate 62 ml/min
[2022-10-12 12:42] LABS: Alanine Aminotransferase* 27 U/L (4-50); Alkaline Phosphatase* 105 U/L (40-150); Anion Gap 9 mEq/L (7-15); Aspartate Amino Transferase* 35 U/L (12-35); Bilirubin Total* 0.9 mg/dL (0.1-1.5); Blood Urea Nitrogen* 21 mg/dL (7-30); Calcium* 9.8 mg/dL (8.4-10.6); Carbon Dioxide* 26 mmol/L (20-32); Glucose* 102 mg/dL (60-115); Total Protein* 7.5 g/dL (6.0-8.3)
[2022-10-12 13:14] LABS: Hepatitis B Surface Antigen* Negative (Negative)
[2022-10-12 13:23] LABS: HIV 1/2/P24 Combo Screen* Negative (Negative)
[2022-10-12 13:31] LABS: Hepatitis C Virus Antibody* Negative (Negative)
[2022-10-12 13:32] LABS: Vitamin B12* 684 pg/mL (243-894)
[2022-10-13 21:22] LABS: Folate, Serum >22.3 ng/mL (>=5.9)
[2022-10-14 00:46] LABS: Anti-Nuclear Ab(ANA)IgG ELISA None Detected (None Detected)
[2022-10-14 01:35] LABS: Copper, Serum/Plasma 108.2 ug/dL (70.0-140.0)
== END 2023-04-10 23:59 | disposition home or self-care (01) ==
LOC: CCIC 13:15
PROVIDERS: PCP Family Medicine; Visit Provider Internal Medicine Hematology & Oncology
DX: D61.818 Other pancytopenia (principal)
CPT/HCPCS: 36415; 80053; 82525; 82607; 82746; 85025; 85045; 85610; 86039; 86703; 86803; 87340; 99202; 99204; 99212; 99213; 99214

== ENCOUNTER 2023-01-12 10:40 | Outpatient (REF) | payer MEDICARE, SELFPAY | END 2023-01-12 10:41 | disposition home or self-care (01) | LOC: NFLDREF 10:40 | PROVIDERS: PCP Family Medicine; Referring Provider Family Medicine; Visit Provider Family Medicine | DX: D61.818 Other pancytopenia (principal); D64.9 Anemia, unspecified; E78.5 Hyperlipidemia, unspecified; I10 Essential (primary) hypertension; Z12.5 Encounter for screening for malignant neoplasm of prostate | CPT/HCPCS: 80053; 80061; 84153 ==

== ENCOUNTER 2023-01-19 11:26 | Outpatient (CLI) | payer MEDICARE, SELFPAY | END 2023-01-19 11:27 | disposition home or self-care (01) | PROVIDERS: PCP Family Medicine; Visit Provider Family Medicine | DX: R53.83 Other fatigue (principal); Z79.899 Other long term (current) drug therapy; I10 Essential (primary) hypertension; E78.5 Hyperlipidemia, unspecified; D61.818 Other pancytopenia | CPT/HCPCS: 82306; 82652; 84443 ==

== ENCOUNTER 2023-09-11 14:21 | Outpatient (CLI) | payer MEDICARE, SELFPAY ==
--- OUTSIDE RECORDS SUMMARY | 2023-09-11 14:24 | XMS_ITS | Encounter Summary ---
Author Organization [place] Address [address] [place] [address]. [place] [address] Care Team Providers Care Script Editor Name Role Phone Raghavendra Deras MD Primary Care Provider [phone] Raghavendra Deras MD Unavailable [phone] Raghavendra Deras MD Unavailable [phone] Encounter Details Date Type Department Care Team (Late st Contact Info) Description 03/29/2018 MyC Medical Advice [address] [address] [place] [address] [place] [address] Social History Tobacco Use Types Packs/Day Years Used Date Smoking Tobacco: Former Cigarettes 0.5 20 0 02/06/1964 - 02/06/1984 Smokeless Tobacco: Never Alcohol Use Standard Drinks/Week Comments Yes 1.7 (1 standard drink = 0.6 oz p ure alcohol) occasional PHQ-2 Answer Date Recorded PHQ-2 Score 0 03/19/2018 Sex and Gender Information Value Date Recorded Sex Assigned at Male 01/15/2018 11:39 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 Gender Identity Male 01/15/2018 11:39 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 Sexual Orientation Straight 01/15/2018 11 :39 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 documented as of this encounter Plan of Treatment Not on file documented as of this encounter Visit Diagnoses Not on filedocumented in this encounter Care Teams Script Editor Relationship Specialty Start Date End Date Raghavendra Deras MD PCP - General Family Practice 10/07/13 12/04/21 [place] [address] [place] [address] PCP - Assigned PCP 01/23/16 04/09/18 [place] [address] [place] [address] Assigned PCP 01/23/16 05/14/21 documented as of this encounter
--- OUTSIDE RECORDS SUMMARY | 2023-09-11 14:24 | XMS_ITS | Encounter Summary ---
Author Organization [place] Address [address] [place] [address] [place] [address] Care Team Providers Care Catering Staff Member Name Role Phone Unavailable Primary Care Provider Unavailabl e Encounter Details Date Type Department Care Team (Late st Contact Info) Description 08/30/2022 MyC Medical Advice [facility] [address] [address] Bhavana Malloy, RN Social History Tobacco Use Types Packs/Day Years Used Date Smoking Tobacco: Former Cigarettes 0.5 20 0 02/06/1964 - 02/06/1984 Smokeless Tobacco: Never Alcohol Use Standard Drinks/Week Comments Yes 1.7 (1 standard drink = 0.6 oz p ure alcohol) occasional PHQ-2 Answer Date Recorded PHQ-2 Score 0 03/19/2018 Sex and Gender Information Value Date Recorded Sex Assigned at Male 01/15/2018 11:39 PM CELLARS SUPERVISOR Gender Identity Male 01/15/2018 11:39 PM CELLARS SUPERVISOR Sexual Orientation Straight 01/15/2018 11 :39 PM CELLARS SUPERVISOR documented as of this encounter Plan of Treatment Not on file documented as of this encounter Visit Diagnoses Not on filedocumented in this encounter
--- OUTSIDE RECORDS SUMMARY | 2023-09-11 14:24 | XMS_ITS | Encounter Summary ---
Author Organization [place] Address [facility] [place] [address] Care Team Providers Care Bobbin Marker Name Role Phone Nasir Velazquez MD Primary Care Provider Raghavendra Deras MD Primary Care Provider [phone] aRghavendra Deras MD Unavailable [phone] Raghavendra Deras MD Unavailable [phone] Encounter Details Date Type Department Care Team (Late st Contact Info) Description 11/01/2008 MyC Medical Advice [address] [address] Nasir Velazquez MD [address] [place] [phone] Social History Tobacco Use Types Packs/Day Years Used Date Smoking Tobacco: Former Cigarettes Q uit: 02/06/1984 Alcohol Use Standard Drinks/Week Comments Yes 1.7 (1 standard drink = 0.6 oz p ure alcohol) socially Sex and Gender Information Value Date Recorded Sex Assigned at Male 01/15/2018 11:39 PM COMMISSION ASSOCIATE Gender Identity Male 01/15/2018 11:39 PM COMMISSION ASSOCIATE Sexual Orientation Straight 01/15/2018 11 :39 PM COMMISSION ASSOCIATE documented as of this encounter Plan of Treatment Not on file documented as of this encounter Visit Diagnoses Not on filedocumented in this encounter Care Teams Bobbin Marker Relationship Specialty Start Date End Date Nasir Velazquez MD PCP - General 02/18/99 10/06/13 Raghavendra Deras MD PCP - General Family Practice 10/07/13 12/04/21 [place] [address] [place] [address] PCP - Assigned PCP 01/23/16 04/09/18 [place] [address] [place] [address] Assigned PCP 01/23/16 05/14/21 documented as of this encounter
--- OUTSIDE RECORDS SUMMARY | 2023-09-11 14:24 | XMS_ITS | Encounter Summary ---
Author Organization [place] Address [facility] [place] [address] Care Team Providers Care Resource Room Special Education Teacher Name Role Phone Nasir Velazquez MD Primary Care Provider Raghavendra Deras MD Primary Care Provider Raghavendra Deras MD Unavailable [phone] Raghavendra Deras MD Unavailable [phone] Reason for Visit * Reason Onset Date Comments MyChart Communication 08/12/2012 stool samp le Encounter Details Date Type Department Care Team (Latest Contact Info) Description 08/12/2012 MyC Medical Advice [address] [address] Nasir Velazquez MD [address] [place] [phone] MyChart Communication (stool sample) Social History Tobacco Use Types Packs/Day Years Used Date Smoking Tobacco: Former Cigarettes Q uit: 02/06/1984 Smokeless Tobacco: Never Alcohol Use Standard Drinks/Week Comments Yes 1.7 (1 standard drink = 0.6 oz p ure alcohol) moderate Sex and Gender Information Value Date Recorded Sex Assigned at Male 01/15/2018 11:39 PM INDUSTRIAL ORGANIZATION MANAGER Gender Identity Male 01/15/2018 11:39 PM INDUSTRIAL ORGANIZATION MANAGER Sexual Orientation Straight 01/15/2018 11 :39 PM INDUSTRIAL ORGANIZATION MANAGER documented as of this encounter Plan of Treatment Not on file documented as of this encounter Visit Diagnoses Not on filedocumented in this encounter Care Teams Resource Room Special Education Teacher Relationship Specialty Start Date End Date Nasir Velazquez MD PCP - General 02/18/99 10/06/13 Raghavendra Deras MD PCP - General Family Practice 10/07/13 12/04/21 [place] [address] [place] [address] PCP - Assigned PCP 01/23/16 04/09/18 [place] [address] [place] [address] Assigned PCP 01/23/16 05/14/21 documented as of this encounter
--- OUTSIDE RECORDS SUMMARY | 2023-09-11 14:24 | XMS_ITS | Encounter Summary ---
Author Organization [place] Address [address] [place], [place] [address] [address] Care Team Providers Care Cellular Plastics Cutter Name Role Phone Raghavendra Deras MD Primary Care Provider [phone] Raghavendra Deras MD Unavailable [phone] Encounter Details Date Type Department Care Team (Late st Contact Info) Description 02/09/2020 MyC Medical Advice [address] [address] Ariella Davidson Social History Tobacco Use Types Packs/Day Years Used Date Smoking Tobacco: Former Cigarettes 0.5 20 0 02/06/1964 - 02/06/1984 Smokeless Tobacco: Never Alcohol Use Standard Drinks/Week Comments Yes 1.7 (1 standard drink = 0.6 oz p ure alcohol) occasional PHQ-2 Answer Date Recorded PHQ-2 Score 0 03/19/2018 Sex and Gender Information Value Date Recorded Sex Assigned at Male 01/15/2018 11:39 PM INFRASTRUCTURE SECURITY ARCHITECT Gender Identity Male 01/15/2018 11:39 PM INFRASTRUCTURE SECURITY ARCHITECT Sexual Orientation Straight 01/15/2018 11 :39 PM INFRASTRUCTURE SECURITY ARCHITECT documented as of this encounter Plan of Treatment Not on file documented as of this encounter Visit Diagnoses Not on filedocumented in this encounter Care Teams Cellular Plastics Cutter Relationship Specialty Start Date End Date Raghavendra Deras MD PCP - General Family Practice 10/07/13 12/04/21 [place] [address] [place], [place] [address] Assigned PCP 01/23/16 05/14/21 documented as of this encounter
--- OUTSIDE RECORDS SUMMARY | 2023-09-11 14:24 | XMS_ITS | Encounter Summary ---
Author Organization [place] Address [facility] [place] [address] Care Team Providers Care Crisis Counselor Name Role Phone Nasir Velazquez MD Primary Care Provider Raghavendra Deras MD Primary Care Provider [phone] Raghavendra Deras MD Unavailable [phone] Raghavendra Deras MD Unavailable [phone] Encounter Details Date Type Department Care Team (Late st Contact Info) Description 12/20/2009 MyC Medical Advice [address] [address] Nasir Velazquez MD [address] [place] [phone] Social History Tobacco Use Types Packs/Day Years Used Date Smoking Tobacco: Former Cigarettes Q uit: 02/06/1984 Alcohol Use Standard Drinks/Week Comments Yes 1.7 (1 standard drink = 0.6 oz p ure alcohol) socially Sex and Gender Information Value Date Recorded Sex Assigned at Male 01/15/2018 11:39 PM SAND MILL OPERATOR CORE SAND Gender Identity Male 01/15/2018 11:39 PM SAND MILL OPERATOR CORE SAND Sexual Orientation Straight 01/15/2018 11 :39 PM SAND MILL OPERATOR CORE SAND documented as of this encounter Plan of Treatment Not on file documented as of this encounter Visit Diagnoses Not on filedocumented in this encounter Care Teams Crisis Counselor Relationship Specialty Start Date End Date Nasir Velazquez MD PCP - General 02/18/99 10/06/13 Raghavendra Deras MD PCP - General Family Practice 10/07/13 12/04/21 [place] [address] [place] [address] PCP - Assigned PCP 01/23/16 04/09/18 [place] [address] [place] [address] Assigned PCP 01/23/16 05/14/21 documented as of this encounter
--- OUTSIDE RECORDS SUMMARY | 2023-09-11 14:24 | XMS_ITS | Encounter Summary ---
Author Organization [place] Address [address] [place] [address]. [place] [address] Care Team Providers Care Entry Level Name Role Phone Raghavendra Deras MD Primary Care Provider [phone] Raghavendra Deras MD Unavailable [phone] Raghavendra Deras MD Unavailable [phone] Encounter Details Date Type Department Care Team (Late st Contact Info) Description 03/04/2018 MyC Medical Advice [address] [address] [place] [address] [place] [address] Social History Tobacco Use Types Packs/Day Years Used Date Smoking Tobacco: Former Cigarettes 0.5 20 0 02/06/1964 - 02/06/1984 Smokeless Tobacco: Never Alcohol Use Standard Drinks/Week Comments Yes 1.7 (1 standard drink = 0.6 oz p ure alcohol) occasional PHQ-2 Answer Date Recorded PHQ-2 Score 0 02/12/2018 Sex and Gender Information Value Date Recorded Sex Assigned at Male 01/15/2018 11:39 PM COFFEE SUPERVISOR Gender Identity Male 01/15/2018 11:39 PM COFFEE SUPERVISOR Sexual Orientation Straight 01/15/2018 11 :39 PM COFFEE SUPERVISOR documented as of this encounter Plan of Treatment Not on file documented as of this encounter Visit Diagnoses Not on filedocumented in this encounter Care Teams Entry Level Relationship Specialty Start Date End Date Raghavendra Deras MD PCP - General Family Practice 10/07/13 12/04/21 [place] [address] [place] [address] PCP - Assigned PCP 01/23/16 04/09/18 [place] [address] [place] [address] Assigned PCP 01/23/16 05/14/21 documented as of this encounter
--- OUTSIDE RECORDS SUMMARY | 2023-09-11 14:24 | XMS_ITS | Encounter Summary ---
Author Organization [place] Address [facility] [place] [address] Care Team Providers Care Livestock Sales Representative Name Role Phone Nasir Velazquez MD Primary Care Provider Raghavendra Deras MD Primary Care Provider [phone] Raghavendra Deras MD Unavailable [phone] Raghavendra Deras MD Unavailable [phone] Encounter Details Date Type Department Care Team (Late st Contact Info) Description 03/28/2006 MyC Medical Advice [facility] [id number] [place] [address] Nasir Velazquez MD [address] [place] [phone] Social History Tobacco Use Types Packs/Day Years Used Date Smoking Tobacco: Former Cigarettes Q uit: 02/06/1984 Alcohol Use Standard Drinks/Week Comments Yes 1.7 (1 standard drink = 0.6 oz p ure alcohol) socially Sex and Gender Information Value Date Recorded Sex Assigned at Male 01/15/2018 11:39 PM MOTOR VEHICLE FIELD REPRESENTATIVE Gender Identity Male 01/15/2018 11:39 PM MOTOR VEHICLE FIELD REPRESENTATIVE Sexual Orientation Straight 01/15/2018 11 :39 PM MOTOR VEHICLE FIELD REPRESENTATIVE documented as of this encounter Plan of Treatment Not on file documented as of this encounter Visit Diagnoses Not on filedocumented in this encounter Care Teams Livestock Sales Representative Relationship Specialty Start Date End Date Nasir Velazquez MD PCP - General 02/18/99 10/06/13 Raghavendra Deras MD PCP - General Family Practice 10/07/13 12/04/21 [place] [address] [place] [address] PCP - Assigned PCP 01/23/16 04/09/18 [place] [address] [place] [address] Assigned PCP 01/23/16 05/14/21 documented as of this encounter
--- OUTSIDE RECORDS SUMMARY | 2023-09-11 14:24 | XMS_ITS | Encounter Summary ---
Author Organization [place] Address [address] [place] [address]. [place] [address] Care Team Providers Care Extruder Operator Horizontal Name Role Phone Raghavendra Deras MD Primary Care Provider [phone] Raghavendra Deras MD Unavailable [phone] Raghavendra Deras MD Unavailable [phone] Encounter Details Date Type Department Care Team (Late st Contact Info) Description 06/05/2016 MyC Medical Advice [address] [address] Myriam Barrett APRN EXECUTIVE PRODUCER PROMOS [address] [address] [place], [place] [address] Social History Tobacco Use Types Packs/Day Years Used Date Smoking Tobacco: Former Cigarettes 0.5 20 0 02/06/1964 - 02/06/1984 Smokeless Tobacco: Never Alcohol Use Standard Drinks/Week Comments Yes 1.7 (1 standard drink = 0.6 oz p ure alcohol) occasional Sex and Gender Information Value Date Recorded Sex Assigned at Male 01/15/2018 11:39 PM NATIONAL SALES Gender Identity Male 01/15/2018 11:39 PM NATIONAL SALES Sexual Orientation Straight 01/15/2018 11 :39 PM NATIONAL SALES documented as of this encounter Plan of Treatment Not on file documented as of this encounter Visit Diagnoses Not on filedocumented in this encounter Care Teams Extruder Operator Horizontal Relationship Specialty Start Date End Date Raghavendra Deras MD PCP - General Family Practice 10/07/13 12/04/21 [place] [address] [place] [address] PCP - Assigned PCP 01/23/16 04/09/18 [place] [address] [place] [address] Assigned PCP 01/23/16 05/14/21 documented as of this encounter
--- OUTSIDE RECORDS SUMMARY | 2023-09-11 14:24 | XMS_ITS | Encounter Summary ---
Author Organization [place] Address [address] [place] [address]. [place] [address] Care Team Providers Care Air Sampler Name Role Phone Nasir Velazquez MD Primary Care Provider Raghavendra Deras MD Primary Care Provider [phone] Raghavendra Deras MD Unavailable [phone] Raghavendra Deras MD Unavailable [phone] Encounter Details Date Type Department Care Team (Late st Contact Info) Description 06/07/2011 MyC Medical Advice [address] [address] Nasir Velazquez MD [address] [place] [phone] Social History Tobacco Use Types Packs/Day Years Used Date Smoking Tobacco: Former Cigarettes Q uit: 02/06/1984 Smokeless Tobacco: Never Alcohol Use Standard Drinks/Week Comments Yes 1.7 (1 standard drink = 0.6 oz p ure alcohol) moderate Sex and Gender Information Value Date Recorded Sex Assigned at Male 01/15/2018 11:39 PM SPORTS THERAPIST Gender Identity Male 01/15/2018 11:39 PM SPORTS THERAPIST Sexual Orientation Straight 01/15/2018 11 :39 PM SPORTS THERAPIST documented as of this encounter Plan of Treatment Not on file documented as of this encounter Visit Diagnoses Not on filedocumented in this encounter Care Teams Air Sampler Relationship Specialty Start Date End Date Nasir Velazquez MD PCP - General 02/18/99 10/06/13 Raghavendra Deras MD PCP - General Family Practice 10/07/13 12/04/21 [place] [address] [place] [address] PCP - Assigned PCP 01/23/16 04/09/18 [place] [address] [place] [address] Assigned PCP 01/23/16 05/14/21 documented as of this encounter
--- OUTSIDE RECORDS SUMMARY | 2023-09-11 14:24 | XMS_ITS | Encounter Summary ---
Author Organization [place] Address [address] [place] [address]. [place] [address] Care Team Providers Care Store Gift Wrap Associate Name Role Phone Raghavendra Deras MD Primary Care Provider [phone] Raghavendra Deras MD Unavailable [phone] Encounter Details Date Type Department Care Team (Late st Contact Info) Description 05/14/2018 MyC Medical Advice [address] [address] [place] [address] [place] [address] Social History Tobacco Use Types Packs/Day Years Used Date Smoking Tobacco: Former Cigarettes 0.5 20 0 02/06/1964 - 02/06/1984 Smokeless Tobacco: Never Alcohol Use Standard Drinks/Week Comments Yes 1.7 (1 standard drink = 0.6 oz p ure alcohol) occasional PHQ-2 Answer Date Recorded PHQ-2 Score 0 03/19/2018 Sex and Gender Information Value Date Recorded Sex Assigned at Male 01/15/2018 11:39 PM OUTER DIAMETER GRINDER TOOL Gender Identity Male 01/15/2018 11:39 PM OUTER DIAMETER GRINDER TOOL Sexual Orientation Straight 01/15/2018 11 :39 PM OUTER DIAMETER GRINDER TOOL documented as of this encounter Plan of Treatment Not on file documented as of this encounter Visit Diagnoses Not on filedocumented in this encounter Care Teams Store Gift Wrap Associate Relationship Specialty Start Date End Date Raghavendra Deras MD PCP - General Family Practice 10/07/13 12/04/21 [place] [address] [place] [address] Assigned PCP 01/23/16 05/14/21 documented as of this encounter
--- OUTSIDE RECORDS SUMMARY | 2023-09-11 14:24 | XMS_ITS | Encounter Summary ---
Author Organization [place] Address [address] [place], [place] [address]. [place] [address] Care Team Providers Care Structural Steel Shop Supervisor Name Role Phone Raghavendra Deras MD Primary Care Provider [phone] Raghavendra Deras MD Unavailable [phone] Encounter Details Date Type Department Care Team (Late st Contact Info) Description 09/18/2019 MyC Medical Advice [address] [address] Ariella Davidson Social History Tobacco [...] Sex Assigned at Male 01/15/2018 11:39 PM OPHTHALMIC SURGICAL ASSISTANT Gender Identity Male 01/15/2018 11:39 PM OPHTHALMIC SURGICAL ASSISTANT Sexual Orientation Straight 01/15/2018 11 :39 PM OPHTHALMIC SURGICAL ASSISTANT documented as of this encounter Plan of Treatment Not on file documented as of this encounter Visit Diagnoses Not on filedocumented in this encounter Care Teams Structural Steel Shop Supervisor Relationship Specialty Start Date End Date Raghavendra Deras MD PCP - General Family Practice 10/07/13 12/04/21 [place] [address] [place] [address] Assigned PCP 01/23/16 05/14/21 documented as of this encounter
--- OUTSIDE RECORDS SUMMARY | 2023-09-11 14:24 | XMS_ITS | Encounter Summary ---
Author Organization [place] Address [address] [place] [address]. [place] [address] Care Team Providers Care Filling Separator Name Role Phone Raghavendra Deras MD Primary Care Provider [phone] Raghavendra Deras MD Unavailable [phone] Encounter Details Date Type Department Care Team (Late st Contact Info) Description 12/17/2018 MyC Medical Advice [address] [address] [place] [address] [place] [address] Social History Tobacco Use Types Packs/Day Years Used Date Smoking Tobacco: Former Cigarettes 0.5 20 0 02/06/1964 - 02/06/1984 Smokeless Tobacco: Never Alcohol Use Standard Drinks/Week Comments Yes 1.7 (1 standard drink = 0.6 oz p ure alcohol) occasional PHQ-2 Answer Date Recorded PHQ-2 Score 0 03/19/2018 Sex and Gender Information Value Date Recorded Sex Assigned at Male 01/15/2018 11:39 PM GOLF TOURNAMENT CONSULTANT Gender Identity Male 01/15/2018 11:39 PM GOLF TOURNAMENT CONSULTANT Sexual Orientation Straight 01/15/2018 11 :39 PM GOLF TOURNAMENT CONSULTANT documented as of this encounter Plan of Treatment Not on file documented as of this encounter Visit Diagnoses Not on filedocumented in this encounter Care Teams Filling Separator Relationship Specialty Start Date End Date Raghavendra Deras MD PCP - General Family Practice 10/07/13 12/04/21 [place] [address] [place] [address] Assigned PCP 01/23/16 05/14/21 documented as of this encounter
--- OUTSIDE RECORDS SUMMARY | 2023-09-11 14:24 | XMS_ITS | Encounter Summary ---
Author Organization [place] Address [address] [place] [address]. [place] [address] Care Team Providers Care Cartridge Maker Name Role Phone Raghavendra Deras MD Primary Care Provider [phone] Raghavendra Deras MD Unavailable [phone] Raghavendra Deras MD Unavailable [phone] Encounter Details Date Type Department Care Team (Late st Contact Info) Description 02/02/2017 MyC Medical Advice [address] [address] [place] [address] [place] [address] Social History Tobacco Use Types Packs/Day Years Used Date Smoking Tobacco: Former Cigarettes 0.5 20 0 02/06/1964 - 02/06/1984 Smokeless Tobacco: Never Alcohol Use Standard Drinks/Week Comments Yes 1.7 (1 standard drink = 0.6 oz p ure alcohol) occasional Sex and Gender Information Value Date Recorded Sex Assigned at Male 01/15/2018 11:39 PM ECD Gender Identity Male 01/15/2018 11:39 PM ECD Sexual Orientation Straight 01/15/2018 11 :39 PM ECD documented as of this encounter Plan of Treatment Not on file documented as of this encounter Visit Diagnoses Not on filedocumented in this encounter Care Teams Cartridge Maker Relationship Specialty Start Date End Date Raghavendra Deras MD PCP - General Family Practice 10/07/13 12/04/21 [place] [address] [place] [address] PCP - Assigned PCP 01/23/16 04/09/18 [place] [address] [place] [address] Assigned PCP 01/23/16 05/14/21 documented as of this encounter
--- OUTSIDE RECORDS SUMMARY | 2023-09-11 14:24 | XMS_ITS | Encounter Summary ---
Author Organization [place] Address [facility] [place] [address] Care Team Providers Care Wireless Sales Representative Name Role Phone Nasir Velazquez MD Primary Care Provider Raghavendra Deras MD Primary Care Provider [phone] Raghavendra Deras MD Unavailable [phone] Raghavendra Deras MD Unavailable [phone] Encounter Details Date Type Department Care Team (Late st Contact Info) Description 04/30/2009 MyC Medical Advice [address] [address] Nasir Velazquez MD [address] [place] [phone] Social History Tobacco Use Types Packs/Day Years Used Date Smoking Tobacco: Former Cigarettes Q uit: 02/06/1984 Alcohol Use Standard Drinks/Week Comments Yes 1.7 (1 standard drink = 0.6 oz p ure alcohol) socially Sex and Gender Information Value Date Recorded Sex Assigned at Male 01/15/2018 11:39 PM LUMBER SALES SUPERVISOR Gender Identity Male 01/15/2018 11:39 PM LUMBER SALES SUPERVISOR Sexual Orientation Straight 01/15/2018 11 :39 PM LUMBER SALES SUPERVISOR documented as of this encounter Plan of Treatment Not on file documented as of this encounter Visit Diagnoses Not on filedocumented in this encounter Care Teams Wireless Sales Representative Relationship Specialty Start Date End Date Nasir Velazquez MD PCP - General 02/18/99 10/06/13 Raghavendra Deras MD PCP - General Family Practice 10/07/13 12/04/21 [place] [address] [place] [address] PCP - Assigned PCP 01/23/16 04/09/18 [place] [address] [place] [address] Assigned PCP 01/23/16 05/14/21 documented as of this encounter
--- OUTSIDE RECORDS SUMMARY | 2023-09-11 14:24 | XMS_ITS | Encounter Summary ---
Author Organization [facility] Address [address] [place] [address]. [place] [address] Care Team Providers Care Services Clerk Name Role Phone Raghavendra Deras MD Primary Care Provider [phone] Rgahavendra Deras MD Unavailable [phone] Raghavendra Deras MD Unavailable [phone] Encounter Details Date Type Department Care Team (Late st Contact Info) Description 04/17/2014 MyC Medical Advice [address] [address] [place] [address] [place] [address] Social History Tobacco Use Types Packs/Day Years Used Date Smoking Tobacco: Former Cigarettes 0.5 20 0 02/06/1964 - 02/06/1984 Smokeless Tobacco: Never Alcohol Use Standard Drinks/Week Comments Yes 1.7 (1 standard drink = 0.6 oz p ure alcohol) occasional Sex and Gender Information Value Date Recorded Sex Assigned at Male 01/15/2018 11:39 PM DENTIST Gender Identity Male 01/15/2018 11:39 PM DENTIST Sexual Orientation Straight 01/15/2018 11 :39 PM DENTIST documented as of this encounter Plan of Treatment Not on file documented as of this encounter Visit Diagnoses Not on filedocumented in this encounter Care Teams Services Clerk Relationship Specialty Start Date End Date Raghavendra Deras MD PCP - General Family Practice 10/07/13 12/04/21 [place] [address] [place] [address] PCP - Assigned PCP 01/23/16 04/09/18 [place] [address] [place] [address] Assigned PCP 01/23/16 05/14/21 documented as of this encounter
--- OUTSIDE RECORDS SUMMARY | 2023-09-11 14:24 | XMS_ITS | Clinical Summary ---
Author Organization [place] Address [address] [place] [address] Care Team Providers Care Concentrator Operator Name Role Phone Unavailable Primary Care Provider Unavailabl e Allergies Active Allergy Reactions Criticality Noted Date Comments Alpha Isela Quinazolines 1 get bloody noses from Flomax Mometasone Furoate Monohydrate 06/11/2000 gets bloody noses from Nasonex Medications Medication Sig Dispensed Refills Start Date End Date Status Multiple Vitamins-Minerals (CENTRUM SILVER ULTRA MENS PO) Take 1 tablet by mouth daily Active fish oil-omega-3 fatty acids 1000 MG capsule Take 2 capsules (2 g) by mouth daily PT IS NOW TAKING 1 TAB PER DAY 90 capsule 10/07/2013 Active hydrochlorothiazide (HYDRODIURIL) 12.5 MG tabletIndications:Ess ential hypertension Take 1 tablet (12.5 mg) by mouth daily 30 tablet 05/13/2018 Active doxazosin (CARDURA) 4 MG tabletIndications:Ess ential hypertension Take 1 tablet (4 mg) by mouth At Bedtime 90 tablet 3 06/14/2018 Active omeprazole (PRILOSEC) [address] capsuleIndications:Hi story of peptic ulcer disease,Gastroesophag eal reflux disease, esophagitis presence not specified Take 1 capsule (40 mg) by mouth daily 90 capsule 2 07/31/2018 Active losartan (COZAAR) 50 MG tabletIndications:Ess ential hypertension TAKE 1 TABLET EVERY DAY 90 tablet 1 09/27/2018 Active simvastatin (ZOCOR) 20 MG tabletIndications:Hyp erlipidemia LDL goal <130 TAKE 1 TABLET AT BEDTIME 90 tablet 03/17/2019 Active Active Problems Problem Noted Date Diagnosed Date Hyperlipidemia LDL goal <130 01/12/2016 Benign prostatic hyperplasia with lower urinary tract symptoms 10/01/2014 Essential hypertension 06/24/2010 History of peptic ulcer disease 03/21/2010 SCC (squamous cell carcinoma), face 03/16/2008 Overview: Right neck Adenomatous polyp of colon 02/05/2002 Allergic rhinitis Actinic keratosis Esophageal reflux Overview: Hx of ulcer Resolved Problems Problem Noted Date Diagnosed Date Resolved Date Acute left-sided low back pa in without sciatica 10/08/2015 01/06/2016 Hyperlipidemia with target LDL less than 130 5 01/12/2016 Gastroenteritis 01/10/2013 01/12/2016 Low back pain 04/03/2012 04/17/2012 Overview: Diagnosis updated by automated process. Provider to review and confirm. Thumb pain 01/22/2012 02/22/2012 Neck pain 01/15/2012 02/14/2012 Advanced directives, counseling/discussion 07/08/2010 07/23/2023 Overview: Advance Directive Problem List Overview: Name Relationship Phone Primary Health Care Agent Karen Neumann [phone] Alternative Health Care Agent Discussed advance care planning with patient; information given to patient to review. 07/08/2010 07/18/10 Left message for patient to call back to arrange facilitation if desired for completion of Advanced Care Directive. Rosibel Steele LPN/Advanced Healthcare Planning Long Term Acute Care Registered Nurse Advance Care Planning 01/12/2016: ACP Review of Chart / Resources Provided: Reviewed chart for advance care plan. Terry Neumann has no plan or code status on file. Discussed available resources and provided with information. Confirmed code status reflects current choices pending further ACP discussions. Confirmed/documented legally designated decision makers. Added by Fatemeh Camacho CMA Hyperlipidemia LDL goal <130 12/05/2009 04/15/2014 Hypertension 04/30/2009 06/24/2010 MORENITA (obstructive sleep apnea) 04/30/2009 03/20/2018 Overview: Unable to tolerate LIPOMA SKIN- trunk & legs 08/05/2004 Essential hypertension, benign 12/30/2002 04/30/2009 Trigger finger, acquired 08/11/2002 Overview: Problem list name updated by automated process. Provider to review Bunion 09/26/2000 07/04/2006 Acute duodenal ulcer with hemorrhage 09/03/1997 Overview: Problem list name updated by automated process. Provider to review Hypertrophy of prostate with out urinary obstruction 01/12/2016 Immunizations Name Administration Dates Next Due Influenza Vaccine >6 months,quad, PF 01/01/2018 Influenza Vaccine, 6+MO IM ( QUADRIVALENT W/PRESERVATIVES) 09/26/2016 Pneumo Conj 13-V (2010&after) 10/01/2014 Pneumococcal 23 valent 07/08/2010 TD,PF 7+ (Tenivac) 04/13/1998 04/13/2008 TDAP Vaccine (Adacel) 09/04/2018 TDAP Vaccine (Boostrix) 10/19/2008 Zoster recombinant adjuvanted (SHINGRIX) 019 Zoster vaccine, live 01/18/2016 Family History Medical History Relation Comments Heart Disease Brother stent - 66 Prostate Cancer Brother no cancer, but a produre due reduce the prostate Family History Negative Father Cerebrovascular Disease Maternal Grandmother old er, 70's or 80's Diabetes Maternal Grandmother C.A.D. Maternal Uncle [place] Cancer - colorectal Maternal Uncle Family History Negative Mother Prostate Cancer Other Cousin Prostate Cancer Paternal Grandfather not sure Cancer Sister 1 bone caner/lung cancer Relation Status Comments Brother Alive Father (Age 84) Renal failure Maternal Grandfather Maternal Grandmother Maternal Uncle Mother Other Paternal Grandfather Paternal Grandmother Sister 1 Sister 2 Alive Social History Tobacco Use Types Packs/Day Years Used Date Smoking Tobacco: Former Cigarettes 0.5 20 0 02/06/1964 - 02/06/1984 Smokeless Tobacco: Never Tobacco Cessation:Counseling Given: No Alcohol Use Standard Drinks/Week Comments Yes 1.7 (1 standard drink = 0.6 oz p ure alcohol) occasional PHQ-2 Answer Date Recorded PHQ-2 Score 0 03/19/2018 Adolescent Education Answer Date Record ed Getting School Help Needed Not on file 11/11 Sex and Gender Information Value Date Recorded Sex Assigned at Male 01/15/2018 11:39 PM SPECIAL MAKEUP FX ARTIST INSTRUCTOR Gender Identity Male 01/15/2018 11:39 PM SPECIAL MAKEUP FX ARTIST INSTRUCTOR Sexual Orientation Straight 01/15/2018 11 :39 PM SPECIAL MAKEUP FX ARTIST INSTRUCTOR Last Filed Vital Signs Vital Sign Reading Time Taken Comments Blood Pressure 144/82 03/19/2019 9:57 AM SPECIAL MAKEUP FX ARTIST INSTRUCTOR Pulse 74 09/04/2018 8:59 PM CDT Temperature 36.9 ??C (98.4 ??F) 09/04/2018 8:59 PM CD T Respiratory Rate 16 09/04/2018 8:59 PM CDT Oxygen Saturation 96% 09/04/2018 8:59 PM CDT Inhaled Oxygen Concentration - - Weight 94.3 kg (208 lb) 09/04/2018 8:59 PM CDT Height 175.3 cm (5' 9) 09/04/2018 8:59 PM CDT Body Mass Index 30.72 09/04/2018 8:59 PM CDT Plan of Treatment Not on file Advance Directives For more information, please contact: [phone] * Full Code (Latest Code Status on File) Date Activated Date Inactivated Comments 01/10/2013 6:23 AM 01/10/2013 10:37 PM
--- OUTSIDE RECORDS SUMMARY | 2023-09-11 14:24 | XMS_ITS | Encounter Summary ---
Author Organization [place] Address [facility] [place] [address] Care Team Providers Care Sustainability Analyst Name Role Phone Nasir Velazquez MD Primary Care Provider Raghavendra Deras MD Primary Care Provider [phone] Raghavendra Deras MD Unavailable [phone] Raghavendra Deras MD Unavailable [phone] Encounter Details Date Type Department Care Team (Late st Contact Info) Description 03/26/2012 MyC Medical Advice [address] [address] Nasir Velazquez MD [address] [place] [phone] Social History Tobacco Use Types Packs/Day Years Used Date Smoking Tobacco: Former Cigarettes Q uit: 02/06/1984 Smokeless Tobacco: Never Alcohol Use Standard Drinks/Week Comments Yes 1.7 (1 standard drink = 0.6 oz p ure alcohol) moderate Sex and Gender Information Value Date Recorded Sex Assigned at Male 01/15/2018 11:39 PM DIFFUSER OPERATOR Gender Identity Male 01/15/2018 11:39 PM DIFFUSER OPERATOR Sexual Orientation Straight 01/15/2018 11 :39 PM DIFFUSER OPERATOR documented as of this encounter Plan of Treatment Not on file documented as of this encounter Visit Diagnoses Not on filedocumented in this encounter Care Teams Sustainability Analyst Relationship Specialty Start Date End Date Nasir Velazquez MD PCP - General 02/18/99 10/06/13 Raghavendra Deras MD PCP - General Family Practice 10/07/13 12/04/21 [place] [address] [place] [address] PCP - Assigned PCP 01/23/16 04/09/18 [place] [address] [place] [address] Assigned PCP 01/23/16 05/14/21 documented as of this encounter
--- OUTSIDE RECORDS SUMMARY | 2023-09-11 14:24 | XMS_ITS | Encounter Summary ---
Author Organization [facility] Address [facility] [place] [address] Care Team Providers Care Plum Packer Name Role Phone Nasir Velazquez MD Primary Care Provider Raghavendra Deras MD Primary Care Provider [phone] Raghavendra Deras MD Unavailable [phone] Raghavendra Deras MD Unavailable [phone] Reason for Visit * Reason Onset Date Comments MyChart Communication 01/16/2013 medication change Encounter Details Date Type Department Care Team (Latest Contact Info) Description 01/16/2013 MyC Medical Advice [address] [address] Nasir Velazquez MD [address] [place] [phone] MyChart Communication (medication change) Social History Tobacco Use Types Packs/Day Years Used Date Smoking Tobacco: Former Cigarettes Q uit: 02/06/1984 Smokeless Tobacco: Never Alcohol Use Standard Drinks/Week Comments Yes 1.7 (1 standard drink = 0.6 oz p ure alcohol) moderate Sex and Gender Information Value Date Recorded Sex Assigned at Male 01/15/2018 11:39 PM PROPERTY MANAGEMENT BOOKKEEPER Gender Identity Male 01/15/2018 11:39 PM PROPERTY MANAGEMENT BOOKKEEPER Sexual Orientation Straight 01/15/2018 11 :39 PM PROPERTY MANAGEMENT BOOKKEEPER documented as of this encounter Miscellaneous Notes * Telephone Encounter - Janny Loya, RN - 01/16/2013 2:03 PM CST Generic Drug Substitution for Omeprazole . Patient Pt requested change to pantoprazole 40 mg due tocost. Janny Loya January 16, 2013 ERTY MANAGEMENT BOOKKEEPER documented in this encounter Plan of Treatment Not on file documented as of this encounter Visit Diagnoses Diagnosis Esophageal reflux- Primary documented in this encounter Care Teams Plum Packer Relationship Specialty Start Date End Date Nasir Velazquez MD PCP - General 02/18/99 10/06/13 Raghavendra Deras MD PCP - General Family Practice 10/07/13 12/04/21 [place] [address] [place] [address] PCP - Assigned PCP 01/23/16 04/09/18 [place] [address] [place] [address] Assigned PCP 01/23/16 05/14/21 documented as of this encounter
--- OUTSIDE RECORDS SUMMARY | 2023-09-11 14:24 | XMS_ITS | Referral Summary ---
Author Organization [facility] Address [address] [place] [address] Care Team Providers Care Director Of Maintenance Name Role Phone Unavailable Primary Care Provider [...] Phone Primary Health Care Agent Karen Neumann [phone] Alternative Health Care Agent Discussed advance care planning with patient; information given to patient to review. 07/08/2010 07/18/10 Left message for patient to call back to arrange facilitation if desired for completion of Advanced Care Directive. Rosibel Steele LPN/Advanced Healthcare Planning Vp Cardiovascular Advance Care Planning 01/12/2016: ACP Review of [...] adjuvanted (SHINGRIX) 019 Zoster vaccine, live 01/18/2016 Social History Tobacco Use Types Packs/Day Years [...] Sex Assigned at Male 01/15/2018 11:39 PM INSPECTOR REPAIRER Gender Identity Male 01/15/2018 11:39 PM INSPECTOR REPAIRER Sexual Orientation Straight 01/15/2018 11 :39 PM INSPECTOR REPAIRER Last Filed Vital Signs Vital Sign Reading Time Taken Comments Blood Pressure 144/82 03/19/2019 9:57 AM INSPECTOR REPAIRER Pulse 74 09/04/2018 8:59 PM CDT Temperature [...] Advance Directives For more information, please contact: [phone] * Full Code (Latest Code Status on File) Date Activated Date Inactivated Comments 01/10/2013 6:23 AM 01/10/2013 10:37 PM
--- OUTSIDE RECORDS SUMMARY | 2023-09-11 14:24 | XMS_ITS | Encounter Summary ---
Author Organization [facility] Address [address] [place] [address]. [place] [address] Care Team Providers Care Clinical Unit Educator Name Role Phone Raghavendra Deras MD Primary Care Provider [phone] Raghavendra Deras MD Unavailable [phone] Raghavendra Deras MD Unavailable [phone] Encounter Details Date Type Department Care Team (Late st Contact Info) Description 11/05/2015 MyC Medical Advice [address] [address] Myriam Barrett APRN RETICLE PRINTER [address] [address] [place], [place] [address] Social History Tobacco Use Types Packs/Day Years Used Date Smoking Tobacco: Former Cigarettes 0.5 20 0 02/06/1964 - 02/06/1984 Smokeless Tobacco: Never Alcohol Use Standard Drinks/Week Comments Yes 1.7 (1 standard drink = 0.6 oz p ure alcohol) occasional Sex and Gender Information Value Date Recorded Sex Assigned at Male 01/15/2018 11:39 PM PACKAGER HAND Gender Identity Male 01/15/2018 11:39 PM PACKAGER HAND Sexual Orientation Straight 01/15/2018 11 :39 PM PACKAGER HAND documented as of this encounter Plan of Treatment Not on file documented as of this encounter Visit Diagnoses Not on filedocumented in this encounter Care Teams Clinical Unit Educator Relationship Specialty Start Date End Date Raghavendra Deras MD PCP - General Family Practice 10/07/13 12/04/21 [place] [address] [place] [address] PCP - Assigned PCP 01/23/16 04/09/18 [place] [address] [place] [address] Assigned PCP 01/23/16 05/14/21 documented as of this encounter
--- OUTSIDE RECORDS SUMMARY | 2023-09-11 14:24 | XMS_ITS | Encounter Summary ---
Author Organization [facility] Address [address] [place] [address]. [place] [address] Care Team Providers Care Cleaner And Preparer Name Role Phone Raghavendra Deras MD Primary Care Provider [phone] Raghavendra Deras MD Unavailable [phone] Raghavendra Deras MD Unavailable [phone] Encounter Details Date Type Department Care Team (Late st Contact Info) Description 10/03/2014 [facility] Medical Advice [address] [address] [place] [address] [place] [address] Social History Tobacco Use Types Packs/Day Years Used Date Smoking Tobacco: Former Cigarettes 0.5 20 0 02/06/1964 - 02/06/1984 Smokeless Tobacco: Never Alcohol Use Standard Drinks/Week Comments Yes 1.7 (1 standard drink = 0.6 oz p ure alcohol) occasional Sex and Gender Information Value Date Recorded Sex Assigned at Male 01/15/2018 11:39 PM ACCOUNTS PAYABLE OR RECEIVABLE CLERK Gender Identity Male 01/15/2018 11:39 PM ACCOUNTS PAYABLE OR RECEIVABLE CLERK Sexual Orientation Straight 01/15/2018 11 :39 PM ACCOUNTS PAYABLE OR RECEIVABLE CLERK documented as of this encounter Plan of Treatment Not on file documented as of this encounter Visit Diagnoses Not on filedocumented in this encounter Care Teams Cleaner And Preparer Relationship Specialty Start Date End Date Raghavendra Deras MD PCP - General Family Practice 10/07/13 12/04/21 [place] [address] [place] [address] PCP - Assigned PCP 01/23/16 04/09/18 [place] [address] [place] [address] Assigned PCP 01/23/16 05/14/21 documented as of this encounter
--- OUTSIDE RECORDS SUMMARY | 2023-09-11 14:24 | XMS_ITS | Encounter Summary ---
Author Organization [facility] Address [address] [place] [address]. [place] [address] Care Team Providers Care Blade Bender Furnace Tender Name Role Phone Raghavendra Deras MD Primary Care Provider [phone] Raghavendra Deras MD Unavailable [phone] Raghavendra Deras MD Unavailable [phone] Reason for Visit * Reason Onset Date Comments Results 03/21/2018 Encounter Details Date Type Department Care Team (Late st Contact Info) Description 03/21/2018 MyC Medical Advice [address] [address] [place] [address] [facility] [place] [address] Results Social History Tobacco Use Types Packs/Day Years Used Date Smoking Tobacco: Former Cigarettes 0.5 20 0 02/06/1964 - 02/06/1984 Smokeless Tobacco: Never Alcohol Use Standard Drinks/Week Comments Yes 1.7 (1 standard drink = 0.6 oz p ure alcohol) occasional PHQ-2 Answer Date Recorded PHQ-2 Score 0 03/19/2018 Sex and Gender Information Value Date Recorded Sex Assigned at Male 01/15/2018 11:39 PM BARK SPUDDER Gender Identity Male 01/15/2018 11:39 PM BARK SPUDDER Sexual Orientation Straight 01/15/2018 11 :39 PM BARK SPUDDER documented as of this encounter Miscellaneous Notes * Telephone Encounter - Fatemeh Carbajal RN - 03/22/2018 3:10 PM BARK SPUDDER Responded to the Pt. Fatemeh Carbajal RN -- [employer] Work[employer] SPUDDER * Telephone Encounter - Raghavendra Deras MD - 03/22/2018 12:55 PM BARK SPUDDER PSA screening tests are not recommended at 70 or over. The reasons are complicated - further information through these resources: Look up USPSTF PSA - this is a national board of health screening recommendations that all physicians should be following. Dr. James Pemberton Prostate - good video on the subject Choosing Wisely website - PSA test SPUDDER * Telephone Encounter - Fatemeh Carbajal RN - 03/22/2018 7:36 AM BARK SPUDDER PCP: Please see below. Thanks. Fatemeh Carbajal RN -- [employer] Work[employer] SPUDDER documented in this encounter Plan of Treatment Not on file documented as of this encounter Visit Diagnoses Not on filedocumented in this encounter Care Teams Blade Bender Furnace Tender Relationship Specialty Start Date End Date Raghavendra Deras MD PCP - General Family Practice 10/07/13 12/04/21 [place] [address] [place] [address] PCP - Assigned PCP 01/23/16 04/09/18 [place] [address] [place] [address] Assigned PCP 01/23/16 05/14/21 documented as of this encounter
--- OUTSIDE RECORDS SUMMARY | 2023-09-11 14:24 | XMS_ITS | Encounter Summary ---
Author Organization [facility] Address [facility] [place] [address] Care Team Providers Care Pet Supplies Salesperson Name Role Phone Nasir Velazquez MD Primary Care Provider Raghavendra Deras MD Primary Care Provider Raghavendra Deras MD Unavailable [phone] Raghavendra Deras MD Unavailable [phone] Encounter Details Date Type Department Care Team (Late st Contact Info) Description 09/08/2013 MyC Medical Advice [address] [address] Myriam Barrett, JOINT SEALER INSPECTOR CASING [address] [place] [address] [address] [place] [employer], [place] [address] Social History Tobacco Use Types Packs/Day Years Used Date Smoking Tobacco: Former Cigarettes Q uit: 02/06/1984 Smokeless Tobacco: Never Alcohol Use Standard Drinks/Week Comments Yes 1.7 (1 standard drink = 0.6 oz p ure alcohol) moderate Sex and Gender Information Value Date Recorded Sex Assigned at Male 01/15/2018 11:39 PM ALUMINUM CAN COLLECTOR Gender Identity Male 01/15/2018 11:39 PM ALUMINUM CAN COLLECTOR Sexual Orientation Straight 01/15/2018 11 :39 PM ALUMINUM CAN COLLECTOR documented as of this encounter Plan of Treatment Not on file documented as of this encounter Visit Diagnoses Not on filedocumented in this encounter Care Teams Pet Supplies Salesperson Relationship Specialty Start Date End Date Nasir Velazquez MD PCP - General 02/18/99 10/06/13 Raghavendra Deras MD PCP - General Family Practice 10/07/13 12/04/21 [place] [address] [place] [address] PCP - Assigned PCP 01/23/16 04/09/18 [place] [address] [place] [address] Assigned PCP 01/23/16 05/14/21 documented as of this encounter
--- OUTSIDE RECORDS SUMMARY | 2023-09-11 14:24 | XMS_ITS | Encounter Summary ---
Author Organization [facility] Address [address] [place], [place] [address]. [place] [address] Care Team Providers Care Bobbin Disker Name Role Phone Raghavendra Deras MD Primary Care Provider [phone] Raghavendra Deras MD Unavailable [phone] Encounter Details Date Type Department Care Team (Late st Contact Info) Description 03/04/2019 MyC Medical Advice [address] [address] Ariella Davidson Social History Tobacco [...] Sex Assigned at Male 01/15/2018 11:39 PM AIR CONTROL/ANTI AIR WARFARE OFFICER Gender Identity Male 01/15/2018 11:39 PM AIR CONTROL/ANTI AIR WARFARE OFFICER Sexual Orientation Straight 01/15/2018 11 :39 PM AIR CONTROL/ANTI AIR WARFARE OFFICER documented as of this encounter Plan of Treatment Not on file documented as of this encounter Visit Diagnoses Not on filedocumented in this encounter Care Teams Bobbin Disker Relationship Specialty Start Date End Date Raghavendra Deras MD PCP - General Family Practice 10/07/13 12/04/21 [place] [address] [place] [address] Assigned PCP 01/23/16 05/14/21 documented as of this encounter
--- OUTSIDE RECORDS SUMMARY | 2023-09-11 14:24 | XMS_ITS | Encounter Summary ---
Author Organization [place] Address [address] [place] [address]. [place] [address] Care Team Providers Care Electrical Maintenance Worker Name Role Phone Nasir Velazquez MD Primary Care Provider Raghavendra Deras MD Primary Care Provider [phone] Raghavendra Deras MD Unavailable [phone] Raghavendra Deras MD Unavailable Reason for Visit * Reason Onset Date Comments MyChart Communication 03/12/2009 Simvastati n and HCTZ Encounter Details Date Type Department Care Team (Late st Contact Info) Description 03/12/[address] [address] Nasir Velazquez MD [address] [place] [phone] MyChart Communication (Simvastatin and HCTZ) Social History Tobacco Use Types Packs/Day Years Used Date Smoking Tobacco: Former Cigarettes Q uit: 02/06/1984 Alcohol Use Standard Drinks/Week Comments Yes 1.7 (1 standard drink = 0.6 oz p ure alcohol) socially Sex and Gender Information Value Date Recorded Sex Assigned at Male 01/15/2018 11:39 PM STAFF DEVELOPMENT EDUCATOR Gender Identity Male 01/15/2018 11:39 PM STAFF DEVELOPMENT EDUCATOR Sexual Orientation Straight 01/15/2018 11 :39 PM STAFF DEVELOPMENT EDUCATOR documented as of this encounter Miscellaneous Notes * Telephone Encounter - Selene Raymond - 03/15/2009 11:12 AM CST Request from pt for refills of Zocor and HCTZ. Last refills 05/25/08 and last OV 10/19/08 with PCP.BP 146/80. FLP LDL 113, ALT WNL 10/19/08. K Cr WNL 10/19/08. Due for labs in April. Left note with refill to make appt. Per [facility] refill protocols, refills done. Selene Raymond RN F DEVELOPMENT EDUCATOR * Telephone Encounter - Selene Raymond - 03/15/2009 11:05 AM [facility] Terry Borges Winston would like a refill of the following medications: SIMVASTATIN 20 MG OR TABS [Nasir Velazquez MD] HYDROCHLOROTHIAZIDE 25 MG OR TABS [Nasir Velazquez MD] Preferred pharmacy: [facility] Comment: F DEVELOPMENT EDUCATOR documented in this encounter Plan of Treatment Not on file documented as of this encounter Visit Diagnoses Diagnosis Mixed hyperlipidemia Essential hypertension, benign documented in this encounter Care Teams Electrical Maintenance Worker Relationship Specialty Start Date End Date Nasir Velazquez MD PCP - General 02/18/99 10/06/13 Raghavendra Deras MD PCP - General Family Practice 10/07/13 12/04/21 [place] [address] [place] [address] PCP - Assigned PCP 01/23/16 04/09/18 [place] [address] [place] [address] Assigned PCP 01/23/16 05/14/21 documented as of this encounter
--- OUTSIDE RECORDS SUMMARY | 2023-09-11 14:24 | XMS_ITS | Encounter Summary ---
Author Organization [place] Address [address] [place] [address]. [place] [address] Care Team Providers Care Machine Splitter Name Role Phone Raghavendra Deras MD Primary Care Provider [phone] Raghavendra Deras MD Unavailable [phone] Reason for Visit * Reason Onset Date Comments Refill Request 03/16/2019 Encounter Details Date Type Department Care Team (Late st Contact Info) Description 03/16/2019 MyC Refill [address] [address] [place] [address] [place] [address] Refill Request Social History Tobacco Use Types Packs/Day Years Used Date Smoking Tobacco: Former Cigarettes 0.5 20 0 02/06/1964 - 02/06/1984 Smokeless Tobacco: Never Alcohol Use Standard Drinks/Week Comments Yes 1.7 (1 standard drink = 0.6 oz p ure alcohol) occasional PHQ-2 Answer Date Recorded PHQ-2 Score 0 03/19/2018 Sex and Gender Information Value Date Recorded Sex Assigned at Male 01/15/2018 11:39 PM DRUG INSPECTOR Gender Identity Male 01/15/2018 11:39 PM DRUG INSPECTOR Sexual Orientation Straight 01/15/2018 11 :39 PM DRUG INSPECTOR documented as of this encounter Plan of Treatment Not on file documented as of this encounter Visit Diagnoses Diagnosis Hyperlipidemia LDL goal <130 Other and unspecified hyperlipidemia documented in this encounter Care Teams Machine Splitter Relationship Specialty Start Date End Date Raghavendra Deras MD PCP - General Family Practice 10/07/13 12/04/21 [place] [address] [facility] [place] [address] Assigned PCP 01/23/16 05/14/21 documented as of this encounter
--- OUTSIDE RECORDS SUMMARY | 2023-09-11 14:24 | XMS_ITS | Encounter Summary ---
Author Organization [place] Address [address] [place] [address]. [place] [address] Care Team Providers Care Medical Apparatus Model Maker Name Role Phone Nasir Velazquez MD Primary Care Provider Raghavendra Deras MD Primary Care Provider [phone] Raghavendra Deras MD Unavailable [phone] Raghavendra Deras MD Unavailable [phone] Reason for Visit * Reason Onset Date Comments Patient Request 05/12/2008 Encounter Details Date Type Department Care Team (Late st Contact Info) Description 05/12/2008 MyC Medical Advice [address] [address] Nasir Velazquez MD [address] [place] [phone] Patient Request Social History Tobacco Use Types Packs/Day Years Used Date Smoking Tobacco: Former Cigarettes Q uit: 02/06/1984 Alcohol Use Standard Drinks/Week Comments Yes 1.7 (1 standard drink = 0.6 oz p ure alcohol) socially Sex and Gender Information Value Date Recorded Sex Assigned at Male 01/15/2018 11:39 PM EMPLOYEE ADVISER Gender Identity Male 01/15/2018 11:39 PM EMPLOYEE ADVISER Sexual Orientation Straight 01/15/2018 11 :39 PM EMPLOYEE ADVISER documented as of this encounter Miscellaneous Notes * Telephone Encounter - Nasir Velazquez - 05/12/2008 3:01 PM CDT This patient had been on Nexium 40mg, but omeprazole 20mg. As he is having breakthrough GERD symptoms on the omeprazole 20mg, we will send in for 40mg. OK to double up on medication in the meantime. Please send prescription to [facility] or local pharacy - whatever he prefers. * Telephone Encounter - Andrew Kraus - 05/12/2008 1:32 PM CDT It looks like this patient is on 20mg Once a day. Last OV 03/16/08. Is he suppose to be on a different dose. Andrew Kraus RN Last Refill: Medication Detail Medication Disp Refills Start End OMEPRAZOLE 20 MG OR CPDR 3 MONTHS 1 YEAR 04/15/2007 Sig: ONE DAILY Class: Fax Route: Oral Order: [id number] * Telephone Encounter - Andrew Kraus - 05/12/2008 1:27 PM CDTStaff Message copied by ANDREW KRAUS on SunMay 12, 2008 1:27 PM ------ Message from: JULIET DUNCAN Created: SunMay 12, 2008 12:35 PM Regarding: sb/questions on his rx omperazole Contact: Pt has two questions regarding his rx for omperazole, first he needs a refill and he is not sure ifhe needs to make appt in order to get the refill, Second question is when he thinks it should be 40mg instead of 20, his old rx was for 40mg. Please call pt at [phone]. Pt states it is okay to leave detail message on voice mail. documented in this encounter Plan of Treatment Not on file documented as of this encounter Visit Diagnoses Diagnosis Esophageal reflux HYPERTROPHY of PROSTATE Hypertrophy of prostate without urinary obstruction and other lower urinary tract symptoms (LUTS) documented in this encounter Care Teams Medical Apparatus Model Maker Relationship Specialty Start Date End Date Nasir Velazquez MD PCP - General 02/18/99 10/06/13 Raghavendra Deras MD PCP - General Family Practice 10/07/13 12/04/21 [place] [address] [place] [address] PCP - Assigned PCP 01/23/16 04/09/18 [place] [address] [place] [address] Assigned PCP 01/23/16 05/14/21 documented as of this encounter
--- OUTSIDE RECORDS SUMMARY | 2023-09-11 14:24 | XMS_ITS | Encounter Summary ---
Author Organization [place] Address [address] [place] [address]. [place] [address] Care Team Providers Care Computer Operator Name Role Phone Raghavendra Deras MD Primary Care Provider [phone] Raghavendra Deras MD Unavailable [phone] Raghavendra Deras MD Unavailable [phone] Encounter Details Date Type Department Care Team (Late st Contact Info) Description 11/17/2013 MyC Medical Advice [address] [address] [place] [address] [place] [address] Social History Tobacco Use Types Packs/Day Years Used Date Smoking Tobacco: Former Cigarettes Q uit: 02/06/1984 Smokeless Tobacco: Never Alcohol Use Standard Drinks/Week Comments Yes 1.7 (1 standard drink = 0.6 oz p ure alcohol) moderate Sex and Gender Information Value Date Recorded Sex Assigned at Male 01/15/2018 11:39 PM COMMUNICATIONS TOWER TECHNICIAN Gender Identity Male 01/15/2018 11:39 PM COMMUNICATIONS TOWER TECHNICIAN Sexual Orientation Straight 01/15/2018 11 :39 PM COMMUNICATIONS TOWER TECHNICIAN documented as of this encounter Plan of Treatment Not on file documented as of this encounter Visit Diagnoses Not on filedocumented in this encounter Care Teams Computer Operator Relationship Specialty Start Date End Date Raghavendra Deras MD PCP - General Family Practice 10/07/13 12/04/21 [place] [address] [facility] [place] [id number] PCP - Assigned PCP 01/23/16 04/09/18 [place] [address] [place] [id number] Assigned PCP 01/23/16 05/14/21 documented as of this encounter
--- OUTSIDE RECORDS SUMMARY | 2023-09-11 14:25 | XMS_ITS | Encounter Summary ---
Author Organization [place] Address [id number] [place] [address] Care Team Providers Care Analytical Data Miner Name Role Phone Nasir Velazquez MD Primary Care Provider Raghavendra Deras MD Primary Care Provider [phone] Raghavendra Deras MD Unavailable [phone] Raghavendra Deras MD Unavailable [phone] Encounter Details Date Type Department Care Team (Late st Contact Info) Description 09/20/2005 MyC Medical Advice [address] [address] Nasir Velazquez MD [address] [place] [phone] Social History Tobacco Use Types Packs/Day Years Used Date Smoking Tobacco: Former Cigarettes Q uit: 02/06/1984 Alcohol Use Standard Drinks/Week Comments Yes 1.7 (1 standard drink = 0.6 oz p ure alcohol) socially Sex and Gender Information Value Date Recorded Sex Assigned at Male 01/15/2018 11:39 PM MICROSOFT NET DEVELOPER Gender Identity Male 01/15/2018 11:39 PM MICROSOFT NET DEVELOPER Sexual Orientation Straight 01/15/2018 11 :39 PM MICROSOFT NET DEVELOPER documented as of this encounter Plan of Treatment Not on file documented as of this encounter Visit Diagnoses Not on filedocumented in this encounter Care Teams Analytical Data Miner Relationship Specialty Start Date End Date Nasir Velazquez MD PCP - General 02/18/99 10/06/13 Raghavendra Deras MD PCP - General Family Practice 10/07/13 12/04/21 [place] [address] [place] [address] PCP - Assigned PCP 01/23/16 04/09/18 [place] [address] [place] [address] Assigned PCP 01/23/16 05/14/21 documented as of this encounter
--- OUTSIDE RECORDS SUMMARY | 2023-09-11 14:25 | XMS_ITS | Encounter Summary ---
Author Organization [place] Address [address] [place] [address] Care Team Providers Care Critical Care Unit Manager Name Role Phone Nasir Velazquez MD Primary Care Provider Raghavendra Deras MD Primary Care Provider [phone] Raghavendra Deras MD Unavailable [phone] Raghavendra Deras MD Unavailable [phone] Encounter Details Date Type Department Care Team (Late st Contact Info) Description 08/30/2005 MyC Medical Advice [facility] [address] [place] [address] [place] [address] [place] [address] BENIGN HYPERTENSION; MIXED HYPERLIPIDEMIA Social History Tobacco Use Types Packs/Day Years Used Date Smoking Tobacco: Former Cigarettes Q uit: 02/06/1984 Alcohol Use Standard Drinks/Week Comments Yes 1.7 (1 standard drink = 0.6 oz p ure alcohol) socially Sex and Gender Information Value Date Recorded Sex Assigned at Male 01/15/2018 11:39 PM COLLEGE ARCHIVIST Gender Identity Male 01/15/2018 11:39 PM COLLEGE ARCHIVIST Sexual Orientation Straight 01/15/2018 11 :39 PM COLLEGE ARCHIVIST documented as of this encounter Plan of Treatment Not on file documented as of this encounter Visit Diagnoses Diagnosis Essential hypertension, benign Mixed hyperlipidemia documented in this encounter Care Teams Critical Care Unit Manager Relationship Specialty Start Date End Date Nasir Velazquez MD PCP - General 02/18/99 10/06/13 Raghavendra Deras MD PCP - General Family Practice 10/07/13 12/04/21 [place] [address] [place] [address] PCP - Assigned PCP 01/23/16 04/09/18 [place] [address] [place] [address] Assigned PCP 01/23/16 05/14/21 documented as of this encounter
--- OUTSIDE RECORDS SUMMARY | 2023-09-11 14:25 | XMS_ITS | Encounter Summary ---
Author Organization [place] Address [address] [facility] [place] [address] Care Team Providers Care Tip Scourer Name Role Phone Nasir Velazquez MD Primary Care Provider Raghavendra Deras MD Primary Care Provider Raghavendra Deras MD Unavailable [phone] Raghavendra Deras MD Unavailable [phone] Encounter Details Date Type Department Care Team (Late st Contact Info) Description 02/04/2005 MyC Medical Advice [facility] [id number] [place] [address] [place] [address] [place] [address] Social History Tobacco Use Types Packs/Day Years Used Date Smoking Tobacco: Former Cigarettes Q uit: 02/06/1984 Alcohol Use Standard Drinks/Week Comments Yes 1.7 (1 standard drink = 0.6 oz p ure alcohol) socially Sex and Gender Information Value Date Recorded Sex Assigned at Male 01/15/2018 11:39 PM FAMILY AND CONSUMER SCIENCE PROFESSOR Gender Identity Male 01/15/2018 11:39 PM FAMILY AND CONSUMER SCIENCE PROFESSOR Sexual Orientation Straight 01/15/2018 11 :39 PM FAMILY AND CONSUMER SCIENCE PROFESSOR documented as of this encounter Plan of Treatment Not on file documented as of this encounter Visit Diagnoses Not on filedocumented in this encounter Care Teams Tip Scourer Relationship Specialty Start Date End Date Nasir Velazquez MD PCP - General 02/18/99 10/06/13 Raghavendra Deras MD PCP - General Family Practice 10/07/13 12/04/21 [place] [address] [place] [address] PCP - Assigned PCP 01/23/16 04/09/18 [place] [address] [place] [address] Assigned PCP 01/23/16 05/14/21 documented as of this encounter
--- OUTSIDE RECORDS SUMMARY | 2023-09-11 14:25 | XMS_ITS | Encounter Summary ---
Author Organization [place] Address [address] [facility] [place] [address] Care Team Providers Care Clinical Associate Name Role Phone Nasir Velazquez MD Primary Care Provider Raghavendra Deras MD Primary Care Provider Raghavendra Deras MD Unavailable [phone] Raghavendra Deras MD Unavailable [phone] Encounter Details Date Type Department Care Team (Late st Contact Info) Description 01/09/2003 [facility] [address] [place] [id number] [place] [address] [place] [address] CHEST PAIN NOS (Primary Dx); MIXED HYPERLIPIDEMIA ; BENIGN HYPERTENSION ; MIXED HYPERLIPIDEMIA; AFTERCARE FDC USE MEDICATN Social History Tobacco Use Types Packs/Day Years Used Date Smoking Tobacco: Former Cigarettes 0.5 20 0 02/06/1964 - 02/06/1984 Smokeless Tobacco: Never Alcohol Use Standard Drinks/Week Comments Yes 1.7 (1 standard drink = 0.6 oz p ure alcohol) occasional Sex and Gender Information Value Date Recorded Sex Assigned at Male 01/15/2018 11:39 PM PSYCHOMETRIST Gender Identity Male 01/15/2018 11:39 PM PSYCHOMETRIST Sexual Orientation Straight 01/15/2018 11 :39 PM PSYCHOMETRIST documented as of this encounter Progress Notes * [facility]2003 [facility] STRESS E[facility] REPORT Terry Montero : [...] were obtained, and appeared normal to the operations technician, but formal interpretation is left to the Wool Batting Worker. Assessment: 1) Negative subjective stress EKG 2) Negative objective stress EKG 3) Echo report from Wool Batting Worker is pending 4) Risk factors for coronary artery disease include:hyperlipidemia, hypertension and sedentary lifestyle 5) Recommendations for follow up include: Work on diet and aerobic exercise program & start HMGCoA medication. recheck lipid & liver profile tests in four to six weeks. We will check his blood pressure at that time (just went on HCTZlast week for hypertension). Signed: Diogo Velazquez MD documented in this encounter Plan of Treatment Not on file documented as of this encounter Visit Diagnoses Diagnosis Chest pain, unspecified- Primary MIXED HYPERLIPIDEMIA Mixed hyperlipidemia BENIGN HYPERTENSION Essential hypertension, benign Encounter for long-term (current) use of other medications documented in this encounter Care Teams Clinical Associate Relationship Specialty Start Date End Date Nasir Velazquez MD PCP - General 02/18/99 10/06/13 Raghavendra Deras MD PCP - General Family Practice 10/07/13 12/04/21 [place] [address] [place] [address] PCP - Assigned PCP 01/23/16 04/09/18 [place] [address] [place] [address] Assigned PCP 01/23/16 05/14/21 documented as of this encounter
--- NOTE | 2023-09-11 14:30 | MR_ITS ---
[facility] [address] [facility] [address] Phone:?[phone] Fax:?[phone] Referring Physician Information: Alex Wynne M.D. [address] [facility] [address] Phone:?[phone] Fax:?[phone] Patient:Cheryl Montero D.O.B:?1945 Sex:?Male Phone:?[phone] [facility] MRN:?[id number] Exam Date:?09/11/2023 EXAM: MRI of the RIGHT KNEE, without contrast CLINICAL HISTORY: Concern for right fibular fracture. Right knee pain. COMPARISONS: Plain radiographs 08/14/2023. Plain radiographs 12/12/2022. Plain radiographs 10/31/2018. MRI 02/06/2019. TECHNICAL: MR sequences of the right knee: sagittals: PD, PDFS coronals: PD, STIR axials: PD, T2 FS CONTRAST: None SEDATION: None FINDINGS: Bones: No fracture or destructive osseous lesion. 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 Retinacula: The medial and lateral retinacula are intact. Fat pads: The infrapatellar, quadriceps, and prefemoral fat pads are unremarkable. Knee joint: Effusion: Physiologic amount of joint fluid. Popliteal cyst: Small popliteal cyst. Intra-articular bodies: 5 x 2 mm intra-articular body posterior to the posterior cruciate ligament, unchanged compared to previous MRI 02/06/2019. Posteromedial corner: The semimembranosus and pes anserine tendons are intact. Medial compartment: Medial meniscus: Markedly complex tear from the body through posterior root of the medial meniscus, moderately progressed in extent and complexity compared to previous MRI 02/06/2019. Marked medial meniscal extrusion. Cartilage: Diffuse grade II and III chondral thinning over the weight-bearing portion of the medial femoral condyle, mildly progressed compared to previous MRI 02/06/2019. Lateral compartment: Lateral meniscus: Free edge fraying versus ill-defined free edge tearing of the body and posterior horn of the lateral meniscus, mildly progressed compared to previous MRI 02/06/2019. Cartilage: Intact. Ligaments: Anterior cruciate ligament: Intrasubstance ganglion, new compared to previous MRI 02/06/2019. No discrete ligamentous tear or acute ligamentous injury. Posterior cruciate ligament: Intact. Medial collateral ligament: Intact. Posterior oblique ligament: Intact. Fibular collateral ligament: Intact. Posterolateral corner: The distal biceps femoris tendon, iliotibial band, popliteus tendon, popliteus muscle, popliteofibular ligament, and arcuate ligament are intact. Extensor mechanism: Patellar tendon: Intact. Quadriceps tendon: Intact. IMPRESSION: 1. Markedly complex tear from the body through posterior root of the medial meniscus, moderately progressed in extent and complexity compared to previous MRI 02/06/2019. Marked medial meniscal extrusion. 2. Free edge fraying versus ill-defined free edge tearing of the body and posterior horn of the lateral meniscus, mildly progressed compared to previous MRI 02/06/2019. 3. 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 4. Diffuse grade II and III chondral thinning over the weight-bearing portion of the medial femoral condyle, mildly progressed compared to previous MRI 02/06/2019. 5. 5 x 2 mm intra-articular body posterior to the posterior cruciate ligament, unchanged compared to previous MRI 02/06/2019. 6. Intrasubstance anterior cruciate ligament ganglion, new compared to previous MRI 02/06/2019. No discrete ligamentous tear or acute ligamentous injury. 7. Small popliteal cyst. RCB Electronically signed on 09/11/2023 4:24:00 PM by Prosper Garcia M.D.
== END 2023-09-11 14:22 | disposition home or self-care (01) ==
PROVIDERS: PCP Family Medicine; Visit Provider Orthopaedic Surgery Sports Medicine
DX: M25.561 Pain in right knee (principal); S82.831A Other fracture of upper and lower end of right fibula, initial encounter for closed fracture; S83.231A Complex tear of medial meniscus, current injury, right knee, initial encounter; S83.281A Other tear of lateral meniscus, current injury, right knee, initial encounter; M22.41 Chondromalacia patellae, right knee; M71.21 Synovial cyst of popliteal space [Baker], right knee
CPT/HCPCS: 73721

== ENCOUNTER 2023-11-20 14:00 | Outpatient (RCR) | payer MEDICARE, SELFPAY ==
--- NOTE | 2023-10-29 15:23 | PT.OPE ---
[facility] Eval PT [facility] Outpatient Eval Start: 10/29/23 12:49 Freq: Status: Active Protocol: Document 10/29/23 15:22 CJT (Rec: 10/29/23 15:23 CJT [id number]) E-signed By Jose Kim PT Physical Therapy Outpatient Evaluation Insurance Information Recert Due Date 01/27/24 Insurance Name Medicare B Medical Diagnosis R knee pain Treating Diagnosis R knee pain Referring Gerard Del Rio MD Subjective Preferred Name Carlos Subjective Pt presents with R leg pain. Pts pain is just lateral and distal to pts R knee. Pt points to the lateral gastroc and fibular head as the source of his pain. Pt denies injury to the area. Pain began at the beginning of this past summer. His pain is sharp, intermittent, and relieves with rest. His pain increases throughout the day when he spends time on his feet. Was out working in the yard this pat weekend and R leg became very aggravated and painful towards the end of each day. Ice seems to help but has not helped the pain go away entirely. Pt feels this issue is getting worse. Pain Comments Date of Last Physician Visit 10/26/23 Current Work Status Retired Precautions Therapy Limitations/Systems Review Not Limited Objective Other/Pertinent Objective R knee ROM - 0-0-115 *pain limits R knee flexion L knee ROM - 0-0-130 R ankle AROM Plantarflexion: 55 Dorsiflexion (knee flexed): 17 Dorsiflexion (knee extended): 12 R Hip Strength - grossly 5/5 MMT for all L Hip Strength - grossly 5/5 MMT for all R knee Extension - 5/5 MMT R Knee Flexion - 4/5 MMT * limited by pain in posterior knee L knee Extension - 5/5 MMT L knee Flexion - 5/5 MMT R ankle DF - 5/5 MMT L ankle DF - 5/5 MMT R ankle PF: pt able to perform SL heel raises without discomfort L ankle PF: 5/5 MMT Palpation: pt reports pain/ tenderness with palpation to posterior fibular head at soleus origin, biceps femoris insertion Gait: antalgic favoring R Special Testing: Varus Stress: negative Valgus stress: positive for audible click at R MCL Rosalba's: positive for pain with R leg IR and ER Assessment Assessment/Impression Carlos is a very pleasant 78 year old male who presents to our clinic for evaluation and treatment of R leg pain. Pts pain is of the posterior aspect of his R fibular head. the tissue is soft and painful to palpation. Pt does also have some tenderness and pain with palpation to the lateral gastroc head. While a diagnosis is not clear at this time, I do feel that Carlos likely strained his soleus earlier this summer and has been consistently aggravating the strain with his level of activity. I encouraged he stretch these tissues as well as perform strengthening exercises, as well as perform ice massage and self massage with his hands to this region to facilitate blood flow to promote healing. The nature of the pts condition was explained and all questions were answered to the pts satisfaction. Skilled PT services are medically necessary to address deficits and return patient to highest level of function. Recommend physical therapy sessions 1/ week for 4 weeks. Pt agrees with this plan. Printout of HEP was given for I completion and pt gives verbal understanding of each exercise . Primary Functional Limitations Walking, stairs Plan of Care Rehabilitation Potential Fair Physical Therapy Goals STG - To be completed in 2-3 weeks: 1. Pt will report reduction in R posterior leg pain by factor of 2 with walking so that he may go for walks with his for exercise and pleasure. 2. Pt will demonstrate 5/5 MMT for R hamstring without reproduction of pain. LTG - To be completed in 4-8 weeks: 1. Pt to be I with HEP so that he may I manage progression of symptoms. 2. Pt will report ability to work out in his yard with max 2/10 pain in R leg so that he may complete his daily chores with manageable level of pain. Treatment Plan/Direct Interventions Electrical Stimulation,Gait Training,Heat,Ice/Cold/ Vasopneumatic,Joint Mobilization,Manual Therapy, Neuromuscular Re-ed,Self-Care/ Home Management,Therapeutic Activities,Therapeutic Exercises,Ultrasound Frequency/Duration 1/week for 4 weeks Patient Will Be Discharged From Therapy Completion of LTG(s),Skills Plateau,Independent w/HEP, Independently Progressing Evaluation Billing Untimed Code Treatment Minutes 40 PT Eval No Charge No Complexity Low Certification Information Initial Certification Date 10/29/23 Ending Certification Date 01/27/24 Provider Signature Required Yes Provider Signature Shows Agreement With POC & Medical Necessity Physician NPI Number Write NPI# Here Physician Comment/Change : Physician Signature & Date Requested Please Sign/Date Here
--- NOTE | 2023-11-20 14:45 | PT.OPDN ---
PT [facility] Outpatient Daily Note PT [facility] Outpatient Daily Note Start: 10/29/23 12:49 Freq: Status: Active Protocol: Document 11/20/23 13:59 CJT (Rec: 11/20/23 14:45 CJT [id number]) E-signed By Jose Kim, PT PT OP Daily Progress Note Visit Information Note Type Daily Note Visit Number 4 Physician Authorized Visits eval and treat Insurance Information Recert Due Date 01/27/24 Insurance Name Medicare B Medical Diagnosis R knee pain Treating Diagnosis R knee pain Referring MD Huggins, Gerard SALDIVAR Subjective Preferred Name Carlos Parsons Pt complains of pain in the posterior knee with sitting in his car and has been having radiating to the front of his knee. Sitting has been most bothersome for him. Date of Last Physician Visit 10/26/23 Home Exercise Home Exercise Comments Access Code: [email or web address] URL: [email or web address] Date: 10/29/2023 Prepared by: Jose Kim Exercises - Gastroc Stretch on Wall - 2 x daily - 7 x weekly - 1 sets - 30-60 seconds hold - Soleus Stretch on Wall - 2 x daily - 7 x weekly - 1 sets - 30-60 seconds hold - Standing Heel Raise - 2 x daily - 7 x weekly - 1-2 sets - 15-20 reps - Supine Bridge - 1 x daily - 7 x weekly - 2 sets - 10-15 reps Objective Other/Pertinent Objective Rosalba's: positive with IR and ER of lower leg Patient Instructed in Risks/Benefits Yes Therapeutic Exercise Therapeutic Exercise Minutes (minutes) 18 Therapeutic Exercise: To Restore Bike - 7 minutes Functional Status Gastroc stretch on slant board 2 x 60 Heel raises with hands at counter 3 x 20 Manual Therapy Techniques Manual Therapy Minutes (minutes) 20 Manual Therapy Techniques STM to R gastroc, soleus, distal biceps femoris tendon, posterior aspect of R fibular head to facilitate bloodflow to promote healing. Treatment Minutes Timed Code Treatment Minutes 38 Total Treatment Time 38 Billing Units Manual Therapy Units 2 Therapeutic Exercise Units 1 Assessment/Impression Assessment/Impression Pt continues to note high level of pain in his R fibular head that seems to fluctuate without changes in his activity. Pts pain is made worse with resisted knee flexion and much worse if his hip is internally rotated. At this time I do feel that physical therapy should be discontinued and pt should return to orthopedics for further evaluation. We have tried exercise, STM, ultrasound, and ice massage, all with minimal and non- lasting relief. I am concerned for stress fracture at the R fibular head/neck at this time although pts imaging for this is negative. Pt does experience high amount of pain with Rosalba's but it is difficult to say if the pain he experiences with testing is due to his meniscal pathology or other source. Pts chart will be held 30 days in case of need for additional therapy . Plan of Care Physical Therapy Goals STG - To be completed in 2-3 weeks: 1. Pt will report reduction in R posterior leg pain by factor of 2 with walking so that he may go for walks with his for exercise and pleasure. 2. Pt will demonstrate 5/5 MMT for R hamstring without reproduction of pain. LTG - To be completed in 4-8 weeks: 1. Pt to be I with HEP so that he may I manage progression of symptoms. 2. Pt will report ability to work out in his yard with max 2/10 pain in R leg so that he may complete his daily chores with manageable level of pain. Daily Plan of Care Comments Hold chart.
== END 2024-02-13 15:58 | disposition home or self-care (01) ==
PROVIDERS: PCP Family Medicine; Visit Provider Family Medicine
DX: M25.561 Pain in right knee (principal); Z51.89 Encounter for other specified aftercare
CPT/HCPCS: 97032; 97110; 97140; 97161

== ENCOUNTER 2024-01-16 09:05 | Outpatient (CLI) | payer MEDICARE, SELFPAY | END 2024-01-16 09:06 | disposition home or self-care (01) | LOC: NFLDREF 01-17 11:46 | PROVIDERS: PCP Family Medicine; Referring Provider Family Medicine; Visit Provider Family Medicine | DX: I10 Essential (primary) hypertension (principal); N40.0 Benign prostatic hyperplasia without lower urinary tract symptoms; D64.9 Anemia, unspecified; Z13.220 Encounter for screening for lipoid disorders; Z12.5 Encounter for screening for malignant neoplasm of prostate | CPT/HCPCS: 80053; 80061; 82607; 82728; 83540; 83550; G0103 ==